=== PATIENT | male | born 1970 | race Caucasian/White ===

== ENCOUNTER 2016-07-31 14:01 | Inpatient (IN) | payer OTHER ==
[~2016-07-31] VITALS: Ht 177.8 cm; Wt 85.0 kg
[2016-07-31] MEDS ORDERED: SOD CHLORIDE 0.9% 1,000 ML IV STA ×3 (14:03→15:07)
[2016-07-31] MEDS ORDERED: CEFEPIME 2GM/50 ML (PMX) 50 ML IVPB STA (14:03)
[2016-07-31] MEDS ORDERED: VANCOMYCIN 1 GM (PMX) 250 ML IVPB ONE (14:30)
[2016-07-31] MEDS ORDERED: ONDANSETRON 4 MG INJ IV PRN ×2 (14:30→15:00)
[2016-07-31] MEDS ORDERED: ACETAMINOPHEN 325 MG TAB PO PRN (14:30)
--- NOTE | 2016-07-31 14:36 | CONS ---
Date/Time of Note Date/Time of Note DATE: 07/31/16 TIME: 14:31 Assessment/Plan Assessment/Plan Additional Assessment/Plan Sepsis Tachycardia and hypotension C2 fracture and quadriplegic Respiratory failure Decubiti -Patient with hypotension and tachycardia likely secondary to sepsis. Patient to receive aggressive IV hydration, broad-spectrum antibiotics, withhold any antihypertensives. Labs are currently pending. Consultation Date/Type/Reason Admit Date/Time Type of Consultation: cv Reason for Consultation Hypotension Hx of Present Illness This is a 46-year-old male with unfortunate history of C2 fracture and is quadriplegic, respiratory failure who presents with fevers hypotension and tachycardia. Patient with known decubiti and as per the staff, there is evidence of drainage and possible worsening infection. He is complaining of shortness of breath but denies chest pain, abdominal pain. Unable to be performed at the current time given patient's waxing mental status Past Medical History C2 fracture with quadriplegia Respiratory failure Decubiti Past Surgical History Tracheostomy PEG placement Spinal surgery Family History Significant Family History: no pertinent family hx Social History Alcohol Use: none Smoking Status: Former smoker Other Social History From halfway facility Exam/Review of Systems Vital Signs Vitals Vital Signs Date Time Temp Pulse Resp B/P Pulse Ox O2 Delivery O2 Flow Rate FiO2 07/31/16 14:22 133 20 100 35 Exam Awake but waxing mental status, no apparent distress Head: normocephalic Neck: other (C-collar, tracheostomy) Respiratory: other (Coarse breath sounds bilaterally, no wheezing) Cardiovascular: other (S1-S2 heard), regular rate and rhythm (Tachycardic) Gastrointestinal: bowel sounds, non-tender, other (No guarding), soft Extremities: edema (Trace) Medications Medications Current Medications Vancomycin HCl (Vancocin) 250 ml @ 125 mls/hr ONCE ONCE IVPB ; Start 07/31/16 at 14:30; Stop 07/31/16 at 16:29 Procedures Procedures Telemetry with sinus tachycardia in the 130s Kb Barrett DO Jul 31, 2016 14:36
[2016-07-31 14:39] LABS: AADO2 Arterial 221.6 mmHg (7.0-24.0); Arterial Base Excess 2.4 mmol/L (-3.0-3); Arterial COHb 0.3 % (0.0-3.0); Arterial Fraction of Oxyhgb 96.6 % (93.0-99.0); Arterial HCO3 25.7 mmol/L (22.0-26.0); Arterial MetHb 0.4 % (0.0-1.5); Arterial Total Hemglobin 10.3 g/dl (12.0-18.0); MODE VENT - AC
[2016-07-31] MEDS ORDERED: CALC500T91 GTB (14:51)
[2016-07-31 14:52] LABS: ADD SCAN DIFF NO
[2016-07-31] MEDS ORDERED: HYDR-902 GTB (14:52)
[2016-07-31] MEDS ORDERED: FERR220S2 GTB (14:52)
[2016-07-31] MEDS ORDERED: LEVEM SC (14:55)
--- NOTE | 2016-07-31 14:55 | ERA ---
ER Documentation Chief Complaint Date/Time DATE: 07/31/16 TIME: 14:52 Chief Complaint coming from private subacute had fever HPI Patient is a 46-year-old male with C2 quadriplegia who presents with fever. He was diaphoretic. Please note the history and physical exam is limited as the patient has difficulty with speaking due to a C2 quadriplegia. He was brought in by ambulance. He does have a wound VAC in place which has been putting out drainage. Upon review of old medical records this is the patient's first visit to the emergency department. His primary doctor is Dr. Nii Choudhary. He came from a nursing facility. ROS All systems reviewed and are negative except as per history of present illness. Medications Home Meds Reported Medications Ferrous Sulfate (Ferrous Sulfate) 220 Mg/5 Ml Solution, 325 MG GTB TID 07/31/16 Calcium Carbonate ([id number]) 500 Mg Tablet, 500 MG GTB BID, TAB 07/31/16 Allergies Allergies: Coded Allergies: No Known Allergy (Unverified , 07/31/16) PMhx/Soc C2 quadriplegia Smoking Status: Former smoker FmHx Family History: No diabetes Physical Exam Vitals Vital Signs Date Time Temp Pulse Resp B/P Pulse Ox O2 Delivery O2 Flow Rate FiO2 07/31/16 14:50 101.6 122 16 88/67 100 07/31/16 14:22 133 20 100 35 Physical Exam Const: Severe diaphoresis Head: Atraumatic Eyes: Normal Conjunctiva ENT: Normal External Ears, Nose and Mouth. Neck: Full range of motion..~ No meningismus. Resp: Clear to auscultation bilaterally Cardio: Tachycardic rate without murmur Abd: Soft, non tender, non distended. Normal bowel sounds Skin: Severe diaphoresis with pale skin Back: No midline or flank tenderness Ext: No cyanosis, or edema Neur: Awake but is a quadriplegic at baseline Results 24 hrs Laboratory Tests Test 07/31/16 14:09 Arterial Blood HCO3 25.7mmol/L Arterial Blood Base Excess 2.4mmol/L Arterial Blood Oxygen Saturation 97.3mmHG Colton Test N/A Arterial Blood Gas Puncture Site Right Brachial Arterial Blood Carboxyhemoglobin 0.3% Arterial Blood Date Drawn 07/31/2016 2:28:36 PM Arterial Blood Methemoglobin 0.4% Arterial Blood pCO2 (Temp correct) 34.8mmhg Arterial Blood pH (Temp corrected) 7.486 Arterial Blood pO2 (Temp corrected) 95.8mmHG Blood Gas A-a O2 Differential 221.6mmHg Blood Gas Actual Respiration Rate 20 Blood Gas Modality VENT - AC Blood Gas Notified Time 07/31/2016 2:39:17 PM Blood Gas Notified Whom TM Blood Gas Respiration Rate 20.0 Blood Gas Specimen Source Blood arterial Blood Gas Temperature 37.0C Blood Gas Tidal Volume 650.0mL FiO2 50.0% Oxyhemoglobin Percent 96.6% Total Hemoglobin 10.3g/dl Current Medications Medications (Trade) Dose Ordered Sig/Igor Route PRN Reason Start Time Stop Time Status Last Admin Dose Admin Cefepime HCl 50 ml @ 100 mls/hr ONCE STAT IVPB 07/31/16 14:03 07/31/16 14:32 DC Vancomycin HCl 250 ml @ 125 mls/hr ONCE ONCE IVPB 07/31/16 14:30 07/31/16 16:29 Sodium Chloride 1,000 ml @ 1,000 mls/hr Q1H STAT IV 07/31/16 14:03 07/31/16 15:02 Sodium Chloride (NS) 1,000 ml @ 1,000 mls/hr Q1H STAT IV 07/31/16 14:03 07/31/16 15:02 Ondansetron HCl (Zofran Inj) 4 mg ER BRIDGE PRN IV NAUSEA AND/OR VOMITING 07/31/16 14:30 08/01/16 14:29 Acetaminophen (Tylenol Tab) 650 mg ER BRIDGE PRN PO MILD PAIN/FEVER 07/31/16 14:30 08/01/16 14:29 Procedures/MDM EKG read by me: Rate/Rhythm: Sinus tachycardia Intervals: Normal Impression: Tachycardia without ischemia Chest x-ray is pending at this time. Admit MDM: Patient's infectious symptoms have not stabilized and the patient is at risk of rapid decompensation. The patient will be admitted for careful hydration, antibiotic therapy, and infectious source control. Severe Sepsis criteria: Infectious source: Decubitus ulcer, infected End organ damage indicated by: Respiratory failure Sepsis Management: Time of recognition of sepsis: Upon arrival Within 3 hours of recognition: Blood cultures x 2 before broad-spectrum antibiotics: Yes 30 ml/kg NS bolus Completed Initial lactate pending Repeat lactate pending Time of recognition of septic shock: No septic shock Septic Shock Assessment: Any lactic acid > 4.0 No Persistent hypotension (SBP < 90 or 40 mmHg drop, MAP < 65) despite 30 mL/kg IV fluid bolus No Volume Re-assessment for Septic Shock (post 30 ml/kg bolus): No septic shock at this time Persistent Hypotension Treatment: Comfort care No Central line Not Required Vasopressor started Not required I considered further perfusion assessment with CVP measurement, SCVO2, bedside ultrasound volume assessment, passive leg raise, trial of further fluid bolus. And proceeded with 30 ml/kg fluid bolus of NSS, broad spectrum antibiotics, and admission. Accepting Care Team Current data and ongoing care discussed. Admitting Physician: Dr. Potts as the patient has never been admitted before and Dr. Nii Choudhary is the primary doctor who admits to the panel team Helper Marble Finisher(s): Dr. Barber who knows the patient well will see the patient at the bedside Outstanding Data: Culture results and lactic acid results, electrolytes, chest x-ray Critical Care: Critical care time 35 minutes excluding all billable procedures Emergent fluid management while maintaining close respiratory support. Provision of immediate and broad-spectrum antibiotic therapy. Simultaneous assessment for possible sources in order to direct targeted therapy. Consideration for invasive and chemical support to prevent cardiopulmonary collapse. Departure Diagnosis: Primary Impression: Sacral decubitus ulcer Qualified Code: L89.159 - Sacral decubitus ulcer, unspecified pressure ulcer stage Additional Impression: Severe sepsis Condition: Serious FARHAN SUNSHINE MD Jul 31, 2016 14:55
[2016-07-31] MEDS ORDERED: INSU100V3 IJ (14:58)
[2016-07-31] MEDS ORDERED: MAGNESIUM HYDROXIDE 30ML CUP PO PRN (15:00)
[2016-07-31] MEDS ORDERED: NA PHOSPHATE/BIPHOS 133 ML ENEMA PR PRN (15:00)
[2016-07-31] MEDS ORDERED: NITROGLYCERIN (SL) 0.4 MG TAB SL PRN (15:00)
[2016-07-31] MEDS ORDERED: ALBUTEROL/IPRATROPIUM (NEB) 3 ML AMP HHN PRN (15:00)
[2016-07-31] MEDS ORDERED: VANCOMYCIN IV PER PHARMACY XX SCH (15:00)
[2016-07-31] MEDS ORDERED: hydrALAzine 20 MG INJ IV PRN (15:00)
[2016-07-31] MEDS ORDERED: DOCUSATE SODIUM 100 MG CAP PO PRN (15:00)
[2016-07-31] MEDS ORDERED: NACL 0.9% 3 ML SYG IV SCH (15:00)
[2016-07-31 15:04] LABS: INR 1.19; PROTIME 15.2 Sec (12.2-14.2); PT RATIO 1.2
[2016-07-31 15:17] LABS: BASOPHILS % 0.2 % (0.0-2.0); EOSINOPHILS # 0.1 10^3/ul (0.0-0.5); EOSINOPHILS % 0.4 % (0.0-7.0); HEMATOCRIT 28.4 % (42.0-52.0); HEMOGLOBIN 8.7 g/dl (14.0-18.0); LYMPHOCYTES # 0.8 10^3/ul (0.8-2.9); LYMPHOCYTES % 4.8 % (15.0-51.0); MEAN CORPUSCULAR HEMOGLOBIN 24.8 pg (29.0-33.0); MEAN CORPUSCULAR HGB CONC 30.6 g/dl (32.0-37.0); MEAN CORPUSCULAR VOLUME 80.9 fl (82.0-101.0); MEAN PLATELET VOLUME 10.2 fl (7.4-10.4); MONOCYTE # 0.7 10^3/ul (0.3-0.9); NEUTROPHILS % 87.9 % (39.0-77.0); PLATELET COUNT 449 10^3/UL (140-415); RED BLOOD COUNT 3.51 10^6/ul (4.70-6.10); RED CELL DISTRIBUTION WIDTH 15.9 % (11.5-14.5); WHITE BLOOD COUNT 17.1 10^3/ul (4.8-10.8)
[2016-07-31 15:19] LABS: ALBUMIN 2.6 g/dl (3.3-4.9); CHLORIDE 97 mmol/L (97-110); POTASSIUM 4.2 mmol/L (3.5-5.1); SODIUM 134 mmol/L (135-144)
[2016-07-31] MEDS ORDERED: LORA1TAB GTB (15:20)
[2016-07-31 15:21] LABS: ANION GAP 14 (8-16); BILIRUBIN,INDIRECT 0.1 mg/dl (0-1.1); BILIRUBIN,TOTAL 0.1 mg/dl (0.2-1.3); CARBON DIOXIDE 27 mmol/L (21-31); CREATININE 0.29 mg/dl (0.61-1.24)
[2016-07-31] MEDS ORDERED: MAGN400O4 (15:21)
[2016-07-31 15:22] LABS: ALANINE AMINOTRANSFERASE 106 IU/L (13-69); ALBUMIN/GLOBULIN RATIO 0.56; ALKALINE PHOSPHATASE 231 IU/L (42-121); ASPARTATE AMINO TRANSFERASE 93 IU/L (15-46); BLOOD UREA NITROGEN 11 mg/dl (7-20); CALCIUM 9.5 mg/dl (8.4-10.2); GLUCOSE 200 mg/dl (70-220); TOTAL PROTEIN 7.2 g/dl (6.1-8.1)
[2016-07-31] MEDS ORDERED: UDCOL GTB (15:22)
[2016-07-31] MEDS ORDERED: ESCI10TA GTB (15:23)
[2016-07-31] MEDS ORDERED: CLON-379 GTB (15:25)
[2016-07-31] MEDS ORDERED: ACET-2047 GTB (15:25)
[2016-07-31] MEDS ORDERED: IPRA3AMP INHALATION (15:27)
[2016-07-31] MEDS ORDERED: ZOLP10TA GTB (15:28)
--- NOTE | 2016-07-31 15:29 | RADRPT ---
PROCEDURE: Chest Radiograph. CLINICAL INDICATION: Sepsis TECHNIQUE: Single frontal chest radiograph. COMPARISON: Chest radiograph 06/29/2016 FINDINGS: A tracheostomy tube and right chest wall port infusion catheter remain in place. Heart size is with in normal limits. There are new bibasilar opacities likely representing bilateral infiltrates , no pleural effusions could also be present.. The upper lung zones are grossly clear. The bones are intact. IMPRESSION: 1. Bibasilar opacities likely reflective of infiltrates. Small effusions may also be present, whic h can be further evaluated with a lateral view of the chest. 2. Tracheostomy tube and left chest wall port infusion catheter. RPTAT: KK .Govind Villagran MD, MD Date Time Electronically viewed and signed by .Govind Villagran MD, MD on 07/31/2016 15:29 .B/
[2016-07-31] MEDS ORDERED: ASCO500C7 GTB (15:31)
[2016-07-31] MEDS ORDERED: ATOR20TA38 GTB (15:33)
[2016-07-31] MEDS ORDERED: MULT-761 GTB (15:34)
[2016-07-31] MEDS ORDERED: ZINC220C5 GTB (15:34)
[2016-07-31] MEDS ORDERED: ONDA-43 GTB (15:36)
[2016-07-31 15:39] LABS: TROPONIN-I < 0.012 ng/ml (0.00-0.12)
[2016-07-31] MEDS ORDERED: AMIN30LI GTB (15:39)
--- NOTE | 2016-07-31 15:39 | HP ---
DATE OF ADMISSION: 07/31/2016 CHIEF COMPLAINT: A 46-year-old male sent in from nursing facility for fever. HISTORY OF PRESENT ILLNESS: A 46-year-old male with past medical history of C2 quadriplegia who was recently treated for 2 months at [facility], who now comes from nursing facility with fever. Most of the information is obtained from the ER documentation and speaking with the ER staff as the patient is quadriplegic and has difficulty speaking due to his C2 quadriplegia. Apparently, he was brought in by ambulance because he had been having fever and sweating at the nursing facility [facility] today. A full review of systems could not be obtained. This apparently is his first visit to the emergency room. When he came into the ER today, he was found with a wound VAC in place, but he was showing signs of hypotension and a temperature of 101.6 and was given IV antibiotics and IV fluid b olus. The patient was also seen earlier today by cardiology team who had seen the patient in the [place] when he was at [place]. PAST MEDICAL HISTORY: As stated above. ALLERGIES: NO KNOWN DRUG ALLERGIES. HOME MEDICATIONS: 1. Ferrous sulfate 325 mg t.i.d. 2. [place] 10/325 q.6h. p.r.n. 3. Calcium carbonate 500 mg b.i.d. 4. Levemir 10 units subcutaneous q.12h. 5. Humulin R 0 to 6 units as well. PAST SURGICAL HISTORY: Per records, tracheostomy in the past, PEG placement in the past and spinal surgery in the past. Apparently wound VAC placement in the past. SOCIAL HISTORY: Former smoker, negative for alcohol use, negative for IV drug abuse. FAMILY HISTORY: Noncontributory. PHYSICAL EXAMINATION: VITAL SIGNS: Today, temperature max 101.6, pulse 122 to 133, respirations 16 to 20, blood pressure 88/67, saturating at 100% on room air. GENERAL: The patient is lying in bed, opens eyes, but otherwise lethargic. No acute distress. HEENT: Pupils equal, round, react to light. Extraocular muscles intact. NECK: Neck brace in place. LUNGS: Clear to auscultation bilaterally. CARDIOVASCULAR: Tachycardic heart rate. No rubs or gallops. ABDOMEN: Soft, nontender, nondistended. Normal bowel sounds. No rebound or guarding. MUSCULOSKELETAL: Trace pitting edema bilateral lower extremities. NEUROLOGIC: Again, unable to move extremities. LABORATORIES: CBC and BMP are pending. Coags were essentially normal, although the PTT is a little high at 45, INR 1.19. ASSESSMENT AND PLAN: A 46-year-old male sent in with fever and diaphoresis with findings of sepsis with hypotension, tachycardia, likely secondary to possible decubitus ulcer worsening infection. 1. Sepsis. Again, he has fever. He has hypotension and tachycardia. He received IV fluids in the ER. Continue aggressive IV fluid management and IV antibiotics. We will get an ID consult. May n eed to get a surgery consult as well if the decubitus ulcer is worsening. Tylenol p.r.n. pain and f diane. Check TSH, A1c, and lipid panel as well. 2. History of respiratory failure, tracheostomy dependent. We will get a pulmonary consult for di tilator management and DuoNeb p.r.n. Also IV antibiotics. Follow up chest x-ray as well. 3. G-tube feeds. Continue as tolerated for now. 4. History of C2 fracture and quadriplegia. Again, continue to monitor for now. We will get a PT consult as well. Bed changes and decubitus ulcer care as indicated. 5. Gastrointestinal prophylaxis. H2 pam. 6. Deep venous thrombosis prophylaxis. Heparin subcutaneous. Dictated By: DARON CRAVEN Conf#: [id number] DID#: [id number]
[2016-07-31] MEDS ORDERED: GLUCOSE GEL 15 GRAM TUBE BUCCAL PRN (16:30)
[2016-07-31] MEDS ORDERED: DEXTROSE 50% 50 ML SYRINGE IV PRN ×2 (16:30)
[2016-07-31] MEDS ORDERED: GLUCAGON 1 MG INJ IM PRN (16:30)
[2016-07-31] MEDS ORDERED: GLUCOSE GEL 15 GRAM TUBE PO PRN ×2 (16:30)
--- NOTE | 2016-07-31 16:37 | CONS ---
DATE OF ADMISSION: 07/31/2016 DATE OF CONSULTATION: 07/31/2016 TYPE OF CONSULTATION: Infectious Disease. REASON FOR CONSULTATION: Antibiotic management. HISTORY OF PRESENT ILLNESS: Patient is a 46-year-old male, a resident of a nursing home facility , who comes in with fever and is being seen for antibiotic management. His past problems include C 2 quadriplegia, recently treated for 2 months at [facility], now coming in the emergency room w ith fevers. The patient had fever and sweats in the nursing facility. He is found with a wound VAC in place. He is hypotensive with a temperature of 101.6, was given antibiotics and IV fluids. His past problems include: 1. Tracheostomy in the past. 2. G-tube in the past and spinal surgery, also wound VAC in the past. The wound VAC is putting out drainage. He is a patient of Dr. Choudhary. He is a former smoker. A chest x-ray was done which show ed bibasilar opacities likely reflective of infiltrates, small effusions, tracheostomy tube and left chest wall port infusion catheter, new bibasilar opacities. PAST MEDICAL HISTORY: Operations as outlined. FAMILY HISTORY: Noncontributory. SOCIAL HISTORY: He lives in a nursing home facility. He is a former smoker. He does not drink or abuse drugs. ALLERGIES: NONE TO PENICILLIN, SULFA OR FOODS. MEDICATIONS: Per chart. REVIEW OF SYSTEMS: Noncontributory. PHYSICAL EXAMINATION: GENERAL: The patient is a well-developed, chronically ill-appearing male who is awake, responsive, in no acute distress. VITAL SIGNS: T-max of 101.6, pulse 122 to 133, respirations 16 to 20, blood pressure 88/67. SKIN: Without generalized rash. HEENT: Within normal limits. NECK: He has a neck brace and a tracheostomy without significant exudate. LYMPH NODES: None palpable. CHEST: Decreased breath sounds at the bases. HEART: Tachycardic without murmur or gallop. ABDOMEN: Soft, nontender, without organosplenomegaly or masses. EXTREMITIES: Without cyanosis, clubbing. He has trace pedal edema. RECTAL AND GENITAL: Deferred. NEUROLOGIC: The patient is C2 quadriplegic, so he cannot move his extremities. He is lethargic and unable to answer commands. IMPRESSION AND PLAN: Patient appears septic, probably from pneumonitis. He has a decubitus ulcer w ith a wound VAC which also is a problem. He is tracheostomy dependent. He gets G-tube feeds. Lina ent was started on vancomycin and Zosyn. He did receive 1 dose of cefepime. His white count on adm ission was 17.1, H and H of 8.7 and 28.4, platelet count 449,000. BUN and creatinine are 11/0.29. The patient with sepsis, definite pneumonitis, urinalysis and cultures were ordered as was lactic ac id. I will dictate my findings to the hospitalist. Dictated By: ROGE LESTER MD, JD/SCOTTIE Conf#: [id number] DID#: [id number]
[2016-07-31] MEDS: PIPER-TAZO 3.375 GM IV (PMX) 100 ML IVPB SCH (18:11)
[2016-07-31] MEDS: INSULIN ASPART [NOVOLOG] 3 ML PEN SC SCH ×2 (18:39→21:00)
[2016-07-31] MEDS ORDERED: CALCIUM CARBONATE 1.25 GM TAB PO SCH ×2 (21:00→21:17)
[2016-07-31] MEDS: SOD CHLORIDE 0.9% 1,000 ML IV SCH (21:00)
[2016-07-31] MEDS: HYDROCODONE/APAP (5/325) TAB PO PRN (21:22)
[2016-07-31] MEDS: LORAZEPAM 2 MG INJ IV PRN (21:23)
[2016-07-31] MEDS ORDERED: ZOLPIDEM 5 MG TAB PO ONE (21:45)
[2016-07-31] MEDS: HEPARIN 5,000 UNIT/0.5 ML VIAL SC SCH (22:05)
[2016-07-31] MEDS: FAMOTIDINE 20 MG INJ IV SCH (22:07)
[2016-08-01] MEDS: VANCOMYCIN 1.25 GM in SOD CHLORIDE 0.9% 250 ML IVPB SCH ×2 (00:10→07:52)
[2016-08-01] MEDS: PIPER-TAZO 3.375 GM IV (PMX) 100 ML IVPB SCH ×3 (00:11→12:02)
[2016-08-01] MEDS: SOD CHLORIDE 0.9% 1,000 ML IV SCH ×3 (00:20→20:50)
[2016-08-01] MEDS: INSULIN ASPART [NOVOLOG] 3 ML PEN SC SCH ×5 (00:35→22:54)
[2016-08-01] MEDS: morphine 2 MG INJ IV PRN (03:06)
[2016-08-01] MEDS: ACETAMINOPHEN 325 MG TAB PO PRN ×3 (03:06→19:16)
[2016-08-01] MEDS: LORAZEPAM 2 MG INJ IV PRN ×3 (03:37→19:17)
[2016-08-01 05:19] LABS: ADD SCAN DIFF NO
[2016-08-01 05:27] LABS: ABNORMAL IP MESSAGE 1; BASOPHILS % 0.2 % (0.0-2.0); EOSINOPHILS # 0.1 10^3/ul (0.0-0.5); EOSINOPHILS % 0.6 % (0.0-7.0); HEMOGLOBIN 7.9 g/dl (14.0-18.0); LYMPHOCYTES # 0.4 10^3/ul (0.8-2.9); LYMPHOCYTES % 2.5 % (15.0-51.0); MEAN CORPUSCULAR HEMOGLOBIN 25.4 pg (29.0-33.0); MEAN CORPUSCULAR HGB CONC 31.6 g/dl (32.0-37.0); MEAN CORPUSCULAR VOLUME 80.4 fl (82.0-101.0); MEAN PLATELET VOLUME 9.6 fl (7.4-10.4); MONOCYTE # 0.5 10^3/ul (0.3-0.9); MONOCYTES % 3.1 % (0.0-11.0); NEUTROPHIL # 13.8 10^3/ul (1.6-7.5); NEUTROPHILS % 92.1 % (39.0-77.0); PLATELET COUNT 399 10^3/UL (140-415); RED BLOOD COUNT 3.11 10^6/ul (4.70-6.10); RED CELL DISTRIBUTION WIDTH 15.6 % (11.5-14.5)
[2016-08-01 05:36] LABS: CREATININE 0.32 mg/dl (0.61-1.24)
[2016-08-01 05:37] LABS: MAGNESIUM 1.6 mg/dl (1.7-2.5); PHOSPHORUS 3.9 mg/dl (2.5-4.9)
[2016-08-01 05:48] LABS: HDL CHOLESTEROL 10 mg/dl (27-67); TRIGLYCERIDES 117 mg/dl (0-149)
[2016-08-01 06:10] LABS: ADD UMIC YES; URINE BILIRUBIN (Dip) NEGATIVE (NEGATIVE); URINE BLOOD (Dip) 2+ (NEGATIVE); URINE COLOR YELLOW (YELLOW); URINE GLUCOSE (Dip) NEGATIVE (NEGATIVE); URINE KETONES (Dip) NEGATIVE (NEGATIVE); URINE LEUKOCYTE ESTERASE (Dip) 1+ (NEGATIVE); URINE NITRITE (Dip) POSITIVE (NEGATIVE); URINE TOTAL PROTEIN (Dip) 1+ (NEGATIVE); URINE UROBILINOGEN (Dip) 0.2 E.U./dL (0.1-1.0)
[2016-08-01 06:17] LABS: CHOLESTEROL < 50 mg/dl (100-200)
[2016-08-01 06:25] LABS: BACTERIA,URINE MODERATE
[2016-08-01] MEDS: FAMOTIDINE 20 MG INJ IV SCH ×2 (09:37→22:45)
[2016-08-01] MEDS: HEPARIN 5,000 UNIT/0.5 ML VIAL SC SCH ×2 (09:38→22:55)
[2016-08-01] MEDS ORDERED: MAGNESIUM SULFATE 1 GM/D5W 100 ML IVPB ONE (11:00)
--- NOTE | 2016-08-01 14:05 | CONS ---
Date/Time of Note Date/Time of Note DATE: 08/01/16 TIME: 14:03 Assessment/Plan Assessment/Plan Additional Assessment/Plan Septic shock C2 fracture and quadriplegic Respiratory failure Decubiti -Would continue to hold any antihypertensives given low blood pressure. Heart rate and blood pressure trend are improving. Antibiotics as per primary team. Consultation Date/Type/Reason Admit Date/Time Initial Consult Date Type of Consultation: cv 24 HR Interval Summary Free Text/Dictation Patient seen and examined. Blood pressure and heart rate has improved Exam/Review of Systems Vital Signs Vitals Vital Signs Date Time Temp Pulse Resp B/P Pulse Ox O2 Delivery O2 Flow Rate FiO2 08/01/16 12:42 101.1 100 20 115/60 98 Mechanical Ventilator 08/01/16 07:45 40 Intake and Output 07/31/16 07/31/16 08/01/16 15:00 23:00 07:00 Intake Total 2400 ml 1020 ml Output Total 1850 ml 700 ml Balance 550 ml 320 ml Exam Sleeping but opens his eyes to his name, no apparent distress Head: normocephalic Neck: other (Tracheostomy) Respiratory: other (Coarse breath sounds bilaterally scattered mild crackles, no wheezing) Cardiovascular: other (S1-S2 heard), regular rate and rhythm Gastrointestinal: bowel sounds, non-tender, other (No grimacing or guarding with palpation), soft Extremities: edema Results Result Diagram: 08/01/16 0514 08/01/16 0515 Results 24 hrs Laboratory Tests Test 07/31/16 14:09 07/31/16 14:25 07/31/16 18:20 07/31/16 20:55 Arterial Blood HCO3 25.7 Arterial Blood Base Excess 2.4 Arterial Blood Oxygen Saturation 97.3 Colton Test N/A Arterial Blood Gas Puncture Site Right Brachial Arterial Blood Carboxyhemoglobin 0.3 Arterial Blood Date Drawn 07/31/2016 2:28:36 PM Arterial Blood Methemoglobin 0.4 Arterial Blood pCO2 (Temp correct) 34.8 L Arterial Blood pH (Temp corrected) 7.486 H Arterial Blood pO2 (Temp corrected) 95.8 Blood Gas A-a O2 Differential 221.6 H Blood Gas Actual Respiration Rate 20 Blood Gas Modality VENT - AC Blood Gas Notified Time 07/31/2016 2:39:17 PM Blood Gas Notified Whom TM Blood Gas Respiration Rate 20.0 Blood Gas Specimen Source Blood arterial Blood Gas Temperature 37.0 Blood Gas Tidal Volume 650.0 FiO2 50.0 Oxyhemoglobin Percent 96.6 Total Hemoglobin 10.3 L Activated Partial Thromboplast Time 45.0 H Alanine Aminotransferase (ALT/SGPT) 106 H Albumin 2.6 L Albumin/Globulin Ratio 0.56 Alkaline Phosphatase 231 H Anion Gap 14 Aspartate Amino Transf (AST/SGOT) 93 H Basophils # 0.0 Basophils % 0.2 Blood Urea Nitrogen 11 Calcium Level 9.5 Carbon Dioxide Level 27 Chloride Level 97 Creatinine 0.29 L Direct Bilirubin 0.00 Eosinophils # 0.1 Eosinophils % 0.4 Free Thyroxine 1.55 Globulin 4.60 H Glucose Level 200 Hematocrit 28.4 L Hemoglobin 8.7 L INR International Normalized Ratio 1.19 Indirect Bilirubin 0.1 Lactic Acid Level 0.7 0.7 Lymphocytes # 0.8 Lymphocytes % 4.8 L Mean Corpuscular Hemoglobin 24.8 L Mean Corpuscular Hemoglobin Concent 30.6 L Mean Corpuscular Volume 80.9 L Mean Platelet Volume 10.2 # Monocytes # 0.7 Monocytes % 4.0 Neutrophils # 15.0 H Neutrophils % 87.9 H Nucleated Red Blood Cells # 0.0 Nucleated Red Blood Cells % 0.0 Platelet Count 449 H Potassium Level 4.2 Prothrombin Time 15.2 H Prothrombin Time Ratio 1.2 Red Blood Count 3.51 L Red Cell Distribution Width 15.9 H Sodium Level 134 L Total Bilirubin 0.1 L Total Protein 7.2 Troponin I < 0.012 White Blood Count 17.1 #H Bedside Glucose 180 Test 07/31/16 23:26 07/31/16 23:30 08/01/16 04:14 08/01/16 05:14 Lactic Acid Level 0.7 Bedside Glucose 130 Urine Amorphous Phosphates MODERATE Urine Bacteria MODERATE Urine Bilirubin NEGATIVE Urine Calcium Oxalate Crystals FEW Urine Clarity CLEAR Urine Color YELLOW Urine Glucose NEGATIVE Urine Hemoglobin 2+ H Urine Ketones NEGATIVE Urine Leukocyte Esterase 1+ H Urine Microscopic RBC 5-10 Urine Microscopic WBC 2-5 Urine Nitrite POSITIVE H Urine Specific [place] 1.025 Urine Total Protein 1+ H Urine Urobilinogen 0.2 E.U./dL Urine Yeast FEW Urine pH 6.0 Basophils # 0.0 Basophils % 0.2 Cholesterol Level < 50 L Cholesterol/HDL Ratio Eosinophils # 0.1 Eosinophils % 0.6 HDL Cholesterol 10 L Hematocrit 25.0 L Hemoglobin 7.9 L Hemoglobin A1c 6.4 H LDL Cholesterol, Calculated Lymphocytes # 0.4 L Lymphocytes % 2.5 L Mean Corpuscular Hemoglobin 25.4 L Mean Corpuscular Hemoglobin Concent 31.6 L Mean Corpuscular Volume 80.4 L Mean Platelet Volume 9.6 Monocytes # 0.5 Monocytes % 3.1 Neutrophils # 13.8 H Neutrophils % 92.1 H Nucleated Red Blood Cells # 0.0 Nucleated Red Blood Cells % 0.0 Platelet Count 399 Red Blood Count 3.11 L Red Cell Distribution Width 15.6 H Thyroid Stimulating Hormone (TSH) 3.900 Triglycerides Level 117 White Blood Count 15.0 H Test 08/01/16 05:15 08/01/16 05:33 08/01/16 11:29 Anion Gap 14 Blood Urea Nitrogen 10 Calcium Level 9.0 Carbon Dioxide Level 25 Chloride Level 103 Creatinine 0.32 L Glucose Level 159 Magnesium Level 1.6 L Phosphorus Level 3.9 Potassium Level 4.0 Sodium Level 138 Bedside Glucose 176 210 Medications Medications Current Medications Ondansetron HCl (Zofran Inj) 4 mg Q6H PRN IV NAUSEA AND/OR VOMITING; Start at 15:00 Acetaminophen (Tylenol Tab) 650 mg Q6H PRN PO PAIN LEVEL 1-3 OR FEVER Last administered on 08/01/16 12:46; Admin Dose 650 MG; Start 07/31/16 at 15:00 Acetaminophen/ Hydrocodone Bitart ([place] (5/325)) 1 tab Q6H PRN PO MODERATE PAIN LEVEL 4-6 Last administered on 07/31/16 21:22; Admin Dose 1 TAB; Start at 15:00 Morphine Sulfate (morphine) 2 mg Q4H PRN IV SEVERE PAIN LEVEL 7-10 Last administered on 08/01/16 03:06; Admin Dose 2 MG; Start 07/31/16 at 15:00 Docusate Sodium (Colace) 100 mg Q12H PRN PO CONSTIPATION; Start 07/31/16 at 15: 00 Magnesium Hydroxide (Milk Of Mag) 30 ml DAILY PRN PO CONSTIPATION; Start at 15:00 Sodium Biphosphate/ Sodium Phosphate (Fleet Enema) 133 ml DAILY PRN MO CONSTIPATION; Start 07/31/16 at 15:00 Famotidine (Pepcid Iv) 20 mg Q12 IV Last administered on 08/01/16 09:37; Admin Dose 20 MG; Start 07/31/16 at 21:00 Heparin Sodium (Porcine) (Heparin (5000 Units/0.5 ml)) 5,000 unit Q12 SC Last administered on 08/01/16 09:38; Admin Dose 5,000 UNIT; Start 07/31/16 at 21:00 Lorazepam 0.5 mg 0.5 mg Q6H PRN IV ANXIETY Last administered on 08/01/16 13:49 ; Admin Dose 0.5 MG; Start 07/31/16 at 15:00 Sodium Chloride 1,000 ml @ 100 mls/hr Q10H IV Last administered on 08/01/16 10 :08; Admin Dose 100 MLS/HR; Start 07/31/16 at 14:50 Piperacillin Sod/ Tazobactam Sod (Zosyn 3.375gm/ 100 ml (Pmx)) 100 ml @ 200 mls /hr Q6 IVPB Last administered on 08/01/16 12:02; Admin Dose 200 MLS/HR; Start 07/31/16 at 18:00 Vancomycin HCl (Vanco Iv Per Pharmacy) VANCOMYCIN PER PHARMACY NOTE XX ; Start 07/31/16 at 15:00 Hydralazine HCl (Apresoline) 10 mg Q6H PRN IV ELEVATED BLOOD PRESSURE; Start at 15:00 Nitroglycerin (Nitroglycerin (Sl Tab) 0.4 Mg) 1 tab Q5M PRN SL ANGINA; Start at 15:00 Insulin Aspart (Novolog Insulin Pen) NOVOLOG *MILD* ALGORI... Q4 SC Last administered on 08/01/16 12:05; Admin Dose 2 UNIT; Start 07/31/16 at 17:00 Miscellaneous Information 1 ea NOTE XX ; Start 07/31/16 at 16:30 Glucose (Glutose) 15 gm Q15M PRN PO DECREASED GLUCOSE; Start 07/31/16 at 16:30 Glucose (Glutose) 22.5 gm Q15M PRN PO DECREASED GLUCOSE; Start 07/31/16 at 16: 30 Dextrose (D50w Syringe) 25 ml Q15M PRN IV DECREASED GLUCOSE; Start 07/31/16 at 16:30 Dextrose (D50w Syringe) 50 ml Q15M PRN IV DECREASED GLUCOSE; Start 07/31/16 at 16:30 Glucagon (Glucagen) 1 mg Q15M PRN IM DECREASED GLUCOSE; Start 07/31/16 at 16:30 Glucose (Glutose) 15 gm Q15M PRN BUCCAL DECREASED GLUCOSE; Start 07/31/16 at 16 :30 Calcium Carbonate 1.25 gm 1.25 gm BID PO Last administered on 07/31/16 22:05; Admin Dose 1.25 GM; Start 07/31/16 at 21:17 Vancomycin HCl/ Sodium Chloride (Vancocin/NS) 250 ml @ 83.333 mls/ hr Q8H IVPB Last administered on 08/01/16 07:52; Admin Dose 83.333 MLS/HR; Start 07/31/16 at 23:00 Kb Barrett DO Aug 01, 2016 14:05
--- NOTE | 2016-08-01 14:58 | PN ---
Date/Time of Note Date/Time of Note DATE: 08/01/16 TIME: 14:56 Assessment/Plan VTE Prophylaxis VTE Prophylaxis Intervention: heparin Assessment/Plan Chief Complaint/Hosp Course ASSESSMENT AND PLAN: 46-year-old male sent in with fever and diaphoresis with findings of sepsis with hypotension, tachycardia, likely secondary to possible decubitus ulcer worsening infection. 1. Sepsis - sec to URI + decubitus ulcer infx. He presented with fever. His hypotension and tachycardia have somewhat improved. He received IV fluids in the ER. - Continue IV fluid and IV antibiotics broad spectrum. - f/u ID consult rec's. Consider surgery consult as well if the decubitus ulcer is worsening. - Tylenol p.r.n. pain and fevers. - f/u TSH, A1c, and lipid panel as well. 2. History of respiratory failure, tracheostomy dependent - f/u pulmonary consult for ventilator management and DuoNeb p.r.n. - IV antibiotics. Follow up chest x-ray as well. 3. G-tube feeds. Continue as tolerated for now. 4. History of C2 fracture and quadriplegia. - Again, continue to monitor for now. - Bed changes and decubitus ulcer care as indicated. 5. Gastrointestinal prophylaxis. H2 pam. 6. Deep venous thrombosis prophylaxis. Heparin subcutaneous. Problems: Subjective 24 Hr Interval Summary Free Text/Dictation Pt seen by wound team, CV, and ID teams, no acute events overnight. Exam/Review of Systems Vital Signs Vitals Vital Signs Date Time Temp Pulse Resp B/P Pulse Ox O2 Delivery O2 Flow Rate FiO2 08/01/16 14:18 99.0 117 128/73 98 Mechanical Ventilator 08/01/16 12:42 20 08/01/16 07:45 40 Intake and Output 07/31/16 07/31/16 08/01/16 15:00 23:00 07:00 Intake Total 2400 ml 1020 ml Output Total 1850 ml 700 ml Balance 550 ml 320 ml Exam GENERAL: The patient is lying in bed, opens eyes, but otherwise lethargic. No acute distress. HEENT: Pupils equal, round, react to light. Extraocular muscles intact. NECK: Neck brace in place. LUNGS: Clear to auscultation bilaterally. CARDIOVASCULAR: S1 S2 heard, No rubs or gallops. ABDOMEN: Soft, nontender, nondistended. Normal bowel sounds. No rebound or guarding. MUSCULOSKELETAL: Trace pitting edema bilateral lower extremities. NEUROLOGIC: Again, unable to move extremities. Results Result Diagram: 08/01/16 0514 08/01/16 0515 Results 24 hrs Laboratory Tests Test 07/31/16 18:20 07/31/16 20:55 07/31/16 23:26 07/31/16 23:30 Bedside Glucose 180 130 Lactic Acid Level 0.7 0.7 Test 08/01/16 04:14 08/01/16 05:14 08/01/16 05:15 08/01/16 05:33 Urine Amorphous Phosphates MODERATE Urine Bacteria MODERATE Urine Bilirubin NEGATIVE Urine Calcium Oxalate Crystals FEW Urine Clarity CLEAR Urine Color YELLOW Urine Glucose NEGATIVE Urine Hemoglobin 2+ H Urine Ketones NEGATIVE Urine Leukocyte Esterase 1+ H Urine Microscopic RBC 5-10 Urine Microscopic WBC 2-5 Urine Nitrite POSITIVE H Urine Specific [place] 1.025 Urine Total Protein 1+ H Urine Urobilinogen 0.2 E.U./dL Urine Yeast FEW Urine pH 6.0 Basophils # 0.0 Basophils % 0.2 Cholesterol Level < 50 L Cholesterol/HDL Ratio Eosinophils # 0.1 Eosinophils % 0.6 HDL Cholesterol 10 L Hematocrit 25.0 L Hemoglobin 7.9 L Hemoglobin A1c 6.4 H LDL Cholesterol, Calculated Lymphocytes # 0.4 L Lymphocytes % 2.5 L Mean Corpuscular Hemoglobin 25.4 L Mean Corpuscular Hemoglobin Concent 31.6 L Mean Corpuscular Volume 80.4 L Mean Platelet Volume 9.6 Monocytes # 0.5 Monocytes % 3.1 Neutrophils # 13.8 H Neutrophils % 92.1 H Nucleated Red Blood Cells # 0.0 Nucleated Red Blood Cells % 0.0 Platelet Count 399 Red Blood Count 3.11 L Red Cell Distribution Width 15.6 H Thyroid Stimulating Hormone (TSH) 3.900 Triglycerides Level 117 White Blood Count 15.0 H Anion Gap 14 Blood Urea Nitrogen 10 Calcium Level 9.0 Carbon Dioxide Level 25 Chloride Level 103 Creatinine 0.32 L Glucose Level 159 Magnesium Level 1.6 L Phosphorus Level 3.9 Potassium Level 4.0 Sodium Level 138 Bedside Glucose 176 Test 08/01/16 11:29 Bedside Glucose 210 Medications Medications Current Medications Ondansetron HCl (Zofran Inj) 4 mg Q6H PRN IV NAUSEA AND/OR VOMITING; Start at 15:00 Acetaminophen (Tylenol Tab) 650 mg Q6H PRN PO PAIN LEVEL 1-3 OR FEVER Last administered on 08/01/16 12:46; Admin Dose 650 MG; Start 07/31/16 at 15:00 Acetaminophen/ Hydrocodone Bitart ([place] (5/325)) 1 tab Q6H PRN PO MODERATE PAIN LEVEL 4-6 Last administered on 07/31/16 21:22; Admin Dose 1 TAB; Start at 15:00 Morphine Sulfate (morphine) 2 mg Q4H PRN IV SEVERE PAIN LEVEL 7-10 Last administered on 08/01/16 03:06; Admin Dose 2 MG; Start 07/31/16 at 15:00 Docusate Sodium (Colace) 100 mg Q12H PRN PO CONSTIPATION; Start 07/31/16 at 15: 00 Magnesium Hydroxide (Milk Of Mag) 30 ml DAILY PRN PO CONSTIPATION; Start at 15:00 Sodium Biphosphate/ Sodium Phosphate (Fleet Enema) 133 ml DAILY PRN [place] CONSTIPATION; Start 07/31/16 at 15:00 Famotidine (Pepcid Iv) 20 mg Q12 IV Last administered on 08/01/16 09:37; Admin Dose 20 MG; Start 07/31/16 at 21:00 Heparin Sodium (Porcine) (Heparin (5000 Units/0.5 ml)) 5,000 unit Q12 SC Last administered on 08/01/16 09:38; Admin Dose 5,000 UNIT; Start 07/31/16 at 21:00 Lorazepam 0.5 mg 0.5 mg Q6H PRN IV ANXIETY Last administered on 08/01/16 13:49 ; Admin Dose 0.5 MG; Start 07/31/16 at 15:00 Sodium Chloride 1,000 ml @ 100 mls/hr Q10H IV Last administered on 08/01/16 10 :08; Admin Dose 100 MLS/HR; Start 07/31/16 at 14:50 Piperacillin Sod/ Tazobactam Sod (Zosyn 3.375gm/ 100 ml (Pmx)) 100 ml @ 200 mls /hr Q6 IVPB Last administered on 08/01/16 12:02; Admin Dose 200 MLS/HR; Start 07/31/16 at 18:00 Vancomycin HCl (Vanco Iv Per Pharmacy) VANCOMYCIN PER PHARMACY NOTE XX ; Start 07/31/16 at 15:00 Hydralazine HCl (Apresoline) 10 mg Q6H PRN IV ELEVATED BLOOD PRESSURE; Start at 15:00 Nitroglycerin (Nitroglycerin (Sl Tab) 0.4 Mg) 1 tab Q5M PRN SL ANGINA; Start at 15:00 Insulin Aspart (Novolog Insulin Pen) NOVOLOG *MILD* ALGORI... Q4 SC Last administered on 08/01/16 12:05; Admin Dose 2 UNIT; Start 07/31/16 at 17:00 Miscellaneous Information 1 ea NOTE XX ; Start 07/31/16 at 16:30 Glucose (Glutose) 15 gm Q15M PRN PO DECREASED GLUCOSE; Start 07/31/16 at 16:30 Glucose (Glutose) 22.5 gm Q15M PRN PO DECREASED GLUCOSE; Start 07/31/16 at 16: 30 Dextrose (D50w Syringe) 25 ml Q15M PRN IV DECREASED GLUCOSE; Start 07/31/16 at 16:30 Dextrose (D50w Syringe) 50 ml Q15M PRN IV DECREASED GLUCOSE; Start 07/31/16 at 16:30 Glucagon (Glucagen) 1 mg Q15M PRN IM DECREASED GLUCOSE; Start 07/31/16 at 16:30 Glucose (Glutose) 15 gm Q15M PRN BUCCAL DECREASED GLUCOSE; Start 07/31/16 at 16 :30 Calcium Carbonate 1.25 gm 1.25 gm BID PO Last administered on 07/31/16 22:05; Admin Dose 1.25 GM; Start 07/31/16 at 21:17 Vancomycin HCl/ Sodium Chloride (Vancocin/NS) 250 ml @ 83.333 mls/ hr Q8H IVPB Last administered on 08/01/16 07:52; Admin Dose 83.333 MLS/HR; Start 07/31/16 at 23:00 DARON FARRELL Aug 01, 2016 14:58
[2016-08-01] MEDS ORDERED: VANCOMYCIN 1.5 GM in SOD CHLORIDE 0.9% 250 ML IVPB SCH (17:00)
[2016-08-01 18:00] VITALS: TEMP 100.2
[2016-08-01] MEDS: HYDROCODONE/APAP (5/325) TAB PO PRN (19:16)
[2016-08-01 20:00] VITALS: RESP 20
[2016-08-01 20:38] VITALS: PULSE 108
[2016-08-01 20:40] VITALS: BP 95/51; RESP 17
[2016-08-01 22:33] VITALS: RESP 16; RESP 20
[2016-08-01 22:50] VITALS: Ht 177.8 cm; Wt 85.0 kg
[2016-08-01] MEDS: CA CARBONATE (250 MG/ML) 5ML CUP GTB SCH (23:16)
[2016-08-01] MEDS: SODIUM HYPOCHLORITE 0.125% 473 ML BTL IRR SCH (23:16)
[2016-08-02] VITALS (26 sets, daily range): BP systolic 97–139; BP diastolic 57–83; PULSE 87–133; RESP 16–20
[2016-08-02] MEDS: PIPER-TAZO 3.375 GM IV (PMX) 100 ML IVPB SCH ×4 (00:11→18:53)
[2016-08-02] MEDS: VANCOMYCIN 1.5 GM in SOD CHLORIDE 0.9% 250 ML IVPB SCH ×3 (00:57→17:12)
[2016-08-02] MEDS: morphine 2 MG INJ IV PRN ×2 (00:58→20:59)
[2016-08-02] MEDS: LORAZEPAM 2 MG INJ IV PRN ×2 (02:13→22:29)
[2016-08-02] MEDS: INSULIN ASPART [NOVOLOG] 3 ML PEN SC SCH ×6 (02:22→21:00)
[2016-08-02] MEDS: HYDROCODONE/APAP (5/325) TAB PEG PRN (02:46)
[2016-08-02] MEDS: SOD CHLORIDE 0.9% 1,000 ML IV SCH ×3 (06:12→16:50)
[2016-08-02 07:03] LABS: ADD SCAN DIFF NO
[2016-08-02 07:14] LABS: ABNORMAL IP MESSAGE 1; BASOPHILS % 0.2 % (0.0-2.0); EOSINOPHILS # 0.1 10^3/ul (0.0-0.5); EOSINOPHILS % 1.1 % (0.0-7.0); HEMATOCRIT 23.5 % (42.0-52.0); HEMOGLOBIN 7.4 g/dl (14.0-18.0); LYMPHOCYTES # 0.6 10^3/ul (0.8-2.9); LYMPHOCYTES % 4.6 % (15.0-51.0); MEAN CORPUSCULAR HEMOGLOBIN 25.7 pg (29.0-33.0); MEAN CORPUSCULAR HGB CONC 31.5 g/dl (32.0-37.0); MEAN CORPUSCULAR VOLUME 81.6 fl (82.0-101.0); MEAN PLATELET VOLUME 10.1 fl (7.4-10.4); MONOCYTE # 0.6 10^3/ul (0.3-0.9); MONOCYTES % 4.9 % (0.0-11.0); NEUTROPHILS % 87.6 % (39.0-77.0); PLATELET COUNT 409 10^3/UL (140-415); RED BLOOD COUNT 2.88 10^6/ul (4.70-6.10); RED CELL DISTRIBUTION WIDTH 15.8 % (11.5-14.5); WHITE BLOOD COUNT 12.5 10^3/ul (4.8-10.8)
[2016-08-02 07:15] LABS: POTASSIUM 3.5 mmol/L (3.5-5.1)
[2016-08-02 07:18] LABS: CALCIUM 8.8 mg/dl (8.4-10.2); CREATININE 0.27 mg/dl (0.61-1.24)
[2016-08-02] MEDS ORDERED: CA CARBONATE (250 MG/ML) 5ML CUP GTB SCH (09:00)
[2016-08-02] MEDS ORDERED: CALCIUM CARBONATE 1.25 GM TAB PEG SCH (09:00)
[2016-08-02] MEDS: HEPARIN 5,000 UNIT/0.5 ML VIAL SC SCH (09:00)
[2016-08-02] MEDS: SODIUM HYPOCHLORITE 0.125% 473 ML BTL IRR SCH ×2 (09:00→21:31)
[2016-08-02] MEDS: FAMOTIDINE 20 MG INJ IV SCH ×2 (09:00→21:31)
[2016-08-02] MEDS: CA CARBONATE (250 MG/ML) 5ML CUP GTB SCH ×2 (09:00→21:30)
[2016-08-02] MEDS: ACETAMINOPHEN 325 MG TAB PO PRN ×2 (09:32→22:19)
--- NOTE | 2016-08-02 10:21 | CONS ---
Date/Time of Note Date/Time of Note DATE: 08/02/16 TIME: 10:17 Assessment/Plan Assessment/Plan Additional Assessment/Plan Ventilator settings; AC of 20, tidal volume 650, PEEP of 5, currently on 40% FiO2. Assessment recommendations; 1. Patient admitted for UTI and sepsis, currently on appropriate antibiotic regimen. 2. History of C2 spinal fracture causing quadriplegia, patient remains ventilator dependent. 3. Chest x-ray showing bibasilar infiltrate/atelectasis. Continue current treatment. Obtain a follow-up chest x-ray. Consultation Date/Type/Reason Admit Date/Time Date of Consultation: Aug 02, 2016 Type of Consultation: Pulmonary Reason for Consultation Pulmonary consultation obtained for evaluation of chronic respiratory failure patient admitted with sepsis from UTI. Next History of present illness; patient is a 46-year-old white male who was admitted on the of last month transferred [facility] with complaints of fever. Upon evaluation patient was diagnosed with UTI with sepsis. Started on broad-spectrum antibiotic coverage. There has been interval improvement. She has a history of quadriplegia due to C2 spinal injury. Remains ventilator dependent. By the time I saw the patient is completely awake alert able to verbalize somewhat. Denies any abdominal pain. Any vomiting. Denies any shortness of breath. Past medical history; history of spinal fracture resulting in C2 injury causing quadriplegia. Patient chronically ventilator dependent. He status post G-tube and tracheostomy. Medications; were reviewed. Allergies; none. Social history; patient does have a history of smoking in the past. Family history; noncontributory. Occupational history; patient on disability. Review of systems; limited review of systems could be obtained. Patient denies any headache, any chest pain, shortness of breath, abdominal pain, vomiting. Next General exam; young male, on ventilator via tracheostomy currently in no distress. Awake and alert. Social History Alcohol Use: none Smoking Status: Former smoker Exam/Review of Systems Vital Signs Vitals Vital Signs Date Time Temp Pulse Resp B/P Pulse Ox O2 Delivery O2 Flow Rate FiO2 08/02/16 09:54 122 08/02/16 07:58 98.6 20 97/71 98 08/02/16 07:40 40 08/01/16 18:00 Mechanical Ventilator Intake and Output 08/01/16 08/01/16 08/02/16 15:00 23:00 07:00 Intake Total 1965 ml Output Total 1000 ml Balance 965 ml Exam H EENT examination; neck is in a soft collar. Colostomy in place with clean insertion site. Pharynx is clear. Patient has good dentition. Pupils are midsize and reactive to light. No neck masses. Chest examination; clear to auscultation bilaterally. S1-S2 audible, no murmurs. Regular rhythm. Abdomen examination; soft, G-tube in place. No organomegaly. Bowel sounds audible. Extremity examination; no peripheral edema. VP SECURITY examination; patient has a quadriplegia. Results Result Diagram: 08/02/16 0610 08/02/16 0610 Results 24 hrs Laboratory Tests Test 08/01/16 11:29 08/01/16 14:05 08/01/16 19:27 08/01/16 22:51 Bedside Glucose 210 166 191 Vancomycin Level Trough 9.7 L Test 08/02/16 02:18 08/02/16 05:20 08/02/16 06:10 08/02/16 07:44 Bedside Glucose 158 159 168 Anion Gap 13 Basophils # 0.0 Basophils % 0.2 Blood Urea Nitrogen 11 Calcium Level 8.8 Carbon Dioxide Level 26 Chloride Level 105 Creatinine 0.27 L Eosinophils # 0.1 Eosinophils % 1.1 Glucose Level 145 Hematocrit 23.5 L Hemoglobin 7.4 L Lymphocytes # 0.6 L Lymphocytes % 4.6 L Mean Corpuscular Hemoglobin 25.7 L Mean Corpuscular Hemoglobin Concent 31.5 L Mean Corpuscular Volume 81.6 L Mean Platelet Volume 10.1 Monocytes # 0.6 Monocytes % 4.9 Neutrophils # 11.0 H Neutrophils % 87.6 H Nucleated Red Blood Cells # 0.0 Nucleated Red Blood Cells % 0.0 Platelet Count 409 Potassium Level 3.5 Red Blood Count 2.88 L Red Cell Distribution Width 15.8 H Sodium Level 140 White Blood Count 12.5 H Medications Medications Current Medications Ondansetron HCl (Zofran Inj) 4 mg Q6H PRN IV NAUSEA AND/OR VOMITING; Start at 15:00 Acetaminophen (Tylenol Tab) 650 mg Q6H PRN PO PAIN LEVEL 1-3 OR FEVER Last administered on 08/02/16 09:32; Admin Dose 650 MG; Start 07/31/16 at 15:00 Morphine Sulfate (morphine) 2 mg Q4H PRN IV SEVERE PAIN LEVEL 7-10 Last administered on 08/02/16 00:58; Admin Dose 2 MG; Start 07/31/16 at 15:00 Docusate Sodium (Colace) 100 mg Q12H PRN PO CONSTIPATION; Start 07/31/16 at 15: 00 Magnesium Hydroxide (Milk Of Mag) 30 ml DAILY PRN PO CONSTIPATION; Start at 15:00 Sodium Biphosphate/ Sodium Phosphate (Fleet Enema) 133 ml DAILY PRN [place] CONSTIPATION; Start 07/31/16 at 15:00 Famotidine (Pepcid Iv) 20 mg Q12 IV Last administered on 08/01/16 22:45; Admin Dose 20 MG; Start 07/31/16 at 21:00 Heparin Sodium (Porcine) 5000 unit 5,000 unit Q12 SC Last administered on 22:55; Admin Dose 5,000 UNIT; Start 07/31/16 at 21:00 Sodium Chloride 1,000 ml @ 100 mls/hr Q10H IV Last administered on 08/02/16 06 :12; Admin Dose 100 MLS/HR; Start 07/31/16 at 14:50 Piperacillin Sod/ Tazobactam Sod (Zosyn 3.375gm/ 100 ml (Pmx)) 100 ml @ 200 mls /hr Q6 IVPB Last administered on 08/02/16 05:15; Admin Dose 200 MLS/HR; Start 07/31/16 at 18:00 Vancomycin HCl (Vanco Iv Per Pharmacy) VANCOMYCIN PER PHARMACY NOTE XX ; Start 07/31/16 at 15:00 Hydralazine HCl (Apresoline) 10 mg Q6H PRN IV ELEVATED BLOOD PRESSURE; Start at 15:00 Nitroglycerin (Nitroglycerin (Sl Tab) 0.4 Mg) 1 tab Q5M PRN SL ANGINA; Start at 15:00 Insulin Aspart (Novolog Insulin Pen) NOVOLOG *MILD* ALGORI... Q4 SC Last administered on 08/02/16 05:23; Admin Dose 1 UNIT; Start 07/31/16 at 17:00 Miscellaneous Information 1 ea NOTE XX ; Start 07/31/16 at 16:30 Glucose (Glutose) 15 gm Q15M PRN PO DECREASED GLUCOSE; Start 07/31/16 at 16:30 Glucose (Glutose) 22.5 gm Q15M PRN PO DECREASED GLUCOSE; Start 07/31/16 at 16: 30 Dextrose (D50w Syringe) 25 ml Q15M PRN IV DECREASED GLUCOSE; Start 07/31/16 at 16:30 Dextrose (D50w Syringe) 50 ml Q15M PRN IV DECREASED GLUCOSE; Start 07/31/16 at 16:30 Glucagon (Glucagen) 1 mg Q15M PRN IM DECREASED GLUCOSE; Start 07/31/16 at 16:30 Glucose (Glutose) 15 gm Q15M PRN BUCCAL DECREASED GLUCOSE; Start 07/31/16 at 16 :30 Sodium Hypochlorite ([place] (1/4 Strength)) 1 applic BID IRR Last administered on 08/01/16 23:16; Admin Dose 1 APPLIC; Start 08/01/16 at 21:00 Calcium Carbonate (Ca Carbonate) 1,250 mg BID GTB Last administered on 23:16; Admin Dose 1,250 MG; Start 08/01/16 at 22:30 Acetaminophen/ Hydrocodone Bitart ([place] (5/325)) 1 tab Q4H PRN PEG MODERATE PAIN LEVEL 4-6 Last administered on 08/02/16 02:46; Admin Dose 1 TAB; Start 08/02 at 00:00 Lorazepam 0.5 mg 0.5 mg Q4H PRN IV ANXIETY Last administered on 08/02/16 02:13 ; Admin Dose 0.5 MG; Start 08/02/16 at 00:00 Vancomycin HCl/ Sodium Chloride (Vancocin/NS) 250 ml @ 83.333 mls/ hr Q8H IVPB Last administered on 08/02/16 10:11; Admin Dose 83.333 MLS/HR; Start 08/02/16 at 01:00 Zolpidem Tartrate (Ambien) 10 mg HS PRN PEG INSOMNIA; Start 08/02/16 at 03:30 Influenza Virus Vaccine (Fluzone) 0.5 ml ONCE ONCE IM* ; Start 08/04/16 at 09:00 ; Stop 08/04/16 at 09:01 ALISSON ARRIOLA 2, 2017 10:21
--- NOTE | 2016-08-02 11:21 | PN ---
Date/Time of Note Date/Time of Note DATE: 08/02/16 TIME: 11:17 Assessment/Plan VTE Prophylaxis VTE Prophylaxis Intervention: heparin Lines/Catheters IV [facility] Type [facility]from [facility]): Central Line Central line still needed: Yes Urinary Cath still in place: Yes Reason Cath still needed: urinary retention Assessment/Plan Chief Complaint/Hosp Course ASSESSMENT AND PLAN: 46-year-old male sent in with fever and diaphoresis with findings of sepsis with hypotension, tachycardia, likely secondary to possible decubitus ulcer worsening infection. 1. Sepsis - sec to URI + decubitus ulcer infx. He presented with fever, still present His hypotension and tachycardia have somewhat improved. He received IV fluids in the ER. - Continue IV fluid and IV antibiotics broad spectrum. - f/u ID consult rec's. After discussing with wound nurse, will ask for surgery consult as well for possible debridement. - Tylenol p.r.n. pain and fevers. 2. History of respiratory failure, tracheostomy dependent - f/u pulmonary consult for ventilator management and DuoNeb p.r.n. - IV antibiotics. Follow up chest x-ray as well. 3. G-tube feeds. Continue as tolerated for now. 4. History of C2 fracture and quadriplegia. - Again, continue to monitor for now. - Bed changes and decubitus ulcer care as indicated. 5. Gastrointestinal prophylaxis. H2 pam. 6. Deep venous thrombosis prophylaxis. Heparin subcutaneous. Problems: Subjective 24 Hr Interval Summary Free Text/Dictation Pt had fever again this AM. Seen by pulm team. Exam/Review of Systems Vital Signs Vitals Vital Signs Date Time Temp Pulse Resp B/P Pulse Ox O2 Delivery O2 Flow Rate FiO2 08/02/16 10:45 133 08/02/16 09:20 20 100 40 08/02/16 07:58 98.6 97/71 08/01/16 18:00 Mechanical Ventilator Intake and Output 08/01/16 08/01/16 08/02/16 15:00 23:00 07:00 Intake Total 1965 ml Output Total 1000 ml Balance 965 ml Exam GENERAL: The patient is lying in bed, no acute distress. HEENT: Pupils equal, round, react to light. Extraocular muscles intact. NECK: Neck brace in place. LUNGS: Clear to auscultation bilaterally. CARDIOVASCULAR: S1 S2 heard, No rubs or gallops. ABDOMEN: Soft, nontender, nondistended. Normal bowel sounds. No rebound or guarding. MUSCULOSKELETAL: Trace pitting edema bilateral lower extremities. NEUROLOGIC: Again, unable to move extremities. Results Result Diagram: 08/02/16 0610 08/02/16 0610 Results 24 hrs Laboratory Tests Test 08/01/16 11:29 08/01/16 14:05 08/01/16 19:27 08/01/16 22:51 Bedside Glucose 210 166 191 Vancomycin Level Trough 9.7 L Test 08/02/16 02:18 08/02/16 05:20 08/02/16 06:10 08/02/16 07:44 Bedside Glucose 158 159 168 Anion Gap 13 Basophils # 0.0 Basophils % 0.2 Blood Urea Nitrogen 11 Calcium Level 8.8 Carbon Dioxide Level 26 Chloride Level 105 Creatinine 0.27 L Eosinophils # 0.1 Eosinophils % 1.1 Glucose Level 145 Hematocrit 23.5 L Hemoglobin 7.4 L Lymphocytes # 0.6 L Lymphocytes % 4.6 L Mean Corpuscular Hemoglobin 25.7 L Mean Corpuscular Hemoglobin Concent 31.5 L Mean Corpuscular Volume 81.6 L Mean Platelet Volume 10.1 Monocytes # 0.6 Monocytes % 4.9 Neutrophils # 11.0 H Neutrophils % 87.6 H Nucleated Red Blood Cells # 0.0 Nucleated Red Blood Cells % 0.0 Platelet Count 409 Potassium Level 3.5 Red Blood Count 2.88 L Red Cell Distribution Width 15.8 H Sodium Level 140 White Blood Count 12.5 H Medications Medications Current Medications Ondansetron HCl (Zofran Inj) 4 mg Q6H PRN IV NAUSEA AND/OR VOMITING; Start at 15:00 Acetaminophen (Tylenol Tab) 650 mg Q6H PRN PO PAIN LEVEL 1-3 OR FEVER Last administered on 08/02/16 09:32; Admin Dose 650 MG; Start 07/31/16 at 15:00 Morphine Sulfate (morphine) 2 mg Q4H PRN IV SEVERE PAIN LEVEL 7-10 Last administered on 08/02/16 00:58; Admin Dose 2 MG; Start 07/31/16 at 15:00 Docusate Sodium (Colace) 100 mg Q12H PRN PO CONSTIPATION; Start 07/31/16 at 15: 00 Magnesium Hydroxide (Milk Of Mag) 30 ml DAILY PRN PO CONSTIPATION; Start at 15:00 Sodium Biphosphate/ Sodium Phosphate (Fleet Enema) 133 ml DAILY PRN [place] CONSTIPATION; Start 07/31/16 at 15:00 Famotidine 20 mg 20 mg Q12 IV Last administered on 08/01/16 22:45; Admin Dose 20 MG; Start 07/31/16 at 21:00 Sodium Chloride 1,000 ml @ 100 mls/hr Q10H IV Last administered on 08/02/16 06 :12; Admin Dose 100 MLS/HR; Start 07/31/16 at 14:50 Piperacillin Sod/ Tazobactam Sod (Zosyn 3.375gm/ 100 ml (Pmx)) 100 ml @ 200 mls /hr Q6 IVPB Last administered on 08/02/16 05:15; Admin Dose 200 MLS/HR; Start 07/31/16 at 18:00 Vancomycin HCl (Vanco Iv Per Pharmacy) VANCOMYCIN PER PHARMACY NOTE XX ; Start 07/31/16 at 15:00 Hydralazine HCl (Apresoline) 10 mg Q6H PRN IV ELEVATED BLOOD PRESSURE; Start at 15:00 Nitroglycerin (Nitroglycerin (Sl Tab) 0.4 Mg) 1 tab Q5M PRN SL ANGINA; Start at 15:00 Insulin Aspart (Novolog Insulin Pen) NOVOLOG *MILD* ALGORI... Q4 SC Last administered on 08/02/16 05:23; Admin Dose 1 UNIT; Start 07/31/16 at 17:00 Miscellaneous Information 1 ea NOTE XX ; Start 07/31/16 at 16:30 Glucose (Glutose) 15 gm Q15M PRN PO DECREASED GLUCOSE; Start 07/31/16 at 16:30 Glucose (Glutose) 22.5 gm Q15M PRN PO DECREASED GLUCOSE; Start 07/31/16 at 16: 30 Dextrose (D50w Syringe) 25 ml Q15M PRN IV DECREASED GLUCOSE; Start 07/31/16 at 16:30 Dextrose (D50w Syringe) 50 ml Q15M PRN IV DECREASED GLUCOSE; Start 07/31/16 at 16:30 Glucagon (Glucagen) 1 mg Q15M PRN IM DECREASED GLUCOSE; Start 07/31/16 at 16:30 Glucose (Glutose) 15 gm Q15M PRN BUCCAL DECREASED GLUCOSE; Start 07/31/16 at 16 :30 Sodium Hypochlorite (Dakin'S (1/4 Strength)) 1 applic BID IRR Last administered on 08/01/16 23:16; Admin Dose 1 APPLIC; Start 08/01/16 at 21:00 Calcium Carbonate (Ca Carbonate) 1,250 mg BID GTB Last administered on 23:16; Admin Dose 1,250 MG; Start 08/01/16 at 22:30 Acetaminophen/ Hydrocodone Bitart ([place] (5/325)) 1 tab Q4H PRN PEG MODERATE PAIN LEVEL 4-6 Last administered on 08/02/16 02:46; Admin Dose 1 TAB; Start 08/02 at 00:00 Lorazepam 0.5 mg 0.5 mg Q4H PRN IV ANXIETY Last administered on 08/02/16 02:13 ; Admin Dose 0.5 MG; Start 08/02/16 at 00:00 Vancomycin HCl/ Sodium Chloride (Vancocin/NS) 250 ml @ 83.333 mls/ hr Q8H IVPB Last administered on 08/02/16 10:11; Admin Dose 83.333 MLS/HR; Start 08/02/16 at 01:00 Zolpidem Tartrate (Ambien) 10 mg HS PRN PEG INSOMNIA; Start 08/02/16 at 03:30 Influenza Virus Vaccine (Fluzone) 0.5 ml ONCE ONCE IM* ; Start 08/04/16 at 09:00 ; Stop 08/04/16 at 09:01 DARON FARRELL Aug 02, 2016 11:21
--- NOTE | 2016-08-02 12:39 | PN ---
DATE: 08/02/2016 SUBJECTIVE: The patient is alert, lying comfortably in bed with low-grade fevers. VITAL SIGNS: T-max yesterday was 101.1. T current 99.7, WBC today 12.5, H and H 7.4 and 23.5, plat elets 409, neutrophils 87.6. BUN 11, creatinine 0.27. INDWELLINGS: Trach, PEG, [place]. MICROBIOLOGY: Blood cultures negative. Urine culture growing [place] albicans and gram-negative ro ds. ANTIMICROBIALS: The patient is on: 1. IV vancomycin. 2. Zosyn. PHYSICAL EXAMINATION: GENERAL: This is a well-nourished, well-developed, middle-aged man who is alert, in no distress. HEENT: Head atraumatic, normocephalic. Sclerae anicteric. Buccal mucosa dry. NECK: [place] collar and tracheostomy. CHEST: [place] symmetrical. Breath sounds diminished to bases. HEART: S1, S2. ABDOMEN: Soft. Bowel tones present. EXTREMITIES: Without cyanosis. Bilateral edema, left upper extremity more edematous left than righ t. SKIN: The patient has multiple deep, unstageable decubitus on his buttock and hips, he also has pre ssure sores on the back of his head. ASSESSMENT: 1. Sepsis. 2. Urinary tract infection. 3. Healthcare-associated pneumonia. 4. Multiple unstageable decubitus. 5. History of chronic obstructive Clostridium difficile colitis. 6. Left upper extremity edema, rule out deep venous thrombosis. 7. Status post C2 injury. PLAN: We are going to start him on Diflucan and probiotics. Check left upper extremity ultrasound. Continue vancomycin, Zosyn and swab nares for MRSA and send sputum culture. Consider surgical ev aluation as he had debridement of his wounds in the past for wound management. Dictated By: LESLIE FERRARO RESEARCH GEOLOGIST for [employer] Conf#: [id number] DID#: [id number]
[2016-08-02] MEDS: LACTOBACILLUS CHEW TAB PO SCH ×2 (13:12→21:30)
[2016-08-02] MEDS: FLUCONAZOLE 100 MG TAB PO SCH (13:12)
--- NOTE | 2016-08-02 13:30 | CONS ---
Date/Time of Note Date/Time of Note DATE: 08/02/16 TIME: 13:28 Assessment/Plan Assessment/Plan Additional Assessment/Plan Septic shock C2 fracture and quadriplegic Respiratory failure Decubiti -Patient with episodes of tachycardia likely related to fever and sepsis. Antibiotics as per infectious disease. No need for AV dong blocking agents at the current time. Consultation Date/Type/Reason Admit Date/Time Jul 31, 2016 at 14:20 Type of Consultation: cv 24 HR Interval Summary Free Text/Dictation Patient feeling better, denies shortness of breath Exam/Review of Systems Vital Signs Vitals Vital Signs Date Time Temp Pulse Resp B/P Pulse Ox O2 Delivery O2 Flow Rate FiO2 08/02/16 12:00 120 08/02/16 11:42 99.3 20 115/61 99 08/02/16 11:32 40 08/01/16 18:00 Mechanical Ventilator Intake and Output 08/01/16 08/01/16 08/02/16 15:00 23:00 07:00 Intake Total 1965 ml Output Total 1000 ml Balance 965 ml Exam Sleeping but arousable, able to give history, no apparent distress Head: normocephalic Neck: other (Tracheostomy) Respiratory: other (Coarse breath sounds bilaterally, no wheezing) Cardiovascular: other (S1-S2 heard), regular rate and rhythm Gastrointestinal: bowel sounds, non-tender, other (No guarding), soft Extremities: edema Results Result Diagram: 08/02/16 0610 08/02/16 0610 Results 24 hrs Laboratory Tests Test 08/01/16 14:05 08/01/16 19:27 08/01/16 22:51 08/02/16 02:18 Vancomycin Level Trough 9.7 L Bedside Glucose 166 191 158 Test 08/02/16 05:20 08/02/16 06:10 08/02/16 07:44 08/02/16 12:13 Bedside Glucose 159 168 213 Anion Gap 13 Basophils # 0.0 Basophils % 0.2 Blood Urea Nitrogen 11 Calcium Level 8.8 Carbon Dioxide Level 26 Chloride Level 105 Creatinine 0.27 L Eosinophils # 0.1 Eosinophils % 1.1 Glucose Level 145 Hematocrit 23.5 L Hemoglobin 7.4 L Lymphocytes # 0.6 L Lymphocytes % 4.6 L Mean Corpuscular Hemoglobin 25.7 L Mean Corpuscular Hemoglobin Concent 31.5 L Mean Corpuscular Volume 81.6 L Mean Platelet Volume 10.1 Monocytes # 0.6 Monocytes % 4.9 Neutrophils # 11.0 H Neutrophils % 87.6 H Nucleated Red Blood Cells # 0.0 Nucleated Red Blood Cells % 0.0 Platelet Count 409 Potassium Level 3.5 Red Blood Count 2.88 L Red Cell Distribution Width 15.8 H Sodium Level 140 White Blood Count 12.5 H Medications Medications Current Medications Ondansetron HCl (Zofran Inj) 4 mg Q6H PRN IV NAUSEA AND/OR VOMITING; Start at 15:00 Acetaminophen (Tylenol Tab) 650 mg Q6H PRN PO PAIN LEVEL 1-3 OR FEVER Last administered on 08/02/16 09:32; Admin Dose 650 MG; Start 07/31/16 at 15:00 Morphine Sulfate (morphine) 2 mg Q4H PRN IV SEVERE PAIN LEVEL 7-10 Last administered on 08/02/16 00:58; Admin Dose 2 MG; Start 07/31/16 at 15:00 Docusate Sodium (Colace) 100 mg Q12H PRN PO CONSTIPATION; Start 07/31/16 at 15: 00 Magnesium Hydroxide (Milk Of Mag) 30 ml DAILY PRN PO CONSTIPATION; Start at 15:00 Sodium Biphosphate/ Sodium Phosphate (Fleet Enema) 133 ml DAILY PRN [place] CONSTIPATION; Start 07/31/16 at 15:00 Famotidine 20 mg 20 mg Q12 IV Last administered on 08/01/16 22:45; Admin Dose 20 MG; Start 07/31/16 at 21:00 Sodium Chloride 1,000 ml @ 100 mls/hr Q10H IV Last administered on 08/02/16 06 :12; Admin Dose 100 MLS/HR; Start 07/31/16 at 14:50 Piperacillin Sod/ Tazobactam Sod (Zosyn 3.375gm/ 100 ml (Pmx)) 100 ml @ 200 mls /hr Q6 IVPB Last administered on 08/02/16 12:12; Admin Dose 200 MLS/HR; Start 07/31/16 at 18:00 Vancomycin HCl (Vanco Iv Per Pharmacy) VANCOMYCIN PER PHARMACY NOTE XX ; Start 07/31/16 at 15:00 Hydralazine HCl (Apresoline) 10 mg Q6H PRN IV ELEVATED BLOOD PRESSURE; Start at 15:00 Nitroglycerin (Nitroglycerin (Sl Tab) 0.4 Mg) 1 tab Q5M PRN SL ANGINA; Start at 15:00 Insulin Aspart (Novolog Insulin Pen) NOVOLOG *MILD* ALGORI... Q4 SC Last administered on 08/02/16 12:17; Admin Dose 2 UNIT; Start 07/31/16 at 17:00 Miscellaneous Information 1 ea NOTE XX ; Start 07/31/16 at 16:30 Glucose (Glutose) 15 gm Q15M PRN PO DECREASED GLUCOSE; Start 07/31/16 at 16:30 Glucose (Glutose) 22.5 gm Q15M PRN PO DECREASED GLUCOSE; Start 07/31/16 at 16: 30 Dextrose (D50w Syringe) 25 ml Q15M PRN IV DECREASED GLUCOSE; Start 07/31/16 at 16:30 Dextrose (D50w Syringe) 50 ml Q15M PRN IV DECREASED GLUCOSE; Start 07/31/16 at 16:30 Glucagon (Glucagen) 1 mg Q15M PRN IM DECREASED GLUCOSE; Start 07/31/16 at 16:30 Glucose (Glutose) 15 gm Q15M PRN BUCCAL DECREASED GLUCOSE; Start 07/31/16 at 16 :30 Sodium Hypochlorite (Dakin'S (1/4 Strength)) 1 applic BID IRR Last administered on 08/01/16 23:16; Admin Dose 1 APPLIC; Start 08/01/16 at 21:00 Calcium Carbonate (Ca Carbonate) 1,250 mg BID GTB Last administered on 23:16; Admin Dose 1,250 MG; Start 08/01/16 at 22:30 Acetaminophen/ Hydrocodone Bitart ([place] (5/325)) 1 tab Q4H PRN PEG MODERATE PAIN LEVEL 4-6 Last administered on 08/02/16 02:46; Admin Dose 1 TAB; Start 08/02 at 00:00 Lorazepam 0.5 mg 0.5 mg Q4H PRN IV ANXIETY Last administered on 08/02/16 02:13 ; Admin Dose 0.5 MG; Start 08/02/16 at 00:00 Vancomycin HCl/ Sodium Chloride (Vancocin/NS) 250 ml @ 83.333 mls/ hr Q8H IVPB Last administered on 08/02/16 10:11; Admin Dose 83.333 MLS/HR; Start 08/02/16 at 01:00 Zolpidem Tartrate (Ambien) 10 mg HS PRN PEG INSOMNIA; Start 08/02/16 at 03:30 Influenza Virus Vaccine (Fluzone) 0.5 ml ONCE ONCE IM* ; Start 08/04/16 at 09:00 ; Stop 08/04/16 at 09:01 Fluconazole (Diflucan) 100 mg DAILY PO Last administered on 08/02/16 13:12; Admin Dose 100 MG; Start 08/02/16 at 12:30 Lactobacillus Acidoph/Bulgaricus (Floranex) 1 tab TID PO Last administered on 13:12; Admin Dose 1 TAB; Start 08/02/16 at 13:00 Kb Barrett DO Aug 02, 2016 13:30
--- NOTE | 2016-08-02 16:51 | RADRPT ---
PROCEDURE: US left upper extremity veins. CLINICAL INDICATION: Left arm pain and swelling. TECHNIQUE: Multiple longitudinal and transverse images of the left upper extremity venous tree was obtained with treviño scale, pulsed Doppler, and color Doppler imaging. COMPARISON: None available FINDINGS: The left internal jugular vein is not visualized due to an overlying neck brace. The left subclavia n, axillary, brachial, basilic, cephalic, radial, and ulnar veins are patent. There is normal flow w ith augmentation and compressibility throughout. There is no thrombus or occlusion. There is subcut aneous adipose tissue edema in the forearm. IMPRESSION: 1. Left internal jugular vein not visualized. 2. Subcutaneous adipose tissue edema in the left forearm. 3. Otherwise normal venous system of the left upper extremity. RPTAT: QQ .Bryce Lee MD, MD Date Time Electronically viewed and signed by .Bryce Lee MD, MD on 08/02/2016 16:50 .R/
--- NOTE | 2016-08-02 20:20 | CONS ---
Date/Time of Note Date/Time of Note DATE: 08/02/16 TIME: 20:00 Assessment/Plan Assessment/Plan Chief Complaint/Hosp Course 46-year-old quadriplegic male with multiple stage IV decubitus ulcers and sepsis. * Etiology of sepsis likely multifactorial and includes urinary tract infection , pneumonia, and sacral decubiti * Continue broad-spectrum intravenous antibiotics * Culture all wounds * Continue recommendations per wound care nurse * The main area of concern as far as his wounds go would be the area of undermining which connects the left ischial decubiti with the sacrococcygeal decubiti. Debridement of this area would likely result in a huge nonhealing wound. * Since patient is currently clinically improving, I would recommend evaluation by plastic surgeon for their input on how to best manage these wounds. Will discuss with primary care team. A total of over 60 minutes was spent in chart review, evaluation of the patient, and discussion with nurses. Problems: Consultation Date/Type/Reason Admit Date/Time Jul 31, 2016 at 14:20 Date of Consultation: Aug 02, 2016 Type of Consultation: GENERAL SURGERY Reason for Consultation Decubitus ulcer Hx of Present Illness The patient is an unfortunate 46-year-old male with past medical history of C2 quadriplegia resident of a nursing facility who was admitted with fever, hypotension and tachycardia. Patient was suspected of having sepsis. He was admitted and started on intravenous antibiotics. Most of the information is obtained from the chart as patient is trached and on the vent and has difficulty communicating. His condition is improved since his admission. He has been afebrile for the past 24 hours. He does have multiple decubitus ulcers and there is concern for infection. Surgical consultation was called in this regard. Unable to obtain as patient is trached and on vent Past Medical History As in history of present illness Past Surgical History Trach, PEG Social History Alcohol Use: none Smoking Status: Former smoker Exam/Review of Systems Vital Signs Vitals Vital Signs Date Time Temp Pulse Resp B/P Pulse Ox O2 Delivery O2 Flow Rate FiO2 08/02/16 17:25 111 20 100 40 08/02/16 15:47 99.3 139/83 08/01/16 18:00 Mechanical Ventilator Intake and Output 08/01/16 08/01/16 08/02/16 15:00 23:00 07:00 Intake Total 1965 ml Output Total 1000 ml Balance 965 ml Exam GENERAL: The patient is lying in bed, awake on the ventilator NECK: Neck brace in place. ABDOMEN: Soft, nondistended. PEG in place EXTREMITIES: Bilateral upper extremity edema left greater than right. Mild bilateral lower extremity edema. Bilateral dorsalis pedis pulses present. NEUROLOGIC: Quadriplegic SKIN: 1. Left heel [id number] stage 1 pressure ulcer. 2. Sacrococcyx stage 4 pressure ulcer down to bone. [id number]. Minimal granulation tissue over bone. Undermining present. Mostly granulation tissue which is healthy present. However, some murky drainage from undermining areas near the left ischium. 3. Left ischial stage 4 pressure ulcer down to bone. [id number]. Undermining present which extends to sacral wound. Mostly healthy granulation tissue present. However, there is some murky drainage from undermining area which reaches the sacral wound undermining. 4. Right trochanter stage 4 pressure ulcer. [id number]. Undermining present. Granulation tissue present with fibrinous exudate. 5. Right ischial stage 4 pressure ulcer. [id number]. Undermining present. Granulation tissue present with fibrinous exudate. 6. Occipital pressure ulcer, unstageable. Results Result Diagram: 08/02/16 0610 08/02/16 0610 Results 24 hrs Laboratory Tests Test 08/01/16 22:51 08/02/16 02:18 08/02/16 05:20 08/02/16 06:10 Bedside Glucose 191 158 159 Anion Gap 13 Basophils # 0.0 Basophils % 0.2 Blood Urea Nitrogen 11 Calcium Level 8.8 Carbon Dioxide Level 26 Chloride Level 105 Creatinine 0.27 L Eosinophils # 0.1 Eosinophils % 1.1 Glucose Level 145 Hematocrit 23.5 L Hemoglobin 7.4 L Lymphocytes # 0.6 L Lymphocytes % 4.6 L Mean Corpuscular Hemoglobin 25.7 L Mean Corpuscular Hemoglobin Concent 31.5 L Mean Corpuscular Volume 81.6 L Mean Platelet Volume 10.1 Monocytes # 0.6 Monocytes % 4.9 Neutrophils # 11.0 H Neutrophils % 87.6 H Nucleated Red Blood Cells # 0.0 Nucleated Red Blood Cells % 0.0 Platelet Count 409 Potassium Level 3.5 Red Blood Count 2.88 L Red Cell Distribution Width 15.8 H Sodium Level 140 White Blood Count 12.5 H Test 08/02/16 07:44 08/02/16 12:13 08/02/16 17:05 Bedside Glucose 168 213 183 Medications Medications Current Medications Ondansetron HCl (Zofran Inj) 4 mg Q6H PRN IV NAUSEA AND/OR VOMITING; Start at 15:00 Acetaminophen (Tylenol Tab) 650 mg Q6H PRN PO PAIN LEVEL 1-3 OR FEVER Last administered on 08/02/16 09:32; Admin Dose 650 MG; Start 07/31/16 at 15:00 Morphine Sulfate (morphine) 2 mg Q4H PRN IV SEVERE PAIN LEVEL 7-10 Last administered on 08/02/16 00:58; Admin Dose 2 MG; Start 07/31/16 at 15:00 Docusate Sodium (Colace) 100 mg Q12H PRN PO CONSTIPATION; Start 07/31/16 at 15: 00 Magnesium Hydroxide (Milk Of Mag) 30 ml DAILY PRN PO CONSTIPATION; Start at 15:00 Sodium Biphosphate/ Sodium Phosphate (Fleet Enema) 133 ml DAILY PRN [place] CONSTIPATION; Start 07/31/16 at 15:00 Famotidine 20 mg 20 mg Q12 IV Last administered on 08/01/16 22:45; Admin Dose 20 MG; Start 07/31/16 at 21:00 Sodium Chloride 1,000 ml @ 100 mls/hr Q10H IV Last administered on 08/02/16 06 :12; Admin Dose 100 MLS/HR; Start 07/31/16 at 14:50 Piperacillin Sod/ Tazobactam Sod (Zosyn 3.375gm/ 100 ml (Pmx)) 100 ml @ 200 mls /hr Q6 IVPB Last administered on 08/02/16 18:53; Admin Dose 200 MLS/HR; Start 07/31/16 at 18:00 Vancomycin HCl (Vanco Iv Per Pharmacy) VANCOMYCIN PER PHARMACY NOTE XX ; Start 07/31/16 at 15:00 Hydralazine HCl (Apresoline) 10 mg Q6H PRN IV ELEVATED BLOOD PRESSURE; Start at 15:00 Nitroglycerin (Nitroglycerin (Sl Tab) 0.4 Mg) 1 tab Q5M PRN SL ANGINA; Start at 15:00 Insulin Aspart (Novolog Insulin Pen) NOVOLOG *MILD* ALGORI... Q4 SC Last administered on 08/02/16 17:10; Admin Dose 2 UNIT; Start 07/31/16 at 17:00 Miscellaneous Information 1 ea NOTE XX ; Start 07/31/16 at 16:30 Glucose (Glutose) 15 gm Q15M PRN PO DECREASED GLUCOSE; Start 07/31/16 at 16:30 Glucose (Glutose) 22.5 gm Q15M PRN PO DECREASED GLUCOSE; Start 07/31/16 at 16: 30 Dextrose (D50w Syringe) 25 ml Q15M PRN IV DECREASED GLUCOSE; Start 07/31/16 at 16:30 Dextrose (D50w Syringe) 50 ml Q15M PRN IV DECREASED GLUCOSE; Start 07/31/16 at 16:30 Glucagon (Glucagen) 1 mg Q15M PRN IM DECREASED GLUCOSE; Start 07/31/16 at 16:30 Glucose (Glutose) 15 gm Q15M PRN BUCCAL DECREASED GLUCOSE; Start 07/31/16 at 16 :30 Sodium Hypochlorite (Dakin'S (1/4 Strength)) 1 applic BID IRR Last administered on 08/01/16 23:16; Admin Dose 1 APPLIC; Start 08/01/16 at 21:00 Calcium Carbonate (Ca Carbonate) 1,250 mg BID GTB Last administered on 23:16; Admin Dose 1,250 MG; Start 08/01/16 at 22:30 Acetaminophen/ Hydrocodone Bitart ([place] (5/325)) 1 tab Q4H PRN PEG MODERATE PAIN LEVEL 4-6 Last administered on 08/02/16 02:46; Admin Dose 1 TAB; Start 08/02 at 00:00 Lorazepam 0.5 mg 0.5 mg Q4H PRN IV ANXIETY Last administered on 08/02/16 02:13 ; Admin Dose 0.5 MG; Start 08/02/16 at 00:00 Vancomycin HCl/ Sodium Chloride (Vancocin/NS) 250 ml @ 83.333 mls/ hr Q8H IVPB Last administered on 08/02/16 17:12; Admin Dose 83.333 MLS/HR; Start 08/02/16 at 01:00 Zolpidem Tartrate (Ambien) 10 mg HS PRN PEG INSOMNIA; Start 08/02/16 at 03:30 Influenza Virus Vaccine (Fluzone) 0.5 ml ONCE ONCE IM* ; Start 08/04/16 at 09:00 ; Stop 08/04/16 at 09:01 Fluconazole (Diflucan) 100 mg DAILY PO Last administered on 08/02/16 13:12; Admin Dose 100 MG; Start 08/02/16 at 12:30 Lactobacillus Acidoph/Bulgaricus (Floranex) 1 tab TID PO Last administered on 13:12; Admin Dose 1 TAB; Start 08/02/16 at 13:00 Ibuprofen (Motrin) 600 mg Q6H PRN PO PAIN OR TEMP ABOVE 38C; Start 08/02/16 at 15:00 Miscellaneous Information (*Rx Drug Level Order Reminder*) 1 ONCE ONCE XX ; Start 08/03/16 at 00:00; Stop 08/03/16 at 00:01 ALEKSANDR ROBERTS MD Aug 02, 2016 20:16
[2016-08-02 21:37] LABS: AADO2 Arterial 624.2 mmHg (7.0-24.0); Allen Test ACCEPTAB; Arterial Base Excess 1.8 mmol/L (-3.0-3); Arterial COHb 0.3 % (0.0-3.0); Arterial Fraction of Oxyhgb 86.5 % (93.0-99.0); Arterial HCO3 25.2 mmol/L (22.0-26.0); Arterial MetHb 0.4 % (0.0-1.5); Blood Gas Low PEEP Setting 0 cmH2O; MODE VENT - AC
--- NOTE | 2016-08-02 23:28 | RADRPT ---
PROCEDURE: XR Chest. CLINICAL INDICATION: Hypoxia. TECHNIQUE: Portable AP semi erect view of the chest was obtained. COMPARISON: 07/31/2016 FINDINGS: The cardiomediastinal silhouette is within normal limits but shifted to the left. Endotracheal tube tip remains in satisfactory position approximately 3.8 cm above the yana. There has been develop ment of left lower lobe consolidation is believed to be atelectasis, possibly from mucous plugging, with elevation of the left hemidiaphragm. Bilateral pleural effusions are difficult to exclude with right basilar atelectasis unchanged. Left-sided approach central venous access catheters again not ed and satisfactory position. There is no evidence of pneumothorax. The osseous structures are int act with no evidence for acute abnormality. RPTAT:HJJR IMPRESSION: 1. Left lower lobe atelectasis is markedly worse compared to 07/31/2016 with slight shift of the me diastinum and elevation of the left hemidiaphragm, findings unable to exclude underlying mucous plug ging. 2. Bilateral pleural effusions and mild right basilar subsegmental atelectasis are unchanged. 3. Endotracheal tube and left-sided central venous access catheter remain in good positions Physician Yari Date Time Electronically viewed and signed by Physician Yari on 08/02/2016 23:28 /
[2016-08-03] VITALS (25 sets, daily range): BP systolic 96–145; BP diastolic 57–85; PULSE 100–127; RESP 17–20
[2016-08-03] MEDS: INSULIN ASPART [NOVOLOG] 3 ML PEN SC SCH ×6 (01:00→21:11)
[2016-08-03] MEDS: VANCOMYCIN 1.5 GM in SOD CHLORIDE 0.9% 250 ML IVPB SCH ×3 (01:36→16:55)
[2016-08-03 02:14] LABS: AADO2 Arterial 438.4 mmHg (7.0-24.0); Allen Test ACCEPTAB; Arterial Base Excess -1.6 mmol/L (-3.0-3); Arterial COHb 0.3 % (0.0-3.0); Arterial Fraction of Oxyhgb 94.2 % (93.0-99.0); Arterial HCO3 24.3 mmol/L (22.0-26.0); Arterial MetHb 0.4 % (0.0-1.5); Arterial Total Hemglobin 11.5 g/dl (12.0-18.0); MODE VENT - PC
[2016-08-03] MEDS: SOD CHLORIDE 0.9% 1,000 ML IV SCH ×2 (02:50→12:50)
[2016-08-03] MEDS: HYDROCODONE/APAP (5/325) TAB PEG PRN (04:06)
[2016-08-03] MEDS: PIPER-TAZO 3.375 GM IV (PMX) 100 ML IVPB SCH ×2 (05:30)
[2016-08-03 07:00] LABS: ADD SCAN DIFF NO
[2016-08-03 07:16] LABS: MAGNESIUM 1.9 mg/dl (1.7-2.5); PHOSPHORUS 4.4 mg/dl (2.5-4.9)
[2016-08-03 07:22] LABS: ABNORMAL IP MESSAGE 1; HEMATOCRIT 26.5 % (42.0-52.0); HEMOGLOBIN 8.3 g/dl (14.0-18.0); MEAN CORPUSCULAR HEMOGLOBIN 25.5 pg (29.0-33.0); MEAN CORPUSCULAR HGB CONC 31.3 g/dl (32.0-37.0); MEAN CORPUSCULAR VOLUME 81.3 fl (82.0-101.0); MEAN PLATELET VOLUME 9.8 fl (7.4-10.4); PLATELET COUNT 461 10^3/UL (140-415); RED BLOOD COUNT 3.26 10^6/ul (4.70-6.10); RED CELL DISTRIBUTION WIDTH 15.5 % (11.5-14.5); WHITE BLOOD COUNT 28.6 10^3/ul (4.8-10.8)
[2016-08-03 07:25] LABS: POTASSIUM 4.2 mmol/L (3.5-5.1)
[2016-08-03 07:28] LABS: CREATININE 0.38 mg/dl (0.61-1.24)
[2016-08-03] MEDS: LORAZEPAM 2 MG INJ IV PRN ×4 (07:41→22:06)
[2016-08-03] MEDS: FLUCONAZOLE 100 MG TAB PO SCH (08:53)
[2016-08-03] MEDS: LACTOBACILLUS CHEW TAB PO SCH ×3 (08:53→20:49)
[2016-08-03] MEDS: FAMOTIDINE 20 MG INJ IV SCH ×2 (08:53→20:49)
[2016-08-03] MEDS: CA CARBONATE (250 MG/ML) 5ML CUP GTB SCH ×2 (08:53→20:49)
--- NOTE | 2016-08-03 09:05 | RADRPT ---
PROCEDURE: Chest Radiograph. CLINICAL INDICATION: Pneumonia TECHNIQUE: Single frontal chest radiograph. COMPARISON: Chest radiograph 08/22/2016 FINDINGS: A tracheostomy tube and left chest wall port infusion catheter remain in place. The cardiomediastin al silhouette is within normal limits. There are persistent small to moderate bilateral pleural eff usions adjacent atelectasis/infiltrate. Patchy interstitial and air space disease bilaterally may re present multifocal pneumonia or pulmonary edema. The appearance is stable to slightly worsened when compared to 1 day prior.. The bones are intact. IMPRESSION: 1. Bilateral pleural effusions with adjacent atelectasis/infiltrate. 2. Patchy bilateral air space disease consistent with multifocal pneumonia versus pulmonary edema. 3. Tracheostomy tube and left chest wall port in place. RPTAT: AA .Govind Villagran MD, Date Time Electronically viewed and signed by .Govind Villagran MD, on 08/03/2016 09:05 .B/
--- NOTE | 2016-08-03 10:01 | CONS ---
Date/Time of Note Date/Time of Note DATE: 08/03/16 TIME: 09:59 Assessment/Plan Assessment/Plan Additional Assessment/Plan Septic shock, improving Tachycardia, improving C2 fracture and quadriplegic Respiratory failure Cardiomyopathy with ejection fraction 45-50% via echo on previous admission Decubiti -Patient with improvement in heart rate trend, tachycardia sinus likely related to sepsis and fevers. Antibiotics as per infectious disease. No need for AV dong blocking agents at the current time. Consultation Date/Type/Reason Admit Date/Time Jul 31, 2016 at 14:20 Type of Consultation: cv 24 HR Interval Summary Free Text/Dictation Feeling better, denies chest pain or shortness of breath Exam/Review of Systems Vital Signs Vitals Vital Signs Date Time Temp Pulse Resp B/P Pulse Ox O2 Delivery O2 Flow Rate FiO2 08/03/16 09:30 20 50 08/03/16 08:40 100 08/03/16 08:08 100 08/03/16 07:34 99.0 121/71 08/03/16 04:00 Mechanical Ventilator Intake and Output 08/02/16 08/02/16 08/03/16 15:00 23:00 07:00 Intake Total 2370 ml 1285 ml Output Total 1200 ml Balance 2370 ml 85 ml Exam No apparent distress, able to give history Constitutional: alert, oriented Head: normocephalic Neck: other (Tracheostomy) Respiratory: other (Coarse breath sounds bilaterally, no wheezing) Cardiovascular: other (S1-S2), regular rate and rhythm Gastrointestinal: bowel sounds, non-tender, other (No guarding), soft Extremities: edema Results Result Diagram: 08/03/16 0630 08/03/16 0630 Results 24 hrs Laboratory Tests Test 08/02/16 12:13 08/02/16 17:05 08/02/16 21:13 08/02/16 21:19 Bedside Glucose 213 183 147 Arterial Blood HCO3 25.2 Arterial Blood Base Excess 1.8 Arterial Blood Oxygen Saturation 87.1 L [place] Test ACCEPTAB Arterial Blood Gas Puncture Site Right Radial Arterial Blood Carboxyhemoglobin 0.3 Arterial Blood Date Drawn 08/02/2016 9:20:36 PM Arterial Blood Methemoglobin 0.4 Arterial Blood pCO2 (Temp correct) 35.3 Arterial Blood pH (Temp corrected) 7.472 H Arterial Blood pO2 (Temp corrected) 53.5 *L Blood Gas A-a O2 Differential 624.2 H Blood Gas Actual Respiration Rate 20 Blood Gas Critical Value Read Back c king landry rn Blood Gas Inspiratory Pressure 41.0 Blood Gas Low PEEP Setting 0 Blood Gas Modality VENT - AC Blood Gas Notified Time 08/02/2016 9:36:15 PM Blood Gas Notified Whom berenice gonzalez continuous improvement manager Blood Gas Respiration Rate 20.0 Blood Gas Specimen Source Blood arterial Blood Gas Temperature 37.0 Blood Gas Tidal Volume 650.0 FiO2 100.0 Oxyhemoglobin Percent 86.5 L Total Hemoglobin 11.0 L Test 08/03/16 00:18 08/03/16 01:55 08/03/16 06:30 08/03/16 07:33 Vancomycin Level Trough 12.3 Arterial Blood HCO3 24.3 Arterial Blood Base Excess -1.6 Arterial Blood Oxygen Saturation 94.9 L [place] Test ACCEPTAB Arterial Blood Gas Puncture Site Right Radial Arterial Blood Carboxyhemoglobin 0.3 Arterial Blood Date Drawn 08/03/2016 2:00:10 AM Arterial Blood Methemoglobin 0.4 Arterial Blood pCO2 (Temp correct) 45.9 H Arterial Blood pH (Temp corrected) 7.342 L Arterial Blood pO2 (Temp corrected) 83.8 Blood Gas A-a O2 Differential 438.4 H Blood Gas Actual Respiration Rate 20 Blood Gas High PEEP Setting 24.0 Blood Gas Inspiratory Time 0.90 Blood Gas Low PEEP Setting 10.0 Blood Gas Modality VENT - PC Blood Gas Notified Time 08/03/2016 2:14:04 AM Blood Gas Notified Whom KING Blood Gas Respiration Rate 20.0 Blood Gas Specimen Source Blood arterial Blood Gas Temperature 37.0 FiO2 80.0 Oxyhemoglobin Percent 94.2 Total Hemoglobin 11.5 L Anion Gap 14 Blood Urea Nitrogen 14 Calcium Level 9.0 Carbon Dioxide Level 26 Chloride Level 101 Creatinine 0.38 L Glucose Level 164 Hematocrit 26.5 L Hemoglobin 8.3 L Magnesium Level 1.9 Mean Corpuscular Hemoglobin 25.5 L Mean Corpuscular Hemoglobin Concent 31.3 L Mean Corpuscular Volume 81.3 L Mean Platelet Volume 9.8 Phosphorus Level 4.4 Platelet Count 461 H Potassium Level 4.2 Red Blood Count 3.26 L Red Cell Distribution Width 15.5 H Sodium Level 137 White Blood Count 28.6 #H Bedside Glucose 172 Medications Medications Current Medications Ondansetron HCl (Zofran Inj) 4 mg Q6H PRN IV NAUSEA AND/OR VOMITING; Start at 15:00 Acetaminophen (Tylenol Tab) 650 mg Q6H PRN PO PAIN LEVEL 1-3 OR FEVER Last administered on 08/02/16 22:19; Admin Dose 650 MG; Start 07/31/16 at 15:00 Morphine Sulfate (morphine) 2 mg Q4H PRN IV SEVERE PAIN LEVEL 7-10 Last administered on 08/02/16 20:59; Admin Dose 2 MG; Start 07/31/16 at 15:00 Docusate Sodium (Colace) 100 mg Q12H PRN PO CONSTIPATION; Start 07/31/16 at 15: 00 Magnesium Hydroxide (Milk Of Mag) 30 ml DAILY PRN PO CONSTIPATION; Start at 15:00 Sodium Biphosphate/ Sodium Phosphate (Fleet Enema) 133 ml DAILY PRN [place] CONSTIPATION; Start 07/31/16 at 15:00 Famotidine 20 mg 20 mg Q12 IV Last administered on 08/03/16 08:53; Admin Dose 20 MG; Start 07/31/16 at 21:00 Sodium Chloride 1,000 ml @ 100 mls/hr Q10H IV Last administered on 08/02/16 06 :12; Admin Dose 100 MLS/HR; Start 07/31/16 at 14:50 Piperacillin Sod/ Tazobactam Sod (Zosyn 3.375gm/ 100 ml (Pmx)) 100 ml @ 200 mls /hr Q6 IVPB Last administered on 08/03/16 05:30; Admin Dose 200 MLS/HR; Start 07/31/16 at 18:00 Vancomycin HCl (Vanco Iv Per Pharmacy) VANCOMYCIN PER PHARMACY NOTE XX ; Start 07/31/16 at 15:00 Hydralazine HCl (Apresoline) 10 mg Q6H PRN IV ELEVATED BLOOD PRESSURE; Start at 15:00 Nitroglycerin (Nitroglycerin (Sl Tab) 0.4 Mg) 1 tab Q5M PRN SL ANGINA; Start at 15:00 Insulin Aspart (Novolog Insulin Pen) NOVOLOG *MILD* ALGORI... Q4 SC Last administered on 08/03/16 09:00; Admin Dose 1 UNIT; Start 07/31/16 at 17:00 Miscellaneous Information 1 ea NOTE XX ; Start 07/31/16 at 16:30 Glucose (Glutose) 15 gm Q15M PRN PO DECREASED GLUCOSE; Start 07/31/16 at 16:30 Glucose (Glutose) 22.5 gm Q15M PRN PO DECREASED GLUCOSE; Start 07/31/16 at 16: 30 Dextrose (D50w Syringe) 25 ml Q15M PRN IV DECREASED GLUCOSE; Start 07/31/16 at 16:30 Dextrose (D50w Syringe) 50 ml Q15M PRN IV DECREASED GLUCOSE; Start 07/31/16 at 16:30 Glucagon (Glucagen) 1 mg Q15M PRN IM DECREASED GLUCOSE; Start 07/31/16 at 16:30 Glucose (Glutose) 15 gm Q15M PRN BUCCAL DECREASED GLUCOSE; Start 07/31/16 at 16 :30 Sodium Hypochlorite (Dakin'S (1/4 Strength)) 1 applic BID IRR Last administered on 08/02/16 21:31; Admin Dose 1 APPLIC; Start 08/01/16 at 21:00 Calcium Carbonate (Ca Carbonate) 1,250 mg BID GTB Last administered on 08:53; Admin Dose 1,250 MG; Start 08/01/16 at 22:30 Acetaminophen/ Hydrocodone Bitart ([place] (5/325)) 1 tab Q4H PRN PEG MODERATE PAIN LEVEL 4-6 Last administered on 08/03/16 04:06; Admin Dose 1 TAB; Start 08/02 at 00:00 Lorazepam 0.5 mg 0.5 mg Q4H PRN IV ANXIETY Last administered on 08/03/16 07:41 ; Admin Dose 0.5 MG; Start 08/02/16 at 00:00 Vancomycin HCl/ Sodium Chloride (Vancocin/NS) 250 ml @ 83.333 mls/ hr Q8H IVPB Last administered on 08/03/16 08:56; Admin Dose 83.333 MLS/HR; Start 08/02/16 at 01:00 Zolpidem Tartrate (Ambien) 10 mg HS PRN PEG INSOMNIA; Start 08/02/16 at 03:30 Influenza Virus Vaccine (Fluzone) 0.5 ml ONCE ONCE IM* ; Start 08/04/16 at 09:00 ; Stop 08/04/16 at 09:01 Fluconazole (Diflucan) 100 mg DAILY PO Last administered on 08/03/16 08:53; Admin Dose 100 MG; Start 08/02/16 at 12:30 Lactobacillus Acidoph/Bulgaricus (Floranex) 1 tab TID PO Last administered on 08:53; Admin Dose 1 TAB; Start 08/02/16 at 13:00 Ibuprofen (Motrin) 600 mg Q6H PRN PO PAIN OR TEMP ABOVE 38C; Start 08/02/16 at 15:00 Kb Barrett DO Aug 03, 2016 10:01
--- NOTE | 2016-08-03 10:58 | CONS ---
Date/Time of Note Date/Time of Note DATE: 08/03/16 TIME: 10:53 Assessment/Plan Assessment/Plan Additional Assessment/Plan Ventilator settings; AC of 20, pressure control mode of ventilation 50% FiO2 PEEP of 5 Chest x-ray was reviewed from today which is showing bibasilar infiltrates. Patient also has increasing leukocytosis. And culture is growing Pseudomonas which is resistant to Zosyn. Assessment recommendations; 1. Patient admitted with UTI and sepsis. 2. Bilateral pneumonia. 3. Hypoxemia. 4. History of quadriplegia. Patient remains ventilator dependent. Discontinue Zosyn, switch the patient to tobramycin. Continue vancomycin. Patient will to have a CT scan of chest done. DuoNeb 4 times daily . May have pleural effusions. Consultation Date/Type/Reason Admit Date/Time Jul 31, 2016 at 14:20 Initial Consult Date 08/02/16 Type of Consultation: Pulmonary 24 HR Interval Summary Free Text/Dictation Patient condition is stable. However requiring high FiO2 and also complaining of shortness of breath. Patient has been switched over to pressure control mode with assist control of 14, 55% FiO2. PEEP of 5. Also complaining of mild chest tightness. General examination; young male, on ventilator via tracheostomy currently in no distress. Awake and alert. Exam/Review of Systems Vital Signs Vitals Vital Signs Date Time Temp Pulse Resp B/P Pulse Ox O2 Delivery O2 Flow Rate FiO2 08/03/16 09:30 20 50 08/03/16 08:40 100 08/03/16 08:08 100 08/03/16 07:34 99.0 121/71 08/03/16 04:00 Mechanical Ventilator Intake and Output 08/02/16 08/02/16 08/03/16 15:00 23:00 07:00 Intake Total 2370 ml 1285 ml Output Total 1200 ml Balance 2370 ml 85 ml Exam H EENT examination; patient is wearing a soft collar. Ostomy in place with clean insertion site. No neck masses. Pharynx is clear. Pupils are midsize and reactive to light. Chest examination; diminished breath on lung bases bilaterally. Upper lobes are clear. S1-S2 audible, no murmurs. Regular rhythm. Abdomen examination; soft, G-tube in place. Nondistended. Nontender. Bowel sounds audible. Extremity examination; no peripheral edema. PLUSH FINISHER examination; patient stable quadriplegia. Results Result Diagram: 08/03/16 0630 08/03/16 0630 Results 24 hrs Laboratory Tests Test 08/02/16 12:13 08/02/16 17:05 08/02/16 21:13 08/02/16 21:19 Bedside Glucose 213 183 147 Arterial Blood HCO3 25.2 Arterial Blood Base Excess 1.8 Arterial Blood Oxygen Saturation 87.1 L [place] Test ACCEPTAB Arterial Blood Gas Puncture Site Right Radial Arterial Blood Carboxyhemoglobin 0.3 Arterial Blood Date Drawn 08/02/2016 9:20:36 PM Arterial Blood Methemoglobin 0.4 Arterial Blood pCO2 (Temp correct) 35.3 Arterial Blood pH (Temp corrected) 7.472 H Arterial Blood pO2 (Temp corrected) 53.5 *L Blood Gas A-a O2 Differential 624.2 H Blood Gas Actual Respiration Rate 20 Blood Gas Critical Value Read Back c king landry rn Blood Gas Inspiratory Pressure 41.0 Blood Gas Low PEEP Setting 0 Blood Gas Modality VENT - AC Blood Gas Notified Time 08/02/2016 9:36:15 PM Blood Gas Notified Whom berenice gonzalez applications analyst Blood Gas Respiration Rate 20.0 Blood Gas Specimen Source Blood arterial Blood Gas Temperature 37.0 Blood Gas Tidal Volume 650.0 FiO2 100.0 Oxyhemoglobin Percent 86.5 L Total Hemoglobin 11.0 L Test 08/03/16 00:18 08/03/16 01:55 08/03/16 06:30 08/03/16 07:33 Vancomycin Level Trough 12.3 Arterial Blood HCO3 24.3 Arterial Blood Base Excess -1.6 Arterial Blood Oxygen Saturation 94.9 L [place] Test ACCEPTAB Arterial Blood Gas Puncture Site Right Radial Arterial Blood Carboxyhemoglobin 0.3 Arterial Blood Date Drawn 08/03/2016 2:00:10 AM Arterial Blood Methemoglobin 0.4 Arterial Blood pCO2 (Temp correct) 45.9 H Arterial Blood pH (Temp corrected) 7.342 L Arterial Blood pO2 (Temp corrected) 83.8 Blood Gas A-a O2 Differential 438.4 H Blood Gas Actual Respiration Rate 20 Blood Gas High PEEP Setting 24.0 Blood Gas Inspiratory Time 0.90 Blood Gas Low PEEP Setting 10.0 Blood Gas Modality VENT - PC Blood Gas Notified Time 08/03/2016 2:14:04 AM Blood Gas Notified Whom KING Blood Gas Respiration Rate 20.0 Blood Gas Specimen Source Blood arterial Blood Gas Temperature 37.0 FiO2 80.0 Oxyhemoglobin Percent 94.2 Total Hemoglobin 11.5 L Anion Gap 14 Blood Urea Nitrogen 14 Calcium Level 9.0 Carbon Dioxide Level 26 Chloride Level 101 Creatinine 0.38 L Glucose Level 164 Hematocrit 26.5 L Hemoglobin 8.3 L Magnesium Level 1.9 Mean Corpuscular Hemoglobin 25.5 L Mean Corpuscular Hemoglobin Concent 31.3 L Mean Corpuscular Volume 81.3 L Mean Platelet Volume 9.8 Phosphorus Level 4.4 Platelet Count 461 H Potassium Level 4.2 Red Blood Count 3.26 L Red Cell Distribution Width 15.5 H Sodium Level 137 White Blood Count 28.6 #H Bedside Glucose 172 Medications Medications Current Medications Ondansetron HCl (Zofran Inj) 4 mg Q6H PRN IV NAUSEA AND/OR VOMITING; Start at 15:00 Acetaminophen (Tylenol Tab) 650 mg Q6H PRN PO PAIN LEVEL 1-3 OR FEVER Last administered on 08/02/16 22:19; Admin Dose 650 MG; Start 07/31/16 at 15:00 Morphine Sulfate (morphine) 2 mg Q4H PRN IV SEVERE PAIN LEVEL 7-10 Last administered on 08/02/16 20:59; Admin Dose 2 MG; Start 07/31/16 at 15:00 Docusate Sodium (Colace) 100 mg Q12H PRN PO CONSTIPATION; Start 07/31/16 at 15: 00 Magnesium Hydroxide (Milk Of Mag) 30 ml DAILY PRN PO CONSTIPATION; Start at 15:00 Sodium Biphosphate/ Sodium Phosphate (Fleet Enema) 133 ml DAILY PRN [place] CONSTIPATION; Start 07/31/16 at 15:00 Famotidine 20 mg 20 mg Q12 IV Last administered on 08/03/16 08:53; Admin Dose 20 MG; Start 07/31/16 at 21:00 Sodium Chloride (NS) 1,000 ml @ 100 mls/hr Q10H IV Last administered on 06:12; Admin Dose 100 MLS/HR; Start 07/31/16 at 14:50 Vancomycin HCl (Vanco Iv Per Pharmacy) VANCOMYCIN PER PHARMACY NOTE XX ; Start 07/31/16 at 15:00 Hydralazine HCl (Apresoline) 10 mg Q6H PRN IV ELEVATED BLOOD PRESSURE; Start at 15:00 Nitroglycerin (Nitroglycerin (Sl Tab) 0.4 Mg) 1 tab Q5M PRN SL ANGINA; Start at 15:00 Insulin Aspart (Novolog Insulin Pen) NOVOLOG *MILD* ALGORI... Q4 SC Last administered on 08/03/16 09:00; Admin Dose 1 UNIT; Start 07/31/16 at 17:00 Miscellaneous Information 1 ea NOTE XX ; Start 07/31/16 at 16:30 Glucose (Glutose) 15 gm Q15M PRN PO DECREASED GLUCOSE; Start 07/31/16 at 16:30 Glucose (Glutose) 22.5 gm Q15M PRN PO DECREASED GLUCOSE; Start 07/31/16 at 16: 30 Dextrose (D50w Syringe) 25 ml Q15M PRN IV DECREASED GLUCOSE; Start 07/31/16 at 16:30 Dextrose (D50w Syringe) 50 ml Q15M PRN IV DECREASED GLUCOSE; Start 07/31/16 at 16:30 Glucagon (Glucagen) 1 mg Q15M PRN IM DECREASED GLUCOSE; Start 07/31/16 at 16:30 Glucose (Glutose) 15 gm Q15M PRN BUCCAL DECREASED GLUCOSE; Start 07/31/16 at 16 :30 Sodium Hypochlorite (Dakin'S (1/4 Strength)) 1 applic BID IRR Last administered on 08/02/16 21:31; Admin Dose 1 APPLIC; Start 08/01/16 at 21:00 Calcium Carbonate (Ca Carbonate) 1,250 mg BID GTB Last administered on 08:53; Admin Dose 1,250 MG; Start 08/01/16 at 22:30 Acetaminophen/ Hydrocodone Bitart ([place] (5/325)) 1 tab Q4H PRN PEG MODERATE PAIN LEVEL 4-6 Last administered on 08/03/16 04:06; Admin Dose 1 TAB; Start 08/02 at 00:00 Lorazepam 0.5 mg 0.5 mg Q4H PRN IV ANXIETY Last administered on 08/03/16 07:41 ; Admin Dose 0.5 MG; Start 08/02/16 at 00:00 Vancomycin HCl/ Sodium Chloride (Vancocin/NS) 250 ml @ 83.333 mls/ hr Q8H IVPB Last administered on 08/03/16 08:56; Admin Dose 83.333 MLS/HR; Start 08/02/16 at 01:00 Zolpidem Tartrate (Ambien) 10 mg HS PRN PEG INSOMNIA; Start 08/02/16 at 03:30 Influenza Virus Vaccine (Fluzone) 0.5 ml ONCE ONCE IM* ; Start 08/04/16 at 09:00 ; Stop 08/04/16 at 09:01 Fluconazole (Diflucan) 100 mg DAILY PO Last administered on 08/03/16 08:53; Admin Dose 100 MG; Start 08/02/16 at 12:30 Lactobacillus Acidoph/Bulgaricus (Floranex) 1 tab TID PO Last administered on 08:53; Admin Dose 1 TAB; Start 08/02/16 at 13:00 Ibuprofen (Motrin) 600 mg Q6H PRN PO PAIN OR TEMP ABOVE 38C; Start 08/02/16 at 15:00 ALISSON ARRIOLA Aug 03, 2016 10:58
[2016-08-03] MEDS ORDERED: TOBRAMYCIN 80 MG in SOD CHLORIDE 0.9% 50 ML IVPB SCH (11:00)
--- NOTE | 2016-08-03 11:21 | PN ---
Date/Time of Note Date/Time of Note DATE: 08/03/16 TIME: 11:13 Assessment/Plan VTE Prophylaxis VTE Prophylaxis Intervention: heparin Lines/Catheters IV C[facility]ter Type [facility]from [facility] portacath Urinary Cath still in place: Yes Reason Cath still needed: urinary retention Assessment/Plan Chief Complaint/Hosp Course ASSESSMENT AND PLAN: 46-year-old male sent in with fever and diaphoresis with findings of sepsis with hypotension, tachycardia, likely secondary to possible decubitus ulcer worsening infection. 1. Sepsis - sec to URI + decubitus ulcer infx. He presented with fever, still present. His hypotension and tachycardia have somewhat improved, but worsening leukocytosis now. He received IV fluids in the ER. - Continue IV fluid and IV antibiotics broad spectrum - d/c Zosyn and add tobramycin given sensitivities. - f/u ID consult rec's, and surgery consult rec';s as well for possible debridement - may also need plastic surgery consult. - Tylenol + Motrin p.r.n. pain and fevers. 2. History of respiratory failure, tracheostomy dependent - f/u pulmonary consult for ventilator management and DuoNeb p.r.n Q4hrs - IV antibiotics (see above). Follow up CT chest (ordered today) 3. G-tube feeds. Continue as tolerated for now. 4. History of C2 fracture and quadriplegia. - Again, continue to monitor for now. - Bed changes and decubitus ulcer care as indicated. 5. Gastrointestinal prophylaxis. H2 pam. 6. Deep venous thrombosis prophylaxis. Heparin subcutaneous. Problems: Subjective 24 Hr Interval Summary Free Text/Dictation Pt had PRESERVATIONIST last night sec to hypoxia when turning pt. No fevers this AM. Refusing further wound care. Complains of pain when turning pt in bed. Seen by pulm team today, CT chest ordered and pending. Exam/Review of Systems Vital Signs Vitals Vital Signs Date Time Temp Pulse Resp B/P Pulse Ox O2 Delivery O2 Flow Rate FiO2 08/03/16 09:30 20 50 08/03/16 08:40 100 08/03/16 08:08 100 08/03/16 07:34 99.0 121/71 08/03/16 04:00 Mechanical Ventilator Intake and Output 08/02/16 08/02/16 08/03/16 15:00 23:00 07:00 Intake Total 2370 ml 1285 ml Output Total 1200 ml Balance 2370 ml 85 ml Exam GENERAL: The patient is lying in bed, in mild distress, asking to drink water HEENT: Pupils equal, round, react to light. Extraocular muscles intact. NECK: Neck brace in place. LUNGS: Clear to auscultation bilaterally. CARDIOVASCULAR: S1 S2 heard, No rubs or gallops. ABDOMEN: Soft, nontender, nondistended. Normal bowel sounds. No rebound or guarding. MUSCULOSKELETAL: Trace pitting edema bilateral lower extremities. NEUROLOGIC: Again, unable to move extremities. Results Result Diagram: 08/03/16 0630 08/03/16 0630 Results 24 hrs Laboratory Tests Test 08/02/16 12:13 08/02/16 17:05 08/02/16 21:13 08/02/16 21:19 Bedside Glucose 213 183 147 Arterial Blood HCO3 25.2 Arterial Blood Base Excess 1.8 Arterial Blood Oxygen Saturation 87.1 L [place] Test ACCEPTAB Arterial Blood Gas Puncture Site Right Radial Arterial Blood Carboxyhemoglobin 0.3 Arterial Blood Date Drawn 08/02/2016 9:20:36 PM Arterial Blood Methemoglobin 0.4 Arterial Blood pCO2 (Temp correct) 35.3 Arterial Blood pH (Temp corrected) 7.472 H Arterial Blood pO2 (Temp corrected) 53.5 *L Blood Gas A-a O2 Differential 624.2 H Blood Gas Actual Respiration Rate 20 Blood Gas Critical Value Read Back c king landry rn Blood Gas Inspiratory Pressure 41.0 Blood Gas Low PEEP Setting 0 Blood Gas Modality VENT - AC Blood Gas Notified Time 08/02/2016 9:36:15 PM Blood Gas Notified Whom d ali geospatial imagery intelligence analyst Blood Gas Respiration Rate 20.0 Blood Gas Specimen Source Blood arterial Blood Gas Temperature 37.0 Blood Gas Tidal Volume 650.0 FiO2 100.0 Oxyhemoglobin Percent 86.5 L Total Hemoglobin 11.0 L Test 08/03/16 00:18 08/03/16 01:55 08/03/16 06:30 08/03/16 07:33 Vancomycin Level Trough 12.3 Arterial Blood HCO3 24.3 Arterial Blood Base Excess -1.6 Arterial Blood Oxygen Saturation 94.9 L [place] Test ACCEPTAB Arterial Blood Gas Puncture Site Right Radial Arterial Blood Carboxyhemoglobin 0.3 Arterial Blood Date Drawn 08/03/2016 2:00:10 AM Arterial Blood Methemoglobin 0.4 Arterial Blood pCO2 (Temp correct) 45.9 H Arterial Blood pH (Temp corrected) 7.342 L Arterial Blood pO2 (Temp corrected) 83.8 Blood Gas A-a O2 Differential 438.4 H Blood Gas Actual Respiration Rate 20 Blood Gas High PEEP Setting 24.0 Blood Gas Inspiratory Time 0.90 Blood Gas Low PEEP Setting 10.0 Blood Gas Modality VENT - PC Blood Gas Notified Time 08/03/2016 2:14:04 AM Blood Gas Notified Whom MA Blood Gas Respiration Rate 20.0 Blood Gas Specimen Source Blood arterial Blood Gas Temperature 37.0 FiO2 80.0 Oxyhemoglobin Percent 94.2 Total Hemoglobin 11.5 L Anion Gap 14 Blood Urea Nitrogen 14 Calcium Level 9.0 Carbon Dioxide Level 26 Chloride Level 101 Creatinine 0.38 L Glucose Level 164 Hematocrit 26.5 L Hemoglobin 8.3 L Magnesium Level 1.9 Mean Corpuscular Hemoglobin 25.5 L Mean Corpuscular Hemoglobin Concent 31.3 L Mean Corpuscular Volume 81.3 L Mean Platelet Volume 9.8 Phosphorus Level 4.4 Platelet Count 461 H Potassium Level 4.2 Red Blood Count 3.26 L Red Cell Distribution Width 15.5 H Sodium Level 137 White Blood Count 28.6 #H Bedside Glucose 172 Medications Medications Current Medications Ondansetron HCl (Zofran Inj) 4 mg Q6H PRN IV NAUSEA AND/OR VOMITING; Start at 15:00 Acetaminophen (Tylenol Tab) 650 mg Q6H PRN PO PAIN LEVEL 1-3 OR FEVER Last administered on 08/02/16 22:19; Admin Dose 650 MG; Start 07/31/16 at 15:00 Morphine Sulfate (morphine) 2 mg Q4H PRN IV SEVERE PAIN LEVEL 7-10 Last administered on 08/02/16 20:59; Admin Dose 2 MG; Start 07/31/16 at 15:00 Docusate Sodium (Colace) 100 mg Q12H PRN PO CONSTIPATION; Start 07/31/16 at 15: 00 Magnesium Hydroxide (Milk Of Mag) 30 ml DAILY PRN PO CONSTIPATION; Start at 15:00 Sodium Biphosphate/ Sodium Phosphate (Fleet Enema) 133 ml DAILY PRN [place] CONSTIPATION; Start 07/31/16 at 15:00 Famotidine 20 mg 20 mg Q12 IV Last administered on 08/03/16 08:53; Admin Dose 20 MG; Start 07/31/16 at 21:00 Sodium Chloride (NS) 1,000 ml @ 100 mls/hr Q10H IV Last administered on 06:12; Admin Dose 100 MLS/HR; Start 07/31/16 at 14:50 Vancomycin HCl (Vanco Iv Per Pharmacy) VANCOMYCIN PER PHARMACY NOTE XX ; Start 07/31/16 at 15:00 Hydralazine HCl (Apresoline) 10 mg Q6H PRN IV ELEVATED BLOOD PRESSURE; Start at 15:00 Nitroglycerin (Nitroglycerin (Sl Tab) 0.4 Mg) 1 tab Q5M PRN SL ANGINA; Start at 15:00 Insulin Aspart (Novolog Insulin Pen) NOVOLOG *MILD* ALGORI... Q4 SC Last administered on 08/03/16 09:00; Admin Dose 1 UNIT; Start 07/31/16 at 17:00 Miscellaneous Information 1 ea NOTE XX ; Start 07/31/16 at 16:30 Glucose (Glutose) 15 gm Q15M PRN PO DECREASED GLUCOSE; Start 07/31/16 at 16:30 Glucose (Glutose) 22.5 gm Q15M PRN PO DECREASED GLUCOSE; Start 07/31/16 at 16: 30 Dextrose (D50w Syringe) 25 ml Q15M PRN IV DECREASED GLUCOSE; Start 07/31/16 at 16:30 Dextrose (D50w Syringe) 50 ml Q15M PRN IV DECREASED GLUCOSE; Start 07/31/16 at 16:30 Glucagon (Glucagen) 1 mg Q15M PRN IM DECREASED GLUCOSE; Start 07/31/16 at 16:30 Glucose (Glutose) 15 gm Q15M PRN BUCCAL DECREASED GLUCOSE; Start 07/31/16 at 16 :30 Sodium Hypochlorite (Dakin'S (1/4 Strength)) 1 applic BID IRR Last administered on 08/02/16 21:31; Admin Dose 1 APPLIC; Start 08/01/16 at 21:00 Calcium Carbonate (Ca Carbonate) 1,250 mg BID GTB Last administered on 08:53; Admin Dose 1,250 MG; Start 08/01/16 at 22:30 Acetaminophen/ Hydrocodone Bitart ([place] (5/325)) 1 tab Q4H PRN PEG MODERATE PAIN LEVEL 4-6 Last administered on 08/03/16 04:06; Admin Dose 1 TAB; Start 08/02 at 00:00 Lorazepam 0.5 mg 0.5 mg Q4H PRN IV ANXIETY Last administered on 08/03/16 07:41 ; Admin Dose 0.5 MG; Start 08/02/16 at 00:00 Vancomycin HCl/ Sodium Chloride (Vancocin/NS) 250 ml @ 83.333 mls/ hr Q8H IVPB Last administered on 08/03/16 08:56; Admin Dose 83.333 MLS/HR; Start 08/02/16 at 01:00 Zolpidem Tartrate (Ambien) 10 mg HS PRN PEG INSOMNIA; Start 08/02/16 at 03:30 Influenza Virus Vaccine (Fluzone) 0.5 ml ONCE ONCE IM* ; Start 08/04/16 at 09:00 ; Stop 08/04/16 at 09:01 Fluconazole (Diflucan) 100 mg DAILY PO Last administered on 08/03/16 08:53; Admin Dose 100 MG; Start 08/02/16 at 12:30 Lactobacillus Acidoph/Bulgaricus (Floranex) 1 tab TID PO Last administered on 08:53; Admin Dose 1 TAB; Start 08/02/16 at 13:00 Ibuprofen (Motrin) 600 mg Q6H PRN PO PAIN OR TEMP ABOVE 38C; Start 08/02/16 at 15:00 Tobramycin PER PHARMACY DOSING NOTE XX ; Start 08/03/16 at 11:30 Tobramycin/Sodium Chloride (Tobramycin/NS) 110 ml @ 110 mls/hr Q24H IVPB ; Start 08/03/16 at 12:00 DARON FARRELL Aug 03, 2016 11:20
[2016-08-03] MEDS ORDERED: TOBRAMYCIN IV PER PHARMACY XX SCH (11:30)
[2016-08-03 11:35] LABS: MONOCYTE # 1.1 10^3/ul (0.3-0.9); MYELOCYTES # 0.3; NEUTROPHIL # 20.9 10^3/ul (1.6-7.5)
[2016-08-03] MEDS: ASCORBIC ACID 500 MG TAB GTB SCH ×2 (11:43→20:49)
[2016-08-03] MEDS: MULTIVITAMINS THERAPEUTIC TAB PO SCH (11:43)
[2016-08-03] MEDS: ZINC SULFATE 220 MG CAP GTB SCH (11:43)
[2016-08-03] MEDS: metroNIDAZOLE 500 MG TAB PO SCH ×2 (11:48→22:31)
[2016-08-03] MEDS ORDERED: TOBRAMYCIN 400 MG in SOD CHLORIDE 0.9% 100 ML IVPB SCH (12:00)
--- NOTE | 2016-08-03 12:09 | PN ---
DATE: 08/03/2016 INFECTIOUS DISEASE PROGRESS NOTE SUBJECTIVE: No acute events overnight. No fevers. The patient is alert, lying comfortably in bed. WBC today 28.6 with H and H 8.8 and 26.5, platelets 461, BUN 14, creatinine 0.38. INDWELLINGS: Trach, PEG, Oliveira, left subclavian Port-A-Cath. DIAGNOSTICS: Chest x-ray this morning revealed bilateral pleural effusion with adjacent atelectasis , patchy bilateral airspace disease, consistent with multifocal pneumonia versus pulmonary edema. U ltrasound of the left upper extremity revealed no DVT. ANTIMICROBIALS: The patient is on: 1. Tobramycin IV. 2. Vancomycin. 3. Status post Zosyn. PHYSICAL EXAMINATION: GENERAL: This is a chronically ill-appearing, middle-aged man, who is lying comfortably in bed. HEENT: Head atraumatic, normocephalic. Sclerae anicteric. Buccal mucosa dry. NECK: Supple. Tracheostomy present. CHEST: Chest rise is symmetrical. Breath sounds diminished to the bases. HEART: S1, S2. ABDOMEN: Soft, bowel tones present. EXTREMITIES: Without cyanosis. Bilateral edema. ASSESSMENT: 1. Sepsis. 2. Healthcare-associated pneumonia. 3. Polymicrobial multi-drug resistant urinary tract infection. 4. Multiple chronic wounds. 5. Left chest Port-A-Cath. 6. History of Clostridium difficile colitis. 7. 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 PLAN: The patient remains clinically stable. We will add empiric Flagyl, given history of Clostridi um difficile, as well as for anaerobic coverage. He is being seen by surgery for wound management, who recommends plastic surgery evaluation. He is also seen by pulmonary. Pending sputum culture. Dictated By: LESLIE FERRARO ENVIRONMENTAL OFFICER for [facility] Conf#: [id number] DID#: [id number]
[2016-08-03] MEDS ORDERED: ALBUTEROL/IPRATROPIUM (NEB) 3 ML AMP HHN PRN (14:00)
[2016-08-03] MEDS: SODIUM HYPOCHLORITE 0.125% 473 ML BTL IRR SCH ×2 (14:00→20:50)
[2016-08-03] MEDS ORDERED: ALBUTEROL/IPRATROPIUM (NEB) 3 ML AMP HHN SCH (14:00)
[2016-08-03] MEDS: ACETAMINOPHEN 325 MG TAB PO PRN ×2 (14:23→22:05)
[2016-08-03] MEDS: ALBUTEROL/IPRATROPIUM (NEB) 3 ML AMP HHN PRN ×2 (14:39→19:54)
--- NOTE | 2016-08-03 15:53 | RADRPT ---
PROCEDURE: CT CHEST WITHOUT CONTRAST CLINICAL INDICATION: Shortness of breath TECHNIQUE: Volumetrically acquired images of the thorax obtained without intravenous contrast were reformatted in the axial, coronal, and sagittal planes. CTDI = 11.0 mGy; DLP = 408 mGy-cm. One or more of the following dose reduction technique were used: Automatic exposure control, adjustment of the mA and/or kV according to patient size, and use of iterative reconstruction technique. COMPARISON: No prior studies are available for comparison. FINDINGS: LOWER NECK AND CHEST WALL: Normal. AIRWAYS: A endotracheal tube is in appropriate position. Mild bronchial wall thickening is seen. LUNGS: There is scattered centrilobular micronodules, tree in bud nodularity and bronchocentric cons olidation seen throughout the lungs. Chronic scarring seen in the right upper and bilateral lower l obes. PLEURA: Unremarkable. No pleural thickening or effusions. MEDIASTINUM: No mediastinal mass. LYMPH NODES: No significant axillary, hilar, or mediastinal lymphadenopathy by CT size criteria. CARDIAC: The heart size is normal. No pericardial effusion or thickening. VASCULAR: The aorta and main pulmonary artery are normal in caliber. There is a left PICC termina ting in the right atrium. OSSEOUS: No suspicious osseous lesions. Limited evaluation of the upper abdomen is unremarkable. IMPRESSION: 1. Scattered bronchial wall thickening, centrilobular nodules, tree in bud nodularity, and bronchoce ntric consolidation consistent with multifocal bronchitis/bronchiolitis/bronchopneumonia. Areas of bronchocentric scarring is also seen throughout the lungs suggestive of chronic recurrent infections . 2. Endotracheal tube in appropriate position. RPTAT:PP .Raffy Peters MD, MD Date Time Electronically viewed and signed by .Raffy Peters MD, MD on 08/03/2016 15:53 .V/
[2016-08-04] VITALS (22 sets, daily range): BP systolic 100–139; BP diastolic 67–89; PULSE 95–131; RESP 18–26
[2016-08-04] MEDS: VANCOMYCIN 1.5 GM in SOD CHLORIDE 0.9% 250 ML IVPB SCH ×2 (01:07→09:20)
[2016-08-04] MEDS: SOD CHLORIDE 0.9% 1,000 ML IV SCH ×4 (01:08→18:50)
[2016-08-04] MEDS: ZOLPIDEM 5 MG TAB PEG PRN (01:23)
[2016-08-04] MEDS: INSULIN ASPART [NOVOLOG] 3 ML PEN SC SCH ×7 (01:32→21:21)
[2016-08-04] MEDS: ALBUTEROL/IPRATROPIUM (NEB) 3 ML AMP HHN PRN ×2 (03:48→08:03)
[2016-08-04] MEDS: HYDROmorphONE 1 MG/ML SYG IV PRN ×2 (03:55→11:07)
[2016-08-04] MEDS: metroNIDAZOLE 500 MG TAB PO SCH ×3 (05:28→21:06)
[2016-08-04] MEDS: LORAZEPAM 2 MG INJ IV PRN ×2 (07:09→23:05)
[2016-08-04] MEDS ORDERED: INFLUENZA VIRUS VACCINE 0.5 ML (DISPENSING) IM* ONE (09:00)
[2016-08-04] MEDS: SODIUM HYPOCHLORITE 0.125% 473 ML BTL IRR SCH ×3 (09:00→23:04)
[2016-08-04] MEDS: ZINC SULFATE 220 MG CAP GTB SCH (09:19)
[2016-08-04] MEDS: FLUCONAZOLE 100 MG TAB PO SCH (09:19)
[2016-08-04] MEDS: ASCORBIC ACID 500 MG TAB GTB SCH ×2 (09:19→21:02)
[2016-08-04] MEDS: MULTIVITAMINS THERAPEUTIC TAB PO SCH (09:19)
[2016-08-04] MEDS: CA CARBONATE (250 MG/ML) 5ML CUP GTB SCH ×2 (09:19→21:02)
[2016-08-04] MEDS: LACTOBACILLUS CHEW TAB PO SCH ×3 (09:19→21:02)
[2016-08-04] MEDS: FAMOTIDINE 20 MG INJ IV SCH ×2 (09:20→21:02)
[2016-08-04] MEDS: HYDROCODONE/APAP (5/325) TAB PEG PRN (10:09)
[2016-08-04 10:18] LABS: ADD SCAN DIFF NO
[2016-08-04 10:24] LABS: BASOPHILS % 0.1 % (0.0-2.0); EOSINOPHILS # 0.3 10^3/ul (0.0-0.5); EOSINOPHILS % 1.2 % (0.0-7.0); HEMATOCRIT 28.7 % (42.0-52.0); HEMOGLOBIN 8.5 g/dl (14.0-18.0); LYMPHOCYTES # 0.7 10^3/ul (0.8-2.9); LYMPHOCYTES % 3.2 % (15.0-51.0); MEAN CORPUSCULAR HEMOGLOBIN 24.5 pg (29.0-33.0); MEAN CORPUSCULAR HGB CONC 29.6 g/dl (32.0-37.0); MEAN CORPUSCULAR VOLUME 82.7 fl (82.0-101.0); MEAN PLATELET VOLUME 9.2 fl (7.4-10.4); MONOCYTE # 1.1 10^3/ul (0.3-0.9); MONOCYTES % 5.1 % (0.0-11.0); NEUTROPHIL # 18.4 10^3/ul (1.6-7.5); NEUTROPHILS % 88.9 % (39.0-77.0); PLATELET COUNT 506 10^3/UL (140-415); RED BLOOD COUNT 3.47 10^6/ul (4.70-6.10); WHITE BLOOD COUNT 20.7 10^3/ul (4.8-10.8)
--- NOTE | 2016-08-04 10:31 | PN ---
Date/Time of Note Date/Time of Note DATE: 08/04/16 TIME: 10:28 Assessment/Plan VTE Prophylaxis VTE Prophylaxis Intervention: heparin Lines/Catheters IV Catheter Type (from [facility]): portacath Urinary Cath still in place: Yes Reason Cath still needed: urinary retention Assessment/Plan Chief Complaint/Hosp Course ASSESSMENT AND PLAN: 46-year-old male sent in with fever and diaphoresis with findings of sepsis with hypotension, tachycardia, likely secondary to possible decubitus ulcer worsening infection. 1. Sepsis - sec to URI + decubitus ulcer infx. He presented with fever, still present. His hypotension and tachycardia have somewhat improved, but worsening leukocytosis now. He received IV fluids in the ER. - Continue IV fluid and IV antibiotics broad spectrum - tobramycin given sensitivities, + flagyl + fluconazole - f/u ID consult rec's, and surgery consult rec';s as well for possible debridement - I spoke with plastic surgery consult over the phone as well - recommending diverting colostomy first (as a life saving procedure, then approx 1 week after that, will need flap surgery for the multpile decubiti - to be done by plastics) - have discussed this option with pt and family - they are deciding whether to proceed with this. - Tylenol + Motrin p.r.n. pain and fevers. 2. History of respiratory failure, tracheostomy dependent, CT chest showed: Scattered bronchial wall thickening, centrilobular nodules, tree in bud nodularity, and bronchocentric consolidation consistent with multifocal bronchitis/bronchiolitis/bronchopneumonia. Areas of bronchocentric scarring is also seen throughout the lungs suggestive of chronic recurrent infections. - f/u pulmonary consult for ventilator management and DuoNeb p.r.n Q4hrs - IV antibiotics (see above). 3. G-tube feeds. Continue as tolerated for now. 4. History of C2 fracture and quadriplegia. - Again, continue to monitor for now. - Bed changes and decubitus ulcer care as indicated. 5. Gastrointestinal prophylaxis. H2 pam. 6. Deep venous thrombosis prophylaxis. Heparin subcutaneous. Problems: Subjective 24 Hr Interval Summary Free Text/Dictation Pt awaiting ST eval again, no acute events overnight. Exam/Review of Systems Vital Signs Vitals Vital Signs Date Time Temp Pulse Resp B/P Pulse Ox O2 Delivery O2 Flow Rate FiO2 08/04/16 08:13 126 08/04/16 07:48 99.3 18 139/80 100 08/04/16 05:26 40 08/03/16 04:00 Mechanical Ventilator Intake and Output 08/03/16 08/03/16 08/04/16 15:00 23:00 07:00 Intake Total 350 ml 250 ml Output Total 100 ml Balance 250 ml 250 ml Exam GENERAL: The patient is lying in bed, in mild distress, alert HEENT: Pupils equal, round, react to light. Extraocular muscles intact. NECK: Neck brace in place. LUNGS: Clear to auscultation bilaterally. CARDIOVASCULAR: S1 S2 heard, No rubs or gallops. ABDOMEN: Soft, nontender, nondistended. Normal bowel sounds. No rebound or guarding. MUSCULOSKELETAL: Trace pitting edema bilateral lower extremities. NEUROLOGIC: Again, unable to move extremities. Results Result Diagram: 08/03/16 0630 08/03/16 0630 Results 24 hrs Laboratory Tests Test 08/03/16 11:38 08/03/16 16:54 08/03/16 21:04 08/03/16 22:41 Bedside Glucose 195 188 170 Random Tobramycin Level 3.8 Test 08/04/16 01:28 08/04/16 05:29 08/04/16 09:39 Bedside Glucose 156 144 150 Medications Medications Current Medications Ondansetron HCl (Zofran Inj) 4 mg Q6H PRN IV NAUSEA AND/OR VOMITING; Start at 15:00 Acetaminophen (Tylenol Tab) 650 mg Q6H PRN PO PAIN LEVEL 1-3 OR FEVER Last administered on 08/03/16 22:05; Admin Dose 650 MG; Start 07/31/16 at 15:00 Morphine Sulfate (morphine) 2 mg Q4H PRN IV SEVERE PAIN LEVEL 7-10 Last administered on 08/02/16 20:59; Admin Dose 2 MG; Start 07/31/16 at 15:00 Docusate Sodium (Colace) 100 mg Q12H PRN PO CONSTIPATION; Start 07/31/16 at 15: 00 Magnesium Hydroxide (Milk Of Mag) 30 ml DAILY PRN PO CONSTIPATION; Start at 15:00 Sodium Biphosphate/ Sodium Phosphate (Fleet Enema) 133 ml DAILY PRN [place] CONSTIPATION; Start 07/31/16 at 15:00 Famotidine 20 mg 20 mg Q12 IV Last administered on 08/04/16 09:20; Admin Dose 20 MG; Start 07/31/16 at 21:00 Sodium Chloride (NS) 1,000 ml @ 100 mls/hr Q10H IV Last administered on 01:08; Admin Dose 100 MLS/HR; Start 07/31/16 at 14:50 Vancomycin HCl (Vanco Iv Per Pharmacy) VANCOMYCIN PER PHARMACY NOTE XX ; Start 07/31/16 at 15:00 Hydralazine HCl (Apresoline) 10 mg Q6H PRN IV ELEVATED BLOOD PRESSURE; Start at 15:00 Nitroglycerin (Nitroglycerin (Sl Tab) 0.4 Mg) 1 tab Q5M PRN SL ANGINA; Start at 15:00 Insulin Aspart (Novolog Insulin Pen) NOVOLOG *MILD* ALGORI... Q4 SC Last administered on 08/04/16 09:45; Admin Dose 1 UNIT; Start 07/31/16 at 17:00 Miscellaneous Information 1 ea NOTE XX ; Start 07/31/16 at 16:30 Glucose (Glutose) 15 gm Q15M PRN PO DECREASED GLUCOSE; Start 07/31/16 at 16:30 Glucose (Glutose) 22.5 gm Q15M PRN PO DECREASED GLUCOSE; Start 07/31/16 at 16: 30 Dextrose (D50w Syringe) 25 ml Q15M PRN IV DECREASED GLUCOSE; Start 07/31/16 at 16:30 Dextrose (D50w Syringe) 50 ml Q15M PRN IV DECREASED GLUCOSE; Start 07/31/16 at 16:30 Glucagon (Glucagen) 1 mg Q15M PRN IM DECREASED GLUCOSE; Start 07/31/16 at 16:30 Glucose (Glutose) 15 gm Q15M PRN BUCCAL DECREASED GLUCOSE; Start 07/31/16 at 16 :30 Sodium Hypochlorite (Dakin'S (1/4 Strength)) 1 applic BID IRR Last administered on 08/03/16 20:50; Admin Dose 1 APPLIC; Start 08/01/16 at 21:00 Calcium Carbonate (Ca Carbonate) 1,250 mg BID GTB Last administered on 09:19; Admin Dose 1,250 MG; Start 08/01/16 at 22:30 Acetaminophen/ Hydrocodone Bitart ([place] (5/325)) 1 tab Q4H PRN PEG MODERATE PAIN LEVEL 4-6 Last administered on 08/04/16 10:09; Admin Dose 1 TAB; Start 08/02 at 00:00 Lorazepam 0.5 mg 0.5 mg Q4H PRN IV ANXIETY Last administered on 08/04/16 07:09 ; Admin Dose 0.5 MG; Start 08/02/16 at 00:00 Vancomycin HCl/ Sodium Chloride (Vancocin/NS) 250 ml @ 83.333 mls/ hr Q8H IVPB Last administered on 08/04/16 09:20; Admin Dose 83.333 MLS/HR; Start 08/02/16 at 01:00 Zolpidem Tartrate (Ambien) 10 mg HS PRN PEG INSOMNIA Last administered on 01:23; Admin Dose 10 MG; Start 08/02/16 at 03:30 Fluconazole (Diflucan) 100 mg DAILY PO Last administered on 08/04/16 09:19; Admin Dose 100 MG; Start 08/02/16 at 12:30 Lactobacillus Acidoph/Bulgaricus (Floranex) 1 tab TID PO Last administered on 09:19; Admin Dose 1 TAB; Start 08/02/16 at 13:00 Ibuprofen (Motrin) 600 mg Q6H PRN PO PAIN OR TEMP ABOVE 38C; Start 08/02/16 at 15:00 Tobramycin PER PHARMACY DOSING NOTE XX ; Start 08/03/16 at 11:30 Tobramycin/Sodium Chloride (Tobramycin/NS) 110 ml @ 110 mls/hr Q24H IVPB Last administered on 08/03/16 12:26; Admin Dose 110 MLS/HR; Start 08/03/16 at 12:00 Hydromorphone HCl (Dilaudid) 0.5 mg Q4H PRN IV PAIN Last administered on 03:55; Admin Dose 0.5 MG; Start 08/03/16 at 11:30 Zinc Sulfate (Zinc Sulfate) 220 mg DAILY GTB Last administered on 08/04/16 09: 19; Admin Dose 220 MG; Start 08/03/16 at 11:30 Multivitamins Therapeutic (Theragran) 1 tab DAILY PO Last administered on 09:19; Admin Dose 1 TAB; Start 08/03/16 at 11:30 Ascorbic Acid (Vitamin C) 500 mg BID GTB Last administered on 08/04/16 09:19; Admin Dose 500 MG; Start 08/03/16 at 11:30 Metronidazole (Flagyl) 500 mg Q8 PO Last administered on 08/04/16 05:28; Admin Dose 500 MG; Start 08/03/16 at 12:00 DARON FARRELL 4, 2017 10:31
[2016-08-04 10:33] LABS: POTASSIUM 4.6 mmol/L (3.5-5.1)
[2016-08-04 10:37] LABS: CALCIUM 9.2 mg/dl (8.4-10.2)
[2016-08-04] MEDS ORDERED: NALOXONE (0.4 MG/ML) INJ ONE (11:47)
[2016-08-04] MEDS ORDERED: NALOXONE (0.4 MG/ML) INJ IV ONE (12:00)
[2016-08-04 12:17] LABS: AADO2 Arterial 147.9 mmHg (7.0-24.0); Allen Test ACCEPTAB; Arterial Base Excess -4.3 mmol/L (-3.0-3); Arterial COHb 0.3 % (0.0-3.0); Arterial Fraction of Oxyhgb 93.6 % (93.0-99.0); Arterial HCO3 22.1 mmol/L (22.0-26.0); Arterial MetHb 0.6 % (0.0-1.5); Arterial Total Hemglobin 9.1 g/dl (12.0-18.0); MODE VENT - AC
--- NOTE | 2016-08-04 14:04 | CONS ---
Date/Time of Note Date/Time of Note DATE: 08/04/16 TIME: 14:02 Assessment/Plan Assessment/Plan Chief Complaint/Hosp Course SUBJECTIVE: Lying comfortably in bed. No fevers. INDWELLINGS: Trach, PEG, Oliveira, left subclavian Port-A-Cath. DIAGNOSTICS: Chest x-ray this morning revealed bilateral pleural effusion with adjacent atelectasis, patchy bilateral airspace disease, consistent with multifocal pneumonia versus pulmonary edema. Ultrasound of the left upper extremity revealed no DVT. ANTIMICROBIALS: 1. Tobramycin IV. 2. Vancomycin. 3. Flagyl PHYSICAL EXAMINATION: GENERAL: This is a chronically ill-appearing, middle-aged man, who is lying comfortably in bed. HEENT: Head atraumatic, normocephalic. Sclerae anicteric. Buccal mucosa dry. NECK: Supple. Tracheostomy present. CHEST: Chest rise is symmetrical. Breath sounds diminished to the bases. HEART: S1, S2. ABDOMEN: Soft, bowel tones present. EXTREMITIES: Without cyanosis. Bilateral edema. ASSESSMENT: 1. Sepsis. 2. Healthcare-associated pneumonia. 3. Polymicrobial multi-drug resistant urinary tract infection. 4. Multiple chronic wounds. 5. Left chest Port-A-Cath. 6. History of Clostridium difficile colitis. 7. 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 PLAN: Clinically unchanged. Continue abx, local wound care, monitor renal f-n DW staff Problems: Consultation Date/Type/Reason Admit Date/Time Jul 31, 2016 at 14:20 Initial Consult Date 08/02/16 Type of Consultation: ID Exam/Review of Systems Vital Signs Vitals Vital Signs Date Time Temp Pulse Resp B/P Pulse Ox O2 Delivery O2 Flow Rate FiO2 08/04/16 12:20 118 08/04/16 12:20 26 96 40 08/04/16 12:00 98.4 138/89 08/03/16 04:00 Mechanical Ventilator Intake and Output 08/03/16 08/03/16 08/04/16 15:00 23:00 07:00 Intake Total 350 ml 250 ml Output Total 100 ml Balance 250 ml 250 ml Results Result Diagram: 08/04/16 0958 08/04/16 0958 Results 24 hrs Laboratory Tests Test 08/03/16 16:54 08/03/16 21:04 08/03/16 22:41 08/04/16 01:28 Bedside Glucose 188 170 156 Random Tobramycin Level 3.8 Test 08/04/16 05:29 08/04/16 09:39 08/04/16 09:58 08/04/16 11:46 Bedside Glucose 144 150 171 Anion Gap 13 Basophils # 0.0 Basophils % 0.1 Blood Urea Nitrogen 29 #H Calcium Level 9.2 Carbon Dioxide Level 26 Chloride Level 100 Creatinine 1.00 Eosinophils # 0.3 Eosinophils % 1.2 Glucose Level 153 Hematocrit 28.7 L Hemoglobin 8.5 L Lymphocytes # 0.7 L Lymphocytes % 3.2 L Mean Corpuscular Hemoglobin 24.5 L Mean Corpuscular Hemoglobin Concent 29.6 L Mean Corpuscular Volume 82.7 Mean Platelet Volume 9.2 Monocytes # 1.1 H Monocytes % 5.1 Neutrophils # 18.4 H Neutrophils % 88.9 H Nucleated Red Blood Cells # 0.0 Nucleated Red Blood Cells % 0.0 Platelet Count 506 H Potassium Level 4.6 Red Blood Count 3.47 L Red Cell Distribution Width 16.0 H Sodium Level 134 L White Blood Count 20.7 #H Test 08/04/16 11:55 Arterial Blood HCO3 22.1 Arterial Blood Base Excess -4.3 L Arterial Blood Oxygen Saturation 94.5 L [place] Test ACCEPTAB Arterial Blood Gas Puncture Site Left Radial Arterial Blood Carboxyhemoglobin 0.3 Arterial Blood Date Drawn 08/04/2016 12:05:59 PM Arterial Blood Methemoglobin 0.6 Arterial Blood pCO2 (Temp correct) 47.2 H Arterial Blood pH (Temp corrected) 7.289 *L Arterial Blood pO2 (Temp corrected) 83.0 Blood Gas A-a O2 Differential 147.9 H Blood Gas Critical Value Read Back T KASSAII Blood Gas Low PEEP Setting 5.0 Blood Gas Modality VENT - AC Blood Gas Notified Time 08/04/2016 12:10:14 PM Blood Gas Notified Whom T KASSAII Blood Gas Respiration Rate 20.0 Blood Gas Specimen Source Blood arterial Blood Gas Temperature 37.0 Blood Gas Tidal Volume 500.0 FiO2 40.0 Oxyhemoglobin Percent 93.6 Total Hemoglobin 9.1 L Medications Medications Current Medications Ondansetron HCl (Zofran Inj) 4 mg Q6H PRN IV NAUSEA AND/OR VOMITING; Start at 15:00 Acetaminophen (Tylenol Tab) 650 mg Q6H PRN PO PAIN LEVEL 1-3 OR FEVER Last administered on 08/03/16 22:05; Admin Dose 650 MG; Start 07/31/16 at 15:00 Morphine Sulfate (morphine) 2 mg Q4H PRN IV SEVERE PAIN LEVEL 7-10 Last administered on 08/02/16 20:59; Admin Dose 2 MG; Start 07/31/16 at 15:00 Docusate Sodium (Colace) 100 mg Q12H PRN PO CONSTIPATION; Start 07/31/16 at 15: 00 Magnesium Hydroxide (Milk Of Mag) 30 ml DAILY PRN PO CONSTIPATION; Start at 15:00 Sodium Biphosphate/ Sodium Phosphate (Fleet Enema) 133 ml DAILY PRN [place] CONSTIPATION; Start 07/31/16 at 15:00 Famotidine 20 mg 20 mg Q12 IV Last administered on 08/04/16 09:20; Admin Dose 20 MG; Start 07/31/16 at 21:00 Sodium Chloride (NS) 1,000 ml @ 100 mls/hr Q10H IV Last administered on 01:08; Admin Dose 100 MLS/HR; Start 07/31/16 at 14:50 Vancomycin HCl (Vanco Iv Per Pharmacy) VANCOMYCIN PER PHARMACY NOTE XX ; Start 07/31/16 at 15:00 Hydralazine HCl (Apresoline) 10 mg Q6H PRN IV ELEVATED BLOOD PRESSURE; Start at 15:00 Nitroglycerin (Nitroglycerin (Sl Tab) 0.4 Mg) 1 tab Q5M PRN SL ANGINA; Start at 15:00 Insulin Aspart (Novolog Insulin Pen) NOVOLOG *MILD* ALGORI... Q4 SC Last administered on 08/04/16 09:45; Admin Dose 1 UNIT; Start 07/31/16 at 17:00 Miscellaneous Information 1 ea NOTE XX ; Start 07/31/16 at 16:30 Glucose (Glutose) 15 gm Q15M PRN PO DECREASED GLUCOSE; Start 07/31/16 at 16:30 Glucose (Glutose) 22.5 gm Q15M PRN PO DECREASED GLUCOSE; Start 07/31/16 at 16: 30 Dextrose (D50w Syringe) 25 ml Q15M PRN IV DECREASED GLUCOSE; Start 07/31/16 at 16:30 Dextrose (D50w Syringe) 50 ml Q15M PRN IV DECREASED GLUCOSE; Start 07/31/16 at 16:30 Glucagon (Glucagen) 1 mg Q15M PRN IM DECREASED GLUCOSE; Start 07/31/16 at 16:30 Glucose (Glutose) 15 gm Q15M PRN BUCCAL DECREASED GLUCOSE; Start 07/31/16 at 16 :30 Sodium Hypochlorite (Dakin'S (1/4 Strength)) 1 applic BID IRR Last administered on 08/04/16 11:18; Admin Dose 1 APPLIC; Start 08/01/16 at 21:00 Calcium Carbonate (Ca Carbonate) 1,250 mg BID GTB Last administered on 09:19; Admin Dose 1,250 MG; Start 08/01/16 at 22:30 Acetaminophen/ Hydrocodone Bitart ([place] (5/325)) 1 tab Q4H PRN PEG MODERATE PAIN LEVEL 4-6 Last administered on 08/04/16 10:09; Admin Dose 1 TAB; Start 08/02 at 00:00 Lorazepam 0.5 mg 0.5 mg Q4H PRN IV ANXIETY Last administered on 08/04/16 07:09 ; Admin Dose 0.5 MG; Start 08/02/16 at 00:00 Vancomycin HCl/ Sodium Chloride (Vancocin/NS) 250 ml @ 83.333 mls/ hr Q8H IVPB Last administered on 08/04/16 09:20; Admin Dose 83.333 MLS/HR; Start 08/02/16 at 01:00 Zolpidem Tartrate (Ambien) 10 mg HS PRN PEG INSOMNIA Last administered on 01:23; Admin Dose 10 MG; Start 08/02/16 at 03:30 Fluconazole (Diflucan) 100 mg DAILY PO Last administered on 08/04/16 09:19; Admin Dose 100 MG; Start 08/02/16 at 12:30 Lactobacillus Acidoph/Bulgaricus (Floranex) 1 tab TID PO Last administered on 09:19; Admin Dose 1 TAB; Start 08/02/16 at 13:00 Ibuprofen (Motrin) 600 mg Q6H PRN PO PAIN OR TEMP ABOVE 38C; Start 08/02/16 at 15:00 Tobramycin (Tobramycin Iv Per Pharmacy) PER PHARMACY DOSING NOTE XX ; Start 08/03 at 11:30 Zinc Sulfate (Zinc Sulfate) 220 mg DAILY GTB Last administered on 08/04/16 09: 19; Admin Dose 220 MG; Start 08/03/16 at 11:30 Multivitamins Therapeutic (Theragran) 1 tab DAILY PO Last administered on 09:19; Admin Dose 1 TAB; Start 08/03/16 at 11:30 Ascorbic Acid (Vitamin C) 500 mg BID GTB Last administered on 08/04/16 09:19; Admin Dose 500 MG; Start 08/03/16 at 11:30 Metronidazole (Flagyl) 500 mg Q8 PO Last administered on 08/04/16 05:28; Admin Dose 500 MG; Start 08/03/16 at 12:00 Sodium Hypochlorite 1 applic 1 applic BID IRR ; Start 08/04/16 at 12:00 Tobramycin/Sodium Chloride (Tobramycin/NS) 110 ml @ 110 mls/hr Q36H IVPB ; Start 08/05/16 at 01:00 Miscellaneous Information (*Rx Drug Level Order Reminder*) VANCO TROUGH @ 1, 600 ON... ONCE ONCE XX ; Start 08/04/16 at 16:00; Stop 08/04/16 at 16:01 Hydromorphone HCl (Dilaudid) 0.5 mg Q8H PRN IV PAIN; Start 08/04/16 at 12:00 LESLIE FERRARO NP Aug 04, 2016 14:03
[2016-08-04] MEDS: SODIUM HYPOCHLORITE 1/40% 1L IRRIG IRR SCH ×2 (14:08→23:04)
--- NOTE | 2016-08-04 15:37 | CONS ---
Date/Time of Note Date/Time of Note DATE: 08/04/16 TIME: 15:35 Consult Date/Type/Reason Admit Date/Time Jul 31, 2016 at 14:20 Initial Consult Date Type of Consultation: Pulm Subjective no events overnight. Objective Vital Signs Date Time Temp Pulse Resp B/P Pulse Ox O2 Delivery O2 Flow Rate FiO2 08/04/16 15:23 97.8 92 18 138/88 100 08/04/16 12:20 40 08/03/16 04:00 Mechanical Ventilator Intake and Output 08/03/16 08/03/16 08/04/16 15:00 23:00 07:00 Intake Total 350 ml 250 ml Output Total 100 ml Balance 250 ml 250 ml HEENT: Neck supple; no JVD; no LAD, trach clean CVS: RRR, S1 and S2 CHEST: Coarse rhonchi b/l ABD: Soft, NT, + BS EXT: No c/c/e Results/Medications Result Diagram: 08/04/16 0958 08/04/16 0958 Results 24 hrs Laboratory Tests Test 08/03/16 16:54 08/03/16 21:04 08/03/16 22:41 08/04/16 01:28 Bedside Glucose 188 170 156 Random Tobramycin Level 3.8 Test 08/04/16 05:29 08/04/16 09:39 08/04/16 09:58 08/04/16 11:46 Bedside Glucose 144 150 171 Anion Gap 13 Basophils # 0.0 Basophils % 0.1 Blood Urea Nitrogen 29 #H Calcium Level 9.2 Carbon Dioxide Level 26 Chloride Level 100 Creatinine 1.00 Eosinophils # 0.3 Eosinophils % 1.2 Glucose Level 153 Hematocrit 28.7 L Hemoglobin 8.5 L Lymphocytes # 0.7 L Lymphocytes % 3.2 L Mean Corpuscular Hemoglobin 24.5 L Mean Corpuscular Hemoglobin Concent 29.6 L Mean Corpuscular Volume 82.7 Mean Platelet Volume 9.2 Monocytes # 1.1 H Monocytes % 5.1 Neutrophils # 18.4 H Neutrophils % 88.9 H Nucleated Red Blood Cells # 0.0 Nucleated Red Blood Cells % 0.0 Platelet Count 506 H Potassium Level 4.6 Red Blood Count 3.47 L Red Cell Distribution Width 16.0 H Sodium Level 134 L White Blood Count 20.7 #H Test 08/04/16 11:55 Arterial Blood HCO3 22.1 Arterial Blood Base Excess -4.3 L Arterial Blood Oxygen Saturation 94.5 L [place] Test ACCEPTAB Arterial Blood Gas Puncture Site Left Radial Arterial Blood Carboxyhemoglobin 0.3 Arterial Blood Date Drawn 08/04/2016 12:05:59 PM Arterial Blood Methemoglobin 0.6 Arterial Blood pCO2 (Temp correct) 47.2 H Arterial Blood pH (Temp corrected) 7.289 *L Arterial Blood pO2 (Temp corrected) 83.0 Blood Gas A-a O2 Differential 147.9 H Blood Gas Critical Value Read Back T KASSAII Blood Gas Low PEEP Setting 5.0 Blood Gas Modality VENT - AC Blood Gas Notified Time 08/04/2016 12:10:14 PM Blood Gas Notified Whom T KASSAII Blood Gas Respiration Rate 20.0 Blood Gas Specimen Source Blood arterial Blood Gas Temperature 37.0 Blood Gas Tidal Volume 500.0 FiO2 40.0 Oxyhemoglobin Percent 93.6 Total Hemoglobin 9.1 L Medications Current Medications Ondansetron HCl (Zofran Inj) 4 mg Q6H PRN IV NAUSEA AND/OR VOMITING; Start at 15:00 Acetaminophen (Tylenol Tab) 650 mg Q6H PRN PO PAIN LEVEL 1-3 OR FEVER Last administered on 08/03/16 22:05; Admin Dose 650 MG; Start 07/31/16 at 15:00 Morphine Sulfate (morphine) 2 mg Q4H PRN IV SEVERE PAIN LEVEL 7-10 Last administered on 08/02/16 20:59; Admin Dose 2 MG; Start 07/31/16 at 15:00 Docusate Sodium (Colace) 100 mg Q12H PRN PO CONSTIPATION; Start 07/31/16 at 15: 00 Magnesium Hydroxide (Milk Of Mag) 30 ml DAILY PRN PO CONSTIPATION; Start at 15:00 Sodium Biphosphate/ Sodium Phosphate (Fleet Enema) 133 ml DAILY PRN [place] CONSTIPATION; Start 07/31/16 at 15:00 Famotidine 20 mg 20 mg Q12 IV Last administered on 08/04/16 09:20; Admin Dose 20 MG; Start 07/31/16 at 21:00 Sodium Chloride (NS) 1,000 ml @ 100 mls/hr Q10H IV Last administered on 01:08; Admin Dose 100 MLS/HR; Start 07/31/16 at 14:50 Vancomycin HCl (Vanco Iv Per Pharmacy) VANCOMYCIN PER PHARMACY NOTE XX ; Start 07/31/16 at 15:00 Hydralazine HCl (Apresoline) 10 mg Q6H PRN IV ELEVATED BLOOD PRESSURE; Start at 15:00 Nitroglycerin (Nitroglycerin (Sl Tab) 0.4 Mg) 1 tab Q5M PRN SL ANGINA; Start at 15:00 Insulin Aspart (Novolog Insulin Pen) NOVOLOG *MILD* ALGORI... Q4 SC Last administered on 08/04/16 09:45; Admin Dose 1 UNIT; Start 07/31/16 at 17:00 Miscellaneous Information 1 ea NOTE XX ; Start 07/31/16 at 16:30 Glucose (Glutose) 15 gm Q15M PRN PO DECREASED GLUCOSE; Start 07/31/16 at 16:30 Glucose (Glutose) 22.5 gm Q15M PRN PO DECREASED GLUCOSE; Start 07/31/16 at 16: 30 Dextrose (D50w Syringe) 25 ml Q15M PRN IV DECREASED GLUCOSE; Start 07/31/16 at 16:30 Dextrose (D50w Syringe) 50 ml Q15M PRN IV DECREASED GLUCOSE; Start 07/31/16 at 16:30 Glucagon (Glucagen) 1 mg Q15M PRN IM DECREASED GLUCOSE; Start 07/31/16 at 16:30 Glucose (Glutose) 15 gm Q15M PRN BUCCAL DECREASED GLUCOSE; Start 07/31/16 at 16 :30 Sodium Hypochlorite (Dakin'S (1/4 Strength)) 1 applic BID IRR Last administered on 08/04/16 11:18; Admin Dose 1 APPLIC; Start 08/01/16 at 21:00 Calcium Carbonate (Ca Carbonate) 1,250 mg BID GTB Last administered on 09:19; Admin Dose 1,250 MG; Start 08/01/16 at 22:30 Acetaminophen/ Hydrocodone Bitart ([place] (5/325)) 1 tab Q4H PRN PEG MODERATE PAIN LEVEL 4-6 Last administered on 08/04/16 10:09; Admin Dose 1 TAB; Start 08/02 at 00:00 Lorazepam 0.5 mg 0.5 mg Q4H PRN IV ANXIETY Last administered on 08/04/16 07:09 ; Admin Dose 0.5 MG; Start 08/02/16 at 00:00 Vancomycin HCl/ Sodium Chloride (Vancocin/NS) 250 ml @ 83.333 mls/ hr Q8H IVPB Last administered on 08/04/16 09:20; Admin Dose 83.333 MLS/HR; Start 08/02/16 at 01:00 Zolpidem Tartrate (Ambien) 10 mg HS PRN PEG INSOMNIA Last administered on 01:23; Admin Dose 10 MG; Start 08/02/16 at 03:30 Fluconazole (Diflucan) 100 mg DAILY PO Last administered on 08/04/16 09:19; Admin Dose 100 MG; Start 08/02/16 at 12:30 Lactobacillus Acidoph/Bulgaricus (Floranex) 1 tab TID PO Last administered on 14:09; Admin Dose 1 TAB; Start 08/02/16 at 13:00 Ibuprofen (Motrin) 600 mg Q6H PRN PO PAIN OR TEMP ABOVE 38C; Start 08/02/16 at 15:00 Tobramycin (Tobramycin Iv Per Pharmacy) PER PHARMACY DOSING NOTE XX ; Start 08/03 at 11:30 Zinc Sulfate (Zinc Sulfate) 220 mg DAILY GTB Last administered on 08/04/16 09: 19; Admin Dose 220 MG; Start 08/03/16 at 11:30 Multivitamins Therapeutic (Theragran) 1 tab DAILY PO Last administered on 09:19; Admin Dose 1 TAB; Start 08/03/16 at 11:30 Ascorbic Acid (Vitamin C) 500 mg BID GTB Last administered on 08/04/16 09:19; Admin Dose 500 MG; Start 08/03/16 at 11:30 Metronidazole (Flagyl) 500 mg Q8 PO Last administered on 08/04/16 14:09; Admin Dose 500 MG; Start 08/03/16 at 12:00 Sodium Hypochlorite 1 applic 1 applic BID IRR Last administered on 08/04/16 14: 08; Admin Dose 1 APPLIC; Start 08/04/16 at 12:00 Tobramycin/Sodium Chloride (Tobramycin/NS) 110 ml @ 110 mls/hr Q36H IVPB ; Start 08/05/16 at 01:00 Miscellaneous Information (*Rx Drug Level Order Reminder*) VANCO TROUGH @ 1, 600 ON... ONCE ONCE XX ; Start 08/04/16 at 16:00; Stop 08/04/16 at 16:01 Hydromorphone HCl (Dilaudid) 0.5 mg Q8H PRN IV PAIN; Start 08/04/16 at 12:00 Assessment/Plan Additional Assessment/Plan IMP: 1. VDRF 2. VAP/infectious bronchiolitis 3. Anemia RECS: 1. Abx per ID 2. Vent support 3. CPT TRENT VEGA MD Aug 04, 2016 15:37
[2016-08-04] MEDS: ACETAMINOPHEN 325 MG TAB PO PRN (21:06)
[2016-08-05] VITALS (25 sets, daily range): BP systolic 83–126; BP diastolic 48–77; PULSE 89–127; RESP 20–26
[2016-08-05] MEDS ORDERED: TOBRAMYCIN 400 MG in SOD CHLORIDE 0.9% 100 ML IVPB SCH (01:00)
[2016-08-05] MEDS: INSULIN ASPART [NOVOLOG] 3 ML PEN SC SCH ×6 (01:17→21:29)
[2016-08-05] MEDS: ZOLPIDEM 5 MG TAB PEG PRN (01:26)
[2016-08-05] MEDS: metroNIDAZOLE 500 MG TAB PO SCH ×3 (05:16→23:03)
[2016-08-05] MEDS: SOD CHLORIDE 0.9% 1,000 ML IV SCH ×3 (05:16→23:20)
[2016-08-05 06:16] LABS: ADD SCAN DIFF NO
[2016-08-05 06:25] LABS: ABNORMAL IP MESSAGE 1; BASOPHILS % 0.1 % (0.0-2.0); EOSINOPHILS # 0.4 10^3/ul (0.0-0.5); EOSINOPHILS % 1.9 % (0.0-7.0); HEMATOCRIT 26.3 % (42.0-52.0); HEMOGLOBIN 7.9 g/dl (14.0-18.0); LYMPHOCYTES # 0.4 10^3/ul (0.8-2.9); LYMPHOCYTES % 1.9 % (15.0-51.0); MEAN CORPUSCULAR HEMOGLOBIN 24.6 pg (29.0-33.0); MEAN CORPUSCULAR VOLUME 81.9 fl (82.0-101.0); MEAN PLATELET VOLUME 9.9 fl (7.4-10.4); MONOCYTE # 0.7 10^3/ul (0.3-0.9); NEUTROPHIL # 21.1 10^3/ul (1.6-7.5); NEUTROPHILS % 91.8 % (39.0-77.0); PLATELET COUNT 466 10^3/UL (140-415); RED BLOOD COUNT 3.21 10^6/ul (4.70-6.10)
[2016-08-05] MEDS: LORAZEPAM 2 MG INJ IV PRN ×3 (06:47→21:02)
[2016-08-05 07:45] LABS: POTASSIUM 4.2 mmol/L (3.5-5.1)
[2016-08-05 07:49] LABS: CALCIUM 9.1 mg/dl (8.4-10.2)
[2016-08-05] MEDS: FAMOTIDINE 20 MG INJ IV SCH ×3 (09:00→21:11)
[2016-08-05] MEDS: SODIUM HYPOCHLORITE 0.125% 473 ML BTL IRR SCH ×3 (09:00→21:12)
[2016-08-05] MEDS: SODIUM HYPOCHLORITE 1/40% 1L IRRIG IRR SCH ×3 (09:00→21:12)
[2016-08-05] MEDS: MULTIVITAMINS THERAPEUTIC TAB PO SCH (10:21)
[2016-08-05] MEDS: CA CARBONATE (250 MG/ML) 5ML CUP GTB SCH ×2 (10:21→21:10)
[2016-08-05] MEDS: ASCORBIC ACID 500 MG TAB GTB SCH ×2 (10:21→21:10)
[2016-08-05] MEDS: ZINC SULFATE 220 MG CAP GTB SCH (10:21)
[2016-08-05] MEDS: LACTOBACILLUS CHEW TAB PO SCH ×3 (10:22→21:11)
[2016-08-05] MEDS: FLUCONAZOLE 100 MG TAB PO SCH (10:22)
--- NOTE | 2016-08-05 13:20 | PN ---
Date/Time of Note Date/Time of Note DATE: 08/05/16 TIME: 13:19 Assessment/Plan VTE Prophylaxis VTE Prophylaxis Intervention: heparin Lines/Catheters IV [facility] Type [facility] Peripheral IV Urinary Cath still in place: Yes Reason Cath still needed: urinary retention Assessment/Plan Chief Complaint/Hosp Course ASSESSMENT AND PLAN: 46-year-old male sent in with fever and diaphoresis with findings of sepsis with hypotension, tachycardia, likely secondary to possible decubitus ulcer worsening infection. 1. Sepsis - sec to URI + decubitus ulcer infx. He presented with fever, still present. His hypotension and tachycardia have somewhat improved, but worsening leukocytosis. He received IV fluids in the ER. - Continue IV fluid and IV antibiotics broad spectrum - Linezolid + Colistin + Flagyl + fluconazole - f/u ID consult rec's, and surgery consult rec';s as well for possible debridement - I spoke with plastic surgery consult over the phone 2 days ago - they are recommending diverting colostomy first (as a life saving procedure, then approx 1 week after that, will need flap surgery for the multiple decubiti - to be done by plastics) - have discussed this option with pt and family - they are deciding whether to proceed with this. General surgery team aware as well. - Tylenol + Motrin p.r.n. pain and fevers. 2. History of respiratory failure, tracheostomy dependent, CT chest showed: Scattered bronchial wall thickening, centrilobular nodules, tree in bud nodularity, and bronchocentric consolidation consistent with multifocal bronchitis/bronchiolitis/bronchopneumonia. Areas of bronchocentric scarring is also seen throughout the lungs suggestive of chronic recurrent infections. - f/u pulmonary consult for ventilator management and DuoNeb p.r.n Q4hrs - IV antibiotics (see above). 3. G-tube feeds. Continue as tolerated for now. 4. History of C2 fracture and quadriplegia. - Again, continue to monitor for now. - Bed changes and decubitus ulcer care as indicated. 5. Gastrointestinal prophylaxis. H2 pam. 6. Deep venous thrombosis prophylaxis. Heparin subcutaneous. Problems: Subjective 24 Hr Interval Summary Free Text/Dictation Pt with fevers. Exam/Review of Systems Vital Signs Vitals Vital Signs Date Time Temp Pulse Resp B/P Pulse Ox O2 Delivery O2 Flow Rate FiO2 08/05/16 12:28 107 08/05/16 11:58 100.0 22 87/48 91 08/05/16 11:06 50 08/03/16 04:00 Mechanical Ventilator Intake and Output 08/04/16 08/04/16 08/05/16 15:00 23:00 07:00 Intake Total 1000 ml 1170 ml 2305 ml Output Total 600 ml 1300 ml 1900 ml Balance 400 ml -130 ml 405 ml Exam GENERAL: The patient is lying in bed, in mild distress, alert HEENT: Pupils equal, round, react to light. Extraocular muscles intact. NECK: Neck brace in place. LUNGS: Clear to auscultation bilaterally. CARDIOVASCULAR: S1 S2 heard, No rubs or gallops. ABDOMEN: Soft, nontender, nondistended. Normal bowel sounds. No rebound or guarding. MUSCULOSKELETAL: Trace pitting edema bilateral lower extremities. NEUROLOGIC: Again, unable to move extremities. Results Result Diagram: 08/05/16 0554 08/05/16 0545 Results 24 hrs Laboratory Tests Test 08/04/16 15:50 08/04/16 17:39 08/04/16 21:01 08/05/16 01:08 Vancomycin Level Trough 47.8 *H Bedside Glucose 227 H 192 158 Test 08/05/16 05:19 08/05/16 05:45 08/05/16 05:54 08/05/16 08:15 Bedside Glucose 171 167 Anion Gap 15 Blood Urea Nitrogen 39 H Calcium Level 9.1 Carbon Dioxide Level 25 Chloride Level 104 Creatinine 1.00 Glucose Level 156 Potassium Level 4.2 Random Vancomycin Level 38.1 Sodium Level 140 Basophils # 0.0 Basophils % 0.1 Eosinophils # 0.4 Eosinophils % 1.9 Hematocrit 26.3 L Hemoglobin 7.9 L Lymphocytes # 0.4 L Lymphocytes % 1.9 L Mean Corpuscular Hemoglobin 24.6 L Mean Corpuscular Hemoglobin Concent 30.0 L Mean Corpuscular Volume 81.9 L Mean Platelet Volume 9.9 Monocytes # 0.7 Monocytes % 3.0 Neutrophils # 21.1 H Neutrophils % 91.8 H Nucleated Red Blood Cells # 0.0 Nucleated Red Blood Cells % 0.0 Platelet Count 466 H Red Blood Count 3.21 L Red Cell Distribution Width 16.0 H White Blood Count 23.0 H Test 08/05/16 12:16 Bedside Glucose 204 Medications Medications Current Medications Ondansetron HCl (Zofran Inj) 4 mg Q6H PRN IV NAUSEA AND/OR VOMITING; Start at 15:00 Acetaminophen (Tylenol Tab) 650 mg Q6H PRN PO PAIN LEVEL 1-3 OR FEVER Last administered on 08/04/16 21:06; Admin Dose 650 MG; Start 07/31/16 at 15:00 Morphine Sulfate (morphine) 2 mg Q4H PRN IV SEVERE PAIN LEVEL 7-10 Last administered on 08/02/16 20:59; Admin Dose 2 MG; Start 07/31/16 at 15:00 Docusate Sodium (Colace) 100 mg Q12H PRN PO CONSTIPATION; Start 07/31/16 at 15: 00 Magnesium Hydroxide (Milk Of Mag) 30 ml DAILY PRN PO CONSTIPATION; Start at 15:00 Sodium Biphosphate/ Sodium Phosphate (Fleet Enema) 133 ml DAILY PRN [place] CONSTIPATION; Start 07/31/16 at 15:00 Famotidine 20 mg 20 mg Q12 IV Last administered on 08/04/16 21:02; Admin Dose 20 MG; Start 07/31/16 at 21:00 Sodium Chloride (NS) 1,000 ml @ 100 mls/hr Q10H IV Last administered on 05:16; Admin Dose 100 MLS/HR; Start 07/31/16 at 14:50 Vancomycin HCl (Vanco Iv Per Pharmacy) VANCOMYCIN PER PHARMACY NOTE XX ; Start 07/31/16 at 15:00 Hydralazine HCl (Apresoline) 10 mg Q6H PRN IV ELEVATED BLOOD PRESSURE; Start at 15:00 Nitroglycerin (Nitroglycerin (Sl Tab) 0.4 Mg) 1 tab Q5M PRN SL ANGINA; Start at 15:00 Insulin Aspart (Novolog Insulin Pen) NOVOLOG *MILD* ALGORI... Q4 SC Last administered on 08/05/16 12:20; Admin Dose 2 UNIT; Start 07/31/16 at 17:00 Miscellaneous Information 1 ea NOTE XX ; Start 07/31/16 at 16:30 Glucose (Glutose) 15 gm Q15M PRN PO DECREASED GLUCOSE; Start 07/31/16 at 16:30 Glucose (Glutose) 22.5 gm Q15M PRN PO DECREASED GLUCOSE; Start 07/31/16 at 16: 30 Dextrose (D50w Syringe) 25 ml Q15M PRN IV DECREASED GLUCOSE; Start 07/31/16 at 16:30 Dextrose (D50w Syringe) 50 ml Q15M PRN IV DECREASED GLUCOSE; Start 07/31/16 at 16:30 Glucagon (Glucagen) 1 mg Q15M PRN IM DECREASED GLUCOSE; Start 07/31/16 at 16:30 Glucose (Glutose) 15 gm Q15M PRN BUCCAL DECREASED GLUCOSE; Start 07/31/16 at 16 :30 Sodium Hypochlorite (Dakin'S (06/06 Strength)) 1 applic BID IRR Last administered on 08/04/16 23:04; Admin Dose 1 APPLIC; Start 08/01/16 at 21:00 Calcium Carbonate (Ca Carbonate) 1,250 mg BID GTB Last administered on 10:21; Admin Dose 1,250 MG; Start 08/01/16 at 22:30 Acetaminophen/ Hydrocodone Bitart ([place] (5/325)) 1 tab Q4H PRN PEG MODERATE PAIN LEVEL 4-6 Last administered on 08/04/16 10:09; Admin Dose 1 TAB; Start 08/02 at 00:00 Lorazepam (Ativan) 0.5 mg Q4H PRN IV ANXIETY Last administered on 08/05/16 06: 47; Admin Dose 0.5 MG; Start 08/02/16 at 00:00 Zolpidem Tartrate (Ambien) 10 mg HS PRN PEG INSOMNIA Last administered on 01:26; Admin Dose 10 MG; Start 08/02/16 at 03:30 Fluconazole (Diflucan) 100 mg DAILY PO Last administered on 08/05/16 10:22; Admin Dose 100 MG; Start 08/02/16 at 12:30 Lactobacillus Acidoph/Bulgaricus (Floranex) 1 tab TID PO Last administered on 10:22; Admin Dose 1 TAB; Start 08/02/16 at 13:00 Ibuprofen (Motrin) 600 mg Q6H PRN PO PAIN OR TEMP ABOVE 38C; Start 08/02/16 at 15:00 Tobramycin (Tobramycin Iv Per Pharmacy) PER PHARMACY DOSING NOTE XX ; Start 08/03 at 11:30 Zinc Sulfate (Zinc Sulfate) 220 mg DAILY GTB Last administered on 08/05/16 10: 21; Admin Dose 220 MG; Start 08/03/16 at 11:30 Multivitamins Therapeutic (Theragran) 1 tab DAILY PO Last administered on 10:21; Admin Dose 1 TAB; Start 08/03/16 at 11:30 Ascorbic Acid (Vitamin C) 500 mg BID GTB Last administered on 08/05/16 10:21; Admin Dose 500 MG; Start 08/03/16 at 11:30 Metronidazole (Flagyl) 500 mg Q8 PO Last administered on 08/05/16 05:16; Admin Dose 500 MG; Start 08/03/16 at 12:00 Sodium Hypochlorite 1 applic 1 applic BID IRR Last administered on 08/04/16 23: 04; Admin Dose 1 APPLIC; Start 08/04/16 at 12:00 Tobramycin/Sodium Chloride (Tobramycin/NS) 110 ml @ 110 mls/hr Q36H IVPB Last administered on 08/05/16 01:06; Admin Dose 110 MLS/HR; Start 08/05/16 at 01:00 Hydromorphone HCl (Dilaudid) 0.5 mg Q8H PRN IV PAIN; Start 08/04/16 at 12:00 DARON FARRELL Aug 05, 2016 13:20
[2016-08-05] MEDS: ALTEPLASE (CATHFLO) 2 MG INJ CATHETER PRN (14:33)
[2016-08-05] MEDS: ACETAMINOPHEN 325 MG TAB PO PRN (14:39)
--- NOTE | 2016-08-05 15:54 | CONS ---
Date/Time of Note Date/Time of Note DATE: 08/05/16 TIME: 15:52 Consult Date/Type/Reason Admit Date/Time Jul 31, 2016 at 14:20 Initial Consult Date Type of Consultation: Pulm Subjective Febrile with low BP's overnight. Objective Vital Signs Date Time Temp Pulse Resp B/P Pulse Ox O2 Delivery O2 Flow Rate FiO2 08/05/16 15:44 99.0 116 22 89/56 96 08/05/16 14:44 Mechanical Ventilator 08/05/16 13:22 50 Intake and Output 08/04/16 08/04/16 08/05/16 15:00 23:00 07:00 Intake Total 1000 ml 1170 ml 2305 ml Output Total 600 ml 1300 ml 1900 ml Balance 400 ml -130 ml 405 ml HEENT: Neck supple; no JVD; no LAD, trach clean CVS: RRR, S1 and S2 CHEST: Coarse rhonchi b/l ABD: Soft, NT, + BS EXT: No c/c + edema; sacral decubs Results/Medications Result Diagram: 08/05/16 0554 08/05/16 0545 Results 24 hrs Laboratory Tests Test 08/04/16 17:39 08/04/16 21:01 08/05/16 01:08 08/05/16 05:19 Bedside Glucose 227 H 192 158 171 Test 08/05/16 05:45 08/05/16 05:54 08/05/16 08:15 08/05/16 12:16 Anion Gap 15 Blood Urea Nitrogen 39 H Calcium Level 9.1 Carbon Dioxide Level 25 Chloride Level 104 Creatinine 1.00 Glucose Level 156 Potassium Level 4.2 Random Vancomycin Level 38.1 Sodium Level 140 Basophils # 0.0 Basophils % 0.1 Eosinophils # 0.4 Eosinophils % 1.9 Hematocrit 26.3 L Hemoglobin 7.9 L Lymphocytes # 0.4 L Lymphocytes % 1.9 L Mean Corpuscular Hemoglobin 24.6 L Mean Corpuscular Hemoglobin Concent 30.0 L Mean Corpuscular Volume 81.9 L Mean Platelet Volume 9.9 Monocytes # 0.7 Monocytes % 3.0 Neutrophils # 21.1 H Neutrophils % 91.8 H Nucleated Red Blood Cells # 0.0 Nucleated Red Blood Cells % 0.0 Platelet Count 466 H Red Blood Count 3.21 L Red Cell Distribution Width 16.0 H White Blood Count 23.0 H Bedside Glucose 167 204 Medications Current Medications Ondansetron HCl (Zofran Inj) 4 mg Q6H PRN IV NAUSEA AND/OR VOMITING; Start at 15:00 Acetaminophen (Tylenol Tab) 650 mg Q6H PRN PO PAIN LEVEL 1-3 OR FEVER Last administered on 08/05/16 14:39; Admin Dose 650 MG; Start 07/31/16 at 15:00 Morphine Sulfate (morphine) 2 mg Q4H PRN IV SEVERE PAIN LEVEL 7-10 Last administered on 08/02/16 20:59; Admin Dose 2 MG; Start 07/31/16 at 15:00 Docusate Sodium (Colace) 100 mg Q12H PRN PO CONSTIPATION; Start 07/31/16 at 15: 00 Magnesium Hydroxide (Milk Of Mag) 30 ml DAILY PRN PO CONSTIPATION; Start at 15:00 Sodium Biphosphate/ Sodium Phosphate (Fleet Enema) 133 ml DAILY PRN [place] CONSTIPATION; Start 07/31/16 at 15:00 Famotidine 20 mg 20 mg Q12 IV Last administered on 08/04/16 21:02; Admin Dose 20 MG; Start 07/31/16 at 21:00 Sodium Chloride (NS) 1,000 ml @ 100 mls/hr Q10H IV Last administered on 05:16; Admin Dose 100 MLS/HR; Start 07/31/16 at 14:50 Hydralazine HCl (Apresoline) 10 mg Q6H PRN IV ELEVATED BLOOD PRESSURE; Start at 15:00 Nitroglycerin (Nitroglycerin (Sl Tab) 0.4 Mg) 1 tab Q5M PRN SL ANGINA; Start at 15:00 Insulin Aspart (Novolog Insulin Pen) NOVOLOG *MILD* ALGORI... Q4 SC Last administered on 08/05/16 12:20; Admin Dose 2 UNIT; Start 07/31/16 at 17:00 Miscellaneous Information 1 ea NOTE XX ; Start 07/31/16 at 16:30 Glucose (Glutose) 15 gm Q15M PRN PO DECREASED GLUCOSE; Start 07/31/16 at 16:30 Glucose (Glutose) 22.5 gm Q15M PRN PO DECREASED GLUCOSE; Start 07/31/16 at 16: 30 Dextrose (D50w Syringe) 25 ml Q15M PRN IV DECREASED GLUCOSE; Start 07/31/16 at 16:30 Dextrose (D50w Syringe) 50 ml Q15M PRN IV DECREASED GLUCOSE; Start 07/31/16 at 16:30 Glucagon (Glucagen) 1 mg Q15M PRN IM DECREASED GLUCOSE; Start 07/31/16 at 16:30 Glucose (Glutose) 15 gm Q15M PRN BUCCAL DECREASED GLUCOSE; Start 07/31/16 at 16 :30 Sodium Hypochlorite (Dakin'S (1/4 Strength)) 1 applic BID IRR Last administered on 08/04/16 23:04; Admin Dose 1 APPLIC; Start 08/01/16 at 21:00 Calcium Carbonate (Ca Carbonate) 1,250 mg BID GTB Last administered on 10:21; Admin Dose 1,250 MG; Start 08/01/16 at 22:30 Acetaminophen/ Hydrocodone Bitart ([place] (5/325)) 1 tab Q4H PRN PEG MODERATE PAIN LEVEL 4-6 Last administered on 08/04/16 10:09; Admin Dose 1 TAB; Start 08/02 at 00:00 Lorazepam (Ativan) 0.5 mg Q4H PRN IV ANXIETY Last administered on 08/05/16 06: 47; Admin Dose 0.5 MG; Start 08/02/16 at 00:00 Zolpidem Tartrate (Ambien) 10 mg HS PRN PEG INSOMNIA Last administered on 01:26; Admin Dose 10 MG; Start 08/02/16 at 03:30 Fluconazole (Diflucan) 100 mg DAILY PO Last administered on 08/05/16 10:22; Admin Dose 100 MG; Start 08/02/16 at 12:30 Lactobacillus Acidoph/Bulgaricus (Floranex) 1 tab TID PO Last administered on 14:39; Admin Dose 1 TAB; Start 08/02/16 at 13:00 Ibuprofen (Motrin) 600 mg Q6H PRN PO PAIN OR TEMP ABOVE 38C; Start 08/02/16 at 15:00 Zinc Sulfate (Zinc Sulfate) 220 mg DAILY GTB Last administered on 08/05/16 10: 21; Admin Dose 220 MG; Start 3/3/17 at 11:30 Multivitamins Therapeutic (Theragran) 1 tab DAILY PO Last administered on 10:21; Admin Dose 1 TAB; Start 08/03/16 at 11:30 Ascorbic Acid (Vitamin C) 500 mg BID GTB Last administered on 08/05/16 10:21; Admin Dose 500 MG; Start 08/03/16 at 11:30 Metronidazole (Flagyl) 500 mg Q8 PO Last administered on 08/05/16 14:39; Admin Dose 500 MG; Start 08/03/16 at 12:00 Sodium Hypochlorite (Dakin'S (Dilute 1/40%)) 1 applic BID IRR Last administered on 08/04/16 23:04; Admin Dose 1 APPLIC; Start 08/04/16 at 12:00 Hydromorphone HCl 0.5 mg 0.5 mg Q8H PRN IV PAIN; Start 08/04/16 at 12:00 Colistimethate Sodium/Sodium Chloride (Coly-Mycin/NS) 100 ml @ 200 mls/hr Q24H IVPB ; Start 08/05/16 at 17:00 Linezolid (Zyvox) 600 mg BID PO ; Start 08/05/16 at 21:00 Assessment/Plan Additional Assessment/Plan IMP: 1. Severe Sepsis: numerous source; although wound a major concern 2. VDRF 3. VAP/infectious bronchiolitis 4. Anemia RECS: 1. Abx per ID 2. Vent support; increase rate 24; VT 450 3. CPT/BD's 4. IVF's 5. Serial lactates 6. Goals of care discussion TRENT VEGA MD Aug 05, 2016 15:54
[2016-08-05] MEDS ORDERED: LACTATED RINGER'S 500 ML IV ONE (16:00)
[2016-08-05] MEDS: COLISTIMETHATE 150 MG in SOD CHLORIDE 0.9% 100 ML IVPB SCH (16:38)
--- NOTE | 2016-08-05 17:10 | PN ---
DATE: 08/05/2016 INFECTIOUS DISEASE PROGRESS NOTE SUBJECTIVE: Patient is lying comfortably in bed. He had been having episodes of anxiety with desaturation. Also, low-grade fevers with a T-max of 100. WBC 23, platelets 466, neutrophils 91.8. BUN 39, creatinine 1.0. MICROBIOLOGY: Urine culture grew [place] albicans Pseudomonas aeruginosa. Wound culture growing multi-drug resistant Klebsiella pneumoniae and gram- negative rods and Enterococcus species. INDWELLINGS: Trach, PEG, Oliveira, left chest Port-A-Cath. ANTIMICROBIALS: The patient is on: 1. Vancomycin. 2. Tobramycin. 3. Fluconazole. PHYSICAL EXAMINATION: GENERAL: Chronically ill-appearing, well-developed, middle-aged man who is lying comfortably in bed. HEENT: Head atraumatic, normocephalic. Sclerae anicteric. Buccal mucosa dry. CHEST: Rise symmetrical. Breath sounds diminished to bases. HEART: S1, S2. ABDOMEN: Soft, bowel tones present. EXTREMITIES: With trace edema. Left upper extremity more edematous. ASSESSMENT: 1. Sepsis. 2. Multiple decubitus with wound culture growing multi-drug resistant organisms. 3. Healthcare-associated pneumonia. 4. Multidrug resistant urinary tract infection. 5. History of Clostridium difficile colitis. 6. 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 7. Left chest Port-A-Cath. PLAN: The patient remains unchanged. We are going to start him on colistin to cover multi-drug resistant organisms that he is growing in the wound and urine. Discontinue tobramycin and vancomycin to preserve kidney function and start him on Zyvox. Continue local wound care. Follow pulmonary recommendations. Follow surgical recommendations. Dictated By: LESLIE FERRARO NNPS for ROGE HERNANDEZ/SCOTTIE Conf#: [id number] DID#: [id number] MAME
[2016-08-05] MEDS: ZYVOX 600 MG TAB PO SCH (21:11)
[2016-08-05] MEDS: ALBUTEROL/IPRATROPIUM (NEB) 3 ML AMP HHN PRN (21:44)
[2016-08-06] VITALS (27 sets, daily range): BP systolic 99–133; BP diastolic 61–87; PULSE 62–103; RESP 20–28
[2016-08-06] MEDS: INSULIN ASPART [NOVOLOG] 3 ML PEN SC SCH ×6 (02:03→23:11)
[2016-08-06] MEDS ORDERED: [UNRECOGNIZED DRUG - OTHER] XX ONE (05:00)
[2016-08-06 05:21] LABS: AADO2 Arterial 198.7 mmHg (7.0-24.0); Allen Test ACCEPTAB; Arterial Base Excess 0.5 mmol/L (-3.0-3); Arterial COHb 0.3 % (0.0-3.0); Arterial Fraction of Oxyhgb 94.4 % (93.0-99.0); Arterial HCO3 24.7 mmol/L (22.0-26.0); Arterial MetHb 0.4 % (0.0-1.5); Arterial Total Hemglobin 9.7 g/dl (12.0-18.0); MODE VENT - AC
[2016-08-06] MEDS: ALBUTEROL/IPRATROPIUM (NEB) 3 ML AMP HHN PRN ×2 (05:32→07:29)
[2016-08-06] MEDS: LORAZEPAM 2 MG INJ IV PRN ×3 (06:03→20:55)
[2016-08-06] MEDS: metroNIDAZOLE 500 MG TAB PO SCH ×3 (06:04→20:54)
[2016-08-06] MEDS: ACETAMINOPHEN 325 MG TAB PO PRN ×2 (06:14→15:27)
[2016-08-06 06:53] LABS: ADD SCAN DIFF NO
[2016-08-06 07:33] LABS: ALBUMIN 2.2 g/dl (3.3-4.9)
[2016-08-06 07:34] LABS: POTASSIUM 3.5 mmol/L (3.5-5.1)
[2016-08-06 07:36] LABS: ALBUMIN/GLOBULIN RATIO 0.7; CREATININE 0.89 mg/dl (0.61-1.24); TOTAL PROTEIN 5.3 g/dl (6.1-8.1)
[2016-08-06 07:37] LABS: CALCIUM 9.1 mg/dl (8.4-10.2)
[2016-08-06 08:00] LABS: ABNORMAL IP MESSAGE 1; BASOPHILS % 0.1 % (0.0-2.0); EOSINOPHILS # 0.4 10^3/ul (0.0-0.5); HEMATOCRIT 22.8 % (42.0-52.0); LYMPHOCYTES # 0.7 10^3/ul (0.8-2.9); LYMPHOCYTES % 3.4 % (15.0-51.0); MEAN CORPUSCULAR HEMOGLOBIN 24.7 pg (29.0-33.0); MEAN CORPUSCULAR HGB CONC 30.3 g/dl (32.0-37.0); MEAN CORPUSCULAR VOLUME 81.7 fl (82.0-101.0); MEAN PLATELET VOLUME 9.5 fl (7.4-10.4); MONOCYTE # 0.7 10^3/ul (0.3-0.9); MONOCYTES % 3.7 % (0.0-11.0); NEUTROPHIL # 17.2 10^3/ul (1.6-7.5); NEUTROPHILS % 89.7 % (39.0-77.0); PLATELET COUNT 472 10^3/UL (140-415); RED BLOOD COUNT 2.79 10^6/ul (4.70-6.10); WHITE BLOOD COUNT 19.2 10^3/ul (4.8-10.8)
[2016-08-06 08:04] LABS: HEMOGLOBIN 6.9 g/dl (14.0-18.0)
--- NOTE | 2016-08-06 08:58 | RADRPT ---
PROCEDURE: XR Chest. CLINICAL INDICATION: 46-year-old male on ventilator. TECHNIQUE: Single frontal view of the chest was obtained COMPARISON: Chest x-ray 08/03/2016 06:27 a.m. FINDINGS: The soft tissues are normal. There are degenerative osteophytes in the thoracic spine. An endotrac heal tube is positioned at T3-4. There is a Port-A-Cath over the upper left chest wall with the cat heter tip in the proximal right atrium. The left ventricle is enlarged. There are bilateral perihi lar and basilar infiltrates which show only slight improvement compared to the prior study. Monitor ing electrodes are draped across the chest. IMPRESSION: 1. Findings suspicious for congestive heart failure with asymmetric interstitial pulmonary edema and bilateral pleural effusions which have improved slightly as compared to 08/03/2016. 2. The tracheostomy tube is well-positioned at T3-4. 3. A Port-A-Cath is positioned over the left chest wall with the catheter tip in the proximal right atrium. RPTAT:AAJJ Physician Francy Date Time Electronically viewed and signed by Physician Francy on 08/06/2016 08:57 JOSEFA/
[2016-08-06] MEDS: SODIUM HYPOCHLORITE 0.125% 473 ML BTL IRR SCH ×2 (09:00→21:00)
[2016-08-06] MEDS: SODIUM HYPOCHLORITE 1/40% 1L IRRIG IRR SCH ×2 (09:00→21:00)
[2016-08-06] MEDS: ZYVOX 600 MG TAB PO SCH ×2 (09:45→20:54)
[2016-08-06] MEDS: ZINC SULFATE 220 MG CAP GTB SCH (09:45)
[2016-08-06] MEDS: FLUCONAZOLE 100 MG TAB PO SCH (09:45)
[2016-08-06] MEDS: MULTIVITAMINS THERAPEUTIC TAB PO SCH (09:45)
[2016-08-06] MEDS: LACTOBACILLUS CHEW TAB PO SCH ×3 (09:45→20:54)
[2016-08-06] MEDS: ASCORBIC ACID 500 MG TAB GTB SCH ×2 (09:45→20:54)
[2016-08-06] MEDS: CA CARBONATE (250 MG/ML) 5ML CUP GTB SCH ×2 (09:45→20:54)
[2016-08-06] MEDS: FAMOTIDINE 20 MG INJ IV SCH ×2 (09:45→20:54)
[2016-08-06] MEDS: SOD CHLORIDE 0.9% 1,000 ML IV SCH (10:08)
--- NOTE | 2016-08-06 10:57 | CONS ---
Date/Time of Note Date/Time of Note DATE: 08/06/16 TIME: 10:54 Assessment/Plan Assessment/Plan Additional Assessment/Plan Ventilator settings; AC of 24, tidal volume 500, PEEP of 5, 45% FiO2. Chest x-ray was reviewed from today which is showing significant improvement of bilateral extensive infiltrative changes. Assessment recommendations; 1. Patient admitted for UTI and bilateral pneumonia with continued interval improvement. 2. Anemia, patient to receive packed RBC transfusion. 3. 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 Continue current supportive care. Consultation Date/Type/Reason Admit Date/Time Jul 31, 2016 at 14:20 Initial Consult Date 08/02/16 Type of Consultation: Pulm 24 HR Interval Summary Free Text/Dictation Patient condition remains stable. Remains awake and alert. His remained hemodynamically stable. He remains ventilator dependent. General examination; young male, on ventilator via tracheostomy currently in no distress. Exam/Review of Systems Vital Signs Vitals Vital Signs Date Time Temp Pulse Resp B/P Pulse Ox O2 Delivery O2 Flow Rate FiO2 08/06/16 09:07 99 24 95 45 08/06/16 07:09 97.9 120/69 08/05/16 14:44 Mechanical Ventilator Intake and Output 08/05/16 08/05/16 08/06/16 15:00 23:00 07:00 Intake Total 2420 ml Balance 2420 ml Exam H EENT examination; colostomy in place with clean insertion site. No neck masses. Pupils are midsize and reactive to light. Good dentition. Pharynx is clear. Neck was not evaluated for suppleness due to patient wearing a soft C- spine collar. Chest examination; clear to auscultation bilaterally. S1-S2 audible, no murmurs. Regular rhythm. Abdomen examination; soft, nondistended. No organomegaly. G-tube in place. Bowel sounds audible. Extremity examination; no peripheral edema. CAR BRACER examination; patient is stable quadriplegia. Results Result Diagram: 08/06/16 0727 08/06/16 0604 Results 24 hrs Laboratory Tests Test 08/05/16 12:16 08/05/16 17:29 08/05/16 21:14 08/06/16 01:39 Bedside Glucose 204 222 H 209 154 Test 08/06/16 05:00 08/06/16 06:04 08/06/16 06:05 08/06/16 06:17 Arterial Blood HCO3 24.7 Arterial Blood Base Excess 0.5 Arterial Blood Oxygen Saturation 95.1 [place] Test ACCEPTAB Arterial Blood Gas Puncture Site Left Radial Arterial Blood Carboxyhemoglobin 0.3 Arterial Blood Date Drawn 08/06/2016 5:04:07 AM Arterial Blood Methemoglobin 0.4 Arterial Blood pCO2 (Temp correct) 37.8 Arterial Blood pH (Temp corrected) 7.433 Arterial Blood pO2 (Temp corrected) 79.2 L Blood Gas A-a O2 Differential 198.7 H Blood Gas Actual Respiration Rate 24 Blood Gas Inspiratory Pressure 32.0 Blood Gas Low PEEP Setting 5.0 Blood Gas Modality VENT - AC Blood Gas Notified Time 08/06/2016 5:21:24 AM Blood Gas Notified Whom RTR Blood Gas Respiration Rate 24.0 Blood Gas Specimen Source Blood arterial Blood Gas Temperature 37.0 Blood Gas Tidal Volume 500.0 FiO2 45.0 Oxyhemoglobin Percent 94.4 Total Hemoglobin 9.7 L Alanine Aminotransferase (ALT/SGPT) 49 Albumin 2.2 L Albumin/Globulin Ratio 0.70 Alkaline Phosphatase 164 H Anion Gap 14 Aspartate Amino Transf (AST/SGOT) 31 Blood Urea Nitrogen 40 H Calcium Level 9.1 Carbon Dioxide Level 26 Chloride Level 104 Creatinine 0.89 Direct Bilirubin 0.00 Globulin 3.10 Glucose Level 170 Indirect Bilirubin 0.0 Potassium Level 3.5 Sodium Level 140 Total Bilirubin 0.0 L Total Protein 5.3 L Lactic Acid Level 1.3 Bedside Glucose 196 Test 08/06/16 06:45 08/06/16 07:27 08/06/16 09:41 Random Vancomycin Level 24.2 Basophils # 0.0 Basophils % 0.1 Eosinophils # 0.4 Eosinophils % 2.0 Hematocrit 22.8 L Hemoglobin 6.9 *L Lymphocytes # 0.7 L Lymphocytes % 3.4 L Mean Corpuscular Hemoglobin 24.7 L Mean Corpuscular Hemoglobin Concent 30.3 L Mean Corpuscular Volume 81.7 L Mean Platelet Volume 9.5 Monocytes # 0.7 Monocytes % 3.7 Neutrophils # 17.2 H Neutrophils % 89.7 H Nucleated Red Blood Cells # 0.0 Nucleated Red Blood Cells % 0.0 Platelet Count 472 H Red Blood Count 2.79 L Red Cell Distribution Width 16.0 H White Blood Count 19.2 H Bedside Glucose 208 Medications Medications Current Medications Ondansetron HCl (Zofran Inj) 4 mg Q6H PRN IV NAUSEA AND/OR VOMITING; Start at 15:00 Acetaminophen (Tylenol Tab) 650 mg Q6H PRN PO PAIN LEVEL 1-3 OR FEVER Last administered on 08/06/16 06:14; Admin Dose 650 MG; Start 07/31/16 at 15:00 Morphine Sulfate (morphine) 2 mg Q4H PRN IV SEVERE PAIN LEVEL 7-10 Last administered on 08/02/16 20:59; Admin Dose 2 MG; Start 07/31/16 at 15:00 Docusate Sodium (Colace) 100 mg Q12H PRN PO CONSTIPATION; Start 07/31/16 at 15: 00 Magnesium Hydroxide (Milk Of Mag) 30 ml DAILY PRN PO CONSTIPATION; Start at 15:00 Sodium Biphosphate/ Sodium Phosphate (Fleet Enema) 133 ml DAILY PRN [place] CONSTIPATION; Start 07/31/16 at 15:00 Famotidine 20 mg 20 mg Q12 IV Last administered on 08/06/16 09:45; Admin Dose 20 MG; Start 07/31/16 at 21:00 Sodium Chloride (NS) 1,000 ml @ 100 mls/hr Q10H IV Last administered on 10:08; Admin Dose 100 MLS/HR; Start 07/31/16 at 14:50 Hydralazine HCl (Apresoline) 10 mg Q6H PRN IV ELEVATED BLOOD PRESSURE; Start at 15:00 Nitroglycerin (Nitroglycerin (Sl Tab) 0.4 Mg) 1 tab Q5M PRN SL ANGINA; Start at 15:00 Insulin Aspart (Novolog Insulin Pen) NOVOLOG *MILD* ALGORI... Q4 SC Last administered on 08/06/16 09:57; Admin Dose 2 UNIT; Start 07/31/16 at 17:00 Miscellaneous Information 1 ea NOTE XX ; Start 07/31/16 at 16:30 Glucose (Glutose) 15 gm Q15M PRN PO DECREASED GLUCOSE; Start 07/31/16 at 16:30 Glucose (Glutose) 22.5 gm Q15M PRN PO DECREASED GLUCOSE; Start 07/31/16 at 16: 30 Dextrose (D50w Syringe) 25 ml Q15M PRN IV DECREASED GLUCOSE; Start 07/31/16 at 16:30 Dextrose (D50w Syringe) 50 ml Q15M PRN IV DECREASED GLUCOSE; Start 07/31/16 at 16:30 Glucagon (Glucagen) 1 mg Q15M PRN IM DECREASED GLUCOSE; Start 07/31/16 at 16:30 Glucose (Glutose) 15 gm Q15M PRN BUCCAL DECREASED GLUCOSE; Start 07/31/16 at 16 :30 Sodium Hypochlorite (Dakin'S (1/4 Strength)) 1 applic BID IRR Last administered on 08/06/16 09:00; Admin Dose 1 APPLIC; Start 08/01/16 at 21:00 Calcium Carbonate (Ca Carbonate) 1,250 mg BID GTB Last administered on 09:45; Admin Dose 1,250 MG; Start 08/01/16 at 22:30 Acetaminophen/ Hydrocodone Bitart ([place] (5/325)) 1 tab Q4H PRN PEG MODERATE PAIN LEVEL 4-6 Last administered on 08/04/16 10:09; Admin Dose 1 TAB; Start 08/02 at 00:00 Lorazepam (Ativan) 0.5 mg Q4H PRN IV ANXIETY Last administered on 08/06/16 06: 03; Admin Dose 0.5 MG; Start 08/02/16 at 00:00 Zolpidem Tartrate (Ambien) 10 mg HS PRN PEG INSOMNIA Last administered on 01:26; Admin Dose 10 MG; Start 08/02/16 at 03:30 Fluconazole (Diflucan) 100 mg DAILY PO Last administered on 08/06/16 09:45; Admin Dose 100 MG; Start 08/02/16 at 12:30 Lactobacillus Acidoph/Bulgaricus (Floranex) 1 tab TID PO Last administered on 09:45; Admin Dose 1 TAB; Start 08/02/16 at 13:00 Ibuprofen (Motrin) 600 mg Q6H PRN PO PAIN OR TEMP ABOVE 38C; Start 08/02/16 at 15:00 Zinc Sulfate (Zinc Sulfate) 220 mg DAILY GTB Last administered on 08/06/16 09: 45; Admin Dose 220 MG; Start 08/03/16 at 11:30 Multivitamins Therapeutic (Theragran) 1 tab DAILY PO Last administered on 09:45; Admin Dose 1 TAB; Start 08/03/16 at 11:30 Ascorbic Acid (Vitamin C) 500 mg BID GTB Last administered on 08/06/16 09:45; Admin Dose 500 MG; Start 08/03/16 at 11:30 Metronidazole (Flagyl) 500 mg Q8 PO Last administered on 08/06/16 06:04; Admin Dose 500 MG; Start 08/03/16 at 12:00 Sodium Hypochlorite (Dakin'S (Dilute 1/40%)) 1 applic BID IRR Last administered on 08/06/16 09:00; Admin Dose 1 APPLIC; Start 08/04/16 at 12:00 Hydromorphone HCl 0.5 mg 0.5 mg Q8H PRN IV PAIN; Start 08/04/16 at 12:00 Colistimethate Sodium/Sodium Chloride (Coly-Mycin/NS) 100 ml @ 200 mls/hr Q24H IVPB Last administered on 08/05/16 16:38; Admin Dose 200 MLS/HR; Start 08/05/16 at 17:00 Linezolid (Zyvox) 600 mg BID PO Last administered on 08/06/16 09:45; Admin Dose 600 MG; Start 08/05/16 at 21:00 ALISSON ARRIOLA Aug 06, 2016 10:57
--- NOTE | 2016-08-06 12:06 | CONS ---
Date/Time of Note Date/Time of Note DATE: 08/06/16 TIME: 12:04 Assessment/Plan Assessment/Plan Chief Complaint/Hosp Course SUBJECTIVE: Patient is lying comfortably in bed. denies pain. MICROBIOLOGY: Urine culture grew [place] albicans Pseudomonas aeruginosa. Wound culture growing multi-drug resistant Klebsiella pneumoniae and gram- negative rods and Enterococcus species. INDWELLINGS: Trach, PEG, Oliveira, left chest Port-A-Cath. ANTIMICROBIALS: The patient is on: 1. Colistin. 2. Zyvox. 3. Fluconazole. 4. Flagyl PHYSICAL EXAMINATION: GENERAL: Chronically ill-appearing, well-developed, middle-aged man who is lying comfortably in bed. HEENT: Head atraumatic, normocephalic. Sclerae anicteric. Buccal mucosa dry. CHEST: Rise symmetrical. Breath sounds diminished to bases. HEART: S1, S2. ABDOMEN: Soft, bowel tones present. EXTREMITIES: With trace edema. Left upper extremity more edematous. ASSESSMENT: 1. Sepsis. 2. Multiple decubitus with wound culture growing multi-drug resistant organisms. 3. Healthcare-associated pneumonia. 4. Multidrug resistant urinary tract infection. 5. History of Clostridium difficile colitis. 6. 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 7. Left chest Port-A-Cath. PLAN: Clinically stable. Continue abx, vent per pulmonary, local wound care / off load DW staff Problems: Consultation Date/Type/Reason Admit Date/Time Jul 31, 2016 at 14:20 Initial Consult Date 08/02/16 Type of Consultation: ID Exam/Review of Systems Vital Signs Vitals Vital Signs Date Time Temp Pulse Resp B/P Pulse Ox O2 Delivery O2 Flow Rate FiO2 08/06/16 11:57 96.2 86 28 131/81 98 08/06/16 11:41 45 08/05/16 14:44 Mechanical Ventilator Intake and Output 08/05/16 08/05/16 08/06/16 15:00 23:00 07:00 Intake Total 2420 ml Balance 2420 ml Results Result Diagram: 08/06/16 0727 08/06/16 0604 Results 24 hrs Laboratory Tests Test 08/05/16 12:16 08/05/16 17:29 08/05/16 21:14 08/06/16 01:39 Bedside Glucose 204 222 H 209 154 Test 08/06/16 05:00 08/06/16 06:04 08/06/16 06:05 08/06/16 06:17 Arterial Blood HCO3 24.7 Arterial Blood Base Excess 0.5 Arterial Blood Oxygen Saturation 95.1 [place] Test ACCEPTAB Arterial Blood Gas Puncture Site Left Radial Arterial Blood Carboxyhemoglobin 0.3 Arterial Blood Date Drawn 08/06/2016 5:04:07 AM Arterial Blood Methemoglobin 0.4 Arterial Blood pCO2 (Temp correct) 37.8 Arterial Blood pH (Temp corrected) 7.433 Arterial Blood pO2 (Temp corrected) 79.2 L Blood Gas A-a O2 Differential 198.7 H Blood Gas Actual Respiration Rate 24 Blood Gas Inspiratory Pressure 32.0 Blood Gas Low PEEP Setting 5.0 Blood Gas Modality VENT - AC Blood Gas Notified Time 08/06/2016 5:21:24 AM Blood Gas Notified Whom RTR Blood Gas Respiration Rate 24.0 Blood Gas Specimen Source Blood arterial Blood Gas Temperature 37.0 Blood Gas Tidal Volume 500.0 FiO2 45.0 Oxyhemoglobin Percent 94.4 Total Hemoglobin 9.7 L Alanine Aminotransferase (ALT/SGPT) 49 Albumin 2.2 L Albumin/Globulin Ratio 0.70 Alkaline Phosphatase 164 H Anion Gap 14 Aspartate Amino Transf (AST/SGOT) 31 Blood Urea Nitrogen 40 H Calcium Level 9.1 Carbon Dioxide Level 26 Chloride Level 104 Creatinine 0.89 Direct Bilirubin 0.00 Globulin 3.10 Glucose Level 170 Indirect Bilirubin 0.0 Potassium Level 3.5 Sodium Level 140 Total Bilirubin 0.0 L Total Protein 5.3 L Lactic Acid Level 1.3 Bedside Glucose 196 Test 08/06/16 06:45 08/06/16 07:27 08/06/16 09:41 Random Vancomycin Level 24.2 Basophils # 0.0 Basophils % 0.1 Eosinophils # 0.4 Eosinophils % 2.0 Hematocrit 22.8 L Hemoglobin 6.9 *L Lymphocytes # 0.7 L Lymphocytes % 3.4 L Mean Corpuscular Hemoglobin 24.7 L Mean Corpuscular Hemoglobin Concent 30.3 L Mean Corpuscular Volume 81.7 L Mean Platelet Volume 9.5 Monocytes # 0.7 Monocytes % 3.7 Neutrophils # 17.2 H Neutrophils % 89.7 H Nucleated Red Blood Cells # 0.0 Nucleated Red Blood Cells % 0.0 Platelet Count 472 H Red Blood Count 2.79 L Red Cell Distribution Width 16.0 H White Blood Count 19.2 H Bedside Glucose 208 Medications Medications Current Medications Ondansetron HCl (Zofran Inj) 4 mg Q6H PRN IV NAUSEA AND/OR VOMITING; Start at 15:00 Acetaminophen (Tylenol Tab) 650 mg Q6H PRN PO PAIN LEVEL 1-3 OR FEVER Last administered on 08/06/16 06:14; Admin Dose 650 MG; Start 07/31/16 at 15:00 Morphine Sulfate (morphine) 2 mg Q4H PRN IV SEVERE PAIN LEVEL 7-10 Last administered on 08/02/16 20:59; Admin Dose 2 MG; Start 07/31/16 at 15:00 Docusate Sodium (Colace) 100 mg Q12H PRN PO CONSTIPATION; Start 07/31/16 at 15: 00 Magnesium Hydroxide (Milk Of Mag) 30 ml DAILY PRN PO CONSTIPATION; Start at 15:00 Sodium Biphosphate/ Sodium Phosphate (Fleet Enema) 133 ml DAILY PRN [place] CONSTIPATION; Start 07/31/16 at 15:00 Famotidine 20 mg 20 mg Q12 IV Last administered on 08/06/16 09:45; Admin Dose 20 MG; Start 07/31/16 at 21:00 Sodium Chloride (NS) 1,000 ml @ 100 mls/hr Q10H IV Last administered on 10:08; Admin Dose 100 MLS/HR; Start 07/31/16 at 14:50 Hydralazine HCl (Apresoline) 10 mg Q6H PRN IV ELEVATED BLOOD PRESSURE; Start at 15:00 Nitroglycerin (Nitroglycerin (Sl Tab) 0.4 Mg) 1 tab Q5M PRN SL ANGINA; Start at 15:00 Insulin Aspart (Novolog Insulin Pen) NOVOLOG *MILD* ALGORI... Q4 SC Last administered on 08/06/16 09:57; Admin Dose 2 UNIT; Start 07/31/16 at 17:00 Miscellaneous Information 1 ea NOTE XX ; Start 07/31/16 at 16:30 Glucose (Glutose) 15 gm Q15M PRN PO DECREASED GLUCOSE; Start 07/31/16 at 16:30 Glucose (Glutose) 22.5 gm Q15M PRN PO DECREASED GLUCOSE; Start 07/31/16 at 16: 30 Dextrose (D50w Syringe) 25 ml Q15M PRN IV DECREASED GLUCOSE; Start 07/31/16 at 16:30 Dextrose (D50w Syringe) 50 ml Q15M PRN IV DECREASED GLUCOSE; Start 07/31/16 at 16:30 Glucagon (Glucagen) 1 mg Q15M PRN IM DECREASED GLUCOSE; Start 07/31/16 at 16:30 Glucose (Glutose) 15 gm Q15M PRN BUCCAL DECREASED GLUCOSE; Start 07/31/16 at 16 :30 Sodium Hypochlorite (Dakin'S (1/4 Strength)) 1 applic BID IRR Last administered on 08/06/16 09:00; Admin Dose 1 APPLIC; Start 08/01/16 at 21:00 Calcium Carbonate (Ca Carbonate) 1,250 mg BID GTB Last administered on 09:45; Admin Dose 1,250 MG; Start 08/01/16 at 22:30 Acetaminophen/ Hydrocodone Bitart ([place] (5/325)) 1 tab Q4H PRN PEG MODERATE PAIN LEVEL 4-6 Last administered on 08/04/16 10:09; Admin Dose 1 TAB; Start 08/02 at 00:00 Lorazepam (Ativan) 0.5 mg Q4H PRN IV ANXIETY Last administered on 08/06/16 06: 03; Admin Dose 0.5 MG; Start 08/02/16 at 00:00 Zolpidem Tartrate (Ambien) 10 mg HS PRN PEG INSOMNIA Last administered on 01:26; Admin Dose 10 MG; Start 08/02/16 at 03:30 Fluconazole (Diflucan) 100 mg DAILY PO Last administered on 08/06/16 09:45; Admin Dose 100 MG; Start 08/02/16 at 12:30 Lactobacillus Acidoph/Bulgaricus (Floranex) 1 tab TID PO Last administered on 09:45; Admin Dose 1 TAB; Start 08/02/16 at 13:00 Ibuprofen (Motrin) 600 mg Q6H PRN PO PAIN OR TEMP ABOVE 38C; Start 08/02/16 at 15:00 Zinc Sulfate (Zinc Sulfate) 220 mg DAILY GTB Last administered on 08/06/16 09: 45; Admin Dose 220 MG; Start 08/03/16 at 11:30 Multivitamins Therapeutic (Theragran) 1 tab DAILY PO Last administered on 09:45; Admin Dose 1 TAB; Start 08/03/16 at 11:30 Ascorbic Acid (Vitamin C) 500 mg BID GTB Last administered on 08/06/16 09:45; Admin Dose 500 MG; Start 08/03/16 at 11:30 Metronidazole (Flagyl) 500 mg Q8 PO Last administered on 08/06/16 06:04; Admin Dose 500 MG; Start 08/03/16 at 12:00 Sodium Hypochlorite (Dakin'S (Dilute 1/40%)) 1 applic BID IRR Last administered on 08/06/16 09:00; Admin Dose 1 APPLIC; Start 08/04/16 at 12:00 Hydromorphone HCl 0.5 mg 0.5 mg Q8H PRN IV PAIN; Start 08/04/16 at 12:00 Colistimethate Sodium/Sodium Chloride (Coly-Mycin/NS) 100 ml @ 200 mls/hr Q24H IVPB Last administered on 08/05/16 16:38; Admin Dose 200 MLS/HR; Start 08/05/16 at 17:00 Linezolid (Zyvox) 600 mg BID PO Last administered on 08/06/16 09:45; Admin Dose 600 MG; Start 08/05/16 at 21:00 LESLIE FERRARO NP Aug 06, 2016 12:06
--- NOTE | 2016-08-06 13:57 | PN ---
Date/Time of Note Date/Time of Note DATE: 08/06/16 TIME: 13:45 Assessment/Plan VTE Prophylaxis VTE Prophylaxis Intervention: SCD's Lines/Catheters IV Catheter Type (from Nrs): PORTACATH Urinary Cath still in place: Yes Reason Cath still needed: other (indicate) Assessment/Plan Assessment/Plan 46-year-old male sent in with fever and diaphoresis with findings of sepsis with hypotension, tachycardia, likely secondary to possible decubitus ulcer worsening infection. 1. Sepsis - sec to resp infection+ UTI + decubitus ulcer infx. 2. Chronic respiratory failure,Vent dependent via trach 3. Recurrent Multifocal bronchitis/bronchiolitis/bronchopneumonia 4. Chronic Dysphagia currently on G-tube feeds. 2/2 #5 5. Chronic quadriplegia 2/2 C2 fracture + chronic neuropathy 6. Multiple infected decubiti down to the bone 7. Severe hypochromic microcytic anemia likely with a component of chronic blood loss from ulcers r/o iron deficiency 8. DM 2 with suboptimal control 9. Cardiomyopathy with ejection fraction 45-50% via echo on previous admission PLAN: Continue abx per ID Speak again with plastic surgery and general surgery regarding definitive plan of care Transfuse 2 units of PRBCs for hgb 6.9 Continue supportive care and all other mgt Gastrointestinal prophylaxis. H2 pam. Deep venous thrombosis prophylaxis. Heparin subcutaneous. Subjective 24 Hr Interval Summary Free Text/Dictation Nursing reports no acute overnight events. patient doing ok, denies any acute issues. we discussed treatment plan. Exam/Review of Systems Vital Signs Vitals Vital Signs Date Time Temp Pulse Resp B/P Pulse Ox O2 Delivery O2 Flow Rate FiO2 08/06/16 12:07 86 08/06/16 11:57 96.2 28 131/81 98 08/06/16 11:41 45 08/05/16 14:44 Mechanical Ventilator Intake and Output 08/05/16 08/05/16 08/06/16 15:00 23:00 07:00 Intake Total 2420 ml Balance 2420 ml Exam GENERAL: The patient is lying in bed, in mild distress, alert HEENT: Pupils equal, round, react to light. Extraocular muscles intact. NECK: Neck brace in place. LUNGS: Clear to auscultation bilaterally. CARDIOVASCULAR: S1 S2 heard, No rubs or gallops. ABDOMEN: Soft, nontender, nondistended. Normal bowel sounds. No rebound or guarding. MUSCULOSKELETAL: Trace pitting edema bilateral lower extremities. NEUROLOGIC: Again, unable to move extremities. Results Result Diagram: 08/06/16 0727 08/06/16 0604 Results 24 hrs Laboratory Tests Test 08/05/16 17:29 08/05/16 21:14 08/06/16 01:39 08/06/16 05:00 Bedside Glucose 222 H 209 154 Arterial Blood HCO3 24.7 Arterial Blood Base Excess 0.5 Arterial Blood Oxygen Saturation 95.1 [place] Test ACCEPTAB Arterial Blood Gas Puncture Site Left Radial Arterial Blood Carboxyhemoglobin 0.3 Arterial Blood Date Drawn 08/06/2016 5:04:07 AM Arterial Blood Methemoglobin 0.4 Arterial Blood pCO2 (Temp correct) 37.8 Arterial Blood pH (Temp corrected) 7.433 Arterial Blood pO2 (Temp corrected) 79.2 L Blood Gas A-a O2 Differential 198.7 H Blood Gas Actual Respiration Rate 24 Blood Gas Inspiratory Pressure 32.0 Blood Gas Low PEEP Setting 5.0 Blood Gas Modality VENT - AC Blood Gas Notified Time 08/06/2016 5:21:24 AM Blood Gas Notified Whom RTR Blood Gas Respiration Rate 24.0 Blood Gas Specimen Source Blood arterial Blood Gas Temperature 37.0 Blood Gas Tidal Volume 500.0 FiO2 45.0 Oxyhemoglobin Percent 94.4 Total Hemoglobin 9.7 L Test 08/06/16 06:04 08/06/16 06:05 08/06/16 06:17 08/06/16 06:45 Alanine Aminotransferase (ALT/SGPT) 49 Albumin 2.2 L Albumin/Globulin Ratio 0.70 Alkaline Phosphatase 164 H Anion Gap 14 Aspartate Amino Transf (AST/SGOT) 31 Blood Urea Nitrogen 40 H Calcium Level 9.1 Carbon Dioxide Level 26 Chloride Level 104 Creatinine 0.89 Direct Bilirubin 0.00 Globulin 3.10 Glucose Level 170 Indirect Bilirubin 0.0 Potassium Level 3.5 Sodium Level 140 Total Bilirubin 0.0 L Total Protein 5.3 L Lactic Acid Level 1.3 Bedside Glucose 196 Random Vancomycin Level 24.2 Test 08/06/16 07:27 08/06/16 09:41 08/06/16 13:05 Basophils # 0.0 Basophils % 0.1 Eosinophils # 0.4 Eosinophils % 2.0 Hematocrit 22.8 L Hemoglobin 6.9 *L Lymphocytes # 0.7 L Lymphocytes % 3.4 L Mean Corpuscular Hemoglobin 24.7 L Mean Corpuscular Hemoglobin Concent 30.3 L Mean Corpuscular Volume 81.7 L Mean Platelet Volume 9.5 Monocytes # 0.7 Monocytes % 3.7 Neutrophils # 17.2 H Neutrophils % 89.7 H Nucleated Red Blood Cells # 0.0 Nucleated Red Blood Cells % 0.0 Platelet Count 472 H Red Blood Count 2.79 L Red Cell Distribution Width 16.0 H White Blood Count 19.2 H Bedside Glucose 208 167 Medications Medications Current Medications Ondansetron HCl (Zofran Inj) 4 mg Q6H PRN IV NAUSEA AND/OR VOMITING; Start at 15:00 Acetaminophen (Tylenol Tab) 650 mg Q6H PRN PO PAIN LEVEL 1-3 OR FEVER Last administered on 08/06/16 06:14; Admin Dose 650 MG; Start 07/31/16 at 15:00 Morphine Sulfate (morphine) 2 mg Q4H PRN IV SEVERE PAIN LEVEL 7-10 Last administered on 08/02/16 20:59; Admin Dose 2 MG; Start 07/31/16 at 15:00 Docusate Sodium (Colace) 100 mg Q12H PRN PO CONSTIPATION; Start 07/31/16 at 15: 00 Magnesium Hydroxide (Milk Of Mag) 30 ml DAILY PRN PO CONSTIPATION; Start at 15:00 Sodium Biphosphate/ Sodium Phosphate (Fleet Enema) 133 ml DAILY PRN [place] CONSTIPATION; Start 07/31/16 at 15:00 Famotidine 20 mg 20 mg Q12 IV Last administered on 08/06/16 09:45; Admin Dose 20 MG; Start 07/31/16 at 21:00 Sodium Chloride (NS) 1,000 ml @ 100 mls/hr Q10H IV Last administered on 10:08; Admin Dose 100 MLS/HR; Start 07/31/16 at 14:50 Hydralazine HCl (Apresoline) 10 mg Q6H PRN IV ELEVATED BLOOD PRESSURE; Start at 15:00 Nitroglycerin (Nitroglycerin (Sl Tab) 0.4 Mg) 1 tab Q5M PRN SL ANGINA; Start at 15:00 Insulin Aspart (Novolog Insulin Pen) NOVOLOG *MILD* ALGORI... Q4 SC Last administered on 08/06/16 13:07; Admin Dose 1 UNIT; Start 07/31/16 at 17:00 Miscellaneous Information 1 ea NOTE XX ; Start 07/31/16 at 16:30 Glucose (Glutose) 15 gm Q15M PRN PO DECREASED GLUCOSE; Start 07/31/16 at 16:30 Glucose (Glutose) 22.5 gm Q15M PRN PO DECREASED GLUCOSE; Start 07/31/16 at 16: 30 Dextrose (D50w Syringe) 25 ml Q15M PRN IV DECREASED GLUCOSE; Start 07/31/16 at 16:30 Dextrose (D50w Syringe) 50 ml Q15M PRN IV DECREASED GLUCOSE; Start 07/31/16 at 16:30 Glucagon (Glucagen) 1 mg Q15M PRN IM DECREASED GLUCOSE; Start 07/31/16 at 16:30 Glucose (Glutose) 15 gm Q15M PRN BUCCAL DECREASED GLUCOSE; Start 07/31/16 at 16 :30 Sodium Hypochlorite (Dakin'S (1/4 Strength)) 1 applic BID IRR Last administered on 08/06/16 09:00; Admin Dose 1 APPLIC; Start 08/01/16 at 21:00 Calcium Carbonate (Ca Carbonate) 1,250 mg BID GTB Last administered on 09:45; Admin Dose 1,250 MG; Start 08/01/16 at 22:30 Acetaminophen/ Hydrocodone Bitart ([place] (5/325)) 1 tab Q4H PRN PEG MODERATE PAIN LEVEL 4-6 Last administered on 08/04/16 10:09; Admin Dose 1 TAB; Start 08/02 at 00:00 Lorazepam (Ativan) 0.5 mg Q4H PRN IV ANXIETY Last administered on 08/06/16 06: 03; Admin Dose 0.5 MG; Start 08/02/16 at 00:00 Zolpidem Tartrate (Ambien) 10 mg HS PRN PEG INSOMNIA Last administered on 01:26; Admin Dose 10 MG; Start 08/02/16 at 03:30 Fluconazole (Diflucan) 100 mg DAILY PO Last administered on 08/06/16 09:45; Admin Dose 100 MG; Start 08/02/16 at 12:30 Lactobacillus Acidoph/Bulgaricus (Floranex) 1 tab TID PO Last administered on 13:22; Admin Dose 1 TAB; Start 08/02/16 at 13:00 Ibuprofen (Motrin) 600 mg Q6H PRN PO PAIN OR TEMP ABOVE 38C; Start 08/02/16 at 15:00 Zinc Sulfate (Zinc Sulfate) 220 mg DAILY GTB Last administered on 08/06/16 09: 45; Admin Dose 220 MG; Start 08/03/16 at 11:30 Multivitamins Therapeutic (Theragran) 1 tab DAILY PO Last administered on 09:45; Admin Dose 1 TAB; Start 08/03/16 at 11:30 Ascorbic Acid (Vitamin C) 500 mg BID GTB Last administered on 08/06/16 09:45; Admin Dose 500 MG; Start 08/03/16 at 11:30 Metronidazole (Flagyl) 500 mg Q8 PO Last administered on 08/06/16 13:22; Admin Dose 500 MG; Start 08/03/16 at 12:00 Sodium Hypochlorite (Dakin'S (Dilute 1/40%)) 1 applic BID IRR Last administered on 08/06/16 09:00; Admin Dose 1 APPLIC; Start 08/04/16 at 12:00 Hydromorphone HCl 0.5 mg 0.5 mg Q8H PRN IV PAIN; Start 08/04/16 at 12:00 Colistimethate Sodium/Sodium Chloride (Coly-Mycin/NS) 100 ml @ 200 mls/hr Q24H IVPB Last administered on 08/05/16 16:38; Admin Dose 200 MLS/HR; Start 08/05/16 at 17:00 Linezolid (Zyvox) 600 mg BID PO Last administered on 08/06/16 09:45; Admin Dose 600 MG; Start 08/05/16 at 21:00 ALDO BRADEN Aug 06, 2016 13:55
[2016-08-06] MEDS ORDERED: FUROSEMIDE 20 MG INJ IV ONE (14:00)
[2016-08-06] MEDS: HYDROmorphONE 1 MG/ML SYG IV PRN (16:01)
[2016-08-06] MEDS: COLISTIMETHATE 150 MG in SOD CHLORIDE 0.9% 100 ML IVPB SCH (16:25)
--- NOTE | 2016-08-06 17:33 | PN ---
Date/Time of Note Date/Time of Note DATE: 08/06/16 TIME: 17:29 Assessment/Plan Lines/Catheters IV Catheter Type (from Nrs): PORTACATH Oliveira in Place (from Nrs): Yes Assessment/Plan Assessment/Plan 46-year-old quadriplegic male with multiple stage IV decubitus ulcers and sepsis. * Etiology of sepsis likely multifactorial and includes urinary tract infection , pneumonia, and sacral decubiti * Cultures growing multidrug resistant organisms * Continue broad-spectrum intravenous antibiotics per ID * Continue recommendations per wound care nurse * Plastic surgeon has apparently been consult and is recommending diverting colostomy prior to flap repair of decubiti. * I discussed this with the patient in detail along with all risks and benefits of both operative and nonoperative intervention. He understands, and though hesitant, agrees to colostomy as he understands that the benefits outweighed the risks of nonoperative management. * Will discuss with primary care team regarding medical clearance. Subjective 24 Hr Interval Summary No acute events. Afebrile. Exam/Review of Systems Vital Signs Vitals Vital Signs Date Time Temp Pulse Resp B/P Pulse Ox O2 Delivery O2 Flow Rate FiO2 08/06/16 16:21 97.2 102 25 121/70 99 08/06/16 15:05 45 08/06/16 12:44 Mechanical Ventilator Intake and Output 08/05/16 08/05/16 08/06/16 15:00 23:00 07:00 Intake Total 2420 ml Balance 2420 ml Exam Free Text/Dictation GENERAL: The patient is lying in bed, awake on the ventilator ABDOMEN: Soft, nondistended. PEG in place WOUNDS: dressed Results Result Diagram: 08/06/16 0727 08/06/16 0604 ALEKSANDR ROBERTS MD Aug 06, 2016 17:33
[2016-08-06] MEDS: HYDROCODONE/APAP (5/325) TAB PEG PRN (18:09)
[2016-08-07] VITALS (25 sets, daily range): BP systolic 104–131; BP diastolic 56–78; PULSE 112–132; RESP 20–26
[2016-08-07] MEDS: ALBUTEROL/IPRATROPIUM (NEB) 3 ML AMP HHN PRN ×2 (00:03→20:28)
[2016-08-07] MEDS: ACETAMINOPHEN 325 MG TAB PO PRN ×2 (00:35→13:42)
[2016-08-07] MEDS: ZOLPIDEM 5 MG TAB PEG PRN (00:35)
[2016-08-07] MEDS: INSULIN ASPART [NOVOLOG] 3 ML PEN SC SCH ×6 (01:00→20:54)
[2016-08-07] MEDS ORDERED: TOBRAMYCIN 400 MG in SOD CHLORIDE 0.9% 100 ML IVPB SCH (01:00)
[2016-08-07] MEDS: SOD CHLORIDE 0.9% 1,000 ML IV SCH (01:23)
--- NOTE | 2016-08-07 01:41 | EN ---
Date/Time of Note Date/Time of Note DATE: 08/07/16 TIME: 01:36 Event Note Medicine Medicine Event Note Rapid Response Called. Patient became briefly non-responsive after reporting visual changes. On my arrival, patient was back to baseline, but his heart rate was elevated to 140. Patient was mouthing the words "help me" and "I can't breathe". C2 Quad. He has a history of anxiety. Today, he received 2 units of blood - the second one started at 1745. His temp went from 97.6 to 99.3 with the transfusion. Approximately 11pm temp was 100.4. Doubt transfusion reaction. On exam, patient is alert. Heart is tachy but regular. Lungs clear. O2 sat normal.Temp still 100.4. EKG: Sinus Tach at 141, QS in aVF. No significant ST changes. STAT LABS: CBC, CMP,Lactic Acid, Trop I. BRII DAVIS MD Aug 07, 2016 01:41
--- NOTE | 2016-08-07 02:11 | HP ---
Date/Time of Note Date/Time of Note DATE: 08/07/16 TIME: 02:10 Assessment/Plan Lines/Catheters IV Catheter Type (from Nrs): PORTACATH Urinary Cath still in place: Yes HPI/ROS Admit Date/Time Admit Date/Time Jul 31, 2016 at 14:20 Hx of Present Illness acute kidney PMH/Family/Social Social History Alcohol Use: none Smoking Status: Former smoker Exam/Review of Systems Vital Signs Vitals Vital Signs Date Time Temp Pulse Resp B/P Pulse Ox O2 Delivery O2 Flow Rate FiO2 08/07/16 00:50 120 08/07/16 00:37 97.9 24 115/65 95 08/07/16 00:02 45 08/06/16 12:44 Mechanical Ventilator Intake and Output 08/06/16 08/06/16 08/07/16 15:00 23:00 07:00 Intake Total 1950 ml 2450 ml Output Total 2400 ml Balance -450 ml 2450 ml Labs Result Diagram: 08/06/16 0727 08/06/16 0604 Medications Medications Current Medications Ondansetron HCl (Zofran Inj) 4 mg Q6H PRN IV NAUSEA AND/OR VOMITING; Start at 15:00 Acetaminophen (Tylenol Tab) 650 mg Q6H PRN PO PAIN LEVEL 1-3 OR FEVER Last administered on 08/07/16 00:35; Admin Dose 650 MG; Start 07/31/16 at 15:00 Morphine Sulfate (morphine) 2 mg Q4H PRN IV SEVERE PAIN LEVEL 7-10 Last administered on 08/02/16 20:59; Admin Dose 2 MG; Start 07/31/16 at 15:00 Docusate Sodium (Colace) 100 mg Q12H PRN PO CONSTIPATION; Start 07/31/16 at 15: 00 Magnesium Hydroxide (Milk Of Mag) 30 ml DAILY PRN PO CONSTIPATION; Start at 15:00 Sodium Biphosphate/ Sodium Phosphate (Fleet Enema) 133 ml DAILY PRN IN CONSTIPATION; Start 07/31/16 at 15:00 Famotidine 20 mg 20 mg Q12 IV Last administered on 08/06/16 20:54; Admin Dose 20 MG; Start 07/31/16 at 21:00 Sodium Chloride (NS) 1,000 ml @ 60 mls/hr [id number] IV Last administered on 10:08; Admin Dose 100 MLS/HR; Start 07/31/16 at 14:50 Hydralazine HCl (Apresoline) 10 mg Q6H PRN IV ELEVATED BLOOD PRESSURE; Start at 15:00 Nitroglycerin (Nitroglycerin (Sl Tab) 0.4 Mg) 1 tab Q5M PRN SL ANGINA; Start at 15:00 Insulin Aspart (Novolog Insulin Pen) NOVOLOG *MILD* ALGORI... Q4 SC Last administered on 08/06/16 23:11; Admin Dose 1 UNIT; Start 07/31/16 at 17:00 Miscellaneous Information 1 ea NOTE XX ; Start 07/31/16 at 16:30 Glucose (Glutose) 15 gm Q15M PRN PO DECREASED GLUCOSE; Start 07/31/16 at 16:30 Glucose (Glutose) 22.5 gm Q15M PRN PO DECREASED GLUCOSE; Start 07/31/16 at 16: 30 Dextrose (D50w Syringe) 25 ml Q15M PRN IV DECREASED GLUCOSE; Start 07/31/16 at 16:30 Dextrose (D50w Syringe) 50 ml Q15M PRN IV DECREASED GLUCOSE; Start 07/31/16 at 16:30 Glucagon (Glucagen) 1 mg Q15M PRN IM DECREASED GLUCOSE; Start 07/31/16 at 16:30 Glucose (Glutose) 15 gm Q15M PRN BUCCAL DECREASED GLUCOSE; Start 07/31/16 at 16 :30 Sodium Hypochlorite (Dakin'S (1/4 Strength)) 1 applic BID IRR Last administered on 08/06/16 21:00; Admin Dose 1 APPLIC; Start 08/01/16 at 21:00 Calcium Carbonate (Ca Carbonate) 1,250 mg BID GTB Last administered on 20:54; Admin Dose 1,250 MG; Start 08/01/16 at 22:30 Acetaminophen/ Hydrocodone Bitart ([place] (5/325)) 1 tab Q4H PRN PEG MODERATE PAIN LEVEL 4-6 Last administered on 08/06/16 18:09; Admin Dose 1 TAB; Start 08/02 at 00:00 Lorazepam (Ativan) 0.5 mg Q4H PRN IV ANXIETY Last administered on 08/06/16 20: 55; Admin Dose 0.5 MG; Start 08/02/16 at 00:00 Zolpidem Tartrate (Ambien) 10 mg HS PRN PEG INSOMNIA Last administered on 00:35; Admin Dose 10 MG; Start 08/02/16 at 03:30 Fluconazole (Diflucan) 100 mg DAILY PO Last administered on 08/06/16 09:45; Admin Dose 100 MG; Start 08/02/16 at 12:30 Lactobacillus Acidoph/Bulgaricus (Floranex) 1 tab TID PO Last administered on 20:54; Admin Dose 1 TAB; Start 08/02/16 at 13:00 Ibuprofen (Motrin) 600 mg Q6H PRN PO PAIN OR TEMP ABOVE 38C; Start 08/02/16 at 15:00 Zinc Sulfate (Zinc Sulfate) 220 mg DAILY GTB Last administered on 08/06/16 09: 45; Admin Dose 220 MG; Start 08/03/16 at 11:30 Multivitamins Therapeutic (Theragran) 1 tab DAILY PO Last administered on 09:45; Admin Dose 1 TAB; Start 08/03/16 at 11:30 Ascorbic Acid (Vitamin C) 500 mg BID GTB Last administered on 08/06/16 20:54; Admin Dose 500 MG; Start 08/03/16 at 11:30 Metronidazole (Flagyl) 500 mg Q8 PO Last administered on 08/06/16 20:54; Admin Dose 500 MG; Start 08/03/16 at 12:00 Sodium Hypochlorite (Dakin'S (Dilute 1/40%)) 1 applic BID IRR Last administered on 08/06/16 21:00; Admin Dose 1 APPLIC; Start 08/04/16 at 12:00 Hydromorphone HCl 0.5 mg 0.5 mg Q8H PRN IV PAIN Last administered on 08/06/16 16:01; Admin Dose 0.5 MG; Start 08/04/16 at 12:00 Colistimethate Sodium/Sodium Chloride (Coly-Mycin/NS) 100 ml @ 200 mls/hr Q24H IVPB Last administered on 08/06/16 16:25; Admin Dose 200 MLS/HR; Start 08/05/16 at 17:00 Linezolid (Zyvox) 600 mg BID PO Last administered on 08/06/16t 20:54; Admin Dose 600 MG; Start 08/05/16 at 21:00 BRII DAVIS MD Aug 07, 2016 02:10
[2016-08-07] MEDS: LORAZEPAM 2 MG INJ IV PRN ×3 (02:24→21:44)
[2016-08-07 02:47] LABS: ADD SCAN DIFF NO
[2016-08-07 02:50] LABS: ABNORMAL IP MESSAGE 1; BASOPHILS % 0.1 % (0.0-2.0); EOSINOPHILS # 0.2 10^3/ul (0.0-0.5); HEMOGLOBIN 8.1 g/dl (14.0-18.0); LYMPHOCYTES # 0.6 10^3/ul (0.8-2.9); LYMPHOCYTES % 2.7 % (15.0-51.0); MEAN CORPUSCULAR HEMOGLOBIN 25.6 pg (29.0-33.0); MEAN CORPUSCULAR HGB CONC 31.2 g/dl (32.0-37.0); MEAN PLATELET VOLUME 9.8 fl (7.4-10.4); MONOCYTE # 0.5 10^3/ul (0.3-0.9); NEUTROPHIL # 21.6 10^3/ul (1.6-7.5); NEUTROPHILS % 92.7 % (39.0-77.0); PLATELET COUNT 521 10^3/UL (140-415); RED BLOOD COUNT 3.17 10^6/ul (4.70-6.10); RED CELL DISTRIBUTION WIDTH 16.2 % (11.5-14.5); WHITE BLOOD COUNT 23.3 10^3/ul (4.8-10.8)
[2016-08-07 03:20] LABS: ALBUMIN 2.1 g/dl (3.3-4.9); CHLORIDE 106 mmol/L (97-110)
[2016-08-07 03:21] LABS: POTASSIUM 4.1 mmol/L (3.5-5.1); SODIUM 143 mmol/L (135-144)
[2016-08-07 03:23] LABS: ALKALINE PHOSPHATASE 169 IU/L (42-121); ANION GAP 15 (8-16); ASPARTATE AMINO TRANSFERASE 35 IU/L (15-46); CARBON DIOXIDE 26 mmol/L (21-31); CREATININE 0.88 mg/dl (0.61-1.24); TOTAL PROTEIN 5.1 g/dl (6.1-8.1)
[2016-08-07 03:24] LABS: ALANINE AMINOTRANSFERASE 43 IU/L (13-69); BLOOD UREA NITROGEN 40 mg/dl (7-20); CALCIUM 8.9 mg/dl (8.4-10.2); GLUCOSE 137 mg/dl (70-220)
[2016-08-07 03:57] LABS: TROPONIN-I < 0.012 ng/ml (0.00-0.12)
[2016-08-07] MEDS: metroNIDAZOLE 500 MG TAB PO SCH ×3 (06:44→23:12)
[2016-08-07] MEDS: ZINC SULFATE 220 MG CAP GTB SCH (09:57)
[2016-08-07] MEDS: FAMOTIDINE 20 MG INJ IV SCH ×2 (09:57→20:47)
[2016-08-07] MEDS: CA CARBONATE (250 MG/ML) 5ML CUP GTB SCH ×2 (09:57→20:48)
[2016-08-07] MEDS: SODIUM HYPOCHLORITE 0.125% 473 ML BTL IRR SCH ×2 (09:58→21:34)
[2016-08-07] MEDS: FLUCONAZOLE 100 MG TAB PO SCH (09:58)
[2016-08-07] MEDS: MULTIVITAMINS THERAPEUTIC TAB PO SCH (09:58)
[2016-08-07] MEDS: LACTOBACILLUS CHEW TAB PO SCH ×3 (09:58→20:47)
[2016-08-07] MEDS: ASCORBIC ACID 500 MG TAB GTB SCH ×2 (09:58→20:47)
[2016-08-07] MEDS: SODIUM HYPOCHLORITE 1/40% 1L IRRIG IRR SCH ×2 (09:58→21:00)
[2016-08-07] MEDS: ZYVOX 600 MG TAB PO SCH ×2 (09:58→20:48)
--- NOTE | 2016-08-07 10:36 | CONS ---
Date/Time of Note Date/Time of Note DATE: 08/07/16 TIME: 10:33 Assessment/Plan Assessment/Plan Additional Assessment/Plan Ventilator settings; assist control 24, tidal volume 500, PEEP of 5,95% FiO2. Assessment and recommendations; 1. Patient with history of chronic respiratory failure due to C2 spinal injury. Remains ventilator dependent. 2. Increasing leukocytosis with bilateral pneumonia and multiple sacral decubitus ulcers growing multiple organisms. Patient currently on broad- spectrum antibiotic coverage. Continue current supportive care. Will obtain follow-up chest x-ray. Consider adding aminoglycosides. Consultation Date/Type/Reason Admit Date/Time Jul 31, 2016 at 14:20 Initial Consult Date 08/02/16 Type of Consultation: Pulmonary 24 HR Interval Summary Free Text/Dictation Patient condition remains slightly unstable. Requiring high FiO2 for O2 saturation maintenance. Patient however has remained hemodynamically stable. General exam; young male, on ventilator via tracheostomy awake and alert. Currently in no distress. Exam/Review of Systems Vital Signs Vitals Vital Signs Date Time Temp Pulse Resp B/P Pulse Ox O2 Delivery O2 Flow Rate FiO2 08/07/16 09:05 105 24 98 95 08/07/16 08:10 98.8 131/78 08/06/16 12:44 Mechanical Ventilator Intake and Output 08/06/16 08/06/16 08/07/16 15:00 23:00 07:00 Intake Total 1950 ml 2450 ml Output Total 2400 ml Balance -450 ml 2450 ml Exam HEENT examination; patient's neck is in a soft cervical collar suppleness of neck was not evaluated. Ileostomy in place with clean insertion site. Pupils are midsize reactive to light. No neck masses. Chest examination; diminished breath on lung bases bilaterally. S1-S2 audible, no murmurs. Regular rhythm. Abdomen examination; soft, G-tube in place. No organomegaly, nondistended. Extremity examination; no peripheral edema. Back examination; multiple sacral ulcers are present coordinate dressing. CARE TRANSITION MGR examination; patient is stable quadriplegia. Results Result Diagram: 08/07/16 0215 08/07/16 0215 Results 24 hrs Laboratory Tests Test 08/06/16 13:05 08/06/16 17:03 08/06/16 22:55 08/07/16 01:10 Bedside Glucose 167 162 166 158 Test 08/07/16 02:15 08/07/16 06:43 08/07/16 09:55 Alanine Aminotransferase (ALT/SGPT) 43 Albumin 2.1 L Albumin/Globulin Ratio 0.70 Alkaline Phosphatase 169 H Anion Gap 15 Aspartate Amino Transf (AST/SGOT) 35 Basophils # 0.0 Basophils % 0.1 Blood Urea Nitrogen 40 H Calcium Level 8.9 Carbon Dioxide Level 26 Chloride Level 106 Creatinine 0.88 Direct Bilirubin 0.00 Eosinophils # 0.2 Eosinophils % 1.0 Globulin 3.00 Glucose Level 137 Hematocrit 26.0 L Hemoglobin 8.1 L Indirect Bilirubin 0.0 Lactic Acid Level 1.6 Lymphocytes # 0.6 L Lymphocytes % 2.7 L Mean Corpuscular Hemoglobin 25.6 L Mean Corpuscular Hemoglobin Concent 31.2 L Mean Corpuscular Volume 82.0 Mean Platelet Volume 9.8 Monocytes # 0.5 Monocytes % 2.0 Neutrophils # 21.6 H Neutrophils % 92.7 H Nucleated Red Blood Cells # 0.0 Nucleated Red Blood Cells % 0.0 Platelet Count 521 H Potassium Level 4.1 Red Blood Count 3.17 L Red Cell Distribution Width 16.2 H Sodium Level 143 Total Bilirubin 0.0 L Total Protein 5.1 L Troponin I < 0.012 White Blood Count 23.3 #H Bedside Glucose 190 146 Medications Medications Current Medications Ondansetron HCl (Zofran Inj) 4 mg Q6H PRN IV NAUSEA AND/OR VOMITING; Start at 15:00 Acetaminophen (Tylenol Tab) 650 mg Q6H PRN PO PAIN LEVEL 1-3 OR FEVER Last administered on 08/07/16 00:35; Admin Dose 650 MG; Start 07/31/16 at 15:00 Morphine Sulfate (morphine) 2 mg Q4H PRN IV SEVERE PAIN LEVEL 7-10 Last administered on 08/02/16 20:59; Admin Dose 2 MG; Start 07/31/16 at 15:00 Docusate Sodium (Colace) 100 mg Q12H PRN PO CONSTIPATION; Start 07/31/16 at 15: 00 Magnesium Hydroxide (Milk Of Mag) 30 ml DAILY PRN PO CONSTIPATION; Start at 15:00 Sodium Biphosphate/ Sodium Phosphate (Fleet Enema) 133 ml DAILY PRN [place] CONSTIPATION; Start 07/31/16 at 15:00 Famotidine 20 mg 20 mg Q12 IV Last administered on 08/07/16 09:57; Admin Dose 20 MG; Start 07/31/16 at 21:00 Sodium Chloride (NS) 1,000 ml @ 60 mls/hr [id number] IV Last administered on 10:08; Admin Dose 100 MLS/HR; Start 07/31/16 at 14:50 Hydralazine HCl (Apresoline) 10 mg Q6H PRN IV ELEVATED BLOOD PRESSURE; Start at 15:00 Nitroglycerin (Nitroglycerin (Sl Tab) 0.4 Mg) 1 tab Q5M PRN SL ANGINA; Start at 15:00 Insulin Aspart (Novolog Insulin Pen) NOVOLOG *MILD* ALGORI... Q4 SC Last administered on 08/07/16 10:07; Admin Dose 1 UNIT; Start 07/31/16 at 17:00 Miscellaneous Information 1 ea NOTE XX ; Start 07/31/16 at 16:30 Glucose (Glutose) 15 gm Q15M PRN PO DECREASED GLUCOSE; Start 07/31/16 at 16:30 Glucose (Glutose) 22.5 gm Q15M PRN PO DECREASED GLUCOSE; Start 07/31/16 at 16: 30 Dextrose (D50w Syringe) 25 ml Q15M PRN IV DECREASED GLUCOSE; Start 07/31/16 at 16:30 Dextrose (D50w Syringe) 50 ml Q15M PRN IV DECREASED GLUCOSE; Start 07/31/16 at 16:30 Glucagon (Glucagen) 1 mg Q15M PRN IM DECREASED GLUCOSE; Start 07/31/16 at 16:30 Glucose (Glutose) 15 gm Q15M PRN BUCCAL DECREASED GLUCOSE; Start 07/31/16 at 16 :30 Sodium Hypochlorite (Dakin'S (1/4 Strength)) 1 applic BID IRR Last administered on 08/07/16 09:58; Admin Dose 1 APPLIC; Start 08/01/16 at 21:00 Calcium Carbonate (Ca Carbonate) 1,250 mg BID GTB Last administered on 09:57; Admin Dose 1,250 MG; Start 08/01/16 at 22:30 Acetaminophen/ Hydrocodone Bitart ([place] (5/325)) 1 tab Q4H PRN PEG MODERATE PAIN LEVEL 4-6 Last administered on 08/06/16 18:09; Admin Dose 1 TAB; Start 08/02 at 00:00 Lorazepam (Ativan) 0.5 mg Q4H PRN IV ANXIETY Last administered on 08/07/16 02: 24; Admin Dose 0.5 MG; Start 08/02/16 at 00:00 Zolpidem Tartrate (Ambien) 10 mg HS PRN PEG INSOMNIA Last administered on 00:35; Admin Dose 10 MG; Start 08/02/16 at 03:30 Fluconazole (Diflucan) 100 mg DAILY PO Last administered on 08/07/16 09:58; Admin Dose 100 MG; Start 08/02/16 at 12:30 Lactobacillus Acidoph/Bulgaricus (Floranex) 1 tab TID PO Last administered on 09:58; Admin Dose 1 TAB; Start 08/02/16 at 13:00 Ibuprofen (Motrin) 600 mg Q6H PRN PO PAIN OR TEMP ABOVE 38C; Start 08/02/16 at 15:00 Zinc Sulfate (Zinc Sulfate) 220 mg DAILY GTB Last administered on 08/07/16 09: 57; Admin Dose 220 MG; Start 08/03/16 at 11:30 Multivitamins Therapeutic (Theragran) 1 tab DAILY PO Last administered on 09:58; Admin Dose 1 TAB; Start 08/03/16 at 11:30 Ascorbic Acid (Vitamin C) 500 mg BID GTB Last administered on 08/07/16 09:58; Admin Dose 500 MG; Start 08/03/16 at 11:30 Metronidazole (Flagyl) 500 mg Q8 PO Last administered on 08/07/16 06:44; Admin Dose 500 MG; Start 08/03/16 at 12:00 Sodium Hypochlorite (Dakin'S (Dilute 1/40%)) 1 applic BID IRR Last administered on 08/07/16 09:58; Admin Dose 1 APPLIC; Start 08/04/16 at 12:00 Hydromorphone HCl 0.5 mg 0.5 mg Q8H PRN IV PAIN Last administered on 08/06/16 16:01; Admin Dose 0.5 MG; Start 08/04/16 at 12:00 Colistimethate Sodium/Sodium Chloride (Coly-Mycin/NS) 100 ml @ 200 mls/hr Q24H IVPB Last administered on 08/06/16 16:25; Admin Dose 200 MLS/HR; Start 08/05/16 at 17:00 Linezolid (Zyvox) 600 mg BID PO Last administered on 08/07/16 09:58; Admin Dose 600 MG; Start 08/05/16 at 21:00 ALISSON ARRIOLA Aug 07, 2016 10:36
--- NOTE | 2016-08-07 12:26 | PN ---
Date/Time of Note Date/Time of Note DATE: 08/07/16 TIME: 11:50 Assessment/Plan VTE Prophylaxis VTE Prophylaxis Intervention: heparin Lines/Catheters IV Catheter Type (from [facility]): Nani cath Urinary Cath still in place: Yes Reason Cath still needed: other (indicate) Assessment/Plan Assessment/Plan 46-year-old male sent in with fever and diaphoresis with findings of sepsis with hypotension, tachycardia, likely secondary to possible decubitus ulcer worsening infection. 1. Sepsis - sec to resp infection+ UTI + decubitus ulcer infx. 2. Chronic respiratory failure,Vent dependent via trach 3. Recurrent Multifocal bronchitis/bronchiolitis/bronchopneumonia 4. Chronic Dysphagia currently on G-tube feeds. 2/2 #5 5. Chronic quadriplegia 2/2 C2 fracture + chronic neuropathy / with cervical collar still in place 6. Multiple infected decubiti down to the bone 7. Severe hypochromic microcytic anemia likely with a component of chronic blood loss from ulcers r/o iron deficiency 8. DM 2 with suboptimal control 9. Cardiomyopathy with ejection fraction 45-50% via echo on previous admission PLAN: Will obtain CXR / Echo reviewed/ start short course of diuresis as kidney function permits. r/o ACS / consider Cardio consult Continue abx per ID Spoke with patient and significant other Continue supportive care and all other mgt Gastrointestinal prophylaxis. H2 pam. Deep venous thrombosis prophylaxis. Heparin subcutaneous. Subjective 24 Hr Interval Summary Free Text/Dictation Patient seen and examined. feels like he cannot breathe despite the ventilator Exam/Review of Systems Vital Signs Vitals Vital Signs Date Time Temp Pulse Resp B/P Pulse Ox O2 Delivery O2 Flow Rate FiO2 08/07/16 11:30 112 24 99 95 08/07/16 11:15 98.6 115/66 08/06/16 12:44 Mechanical Ventilator Intake and Output 08/06/16 08/06/16 08/07/16 15:00 23:00 07:00 Intake Total 1950 ml 2450 ml Output Total 2400 ml Balance -450 ml 2450 ml Exam GENERAL: The patient is lying in bed, in mild distress, alert HEENT: Pupils equal, round, react to light. Extraocular muscles intact. NECK: Cervical collar / Neck brace in place. LUNGS: Clear to auscultation bilaterally. CARDIOVASCULAR: S1 S2 heard, No rubs or gallops. ABDOMEN: Soft, nontender, nondistended. Normal bowel sounds. No rebound or guarding. MUSCULOSKELETAL: Trace pitting edema bilateral lower extremities. NEUROLOGIC: Again, unable to move extremities. Results Result Diagram: 08/07/1621408/07/16214 Results 24 hrs Laboratory Tests Test 08/06/16 13:05 08/06/16 17:03 08/06/16 22:55 08/07/16 01:10 Bedside Glucose 167 162 166 158 Test 08/07/16 02:15 08/07/16 06:43 08/07/16 09:55 Alanine Aminotransferase (ALT/SGPT) 43 Albumin 2.1 L Albumin/Globulin Ratio 0.70 Alkaline Phosphatase 169 H Anion Gap 15 Aspartate Amino Transf (AST/SGOT) 35 Basophils # 0.0 Basophils % 0.1 Blood Urea Nitrogen 40 H Calcium Level 8.9 Carbon Dioxide Level 26 Chloride Level 106 Creatinine 0.88 Direct Bilirubin 0.00 Eosinophils # 0.2 Eosinophils % 1.0 Globulin 3.00 Glucose Level 137 Hematocrit 26.0 L Hemoglobin 8.1 L Indirect Bilirubin 0.0 Lactic Acid Level 1.6 Lymphocytes # 0.6 L Lymphocytes % 2.7 L Mean Corpuscular Hemoglobin 25.6 L Mean Corpuscular Hemoglobin Concent 31.2 L Mean Corpuscular Volume 82.0 Mean Platelet Volume 9.8 Monocytes # 0.5 Monocytes % 2.0 Neutrophils # 21.6 H Neutrophils % 92.7 H Nucleated Red Blood Cells # 0.0 Nucleated Red Blood Cells % 0.0 Platelet Count 521 H Potassium Level 4.1 Red Blood Count 3.17 L Red Cell Distribution Width 16.2 H Sodium Level 143 Total Bilirubin 0.0 L Total Protein 5.1 L Troponin I < 0.012 White Blood Count 23.3 #H Bedside Glucose 190 146 Medications Medications Current Medications Ondansetron HCl (Zofran Inj) 4 mg Q6H PRN IV NAUSEA AND/OR VOMITING; Start at 15:00 Acetaminophen (Tylenol Tab) 650 mg Q6H PRN PO PAIN LEVEL 1-3 OR FEVER Last administered on 08/07/16 00:35; Admin Dose 650 MG; Start 07/31/16 at 15:00 Morphine Sulfate (morphine) 2 mg Q4H PRN IV SEVERE PAIN LEVEL 7-10 Last administered on 3/2/17at 20:59; Admin Dose 2 MG; Start 07/31/16 at 15:00 Docusate Sodium (Colace) 100 mg Q12H PRN PO CONSTIPATION; Start 07/31/16 at 15: 00 Magnesium Hydroxide (Milk Of Mag) 30 ml DAILY PRN PO CONSTIPATION; Start at 15:00 Sodium Biphosphate/ Sodium Phosphate (Fleet Enema) 133 ml DAILY PRN [place] CONSTIPATION; Start 07/31/16 at 15:00 Famotidine 20 mg 20 mg Q12 IV Last administered on 08/07/16 09:57; Admin Dose 20 MG; Start 07/31/16 at 21:00 Sodium Chloride (NS) 1,000 ml @ 60 mls/hr [id number] IV Last administered on 10:08; Admin Dose 100 MLS/HR; Start 07/31/16 at 14:50 Hydralazine HCl (Apresoline) 10 mg Q6H PRN IV ELEVATED BLOOD PRESSURE; Start at 15:00 Nitroglycerin (Nitroglycerin (Sl Tab) 0.4 Mg) 1 tab Q5M PRN SL ANGINA; Start at 15:00 Insulin Aspart (Novolog Insulin Pen) NOVOLOG *MILD* ALGORI... Q4 SC Last administered on 08/07/16 10:07; Admin Dose 1 UNIT; Start 07/31/16 at 17:00 Miscellaneous Information 1 ea NOTE XX ; Start 07/31/16 at 16:30 Glucose (Glutose) 15 gm Q15M PRN PO DECREASED GLUCOSE; Start 07/31/16 at 16:30 Glucose (Glutose) 22.5 gm Q15M PRN PO DECREASED GLUCOSE; Start 07/31/16 at 16: 30 Dextrose (D50w Syringe) 25 ml Q15M PRN IV DECREASED GLUCOSE; Start 07/31/16 at 16:30 Dextrose (D50w Syringe) 50 ml Q15M PRN IV DECREASED GLUCOSE; Start 07/31/16 at 16:30 Glucagon (Glucagen) 1 mg Q15M PRN IM DECREASED GLUCOSE; Start 07/31/16 at 16:30 Glucose (Glutose) 15 gm Q15M PRN BUCCAL DECREASED GLUCOSE; Start 07/31/16 at 16 :30 Sodium Hypochlorite (Dakin'S (1/4 Strength)) 1 applic BID IRR Last administered on 08/07/16 09:58; Admin Dose 1 APPLIC; Start 08/01/16 at 21:00 Calcium Carbonate (Ca Carbonate) 1,250 mg BID GTB Last administered on 09:57; Admin Dose 1,250 MG; Start 08/01/16 at 22:30 Acetaminophen/ Hydrocodone Bitart ([place] (5/325)) 1 tab Q4H PRN PEG MODERATE PAIN LEVEL 4-6 Last administered on 08/06/16 18:09; Admin Dose 1 TAB; Start 08/02 at 00:00 Lorazepam (Ativan) 0.5 mg Q4H PRN IV ANXIETY Last administered on 08/07/16 02: 24; Admin Dose 0.5 MG; Start 08/02/16 at 00:00 Zolpidem Tartrate (Ambien) 10 mg HS PRN PEG INSOMNIA Last administered on 00:35; Admin Dose 10 MG; Start 08/02/16 at 03:30 Fluconazole (Diflucan) 100 mg DAILY PO Last administered on 08/07/16 09:58; Admin Dose 100 MG; Start 08/02/16 at 12:30 Lactobacillus Acidoph/Bulgaricus (Floranex) 1 tab TID PO Last administered on 09:58; Admin Dose 1 TAB; Start 08/02/16 at 13:00 Ibuprofen (Motrin) 600 mg Q6H PRN PO PAIN OR TEMP ABOVE 38C; Start 08/02/16 at 15:00 Zinc Sulfate (Zinc Sulfate) 220 mg DAILY GTB Last administered on 08/07/16 09: 57; Admin Dose 220 MG; Start 08/03/16 at 11:30 Multivitamins Therapeutic (Theragran) 1 tab DAILY PO Last administered on 09:58; Admin Dose 1 TAB; Start 08/03/16 at 11:30 Ascorbic Acid (Vitamin C) 500 mg BID GTB Last administered on 08/07/16 09:58; Admin Dose 500 MG; Start 08/03/16 at 11:30 Metronidazole (Flagyl) 500 mg Q8 PO Last administered on 08/07/16 06:44; Admin Dose 500 MG; Start 08/03/16 at 12:00 Sodium Hypochlorite (Dakin'S (Dilute 1/40%)) 1 applic BID IRR Last administered on 08/07/16 09:58; Admin Dose 1 APPLIC; Start 08/04/16 at 12:00 Hydromorphone HCl 0.5 mg 0.5 mg Q8H PRN IV PAIN Last administered on 08/06/16 16:01; Admin Dose 0.5 MG; Start 08/04/16 at 12:00 Colistimethate Sodium/Sodium Chloride (Coly-Mycin/NS) 100 ml @ 200 mls/hr Q24H IVPB Last administered on 08/06/16 16:25; Admin Dose 200 MLS/HR; Start 08/05/16 at 17:00 Linezolid (Zyvox) 600 mg BID PO Last administered on 08/07/16 09:58; Admin Dose 600 MG; Start 08/05/16 at 21:00 Procedures Procedures Echocardiogram Report ADDENDUM Patient Name: JEANETTE ULLOA Gender: Male Date: 1970 Study Date: 10-May-2016 Pediatric Physical Therapy Assistant: Ambar Little RDCS Location: [facility] Ref. Physician: KB BARRETT Quality: Technically Difficult Study Procedures: Transthoracic echocardiogram with complete 2D, M-Mode, and doppler examination. Indications: Evaluate Left Ventricular function. 2D/M Mode Doppler Measurement Value Normal Ranges Measurement Value Normal Ranges LVIDd 2D 5.3 3.5 - 5.6 cm AV Peak Darren 1.1 m/sec LVIDs 2D 3.9 2.1 - 4.1 cm AV Peak PG 5.0 mmHg FS 2D 26.1 % LVOT Peak Darren 0.9 m/sec LVPWd 2D 1.1 0.6 - 1.1 cm LVOT Peak PG 4.0 mmHg IVSd 2D 1.2 0.6 - 1.1 cm MV E Peak Darren 0.6 m/sec IVS/LVPW 2D 1.0 MV Decel Time 190 msec AoR Diam 2D 2.9 2.0 - 3.7 cm TR Peak Darren 2.5 m/sec LA/Ao 2D 1 0 - 1 TR Peak PG 25.0 mmHg EDV 2D 151.0 cm3 RVSP 33.0 mmHg ESV 2D 61.2 cm3 LA Dimen 2D 2.1 2.3 - 4.0 cm Findings Left Ventricle: Overall, mild left ventricular systolic dysfunction. Not all segments visualized. Normal left ventricular cavity size. Mild concentric left ventricular hypertrophy. Ejection fraction is visually estimated at 45 %. Right Ventricle: Normal right ventricular systolic function. Not well visualized. Left Atrium: The left atrium is normal in size. Right Atrium: The right atrium is normal in size. Mitral Valve: Normal appearance and function of the mitral valve with trace physiologic regurgitation. Aortic Valve: Normal appearance of the aortic valve. No significant aortic stenosis or insufficiency. Tricuspid Valve: Normal appearance of the tricuspid valve. Estimated peak PA systolic pressure 33 mmHg. There is mild tricuspid regurgitation. Pulmonic Valve: Pulmonic valve not well visualized. Pericardium: Normal pericardium with no significant pericardial effusion. Aorta: Normal aortic root. IVC: Inferior vena cava without respiratory collapse, however, patient on ventilator. Pulmonary Artery: Normal pulmonary artery size. Conclusions Overall, mild left ventricular systolic dysfunction. Not all segments visualized. Normal left ventricular cavity size. Mild concentric left ventricular hypertrophy. Ejection fraction is visually estimated at 45 %. Normal right ventricular systolic function. Not well visualized. The left atrium is normal in size. The right atrium is normal in size. Normal appearance of the tricuspid valve. Estimated peak PA systolic pressure 33 mmHg. There is mild tricuspid regurgitation. No significant valvular stenosis or regurgitation seen of remaining visualized valves. Normal pericardium with no significant pericardial effusion. Electronically Signed By: Kb Barrett 10-May-2016 16:20:08 -0800 [ADDENDUM] Patient Name: JEANETTE ULLOA Study Date: 10-May-2016 [id number] ALDO BRADEN Aug 07, 2016 12:00
--- NOTE | 2016-08-07 13:00 | CONS ---
Date/Time of Note Date/Time of Note DATE: 08/07/16 TIME: 12:59 Assessment/Plan Assessment/Plan Chief Complaint/Hosp Course SUBJECTIVE: Patient is lying comfortably in bed. denies pain. no fevers MICROBIOLOGY: Urine culture grew [place] albicans Pseudomonas aeruginosa. Wound culture growing multi-drug resistant Klebsiella pneumoniae and gram- negative rods and Enterococcus species. INDWELLINGS: Trach, PEG, Oliveira, left chest Port-A-Cath. ANTIMICROBIALS: 1. Colistin. 2. Zyvox. 3. Fluconazole. 4. Flagyl PHYSICAL EXAMINATION: GENERAL: Chronically ill-appearing, well-developed, middle-aged man who is lying comfortably in bed. HEENT: Head atraumatic, normocephalic. Sclerae anicteric. Buccal mucosa dry. CHEST: Rise symmetrical. Breath sounds diminished to bases. HEART: S1, S2. ABDOMEN: Soft, bowel tones present. EXTREMITIES: With trace edema. Left upper extremity more edematous. ASSESSMENT: 1. Sepsis. 2. Multiple decubitus with wound culture growing multi-drug resistant organisms. 3. Healthcare-associated pneumonia. 4. Multidrug resistant urinary tract infection. 5. History of Clostridium difficile colitis. 6. 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 7. Left chest Port-A-Cath. PLAN: Clinically unchanged. Continue abx, vent per pulmonary, local wound care /off load, surgical rec-s noted, plan for colostomy DW staff Problems: Consultation Date/Type/Reason Admit Date/Time Jul 31, 2016 at 14:20 Initial Consult Date 08/02/16 Type of Consultation: id Exam/Review of Systems Vital Signs Vitals Vital Signs Date Time Temp Pulse Resp B/P Pulse Ox O2 Delivery O2 Flow Rate FiO2 08/07/16 12:24 112 08/07/16 11:30 24 99 95 08/07/16 11:15 98.6 115/66 08/06/16 12:44 Mechanical Ventilator Intake and Output 08/06/16 08/06/16 08/07/16 15:00 23:00 07:00 Intake Total 1950 ml 2450 ml Output Total 2400 ml Balance -450 ml 2450 ml Results Result Diagram: 08/07/16 0215 08/07/16 0215 Results 24 hrs Laboratory Tests Test 08/06/16 13:05 08/06/16 17:03 08/06/16 22:55 08/07/16 01:10 Bedside Glucose 167 162 166 158 Test 08/07/16 02:15 08/07/16 06:43 08/07/16 09:55 08/07/16 12:16 Alanine Aminotransferase (ALT/SGPT) 43 Albumin 2.1 L Albumin/Globulin Ratio 0.70 Alkaline Phosphatase 169 H Anion Gap 15 Aspartate Amino Transf (AST/SGOT) 35 Basophils # 0.0 Basophils % 0.1 Blood Urea Nitrogen 40 H Calcium Level 8.9 Carbon Dioxide Level 26 Chloride Level 106 Creatinine 0.88 Direct Bilirubin 0.00 Eosinophils # 0.2 Eosinophils % 1.0 Globulin 3.00 Glucose Level 137 Hematocrit 26.0 L Hemoglobin 8.1 L Indirect Bilirubin 0.0 Lactic Acid Level 1.6 Lymphocytes # 0.6 L Lymphocytes % 2.7 L Mean Corpuscular Hemoglobin 25.6 L Mean Corpuscular Hemoglobin Concent 31.2 L Mean Corpuscular Volume 82.0 Mean Platelet Volume 9.8 Monocytes # 0.5 Monocytes % 2.0 Neutrophils # 21.6 H Neutrophils % 92.7 H Nucleated Red Blood Cells # 0.0 Nucleated Red Blood Cells % 0.0 Platelet Count 521 H Potassium Level 4.1 Red Blood Count 3.17 L Red Cell Distribution Width 16.2 H Sodium Level 143 Total Bilirubin 0.0 L Total Protein 5.1 L Troponin I < 0.012 White Blood Count 23.3 #H Bedside Glucose 190 146 187 Medications Medications Current Medications Ondansetron HCl (Zofran Inj) 4 mg Q6H PRN IV NAUSEA AND/OR VOMITING; Start at 15:00 Acetaminophen (Tylenol Tab) 650 mg Q6H PRN PO PAIN LEVEL 1-3 OR FEVER Last administered on 08/07/16 00:35; Admin Dose 650 MG; Start 07/31/16 at 15:00 Morphine Sulfate (morphine) 2 mg Q4H PRN IV SEVERE PAIN LEVEL 7-10 Last administered on 08/02/16 20:59; Admin Dose 2 MG; Start 07/31/16 at 15:00 Docusate Sodium (Colace) 100 mg Q12H PRN PO CONSTIPATION; Start 07/31/16 at 15: 00 Magnesium Hydroxide (Milk Of Mag) 30 ml DAILY PRN PO CONSTIPATION; Start at 15:00 Sodium Biphosphate/ Sodium Phosphate (Fleet Enema) 133 ml DAILY PRN [place] CONSTIPATION; Start 07/31/16 at 15:00 Famotidine 20 mg 20 mg Q12 IV Last administered on 08/07/16 09:57; Admin Dose 20 MG; Start 07/31/16 at 21:00 Sodium Chloride (NS) 1,000 ml @ 60 mls/hr [id number] IV Last administered on 10:08; Admin Dose 100 MLS/HR; Start 07/31/16 at 14:50 Hydralazine HCl (Apresoline) 10 mg Q6H PRN IV ELEVATED BLOOD PRESSURE; Start at 15:00 Nitroglycerin (Nitroglycerin (Sl Tab) 0.4 Mg) 1 tab Q5M PRN SL ANGINA; Start at 15:00 Insulin Aspart (Novolog Insulin Pen) NOVOLOG *MILD* ALGORI... Q4 SC Last administered on 08/07/16 12:27; Admin Dose 2 UNIT; Start 07/31/16 at 17:00 Miscellaneous Information 1 ea NOTE XX ; Start 07/31/16 at 16:30 Glucose (Glutose) 15 gm Q15M PRN PO DECREASED GLUCOSE; Start 07/31/16 at 16:30 Glucose (Glutose) 22.5 gm Q15M PRN PO DECREASED GLUCOSE; Start 07/31/16 at 16: 30 Dextrose (D50w Syringe) 25 ml Q15M PRN IV DECREASED GLUCOSE; Start 07/31/16 at 16:30 Dextrose (D50w Syringe) 50 ml Q15M PRN IV DECREASED GLUCOSE; Start 07/31/16 at 16:30 Glucagon (Glucagen) 1 mg Q15M PRN IM DECREASED GLUCOSE; Start 07/31/16 at 16:30 Glucose (Glutose) 15 gm Q15M PRN BUCCAL DECREASED GLUCOSE; Start 07/31/16 at 16 :30 Sodium Hypochlorite (Dakin'S (1/4 Strength)) 1 applic BID IRR Last administered on 08/07/16 09:58; Admin Dose 1 APPLIC; Start 08/01/16 at 21:00 Calcium Carbonate (Ca Carbonate) 1,250 mg BID GTB Last administered on 09:57; Admin Dose 1,250 MG; Start 08/01/16 at 22:30 Acetaminophen/ Hydrocodone Bitart ([place] (5/325)) 1 tab Q4H PRN PEG MODERATE PAIN LEVEL 4-6 Last administered on 08/06/16 18:09; Admin Dose 1 TAB; Start 08/02 at 00:00 Lorazepam (Ativan) 0.5 mg Q4H PRN IV ANXIETY Last administered on 08/07/16 02: 24; Admin Dose 0.5 MG; Start 08/02/16 at 00:00 Zolpidem Tartrate (Ambien) 10 mg HS PRN PEG INSOMNIA Last administered on 00:35; Admin Dose 10 MG; Start 08/02/16 at 03:30 Fluconazole (Diflucan) 100 mg DAILY PO Last administered on 08/07/16 09:58; Admin Dose 100 MG; Start 08/02/16 at 12:30 Lactobacillus Acidoph/Bulgaricus (Floranex) 1 tab TID PO Last administered on 12:55; Admin Dose 1 TAB; Start 08/02/16 at 13:00 Ibuprofen (Motrin) 600 mg Q6H PRN PO PAIN OR TEMP ABOVE 38C; Start 08/02/16 at 15:00 Zinc Sulfate (Zinc Sulfate) 220 mg DAILY GTB Last administered on 08/07/16 09: 57; Admin Dose 220 MG; Start 08/03/16 at 11:30 Multivitamins Therapeutic (Theragran) 1 tab DAILY PO Last administered on 09:58; Admin Dose 1 TAB; Start 08/03/16 at 11:30 Ascorbic Acid (Vitamin C) 500 mg BID GTB Last administered on 08/07/16 09:58; Admin Dose 500 MG; Start 08/03/16 at 11:30 Metronidazole (Flagyl) 500 mg Q8 PO Last administered on 08/07/16 06:44; Admin Dose 500 MG; Start 08/03/16 at 12:00 Sodium Hypochlorite (Dakin'S (Dilute 1/40%)) 1 applic BID IRR Last administered on 08/07/16 09:58; Admin Dose 1 APPLIC; Start 08/04/16 at 12:00 Hydromorphone HCl 0.5 mg 0.5 mg Q8H PRN IV PAIN Last administered on 08/06/16 16:01; Admin Dose 0.5 MG; Start 08/04/16 at 12:00 Colistimethate Sodium/Sodium Chloride (Coly-Mycin/NS) 100 ml @ 200 mls/hr Q24H IVPB Last administered on 08/06/16 16:25; Admin Dose 200 MLS/HR; Start 08/05/16 at 17:00 Linezolid (Zyvox) 600 mg BID PO Last administered on 08/07/16 09:58; Admin Dose 600 MG; Start 08/05/16 at 21:00 LESLIE FERRARO NP Aug 07, 2016 13:00
--- NOTE | 2016-08-07 13:58 | CONS ---
Date/Time of Note Date/Time of Note DATE: 08/07/16 TIME: 13:55 Assessment/Plan Assessment/Plan Additional Assessment/Plan Sepsis Acute decompensated systolic congestive heart failure Sinus tachycardia C2 fracture and quadriplegic Respiratory failure Cardiomyopathy with ejection fraction 45-50% via echo on previous admission Decubiti -Patient with CT scan with evidence of volume overload, will start IV diuretics as blood pressure and renal function permits. Maintain potassium above 4.0 and magnesium above 2.0. Consultation Date/Type/Reason Admit Date/Time Jul 31, 2016 at 14:20 Type of Consultation: cv 24 HR Interval Summary Free Text/Dictation Complains of intermittent shortness of breath and fevers and chills Exam/Review of Systems Vital Signs Vitals Vital Signs Date Time Temp Pulse Resp B/P Pulse Ox O2 Delivery O2 Flow Rate FiO2 08/07/16 12:24 112 08/07/16 11:30 24 99 95 08/07/16 11:15 98.6 115/66 08/06/16 12:44 Mechanical Ventilator Intake and Output 08/06/16 08/06/16 08/07/16 15:00 23:00 07:00 Intake Total 1950 ml 2450 ml Output Total 2400 ml Balance -450 ml 2450 ml Exam No apparent distress, answering questions appropriately Constitutional: alert, oriented Neck: other (And collar with tracheostomy) Respiratory: other (Coarse breath sounds bilaterally with scattered crackles, no wheezing) Cardiovascular: other (S1-S2 heard), regular rate and rhythm (Tachycardic) Gastrointestinal: bowel sounds, non-tender, other (No guarding), soft Extremities: edema Results Result Diagram: 08/07/1621408/07/16 021 Results 24 hrs Laboratory Tests Test 08/06/16 17:03 08/06/16 22:55 08/07/16 01:10 08/07/16 02:15 Bedside Glucose 162 166 158 Alanine Aminotransferase (ALT/SGPT) 43 Albumin 2.1 L Albumin/Globulin Ratio 0.70 Alkaline Phosphatase 169 H Anion Gap 15 Aspartate Amino Transf (AST/SGOT) 35 Basophils # 0.0 Basophils % 0.1 Blood Urea Nitrogen 40 H Calcium Level 8.9 Carbon Dioxide Level 26 Chloride Level 106 Creatinine 0.88 Direct Bilirubin 0.00 Eosinophils # 0.2 Eosinophils % 1.0 Globulin 3.00 Glucose Level 137 Hematocrit 26.0 L Hemoglobin 8.1 L Indirect Bilirubin 0.0 Lactic Acid Level 1.6 Lymphocytes # 0.6 L Lymphocytes % 2.7 L Mean Corpuscular Hemoglobin 25.6 L Mean Corpuscular Hemoglobin Concent 31.2 L Mean Corpuscular Volume 82.0 Mean Platelet Volume 9.8 Monocytes # 0.5 Monocytes % 2.0 Neutrophils # 21.6 H Neutrophils % 92.7 H Nucleated Red Blood Cells # 0.0 Nucleated Red Blood Cells % 0.0 Platelet Count 521 H Potassium Level 4.1 Red Blood Count 3.17 L Red Cell Distribution Width 16.2 H Sodium Level 143 Total Bilirubin 0.0 L Total Protein 5.1 L Troponin I < 0.012 White Blood Count 23.3 #H Test 08/07/16 06:43 08/07/16 09:55 08/07/16 12:16 Bedside Glucose 190 146 187 Medications Medications Current Medications Ondansetron HCl (Zofran Inj) 4 mg Q6H PRN IV NAUSEA AND/OR VOMITING; Start at 15:00 Acetaminophen (Tylenol Tab) 650 mg Q6H PRN PO PAIN LEVEL 1-3 OR FEVER Last administered on 08/07/16 13:42; Admin Dose 650 MG; Start 07/31/16 at 15:00 Morphine Sulfate (morphine) 2 mg Q4H PRN IV SEVERE PAIN LEVEL 7-10 Last administered on 08/02/16 20:59; Admin Dose 2 MG; Start 07/31/16 at 15:00 Docusate Sodium (Colace) 100 mg Q12H PRN PO CONSTIPATION; Start 07/31/16 at 15: 00 Magnesium Hydroxide (Milk Of Mag) 30 ml DAILY PRN PO CONSTIPATION; Start at 15:00 Sodium Biphosphate/ Sodium Phosphate (Fleet Enema) 133 ml DAILY PRN [place] CONSTIPATION; Start 07/31/16 at 15:00 Famotidine (Pepcid Iv) 20 mg Q12 IV Last administered on 08/07/16 09:57; Admin Dose 20 MG; Start 07/31/16 at 21:00 Hydralazine HCl (Apresoline) 10 mg Q6H PRN IV ELEVATED BLOOD PRESSURE; Start at 15:00 Nitroglycerin (Nitroglycerin (Sl Tab) 0.4 Mg) 1 tab Q5M PRN SL ANGINA; Start at 15:00 Insulin Aspart (Novolog Insulin Pen) NOVOLOG *MILD* ALGORI... Q4 SC Last administered on 08/07/16 12:27; Admin Dose 2 UNIT; Start 07/31/16 at 17:00 Miscellaneous Information 1 ea NOTE XX ; Start 07/31/16 at 16:30 Glucose (Glutose) 15 gm Q15M PRN PO DECREASED GLUCOSE; Start 07/31/16 at 16:30 Glucose (Glutose) 22.5 gm Q15M PRN PO DECREASED GLUCOSE; Start 07/31/16 at 16: 30 Dextrose (D50w Syringe) 25 ml Q15M PRN IV DECREASED GLUCOSE; Start 07/31/16 at 16:30 Dextrose (D50w Syringe) 50 ml Q15M PRN IV DECREASED GLUCOSE; Start 07/31/16 at 16:30 Glucagon (Glucagen) 1 mg Q15M PRN IM DECREASED GLUCOSE; Start 07/31/16 at 16:30 Glucose (Glutose) 15 gm Q15M PRN BUCCAL DECREASED GLUCOSE; Start 07/31/16 at 16 :30 Sodium Hypochlorite (Dakin'S (1/4 Strength)) 1 applic BID IRR Last administered on 08/07/16 09:58; Admin Dose 1 APPLIC; Start 08/01/16 at 21:00 Calcium Carbonate (Ca Carbonate) 1,250 mg BID GTB Last administered on 09:57; Admin Dose 1,250 MG; Start 08/01/16 at 22:30 Acetaminophen/ Hydrocodone Bitart ([place] (5/325)) 1 tab Q4H PRN PEG MODERATE PAIN LEVEL 4-6 Last administered on 08/06/16 18:09; Admin Dose 1 TAB; Start 08/02 at 00:00 Lorazepam (Ativan) 0.5 mg Q4H PRN IV ANXIETY Last administered on 08/07/16 13: 41; Admin Dose 0.5 MG; Start 08/02/16 at 00:00 Zolpidem Tartrate (Ambien) 10 mg HS PRN PEG INSOMNIA Last administered on 00:35; Admin Dose 10 MG; Start 08/02/16 at 03:30 Fluconazole (Diflucan) 100 mg DAILY PO Last administered on 08/07/16 09:58; Admin Dose 100 MG; Start 08/02/16 at 12:30 Lactobacillus Acidoph/Bulgaricus (Floranex) 1 tab TID PO Last administered on 12:55; Admin Dose 1 TAB; Start 08/02/16 at 13:00 Ibuprofen (Motrin) 600 mg Q6H PRN PO PAIN OR TEMP ABOVE 38C; Start 08/02/16 at 15:00 Zinc Sulfate (Zinc Sulfate) 220 mg DAILY GTB Last administered on 08/07/16 09: 57; Admin Dose 220 MG; Start 08/03/16 at 11:30 Multivitamins Therapeutic (Theragran) 1 tab DAILY PO Last administered on 09:58; Admin Dose 1 TAB; Start 08/03/16 at 11:30 Ascorbic Acid (Vitamin C) 500 mg BID GTB Last administered on 08/07/16 09:58; Admin Dose 500 MG; Start 08/03/16 at 11:30 Metronidazole (Flagyl) 500 mg Q8 PO Last administered on 08/07/16 13:41; Admin Dose 500 MG; Start 08/03/16 at 12:00 Sodium Hypochlorite (Dakin'S (Dilute 1/40%)) 1 applic BID IRR Last administered on 08/07/16 09:58; Admin Dose 1 APPLIC; Start 08/04/16 at 12:00 Hydromorphone HCl 0.5 mg 0.5 mg Q8H PRN IV PAIN Last administered on 08/06/16 16:01; Admin Dose 0.5 MG; Start 08/04/16 at 12:00 Colistimethate Sodium/Sodium Chloride (Coly-Mycin/NS) 100 ml @ 200 mls/hr Q24H IVPB Last administered on 08/06/16 16:25; Admin Dose 200 MLS/HR; Start 08/05/16 at 17:00 Linezolid (Zyvox) 600 mg BID PO Last administered on 08/07/16 09:58; Admin Dose 600 MG; Start 08/05/16 at 21:00 Kb Barrett DO Aug 07, 2016 13:58
[2016-08-07] MEDS ORDERED: MAGNESIUM SULFATE 2 GM/50 ML 50 ML IVPB ONE (14:00)
[2016-08-07] MEDS: FUROSEMIDE 20 MG INJ IV SCH ×2 (14:49→23:13)
[2016-08-07] MEDS: HYDROmorphONE 1 MG/ML SYG IV PRN (16:31)
[2016-08-07] MEDS: COLISTIMETHATE 150 MG in SOD CHLORIDE 0.9% 100 ML IVPB SCH (17:24)
[2016-08-08] VITALS (23 sets, daily range): BP systolic 101–114; BP diastolic 53–67; PULSE 82–100; RESP 20–24
[2016-08-08] MEDS: INSULIN ASPART [NOVOLOG] 3 ML PEN SC SCH ×6 (01:25→21:00)
[2016-08-08] MEDS: FUROSEMIDE 20 MG INJ IV SCH ×3 (05:17→21:17)
[2016-08-08] MEDS: metroNIDAZOLE 500 MG TAB PO SCH ×3 (05:18→21:16)
[2016-08-08] MEDS: LORAZEPAM 2 MG INJ IV PRN ×3 (05:28→19:26)
--- NOTE | 2016-08-08 08:00 | RADRPT ---
PROCEDURE: XR Chest 1 view. CLINICAL INDICATION: Shortness of breath, pneumonia TECHNIQUE: AP views of the chest were obtained. COMPARISON: August 06, 2016 FINDINGS: The heart is large. Calcified atherosclerosis is noted in the aorta. Tracheostomy tube is stable an d appears in grossly appropriate location. Left lower lobe infiltrates combined with small to mode rate pleural effusion are stable. Right lower lobe infiltrates combined with small to moderate pleu ral effusion have increased. The osseous structures are unchanged. Left-sided chest port is stable . IMPRESSION: Cardiomegaly with calcified atherosclerosis in the aorta. Interval increase in right lower lobe infiltrates combined with small to moderate pleural effusion. Stable left lower lobe infiltrates combined with small to moderate pleural effusion. RPTAT: AA .Christian Saravia MD, MD Date Time Electronically viewed and signed by .Christian Saravia MD, on 08/08/2016 07:59 .P/
[2016-08-08 08:54] LABS: ADD SCAN DIFF NO
[2016-08-08 09:03] LABS: POTASSIUM 3.4 mmol/L (3.5-5.1)
[2016-08-08 09:10] LABS: CALCIUM 9.4 mg/dl (8.4-10.2); CREATININE 1.07 mg/dl (0.61-1.24)
[2016-08-08] MEDS: ZINC SULFATE 220 MG CAP GTB SCH (09:40)
[2016-08-08] MEDS: CA CARBONATE (250 MG/ML) 5ML CUP GTB SCH ×2 (09:40→20:53)
[2016-08-08] MEDS: FLUCONAZOLE 100 MG TAB PO SCH (09:40)
[2016-08-08] MEDS: ZYVOX 600 MG TAB PO SCH ×2 (09:41→21:00)
[2016-08-08] MEDS: SODIUM HYPOCHLORITE 0.125% 473 ML BTL IRR SCH ×2 (09:41→20:53)
[2016-08-08] MEDS: MULTIVITAMINS THERAPEUTIC TAB PO SCH (09:41)
[2016-08-08] MEDS: FAMOTIDINE 20 MG INJ IV SCH ×2 (09:41→21:17)
[2016-08-08] MEDS: LACTOBACILLUS CHEW TAB PO SCH ×3 (09:41→21:00)
[2016-08-08] MEDS: ASCORBIC ACID 500 MG TAB GTB SCH ×2 (09:41→20:54)
[2016-08-08] MEDS: SODIUM HYPOCHLORITE 1/40% 1L IRRIG IRR SCH ×2 (09:42→20:53)
[2016-08-08] MEDS: ACETAMINOPHEN 325 MG TAB PO PRN (09:44)
[2016-08-08 10:11] LABS: BASOPHILS % 0.1 % (0.0-2.0); EOSINOPHILS # 0.3 10^3/ul (0.0-0.5); EOSINOPHILS % 1.4 % (0.0-7.0); HEMOGLOBIN 8.6 g/dl (14.0-18.0); LYMPHOCYTES # 0.9 10^3/ul (0.8-2.9); LYMPHOCYTES % 3.9 % (15.0-51.0); MEAN CORPUSCULAR HEMOGLOBIN 25.4 pg (29.0-33.0); MEAN CORPUSCULAR HGB CONC 30.7 g/dl (32.0-37.0); MEAN CORPUSCULAR VOLUME 82.8 fl (82.0-101.0); MONOCYTE # 0.5 10^3/ul (0.3-0.9); MONOCYTES % 2.2 % (0.0-11.0); NEUTROPHIL # 19.9 10^3/ul (1.6-7.5); NEUTROPHILS % 91.3 % (39.0-77.0); PLATELET COUNT 509 10^3/UL (140-415); RED BLOOD COUNT 3.38 10^6/ul (4.70-6.10); RED CELL DISTRIBUTION WIDTH 16.7 % (11.5-14.5); WHITE BLOOD COUNT 21.8 10^3/ul (4.8-10.8)
--- NOTE | 2016-08-08 11:21 | PN ---
Date/Time of Note Date/Time of Note DATE: 08/08/16 TIME: 11:20 Assessment/Plan VTE Prophylaxis VTE Prophylaxis Intervention: heparin Lines/Catheters IV [facility] PORTHACATH Urinary Cath still in place: Yes Reason Cath still needed: other (indicate) Assessment/Plan Assessment/Plan 46-year-old male sent in with fever and diaphoresis with findings of sepsis with hypotension, tachycardia, likely secondary to possible decubitus ulcer worsening infection. 1. Sepsis - sec to resp infection+ UTI + decubitus ulcer infx. 2. Chronic respiratory failure,Vent dependent via trach 3. Recurrent Multifocal bronchitis/bronchiolitis/bronchopneumonia 4. Chronic Dysphagia currently on G-tube feeds. 2/2 #5 5. Chronic quadriplegia 2/2 C2 fracture + chronic neuropathy / with cervical collar still in place 6. Multiple infected decubiti down to the bone 7. Severe hypochromic microcytic anemia likely with a component of chronic blood loss from ulcers r/o iron deficiency 8. DM 2 with suboptimal control 9. Cardiomyopathy with ejection fraction 45-50% via echo on previous admission 10. Pseudomonas / Addis UTI PLAN: * Continue diuresis per cardiology * Spoke with surgery, patient is not a good candidate for elective surgery at this time. Will await cardiology clearance * Continue abx per ID * Spoke with patient and significant other * Continue supportive care and all other mgt * Gastrointestinal prophylaxis. H2 pam. * Deep venous thrombosis prophylaxis. Heparin subcutaneous. Subjective 24 Hr Interval Summary Free Text/Dictation Patient seen and examined. feels better Exam/Review of Systems Vital Signs Vitals Vital Signs Date Time Temp Pulse Resp B/P Pulse Ox O2 Delivery O2 Flow Rate FiO2 08/08/16 08:49 87 08/08/16 07:56 96.8 20 114/67 100 08/08/16 05:08 60 08/06/16 12:44 Mechanical Ventilator Intake and Output 08/07/16 08/07/16 08/08/16 15:00 23:00 07:00 Intake Total 1150 ml 1320 ml 1285 ml Output Total 1700 ml 2450 ml 1400 ml Balance -550 ml -1130 ml -115 ml Exam GENERAL: The patient is lying in bed, in mild distress, alert HEENT: Pupils equal, round, react to light. Extraocular muscles intact. NECK: Cervical collar / Neck brace in place. LUNGS: Clear to auscultation bilaterally. CARDIOVASCULAR: S1 S2 heard, No rubs or gallops. ABDOMEN: Soft, nontender, nondistended. Normal bowel sounds. No rebound or guarding. MUSCULOSKELETAL: Trace pitting edema bilateral lower extremities. NEUROLOGIC: quadriplegic with chronic msc wasting Results Result Diagram: 08/08/16 0723 08/08/16 0723 Results 24 hrs Laboratory Tests Test 08/07/16 12:16 08/07/16 17:12 08/07/16 20:13 08/08/16 01:07 Bedside Glucose 187 167 184 160 Test 08/08/16 07:23 08/08/16 09:46 Anion Gap 12 Basophils # 0.0 Basophils % 0.1 Blood Urea Nitrogen 45 H Calcium Level 9.4 Carbon Dioxide Level 30 Chloride Level 100 Creatinine 1.07 Eosinophils # 0.3 Eosinophils % 1.4 Glucose Level 139 Hematocrit 28.0 L Hemoglobin 8.6 L Lymphocytes # 0.9 Lymphocytes % 3.9 L Magnesium Level 2.1 Mean Corpuscular Hemoglobin 25.4 L Mean Corpuscular Hemoglobin Concent 30.7 L Mean Corpuscular Volume 82.8 Mean Platelet Volume 10.0 Monocytes # 0.5 Monocytes % 2.2 Neutrophils # 19.9 H Neutrophils % 91.3 H Nucleated Red Blood Cells # 0.0 Nucleated Red Blood Cells % 0.0 Platelet Count 509 H Potassium Level 3.4 L Red Blood Count 3.38 L Red Cell Distribution Width 16.7 H Sodium Level 139 White Blood Count 21.8 H Bedside Glucose 183 Medications Medications Current Medications Ondansetron HCl (Zofran Inj) 4 mg Q6H PRN IV NAUSEA AND/OR VOMITING; Start at 15:00 Acetaminophen (Tylenol Tab) 650 mg Q6H PRN PO PAIN LEVEL 1-3 OR FEVER Last administered on 08/08/16 09:44; Admin Dose 650 MG; Start 07/31/16 at 15:00 Morphine Sulfate (morphine) 2 mg Q4H PRN IV SEVERE PAIN LEVEL 7-10 Last administered on 08/02/16 20:59; Admin Dose 2 MG; Start 07/31/16 at 15:00 Docusate Sodium (Colace) 100 mg Q12H PRN PO CONSTIPATION; Start 07/31/16 at 15: 00 Magnesium Hydroxide (Milk Of Mag) 30 ml DAILY PRN PO CONSTIPATION; Start at 15:00 Sodium Biphosphate/ Sodium Phosphate (Fleet Enema) 133 ml DAILY PRN [place] CONSTIPATION; Start 07/31/16 at 15:00 Famotidine (Pepcid Iv) 20 mg Q12 IV Last administered on 08/08/16 09:41; Admin Dose 20 MG; Start 07/31/16 at 21:00 Hydralazine HCl (Apresoline) 10 mg Q6H PRN IV ELEVATED BLOOD PRESSURE; Start at 15:00 Nitroglycerin (Nitroglycerin (Sl Tab) 0.4 Mg) 1 tab Q5M PRN SL ANGINA; Start at 15:00 Insulin Aspart (Novolog Insulin Pen) NOVOLOG *MILD* ALGORI... Q4 SC Last administered on 08/08/16 09:50; Admin Dose 2 UNIT; Start 07/31/16 at 17:00 Miscellaneous Information 1 ea NOTE XX ; Start 07/31/16 at 16:30 Glucose (Glutose) 15 gm Q15M PRN PO DECREASED GLUCOSE; Start 07/31/16 at 16:30 Glucose (Glutose) 22.5 gm Q15M PRN PO DECREASED GLUCOSE; Start 07/31/16 at 16: 30 Dextrose (D50w Syringe) 25 ml Q15M PRN IV DECREASED GLUCOSE; Start 07/31/16 at 16:30 Dextrose (D50w Syringe) 50 ml Q15M PRN IV DECREASED GLUCOSE; Start 07/31/16 at 16:30 Glucagon (Glucagen) 1 mg Q15M PRN IM DECREASED GLUCOSE; Start 07/31/16 at 16:30 Glucose (Glutose) 15 gm Q15M PRN BUCCAL DECREASED GLUCOSE; Start 07/31/16 at 16 :30 Sodium Hypochlorite (Dakin'S (1/4 Strength)) 1 applic BID IRR Last administered on 08/08/16 09:41; Admin Dose 1 APPLIC; Start 08/01/16 at 21:00 Calcium Carbonate (Ca Carbonate) 1,250 mg BID GTB Last administered on 09:40; Admin Dose 1,250 MG; Start 08/01/16 at 22:30 Acetaminophen/ Hydrocodone Bitart ([place] (5/325)) 1 tab Q4H PRN PEG MODERATE PAIN LEVEL 4-6 Last administered on 08/06/16 18:09; Admin Dose 1 TAB; Start 08/02 at 00:00 Lorazepam (Ativan) 0.5 mg Q4H PRN IV ANXIETY Last administered on 08/08/16 09: 43; Admin Dose 0.5 MG; Start 08/02/16 at 00:00 Zolpidem Tartrate (Ambien) 10 mg HS PRN PEG INSOMNIA Last administered on 00:35; Admin Dose 10 MG; Start 08/02/16 at 03:30 Fluconazole (Diflucan) 100 mg DAILY PO Last administered on 08/08/16 09:40; Admin Dose 100 MG; Start 08/02/16 at 12:30 Lactobacillus Acidoph/Bulgaricus (Floranex) 1 tab TID PO Last administered on 09:41; Admin Dose 1 TAB; Start 08/02/16 at 13:00 Ibuprofen (Motrin) 600 mg Q6H PRN PO PAIN OR TEMP ABOVE 38C; Start 08/02/16 at 15:00 Zinc Sulfate (Zinc Sulfate) 220 mg DAILY GTB Last administered on 08/08/16 09: 40; Admin Dose 220 MG; Start 08/03/16 at 11:30 Multivitamins Therapeutic (Theragran) 1 tab DAILY PO Last administered on 09:41; Admin Dose 1 TAB; Start 08/03/16 at 11:30 Ascorbic Acid (Vitamin C) 500 mg BID GTB Last administered on 08/08/16 09:41; Admin Dose 500 MG; Start 08/03/16 at 11:30 Metronidazole (Flagyl) 500 mg Q8 PO Last administered on 08/08/16 05:18; Admin Dose 500 MG; Start 08/03/16 at 12:00 Sodium Hypochlorite (Dakin'S (Dilute 1/40%)) 1 applic BID IRR Last administered on 08/08/16 09:42; Admin Dose 1 APPLIC; Start 08/04/16 at 12:00 Hydromorphone HCl 0.5 mg 0.5 mg Q8H PRN IV PAIN Last administered on 08/07/16 16:31; Admin Dose 0.5 MG; Start 3/4/17 at 12:00 Colistimethate Sodium/Sodium Chloride (Coly-Mycin/NS) 100 ml @ 200 mls/hr Q24H IVPB Last administered on 08/07/16 17:24; Admin Dose 200 MLS/HR; Start 08/05/16 at 17:00 Linezolid (Zyvox) 600 mg BID PO Last administered on 08/08/16 09:41; Admin Dose 600 MG; Start 08/05/16 at 21:00 Furosemide (Lasix) 20 mg Q8 IV Last administered on 08/08/16 05:17; Admin Dose 20 MG; Start 08/07/16 at 14:00 Procedures Procedures PROCEDURE: XR Chest 1 view. CLINICAL INDICATION: Shortness of breath, pneumonia TECHNIQUE: AP views of the chest were obtained. COMPARISON: August 06, 2016 FINDINGS: The heart is large. Calcified atherosclerosis is noted in the aorta. Tracheostomy tube is stable and appears in grossly appropriate location. Left lower lobe infiltrates combined with small to moderate pleural effusion are stable. Right lower lobe infiltrates combined with small to moderate pleural effusion have increased. The osseous structures are unchanged. Left-sided chest port is stable. IMPRESSION: Cardiomegaly with calcified atherosclerosis in the aorta. Interval increase in right lower lobe infiltrates combined with small to moderate pleural effusion. Stable left lower lobe infiltrates combined with small to moderate pleural effusion. RPTAT: AA .Christian Saravia MD, Date Time Electronically viewed and signed by .Christian Saravia MD, on 08/08/2016 07:59 ALDO BRADEN Aug 08, 2016 11:21
--- NOTE | 2016-08-08 11:48 | CONS ---
Date/Time of Note Date/Time of Note DATE: 08/08/16 TIME: 11:47 Assessment/Plan Assessment/Plan Additional Assessment/Plan Sepsis Acute decompensated systolic congestive heart failure Sinus tachycardia C2 fracture and quadriplegic Respiratory failure Cardiomyopathy with ejection fraction 45-50% via echo on previous admission Decubiti -Patient diuresing well with Lasix, would titrate down over the next 24 hours. Maintain potassium above 4.0 and magnesium above 2.0. Consultation Date/Type/Reason Admit Date/Time Jul 31, 2016 at 14:20 Type of Consultation: cv 24 HR Interval Summary Free Text/Dictation Patient feeling better, less shortness of breath, denies chest pain Exam/Review of Systems Vital Signs Vitals Vital Signs Date Time Temp Pulse Resp B/P Pulse Ox O2 Delivery O2 Flow Rate FiO2 08/08/16 11:33 97.4 79 20 112/57 100 08/08/16 11:05 60 08/06/16 12:44 Mechanical Ventilator Intake and Output 08/07/16 08/07/16 08/08/16 15:00 23:00 07:00 Intake Total 1150 ml 1320 ml 1285 ml Output Total 1700 ml 2450 ml 1400 ml Balance -550 ml -1130 ml -115 ml Exam No apparent distress Constitutional: alert, oriented Neck: other (C-collar, tracheostomy) Respiratory: other (Coarse breath sounds bilaterally, no wheezing, scattered rhonchi) Cardiovascular: other (S1-S2 heard), regular rate and rhythm Gastrointestinal: bowel sounds, non-tender, other (No guarding), soft Extremities: edema, other (No cyanosis) Results Result Diagram: 08/08/16 0723 08/08/16 0723 Results 24 hrs Laboratory Tests Test 08/07/16 12:16 08/07/16 17:12 08/07/16 20:13 08/08/16 01:07 Bedside Glucose 187 167 184 160 Test 08/08/16 07:23 08/08/16 09:46 Anion Gap 12 Basophils # 0.0 Basophils % 0.1 Blood Urea Nitrogen 45 H Calcium Level 9.4 Carbon Dioxide Level 30 Chloride Level 100 Creatinine 1.07 Eosinophils # 0.3 Eosinophils % 1.4 Glucose Level 139 Hematocrit 28.0 L Hemoglobin 8.6 L Lymphocytes # 0.9 Lymphocytes % 3.9 L Magnesium Level 2.1 Mean Corpuscular Hemoglobin 25.4 L Mean Corpuscular Hemoglobin Concent 30.7 L Mean Corpuscular Volume 82.8 Mean Platelet Volume 10.0 Monocytes # 0.5 Monocytes % 2.2 Neutrophils # 19.9 H Neutrophils % 91.3 H Nucleated Red Blood Cells # 0.0 Nucleated Red Blood Cells % 0.0 Platelet Count 509 H Potassium Level 3.4 L Red Blood Count 3.38 L Red Cell Distribution Width 16.7 H Sodium Level 139 White Blood Count 21.8 H Bedside Glucose 183 Medications Medications Current Medications Ondansetron HCl (Zofran Inj) 4 mg Q6H PRN IV NAUSEA AND/OR VOMITING; Start at 15:00 Acetaminophen (Tylenol Tab) 650 mg Q6H PRN PO PAIN LEVEL 1-3 OR FEVER Last administered on 08/08/16 09:44; Admin Dose 650 MG; Start 07/31/16 at 15:00 Morphine Sulfate (morphine) 2 mg Q4H PRN IV SEVERE PAIN LEVEL 7-10 Last administered on 08/02/16 20:59; Admin Dose 2 MG; Start 07/31/16 at 15:00 Magnesium Hydroxide (Milk Of Mag) 30 ml DAILY PRN PO CONSTIPATION; Start at 15:00 Sodium Biphosphate/ Sodium Phosphate (Fleet Enema) 133 ml DAILY PRN [place] CONSTIPATION; Start 07/31/16 at 15:00 Famotidine (Pepcid Iv) 20 mg Q12 IV Last administered on 08/08/16 09:41; Admin Dose 20 MG; Start 07/31/16 at 21:00 Hydralazine HCl (Apresoline) 10 mg Q6H PRN IV ELEVATED BLOOD PRESSURE; Start at 15:00 Nitroglycerin (Nitroglycerin (Sl Tab) 0.4 Mg) 1 tab Q5M PRN SL ANGINA; Start at 15:00 Insulin Aspart (Novolog Insulin Pen) NOVOLOG *MILD* ALGORI... Q4 SC Last administered on 08/08/16 09:50; Admin Dose 2 UNIT; Start 07/31/16 at 17:00 Miscellaneous Information 1 ea NOTE XX ; Start 07/31/16 at 16:30 Glucose (Glutose) 15 gm Q15M PRN PO DECREASED GLUCOSE; Start 07/31/16 at 16:30 Glucose (Glutose) 22.5 gm Q15M PRN PO DECREASED GLUCOSE; Start 07/31/16 at 16: 30 Dextrose (D50w Syringe) 25 ml Q15M PRN IV DECREASED GLUCOSE; Start 07/31/16 at 16:30 Dextrose (D50w Syringe) 50 ml Q15M PRN IV DECREASED GLUCOSE; Start 07/31/16 at 16:30 Glucagon (Glucagen) 1 mg Q15M PRN IM DECREASED GLUCOSE; Start 07/31/16 at 16:30 Glucose (Glutose) 15 gm Q15M PRN BUCCAL DECREASED GLUCOSE; Start 07/31/16 at 16 :30 Sodium Hypochlorite (Dakin'S (1/4 Strength)) 1 applic BID IRR Last administered on 08/08/16 09:41; Admin Dose 1 APPLIC; Start 08/01/16 at 21:00 Calcium Carbonate (Ca Carbonate) 1,250 mg BID GTB Last administered on 09:40; Admin Dose 1,250 MG; Start 08/01/16 at 22:30 Acetaminophen/ Hydrocodone Bitart ([place] (5/325)) 1 tab Q4H PRN PEG MODERATE PAIN LEVEL 4-6 Last administered on 08/06/16 18:09; Admin Dose 1 TAB; Start 08/02 at 00:00 Lorazepam (Ativan) 0.5 mg Q4H PRN IV ANXIETY Last administered on 08/08/16 09: 43; Admin Dose 0.5 MG; Start 08/02/16 at 00:00 Zolpidem Tartrate (Ambien) 10 mg HS PRN PEG INSOMNIA Last administered on 00:35; Admin Dose 10 MG; Start 08/02/16 at 03:30 Fluconazole (Diflucan) 100 mg DAILY PO Last administered on 08/08/16 09:40; Admin Dose 100 MG; Start 08/02/16 at 12:30 Lactobacillus Acidoph/Bulgaricus (Floranex) 1 tab TID PO Last administered on 09:41; Admin Dose 1 TAB; Start 08/02/16 at 13:00 Ibuprofen (Motrin) 600 mg Q6H PRN PO PAIN OR TEMP ABOVE 38C; Start 08/02/16 at 15:00 Zinc Sulfate (Zinc Sulfate) 220 mg DAILY GTB Last administered on 08/08/16 09: 40; Admin Dose 220 MG; Start 08/03/16 at 11:30 Multivitamins Therapeutic (Theragran) 1 tab DAILY PO Last administered on 09:41; Admin Dose 1 TAB; Start 08/03/16 at 11:30 Ascorbic Acid (Vitamin C) 500 mg BID GTB Last administered on 08/08/16 09:41; Admin Dose 500 MG; Start 08/03/16 at 11:30 Metronidazole (Flagyl) 500 mg Q8 PO Last administered on 08/08/16 05:18; Admin Dose 500 MG; Start 08/03/16 at 12:00 Sodium Hypochlorite (Dakin'S (Dilute 1/40%)) 1 applic BID IRR Last administered on 08/08/16 09:42; Admin Dose 1 APPLIC; Start 08/04/16 at 12:00 Hydromorphone HCl 0.5 mg 0.5 mg Q8H PRN IV PAIN Last administered on 08/07/16 16:31; Admin Dose 0.5 MG; Start 08/04/16 at 12:00 Colistimethate Sodium/Sodium Chloride (Coly-Mycin/NS) 100 ml @ 200 mls/hr Q24H IVPB Last administered on 08/07/16 17:24; Admin Dose 200 MLS/HR; Start 08/05/16 at 17:00 Linezolid (Zyvox) 600 mg BID PO Last administered on 08/08/16 09:41; Admin Dose 600 MG; Start 08/05/16 at 21:00 Furosemide 20 mg 20 mg Q8 IV Last administered on 08/08/16 05:17; Admin Dose 20 MG; Start 08/07/16 at 14:00 Potassium Chloride (KCl 40 MEQ/250 ML NS) 250 ml @ 62.5 mls/hr Q4H IVPB ; Start 08/08/16 at 11:30; Stop 08/08/16 at 19:29 Docusate Sodium (Colace) 100 mg Q12H PO ; Start 08/08/16 at 21:00; Status UNV Insulin Aspart (Novolog Insulin Pen) NOVOLOG *MODERATE* ALGORI... Q4 SC ; Start 3/8/17 at 13:00; Status UNV Miscellaneous Information (* Miscellaneous Pharmacy Order) HYPOGLYCEMIA PROTOCOL w... ONCE ONCE XX ; Start 08/08/16 at 11:30; Stop 08/08/16 at 11:31; Status UNV Miscellaneous Information (* Miscellaneous Pharmacy Order) Discontinue all previ... ONCE ONCE XX ; Start 08/08/16 at 11:30; Stop 08/08/16 at 11:31; Status UNV Metformin HCl (Glucophage) 500 mg Q12 PO ; Start 08/08/16 at 21:00 Kb Barrett DO Aug 08, 2016 11:48
--- NOTE | 2016-08-08 12:20 | CONS ---
Date/Time of Note Date/Time of Note DATE: 08/08/16 TIME: 12:19 Assessment/Plan Assessment/Plan Chief Complaint/Hosp Course SUBJECTIVE: No events, lying comfortably in bed, no fevers MICROBIOLOGY: Urine culture grew Addis albicans Pseudomonas aeruginosa. Wound culture growing multi-drug resistant Klebsiella pneumoniae and gram- negative rods and Enterococcus species. INDWELLINGS: Trach, PEG, Oliveira, left chest Port-A-Cath. ANTIMICROBIALS: 1. Colistin. 2. Zyvox. 3. Fluconazole. 4. Flagyl PHYSICAL EXAMINATION: GENERAL: Chronically ill-appearing, well-developed, middle-aged man who is lying comfortably in bed. HEENT: Head atraumatic, normocephalic. Sclerae anicteric. Buccal mucosa dry. CHEST: Rise symmetrical. Breath sounds diminished to bases. HEART: S1, S2. ABDOMEN: Soft, bowel tones present. EXTREMITIES: With trace edema. Left upper extremity more edematous. ASSESSMENT: 1. Sepsis. 2. Multiple decubitus with wound culture growing multi-drug resistant organisms. 3. Healthcare-associated pneumonia. 4. Multidrug resistant urinary tract infection. 5. History of Clostridium difficile colitis. 6. 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 7. Left chest Port-A-Cath. PLAN: Remains unchanged. Continue abx, vent per pulmonary, local wound care / off load, surgical rec-s noted, plan for colostomy DW staff Problems: Consultation Date/Type/Reason Admit Date/Time Jul 31, 2016 at 14:20 Initial Consult Date 08/02/16 Type of Consultation: id Exam/Review of Systems Vital Signs Vitals Vital Signs Date Time Temp Pulse Resp B/P Pulse Ox O2 Delivery O2 Flow Rate FiO2 08/08/16 11:33 97.4 79 20 112/57 100 08/08/16 11:05 60 08/06/16 12:44 Mechanical Ventilator Intake and Output 08/07/16 08/07/16 08/08/16 15:00 23:00 07:00 Intake Total 1150 ml 1320 ml 1285 ml Output Total 1700 ml 2450 ml 1400 ml Balance -550 ml -1130 ml -115 ml Results Result Diagram: 08/08/16 0723 08/08/16 0723 Results 24 hrs Laboratory Tests Test 08/07/16 17:12 08/07/16 20:13 08/08/16 01:07 08/08/16 07:23 Bedside Glucose 167 184 160 Anion Gap 12 Basophils # 0.0 Basophils % 0.1 Blood Urea Nitrogen 45 H Calcium Level 9.4 Carbon Dioxide Level 30 Chloride Level 100 Creatinine 1.07 Eosinophils # 0.3 Eosinophils % 1.4 Glucose Level 139 Hematocrit 28.0 L Hemoglobin 8.6 L Lymphocytes # 0.9 Lymphocytes % 3.9 L Magnesium Level 2.1 Mean Corpuscular Hemoglobin 25.4 L Mean Corpuscular Hemoglobin Concent 30.7 L Mean Corpuscular Volume 82.8 Mean Platelet Volume 10.0 Monocytes # 0.5 Monocytes % 2.2 Neutrophils # 19.9 H Neutrophils % 91.3 H Nucleated Red Blood Cells # 0.0 Nucleated Red Blood Cells % 0.0 Platelet Count 509 H Potassium Level 3.4 L Red Blood Count 3.38 L Red Cell Distribution Width 16.7 H Sodium Level 139 White Blood Count 21.8 H Test 08/08/16 09:46 Bedside Glucose 183 Medications Medications Current Medications Ondansetron HCl (Zofran Inj) 4 mg Q6H PRN IV NAUSEA AND/OR VOMITING; Start at 15:00 Acetaminophen (Tylenol Tab) 650 mg Q6H PRN PO PAIN LEVEL 1-3 OR FEVER Last administered on 08/08/16 09:44; Admin Dose 650 MG; Start 07/31/16 at 15:00 Morphine Sulfate (morphine) 2 mg Q4H PRN IV SEVERE PAIN LEVEL 7-10 Last administered on 08/02/16 20:59; Admin Dose 2 MG; Start 07/31/16 at 15:00 Magnesium Hydroxide (Milk Of Mag) 30 ml DAILY PRN PO CONSTIPATION; Start at 15:00 Sodium Biphosphate/ Sodium Phosphate (Fleet Enema) 133 ml DAILY PRN [place] CONSTIPATION; Start 07/31/16 at 15:00 Famotidine (Pepcid Iv) 20 mg Q12 IV Last administered on 08/08/16 09:41; Admin Dose 20 MG; Start 07/31/16 at 21:00 Hydralazine HCl (Apresoline) 10 mg Q6H PRN IV ELEVATED BLOOD PRESSURE; Start at 15:00 Nitroglycerin (Nitroglycerin (Sl Tab) 0.4 Mg) 1 tab Q5M PRN SL ANGINA; Start at 15:00 Miscellaneous Information 1 ea NOTE XX ; Start 07/31/16 at 16:30 Glucose (Glutose) 15 gm Q15M PRN PO DECREASED GLUCOSE; Start 07/31/16 at 16:30 Glucose (Glutose) 22.5 gm Q15M PRN PO DECREASED GLUCOSE; Start 07/31/16 at 16: 30 Dextrose (D50w Syringe) 25 ml Q15M PRN IV DECREASED GLUCOSE; Start 07/31/16 at 16:30 Dextrose (D50w Syringe) 50 ml Q15M PRN IV DECREASED GLUCOSE; Start 07/31/16 at 16:30 Glucagon (Glucagen) 1 mg Q15M PRN IM DECREASED GLUCOSE; Start 07/31/16 at 16:30 Glucose (Glutose) 15 gm Q15M PRN BUCCAL DECREASED GLUCOSE; Start 07/31/16 at 16 :30 Sodium Hypochlorite (Dakin'S (1/4 Strength)) 1 applic BID IRR Last administered on 08/08/16 09:41; Admin Dose 1 APPLIC; Start 08/01/16 at 21:00 Calcium Carbonate (Ca Carbonate) 1,250 mg BID GTB Last administered on 09:40; Admin Dose 1,250 MG; Start 08/01/16 at 22:30 Acetaminophen/ Hydrocodone Bitart ([place] (5/325)) 1 tab Q4H PRN PEG MODERATE PAIN LEVEL 4-6 Last administered on 08/06/16 18:09; Admin Dose 1 TAB; Start 08/02 at 00:00 Lorazepam (Ativan) 0.5 mg Q4H PRN IV ANXIETY Last administered on 08/08/16 09: 43; Admin Dose 0.5 MG; Start 08/02/16 at 00:00 Zolpidem Tartrate (Ambien) 10 mg HS PRN PEG INSOMNIA Last administered on 00:35; Admin Dose 10 MG; Start 08/02/16 at 03:30 Fluconazole (Diflucan) 100 mg DAILY PO Last administered on 08/08/16 09:40; Admin Dose 100 MG; Start 08/02/16 at 12:30 Lactobacillus Acidoph/Bulgaricus (Floranex) 1 tab TID PO Last administered on 09:41; Admin Dose 1 TAB; Start 08/02/16 at 13:00 Ibuprofen (Motrin) 600 mg Q6H PRN PO PAIN OR TEMP ABOVE 38C; Start 08/02/16 at 15:00 Zinc Sulfate (Zinc Sulfate) 220 mg DAILY GTB Last administered on 08/08/16 09: 40; Admin Dose 220 MG; Start 08/03/16 at 11:30 Multivitamins Therapeutic (Theragran) 1 tab DAILY PO Last administered on 09:41; Admin Dose 1 TAB; Start 08/03/16 at 11:30 Ascorbic Acid (Vitamin C) 500 mg BID GTB Last administered on 08/08/16 09:41; Admin Dose 500 MG; Start 08/03/16 at 11:30 Metronidazole (Flagyl) 500 mg Q8 PO Last administered on 08/08/16 05:18; Admin Dose 500 MG; Start 08/03/16 at 12:00 Sodium Hypochlorite (Dakin'S (Dilute 1/40%)) 1 applic BID IRR Last administered on 08/08/16 09:42; Admin Dose 1 APPLIC; Start 08/04/16 at 12:00 Hydromorphone HCl 0.5 mg 0.5 mg Q8H PRN IV PAIN Last administered on 08/07/16 16:31; Admin Dose 0.5 MG; Start 08/04/16 at 12:00 Colistimethate Sodium/Sodium Chloride (Coly-Mycin/NS) 100 ml @ 200 mls/hr Q24H IVPB Last administered on 08/07/16 17:24; Admin Dose 200 MLS/HR; Start 08/05/16 at 17:00 Linezolid (Zyvox) 600 mg BID PO Last administered on 08/08/16 09:41; Admin Dose 600 MG; Start 08/05/16 at 21:00 Furosemide 20 mg 20 mg Q8 IV Last administered on 08/08/16 05:17; Admin Dose 20 MG; Start 08/07/16 at 14:00; Stop 08/08/16 at 22:00 Potassium Chloride (KCl 40 MEQ/250 ML NS) 250 ml @ 62.5 mls/hr Q4H IVPB ; Start 08/08/16 at 11:30; Stop 08/08/16 at 19:29 Docusate Sodium (Colace) 100 mg Q12H PO ; Start 08/08/16 at 21:00 Insulin Aspart (Novolog Insulin Pen) NOVOLOG *MODERATE* ALGORI... Q4 SC ; Start 08/08/16 at 13:00 Metformin HCl (Glucophage) 500 mg Q12 PO ; Start 08/08/16 at 21:00 LESLIE FERRARO NP Aug 08, 2016 12:20
--- NOTE | 2016-08-08 12:25 | QN ---
Documentation Comment Discussed with primary care team. Patient currently not stable for general anesthesia and surgical intervention. Will follow up when medically optimized for diverting colostomy. ALEKSANDR ROBERTS MD Aug 08, 2016 12:25
--- NOTE | 2016-08-08 13:32 | CONS ---
Date/Time of Note Date/Time of Note DATE: 08/08/16 TIME: 13:30 Assessment/Plan Assessment/Plan Additional Assessment/Plan Ventilator settings; AC of 24, tidal volume of 500, PEEP of 5, 60% FiO2. Chest x-ray was reviewed from today which is again showing diffuse bilateral infiltrates more pronounced in lower lobes bilaterally. Assessment recommendations; 1. Patient admitted for bilateral pneumonia and sacral decubitus ulcers. 2. History of quadriplegia due to C2 spinal injury. 3. Slightly improved leukocytosis. Continue current treatment, ventilator settings. Consultation Date/Type/Reason Admit Date/Time Jul 31, 2016 at 14:20 Initial Consult Date 08/02/16 Type of Consultation: Pulmonary 24 HR Interval Summary Free Text/Dictation Patient condition remains stable. Ventilator dependent. General exam; young male, on ventilator via tracheostomy awake and alert. Currently in no distress. Exam/Review of Systems Vital Signs Vitals Vital Signs Date Time Temp Pulse Resp B/P Pulse Ox O2 Delivery O2 Flow Rate FiO2 08/08/16 12:35 82 08/08/16 11:33 97.4 20 112/57 100 08/08/16 11:05 60 08/06/16 12:44 Mechanical Ventilator Intake and Output 08/07/16 08/07/16 08/08/16 14:59 22:59 06:59 Intake Total 1150 ml 1320 ml 1285 ml Output Total 1700 ml 2450 ml 1400 ml Balance -550 ml -1130 ml -115 ml Exam HEENT examination; patient's neck is in a soft C-spine collar. Also been placed. He was a midsize reactive to light. Pharynx is clear. Patient has good dentition. No neck masses. Chest examination; diminished breath sound bilaterally. S1-S2 audible, no murmurs. Regular rhythm. Abdomen examination; soft, nondistended. No organomegaly. Bowel sounds audible. G-tube in place. Extremity examination; no peripheral edema. Back examination revealed multiple sacral ulcers. [employer] examination patient is stable quadriplegia. Results Result Diagram: 08/08/16 0723 08/08/16 0723 Results 24 hrs Laboratory Tests Test 08/07/16 17:12 08/07/16 20:13 08/08/16 01:07 08/08/16 07:23 Bedside Glucose 167 184 160 Anion Gap 12 Basophils # 0.0 Basophils % 0.1 Blood Urea Nitrogen 45 H Calcium Level 9.4 Carbon Dioxide Level 30 Chloride Level 100 Creatinine 1.07 Eosinophils # 0.3 Eosinophils % 1.4 Glucose Level 139 Hematocrit 28.0 L Hemoglobin 8.6 L Lymphocytes # 0.9 Lymphocytes % 3.9 L Magnesium Level 2.1 Mean Corpuscular Hemoglobin 25.4 L Mean Corpuscular Hemoglobin Concent 30.7 L Mean Corpuscular Volume 82.8 Mean Platelet Volume 10.0 Monocytes # 0.5 Monocytes % 2.2 Neutrophils # 19.9 H Neutrophils % 91.3 H Nucleated Red Blood Cells # 0.0 Nucleated Red Blood Cells % 0.0 Platelet Count 509 H Potassium Level 3.4 L Red Blood Count 3.38 L Red Cell Distribution Width 16.7 H Sodium Level 139 White Blood Count 21.8 H Test 08/08/16 09:46 Bedside Glucose 183 Medications Medications Current Medications Ondansetron HCl (Zofran Inj) 4 mg Q6H PRN IV NAUSEA AND/OR VOMITING; Start at 15:00 Acetaminophen (Tylenol Tab) 650 mg Q6H PRN PO PAIN LEVEL 1-3 OR FEVER Last administered on 08/08/16 09:44; Admin Dose 650 MG; Start 07/31/16 at 15:00 Morphine Sulfate (morphine) 2 mg Q4H PRN IV SEVERE PAIN LEVEL 7-10 Last administered on 08/02/16 20:59; Admin Dose 2 MG; Start 07/31/16 at 15:00 Magnesium Hydroxide (Milk Of Mag) 30 ml DAILY PRN PO CONSTIPATION; Start at 15:00 Sodium Biphosphate/ Sodium Phosphate (Fleet Enema) 133 ml DAILY PRN [place] CONSTIPATION; Start 07/31/16 at 15:00 Famotidine (Pepcid Iv) 20 mg Q12 IV Last administered on 08/08/16 09:41; Admin Dose 20 MG; Start 07/31/16 at 21:00 Hydralazine HCl (Apresoline) 10 mg Q6H PRN IV ELEVATED BLOOD PRESSURE; Start at 15:00 Nitroglycerin (Nitroglycerin (Sl Tab) 0.4 Mg) 1 tab Q5M PRN SL ANGINA; Start at 15:00 Miscellaneous Information 1 ea NOTE XX ; Start 07/31/16 at 16:30 Glucose (Glutose) 15 gm Q15M PRN PO DECREASED GLUCOSE; Start 07/31/16 at 16:30 Glucose (Glutose) 22.5 gm Q15M PRN PO DECREASED GLUCOSE; Start 07/31/16 at 16: 30 Dextrose (D50w Syringe) 25 ml Q15M PRN IV DECREASED GLUCOSE; Start 07/31/16 at 16:30 Dextrose (D50w Syringe) 50 ml Q15M PRN IV DECREASED GLUCOSE; Start 07/31/16 at 16:30 Glucagon (Glucagen) 1 mg Q15M PRN IM DECREASED GLUCOSE; Start 07/31/16 at 16:30 Glucose (Glutose) 15 gm Q15M PRN BUCCAL DECREASED GLUCOSE; Start 07/31/16 at 16 :30 Sodium Hypochlorite (Dakin'S (1/4 Strength)) 1 applic BID IRR Last administered on 08/08/16 09:41; Admin Dose 1 APPLIC; Start 08/01/16 at 21:00 Calcium Carbonate (Ca Carbonate) 1,250 mg BID GTB Last administered on 09:40; Admin Dose 1,250 MG; Start 08/01/16 at 22:30 Acetaminophen/ Hydrocodone Bitart ([place] (5/325)) 1 tab Q4H PRN PEG MODERATE PAIN LEVEL 4-6 Last administered on 08/06/16 18:09; Admin Dose 1 TAB; Start 08/02 at 00:00 Lorazepam (Ativan) 0.5 mg Q4H PRN IV ANXIETY Last administered on 08/08/16 09: 43; Admin Dose 0.5 MG; Start 08/02/16 at 00:00 Zolpidem Tartrate (Ambien) 10 mg HS PRN PEG INSOMNIA Last administered on 00:35; Admin Dose 10 MG; Start 08/02/16 at 03:30 Fluconazole (Diflucan) 100 mg DAILY PO Last administered on 08/08/16 09:40; Admin Dose 100 MG; Start 08/02/16 at 12:30 Lactobacillus Acidoph/Bulgaricus (Floranex) 1 tab TID PO Last administered on 09:41; Admin Dose 1 TAB; Start 08/02/16 at 13:00 Ibuprofen (Motrin) 600 mg Q6H PRN PO PAIN OR TEMP ABOVE 38C; Start 08/02/16 at 15:00 Zinc Sulfate (Zinc Sulfate) 220 mg DAILY GTB Last administered on 08/08/16 09: 40; Admin Dose 220 MG; Start 08/03/16 at 11:30 Multivitamins Therapeutic (Theragran) 1 tab DAILY PO Last administered on 09:41; Admin Dose 1 TAB; Start 08/03/16 at 11:30 Ascorbic Acid (Vitamin C) 500 mg BID GTB Last administered on 08/08/16 09:41; Admin Dose 500 MG; Start 08/03/16 at 11:30 Metronidazole (Flagyl) 500 mg Q8 PO Last administered on 08/08/16 05:18; Admin Dose 500 MG; Start 08/03/16 at 12:00 Sodium Hypochlorite (Dakin'S (Dilute 1/40%)) 1 applic BID IRR Last administered on 08/08/16 09:42; Admin Dose 1 APPLIC; Start 08/04/16 at 12:00 Hydromorphone HCl 0.5 mg 0.5 mg Q8H PRN IV PAIN Last administered on 08/07/16 16:31; Admin Dose 0.5 MG; Start 08/04/16 at 12:00 Colistimethate Sodium/Sodium Chloride (Coly-Mycin/NS) 100 ml @ 200 mls/hr Q24H IVPB Last administered on 08/07/16 17:24; Admin Dose 200 MLS/HR; Start 08/05/16 at 17:00 Linezolid (Zyvox) 600 mg BID PO Last administered on 08/08/16 09:41; Admin Dose 600 MG; Start 08/05/16 at 21:00 Furosemide 20 mg 20 mg Q8 IV Last administered on 08/08/16 05:17; Admin Dose 20 MG; Start 08/07/16 at 14:00; Stop 08/08/16 at 22:00 Potassium Chloride (KCl 40 MEQ/250 ML NS) 250 ml @ 62.5 mls/hr Q4H IVPB ; Start 08/08/16 at 11:30; Stop 08/08/16 at 19:29 Docusate Sodium (Colace) 100 mg Q12H PO ; Start 08/08/16 at 21:00 Insulin Aspart (Novolog Insulin Pen) NOVOLOG *MODERATE* ALGORI... Q4 SC ; Start 08/08/16 at 13:00 Metformin HCl (Glucophage) 500 mg Q12 PO ; Start 08/08/16 at 21:00 AILSSON ARRIOLA Aug 08, 2016 13:32
[2016-08-08] MEDS: POTASSIUM CHLORIDE 250 ML IVPB SCH ×2 (13:45→18:23)
[2016-08-08] MEDS: ALBUTEROL/IPRATROPIUM (NEB) 3 ML AMP HHN PRN (14:47)
[2016-08-08] MEDS: CEFEPIME 1GM/50 ML (PMX) 50 ML IVPB SCH (17:28)
[2016-08-08] MEDS: HYDROmorphONE 1 MG/ML SYG IV PRN (17:29)
[2016-08-08] MEDS: COLISTIMETHATE 150 MG in SOD CHLORIDE 0.9% 100 ML IVPB SCH (18:22)
[2016-08-08] MEDS: DOCUSATE SODIUM 100 MG CAP PO SCH (20:54)
[2016-08-08] MEDS: metFORMIN 500 MG TAB PO SCH (21:00)
[2016-08-08] MEDS ORDERED: CEFEPIME 1GM/50 ML (PMX) 50 ML IVPB SCH (21:00)
[2016-08-09] VITALS (29 sets, daily range): BP systolic 84–116; BP diastolic 49–82; PULSE 94–145; RESP 18–28
[2016-08-09] MEDS: ALBUTEROL/IPRATROPIUM (NEB) 3 ML AMP HHN PRN ×2 (00:17→05:33)
[2016-08-09] MEDS: LORAZEPAM 2 MG INJ IV PRN ×2 (00:26→09:31)
[2016-08-09] MEDS: CEFEPIME 1GM/50 ML (PMX) 50 ML IVPB SCH ×3 (00:39→21:03)
[2016-08-09] MEDS: ZOLPIDEM 5 MG TAB PEG PRN (00:39)
[2016-08-09] MEDS: INSULIN ASPART [NOVOLOG] 3 ML PEN SC SCH ×6 (00:55→21:00)
[2016-08-09] MEDS: metroNIDAZOLE 500 MG TAB PO SCH ×3 (05:07→21:49)
[2016-08-09] MEDS ORDERED: FUROSEMIDE 20 MG INJ IV SCH (06:00)
[2016-08-09 07:09] LABS: ADD SCAN DIFF NO
[2016-08-09 07:20] LABS: BASOPHILS % 0.2 % (0.0-2.0); EOSINOPHILS # 0.2 10^3/ul (0.0-0.5); EOSINOPHILS % 1.5 % (0.0-7.0); HEMATOCRIT 24.9 % (42.0-52.0); HEMOGLOBIN 7.9 g/dl (14.0-18.0); LYMPHOCYTES # 0.7 10^3/ul (0.8-2.9); LYMPHOCYTES % 4.3 % (15.0-51.0); MEAN CORPUSCULAR HEMOGLOBIN 25.7 pg (29.0-33.0); MEAN CORPUSCULAR HGB CONC 31.7 g/dl (32.0-37.0); MEAN CORPUSCULAR VOLUME 81.1 fl (82.0-101.0); MEAN PLATELET VOLUME 9.6 fl (7.4-10.4); MONOCYTE # 0.5 10^3/ul (0.3-0.9); NEUTROPHIL # 14.3 10^3/ul (1.6-7.5); PLATELET COUNT 535 10^3/UL (140-415); RED BLOOD COUNT 3.07 10^6/ul (4.70-6.10); RED CELL DISTRIBUTION WIDTH 16.9 % (11.5-14.5)
[2016-08-09 07:38] LABS: PHOSPHORUS 3.8 mg/dl (2.5-4.9)
[2016-08-09 07:39] LABS: MAGNESIUM 1.9 mg/dl (1.7-2.5)
[2016-08-09 07:47] LABS: TOTAL IRON BINDING CAPACITY 149 ug/dl (241-421)
[2016-08-09 07:48] LABS: IRON < 10 ug/dl (35-150)
[2016-08-09 08:55] LABS: ALBUMIN 2.1 g/dl (3.3-4.9); POTASSIUM 4.7 mmol/L (3.5-5.1)
[2016-08-09 08:58] LABS: CREATININE 1.18 mg/dl (0.61-1.24)
[2016-08-09 08:59] LABS: CALCIUM 9.7 mg/dl (8.4-10.2); PHOSPHORUS 3.8 mg/dl (2.5-4.9)
[2016-08-09 09:15] LABS: T3 UPTAKE 47.8 % (23.5-40.5)
[2016-08-09] MEDS: MULTIVITAMINS THERAPEUTIC TAB PO SCH (09:23)
[2016-08-09] MEDS: metFORMIN 500 MG TAB PO SCH ×2 (09:23→21:04)
[2016-08-09] MEDS: CA CARBONATE (250 MG/ML) 5ML CUP GTB SCH ×2 (09:23→21:01)
[2016-08-09] MEDS: ZINC SULFATE 220 MG CAP GTB SCH (09:23)
[2016-08-09] MEDS: LACTOBACILLUS CHEW TAB PO SCH ×3 (09:23→21:04)
[2016-08-09] MEDS: ASCORBIC ACID 500 MG TAB GTB SCH ×2 (09:23→21:02)
[2016-08-09] MEDS: DOCUSATE SODIUM 100 MG CAP PO SCH ×2 (09:23→21:00)
[2016-08-09] MEDS: FLUCONAZOLE 100 MG TAB PO SCH (09:23)
[2016-08-09] MEDS: FAMOTIDINE 20 MG INJ IV SCH ×2 (09:24→21:05)
[2016-08-09] MEDS: SODIUM HYPOCHLORITE 0.125% 473 ML BTL IRR SCH ×2 (09:25→21:02)
[2016-08-09] MEDS: SODIUM HYPOCHLORITE 1/40% 1L IRRIG IRR SCH ×2 (09:25→21:02)
[2016-08-09 09:29] LABS: THYROID STIMULATING HORMONE 7.29 MIU/L (0.465-4.680)
[2016-08-09] MEDS: ZYVOX 600 MG TAB PO SCH ×2 (09:31→21:04)
[2016-08-09] MEDS: ACETAMINOPHEN 325 MG TAB PO PRN (10:12)
--- NOTE | 2016-08-09 11:59 | PN ---
Date/Time of Note Date/Time of Note DATE: 08/09/16 TIME: 11:53 Assessment/Plan VTE Prophylaxis VTE Prophylaxis Intervention: heparin Lines/Catheters IV C[facility]from [facility] PORTHACATH Urinary Cath still in place: Yes Reason Cath still needed: other (indicate) Assessment/Plan Assessment/Plan 46-year-old male sent in with fever and diaphoresis with findings of sepsis with hypotension, tachycardia, likely secondary to possible decubitus ulcer worsening infection. 1. Sepsis - sec to resp infection+ UTI + decubitus ulcer infx. 2. Chronic respiratory failure,Vent dependent via trach 3. Recurrent Multifocal bronchitis/bronchiolitis/bronchopneumonia 4. Chronic Dysphagia currently on G-tube feeds. 2/2 #5 5. Chronic quadriplegia 2/2 C2 fracture + chronic neuropathy / with cervical collar still in place 6. Multiple infected decubiti down to the bone 7. Severe hypochromic microcytic anemia likely with a component of chronic blood loss from ulcers r/o iron deficiency 8. DM 2 with suboptimal control 9. Cardiomyopathy with ejection fraction 45-50% via echo on previous admission 10. Pseudomonas / Addis UTI PLAN: * worsened menatation likely 2/2 high fevers * Continue diuresis per cardiology * Spoke with surgery, patient is not a good candidate for elective surgery at this time. Will await cardiology clearance * Continue abx per ID / patient still spiking fevers despite aggressive abx therapy / will change Oliveira / aggressive fever control * Continue supportive care and all other mgt * Gastrointestinal prophylaxis. H2 pam. * Deep venous thrombosis prophylaxis. Heparin subcutaneous. Subjective 24 Hr Interval Summary Free Text/Dictation having fevers again Exam/Review of Systems Vital Signs Vitals Vital Signs Date Time Temp Pulse Resp B/P Pulse Ox O2 Delivery O2 Flow Rate FiO2 08/09/16 11:25 102.3 134 90/52 08/09/16 11:21 18 93 08/09/16 11:04 45 08/09/16 10:10 Ambu Bag Mechanical Ventilator Trach Collar Intake and Output 08/08/16 08/08/16 08/09/16 14:59 22:59 06:59 Intake Total 1720 ml 1235 ml Output Total 3250 ml 1200 ml Balance -1530 ml 35 ml Exam Constitutional: frail, other (very lethargic, acutely ill, ), No alert, No oriented ENMT: other (trach to vent) Respiratory: diminished breath sounds, No wheezing Cardiovascular: nl pulses, No regular rate and rhythm Gastrointestinal: bowel sounds, soft Musculoskeletal: muscle weakness, No muscle tone, No nl extremities to inspection Extremities: edema, other (chronic msc wasting) Neurological: lethargic, other (quadriplegic) Results Result Diagram: 08/09/16 0632 08/09/16 0632 Results 24 hrs Laboratory Tests Test 08/08/16 13:54 08/08/16 18:20 08/08/16 20:15 08/09/16 00:49 Bedside Glucose 167 143 139 147 Test 08/09/16 04:30 08/09/16 06:32 08/09/16 09:33 Bedside Glucose 126 156 Albumin 2.1 L Anion Gap 16 Basophils # 0.0 Basophils % 0.2 Blood Urea Nitrogen 48 H Calcium Level 9.7 Carbon Dioxide Level 28 Chloride Level 102 Creatinine 1.18 Eosinophils # 0.2 Eosinophils % 1.5 Free Thyroxine Index 2.44 Glucose Level 117 Hematocrit 24.9 L Hemoglobin 7.9 L Iron Level < 10 L Lymphocytes # 0.7 L Lymphocytes % 4.3 L Magnesium Level 1.9 Mean Corpuscular Hemoglobin 25.7 L Mean Corpuscular Hemoglobin Concent 31.7 L Mean Corpuscular Volume 81.1 L Mean Platelet Volume 9.6 Monocytes # 0.5 Monocytes % 3.0 Neutrophils # 14.3 H Neutrophils % 89.0 H Nucleated Red Blood Cells # 0.0 Nucleated Red Blood Cells % 0.0 Percent Iron Saturation Phosphorus Level 3.8 Platelet Count 535 H Potassium Level 4.7 Red Blood Count 3.07 L Red Cell Distribution Width 16.9 H Sodium Level 141 Thyroid Stimulating Hormone (TSH) 7.290 H Thyroxine (T4) 5.1 L Total Iron Binding Capacity 149 L Triiodothyronine (T3) Uptake 47.8 H White Blood Count 16.0 #H Medications Medications Current Medications Ondansetron HCl (Zofran Inj) 4 mg Q6H PRN IV NAUSEA AND/OR VOMITING; Start at 15:00 Acetaminophen (Tylenol Tab) 650 mg Q6H PRN PO PAIN LEVEL 1-3 OR FEVER Last administered on 08/09/16t 10:12; Admin Dose 650 MG; Start 07/31/16 at 15:00 Morphine Sulfate (morphine) 2 mg Q4H PRN IV SEVERE PAIN LEVEL 7-10 Last administered on 08/02/16 20:59; Admin Dose 2 MG; Start 07/31/16 at 15:00 Magnesium Hydroxide (Milk Of Mag) 30 ml DAILY PRN PO CONSTIPATION; Start at 15:00 Sodium Biphosphate/ Sodium Phosphate (Fleet Enema) 133 ml DAILY PRN [place] CONSTIPATION; Start 07/31/16 at 15:00 Famotidine (Pepcid Iv) 20 mg Q12 IV Last administered on 08/09/16 09:24; Admin Dose 20 MG; Start 07/31/16 at 21:00 Hydralazine HCl (Apresoline) 10 mg Q6H PRN IV ELEVATED BLOOD PRESSURE; Start at 15:00 Nitroglycerin (Nitroglycerin (Sl Tab) 0.4 Mg) 1 tab Q5M PRN SL ANGINA; Start at 15:00 Miscellaneous Information 1 ea NOTE XX ; Start 07/31/16 at 16:30 Glucose (Glutose) 15 gm Q15M PRN PO DECREASED GLUCOSE; Start 07/31/16 at 16:30 Glucose (Glutose) 22.5 gm Q15M PRN PO DECREASED GLUCOSE; Start 07/31/16 at 16: 30 Dextrose (D50w Syringe) 25 ml Q15M PRN IV DECREASED GLUCOSE; Start 07/31/16 at 16:30 Dextrose (D50w Syringe) 50 ml Q15M PRN IV DECREASED GLUCOSE; Start 07/31/16 at 16:30 Glucagon (Glucagen) 1 mg Q15M PRN IM DECREASED GLUCOSE; Start 07/31/16 at 16:30 Glucose (Glutose) 15 gm Q15M PRN BUCCAL DECREASED GLUCOSE; Start 07/31/16 at 16 :30 Sodium Hypochlorite (Dakin'S (1/4 Strength)) 1 applic BID IRR Last administered on 08/09/16 09:25; Admin Dose 1 APPLIC; Start 08/01/16 at 21:00 Calcium Carbonate (Ca Carbonate) 1,250 mg BID GTB Last administered on 09:23; Admin Dose 1,250 MG; Start 08/01/16 at 22:30 Acetaminophen/ Hydrocodone Bitart ([place] (5/325)) 1 tab Q4H PRN PEG MODERATE PAIN LEVEL 4-6 Last administered on 08/06/16 18:09; Admin Dose 1 TAB; Start 08/02 at 00:00 Lorazepam (Ativan) 0.5 mg Q4H PRN IV ANXIETY Last administered on 08/09/16 09: 31; Admin Dose 0.5 MG; Start 08/02/16 at 00:00 Zolpidem Tartrate (Ambien) 10 mg HS PRN PEG INSOMNIA Last administered on 00:39; Admin Dose 10 MG; Start 08/02/16 at 03:30 Fluconazole (Diflucan) 100 mg DAILY PO Last administered on 08/09/16 09:23; Admin Dose 100 MG; Start 08/02/16 at 12:30 Lactobacillus Acidoph/Bulgaricus (Floranex) 1 tab TID PO Last administered on 09:23; Admin Dose 1 TAB; Start 08/02/16 at 13:00 Ibuprofen (Motrin) 600 mg Q6H PRN PO PAIN OR TEMP ABOVE 38C; Start 08/02/16 at 15:00 Zinc Sulfate (Zinc Sulfate) 220 mg DAILY GTB Last administered on 08/09/16 09: 23; Admin Dose 220 MG; Start 08/03/16 at 11:30 Multivitamins Therapeutic (Theragran) 1 tab DAILY PO Last administered on 09:23; Admin Dose 1 TAB; Start 08/03/16 at 11:30 Ascorbic Acid (Vitamin C) 500 mg BID GTB Last administered on 08/09/16 09:23; Admin Dose 500 MG; Start 08/03/16 at 11:30 Metronidazole (Flagyl) 500 mg Q8 PO Last administered on 08/09/16 05:07; Admin Dose 500 MG; Start 08/03/16 at 12:00 Sodium Hypochlorite (Dakin'S (Dilute 1/40%)) 1 applic BID IRR Last administered on 08/09/16 09:25; Admin Dose 1 APPLIC; Start 08/04/16 at 12:00 Hydromorphone HCl 0.5 mg 0.5 mg Q8H PRN IV PAIN Last administered on 08/08/16 17:29; Admin Dose 0.5 MG; Start 08/04/16 at 12:00 Colistimethate Sodium/Sodium Chloride (Coly-Mycin/NS) 100 ml @ 200 mls/hr Q24H IVPB Last administered on 08/08/16 18:22; Admin Dose 200 MLS/HR; Start 08/05/16 at 17:00 Linezolid (Zyvox) 600 mg BID PO Last administered on 08/09/16 09:31; Admin Dose 600 MG; Start 08/05/16 at 21:00 Docusate Sodium (Colace) 100 mg Q12H PO Last administered on 08/09/16 09:23; Admin Dose 100 MG; Start 08/08/16 at 21:00 Insulin Aspart (Novolog Insulin Pen) NOVOLOG *MODERATE* ALGORI... Q4 SC Last administered on 08/09/16 09:34; Admin Dose 2 UNIT; Start 08/08/16 at 13:00 Metformin HCl 500 mg 500 mg Q12 PO Last administered on 08/09/16 09:23; Admin Dose 500 MG; Start 08/08/16 at 21:00 Cefepime HCl (Maxipime 1gm/50 ml (Pmx)) 50 ml @ 100 mls/hr Q12 IVPB Last administered on 08/09/16 09:31; Admin Dose 100 MLS/HR; Start 08/08/16 at 16:00 Ibuprofen (Motrin) 400 mg ONCE ONCE GTB Last administered on 08/09/16 11:51; Admin Dose 400 MG; Start 08/09/16 at 12:00; Stop 08/09/16 at 12:01 ALDO BRADEN Aug 09, 2016 11:59
[2016-08-09] MEDS ORDERED: IBUPROFEN 200 MG TAB GTB ONE (12:00)
[2016-08-09] MEDS ORDERED: IBUPROFEN 400 MG TAB GTB ONE (12:00)
[2016-08-09] MEDS ORDERED: DILTIAZEM 25 MG INJ IV STA (12:05)
--- NOTE | 2016-08-09 13:20 | CONS ---
Date/Time of Note Date/Time of Note DATE: 08/09/16 TIME: 13:16 Assessment/Plan Assessment/Plan Additional Assessment/Plan Sepsis Acute decompensated systolic congestive heart failure Sinus tachycardia C2 fracture and quadriplegic Respiratory failure Cardiomyopathy with ejection fraction 45-50% via echo on previous admission Decubiti -Patient with improvement in volume status after Lasix but currently febrile and borderline low blood pressure. Lasix has been stopped. Telemetry unclear if sinus tachycardia versus atrial flutter, after given IV Cardizem, it appears like sinus tachycardia. Antibiotics as per our infectious disease colleagues. If blood pressure does not improve, might need IV hydration. No antihypertensives at the current time. Consultation Date/Type/Reason Admit Date/Time Jul 31, 2016 at 14:20 Type of Consultation: cv 24 HR Interval Summary Free Text/Dictation Patient febrile today and more lethargic. Denies shortness of breath Exam/Review of Systems Vital Signs Vitals Vital Signs Date Time Temp Pulse Resp B/P Pulse Ox O2 Delivery O2 Flow Rate FiO2 08/09/16 12:37 115 84/50 08/09/16 12:24 101.8 96 08/09/16 11:21 18 08/09/16 11:04 45 08/09/16 10:10 Ambu Bag Mechanical Ventilator Trach Collar Intake and Output 08/08/16 08/08/16 08/09/16 15:00 23:00 07:00 Intake Total 1720 ml 1235 ml Output Total 3250 ml 1200 ml Balance -1530 ml 35 ml Exam Sleeping but arousable, able to give some history Neck: other (C-collar, tracheostomy) Respiratory: other (Coarse breath sounds bilaterally, no wheezing) Cardiovascular: other (S1-S2 heard), regular rate and rhythm (Tachycardia) Gastrointestinal: bowel sounds, non-tender, other (No guarding or grimacing with palpation), soft Extremities: edema, other (No cyanosis) Results Result Diagram: 08/09/16 0632 08/09/16 0632 Results 24 hrs Laboratory Tests Test 08/08/16 13:54 08/08/16 18:20 08/08/16 20:15 08/09/16 00:49 Bedside Glucose 167 143 139 147 Test 08/09/16 04:30 08/09/16 06:32 08/09/16 09:33 08/09/16 12:55 Bedside Glucose 126 156 183 Albumin 2.1 L Anion Gap 16 Basophils # 0.0 Basophils % 0.2 Blood Urea Nitrogen 48 H Calcium Level 9.7 Carbon Dioxide Level 28 Chloride Level 102 Creatinine 1.18 Eosinophils # 0.2 Eosinophils % 1.5 Free Thyroxine Index 2.44 Glucose Level 117 Hematocrit 24.9 L Hemoglobin 7.9 L Iron Level < 10 L Lymphocytes # 0.7 L Lymphocytes % 4.3 L Magnesium Level 1.9 Mean Corpuscular Hemoglobin 25.7 L Mean Corpuscular Hemoglobin Concent 31.7 L Mean Corpuscular Volume 81.1 L Mean Platelet Volume 9.6 Monocytes # 0.5 Monocytes % 3.0 Neutrophils # 14.3 H Neutrophils % 89.0 H Nucleated Red Blood Cells # 0.0 Nucleated Red Blood Cells % 0.0 Percent Iron Saturation Phosphorus Level 3.8 Platelet Count 535 H Potassium Level 4.7 Red Blood Count 3.07 L Red Cell Distribution Width 16.9 H Sodium Level 141 Thyroid Stimulating Hormone (TSH) 7.290 H Thyroxine (T4) 5.1 L Total Iron Binding Capacity 149 L Triiodothyronine (T3) Uptake 47.8 H White Blood Count 16.0 #H Medications Medications Current Medications Ondansetron HCl (Zofran Inj) 4 mg Q6H PRN IV NAUSEA AND/OR VOMITING; Start at 15:00 Acetaminophen (Tylenol Tab) 650 mg Q6H PRN PO PAIN LEVEL 1-3 OR FEVER Last administered on 08/09/16 10:12; Admin Dose 650 MG; Start 07/31/16 at 15:00 Morphine Sulfate (morphine) 2 mg Q4H PRN IV SEVERE PAIN LEVEL 7-10 Last administered on 08/02/16 20:59; Admin Dose 2 MG; Start 07/31/16 at 15:00 Magnesium Hydroxide (Milk Of Mag) 30 ml DAILY PRN PO CONSTIPATION; Start at 15:00 Sodium Biphosphate/ Sodium Phosphate (Fleet Enema) 133 ml DAILY PRN [place] CONSTIPATION; Start 07/31/16 at 15:00 Famotidine (Pepcid Iv) 20 mg Q12 IV Last administered on 08/09/16 09:24; Admin Dose 20 MG; Start 07/31/16 at 21:00 Hydralazine HCl (Apresoline) 10 mg Q6H PRN IV ELEVATED BLOOD PRESSURE; Start at 15:00 Nitroglycerin (Nitroglycerin (Sl Tab) 0.4 Mg) 1 tab Q5M PRN SL ANGINA; Start at 15:00 Miscellaneous Information 1 ea NOTE XX ; Start 07/31/16 at 16:30 Glucose (Glutose) 15 gm Q15M PRN PO DECREASED GLUCOSE; Start 07/31/16 at 16:30 Glucose (Glutose) 22.5 gm Q15M PRN PO DECREASED GLUCOSE; Start 07/31/16 at 16: 30 Dextrose (D50w Syringe) 25 ml Q15M PRN IV DECREASED GLUCOSE; Start 07/31/16 at 16:30 Dextrose (D50w Syringe) 50 ml Q15M PRN IV DECREASED GLUCOSE; Start 07/31/16 at 16:30 Glucagon (Glucagen) 1 mg Q15M PRN IM DECREASED GLUCOSE; Start 07/31/16 at 16:30 Glucose (Glutose) 15 gm Q15M PRN BUCCAL DECREASED GLUCOSE; Start 07/31/16 at 16 :30 Sodium Hypochlorite (Dakin'S (1/4 Strength)) 1 applic BID IRR Last administered on 08/09/16 09:25; Admin Dose 1 APPLIC; Start 08/01/16 at 21:00 Calcium Carbonate (Ca Carbonate) 1,250 mg BID GTB Last administered on 09:23; Admin Dose 1,250 MG; Start 08/01/16 at 22:30 Acetaminophen/ Hydrocodone Bitart ([place] (5/325)) 1 tab Q4H PRN PEG MODERATE PAIN LEVEL 4-6 Last administered on 08/06/16 18:09; Admin Dose 1 TAB; Start 08/02 at 00:00 Lorazepam (Ativan) 0.5 mg Q4H PRN IV ANXIETY Last administered on 08/09/16 09: 31; Admin Dose 0.5 MG; Start 08/02/16 at 00:00 Zolpidem Tartrate (Ambien) 10 mg HS PRN PEG INSOMNIA Last administered on 00:39; Admin Dose 10 MG; Start 08/02/16 at 03:30 Fluconazole (Diflucan) 100 mg DAILY PO Last administered on 08/09/16 09:23; Admin Dose 100 MG; Start 08/02/16 at 12:30 Lactobacillus Acidoph/Bulgaricus (Floranex) 1 tab TID PO Last administered on 12:24; Admin Dose 1 TAB; Start 08/02/16 at 13:00 Ibuprofen (Motrin) 600 mg Q6H PRN PO PAIN OR TEMP ABOVE 38C; Start 08/02/16 at 15:00 Zinc Sulfate (Zinc Sulfate) 220 mg DAILY GTB Last administered on 08/09/16 09: 23; Admin Dose 220 MG; Start 08/03/16 at 11:30 Multivitamins Therapeutic (Theragran) 1 tab DAILY PO Last administered on 09:23; Admin Dose 1 TAB; Start 08/03/16 at 11:30 Ascorbic Acid (Vitamin C) 500 mg BID GTB Last administered on 08/09/16 09:23; Admin Dose 500 MG; Start 08/03/16 at 11:30 Metronidazole (Flagyl) 500 mg Q8 PO Last administered on 08/09/16 05:07; Admin Dose 500 MG; Start 08/03/16 at 12:00 Sodium Hypochlorite (Dakin'S (Dilute 1/40%)) 1 applic BID IRR Last administered on 08/09/16 09:25; Admin Dose 1 APPLIC; Start 08/04/16 at 12:00 Hydromorphone HCl 0.5 mg 0.5 mg Q8H PRN IV PAIN Last administered on 08/08/16 17:29; Admin Dose 0.5 MG; Start 08/04/16 at 12:00 Colistimethate Sodium/Sodium Chloride (Coly-Mycin/NS) 100 ml @ 200 mls/hr Q24H IVPB Last administered on 08/08/16 18:22; Admin Dose 200 MLS/HR; Start 08/05/16 at 17:00 Linezolid (Zyvox) 600 mg BID PO Last administered on 08/09/16 09:31; Admin Dose 600 MG; Start 08/05/16 at 21:00 Docusate Sodium (Colace) 100 mg Q12H PO Last administered on 08/09/16 09:23; Admin Dose 100 MG; Start 08/08/16 at 21:00 Insulin Aspart (Novolog Insulin Pen) NOVOLOG *MODERATE* ALGORI... Q4 SC Last administered on 08/09/16 09:34; Admin Dose 2 UNIT; Start 08/08/16 at 13:00 Metformin HCl 500 mg 500 mg Q12 PO Last administered on 08/09/16 09:23; Admin Dose 500 MG; Start 08/08/16 at 21:00 Cefepime HCl (Maxipime 1gm/50 ml (Pmx)) 50 ml @ 100 mls/hr Q12 IVPB Last administered on 08/09/16 09:31; Admin Dose 100 MLS/HR; Start 08/08/16 at 16:00 Kb Barrett DO Aug 09, 2016 13:20
--- NOTE | 2016-08-09 13:44 | CONS ---
Date/Time of Note Date/Time of Note DATE: 08/09/16 TIME: 13:42 Assessment/Plan Assessment/Plan Chief Complaint/Hosp Course SUBJECTIVE: No events, lying comfortably in bed, spiking fevers MICROBIOLOGY: Urine culture grew [place] albicans Pseudomonas aeruginosa. Wound culture growing multi-drug resistant Klebsiella pneumoniae and gram- negative rods and Enterococcus species. INDWELLINGS: Trach, PEG, Oliveira, left chest Port-A-Cath. ANTIMICROBIALS: 1. Colistin. 2. Zyvox. 3. Fluconazole. 4. Flagyl 5. Cefepime PHYSICAL EXAMINATION: GENERAL: Chronically ill-appearing, well-developed, middle-aged man who is lying comfortably in bed. HEENT: Head atraumatic, normocephalic. Sclerae anicteric. Buccal mucosa dry. CHEST: Rise symmetrical. Breath sounds diminished to bases. HEART: S1, S2. ABDOMEN: Soft, bowel tones present. EXTREMITIES: With trace edema. Left upper extremity more edematous. ASSESSMENT: 1. Sepsis. 2. Multiple decubitus with wound culture growing multi-drug resistant organisms. 3. Healthcare-associated pneumonia. 4. Multidrug resistant urinary tract infection. 5. History of Clostridium difficile colitis. 6. 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 7. Left chest Port-A-Cath. PLAN: Remains unchanged. Continue abx, aggressive pulmonary toilet, local wound care. Colostomy once stable DW staff [place] Cheema Problems: Consultation Date/Type/Reason Admit Date/Time Jul 31, 2016 at 14:20 Initial Consult Date 08/02/16 Type of Consultation: ID Exam/Review of Systems Vital Signs Vitals Vital Signs Date Time Temp Pulse Resp B/P Pulse Ox O2 Delivery O2 Flow Rate FiO2 08/09/16 13:16 109 24 96 45 08/09/16 12:37 84/50 08/09/16 12:24 101.8 08/09/16 10:10 Ambu Bag Mechanical Ventilator Trach Collar Intake and Output 08/08/16 08/08/16 08/09/16 15:00 23:00 07:00 Intake Total 1720 ml 1235 ml Output Total 3250 ml 1200 ml Balance -1530 ml 35 ml Results Result Diagram: 08/09/16 0632 08/09/16 0632 Results 24 hrs Laboratory Tests Test 08/08/16 13:54 08/08/16 18:20 08/08/16 20:15 08/09/16 00:49 Bedside Glucose 167 143 139 147 Test 08/09/16 04:30 08/09/16 06:32 08/09/16 09:33 08/09/16 12:55 Bedside Glucose 126 156 183 Albumin 2.1 L Anion Gap 16 Basophils # 0.0 Basophils % 0.2 Blood Urea Nitrogen 48 H Calcium Level 9.7 Carbon Dioxide Level 28 Chloride Level 102 Creatinine 1.18 Eosinophils # 0.2 Eosinophils % 1.5 Free Thyroxine Index 2.44 Glucose Level 117 Hematocrit 24.9 L Hemoglobin 7.9 L Iron Level < 10 L Lymphocytes # 0.7 L Lymphocytes % 4.3 L Magnesium Level 1.9 Mean Corpuscular Hemoglobin 25.7 L Mean Corpuscular Hemoglobin Concent 31.7 L Mean Corpuscular Volume 81.1 L Mean Platelet Volume 9.6 Monocytes # 0.5 Monocytes % 3.0 Neutrophils # 14.3 H Neutrophils % 89.0 H Nucleated Red Blood Cells # 0.0 Nucleated Red Blood Cells % 0.0 Percent Iron Saturation Phosphorus Level 3.8 Platelet Count 535 H Potassium Level 4.7 Red Blood Count 3.07 L Red Cell Distribution Width 16.9 H Sodium Level 141 Thyroid Stimulating Hormone (TSH) 7.290 H Thyroxine (T4) 5.1 L Total Iron Binding Capacity 149 L Triiodothyronine (T3) Uptake 47.8 H White Blood Count 16.0 #H Medications Medications Current Medications Ondansetron HCl (Zofran Inj) 4 mg Q6H PRN IV NAUSEA AND/OR VOMITING; Start at 15:00 Acetaminophen (Tylenol Tab) 650 mg Q6H PRN PO PAIN LEVEL 1-3 OR FEVER Last administered on 08/09/16 10:12; Admin Dose 650 MG; Start 07/31/16 at 15:00 Morphine Sulfate (morphine) 2 mg Q4H PRN IV SEVERE PAIN LEVEL 7-10 Last administered on 08/02/16 20:59; Admin Dose 2 MG; Start 07/31/16 at 15:00 Magnesium Hydroxide (Milk Of Mag) 30 ml DAILY PRN PO CONSTIPATION; Start at 15:00 Sodium Biphosphate/ Sodium Phosphate (Fleet Enema) 133 ml DAILY PRN [place] CONSTIPATION; Start 07/31/16 at 15:00 Famotidine (Pepcid Iv) 20 mg Q12 IV Last administered on 08/09/16 09:24; Admin Dose 20 MG; Start 07/31/16 at 21:00 Hydralazine HCl (Apresoline) 10 mg Q6H PRN IV ELEVATED BLOOD PRESSURE; Start at 15:00 Nitroglycerin (Nitroglycerin (Sl Tab) 0.4 Mg) 1 tab Q5M PRN SL ANGINA; Start at 15:00 Miscellaneous Information 1 ea NOTE XX ; Start 07/31/16 at 16:30 Glucose (Glutose) 15 gm Q15M PRN PO DECREASED GLUCOSE; Start 07/31/16 at 16:30 Glucose (Glutose) 22.5 gm Q15M PRN PO DECREASED GLUCOSE; Start 07/31/16 at 16: 30 Dextrose (D50w Syringe) 25 ml Q15M PRN IV DECREASED GLUCOSE; Start 07/31/16 at 16:30 Dextrose (D50w Syringe) 50 ml Q15M PRN IV DECREASED GLUCOSE; Start 07/31/16 at 16:30 Glucagon (Glucagen) 1 mg Q15M PRN IM DECREASED GLUCOSE; Start 07/31/16 at 16:30 Glucose (Glutose) 15 gm Q15M PRN BUCCAL DECREASED GLUCOSE; Start 07/31/16 at 16 :30 Sodium Hypochlorite (Dakin'S (1/4 Strength)) 1 applic BID IRR Last administered on 08/09/16 09:25; Admin Dose 1 APPLIC; Start 08/01/16 at 21:00 Calcium Carbonate (Ca Carbonate) 1,250 mg BID GTB Last administered on 09:23; Admin Dose 1,250 MG; Start 08/01/16 at 22:30 Acetaminophen/ Hydrocodone Bitart ([place] (5/325)) 1 tab Q4H PRN PEG MODERATE PAIN LEVEL 4-6 Last administered on 08/06/16 18:09; Admin Dose 1 TAB; Start 08/02 at 00:00 Lorazepam (Ativan) 0.5 mg Q4H PRN IV ANXIETY Last administered on 08/09/16 09: 31; Admin Dose 0.5 MG; Start 08/02/16 at 00:00 Zolpidem Tartrate (Ambien) 10 mg HS PRN PEG INSOMNIA Last administered on 00:39; Admin Dose 10 MG; Start 08/02/16 at 03:30 Fluconazole (Diflucan) 100 mg DAILY PO Last administered on 08/09/16 09:23; Admin Dose 100 MG; Start 08/02/16 at 12:30 Lactobacillus Acidoph/Bulgaricus (Floranex) 1 tab TID PO Last administered on 12:24; Admin Dose 1 TAB; Start 08/02/16 at 13:00 Ibuprofen (Motrin) 600 mg Q6H PRN PO PAIN OR TEMP ABOVE 38C; Start 08/02/16 at 15:00 Zinc Sulfate (Zinc Sulfate) 220 mg DAILY GTB Last administered on 08/09/16 09: 23; Admin Dose 220 MG; Start 08/03/16 at 11:30 Multivitamins Therapeutic (Theragran) 1 tab DAILY PO Last administered on 09:23; Admin Dose 1 TAB; Start 08/03/16 at 11:30 Ascorbic Acid (Vitamin C) 500 mg BID GTB Last administered on 08/09/16 09:23; Admin Dose 500 MG; Start 08/03/16 at 11:30 Metronidazole (Flagyl) 500 mg Q8 PO Last administered on 08/09/16 05:07; Admin Dose 500 MG; Start 08/03/16 at 12:00 Sodium Hypochlorite (Dakin'S (Dilute 1/40%)) 1 applic BID IRR Last administered on 08/09/16 09:25; Admin Dose 1 APPLIC; Start 08/04/16 at 12:00 Hydromorphone HCl 0.5 mg 0.5 mg Q8H PRN IV PAIN Last administered on 08/08/16 17:29; Admin Dose 0.5 MG; Start 08/04/16 at 12:00 Colistimethate Sodium/Sodium Chloride (Coly-Mycin/NS) 100 ml @ 200 mls/hr Q24H IVPB Last administered on 08/08/16 18:22; Admin Dose 200 MLS/HR; Start 08/05/16 at 17:00 Linezolid (Zyvox) 600 mg BID PO Last administered on 08/09/16 09:31; Admin Dose 600 MG; Start 08/05/16 at 21:00 Docusate Sodium (Colace) 100 mg Q12H PO Last administered on 08/09/16 09:23; Admin Dose 100 MG; Start 08/08/16 at 21:00 Insulin Aspart (Novolog Insulin Pen) NOVOLOG *MODERATE* ALGORI... Q4 SC Last administered on 08/09/16 13:34; Admin Dose 4 UNIT; Start 08/08/16 at 13:00 Metformin HCl 500 mg 500 mg Q12 PO Last administered on 08/09/16 09:23; Admin Dose 500 MG; Start 08/08/16 at 21:00 Cefepime HCl (Maxipime 1gm/50 ml (Pmx)) 50 ml @ 100 mls/hr Q12 IVPB Last administered on 08/09/16 09:31; Admin Dose 100 MLS/HR; Start 08/08/16 at 16:00 LESLIE FERRARO NP Aug 09, 2016 13:44
[2016-08-09] MEDS: COLISTIMETHATE 150 MG in SOD CHLORIDE 0.9% 100 ML IVPB SCH (18:34)
[2016-08-09] MEDS: ACETAMINOPHEN 1000MG/100ML IV 100 ML IVPB SCH (18:41)
[2016-08-09] MEDS: SOD FERRIC GLUC COMPLX 125 MG in SOD CHLORIDE 0.9% 100 ML IVPB SCH (18:41)
[2016-08-10] VITALS (26 sets, daily range): BP systolic 115–144; BP diastolic 63–73; PULSE 81–100; RESP 18–29
[2016-08-10] MEDS: INSULIN ASPART [NOVOLOG] 3 ML PEN SC SCH ×6 (00:57→21:00)
[2016-08-10] MEDS: ACETAMINOPHEN 1000MG/100ML IV 100 ML IVPB SCH ×2 (00:57→09:16)
[2016-08-10] MEDS: metroNIDAZOLE 500 MG TAB PO SCH ×3 (05:03→21:30)
[2016-08-10] MEDS: HYDROmorphONE 1 MG/ML SYG IV PRN ×2 (05:08→22:43)
[2016-08-10 06:23] LABS: ADD SCAN DIFF NO
[2016-08-10 06:26] LABS: BASOPHILS % 0.1 % (0.0-2.0); EOSINOPHILS # 0.5 10^3/ul (0.0-0.5); EOSINOPHILS % 3.2 % (0.0-7.0); HEMATOCRIT 24.4 % (42.0-52.0); HEMOGLOBIN 7.6 g/dl (14.0-18.0); LYMPHOCYTES # 0.7 10^3/ul (0.8-2.9); LYMPHOCYTES % 4.7 % (15.0-51.0); MEAN CORPUSCULAR HEMOGLOBIN 25.7 pg (29.0-33.0); MEAN CORPUSCULAR HGB CONC 31.1 g/dl (32.0-37.0); MEAN CORPUSCULAR VOLUME 82.4 fl (82.0-101.0); MONOCYTE # 0.7 10^3/ul (0.3-0.9); MONOCYTES % 4.7 % (0.0-11.0); NEUTROPHIL # 11.8 10^3/ul (1.6-7.5); NEUTROPHILS % 83.6 % (39.0-77.0); PLATELET COUNT 506 10^3/UL (140-415); RED BLOOD COUNT 2.96 10^6/ul (4.70-6.10); RED CELL DISTRIBUTION WIDTH 16.8 % (11.5-14.5); WHITE BLOOD COUNT 14.2 10^3/ul (4.8-10.8)
[2016-08-10 06:56] LABS: ALBUMIN 2.2 g/dl (3.3-4.9)
[2016-08-10 06:58] LABS: CREATININE 1.18 mg/dl (0.61-1.24)
[2016-08-10 06:59] LABS: PHOSPHORUS 4.1 mg/dl (2.5-4.9)
[2016-08-10 07:12] LABS: T3 UPTAKE 48.7 % (23.5-40.5)
[2016-08-10 07:26] LABS: THYROID STIMULATING HORMONE 8.22 MIU/L (0.465-4.680)
[2016-08-10] MEDS: LACTOBACILLUS CHEW TAB PO SCH ×3 (09:16→21:29)
[2016-08-10] MEDS: metFORMIN 500 MG TAB PO SCH ×2 (09:16→21:30)
[2016-08-10] MEDS: ZYVOX 600 MG TAB PO SCH ×2 (09:16→21:53)
[2016-08-10] MEDS: ZINC SULFATE 220 MG CAP GTB SCH (09:16)
[2016-08-10] MEDS: MULTIVITAMINS THERAPEUTIC TAB PO SCH (09:16)
[2016-08-10] MEDS: CA CARBONATE (250 MG/ML) 5ML CUP GTB SCH ×2 (09:16→21:29)
[2016-08-10] MEDS: ASCORBIC ACID 500 MG TAB GTB SCH ×2 (09:17→21:29)
[2016-08-10] MEDS: FLUCONAZOLE 100 MG TAB PO SCH (09:17)
[2016-08-10] MEDS: FAMOTIDINE 20 MG INJ IV SCH ×2 (09:18→21:29)
[2016-08-10] MEDS: SODIUM HYPOCHLORITE 0.125% 473 ML BTL IRR SCH ×2 (09:18→21:32)
[2016-08-10] MEDS: FUROSEMIDE 20 MG INJ IV SCH (09:18)
[2016-08-10] MEDS: DOCUSATE SODIUM 100 MG CAP PO SCH ×2 (09:18→21:29)
[2016-08-10] MEDS: SODIUM HYPOCHLORITE 1/40% 1L IRRIG IRR SCH ×2 (09:18→21:53)
[2016-08-10] MEDS: CEFEPIME 1GM/50 ML (PMX) 50 ML IVPB SCH ×2 (09:19→21:25)
[2016-08-10] MEDS: ALBUTEROL/IPRATROPIUM (NEB) 3 ML AMP HHN PRN ×2 (12:07→20:57)
[2016-08-10] MEDS: COLISTIMETHATE 135 MG in SOD CHLORIDE 0.9% 100 ML IVPB SCH ×2 (12:24→21:53)
[2016-08-10] MEDS: LORAZEPAM 2 MG INJ IV PRN ×2 (12:29→23:20)
--- NOTE | 2016-08-10 12:49 | CONS ---
Date/Time of Note Date/Time of Note DATE: 08/10/16 TIME: 12:47 Assessment/Plan Assessment/Plan Chief Complaint/Hosp Course SUBJECTIVE: No events, awake, denies pain, lying comfortably in bed MICROBIOLOGY: Urine culture grew [place] albicans Pseudomonas aeruginosa. Wound culture growing multi-drug resistant Klebsiella pneumoniae and gram- negative rods and Enterococcus species. INDWELLINGS: Trach, PEG, Oliveira, left chest Port-A-Cath. ANTIMICROBIALS: 1. Colistin. 2. Zyvox. 3. Fluconazole. 4. Flagyl 5. Cefepime PHYSICAL EXAMINATION: GENERAL: Chronically ill-appearing, well-developed, middle-aged man who is lying comfortably in bed. HEENT: Head atraumatic, normocephalic. Sclerae anicteric. Buccal mucosa dry. CHEST: Rise symmetrical. Breath sounds diminished to bases. HEART: S1, S2. ABDOMEN: Soft, bowel tones present. EXTREMITIES: With trace edema. Left upper extremity more edematous. ASSESSMENT: 1. Sepsis with persistent fevers. 2. Multiple decubitus with wound culture growing multi-drug resistant organisms. 3. Healthcare-associated pneumonia. 4. Multidrug resistant urinary tract infection. 5. History of Clostridium difficile colitis. 6. 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 7. Left chest Port-A-Cath. PLAN: Remains unchanged. Fevers persist, will repeat bld cx from portacath as it could be a source of infection, continue abx, aggressive pulmonary toilet, local wound care. DW staff DW Dr Cheema Problems: Consultation Date/Type/Reason Admit Date/Time Jul 31, 2016 at 14:20 Initial Consult Date 08/02/16 Type of Consultation: ID Exam/Review of Systems Vital Signs Vitals Vital Signs Date Time Temp Pulse Resp B/P Pulse Ox O2 Delivery O2 Flow Rate FiO2 08/10/16 12:12 97 24 94 45 08/10/16 10:54 98.4 126/73 08/09/16 13:00 Mechanical Ventilator Intake and Output 08/09/16 08/09/16 08/10/16 15:00 23:00 07:00 Intake Total 1445 ml 2675 ml Output Total 2800 ml 1600 ml Balance -1355 ml 1075 ml Results Result Diagram: 08/10/16 0545 08/10/16 0545 Results 24 hrs Laboratory Tests Test 08/09/16 12:55 08/09/16 18:37 08/09/16 21:00 08/10/16 00:56 Bedside Glucose 183 118 126 111 Test 08/10/16 05:03 08/10/16 05:45 08/10/16 09:14 08/10/16 12:21 Bedside Glucose 105 131 132 Albumin 2.2 L Anion Gap 14 Basophils # 0.0 Basophils % 0.1 Blood Urea Nitrogen 54 H Calcium Level 10.0 Carbon Dioxide Level 28 Chloride Level 102 Creatinine 1.18 Eosinophils # 0.5 Eosinophils % 3.2 Free Thyroxine Index 2.14 Glucose Level 96 Hematocrit 24.4 L Hemoglobin 7.6 L Lymphocytes # 0.7 L Lymphocytes % 4.7 L Mean Corpuscular Hemoglobin 25.7 L Mean Corpuscular Hemoglobin Concent 31.1 L Mean Corpuscular Volume 82.4 Mean Platelet Volume 10.0 Monocytes # 0.7 Monocytes % 4.7 Neutrophils # 11.8 H Neutrophils % 83.6 H Nucleated Red Blood Cells # 0.0 Nucleated Red Blood Cells % 0.0 Phosphorus Level 4.1 Platelet Count 506 H Potassium Level 4.0 Red Blood Count 2.96 L Red Cell Distribution Width 16.8 H Sodium Level 140 Thyroid Stimulating Hormone (TSH) 8.220 H Thyroxine (T4) 4.4 L Triiodothyronine (T3) Uptake 48.7 H White Blood Count 14.2 H Medications Medications Current Medications Ondansetron HCl (Zofran Inj) 4 mg Q6H PRN IV NAUSEA AND/OR VOMITING; Start at 15:00 Acetaminophen (Tylenol Tab) 650 mg Q6H PRN PO PAIN LEVEL 1-3 OR FEVER Last administered on 08/09/16 10:12; Admin Dose 650 MG; Start 07/31/16 at 15:00 Morphine Sulfate (morphine) 2 mg Q4H PRN IV SEVERE PAIN LEVEL 7-10 Last administered on 08/02/16 20:59; Admin Dose 2 MG; Start 07/31/16 at 15:00 Magnesium Hydroxide (Milk Of Mag) 30 ml DAILY PRN PO CONSTIPATION; Start at 15:00 Sodium Biphosphate/ Sodium Phosphate (Fleet Enema) 133 ml DAILY PRN [place] CONSTIPATION; Start 07/31/16 at 15:00 Famotidine (Pepcid Iv) 20 mg Q12 IV Last administered on 08/10/16 09:18; Admin Dose 20 MG; Start 07/31/16 at 21:00 Hydralazine HCl (Apresoline) 10 mg Q6H PRN IV ELEVATED BLOOD PRESSURE; Start at 15:00 Nitroglycerin (Nitroglycerin (Sl Tab) 0.4 Mg) 1 tab Q5M PRN SL ANGINA; Start at 15:00 Miscellaneous Information 1 ea NOTE XX ; Start 07/31/16 at 16:30 Glucose (Glutose) 15 gm Q15M PRN PO DECREASED GLUCOSE; Start 07/31/16 at 16:30 Glucose (Glutose) 22.5 gm Q15M PRN PO DECREASED GLUCOSE; Start 07/31/16 at 16: 30 Dextrose (D50w Syringe) 25 ml Q15M PRN IV DECREASED GLUCOSE; Start 07/31/16 at 16:30 Dextrose (D50w Syringe) 50 ml Q15M PRN IV DECREASED GLUCOSE; Start 07/31/16 at 16:30 Glucagon (Glucagen) 1 mg Q15M PRN IM DECREASED GLUCOSE; Start 07/31/16 at 16:30 Glucose (Glutose) 15 gm Q15M PRN BUCCAL DECREASED GLUCOSE; Start 07/31/16 at 16 :30 Sodium Hypochlorite (Dakin'S (1/4 Strength)) 1 applic BID IRR Last administered on 08/10/16 09:18; Admin Dose 1 APPLIC; Start 08/01/16 at 21:00 Calcium Carbonate (Ca Carbonate) 1,250 mg BID GTB Last administered on 09:16; Admin Dose 1,250 MG; Start 08/01/16 at 22:30 Acetaminophen/ Hydrocodone Bitart ([place] (5/325)) 1 tab Q4H PRN PEG MODERATE PAIN LEVEL 4-6 Last administered on 08/06/16 18:09; Admin Dose 1 TAB; Start 08/02 at 00:00 Lorazepam (Ativan) 0.5 mg Q4H PRN IV ANXIETY Last administered on 08/10/16 12: 29; Admin Dose 0.5 MG; Start 08/02/16 at 00:00 Zolpidem Tartrate (Ambien) 10 mg HS PRN PEG INSOMNIA Last administered on 00:39; Admin Dose 10 MG; Start 08/02/16 at 03:30 Fluconazole (Diflucan) 100 mg DAILY PO Last administered on 08/10/16 09:17; Admin Dose 100 MG; Start 08/02/16 at 12:30 Lactobacillus Acidoph/Bulgaricus (Floranex) 1 tab TID PO Last administered on 12:24; Admin Dose 1 TAB; Start 08/02/16 at 13:00 Ibuprofen (Motrin) 600 mg Q6H PRN PO PAIN OR TEMP ABOVE 38C; Start 08/02/16 at 15:00 Zinc Sulfate (Zinc Sulfate) 220 mg DAILY GTB Last administered on 08/10/16 09: 16; Admin Dose 220 MG; Start 08/03/16 at 11:30 Multivitamins Therapeutic (Theragran) 1 tab DAILY PO Last administered on 09:16; Admin Dose 1 TAB; Start 08/03/16 at 11:30 Ascorbic Acid (Vitamin C) 500 mg BID GTB Last administered on 08/10/16 09:17; Admin Dose 500 MG; Start 08/03/16 at 11:30 Metronidazole (Flagyl) 500 mg Q8 PO Last administered on 08/10/16 05:03; Admin Dose 500 MG; Start 08/03/16 at 12:00 Sodium Hypochlorite (Dakin'S (Dilute 1/40%)) 1 applic BID IRR Last administered on 08/10/16 09:18; Admin Dose 1 APPLIC; Start 08/04/16 at 12:00 Hydromorphone HCl (Dilaudid) 0.5 mg Q8H PRN IV PAIN Last administered on 05:08; Admin Dose 0.5 MG; Start 08/04/16 at 12:00 Linezolid (Zyvox) 600 mg BID PO Last administered on 08/10/16 09:16; Admin Dose 600 MG; Start 08/05/16 at 21:00 Docusate Sodium (Colace) 100 mg Q12H PO Last administered on 08/10/16 09:18; Admin Dose 100 MG; Start 08/08/16 at 21:00 Insulin Aspart (Novolog Insulin Pen) NOVOLOG *MODERATE* ALGORI... Q4 SC Last administered on 08/09/16 13:34; Admin Dose 4 UNIT; Start 08/08/16 at 13:00 Metformin HCl 500 mg 500 mg Q12 PO Last administered on 08/10/16 09:16; Admin Dose 500 MG; Start 08/08/16 at 21:00 Cefepime HCl 50 ml @ 100 mls/hr Q12 IVPB Last administered on 08/10/16 09:19 ; Admin Dose 100 MLS/HR; Start 08/08/16 at 16:00 Ferric Sodium Gluconate Complex 125 mg/Sodium Chloride 110 ml @ 110 mls/hr Q24H IVPB Last administered on 08/09/16 18:41; Admin Dose 110 MLS/HR; Start 08/09/16 at 16:30; Stop 08/13/16 at 17:29 Acetaminophen (Ofirmev 1000mg/ 100ml Iv) 100 ml @ 400 mls/hr Q8H IVPB Last administered on 08/10/16 09:16; Admin Dose 400 MLS/HR; Start 08/09/16 at 16:30 Furosemide 20 mg 20 mg DAILY IV Last administered on 08/10/16 09:18; Admin Dose 20 MG; Start 08/10/16 at 09:00; Stop 08/12/16 at 09:01 Colistimethate Sodium/Sodium Chloride (Coly-Mycin/NS) 100 ml @ 200 mls/hr Q12 IVPB Last administered on 08/10/16 12:24; Admin Dose 200 MLS/HR; Start at 11:30 LESLIE FERRARO NP Aug 10, 2016 12:49
--- NOTE | 2016-08-10 13:57 | CONS ---
Date/Time of Note Date/Time of Note DATE: 08/10/16 TIME: 13:52 Assessment/Plan Assessment/Plan Additional Assessment/Plan Sepsis Acute decompensated systolic congestive heart failure Sinus tachycardia C2 fracture and quadriplegic Respiratory failure Cardiomyopathy with ejection fraction 45-50% via echo on previous admission Decubiti -Patient with improved temperature, blood pressure has improved. Patient has been restarted on IV diuretics as per primary team. Would watch blood pressure closely given concern of sepsis. Maintain potassium above 4.0 and magnesium above 2.0. Antibiotics as per infectious disease. Consultation Date/Type/Reason Admit Date/Time Jul 31, 2016 at 14:20 Type of Consultation: cv 24 HR Interval Summary Free Text/Dictation Patient seen and examined. No active cardiac issues currently as per nursing staff Exam/Review of Systems Vital Signs Vitals Vital Signs Date Time Temp Pulse Resp B/P Pulse Ox O2 Delivery O2 Flow Rate FiO2 08/10/16 12:23 97 08/10/16 12:12 24 94 45 08/10/16 10:54 98.4 126/73 08/09/16 13:00 Mechanical Ventilator Intake and Output 08/09/16 08/09/16 08/10/16 15:00 23:00 07:00 Intake Total 1445 ml 2675 ml Output Total 2800 ml 1600 ml Balance -1355 ml 1075 ml Exam Sleeping, no apparent distress Neck: other (C-collar and tracheostomy) Respiratory: other (Coarse breath sounds bilaterally with scattered crackles, no wheezing) Cardiovascular: other (S1-S2 heard), regular rate and rhythm Gastrointestinal: bowel sounds, non-tender, other (No guarding), soft Extremities: edema, other (No cyanosis) Results Result Diagram: 08/10/16 0545 08/10/16 0545 Results 24 hrs Laboratory Tests Test 08/09/16 18:37 08/09/16 21:00 08/10/16 00:56 08/10/16 05:03 Bedside Glucose 118 126 111 105 Test 08/10/16 05:45 08/10/16 09:14 08/10/16 12:21 Albumin 2.2 L Anion Gap 14 Basophils # 0.0 Basophils % 0.1 Blood Urea Nitrogen 54 H Calcium Level 10.0 Carbon Dioxide Level 28 Chloride Level 102 Creatinine 1.18 Eosinophils # 0.5 Eosinophils % 3.2 Free Thyroxine Index 2.14 Glucose Level 96 Hematocrit 24.4 L Hemoglobin 7.6 L Lymphocytes # 0.7 L Lymphocytes % 4.7 L Mean Corpuscular Hemoglobin 25.7 L Mean Corpuscular Hemoglobin Concent 31.1 L Mean Corpuscular Volume 82.4 Mean Platelet Volume 10.0 Monocytes # 0.7 Monocytes % 4.7 Neutrophils # 11.8 H Neutrophils % 83.6 H Nucleated Red Blood Cells # 0.0 Nucleated Red Blood Cells % 0.0 Phosphorus Level 4.1 Platelet Count 506 H Potassium Level 4.0 Red Blood Count 2.96 L Red Cell Distribution Width 16.8 H Sodium Level 140 Thyroid Stimulating Hormone (TSH) 8.220 H Thyroxine (T4) 4.4 L Triiodothyronine (T3) Uptake 48.7 H White Blood Count 14.2 H Bedside Glucose 131 132 Medications Medications Current Medications Ondansetron HCl (Zofran Inj) 4 mg Q6H PRN IV NAUSEA AND/OR VOMITING; Start at 15:00 Acetaminophen (Tylenol Tab) 650 mg Q6H PRN PO PAIN LEVEL 1-3 OR FEVER Last administered on 08/09/16 10:12; Admin Dose 650 MG; Start 07/31/16 at 15:00 Morphine Sulfate (morphine) 2 mg Q4H PRN IV SEVERE PAIN LEVEL 7-10 Last administered on 08/02/16 20:59; Admin Dose 2 MG; Start 07/31/16 at 15:00 Magnesium Hydroxide (Milk Of Mag) 30 ml DAILY PRN PO CONSTIPATION; Start at 15:00 Sodium Biphosphate/ Sodium Phosphate (Fleet Enema) 133 ml DAILY PRN [place] CONSTIPATION; Start 07/31/16 at 15:00 Famotidine (Pepcid Iv) 20 mg Q12 IV Last administered on 08/10/16 09:18; Admin Dose 20 MG; Start 07/31/16 at 21:00 Hydralazine HCl (Apresoline) 10 mg Q6H PRN IV ELEVATED BLOOD PRESSURE; Start at 15:00 Nitroglycerin (Nitroglycerin (Sl Tab) 0.4 Mg) 1 tab Q5M PRN SL ANGINA; Start at 15:00 Miscellaneous Information 1 ea NOTE XX ; Start 07/31/16 at 16:30 Glucose (Glutose) 15 gm Q15M PRN PO DECREASED GLUCOSE; Start 07/31/16 at 16:30 Glucose (Glutose) 22.5 gm Q15M PRN PO DECREASED GLUCOSE; Start 07/31/16 at 16: 30 Dextrose (D50w Syringe) 25 ml Q15M PRN IV DECREASED GLUCOSE; Start 07/31/16 at 16:30 Dextrose (D50w Syringe) 50 ml Q15M PRN IV DECREASED GLUCOSE; Start 07/31/16 at 16:30 Glucagon (Glucagen) 1 mg Q15M PRN IM DECREASED GLUCOSE; Start 07/31/16 at 16:30 Glucose (Glutose) 15 gm Q15M PRN BUCCAL DECREASED GLUCOSE; Start 07/31/16 at 16 :30 Sodium Hypochlorite (Dakin'S (1/4 Strength)) 1 applic BID IRR Last administered on 08/10/16 09:18; Admin Dose 1 APPLIC; Start 08/01/16 at 21:00 Calcium Carbonate (Ca Carbonate) 1,250 mg BID GTB Last administered on 09:16; Admin Dose 1,250 MG; Start 08/01/16 at 22:30 Acetaminophen/ Hydrocodone Bitart ([place] (5/325)) 1 tab Q4H PRN PEG MODERATE PAIN LEVEL 4-6 Last administered on 08/06/16 18:09; Admin Dose 1 TAB; Start 08/02 at 00:00 Lorazepam (Ativan) 0.5 mg Q4H PRN IV ANXIETY Last administered on 08/10/16 12: 29; Admin Dose 0.5 MG; Start 08/02/16 at 00:00 Zolpidem Tartrate (Ambien) 10 mg HS PRN PEG INSOMNIA Last administered on 00:39; Admin Dose 10 MG; Start 08/02/16 at 03:30 Fluconazole (Diflucan) 100 mg DAILY PO Last administered on 08/10/16 09:17; Admin Dose 100 MG; Start 08/02/16 at 12:30 Lactobacillus Acidoph/Bulgaricus (Floranex) 1 tab TID PO Last administered on 12:24; Admin Dose 1 TAB; Start 08/02/16 at 13:00 Ibuprofen (Motrin) 600 mg Q6H PRN PO PAIN OR TEMP ABOVE 38C; Start 08/02/16 at 15:00 Zinc Sulfate (Zinc Sulfate) 220 mg DAILY GTB Last administered on 08/10/16 09: 16; Admin Dose 220 MG; Start 08/03/16 at 11:30 Multivitamins Therapeutic (Theragran) 1 tab DAILY PO Last administered on 09:16; Admin Dose 1 TAB; Start 08/03/16 at 11:30 Ascorbic Acid (Vitamin C) 500 mg BID GTB Last administered on 08/10/16 09:17; Admin Dose 500 MG; Start 08/03/16 at 11:30 Metronidazole (Flagyl) 500 mg Q8 PO Last administered on 08/10/16 05:03; Admin Dose 500 MG; Start 08/03/16 at 12:00 Sodium Hypochlorite (Dakin'S (Dilute 1/40%)) 1 applic BID IRR Last administered on 08/10/16 09:18; Admin Dose 1 APPLIC; Start 08/04/16 at 12:00 Hydromorphone HCl (Dilaudid) 0.5 mg Q8H PRN IV PAIN Last administered on 05:08; Admin Dose 0.5 MG; Start 08/04/16 at 12:00 Linezolid (Zyvox) 600 mg BID PO Last administered on 08/10/16 09:16; Admin Dose 600 MG; Start 08/05/16 at 21:00 Docusate Sodium (Colace) 100 mg Q12H PO Last administered on 08/10/16 09:18; Admin Dose 100 MG; Start 08/08/16 at 21:00 Insulin Aspart (Novolog Insulin Pen) NOVOLOG *MODERATE* ALGORI... Q4 SC Last administered on 08/09/16 13:34; Admin Dose 4 UNIT; Start 08/08/16 at 13:00 Metformin HCl 500 mg 500 mg Q12 PO Last administered on 08/10/16 09:16; Admin Dose 500 MG; Start 08/08/16 at 21:00 Cefepime HCl 50 ml @ 100 mls/hr Q12 IVPB Last administered on 08/10/16 09:19 ; Admin Dose 100 MLS/HR; Start 08/08/16 at 16:00 Ferric Sodium Gluconate Complex 125 mg/Sodium Chloride 110 ml @ 110 mls/hr Q24H IVPB Last administered on 08/09/16 18:41; Admin Dose 110 MLS/HR; Start 08/09/16 at 16:30; Stop 08/13/16 at 17:29 Acetaminophen (Ofirmev 1000mg/ 100ml Iv) 100 ml @ 400 mls/hr Q8H IVPB Last administered on 08/10/16 09:16; Admin Dose 400 MLS/HR; Start 08/09/16 at 16:30 Furosemide 20 mg 20 mg DAILY IV Last administered on 08/10/16 09:18; Admin Dose 20 MG; Start 08/10/16 at 09:00; Stop 08/12/16 at 09:01 Colistimethate Sodium/Sodium Chloride (Coly-Mycin/NS) 100 ml @ 200 mls/hr Q12 IVPB Last administered on 08/10/16 12:24; Admin Dose 200 MLS/HR; Start at 11:30 Kb Barrett DO Aug 10, 2016 13:56
--- NOTE | 2016-08-10 14:18 | PN ---
Date/Time of Note Date/Time of Note DATE: 08/10/16 TIME: 14:08 Assessment/Plan VTE Prophylaxis VTE Prophylaxis Intervention: SCD's Lines/Catheters IV Catheter Type (from Nrs): Portacath Urinary Cath still in place: Yes Reason Cath still needed: other (indicate) Assessment/Plan Assessment/Plan 46-year-old male sent in with fever and diaphoresis with findings of sepsis with hypotension, tachycardia, likely secondary to possible decubitus ulcer worsening infection. 1. Sepsis - sec to resp infection+ UTI + decubitus ulcer infx. 2. Chronic respiratory failure,Vent dependent via trach 3. Recurrent Multifocal bronchitis/bronchiolitis/bronchopneumonia 4. Chronic Dysphagia currently on G-tube feeds. 2/2 #5 5. Chronic quadriplegia 2/2 C2 fracture + chronic neuropathy / with cervical collar still in place Per patient he was meant to have collar only for 4months 6. Multiple infected decubiti down to the bone 7. Severe hypochromic microcytic anemia likely with a component of chronic blood loss from ulcers + iron deficiency recurrent anemia : likely 2/2 to chronic microscopic blood loss 8. DM 2 with suboptimal control: stable on metformin 9. Cardiomyopathy with ejection fraction 45-50% via echo on previous admission 10. Pseudomonas / Addis UTI 11. New Hypothyroidism PLAN: * Consider transfusion * Start Levothyroxine at low dose * reduce diuresis for now / BUN creeping up * Spoke with surgery, patient is not a good candidate for elective surgery at this time. Will await cardiology clearance * Continue abx per ID / patient still spiking fevers despite aggressive abx therapy / will change Oliveira / continue aggressive fever control * Continue supportive care and all other mgt * Gastrointestinal prophylaxis. H2 pam. * Deep venous thrombosis prophylaxis. SCDs Subjective 24 Hr Interval Summary Free Text/Dictation patient is less lethargic today, back to communicating with a soft speech Exam/Review of Systems Vital Signs Vitals Vital Signs Date Time Temp Pulse Resp B/P Pulse Ox O2 Delivery O2 Flow Rate FiO2 08/10/16 12:23 97 08/10/16 12:12 24 94 45 08/10/16 10:54 98.4 126/73 08/09/16 13:00 Mechanical Ventilator Intake and Output 08/09/16 08/09/16 08/10/16 15:00 23:00 07:00 Intake Total 1445 ml 2675 ml Output Total 2800 ml 1600 ml Balance -1355 ml 1075 ml Results Result Diagram: 08/10/16 0545 08/10/16 0545 Results 24 hrs Laboratory Tests Test 08/09/16 18:37 08/09/16 21:00 08/10/16 00:56 08/10/16 05:03 Bedside Glucose 118 126 111 105 Test 08/10/16 05:45 08/10/16 09:14 08/10/16 12:21 Albumin 2.2 L Anion Gap 14 Basophils # 0.0 Basophils % 0.1 Blood Urea Nitrogen 54 H Calcium Level 10.0 Carbon Dioxide Level 28 Chloride Level 102 Creatinine 1.18 Eosinophils # 0.5 Eosinophils % 3.2 Free Thyroxine Index 2.14 Glucose Level 96 Hematocrit 24.4 L Hemoglobin 7.6 L Lymphocytes # 0.7 L Lymphocytes % 4.7 L Mean Corpuscular Hemoglobin 25.7 L Mean Corpuscular Hemoglobin Concent 31.1 L Mean Corpuscular Volume 82.4 Mean Platelet Volume 10.0 Monocytes # 0.7 Monocytes % 4.7 Neutrophils # 11.8 H Neutrophils % 83.6 H Nucleated Red Blood Cells # 0.0 Nucleated Red Blood Cells % 0.0 Phosphorus Level 4.1 Platelet Count 506 H Potassium Level 4.0 Red Blood Count 2.96 L Red Cell Distribution Width 16.8 H Sodium Level 140 Thyroid Stimulating Hormone (TSH) 8.220 H Thyroxine (T4) 4.4 L Triiodothyronine (T3) Uptake 48.7 H White Blood Count 14.2 H Bedside Glucose 131 132 Medications Medications Current Medications Ondansetron HCl (Zofran Inj) 4 mg Q6H PRN IV NAUSEA AND/OR VOMITING; Start at 15:00 Acetaminophen (Tylenol Tab) 650 mg Q6H PRN PO PAIN LEVEL 1-3 OR FEVER Last administered on 08/09/16 10:12; Admin Dose 650 MG; Start 07/31/16 at 15:00 Morphine Sulfate (morphine) 2 mg Q4H PRN IV SEVERE PAIN LEVEL 7-10 Last administered on 08/02/16 20:59; Admin Dose 2 MG; Start 07/31/16 at 15:00 Magnesium Hydroxide (Milk Of Mag) 30 ml DAILY PRN PO CONSTIPATION; Start at 15:00 Sodium Biphosphate/ Sodium Phosphate (Fleet Enema) 133 ml DAILY PRN [place] CONSTIPATION; Start 07/31/16 at 15:00 Famotidine (Pepcid Iv) 20 mg Q12 IV Last administered on 08/10/16 09:18; Admin Dose 20 MG; Start 07/31/16 at 21:00 Hydralazine HCl (Apresoline) 10 mg Q6H PRN IV ELEVATED BLOOD PRESSURE; Start at 15:00 Nitroglycerin (Nitroglycerin (Sl Tab) 0.4 Mg) 1 tab Q5M PRN SL ANGINA; Start at 15:00 Miscellaneous Information 1 ea NOTE XX ; Start 07/31/16 at 16:30 Glucose (Glutose) 15 gm Q15M PRN PO DECREASED GLUCOSE; Start 07/31/16 at 16:30 Glucose (Glutose) 22.5 gm Q15M PRN PO DECREASED GLUCOSE; Start 07/31/16 at 16: 30 Dextrose (D50w Syringe) 25 ml Q15M PRN IV DECREASED GLUCOSE; Start 07/31/16 at 16:30 Dextrose (D50w Syringe) 50 ml Q15M PRN IV DECREASED GLUCOSE; Start 07/31/16 at 16:30 Glucagon (Glucagen) 1 mg Q15M PRN IM DECREASED GLUCOSE; Start 07/31/16 at 16:30 Glucose (Glutose) 15 gm Q15M PRN BUCCAL DECREASED GLUCOSE; Start 07/31/16 at 16 :30 Sodium Hypochlorite (Dakin'S (1/4 Strength)) 1 applic BID IRR Last administered on 08/10/16 09:18; Admin Dose 1 APPLIC; Start 08/01/16 at 21:00 Calcium Carbonate (Ca Carbonate) 1,250 mg BID GTB Last administered on 09:16; Admin Dose 1,250 MG; Start 08/01/16 at 22:30 Acetaminophen/ Hydrocodone Bitart ([place] (5/325)) 1 tab Q4H PRN PEG MODERATE PAIN LEVEL 4-6 Last administered on 08/06/16 18:09; Admin Dose 1 TAB; Start 08/02 at 00:00 Lorazepam (Ativan) 0.5 mg Q4H PRN IV ANXIETY Last administered on 08/10/16 12: 29; Admin Dose 0.5 MG; Start 08/02/16 at 00:00 Zolpidem Tartrate (Ambien) 10 mg HS PRN PEG INSOMNIA Last administered on 00:39; Admin Dose 10 MG; Start 08/02/16 at 03:30 Fluconazole (Diflucan) 100 mg DAILY PO Last administered on 08/10/16 09:17; Admin Dose 100 MG; Start 08/02/16 at 12:30 Lactobacillus Acidoph/Bulgaricus (Floranex) 1 tab TID PO Last administered on 12:24; Admin Dose 1 TAB; Start 08/02/16 at 13:00 Ibuprofen (Motrin) 600 mg Q6H PRN PO PAIN OR TEMP ABOVE 38C; Start 08/02/16 at 15:00 Zinc Sulfate (Zinc Sulfate) 220 mg DAILY GTB Last administered on 08/10/16 09: 16; Admin Dose 220 MG; Start 08/03/16 at 11:30 Multivitamins Therapeutic (Theragran) 1 tab DAILY PO Last administered on 09:16; Admin Dose 1 TAB; Start 08/03/16 at 11:30 Ascorbic Acid (Vitamin C) 500 mg BID GTB Last administered on 08/10/16 09:17; Admin Dose 500 MG; Start 08/03/16 at 11:30 Metronidazole (Flagyl) 500 mg Q8 PO Last administered on 08/10/16 05:03; Admin Dose 500 MG; Start 08/03/16 at 12:00 Sodium Hypochlorite (Dakin'S (Dilute 1/40%)) 1 applic BID IRR Last administered on 08/10/16 09:18; Admin Dose 1 APPLIC; Start 08/04/16 at 12:00 Hydromorphone HCl (Dilaudid) 0.5 mg Q8H PRN IV PAIN Last administered on 05:08; Admin Dose 0.5 MG; Start 08/04/16 at 12:00 Linezolid (Zyvox) 600 mg BID PO Last administered on 08/10/16 09:16; Admin Dose 600 MG; Start 08/05/16 at 21:00 Docusate Sodium (Colace) 100 mg Q12H PO Last administered on 08/10/16 09:18; Admin Dose 100 MG; Start 08/08/16 at 21:00 Insulin Aspart (Novolog Insulin Pen) NOVOLOG *MODERATE* ALGORI... Q4 SC Last administered on 08/09/16 13:34; Admin Dose 4 UNIT; Start 08/08/16 at 13:00 Metformin HCl 500 mg 500 mg Q12 PO Last administered on 08/10/16 09:16; Admin Dose 500 MG; Start 08/08/16 at 21:00 Cefepime HCl 50 ml @ 100 mls/hr Q12 IVPB Last administered on 08/10/16 09:19 ; Admin Dose 100 MLS/HR; Start 08/08/16 at 16:00 Ferric Sodium Gluconate Complex 125 mg/Sodium Chloride 110 ml @ 110 mls/hr Q24H IVPB Last administered on 08/09/16 18:41; Admin Dose 110 MLS/HR; Start 08/09/16 at 16:30; Stop 08/13/16 at 17:29 Acetaminophen (Ofirmev 1000mg/ 100ml Iv) 100 ml @ 400 mls/hr Q8H IVPB Last administered on 08/10/16 09:16; Admin Dose 400 MLS/HR; Start 08/09/16 at 16:30 Furosemide 20 mg 20 mg DAILY IV Last administered on 08/10/16 09:18; Admin Dose 20 MG; Start 08/10/16 at 09:00; Stop 08/12/16 at 09:01 Colistimethate Sodium/Sodium Chloride (Coly-Mycin/NS) 100 ml @ 200 mls/hr Q12 IVPB Last administered on 08/10/16 12:24; Admin Dose 200 MLS/HR; Start at 11:30 ALDO BRADEN Aug 10, 2016 14:17
--- NOTE | 2016-08-10 14:21 | CONS ---
Date/Time of Note Date/Time of Note DATE: 08/10/16 TIME: 14:18 Assessment/Plan Assessment/Plan Additional Assessment/Plan Ventilator settings; AC of 24, tidal volume 500, PEEP of 5, 45% FiO2. Next Assessment recommendations; 1. Patient with chronic respiratory failure admitted for severe bilateral pneumonia as well as multiple ulcers involving sacrum as well as bilateral hip areas. 2. Slightly improved leukocytosis. 3. Quadriplegia due to C-spine injury. 4. Systolic heart failure. Continue current supportive care. Will obtain a follow-up chest x-ray tomorrow morning. Continue current antibiotic as well as antifungal coverage. CT scan chest was reviewed from a few days ago which is not exhibiting any evidence of mucus impaction therefore at this time patient will not benefit from a bronchoscopy procedure. Consultation Date/Type/Reason Admit Date/Time Jul 31, 2016 at 14:20 Initial Consult Date 08/02/16 Type of Consultation: Pulmonary 24 HR Interval Summary Free Text/Dictation Patient condition remains stable. However still requiring high FiO2 for O2 saturation maintenance. Has remained hemodynamically stable. General exam; young male, on ventilator via tracheostomy currently in no distress awake and alert. Exam/Review of Systems Vital Signs Vitals Vital Signs Date Time Temp Pulse Resp B/P Pulse Ox O2 Delivery O2 Flow Rate FiO2 08/10/16 12:23 97 08/10/16 12:12 24 94 45 08/10/16 10:54 98.4 126/73 08/09/16 13:00 Mechanical Ventilator Intake and Output 08/09/16 08/09/16 08/10/16 15:00 23:00 07:00 Intake Total 1445 ml 2675 ml Output Total 2800 ml 1600 ml Balance -1355 ml 1075 ml Exam H EENT exam is; there is a soft C-spine collar in place. Tracheostomy in place. Pupils are midsize reactive to light. No neck masses. Chest examination; diminished breath on lung bases bilaterally. S1-S2 audible, no murmurs. Regular rhythm. Abdomen examination; soft, nondistended. No organomegaly. G-tube in place. Bowel sounds audible. Extremity exam is; no peripheral edema. Back examination; patient has sacral as well as bilateral hip ulcers. TIMBER TRIMMER examination; patient stable quadriplegia. Results Result Diagram: 08/10/16 0545 08/10/16 0545 Results 24 hrs Laboratory Tests Test 08/09/16 18:37 08/09/16 21:00 08/10/16 00:56 08/10/16 05:03 Bedside Glucose 118 126 111 105 Test 08/10/16 05:45 08/10/16 09:14 08/10/16 12:21 Albumin 2.2 L Anion Gap 14 Basophils # 0.0 Basophils % 0.1 Blood Urea Nitrogen 54 H Calcium Level 10.0 Carbon Dioxide Level 28 Chloride Level 102 Creatinine 1.18 Eosinophils # 0.5 Eosinophils % 3.2 Free Thyroxine Index 2.14 Glucose Level 96 Hematocrit 24.4 L Hemoglobin 7.6 L Lymphocytes # 0.7 L Lymphocytes % 4.7 L Mean Corpuscular Hemoglobin 25.7 L Mean Corpuscular Hemoglobin Concent 31.1 L Mean Corpuscular Volume 82.4 Mean Platelet Volume 10.0 Monocytes # 0.7 Monocytes % 4.7 Neutrophils # 11.8 H Neutrophils % 83.6 H Nucleated Red Blood Cells # 0.0 Nucleated Red Blood Cells % 0.0 Phosphorus Level 4.1 Platelet Count 506 H Potassium Level 4.0 Red Blood Count 2.96 L Red Cell Distribution Width 16.8 H Sodium Level 140 Thyroid Stimulating Hormone (TSH) 8.220 H Thyroxine (T4) 4.4 L Triiodothyronine (T3) Uptake 48.7 H White Blood Count 14.2 H Bedside Glucose 131 132 Medications Medications Current Medications Ondansetron HCl (Zofran Inj) 4 mg Q6H PRN IV NAUSEA AND/OR VOMITING; Start at 15:00 Acetaminophen (Tylenol Tab) 650 mg Q6H PRN PO PAIN LEVEL 1-3 OR FEVER Last administered on 08/09/16 10:12; Admin Dose 650 MG; Start 07/31/16 at 15:00 Morphine Sulfate (morphine) 2 mg Q4H PRN IV SEVERE PAIN LEVEL 7-10 Last administered on 08/02/16 20:59; Admin Dose 2 MG; Start 07/31/16 at 15:00 Magnesium Hydroxide (Milk Of Mag) 30 ml DAILY PRN PO CONSTIPATION; Start at 15:00 Sodium Biphosphate/ Sodium Phosphate (Fleet Enema) 133 ml DAILY PRN [place] CONSTIPATION; Start 07/31/16 at 15:00 Famotidine (Pepcid Iv) 20 mg Q12 IV Last administered on 08/10/16 09:18; Admin Dose 20 MG; Start 07/31/16 at 21:00 Hydralazine HCl (Apresoline) 10 mg Q6H PRN IV ELEVATED BLOOD PRESSURE; Start at 15:00 Nitroglycerin (Nitroglycerin (Sl Tab) 0.4 Mg) 1 tab Q5M PRN SL ANGINA; Start at 15:00 Miscellaneous Information 1 ea NOTE XX ; Start 07/31/16 at 16:30 Glucose (Glutose) 15 gm Q15M PRN PO DECREASED GLUCOSE; Start 07/31/16 at 16:30 Glucose (Glutose) 22.5 gm Q15M PRN PO DECREASED GLUCOSE; Start 07/31/16 at 16: 30 Dextrose (D50w Syringe) 25 ml Q15M PRN IV DECREASED GLUCOSE; Start 07/31/16 at 16:30 Dextrose (D50w Syringe) 50 ml Q15M PRN IV DECREASED GLUCOSE; Start 07/31/16 at 16:30 Glucagon (Glucagen) 1 mg Q15M PRN IM DECREASED GLUCOSE; Start 07/31/16 at 16:30 Glucose (Glutose) 15 gm Q15M PRN BUCCAL DECREASED GLUCOSE; Start 07/31/16 at 16 :30 Sodium Hypochlorite (Dakin'S (1/4 Strength)) 1 applic BID IRR Last administered on 08/10/16 09:18; Admin Dose 1 APPLIC; Start 08/01/16 at 21:00 Calcium Carbonate (Ca Carbonate) 1,250 mg BID GTB Last administered on 09:16; Admin Dose 1,250 MG; Start 08/01/16 at 22:30 Acetaminophen/ Hydrocodone Bitart ([place] (5/325)) 1 tab Q4H PRN PEG MODERATE PAIN LEVEL 4-6 Last administered on 08/06/16 18:09; Admin Dose 1 TAB; Start 08/02 at 00:00 Lorazepam (Ativan) 0.5 mg Q4H PRN IV ANXIETY Last administered on 08/10/16 12: 29; Admin Dose 0.5 MG; Start 08/02/16 at 00:00 Zolpidem Tartrate (Ambien) 10 mg HS PRN PEG INSOMNIA Last administered on 00:39; Admin Dose 10 MG; Start 08/02/16 at 03:30 Fluconazole (Diflucan) 100 mg DAILY PO Last administered on 08/10/16 09:17; Admin Dose 100 MG; Start 08/02/16 at 12:30 Lactobacillus Acidoph/Bulgaricus (Floranex) 1 tab TID PO Last administered on 12:24; Admin Dose 1 TAB; Start 08/02/16 at 13:00 Ibuprofen (Motrin) 600 mg Q6H PRN PO PAIN OR TEMP ABOVE 38C; Start 08/02/16 at 15:00 Zinc Sulfate (Zinc Sulfate) 220 mg DAILY GTB Last administered on 08/10/16 09: 16; Admin Dose 220 MG; Start 08/03/16 at 11:30 Multivitamins Therapeutic (Theragran) 1 tab DAILY PO Last administered on 09:16; Admin Dose 1 TAB; Start 08/03/16 at 11:30 Ascorbic Acid (Vitamin C) 500 mg BID GTB Last administered on 08/10/16 09:17; Admin Dose 500 MG; Start 08/03/16 at 11:30 Metronidazole (Flagyl) 500 mg Q8 PO Last administered on 08/10/16 05:03; Admin Dose 500 MG; Start 08/03/16 at 12:00 Sodium Hypochlorite (Dakin'S (Dilute 1/40%)) 1 applic BID IRR Last administered on 08/10/16 09:18; Admin Dose 1 APPLIC; Start 08/04/16 at 12:00 Hydromorphone HCl (Dilaudid) 0.5 mg Q8H PRN IV PAIN Last administered on 05:08; Admin Dose 0.5 MG; Start 08/04/16 at 12:00 Linezolid (Zyvox) 600 mg BID PO Last administered on 08/10/16 09:16; Admin Dose 600 MG; Start 08/05/16 at 21:00 Docusate Sodium (Colace) 100 mg Q12H PO Last administered on 08/10/16 09:18; Admin Dose 100 MG; Start 08/08/16 at 21:00 Insulin Aspart (Novolog Insulin Pen) NOVOLOG *MODERATE* ALGORI... Q4 SC Last administered on 08/09/16 13:34; Admin Dose 4 UNIT; Start 08/08/16 at 13:00 Metformin HCl 500 mg 500 mg Q12 PO Last administered on 08/10/16 09:16; Admin Dose 500 MG; Start 08/08/16 at 21:00 Cefepime HCl 50 ml @ 100 mls/hr Q12 IVPB Last administered on 08/10/16 09:19 ; Admin Dose 100 MLS/HR; Start 08/08/16 at 16:00 Ferric Sodium Gluconate Complex 125 mg/Sodium Chloride 110 ml @ 110 mls/hr Q24H IVPB Last administered on 08/09/16 18:41; Admin Dose 110 MLS/HR; Start 08/09/16 at 16:30; Stop 08/13/16 at 17:29 Acetaminophen (Ofirmev 1000mg/ 100ml Iv) 100 ml @ 400 mls/hr Q8H IVPB Last administered on 08/10/16 09:16; Admin Dose 400 MLS/HR; Start 08/09/16 at 16:30; Stop 08/10/16 at 16:29 Furosemide 20 mg 20 mg DAILY IV Last administered on 08/10/16 09:18; Admin Dose 20 MG; Start 08/10/16 at 09:00; Stop 08/12/16 at 09:01 Colistimethate Sodium/Sodium Chloride (Coly-Mycin/NS) 100 ml @ 200 mls/hr Q12 IVPB Last administered on 08/10/16 12:24; Admin Dose 200 MLS/HR; Start at 11:30 ALISSON ARRIOLA 10, 2017 14:21
[2016-08-10] MEDS: SOD FERRIC GLUC COMPLX 125 MG in SOD CHLORIDE 0.9% 100 ML IVPB SCH (17:11)
[2016-08-10] MEDS: ZOLPIDEM 5 MG TAB PEG PRN (23:20)
[2016-08-10] MEDS: ACETAMINOPHEN 325 MG TAB PO PRN (23:20)
[2016-08-11] VITALS (22 sets, daily range): BP systolic 85–120; BP diastolic 50–70; PULSE 95–122; RESP 18–26
[2016-08-11] MEDS: INSULIN ASPART [NOVOLOG] 3 ML PEN SC SCH ×6 (00:33→21:00)
[2016-08-11] MEDS: IBUPROFEN 600 MG TAB PO PRN ×2 (02:24→21:29)
[2016-08-11] MEDS: ALBUTEROL/IPRATROPIUM (NEB) 3 ML AMP HHN PRN ×2 (02:27→19:51)
[2016-08-11] MEDS: LEVOTHYROXINE 25 MCG TAB PO SCH (05:32)
[2016-08-11] MEDS: metroNIDAZOLE 500 MG TAB PO SCH ×3 (05:33→21:29)
[2016-08-11] MEDS: LORAZEPAM 2 MG INJ IV PRN (05:34)
[2016-08-11 06:24] LABS: ABNORMAL IP MESSAGE 1; ADD SCAN DIFF NO; BASOPHILS % 0.2 % (0.0-2.0); EOSINOPHILS # 0.4 10^3/ul (0.0-0.5); EOSINOPHILS % 2.9 % (0.0-7.0); HEMATOCRIT 24.2 % (42.0-52.0); HEMOGLOBIN 7.5 g/dl (14.0-18.0); LYMPHOCYTES # 0.7 10^3/ul (0.8-2.9); LYMPHOCYTES % 5.2 % (15.0-51.0); MEAN CORPUSCULAR HEMOGLOBIN 25.5 pg (29.0-33.0); MEAN CORPUSCULAR VOLUME 82.3 fl (82.0-101.0); MEAN PLATELET VOLUME 9.6 fl (7.4-10.4); MONOCYTE # 0.8 10^3/ul (0.3-0.9); MONOCYTES % 5.4 % (0.0-11.0); NEUTROPHIL # 11.5 10^3/ul (1.6-7.5); NEUTROPHILS % 80.8 % (39.0-77.0); PLATELET COUNT 498 10^3/UL (140-415); RED BLOOD COUNT 2.94 10^6/ul (4.70-6.10); WHITE BLOOD COUNT 14.3 10^3/ul (4.8-10.8)
[2016-08-11 06:42] LABS: ALBUMIN 2.4 g/dl (3.3-4.9); POTASSIUM 4.2 mmol/L (3.5-5.1)
[2016-08-11 06:44] LABS: CREATININE 1.26 mg/dl (0.61-1.24)
[2016-08-11 06:45] LABS: CALCIUM 10.5 mg/dl (8.4-10.2); PHOSPHORUS 3.5 mg/dl (2.5-4.9)
[2016-08-11] MEDS: FUROSEMIDE 20 MG INJ IV SCH (09:00)
[2016-08-11] MEDS: SODIUM HYPOCHLORITE 0.125% 473 ML BTL IRR SCH ×2 (09:00→22:42)
--- NOTE | 2016-08-11 09:01 | RADRPT ---
PROCEDURE: XR Chest. CLINICAL INDICATION: Shortness of breath. TECHNIQUE: Single frontal view. COMPARISON: 08/08/2016 FINDINGS: The tracheostomy tube and implanted port left internal jugular vein catheter remain in satisfactory position. Air space disease at the lung bases and bilateral pleural effusions are unchanged. The heart size is normal. There is no pneumothorax. IMPRESSION: 1. No change from 08/08/2016. RPTAT: QQ .Bryce Lee MD, MD Date Time Electronically viewed and signed by .Bryce Lee MD, MD on 08/11/2016 09:01 .R/
[2016-08-11] MEDS: ZINC SULFATE 220 MG CAP GTB SCH (09:21)
[2016-08-11] MEDS: ZYVOX 600 MG TAB PO SCH ×2 (09:21→21:29)
[2016-08-11] MEDS: CA CARBONATE (250 MG/ML) 5ML CUP GTB SCH ×2 (09:21→21:29)
[2016-08-11] MEDS: ASCORBIC ACID 500 MG TAB GTB SCH ×2 (09:21→21:29)
[2016-08-11] MEDS: COLISTIMETHATE 135 MG in SOD CHLORIDE 0.9% 100 ML IVPB SCH ×2 (09:21→21:30)
[2016-08-11] MEDS: LACTOBACILLUS CHEW TAB PO SCH ×3 (09:21→21:29)
[2016-08-11] MEDS: metFORMIN 500 MG TAB PO SCH ×2 (09:21→21:29)
[2016-08-11] MEDS: CEFEPIME 1GM/50 ML (PMX) 50 ML IVPB SCH ×2 (09:21→21:27)
[2016-08-11] MEDS: FAMOTIDINE 20 MG INJ IV SCH ×2 (09:21→21:29)
[2016-08-11] MEDS: MULTIVITAMINS THERAPEUTIC TAB PO SCH (09:21)
[2016-08-11] MEDS: FLUCONAZOLE 100 MG TAB PO SCH (09:21)
--- NOTE | 2016-08-11 09:27 | CONS ---
Date/Time of Note Date/Time of Note DATE: 08/11/16 TIME: 09:27 Assessment/Plan Assessment/Plan Chief Complaint/Hosp Course ID PROGRESS NOTE TOTAL ABX DAY => Zyvox #7, Colistin IV, Cefepime, Diflucan, Flagyl 24H INTERVAL SUMMARY * A/A/O - responsive w/C-spine collar, trach * Per nursing notes he declines wound care at times, has multiple visitors * Low grade temps on off -- s/p Fever >48 H s PHYSICAL EXAMINATION: GENERAL: 46 yo M HEENT/Neck: Trach C-Spine collar NCHEST: Equal chest rise bilaterally, without dyspnea on observation HEART: Pulse RRR ABDOMEN: Soft EXTREMITIES: Warm SKIN: See hard chart skin assessment: multiple STG IV Decubs ID ASSESSMENT: 46 yo M w/C-spine injury w/paraplegia->s/p spinal surgery admit with: 1. Sepsis on admission w/ fever, hypotension and tachycardia => multifactorial * BCx (-) to date 2. HCAP broncho-PNA * CT: Scattered bronchial wall thickening, centrilobular nodules, tree in bud nodularity, and bronchocentric consolidation consistent with multifocal bronchitis/bronchiolitis/bronchopneumonia. Areas of bronchocentric scarring is also seen throughout the lungs suggestive of chronic recurrent infections. 3. Neurogenic bladder w/indwelling FC 4. Recurrent UTI's = CRI 5. Multiple infx decubs: Buttock/Back x 4 = STG IV / bilateral heels WOUND CULTURE Final Organism 1 KLEB PNEUMONIAE CARBAPENEMASE QUANTITY 3+ . MULTI DRUG RESISTANT ORGANISM Organism 2 ACINETOBACTER BAUMANNII QUANTITY 2+ Organism 3 VANCO RESISTANT ENTEROCOCCUS QUANTITY ISOLATED FROM BROTH ONLY . MULTI DRUG RESISTANT ORGANISM Organism 4 PROTEUS MIRABILIS QUANTITY SCANT GROWTH 6. Diarrhea = TF + ABX associated (-)MRSA Nares INVASIVES: Trach/Peg/FC/PICC/C-spine hardware ABX ALLERGY: KNDA CURRENT ABX: => Zyvox #7, Colistin IV, Cefepime, Diflucan, Flagyl ID RECOMMENDATIONS: 1. Needs diverting colostomy - too unstable for surgery at this time 2. Per notes: Not a good candidate for wound debride due to concern would lead to chronic non-healing wound 3. Check stool C.Diff 4. Consider 3-phase bone scan/gallium scan check C-spine surgical post op site and sacral for possibility of OM d/w Dr. Albarran . Problems: Consultation Date/Type/Reason Admit Date/Time Jul 31, 2016 at 14:20 Initial Consult Date 08/02/16 Type of Consultation: ID Exam/Review of Systems Vital Signs Vitals Vital Signs Date Time Temp Pulse Resp B/P Pulse Ox O2 Delivery O2 Flow Rate FiO2 08/11/16 09:20 122 94/55 08/11/16 07:47 99.1 18 97 08/11/16 07:30 45 08/09/16 13:00 Mechanical Ventilator Intake and Output 08/10/16 08/10/16 08/11/16 15:00 23:00 07:00 Intake Total 1370 ml 1210 ml Output Total 2700 ml 2000 ml Balance -1330 ml -790 ml Results Result Diagram: 08/11/16 0605 08/11/16 0610 Results 24 hrs Laboratory Tests Test 08/10/16 12:21 08/10/16 17:10 08/10/16 21:34 08/11/16 00:31 Bedside Glucose 132 124 127 98 Test 08/11/16 05:31 08/11/16 06:05 08/11/16 06:10 Bedside Glucose 133 Basophils # 0.0 Basophils % 0.2 Eosinophils # 0.4 Eosinophils % 2.9 Hematocrit 24.2 L Hemoglobin 7.5 L Lymphocytes # 0.7 L Lymphocytes % 5.2 L Mean Corpuscular Hemoglobin 25.5 L Mean Corpuscular Hemoglobin Concent 31.0 L Mean Corpuscular Volume 82.3 Mean Platelet Volume 9.6 Monocytes # 0.8 Monocytes % 5.4 Neutrophils # 11.5 H Neutrophils % 80.8 H Nucleated Red Blood Cells # 0.0 Nucleated Red Blood Cells % 0.0 Platelet Count 498 H Red Blood Count 2.94 L Red Cell Distribution Width 17.0 H White Blood Count 14.3 H Albumin 2.4 L Anion Gap 18 H Blood Urea Nitrogen 57 H Calcium Level 10.5 H Carbon Dioxide Level 26 Chloride Level 101 Creatinine 1.26 H Glucose Level 114 Magnesium Level 1.7 Phosphorus Level 3.5 Potassium Level 4.2 Sodium Level 141 Medications Medications Current Medications Ondansetron HCl (Zofran Inj) 4 mg Q6H PRN IV NAUSEA AND/OR VOMITING; Start at 15:00 Acetaminophen (Tylenol Tab) 650 mg Q6H PRN PO PAIN LEVEL 1-3 OR FEVER Last administered on 08/10/16 23:20; Admin Dose 650 MG; Start 07/31/16 at 15:00 Morphine Sulfate (morphine) 2 mg Q4H PRN IV SEVERE PAIN LEVEL 7-10 Last administered on 08/02/16 20:59; Admin Dose 2 MG; Start 07/31/16 at 15:00 Magnesium Hydroxide (Milk Of Mag) 30 ml DAILY PRN PO CONSTIPATION; Start at 15:00 Sodium Biphosphate/ Sodium Phosphate (Fleet Enema) 133 ml DAILY PRN [place] CONSTIPATION; Start 07/31/16 at 15:00 Famotidine (Pepcid Iv) 20 mg Q12 IV Last administered on 08/11/16 09:21; Admin Dose 20 MG; Start 07/31/16 at 21:00 Hydralazine HCl (Apresoline) 10 mg Q6H PRN IV ELEVATED BLOOD PRESSURE; Start at 15:00 Nitroglycerin (Nitroglycerin (Sl Tab) 0.4 Mg) 1 tab Q5M PRN SL ANGINA; Start at 15:00 Miscellaneous Information 1 ea NOTE XX ; Start 07/31/16 at 16:30 Glucose (Glutose) 15 gm Q15M PRN PO DECREASED GLUCOSE; Start 07/31/16 at 16:30 Glucose (Glutose) 22.5 gm Q15M PRN PO DECREASED GLUCOSE; Start 07/31/16 at 16: 30 Dextrose (D50w Syringe) 25 ml Q15M PRN IV DECREASED GLUCOSE; Start 07/31/16 at 16:30 Dextrose (D50w Syringe) 50 ml Q15M PRN IV DECREASED GLUCOSE; Start 07/31/16 at 16:30 Glucagon (Glucagen) 1 mg Q15M PRN IM DECREASED GLUCOSE; Start 07/31/16 at 16:30 Glucose (Glutose) 15 gm Q15M PRN BUCCAL DECREASED GLUCOSE; Start 07/31/16 at 16 :30 Sodium Hypochlorite (Dakin'S (1/4 Strength)) 1 applic BID IRR Last administered on 08/10/16 21:32; Admin Dose 1 APPLIC; Start 08/01/16 at 21:00 Calcium Carbonate (Ca Carbonate) 1,250 mg BID GTB Last administered on 09:21; Admin Dose 1,250 MG; Start 08/01/16 at 22:30 Acetaminophen/ Hydrocodone Bitart ([place] (5/325)) 1 tab Q4H PRN PEG MODERATE PAIN LEVEL 4-6 Last administered on 08/06/16 18:09; Admin Dose 1 TAB; Start 08/02 at 00:00 Lorazepam (Ativan) 0.5 mg Q4H PRN IV ANXIETY Last administered on 08/11/16 05: 34; Admin Dose 0.5 MG; Start 08/02/16 at 00:00 Zolpidem Tartrate (Ambien) 10 mg HS PRN PEG INSOMNIA Last administered on 23:20; Admin Dose 10 MG; Start 08/02/16 at 03:30 Fluconazole (Diflucan) 100 mg DAILY PO Last administered on 08/11/16 09:21; Admin Dose 100 MG; Start 08/02/16 at 12:30 Lactobacillus Acidoph/Bulgaricus (Floranex) 1 tab TID PO Last administered on 09:21; Admin Dose 1 TAB; Start 08/02/16 at 13:00 Ibuprofen (Motrin) 600 mg Q6H PRN PO PAIN OR TEMP ABOVE 38C Last administered on 08/11/16 02:24; Admin Dose 600 MG; Start 08/02/16 at 15:00 Zinc Sulfate (Zinc Sulfate) 220 mg DAILY GTB Last administered on 08/11/16 09: 21; Admin Dose 220 MG; Start 08/03/16 at 11:30 Multivitamins Therapeutic (Theragran) 1 tab DAILY PO Last administered on 09:21; Admin Dose 1 TAB; Start 08/03/16 at 11:30 Ascorbic Acid (Vitamin C) 500 mg BID GTB Last administered on 08/11/16 09:21; Admin Dose 500 MG; Start 08/03/16 at 11:30 Metronidazole (Flagyl) 500 mg Q8 PO Last administered on 08/11/16 05:33; Admin Dose 500 MG; Start 08/03/16 at 12:00 Sodium Hypochlorite (Dakin'S (Dilute 1/40%)) 1 applic BID IRR Last administered on 08/10/16 21:53; Admin Dose 1 APPLIC; Start 08/04/16 at 12:00 Hydromorphone HCl (Dilaudid) 0.5 mg Q8H PRN IV PAIN Last administered on 22:43; Admin Dose 0.5 MG; Start 08/04/16 at 12:00 Linezolid (Zyvox) 600 mg BID PO Last administered on 08/11/16 09:21; Admin Dose 600 MG; Start 08/05/16 at 21:00 Docusate Sodium (Colace) 100 mg Q12H PO Last administered on 08/10/16 21:29; Admin Dose 100 MG; Start 08/08/16 at 21:00 Insulin Aspart (Novolog Insulin Pen) NOVOLOG *MODERATE* ALGORI... Q4 SC Last administered on 08/09/16 13:34; Admin Dose 4 UNIT; Start 08/08/16 at 13:00 Metformin HCl 500 mg 500 mg Q12 PO Last administered on 08/11/16 09:21; Admin Dose 500 MG; Start 08/08/16 at 21:00 Cefepime HCl 50 ml @ 100 mls/hr Q12 IVPB Last administered on 08/11/16 09:21 ; Admin Dose 100 MLS/HR; Start 08/08/16 at 16:00 Ferric Sodium Gluconate Complex 125 mg/Sodium Chloride 110 ml @ 110 mls/hr Q24H IVPB Last administered on 08/10/16 17:11; Admin Dose 110 MLS/HR; Start at 16:30; Stop 08/13/16 at 17:29 Colistimethate Sodium/Sodium Chloride (Coly-Mycin/NS) 100 ml @ 200 mls/hr Q12 IVPB Last administered on 08/11/16 09:21; Admin Dose 200 MLS/HR; Start at 11:30 Levothyroxine Sodium (Synthroid) 25 mcg DAILY@06 PO Last administered on 05:32; Admin Dose 25 MCG; Start 08/11/16 at 06:00 ELOY PELAEZ NP Aug 11, 2016 09:27
[2016-08-11] MEDS: SODIUM HYPOCHLORITE 1/40% 1L IRRIG IRR SCH ×2 (09:34→22:42)
[2016-08-11] MEDS: DOCUSATE SODIUM 10 MG/ML (10ML CUP) GTB SCH ×2 (10:35→21:29)
--- NOTE | 2016-08-11 13:00 | CONS ---
Date/Time of Note Date/Time of Note DATE: 08/11/16 TIME: 12:55 Assessment/Plan Assessment/Plan Additional Assessment/Plan Ventilator settings; AC of 24, tidal volume of 500, PEEP of 5, 45% FiO2. Chest x-ray was reviewed from today which is showing improved aeration in lower lobes bilaterally. Next Assessment recommendations; 1. Patient admitted for severe bilateral pneumonia with very slow radiological improvement. 2. Multiple sacral as well as upper thigh decubitus ulcers. 3. Quadriplegia, due to C-spine injury, patient remains ventilator dependent. 4. Anemia. 5. Systolic heart failure. Continue current supportive care. Continue current antibiotics. The patient may have small amounts of ice chips to keep his mouth wet. The patient apparently has been doing that at the prior nursing facility without any discomfort. Consultation Date/Type/Reason Admit Date/Time Jul 31, 2016 at 14:20 Initial Consult Date 08/02/16 Type of Consultation: Pulmonary 24 HR Interval Summary Free Text/Dictation Patient condition stable. Remains completely awake alert. Has remained hemodynamically stable. Patient denies any dysphagia. Any shortness of breath. General exam; young male, on ventilator via tracheostomy awake and alert. Has stable quadriplegia. Exam/Review of Systems Vital Signs Vitals Vital Signs Date Time Temp Pulse Resp B/P Pulse Ox O2 Delivery O2 Flow Rate FiO2 08/11/16 11:35 54 24 99 45 08/11/16 11:11 99.5 116/70 08/09/16 13:00 Mechanical Ventilator Intake and Output 08/10/16 08/10/16 08/11/16 15:00 23:00 07:00 Intake Total 1370 ml 1210 ml Output Total 2700 ml 2000 ml Balance -1330 ml -790 ml Exam H EENT examination; neck has a soft C-spine collar in place, no JVD. No lymphadenopathy. Midline trachea. Tracheostomy in place. It was a equal and reactive to light. Pharynx is clear. Patient has good dentition. Chest examination; upper lobes are clear to auscultation bilaterally with improved breath sounds in lower lobes bilaterally. S1-S2 audible, no murmurs. Regular rhythm. Abdomen examination; soft, nondistended. G-tube in place. Bowel sounds audible. Back examination reveals multiple sacral ulcers as well as ulcers involving upper thighs. 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 Results Result Diagram: 08/11/16 0605 08/11/16 0610 Results 24 hrs Laboratory Tests Test 08/10/16 17:10 08/10/16 21:34 08/11/16 00:31 08/11/16 05:31 Bedside Glucose 124 127 98 133 Test 08/11/16 06:05 08/11/16 06:10 08/11/16 09:31 Basophils # 0.0 Basophils % 0.2 Eosinophils # 0.4 Eosinophils % 2.9 Hematocrit 24.2 L Hemoglobin 7.5 L Lymphocytes # 0.7 L Lymphocytes % 5.2 L Mean Corpuscular Hemoglobin 25.5 L Mean Corpuscular Hemoglobin Concent 31.0 L Mean Corpuscular Volume 82.3 Mean Platelet Volume 9.6 Monocytes # 0.8 Monocytes % 5.4 Neutrophils # 11.5 H Neutrophils % 80.8 H Nucleated Red Blood Cells # 0.0 Nucleated Red Blood Cells % 0.0 Platelet Count 498 H Red Blood Count 2.94 L Red Cell Distribution Width 17.0 H White Blood Count 14.3 H Albumin 2.4 L Anion Gap 18 H Blood Urea Nitrogen 57 H Calcium Level 10.5 H Carbon Dioxide Level 26 Chloride Level 101 Creatinine 1.26 H Glucose Level 114 Magnesium Level 1.7 Phosphorus Level 3.5 Potassium Level 4.2 Sodium Level 141 Bedside Glucose 130 Medications Medications Current Medications Ondansetron HCl (Zofran Inj) 4 mg Q6H PRN IV NAUSEA AND/OR VOMITING; Start at 15:00 Acetaminophen (Tylenol Tab) 650 mg Q6H PRN PO PAIN LEVEL 1-3 OR FEVER Last administered on 08/10/16 23:20; Admin Dose 650 MG; Start 07/31/16 at 15:00 Morphine Sulfate (morphine) 2 mg Q4H PRN IV SEVERE PAIN LEVEL 7-10 Last administered on 08/02/16 20:59; Admin Dose 2 MG; Start 07/31/16 at 15:00 Magnesium Hydroxide (Milk Of Mag) 30 ml DAILY PRN PO CONSTIPATION; Start at 15:00 Sodium Biphosphate/ Sodium Phosphate (Fleet Enema) 133 ml DAILY PRN [place] CONSTIPATION; Start 07/31/16 at 15:00 Famotidine (Pepcid Iv) 20 mg Q12 IV Last administered on 08/11/16 09:21; Admin Dose 20 MG; Start 07/31/16 at 21:00 Hydralazine HCl (Apresoline) 10 mg Q6H PRN IV ELEVATED BLOOD PRESSURE; Start at 15:00 Nitroglycerin (Nitroglycerin (Sl Tab) 0.4 Mg) 1 tab Q5M PRN SL ANGINA; Start at 15:00 Miscellaneous Information 1 ea NOTE XX ; Start 07/31/16 at 16:30 Glucose (Glutose) 15 gm Q15M PRN PO DECREASED GLUCOSE; Start 07/31/16 at 16:30 Glucose (Glutose) 22.5 gm Q15M PRN PO DECREASED GLUCOSE; Start 07/31/16 at 16: 30 Dextrose (D50w Syringe) 25 ml Q15M PRN IV DECREASED GLUCOSE; Start 07/31/16 at 16:30 Dextrose (D50w Syringe) 50 ml Q15M PRN IV DECREASED GLUCOSE; Start 07/31/16 at 16:30 Glucagon (Glucagen) 1 mg Q15M PRN IM DECREASED GLUCOSE; Start 07/31/16 at 16:30 Glucose (Glutose) 15 gm Q15M PRN BUCCAL DECREASED GLUCOSE; Start 07/31/16 at 16 :30 Sodium Hypochlorite (Dakin'S (1/4 Strength)) 1 applic BID IRR Last administered on 08/10/16 21:32; Admin Dose 1 APPLIC; Start 08/01/16 at 21:00 Calcium Carbonate (Ca Carbonate) 1,250 mg BID GTB Last administered on 09:21; Admin Dose 1,250 MG; Start 08/01/16 at 22:30 Acetaminophen/ Hydrocodone Bitart ([place] (5/325)) 1 tab Q4H PRN PEG MODERATE PAIN LEVEL 4-6 Last administered on 08/06/16 18:09; Admin Dose 1 TAB; Start 08/02 at 00:00 Lorazepam (Ativan) 0.5 mg Q4H PRN IV ANXIETY Last administered on 08/11/16 05: 34; Admin Dose 0.5 MG; Start 08/02/16 at 00:00 Zolpidem Tartrate (Ambien) 10 mg HS PRN PEG INSOMNIA Last administered on 23:20; Admin Dose 10 MG; Start 08/02/16 at 03:30 Fluconazole (Diflucan) 100 mg DAILY PO Last administered on 08/11/16 09:21; Admin Dose 100 MG; Start 08/02/16 at 12:30 Lactobacillus Acidoph/Bulgaricus (Floranex) 1 tab TID PO Last administered on 09:21; Admin Dose 1 TAB; Start 08/02/16 at 13:00 Ibuprofen (Motrin) 600 mg Q6H PRN PO PAIN OR TEMP ABOVE 38C Last administered on 08/11/16 02:24; Admin Dose 600 MG; Start 08/02/16 at 15:00 Zinc Sulfate (Zinc Sulfate) 220 mg DAILY GTB Last administered on 08/11/16 09: 21; Admin Dose 220 MG; Start 08/03/16 at 11:30 Multivitamins Therapeutic (Theragran) 1 tab DAILY PO Last administered on 09:21; Admin Dose 1 TAB; Start 08/03/16 at 11:30 Ascorbic Acid (Vitamin C) 500 mg BID GTB Last administered on 08/11/16 09:21; Admin Dose 500 MG; Start 08/03/16 at 11:30 Metronidazole (Flagyl) 500 mg Q8 PO Last administered on 08/11/16 05:33; Admin Dose 500 MG; Start 08/03/16 at 12:00 Sodium Hypochlorite (Dakin'S (Dilute 1/40%)) 1 applic BID IRR Last administered on 08/11/16 09:34; Admin Dose 1 APPLIC; Start 08/04/16 at 12:00 Hydromorphone HCl (Dilaudid) 0.5 mg Q8H PRN IV PAIN Last administered on 22:43; Admin Dose 0.5 MG; Start 08/04/16 at 12:00 Linezolid (Zyvox) 600 mg BID PO Last administered on 08/11/16 09:21; Admin Dose 600 MG; Start 08/05/16 at 21:00 Insulin Aspart (Novolog Insulin Pen) NOVOLOG *MODERATE* ALGORI... Q4 SC Last administered on 08/09/16 13:34; Admin Dose 4 UNIT; Start 08/08/16 at 13:00 Metformin HCl 500 mg 500 mg Q12 PO Last administered on 08/11/16 09:21; Admin Dose 500 MG; Start 08/08/16 at 21:00 Cefepime HCl 50 ml @ 100 mls/hr Q12 IVPB Last administered on 08/11/16 09:21 ; Admin Dose 100 MLS/HR; Start 08/08/16 at 16:00 Ferric Sodium Gluconate Complex 125 mg/Sodium Chloride 110 ml @ 110 mls/hr Q24H IVPB Last administered on 08/10/16 17:11; Admin Dose 110 MLS/HR; Start at 16:30; Stop 08/13/16 at 17:29 Colistimethate Sodium/Sodium Chloride (Coly-Mycin/NS) 100 ml @ 200 mls/hr Q12 IVPB Last administered on 08/11/16 09:21; Admin Dose 200 MLS/HR; Start at 11:30 Levothyroxine Sodium (Synthroid) 25 mcg DAILY@06 PO Last administered on 05:32; Admin Dose 25 MCG; Start 08/11/16 at 06:00 Docusate Sodium (Colace Liquid Cup) 100 mg Q12 GTB Last administered on 10:35; Admin Dose 100 MG; Start 08/11/16 at 10:30 ALISSON ARRIOLA Aug 11, 2016 13:00
[2016-08-11] MEDS: SOD FERRIC GLUC COMPLX 125 MG in SOD CHLORIDE 0.9% 100 ML IVPB SCH (17:34)
--- NOTE | 2016-08-11 18:35 | PN ---
Date/Time of Note Date/Time of Note DATE: 08/11/16 TIME: 18:22 Assessment/Plan VTE Prophylaxis VTE Prophylaxis Intervention: SCD's Lines/Catheters IV Catheter Type (from Nrs): portacath Urinary Cath still in place: Yes Reason Cath still needed: other (indicate) Assessment/Plan Assessment/Plan 46-year-old male sent in with fever and diaphoresis with findings of sepsis with hypotension, tachycardia, likely secondary to possible decubitus ulcer worsening infection. 1. Sepsis - sec to resp infection+ UTI + decubitus ulcer infx. 2. Chronic respiratory failure,Vent dependent via trach 3. Recurrent Multifocal bronchitis/bronchiolitis/bronchopneumonia 4. Chronic Dysphagia currently on G-tube feeds. 2/2 #5 5. Chronic quadriplegia 2/2 C2 fracture + chronic neuropathy / with cervical collar still in place Per patient he was meant to have collar only for 4months 6. Multiple infected decubiti down to the bone 7. Severe hypochromic microcytic anemia likely with a component of chronic blood loss from ulcers + iron deficiency recurrent anemia : likely 2/2 to chronic microscopic blood loss 8. DM 2 with suboptimal control: stable on metformin 9. Cardiomyopathy with ejection fraction 45-50% via echo on previous admission 10. Pseudomonas / Addis UTI 11. New Hypothyroidism PLAN: * Transfuse 1 unit of PRBC * Patient had C-spine surgery which could be potential source of infection as well and there's the question of if he still needs the brace * spoke with neurosurgery, will obtain C-spine CT * Spoke with surgery, patient is not a good candidate for elective surgery ( diverting colostomy) at this time. Will await cardiology clearance * Continue abx per ID / patient still spiking fevers despite aggressive abx therapy * Continue supportive care and all other mgt * Gastrointestinal prophylaxis. H2 pam. * Deep venous thrombosis prophylaxis. SCDs Subjective 24 Hr Interval Summary Free Text/Dictation Patient seen and examined. back to spiking fevers again wants to know when his collar would be taken out Exam/Review of Systems Vital Signs Vitals Vital Signs Date Time Temp Pulse Resp B/P Pulse Ox O2 Delivery O2 Flow Rate FiO2 08/11/16 17:20 99 24 99 40 08/11/16 16:17 98.2 120/70 08/09/16 13:00 Mechanical Ventilator Intake and Output 08/10/16 08/10/1608/11/17 15:00 23:00 07:00 Intake Total 1370 ml 1210 ml Output Total 2700 ml 2000 ml Balance -1330 ml -790 ml Exam Constitutional: frail, other (very lethargic, acutely ill, ), No alert, No oriented ENMT: other (trach to vent) Respiratory: diminished breath sounds, No wheezing Cardiovascular: nl pulses, No regular rate and rhythm Gastrointestinal: bowel sounds, soft Musculoskeletal: muscle weakness, No muscle tone, No nl extremities to inspection Extremities: edema, Neurological: lethargic, other (quadriplegic) Results Result Diagram: 08/11/16 0605 08/11/16 0610 Results 24 hrs Laboratory Tests Test 08/10/16 21:34 08/11/16 00:31 08/11/16 05:31 08/11/16 06:05 Bedside Glucose 127 98 133 Basophils # 0.0 Basophils % 0.2 Eosinophils # 0.4 Eosinophils % 2.9 Hematocrit 24.2 L Hemoglobin 7.5 L Lymphocytes # 0.7 L Lymphocytes % 5.2 L Mean Corpuscular Hemoglobin 25.5 L Mean Corpuscular Hemoglobin Concent 31.0 L Mean Corpuscular Volume 82.3 Mean Platelet Volume 9.6 Monocytes # 0.8 Monocytes % 5.4 Neutrophils # 11.5 H Neutrophils % 80.8 H Nucleated Red Blood Cells # 0.0 Nucleated Red Blood Cells % 0.0 Platelet Count 498 H Red Blood Count 2.94 L Red Cell Distribution Width 17.0 H White Blood Count 14.3 H Test 08/11/16 06:10 08/11/16 09:31 08/11/16 13:05 08/11/16 17:33 Albumin 2.4 L Anion Gap 18 H Blood Urea Nitrogen 57 H Calcium Level 10.5 H Carbon Dioxide Level 26 Chloride Level 101 Creatinine 1.26 H Glucose Level 114 Magnesium Level 1.7 Phosphorus Level 3.5 Potassium Level 4.2 Sodium Level 141 Bedside Glucose 130 118 116 Medications Medications Current Medications Ondansetron HCl (Zofran Inj) 4 mg Q6H PRN IV NAUSEA AND/OR VOMITING; Start at 15:00 Acetaminophen (Tylenol Tab) 650 mg Q6H PRN PO PAIN LEVEL 1-3 OR FEVER Last administered on 08/10/16t 23:20; Admin Dose 650 MG; Start 07/31/16 at 15:00 Morphine Sulfate (morphine) 2 mg Q4H PRN IV SEVERE PAIN LEVEL 7-10 Last administered on 08/02/16 20:59; Admin Dose 2 MG; Start 07/31/16 at 15:00 Magnesium Hydroxide (Milk Of Mag) 30 ml DAILY PRN PO CONSTIPATION; Start at 15:00 Sodium Biphosphate/ Sodium Phosphate (Fleet Enema) 133 ml DAILY PRN [place] CONSTIPATION; Start 07/31/16 at 15:00 Famotidine (Pepcid Iv) 20 mg Q12 IV Last administered on 08/11/16 09:21; Admin Dose 20 MG; Start 07/31/16 at 21:00 Hydralazine HCl (Apresoline) 10 mg Q6H PRN IV ELEVATED BLOOD PRESSURE; Start at 15:00 Nitroglycerin (Nitroglycerin (Sl Tab) 0.4 Mg) 1 tab Q5M PRN SL ANGINA; Start at 15:00 Miscellaneous Information 1 ea NOTE XX ; Start 07/31/16 at 16:30 Glucose (Glutose) 15 gm Q15M PRN PO DECREASED GLUCOSE; Start 07/31/16 at 16:30 Glucose (Glutose) 22.5 gm Q15M PRN PO DECREASED GLUCOSE; Start 07/31/16 at 16: 30 Dextrose (D50w Syringe) 25 ml Q15M PRN IV DECREASED GLUCOSE; Start 07/31/16 at 16:30 Dextrose (D50w Syringe) 50 ml Q15M PRN IV DECREASED GLUCOSE; Start 07/31/16 at 16:30 Glucagon (Glucagen) 1 mg Q15M PRN IM DECREASED GLUCOSE; Start 07/31/16 at 16:30 Glucose (Glutose) 15 gm Q15M PRN BUCCAL DECREASED GLUCOSE; Start 07/31/16 at 16 :30 Sodium Hypochlorite (Dakin'S (1/4 Strength)) 1 applic BID IRR Last administered on 08/10/16 21:32; Admin Dose 1 APPLIC; Start 08/01/16 at 21:00 Calcium Carbonate (Ca Carbonate) 1,250 mg BID GTB Last administered on 09:21; Admin Dose 1,250 MG; Start 08/01/16 at 22:30 Acetaminophen/ Hydrocodone Bitart ([place] (5/325)) 1 tab Q4H PRN PEG MODERATE PAIN LEVEL 4-6 Last administered on 08/06/16 18:09; Admin Dose 1 TAB; Start 08/02 at 00:00 Lorazepam (Ativan) 0.5 mg Q4H PRN IV ANXIETY Last administered on 08/11/16 05: 34; Admin Dose 0.5 MG; Start 08/02/16 at 00:00 Zolpidem Tartrate (Ambien) 10 mg HS PRN PEG INSOMNIA Last administered on 23:20; Admin Dose 10 MG; Start 08/02/16 at 03:30 Fluconazole (Diflucan) 100 mg DAILY PO Last administered on 08/11/16 09:21; Admin Dose 100 MG; Start 08/02/16 at 12:30 Lactobacillus Acidoph/Bulgaricus (Floranex) 1 tab TID PO Last administered on 13:06; Admin Dose 1 TAB; Start 08/02/16 at 13:00 Ibuprofen (Motrin) 600 mg Q6H PRN PO PAIN OR TEMP ABOVE 38C Last administered on 08/11/16 02:24; Admin Dose 600 MG; Start 08/02/16 at 15:00 Zinc Sulfate (Zinc Sulfate) 220 mg DAILY GTB Last administered on 08/11/16 09: 21; Admin Dose 220 MG; Start 08/03/16 at 11:30 Multivitamins Therapeutic (Theragran) 1 tab DAILY PO Last administered on 09:21; Admin Dose 1 TAB; Start 08/03/16 at 11:30 Ascorbic Acid (Vitamin C) 500 mg BID GTB Last administered on 08/11/16 09:21; Admin Dose 500 MG; Start 08/03/16 at 11:30 Metronidazole (Flagyl) 500 mg Q8 PO Last administered on 08/11/16 13:47; Admin Dose 500 MG; Start 08/03/16 at 12:00 Sodium Hypochlorite (Dakin'S (Dilute 1/40%)) 1 applic BID IRR Last administered on 08/11/16 09:34; Admin Dose 1 APPLIC; Start 08/04/16 at 12:00 Hydromorphone HCl (Dilaudid) 0.5 mg Q8H PRN IV PAIN Last administered on 22:43; Admin Dose 0.5 MG; Start 08/04/16 at 12:00 Linezolid (Zyvox) 600 mg BID PO Last administered on 08/11/16 09:21; Admin Dose 600 MG; Start 08/05/16 at 21:00 Insulin Aspart (Novolog Insulin Pen) NOVOLOG *MODERATE* ALGORI... Q4 SC Last administered on 08/09/16 13:34; Admin Dose 4 UNIT; Start 08/08/16 at 13:00 Metformin HCl 500 mg 500 mg Q12 PO Last administered on 08/11/16 09:21; Admin Dose 500 MG; Start 08/08/16 at 21:00 Cefepime HCl 50 ml @ 100 mls/hr Q12 IVPB Last administered on 08/11/16 09:21 ; Admin Dose 100 MLS/HR; Start 08/08/16 at 16:00 Ferric Sodium Gluconate Complex 125 mg/Sodium Chloride 110 ml @ 110 mls/hr Q24H IVPB Last administered on 08/11/16 17:34; Admin Dose 110 MLS/HR; Start at 16:30; Stop 08/13/16 at 17:29 Colistimethate Sodium/Sodium Chloride (Coly-Mycin/NS) 100 ml @ 200 mls/hr Q12 IVPB Last administered on 08/11/16 09:21; Admin Dose 200 MLS/HR; Start at 11:30 Levothyroxine Sodium (Synthroid) 25 mcg DAILY@06 PO Last administered on 05:32; Admin Dose 25 MCG; Start 08/11/16 at 06:00 Docusate Sodium (Colace Liquid Cup) 100 mg Q12 GTB Last administered on 10:35; Admin Dose 100 MG; Start 08/11/16 at 10:30 ALDO BRADEN Aug 11, 2016 18:32
[2016-08-11] MEDS: PAROXETINE 10 MG TAB PO SCH (21:29)
[2016-08-11] MEDS: HYDROmorphONE 1 MG/ML SYG IV PRN (22:39)
[2016-08-12] VITALS (24 sets, daily range): BP systolic 100–123; BP diastolic 51–76; PULSE 95–114; RESP 18–32
[2016-08-12] MEDS: LORAZEPAM 2 MG INJ IV PRN ×3 (00:04→23:52)
[2016-08-12] MEDS: INSULIN ASPART [NOVOLOG] 3 ML PEN SC SCH ×5 (00:08→17:00)
--- NOTE | 2016-08-12 05:36 | PN ---
DATE: 08/11/2016 CARDIOLOGY FOLLOWUP SUBJECTIVE: Discussed with the staff. Discussed with at the bedside. The patient remains st atus post tracheostomy on the vent. Rhythm strip was reviewed, remains in sinus rhythm. No chest p ain or pressure. MEDICATIONS: Reviewed. PHYSICAL EXAMINATION: VITAL SIGNS: Temperature 98.2, heart rate of 97, blood pressure 120/70, respiration rate of 24, sat urating 98%. HEENT: Normocephalic, atraumatic. Pupils are equal. NECK: Supple. Tracheostomy on the vent. . CARDIOVASCULAR: Regular rate and rhythm. PULMONARY: No wheezes anteriorly. GASTROINTESTINAL: Soft, nontender. EXTREMITIES: Positive edema. NEUROLOGIC: Awake, responds appropriately. PSYCHIATRIC: Appears to be calm. LABORATORY: Chest x-ray, most recent one, shows air space disease in the lung. No significant bass ge. White blood cell count 14.3, hemoglobin 7.5, platelets of 498. Sodium 141, potassium 4.2, BUN of 57, creatinine of 1.26, glucose of 114, albumin 2.4. ASSESSMENT AND PLAN: 1. Sepsis, urinary tract infection, decubitus ulcer. 2. Respiratory failure, status post tracheostomy, vent dependent. 3. Status post recurrent multifocal bronchitis, bronchiolitis and pneumonia. 4. Marked cardiomyopathy. 5. Fluid overload/congestive heart failure/anasarca. 6. Malnutrition. 7. Severe anemia, mild cardiomyopathy. RECOMMENDATIONS: Antibiotic management as per ID. Continue the vent support. Diabetic control as per internal medicine. Respiratory care. We will continue to monitor on telemetry. Correct electr olytes as needed. Dictated By: JOSE MANUEL AVENDANO/SCOTTIE Conf#: [id number] DID#: [id number]
[2016-08-12] MEDS: LEVOTHYROXINE 25 MCG TAB PO SCH (05:49)
[2016-08-12] MEDS: metroNIDAZOLE 500 MG TAB PO SCH ×3 (05:49→22:02)
[2016-08-12 07:26] LABS: ADD SCAN DIFF NO
[2016-08-12 07:31] LABS: ABNORMAL IP MESSAGE 1; BASOPHILS % 0.3 % (0.0-2.0); EOSINOPHILS # 0.5 10^3/ul (0.0-0.5); HEMATOCRIT 26.6 % (42.0-52.0); LYMPHOCYTES # 0.7 10^3/ul (0.8-2.9); LYMPHOCYTES % 4.6 % (15.0-51.0); MEAN CORPUSCULAR HEMOGLOBIN 25.6 pg (29.0-33.0); MEAN CORPUSCULAR HGB CONC 30.1 g/dl (32.0-37.0); MEAN PLATELET VOLUME 10.4 fl (7.4-10.4); MONOCYTE # 0.8 10^3/ul (0.3-0.9); MONOCYTES % 5.1 % (0.0-11.0); NEUTROPHIL # 12.6 10^3/ul (1.6-7.5); NEUTROPHILS % 79.8 % (39.0-77.0); PLATELET COUNT 428 10^3/UL (140-415); RED BLOOD COUNT 3.13 10^6/ul (4.70-6.10); RED CELL DISTRIBUTION WIDTH 17.2 % (11.5-14.5); WHITE BLOOD COUNT 15.8 10^3/ul (4.8-10.8)
[2016-08-12 07:53] LABS: CREATININE 1.24 mg/dl (0.61-1.24)
[2016-08-12 07:54] LABS: CALCIUM 10.4 mg/dl (8.4-10.2); MAGNESIUM 1.7 mg/dl (1.7-2.5)
[2016-08-12] MEDS: DOCUSATE SODIUM 10 MG/ML (10ML CUP) GTB SCH ×2 (08:42→22:02)
[2016-08-12] MEDS: ASCORBIC ACID 500 MG TAB GTB SCH ×2 (08:42→22:02)
[2016-08-12] MEDS: CA CARBONATE (250 MG/ML) 5ML CUP GTB SCH (08:42)
[2016-08-12] MEDS: ZINC SULFATE 220 MG CAP GTB SCH (08:42)
[2016-08-12] MEDS: SODIUM HYPOCHLORITE 0.125% 473 ML BTL IRR SCH ×2 (08:42→22:01)
[2016-08-12] MEDS: FLUCONAZOLE 100 MG TAB PO SCH (08:45)
[2016-08-12] MEDS: CEFEPIME 1GM/50 ML (PMX) 50 ML IVPB SCH ×2 (08:45→22:07)
[2016-08-12] MEDS: LACTOBACILLUS CHEW TAB PO SCH ×3 (08:45→22:02)
[2016-08-12] MEDS: FAMOTIDINE 20 MG INJ IV SCH ×2 (08:45→22:02)
[2016-08-12] MEDS: ZYVOX 600 MG TAB PO SCH ×2 (08:45→22:02)
[2016-08-12] MEDS: PAROXETINE 10 MG TAB PO SCH (08:45)
[2016-08-12] MEDS: metFORMIN 500 MG TAB PO SCH ×2 (08:45→22:02)
[2016-08-12] MEDS: MULTIVITAMINS THERAPEUTIC TAB PO SCH (08:46)
[2016-08-12] MEDS: COLISTIMETHATE 135 MG in SOD CHLORIDE 0.9% 100 ML IVPB SCH ×2 (09:02→23:44)
--- NOTE | 2016-08-12 09:32 | PN ---
Date/Time of Note Date/Time of Note DATE: 08/12/16 TIME: 09:25 Assessment/Plan VTE Prophylaxis VTE Prophylaxis Intervention: SCD's Lines/Catheters IV Catheter Type (from Nrs): portacath Urinary Cath still in place: Yes Reason Cath still needed: other (indicate) (changed 08/10/16) Assessment/Plan Assessment/Plan 46-year-old male sent in with fever and diaphoresis with findings of sepsis with hypotension, tachycardia, likely secondary to possible decubitus ulcer worsening infection. 1. Sepsis - sec to resp infection+ UTI + decubitus ulcer infx. 2. Chronic respiratory failure,Vent dependent via trach 3. Recurrent Multifocal bronchitis/bronchiolitis/bronchopneumonia 4. Chronic Dysphagia currently on G-tube feeds. 2/2 #5 5. C2 fracture 2/2 fall in April 2016 + chronic neuropathy / with cervical collar still in place Per patient he was meant to have collar only for 4months 6. Multiple infected decubiti down to the bone 7. Severe hypochromic microcytic anemia likely with a component of chronic blood loss from ulcers + iron deficiency recurrent anemia : likely 2/2 to chronic microscopic blood loss 8. DM 2 with suboptimal control: stable on metformin 9. Cardiomyopathy with ejection fraction 45-50% via echo on previous admission 10. Pseudomonas / Addis UTI 11. New Hypothyroidism 12. Probable Depression : patient refusing turning and wound care / started on Paxil PLAN: * Still having low grade fevers / Continue abx and f/u ID recs * F/u CT Cervical spine / notify Dr Jimenez when results available for review Patient had C-spine surgery + hardware and there's the question of if he still needs the brace * F/u Bone scan to ensure no osteo in pelvis or C-spine causing persistent fevers * Per surgery, Patient needs diverting colostomy but was having cardiac issues and is still mildly septic, awaiting stabilization * Complete 5 days of iron infusion * Monitor hgb and repeat transfusion as needed / heparin held for recurrent anemia * Continue vent mgt per pulm * Continue supportive care and all other mgt Fluid/Nutrition and electrolytes: Tube feeds + free water Prophylaxis: H2 pam / SCDs Subjective 24 Hr Interval Summary Free Text/Dictation Patient seen and examined. Still having low grade fevers and tachycardia spoke with nursing / ID / neurosurgery / pulm Exam/Review of Systems Vital Signs Vitals Vital Signs Date Time Temp Pulse Resp B/P Pulse Ox O2 Delivery O2 Flow Rate FiO2 08/12/16 08:45 102 08/12/16 07:35 24 98 45 08/12/16 07:32 98.9 111/62 08/09/16 13:00 Mechanical Ventilator Intake and Output 08/11/16 08/11/16 08/12/16 15:00 23:00 07:00 Intake Total 1400 ml 1260 ml Output Total 4500 ml 1200 ml Balance -3100 ml 60 ml Exam Constitutional: frail, other (very lethargic, acutely ill, ), No alert, No oriented ENMT: other (trach to vent) Respiratory: diminished breath sounds, No wheezing Cardiovascular: nl pulses, No regular rate and rhythm Gastrointestinal: bowel sounds, soft Musculoskeletal: muscle weakness, No muscle tone, No nl extremities to inspection Extremities: edema, Neurological: lethargic, other (quadriplegic) Results Result Diagram: 08/12/16 0557 08/12/16 0557 Results 24 hrs Laboratory Tests Test 08/11/16 09:31 08/11/16 13:05 08/11/16 17:33 08/11/16 21:26 Bedside Glucose 130 118 116 96 Test 08/12/16 00:06 08/12/16 05:48 08/12/16 05:57 08/12/16 08:54 Bedside Glucose 109 126 115 Anion Gap 15 Basophils # 0.0 Basophils % 0.3 Blood Urea Nitrogen 58 H Calcium Level 10.4 H Carbon Dioxide Level 25 Chloride Level 99 Creatinine 1.24 Eosinophils # 0.5 Eosinophils % 3.0 Glucose Level 104 Hematocrit 26.6 L Hemoglobin 8.0 L Lymphocytes # 0.7 L Lymphocytes % 4.6 L Magnesium Level 1.7 Mean Corpuscular Hemoglobin 25.6 L Mean Corpuscular Hemoglobin Concent 30.1 L Mean Corpuscular Volume 85.0 Mean Platelet Volume 10.4 Monocytes # 0.8 Monocytes % 5.1 Neutrophils # 12.6 H Neutrophils % 79.8 H Nucleated Red Blood Cells # 0.0 Nucleated Red Blood Cells % 0.0 Platelet Count 428 H Potassium Level 4.0 Red Blood Count 3.13 L Red Cell Distribution Width 17.2 H Sodium Level 135 White Blood Count 15.8 H Medications Medications Current Medications Ondansetron HCl (Zofran Inj) 4 mg Q6H PRN IV NAUSEA AND/OR VOMITING; Start at 15:00 Acetaminophen (Tylenol Tab) 650 mg Q6H PRN PO PAIN LEVEL 1-3 OR FEVER Last administered on 08/10/16 23:20; Admin Dose 650 MG; Start 07/31/16 at 15:00 Morphine Sulfate (morphine) 2 mg Q4H PRN IV SEVERE PAIN LEVEL 7-10 Last administered on 08/02/16 20:59; Admin Dose 2 MG; Start 07/31/16 at 15:00 Magnesium Hydroxide (Milk Of Mag) 30 ml DAILY PRN PO CONSTIPATION; Start at 15:00 Sodium Biphosphate/ Sodium Phosphate (Fleet Enema) 133 ml DAILY PRN [place] CONSTIPATION; Start 07/31/16 at 15:00 Famotidine (Pepcid Iv) 20 mg Q12 IV Last administered on 08/12/16 08:45; Admin Dose 20 MG; Start 07/31/16 at 21:00 Hydralazine HCl (Apresoline) 10 mg Q6H PRN IV ELEVATED BLOOD PRESSURE; Start at 15:00 Nitroglycerin (Nitroglycerin (Sl Tab) 0.4 Mg) 1 tab Q5M PRN SL ANGINA; Start at 15:00 Miscellaneous Information 1 ea NOTE XX ; Start 07/31/16 at 16:30 Glucose (Glutose) 15 gm Q15M PRN PO DECREASED GLUCOSE; Start 07/31/16 at 16:30 Glucose (Glutose) 22.5 gm Q15M PRN PO DECREASED GLUCOSE; Start 07/31/16 at 16: 30 Dextrose (D50w Syringe) 25 ml Q15M PRN IV DECREASED GLUCOSE; Start 07/31/16 at 16:30 Dextrose (D50w Syringe) 50 ml Q15M PRN IV DECREASED GLUCOSE; Start 07/31/16 at 16:30 Glucagon (Glucagen) 1 mg Q15M PRN IM DECREASED GLUCOSE; Start 07/31/16 at 16:30 Glucose (Glutose) 15 gm Q15M PRN BUCCAL DECREASED GLUCOSE; Start 07/31/16 at 16 :30 Sodium Hypochlorite (Dakin'S (1/4 Strength)) 1 applic BID IRR Last administered on 08/12/16 08:42; Admin Dose 1 APPLIC; Start 08/01/16 at 21:00 Calcium Carbonate (Ca Carbonate) 1,250 mg BID GTB Last administered on 08:42; Admin Dose 1,250 MG; Start 08/01/16 at 22:30 Acetaminophen/ Hydrocodone Bitart ([place] (5/325)) 1 tab Q4H PRN PEG MODERATE PAIN LEVEL 4-6 Last administered on 08/06/16 18:09; Admin Dose 1 TAB; Start 08/02 at 00:00 Lorazepam (Ativan) 0.5 mg Q4H PRN IV ANXIETY Last administered on 08/12/16 06: 59; Admin Dose 0.5 MG; Start 08/02/16 at 00:00 Zolpidem Tartrate (Ambien) 10 mg HS PRN PEG INSOMNIA Last administered on 23:20; Admin Dose 10 MG; Start 08/02/16 at 03:30 Fluconazole (Diflucan) 100 mg DAILY PO Last administered on 08/12/16 08:45; Admin Dose 100 MG; Start 08/02/16 at 12:30 Lactobacillus Acidoph/Bulgaricus (Floranex) 1 tab TID PO Last administered on 08:45; Admin Dose 1 TAB; Start 08/02/16 at 13:00 Ibuprofen (Motrin) 600 mg Q6H PRN PO PAIN OR TEMP ABOVE 38C Last administered on 08/11/16 21:29; Admin Dose 600 MG; Start 08/02/16 at 15:00 Zinc Sulfate (Zinc Sulfate) 220 mg DAILY GTB Last administered on 08/12/16 08: 42; Admin Dose 220 MG; Start 08/03/16 at 11:30 Multivitamins Therapeutic (Theragran) 1 tab DAILY PO Last administered on 08:46; Admin Dose 1 TAB; Start 08/03/16 at 11:30 Ascorbic Acid (Vitamin C) 500 mg BID GTB Last administered on 08/12/16 08:42; Admin Dose 500 MG; Start 08/03/16 at 11:30 Metronidazole (Flagyl) 500 mg Q8 PO Last administered on 08/12/16 05:49; Admin Dose 500 MG; Start 08/03/16 at 12:00 Sodium Hypochlorite (Dakin'S (Dilute 1/40%)) 1 applic BID IRR Last administered on 08/11/16 09:34; Admin Dose 1 APPLIC; Start 08/04/16 at 12:00 Hydromorphone HCl (Dilaudid) 0.5 mg Q8H PRN IV PAIN Last administered on 22:39; Admin Dose 0.5 MG; Start 08/04/16 at 12:00 Linezolid (Zyvox) 600 mg BID PO Last administered on 08/12/16 08:45; Admin Dose 600 MG; Start 08/05/16 at 21:00 Insulin Aspart (Novolog Insulin Pen) NOVOLOG *MODERATE* ALGORI... Q4 SC Last administered on 08/09/16 13:34; Admin Dose 4 UNIT; Start 08/08/16 at 13:00 Metformin HCl 500 mg 500 mg Q12 PO Last administered on 08/12/16 08:45; Admin Dose 500 MG; Start 08/08/16 at 21:00 Cefepime HCl 50 ml @ 100 mls/hr Q12 IVPB Last administered on 08/12/16 08:45 ; Admin Dose 100 MLS/HR; Start 08/08/16 at 16:00 Ferric Sodium Gluconate Complex 125 mg/Sodium Chloride 110 ml @ 110 mls/hr Q24H IVPB Last administered on 08/11/16 17:34; Admin Dose 110 MLS/HR; Start at 16:30; Stop 08/13/16 at 17:29 Colistimethate Sodium/Sodium Chloride (Coly-Mycin/NS) 100 ml @ 200 mls/hr Q12 IVPB Last administered on 08/12/16 09:02; Admin Dose 200 MLS/HR; Start at 11:30 Levothyroxine Sodium (Synthroid) 25 mcg DAILY@06 PO Last administered on 05:49; Admin Dose 25 MCG; Start 08/11/16 at 06:00 Docusate Sodium (Colace Liquid Cup) 100 mg Q12 GTB Last administered on 08:42; Admin Dose 100 MG; Start 08/11/16 at 10:30 Paroxetine HCl (Paxil) 10 mg DAILY PO Last administered on 08/12/16 08:45; Admin Dose 10 MG; Start 08/11/16 at 21:00 ALDO BRADEN Aug 12, 2016 09:31
[2016-08-12] MEDS: ALBUTEROL/IPRATROPIUM (NEB) 3 ML AMP HHN PRN (09:38)
[2016-08-12] MEDS ORDERED: MAGNESIUM SULFATE 1 GM/D5W 100 ML IVPB ONE (10:30)
[2016-08-12] MEDS: SODIUM HYPOCHLORITE 1/40% 1L IRRIG IRR SCH ×2 (11:26→22:07)
--- NOTE | 2016-08-12 12:32 | RADRPT ---
PROCEDURE: US Lower extremity Venous. CLINICAL INDICATION: r/o DVT TECHNIQUE: Multiple sonographic images of the bilateral lower extremity deep venous system was obt ained utilizing grayscale, color-flow, compressive sonography and doppler imaging with augmentation. The images were reviewed on a PACS workstation. COMPARISON: May 10, 2016 FINDINGS: There is normal compressibility and flow within the bilateral common femoral, deep femoral, superfic ial femoral and popliteal veins. The deep veins the calf were incompletely visualized. IMPRESSION: No sonographic evidence for deep venous thrombosis in the bilateral lower extremities. Physician Yecenia Date Time Electronically viewed and signed by Physician Yecenia on 08/12/2016 12:31 ML/
--- NOTE | 2016-08-12 14:40 | CONS ---
Date/Time of Note Date/Time of Note DATE: 08/12/16 TIME: 14:36 Assessment/Plan Assessment/Plan Additional Assessment/Plan Ventilator settings; AC of 24, tidal volume 500, PEEP of 5, 45% FiO2. Assessment recommendations; 1. Patient admitted for severe bilateral pneumonia. 2. Multiple sacral and hip ulcers. 3. Chronic respiratory failure due to C2 injury. Resulting in quadriplegia. Patient remains ventilator dependent. 4. Systolic dysfunction. 5. History of hypertension. Continue current treatment. Obtain a follow-up chest x-ray tomorrow morning. Consultation Date/Type/Reason Admit Date/Time Jul 31, 2016 at 14:20 Initial Consult Date 08/02/16 Type of Consultation: Pulmonary 24 HR Interval Summary Free Text/Dictation Patient condition remains tenuous at best. Still requiring fairly high FiO2 at 45% for O2 saturation maintenance. Patient however has remained hemodynamically stable. General exam; young male, on ventilator via tracheostomy. Awake and alert. Currently in no distress. Exam/Review of Systems Vital Signs Vitals Vital Signs Date Time Temp Pulse Resp B/P Pulse Ox O2 Delivery O2 Flow Rate FiO2 08/12/16 13:20 96 27 97 45 08/12/16 12:42 100/55 08/12/16 07:32 98.9 08/09/16 13:00 Mechanical Ventilator Intake and Output 08/11/16 08/11/16 08/12/16 15:00 23:00 07:00 Intake Total 1400 ml 1260 ml Output Total 4500 ml 1200 ml Balance -3100 ml 60 ml Exam H EENT exam; patient's neck is in a soft C-spine collar, suppleness was not evaluated. Tracheostomy in place with clean insertion site. No neck masses. Pupils are midsize reactive to light. Pharynx is clear. Patient has good dentition. Chest examination; diminished breath on lung bases bilaterally upper lobes are clear. S1-S2 audible, no murmurs. Regular rhythm. Abdomen examination; soft, nondistended. No organomegaly. Bowel sounds audible. G-tube in place. Extremity exam is; no peripheral edema. Back examination reveals multiple sacral and hip ulcers. EPIDEMIOLOGY INTERNSHIP examination a micro patient is stable quadriplegia. Results Result Diagram: 08/12/16 0557 08/12/16 0557 Results 24 hrs Laboratory Tests Test 08/11/16 17:33 08/11/16 21:26 08/12/16 00:06 08/12/16 05:48 Bedside Glucose 116 96 109 126 Test 08/12/16 05:57 08/12/16 08:54 08/12/16 13:36 Anion Gap 15 Basophils # 0.0 Basophils % 0.3 Blood Urea Nitrogen 58 H Calcium Level 10.4 H Carbon Dioxide Level 25 Chloride Level 99 Creatinine 1.24 Eosinophils # 0.5 Eosinophils % 3.0 Glucose Level 104 Hematocrit 26.6 L Hemoglobin 8.0 L Lymphocytes # 0.7 L Lymphocytes % 4.6 L Magnesium Level 1.7 Mean Corpuscular Hemoglobin 25.6 L Mean Corpuscular Hemoglobin Concent 30.1 L Mean Corpuscular Volume 85.0 Mean Platelet Volume 10.4 Monocytes # 0.8 Monocytes % 5.1 Neutrophils # 12.6 H Neutrophils % 79.8 H Nucleated Red Blood Cells # 0.0 Nucleated Red Blood Cells % 0.0 Platelet Count 428 H Potassium Level 4.0 Red Blood Count 3.13 L Red Cell Distribution Width 17.2 H Sodium Level 135 White Blood Count 15.8 H Bedside Glucose 115 128 Medications Medications Current Medications Ondansetron HCl (Zofran Inj) 4 mg Q6H PRN IV NAUSEA AND/OR VOMITING; Start at 15:00 Acetaminophen (Tylenol Tab) 650 mg Q6H PRN PO PAIN LEVEL 1-3 OR FEVER Last administered on 08/10/16 23:20; Admin Dose 650 MG; Start 07/31/16 at 15:00 Morphine Sulfate (morphine) 2 mg Q4H PRN IV SEVERE PAIN LEVEL 7-10 Last administered on 08/02/16 20:59; Admin Dose 2 MG; Start 07/31/16 at 15:00 Magnesium Hydroxide (Milk Of Mag) 30 ml DAILY PRN PO CONSTIPATION; Start at 15:00 Sodium Biphosphate/ Sodium Phosphate (Fleet Enema) 133 ml DAILY PRN [place] CONSTIPATION; Start 07/31/16 at 15:00 Famotidine (Pepcid Iv) 20 mg Q12 IV Last administered on 08/12/16 08:45; Admin Dose 20 MG; Start 07/31/16 at 21:00 Hydralazine HCl (Apresoline) 10 mg Q6H PRN IV ELEVATED BLOOD PRESSURE; Start at 15:00 Nitroglycerin (Nitroglycerin (Sl Tab) 0.4 Mg) 1 tab Q5M PRN SL ANGINA; Start at 15:00 Miscellaneous Information 1 ea NOTE XX ; Start 07/31/16 at 16:30 Glucose (Glutose) 15 gm Q15M PRN PO DECREASED GLUCOSE; Start 07/31/16 at 16:30 Glucose (Glutose) 22.5 gm Q15M PRN PO DECREASED GLUCOSE; Start 07/31/16 at 16: 30 Dextrose (D50w Syringe) 25 ml Q15M PRN IV DECREASED GLUCOSE; Start 07/31/16 at 16:30 Dextrose (D50w Syringe) 50 ml Q15M PRN IV DECREASED GLUCOSE; Start 07/31/16 at 16:30 Glucagon (Glucagen) 1 mg Q15M PRN IM DECREASED GLUCOSE; Start 07/31/16 at 16:30 Glucose (Glutose) 15 gm Q15M PRN BUCCAL DECREASED GLUCOSE; Start 07/31/16 at 16 :30 Sodium Hypochlorite (Dakin'S (1/4 Strength)) 1 applic BID IRR Last administered on 08/12/16 08:42; Admin Dose 1 APPLIC; Start 08/01/16 at 21:00 Calcium Carbonate (Ca Carbonate) 1,250 mg BID GTB Last administered on 08:42; Admin Dose 1,250 MG; Start 08/01/16 at 22:30 Acetaminophen/ Hydrocodone Bitart ([place] (5/325)) 1 tab Q4H PRN PEG MODERATE PAIN LEVEL 4-6 Last administered on 08/06/16 18:09; Admin Dose 1 TAB; Start 08/02 at 00:00 Lorazepam (Ativan) 0.5 mg Q4H PRN IV ANXIETY Last administered on 08/12/16 06: 59; Admin Dose 0.5 MG; Start 08/02/16 at 00:00 Zolpidem Tartrate (Ambien) 10 mg HS PRN PEG INSOMNIA Last administered on 23:20; Admin Dose 10 MG; Start 08/02/16 at 03:30 Fluconazole (Diflucan) 100 mg DAILY PO Last administered on 08/12/16 08:45; Admin Dose 100 MG; Start 08/02/16 at 12:30 Lactobacillus Acidoph/Bulgaricus (Floranex) 1 tab TID PO Last administered on 13:37; Admin Dose 1 TAB; Start 08/02/16 at 13:00 Ibuprofen (Motrin) 600 mg Q6H PRN PO PAIN OR TEMP ABOVE 38C Last administered on 08/11/16 21:29; Admin Dose 600 MG; Start 08/02/16 at 15:00 Zinc Sulfate (Zinc Sulfate) 220 mg DAILY GTB Last administered on 08/12/16 08: 42; Admin Dose 220 MG; Start 08/03/16 at 11:30 Multivitamins Therapeutic (Theragran) 1 tab DAILY PO Last administered on 08:46; Admin Dose 1 TAB; Start 08/03/16 at 11:30 Ascorbic Acid (Vitamin C) 500 mg BID GTB Last administered on 08/12/16 08:42; Admin Dose 500 MG; Start 08/03/16 at 11:30 Metronidazole (Flagyl) 500 mg Q8 PO Last administered on 08/12/16 13:37; Admin Dose 500 MG; Start 08/03/16 at 12:00 Sodium Hypochlorite (Dakin'S (Dilute 1/40%)) 1 applic BID IRR Last administered on 08/12/16 11:26; Admin Dose 1 APPLIC; Start 08/04/16 at 12:00 Hydromorphone HCl (Dilaudid) 0.5 mg Q8H PRN IV PAIN Last administered on 22:39; Admin Dose 0.5 MG; Start 08/04/16 at 12:00 Linezolid (Zyvox) 600 mg BID PO Last administered on 08/12/16 08:45; Admin Dose 600 MG; Start 08/05/16 at 21:00 Insulin Aspart (Novolog Insulin Pen) NOVOLOG *MODERATE* ALGORI... Q4 SC Last administered on 08/09/16 13:34; Admin Dose 4 UNIT; Start 08/08/16 at 13:00 Metformin HCl 500 mg 500 mg Q12 PO Last administered on 08/12/16 08:45; Admin Dose 500 MG; Start 08/08/16 at 21:00 Cefepime HCl 50 ml @ 100 mls/hr Q12 IVPB Last administered on 08/12/16 08:45 ; Admin Dose 100 MLS/HR; Start 08/08/16 at 16:00 Ferric Sodium Gluconate Complex 125 mg/Sodium Chloride 110 ml @ 110 mls/hr Q24H IVPB Last administered on 08/11/16 17:34; Admin Dose 110 MLS/HR; Start at 16:30; Stop 08/13/16 at 17:29 Colistimethate Sodium/Sodium Chloride (Coly-Mycin/NS) 100 ml @ 200 mls/hr Q12 IVPB Last administered on 08/12/16 09:02; Admin Dose 200 MLS/HR; Start at 11:30 Levothyroxine Sodium (Synthroid) 25 mcg DAILY@06 PO Last administered on 05:49; Admin Dose 25 MCG; Start 08/11/16 at 06:00 Docusate Sodium (Colace Liquid Cup) 100 mg Q12 GTB Last administered on 08:42; Admin Dose 100 MG; Start 08/11/16 at 10:30 Paroxetine HCl (Paxil) 10 mg DAILY PO Last administered on 08/12/16 08:45; Admin Dose 10 MG; Start 08/11/16 at 21:00 ALISSON ARRIOLA Aug 12, 2016 14:40
--- NOTE | 2016-08-12 15:24 | CONS ---
Date/Time of Note Date/Time of Note DATE: 08/12/16 TIME: 15:12 Assessment/Plan Assessment/Plan Chief Complaint/Hosp Course ID PROGRESS NOTE TOTAL ABX DAY => Zyvox #8, Colistin IV, Cefepime, Diflucan, Flagyl 24H INTERVAL SUMMARY * Clinically status quo === NO fevers, no new issues, A/A/O - responsive w/C- spine collar, trach * d/w Dr. Albarran concern depression + female visitors may be contributing to his intermittent decline to nursing staff for wound care/turning ? Per nursing notes he declines wound care at times, has multiple visitors. Dr. Albarran to consider anti-depressant Rx * CT C-spine + 3-Bone Scan/Gallium r/o OM ordered => Pending * Low grade temps on off -- s/p Fever >48 H s PHYSICAL EXAMINATION: GENERAL: 46 yo M HEENT/Neck: Trach C-Spine collar NCHEST: Equal chest rise bilaterally, without dyspnea on observation HEART: Pulse RRR ABDOMEN: Soft EXTREMITIES: Warm SKIN: See hard chart skin assessment: multiple STG IV Decubs ID ASSESSMENT: 46 yo M w/C-spine injury w/paraplegia->s/p spinal surgery admit with: 1. Sepsis on admission w/ fever, hypotension and tachycardia => multifactorial * BCx (-) to date * Afebrile today w/(+)low grade temps on/off ~100.+ 2. HCAP broncho-PNA * CT: Scattered bronchial wall thickening, centrilobular nodules, tree in bud nodularity, and bronchocentric consolidation consistent with multifocal bronchitis/bronchiolitis/bronchopneumonia. Areas of bronchocentric scarring is also seen throughout the lungs suggestive of chronic recurrent infections. 3. Neurogenic bladder w/indwelling FC 4. Recurrent UTI's = CRI w/justification to keep FC due to incontinence wounds, concern urinary retention 5. Multiple infx decubs: Buttock/Back x 4 = STG IV / bilateral heels WOUND CULTURE Final Organism 1 KLEB PNEUMONIAE CARBAPENEMASE QUANTITY 3+ . MULTI DRUG RESISTANT ORGANISM Organism 2 ACINETOBACTER BAUMANNII QUANTITY 2+ Organism 3 VANCO RESISTANT ENTEROCOCCUS QUANTITY ISOLATED FROM BROTH ONLY . MULTI DRUG RESISTANT ORGANISM Organism 4 PROTEUS MIRABILIS QUANTITY SCANT GROWTH 6. Diarrhea = TF + ABX associated 7. Poor wound healing / protein sawyer malnutrition * On MVI, VitC, Zinc supplements 8. DMT2 ?Peripheral neuropathy 9. Depression=> situational related to current illness * property staff accountant alerted patient at times declines wound care, turning, ?if due to frequent presence of female visitors in the room? * Encourage patient importance of turning and wound care compliance w/nursing staff (-)MRSA Nares INVASIVES: Trach/Peg/FC/PICC/C-spine hardware ABX ALLERGY: KNDA CURRENT ABX: => Zyvox #8, Colistin IV, Cefepime, Diflucan, Flagyl ID RECOMMENDATIONS: 1. Continue current ABX 2. Diarrhea contaminating wound = Needs diverting colostomy - too unstable for surgery at this time 3. Per notes: Not a good candidate for wound dbride due to concern would lead to chronic non-healing wound 4. Repeat imaging on order per Dr. Albarran: * PENDING: REPEAT CT: Patient had C-spine surgery + hardware and there's the question of if he still needs the brace * PENDING: F/u Bone scan to ensure no osteo in pelvis or C-spine= 3-phase bone scan/gallium scan check C-spine surgical post op site and sacral for possibility of OM d/w Dr. Albarran . Problems: Consultation Date/Type/Reason Admit Date/Time Jul 31, 2016 at 14:20 Initial Consult Date 08/02/16 Type of Consultation: ID Exam/Review of Systems Vital Signs Vitals Vital Signs Date Time Temp Pulse Resp B/P Pulse Ox O2 Delivery O2 Flow Rate FiO2 08/12/16 13:20 96 27 97 45 08/12/16 12:42 100/55 08/12/16 07:32 98.9 08/09/16 13:00 Mechanical Ventilator Intake and Output 08/11/16 08/11/16 08/12/16 15:00 23:00 07:00 Intake Total 1400 ml 1260 ml Output Total 4500 ml 1200 ml Balance -3100 ml 60 ml Results Result Diagram: 08/12/16 0557 08/12/16 0557 Results 24 hrs Laboratory Tests Test 08/11/16 17:33 08/11/16 21:26 08/12/16 00:06 08/12/16 05:48 Bedside Glucose 116 96 109 126 Test 08/12/16 05:57 08/12/16 08:54 08/12/16 13:36 Anion Gap 15 Basophils # 0.0 Basophils % 0.3 Blood Urea Nitrogen 58 H Calcium Level 10.4 H Carbon Dioxide Level 25 Chloride Level 99 Creatinine 1.24 Eosinophils # 0.5 Eosinophils % 3.0 Glucose Level 104 Hematocrit 26.6 L Hemoglobin 8.0 L Lymphocytes # 0.7 L Lymphocytes % 4.6 L Magnesium Level 1.7 Mean Corpuscular Hemoglobin 25.6 L Mean Corpuscular Hemoglobin Concent 30.1 L Mean Corpuscular Volume 85.0 Mean Platelet Volume 10.4 Monocytes # 0.8 Monocytes % 5.1 Neutrophils # 12.6 H Neutrophils % 79.8 H Nucleated Red Blood Cells # 0.0 Nucleated Red Blood Cells % 0.0 Platelet Count 428 H Potassium Level 4.0 Red Blood Count 3.13 L Red Cell Distribution Width 17.2 H Sodium Level 135 White Blood Count 15.8 H Bedside Glucose 115 128 Medications Medications Current Medications Ondansetron HCl (Zofran Inj) 4 mg Q6H PRN IV NAUSEA AND/OR VOMITING; Start at 15:00 Acetaminophen (Tylenol Tab) 650 mg Q6H PRN PO PAIN LEVEL 1-3 OR FEVER Last administered on 08/10/16 23:20; Admin Dose 650 MG; Start 07/31/16 at 15:00 Morphine Sulfate (morphine) 2 mg Q4H PRN IV SEVERE PAIN LEVEL 7-10 Last administered on 08/02/16 20:59; Admin Dose 2 MG; Start 07/31/16 at 15:00 Magnesium Hydroxide (Milk Of Mag) 30 ml DAILY PRN PO CONSTIPATION; Start at 15:00 Sodium Biphosphate/ Sodium Phosphate (Fleet Enema) 133 ml DAILY PRN [place] CONSTIPATION; Start 07/31/16 at 15:00 Famotidine (Pepcid Iv) 20 mg Q12 IV Last administered on 08/12/16 08:45; Admin Dose 20 MG; Start 07/31/16 at 21:00 Hydralazine HCl (Apresoline) 10 mg Q6H PRN IV ELEVATED BLOOD PRESSURE; Start at 15:00 Nitroglycerin (Nitroglycerin (Sl Tab) 0.4 Mg) 1 tab Q5M PRN SL ANGINA; Start at 15:00 Miscellaneous Information 1 ea NOTE XX ; Start 07/31/16 at 16:30 Glucose (Glutose) 15 gm Q15M PRN PO DECREASED GLUCOSE; Start 07/31/16 at 16:30 Glucose (Glutose) 22.5 gm Q15M PRN PO DECREASED GLUCOSE; Start 07/31/16 at 16: 30 Dextrose (D50w Syringe) 25 ml Q15M PRN IV DECREASED GLUCOSE; Start 07/31/16 at 16:30 Dextrose (D50w Syringe) 50 ml Q15M PRN IV DECREASED GLUCOSE; Start 07/31/16 at 16:30 Glucagon (Glucagen) 1 mg Q15M PRN IM DECREASED GLUCOSE; Start 07/31/16 at 16:30 Glucose (Glutose) 15 gm Q15M PRN BUCCAL DECREASED GLUCOSE; Start 07/31/16 at 16 :30 Sodium Hypochlorite (Dakin'S (1/4 Strength)) 1 applic BID IRR Last administered on 08/12/16 08:42; Admin Dose 1 APPLIC; Start 08/01/16 at 21:00 Calcium Carbonate (Ca Carbonate) 1,250 mg BID GTB Last administered on 08:42; Admin Dose 1,250 MG; Start 08/01/16 at 22:30 Acetaminophen/ Hydrocodone Bitart ([place] (5/325)) 1 tab Q4H PRN PEG MODERATE PAIN LEVEL 4-6 Last administered on 08/06/16 18:09; Admin Dose 1 TAB; Start 08/02 at 00:00 Lorazepam (Ativan) 0.5 mg Q4H PRN IV ANXIETY Last administered on 08/12/16 06: 59; Admin Dose 0.5 MG; Start 08/02/16 at 00:00 Zolpidem Tartrate (Ambien) 10 mg HS PRN PEG INSOMNIA Last administered on 23:20; Admin Dose 10 MG; Start 08/02/16 at 03:30 Fluconazole (Diflucan) 100 mg DAILY PO Last administered on 08/12/16 08:45; Admin Dose 100 MG; Start 08/02/16 at 12:30 Lactobacillus Acidoph/Bulgaricus (Floranex) 1 tab TID PO Last administered on 13:37; Admin Dose 1 TAB; Start 08/02/16 at 13:00 Ibuprofen (Motrin) 600 mg Q6H PRN PO PAIN OR TEMP ABOVE 38C Last administered on 08/11/16 21:29; Admin Dose 600 MG; Start 08/02/16 at 15:00 Zinc Sulfate (Zinc Sulfate) 220 mg DAILY GTB Last administered on 08/12/16 08: 42; Admin Dose 220 MG; Start 08/03/16 at 11:30 Multivitamins Therapeutic (Theragran) 1 tab DAILY PO Last administered on 08:46; Admin Dose 1 TAB; Start 08/03/16 at 11:30 Ascorbic Acid (Vitamin C) 500 mg BID GTB Last administered on 08/12/16 08:42; Admin Dose 500 MG; Start 08/03/16 at 11:30 Metronidazole (Flagyl) 500 mg Q8 PO Last administered on 08/12/16 13:37; Admin Dose 500 MG; Start 08/03/16 at 12:00 Sodium Hypochlorite (Dakin'S (Dilute 1/40%)) 1 applic BID IRR Last administered on 08/12/16 11:26; Admin Dose 1 APPLIC; Start 08/04/16 at 12:00 Hydromorphone HCl (Dilaudid) 0.5 mg Q8H PRN IV PAIN Last administered on 22:39; Admin Dose 0.5 MG; Start 08/04/16 at 12:00 Linezolid (Zyvox) 600 mg BID PO Last administered on 08/12/16 08:45; Admin Dose 600 MG; Start 08/05/16 at 21:00 Insulin Aspart (Novolog Insulin Pen) NOVOLOG *MODERATE* ALGORI... Q4 SC Last administered on 08/09/16 13:34; Admin Dose 4 UNIT; Start 08/08/16 at 13:00 Metformin HCl 500 mg 500 mg Q12 PO Last administered on 08/12/16 08:45; Admin Dose 500 MG; Start 08/08/16 at 21:00 Cefepime HCl 50 ml @ 100 mls/hr Q12 IVPB Last administered on 08/12/16 08:45 ; Admin Dose 100 MLS/HR; Start 08/08/16 at 16:00 Ferric Sodium Gluconate Complex 125 mg/Sodium Chloride 110 ml @ 110 mls/hr Q24H IVPB Last administered on 08/11/16 17:34; Admin Dose 110 MLS/HR; Start at 16:30; Stop 08/13/16 at 17:29 Colistimethate Sodium/Sodium Chloride (Coly-Mycin/NS) 100 ml @ 200 mls/hr Q12 IVPB Last administered on 08/12/16 09:02; Admin Dose 200 MLS/HR; Start at 11:30 Levothyroxine Sodium (Synthroid) 25 mcg DAILY@06 PO Last administered on 05:49; Admin Dose 25 MCG; Start 08/11/16 at 06:00 Docusate Sodium (Colace Liquid Cup) 100 mg Q12 GTB Last administered on 08:42; Admin Dose 100 MG; Start 08/11/16 at 10:30 Paroxetine HCl (Paxil) 10 mg DAILY PO Last administered on 08/12/16 08:45; Admin Dose 10 MG; Start 08/11/16 at 21:00 ELOY PELAEZ NP Aug 12, 2016 15:23
[2016-08-12] MEDS: SOD FERRIC GLUC COMPLX 125 MG in SOD CHLORIDE 0.9% 100 ML IVPB SCH (15:53)
[2016-08-12] MEDS: HYDROCODONE/APAP (5/325) TAB PEG PRN (17:54)
--- NOTE | 2016-08-12 20:54 | RADRPT ---
PROCEDURE: CT Cervical Spine. CLINICAL INDICATION: Chronic neuropathy. History of C2 fracture status post surgery. TECHNIQUE: A CT of the cervical spine was performed on a [employer] 64-slice CT scanner utilizi ng high-resolution axial imaging from the skull base through the cervical thoracic junction. Sagitt al, coronal, and multiplanar reformatted images were made. CTD I: 22.33 mGy and DLP: 577.49 mGy-cm One or more of the following dose reduction techniques were used: Automated exposure control. Adjustment of the mA and/or kV according to patient size. Use of iterative reconstruction technique. COMPARISON: None FINDINGS: There are postsurgical changes of occiput to C5 posterior fusion with bilateral pedicle screws skipp ing the right C1 lateral mass. Posterolateral osseous graft is in place. There is displaced fractur e of bilateral pars interarticularis involving the superior articular facets of the C2. There is tr irwin anterolisthesis of C2 on C3. There is no acute fracture or traumatic subluxation. The craniocer vical junction is unremarkable. Tracheostomy is in place. There is dilated bronchi in the atelectat ic right lung apex. C2-C3: There is trace anterolisthesis. There is mild narrowing of the anterior disk space. The becca tral canal and bilateral neural foramina are adequately patent. C3-C4: The disk height is maintained. The central canal and bilateral neural foramen are adequatel y patent. C4-C5: There is mild disk height loss. There is small left posterolateral disk osteophyte protrusi on with minimal facet arthropathy. The central canal and bilateral neural foramina are adequately p atent. C5-C6: There is mild disk height loss. There is a right paracentral/foraminal broad-based disk pro trusion with prominent left uncovertebral spurring and mild left facet arthropathy. There is modera te to severe left and mild right neural foraminal stenosis. C6-C7: There is mild to moderate disk height loss with discogenic endplate changes. Disk osteophyt e complex, prominent left-sided uncovertebral spurring are seen at this level. There is moderate le ft neural foraminal stenosis. The central canal and right neural foramen are adequately patent. C7-T1: The disk height is maintained. The central canal and bilateral neural foramina are adequate ly patent. IMPRESSION: 1. Status post occiput to C5 posterior fusion with posterolateral osseous graft. Intact hardware in appropriate position. 2. Trace anterolisthesis of C2 on C3 related to displaced fracture of bilateral pars interarticulari s of the C2. 3. Moderate to severe left neural foraminal stenosis at C5-C6 and C6-C7 primarily related to promin ent left-sided uncovertebral spurring. The remainder as above. RPTAT: HHO .Casie Hawkins MD, MD Date Time Electronically viewed and signed by .Casie Hawkins MD, on 08/12/2016 20:53 .O/
[2016-08-12] MEDS: HYDROmorphONE 1 MG/ML SYG IV PRN (22:44)
[2016-08-13] VITALS (24 sets, daily range): BP systolic 100–131; BP diastolic 56–74; PULSE 100–118; RESP 18–24
--- NOTE | 2016-08-13 02:22 | OPR ---
DATE OF OPERATION: 08/12/2016 REQUESTING PHYSICIAN: Dr. Albarran, hospitalist. CONSULTING SERVICE: Neurosurgery. HISTORY OF PRESENT ILLNESS: This is a 46-year-old male status post trauma who apparently sustained a higher cervical fracture reported to be some type of C2 fracture, resulting upper cervical cord quadriplegia approximately 3 months ago at another facility. The medical records from that facility are not available for my review, but apparently subsequent to the trauma, the patient has been quadriplegic, ventilator dependent with a tracheostomy in place. The patient also has great difficulty speaking with a very low voice , who was being treated at [facility] where he was brought to [facility] approximately 2 weeks ago septic. The patient was thought to have pneumonia as well as worsening of his decubitus ulcer with a wound VAC in place. The patient is being treated and his sepsis seems to have resolved; however, neurosurgery is being consulted because the patient still remains in an Lennox cervical collar. He was told by the operating surgeon that apparently he would only need to wear the Lennox collar for about 2 to 3 months and then subsequently it could be removed. Unfortunately, the name of the operating surgeon is not available or the name of the facility where the operation was done, and I am asked to determine whether the Lennox collar can be removed. At my request, CT of the cervical spine has been obtained. The patient is not really able to provide any further history due to his difficulty speaking, but based on the medical records, it does not appear that the patient has had any improvement of his quadriplegia over time. PAST MEDICAL HISTORY: As noted above. PAST SURGICAL HISTORY: Status post tracheostomy, gastrostomy, and posterior cervical fusion and stabilization. SOCIAL HISTORY: The patient is living at [facility]. He was a former smoker. He does not drink alcoholic beverages. He does not use illicit or recreational drugs. ALLERGIES: NO KNOWN DRUG ALLERGIES. MEDICATIONS: The patient's medications have been reviewed in the chart. REVIEW OF SYSTEMS: Cannot be really obtained due to difficulty communicating with the patient. PHYSICAL EXAMINATION: The patient is seen at bedside. He has a tracheostomy in place on the ventilator. There is a gastrostomy tube in place. He is wearing an Lennox collar. The patient is able to open his eyes. He looks around. His extraocular movements seem to be intact. Pupils are equally round and reactive to light. The patient is able to follow commands by blinking, by the sticking out his tongue. He is also able to say a few words, although with a very low voice. He is unable to move his upper or lower extremities. Muscle bulk seems to be normal, bilateral upper and lower extremities. Muscle tone is increased, bilateral upper and lower extremities. Motor strength: The patient is unable to move his upper or lower extremities proximally or distally. IMAGING: The patient has a CT of the cervical spine that shows evidence of occiput to C5 posterior instrumentation. There is also what appears to be bone graft in the gutters from C1 down to C5. The hardware seems to be intact and in place. There is a C2 pars fracture noted. There is no significant subluxation or other types of fracture noted. There is a possible fracture through the odontoid, although it seems to have healed, if it was, in fact, a fracture, several months ago. The spinal cord cannot be visualized as this is a CT. ASSESSMENT AND PLAN: This is a very unfortunate young male status post trauma to his neck, resulting in a reported upper cervical fracture with upper cervical quadriplegia, ventilator dependent. At this point, the patient's occiput to C5 posterior instrumentation and fusion seems to be intact. Since the patient does not really move much in bed, at this point it would be safe to remove his Lennox collar. There is no acute neurosurgical intervention indicated. I would still recommend that the patient receive as much physical therapy as possible in the hospital and once he is discharged back to the [facility]. The patient should follow up with his operating surgeon for serial imaging studies of his neck and further followups. Dictated By: CELESTINE VILLARREAL MD, SA/SCOTTIE Conf#: [id number] DID#: [id number] MAME
[2016-08-13] MEDS: ZOLPIDEM 5 MG TAB PEG PRN (02:57)
[2016-08-13] MEDS: CA CARBONATE (250 MG/ML) 5ML CUP GTB SCH ×3 (02:57→21:52)
[2016-08-13 05:37] LABS: ADD SCAN DIFF NO
[2016-08-13 05:44] LABS: BASOPHILS % 0.2 % (0.0-2.0); EOSINOPHILS # 0.4 10^3/ul (0.0-0.5); EOSINOPHILS % 1.8 % (0.0-7.0); HEMATOCRIT 24.7 % (42.0-52.0); HEMOGLOBIN 7.7 g/dl (14.0-18.0); LYMPHOCYTES # 0.7 10^3/ul (0.8-2.9); LYMPHOCYTES % 3.7 % (15.0-51.0); MEAN CORPUSCULAR HEMOGLOBIN 25.8 pg (29.0-33.0); MEAN CORPUSCULAR HGB CONC 31.2 g/dl (32.0-37.0); MEAN CORPUSCULAR VOLUME 82.6 fl (82.0-101.0); MONOCYTE # 0.6 10^3/ul (0.3-0.9); MONOCYTES % 3.2 % (0.0-11.0); NEUTROPHIL # 17.5 10^3/ul (1.6-7.5); NEUTROPHILS % 86.5 % (39.0-77.0); PLATELET COUNT 390 10^3/UL (140-415); RED BLOOD COUNT 2.99 10^6/ul (4.70-6.10); RED CELL DISTRIBUTION WIDTH 17.1 % (11.5-14.5); WHITE BLOOD COUNT 20.3 10^3/ul (4.8-10.8)
[2016-08-13 06:00] LABS: POTASSIUM 3.9 mmol/L (3.5-5.1)
[2016-08-13] MEDS: INSULIN ASPART [NOVOLOG] 3 ML PEN SC SCH ×4 (06:00→17:25)
[2016-08-13 06:03] LABS: CREATININE 1.24 mg/dl (0.61-1.24)
[2016-08-13 06:04] LABS: CALCIUM 10.7 mg/dl (8.4-10.2)
[2016-08-13] MEDS: metroNIDAZOLE 500 MG TAB PO SCH ×3 (06:35→21:53)
[2016-08-13] MEDS: LEVOTHYROXINE 25 MCG TAB PO SCH (06:35)
--- NOTE | 2016-08-13 07:21 | PN ---
DATE: 08/12/2016 CARDIOLOGY FOLLOWUP SUBJECTIVE: Discussed with the staff. Rhythm strip was reviewed. The patient remains in sinus rhy thm. No new cardiac event. No reported chest pain or pressure. Status post tracheostomy, and stil l on the vent. MEDICATIONS: Reviewed as per medical reconciliation, personally reviewed. PHYSICAL EXAMINATION: VITAL SIGNS: Temperature 98.9, heart rate of 100, blood pressure 111/62, respiratory rate of 18. HEENT: Normocephalic, atraumatic. Pupils are equal. NECK: Status post tracheostomy. CARDIOVASCULAR: Regular rate and rhythm, systolic murmur. PULMONARY: With no wheezes anteriorly. GASTROINTESTINAL: Soft, nontender. EXTREMITIES: Positive ankle edema. NEUROLOGIC: Comfortably sleeping. PSYCHIATRIC: Appears to be calm. LABORATORY: WBC of 15.8, hemoglobin 8, platelets of 428. Sodium 135, potassium 4, BUN of 58, creat inine 1.24, glucose 104, mag is 1.7. ASSESSMENT AND PLAN: 1. Hypoxemic respiratory failure, status post tracheostomy, vent dependent. 2. Status post sepsis and urinary tract infection and decubitus ulcers, currently blood pressure goff s stabilized. 3. Cardiomyopathy. 4. Fluid overload, congestive heart failure/anasarca. 5. Malnutrition and low albumin level. 6. Anemia. RECOMMENDATIONS: Antibiotic management as per ID recommendation. We will continue respiratory care and monitor on telemetry closely. Diabetic control will be continued as well. Dr. Barrett will res [facility] tomorrow. Dictated By: JOSE MANUEL OCAMPO MD AV/NTS Conf#: [id number] DID#: [id number] CC: ALDO BRADEN MD;*EndCC*
[2016-08-13] MEDS: FAMOTIDINE 20 MG TAB GTB SCH ×2 (08:41→21:54)
[2016-08-13] MEDS: ZINC SULFATE 220 MG CAP GTB SCH (08:41)
[2016-08-13] MEDS: ASCORBIC ACID 500 MG TAB GTB SCH ×2 (08:41→21:53)
[2016-08-13] MEDS: SODIUM HYPOCHLORITE 1/40% 1L IRRIG IRR SCH ×2 (08:41→21:55)
[2016-08-13] MEDS: DOCUSATE SODIUM 10 MG/ML (10ML CUP) GTB SCH ×2 (08:41→21:52)
[2016-08-13] MEDS: ZYVOX 600 MG TAB PO SCH ×2 (08:42→21:53)
[2016-08-13] MEDS: FLUCONAZOLE 100 MG TAB PO SCH (08:42)
[2016-08-13] MEDS: CEFEPIME 1GM/50 ML (PMX) 50 ML IVPB SCH ×2 (08:42→21:52)
[2016-08-13] MEDS: LACTOBACILLUS CHEW TAB PO SCH ×3 (08:42→21:53)
[2016-08-13] MEDS: PAROXETINE 10 MG TAB PO SCH (08:42)
[2016-08-13] MEDS: MULTIVITAMINS THERAPEUTIC TAB PO SCH (08:42)
[2016-08-13] MEDS: COLISTIMETHATE 135 MG in SOD CHLORIDE 0.9% 100 ML IVPB SCH ×2 (08:42→21:52)
[2016-08-13] MEDS: metFORMIN 500 MG TAB PO SCH ×2 (08:42→21:53)
[2016-08-13] MEDS: SODIUM HYPOCHLORITE 0.125% 473 ML BTL IRR SCH ×2 (09:00→21:55)
[2016-08-13] MEDS: ACETAMINOPHEN 325 MG TAB PO PRN ×2 (11:04→21:53)
--- NOTE | 2016-08-13 12:35 | CONS ---
Date/Time of Note Date/Time of Note DATE: 08/13/16 TIME: 12:33 Assessment/Plan Assessment/Plan Chief Complaint/Hosp Course SUBJECTIVE: No events, lying comfortably in bed + fevers MICROBIOLOGY: Urine culture grew Addis albicans Pseudomonas aeruginosa. Wound culture growing multi-drug resistant Klebsiella pneumoniae and gram- negative rods and Enterococcus species. INDWELLINGS: Trach, PEG, Oliveira, left chest Port-A-Cath. ANTIMICROBIALS: 1. Colistin. 2. Zyvox. 3. Fluconazole. 4. Flagyl 5. Cefepime PHYSICAL EXAMINATION: GENERAL: Chronically ill-appearing, well-developed, middle-aged man who is lying comfortably in bed. HEENT: Head atraumatic, normocephalic. Sclerae anicteric. Buccal mucosa dry. CHEST: Rise symmetrical. Breath sounds diminished to bases. HEART: S1, S2. ABDOMEN: Soft, bowel tones present. EXTREMITIES: With trace edema. Left upper extremity more edematous. ASSESSMENT: 1. Sepsis with ongoing fevers. 2. Multiple decubitus with wound culture growing multi-drug resistant organisms. 3. Healthcare-associated pneumonia. 4. Multidrug resistant urinary tract infection. 5. History of Clostridium difficile colitis. 6. 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 7. Left chest Port-A-Cath. PLAN: Remains unchanged. Repeat bld cx negative, continue abx, aggressive pulmonary toilet, local wound care. Given persistent fevers recommend dc portacath. Pending bone scan DW staff Problems: Consultation Date/Type/Reason Admit Date/Time Jul 31, 2016 at 14:20 Initial Consult Date 08/02/16 Type of Consultation: ID Exam/Review of Systems Vital Signs Vitals Vital Signs Date Time Temp Pulse Resp B/P Pulse Ox O2 Delivery O2 Flow Rate FiO2 08/13/16 11:22 108 24 97 45 08/13/16 08:02 102.5 122/57 08/09/16 13:00 Mechanical Ventilator Intake and Output 08/12/16 08/12/16 08/13/16 15:00 23:00 07:00 Intake Total 1220 ml 1220 ml Output Total 2400 ml 1600 ml Balance -1180 ml -380 ml Results Result Diagram: 08/13/16 0520 08/13/16 0520 Results 24 hrs Laboratory Tests Test 08/12/16 13:36 08/12/16 17:06 08/13/16 01:02 08/13/16 05:20 Bedside Glucose 128 107 110 Anion Gap 14 Basophils # 0.0 Basophils % 0.2 Blood Urea Nitrogen 56 H C-Reactive Protein 14.5 H Calcium Level 10.7 H Carbon Dioxide Level 25 Chloride Level 102 Creatinine 1.24 Eosinophils # 0.4 Eosinophils % 1.8 Erythrocyte Sedimentation Rate 114 H Glucose Level 100 Hematocrit 24.7 L Hemoglobin 7.7 L Lymphocytes # 0.7 L Lymphocytes % 3.7 L Mean Corpuscular Hemoglobin 25.8 L Mean Corpuscular Hemoglobin Concent 31.2 L Mean Corpuscular Volume 82.6 Mean Platelet Volume 10.0 Monocytes # 0.6 Monocytes % 3.2 Neutrophils # 17.5 H Neutrophils % 86.5 H Nucleated Red Blood Cells # 0.0 Nucleated Red Blood Cells % 0.0 Platelet Count 390 Potassium Level 3.9 Red Blood Count 2.99 L Red Cell Distribution Width 17.1 H Sodium Level 137 White Blood Count 20.3 #H Test 08/13/16 06:34 08/13/16 11:11 Bedside Glucose 114 103 Medications Medications Current Medications Ondansetron HCl (Zofran Inj) 4 mg Q6H PRN IV NAUSEA AND/OR VOMITING; Start at 15:00 Acetaminophen (Tylenol Tab) 650 mg Q6H PRN PO PAIN LEVEL 1-3 OR FEVER Last administered on 08/13/16 11:04; Admin Dose 650 MG; Start 07/31/16 at 15:00 Morphine Sulfate (morphine) 2 mg Q4H PRN IV SEVERE PAIN LEVEL 7-10 Last administered on 08/02/16 20:59; Admin Dose 2 MG; Start 07/31/16 at 15:00 Magnesium Hydroxide (Milk Of Mag) 30 ml DAILY PRN PO CONSTIPATION; Start at 15:00 Sodium Biphosphate/ Sodium Phosphate (Fleet Enema) 133 ml DAILY PRN [place] CONSTIPATION; Start 07/31/16 at 15:00 Hydralazine HCl (Apresoline) 10 mg Q6H PRN IV ELEVATED BLOOD PRESSURE; Start at 15:00 Nitroglycerin (Nitroglycerin (Sl Tab) 0.4 Mg) 1 tab Q5M PRN SL ANGINA; Start at 15:00 Miscellaneous Information 1 ea NOTE XX ; Start 07/31/16 at 16:30 Glucose (Glutose) 15 gm Q15M PRN PO DECREASED GLUCOSE; Start 07/31/16 at 16:30 Glucose (Glutose) 22.5 gm Q15M PRN PO DECREASED GLUCOSE; Start 07/31/16 at 16: 30 Dextrose (D50w Syringe) 25 ml Q15M PRN IV DECREASED GLUCOSE; Start 07/31/16 at 16:30 Dextrose (D50w Syringe) 50 ml Q15M PRN IV DECREASED GLUCOSE; Start 07/31/16 at 16:30 Glucagon (Glucagen) 1 mg Q15M PRN IM DECREASED GLUCOSE; Start 07/31/16 at 16:30 Glucose (Glutose) 15 gm Q15M PRN BUCCAL DECREASED GLUCOSE; Start 07/31/16 at 16 :30 Sodium Hypochlorite (Dakin'S (1/4 Strength)) 1 applic BID IRR Last administered on 08/12/16 22:01; Admin Dose 1 APPLIC; Start 08/01/16 at 21:00 Calcium Carbonate (Ca Carbonate) 1,250 mg BID GTB Last administered on 08:41; Admin Dose 1,250 MG; Start 08/01/16 at 22:30 Acetaminophen/ Hydrocodone Bitart ([place] (5/325)) 1 tab Q4H PRN PEG MODERATE PAIN LEVEL 4-6 Last administered on 08/12/16 17:54; Admin Dose 1 TAB; Start 08/02/16 at 00:00 Lorazepam (Ativan) 0.5 mg Q4H PRN IV ANXIETY Last administered on 08/12/16 23: 52; Admin Dose 0.5 MG; Start 08/02/16 at 00:00 Zolpidem Tartrate (Ambien) 10 mg HS PRN PEG INSOMNIA Last administered on 02:57; Admin Dose 10 MG; Start 08/02/16 at 03:30 Fluconazole (Diflucan) 100 mg DAILY PO Last administered on 08/13/16 08:42; Admin Dose 100 MG; Start 08/02/16 at 12:30 Lactobacillus Acidoph/Bulgaricus (Floranex) 1 tab TID PO Last administered on 08:42; Admin Dose 1 TAB; Start 08/02/16 at 13:00 Ibuprofen (Motrin) 600 mg Q6H PRN PO PAIN OR TEMP ABOVE 38C Last administered on 08/11/16 21:29; Admin Dose 600 MG; Start 08/02/16 at 15:00 Zinc Sulfate (Zinc Sulfate) 220 mg DAILY GTB Last administered on 08/13/16 08: 41; Admin Dose 220 MG; Start 08/03/16 at 11:30 Multivitamins Therapeutic (Theragran) 1 tab DAILY PO Last administered on 08:42; Admin Dose 1 TAB; Start 08/03/16 at 11:30 Ascorbic Acid (Vitamin C) 500 mg BID GTB Last administered on 08/13/16 08:41; Admin Dose 500 MG; Start 08/03/16 at 11:30 Metronidazole (Flagyl) 500 mg Q8 PO Last administered on 08/13/16 06:35; Admin Dose 500 MG; Start 08/03/16 at 12:00 Sodium Hypochlorite (Dakin'S (Dilute 1/40%)) 1 applic BID IRR Last administered on 08/13/16 08:41; Admin Dose 1 APPLIC; Start 08/04/16 at 12:00 Hydromorphone HCl (Dilaudid) 0.5 mg Q8H PRN IV PAIN Last administered on 22:44; Admin Dose 0.5 MG; Start 08/04/16 at 12:00 Linezolid (Zyvox) 600 mg BID PO Last administered on 08/13/16 08:42; Admin Dose 600 MG; Start 08/05/16 at 21:00 Metformin HCl 500 mg 500 mg Q12 PO Last administered on 08/13/16 08:42; Admin Dose 500 MG; Start 08/08/16 at 21:00 Cefepime HCl 50 ml @ 100 mls/hr Q12 IVPB Last administered on 08/13/16 08:42 ; Admin Dose 100 MLS/HR; Start 08/08/16 at 16:00 Ferric Sodium Gluconate Complex 125 mg/Sodium Chloride 110 ml @ 110 mls/hr Q24H IVPB Last administered on 08/12/16 15:53; Admin Dose 110 MLS/HR; Start at 16:30; Stop 08/13/16 at 17:29 Colistimethate Sodium/Sodium Chloride (Coly-Mycin/NS) 100 ml @ 200 mls/hr Q12 IVPB Last administered on 08/13/16 08:42; Admin Dose 200 MLS/HR; Start at 11:30 Levothyroxine Sodium (Synthroid) 25 mcg DAILY@06 PO Last administered on 06:35; Admin Dose 25 MCG; Start 08/11/16 at 06:00 Docusate Sodium (Colace Liquid Cup) 100 mg Q12 GTB Last administered on 08:41; Admin Dose 100 MG; Start 08/11/16 at 10:30 Paroxetine HCl (Paxil) 10 mg DAILY PO Last administered on 08/13/16 08:42; Admin Dose 10 MG; Start 08/11/16 at 21:00 Insulin Aspart (Novolog Insulin Pen) NOVOLOG *MODERATE* ALGORI... Q6 SC ; Start 08/13/16 at 00:00 Famotidine (Pepcid) 20 mg Q12 GTB Last administered on 08/13/16 08:41; Admin Dose 20 MG; Start 08/13/16 at 09:00 LESLIE FERRARO NP Aug 13, 2016 12:34
--- NOTE | 2016-08-13 15:57 | CONS ---
Date/Time of Note Date/Time of Note DATE: 08/13/16 TIME: 15:55 Assessment/Plan Assessment/Plan Additional Assessment/Plan Sepsis Acute decompensated systolic congestive heart failure Sinus tachycardia C2 fracture and quadriplegic Respiratory failure Cardiomyopathy with ejection fraction 45-50% via echo on previous admission Decubiti -Patient with recurrent fevers. Undergoing sepsis workup and treatment. Blood pressure trend overall stable. Tachycardia likely secondary to sepsis and fever. No need for AV dong blocking agents at the current time. Consultation Date/Type/Reason Admit Date/Time Jul 31, 2016 at 14:20 Type of Consultation: cv 24 HR Interval Summary Free Text/Dictation Patient complains of fatigue, no new cardiac issues as per nursing staff Exam/Review of Systems Vital Signs Vitals Vital Signs Date Time Temp Pulse Resp B/P Pulse Ox O2 Delivery O2 Flow Rate FiO2 08/13/16 13:25 101 24 99 45 08/13/16 13:02 103.2 106/59 08/09/16 13:00 Mechanical Ventilator Intake and Output 08/12/16 08/12/16 08/13/16 14:59 22:59 06:59 Intake Total 1220 ml 1220 ml Output Total 2400 ml 1600 ml Balance -1180 ml -380 ml Exam Sleeping but arousable, answers questions appropriately but appears tired Neck: other (C-collar and tracheostomy) Respiratory: other (Coarse breath sounds bilaterally, no wheezing) Cardiovascular: other (S1-S2 heard), regular rate and rhythm Gastrointestinal: bowel sounds, non-tender, other (No guarding or grimacing with palpation), soft Extremities: edema, other (No cyanosis) Results Result Diagram: 08/13/16 0508/13/16 0520 Results 24 hrs Laboratory Tests Test 08/12/16 17:06 08/13/16 01:02 08/13/16 05:20 08/13/16 06:34 Bedside Glucose 107 110 114 Anion Gap 14 Basophils # 0.0 Basophils % 0.2 Blood Urea Nitrogen 56 H C-Reactive Protein 14.5 H Calcium Level 10.7 H Carbon Dioxide Level 25 Chloride Level 102 Creatinine 1.24 Eosinophils # 0.4 Eosinophils % 1.8 Erythrocyte Sedimentation Rate 114 H Glucose Level 100 Hematocrit 24.7 L Hemoglobin 7.7 L Lymphocytes # 0.7 L Lymphocytes % 3.7 L Mean Corpuscular Hemoglobin 25.8 L Mean Corpuscular Hemoglobin Concent 31.2 L Mean Corpuscular Volume 82.6 Mean Platelet Volume 10.0 Monocytes # 0.6 Monocytes % 3.2 Neutrophils # 17.5 H Neutrophils % 86.5 H Nucleated Red Blood Cells # 0.0 Nucleated Red Blood Cells % 0.0 Platelet Count 390 Potassium Level 3.9 Red Blood Count 2.99 L Red Cell Distribution Width 17.1 H Sodium Level 137 White Blood Count 20.3 #H Test 08/13/16 11:11 Bedside Glucose 103 Medications Medications Current Medications Ondansetron HCl (Zofran Inj) 4 mg Q6H PRN IV NAUSEA AND/OR VOMITING; Start at 15:00 Acetaminophen (Tylenol Tab) 650 mg Q6H PRN PO PAIN LEVEL 1-3 OR FEVER Last administered on 08/13/16 11:04; Admin Dose 650 MG; Start 07/31/16 at 15:00 Morphine Sulfate (morphine) 2 mg Q4H PRN IV SEVERE PAIN LEVEL 7-10 Last administered on 08/02/16 20:59; Admin Dose 2 MG; Start 07/31/16 at 15:00 Magnesium Hydroxide (Milk Of Mag) 30 ml DAILY PRN PO CONSTIPATION; Start at 15:00 Sodium Biphosphate/ Sodium Phosphate (Fleet Enema) 133 ml DAILY PRN [place] CONSTIPATION; Start 07/31/16 at 15:00 Hydralazine HCl (Apresoline) 10 mg Q6H PRN IV ELEVATED BLOOD PRESSURE; Start at 15:00 Nitroglycerin (Nitroglycerin (Sl Tab) 0.4 Mg) 1 tab Q5M PRN SL ANGINA; Start at 15:00 Miscellaneous Information 1 ea NOTE XX ; Start 07/31/16 at 16:30 Glucose (Glutose) 15 gm Q15M PRN PO DECREASED GLUCOSE; Start 07/31/16 at 16:30 Glucose (Glutose) 22.5 gm Q15M PRN PO DECREASED GLUCOSE; Start 07/31/16 at 16: 30 Dextrose (D50w Syringe) 25 ml Q15M PRN IV DECREASED GLUCOSE; Start 07/31/16 at 16:30 Dextrose (D50w Syringe) 50 ml Q15M PRN IV DECREASED GLUCOSE; Start 07/31/16 at 16:30 Glucagon (Glucagen) 1 mg Q15M PRN IM DECREASED GLUCOSE; Start 07/31/16 at 16:30 Glucose (Glutose) 15 gm Q15M PRN BUCCAL DECREASED GLUCOSE; Start 07/31/16 at 16 :30 Sodium Hypochlorite (Dakin'S (1/4 Strength)) 1 applic BID IRR Last administered on 08/12/16 22:01; Admin Dose 1 APPLIC; Start 08/01/16 at 21:00 Calcium Carbonate (Ca Carbonate) 1,250 mg BID GTB Last administered on 08:41; Admin Dose 1,250 MG; Start 08/01/16 at 22:30 Acetaminophen/ Hydrocodone Bitart ([place] (5/325)) 1 tab Q4H PRN PEG MODERATE PAIN LEVEL 4-6 Last administered on 08/12/16 17:54; Admin Dose 1 TAB; Start 08/02/16 at 00:00 Lorazepam (Ativan) 0.5 mg Q4H PRN IV ANXIETY Last administered on 08/12/16 23: 52; Admin Dose 0.5 MG; Start 08/02/16 at 00:00 Zolpidem Tartrate (Ambien) 10 mg HS PRN PEG INSOMNIA Last administered on 02:57; Admin Dose 10 MG; Start 08/02/16 at 03:30 Fluconazole (Diflucan) 100 mg DAILY PO Last administered on 08/13/16 08:42; Admin Dose 100 MG; Start 08/02/16 at 12:30 Lactobacillus Acidoph/Bulgaricus (Floranex) 1 tab TID PO Last administered on 13:11; Admin Dose 1 TAB; Start 08/02/16 at 13:00 Ibuprofen (Motrin) 600 mg Q6H PRN PO PAIN OR TEMP ABOVE 38C Last administered on 08/11/16 21:29; Admin Dose 600 MG; Start 08/02/16 at 15:00 Zinc Sulfate (Zinc Sulfate) 220 mg DAILY GTB Last administered on 08/13/16 08: 41; Admin Dose 220 MG; Start 08/03/16 at 11:30 Multivitamins Therapeutic (Theragran) 1 tab DAILY PO Last administered on 08:42; Admin Dose 1 TAB; Start 08/03/16 at 11:30 Ascorbic Acid (Vitamin C) 500 mg BID GTB Last administered on 08/13/16 08:41; Admin Dose 500 MG; Start 08/03/16 at 11:30 Metronidazole (Flagyl) 500 mg Q8 PO Last administered on 08/13/16 13:11; Admin Dose 500 MG; Start 08/03/16 at 12:00 Sodium Hypochlorite (Dakin'S (Dilute 1/40%)) 1 applic BID IRR Last administered on 08/13/16 08:41; Admin Dose 1 APPLIC; Start 08/04/16 at 12:00 Hydromorphone HCl (Dilaudid) 0.5 mg Q8H PRN IV PAIN Last administered on 22:44; Admin Dose 0.5 MG; Start 08/04/16 at 12:00 Linezolid (Zyvox) 600 mg BID PO Last administered on 08/13/16 08:42; Admin Dose 600 MG; Start 08/05/16 at 21:00 Metformin HCl 500 mg 500 mg Q12 PO Last administered on 08/13/16 08:42; Admin Dose 500 MG; Start 08/08/16 at 21:00 Cefepime HCl 50 ml @ 100 mls/hr Q12 IVPB Last administered on 08/13/16 08:42 ; Admin Dose 100 MLS/HR; Start 08/08/16 at 16:00 Ferric Sodium Gluconate Complex 125 mg/Sodium Chloride 110 ml @ 110 mls/hr Q24H IVPB Last administered on 08/12/16 15:53; Admin Dose 110 MLS/HR; Start at 16:30; Stop 08/13/16 at 17:29 Colistimethate Sodium/Sodium Chloride (Coly-Mycin/NS) 100 ml @ 200 mls/hr Q12 IVPB Last administered on 08/13/16 08:42; Admin Dose 200 MLS/HR; Start at 11:30 Levothyroxine Sodium (Synthroid) 25 mcg DAILY@06 PO Last administered on 06:35; Admin Dose 25 MCG; Start 08/11/16 at 06:00 Docusate Sodium (Colace Liquid Cup) 100 mg Q12 GTB Last administered on 08:41; Admin Dose 100 MG; Start 08/11/16 at 10:30 Paroxetine HCl (Paxil) 10 mg DAILY PO Last administered on 08/13/16 08:42; Admin Dose 10 MG; Start 08/11/16 at 21:00 Insulin Aspart (Novolog Insulin Pen) NOVOLOG *MODERATE* ALGORI... Q6 SC ; Start 08/13/16 at 00:00 Famotidine (Pepcid) 20 mg Q12 GTB Last administered on 08/13/16 08:41; Admin Dose 20 MG; Start 08/13/16 at 09:00 Kb Barrett DO Aug 13, 2016 15:57
[2016-08-13] MEDS: SOD FERRIC GLUC COMPLX 125 MG in SOD CHLORIDE 0.9% 100 ML IVPB SCH (17:14)
--- NOTE | 2016-08-13 18:18 | RADRPT ---
PROCEDURE: XR Chest. CLINICAL INDICATION: Shortness of breath. TECHNIQUE: Single frontal view. COMPARISON: 08/11/2016. FINDINGS: The tracheostomy tube and left internal jugular vein implanted port central venous catheter remain i n satisfactory position. Air space disease at the lung bases and bilateral pleural effusions are un changed. The heart size is normal. There is no pneumothorax. IMPRESSION: 1. No change from 08/11/2016. RPTAT: QQ .Bryce Lee MD, MD Date Time Electronically viewed and signed by .Bryce Lee MD, MD on 08/13/2016 18:17 .R/
--- NOTE | 2016-08-13 19:43 | PN ---
Date/Time of Note Date/Time of Note DATE: 08/13/16 TIME: 19:38 Assessment/Plan VTE Prophylaxis VTE Prophylaxis Intervention: SCD's Lines/Catheters IV Catheter Type (from Nrs): PORTACATH Assessment/Plan Chief Complaint/Hosp Course 1. Sepsis - sec to resp infection+ UTI + decubitus ulcer infx Continue antibiotics WBC scan and then bone scan based on results to evaluate for osteomyelitis 2. Chronic respiratory failure,Vent dependent via trach 3. Recurrent Multifocal bronchitis/bronchiolitis/bronchopneumonia 4. Chronic Dysphagia currently on G-tube feeds. 2/2 #5 5. C2 fracture 2/ fall in April 2016 + chronic neuropathy with cervical collar Per patient he was meant to have collar only for 4months, neurosurgery consultation appreciated collar now removed 6. Multiple infected decubiti down to the bone Continue antibiotics Per surgery, Patient needs diverting colostomy but was having cardiac issues and is still mildly septic, awaiting stabilization 7. Anemia of chronic disease 8. DM 2 with suboptimal control: stable on metformin 9. Cardiomyopathy with ejection fraction 45-50% via echo on previous admission 10. Pseudomonas / Addis UTI 11. New Hypothyroidism 12. Probable Depression : patient refusing turning and wound care / started on Paxil Prophylaxis: H2 pam / SCDs Problems: Subjective 24 Hr Interval Summary Constitutional: no complaints Exam/Review of Systems Vital Signs Vitals Vital Signs Date Time Temp Pulse Resp B/P Pulse Ox O2 Delivery O2 Flow Rate FiO2 08/13/16 17:30 110 24 99 45 08/13/16 16:51 99.0 118/73 08/09/16 13:00 Mechanical Ventilator Intake and Output 08/12/16 08/12/16 08/13/16 15:00 23:00 07:00 Intake Total 150 ml 1220 ml 1220 ml Output Total 2400 ml 1600 ml Balance 150 ml -1180 ml -380 ml Exam Constitutional: alert Respiratory: clear to auscultation Cardiovascular: regular rate and rhythm Gastrointestinal: soft, No distended Musculoskeletal: nl extremities to inspection Results Result Diagram: 08/13/16 0520 08/13/16 0520 Results 24 hrs Laboratory Tests Test 08/13/16 01:02 08/13/16 05:20 08/13/16 06:34 08/13/16 11:11 Bedside Glucose 110 114 103 Anion Gap 14 Basophils # 0.0 Basophils % 0.2 Blood Urea Nitrogen 56 H C-Reactive Protein 14.5 H Calcium Level 10.7 H Carbon Dioxide Level 25 Chloride Level 102 Creatinine 1.24 Eosinophils # 0.4 Eosinophils % 1.8 Erythrocyte Sedimentation Rate 114 H Glucose Level 100 Hematocrit 24.7 L Hemoglobin 7.7 L Lymphocytes # 0.7 L Lymphocytes % 3.7 L Mean Corpuscular Hemoglobin 25.8 L Mean Corpuscular Hemoglobin Concent 31.2 L Mean Corpuscular Volume 82.6 Mean Platelet Volume 10.0 Monocytes # 0.6 Monocytes % 3.2 Neutrophils # 17.5 H Neutrophils % 86.5 H Nucleated Red Blood Cells # 0.0 Nucleated Red Blood Cells % 0.0 Platelet Count 390 Potassium Level 3.9 Red Blood Count 2.99 L Red Cell Distribution Width 17.1 H Sodium Level 137 White Blood Count 20.3 #H Test 08/13/16 17:16 Bedside Glucose 143 Medications Medications Current Medications Ondansetron HCl (Zofran Inj) 4 mg Q6H PRN IV NAUSEA AND/OR VOMITING; Start at 15:00 Acetaminophen (Tylenol Tab) 650 mg Q6H PRN PO PAIN LEVEL 1-3 OR FEVER Last administered on 08/13/16 11:04; Admin Dose 650 MG; Start 07/31/16 at 15:00 Morphine Sulfate (morphine) 2 mg Q4H PRN IV SEVERE PAIN LEVEL 7-10 Last administered on 08/02/16 20:59; Admin Dose 2 MG; Start 07/31/16 at 15:00 Magnesium Hydroxide (Milk Of Mag) 30 ml DAILY PRN PO CONSTIPATION; Start at 15:00 Sodium Biphosphate/ Sodium Phosphate (Fleet Enema) 133 ml DAILY PRN [place] CONSTIPATION; Start 07/31/16 at 15:00 Hydralazine HCl (Apresoline) 10 mg Q6H PRN IV ELEVATED BLOOD PRESSURE; Start at 15:00 Nitroglycerin (Nitroglycerin (Sl Tab) 0.4 Mg) 1 tab Q5M PRN SL ANGINA; Start at 15:00 Miscellaneous Information 1 ea NOTE XX ; Start 07/31/16 at 16:30 Glucose (Glutose) 15 gm Q15M PRN PO DECREASED GLUCOSE; Start 07/31/16 at 16:30 Glucose (Glutose) 22.5 gm Q15M PRN PO DECREASED GLUCOSE; Start 07/31/16 at 16: 30 Dextrose (D50w Syringe) 25 ml Q15M PRN IV DECREASED GLUCOSE; Start 07/31/16 at 16:30 Dextrose (D50w Syringe) 50 ml Q15M PRN IV DECREASED GLUCOSE; Start 07/31/16 at 16:30 Glucagon (Glucagen) 1 mg Q15M PRN IM DECREASED GLUCOSE; Start 07/31/16 at 16:30 Glucose (Glutose) 15 gm Q15M PRN BUCCAL DECREASED GLUCOSE; Start 07/31/16 at 16 :30 Sodium Hypochlorite (Dakin'S (1/4 Strength)) 1 applic BID IRR Last administered on 08/12/16 22:01; Admin Dose 1 APPLIC; Start 08/01/16 at 21:00 Calcium Carbonate (Ca Carbonate) 1,250 mg BID GTB Last administered on 08:41; Admin Dose 1,250 MG; Start 08/01/16 at 22:30 Acetaminophen/ Hydrocodone Bitart ([place] (5/325)) 1 tab Q4H PRN PEG MODERATE PAIN LEVEL 4-6 Last administered on 08/12/16 17:54; Admin Dose 1 TAB; Start 08/02/16 at 00:00 Lorazepam (Ativan) 0.5 mg Q4H PRN IV ANXIETY Last administered on 08/12/16 23: 52; Admin Dose 0.5 MG; Start 08/02/16 at 00:00 Zolpidem Tartrate (Ambien) 10 mg HS PRN PEG INSOMNIA Last administered on 02:57; Admin Dose 10 MG; Start 08/02/16 at 03:30 Fluconazole (Diflucan) 100 mg DAILY PO Last administered on 08/13/16 08:42; Admin Dose 100 MG; Start 08/02/16 at 12:30 Lactobacillus Acidoph/Bulgaricus (Floranex) 1 tab TID PO Last administered on 13:11; Admin Dose 1 TAB; Start 08/02/16 at 13:00 Ibuprofen (Motrin) 600 mg Q6H PRN PO PAIN OR TEMP ABOVE 38C Last administered on 08/11/16 21:29; Admin Dose 600 MG; Start 08/02/16 at 15:00 Zinc Sulfate (Zinc Sulfate) 220 mg DAILY GTB Last administered on 08/13/16 08: 41; Admin Dose 220 MG; Start 08/03/16 at 11:30 Multivitamins Therapeutic (Theragran) 1 tab DAILY PO Last administered on 08:42; Admin Dose 1 TAB; Start 08/03/16 at 11:30 Ascorbic Acid (Vitamin C) 500 mg BID GTB Last administered on 08/13/16 08:41; Admin Dose 500 MG; Start 08/03/16 at 11:30 Metronidazole (Flagyl) 500 mg Q8 PO Last administered on 08/13/16 13:11; Admin Dose 500 MG; Start 08/03/16 at 12:00 Sodium Hypochlorite (Dakin'S (Dilute 1/40%)) 1 applic BID IRR Last administered on 08/13/16 08:41; Admin Dose 1 APPLIC; Start 08/04/16 at 12:00 Hydromorphone HCl (Dilaudid) 0.5 mg Q8H PRN IV PAIN Last administered on 22:44; Admin Dose 0.5 MG; Start 08/04/16 at 12:00 Linezolid (Zyvox) 600 mg BID PO Last administered on 08/13/16 08:42; Admin Dose 600 MG; Start 08/05/16 at 21:00 Metformin HCl 500 mg 500 mg Q12 PO Last administered on 08/13/16 08:42; Admin Dose 500 MG; Start 08/08/16 at 21:00 Cefepime HCl 50 ml @ 100 mls/hr Q12 IVPB Last administered on 08/13/16 08:42 ; Admin Dose 100 MLS/HR; Start 08/08/16 at 16:00 Colistimethate Sodium/Sodium Chloride (Coly-Mycin/NS) 100 ml @ 200 mls/hr Q12 IVPB Last administered on 08/13/16 08:42; Admin Dose 200 MLS/HR; Start at 11:30 Levothyroxine Sodium (Synthroid) 25 mcg DAILY@06 PO Last administered on 06:35; Admin Dose 25 MCG; Start 08/11/16 at 06:00 Docusate Sodium (Colace Liquid Cup) 100 mg Q12 GTB Last administered on 08:41; Admin Dose 100 MG; Start 08/11/16 at 10:30 Paroxetine HCl (Paxil) 10 mg DAILY PO Last administered on 08/13/16 08:42; Admin Dose 10 MG; Start 08/11/16 at 21:00 Insulin Aspart (Novolog Insulin Pen) NOVOLOG *MODERATE* ALGORI... Q6 SC Last administered on 08/13/16 17:25; Admin Dose 2 UNIT; Start 08/13/16 at 00:00 Famotidine (Pepcid) 20 mg Q12 GTB Last administered on 08/13/16 08:41; Admin Dose 20 MG; Start 08/13/16 at 09:00 JAMISON STANTON Aug 13, 2016 19:43
[2016-08-13] MEDS: ALBUTEROL/IPRATROPIUM (NEB) 3 ML AMP HHN PRN (20:22)
[2016-08-13] MEDS: HYDROmorphONE 1 MG/ML SYG IV PRN (22:42)
[2016-08-14] VITALS (24 sets, daily range): BP systolic 92–108; BP diastolic 51–59; PULSE 94–100; RESP 17–24
[2016-08-14] MEDS: metroNIDAZOLE 500 MG TAB PO SCH ×3 (05:47→20:36)
[2016-08-14] MEDS: LEVOTHYROXINE 25 MCG TAB PO SCH (05:48)
[2016-08-14] MEDS: INSULIN ASPART [NOVOLOG] 3 ML PEN SC SCH ×4 (05:48→18:00)
[2016-08-14] MEDS: LORAZEPAM 2 MG INJ IV PRN ×4 (05:58→20:06)
[2016-08-14 07:32] LABS: ADD SCAN DIFF NO
[2016-08-14 07:35] LABS: ABNORMAL IP MESSAGE 1; BASOPHILS % 0.2 % (0.0-2.0); EOSINOPHILS # 0.3 10^3/ul (0.0-0.5); EOSINOPHILS % 1.7 % (0.0-7.0); HEMATOCRIT 24.3 % (42.0-52.0); HEMOGLOBIN 7.5 g/dl (14.0-18.0); LYMPHOCYTES # 0.7 10^3/ul (0.8-2.9); LYMPHOCYTES % 4.3 % (15.0-51.0); MEAN CORPUSCULAR HEMOGLOBIN 25.7 pg (29.0-33.0); MEAN CORPUSCULAR HGB CONC 30.9 g/dl (32.0-37.0); MEAN CORPUSCULAR VOLUME 83.2 fl (82.0-101.0); MEAN PLATELET VOLUME 9.5 fl (7.4-10.4); MONOCYTE # 0.7 10^3/ul (0.3-0.9); MONOCYTES % 3.9 % (0.0-11.0); NEUTROPHIL # 14.1 10^3/ul (1.6-7.5); NEUTROPHILS % 84.3 % (39.0-77.0); PLATELET COUNT 319 10^3/UL (140-415); RED BLOOD COUNT 2.92 10^6/ul (4.70-6.10); RED CELL DISTRIBUTION WIDTH 17.2 % (11.5-14.5); WHITE BLOOD COUNT 16.7 10^3/ul (4.8-10.8)
[2016-08-14 07:48] LABS: POTASSIUM 3.5 mmol/L (3.5-5.1)
[2016-08-14 07:50] LABS: CREATININE 1.18 mg/dl (0.61-1.24)
[2016-08-14 07:51] LABS: CALCIUM 10.8 mg/dl (8.4-10.2)
[2016-08-14] MEDS: DOCUSATE SODIUM 10 MG/ML (10ML CUP) GTB SCH ×2 (09:00→21:00)
[2016-08-14] MEDS: LACTOBACILLUS CHEW TAB PO SCH ×3 (09:18→20:36)
[2016-08-14] MEDS: metFORMIN 500 MG TAB PO SCH ×2 (09:19→20:36)
[2016-08-14] MEDS: ZYVOX 600 MG TAB PO SCH ×2 (09:19→20:36)
[2016-08-14] MEDS: ASCORBIC ACID 500 MG TAB GTB SCH ×2 (09:19→20:36)
[2016-08-14] MEDS: FLUCONAZOLE 100 MG TAB PO SCH (09:19)
[2016-08-14] MEDS: PAROXETINE 10 MG TAB PO SCH (09:21)
[2016-08-14] MEDS: FAMOTIDINE 20 MG TAB GTB SCH ×2 (09:21→21:00)
[2016-08-14] MEDS: CEFEPIME 1GM/50 ML (PMX) 50 ML IVPB SCH ×2 (09:21→20:35)
[2016-08-14] MEDS: CA CARBONATE (250 MG/ML) 5ML CUP GTB SCH ×2 (09:21→20:36)
[2016-08-14] MEDS: ZINC SULFATE 220 MG CAP GTB SCH (09:21)
[2016-08-14] MEDS: MULTIVITAMINS THERAPEUTIC TAB PO SCH (09:21)
[2016-08-14] MEDS: SODIUM HYPOCHLORITE 0.125% 473 ML BTL IRR SCH ×2 (09:22→21:00)
[2016-08-14] MEDS: SODIUM HYPOCHLORITE 1/40% 1L IRRIG IRR SCH ×2 (09:23→23:18)
[2016-08-14] MEDS: COLISTIMETHATE 135 MG in SOD CHLORIDE 0.9% 100 ML IVPB SCH ×2 (10:16→23:18)
[2016-08-14] MEDS ORDERED: MAGNESIUM SULFATE 4 GM/100 ML 100 ML IVPB SCH (12:30)
[2016-08-14] MEDS: HYDROmorphONE 1 MG/ML SYG IV PRN ×2 (14:36→20:06)
--- NOTE | 2016-08-14 14:50 | CONS ---
Date/Time of Note Date/Time of Note DATE: 08/14/16 TIME: 14:47 Assessment/Plan Assessment/Plan Additional Assessment/Plan Sepsis Acute decompensated systolic congestive heart failure Sinus tachycardia C2 fracture and quadriplegic Respiratory failure Cardiomyopathy with ejection fraction 45-50% via echo on previous admission Decubiti -Patient undergoing sepsis workup. Heart rate has improved since being afebrile. No new cardiac orders at the current time Consultation Date/Type/Reason Admit Date/Time Jul 31, 2016 at 14:20 Type of Consultation: cv 24 HR Interval Summary Free Text/Dictation Patient feeling better today. Shortness of breath has improved. Exam/Review of Systems Vital Signs Vitals Vital Signs Date Time Temp Pulse Resp B/P Pulse Ox O2 Delivery O2 Flow Rate FiO2 08/14/16 14:36 66 24 98 45 08/14/16 11:43 98.9 97/56 Intake and Output 08/13/16 08/13/16 08/14/16 15:00 23:00 07:00 Intake Total 150 ml 880 ml 1100 ml Output Total 1300 ml 1900 ml Balance 150 ml -420 ml -800 ml Exam Appears fatigued, no apparent distress Constitutional: alert Neck: other (C-collar and tracheostomy) Respiratory: other (Coarse breath sounds bilaterally with scattered rhonchi) Cardiovascular: other (S1-S2 heard), regular rate and rhythm Gastrointestinal: bowel sounds, non-tender, other (No guarding or grimacing), soft Extremities: edema, other (No cyanosis) Results Result Diagram: 08/14/16 0720 08/14/16 0725 Results 24 hrs Laboratory Tests Test 08/13/16 17:16 08/13/16 23:48 08/14/16 05:47 08/14/16 07:20 Bedside Glucose 143 114 108 Basophils # 0.0 Basophils % 0.2 Eosinophils # 0.3 Eosinophils % 1.7 Hematocrit 24.3 L Hemoglobin 7.5 L Lymphocytes # 0.7 L Lymphocytes % 4.3 L Magnesium Level 1.5 L Mean Corpuscular Hemoglobin 25.7 L Mean Corpuscular Hemoglobin Concent 30.9 L Mean Corpuscular Volume 83.2 Mean Platelet Volume 9.5 Monocytes # 0.7 Monocytes % 3.9 Neutrophils # 14.1 H Neutrophils % 84.3 H Nucleated Red Blood Cells # 0.0 Nucleated Red Blood Cells % 0.0 Platelet Count 319 Red Blood Count 2.92 L Red Cell Distribution Width 17.2 H White Blood Count 16.7 H Test 08/14/16 07:25 08/14/16 13:17 Anion Gap 15 Blood Urea Nitrogen 52 H Calcium Level 10.8 H Carbon Dioxide Level 25 Chloride Level 100 Creatinine 1.18 Glucose Level 92 Potassium Level 3.5 Sodium Level 136 Bedside Glucose 141 Medications Medications Current Medications Ondansetron HCl (Zofran Inj) 4 mg Q6H PRN IV NAUSEA AND/OR VOMITING; Start at 15:00 Acetaminophen (Tylenol Tab) 650 mg Q6H PRN PO PAIN LEVEL 1-3 OR FEVER Last administered on 08/13/16 21:53; Admin Dose 650 MG; Start 07/31/16 at 15:00 Morphine Sulfate (morphine) 2 mg Q4H PRN IV SEVERE PAIN LEVEL 7-10 Last administered on 08/02/16 20:59; Admin Dose 2 MG; Start 07/31/16 at 15:00 Magnesium Hydroxide (Milk Of Mag) 30 ml DAILY PRN PO CONSTIPATION; Start at 15:00 Sodium Biphosphate/ Sodium Phosphate (Fleet Enema) 133 ml DAILY PRN [place] CONSTIPATION; Start 07/31/16 at 15:00 Hydralazine HCl (Apresoline) 10 mg Q6H PRN IV ELEVATED BLOOD PRESSURE; Start at 15:00 Nitroglycerin (Nitroglycerin (Sl Tab) 0.4 Mg) 1 tab Q5M PRN SL ANGINA; Start at 15:00 Miscellaneous Information 1 ea NOTE XX ; Start 07/31/16 at 16:30 Glucose (Glutose) 15 gm Q15M PRN PO DECREASED GLUCOSE; Start 07/31/16 at 16:30 Glucose (Glutose) 22.5 gm Q15M PRN PO DECREASED GLUCOSE; Start 07/31/16 at 16: 30 Dextrose (D50w Syringe) 25 ml Q15M PRN IV DECREASED GLUCOSE; Start 07/31/16 at 16:30 Dextrose (D50w Syringe) 50 ml Q15M PRN IV DECREASED GLUCOSE; Start 07/31/16 at 16:30 Glucagon (Glucagen) 1 mg Q15M PRN IM DECREASED GLUCOSE; Start 07/31/16 at 16:30 Glucose (Glutose) 15 gm Q15M PRN BUCCAL DECREASED GLUCOSE; Start 07/31/16 at 16 :30 Sodium Hypochlorite (Dakin'S (1/4 Strength)) 1 applic BID IRR Last administered on 08/14/16 09:22; Admin Dose 1 APPLIC; Start 08/01/16 at 21:00 Calcium Carbonate (Ca Carbonate) 1,250 mg BID GTB Last administered on 09:21; Admin Dose 1,250 MG; Start 08/01/16 at 22:30 Acetaminophen/ Hydrocodone Bitart ([place] (5/325)) 1 tab Q4H PRN PEG MODERATE PAIN LEVEL 4-6 Last administered on 08/12/16 17:54; Admin Dose 1 TAB; Start 08/02/16 at 00:00 Lorazepam (Ativan) 0.5 mg Q4H PRN IV ANXIETY Last administered on 08/14/16 10: 16; Admin Dose 0.5 MG; Start 08/02/16 at 00:00 Zolpidem Tartrate (Ambien) 10 mg HS PRN PEG INSOMNIA Last administered on 02:57; Admin Dose 10 MG; Start 08/02/16 at 03:30 Fluconazole (Diflucan) 100 mg DAILY PO Last administered on 08/14/16 09:19; Admin Dose 100 MG; Start 08/02/16 at 12:30 Lactobacillus Acidoph/Bulgaricus (Floranex) 1 tab TID PO Last administered on 13:14; Admin Dose 1 TAB; Start 08/02/16 at 13:00 Ibuprofen (Motrin) 600 mg Q6H PRN PO PAIN OR TEMP ABOVE 38C Last administered on 08/11/16 21:29; Admin Dose 600 MG; Start 08/02/16 at 15:00 Zinc Sulfate (Zinc Sulfate) 220 mg DAILY GTB Last administered on 08/14/16 09: 21; Admin Dose 220 MG; Start 08/03/16 at 11:30 Multivitamins Therapeutic (Theragran) 1 tab DAILY PO Last administered on 09:21; Admin Dose 1 TAB; Start 08/03/16 at 11:30 Ascorbic Acid (Vitamin C) 500 mg BID GTB Last administered on 08/14/16 09:19; Admin Dose 500 MG; Start 08/03/16 at 11:30 Metronidazole (Flagyl) 500 mg Q8 PO Last administered on 08/14/16 13:14; Admin Dose 500 MG; Start 08/03/16 at 12:00 Sodium Hypochlorite (Dakin'S (Dilute 1/40%)) 1 applic BID IRR Last administered on 08/14/16 09:23; Admin Dose 1 APPLIC; Start 08/04/16 at 12:00 Hydromorphone HCl (Dilaudid) 0.5 mg Q8H PRN IV PAIN Last administered on 14:36; Admin Dose 0.5 MG; Start 08/04/16 at 12:00 Linezolid (Zyvox) 600 mg BID PO Last administered on 08/14/16 09:19; Admin Dose 600 MG; Start 08/05/16 at 21:00 Metformin HCl 500 mg 500 mg Q12 PO Last administered on 08/14/16 09:19; Admin Dose 500 MG; Start 08/08/16 at 21:00 Cefepime HCl 50 ml @ 100 mls/hr Q12 IVPB Last administered on 08/14/16 09:21 ; Admin Dose 100 MLS/HR; Start 08/08/16 at 16:00 Colistimethate Sodium/Sodium Chloride (Coly-Mycin/NS) 100 ml @ 200 mls/hr Q12 IVPB Last administered on 08/14/16 10:16; Admin Dose 200 MLS/HR; Start at 11:30 Levothyroxine Sodium (Synthroid) 25 mcg DAILY@06 PO Last administered on 05:48; Admin Dose 25 MCG; Start 08/11/16 at 06:00 Docusate Sodium (Colace Liquid Cup) 100 mg Q12 GTB Last administered on 21:52; Admin Dose 100 MG; Start 08/11/16 at 10:30 Paroxetine HCl (Paxil) 10 mg DAILY PO Last administered on 08/14/16 09:21; Admin Dose 10 MG; Start 08/11/16 at 21:00 Insulin Aspart (Novolog Insulin Pen) NOVOLOG *MODERATE* ALGORI... Q6 SC Last administered on 08/14/16 13:29; Admin Dose 2 UNIT; Start 08/13/16 at 00:00 Famotidine 20 mg 20 mg Q12 GTB Last administered on 08/14/16 09:21; Admin Dose 20 MG; Start 08/13/16 at 09:00 Magnesium Sulfate (Magnesium Sulfate 4 Gm/100 ml) 100 ml @ 25 mls/hr ONCE IVPB Last administered on 08/14/16 13:15; Admin Dose 25 MLS/HR; Start 08/14/16 at 12:30; Stop 08/14/16 at 16:29 Kb Barrett DO Aug 14, 2016 14:50
--- NOTE | 2016-08-14 14:54 | PN ---
DATE: 08/14/2016 SUBJECTIVE: Patient is a very complicated male with numerous problems. At this present time, he h as no specific complaints. He is afebrile. He has a trach, PEG, Oliveira, and left chest Port-A-Cath. He is growing multiple organisms from his various sites including Klebsiella pneumoniae carbapenam ase, Acinetobacter baumannii, vancomycin-resistant Enterococcus, Proteus from the decubitus ulcer on 08/03. His urine from 08/09 is growing Addis albicans. A chest x-ray does not show anything ext raordinary. He has tracheostomy, left internal jugular implanted port central venous catheter, air space disease at the lung bases, bilateral pleural effusions are unchanged. PHYSICAL EXAMINATION: As noted, he has multiple tubes. CHEST: Decreased breath sounds. HEART: Without murmur or gallop. ABDOMEN: Soft, nontender. SKIN: He has multiple decubitus ulcers, about 7 or 8 of them, which may be the source of his infect ion. He has an indium scan and a bone scan scheduled. I think a CT scan of his pelvis without contrast w ould be reasonable. As noted, the source of his sepsis is unclear. His C. difficile is negative. I will dictate my findings to the hospitalist. Dictated By: ROGE LESTER MD, JD/SCOTTIE Conf#: [id number] DID#: [id number]
[2016-08-14] MEDS ORDERED: MAGNESIUM SULFATE 2 GM/50 ML 50 ML IVPB ONE (15:30)
--- NOTE | 2016-08-14 15:32 | PN ---
DATE: 08/14/2016 SUBJECTIVE: Followup note for shortness of breath and ventilator management. This patient remains stable overnight, no new events. PHYSICAL EXAMINATION: VITAL SIGNS: Temperature 98, pulse is 66, blood pressure 97/55, O2 saturation 96%, FIO2 of 45%. NECK: Trach site clean and intact. CARDIAC: S1, S2, no added sounds or murmurs. CHEST: Diminished air entry bilaterally. ABDOMEN: Soft, nontender. No guarding or rebound. EXTREMITIES: No cyanosis, clubbing, or edema. NEUROLOGIC: Grossly intact. No focal deficits. LABORATORY DATA: White count 16.7, hemoglobin 7.5, platelets of 319, BUN 52, creatinine 1.18, mag i s 1.5. IMPRESSION AND PLAN: 1. Vent dependent respiratory failure currently stable. 2. History of heart failure. 3. History of C-spine fracture with quadriplegia. 4. History of cardiomyopathy. 5. Decubitus ulcers. PLAN: 1. Transfuse 1 unit packed red blood cells. 2. Continue wound care. 3. Continue antibiotics. 4. Start discharge planning. Dictated By: ABI SWANSON/SCOTTIE Conf#: [id number] DID#: [id number]
--- NOTE | 2016-08-14 16:13 | RADRPT ---
Echocardiogram Report Patient Name: ARTEMIO REID Gender: Male Date: 1970 Study Date: 14-Aug-2016 Stone Grader: Ambar Little [facility] Location: 529 Ref. Physician: KB BARRETT Quality: Good Procedures: Transthoracic echocardiogram with complete 2D, M-Mode, and doppler examination. Indications: Sepsis. 2D/M Mode Doppler Measurement Value Normal Ranges Measurement Value Normal Ranges LVIDd 2D 4.7 3.5 - 5.6 cm AV Peak Darren 1.4 m/sec LVIDs 2D 3.6 2.1 - 4.1 cm AV Peak PG 8.0 mmHg FS 2D 23.6 % LVOT Peak Darren 1.2 m/sec LVPWd 2D 1.0 0.6 - 1.1 cm LVOT Peak PG 6.0 mmHg IVSd 2D 1.0 0.6 - 1.1 cm MV E Peak Darren 0.5 m/sec IVS/LVPW 2D 1.0 MV A Peak Darren 0.7 m/sec AoR Diam 2D 3.3 2.0 - 3.7 cm MV E/A 0.7 LA/Ao 2D 1 0 - 1 MV Decel Time 113 msec EDV 2D 101.0 cm3 MV E/A 0.7 ESV 2D 45.1 cm3 TR Peak Darren 2.3 m/sec LA Dimen 2D 2.4 2.3 - 4.0 cm TR Peak PG 20.0 mmHg RVSP 28.0 mmHg Findings Left Ventricle: Lower limits of normal systolic function. Normal left ventricular cavity size. Normal left ventricular wall thickness. Ejection fraction is visually estimated at 50 %. Tissue Doppler/Mitral Doppler indices are consistent with impaired relaxation (Stage I diastolic dysfunction). Right Ventricle: Normal right ventricular size. Normal right ventricular systolic function. Left Atrium: The left atrium is normal in size. Right Atrium: The right atrium is normal in size. Mitral Valve: Mitral valve leaflets appear moderately thickened. Mild mitral leaflet calcification. Mild mitral annular calcification. Trace mitral regurgitation. Aortic Valve: Normal appearance of the aortic valve. No significant aortic stenosis or insufficiency. Tricuspid Valve: Normal appearance of the tricuspid valve. Estimated peak PA systolic pressure 28 mmHg. There is trace tricuspid regurgitation. Pulmonic Valve: Pulmonic valve not well visualized. Pericardium: Trivial pericardial effusion. Aorta: Normal aortic root. IVC: Inferior vena cava without respiratory collapse, however, patient on ventilator. Conclusions Lower limits of normal systolic function. Normal left ventricular cavity size. Normal left ventricular wall thickness. Ejection fraction is visually estimated at 50 %. Tissue Doppler/Mitral Doppler indices are consistent with impaired relaxation (Stage I diastolic dysfunction). Normal right ventricular size. Normal right ventricular systolic function. The left atrium is normal in size. The right atrium is normal in size. No significant valvular stenosis or regurgitation seen. Trivial pericardial effusion. No significant change compared to echo 05/10/2016. Electronically Signed By: Kb Barrett 14-Aug-2016 16:12:58 -0700 Patient Name: ARTEMIO REID Study Date: 14-Aug-[id number]
--- NOTE | 2016-08-14 17:00 | RADRPT ---
PROCEDURE: Nuclear medicine whole-body white blood cell scan CLINICAL INDICATION: Elevated white blood cell count. Fevers. Evaluate for spinal infection. TECHNIQUE: 0.45 mCi of Indium-111 labeled white blood cells was administered intravenously. Plana r imaging of the whole-body was performed in the anterior and posterior views. 24 uptake images wer e obtained. Spot images were obtained as well. Images were reviewed on the high resolution PACS [facility]. COMPARISON: None available FINDINGS: There is normal uptake throughout the whole-body white blood cell scan. Normal physiologic activity is seen within the reticuloendothelial system. No focus of abnormal increased activity is identifi ed to indicate abscess. The lungs are grossly unremarkable. Normal activity seen within the spine and pelvic bones and hips. IMPRESSION: 1. Negative whole body white blood cell scan. 2. No evidence for infectious process. 3. No evidence for infection of the spine and/or pelvis. RPTAT: HMJB .Hardy Polanco MD, Date Time Electronically viewed and signed by .Hardy Polanco MD, on 08/14/2016 17:00 .B/
--- NOTE | 2016-08-14 17:33 | PN ---
Date/Time of Note Date/Time of Note DATE: 08/14/16 TIME: 17:31 Assessment/Plan VTE Prophylaxis VTE Prophylaxis Intervention: SCD's Lines/Catheters IV Catheter Type (from Nrs): PORTACATH Assessment/Plan Chief Complaint/Hosp Course 1. Sepsis - sec to resp infection+ UTI + decubitus ulcer infx Continue antibiotics WBC scan is negative Follow up with ID recommendations 2. Chronic respiratory failure,Vent dependent via trach 3. Recurrent Multifocal bronchitis/bronchiolitis/bronchopneumonia 4. Chronic Dysphagia currently on G-tube feeds. / #5 5. C2 fracture 2/ fall in April 2016 + chronic neuropathy with cervical collar Per patient he was meant to have collar only for 4months, neurosurgery consultation appreciated collar now removed 6. Multiple infected decubiti down to the bone Continue antibiotics Per surgery, Patient needs diverting colostomy but was having cardiac issues and is still mildly septic, awaiting stabilization 7. Anemia of chronic disease 8. DM 2 with suboptimal control: stable on metformin 9. Cardiomyopathy with ejection fraction 45-50% via echo on previous admission 10. Pseudomonas / Addis UTI 11. New Hypothyroidism 12. Probable Depression : patient refusing turning and wound care / started on Paxil Disposal: Patient would like to go to back to the congreg[facility] living that he came from Prophylaxis: H2 pam / SCDs Problems: Subjective 24 Hr Interval Summary Constitutional: no complaints Exam/Review of Systems Vital Signs Vitals Vital Signs Date Time Temp Pulse Resp B/P Pulse Ox O2 Delivery O2 Flow Rate FiO2 08/14/16 16:00 100 08/14/16 15:59 24 100 45 08/14/16 11:43 98.9 97/56 Intake and Output 08/13/16 08/13/16 08/14/16 15:00 23:00 07:00 Intake Total 150 ml 880 ml 1100 ml Output Total 1300 ml 1900 ml Balance 150 ml -420 ml -800 ml Exam Constitutional: alert Respiratory: clear to auscultation Cardiovascular: regular rate and rhythm Gastrointestinal: soft, No distended Musculoskeletal: nl extremities to inspection Results Result Diagram: 08/14/16 0720 08/14/16 0725 Results 24 hrs Laboratory Tests Test 08/13/16 23:48 08/14/16 05:47 08/14/16 07:20 08/14/16 07:25 Bedside Glucose 114 108 Basophils # 0.0 Basophils % 0.2 Eosinophils # 0.3 Eosinophils % 1.7 Hematocrit 24.3 L Hemoglobin 7.5 L Lymphocytes # 0.7 L Lymphocytes % 4.3 L Magnesium Level 1.5 L Mean Corpuscular Hemoglobin 25.7 L Mean Corpuscular Hemoglobin Concent 30.9 L Mean Corpuscular Volume 83.2 Mean Platelet Volume 9.5 Monocytes # 0.7 Monocytes % 3.9 Neutrophils # 14.1 H Neutrophils % 84.3 H Nucleated Red Blood Cells # 0.0 Nucleated Red Blood Cells % 0.0 Platelet Count 319 Red Blood Count 2.92 L Red Cell Distribution Width 17.2 H White Blood Count 16.7 H Anion Gap 15 Blood Urea Nitrogen 52 H Calcium Level 10.8 H Carbon Dioxide Level 25 Chloride Level 100 Creatinine 1.18 Glucose Level 92 Potassium Level 3.5 Sodium Level 136 Test 08/14/16 13:17 Bedside Glucose 141 Medications Medications Current Medications Ondansetron HCl (Zofran Inj) 4 mg Q6H PRN IV NAUSEA AND/OR VOMITING; Start at 15:00 Acetaminophen (Tylenol Tab) 650 mg Q6H PRN PO PAIN LEVEL 1-3 OR FEVER Last administered on 08/13/16 21:53; Admin Dose 650 MG; Start 07/31/16 at 15:00 Morphine Sulfate (morphine) 2 mg Q4H PRN IV SEVERE PAIN LEVEL 7-10 Last administered on 08/02/16 20:59; Admin Dose 2 MG; Start 07/31/16 at 15:00 Magnesium Hydroxide (Milk Of Mag) 30 ml DAILY PRN PO CONSTIPATION; Start at 15:00 Sodium Biphosphate/ Sodium Phosphate (Fleet Enema) 133 ml DAILY PRN [place] CONSTIPATION; Start 07/31/16 at 15:00 Hydralazine HCl (Apresoline) 10 mg Q6H PRN IV ELEVATED BLOOD PRESSURE; Start at 15:00 Nitroglycerin (Nitroglycerin (Sl Tab) 0.4 Mg) 1 tab Q5M PRN SL ANGINA; Start at 15:00 Miscellaneous Information 1 ea NOTE XX ; Start 07/31/16 at 16:30 Glucose (Glutose) 15 gm Q15M PRN PO DECREASED GLUCOSE; Start 07/31/16 at 16:30 Glucose (Glutose) 22.5 gm Q15M PRN PO DECREASED GLUCOSE; Start 07/31/16 at 16: 30 Dextrose (D50w Syringe) 25 ml Q15M PRN IV DECREASED GLUCOSE; Start 07/31/16 at 16:30 Dextrose (D50w Syringe) 50 ml Q15M PRN IV DECREASED GLUCOSE; Start 07/31/16 at 16:30 Glucagon (Glucagen) 1 mg Q15M PRN IM DECREASED GLUCOSE; Start 07/31/16 at 16:30 Glucose (Glutose) 15 gm Q15M PRN BUCCAL DECREASED GLUCOSE; Start 07/31/16 at 16 :30 Sodium Hypochlorite (Dakin'S (1/4 Strength)) 1 applic BID IRR Last administered on 08/14/16 09:22; Admin Dose 1 APPLIC; Start 08/01/16 at 21:00 Calcium Carbonate (Ca Carbonate) 1,250 mg BID GTB Last administered on 09:21; Admin Dose 1,250 MG; Start 08/01/16 at 22:30 Acetaminophen/ Hydrocodone Bitart ([place] (5/325)) 1 tab Q4H PRN PEG MODERATE PAIN LEVEL 4-6 Last administered on 08/12/16 17:54; Admin Dose 1 TAB; Start 08/02/16 at 00:00 Lorazepam (Ativan) 0.5 mg Q4H PRN IV ANXIETY Last administered on 08/14/16 16: 13; Admin Dose 0.5 MG; Start 08/02/16 at 00:00 Zolpidem Tartrate (Ambien) 10 mg HS PRN PEG INSOMNIA Last administered on 02:57; Admin Dose 10 MG; Start 08/02/16 at 03:30 Fluconazole (Diflucan) 100 mg DAILY PO Last administered on 08/14/16 09:19; Admin Dose 100 MG; Start 08/02/16 at 12:30 Lactobacillus Acidoph/Bulgaricus (Floranex) 1 tab TID PO Last administered on 13:14; Admin Dose 1 TAB; Start 08/02/16 at 13:00 Ibuprofen (Motrin) 600 mg Q6H PRN PO PAIN OR TEMP ABOVE 38C Last administered on 08/11/16 21:29; Admin Dose 600 MG; Start 08/02/16 at 15:00 Zinc Sulfate (Zinc Sulfate) 220 mg DAILY GTB Last administered on 08/14/16 09: 21; Admin Dose 220 MG; Start 08/03/16 at 11:30 Multivitamins Therapeutic (Theragran) 1 tab DAILY PO Last administered on 09:21; Admin Dose 1 TAB; Start 08/03/16 at 11:30 Ascorbic Acid (Vitamin C) 500 mg BID GTB Last administered on 08/14/16 09:19; Admin Dose 500 MG; Start 08/03/16 at 11:30 Metronidazole (Flagyl) 500 mg Q8 PO Last administered on 08/14/16 13:14; Admin Dose 500 MG; Start 08/03/16 at 12:00 Sodium Hypochlorite (Dakin'S (Dilute 1/40%)) 1 applic BID IRR Last administered on 08/14/16 09:23; Admin Dose 1 APPLIC; Start 08/04/16 at 12:00 Hydromorphone HCl (Dilaudid) 0.5 mg Q8H PRN IV PAIN Last administered on 14:36; Admin Dose 0.5 MG; Start 08/04/16 at 12:00 Linezolid (Zyvox) 600 mg BID PO Last administered on 08/14/16 09:19; Admin Dose 600 MG; Start 08/05/16 at 21:00 Metformin HCl 500 mg 500 mg Q12 PO Last administered on 08/14/16 09:19; Admin Dose 500 MG; Start 08/08/16 at 21:00 Cefepime HCl 50 ml @ 100 mls/hr Q12 IVPB Last administered on 08/14/16 09:21 ; Admin Dose 100 MLS/HR; Start 08/08/16 at 16:00 Colistimethate Sodium/Sodium Chloride (Coly-Mycin/NS) 100 ml @ 200 mls/hr Q12 IVPB Last administered on 08/14/16 10:16; Admin Dose 200 MLS/HR; Start at 11:30 Levothyroxine Sodium (Synthroid) 25 mcg DAILY@06 PO Last administered on 05:48; Admin Dose 25 MCG; Start 08/11/16 at 06:00 Docusate Sodium (Colace Liquid Cup) 100 mg Q12 GTB Last administered on 21:52; Admin Dose 100 MG; Start 08/11/16 at 10:30 Paroxetine HCl (Paxil) 10 mg DAILY PO Last administered on 08/14/16 09:21; Admin Dose 10 MG; Start 08/11/16 at 21:00 Insulin Aspart (Novolog Insulin Pen) NOVOLOG *MODERATE* ALGORI... Q6 SC Last administered on 08/14/16 13:29; Admin Dose 2 UNIT; Start 08/13/16 at 00:00 Famotidine (Pepcid) 20 mg Q12 GTB Last administered on 08/14/16 09:21; Admin Dose 20 MG; Start 08/13/16 at 09:00 JAMISON STANTON Aug 14, 2016 17:33
--- NOTE | 2016-08-14 17:37 | RADRPT ---
PROCEDURE: CT Abdomen and Pelvis without contrast. CLINICAL INDICATION: Abdominal and pelvic pain. Fever and leukocytosis. TECHNIQUE: CT scan of the abdomen and pelvis without contrast was performed. Coronal and sagittal reformatted images were obtained from the axial source images. Images were reviewed on a high-resolu [employer] PACS workstation. Total exam DLP is 1139.36 mGy-cm. CTDIvol is 16.05 mGy. One or more of the following dose reduction techniques were used: Automated exposure control, adjustment of the mA and/ or kV according to patient size, use of iterative reconstruction technique. COMPARISON: None. FINDINGS: There is air space disease bilaterally in the lower lobes consistent with atelectasis. Mild patchy air space disease is present in the lingula consistent with pneumonia. The visualized portions of t he lungs are otherwise clear. There is no other airspace or interstitial disease. there is a centra l line with the tip in the cavoatrial junction region. The heart size is normal. There is no pleur al effusion or pericardial effusion. The liver is normal in size and attenuation. There is no focal hepatic lesion. The gallbladder and bile ducts are normal. The spleen is normal in size. There is no focal splenic lesion. Both adrenals are normal with no enlargement or mass. The pancreas is unremarkable with no mass or evidence of pancreatitis. There is no renal mass or hydronephrosis. There are several nonobstructing right renal calculi, eac h measuring between 0.1 and 0.2 cm numbering approximately 5. There is a nonobstructing 0.1 cm calc ulus in the mid left kidney. There is no other urinary tract calculus. The abdominal aorta is not dilated. There is no retroperitoneal lymphadenopathy or mass. There is no pelvic lymphadenopathy or mass. There is a Oliveira catheter in the urinary bladder. There is diffuse bladder wall thickening. The periappendiceal region is unremarkable with no evidence of appendicitis. The bowel and mesentery are normal. There is no free fluid or free gas. There are degenerative changes of the spine. There is no fracture or lytic lesion. IMPRESSION: 1. Atelectasis at the lung bases posteriorly. 2. Mild lingular pneumonia. 3. Central line tip in the cavoatrial junction region. 4. Several small nonobstructing bilateral renal calculi. 5. Oliveira catheter in the bladder. 6. Diffuse bladder wall thickening. 7. Degenerative changes of the spine. 8. Otherwise unremarkable study. RPTAT: QQ .Bryce Lee MD, MD Date Time Electronically viewed and signed by .Bryce Lee MD, MD on 08/14/2016 17:37 .R/
[2016-08-14] MEDS: ZOLPIDEM 5 MG TAB PEG PRN (20:35)
[2016-08-15] VITALS (22 sets, daily range): BP systolic 94–123; BP diastolic 52–74; PULSE 81–104; RESP 17–24
[2016-08-15] MEDS: HYDROmorphONE 1 MG/ML SYG IV PRN ×2 (03:58→15:35)
[2016-08-15] MEDS: INSULIN ASPART [NOVOLOG] 3 ML PEN SC SCH ×4 (06:00→18:00)
[2016-08-15] MEDS: LEVOTHYROXINE 25 MCG TAB PO SCH (06:13)
[2016-08-15] MEDS: metroNIDAZOLE 500 MG TAB PO SCH ×2 (06:13→13:46)
[2016-08-15] MEDS: LORAZEPAM 2 MG INJ IV PRN ×3 (06:13→21:11)
[2016-08-15] MEDS: ACETAMINOPHEN 325 MG TAB PO PRN ×2 (06:13→21:11)
[2016-08-15 06:17] LABS: ADD SCAN DIFF NO
[2016-08-15 06:28] LABS: BASOPHILS % 0.2 % (0.0-2.0); EOSINOPHILS # 0.3 10^3/ul (0.0-0.5); EOSINOPHILS % 1.9 % (0.0-7.0); HEMATOCRIT 22.5 % (42.0-52.0); LYMPHOCYTES # 0.7 10^3/ul (0.8-2.9); LYMPHOCYTES % 4.2 % (15.0-51.0); MEAN CORPUSCULAR HGB CONC 31.1 g/dl (32.0-37.0); MEAN CORPUSCULAR VOLUME 83.6 fl (82.0-101.0); MEAN PLATELET VOLUME 10.1 fl (7.4-10.4); MONOCYTE # 0.7 10^3/ul (0.3-0.9); NEUTROPHILS % 86.9 % (39.0-77.0); PLATELET COUNT 351 10^3/UL (140-415); RED BLOOD COUNT 2.69 10^6/ul (4.70-6.10); RED CELL DISTRIBUTION WIDTH 17.9 % (11.5-14.5); WHITE BLOOD COUNT 17.3 10^3/ul (4.8-10.8)
[2016-08-15 06:37] LABS: POTASSIUM 3.2 mmol/L (3.5-5.1)
[2016-08-15 06:39] LABS: CREATININE 1.21 mg/dl (0.61-1.24)
[2016-08-15 06:40] LABS: CALCIUM 11.1 mg/dl (8.4-10.2); PHOSPHORUS 3.3 mg/dl (2.5-4.9)
[2016-08-15 06:41] LABS: MAGNESIUM 2.3 mg/dl (1.7-2.5)
[2016-08-15] MEDS: CA CARBONATE (250 MG/ML) 5ML CUP GTB SCH ×2 (09:08→21:10)
[2016-08-15] MEDS: CEFEPIME 1GM/50 ML (PMX) 50 ML IVPB SCH ×2 (09:08→23:37)
[2016-08-15] MEDS: DOCUSATE SODIUM 10 MG/ML (10ML CUP) GTB SCH ×2 (09:08→21:10)
[2016-08-15] MEDS: PAROXETINE 10 MG TAB PO SCH (09:09)
[2016-08-15] MEDS: ZINC SULFATE 220 MG CAP GTB SCH (09:09)
[2016-08-15] MEDS: FLUCONAZOLE 100 MG TAB PO SCH (09:09)
[2016-08-15] MEDS: FAMOTIDINE 20 MG TAB GTB SCH ×2 (09:09→21:11)
[2016-08-15] MEDS: metFORMIN 500 MG TAB PO SCH (09:09)
[2016-08-15] MEDS: LACTOBACILLUS CHEW TAB PO SCH ×2 (09:09→13:46)
[2016-08-15] MEDS: MULTIVITAMINS THERAPEUTIC TAB PO SCH (09:09)
[2016-08-15] MEDS: ZYVOX 600 MG TAB PO SCH (09:09)
[2016-08-15] MEDS: ASCORBIC ACID 500 MG TAB GTB SCH ×2 (09:09→21:12)
[2016-08-15] MEDS: SODIUM HYPOCHLORITE 0.125% 473 ML BTL IRR SCH ×2 (09:09→21:55)
[2016-08-15] MEDS: SODIUM HYPOCHLORITE 1/40% 1L IRRIG IRR SCH ×2 (09:10→21:55)
[2016-08-15] MEDS: COLISTIMETHATE 135 MG in SOD CHLORIDE 0.9% 100 ML IVPB SCH (11:15)
--- NOTE | 2016-08-15 14:08 | PN ---
DATE: 08/15/2016 SUBJECTIVE: The patient remains stable this morning. OBJECTIVE: VITAL SIGNS: Temperature 98, pulse 99, blood pressure 104/56, O2 saturation 96% on 45% FIO2. NECK: Trach site clean and intact. CARDIAC: S1, S2, no added sounds or murmurs. CHEST: Diminished air entry bilaterally. ABDOMEN: Soft, nontender. No guarding or rebound. EXTREMITIES: No cyanosis, clubbing, edema. NEUROLOGIC: Generalized weakness. LABORATORY DATA: White count elevated at 17.3, hemoglobin 7, platelets of 351. BUN 53, creatinine 1.21. IMPRESSION AND PLAN: 1. Vent dependent respiratory failure. 2. Healthcare-associated pneumonia. 3. Significant anemia; will require transfusion of packed red blood cells. 4. Continue tube feeding. 5. DVT and GI prophylaxis. Dictated By: ABI SWANSON/SCOTTIE Conf#: [id number] DID#: [id number]
[2016-08-15 14:36] LABS: HEMATOCRIT 26.9 % (42.0-52.0); HEMOGLOBIN 8.5 g/dl (14.0-18.0)
--- NOTE | 2016-08-15 14:56 | CONS ---
Date/Time of Note Date/Time of Note DATE: 08/15/16 TIME: 14:54 Assessment/Plan Assessment/Plan Chief Complaint/Hosp Course SUBJECTIVE: No events, lying comfortably in bed MICROBIOLOGY: Urine culture grew Addis albicans Pseudomonas aeruginosa. Wound culture growing multi-drug resistant Klebsiella pneumoniae and gram- negative rods and Enterococcus species. INDWELLINGS: Trach, PEG, Oliveira, left chest Port-A-Cath. ANTIMICROBIALS: 1. Colistin. 2. Zyvox. 3. Fluconazole. 4. Flagyl 5. Cefepime PHYSICAL EXAMINATION: GENERAL: Chronically ill-appearing, well-developed, middle-aged man who is lying comfortably in bed. HEENT: Head atraumatic, normocephalic. Sclerae anicteric. Buccal mucosa dry. CHEST: Rise symmetrical. Breath sounds diminished to bases. HEART: S1, S2. ABDOMEN: Soft, bowel tones present. EXTREMITIES: With trace edema. Left upper extremity more edematous. ASSESSMENT: 1. Sepsis with ongoing fevers. 2. Multiple decubitus with wound culture growing multi-drug resistant organisms. 3. Healthcare-associated pneumonia. 4. Multidrug resistant urinary tract infection. 5. History of Clostridium difficile colitis. 6. 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 7. Left chest Port-A-Cath. PLAN: Remains unchanged. Repeat bld cx negative, WBC scan negative, CT abdomen/ pelvis neg for OM, continue abx, aggressive pulmonary toilet, local wound care. DW staff Problems: Consultation Date/Type/Reason Admit Date/Time Jul 31, 2016 at 14:20 Initial Consult Date 08/02/16 Type of Consultation: id Exam/Review of Systems Vital Signs Vitals Vital Signs Date Time Temp Pulse Resp B/P Pulse Ox O2 Delivery O2 Flow Rate FiO2 08/15/16 13:15 92 24 98 45 08/15/16 11:03 98.9 104/56 Intake and Output 08/14/16 08/14/16 08/15/16 15:00 23:00 07:00 Intake Total 1100 ml 1115 ml Output Total 750 ml 1700 ml Balance 350 ml -585 ml Results Result Diagram: 08/15/16 1418 08/15/16 0545 Results 24 hrs Laboratory Tests Test 08/14/16 18:21 08/15/16 00:26 08/15/16 05:22 08/15/16 05:45 Bedside Glucose 116 118 124 Anion Gap 13 Basophils # 0.0 Basophils % 0.2 Blood Urea Nitrogen 53 H Calcium Level 11.1 H Carbon Dioxide Level 26 Chloride Level 101 Creatinine 1.21 Eosinophils # 0.3 Eosinophils % 1.9 Glucose Level 108 Hematocrit 22.5 L Hemoglobin 7.0 L Lymphocytes # 0.7 L Lymphocytes % 4.2 L Magnesium Level 2.3 Mean Corpuscular Hemoglobin 26.0 L Mean Corpuscular Hemoglobin Concent 31.1 L Mean Corpuscular Volume 83.6 Mean Platelet Volume 10.1 Monocytes # 0.7 Monocytes % 4.0 Neutrophils # 15.0 H Neutrophils % 86.9 H Nucleated Red Blood Cells # 0.0 Nucleated Red Blood Cells % 0.0 Phosphorus Level 3.3 Platelet Count 351 Potassium Level 3.2 L Red Blood Count 2.69 L Red Cell Distribution Width 17.9 H Sodium Level 137 White Blood Count 17.3 H Test 08/15/16 11:37 08/15/16 14:18 Bedside Glucose 130 Hematocrit 26.9 L Hemoglobin 8.5 #L Medications Medications Current Medications Ondansetron HCl (Zofran Inj) 4 mg Q6H PRN IV NAUSEA AND/OR VOMITING Last administered on 08/15/16 05:11; Admin Dose 4 MG; Start 07/31/16 at 15:00 Acetaminophen (Tylenol Tab) 650 mg Q6H PRN PO PAIN LEVEL 1-3 OR FEVER Last administered on 08/15/16 06:13; Admin Dose 650 MG; Start 07/31/16 at 15:00 Morphine Sulfate (morphine) 2 mg Q4H PRN IV SEVERE PAIN LEVEL 7-10 Last administered on 08/02/16 20:59; Admin Dose 2 MG; Start 07/31/16 at 15:00 Magnesium Hydroxide (Milk Of Mag) 30 ml DAILY PRN PO CONSTIPATION; Start at 15:00 Sodium Biphosphate/ Sodium Phosphate (Fleet Enema) 133 ml DAILY PRN [place] CONSTIPATION; Start 07/31/16 at 15:00 Hydralazine HCl (Apresoline) 10 mg Q6H PRN IV ELEVATED BLOOD PRESSURE; Start at 15:00 Nitroglycerin (Nitroglycerin (Sl Tab) 0.4 Mg) 1 tab Q5M PRN SL ANGINA; Start at 15:00 Miscellaneous Information 1 ea NOTE XX ; Start 07/31/16 at 16:30 Glucose (Glutose) 15 gm Q15M PRN PO DECREASED GLUCOSE; Start 07/31/16 at 16:30 Glucose (Glutose) 22.5 gm Q15M PRN PO DECREASED GLUCOSE; Start 07/31/16 at 16: 30 Dextrose (D50w Syringe) 25 ml Q15M PRN IV DECREASED GLUCOSE; Start 07/31/16 at 16:30 Dextrose (D50w Syringe) 50 ml Q15M PRN IV DECREASED GLUCOSE; Start 07/31/16 at 16:30 Glucagon (Glucagen) 1 mg Q15M PRN IM DECREASED GLUCOSE; Start 07/31/16 at 16:30 Glucose (Glutose) 15 gm Q15M PRN BUCCAL DECREASED GLUCOSE; Start 07/31/16 at 16 :30 Sodium Hypochlorite (Dakin'S (1/4 Strength)) 1 applic BID IRR Last administered on 08/15/16 09:09; Admin Dose 1 APPLIC; Start 08/01/16 at 21:00 Calcium Carbonate (Ca Carbonate) 1,250 mg BID GTB Last administered on 09:08; Admin Dose 1,250 MG; Start 08/01/16 at 22:30 Acetaminophen/ Hydrocodone Bitart ([place] (5/325)) 1 tab Q4H PRN PEG MODERATE PAIN LEVEL 4-6 Last administered on 08/12/16 17:54; Admin Dose 1 TAB; Start 08/02/16 at 00:00 Lorazepam (Ativan) 0.5 mg Q4H PRN IV ANXIETY Last administered on 08/15/16 11: 32; Admin Dose 0.5 MG; Start 08/02/16 at 00:00 Zolpidem Tartrate (Ambien) 10 mg HS PRN PEG INSOMNIA Last administered on 20:35; Admin Dose 10 MG; Start 08/02/16 at 03:30 Fluconazole (Diflucan) 100 mg DAILY PO Last administered on 08/15/16 09:09; Admin Dose 100 MG; Start 08/02/16 at 12:30 Lactobacillus Acidoph/Bulgaricus (Floranex) 1 tab TID PO Last administered on 13:46; Admin Dose 1 TAB; Start 08/02/16 at 13:00 Ibuprofen (Motrin) 600 mg Q6H PRN PO PAIN OR TEMP ABOVE 38C Last administered on 08/11/16 21:29; Admin Dose 600 MG; Start 08/02/16 at 15:00 Zinc Sulfate (Zinc Sulfate) 220 mg DAILY GTB Last administered on 08/15/16 09: 09; Admin Dose 220 MG; Start 08/03/16 at 11:30 Multivitamins Therapeutic (Theragran) 1 tab DAILY PO Last administered on 09:09; Admin Dose 1 TAB; Start 08/03/16 at 11:30 Ascorbic Acid (Vitamin C) 500 mg BID GTB Last administered on 08/15/16 09:09; Admin Dose 500 MG; Start 08/03/16 at 11:30 Metronidazole (Flagyl) 500 mg Q8 PO Last administered on 08/15/16 13:46; Admin Dose 500 MG; Start 08/03/16 at 12:00 Sodium Hypochlorite (Dakin'S (Dilute 1/40%)) 1 applic BID IRR Last administered on 08/15/16 09:10; Admin Dose 1 APPLIC; Start 08/04/16 at 12:00 Hydromorphone HCl (Dilaudid) 0.5 mg Q8H PRN IV PAIN Last administered on 03:58; Admin Dose 0.5 MG; Start 08/04/16 at 12:00 Linezolid (Zyvox) 600 mg BID PO Last administered on 08/15/16 09:09; Admin Dose 600 MG; Start 08/05/16 at 21:00 Metformin HCl 500 mg 500 mg Q12 PO Last administered on 08/15/16 09:09; Admin Dose 500 MG; Start 08/08/16 at 21:00 Cefepime HCl 50 ml @ 100 mls/hr Q12 IVPB Last administered on 08/15/16 09:08 ; Admin Dose 100 MLS/HR; Start 08/08/16 at 16:00 Colistimethate Sodium/Sodium Chloride (Coly-Mycin/NS) 100 ml @ 200 mls/hr Q12 IVPB Last administered on 08/15/16 11:15; Admin Dose 200 MLS/HR; Start 3/10/ 17 at 11:30 Levothyroxine Sodium (Synthroid) 25 mcg DAILY@06 PO Last administered on 06:13; Admin Dose 25 MCG; Start 08/11/16 at 06:00 Docusate Sodium (Colace Liquid Cup) 100 mg Q12 GTB Last administered on 09:08; Admin Dose 100 MG; Start 08/11/16 at 10:30 Paroxetine HCl (Paxil) 10 mg DAILY PO Last administered on 08/15/16 09:09; Admin Dose 10 MG; Start 08/11/16 at 21:00 Insulin Aspart (Novolog Insulin Pen) NOVOLOG *MODERATE* ALGORI... Q6 SC Last administered on 08/14/16 13:29; Admin Dose 2 UNIT; Start 08/13/16 at 00:00 Famotidine (Pepcid) 20 mg Q12 GTB Last administered on 08/15/16 09:09; Admin Dose 20 MG; Start 08/13/16 at 09:00 LESLIE FERRARO NP Aug 15, 2016 14:56
--- NOTE | 2016-08-15 16:33 | PN ---
Date/Time of Note Date/Time of Note DATE: 08/15/16 TIME: 16:30 Assessment/Plan VTE Prophylaxis VTE Prophylaxis Intervention: SCD's Assessment/Plan Chief Complaint/Hosp Course 1. Sepsis - sec to resp infection+ UTI + decubitus ulcer infx Continue antibiotics WBC scan is negative, CT abdomen and pelvis shows no evidence of osteomyelitis, repeat blood cultures are negative Follow up with ID recommendations 2. Chronic respiratory failure,Vent dependent via trach 3. Recurrent Multifocal bronchitis/bronchiolitis/bronchopneumonia 4. Chronic Dysphagia currently on G-tube feeds. / #5 5. C2 fracture / fall in April 2016 + chronic neuropathy with cervical collar Per patient he was meant to have collar only for 4months, neurosurgery consultation appreciated collar now removed 6. Multiple infected decubiti down to the bone Continue antibiotics Per surgery, Patient needs diverting colostomy but was having cardiac issues and is still mildly septic, awaiting stabilization 7. Anemia of chronic disease 8. DM 2 with suboptimal control: stable on metformin 9. Cardiomyopathy with ejection fraction 45-50% via echo on previous admission 10. Pseudomonas / Addis UTI 11. New Hypothyroidism 12. Probable Depression : patient refusing turning and wound care / started on Paxil Dispo: Patient would like to go to back to the congreg[facility] living that he came from Prophylaxis: H2 pam / SCDs Problems: Subjective 24 Hr Interval Summary Constitutional: no complaints Exam/Review of Systems Vital Signs Vitals Vital Signs Date Time Temp Pulse Resp B/P Pulse Ox O2 Delivery O2 Flow Rate FiO2 08/15/16 15:16 96 24 99 45 08/15/16 11:03 98.9 104/56 Intake and Output 08/14/16 08/14/16 08/15/16 15:00 23:00 07:00 Intake Total 1100 ml 1115 ml Output Total 750 ml 1700 ml Balance 350 ml -585 ml Exam Constitutional: alert, oriented Respiratory: clear to auscultation Cardiovascular: regular rate and rhythm Gastrointestinal: soft, No distended Musculoskeletal: nl extremities to inspection Results Result Diagram: 08/15/16 1418 08/15/16 0545 Results 24 hrs Laboratory Tests Test 08/14/16 18:21 08/15/16 00:26 08/15/16 05:22 08/15/16 05:45 Bedside Glucose 116 118 124 Anion Gap 13 Basophils # 0.0 Basophils % 0.2 Blood Urea Nitrogen 53 H Calcium Level 11.1 H Carbon Dioxide Level 26 Chloride Level 101 Creatinine 1.21 Eosinophils # 0.3 Eosinophils % 1.9 Glucose Level 108 Hematocrit 22.5 L Hemoglobin 7.0 L Lymphocytes # 0.7 L Lymphocytes % 4.2 L Magnesium Level 2.3 Mean Corpuscular Hemoglobin 26.0 L Mean Corpuscular Hemoglobin Concent 31.1 L Mean Corpuscular Volume 83.6 Mean Platelet Volume 10.1 Monocytes # 0.7 Monocytes % 4.0 Neutrophils # 15.0 H Neutrophils % 86.9 H Nucleated Red Blood Cells # 0.0 Nucleated Red Blood Cells % 0.0 Phosphorus Level 3.3 Platelet Count 351 Potassium Level 3.2 L Red Blood Count 2.69 L Red Cell Distribution Width 17.9 H Sodium Level 137 White Blood Count 17.3 H Test 08/15/16 11:37 08/15/16 14:18 Bedside Glucose 130 Hematocrit 26.9 L Hemoglobin 8.5 #L Medications Medications Current Medications Ondansetron HCl (Zofran Inj) 4 mg Q6H PRN IV NAUSEA AND/OR VOMITING Last administered on 08/15/16 05:11; Admin Dose 4 MG; Start 07/31/16 at 15:00 Acetaminophen (Tylenol Tab) 650 mg Q6H PRN PO PAIN LEVEL 1-3 OR FEVER Last administered on 08/15/16 06:13; Admin Dose 650 MG; Start 07/31/16 at 15:00 Morphine Sulfate (morphine) 2 mg Q4H PRN IV SEVERE PAIN LEVEL 7-10 Last administered on 08/02/16 20:59; Admin Dose 2 MG; Start 07/31/16 at 15:00 Magnesium Hydroxide (Milk Of Mag) 30 ml DAILY PRN PO CONSTIPATION; Start at 15:00 Sodium Biphosphate/ Sodium Phosphate (Fleet Enema) 133 ml DAILY PRN [place] CONSTIPATION; Start 07/31/16 at 15:00 Hydralazine HCl (Apresoline) 10 mg Q6H PRN IV ELEVATED BLOOD PRESSURE; Start at 15:00 Nitroglycerin (Nitroglycerin (Sl Tab) 0.4 Mg) 1 tab Q5M PRN SL ANGINA; Start at 15:00 Miscellaneous Information 1 ea NOTE XX ; Start 07/31/16 at 16:30 Glucose (Glutose) 15 gm Q15M PRN PO DECREASED GLUCOSE; Start 07/31/16 at 16:30 Glucose (Glutose) 22.5 gm Q15M PRN PO DECREASED GLUCOSE; Start 07/31/16 at 16: 30 Dextrose (D50w Syringe) 25 ml Q15M PRN IV DECREASED GLUCOSE; Start 07/31/16 at 16:30 Dextrose (D50w Syringe) 50 ml Q15M PRN IV DECREASED GLUCOSE; Start 07/31/16 at 16:30 Glucagon (Glucagen) 1 mg Q15M PRN IM DECREASED GLUCOSE; Start 07/31/16 at 16:30 Glucose (Glutose) 15 gm Q15M PRN BUCCAL DECREASED GLUCOSE; Start 07/31/16 at 16 :30 Sodium Hypochlorite (Dakin'S (1/4 Strength)) 1 applic BID IRR Last administered on 08/15/16 09:09; Admin Dose 1 APPLIC; Start 08/01/16 at 21:00 Calcium Carbonate (Ca Carbonate) 1,250 mg BID GTB Last administered on 09:08; Admin Dose 1,250 MG; Start 08/01/16 at 22:30 Acetaminophen/ Hydrocodone Bitart ([place] (5/325)) 1 tab Q4H PRN PEG MODERATE PAIN LEVEL 4-6 Last administered on 08/12/16 17:54; Admin Dose 1 TAB; Start 08/02/16 at 00:00 Lorazepam (Ativan) 0.5 mg Q4H PRN IV ANXIETY Last administered on 08/15/16 11: 32; Admin Dose 0.5 MG; Start 08/02/16 at 00:00 Zolpidem Tartrate (Ambien) 10 mg HS PRN PEG INSOMNIA Last administered on 20:35; Admin Dose 10 MG; Start 08/02/16 at 03:30 Fluconazole (Diflucan) 100 mg DAILY PO Last administered on 08/15/16 09:09; Admin Dose 100 MG; Start 08/02/16 at 12:30 Lactobacillus Acidoph/Bulgaricus (Floranex) 1 tab TID PO Last administered on 13:46; Admin Dose 1 TAB; Start 08/02/16 at 13:00 Ibuprofen (Motrin) 600 mg Q6H PRN PO PAIN OR TEMP ABOVE 38C Last administered on 08/11/16 21:29; Admin Dose 600 MG; Start 08/02/16 at 15:00 Zinc Sulfate (Zinc Sulfate) 220 mg DAILY GTB Last administered on 08/15/16 09: 09; Admin Dose 220 MG; Start 08/03/16 at 11:30 Multivitamins Therapeutic (Theragran) 1 tab DAILY PO Last administered on 09:09; Admin Dose 1 TAB; Start 08/03/16 at 11:30 Ascorbic Acid (Vitamin C) 500 mg BID GTB Last administered on 08/15/16 09:09; Admin Dose 500 MG; Start 08/03/16 at 11:30 Metronidazole (Flagyl) 500 mg Q8 PO Last administered on 08/15/16 13:46; Admin Dose 500 MG; Start 08/03/16 at 12:00 Sodium Hypochlorite (Dakin'S (Dilute 1/40%)) 1 applic BID IRR Last administered on 08/15/16 09:10; Admin Dose 1 APPLIC; Start 08/04/16 at 12:00 Hydromorphone HCl (Dilaudid) 0.5 mg Q8H PRN IV PAIN Last administered on 15:35; Admin Dose 0.5 MG; Start 08/04/16 at 12:00 Linezolid (Zyvox) 600 mg BID PO Last administered on 08/15/16 09:09; Admin Dose 600 MG; Start 08/05/16 at 21:00 Metformin HCl 500 mg 500 mg Q12 PO Last administered on 08/15/16 09:09; Admin Dose 500 MG; Start 08/08/16 at 21:00 Cefepime HCl 50 ml @ 100 mls/hr Q12 IVPB Last administered on 08/15/16 09:08 ; Admin Dose 100 MLS/HR; Start 08/08/16 at 16:00 Colistimethate Sodium/Sodium Chloride (Coly-Mycin/NS) 100 ml @ 200 mls/hr Q12 IVPB Last administered on 08/15/16 11:15; Admin Dose 200 MLS/HR; Start at 11:30 Levothyroxine Sodium (Synthroid) 25 mcg DAILY@06 PO Last administered on 06:13; Admin Dose 25 MCG; Start 08/11/16 at 06:00 Docusate Sodium (Colace Liquid Cup) 100 mg Q12 GTB Last administered on 09:08; Admin Dose 100 MG; Start 08/11/16 at 10:30 Paroxetine HCl (Paxil) 10 mg DAILY PO Last administered on 08/15/16 09:09; Admin Dose 10 MG; Start 08/11/16 at 21:00 Insulin Aspart (Novolog Insulin Pen) NOVOLOG *MODERATE* ALGORI... Q6 SC Last administered on 08/14/16 13:29; Admin Dose 2 UNIT; Start 08/13/16 at 00:00 Famotidine (Pepcid) 20 mg Q12 GTB Last administered on 08/15/16 09:09; Admin Dose 20 MG; Start 08/13/16 at 09:00 JAMISON STANTON Aug 15, 2016 16:33
[2016-08-15] MEDS ORDERED: POTASSIUM CHLORIDE 250 ML IVPB ONE (17:00)
[2016-08-15] MEDS: LACTOBACILLUS CHEW TAB GTB SCH (21:21)
[2016-08-15] MEDS: ACETAMINOPHEN 325 MG TAB GTB PRN (21:26)
[2016-08-15] MEDS: metFORMIN 500 MG TAB GTB SCH (21:26)
[2016-08-15] MEDS: ZYVOX 600 MG TAB GTB SCH (23:37)
[2016-08-15] MEDS: metroNIDAZOLE 500 MG TAB GTB SCH (23:37)
[2016-08-16] VITALS (25 sets, daily range): BP systolic 85–123; BP diastolic 52–72; PULSE 85–109; RESP 17–24
[2016-08-16] MEDS: HYDROCODONE/APAP (5/325) TAB PEG PRN (02:28)
[2016-08-16] MEDS: LORAZEPAM 2 MG INJ IV PRN (02:28)
[2016-08-16] MEDS: CEFEPIME 1GM/50 ML (PMX) 50 ML IVPB SCH ×3 (02:30→21:11)
[2016-08-16] MEDS: COLISTIMETHATE 135 MG in SOD CHLORIDE 0.9% 100 ML IVPB SCH (04:14)
[2016-08-16] MEDS: metroNIDAZOLE 500 MG TAB GTB SCH ×3 (05:08→21:13)
[2016-08-16] MEDS: LEVOTHYROXINE 25 MCG TAB PO SCH (05:09)
[2016-08-16] MEDS: HYDROmorphONE 1 MG/ML SYG IV PRN (05:14)
[2016-08-16] MEDS: INSULIN ASPART [NOVOLOG] 3 ML PEN SC SCH ×4 (06:00→17:50)
[2016-08-16 07:15] LABS: ADD SCAN DIFF NO
[2016-08-16 07:34] LABS: ABNORMAL IP MESSAGE 1; BASOPHILS % 0.2 % (0.0-2.0); EOSINOPHILS # 0.3 10^3/ul (0.0-0.5); EOSINOPHILS % 2.5 % (0.0-7.0); HEMATOCRIT 23.3 % (42.0-52.0); HEMOGLOBIN 7.6 g/dl (14.0-18.0); LYMPHOCYTES # 0.6 10^3/ul (0.8-2.9); LYMPHOCYTES % 4.1 % (15.0-51.0); MEAN CORPUSCULAR HEMOGLOBIN 27.1 pg (29.0-33.0); MEAN CORPUSCULAR HGB CONC 32.6 g/dl (32.0-37.0); MEAN CORPUSCULAR VOLUME 83.2 fl (82.0-101.0); MEAN PLATELET VOLUME 10.4 fl (7.4-10.4); MONOCYTE # 0.5 10^3/ul (0.3-0.9); MONOCYTES % 3.9 % (0.0-11.0); NEUTROPHIL # 11.7 10^3/ul (1.6-7.5); NEUTROPHILS % 86.5 % (39.0-77.0); PLATELET COUNT 289 10^3/UL (140-415); RED CELL DISTRIBUTION WIDTH 17.2 % (11.5-14.5); WHITE BLOOD COUNT 13.5 10^3/ul (4.8-10.8)
[2016-08-16 07:41] LABS: CREATININE 0.76 mg/dl (0.61-1.24)
[2016-08-16 07:42] LABS: CALCIUM 8.7 mg/dl (8.4-10.2); PHOSPHORUS 2.3 mg/dl (2.5-4.9)
[2016-08-16 07:43] LABS: MAGNESIUM 1.3 mg/dl (1.7-2.5)
[2016-08-16 07:53] LABS: POTASSIUM 2.3 mmol/L (3.5-5.1)
[2016-08-16] MEDS: LACTOBACILLUS CHEW TAB GTB SCH ×3 (09:18→21:12)
[2016-08-16] MEDS: DOCUSATE SODIUM 10 MG/ML (10ML CUP) GTB SCH ×2 (09:18→21:12)
[2016-08-16] MEDS: CA CARBONATE (250 MG/ML) 5ML CUP GTB SCH ×2 (09:18→21:12)
[2016-08-16] MEDS: metFORMIN 500 MG TAB GTB SCH ×2 (09:19→21:12)
[2016-08-16] MEDS: FAMOTIDINE 20 MG TAB GTB SCH ×2 (09:19→21:12)
[2016-08-16] MEDS: ASCORBIC ACID 500 MG TAB GTB SCH ×2 (09:19→21:12)
[2016-08-16] MEDS: SODIUM HYPOCHLORITE 0.125% 473 ML BTL IRR SCH ×2 (09:19→21:22)
[2016-08-16] MEDS: ZYVOX 600 MG TAB GTB SCH ×2 (09:19→21:12)
[2016-08-16] MEDS: ZINC SULFATE 220 MG CAP GTB SCH (09:19)
[2016-08-16] MEDS: SODIUM HYPOCHLORITE 1/40% 1L IRRIG IRR SCH ×2 (09:20→21:22)
[2016-08-16] MEDS ORDERED: COLISTIMETHATE 150 MG in SOD CHLORIDE 0.9% 100 ML IVPB SCH (09:32)
[2016-08-16] MEDS: PAROXETINE 10 MG TAB PO SCH (09:32)
[2016-08-16] MEDS: FLUCONAZOLE 100 MG TAB PO SCH (09:32)
[2016-08-16] MEDS: MULTIVITAMINS THERAPEUTIC TAB PO SCH (09:32)
[2016-08-16] MEDS ORDERED: POTASSIUM CHLORIDE 250 ML IVPB SCH (10:30)
[2016-08-16] MEDS: POTASSIUM CHLORIDE 250 ML IVPB SCH ×2 (11:04→16:18)
[2016-08-16] MEDS ORDERED: MAGNESIUM SULFATE 4 GM/100 ML 100 ML IVPB ONE (12:00)
--- NOTE | 2016-08-16 12:02 | CONS ---
Date/Time of Note Date/Time of Note DATE: 08/16/16 TIME: 11:59 Assessment/Plan Assessment/Plan Additional Assessment/Plan Ventilator settings; assist control 24, tidal volume 500, PEEP of 5, 100% FiO2. Assessment recommendations; 1. Patient admitted for severe bilateral pneumonia. Likely with interval progression. 2. Severe decubitus ulcers involving the sacrum and bilateral upper thighs. 3. 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 4. Cardiomyopathy. 5. Anemia. Patient needs to be transferred to ICU. At this time I would recommending increasing PEEP to 10. Obtain a follow-up chest x-ray. Continue current antibiotics. Prognosis remains poor. Transfuse 1 unit of packed RBC . Consultation Date/Type/Reason Admit Date/Time Jul 31, 2016 at 14:20 Initial Consult Date 08/02/16 Type of Consultation: Pulmonary 24 HR Interval Summary Free Text/Dictation Patient condition is tenuous at best. Requiring 100% FiO2 for O2 saturation maintenance at high respiratory rate setting of assist control at 24. Abdomen exam; young male, on ventilator via tracheostomy. Awake and alert. Appears mildly anxious. Exam/Review of Systems Vital Signs Vitals Vital Signs Date Time Temp Pulse Resp B/P Pulse Ox O2 Delivery O2 Flow Rate FiO2 08/16/16 11:05 24 08/16/16 09:35 98.6 08/16/16 09:05 90 96 40 08/16/16 07:30 123/60 Intake and Output 08/15/16 08/15/16 08/16/16 14:59 22:59 06:59 Intake Total 1135 ml Output Total 2000 ml Balance -865 ml Exam H EENT exam is; supple neck, no JVD. No lymphadenopathy. Midline trachea. No thyromegaly. Tracheostomy in place with clean insertion site. Pupils are midsize and reactive to light bilaterally. Chest examination a micro diminished breath on lung bases bilaterally. Upper lobes are fairly clear. S1-S2 audible, no murmurs. Regular rhythm. Abdomen exam is; soft, G-tube in place. Bowel sounds audible. No organomegaly. Back examination reveals dressing applied over sacral as well as bilateral upper thigh dressings. Extremity examination; no peripheral edema. 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 Results Result Diagram: 08/16/16 0650 08/16/16 0650 Results 24 hrs Laboratory Tests Test 08/15/16 14:18 08/15/16 17:57 08/15/16 23:48 08/16/16 02:42 Hematocrit 26.9 L Hemoglobin 8.5 #L Bedside Glucose 112 104 109 Test 08/16/16 06:50 08/16/16 07:13 Anion Gap 12 Basophils # 0.0 Basophils % 0.2 Blood Urea Nitrogen 37 #H Calcium Level 8.7 Carbon Dioxide Level 21 Chloride Level 109 Creatinine 0.76 Eosinophils # 0.3 Eosinophils % 2.5 Glucose Level 90 Hematocrit 23.3 L Hemoglobin 7.6 L Lymphocytes # 0.6 L Lymphocytes % 4.1 L Magnesium Level 1.3 L Mean Corpuscular Hemoglobin 27.1 L Mean Corpuscular Hemoglobin Concent 32.6 Mean Corpuscular Volume 83.2 Mean Platelet Volume 10.4 Monocytes # 0.5 Monocytes % 3.9 Neutrophils # 11.7 H Neutrophils % 86.5 H Nucleated Red Blood Cells # 0.0 Nucleated Red Blood Cells % 0.0 Phosphorus Level 2.3 #L Platelet Count 289 Potassium Level 2.3 *L Red Blood Count 2.80 L Red Cell Distribution Width 17.2 H Sodium Level 140 White Blood Count 13.5 #H Bedside Glucose 125 Medications Medications Current Medications Ondansetron HCl (Zofran Inj) 4 mg Q6H PRN IV NAUSEA AND/OR VOMITING Last administered on 08/15/16 05:11; Admin Dose 4 MG; Start 07/31/16 at 15:00 Morphine Sulfate (morphine) 2 mg Q4H PRN IV SEVERE PAIN LEVEL 7-10 Last administered on 08/02/16 20:59; Admin Dose 2 MG; Start 07/31/16 at 15:00 Magnesium Hydroxide (Milk Of Mag) 30 ml DAILY PRN PO CONSTIPATION; Start at 15:00 Sodium Biphosphate/ Sodium Phosphate (Fleet Enema) 133 ml DAILY PRN [place] CONSTIPATION; Start 07/31/16 at 15:00 Hydralazine HCl (Apresoline) 10 mg Q6H PRN IV ELEVATED BLOOD PRESSURE; Start at 15:00 Nitroglycerin (Nitroglycerin (Sl Tab) 0.4 Mg) 1 tab Q5M PRN SL ANGINA; Start at 15:00 Miscellaneous Information 1 ea NOTE XX ; Start 07/31/16 at 16:30 Glucose (Glutose) 15 gm Q15M PRN PO DECREASED GLUCOSE; Start 07/31/16 at 16:30 Glucose (Glutose) 22.5 gm Q15M PRN PO DECREASED GLUCOSE; Start 07/31/16 at 16: 30 Dextrose (D50w Syringe) 25 ml Q15M PRN IV DECREASED GLUCOSE; Start 07/31/16 at 16:30 Dextrose (D50w Syringe) 50 ml Q15M PRN IV DECREASED GLUCOSE; Start 07/31/16 at 16:30 Glucagon (Glucagen) 1 mg Q15M PRN IM DECREASED GLUCOSE; Start 07/31/16 at 16:30 Glucose (Glutose) 15 gm Q15M PRN BUCCAL DECREASED GLUCOSE; Start 07/31/16 at 16 :30 Sodium Hypochlorite (Dakin'S (1/4 Strength)) 1 applic BID IRR Last administered on 08/16/16 09:19; Admin Dose 1 APPLIC; Start 08/01/16 at 21:00 Calcium Carbonate (Ca Carbonate) 1,250 mg BID GTB Last administered on 09:18; Admin Dose 1,250 MG; Start 08/01/16 at 22:30 Acetaminophen/ Hydrocodone Bitart ([place] (5/325)) 1 tab Q4H PRN PEG MODERATE PAIN LEVEL 4-6 Last administered on 08/16/16 02:28; Admin Dose 1 TAB; Start 08/02/16 at 00:00 Lorazepam (Ativan) 0.5 mg Q4H PRN IV ANXIETY Last administered on 08/16/16 02: 28; Admin Dose 0.5 MG; Start 08/02/16 at 00:00 Zolpidem Tartrate (Ambien) 10 mg HS PRN PEG INSOMNIA Last administered on 20:35; Admin Dose 10 MG; Start 08/02/16 at 03:30 Fluconazole (Diflucan) 100 mg DAILY PO Last administered on 08/16/16 09:32; Admin Dose 100 MG; Start 08/02/16 at 12:30 Ibuprofen (Motrin) 600 mg Q6H PRN PO PAIN OR TEMP ABOVE 38C Last administered on 08/11/16 21:29; Admin Dose 600 MG; Start 08/02/16 at 15:00 Zinc Sulfate (Zinc Sulfate) 220 mg DAILY GTB Last administered on 08/16/16 09: 19; Admin Dose 220 MG; Start 08/03/16 at 11:30 Multivitamins Therapeutic (Theragran) 1 tab DAILY PO Last administered on 09:32; Admin Dose 1 TAB; Start 08/03/16 at 11:30 Ascorbic Acid (Vitamin C) 500 mg BID GTB Last administered on 08/16/16 09:19; Admin Dose 500 MG; Start 08/03/16 at 11:30 Sodium Hypochlorite (Dakin'S (Dilute 1/40%)) 1 applic BID IRR Last administered on 08/16/16 09:20; Admin Dose 1 APPLIC; Start 08/04/16 at 12:00 Hydromorphone HCl 0.5 mg 0.5 mg Q8H PRN IV PAIN Last administered on 08/16/16 05:14; Admin Dose 0.5 MG; Start 08/04/16 at 12:00 Cefepime HCl (Maxipime 1gm/50 ml (Pmx)) 50 ml @ 100 mls/hr Q12 IVPB Last administered on 08/16/16 10:28; Admin Dose 100 MLS/HR; Start 08/08/16 at 16:00 Levothyroxine Sodium (Synthroid) 25 mcg DAILY@06 PO Last administered on 05:09; Admin Dose 25 MCG; Start 08/11/16 at 06:00 Docusate Sodium (Colace Liquid Cup) 100 mg Q12 GTB Last administered on 09:18; Admin Dose 100 MG; Start 08/11/16 at 10:30 Paroxetine HCl (Paxil) 10 mg DAILY PO Last administered on 08/16/16 09:32; Admin Dose 10 MG; Start 08/11/16 at 21:00 Insulin Aspart (Novolog Insulin Pen) NOVOLOG *MODERATE* ALGORI... Q6 SC Last administered on 08/14/16 13:29; Admin Dose 2 UNIT; Start 08/13/16 at 00:00 Famotidine (Pepcid) 20 mg Q12 GTB Last administered on 08/16/16 09:19; Admin Dose 20 MG; Start 08/13/16 at 09:00 Lactobacillus Acidoph/Bulgaricus (Floranex) 1 tab TID GTB Last administered on 08/16/16 09:18; Admin Dose 1 TAB; Start 08/15/16 at 21:30 Metformin HCl (Glucophage) 500 mg Q12 GTB Last administered on 08/16/16 09:19 ; Admin Dose 500 MG; Start 08/15/16 at 21:30 Linezolid (Zyvox) 600 mg BID GTB Last administered on 08/16/16 09:19; Admin Dose 600 MG; Start 08/15/16 at 21:30 Metronidazole (Flagyl) 500 mg Q8 GTB Last administered on 08/16/16 05:08; Admin Dose 500 MG; Start 08/15/16 at 22:00 Acetaminophen 650 mg 650 mg Q6H PRN GTB PAIN AND OR ELEVATED TEMP Last administered on 08/15/16 21:26; Admin Dose 650 MG; Start 08/15/16 at 21:30 Colistimethate Sodium 150 mg/ Sodium Chloride 100 ml @ 200 mls/hr Q12 IVPB ; Start 08/16/16 at 21:00 Potassium Chloride 250 ml @ 62.5 mls/hr Q4H IVPB Last administered on 11:04; Admin Dose 62.5 MLS/HR; Start 08/16/16 at 11:00; Stop 08/16/16 at 18 :59 Magnesium Sulfate (Magnesium Sulfate 4 Gm/100 ml) 100 ml @ 25 mls/hr ONCE ONCE IVPB ; Start 08/16/16 at 12:00; Stop 08/16/16 at 15:59 ALISSON ARRIOLA 16, 2017 12:01
[2016-08-16 12:43] LABS: Allen Test ACCEPTAB; Arterial Base Excess -1.3 mmol/L (-3.0-3); Arterial COHb 0.3 % (0.0-3.0); Arterial Fraction of Oxyhgb 95.2 % (93.0-99.0); Arterial HCO3 22.9 mmol/L (22.0-26.0); Arterial MetHb 0.3 % (0.0-1.5); Arterial Total Hemglobin 10.9 g/dl (12.0-18.0); MODE VENT - AC
--- NOTE | 2016-08-16 13:56 | RADRPT ---
PROCEDURE: XR Chest. CLINICAL INDICATION: Shortness of breath TECHNIQUE: Chest AP portable. COMPARISON: 08/13/2016 FINDINGS: Tracheostomy tube in place. No change in the left-sided Port-A-Cath. The mediastinal structures are unremarkable. The heart is normal in size and configuration. The pu lmonary vascularity is normal. There is no change in the LLL patchy consolidation and small to mode rate-sized left pleural effusion. There is a mild decrease in the RLL patchy consolidation and a de crease in the right pleural effusion. No pneumothorax is identified. The axial skeleton is unremar kable. IMPRESSION: No change in the LLL patchy consolidation. No change in small to moderate-sized left pleural effusion Decrease in RLL patchy consolidation Decrease in right pleural effusion RPTAT: [facility] .Shiv Cardenas MD, Date Time Electronically viewed and signed by .Shiv Cardenas MD, on 08/16/2016 13:55 .B/
--- NOTE | 2016-08-16 15:20 | CONS ---
Date/Time of Note Date/Time of Note DATE: 08/16/16 TIME: 15:19 Assessment/Plan Assessment/Plan Chief Complaint/Hosp Course SUBJECTIVE: Desaturated earlier, on .100 PEEP 5, Tm 102.3, lying comfortably in bed MICROBIOLOGY: Urine culture grew [place] albicans Pseudomonas aeruginosa. Wound culture growing multi-drug resistant Klebsiella pneumoniae and gram- negative rods and Enterococcus species. INDWELLINGS: Trach, PEG, Oliveira, left chest Port-A-Cath. ANTIMICROBIALS: 1. Colistin. 2. Zyvox. 3. Fluconazole. 4. Flagyl 5. Cefepime PHYSICAL EXAMINATION: GENERAL: Chronically ill-appearing, well-developed, middle-aged man who is lying comfortably in bed. HEENT: Head atraumatic, normocephalic. Sclerae anicteric. Buccal mucosa dry. CHEST: Rise symmetrical. Breath sounds diminished to bases. HEART: S1, S2. ABDOMEN: Soft, bowel tones present. EXTREMITIES: With trace edema. Left upper extremity more edematous. ASSESSMENT: 1. Sepsis with ongoing fevers. 2. Multiple decubitus with wound culture growing multi-drug resistant organisms. 3. Healthcare-associated pneumonia. 4. Multidrug resistant urinary tract infection. 5. History of Clostridium difficile colitis. 6. 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 7. Left chest Port-A-Cath. PLAN: Remains unchanged. Repeat bld cx negative, WBC scan negative, CT abdomen/ pelvis neg for OM, continue abx, aggressive pulmonary toilet, local wound care. ?needs bronchoscopy DW staff DW Dr Cheema Problems: Consultation Date/Type/Reason Admit Date/Time Jul 31, 2016 at 14:20 Initial Consult Date 08/02/16 Type of Consultation: ID Exam/Review of Systems Vital Signs Vitals Vital Signs Date Time Temp Pulse Resp B/P Pulse Ox O2 Delivery O2 Flow Rate FiO2 08/16/16 13:05 94 24 96 100 08/16/16 12:07 99.0 116/63 Intake and Output 08/15/16 08/15/16 08/16/16 15:00 23:00 07:00 Intake Total 1135 ml Output Total 2000 ml Balance -865 ml Results Result Diagram: 08/16/16 0650 08/16/16 0650 Results 24 hrs Laboratory Tests Test 08/15/16 17:57 08/15/16 23:48 08/16/16 02:42 08/16/16 06:50 Bedside Glucose 112 104 109 Anion Gap 12 Basophils # 0.0 Basophils % 0.2 Blood Urea Nitrogen 37 #H Calcium Level 8.7 Carbon Dioxide Level 21 Chloride Level 109 Creatinine 0.76 Eosinophils # 0.3 Eosinophils % 2.5 Glucose Level 90 Hematocrit 23.3 L Hemoglobin 7.6 L Lymphocytes # 0.6 L Lymphocytes % 4.1 L Magnesium Level 1.3 L Mean Corpuscular Hemoglobin 27.1 L Mean Corpuscular Hemoglobin Concent 32.6 Mean Corpuscular Volume 83.2 Mean Platelet Volume 10.4 Monocytes # 0.5 Monocytes % 3.9 Neutrophils # 11.7 H Neutrophils % 86.5 H Nucleated Red Blood Cells # 0.0 Nucleated Red Blood Cells % 0.0 Phosphorus Level 2.3 #L Platelet Count 289 Potassium Level 2.3 *L Red Blood Count 2.80 L Red Cell Distribution Width 17.2 H Sodium Level 140 White Blood Count 13.5 #H Test 08/16/16 07:13 08/16/16 12:26 08/16/16 13:20 Bedside Glucose 125 123 Arterial Blood HCO3 22.9 Arterial Blood Base Excess -1.3 Arterial Blood Oxygen Saturation 95.8 [place] Test ACCEPTAB Arterial Blood Gas Puncture Site Right Radial Arterial Blood Carboxyhemoglobin 0.3 Arterial Blood Date Drawn 08/16/2016 12:30:44 PM Arterial Blood Methemoglobin 0.3 Arterial Blood pCO2 (Temp correct) 32.1 L Arterial Blood pH (Temp corrected) 7.458 H Arterial Blood pO2 (Temp corrected) 71.1 L Blood Gas A-a O2 Differential 617.0 H Blood Gas Actual Respiration Rate 24 Blood Gas Low PEEP Setting 5.0 Blood Gas Modality VENT - AC Blood Gas Notified Time 08/16/2016 12:42:42 PM Blood Gas Notified Whom DT Blood Gas Respiration Rate 24.0 Blood Gas Specimen Source Blood arterial Blood Gas Temperature 34.0 Blood Gas Tidal Volume 500.0 FiO2 100.0 Oxyhemoglobin Percent 95.2 Total Hemoglobin 10.9 L Medications Medications Current Medications Ondansetron HCl (Zofran Inj) 4 mg Q6H PRN IV NAUSEA AND/OR VOMITING Last administered on 08/15/16t 05:11; Admin Dose 4 MG; Start 07/31/16 at 15:00 Morphine Sulfate (morphine) 2 mg Q4H PRN IV SEVERE PAIN LEVEL 7-10 Last administered on 08/02/16 20:59; Admin Dose 2 MG; Start 07/31/16 at 15:00 Magnesium Hydroxide (Milk Of Mag) 30 ml DAILY PRN PO CONSTIPATION; Start at 15:00 Sodium Biphosphate/ Sodium Phosphate (Fleet Enema) 133 ml DAILY PRN OR CONSTIPATION; Start 07/31/16 at 15:00 Hydralazine HCl (Apresoline) 10 mg Q6H PRN IV ELEVATED BLOOD PRESSURE; Start at 15:00 Nitroglycerin (Nitroglycerin (Sl Tab) 0.4 Mg) 1 tab Q5M PRN SL ANGINA; Start at 15:00 Miscellaneous Information 1 ea NOTE XX ; Start 07/31/16 at 16:30 Glucose (Glutose) 15 gm Q15M PRN PO DECREASED GLUCOSE; Start 07/31/16 at 16:30 Glucose (Glutose) 22.5 gm Q15M PRN PO DECREASED GLUCOSE; Start 07/31/16 at 16: 30 Dextrose (D50w Syringe) 25 ml Q15M PRN IV DECREASED GLUCOSE; Start 07/31/16 at 16:30 Dextrose (D50w Syringe) 50 ml Q15M PRN IV DECREASED GLUCOSE; Start 07/31/16 at 16:30 Glucagon (Glucagen) 1 mg Q15M PRN IM DECREASED GLUCOSE; Start 07/31/16 at 16:30 Glucose (Glutose) 15 gm Q15M PRN BUCCAL DECREASED GLUCOSE; Start 07/31/16 at 16 :30 Sodium Hypochlorite (Dakin'S (1/4 Strength)) 1 applic BID IRR Last administered on 08/16/16 09:19; Admin Dose 1 APPLIC; Start 08/01/16 at 21:00 Calcium Carbonate (Ca Carbonate) 1,250 mg BID GTB Last administered on 09:18; Admin Dose 1,250 MG; Start 08/01/16 at 22:30 Acetaminophen/ Hydrocodone Bitart ([place] (5/325)) 1 tab Q4H PRN PEG MODERATE PAIN LEVEL 4-6 Last administered on 08/16/16 02:28; Admin Dose 1 TAB; Start 08/02/16 at 00:00 Lorazepam (Ativan) 0.5 mg Q4H PRN IV ANXIETY Last administered on 08/16/16 02: 28; Admin Dose 0.5 MG; Start 08/02/16 at 00:00 Zolpidem Tartrate (Ambien) 10 mg HS PRN PEG INSOMNIA Last administered on 20:35; Admin Dose 10 MG; Start 08/02/16 at 03:30 Fluconazole (Diflucan) 100 mg DAILY PO Last administered on 08/16/16 09:32; Admin Dose 100 MG; Start 08/02/16 at 12:30 Ibuprofen (Motrin) 600 mg Q6H PRN PO PAIN OR TEMP ABOVE 38C Last administered on 08/11/16 21:29; Admin Dose 600 MG; Start 08/02/16 at 15:00 Zinc Sulfate (Zinc Sulfate) 220 mg DAILY GTB Last administered on 08/16/16 09: 19; Admin Dose 220 MG; Start 08/03/16 at 11:30 Multivitamins Therapeutic (Theragran) 1 tab DAILY PO Last administered on 09:32; Admin Dose 1 TAB; Start 08/03/16 at 11:30 Ascorbic Acid (Vitamin C) 500 mg BID GTB Last administered on 08/16/16 09:19; Admin Dose 500 MG; Start 08/03/16 at 11:30 Sodium Hypochlorite (Dakin'S (Dilute 1/40%)) 1 applic BID IRR Last administered on 08/16/16 09:20; Admin Dose 1 APPLIC; Start 08/04/16 at 12:00 Hydromorphone HCl 0.5 mg 0.5 mg Q8H PRN IV PAIN Last administered on 08/16/16 05:14; Admin Dose 0.5 MG; Start 08/04/16 at 12:00 Cefepime HCl (Maxipime 1gm/50 ml (Pmx)) 50 ml @ 100 mls/hr Q12 IVPB Last administered on 08/16/16 10:28; Admin Dose 100 MLS/HR; Start 08/08/16 at 16:00 Levothyroxine Sodium (Synthroid) 25 mcg DAILY@06 PO Last administered on 05:09; Admin Dose 25 MCG; Start 08/11/16 at 06:00 Docusate Sodium (Colace Liquid Cup) 100 mg Q12 GTB Last administered on 09:18; Admin Dose 100 MG; Start 08/11/16 at 10:30 Paroxetine HCl (Paxil) 10 mg DAILY PO Last administered on 08/16/16 09:32; Admin Dose 10 MG; Start 08/11/16 at 21:00 Insulin Aspart (Novolog Insulin Pen) NOVOLOG *MODERATE* ALGORI... Q6 SC Last administered on 08/14/16 13:29; Admin Dose 2 UNIT; Start 08/13/16 at 00:00 Famotidine (Pepcid) 20 mg Q12 GTB Last administered on 08/16/16 09:19; Admin Dose 20 MG; Start 08/13/16 at 09:00 Lactobacillus Acidoph/Bulgaricus (Floranex) 1 tab TID GTB Last administered on 08/16/16 12:57; Admin Dose 1 TAB; Start 08/15/16 at 21:30 Metformin HCl (Glucophage) 500 mg Q12 GTB Last administered on 08/16/16 09:19 ; Admin Dose 500 MG; Start 08/15/16 at 21:30 Linezolid (Zyvox) 600 mg BID GTB Last administered on 08/16/16 09:19; Admin Dose 600 MG; Start 08/15/16 at 21:30 Metronidazole (Flagyl) 500 mg Q8 GTB Last administered on 08/16/16 13:48; Admin Dose 500 MG; Start 08/15/16 at 22:00 Acetaminophen 650 mg 650 mg Q6H PRN GTB PAIN AND OR ELEVATED TEMP Last administered on 08/15/16 21:26; Admin Dose 650 MG; Start 08/15/16 at 21:30 Colistimethate Sodium 150 mg/ Sodium Chloride 100 ml @ 200 mls/hr Q12 IVPB ; Start 08/16/16 at 21:00 Potassium Chloride 250 ml @ 62.5 mls/hr Q4H IVPB Last administered on 11:04; Admin Dose 62.5 MLS/HR; Start 08/16/16 at 11:00; Stop 08/16/16 at 18 :59 Magnesium Sulfate (Magnesium Sulfate 4 Gm/100 ml) 100 ml @ 25 mls/hr ONCE ONCE IVPB Last administered on 08/16/16t 13:04; Admin Dose 25 MLS/HR; Start at 12:00; Stop 08/16/16 at 15:59 LESLIE FERRARO NP Aug 16, 2016 15:20
--- NOTE | 2016-08-16 16:09 | CONS ---
Date/Time of Note Date/Time of Note DATE: 08/16/16 TIME: 16:06 Assessment/Plan Assessment/Plan Additional Assessment/Plan Sepsis Acute decompensated systolic congestive heart failure Sinus tachycardia C2 fracture and quadriplegic Respiratory failure Cardiomyopathy with ejection fraction 50% via echo on previous admission Decubiti -Potassium and magnesium supplementation has already been ordered. Agree with blood transfusion. Consultation Date/Type/Reason Admit Date/Time Jul 31, 2016 at 14:20 Type of Consultation: cv 24 HR Interval Summary Free Text/Dictation Patient complains of fatigue but improved shortness of breath Exam/Review of Systems Vital Signs Vitals Vital Signs Date Time Temp Pulse Resp B/P Pulse Ox O2 Delivery O2 Flow Rate FiO2 08/16/16 15:21 99.2 98 19 94/53 98 08/16/16 15:20 95 Intake and Output 08/15/16 08/15/16 08/16/16 15:00 23:00 07:00 Intake Total 1135 ml Output Total 2000 ml Balance -865 ml Exam Tired, frail Constitutional: alert, oriented Neck: other (C-collar and tracheostomy) Respiratory: other (Coarse breath sounds bilaterally, no wheezing) Cardiovascular: other (S1-S2 heard), regular rate and rhythm Gastrointestinal: bowel sounds, non-tender, other (No guarding), soft Extremities: edema, other (No cyanosis) Results Result Diagram: 08/16/16 0650 08/16/16 0650 Results 24 hrs Laboratory Tests Test 08/15/16 17:57 08/15/16 23:48 08/16/16 02:42 08/16/16 06:50 Bedside Glucose 112 104 109 Anion Gap 12 Basophils # 0.0 Basophils % 0.2 Blood Urea Nitrogen 37 #H Calcium Level 8.7 Carbon Dioxide Level 21 Chloride Level 109 Creatinine 0.76 Eosinophils # 0.3 Eosinophils % 2.5 Glucose Level 90 Hematocrit 23.3 L Hemoglobin 7.6 L Lymphocytes # 0.6 L Lymphocytes % 4.1 L Magnesium Level 1.3 L Mean Corpuscular Hemoglobin 27.1 L Mean Corpuscular Hemoglobin Concent 32.6 Mean Corpuscular Volume 83.2 Mean Platelet Volume 10.4 Monocytes # 0.5 Monocytes % 3.9 Neutrophils # 11.7 H Neutrophils % 86.5 H Nucleated Red Blood Cells # 0.0 Nucleated Red Blood Cells % 0.0 Phosphorus Level 2.3 #L Platelet Count 289 Potassium Level 2.3 *L Red Blood Count 2.80 L Red Cell Distribution Width 17.2 H Sodium Level 140 White Blood Count 13.5 #H Test 08/16/16 07:13 08/16/16 12:26 08/16/16 13:20 Bedside Glucose 125 123 Arterial Blood HCO3 22.9 Arterial Blood Base Excess -1.3 Arterial Blood Oxygen Saturation 95.8 [place] Test ACCEPTAB Arterial Blood Gas Puncture Site Right Radial Arterial Blood Carboxyhemoglobin 0.3 Arterial Blood Date Drawn 08/16/2016 12:30:44 PM Arterial Blood Methemoglobin 0.3 Arterial Blood pCO2 (Temp correct) 32.1 L Arterial Blood pH (Temp corrected) 7.458 H Arterial Blood pO2 (Temp corrected) 71.1 L Blood Gas A-a O2 Differential 617.0 H Blood Gas Actual Respiration Rate 24 Blood Gas Low PEEP Setting 5.0 Blood Gas Modality VENT - AC Blood Gas Notified Time 08/16/2016 12:42:42 PM Blood Gas Notified Whom DT Blood Gas Respiration Rate 24.0 Blood Gas Specimen Source Blood arterial Blood Gas Temperature 34.0 Blood Gas Tidal Volume 500.0 FiO2 100.0 Oxyhemoglobin Percent 95.2 Total Hemoglobin 10.9 L Medications Medications Current Medications Ondansetron HCl (Zofran Inj) 4 mg Q6H PRN IV NAUSEA AND/OR VOMITING Last administered on 08/15/16 05:11; Admin Dose 4 MG; Start 07/31/16 at 15:00 Morphine Sulfate (morphine) 2 mg Q4H PRN IV SEVERE PAIN LEVEL 7-10 Last administered on 08/02/16 20:59; Admin Dose 2 MG; Start 07/31/16 at 15:00 Magnesium Hydroxide (Milk Of Mag) 30 ml DAILY PRN PO CONSTIPATION; Start at 15:00 Sodium Biphosphate/ Sodium Phosphate (Fleet Enema) 133 ml DAILY PRN HI CONSTIPATION; Start 07/31/16 at 15:00 Hydralazine HCl (Apresoline) 10 mg Q6H PRN IV ELEVATED BLOOD PRESSURE; Start at 15:00 Nitroglycerin (Nitroglycerin (Sl Tab) 0.4 Mg) 1 tab Q5M PRN SL ANGINA; Start at 15:00 Miscellaneous Information 1 ea NOTE XX ; Start 07/31/16 at 16:30 Glucose (Glutose) 15 gm Q15M PRN PO DECREASED GLUCOSE; Start 07/31/16 at 16:30 Glucose (Glutose) 22.5 gm Q15M PRN PO DECREASED GLUCOSE; Start 07/31/16 at 16: 30 Dextrose (D50w Syringe) 25 ml Q15M PRN IV DECREASED GLUCOSE; Start 07/31/16 at 16:30 Dextrose (D50w Syringe) 50 ml Q15M PRN IV DECREASED GLUCOSE; Start 07/31/16 at 16:30 Glucagon (Glucagen) 1 mg Q15M PRN IM DECREASED GLUCOSE; Start 07/31/16 at 16:30 Glucose (Glutose) 15 gm Q15M PRN BUCCAL DECREASED GLUCOSE; Start 07/31/16 at 16 :30 Sodium Hypochlorite (Dakin'S (1/4 Strength)) 1 applic BID IRR Last administered on 08/16/16 09:19; Admin Dose 1 APPLIC; Start 08/01/16 at 21:00 Calcium Carbonate (Ca Carbonate) 1,250 mg BID GTB Last administered on 09:18; Admin Dose 1,250 MG; Start 08/01/16 at 22:30 Acetaminophen/ Hydrocodone Bitart ([place] (5/325)) 1 tab Q4H PRN PEG MODERATE PAIN LEVEL 4-6 Last administered on 08/16/16 02:28; Admin Dose 1 TAB; Start 08/02/16 at 00:00 Lorazepam (Ativan) 0.5 mg Q4H PRN IV ANXIETY Last administered on 08/16/16 02: 28; Admin Dose 0.5 MG; Start 08/02/16 at 00:00 Zolpidem Tartrate (Ambien) 10 mg HS PRN PEG INSOMNIA Last administered on 20:35; Admin Dose 10 MG; Start 08/02/16 at 03:30 Fluconazole (Diflucan) 100 mg DAILY PO Last administered on 08/16/16 09:32; Admin Dose 100 MG; Start 08/02/16 at 12:30 Ibuprofen (Motrin) 600 mg Q6H PRN PO PAIN OR TEMP ABOVE 38C Last administered on 08/11/16 21:29; Admin Dose 600 MG; Start 08/02/16 at 15:00 Zinc Sulfate (Zinc Sulfate) 220 mg DAILY GTB Last administered on 08/16/16 09: 19; Admin Dose 220 MG; Start 08/03/16 at 11:30 Multivitamins Therapeutic (Theragran) 1 tab DAILY PO Last administered on 09:32; Admin Dose 1 TAB; Start 08/03/16 at 11:30 Ascorbic Acid (Vitamin C) 500 mg BID GTB Last administered on 08/16/16 09:19; Admin Dose 500 MG; Start 08/03/16 at 11:30 Sodium Hypochlorite (Dakin'S (Dilute 1/40%)) 1 applic BID IRR Last administered on 08/16/16 09:20; Admin Dose 1 APPLIC; Start 08/04/16 at 12:00 Hydromorphone HCl 0.5 mg 0.5 mg Q8H PRN IV PAIN Last administered on 08/16/16 05:14; Admin Dose 0.5 MG; Start 08/04/16 at 12:00 Cefepime HCl (Maxipime 1gm/50 ml (Pmx)) 50 ml @ 100 mls/hr Q12 IVPB Last administered on 08/16/16 10:28; Admin Dose 100 MLS/HR; Start 08/08/16 at 16:00 Levothyroxine Sodium (Synthroid) 25 mcg DAILY@06 PO Last administered on 05:09; Admin Dose 25 MCG; Start 08/11/16 at 06:00 Docusate Sodium (Colace Liquid Cup) 100 mg Q12 GTB Last administered on 09:18; Admin Dose 100 MG; Start 08/11/16 at 10:30 Paroxetine HCl (Paxil) 10 mg DAILY PO Last administered on 08/16/16 09:32; Admin Dose 10 MG; Start 08/11/16 at 21:00 Insulin Aspart (Novolog Insulin Pen) NOVOLOG *MODERATE* ALGORI... Q6 SC Last administered on 08/14/16 13:29; Admin Dose 2 UNIT; Start 08/13/16 at 00:00 Famotidine (Pepcid) 20 mg Q12 GTB Last administered on 08/16/16 09:19; Admin Dose 20 MG; Start 08/13/16 at 09:00 Lactobacillus Acidoph/Bulgaricus (Floranex) 1 tab TID GTB Last administered on 08/16/16 12:57; Admin Dose 1 TAB; Start 08/15/16 at 21:30 Metformin HCl (Glucophage) 500 mg Q12 GTB Last administered on 08/16/16 09:19 ; Admin Dose 500 MG; Start 08/15/16 at 21:30 Linezolid (Zyvox) 600 mg BID GTB Last administered on 08/16/16 09:19; Admin Dose 600 MG; Start 08/15/16 at 21:30 Metronidazole (Flagyl) 500 mg Q8 GTB Last administered on 08/16/16 13:48; Admin Dose 500 MG; Start 08/15/16 at 22:00 Acetaminophen 650 mg 650 mg Q6H PRN GTB PAIN AND OR ELEVATED TEMP Last administered on 08/15/16 21:26; Admin Dose 650 MG; Start 08/15/16 at 21:30 Colistimethate Sodium 150 mg/ Sodium Chloride 100 ml @ 200 mls/hr Q12 IVPB ; Start 08/16/16 at 21:00 Potassium Chloride (KCl 40 MEQ/250 ML NS) 250 ml @ 62.5 mls/hr Q4H IVPB Last administered on 08/16/16 11:04; Admin Dose 62.5 MLS/HR; Start 08/16/16 at 11:00 ; Stop 08/16/16 at 18:59 Kb Barrett 16, 2017 16:08
--- NOTE | 2016-08-16 18:45 | PN ---
Date/Time of Note Date/Time of Note DATE: 08/16/16 TIME: 18:42 Assessment/Plan VTE Prophylaxis VTE Prophylaxis Intervention: SCD's Lines/Catheters IV C[facility]ter Type [facility]from [facility] Assessment/Plan Chief Complaint/Hosp Course 1. Sepsis - sec to resp infection+ UTI + decubitus ulcer infx Continue antibiotics WBC scan is negative, CT abdomen and pelvis shows no evidence of osteomyelitis, repeat blood cultures are negative Follow up with ID recommendations 2. Chronic respiratory failure,Vent dependent via trach 3. Recurrent Multifocal bronchitis/bronchiolitis/bronchopneumonia Chest x-ray shows improvement 4. Chronic Dysphagia currently on G-tube feeds. 07/05 #5 5. C2 fracture 07/05 fall in April 2016 + chronic neuropathy with cervical collar Per patient he was meant to have collar only for 4months, neurosurgery consultation appreciated collar now removed 6. Multiple infected decubiti down to the bone Continue antibiotics Per surgery, Patient needs diverting colostomy but was having cardiac issues and is still mildly septic, awaiting stabilization 7. Anemia of chronic disease 8. DM 2 with suboptimal control: stable on metformin 9. Cardiomyopathy with ejection fraction 45-50% via echo on previous admission 10. Pseudomonas / Addis UTI 11. New Hypothyroidism 12. Probable Depression : patient was refusing turning and wound care / started on Paxil 13. FEN Replace electrolytes Dispo: Patient would like to go to back to the congregate living that he came from Prophylaxis: H2 pam / SCDs Problems: Subjective 24 Hr Interval Summary Constitutional: no complaints Exam/Review of Systems Vital Signs Vitals Vital Signs Date Time Temp Pulse Resp B/P Pulse Ox O2 Delivery O2 Flow Rate FiO2 08/16/16 17:10 97 24 100 95 08/16/16 15:21 99.2 94/53 Intake and Output 08/15/16 08/15/16 08/16/16 15:00 23:00 07:00 Intake Total 1135 ml Output Total 2000 ml Balance -865 ml Exam Constitutional: alert Respiratory: clear to auscultation Cardiovascular: regular rate and rhythm Gastrointestinal: soft, No distended Musculoskeletal: nl extremities to inspection Results Result Diagram: 08/16/16 0650 08/16/16 0650 Results 24 hrs Laboratory Tests Test 08/15/16 23:48 08/16/16 02:42 08/16/16 06:50 08/16/16 07:13 Bedside Glucose 104 109 125 Anion Gap 12 Basophils # 0.0 Basophils % 0.2 Blood Urea Nitrogen 37 #H Calcium Level 8.7 Carbon Dioxide Level 21 Chloride Level 109 Creatinine 0.76 Eosinophils # 0.3 Eosinophils % 2.5 Glucose Level 90 Hematocrit 23.3 L Hemoglobin 7.6 L Lymphocytes # 0.6 L Lymphocytes % 4.1 L Magnesium Level 1.3 L Mean Corpuscular Hemoglobin 27.1 L Mean Corpuscular Hemoglobin Concent 32.6 Mean Corpuscular Volume 83.2 Mean Platelet Volume 10.4 Monocytes # 0.5 Monocytes % 3.9 Neutrophils # 11.7 H Neutrophils % 86.5 H Nucleated Red Blood Cells # 0.0 Nucleated Red Blood Cells % 0.0 Phosphorus Level 2.3 #L Platelet Count 289 Potassium Level 2.3 *L Red Blood Count 2.80 L Red Cell Distribution Width 17.2 H Sodium Level 140 White Blood Count 13.5 #H Test 08/16/16 12:26 08/16/16 13:20 08/16/16 17:32 Arterial Blood HCO3 22.9 Arterial Blood Base Excess -1.3 Arterial Blood Oxygen Saturation 95.8 [place] Test ACCEPTAB Arterial Blood Gas Puncture Site Right Radial Arterial Blood Carboxyhemoglobin 0.3 Arterial Blood Date Drawn 08/16/2016 12:30:44 PM Arterial Blood Methemoglobin 0.3 Arterial Blood pCO2 (Temp correct) 32.1 L Arterial Blood pH (Temp corrected) 7.458 H Arterial Blood pO2 (Temp corrected) 71.1 L Blood Gas A-a O2 Differential 617.0 H Blood Gas Actual Respiration Rate 24 Blood Gas Low PEEP Setting 5.0 Blood Gas Modality VENT - AC Blood Gas Notified Time 08/16/2016 12:42:42 PM Blood Gas Notified Whom DT Blood Gas Respiration Rate 24.0 Blood Gas Specimen Source Blood arterial Blood Gas Temperature 34.0 Blood Gas Tidal Volume 500.0 FiO2 100.0 Oxyhemoglobin Percent 95.2 Total Hemoglobin 10.9 L Bedside Glucose 123 121 Medications Medications Current Medications Ondansetron HCl (Zofran Inj) 4 mg Q6H PRN IV NAUSEA AND/OR VOMITING Last administered on 08/15/16t 05:11; Admin Dose 4 MG; Start 07/31/16 at 15:00 Morphine Sulfate (morphine) 2 mg Q4H PRN IV SEVERE PAIN LEVEL 7-10 Last administered on 08/02/16 20:59; Admin Dose 2 MG; Start 07/31/16 at 15:00 Magnesium Hydroxide (Milk Of Mag) 30 ml DAILY PRN PO CONSTIPATION; Start at 15:00 Sodium Biphosphate/ Sodium Phosphate (Fleet Enema) 133 ml DAILY PRN [place] CONSTIPATION; Start 07/31/16 at 15:00 Hydralazine HCl (Apresoline) 10 mg Q6H PRN IV ELEVATED BLOOD PRESSURE; Start at 15:00 Nitroglycerin (Nitroglycerin (Sl Tab) 0.4 Mg) 1 tab Q5M PRN SL ANGINA; Start at 15:00 Miscellaneous Information 1 ea NOTE XX ; Start 07/31/16 at 16:30 Glucose (Glutose) 15 gm Q15M PRN PO DECREASED GLUCOSE; Start 07/31/16 at 16:30 Glucose (Glutose) 22.5 gm Q15M PRN PO DECREASED GLUCOSE; Start 07/31/16 at 16: 30 Dextrose (D50w Syringe) 25 ml Q15M PRN IV DECREASED GLUCOSE; Start 07/31/16 at 16:30 Dextrose (D50w Syringe) 50 ml Q15M PRN IV DECREASED GLUCOSE; Start 07/31/16 at 16:30 Glucagon (Glucagen) 1 mg Q15M PRN IM DECREASED GLUCOSE; Start 07/31/16 at 16:30 Glucose (Glutose) 15 gm Q15M PRN BUCCAL DECREASED GLUCOSE; Start 07/31/16 at 16 :30 Sodium Hypochlorite (Dakin'S (1/4 Strength)) 1 applic BID IRR Last administered on 08/16/16 09:19; Admin Dose 1 APPLIC; Start 08/01/16 at 21:00 Calcium Carbonate (Ca Carbonate) 1,250 mg BID GTB Last administered on 09:18; Admin Dose 1,250 MG; Start 08/01/16 at 22:30 Acetaminophen/ Hydrocodone Bitart ([place] (5/325)) 1 tab Q4H PRN PEG MODERATE PAIN LEVEL 4-6 Last administered on 08/16/16 02:28; Admin Dose 1 TAB; Start 08/02/16 at 00:00 Lorazepam (Ativan) 0.5 mg Q4H PRN IV ANXIETY Last administered on 08/16/16 02: 28; Admin Dose 0.5 MG; Start 08/02/16 at 00:00 Zolpidem Tartrate (Ambien) 10 mg HS PRN PEG INSOMNIA Last administered on 20:35; Admin Dose 10 MG; Start 08/02/16 at 03:30 Fluconazole (Diflucan) 100 mg DAILY PO Last administered on 08/16/16 09:32; Admin Dose 100 MG; Start 08/02/16 at 12:30 Ibuprofen (Motrin) 600 mg Q6H PRN PO PAIN OR TEMP ABOVE 38C Last administered on 08/11/16 21:29; Admin Dose 600 MG; Start 08/02/16 at 15:00 Zinc Sulfate (Zinc Sulfate) 220 mg DAILY GTB Last administered on 08/16/16 09: 19; Admin Dose 220 MG; Start 08/03/16 at 11:30 Multivitamins Therapeutic (Theragran) 1 tab DAILY PO Last administered on 09:32; Admin Dose 1 TAB; Start 08/03/16 at 11:30 Ascorbic Acid (Vitamin C) 500 mg BID GTB Last administered on 08/16/16 09:19; Admin Dose 500 MG; Start 08/03/16 at 11:30 Sodium Hypochlorite (Dakin'S (Dilute 1/40%)) 1 applic BID IRR Last administered on 08/16/16 09:20; Admin Dose 1 APPLIC; Start 08/04/16 at 12:00 Hydromorphone HCl 0.5 mg 0.5 mg Q8H PRN IV PAIN Last administered on 08/16/16 05:14; Admin Dose 0.5 MG; Start 08/04/16 at 12:00 Cefepime HCl (Maxipime 1gm/50 ml (Pmx)) 50 ml @ 100 mls/hr Q12 IVPB Last administered on 08/16/16 10:28; Admin Dose 100 MLS/HR; Start 08/08/16 at 16:00 Levothyroxine Sodium (Synthroid) 25 mcg DAILY@06 PO Last administered on 05:09; Admin Dose 25 MCG; Start 08/11/16 at 06:00 Docusate Sodium (Colace Liquid Cup) 100 mg Q12 GTB Last administered on 09:18; Admin Dose 100 MG; Start 08/11/16 at 10:30 Paroxetine HCl (Paxil) 10 mg DAILY PO Last administered on 08/16/16 09:32; Admin Dose 10 MG; Start 08/11/16 at 21:00 Insulin Aspart (Novolog Insulin Pen) NOVOLOG *MODERATE* ALGORI... Q6 SC Last administered on 08/14/16 13:29; Admin Dose 2 UNIT; Start 08/13/16 at 00:00 Famotidine (Pepcid) 20 mg Q12 GTB Last administered on 08/16/16 09:19; Admin Dose 20 MG; Start 08/13/16 at 09:00 Lactobacillus Acidoph/Bulgaricus (Floranex) 1 tab TID GTB Last administered on 08/16/16 12:57; Admin Dose 1 TAB; Start 08/15/16 at 21:30 Metformin HCl (Glucophage) 500 mg Q12 GTB Last administered on 08/16/16 09:19 ; Admin Dose 500 MG; Start 08/15/16 at 21:30 Linezolid (Zyvox) 600 mg BID GTB Last administered on 08/16/16 09:19; Admin Dose 600 MG; Start 08/15/16 at 21:30 Metronidazole (Flagyl) 500 mg Q8 GTB Last administered on 08/16/16 13:48; Admin Dose 500 MG; Start 08/15/16 at 22:00 Acetaminophen 650 mg 650 mg Q6H PRN GTB PAIN AND OR ELEVATED TEMP Last administered on 08/15/16 21:26; Admin Dose 650 MG; Start 08/15/16 at 21:30 Colistimethate Sodium 150 mg/ Sodium Chloride 100 ml @ 200 mls/hr Q12 IVPB ; Start 08/16/16 at 21:00 Potassium Chloride (KCl 40 MEQ/250 ML NS) 250 ml @ 62.5 mls/hr Q4H IVPB Last administered on 08/16/16 16:18; Admin Dose 62.5 MLS/HR; Start 08/16/16 at 11:00 ; Stop 08/16/16 at 18:59 JAMISON STANTON Aug 16, 2016 18:45
[2016-08-16] MEDS: ALBUTEROL/IPRATROPIUM (NEB) 3 ML AMP HHN PRN (20:46)
[2016-08-16] MEDS: ACETAMINOPHEN 325 MG TAB GTB PRN (21:12)
[2016-08-16] MEDS: COLISTIMETHATE 150 MG in SOD CHLORIDE 0.9% 100 ML IVPB SCH (21:37)
[2016-08-17] VITALS (24 sets, daily range): BP systolic 89–125; BP diastolic 50–70; PULSE 93–111; RESP 17–24
[2016-08-17] MEDS: HYDROCODONE/APAP (5/325) TAB PEG PRN (00:26)
[2016-08-17] MEDS: INSULIN ASPART [NOVOLOG] 3 ML PEN SC SCH ×4 (06:00→17:35)
[2016-08-17] MEDS: ACETAMINOPHEN 325 MG TAB GTB PRN ×3 (06:06→20:43)
[2016-08-17] MEDS: LEVOTHYROXINE 25 MCG TAB PO SCH (06:06)
[2016-08-17] MEDS: metroNIDAZOLE 500 MG TAB GTB SCH ×3 (06:06→22:07)
[2016-08-17] MEDS: LORAZEPAM 2 MG INJ IV PRN ×2 (06:30→20:43)
[2016-08-17 06:55] LABS: ADD SCAN DIFF NO
[2016-08-17 06:57] LABS: BASOPHIL # 0.1 10^3/ul (0.0-0.1); BASOPHILS % 0.2 % (0.0-2.0); EOSINOPHILS # 0.3 10^3/ul (0.0-0.5); EOSINOPHILS % 1.4 % (0.0-7.0); HEMATOCRIT 26.5 % (42.0-52.0); HEMOGLOBIN 8.3 g/dl (14.0-18.0); LYMPHOCYTES # 0.6 10^3/ul (0.8-2.9); LYMPHOCYTES % 3.1 % (15.0-51.0); MEAN CORPUSCULAR HEMOGLOBIN 26.8 pg (29.0-33.0); MEAN CORPUSCULAR HGB CONC 31.3 g/dl (32.0-37.0); MEAN CORPUSCULAR VOLUME 85.5 fl (82.0-101.0); MEAN PLATELET VOLUME 9.8 fl (7.4-10.4); MONOCYTE # 0.7 10^3/ul (0.3-0.9); MONOCYTES % 3.4 % (0.0-11.0); NEUTROPHIL # 18.4 10^3/ul (1.6-7.5); NEUTROPHILS % 90.8 % (39.0-77.0); PLATELET COUNT 345 10^3/UL (140-415); RED CELL DISTRIBUTION WIDTH 17.2 % (11.5-14.5); WHITE BLOOD COUNT 20.3 10^3/ul (4.8-10.8)
[2016-08-17 07:19] LABS: CREATININE 0.86 mg/dl (0.61-1.24)
[2016-08-17 07:20] LABS: MAGNESIUM 2.2 mg/dl (1.7-2.5)
--- NOTE | 2016-08-17 09:06 | CONS ---
Date/Time of Note Date/Time of Note DATE: 08/17/16 TIME: 09:04 Assessment/Plan Assessment/Plan Additional Assessment/Plan Ventilator settings [place]: AC of 24, tidal volume 500, PEEP of 5, 40% FiO2. Assessment recommendations; 1. Patient with history of chronic respiratory failure due to quadriplegia admitted for severe bilateral pneumonia with significant improvement in oxygenation status today. 2. Persistent low-grade sepsis due to multiple sacral decubitus ulcers. 3. Hypertension. 4. Systolic dysfunction. Continue current supportive care. Continue current antibiotics, ventilator settings. Chest x-ray is pending from today. Consultation Date/Type/Reason Admit Date/Time Jul 31, 2016 at 14:20 Initial Consult Date 08/02/16 Type of Consultation: Pulmonary 24 HR Interval Summary Free Text/Dictation Patient condition is significantly improved compared to yesterday patient all only on 40% FiO2 with marked improvement in respiratory status. Remains awake and alert. Has remained hemodynamically stable. General exam; young male, on ventilator via tracheostomy currently in no distress. Exam/Review of Systems Vital Signs Vitals Vital Signs Date Time Temp Pulse Resp B/P Pulse Ox O2 Delivery O2 Flow Rate FiO2 08/17/16 08:57 93 08/17/16 07:43 97.9 19 89/50 97 08/17/16 07:20 40 Intake and Output 08/16/16 08/16/16 08/17/16 15:00 23:00 07:00 Intake Total 1220 ml 50 ml Output Total 4000 ml Balance -2780 ml 50 ml Exam HEENT exam; no JVD. Tracheostomy in place with clean insertion site. Suppleness of neck was not evaluated at the patient is in a soft C-spine collar. Pharynx is clear. Pupils are midsize reactive to light. Chest examination; diminished breath on lung bases, upper lobes are clear to auscultation. S1-S2 audible, no murmurs. Regular rhythm. Abdomen examination; soft, nondistended. No organomegaly. G-tube in place. Bowel sounds audible. Back examination reveals dressing applied over sacral and posterior upper thighs. Extremity exam is; no peripheral edema. Next ORGANIZATIONAL DEVELOPMENT MANAGER examination; patient is stable quadriplegia. Results Result Diagram: 08/17/16 0620 08/17/16 0620 Results 24 hrs Laboratory Tests Test 3/16/17 12:26 08/16/16 13:20 08/16/16 17:32 08/17/16 00:46 Arterial Blood HCO3 22.9 Arterial Blood Base Excess -1.3 Arterial Blood Oxygen Saturation 95.8 [place] Test ACCEPTAB Arterial Blood Gas Puncture Site Right Radial Arterial Blood Carboxyhemoglobin 0.3 Arterial Blood Date Drawn 08/16/2016 12:30:44 PM Arterial Blood Methemoglobin 0.3 Arterial Blood pCO2 (Temp correct) 32.1 L Arterial Blood pH (Temp corrected) 7.458 H Arterial Blood pO2 (Temp corrected) 71.1 L Blood Gas A-a O2 Differential 617.0 H Blood Gas Actual Respiration Rate 24 Blood Gas Low PEEP Setting 5.0 Blood Gas Modality VENT - AC Blood Gas Notified Time 08/16/2016 12:42:42 PM Blood Gas Notified Whom DT Blood Gas Respiration Rate 24.0 Blood Gas Specimen Source Blood arterial Blood Gas Temperature 34.0 Blood Gas Tidal Volume 500.0 FiO2 100.0 Oxyhemoglobin Percent 95.2 Total Hemoglobin 10.9 L Bedside Glucose 123 121 136 Test 08/17/16 06:09 08/17/16 06:20 Bedside Glucose 130 Anion Gap 13 Basophils # 0.1 Basophils % 0.2 Blood Urea Nitrogen 49 #H Calcium Level 11.0 #H Carbon Dioxide Level 25 Chloride Level 98 # Creatinine 0.86 Eosinophils # 0.3 Eosinophils % 1.4 Glucose Level 117 Hematocrit 26.5 L Hemoglobin 8.3 L Lymphocytes # 0.6 L Lymphocytes % 3.1 L Magnesium Level 2.2 Mean Corpuscular Hemoglobin 26.8 L Mean Corpuscular Hemoglobin Concent 31.3 L Mean Corpuscular Volume 85.5 Mean Platelet Volume 9.8 Monocytes # 0.7 Monocytes % 3.4 Neutrophils # 18.4 H Neutrophils % 90.8 H Nucleated Red Blood Cells # 0.0 Nucleated Red Blood Cells % 0.0 Phosphorus Level 3.0 Platelet Count 345 Potassium Level 4.0 Red Blood Count 3.10 L Red Cell Distribution Width 17.2 H Sodium Level 132 L White Blood Count 20.3 #H Medications Medications Current Medications Ondansetron HCl (Zofran Inj) 4 mg Q6H PRN IV NAUSEA AND/OR VOMITING Last administered on 08/15/16t 05:11; Admin Dose 4 MG; Start 07/31/16 at 15:00 Morphine Sulfate (morphine) 2 mg Q4H PRN IV SEVERE PAIN LEVEL 7-10 Last administered on 08/02/16 20:59; Admin Dose 2 MG; Start 07/31/16 at 15:00 Magnesium Hydroxide (Milk Of Mag) 30 ml DAILY PRN PO CONSTIPATION; Start at 15:00 Sodium Biphosphate/ Sodium Phosphate (Fleet Enema) 133 ml DAILY PRN IN CONSTIPATION; Start 07/31/16 at 15:00 Hydralazine HCl (Apresoline) 10 mg Q6H PRN IV ELEVATED BLOOD PRESSURE; Start at 15:00 Nitroglycerin (Nitroglycerin (Sl Tab) 0.4 Mg) 1 tab Q5M PRN SL ANGINA; Start at 15:00 Miscellaneous Information 1 ea NOTE XX ; Start 07/31/16 at 16:30 Glucose (Glutose) 15 gm Q15M PRN PO DECREASED GLUCOSE; Start 07/31/16 at 16:30 Glucose (Glutose) 22.5 gm Q15M PRN PO DECREASED GLUCOSE; Start 07/31/16 at 16: 30 Dextrose (D50w Syringe) 25 ml Q15M PRN IV DECREASED GLUCOSE; Start 07/31/16 at 16:30 Dextrose (D50w Syringe) 50 ml Q15M PRN IV DECREASED GLUCOSE; Start 07/31/16 at 16:30 Glucagon (Glucagen) 1 mg Q15M PRN IM DECREASED GLUCOSE; Start 07/31/16 at 16:30 Glucose (Glutose) 15 gm Q15M PRN BUCCAL DECREASED GLUCOSE; Start 07/31/16 at 16 :30 Sodium Hypochlorite (Dakin'S (1/4 Strength)) 1 applic BID IRR Last administered on 08/16/16 21:22; Admin Dose 1 APPLIC; Start 08/01/16 at 21:00 Calcium Carbonate (Ca Carbonate) 1,250 mg BID GTB Last administered on 21:12; Admin Dose 1,250 MG; Start 08/01/16 at 22:30 Acetaminophen/ Hydrocodone Bitart ([place] (5/325)) 1 tab Q4H PRN PEG MODERATE PAIN LEVEL 4-6 Last administered on 08/17/16 00:26; Admin Dose 1 TAB; Start 08/02/16 at 00:00 Lorazepam (Ativan) 0.5 mg Q4H PRN IV ANXIETY Last administered on 08/17/16 06: 30; Admin Dose 0.5 MG; Start 08/02/16 at 00:00 Zolpidem Tartrate (Ambien) 10 mg HS PRN PEG INSOMNIA Last administered on 20:35; Admin Dose 10 MG; Start 08/02/16 at 03:30 Fluconazole (Diflucan) 100 mg DAILY PO Last administered on 08/16/16 09:32; Admin Dose 100 MG; Start 08/02/16 at 12:30 Ibuprofen (Motrin) 600 mg Q6H PRN PO PAIN OR TEMP ABOVE 38C Last administered on 08/11/16 21:29; Admin Dose 600 MG; Start 08/02/16 at 15:00 Zinc Sulfate (Zinc Sulfate) 220 mg DAILY GTB Last administered on 08/16/16 09: 19; Admin Dose 220 MG; Start 08/03/16 at 11:30 Multivitamins Therapeutic (Theragran) 1 tab DAILY PO Last administered on 09:32; Admin Dose 1 TAB; Start 08/03/16 at 11:30 Ascorbic Acid (Vitamin C) 500 mg BID GTB Last administered on 08/16/16 21:12; Admin Dose 500 MG; Start 08/03/16 at 11:30 Sodium Hypochlorite (Dakin'S (Dilute 1/40%)) 1 applic BID IRR Last administered on 08/16/16 21:22; Admin Dose 1 APPLIC; Start 08/04/16 at 12:00 Hydromorphone HCl 0.5 mg 0.5 mg Q8H PRN IV PAIN Last administered on 08/16/16 05:14; Admin Dose 0.5 MG; Start 08/04/16 at 12:00 Cefepime HCl (Maxipime 1gm/50 ml (Pmx)) 50 ml @ 100 mls/hr Q12 IVPB Last administered on 08/16/16 21:11; Admin Dose 100 MLS/HR; Start 08/08/16 at 16:00 Levothyroxine Sodium (Synthroid) 25 mcg DAILY@06 PO Last administered on 06:06; Admin Dose 25 MCG; Start 08/11/16 at 06:00 Docusate Sodium (Colace Liquid Cup) 100 mg Q12 GTB Last administered on 21:12; Admin Dose 100 MG; Start 08/11/16 at 10:30 Paroxetine HCl (Paxil) 10 mg DAILY PO Last administered on 08/16/16 09:32; Admin Dose 10 MG; Start 08/11/16 at 21:00 Insulin Aspart (Novolog Insulin Pen) NOVOLOG *MODERATE* ALGORI... Q6 SC Last administered on 08/14/16 13:29; Admin Dose 2 UNIT; Start 08/13/16 at 00:00 Famotidine (Pepcid) 20 mg Q12 GTB Last administered on 08/16/16 21:12; Admin Dose 20 MG; Start 08/13/16 at 09:00 Lactobacillus Acidoph/Bulgaricus (Floranex) 1 tab TID GTB Last administered on 08/16/16 21:12; Admin Dose 1 TAB; Start 08/15/16 at 21:30 Metformin HCl (Glucophage) 500 mg Q12 GTB Last administered on 08/16/16 21:12 ; Admin Dose 500 MG; Start 08/15/16 at 21:30 Linezolid (Zyvox) 600 mg BID GTB Last administered on 08/16/16 21:12; Admin Dose 600 MG; Start 08/15/16 at 21:30 Metronidazole (Flagyl) 500 mg Q8 GTB Last administered on 08/17/16 06:06; Admin Dose 500 MG; Start 08/15/16 at 22:00 Acetaminophen 650 mg 650 mg Q6H PRN GTB PAIN AND OR ELEVATED TEMP Last administered on 08/17/16 06:06; Admin Dose 650 MG; Start 08/15/16 at 21:30 Colistimethate Sodium/Sodium Chloride ([place]-Mycin/NS) 100 ml @ 200 mls/hr Q12 IVPB Last administered on 08/16/16 21:37; Admin Dose 200 MLS/HR; Start at 21:00 ALISSON ARRIOLA 17, 2017 09:06
[2016-08-17] MEDS: PAROXETINE 10 MG TAB PO SCH (09:24)
[2016-08-17] MEDS: CEFEPIME 1GM/50 ML (PMX) 50 ML IVPB SCH ×2 (09:24→20:41)
[2016-08-17] MEDS: ZINC SULFATE 220 MG CAP GTB SCH (09:24)
[2016-08-17] MEDS: LACTOBACILLUS CHEW TAB GTB SCH ×3 (09:24→20:42)
[2016-08-17] MEDS: FAMOTIDINE 20 MG TAB GTB SCH ×2 (09:24→20:42)
[2016-08-17] MEDS: ZYVOX 600 MG TAB GTB SCH ×2 (09:24→20:42)
[2016-08-17] MEDS: CA CARBONATE (250 MG/ML) 5ML CUP GTB SCH ×2 (09:24→20:42)
[2016-08-17] MEDS: COLISTIMETHATE 150 MG in SOD CHLORIDE 0.9% 100 ML IVPB SCH ×2 (09:24→22:07)
[2016-08-17] MEDS: MULTIVITAMINS THERAPEUTIC TAB PO SCH (09:24)
[2016-08-17] MEDS: metFORMIN 500 MG TAB GTB SCH ×2 (09:24→22:07)
[2016-08-17] MEDS: FLUCONAZOLE 100 MG TAB PO SCH (09:24)
[2016-08-17] MEDS: DOCUSATE SODIUM 10 MG/ML (10ML CUP) GTB SCH ×2 (09:24→20:42)
[2016-08-17] MEDS: ASCORBIC ACID 500 MG TAB GTB SCH ×2 (09:25→20:42)
[2016-08-17] MEDS: SODIUM HYPOCHLORITE 0.125% 473 ML BTL IRR SCH ×2 (09:25→21:05)
[2016-08-17] MEDS: SODIUM HYPOCHLORITE 1/40% 1L IRRIG IRR SCH ×2 (09:25→21:05)
--- NOTE | 2016-08-17 12:20 | CONS ---
Date/Time of Note Date/Time of Note DATE: 08/17/16 TIME: 12:18 Assessment/Plan Assessment/Plan Additional Assessment/Plan Sepsis Acute decompensated systolic congestive heart failure Sinus tachycardia C2 fracture and quadriplegic Respiratory failure Cardiomyopathy with ejection fraction 50% via echo on previous admission Decubiti -Heart rate trend overall stable with episodes of sinus tachycardia likely secondary to sepsis and fevers. No new cardiac orders at the current time. Consultation Date/Type/Reason Admit Date/Time Jul 31, 2016 at 14:20 Type of Consultation: cv 24 HR Interval Summary Free Text/Dictation Patient denies shortness of breath, complaining of fatigue Exam/Review of Systems Vital Signs Vitals Vital Signs Date Time Temp Pulse Resp B/P Pulse Ox O2 Delivery O2 Flow Rate FiO2 08/17/16 11:55 98.0 68 19 125/68 98 08/17/16 11:10 40 Intake and Output 08/16/16 08/16/16 08/17/16 14:59 22:59 06:59 Intake Total 1220 ml 50 ml Output Total 4000 ml Balance -2780 ml 50 ml Exam Sleeping but arousable, able to give history, no apparent distress Neck: other (Tracheostomy) Respiratory: other (Coarse breath sounds bilaterally with scattered rhonchi, no wheezing) Cardiovascular: other (S1-S2 heard), regular rate and rhythm Gastrointestinal: bowel sounds, non-tender, other (No grimacing with palpation) , soft Extremities: edema, other (No cyanosis) Results Result Diagram: 08/17/16 0620 08/17/16 0620 Results 24 hrs Laboratory Tests Test 08/16/16 12:26 08/16/16 13:20 08/16/16 17:32 08/17/16 00:46 Arterial Blood HCO3 22.9 Arterial Blood Base Excess -1.3 Arterial Blood Oxygen Saturation 95.8 [place] Test ACCEPTAB Arterial Blood Gas Puncture Site Right Radial Arterial Blood Carboxyhemoglobin 0.3 Arterial Blood Date Drawn 08/16/2016 12:30:44 PM Arterial Blood Methemoglobin 0.3 Arterial Blood pCO2 (Temp correct) 32.1 L Arterial Blood pH (Temp corrected) 7.458 H Arterial Blood pO2 (Temp corrected) 71.1 L Blood Gas A-a O2 Differential 617.0 H Blood Gas Actual Respiration Rate 24 Blood Gas Low PEEP Setting 5.0 Blood Gas Modality VENT - AC Blood Gas Notified Time 08/16/2016 12:42:42 PM Blood Gas Notified Whom DT Blood Gas Respiration Rate 24.0 Blood Gas Specimen Source Blood arterial Blood Gas Temperature 34.0 Blood Gas Tidal Volume 500.0 FiO2 100.0 Oxyhemoglobin Percent 95.2 Total Hemoglobin 10.9 L Bedside Glucose 123 121 136 Test 08/17/16 06:09 08/17/16 06:20 08/17/16 11:42 Bedside Glucose 130 137 Anion Gap 13 Basophils # 0.1 Basophils % 0.2 Blood Urea Nitrogen 49 #H Calcium Level 11.0 #H Carbon Dioxide Level 25 Chloride Level 98 # Creatinine 0.86 Eosinophils # 0.3 Eosinophils % 1.4 Glucose Level 117 Hematocrit 26.5 L Hemoglobin 8.3 L Lymphocytes # 0.6 L Lymphocytes % 3.1 L Magnesium Level 2.2 Mean Corpuscular Hemoglobin 26.8 L Mean Corpuscular Hemoglobin Concent 31.3 L Mean Corpuscular Volume 85.5 Mean Platelet Volume 9.8 Monocytes # 0.7 Monocytes % 3.4 Neutrophils # 18.4 H Neutrophils % 90.8 H Nucleated Red Blood Cells # 0.0 Nucleated Red Blood Cells % 0.0 Phosphorus Level 3.0 Platelet Count 345 Potassium Level 4.0 Red Blood Count 3.10 L Red Cell Distribution Width 17.2 H Sodium Level 132 L White Blood Count 20.3 #H Medications Medications Current Medications Ondansetron HCl (Zofran Inj) 4 mg Q6H PRN IV NAUSEA AND/OR VOMITING Last administered on 08/15/16 05:11; Admin Dose 4 MG; Start 07/31/16 at 15:00 Morphine Sulfate (morphine) 2 mg Q4H PRN IV SEVERE PAIN LEVEL 7-10 Last administered on 08/02/16 20:59; Admin Dose 2 MG; Start 07/31/16 at 15:00 Magnesium Hydroxide (Milk Of Mag) 30 ml DAILY PRN PO CONSTIPATION; Start at 15:00 Sodium Biphosphate/ Sodium Phosphate (Fleet Enema) 133 ml DAILY PRN [place] CONSTIPATION; Start 07/31/16 at 15:00 Hydralazine HCl (Apresoline) 10 mg Q6H PRN IV ELEVATED BLOOD PRESSURE; Start at 15:00 Nitroglycerin (Nitroglycerin (Sl Tab) 0.4 Mg) 1 tab Q5M PRN SL ANGINA; Start at 15:00 Miscellaneous Information 1 ea NOTE XX ; Start 07/31/16 at 16:30 Glucose (Glutose) 15 gm Q15M PRN PO DECREASED GLUCOSE; Start 07/31/16 at 16:30 Glucose (Glutose) 22.5 gm Q15M PRN PO DECREASED GLUCOSE; Start 07/31/16 at 16: 30 Dextrose (D50w Syringe) 25 ml Q15M PRN IV DECREASED GLUCOSE; Start 07/31/16 at 16:30 Dextrose (D50w Syringe) 50 ml Q15M PRN IV DECREASED GLUCOSE; Start 07/31/16 at 16:30 Glucagon (Glucagen) 1 mg Q15M PRN IM DECREASED GLUCOSE; Start 07/31/16 at 16:30 Glucose (Glutose) 15 gm Q15M PRN BUCCAL DECREASED GLUCOSE; Start 07/31/16 at 16 :30 Sodium Hypochlorite (Dakin'S (1/4 Strength)) 1 applic BID IRR Last administered on 08/17/16 09:25; Admin Dose 1 APPLIC; Start 08/01/16 at 21:00 Calcium Carbonate (Ca Carbonate) 1,250 mg BID GTB Last administered on 09:24; Admin Dose 1,250 MG; Start 08/01/16 at 22:30 Acetaminophen/ Hydrocodone Bitart ([place] (5/325)) 1 tab Q4H PRN PEG MODERATE PAIN LEVEL 4-6 Last administered on 08/17/16 00:26; Admin Dose 1 TAB; Start 08/02/16 at 00:00 Lorazepam (Ativan) 0.5 mg Q4H PRN IV ANXIETY Last administered on 08/17/16 06: 30; Admin Dose 0.5 MG; Start 08/02/16 at 00:00 Zolpidem Tartrate (Ambien) 10 mg HS PRN PEG INSOMNIA Last administered on 20:35; Admin Dose 10 MG; Start 08/02/16 at 03:30 Fluconazole (Diflucan) 100 mg DAILY PO Last administered on 08/17/16 09:24; Admin Dose 100 MG; Start 08/02/16 at 12:30 Ibuprofen (Motrin) 600 mg Q6H PRN PO PAIN OR TEMP ABOVE 38C Last administered on 08/11/16 21:29; Admin Dose 600 MG; Start 08/02/16 at 15:00 Zinc Sulfate (Zinc Sulfate) 220 mg DAILY GTB Last administered on 08/17/16 09: 24; Admin Dose 220 MG; Start 08/03/16 at 11:30 Multivitamins Therapeutic (Theragran) 1 tab DAILY PO Last administered on 09:24; Admin Dose 1 TAB; Start 08/03/16 at 11:30 Ascorbic Acid (Vitamin C) 500 mg BID GTB Last administered on 08/17/16 09:25; Admin Dose 500 MG; Start 08/03/16 at 11:30 Sodium Hypochlorite (Dakin'S (Dilute 1/40%)) 1 applic BID IRR Last administered on 08/17/16 09:25; Admin Dose 1 APPLIC; Start 08/04/16 at 12:00 Hydromorphone HCl 0.5 mg 0.5 mg Q8H PRN IV PAIN Last administered on 08/16/16 05:14; Admin Dose 0.5 MG; Start 08/04/16 at 12:00 Cefepime HCl (Maxipime 1gm/50 ml (Pmx)) 50 ml @ 100 mls/hr Q12 IVPB Last administered on 08/17/16 09:24; Admin Dose 100 MLS/HR; Start 08/08/16 at 16:00 Levothyroxine Sodium (Synthroid) 25 mcg DAILY@06 PO Last administered on 06:06; Admin Dose 25 MCG; Start 08/11/16 at 06:00 Docusate Sodium (Colace Liquid Cup) 100 mg Q12 GTB Last administered on 09:24; Admin Dose 100 MG; Start 08/11/16 at 10:30 Paroxetine HCl (Paxil) 10 mg DAILY PO Last administered on 08/17/16 09:24; Admin Dose 10 MG; Start 08/11/16 at 21:00 Insulin Aspart (Novolog Insulin Pen) NOVOLOG *MODERATE* ALGORI... Q6 SC Last administered on 08/14/16 13:29; Admin Dose 2 UNIT; Start 08/13/16 at 00:00 Famotidine (Pepcid) 20 mg Q12 GTB Last administered on 08/17/16 09:24; Admin Dose 20 MG; Start 08/13/16 at 09:00 Lactobacillus Acidoph/Bulgaricus (Floranex) 1 tab TID GTB Last administered on 08/17/16 09:24; Admin Dose 1 TAB; Start 08/15/16 at 21:30 Metformin HCl (Glucophage) 500 mg Q12 GTB Last administered on 08/17/16 09:24 ; Admin Dose 500 MG; Start 08/15/16 at 21:30 Linezolid (Zyvox) 600 mg BID GTB Last administered on 08/17/16 09:24; Admin Dose 600 MG; Start 08/15/16 at 21:30 Metronidazole (Flagyl) 500 mg Q8 GTB Last administered on 08/17/16 06:06; Admin Dose 500 MG; Start 08/15/16 at 22:00 Acetaminophen 650 mg 650 mg Q6H PRN GTB PAIN AND OR ELEVATED TEMP Last administered on 08/17/16 06:06; Admin Dose 650 MG; Start 08/15/16 at 21:30 Colistimethate Sodium/Sodium Chloride (Coly-Mycin/NS) 100 ml @ 200 mls/hr Q12 IVPB Last administered on 08/17/16 09:24; Admin Dose 200 MLS/HR; Start at 21:00 Kb Barrett DO Aug 17, 2016 12:20
--- NOTE | 2016-08-17 15:37 | CONS ---
Date/Time of Note Date/Time of Note DATE: 08/17/16 TIME: 15:36 Assessment/Plan Assessment/Plan Chief Complaint/Hosp Course SUBJECTIVE: Awake, lying comfortably in bed MICROBIOLOGY: Urine culture grew [place] albicans Pseudomonas aeruginosa. Wound culture growing multi-drug resistant Klebsiella pneumoniae and gram- negative rods and Enterococcus species. INDWELLINGS: Trach, PEG, Loiveira, left chest Port-A-Cath. ANTIMICROBIALS: 1. Colistin. 2. Zyvox. 3. Fluconazole. 4. Flagyl 5. Cefepime PHYSICAL EXAMINATION: GENERAL: Chronically ill-appearing, well-developed, middle-aged man who is lying comfortably in bed. HEENT: Head atraumatic, normocephalic. Sclerae anicteric. Buccal mucosa dry. CHEST: Rise symmetrical. Breath sounds diminished to bases. HEART: S1, S2. ABDOMEN: Soft, bowel tones present. EXTREMITIES: With trace edema. Left upper extremity more edematous. ASSESSMENT: 1. Sepsis with ongoing fevers. 2. Multiple decubitus with wound culture growing multi-drug resistant organisms. 3. Healthcare-associated pneumonia. 4. Multidrug resistant urinary tract infection. 5. History of Clostridium difficile colitis. 6. 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 7. Left chest Port-A-Cath. PLAN: Remains unchanged. Repeat bld cx negative, WBC scan negative, CT abdomen/ pelvis neg for OM, continue abx, aggressive pulmonary toilet, local wound care. staff Problems: Consultation Date/Type/Reason Admit Date/Time Jul 31, 2016 at 14:20 Initial Consult Date 08/02/16 Type of Consultation: ID Exam/Review of Systems Vital Signs Vitals Vital Signs Date Time Temp Pulse Resp B/P Pulse Ox O2 Delivery O2 Flow Rate FiO2 08/17/16 15:10 102 24 96 40 08/17/16 11:55 98.0 125/68 Intake and Output 08/16/16 08/16/16 08/17/16 15:00 23:00 07:00 Intake Total 1220 ml 50 ml Output Total 4000 ml Balance -2780 ml 50 ml Results Result Diagram: 08/17/16 0620 08/17/16 0620 Results 24 hrs Laboratory Tests Test 08/16/16 17:32 08/17/16 00:46 08/17/16 06:09 08/17/16 06:20 Bedside Glucose 121 136 130 Anion Gap 13 Basophils # 0.1 Basophils % 0.2 Blood Urea Nitrogen 49 #H Calcium Level 11.0 #H Carbon Dioxide Level 25 Chloride Level 98 # Creatinine 0.86 Eosinophils # 0.3 Eosinophils % 1.4 Glucose Level 117 Hematocrit 26.5 L Hemoglobin 8.3 L Lymphocytes # 0.6 L Lymphocytes % 3.1 L Magnesium Level 2.2 Mean Corpuscular Hemoglobin 26.8 L Mean Corpuscular Hemoglobin Concent 31.3 L Mean Corpuscular Volume 85.5 Mean Platelet Volume 9.8 Monocytes # 0.7 Monocytes % 3.4 Neutrophils # 18.4 H Neutrophils % 90.8 H Nucleated Red Blood Cells # 0.0 Nucleated Red Blood Cells % 0.0 Phosphorus Level 3.0 Platelet Count 345 Potassium Level 4.0 Red Blood Count 3.10 L Red Cell Distribution Width 17.2 H Sodium Level 132 L White Blood Count 20.3 #H Test 08/17/16 11:42 Bedside Glucose 137 Medications Medications Current Medications Ondansetron HCl (Zofran Inj) 4 mg Q6H PRN IV NAUSEA AND/OR VOMITING Last administered on 08/15/16 05:11; Admin Dose 4 MG; Start 07/31/16 at 15:00 Morphine Sulfate (morphine) 2 mg Q4H PRN IV SEVERE PAIN LEVEL 7-10 Last administered on 08/02/16 20:59; Admin Dose 2 MG; Start 07/31/16 at 15:00 Magnesium Hydroxide (Milk Of Mag) 30 ml DAILY PRN PO CONSTIPATION; Start at 15:00 Sodium Biphosphate/ Sodium Phosphate (Fleet Enema) 133 ml DAILY PRN [place] CONSTIPATION; Start 07/31/16 at 15:00 Hydralazine HCl (Apresoline) 10 mg Q6H PRN IV ELEVATED BLOOD PRESSURE; Start at 15:00 Nitroglycerin (Nitroglycerin (Sl Tab) 0.4 Mg) 1 tab Q5M PRN SL ANGINA; Start at 15:00 Miscellaneous Information 1 ea NOTE XX ; Start 07/31/16 at 16:30 Glucose (Glutose) 15 gm Q15M PRN PO DECREASED GLUCOSE; Start 07/31/16 at 16:30 Glucose (Glutose) 22.5 gm Q15M PRN PO DECREASED GLUCOSE; Start 07/31/16 at 16: 30 Dextrose (D50w Syringe) 25 ml Q15M PRN IV DECREASED GLUCOSE; Start 07/31/16 at 16:30 Dextrose (D50w Syringe) 50 ml Q15M PRN IV DECREASED GLUCOSE; Start 07/31/16 at 16:30 Glucagon (Glucagen) 1 mg Q15M PRN IM DECREASED GLUCOSE; Start 07/31/16 at 16:30 Glucose (Glutose) 15 gm Q15M PRN BUCCAL DECREASED GLUCOSE; Start 07/31/16 at 16 :30 Sodium Hypochlorite (Dakin'S (1/4 Strength)) 1 applic BID IRR Last administered on 08/17/16 09:25; Admin Dose 1 APPLIC; Start 08/01/16 at 21:00 Calcium Carbonate (Ca Carbonate) 1,250 mg BID GTB Last administered on 09:24; Admin Dose 1,250 MG; Start 08/01/16 at 22:30 Acetaminophen/ Hydrocodone Bitart ([place] (5/325)) 1 tab Q4H PRN PEG MODERATE PAIN LEVEL 4-6 Last administered on 08/17/16 00:26; Admin Dose 1 TAB; Start 08/02/16 at 00:00 Lorazepam (Ativan) 0.5 mg Q4H PRN IV ANXIETY Last administered on 08/17/16 06: 30; Admin Dose 0.5 MG; Start 08/02/16 at 00:00 Zolpidem Tartrate (Ambien) 10 mg HS PRN PEG INSOMNIA Last administered on 20:35; Admin Dose 10 MG; Start 08/02/16 at 03:30 Fluconazole (Diflucan) 100 mg DAILY PO Last administered on 08/17/16 09:24; Admin Dose 100 MG; Start 08/02/16 at 12:30 Ibuprofen (Motrin) 600 mg Q6H PRN PO PAIN OR TEMP ABOVE 38C Last administered on 08/11/16 21:29; Admin Dose 600 MG; Start 08/02/16 at 15:00 Zinc Sulfate (Zinc Sulfate) 220 mg DAILY GTB Last administered on 08/17/16 09: 24; Admin Dose 220 MG; Start 08/03/16 at 11:30 Multivitamins Therapeutic (Theragran) 1 tab DAILY PO Last administered on 09:24; Admin Dose 1 TAB; Start 08/03/16 at 11:30 Ascorbic Acid (Vitamin C) 500 mg BID GTB Last administered on 08/17/16 09:25; Admin Dose 500 MG; Start 08/03/16 at 11:30 Sodium Hypochlorite (Dakin'S (Dilute 1/40%)) 1 applic BID IRR Last administered on 08/17/16 09:25; Admin Dose 1 APPLIC; Start 08/04/16 at 12:00 Hydromorphone HCl 0.5 mg 0.5 mg Q8H PRN IV PAIN Last administered on 08/16/16 05:14; Admin Dose 0.5 MG; Start 08/04/16 at 12:00 Cefepime HCl (Maxipime 1gm/50 ml (Pmx)) 50 ml @ 100 mls/hr Q12 IVPB Last administered on 08/17/16 09:24; Admin Dose 100 MLS/HR; Start 08/08/16 at 16:00 Levothyroxine Sodium (Synthroid) 25 mcg DAILY@06 PO Last administered on 06:06; Admin Dose 25 MCG; Start 08/11/16 at 06:00 Docusate Sodium (Colace Liquid Cup) 100 mg Q12 GTB Last administered on 09:24; Admin Dose 100 MG; Start 08/11/16 at 10:30 Paroxetine HCl (Paxil) 10 mg DAILY PO Last administered on 08/17/16 09:24; Admin Dose 10 MG; Start 08/11/16 at 21:00 Insulin Aspart (Novolog Insulin Pen) NOVOLOG *MODERATE* ALGORI... Q6 SC Last administered on 08/14/16 13:29; Admin Dose 2 UNIT; Start 08/13/16 at 00:00 Famotidine (Pepcid) 20 mg Q12 GTB Last administered on 08/17/16 09:24; Admin Dose 20 MG; Start 08/13/16 at 09:00 Lactobacillus Acidoph/Bulgaricus (Floranex) 1 tab TID GTB Last administered on 08/17/16 13:58; Admin Dose 1 TAB; Start 08/15/16 at 21:30 Metformin HCl (Glucophage) 500 mg Q12 GTB Last administered on 08/17/16 09:24 ; Admin Dose 500 MG; Start 08/15/16 at 21:30 Linezolid (Zyvox) 600 mg BID GTB Last administered on 08/17/16 09:24; Admin Dose 600 MG; Start 08/15/16 at 21:30 Metronidazole (Flagyl) 500 mg Q8 GTB Last administered on 08/17/16 13:58; Admin Dose 500 MG; Start 08/15/16 at 22:00 Acetaminophen 650 mg 650 mg Q6H PRN GTB PAIN AND OR ELEVATED TEMP Last administered on 08/17/16 06:06; Admin Dose 650 MG; Start 08/15/16 at 21:30 Colistimethate Sodium/Sodium Chloride (Coly-Mycin/NS) 100 ml @ 200 mls/hr Q12 IVPB Last administered on 08/17/16 09:24; Admin Dose 200 MLS/HR; Start at 21:00 LESLIE FERRARO NP Aug 17, 2016 15:36
--- NOTE | 2016-08-17 15:48 | PN ---
Date/Time of Note Date/Time of Note DATE: 08/17/16 TIME: 15:47 Assessment/Plan VTE Prophylaxis VTE Prophylaxis Intervention: SCD's Lines/Catheters IV [facility] [place] Assessment/Plan Chief Complaint/Hosp Course 1. Sepsis - sec to resp infection+ UTI + decubitus ulcer infx Continue antibiotics WBC scan is negative, CT abdomen and pelvis shows no evidence of osteomyelitis, repeat blood cultures are negative Follow up with ID recommendations 2. Chronic respiratory failure,Vent dependent via trach 3. Recurrent Multifocal bronchitis/bronchiolitis/bronchopneumonia Chest x-ray shows improvement 4. Chronic Dysphagia currently on G-tube feeds. 07/05 #5 5. C2 fracture 07/05 fall in April 2016 + chronic neuropathy with cervical collar Per patient he was meant to have collar only for 4months, neurosurgery consultation appreciated collar now removed 6. Multiple infected decubiti down to the bone Continue antibiotics Per surgery, Patient needs diverting colostomy but was having cardiac issues and is still mildly septic, awaiting stabilization 7. Anemia of chronic disease 8. DM 2 with suboptimal control: stable on metformin 9. Cardiomyopathy with ejection fraction 45-50% via echo on previous admission 10. Pseudomonas / Addis UTI 11. New Hypothyroidism 12. Probable Depression : patient was refusing turning and wound care / started on Paxil 13. FEN Replace electrolytes as needed Dispo: Patient would like to go to back to the congreg[facility] living that he came from Prophylaxis: H2 pam / SCDs Problems: Subjective 24 Hr Interval Summary Constitutional: no complaints Exam/Review of Systems Vital Signs Vitals Vital Signs Date Time Temp Pulse Resp B/P Pulse Ox O2 Delivery O2 Flow Rate FiO2 08/17/16 15:10 102 24 96 40 08/17/16 11:55 98.0 125/68 Intake and Output 08/16/16 08/16/16 08/17/16 15:00 23:00 07:00 Intake Total 1220 ml 50 ml Output Total 4000 ml Balance -2780 ml 50 ml Exam Constitutional: alert Respiratory: clear to auscultation Cardiovascular: regular rate and rhythm Gastrointestinal: soft, No distended Musculoskeletal: nl extremities to inspection Results Result Diagram: 08/17/16 0620 08/17/16 0620 Results 24 hrs Laboratory Tests Test 08/16/16 17:32 08/17/16 00:46 08/17/16 06:09 08/17/16 06:20 Bedside Glucose 121 136 130 Anion Gap 13 Basophils # 0.1 Basophils % 0.2 Blood Urea Nitrogen 49 #H Calcium Level 11.0 #H Carbon Dioxide Level 25 Chloride Level 98 # Creatinine 0.86 Eosinophils # 0.3 Eosinophils % 1.4 Glucose Level 117 Hematocrit 26.5 L Hemoglobin 8.3 L Lymphocytes # 0.6 L Lymphocytes % 3.1 L Magnesium Level 2.2 Mean Corpuscular Hemoglobin 26.8 L Mean Corpuscular Hemoglobin Concent 31.3 L Mean Corpuscular Volume 85.5 Mean Platelet Volume 9.8 Monocytes # 0.7 Monocytes % 3.4 Neutrophils # 18.4 H Neutrophils % 90.8 H Nucleated Red Blood Cells # 0.0 Nucleated Red Blood Cells % 0.0 Phosphorus Level 3.0 Platelet Count 345 Potassium Level 4.0 Red Blood Count 3.10 L Red Cell Distribution Width 17.2 H Sodium Level 132 L White Blood Count 20.3 #H Test 08/17/16 11:42 Bedside Glucose 137 Medications Medications Current Medications Ondansetron HCl (Zofran Inj) 4 mg Q6H PRN IV NAUSEA AND/OR VOMITING Last administered on 08/15/16 05:11; Admin Dose 4 MG; Start 07/31/16 at 15:00 Morphine Sulfate (morphine) 2 mg Q4H PRN IV SEVERE PAIN LEVEL 7-10 Last administered on 08/02/16 20:59; Admin Dose 2 MG; Start 07/31/16 at 15:00 Magnesium Hydroxide (Milk Of Mag) 30 ml DAILY PRN PO CONSTIPATION; Start at 15:00 Sodium Biphosphate/ Sodium Phosphate (Fleet Enema) 133 ml DAILY PRN [place] CONSTIPATION; Start 07/31/16 at 15:00 Hydralazine HCl (Apresoline) 10 mg Q6H PRN IV ELEVATED BLOOD PRESSURE; Start at 15:00 Nitroglycerin (Nitroglycerin (Sl Tab) 0.4 Mg) 1 tab Q5M PRN SL ANGINA; Start at 15:00 Miscellaneous Information 1 ea NOTE XX ; Start 07/31/16 at 16:30 Glucose (Glutose) 15 gm Q15M PRN PO DECREASED GLUCOSE; Start 07/31/16 at 16:30 Glucose (Glutose) 22.5 gm Q15M PRN PO DECREASED GLUCOSE; Start 07/31/16 at 16: 30 Dextrose (D50w Syringe) 25 ml Q15M PRN IV DECREASED GLUCOSE; Start 07/31/16 at 16:30 Dextrose (D50w Syringe) 50 ml Q15M PRN IV DECREASED GLUCOSE; Start 07/31/16 at 16:30 Glucagon (Glucagen) 1 mg Q15M PRN IM DECREASED GLUCOSE; Start 07/31/16 at 16:30 Glucose (Glutose) 15 gm Q15M PRN BUCCAL DECREASED GLUCOSE; Start 07/31/16 at 16 :30 Sodium Hypochlorite (Dakin'S (1/4 Strength)) 1 applic BID IRR Last administered on 08/17/16 09:25; Admin Dose 1 APPLIC; Start 08/01/16 at 21:00 Calcium Carbonate (Ca Carbonate) 1,250 mg BID GTB Last administered on 09:24; Admin Dose 1,250 MG; Start 08/01/16 at 22:30 Acetaminophen/ Hydrocodone Bitart ([place] (5/325)) 1 tab Q4H PRN PEG MODERATE PAIN LEVEL 4-6 Last administered on 08/17/16 00:26; Admin Dose 1 TAB; Start 08/02/16 at 00:00 Lorazepam (Ativan) 0.5 mg Q4H PRN IV ANXIETY Last administered on 08/17/16 06: 30; Admin Dose 0.5 MG; Start 08/02/16 at 00:00 Zolpidem Tartrate (Ambien) 10 mg HS PRN PEG INSOMNIA Last administered on 20:35; Admin Dose 10 MG; Start 08/02/16 at 03:30 Fluconazole (Diflucan) 100 mg DAILY PO Last administered on 08/17/16 09:24; Admin Dose 100 MG; Start 08/02/16 at 12:30 Ibuprofen (Motrin) 600 mg Q6H PRN PO PAIN OR TEMP ABOVE 38C Last administered on 08/11/16 21:29; Admin Dose 600 MG; Start 08/02/16 at 15:00 Zinc Sulfate (Zinc Sulfate) 220 mg DAILY GTB Last administered on 08/17/16 09: 24; Admin Dose 220 MG; Start 08/03/16 at 11:30 Multivitamins Therapeutic (Theragran) 1 tab DAILY PO Last administered on 09:24; Admin Dose 1 TAB; Start 08/03/16 at 11:30 Ascorbic Acid (Vitamin C) 500 mg BID GTB Last administered on 08/17/16 09:25; Admin Dose 500 MG; Start 08/03/16 at 11:30 Sodium Hypochlorite (Dakin'S (Dilute 1/40%)) 1 applic BID IRR Last administered on 08/17/16 09:25; Admin Dose 1 APPLIC; Start 08/04/16 at 12:00 Hydromorphone HCl 0.5 mg 0.5 mg Q8H PRN IV PAIN Last administered on 08/16/16 05:14; Admin Dose 0.5 MG; Start 08/04/16 at 12:00 Cefepime HCl (Maxipime 1gm/50 ml (Pmx)) 50 ml @ 100 mls/hr Q12 IVPB Last administered on 08/17/16 09:24; Admin Dose 100 MLS/HR; Start 08/08/16 at 16:00 Levothyroxine Sodium (Synthroid) 25 mcg DAILY@06 PO Last administered on 06:06; Admin Dose 25 MCG; Start 08/11/16 at 06:00 Docusate Sodium (Colace Liquid Cup) 100 mg Q12 GTB Last administered on 09:24; Admin Dose 100 MG; Start 08/11/16 at 10:30 Paroxetine HCl (Paxil) 10 mg DAILY PO Last administered on 08/17/16 09:24; Admin Dose 10 MG; Start 08/11/16 at 21:00 Insulin Aspart (Novolog Insulin Pen) NOVOLOG *MODERATE* ALGORI... Q6 SC Last administered on 08/14/16 13:29; Admin Dose 2 UNIT; Start 08/13/16 at 00:00 Famotidine (Pepcid) 20 mg Q12 GTB Last administered on 08/17/16 09:24; Admin Dose 20 MG; Start 08/13/16 at 09:00 Lactobacillus Acidoph/Bulgaricus (Floranex) 1 tab TID GTB Last administered on 08/17/16 13:58; Admin Dose 1 TAB; Start 08/15/16 at 21:30 Metformin HCl (Glucophage) 500 mg Q12 GTB Last administered on 08/17/16 09:24 ; Admin Dose 500 MG; Start 08/15/16 at 21:30 Linezolid (Zyvox) 600 mg BID GTB Last administered on 08/17/16 09:24; Admin Dose 600 MG; Start 08/15/16 at 21:30 Metronidazole (Flagyl) 500 mg Q8 GTB Last administered on 08/17/16 13:58; Admin Dose 500 MG; Start 08/15/16 at 22:00 Acetaminophen 650 mg 650 mg Q6H PRN GTB PAIN AND OR ELEVATED TEMP Last administered on 08/17/16 06:06; Admin Dose 650 MG; Start 08/15/16 at 21:30 Colistimethate Sodium/Sodium Chloride (Coly-Mycin/NS) 100 ml @ 200 mls/hr Q12 IVPB Last administered on 08/17/16 09:24; Admin Dose 200 MLS/HR; Start at 21:00 JAMISON STANTON Aug 17, 2016 15:48
[2016-08-17] MEDS: ALBUTEROL/IPRATROPIUM (NEB) 3 ML AMP HHN PRN (19:46)
[2016-08-18] VITALS (23 sets, daily range): BP systolic 102–123; BP diastolic 59–82; PULSE 101–112; RESP 18–27
[2016-08-18] MEDS: ZOLPIDEM 5 MG TAB PEG PRN ×2 (00:10→21:35)
[2016-08-18] MEDS: HYDROmorphONE 1 MG/ML SYG IV PRN (04:56)
[2016-08-18] MEDS: LEVOTHYROXINE 25 MCG TAB PO SCH (05:18)
[2016-08-18] MEDS: ACETAMINOPHEN 325 MG TAB GTB PRN ×3 (05:18→22:50)
[2016-08-18] MEDS: metroNIDAZOLE 500 MG TAB GTB SCH ×3 (05:18→21:35)
[2016-08-18] MEDS: INSULIN ASPART [NOVOLOG] 3 ML PEN SC SCH ×4 (05:26→16:51)
[2016-08-18 06:27] LABS: ADD SCAN DIFF NO
[2016-08-18 06:42] LABS: BASOPHIL # 0.1 10^3/ul (0.0-0.1); BASOPHILS % 0.3 % (0.0-2.0); EOSINOPHILS # 0.5 10^3/ul (0.0-0.5); EOSINOPHILS % 2.7 % (0.0-7.0); HEMATOCRIT 26.9 % (42.0-52.0); HEMOGLOBIN 8.3 g/dl (14.0-18.0); LYMPHOCYTES # 0.7 10^3/ul (0.8-2.9); LYMPHOCYTES % 3.6 % (15.0-51.0); MEAN CORPUSCULAR HEMOGLOBIN 26.2 pg (29.0-33.0); MEAN CORPUSCULAR HGB CONC 30.9 g/dl (32.0-37.0); MEAN CORPUSCULAR VOLUME 84.9 fl (82.0-101.0); MEAN PLATELET VOLUME 10.2 fl (7.4-10.4); MONOCYTES % 5.1 % (0.0-11.0); NEUTROPHIL # 16.7 10^3/ul (1.6-7.5); NEUTROPHILS % 87.1 % (39.0-77.0); PLATELET COUNT 365 10^3/UL (140-415); RED BLOOD COUNT 3.17 10^6/ul (4.70-6.10); RED CELL DISTRIBUTION WIDTH 17.5 % (11.5-14.5); WHITE BLOOD COUNT 19.1 10^3/ul (4.8-10.8)
[2016-08-18 06:58] LABS: POTASSIUM 3.5 mmol/L (3.5-5.1)
[2016-08-18 07:00] LABS: CREATININE 0.82 mg/dl (0.61-1.24)
[2016-08-18 07:01] LABS: CALCIUM 11.1 mg/dl (8.4-10.2); MAGNESIUM 1.7 mg/dl (1.7-2.5); PHOSPHORUS 2.9 mg/dl (2.5-4.9)
[2016-08-18] MEDS: LACTOBACILLUS CHEW TAB GTB SCH ×3 (08:36→21:34)
[2016-08-18] MEDS: ZYVOX 600 MG TAB GTB SCH ×2 (08:36→21:34)
[2016-08-18] MEDS: FLUCONAZOLE 100 MG TAB PO SCH (08:36)
[2016-08-18] MEDS: PAROXETINE 10 MG TAB PO SCH (08:36)
[2016-08-18] MEDS: ZINC SULFATE 220 MG CAP GTB SCH (08:36)
[2016-08-18] MEDS: metFORMIN 500 MG TAB GTB SCH ×2 (08:36→21:42)
[2016-08-18] MEDS: FAMOTIDINE 20 MG TAB GTB SCH ×2 (08:36→21:35)
[2016-08-18] MEDS: MULTIVITAMINS THERAPEUTIC TAB PO SCH (08:36)
[2016-08-18] MEDS: ASCORBIC ACID 500 MG TAB GTB SCH ×2 (08:37→21:35)
[2016-08-18] MEDS: CA CARBONATE (250 MG/ML) 5ML CUP GTB SCH ×2 (08:37→21:34)
[2016-08-18] MEDS: DOCUSATE SODIUM 10 MG/ML (10ML CUP) GTB SCH ×2 (08:37→21:35)
[2016-08-18] MEDS: CEFEPIME 1GM/50 ML (PMX) 50 ML IVPB SCH ×2 (09:05→21:33)
[2016-08-18] MEDS: COLISTIMETHATE 150 MG in SOD CHLORIDE 0.9% 100 ML IVPB SCH ×2 (09:06→21:33)
[2016-08-18] MEDS: SODIUM HYPOCHLORITE 1/40% 1L IRRIG IRR SCH ×2 (09:06→21:33)
[2016-08-18] MEDS: SODIUM HYPOCHLORITE 0.125% 473 ML BTL IRR SCH ×2 (09:06→21:33)
[2016-08-18] MEDS: LORAZEPAM 2 MG INJ IV PRN ×3 (09:17→21:35)
--- NOTE | 2016-08-18 13:53 | PN ---
DATE: 08/18/2016 PULMONARY FOLLOWUP SUBJECTIVE: Patient May was stable overnight, no new events. PHYSICAL EXAMINATION: VITAL SIGNS: Temperature 99, pulse 100, blood pressure 123/62, O2 saturation 96%, FIO2 of 40%. NECK: Trach site clean, intact. CARDIAC: S1, S2, no added sounds or murmurs. CHEST: Diminished air entry bilaterally. ABDOMEN: Soft, nontender. No guarding or rebound. EXTREMITIES: No cyanosis, clubbing, or edema. NEUROLOGIC: Generalized weakness. LABORATORY DATA: White count up to 19.1, hemoglobin 8.3, platelets of 365. BUN 43, creatinine 0.82 . IMPRESSION AND PLAN: 1. Ventilator-dependent respiratory failure. 2. Carbapenemase-resistant Klebsiella pneumoniae, vancomycin-resistant enterococcus wound with Acin etobacter bacteria and Proteus mirabilis. The patient should continue on current antibiotics per in fectious diseases. Currently on Flagyl, colistin, cefepime. 3. Continue mechanical ventilation. 4. Continue tube feeding as tolerated. 5. Wound care. Overall, prognosis, however, is guarded. Discussion with family should be held regarding code statu s and goals of care as palliative care may be more appropriate. Dictated By: ABI SWANSON/SCOTTIE Conf#: [id number] DID#: [id number]
--- NOTE | 2016-08-18 16:56 | CONS ---
Date/Time of Note Date/Time of Note DATE: 08/18/16 TIME: 16:55 Assessment/Plan Assessment/Plan Chief Complaint/Hosp Course SUBJECTIVE: No acute events, low grade temps, nad, lying comfortably in bed MICROBIOLOGY: Urine culture grew [place]is albicans Pseudomonas aeruginosa. Wound culture growing multi-drug resistant Klebsiella pneumoniae and gram- negative rods and Enterococcus species. INDWELLINGS: Trach, PEG, Oliveira, left chest Port-A-Cath. ANTIMICROBIALS: 1. Colistin. 2. Zyvox. 3. Fluconazole. 4. Flagyl 5. Cefepime PHYSICAL EXAMINATION: GENERAL: Chronically ill-appearing, well-developed, middle-aged man who is lying comfortably in bed. HEENT: Head atraumatic, normocephalic. Sclerae anicteric. Buccal mucosa dry. CHEST: Rise symmetrical. Breath sounds diminished to bases. HEART: S1, S2. ABDOMEN: Soft, bowel tones present. EXTREMITIES: With trace edema. Left upper extremity more edematous. ASSESSMENT: 1. Sepsis with ongoing fevers. 2. Multiple decubitus with wound culture growing multi-drug resistant organisms. 3. Healthcare-associated pneumonia. 4. Multidrug resistant urinary tract infection. 5. History of Clostridium difficile colitis. 6. 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 7. Left chest Port-A-Cath. PLAN: Clinically unchanged. Repeat bld cx negative, WBC scan negative, CT abdomen/pelvis neg for OM, continue abx, aggressive pulmonary toilet, local wound care, monitor renal f-n. DW staff Problems: Consultation Date/Type/Reason Admit Date/Time Jul 31, 2016 at 14:20 Initial Consult Date 08/02/16 Type of Consultation: ID Exam/Review of Systems Vital Signs Vitals Vital Signs Date Time Temp Pulse Resp B/P Pulse Ox O2 Delivery O2 Flow Rate FiO2 08/18/16 16:21 102 08/18/16 16:02 98.1 18 102/59 95 08/18/16 13:51 26 Intake and Output 08/17/16 08/17/16 08/18/16 15:00 23:00 07:00 Intake Total 1220 ml 1220 ml 1320 ml Output Total 700 ml 2000 ml 2600 ml Balance 520 ml -780 ml -1280 ml Results Result Diagram: 08/18/16 0543 08/18/16 0543 Results 24 hrs Laboratory Tests Test 08/17/16 17:34 08/17/16 22:06 08/18/16 05:25 08/18/16 05:43 Bedside Glucose 108 134 117 Anion Gap 14 Basophils # 0.1 Basophils % 0.3 Blood Urea Nitrogen 43 H Calcium Level 11.1 H Carbon Dioxide Level 27 Chloride Level 100 Creatinine 0.82 Eosinophils # 0.5 Eosinophils % 2.7 Glucose Level 95 Hematocrit 26.9 L Hemoglobin 8.3 L Lymphocytes # 0.7 L Lymphocytes % 3.6 L Magnesium Level 1.7 Mean Corpuscular Hemoglobin 26.2 L Mean Corpuscular Hemoglobin Concent 30.9 L Mean Corpuscular Volume 84.9 Mean Platelet Volume 10.2 Monocytes # 1.0 H Monocytes % 5.1 Neutrophils # 16.7 H Neutrophils % 87.1 H Nucleated Red Blood Cells # 0.0 Nucleated Red Blood Cells % 0.0 Phosphorus Level 2.9 Platelet Count 365 Potassium Level 3.5 Red Blood Count 3.17 L Red Cell Distribution Width 17.5 H Sodium Level 137 White Blood Count 19.1 H Test 08/18/16 12:13 08/18/16 16:50 Bedside Glucose 148 131 Medications Medications Current Medications Ondansetron HCl (Zofran Inj) 4 mg Q6H PRN IV NAUSEA AND/OR VOMITING Last administered on 08/15/16 05:11; Admin Dose 4 MG; Start 07/31/16 at 15:00 Morphine Sulfate (morphine) 2 mg Q4H PRN IV SEVERE PAIN LEVEL 7-10 Last administered on 08/02/16 20:59; Admin Dose 2 MG; Start 07/31/16 at 15:00 Magnesium Hydroxide (Milk Of Mag) 30 ml DAILY PRN PO CONSTIPATION; Start at 15:00 Sodium Biphosphate/ Sodium Phosphate (Fleet Enema) 133 ml DAILY PRN [place] CONSTIPATION; Start 07/31/16 at 15:00 Hydralazine HCl (Apresoline) 10 mg Q6H PRN IV ELEVATED BLOOD PRESSURE; Start at 15:00 Nitroglycerin (Nitroglycerin (Sl Tab) 0.4 Mg) 1 tab Q5M PRN SL ANGINA; Start at 15:00 Miscellaneous Information 1 ea NOTE XX ; Start 07/31/16 at 16:30 Glucose (Glutose) 15 gm Q15M PRN PO DECREASED GLUCOSE; Start 07/31/16 at 16:30 Glucose (Glutose) 22.5 gm Q15M PRN PO DECREASED GLUCOSE; Start 07/31/16 at 16: 30 Dextrose (D50w Syringe) 25 ml Q15M PRN IV DECREASED GLUCOSE; Start 07/31/16 at 16:30 Dextrose (D50w Syringe) 50 ml Q15M PRN IV DECREASED GLUCOSE; Start 07/31/16 at 16:30 Glucagon (Glucagen) 1 mg Q15M PRN IM DECREASED GLUCOSE; Start 07/31/16 at 16:30 Glucose (Glutose) 15 gm Q15M PRN BUCCAL DECREASED GLUCOSE; Start 07/31/16 at 16 :30 Sodium Hypochlorite (Dakin'S (1/4 Strength)) 1 applic BID IRR Last administered on 08/18/16 09:06; Admin Dose 1 APPLIC; Start 08/01/16 at 21:00 Calcium Carbonate (Ca Carbonate) 1,250 mg BID GTB Last administered on 08:37; Admin Dose 1,250 MG; Start 08/01/16 at 22:30 Acetaminophen/ Hydrocodone Bitart ([place] (5/325)) 1 tab Q4H PRN PEG MODERATE PAIN LEVEL 4-6 Last administered on 08/17/16 00:26; Admin Dose 1 TAB; Start 08/02/16 at 00:00 Lorazepam (Ativan) 0.5 mg Q4H PRN IV ANXIETY Last administered on 08/18/16 09: 17; Admin Dose 0.5 MG; Start 08/02/16 at 00:00 Zolpidem Tartrate (Ambien) 10 mg HS PRN PEG INSOMNIA Last administered on 00:10; Admin Dose 10 MG; Start 08/02/16 at 03:30 Fluconazole (Diflucan) 100 mg DAILY PO Last administered on 08/18/16 08:36; Admin Dose 100 MG; Start 08/02/16 at 12:30 Ibuprofen (Motrin) 600 mg Q6H PRN PO PAIN OR TEMP ABOVE 38C Last administered on 08/11/16 21:29; Admin Dose 600 MG; Start 08/02/16 at 15:00 Zinc Sulfate (Zinc Sulfate) 220 mg DAILY GTB Last administered on 08/18/16 08: 36; Admin Dose 220 MG; Start 08/03/16 at 11:30 Multivitamins Therapeutic (Theragran) 1 tab DAILY PO Last administered on 08:36; Admin Dose 1 TAB; Start 08/03/16 at 11:30 Ascorbic Acid (Vitamin C) 500 mg BID GTB Last administered on 08/18/16 08:37; Admin Dose 500 MG; Start 08/03/16 at 11:30 Sodium Hypochlorite (Dakin'S (Dilute 1/40%)) 1 applic BID IRR Last administered on 08/18/16 09:06; Admin Dose 1 APPLIC; Start 08/04/16 at 12:00 Hydromorphone HCl 0.5 mg 0.5 mg Q8H PRN IV PAIN Last administered on 08/18/16 04:56; Admin Dose 0.5 MG; Start 08/04/16 at 12:00 Cefepime HCl (Maxipime 1gm/50 ml (Pmx)) 50 ml @ 100 mls/hr Q12 IVPB Last administered on 08/18/16 09:05; Admin Dose 100 MLS/HR; Start 08/08/16 at 16:00 Levothyroxine Sodium (Synthroid) 25 mcg DAILY@06 PO Last administered on 05:18; Admin Dose 25 MCG; Start 08/11/16 at 06:00 Docusate Sodium (Colace Liquid Cup) 100 mg Q12 GTB Last administered on 08:37; Admin Dose 100 MG; Start 08/11/16 at 10:30 Paroxetine HCl (Paxil) 10 mg DAILY PO Last administered on 08/18/16 08:36; Admin Dose 10 MG; Start 08/11/16 at 21:00 Insulin Aspart (Novolog Insulin Pen) NOVOLOG *MODERATE* ALGORI... Q6 SC Last administered on 08/18/16 12:33; Admin Dose 2 UNIT; Start 08/13/16 at 00:00 Famotidine (Pepcid) 20 mg Q12 GTB Last administered on 08/18/16 08:36; Admin Dose 20 MG; Start 08/13/16 at 09:00 Lactobacillus Acidoph/Bulgaricus (Floranex) 1 tab TID GTB Last administered on 08/18/16 12:30; Admin Dose 1 TAB; Start 08/15/16 at 21:30 Metformin HCl (Glucophage) 500 mg Q12 GTB Last administered on 08/18/16 08:36 ; Admin Dose 500 MG; Start 08/15/16 at 21:30 Linezolid (Zyvox) 600 mg BID GTB Last administered on 08/18/16 08:36; Admin Dose 600 MG; Start 08/15/16 at 21:30 Metronidazole (Flagyl) 500 mg Q8 GTB Last administered on 08/18/16 12:28; Admin Dose 500 MG; Start 08/15/16 at 22:00 Acetaminophen 650 mg 650 mg Q6H PRN GTB PAIN AND OR ELEVATED TEMP Last administered on 08/18/16 05:18; Admin Dose 650 MG; Start 08/15/16 at 21:30 Colistimethate Sodium/Sodium Chloride (Coly-Mycin/NS) 100 ml @ 200 mls/hr Q12 IVPB Last administered on 08/18/16 09:06; Admin Dose 200 MLS/HR; Start at 21:00 LESLIE FERRARO NP Aug 18, 2016 16:56
--- NOTE | 2016-08-18 18:14 | PN ---
Date/Time of Note Date/Time of Note DATE: 08/18/16 TIME: 18:14 Assessment/Plan VTE Prophylaxis VTE Prophylaxis Intervention: SCD's Lines/Catheters IV Catheter Type (from [facility]): Saline Lock Assessment/Plan Chief Complaint/Hosp Course 1. Sepsis - sec to resp infection+ UTI + decubitus ulcer infx Continue antibiotics WBC scan is negative, CT abdomen and pelvis shows no evidence of osteomyelitis, repeat blood cultures are negative Follow up with ID recommendations 2. Chronic respiratory failure,Vent dependent via trach 3. Recurrent Multifocal bronchitis/bronchiolitis/bronchopneumonia Chest x-ray shows improvement 4. Chronic Dysphagia currently on G-tube feeds. 07/05 #5 5. C2 fracture 07/05 fall in April 2016 + chronic neuropathy with cervical collar Per patient he was meant to have collar only for 4months, neurosurgery consultation appreciated collar now removed 6. Multiple infected decubiti down to the bone Continue antibiotics Per surgery, Patient needs diverting colostomy but was having cardiac issues and is still mildly septic, awaiting stabilization 7. Anemia of chronic disease 8. DM 2 with suboptimal control: stable on metformin 9. Cardiomyopathy with ejection fraction 45-50% via echo on previous admission 10. Pseudomonas / Addis UTI 11. New Hypothyroidism 12. Probable Depression : patient was refusing turning and wound care / started on Paxil 13. FEN Replace electrolytes as needed Dispo: Patient would like to go to back to the congregate living that he came from Prophylaxis: H2 pam / SCDs Problems: Subjective 24 Hr Interval Summary Constitutional: no complaints Exam/Review of Systems Vital Signs Vitals Vital Signs Date Time Temp Pulse Resp B/P Pulse Ox O2 Delivery O2 Flow Rate FiO2 08/18/16 17:06 112 27 97 40 08/18/16 16:02 98.1 102/59 Intake and Output 08/17/16 08/17/16 08/18/16 15:00 23:00 07:00 Intake Total 1220 ml 1220 ml 1320 ml Output Total 700 ml 2000 ml 2600 ml Balance 520 ml -780 ml -1280 ml Exam Constitutional: alert Respiratory: clear to auscultation Cardiovascular: regular rate and rhythm Gastrointestinal: soft, No distended Musculoskeletal: nl extremities to inspection Results Result Diagram: 08/18/16 0543 08/18/16 0543 Results 24 hrs Laboratory Tests Test 08/17/16 22:06 08/18/16 05:25 08/18/16 05:43 08/18/16 12:13 Bedside Glucose 134 117 148 Anion Gap 14 Basophils # 0.1 Basophils % 0.3 Blood Urea Nitrogen 43 H Calcium Level 11.1 H Carbon Dioxide Level 27 Chloride Level 100 Creatinine 0.82 Eosinophils # 0.5 Eosinophils % 2.7 Glucose Level 95 Hematocrit 26.9 L Hemoglobin 8.3 L Lymphocytes # 0.7 L Lymphocytes % 3.6 L Magnesium Level 1.7 Mean Corpuscular Hemoglobin 26.2 L Mean Corpuscular Hemoglobin Concent 30.9 L Mean Corpuscular Volume 84.9 Mean Platelet Volume 10.2 Monocytes # 1.0 H Monocytes % 5.1 Neutrophils # 16.7 H Neutrophils % 87.1 H Nucleated Red Blood Cells # 0.0 Nucleated Red Blood Cells % 0.0 Phosphorus Level 2.9 Platelet Count 365 Potassium Level 3.5 Red Blood Count 3.17 L Red Cell Distribution Width 17.5 H Sodium Level 137 White Blood Count 19.1 H Test 08/18/16 16:50 Bedside Glucose 131 Medications Medications Current Medications Ondansetron HCl (Zofran Inj) 4 mg Q6H PRN IV NAUSEA AND/OR VOMITING Last administered on 08/15/16 05:11; Admin Dose 4 MG; Start 07/31/16 at 15:00 Morphine Sulfate (morphine) 2 mg Q4H PRN IV SEVERE PAIN LEVEL 7-10 Last administered on 08/02/16 20:59; Admin Dose 2 MG; Start 07/31/16 at 15:00 Magnesium Hydroxide (Milk Of Mag) 30 ml DAILY PRN PO CONSTIPATION; Start at 15:00 Sodium Biphosphate/ Sodium Phosphate (Fleet Enema) 133 ml DAILY PRN [place] CONSTIPATION; Start 07/31/16 at 15:00 Hydralazine HCl (Apresoline) 10 mg Q6H PRN IV ELEVATED BLOOD PRESSURE; Start at 15:00 Nitroglycerin (Nitroglycerin (Sl Tab) 0.4 Mg) 1 tab Q5M PRN SL ANGINA; Start at 15:00 Miscellaneous Information 1 ea NOTE XX ; Start 07/31/16 at 16:30 Glucose (Glutose) 15 gm Q15M PRN PO DECREASED GLUCOSE; Start 07/31/16 at 16:30 Glucose (Glutose) 22.5 gm Q15M PRN PO DECREASED GLUCOSE; Start 07/31/16 at 16: 30 Dextrose (D50w Syringe) 25 ml Q15M PRN IV DECREASED GLUCOSE; Start 07/31/16 at 16:30 Dextrose (D50w Syringe) 50 ml Q15M PRN IV DECREASED GLUCOSE; Start 07/31/16 at 16:30 Glucagon (Glucagen) 1 mg Q15M PRN IM DECREASED GLUCOSE; Start 07/31/16 at 16:30 Glucose (Glutose) 15 gm Q15M PRN BUCCAL DECREASED GLUCOSE; Start 07/31/16 at 16 :30 Sodium Hypochlorite (Dakin'S (1/4 Strength)) 1 applic BID IRR Last administered on 08/18/16 09:06; Admin Dose 1 APPLIC; Start 08/01/16 at 21:00 Calcium Carbonate (Ca Carbonate) 1,250 mg BID GTB Last administered on 08:37; Admin Dose 1,250 MG; Start 08/01/16 at 22:30 Acetaminophen/ Hydrocodone Bitart ([place] (5/325)) 1 tab Q4H PRN PEG MODERATE PAIN LEVEL 4-6 Last administered on 08/17/16 00:26; Admin Dose 1 TAB; Start 08/02/16 at 00:00 Lorazepam (Ativan) 0.5 mg Q4H PRN IV ANXIETY Last administered on 08/18/16 16: 55; Admin Dose 0.5 MG; Start 08/02/16 at 00:00 Zolpidem Tartrate (Ambien) 10 mg HS PRN PEG INSOMNIA Last administered on 00:10; Admin Dose 10 MG; Start 08/02/16 at 03:30 Fluconazole (Diflucan) 100 mg DAILY PO Last administered on 08/18/16 08:36; Admin Dose 100 MG; Start 08/02/16 at 12:30 Ibuprofen (Motrin) 600 mg Q6H PRN PO PAIN OR TEMP ABOVE 38C Last administered on 08/11/16 21:29; Admin Dose 600 MG; Start 08/02/16 at 15:00 Zinc Sulfate (Zinc Sulfate) 220 mg DAILY GTB Last administered on 08/18/16 08: 36; Admin Dose 220 MG; Start 08/03/16 at 11:30 Multivitamins Therapeutic (Theragran) 1 tab DAILY PO Last administered on 08:36; Admin Dose 1 TAB; Start 08/03/16 at 11:30 Ascorbic Acid (Vitamin C) 500 mg BID GTB Last administered on 08/18/16 08:37; Admin Dose 500 MG; Start 08/03/16 at 11:30 Sodium Hypochlorite (Dakin'S (Dilute 1/40%)) 1 applic BID IRR Last administered on 08/18/16 09:06; Admin Dose 1 APPLIC; Start 08/04/16 at 12:00 Hydromorphone HCl 0.5 mg 0.5 mg Q8H PRN IV PAIN Last administered on 08/18/16 04:56; Admin Dose 0.5 MG; Start 08/04/16 at 12:00 Cefepime HCl (Maxipime 1gm/50 ml (Pmx)) 50 ml @ 100 mls/hr Q12 IVPB Last administered on 08/18/16 09:05; Admin Dose 100 MLS/HR; Start 08/08/16 at 16:00 Levothyroxine Sodium (Synthroid) 25 mcg DAILY@06 PO Last administered on 05:18; Admin Dose 25 MCG; Start 08/11/16 at 06:00 Docusate Sodium (Colace Liquid Cup) 100 mg Q12 GTB Last administered on 08:37; Admin Dose 100 MG; Start 08/11/16 at 10:30 Paroxetine HCl (Paxil) 10 mg DAILY PO Last administered on 08/18/16 08:36; Admin Dose 10 MG; Start 08/11/16 at 21:00 Insulin Aspart (Novolog Insulin Pen) NOVOLOG *MODERATE* ALGORI... Q6 SC Last administered on 08/18/16 12:33; Admin Dose 2 UNIT; Start 08/13/16 at 00:00 Famotidine (Pepcid) 20 mg Q12 GTB Last administered on 08/18/16 08:36; Admin Dose 20 MG; Start 08/13/16 at 09:00 Lactobacillus Acidoph/Bulgaricus (Floranex) 1 tab TID GTB Last administered on 08/18/16 12:30; Admin Dose 1 TAB; Start 08/15/16 at 21:30 Metformin HCl (Glucophage) 500 mg Q12 GTB Last administered on 08/18/16 08:36 ; Admin Dose 500 MG; Start 08/15/16 at 21:30 Linezolid (Zyvox) 600 mg BID GTB Last administered on 08/18/16 08:36; Admin Dose 600 MG; Start 08/15/16 at 21:30 Metronidazole (Flagyl) 500 mg Q8 GTB Last administered on 08/18/16 12:28; Admin Dose 500 MG; Start 08/15/16 at 22:00 Acetaminophen 650 mg 650 mg Q6H PRN GTB PAIN AND OR ELEVATED TEMP Last administered on 08/18/16 16:44; Admin Dose 650 MG; Start 08/15/16 at 21:30 Colistimethate Sodium/Sodium Chloride (Coly-Mycin/NS) 100 ml @ 200 mls/hr Q12 IVPB Last administered on 08/18/16 09:06; Admin Dose 200 MLS/HR; Start at 21:00 JAMISON STANTON 18, 2017 18:14
[2016-08-19] VITALS (23 sets, daily range): BP systolic 94–120; BP diastolic 54–64; PULSE 97–115; RESP 24
[2016-08-19] MEDS: HYDROmorphONE 1 MG/ML SYG IV PRN ×2 (04:44→18:35)
[2016-08-19] MEDS: metroNIDAZOLE 500 MG TAB GTB SCH ×3 (05:16→21:52)
[2016-08-19] MEDS: LEVOTHYROXINE 25 MCG TAB PO SCH (05:16)
[2016-08-19] MEDS: INSULIN ASPART [NOVOLOG] 3 ML PEN SC SCH ×4 (05:21→17:54)
[2016-08-19 05:55] LABS: ADD SCAN DIFF NO
[2016-08-19 06:12] LABS: BASOPHIL # 0.1 10^3/ul (0.0-0.1); BASOPHILS % 0.5 % (0.0-2.0); EOSINOPHILS # 0.4 10^3/ul (0.0-0.5); EOSINOPHILS % 2.6 % (0.0-7.0); HEMATOCRIT 27.2 % (42.0-52.0); HEMOGLOBIN 8.7 g/dl (14.0-18.0); LYMPHOCYTES # 0.7 10^3/ul (0.8-2.9); LYMPHOCYTES % 4.7 % (15.0-51.0); MEAN CORPUSCULAR VOLUME 84.5 fl (82.0-101.0); MEAN PLATELET VOLUME 9.9 fl (7.4-10.4); NEUTROPHIL # 12.4 10^3/ul (1.6-7.5); NEUTROPHILS % 83.8 % (39.0-77.0); PLATELET COUNT 388 10^3/UL (140-415); RED BLOOD COUNT 3.22 10^6/ul (4.70-6.10); RED CELL DISTRIBUTION WIDTH 17.4 % (11.5-14.5); WHITE BLOOD COUNT 14.8 10^3/ul (4.8-10.8)
[2016-08-19 06:21] LABS: CREATININE 0.71 mg/dl (0.61-1.24)
[2016-08-19 06:22] LABS: PHOSPHORUS 2.7 mg/dl (2.5-4.9)
[2016-08-19 06:23] LABS: CALCIUM 11.4 mg/dl (8.4-10.2); MAGNESIUM 1.5 mg/dl (1.7-2.5)
[2016-08-19 06:48] LABS: POTASSIUM 2.9 mmol/L (3.5-5.1)
[2016-08-19] MEDS: ACETAMINOPHEN 325 MG TAB GTB PRN (09:21)
[2016-08-19] MEDS: PAROXETINE 10 MG TAB PO SCH (09:21)
[2016-08-19] MEDS: FLUCONAZOLE 100 MG TAB PO SCH (09:21)
[2016-08-19] MEDS: ZINC SULFATE 220 MG CAP GTB SCH (09:21)
[2016-08-19] MEDS: FAMOTIDINE 20 MG TAB GTB SCH ×2 (09:21→21:52)
[2016-08-19] MEDS: ASCORBIC ACID 500 MG TAB GTB SCH ×2 (09:21→21:52)
[2016-08-19] MEDS: CA CARBONATE (250 MG/ML) 5ML CUP GTB SCH ×2 (09:21→21:52)
[2016-08-19] MEDS: LACTOBACILLUS CHEW TAB GTB SCH ×3 (09:21→21:52)
[2016-08-19] MEDS: DOCUSATE SODIUM 10 MG/ML (10ML CUP) GTB SCH ×2 (09:21→21:52)
[2016-08-19] MEDS: metFORMIN 500 MG TAB GTB SCH ×2 (09:21→21:54)
[2016-08-19] MEDS: ZYVOX 600 MG TAB GTB SCH ×2 (09:21→21:54)
[2016-08-19] MEDS: MULTIVITAMINS THERAPEUTIC TAB PO SCH (09:21)
[2016-08-19] MEDS: SODIUM HYPOCHLORITE 1/40% 1L IRRIG IRR SCH ×2 (09:22→21:54)
[2016-08-19] MEDS: SODIUM HYPOCHLORITE 0.125% 473 ML BTL IRR SCH ×2 (09:22→21:54)
[2016-08-19] MEDS: LORAZEPAM 2 MG INJ IV PRN (09:23)
[2016-08-19] MEDS: POTASSIUM CHLORIDE 250 ML IVPB SCH ×2 (09:45→17:55)
[2016-08-19] MEDS ORDERED: MAGNESIUM SULFATE 4 GM/100 ML 100 ML IVPB ONE (10:00)
[2016-08-19] MEDS: CEFEPIME 1GM/50 ML (PMX) 50 ML IVPB SCH ×2 (10:39→21:51)
[2016-08-19] MEDS: COLISTIMETHATE 150 MG in SOD CHLORIDE 0.9% 100 ML IVPB SCH ×2 (12:35→21:51)
--- NOTE | 2016-08-19 13:47 | PN ---
Date/Time of Note Date/Time of Note DATE: 08/19/16 TIME: 13:42 Assessment/Plan VTE Prophylaxis VTE Prophylaxis Intervention: SCD's Lines/Catheters [facility] Saline Lock Assessment/Plan Chief Complaint/Hosp Course 1. Sepsis - sec to resp infection+ UTI + decubitus ulcer infx Continue antibiotics WBC scan is negative, CT abdomen and pelvis shows no evidence of osteomyelitis, repeat blood cultures are negative Follow up with ID recommendations 2. Chronic respiratory failure,Vent dependent via trach 3. Recurrent Multifocal bronchitis/bronchiolitis/bronchopneumonia Chest x-ray shows improvement 4. Chronic Dysphagia currently on G-tube feeds. 07/05 #5 5. C2 fracture / fall in April 2016 + chronic neuropathy with cervical collar Per patient he was meant to have collar only for 4months, neurosurgery consultation appreciated collar now removed 6. Multiple infected decubiti down to the bone Continue antibiotics Per surgery, Patient needs diverting colostomy but was having cardiac issues and is still mildly septic, awaiting stabilization 7. Anemia of chronic disease 8. DM 2 with suboptimal control: stable on metformin 9. Cardiomyopathy with ejection fraction 45-50% via echo on previous admission 10. Pseudomonas / Addis UTI 11. New Hypothyroidism 12. Probable Depression : patient was refusing turning and wound care / started on Paxil 13. FEN Replace electrolytes today, have started scheduled Mg and Potassium G tube replacement starting tomorrow 07/05 persistent need for repletion Dispo: Patient would like to go to back to the congregate living that he came from Prophylaxis: H2 pam / SCDs Problems: Subjective 24 Hr Interval Summary Constitutional: no complaints Exam/Review of Systems Vital Signs Vitals Vital Signs Date Time Temp Pulse Resp B/P Pulse Ox O2 Delivery O2 Flow Rate FiO2 08/19/16 13:25 113 24 97 40 08/19/16 11:47 99.0 106/61 Intake and Output 08/18/16 08/18/16 08/19/16 15:00 23:00 07:00 Intake Total 1740 ml 1720 ml Output Total 1800 ml 2700 ml Balance -60 ml -980 ml Exam Constitutional: alert Respiratory: clear to auscultation Cardiovascular: regular rate and rhythm Gastrointestinal: soft, No distended Musculoskeletal: nl extremities to inspection Results Result Diagram: 08/19/16 0550 08/19/16 0550 Results 24 hrs Laboratory Tests Test 08/18/16 16:50 08/18/16 21:40 08/19/16 05:21 08/19/16 05:50 Bedside Glucose 131 124 106 Anion Gap 13 Basophils # 0.1 Basophils % 0.5 Blood Urea Nitrogen 40 H Calcium Level 11.4 H Carbon Dioxide Level 28 Chloride Level 99 Creatinine 0.71 Eosinophils # 0.4 Eosinophils % 2.6 Glucose Level 101 Hematocrit 27.2 L Hemoglobin 8.7 L Lymphocytes # 0.7 L Lymphocytes % 4.7 L Magnesium Level 1.5 L Mean Corpuscular Hemoglobin 27.0 L Mean Corpuscular Hemoglobin Concent 32.0 Mean Corpuscular Volume 84.5 Mean Platelet Volume 9.9 Monocytes # 1.0 H Monocytes % 7.0 Neutrophils # 12.4 H Neutrophils % 83.8 H Nucleated Red Blood Cells # 0.0 Nucleated Red Blood Cells % 0.0 Phosphorus Level 2.7 Platelet Count 388 Potassium Level 2.9 *L Red Blood Count 3.22 L Red Cell Distribution Width 17.4 H Sodium Level 137 White Blood Count 14.8 #H Test 08/19/16 12:40 Bedside Glucose 132 Medications Medications Current Medications Ondansetron HCl (Zofran Inj) 4 mg Q6H PRN IV NAUSEA AND/OR VOMITING Last administered on 08/15/16 05:11; Admin Dose 4 MG; Start 07/31/16 at 15:00 Morphine Sulfate (morphine) 2 mg Q4H PRN IV SEVERE PAIN LEVEL 7-10 Last administered on 08/02/16 20:59; Admin Dose 2 MG; Start 07/31/16 at 15:00 Magnesium Hydroxide (Milk Of Mag) 30 ml DAILY PRN PO CONSTIPATION; Start at 15:00 Sodium Biphosphate/ Sodium Phosphate (Fleet Enema) 133 ml DAILY PRN [place] CONSTIPATION; Start 07/31/16 at 15:00 Hydralazine HCl (Apresoline) 10 mg Q6H PRN IV ELEVATED BLOOD PRESSURE; Start at 15:00 Nitroglycerin (Nitroglycerin (Sl Tab) 0.4 Mg) 1 tab Q5M PRN SL ANGINA; Start at 15:00 Miscellaneous Information 1 ea NOTE XX ; Start 07/31/16 at 16:30 Glucose (Glutose) 15 gm Q15M PRN PO DECREASED GLUCOSE; Start 07/31/16 at 16:30 Glucose (Glutose) 22.5 gm Q15M PRN PO DECREASED GLUCOSE; Start 07/31/16 at 16: 30 Dextrose (D50w Syringe) 25 ml Q15M PRN IV DECREASED GLUCOSE; Start 07/31/16 at 16:30 Dextrose (D50w Syringe) 50 ml Q15M PRN IV DECREASED GLUCOSE; Start 07/31/16 at 16:30 Glucagon (Glucagen) 1 mg Q15M PRN IM DECREASED GLUCOSE; Start 07/31/16 at 16:30 Glucose (Glutose) 15 gm Q15M PRN BUCCAL DECREASED GLUCOSE; Start 07/31/16 at 16 :30 Sodium Hypochlorite (Dakin'S (1/4 Strength)) 1 applic BID IRR Last administered on 08/19/16 09:22; Admin Dose 1 APPLIC; Start 08/01/16 at 21:00 Calcium Carbonate (Ca Carbonate) 1,250 mg BID GTB Last administered on 09:21; Admin Dose 1,250 MG; Start 08/01/16 at 22:30 Acetaminophen/ Hydrocodone Bitart ([place] (5/325)) 1 tab Q4H PRN PEG MODERATE PAIN LEVEL 4-6 Last administered on 08/17/16 00:26; Admin Dose 1 TAB; Start 08/02/16 at 00:00 Lorazepam (Ativan) 0.5 mg Q4H PRN IV ANXIETY Last administered on 08/19/16 09: 23; Admin Dose 0.5 MG; Start 08/02/16 at 00:00 Zolpidem Tartrate (Ambien) 10 mg HS PRN PEG INSOMNIA Last administered on 21:35; Admin Dose 10 MG; Start 08/02/16 at 03:30 Fluconazole (Diflucan) 100 mg DAILY PO Last administered on 08/19/16 09:21; Admin Dose 100 MG; Start 08/02/16 at 12:30 Ibuprofen (Motrin) 600 mg Q6H PRN PO PAIN OR TEMP ABOVE 38C Last administered on 08/11/16 21:29; Admin Dose 600 MG; Start 08/02/16 at 15:00 Zinc Sulfate (Zinc Sulfate) 220 mg DAILY GTB Last administered on 08/19/16 09: 21; Admin Dose 220 MG; Start 08/03/16 at 11:30 Multivitamins Therapeutic (Theragran) 1 tab DAILY PO Last administered on 09:21; Admin Dose 1 TAB; Start 08/03/16 at 11:30 Ascorbic Acid (Vitamin C) 500 mg BID GTB Last administered on 08/19/16 09:21; Admin Dose 500 MG; Start 08/03/16 at 11:30 Sodium Hypochlorite (Dakin'S (Dilute 1/40%)) 1 applic BID IRR Last administered on 08/19/16 09:22; Admin Dose 1 APPLIC; Start 08/04/16 at 12:00 Hydromorphone HCl 0.5 mg 0.5 mg Q8H PRN IV PAIN Last administered on 08/19/16 04:44; Admin Dose 0.5 MG; Start 08/04/16 at 12:00 Cefepime HCl (Maxipime 1gm/50 ml (Pmx)) 50 ml @ 100 mls/hr Q12 IVPB Last administered on 08/19/16 10:39; Admin Dose 100 MLS/HR; Start 08/08/16 at 16:00 Levothyroxine Sodium (Synthroid) 25 mcg DAILY@06 PO Last administered on 05:16; Admin Dose 25 MCG; Start 08/11/16 at 06:00 Docusate Sodium (Colace Liquid Cup) 100 mg Q12 GTB Last administered on 09:21; Admin Dose 100 MG; Start 08/11/16 at 10:30 Paroxetine HCl (Paxil) 10 mg DAILY PO Last administered on 08/19/16 09:21; Admin Dose 10 MG; Start 08/11/16 at 21:00 Insulin Aspart (Novolog Insulin Pen) NOVOLOG *MODERATE* ALGORI... Q6 SC Last administered on 08/18/16 12:33; Admin Dose 2 UNIT; Start 08/13/16 at 00:00 Famotidine (Pepcid) 20 mg Q12 GTB Last administered on 08/19/16 09:21; Admin Dose 20 MG; Start 08/13/16 at 09:00 Lactobacillus Acidoph/Bulgaricus (Floranex) 1 tab TID GTB Last administered on 08/19/16 09:21; Admin Dose 1 TAB; Start 08/15/16 at 21:30 Metformin HCl (Glucophage) 500 mg Q12 GTB Last administered on 08/19/16 09:21 ; Admin Dose 500 MG; Start 08/15/16 at 21:30 Linezolid (Zyvox) 600 mg BID GTB Last administered on 08/19/16 09:21; Admin Dose 600 MG; Start 08/15/16 at 21:30 Metronidazole (Flagyl) 500 mg Q8 GTB Last administered on 08/19/16 05:16; Admin Dose 500 MG; Start 08/15/16 at 22:00 Acetaminophen 650 mg 650 mg Q6H PRN GTB PAIN AND OR ELEVATED TEMP Last administered on 08/19/16 09:21; Admin Dose 650 MG; Start 08/15/16 at 21:30 Colistimethate Sodium 150 mg/ Sodium Chloride 100 ml @ 200 mls/hr Q12 IVPB Last administered on 08/19/16 12:35; Admin Dose 200 MLS/HR; Start 08/16/16 at 21:00 Magnesium Sulfate 100 ml @ 25 mls/hr ONCE ONCE IVPB Last administered on 08/19 12:35; Admin Dose 25 MLS/HR; Start 08/19/16 at 10:00; Stop 08/19/16 at 13: 59 Potassium Chloride (KCl 40 MEQ/250 ML NS) 250 ml @ 62.5 mls/hr Q4H IVPB Last administered on 08/19/16 09:45; Admin Dose 62.5 MLS/HR; Start 08/19/16 at 09:30 ; Stop 08/19/16 at 17:29 Magnesium Oxide (Mag-Ox 400) 400 mg DAILY GTB ; Start 08/20/16 at 09:00 Potassium Chloride (Potassium Chloride Pwd/Soln) 20 meq DAILY GTB ; Start at 09:00 JAMISON STANTON Aug 19, 2016 13:46
--- NOTE | 2016-08-19 15:53 | CONS ---
Date/Time of Note Date/Time of Note DATE: 08/19/16 TIME: 15:52 Assessment/Plan Assessment/Plan Chief Complaint/Hosp Course SUBJECTIVE: No acute events, low grade temps, tachycardic, nad MICROBIOLOGY: Urine culture grew [place] albicans Pseudomonas aeruginosa. Wound culture growing multi-drug resistant Klebsiella pneumoniae and gram- negative rods and Enterococcus species. INDWELLINGS: Trach, PEG, Oliveira, left chest Port-A-Cath. ANTIMICROBIALS: 1. Colistin. 2. Zyvox. 3. Fluconazole. 4. Flagyl 5. Cefepime PHYSICAL EXAMINATION: GENERAL: Chronically ill-appearing, well-developed, middle-aged man who is lying comfortably in bed. HEENT: Head atraumatic, normocephalic. Sclerae anicteric. Buccal mucosa dry. CHEST: Rise symmetrical. Breath sounds diminished to bases. HEART: S1, S2. ABDOMEN: Soft, bowel tones present. EXTREMITIES: With trace edema. Left upper extremity more edematous. ASSESSMENT: 1. Sepsis with ongoing fevers. 2. Multiple decubitus with wound culture growing multi-drug resistant organisms. 3. Healthcare-associated pneumonia. 4. Multidrug resistant urinary tract infection. 5. History of Clostridium difficile colitis. 6. 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 7. Left chest Port-A-Cath. PLAN: Clinically unchanged. Repeat bld cx negative, WBC scan negative, CT abdomen/pelvis neg for OM, continue abx, aggressive pulmonary toilet, local wound care, monitor renal f-n. DW staff Problems: Consultation Date/Type/Reason Admit Date/Time Jul 31, 2016 at 14:20 Initial Consult Date 08/02/16 Type of Consultation: ID Exam/Review of Systems Vital Signs Vitals Vital Signs Date Time Temp Pulse Resp B/P Pulse Ox O2 Delivery O2 Flow Rate FiO2 08/19/16 13:25 113 24 97 40 08/19/16 11:47 99.0 106/61 Intake and Output 08/18/16 08/18/16 08/19/16 15:00 23:00 07:00 Intake Total 1740 ml 1720 ml Output Total 1800 ml 2700 ml Balance -60 ml -980 ml Results Result Diagram: 08/19/16 0550 08/19/16 0550 Results 24 hrs Laboratory Tests Test 08/18/16 16:50 08/18/16 21:40 08/19/16 05:21 08/19/16 05:50 Bedside Glucose 131 124 106 Anion Gap 13 Basophils # 0.1 Basophils % 0.5 Blood Urea Nitrogen 40 H Calcium Level 11.4 H Carbon Dioxide Level 28 Chloride Level 99 Creatinine 0.71 Eosinophils # 0.4 Eosinophils % 2.6 Glucose Level 101 Hematocrit 27.2 L Hemoglobin 8.7 L Lymphocytes # 0.7 L Lymphocytes % 4.7 L Magnesium Level 1.5 L Mean Corpuscular Hemoglobin 27.0 L Mean Corpuscular Hemoglobin Concent 32.0 Mean Corpuscular Volume 84.5 Mean Platelet Volume 9.9 Monocytes # 1.0 H Monocytes % 7.0 Neutrophils # 12.4 H Neutrophils % 83.8 H Nucleated Red Blood Cells # 0.0 Nucleated Red Blood Cells % 0.0 Phosphorus Level 2.7 Platelet Count 388 Potassium Level 2.9 *L Red Blood Count 3.22 L Red Cell Distribution Width 17.4 H Sodium Level 137 White Blood Count 14.8 #H Test 08/19/16 12:40 Bedside Glucose 132 Medications Medications Current Medications Ondansetron HCl (Zofran Inj) 4 mg Q6H PRN IV NAUSEA AND/OR VOMITING Last administered on 08/15/16 05:11; Admin Dose 4 MG; Start 07/31/16 at 15:00 Morphine Sulfate (morphine) 2 mg Q4H PRN IV SEVERE PAIN LEVEL 7-10 Last administered on 08/02/16 20:59; Admin Dose 2 MG; Start 07/31/16 at 15:00 Magnesium Hydroxide (Milk Of Mag) 30 ml DAILY PRN PO CONSTIPATION; Start at 15:00 Sodium Biphosphate/ Sodium Phosphate (Fleet Enema) 133 ml DAILY PRN [place] CONSTIPATION; Start 07/31/16 at 15:00 Hydralazine HCl (Apresoline) 10 mg Q6H PRN IV ELEVATED BLOOD PRESSURE; Start at 15:00 Nitroglycerin (Nitroglycerin (Sl Tab) 0.4 Mg) 1 tab Q5M PRN SL ANGINA; Start at 15:00 Miscellaneous Information 1 ea NOTE XX ; Start 07/31/16 at 16:30 Glucose (Glutose) 15 gm Q15M PRN PO DECREASED GLUCOSE; Start 07/31/16 at 16:30 Glucose (Glutose) 22.5 gm Q15M PRN PO DECREASED GLUCOSE; Start 07/31/16 at 16: 30 Dextrose (D50w Syringe) 25 ml Q15M PRN IV DECREASED GLUCOSE; Start 07/31/16 at 16:30 Dextrose (D50w Syringe) 50 ml Q15M PRN IV DECREASED GLUCOSE; Start 07/31/16 at 16:30 Glucagon (Glucagen) 1 mg Q15M PRN IM DECREASED GLUCOSE; Start 07/31/16 at 16:30 Glucose (Glutose) 15 gm Q15M PRN BUCCAL DECREASED GLUCOSE; Start 07/31/16 at 16 :30 Sodium Hypochlorite (Dakin'S (1/4 Strength)) 1 applic BID IRR Last administered on 08/19/16 09:22; Admin Dose 1 APPLIC; Start 08/01/16 at 21:00 Calcium Carbonate (Ca Carbonate) 1,250 mg BID GTB Last administered on 09:21; Admin Dose 1,250 MG; Start 08/01/16 at 22:30 Acetaminophen/ Hydrocodone Bitart ([place] (5/325)) 1 tab Q4H PRN PEG MODERATE PAIN LEVEL 4-6 Last administered on 08/17/16 00:26; Admin Dose 1 TAB; Start 08/02/16 at 00:00 Lorazepam (Ativan) 0.5 mg Q4H PRN IV ANXIETY Last administered on 08/19/16 09: 23; Admin Dose 0.5 MG; Start 08/02/16 at 00:00 Zolpidem Tartrate (Ambien) 10 mg HS PRN PEG INSOMNIA Last administered on 21:35; Admin Dose 10 MG; Start 08/02/16 at 03:30 Fluconazole (Diflucan) 100 mg DAILY PO Last administered on 08/19/16 09:21; Admin Dose 100 MG; Start 08/02/16 at 12:30 Ibuprofen (Motrin) 600 mg Q6H PRN PO PAIN OR TEMP ABOVE 38C Last administered on 08/11/16 21:29; Admin Dose 600 MG; Start 08/02/16 at 15:00 Zinc Sulfate (Zinc Sulfate) 220 mg DAILY GTB Last administered on 08/19/16 09: 21; Admin Dose 220 MG; Start 08/03/16 at 11:30 Multivitamins Therapeutic (Theragran) 1 tab DAILY PO Last administered on 09:21; Admin Dose 1 TAB; Start 08/03/16 at 11:30 Ascorbic Acid (Vitamin C) 500 mg BID GTB Last administered on 08/19/16 09:21; Admin Dose 500 MG; Start 08/03/16 at 11:30 Sodium Hypochlorite (Dakin'S (Dilute 1/40%)) 1 applic BID IRR Last administered on 08/19/16 09:22; Admin Dose 1 APPLIC; Start 08/04/16 at 12:00 Hydromorphone HCl 0.5 mg 0.5 mg Q8H PRN IV PAIN Last administered on 08/19/16 04:44; Admin Dose 0.5 MG; Start 08/04/16 at 12:00 Cefepime HCl (Maxipime 1gm/50 ml (Pmx)) 50 ml @ 100 mls/hr Q12 IVPB Last administered on 08/19/16 10:39; Admin Dose 100 MLS/HR; Start 08/08/16 at 16:00 Levothyroxine Sodium (Synthroid) 25 mcg DAILY@06 PO Last administered on 05:16; Admin Dose 25 MCG; Start 08/11/16 at 06:00 Docusate Sodium (Colace Liquid Cup) 100 mg Q12 GTB Last administered on 09:21; Admin Dose 100 MG; Start 08/11/16 at 10:30 Paroxetine HCl (Paxil) 10 mg DAILY PO Last administered on 08/19/16 09:21; Admin Dose 10 MG; Start 08/11/16 at 21:00 Insulin Aspart (Novolog Insulin Pen) NOVOLOG *MODERATE* ALGORI... Q6 SC Last administered on 08/18/16 12:33; Admin Dose 2 UNIT; Start 08/13/16 at 00:00 Famotidine (Pepcid) 20 mg Q12 GTB Last administered on 08/19/16 09:21; Admin Dose 20 MG; Start 08/13/16 at 09:00 Lactobacillus Acidoph/Bulgaricus (Floranex) 1 tab TID GTB Last administered on 08/19/16 14:13; Admin Dose 1 TAB; Start 08/15/16 at 21:30 Metformin HCl (Glucophage) 500 mg Q12 GTB Last administered on 08/19/16 09:21 ; Admin Dose 500 MG; Start 08/15/16 at 21:30 Linezolid (Zyvox) 600 mg BID GTB Last administered on 08/19/16 09:21; Admin Dose 600 MG; Start 08/15/16 at 21:30 Metronidazole (Flagyl) 500 mg Q8 GTB Last administered on 08/19/16 14:13; Admin Dose 500 MG; Start 08/15/16 at 22:00 Acetaminophen 650 mg 650 mg Q6H PRN GTB PAIN AND OR ELEVATED TEMP Last administered on 08/19/16 09:21; Admin Dose 650 MG; Start 08/15/16 at 21:30 Colistimethate Sodium 150 mg/ Sodium Chloride 100 ml @ 200 mls/hr Q12 IVPB Last administered on 08/19/16 12:35; Admin Dose 200 MLS/HR; Start 08/16/16 at 21:00 Potassium Chloride (KCl 40 MEQ/250 ML NS) 250 ml @ 62.5 mls/hr Q4H IVPB Last administered on 08/19/16 09:45; Admin Dose 62.5 MLS/HR; Start 08/19/16 at 09:30 ; Stop 08/19/16 at 17:29 Magnesium Oxide (Mag-Ox 400) 400 mg DAILY GTB ; Start 08/20/16 at 09:00 Potassium Chloride (Potassium Chloride Pwd/Soln) 20 meq DAILY GTB ; Start at 09:00 LESLIE FERRARO NP Aug 19, 2016 15:53
--- NOTE | 2016-08-19 17:21 | PN ---
DATE: 08/19/2016 Mr. Alfaro is stable, no new events overnight. OBJECTIVE: VITAL SIGNS: Temperature is 99, pulse 115, blood pressure 106/61, O2 saturation 96%, FIO2 of 40%. NECK: Supple. No JVD or lymphadenopathy. CARDIAC: S1, S2, no added sounds or murmurs. CHEST: Diminished air entry bilaterally. ABDOMEN: Soft, nontender. No guarding or rebound. EXTREMITIES: No cyanosis, clubbing, 1+ edema. NEUROLOGIC: Generalized weakness. LABORATORY DATA: White count 14.8, hemoglobin 8.7, platelets of 388,000, BUN 40, creatinine 0.71. IMPRESSION AND PLAN: 1. Ventilator dependent respiratory failure, currently stable. 2. Resolving leukocytosis. 3. Chronic encephalopathy. 4. History of dysphagia. PLAN: 1. Continued wound care. 2. Pulmonary toilet. 3. Antibiotics, per ID. 4. DVT and GI prophylaxis. Dictated By: BAI SWANSON/SCOTTIE Conf#: [id number] DID#: [id number]
[2016-08-19] MEDS: ALBUTEROL/IPRATROPIUM (NEB) 3 ML AMP HHN PRN (17:39)
[2016-08-19] MEDS: ZOLPIDEM 5 MG TAB PEG PRN (21:52)
[2016-08-19] MEDS: HYDROCODONE/APAP (5/325) TAB PEG PRN (21:53)
[2016-08-20] VITALS (27 sets, daily range): BP systolic 84–99; BP diastolic 47–55; PULSE 101–120; RESP 18–28
[2016-08-20] MEDS: morphine 2 MG INJ IV PRN (00:32)
[2016-08-20] MEDS: ACETAMINOPHEN 325 MG TAB GTB PRN ×2 (03:12→08:44)
[2016-08-20] MEDS: LORAZEPAM 2 MG INJ IV PRN ×3 (03:13→17:04)
[2016-08-20] MEDS ORDERED: SOD CHLORIDE 0.9% 250 ML IV ONE (05:07)
[2016-08-20] MEDS: INSULIN ASPART [NOVOLOG] 3 ML PEN SC SCH ×4 (05:32→18:00)
[2016-08-20] MEDS: metroNIDAZOLE 500 MG TAB GTB SCH ×3 (05:34→22:09)
[2016-08-20] MEDS: LEVOTHYROXINE 25 MCG TAB PO SCH (05:35)
[2016-08-20 07:25] LABS: ADD SCAN DIFF NO
[2016-08-20 07:29] LABS: BASOPHIL # 0.1 10^3/ul (0.0-0.1); BASOPHILS % 0.3 % (0.0-2.0); EOSINOPHILS # 0.4 10^3/ul (0.0-0.5); EOSINOPHILS % 2.6 % (0.0-7.0); HEMATOCRIT 27.4 % (42.0-52.0); HEMOGLOBIN 8.4 g/dl (14.0-18.0); LYMPHOCYTES # 0.7 10^3/ul (0.8-2.9); MEAN CORPUSCULAR HEMOGLOBIN 26.4 pg (29.0-33.0); MEAN CORPUSCULAR HGB CONC 30.7 g/dl (32.0-37.0); MEAN CORPUSCULAR VOLUME 86.2 fl (82.0-101.0); MEAN PLATELET VOLUME 9.9 fl (7.4-10.4); MONOCYTE # 1.1 10^3/ul (0.3-0.9); MONOCYTES % 6.3 % (0.0-11.0); NEUTROPHIL # 14.3 10^3/ul (1.6-7.5); NEUTROPHILS % 85.5 % (39.0-77.0); PLATELET COUNT 372 10^3/UL (140-415); RED BLOOD COUNT 3.18 10^6/ul (4.70-6.10); RED CELL DISTRIBUTION WIDTH 17.6 % (11.5-14.5); WHITE BLOOD COUNT 16.7 10^3/ul (4.8-10.8)
[2016-08-20 07:45] LABS: POTASSIUM 3.9 mmol/L (3.5-5.1)
[2016-08-20 07:48] LABS: CREATININE 0.71 mg/dl (0.61-1.24)
[2016-08-20 07:49] LABS: CALCIUM 11.5 mg/dl (8.4-10.2); MAGNESIUM 1.8 mg/dl (1.7-2.5)
[2016-08-20] MEDS: metFORMIN 500 MG TAB GTB SCH ×2 (08:43→22:10)
[2016-08-20] MEDS: POTASSIUM CHLORIDE 20 MEQ POWDER FOR ORAL SOLN GTB SCH (08:43)
[2016-08-20] MEDS: DOCUSATE SODIUM 10 MG/ML (10ML CUP) GTB SCH ×2 (08:43→22:09)
[2016-08-20] MEDS: CA CARBONATE (250 MG/ML) 5ML CUP GTB SCH ×2 (08:44→22:09)
[2016-08-20] MEDS: MAGNESIUM OXIDE 400 MG TAB GTB SCH (08:44)
[2016-08-20] MEDS: FLUCONAZOLE 100 MG TAB PO SCH (08:45)
[2016-08-20] MEDS: ASCORBIC ACID 500 MG TAB GTB SCH ×2 (08:45→22:11)
[2016-08-20] MEDS: LACTOBACILLUS CHEW TAB GTB SCH ×3 (08:45→22:09)
[2016-08-20] MEDS: ZYVOX 600 MG TAB GTB SCH ×2 (08:45→21:00)
[2016-08-20] MEDS: MULTIVITAMINS THERAPEUTIC TAB PO SCH (08:45)
[2016-08-20] MEDS: ZINC SULFATE 220 MG CAP GTB SCH (08:46)
[2016-08-20] MEDS: FAMOTIDINE 20 MG TAB GTB SCH ×2 (08:46→22:10)
[2016-08-20] MEDS: PAROXETINE 10 MG TAB PO SCH (08:46)
[2016-08-20] MEDS: CEFEPIME 1GM/50 ML (PMX) 50 ML IVPB SCH ×2 (08:50→21:12)
[2016-08-20] MEDS: COLISTIMETHATE 150 MG in SOD CHLORIDE 0.9% 100 ML IVPB SCH ×2 (08:51→21:13)
[2016-08-20] MEDS: SODIUM HYPOCHLORITE 1/40% 1L IRRIG IRR SCH ×2 (08:51→21:00)
[2016-08-20] MEDS: SODIUM HYPOCHLORITE 0.125% 473 ML BTL IRR SCH ×2 (08:51→22:11)
[2016-08-20] MEDS: ALBUTEROL/IPRATROPIUM (NEB) 3 ML AMP HHN PRN ×2 (09:28→20:14)
--- NOTE | 2016-08-20 12:28 | CONS ---
Date/Time of Note Date/Time of Note DATE: 08/20/16 TIME: 12:22 Assessment/Plan Assessment/Plan Additional Assessment/Plan Ventilator settings; AC of 24, tidal volume of 500, 60% FiO2 PEEP of 5. Assessment recommendations; 1. Patient admitted for severe bilateral pneumonia. 2. 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 3. Hypertension. 4. Diabetes. 5. Severe sacral decubitus and upper posterior thigh decubitus ulcers Continue current treatment. Obtain a follow-up chest x-ray. Prognosis remains poor. Consultation Date/Type/Reason Admit Date/Time Jul 31, 2016 at 14:20 Initial Consult Date 08/02/16 Type of Consultation: Pulmonary 24 HR Interval Summary Free Text/Dictation Patient condition remains tenuous at best. Still requiring high FiO2 of 60%. Patient however remains completely awake alert. Running low-grade fevers off and on. General exam; young male, on ventilator via tracheostomy. Awake and alert. Currently in no distress. Exam/Review of Systems Vital Signs Vitals Vital Signs Date Time Temp Pulse Resp B/P Pulse Ox O2 Delivery O2 Flow Rate FiO2 08/20/16 11:59 99.2 125 27 93/54 95 08/20/16 11:09 60 Intake and Output 08/19/16 08/19/16 08/20/16 15:00 23:00 07:00 Intake Total 1460 ml 1520 ml Output Total 2500 ml 2000 ml Balance -1040 ml -480 ml Exam HEENT examination; soft c-collar applied to neck, no JVD. No lymphadenopathy. Midline trachea. No thyromegaly. Tracheostomy in place. Pharynx is clear. Patient has good dentition. Pupils are midsize and reactive to light. Chest examination; diffuse crackles involving lower lobes bilaterally. Upper lobes are fairly clear. S1-S2 audible, no murmurs. Regular rhythm. Abdomen examination; soft, G-tube in place. No organomegaly. Bowel sounds audible. Back examination; there is a severe stage IV decubitus ulcer involving the sacrum as well as upper posterior thighs. Extremity examination; no peripheral edema. TEACHING MANAGER examination; patient is awake alert has stable quadriplegia. Results Result Diagram: 08/20/16 0641 08/20/16 0641 Results 24 hrs Laboratory Tests Test 08/19/16 12:40 08/19/16 17:54 08/19/16 21:58 08/20/16 05:30 Bedside Glucose 132 117 122 121 Test 08/20/16 06:41 08/20/16 06:42 Anion Gap 12 Basophils # 0.1 Basophils % 0.3 Blood Urea Nitrogen 41 H Calcium Level 11.5 H Carbon Dioxide Level 28 Chloride Level 100 Creatinine 0.71 Eosinophils # 0.4 Eosinophils % 2.6 Glucose Level 110 Hematocrit 27.4 L Hemoglobin 8.4 L Lymphocytes # 0.7 L Lymphocytes % 4.0 L Magnesium Level 1.8 Mean Corpuscular Hemoglobin 26.4 L Mean Corpuscular Hemoglobin Concent 30.7 L Mean Corpuscular Volume 86.2 Mean Platelet Volume 9.9 Monocytes # 1.1 H Monocytes % 6.3 Neutrophils # 14.3 H Neutrophils % 85.5 H Nucleated Red Blood Cells # 0.0 Nucleated Red Blood Cells % 0.0 Phosphorus Level 3.0 Platelet Count 372 Potassium Level 3.9 Red Blood Count 3.18 L Red Cell Distribution Width 17.6 H Sodium Level 136 White Blood Count 16.7 H Bedside Glucose 120 Medications Medications Current Medications Ondansetron HCl (Zofran Inj) 4 mg Q6H PRN IV NAUSEA AND/OR VOMITING Last administered on 08/15/16 05:11; Admin Dose 4 MG; Start 07/31/16 at 15:00 Morphine Sulfate (morphine) 2 mg Q4H PRN IV SEVERE PAIN LEVEL 7-10 Last administered on 08/20/16 00:32; Admin Dose 2 MG; Start 07/31/16 at 15:00 Magnesium Hydroxide (Milk Of Mag) 30 ml DAILY PRN PO CONSTIPATION; Start at 15:00 Sodium Biphosphate/ Sodium Phosphate (Fleet Enema) 133 ml DAILY PRN [place] CONSTIPATION; Start 07/31/16 at 15:00 Hydralazine HCl (Apresoline) 10 mg Q6H PRN IV ELEVATED BLOOD PRESSURE; Start at 15:00 Nitroglycerin (Nitroglycerin (Sl Tab) 0.4 Mg) 1 tab Q5M PRN SL ANGINA; Start at 15:00 Miscellaneous Information 1 ea NOTE XX ; Start 07/31/16 at 16:30 Glucose (Glutose) 15 gm Q15M PRN PO DECREASED GLUCOSE; Start 07/31/16 at 16:30 Glucose (Glutose) 22.5 gm Q15M PRN PO DECREASED GLUCOSE; Start 07/31/16 at 16: 30 Dextrose (D50w Syringe) 25 ml Q15M PRN IV DECREASED GLUCOSE; Start 07/31/16 at 16:30 Dextrose (D50w Syringe) 50 ml Q15M PRN IV DECREASED GLUCOSE; Start 07/31/16 at 16:30 Glucagon (Glucagen) 1 mg Q15M PRN IM DECREASED GLUCOSE; Start 07/31/16 at 16:30 Glucose (Glutose) 15 gm Q15M PRN BUCCAL DECREASED GLUCOSE; Start 07/31/16 at 16 :30 Sodium Hypochlorite (Dakin'S (1/4 Strength)) 1 applic BID IRR Last administered on 08/20/16 08:51; Admin Dose 1 APPLIC; Start 08/01/16 at 21:00 Calcium Carbonate (Ca Carbonate) 1,250 mg BID GTB Last administered on 08:44; Admin Dose 1,250 MG; Start 08/01/16 at 22:30 Acetaminophen/ Hydrocodone Bitart ([place] (5/325)) 1 tab Q4H PRN PEG MODERATE PAIN LEVEL 4-6 Last administered on 08/19/16 21:53; Admin Dose 1 TAB; Start 08/02/16 at 00:00 Lorazepam (Ativan) 0.5 mg Q4H PRN IV ANXIETY Last administered on 08/20/16 10: 04; Admin Dose 0.5 MG; Start 08/02/16 at 00:00 Zolpidem Tartrate (Ambien) 10 mg HS PRN PEG INSOMNIA Last administered on 21:52; Admin Dose 10 MG; Start 08/02/16 at 03:30 Fluconazole (Diflucan) 100 mg DAILY PO Last administered on 08/20/16 08:45; Admin Dose 100 MG; Start 08/02/16 at 12:30 Ibuprofen (Motrin) 600 mg Q6H PRN PO PAIN OR TEMP ABOVE 38C Last administered on 08/11/16 21:29; Admin Dose 600 MG; Start 08/02/16 at 15:00 Zinc Sulfate (Zinc Sulfate) 220 mg DAILY GTB Last administered on 08/20/16 08: 46; Admin Dose 220 MG; Start 08/03/16 at 11:30 Multivitamins Therapeutic (Theragran) 1 tab DAILY PO Last administered on 08:45; Admin Dose 1 TAB; Start 08/03/16 at 11:30 Ascorbic Acid (Vitamin C) 500 mg BID GTB Last administered on 08/20/16 08:45; Admin Dose 500 MG; Start 08/03/16 at 11:30 Sodium Hypochlorite (Dakin'S (Dilute 1/40%)) 1 applic BID IRR Last administered on 08/20/16 08:51; Admin Dose 1 APPLIC; Start 08/04/16 at 12:00 Hydromorphone HCl 0.5 mg 0.5 mg Q8H PRN IV PAIN Last administered on 08/19/16 18:35; Admin Dose 0.5 MG; Start 08/04/16 at 12:00 Cefepime HCl (Maxipime 1gm/50 ml (Pmx)) 50 ml @ 100 mls/hr Q12 IVPB Last administered on 08/20/16 08:50; Admin Dose 100 MLS/HR; Start 08/08/16 at 16:00 Levothyroxine Sodium (Synthroid) 25 mcg DAILY@06 PO Last administered on 05:35; Admin Dose 25 MCG; Start 08/11/16 at 06:00 Docusate Sodium (Colace Liquid Cup) 100 mg Q12 GTB Last administered on 08:43; Admin Dose 100 MG; Start 08/11/16 at 10:30 Paroxetine HCl (Paxil) 10 mg DAILY PO Last administered on 08/20/16 08:46; Admin Dose 10 MG; Start 08/11/16 at 21:00 Insulin Aspart (Novolog Insulin Pen) NOVOLOG *MODERATE* ALGORI... Q6 SC Last administered on 08/18/16 12:33; Admin Dose 2 UNIT; Start 08/13/16 at 00:00 Famotidine (Pepcid) 20 mg Q12 GTB Last administered on 08/20/16 08:46; Admin Dose 20 MG; Start 08/13/16 at 09:00 Lactobacillus Acidoph/Bulgaricus (Floranex) 1 tab TID GTB Last administered on 08/20/16 08:45; Admin Dose 1 TAB; Start 08/15/16 at 21:30 Metformin HCl (Glucophage) 500 mg Q12 GTB Last administered on 08/20/16 08:43 ; Admin Dose 500 MG; Start 08/15/16 at 21:30 Linezolid (Zyvox) 600 mg BID GTB Last administered on 08/20/16 08:45; Admin Dose 600 MG; Start 08/15/16 at 21:30 Metronidazole (Flagyl) 500 mg Q8 GTB Last administered on 08/20/16 05:34; Admin Dose 500 MG; Start 08/15/16 at 22:00 Acetaminophen 650 mg 650 mg Q6H PRN GTB PAIN AND OR ELEVATED TEMP Last administered on 08/20/16 08:44; Admin Dose 650 MG; Start 08/15/16 at 21:30 Colistimethate Sodium/Sodium Chloride (Coly-Mycin/NS) 100 ml @ 200 mls/hr Q12 IVPB Last administered on 08/20/16 08:51; Admin Dose 200 MLS/HR; Start at 21:00 Magnesium Oxide (Mag-Ox 400) 400 mg DAILY GTB Last administered on 08/20/16 08 :44; Admin Dose 400 MG; Start 08/20/16 at 09:00 Potassium Chloride (Potassium Chloride Pwd/Soln) 20 meq DAILY GTB Last administered on 08/20/16 08:43; Admin Dose 20 MEQ; Start 08/20/16 at 09:00 ALISSON ARRIOLA 20, 2017 12:27
--- NOTE | 2016-08-20 14:49 | CONS ---
Date/Time of Note Date/Time of Note DATE: 08/20/16 TIME: 14:48 Assessment/Plan Assessment/Plan Chief Complaint/Hosp Course SUBJECTIVE: No acute events, on/off low grade temps, looks comfortable MICROBIOLOGY: Urine culture grew [place] albicans Pseudomonas aeruginosa. Wound culture growing multi-drug resistant Klebsiella pneumoniae and gram- negative rods and Enterococcus species. INDWELLINGS: Trach, PEG, Oliveira, left chest Port-A-Cath. ANTIMICROBIALS: 1. Colistin. 2. Zyvox. 3. Fluconazole. 4. Flagyl 5. Cefepime PHYSICAL EXAMINATION: GENERAL: Chronically ill-appearing, well-developed, middle-aged man who is lying comfortably in bed. HEENT: Head atraumatic, normocephalic. Sclerae anicteric. Buccal mucosa dry. CHEST: Rise symmetrical. Breath sounds diminished to bases. HEART: S1, S2. ABDOMEN: Soft, bowel tones present. EXTREMITIES: With trace edema. Left upper extremity more edematous. ASSESSMENT: 1. Sepsis with ongoing fevers. 2. Multiple decubitus with wound culture growing multi-drug resistant organisms. 3. Healthcare-associated pneumonia. 4. Multidrug resistant urinary tract infection. 5. History of Clostridium difficile colitis. 6. 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 7. Left chest Port-A-Cath. PLAN: Clinically unchanged. Repeat bld cx negative, WBC scan negative, CT abdomen/pelvis neg for OM, continue abx, aggressive pulmonary toilet, local wound care, monitor renal f-n. DW staff DW Dr Cheema Problems: Consultation Date/Type/Reason Admit Date/Time Jul 31, 2016 at 14:20 Initial Consult Date 08/02/16 Type of Consultation: ID Exam/Review of Systems Vital Signs Vitals Vital Signs Date Time Temp Pulse Resp B/P Pulse Ox O2 Delivery O2 Flow Rate FiO2 08/20/16 13:40 110 24 98 60 08/20/16 11:59 99.2 93/54 Intake and Output 08/19/16 08/19/16 08/20/16 15:00 23:00 07:00 Intake Total 1460 ml 1520 ml Output Total 2500 ml 2000 ml Balance -1040 ml -480 ml Results Result Diagram: 08/20/16 0641 08/20/16 0641 Results 24 hrs Laboratory Tests Test 08/19/16 17:54 08/19/16 21:58 08/20/16 05:30 08/20/16 06:41 Bedside Glucose 117 122 121 Anion Gap 12 Basophils # 0.1 Basophils % 0.3 Blood Urea Nitrogen 41 H Calcium Level 11.5 H Carbon Dioxide Level 28 Chloride Level 100 Creatinine 0.71 Eosinophils # 0.4 Eosinophils % 2.6 Glucose Level 110 Hematocrit 27.4 L Hemoglobin 8.4 L Lymphocytes # 0.7 L Lymphocytes % 4.0 L Magnesium Level 1.8 Mean Corpuscular Hemoglobin 26.4 L Mean Corpuscular Hemoglobin Concent 30.7 L Mean Corpuscular Volume 86.2 Mean Platelet Volume 9.9 Monocytes # 1.1 H Monocytes % 6.3 Neutrophils # 14.3 H Neutrophils % 85.5 H Nucleated Red Blood Cells # 0.0 Nucleated Red Blood Cells % 0.0 Phosphorus Level 3.0 Platelet Count 372 Potassium Level 3.9 Red Blood Count 3.18 L Red Cell Distribution Width 17.6 H Sodium Level 136 White Blood Count 16.7 H Test 08/20/16 06:42 08/20/16 12:48 Bedside Glucose 120 130 Medications Medications Current Medications Ondansetron HCl (Zofran Inj) 4 mg Q6H PRN IV NAUSEA AND/OR VOMITING Last administered on 08/15/16 05:11; Admin Dose 4 MG; Start 07/31/16 at 15:00 Morphine Sulfate (morphine) 2 mg Q4H PRN IV SEVERE PAIN LEVEL 7-10 Last administered on 08/20/16 00:32; Admin Dose 2 MG; Start 07/31/16 at 15:00 Magnesium Hydroxide (Milk Of Mag) 30 ml DAILY PRN PO CONSTIPATION; Start at 15:00 Sodium Biphosphate/ Sodium Phosphate (Fleet Enema) 133 ml DAILY PRN [place] CONSTIPATION; Start 07/31/16 at 15:00 Hydralazine HCl (Apresoline) 10 mg Q6H PRN IV ELEVATED BLOOD PRESSURE; Start at 15:00 Nitroglycerin (Nitroglycerin (Sl Tab) 0.4 Mg) 1 tab Q5M PRN SL ANGINA; Start at 15:00 Miscellaneous Information 1 ea NOTE XX ; Start 07/31/16 at 16:30 Glucose (Glutose) 15 gm Q15M PRN PO DECREASED GLUCOSE; Start 07/31/16 at 16:30 Glucose (Glutose) 22.5 gm Q15M PRN PO DECREASED GLUCOSE; Start 07/31/16 at 16: 30 Dextrose (D50w Syringe) 25 ml Q15M PRN IV DECREASED GLUCOSE; Start 07/31/16 at 16:30 Dextrose (D50w Syringe) 50 ml Q15M PRN IV DECREASED GLUCOSE; Start 07/31/16 at 16:30 Glucagon (Glucagen) 1 mg Q15M PRN IM DECREASED GLUCOSE; Start 07/31/16 at 16:30 Glucose (Glutose) 15 gm Q15M PRN BUCCAL DECREASED GLUCOSE; Start 07/31/16 at 16 :30 Sodium Hypochlorite (Dakin'S (1/4 Strength)) 1 applic BID IRR Last administered on 08/20/16 08:51; Admin Dose 1 APPLIC; Start 08/01/16 at 21:00 Calcium Carbonate (Ca Carbonate) 1,250 mg BID GTB Last administered on 08:44; Admin Dose 1,250 MG; Start 08/01/16 at 22:30 Acetaminophen/ Hydrocodone Bitart ([place] (5/325)) 1 tab Q4H PRN PEG MODERATE PAIN LEVEL 4-6 Last administered on 08/19/16 21:53; Admin Dose 1 TAB; Start 08/02/16 at 00:00 Lorazepam (Ativan) 0.5 mg Q4H PRN IV ANXIETY Last administered on 08/20/16 10: 04; Admin Dose 0.5 MG; Start 08/02/16 at 00:00 Zolpidem Tartrate (Ambien) 10 mg HS PRN PEG INSOMNIA Last administered on 21:52; Admin Dose 10 MG; Start 08/02/16 at 03:30 Fluconazole (Diflucan) 100 mg DAILY PO Last administered on 08/20/16 08:45; Admin Dose 100 MG; Start 08/02/16 at 12:30 Ibuprofen (Motrin) 600 mg Q6H PRN PO PAIN OR TEMP ABOVE 38C Last administered on 08/11/16 21:29; Admin Dose 600 MG; Start 08/02/16 at 15:00 Zinc Sulfate (Zinc Sulfate) 220 mg DAILY GTB Last administered on 08/20/16 08: 46; Admin Dose 220 MG; Start 08/03/16 at 11:30 Multivitamins Therapeutic (Theragran) 1 tab DAILY PO Last administered on 08:45; Admin Dose 1 TAB; Start 08/03/16 at 11:30 Ascorbic Acid (Vitamin C) 500 mg BID GTB Last administered on 08/20/16 08:45; Admin Dose 500 MG; Start 08/03/16 at 11:30 Sodium Hypochlorite (Dakin'S (Dilute 1/40%)) 1 applic BID IRR Last administered on 08/20/16 08:51; Admin Dose 1 APPLIC; Start 08/04/16 at 12:00 Hydromorphone HCl 0.5 mg 0.5 mg Q8H PRN IV PAIN Last administered on 08/19/16 18:35; Admin Dose 0.5 MG; Start 08/04/16 at 12:00 Cefepime HCl (Maxipime 1gm/50 ml (Pmx)) 50 ml @ 100 mls/hr Q12 IVPB Last administered on 08/20/16 08:50; Admin Dose 100 MLS/HR; Start 08/08/16 at 16:00 Levothyroxine Sodium (Synthroid) 25 mcg DAILY@06 PO Last administered on 05:35; Admin Dose 25 MCG; Start 08/11/16 at 06:00 Docusate Sodium (Colace Liquid Cup) 100 mg Q12 GTB Last administered on 08:43; Admin Dose 100 MG; Start 08/11/16 at 10:30 Paroxetine HCl (Paxil) 10 mg DAILY PO Last administered on 08/20/16 08:46; Admin Dose 10 MG; Start 08/11/16 at 21:00 Insulin Aspart (Novolog Insulin Pen) NOVOLOG *MODERATE* ALGORI... Q6 SC Last administered on 08/18/16 12:33; Admin Dose 2 UNIT; Start 08/13/16 at 00:00 Famotidine (Pepcid) 20 mg Q12 GTB Last administered on 08/20/16 08:46; Admin Dose 20 MG; Start 08/13/16 at 09:00 Lactobacillus Acidoph/Bulgaricus (Floranex) 1 tab TID GTB Last administered on 08/20/16 12:48; Admin Dose 1 TAB; Start 08/15/16 at 21:30 Metformin HCl (Glucophage) 500 mg Q12 GTB Last administered on 08/20/16 08:43 ; Admin Dose 500 MG; Start 08/15/16 at 21:30 Linezolid (Zyvox) 600 mg BID GTB Last administered on 08/20/16 08:45; Admin Dose 600 MG; Start 08/15/16 at 21:30 Metronidazole (Flagyl) 500 mg Q8 GTB Last administered on 08/20/16 12:48; Admin Dose 500 MG; Start 08/15/16 at 22:00 Acetaminophen 650 mg 650 mg Q6H PRN GTB PAIN AND OR ELEVATED TEMP Last administered on 08/20/16 08:44; Admin Dose 650 MG; Start 08/15/16 at 21:30 Colistimethate Sodium/Sodium Chloride (Coly-Mycin/NS) 100 ml @ 200 mls/hr Q12 IVPB Last administered on 08/20/16 08:51; Admin Dose 200 MLS/HR; Start at 21:00 Magnesium Oxide (Mag-Ox 400) 400 mg DAILY GTB Last administered on 08/20/16 08 :44; Admin Dose 400 MG; Start 08/20/16 at 09:00 Potassium Chloride (Potassium Chloride Pwd/Soln) 20 meq DAILY GTB Last administered on 08/20/16 08:43; Admin Dose 20 MEQ; Start 08/20/16 at 09:00 LESLIE FERRARO NP Aug 20, 2016 14:49
--- NOTE | 2016-08-20 18:08 | CONS ---
Date/Time of Note Date/Time of Note DATE: 08/20/16 TIME: 18:07 Assessment/Plan Assessment/Plan Additional Assessment/Plan Sepsis Acute decompensated systolic congestive heart failure Sinus tachycardia C2 fracture and quadriplegic Respiratory failure Cardiomyopathy with ejection fraction 50% via echo on previous admission Decubiti -Blood pressure trend overall stable, no new cardiac orders at the current time. Consultation Date/Type/Reason Admit Date/Time Jul 31, 2016 at 14:20 Type of Consultation: cv 24 HR Interval Summary Free Text/Dictation Denies shortness of breath, doing slightly better Exam/Review of Systems Vital Signs Vitals Vital Signs Date Time Temp Pulse Resp B/P Pulse Ox O2 Delivery O2 Flow Rate FiO2 08/20/16 17:20 110 24 97 60 08/20/16 15:32 98.9 96/51 Intake and Output 08/19/16 08/19/16 08/20/16 15:00 23:00 07:00 Intake Total 1460 ml 1520 ml Output Total 2500 ml 2000 ml Balance -1040 ml -480 ml Exam No apparent distress, brother at bedside Constitutional: alert, frail, oriented Neck: other (Tracheostomy) Respiratory: other (Coarse breath sounds bilaterally, no wheezing) Cardiovascular: other (S1-S2 heard), regular rate and rhythm Gastrointestinal: bowel sounds, non-tender, other (No guarding), soft Extremities: edema, other (No cyanosis) Results Result Diagram: 08/20/16 0641 08/20/16 0641 Results 24 hrs Laboratory Tests Test 08/19/16 21:58 08/20/16 05:30 08/20/16 06:41 08/20/16 06:42 Bedside Glucose 122 121 120 Anion Gap 12 Basophils # 0.1 Basophils % 0.3 Blood Urea Nitrogen 41 H Calcium Level 11.5 H Carbon Dioxide Level 28 Chloride Level 100 Creatinine 0.71 Eosinophils # 0.4 Eosinophils % 2.6 Glucose Level 110 Hematocrit 27.4 L Hemoglobin 8.4 L Lymphocytes # 0.7 L Lymphocytes % 4.0 L Magnesium Level 1.8 Mean Corpuscular Hemoglobin 26.4 L Mean Corpuscular Hemoglobin Concent 30.7 L Mean Corpuscular Volume 86.2 Mean Platelet Volume 9.9 Monocytes # 1.1 H Monocytes % 6.3 Neutrophils # 14.3 H Neutrophils % 85.5 H Nucleated Red Blood Cells # 0.0 Nucleated Red Blood Cells % 0.0 Phosphorus Level 3.0 Platelet Count 372 Potassium Level 3.9 Red Blood Count 3.18 L Red Cell Distribution Width 17.6 H Sodium Level 136 White Blood Count 16.7 H Test 08/20/16 12:48 Bedside Glucose 130 Medications Medications Current Medications Ondansetron HCl (Zofran Inj) 4 mg Q6H PRN IV NAUSEA AND/OR VOMITING Last administered on 08/15/16 05:11; Admin Dose 4 MG; Start 07/31/16 at 15:00 Morphine Sulfate (morphine) 2 mg Q4H PRN IV SEVERE PAIN LEVEL 7-10 Last administered on 08/20/16 00:32; Admin Dose 2 MG; Start 07/31/16 at 15:00 Magnesium Hydroxide (Milk Of Mag) 30 ml DAILY PRN PO CONSTIPATION; Start at 15:00 Sodium Biphosphate/ Sodium Phosphate (Fleet Enema) 133 ml DAILY PRN DE CONSTIPATION; Start 07/31/16 at 15:00 Hydralazine HCl (Apresoline) 10 mg Q6H PRN IV ELEVATED BLOOD PRESSURE; Start at 15:00 Nitroglycerin (Nitroglycerin (Sl Tab) 0.4 Mg) 1 tab Q5M PRN SL ANGINA; Start at 15:00 Miscellaneous Information 1 ea NOTE XX ; Start 07/31/16 at 16:30 Glucose (Glutose) 15 gm Q15M PRN PO DECREASED GLUCOSE; Start 07/31/16 at 16:30 Glucose (Glutose) 22.5 gm Q15M PRN PO DECREASED GLUCOSE; Start 07/31/16 at 16: 30 Dextrose (D50w Syringe) 25 ml Q15M PRN IV DECREASED GLUCOSE; Start 07/31/16 at 16:30 Dextrose (D50w Syringe) 50 ml Q15M PRN IV DECREASED GLUCOSE; Start 07/31/16 at 16:30 Glucagon (Glucagen) 1 mg Q15M PRN IM DECREASED GLUCOSE; Start 07/31/16 at 16:30 Glucose (Glutose) 15 gm Q15M PRN BUCCAL DECREASED GLUCOSE; Start 07/31/16 at 16 :30 Sodium Hypochlorite (Dakin'S (1/4 Strength)) 1 applic BID IRR Last administered on 08/20/16 08:51; Admin Dose 1 APPLIC; Start 08/01/16 at 21:00 Calcium Carbonate (Ca Carbonate) 1,250 mg BID GTB Last administered on 08:44; Admin Dose 1,250 MG; Start 08/01/16 at 22:30 Acetaminophen/ Hydrocodone Bitart ([place] (5/325)) 1 tab Q4H PRN PEG MODERATE PAIN LEVEL 4-6 Last administered on 08/19/16 21:53; Admin Dose 1 TAB; Start 08/02/16 at 00:00 Lorazepam (Ativan) 0.5 mg Q4H PRN IV ANXIETY Last administered on 08/20/16 17: 04; Admin Dose 0.5 MG; Start 08/02/16 at 00:00 Zolpidem Tartrate (Ambien) 10 mg HS PRN PEG INSOMNIA Last administered on 21:52; Admin Dose 10 MG; Start 08/02/16 at 03:30 Fluconazole (Diflucan) 100 mg DAILY PO Last administered on 08/20/16 08:45; Admin Dose 100 MG; Start 08/02/16 at 12:30 Ibuprofen (Motrin) 600 mg Q6H PRN PO PAIN OR TEMP ABOVE 38C Last administered on 08/11/16 21:29; Admin Dose 600 MG; Start 08/02/16 at 15:00 Zinc Sulfate (Zinc Sulfate) 220 mg DAILY GTB Last administered on 08/20/16 08: 46; Admin Dose 220 MG; Start 08/03/16 at 11:30 Multivitamins Therapeutic (Theragran) 1 tab DAILY PO Last administered on 08:45; Admin Dose 1 TAB; Start 08/03/16 at 11:30 Ascorbic Acid (Vitamin C) 500 mg BID GTB Last administered on 08/20/16 08:45; Admin Dose 500 MG; Start 08/03/16 at 11:30 Sodium Hypochlorite (Dakin'S (Dilute 1/40%)) 1 applic BID IRR Last administered on 08/20/16 08:51; Admin Dose 1 APPLIC; Start 08/04/16 at 12:00 Hydromorphone HCl 0.5 mg 0.5 mg Q8H PRN IV PAIN Last administered on 08/19/16 18:35; Admin Dose 0.5 MG; Start 08/04/16 at 12:00 Cefepime HCl (Maxipime 1gm/50 ml (Pmx)) 50 ml @ 100 mls/hr Q12 IVPB Last administered on 08/20/16 08:50; Admin Dose 100 MLS/HR; Start 08/08/16 at 16:00 Levothyroxine Sodium (Synthroid) 25 mcg DAILY@06 PO Last administered on 05:35; Admin Dose 25 MCG; Start 08/11/16 at 06:00 Docusate Sodium (Colace Liquid Cup) 100 mg Q12 GTB Last administered on 08:43; Admin Dose 100 MG; Start 08/11/16 at 10:30 Paroxetine HCl (Paxil) 10 mg DAILY PO Last administered on 08/20/16 08:46; Admin Dose 10 MG; Start 08/11/16 at 21:00 Insulin Aspart (Novolog Insulin Pen) NOVOLOG *MODERATE* ALGORI... Q6 SC Last administered on 08/18/16 12:33; Admin Dose 2 UNIT; Start 08/13/16 at 00:00 Famotidine (Pepcid) 20 mg Q12 GTB Last administered on 08/20/16 08:46; Admin Dose 20 MG; Start 08/13/16 at 09:00 Lactobacillus Acidoph/Bulgaricus (Floranex) 1 tab TID GTB Last administered on 08/20/16 12:48; Admin Dose 1 TAB; Start 08/15/16 at 21:30 Metformin HCl (Glucophage) 500 mg Q12 GTB Last administered on 08/20/16 08:43 ; Admin Dose 500 MG; Start 08/15/16 at 21:30 Linezolid (Zyvox) 600 mg BID GTB Last administered on 08/20/16 08:45; Admin Dose 600 MG; Start 08/15/16 at 21:30 Metronidazole (Flagyl) 500 mg Q8 GTB Last administered on 08/20/16 12:48; Admin Dose 500 MG; Start 08/15/16 at 22:00 Acetaminophen 650 mg 650 mg Q6H PRN GTB PAIN AND OR ELEVATED TEMP Last administered on 08/20/16 08:44; Admin Dose 650 MG; Start 08/15/16 at 21:30 Colistimethate Sodium/Sodium Chloride (Coly-Mycin/NS) 100 ml @ 200 mls/hr Q12 IVPB Last administered on 08/20/16 08:51; Admin Dose 200 MLS/HR; Start at 21:00 Magnesium Oxide (Mag-Ox 400) 400 mg DAILY GTB Last administered on 08/20/16 08 :44; Admin Dose 400 MG; Start 08/20/16 at 09:00 Potassium Chloride (Potassium Chloride Pwd/Soln) 20 meq DAILY GTB Last administered on 08/20/16 08:43; Admin Dose 20 MEQ; Start 08/20/16 at 09:00 Kb Barrett DO Aug 20, 2016 18:08
[2016-08-20] MEDS ORDERED: LORAZEPAM 2 MG INJ IV ONE (19:00)
--- NOTE | 2016-08-20 19:49 | PN ---
Date/Time of Note Date/Time of Note DATE: 08/20/16 TIME: 19:43 Assessment/Plan VTE Prophylaxis VTE Prophylaxis Intervention: LMWH Lines/Catheters IV [facility]from [facility] [place] Urinary Cath still in place: Yes Assessment/Plan Chief Complaint/Hosp Course A/P 1) Sepsis; HCAP likely; stable, cont atb 2) Recurrent fever/ hypotension; line infection? 3) Decubitus wound/ MDR organisms. Debridement if recommended by ID. 4) Quadraplegia; poor prognosis 5) Ho C2 fracture 6) VDRF; cont vent 7) Ho c diff 8) Chr CHF/ systolic? 9) Past tobacco 10) Malnutrition; cont peg/feeds. Problems: Subjective 24 Hr Interval Summary Free Text/Dictation S- tolerating feeds. no diarrhea. fever returned. bp now low. some anxiety. denies pain. Exam/Review of Systems Vital Signs Vitals Vital Signs Date Time Temp Pulse Resp B/P Pulse Ox O2 Delivery O2 Flow Rate FiO2 08/20/16 17:20 110 24 97 60 08/20/16 15:32 98.9 96/51 Intake and Output 08/19/16 08/19/16 08/20/16 15:00 23:00 07:00 Intake Total 1460 ml 1520 ml Output Total 2500 ml 2000 ml Balance -1040 ml -480 ml Exam Constitutional: alert Neck: other (trach c/d/i) Respiratory: clear to auscultation Cardiovascular: regular rate and rhythm Gastrointestinal: non-tender (nd; no r/r/g), other (peg c/d/i), soft Extremities: other (no edema; + hypotonia.) Results Result Diagram: 08/20/16 0641 08/20/16 0641 Results 24 hrs Laboratory Tests Test 08/19/16 21:58 08/20/16 05:30 08/20/16 06:41 08/20/16 06:42 Bedside Glucose 122 121 120 Anion Gap 12 Basophils # 0.1 Basophils % 0.3 Blood Urea Nitrogen 41 H Calcium Level 11.5 H Carbon Dioxide Level 28 Chloride Level 100 Creatinine 0.71 Eosinophils # 0.4 Eosinophils % 2.6 Glucose Level 110 Hematocrit 27.4 L Hemoglobin 8.4 L Lymphocytes # 0.7 L Lymphocytes % 4.0 L Magnesium Level 1.8 Mean Corpuscular Hemoglobin 26.4 L Mean Corpuscular Hemoglobin Concent 30.7 L Mean Corpuscular Volume 86.2 Mean Platelet Volume 9.9 Monocytes # 1.1 H Monocytes % 6.3 Neutrophils # 14.3 H Neutrophils % 85.5 H Nucleated Red Blood Cells # 0.0 Nucleated Red Blood Cells % 0.0 Phosphorus Level 3.0 Platelet Count 372 Potassium Level 3.9 Red Blood Count 3.18 L Red Cell Distribution Width 17.6 H Sodium Level 136 White Blood Count 16.7 H Test 08/20/16 12:48 08/20/16 18:14 Bedside Glucose 130 126 Medications Medications Current Medications Ondansetron HCl (Zofran Inj) 4 mg Q6H PRN IV NAUSEA AND/OR VOMITING Last administered on 08/15/16 05:11; Admin Dose 4 MG; Start 07/31/16 at 15:00 Morphine Sulfate (morphine) 2 mg Q4H PRN IV SEVERE PAIN LEVEL 7-10 Last administered on 08/20/16 00:32; Admin Dose 2 MG; Start 07/31/16 at 15:00 Magnesium Hydroxide (Milk Of Mag) 30 ml DAILY PRN PO CONSTIPATION; Start at 15:00 Sodium Biphosphate/ Sodium Phosphate (Fleet Enema) 133 ml DAILY PRN ID CONSTIPATION; Start 07/31/16 at 15:00 Hydralazine HCl (Apresoline) 10 mg Q6H PRN IV ELEVATED BLOOD PRESSURE; Start at 15:00 Nitroglycerin (Nitroglycerin (Sl Tab) 0.4 Mg) 1 tab Q5M PRN SL ANGINA; Start at 15:00 Miscellaneous Information 1 ea NOTE XX ; Start 07/31/16 at 16:30 Glucose (Glutose) 15 gm Q15M PRN PO DECREASED GLUCOSE; Start 07/31/16 at 16:30 Glucose (Glutose) 22.5 gm Q15M PRN PO DECREASED GLUCOSE; Start 07/31/16 at 16: 30 Dextrose (D50w Syringe) 25 ml Q15M PRN IV DECREASED GLUCOSE; Start 07/31/16 at 16:30 Dextrose (D50w Syringe) 50 ml Q15M PRN IV DECREASED GLUCOSE; Start 07/31/16 at 16:30 Glucagon (Glucagen) 1 mg Q15M PRN IM DECREASED GLUCOSE; Start 07/31/16 at 16:30 Glucose (Glutose) 15 gm Q15M PRN BUCCAL DECREASED GLUCOSE; Start 07/31/16 at 16 :30 Sodium Hypochlorite (Dakin'S (1/4 Strength)) 1 applic BID IRR Last administered on 08/20/16 08:51; Admin Dose 1 APPLIC; Start 08/01/16 at 21:00 Calcium Carbonate (Ca Carbonate) 1,250 mg BID GTB Last administered on 08:44; Admin Dose 1,250 MG; Start 08/01/16 at 22:30 Acetaminophen/ Hydrocodone Bitart ([place] (5/325)) 1 tab Q4H PRN PEG MODERATE PAIN LEVEL 4-6 Last administered on 08/19/16 21:53; Admin Dose 1 TAB; Start 08/02/16 at 00:00 Lorazepam (Ativan) 0.5 mg Q4H PRN IV ANXIETY Last administered on 08/20/16 17: 04; Admin Dose 0.5 MG; Start 08/02/16 at 00:00 Zolpidem Tartrate (Ambien) 10 mg HS PRN PEG INSOMNIA Last administered on 21:52; Admin Dose 10 MG; Start 08/02/16 at 03:30 Fluconazole (Diflucan) 100 mg DAILY PO Last administered on 08/20/16 08:45; Admin Dose 100 MG; Start 08/02/16 at 12:30 Ibuprofen (Motrin) 600 mg Q6H PRN PO PAIN OR TEMP ABOVE 38C Last administered on 08/11/16 21:29; Admin Dose 600 MG; Start 08/02/16 at 15:00 Zinc Sulfate (Zinc Sulfate) 220 mg DAILY GTB Last administered on 08/20/16 08: 46; Admin Dose 220 MG; Start 08/03/16 at 11:30 Multivitamins Therapeutic (Theragran) 1 tab DAILY PO Last administered on 08:45; Admin Dose 1 TAB; Start 08/03/16 at 11:30 Ascorbic Acid (Vitamin C) 500 mg BID GTB Last administered on 08/20/16 08:45; Admin Dose 500 MG; Start 08/03/16 at 11:30 Sodium Hypochlorite (Dakin'S (Dilute 1/40%)) 1 applic BID IRR Last administered on 08/20/16 08:51; Admin Dose 1 APPLIC; Start 08/04/16 at 12:00 Hydromorphone HCl 0.5 mg 0.5 mg Q8H PRN IV PAIN Last administered on 08/19/16 18:35; Admin Dose 0.5 MG; Start 08/04/16 at 12:00 Cefepime HCl (Maxipime 1gm/50 ml (Pmx)) 50 ml @ 100 mls/hr Q12 IVPB Last administered on 08/20/16 08:50; Admin Dose 100 MLS/HR; Start 08/08/16 at 16:00 Levothyroxine Sodium (Synthroid) 25 mcg DAILY@06 PO Last administered on 05:35; Admin Dose 25 MCG; Start 08/11/16 at 06:00 Docusate Sodium (Colace Liquid Cup) 100 mg Q12 GTB Last administered on 08:43; Admin Dose 100 MG; Start 08/11/16 at 10:30 Paroxetine HCl (Paxil) 10 mg DAILY PO Last administered on 08/20/16 08:46; Admin Dose 10 MG; Start 08/11/16 at 21:00 Insulin Aspart (Novolog Insulin Pen) NOVOLOG *MODERATE* ALGORI... Q6 SC Last administered on 08/18/16 12:33; Admin Dose 2 UNIT; Start 08/13/16 at 00:00 Famotidine (Pepcid) 20 mg Q12 GTB Last administered on 08/20/16 08:46; Admin Dose 20 MG; Start 08/13/16 at 09:00 Lactobacillus Acidoph/Bulgaricus (Floranex) 1 tab TID GTB Last administered on 08/20/16 12:48; Admin Dose 1 TAB; Start 08/15/16 at 21:30 Metformin HCl (Glucophage) 500 mg Q12 GTB Last administered on 08/20/16 08:43 ; Admin Dose 500 MG; Start 08/15/16 at 21:30 Linezolid (Zyvox) 600 mg BID GTB Last administered on 08/20/16 08:45; Admin Dose 600 MG; Start 08/15/16 at 21:30 Metronidazole (Flagyl) 500 mg Q8 GTB Last administered on 08/20/16 12:48; Admin Dose 500 MG; Start 08/15/16 at 22:00 Acetaminophen 650 mg 650 mg Q6H PRN GTB PAIN AND OR ELEVATED TEMP Last administered on 08/20/16 08:44; Admin Dose 650 MG; Start 08/15/16 at 21:30 Colistimethate Sodium/Sodium Chloride (Coly-Mycin/NS) 100 ml @ 200 mls/hr Q12 IVPB Last administered on 08/20/16 08:51; Admin Dose 200 MLS/HR; Start at 21:00 Magnesium Oxide (Mag-Ox 400) 400 mg DAILY GTB Last administered on 08/20/16 08 :44; Admin Dose 400 MG; Start 08/20/16 at 09:00 Potassium Chloride (Potassium Chloride Pwd/Soln) 20 meq DAILY GTB Last administered on 08/20/16 08:43; Admin Dose 20 MEQ; Start 08/20/16 at 09:00 MARY BETH HOUSTON MD Aug 20, 2016 19:48
[2016-08-20] MEDS ORDERED: SOD CHLORIDE 0.9% 1,000 ML IV ONE (20:00)
--- NOTE | 2016-08-20 21:55 | RADRPT ---
PROCEDURE: Ultrasound of the bilateral lower extremity venous system. CLINICAL INDICATION: Bilateral leg pain and swelling, deep venous thrombosis TECHNIQUE: Carter scale with and without compression, color doppler, spectral doppler of the venous system of the bilateral lower extremities was performed. Venous augmentation maneuvers were utilized . COMPARISON: 08/12/2016 FINDINGS: RIGHT: Common femoral vein: Patent. Femoral vein: Patent. Popliteal vein: Patent. Calf veins: Patent. No soft tissue abnormalities are identified. LEFT: Common femoral vein: Patent. Femoral vein: Patent. Popliteal vein: Patent. Calf veins: Poorly visualized No soft tissue abnormalities are identified. IMPRESSION: No evidence of a deep vein thrombosis within the bilateral lower extremities. RPTAT: AADD .José Antonio Dong MD, MD Date Time Electronically viewed and signed by .José Antonio Dong MD, on 08/20/2016 21:54 .B/
[2016-08-20] MEDS: ENOXAPARIN 100 MG/ML SYG SC SCH (22:42)
[2016-08-21] VITALS (25 sets, daily range): BP systolic 95–115; BP diastolic 51–59; PULSE 110–130; RESP 18–24
[2016-08-21] MEDS: LORAZEPAM 2 MG INJ IV PRN ×3 (01:51→22:53)
[2016-08-21] MEDS: ZOLPIDEM 5 MG TAB PEG PRN ×2 (01:56→22:53)
[2016-08-21] MEDS: ACETAMINOPHEN 325 MG TAB GTB PRN ×2 (04:56→21:39)
[2016-08-21] MEDS: LEVOTHYROXINE 25 MCG TAB PO SCH (05:33)
[2016-08-21] MEDS: metroNIDAZOLE 500 MG TAB GTB SCH ×3 (05:34→21:18)
[2016-08-21] MEDS: INSULIN ASPART [NOVOLOG] 3 ML PEN SC SCH ×4 (05:39→18:00)
[2016-08-21 06:38] LABS: ADD SCAN DIFF NO
[2016-08-21 06:56] LABS: BASOPHIL # 0.1 10^3/ul (0.0-0.1); BASOPHILS % 0.3 % (0.0-2.0); EOSINOPHILS # 0.4 10^3/ul (0.0-0.5); EOSINOPHILS % 2.8 % (0.0-7.0); HEMOGLOBIN 7.9 g/dl (14.0-18.0); LYMPHOCYTES # 0.9 10^3/ul (0.8-2.9); LYMPHOCYTES % 5.6 % (15.0-51.0); MEAN CORPUSCULAR HEMOGLOBIN 26.4 pg (29.0-33.0); MEAN CORPUSCULAR HGB CONC 30.4 g/dl (32.0-37.0); MONOCYTE # 1.1 10^3/ul (0.3-0.9); MONOCYTES % 7.5 % (0.0-11.0); NEUTROPHIL # 12.4 10^3/ul (1.6-7.5); PLATELET COUNT 388 10^3/UL (140-415); RED BLOOD COUNT 2.99 10^6/ul (4.70-6.10); RED CELL DISTRIBUTION WIDTH 17.8 % (11.5-14.5); WHITE BLOOD COUNT 15.2 10^3/ul (4.8-10.8)
[2016-08-21 07:12] LABS: ALBUMIN 2.4 g/dl (3.3-4.9); CHLORIDE 100 mmol/L (97-110); POTASSIUM 3.8 mmol/L (3.5-5.1); SODIUM 137 mmol/L (135-144)
[2016-08-21 07:14] LABS: ANION GAP 12 (8-16); CARBON DIOXIDE 29 mmol/L (21-31); CREATININE 0.78 mg/dl (0.61-1.24)
[2016-08-21 07:15] LABS: ALANINE AMINOTRANSFERASE 18 IU/L (13-69); ALBUMIN/GLOBULIN RATIO 0.68; ALKALINE PHOSPHATASE 132 IU/L (42-121); ASPARTATE AMINO TRANSFERASE 22 IU/L (15-46); BLOOD UREA NITROGEN 44 mg/dl (7-20); CALCIUM 11.9 mg/dl (8.4-10.2); GLUCOSE 98 mg/dl (70-220); MAGNESIUM 1.7 mg/dl (1.7-2.5); PHOSPHORUS 3.2 mg/dl (2.5-4.9); TOTAL PROTEIN 5.9 g/dl (6.1-8.1)
[2016-08-21] MEDS: ALBUTEROL 0.083% (NEB) 2.5 MG/3 ML AMP HHN SCH ×2 (07:41→15:05)
[2016-08-21 08:01] LABS: TROPONIN-I < 0.012 ng/ml (0.00-0.12)
[2016-08-21 08:12] LABS: AADO2 Arterial 145.1 mmHg (7.0-24.0); Allen Test ACCEPTAB; Arterial Base Excess 2.3 mmol/L (-3.0-3); Arterial COHb 0.5 % (0.0-3.0); Arterial Fraction of Oxyhgb 98.4 % (93.0-99.0); Arterial HCO3 27.5 mmol/L (22.0-26.0); Arterial MetHb 0.6 % (0.0-1.5); Arterial Total Hemglobin 7.4 g/dl (12.0-18.0); MODE VENT - AC
--- NOTE | 2016-08-21 08:46 | RADRPT ---
PROCEDURE: XR Chest AP portable CLINICAL INDICATION: Pneumonia TECHNIQUE: An AP portable radiograph of the chest was submitted. COMPARISON: 08/16/2016 FINDINGS: Support Hardware: The tracheostomy tube and the left Port-A-Cath are stable positioning. Cardiovascular: The cardiovascular silhouette appears unremarkable. Lung Arthur: The bilateral pulmonary infiltrates have become more diffuse. Pleural Spaces: The costophrenic angles are obscured raising the suspicion of small bilateral pleura l fluid accumulations. Osseous Structures: A dextroscoliotic curve to the thoracic spine is again evident. Soft Tissues: The soft tissues appear unremarkable. IMPRESSION: 1. The tracheostomy tube in the left Port-A-Cath are stable in positioning. 2. The cardiovascular silhouette appear stable unremarkable. 3. Worsening more diffuse bilateral alveolar infiltrates with suspicion of development of small ple ural fluid accumulations. Physician Kerri Date Time Electronically viewed and signed by Physician Kerri on 08/21/2016 08:46 /
[2016-08-21] MEDS: SODIUM HYPOCHLORITE 1/40% 1L IRRIG IRR SCH ×2 (09:00→21:24)
[2016-08-21] MEDS: SODIUM HYPOCHLORITE 0.125% 473 ML BTL IRR SCH ×2 (09:00→21:23)
--- NOTE | 2016-08-21 11:02 | CONS ---
Date/Time of Note Date/Time of Note DATE: 08/21/16 TIME: 10:59 Assessment/Plan Assessment/Plan Additional Assessment/Plan Ventilator settings; AC of 24, tidal volume of 550 PEEP of 560% FiO2. Next Chest x-ray was reviewed from to be showing improvement in bilateral basilar pneumonia next Assessment recommendations; 1. Patient admitted for severe bilateral pneumonia with significant clinical improvement in terms of improving leukocytosis, ABG as well as chest x-ray. 2. 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 3. Severe sacral and upper thigh decubitus ulcers. 3. Hypertension. 4. Systolic dysfunction. Continue current treatment. Wean down FiO2 to 40% Consultation Date/Type/Reason Admit Date/Time Jul 31, 2016 at 14:20 Initial Consult Date 08/02/16 Type of Consultation: Pulmonary 24 HR Interval Summary Free Text/Dictation Patient condition is stable. Patient remained hemodynamically stable. He is awake alert. Still requiring full ventilator support. General exam; young male, on ventilator via tracheostomy currently in no distress. Exam/Review of Systems Vital Signs Vitals Vital Signs Date Time Temp Pulse Resp B/P Pulse Ox O2 Delivery O2 Flow Rate FiO2 08/21/16 09:05 107 24 100 60 08/21/16 07:43 99.9 115/59 08/21/16 00:30 Mechanical Ventilator Intake and Output 08/20/16 08/20/16 08/21/16 15:00 23:00 07:00 Intake Total 2350 ml 980 ml Output Total 1200 ml 1500 ml Balance 1150 ml -520 ml Exam H EENT exam; patient's neck is in a soft C-spine collar. Tracheostomy in place with clean insertion site. Pharynx is clear. Pupils are midsize reactive to light. Chest examination; crackles in lower lungs bilaterally upper lobes are clear S1- S2 audible no murmurs regular rhythm. Abdomen examination; soft, G-tube in place. No organomegaly. Bowel sounds audible. Extremity exam is; no peripheral edema. Back examination reveals dressing applied over sacral area as well as posterior upper thighs. TESTER WASTE DISPOSAL LEAKAGE exam; patient stable quadriplegia. Results Result Diagram: 08/21/16 0608 08/21/16 0608 Results 24 hrs Laboratory Tests Test 08/20/16 12:48 08/20/16 18:14 08/20/16 23:58 08/21/16 05:45 Bedside Glucose 130 126 100 120 Test 08/21/16 06:08 08/21/16 07:00 Alanine Aminotransferase (ALT/SGPT) 18 Albumin 2.4 L Albumin/Globulin Ratio 0.68 Alkaline Phosphatase 132 H Anion Gap 12 Aspartate Amino Transf (AST/SGOT) 22 Basophils # 0.1 Basophils % 0.3 Blood Urea Nitrogen 44 H Calcium Level 11.9 H Carbon Dioxide Level 29 Chloride Level 100 Creatinine 0.78 Direct Bilirubin 0.00 Eosinophils # 0.4 Eosinophils % 2.8 Globulin 3.50 H Glucose Level 98 Hematocrit 26.0 L Hemoglobin 7.9 L Indirect Bilirubin 0.0 Lymphocytes # 0.9 Lymphocytes % 5.6 L Magnesium Level 1.7 Mean Corpuscular Hemoglobin 26.4 L Mean Corpuscular Hemoglobin Concent 30.4 L Mean Corpuscular Volume 87.0 Mean Platelet Volume 10.0 Monocytes # 1.1 H Monocytes % 7.5 Neutrophils # 12.4 H Neutrophils % 82.0 H Nucleated Red Blood Cells # 0.0 Nucleated Red Blood Cells % 0.0 Phosphorus Level 3.2 Platelet Count 388 Potassium Level 3.8 Random Cortisol 8.8 Red Blood Count 2.99 L Red Cell Distribution Width 17.8 H Sodium Level 137 Total Bilirubin 0.0 L Total Protein 5.9 L Troponin I < 0.012 White Blood Count 15.2 H Arterial Blood HCO3 27.5 H Arterial Blood Base Excess 2.3 Arterial Blood Oxygen Saturation 99.5 H Colton Test ACCEPTAB Arterial Blood Gas Puncture Site Right Radial Arterial Blood Carboxyhemoglobin 0.5 Arterial Blood Date Drawn 08/21/2016 7:50:04 AM Arterial Blood Methemoglobin 0.6 Arterial Blood pCO2 (Temp correct) 46.4 H Arterial Blood pH (Temp corrected) 7.391 Arterial Blood pO2 (Temp corrected) 231.7 H Blood Gas A-a O2 Differential 145.1 H Blood Gas Actual Respiration Rate 24 Blood Gas Low PEEP Setting 5.0 Blood Gas Modality VENT - AC Blood Gas Notified Time 08/21/2016 8:12:03 AM Blood Gas Notified Whom JLD Blood Gas Respiration Rate 24.0 Blood Gas Specimen Source Blood arterial Blood Gas Temperature 37.0 Blood Gas Tidal Volume 500.0 FiO2 60.0 Oxyhemoglobin Percent 98.4 Total Hemoglobin 7.4 L Medications Medications Current Medications Ondansetron HCl (Zofran Inj) 4 mg Q6H PRN IV NAUSEA AND/OR VOMITING Last administered on 08/15/16 05:11; Admin Dose 4 MG; Start 07/31/16 at 15:00 Morphine Sulfate (morphine) 2 mg Q4H PRN IV SEVERE PAIN LEVEL 7-10 Last administered on 08/20/16 00:32; Admin Dose 2 MG; Start 07/31/16 at 15:00 Magnesium Hydroxide (Milk Of Mag) 30 ml DAILY PRN PO CONSTIPATION; Start at 15:00 Sodium Biphosphate/ Sodium Phosphate (Fleet Enema) 133 ml DAILY PRN [place] CONSTIPATION; Start 07/31/16 at 15:00 Hydralazine HCl (Apresoline) 10 mg Q6H PRN IV ELEVATED BLOOD PRESSURE; Start at 15:00 Nitroglycerin (Nitroglycerin (Sl Tab) 0.4 Mg) 1 tab Q5M PRN SL ANGINA; Start at 15:00 Miscellaneous Information 1 ea NOTE XX ; Start 07/31/16 at 16:30 Glucose (Glutose) 15 gm Q15M PRN PO DECREASED GLUCOSE; Start 07/31/16 at 16:30 Glucose (Glutose) 22.5 gm Q15M PRN PO DECREASED GLUCOSE; Start 07/31/16 at 16: 30 Dextrose (D50w Syringe) 25 ml Q15M PRN IV DECREASED GLUCOSE; Start 07/31/16 at 16:30 Dextrose (D50w Syringe) 50 ml Q15M PRN IV DECREASED GLUCOSE; Start 07/31/16 at 16:30 Glucagon (Glucagen) 1 mg Q15M PRN IM DECREASED GLUCOSE; Start 07/31/16 at 16:30 Glucose (Glutose) 15 gm Q15M PRN BUCCAL DECREASED GLUCOSE; Start 07/31/16 at 16 :30 Sodium Hypochlorite (Dakin'S (1/4 Strength)) 1 applic BID IRR Last administered on 08/20/16 22:11; Admin Dose 1 APPLIC; Start 08/01/16 at 21:00 Calcium Carbonate (Ca Carbonate) 1,250 mg BID GTB Last administered on 22:09; Admin Dose 1,250 MG; Start 08/01/16 at 22:30 Acetaminophen/ Hydrocodone Bitart ([place] (5/325)) 1 tab Q4H PRN PEG MODERATE PAIN LEVEL 4-6 Last administered on 08/19/16 21:53; Admin Dose 1 TAB; Start 08/02/16 at 00:00 Lorazepam (Ativan) 0.5 mg Q4H PRN IV ANXIETY Last administered on 08/21/16 01: 51; Admin Dose 0.5 MG; Start 08/02/16 at 00:00 Zolpidem Tartrate (Ambien) 10 mg HS PRN PEG INSOMNIA Last administered on 01:56; Admin Dose 10 MG; Start 08/02/16 at 03:30 Fluconazole (Diflucan) 100 mg DAILY PO Last administered on 08/20/16 08:45; Admin Dose 100 MG; Start 08/02/16 at 12:30 Ibuprofen (Motrin) 600 mg Q6H PRN PO PAIN OR TEMP ABOVE 38C Last administered on 08/11/16 21:29; Admin Dose 600 MG; Start 08/02/16 at 15:00 Zinc Sulfate (Zinc Sulfate) 220 mg DAILY GTB Last administered on 08/20/16 08: 46; Admin Dose 220 MG; Start 08/03/16 at 11:30 Multivitamins Therapeutic (Theragran) 1 tab DAILY PO Last administered on 08:45; Admin Dose 1 TAB; Start 08/03/16 at 11:30 Ascorbic Acid (Vitamin C) 500 mg BID GTB Last administered on 08/20/16 22:11; Admin Dose 500 MG; Start 08/03/16 at 11:30 Sodium Hypochlorite (Dakin'S (Dilute 1/40%)) 1 applic BID IRR Last administered on 08/20/16 21:00; Admin Dose 1 APPLIC; Start 08/04/16 at 12:00 Hydromorphone HCl 0.5 mg 0.5 mg Q8H PRN IV PAIN Last administered on 08/19/16 18:35; Admin Dose 0.5 MG; Start 08/04/16 at 12:00 Cefepime HCl (Maxipime 1gm/50 ml (Pmx)) 50 ml @ 100 mls/hr Q12 IVPB Last administered on 08/20/16 21:12; Admin Dose 100 MLS/HR; Start 08/08/16 at 16:00 Levothyroxine Sodium (Synthroid) 25 mcg DAILY@06 PO Last administered on 05:33; Admin Dose 25 MCG; Start 08/11/16 at 06:00 Docusate Sodium (Colace Liquid Cup) 100 mg Q12 GTB Last administered on 22:09; Admin Dose 100 MG; Start 08/11/16 at 10:30 Paroxetine HCl (Paxil) 10 mg DAILY PO Last administered on 08/20/16 08:46; Admin Dose 10 MG; Start 08/11/16 at 21:00 Insulin Aspart (Novolog Insulin Pen) NOVOLOG *MODERATE* ALGORI... Q6 SC Last administered on 08/18/16 12:33; Admin Dose 2 UNIT; Start 08/13/16 at 00:00 Famotidine (Pepcid) 20 mg Q12 GTB Last administered on 08/20/16 22:10; Admin Dose 20 MG; Start 08/13/16 at 09:00 Lactobacillus Acidoph/Bulgaricus (Floranex) 1 tab TID GTB Last administered on 08/20/16 22:09; Admin Dose 1 TAB; Start 08/15/16 at 21:30 Metformin HCl (Glucophage) 500 mg Q12 GTB Last administered on 08/20/16 22:10 ; Admin Dose 500 MG; Start 08/15/16 at 21:30 Linezolid (Zyvox) 600 mg BID GTB Last administered on 08/20/16 08:45; Admin Dose 600 MG; Start 08/15/16 at 21:30 Metronidazole (Flagyl) 500 mg Q8 GTB Last administered on 08/21/16 05:34; Admin Dose 500 MG; Start 08/15/16 at 22:00 Acetaminophen 650 mg 650 mg Q6H PRN GTB PAIN AND OR ELEVATED TEMP Last administered on 08/21/16 04:56; Admin Dose 650 MG; Start 08/15/16 at 21:30 Colistimethate Sodium/Sodium Chloride (Coly-Mycin/NS) 100 ml @ 200 mls/hr Q12 IVPB Last administered on 08/20/16 21:13; Admin Dose 200 MLS/HR; Start at 21:00 Magnesium Oxide (Mag-Ox 400) 400 mg DAILY GTB Last administered on 08/20/16 08 :44; Admin Dose 400 MG; Start 08/20/16 at 09:00 Potassium Chloride (Potassium Chloride Pwd/Soln) 20 meq DAILY GTB Last administered on 08/20/16 08:43; Admin Dose 20 MEQ; Start 08/20/16 at 09:00 Enoxaparin Sodium (Lovenox) 85 mg Q12 SC Last administered on 08/20/16 22:42; Admin Dose 85 MG; Start 08/20/16 at 21:00 ALISSON ARRIOLA Aug 21, 2016 11:02
[2016-08-21] MEDS: POTASSIUM CHLORIDE 20 MEQ POWDER FOR ORAL SOLN GTB SCH (11:32)
[2016-08-21] MEDS: CA CARBONATE (250 MG/ML) 5ML CUP GTB SCH (11:32)
[2016-08-21] MEDS: metFORMIN 500 MG TAB GTB SCH ×2 (11:33→21:18)
[2016-08-21] MEDS: ZINC SULFATE 220 MG CAP GTB SCH (11:33)
[2016-08-21] MEDS: MULTIVITAMINS THERAPEUTIC TAB PO SCH (11:33)
[2016-08-21] MEDS: FLUCONAZOLE 100 MG TAB PO SCH (11:33)
[2016-08-21] MEDS: LACTOBACILLUS CHEW TAB GTB SCH ×3 (11:33→21:18)
[2016-08-21] MEDS: ASCORBIC ACID 500 MG TAB GTB SCH ×2 (11:33→21:23)
[2016-08-21] MEDS: FAMOTIDINE 20 MG TAB GTB SCH (11:34)
[2016-08-21] MEDS: ZYVOX 600 MG TAB GTB SCH ×2 (11:34→21:18)
[2016-08-21] MEDS: MAGNESIUM OXIDE 400 MG TAB GTB SCH (11:34)
[2016-08-21] MEDS: PAROXETINE 10 MG TAB PO SCH (11:34)
[2016-08-21] MEDS: COLISTIMETHATE 150 MG in SOD CHLORIDE 0.9% 100 ML IVPB SCH ×2 (11:36→21:13)
[2016-08-21] MEDS: CEFEPIME 1GM/50 ML (PMX) 50 ML IVPB SCH ×2 (11:36→21:19)
[2016-08-21] MEDS: DOCUSATE SODIUM 10 MG/ML (10ML CUP) GTB SCH (11:37)
[2016-08-21] MEDS: ENOXAPARIN 100 MG/ML SYG SC SCH (11:48)
--- NOTE | 2016-08-21 15:04 | CONS ---
Date/Time of Note Date/Time of Note DATE: 08/21/16 TIME: 15:03 Assessment/Plan Assessment/Plan Chief Complaint/Hosp Course SUBJECTIVE: No acute events, spiked fever, looks comfortable MICROBIOLOGY: Urine culture grew [place] albicans Pseudomonas aeruginosa. Wound culture growing multi-drug resistant Klebsiella pneumoniae and gram- negative rods and Enterococcus species. INDWELLINGS: Trach, PEG, Oliveira, left chest Port-A-Cath. ANTIMICROBIALS: 1. Colistin. 2. Zyvox. 3. Fluconazole. 4. Flagyl 5. Cefepime PHYSICAL EXAMINATION: GENERAL: Chronically ill-appearing, well-developed, middle-aged man who is lying comfortably in bed. HEENT: Head atraumatic, normocephalic. Sclerae anicteric. Buccal mucosa dry. CHEST: Rise symmetrical. Breath sounds diminished to bases. HEART: S1, S2. ABDOMEN: Soft, bowel tones present. EXTREMITIES: With trace edema. Left upper extremity more edematous. ASSESSMENT: 1. Sepsis with ongoing fevers. 2. Multiple decubitus with wound culture growing multi-drug resistant organisms. 3. Healthcare-associated pneumonia. 4. Multidrug resistant urinary tract infection. 5. History of Clostridium difficile colitis. 6. 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 7. Left chest Port-A-Cath. PLAN: Clinically unchanged. Continue abx, repeat cx's, f/u pulmonary rec-s ? needs bronch DW staff Problems: Consultation Date/Type/Reason Admit Date/Time Jul 31, 2016 at 14:20 Initial Consult Date 08/02/16 Type of Consultation: id Exam/Review of Systems Vital Signs Vitals Vital Signs Date Time Temp Pulse Resp B/P Pulse Ox O2 Delivery O2 Flow Rate FiO2 08/21/16 13:20 108 24 96 40 08/21/16 11:22 99.0 96/51 08/21/16 00:30 Mechanical Ventilator Intake and Output 08/20/16 08/20/16 08/21/16 15:00 23:00 07:00 Intake Total 2350 ml 980 ml Output Total 1200 ml 1500 ml Balance 1150 ml -520 ml Results Result Diagram: 08/21/16 0608 08/21/16 0608 Results 24 hrs Laboratory Tests Test 08/20/16 18:14 08/20/16 23:58 08/21/16 05:45 08/21/16 06:08 Bedside Glucose 126 100 120 Alanine Aminotransferase (ALT/SGPT) 18 Albumin 2.4 L Albumin/Globulin Ratio 0.68 Alkaline Phosphatase 132 H Anion Gap 12 Aspartate Amino Transf (AST/SGOT) 22 Basophils # 0.1 Basophils % 0.3 Blood Urea Nitrogen 44 H Calcium Level 11.9 H Carbon Dioxide Level 29 Chloride Level 100 Creatinine 0.78 Direct Bilirubin 0.00 Eosinophils # 0.4 Eosinophils % 2.8 Globulin 3.50 H Glucose Level 98 Hematocrit 26.0 L Hemoglobin 7.9 L Indirect Bilirubin 0.0 Lymphocytes # 0.9 Lymphocytes % 5.6 L Magnesium Level 1.7 Mean Corpuscular Hemoglobin 26.4 L Mean Corpuscular Hemoglobin Concent 30.4 L Mean Corpuscular Volume 87.0 Mean Platelet Volume 10.0 Monocytes # 1.1 H Monocytes % 7.5 Neutrophils # 12.4 H Neutrophils % 82.0 H Nucleated Red Blood Cells # 0.0 Nucleated Red Blood Cells % 0.0 Phosphorus Level 3.2 Platelet Count 388 Potassium Level 3.8 Random Cortisol 8.8 Red Blood Count 2.99 L Red Cell Distribution Width 17.8 H Sodium Level 137 Total Bilirubin 0.0 L Total Protein 5.9 L Troponin I < 0.012 White Blood Count 15.2 H Test 08/21/16 07:00 08/21/16 12:03 Arterial Blood HCO3 27.5 H Arterial Blood Base Excess 2.3 Arterial Blood Oxygen Saturation 99.5 H Col[place] Test ACCEPTAB Arterial Blood Gas Puncture Site Right Radial Arterial Blood Carboxyhemoglobin 0.5 Arterial Blood Date Drawn 08/21/2016 7:50:04 AM Arterial Blood Methemoglobin 0.6 Arterial Blood pCO2 (Temp correct) 46.4 H Arterial Blood pH (Temp corrected) 7.391 Arterial Blood pO2 (Temp corrected) 231.7 H Blood Gas A-a O2 Differential 145.1 H Blood Gas Actual Respiration Rate 24 Blood Gas Low PEEP Setting 5.0 Blood Gas Modality VENT - AC Blood Gas Notified Time 08/21/2016 8:12:03 AM Blood Gas Notified Whom JLD Blood Gas Respiration Rate 24.0 Blood Gas Specimen Source Blood arterial Blood Gas Temperature 37.0 Blood Gas Tidal Volume 500.0 FiO2 60.0 Oxyhemoglobin Percent 98.4 Total Hemoglobin 7.4 L Bedside Glucose 132 Medications Medications Current Medications Ondansetron HCl (Zofran Inj) 4 mg Q6H PRN IV NAUSEA AND/OR VOMITING Last administered on 08/15/16 05:11; Admin Dose 4 MG; Start 07/31/16 at 15:00 Morphine Sulfate (morphine) 2 mg Q4H PRN IV SEVERE PAIN LEVEL 7-10 Last administered on 08/20/16 00:32; Admin Dose 2 MG; Start 07/31/16 at 15:00 Magnesium Hydroxide (Milk Of Mag) 30 ml DAILY PRN PO CONSTIPATION; Start at 15:00 Sodium Biphosphate/ Sodium Phosphate (Fleet Enema) 133 ml DAILY PRN [place] CONSTIPATION; Start 07/31/16 at 15:00 Hydralazine HCl (Apresoline) 10 mg Q6H PRN IV ELEVATED BLOOD PRESSURE; Start at 15:00 Nitroglycerin (Nitroglycerin (Sl Tab) 0.4 Mg) 1 tab Q5M PRN SL ANGINA; Start at 15:00 Miscellaneous Information 1 ea NOTE XX ; Start 07/31/16 at 16:30 Glucose (Glutose) 15 gm Q15M PRN PO DECREASED GLUCOSE; Start 07/31/16 at 16:30 Glucose (Glutose) 22.5 gm Q15M PRN PO DECREASED GLUCOSE; Start 07/31/16 at 16: 30 Dextrose (D50w Syringe) 25 ml Q15M PRN IV DECREASED GLUCOSE; Start 07/31/16 at 16:30 Dextrose (D50w Syringe) 50 ml Q15M PRN IV DECREASED GLUCOSE; Start 07/31/16 at 16:30 Glucagon (Glucagen) 1 mg Q15M PRN IM DECREASED GLUCOSE; Start 07/31/16 at 16:30 Glucose (Glutose) 15 gm Q15M PRN BUCCAL DECREASED GLUCOSE; Start 07/31/16 at 16 :30 Sodium Hypochlorite (Dakin'S (1/4 Strength)) 1 applic BID IRR Last administered on 08/20/16 22:11; Admin Dose 1 APPLIC; Start 08/01/16 at 21:00 Calcium Carbonate (Ca Carbonate) 1,250 mg BID GTB Last administered on 11:32; Admin Dose 1,250 MG; Start 08/01/16 at 22:30 Acetaminophen/ Hydrocodone Bitart ([place] (5/325)) 1 tab Q4H PRN PEG MODERATE PAIN LEVEL 4-6 Last administered on 08/19/16 21:53; Admin Dose 1 TAB; Start 08/02/16 at 00:00 Lorazepam (Ativan) 0.5 mg Q4H PRN IV ANXIETY Last administered on 08/21/16 01: 51; Admin Dose 0.5 MG; Start 08/02/16 at 00:00 Zolpidem Tartrate (Ambien) 10 mg HS PRN PEG INSOMNIA Last administered on 01:56; Admin Dose 10 MG; Start 08/02/16 at 03:30 Fluconazole (Diflucan) 100 mg DAILY PO Last administered on 08/21/16 11:33; Admin Dose 100 MG; Start 08/02/16 at 12:30 Ibuprofen (Motrin) 600 mg Q6H PRN PO PAIN OR TEMP ABOVE 38C Last administered on 08/11/16 21:29; Admin Dose 600 MG; Start 08/02/16 at 15:00 Zinc Sulfate (Zinc Sulfate) 220 mg DAILY GTB Last administered on 08/21/16 11: 33; Admin Dose 220 MG; Start 08/03/16 at 11:30 Multivitamins Therapeutic (Theragran) 1 tab DAILY PO Last administered on 11:33; Admin Dose 1 TAB; Start 08/03/16 at 11:30 Ascorbic Acid (Vitamin C) 500 mg BID GTB Last administered on 08/21/16 11:33; Admin Dose 500 MG; Start 08/03/16 at 11:30 Sodium Hypochlorite (Dakin'S (Dilute 1/40%)) 1 applic BID IRR Last administered on 08/20/16 21:00; Admin Dose 1 APPLIC; Start 08/04/16 at 12:00 Hydromorphone HCl 0.5 mg 0.5 mg Q8H PRN IV PAIN Last administered on 08/19/16 18:35; Admin Dose 0.5 MG; Start 08/04/16 at 12:00 Cefepime HCl (Maxipime 1gm/50 ml (Pmx)) 50 ml @ 100 mls/hr Q12 IVPB Last administered on 08/21/16 11:36; Admin Dose 100 MLS/HR; Start 08/08/16 at 16:00 Levothyroxine Sodium (Synthroid) 25 mcg DAILY@06 PO Last administered on 05:33; Admin Dose 25 MCG; Start 08/11/16 at 06:00 Docusate Sodium (Colace Liquid Cup) 100 mg Q12 GTB Last administered on 11:37; Admin Dose 100 MG; Start 08/11/16 at 10:30 Paroxetine HCl (Paxil) 10 mg DAILY PO Last administered on 08/21/16 11:34; Admin Dose 10 MG; Start 08/11/16 at 21:00 Insulin Aspart (Novolog Insulin Pen) NOVOLOG *MODERATE* ALGORI... Q6 SC Last administered on 08/18/16 12:33; Admin Dose 2 UNIT; Start 08/13/16 at 00:00 Famotidine (Pepcid) 20 mg Q12 GTB Last administered on 08/21/16 11:34; Admin Dose 20 MG; Start 08/13/16 at 09:00 Lactobacillus Acidoph/Bulgaricus (Floranex) 1 tab TID GTB Last administered on 08/21/16 11:33; Admin Dose 1 TAB; Start 08/15/16 at 21:30 Metformin HCl (Glucophage) 500 mg Q12 GTB Last administered on 08/21/16 11:33 ; Admin Dose 500 MG; Start 08/15/16 at 21:30 Linezolid (Zyvox) 600 mg BID GTB Last administered on 08/21/16 11:34; Admin Dose 600 MG; Start 08/15/16 at 21:30 Metronidazole (Flagyl) 500 mg Q8 GTB Last administered on 08/21/16 05:34; Admin Dose 500 MG; Start 08/15/16 at 22:00 Acetaminophen 650 mg 650 mg Q6H PRN GTB PAIN AND OR ELEVATED TEMP Last administered on 08/21/16 04:56; Admin Dose 650 MG; Start 08/15/16 at 21:30 Colistimethate Sodium/Sodium Chloride (Coly-Mycin/NS) 100 ml @ 200 mls/hr Q12 IVPB Last administered on 08/21/16 11:36; Admin Dose 200 MLS/HR; Start at 21:00 Magnesium Oxide (Mag-Ox 400) 400 mg DAILY GTB Last administered on 08/21/16 11 :34; Admin Dose 400 MG; Start 08/20/16 at 09:00 Potassium Chloride (Potassium Chloride Pwd/Soln) 20 meq DAILY GTB Last administered on 08/21/16 11:32; Admin Dose 20 MEQ; Start 08/20/16 at 09:00 Enoxaparin Sodium (Lovenox) 85 mg Q12 SC Last administered on 08/21/16 11:48; Admin Dose 85 MG; Start 08/20/16 at 21:00 LESLIE FERRARO NP Aug 21, 2016 15:04
--- NOTE | 2016-08-21 17:56 | PN ---
Date/Time of Note Date/Time of Note DATE: 08/21/16 TIME: 17:53 Assessment/Plan VTE Prophylaxis VTE Prophylaxis Intervention: LMWH Lines/Catheters IV Catheter Type (from Nrs): Peripheral IV Urinary Cath still in place: Yes Reason Cath still needed: urinary retention Assessment/Plan Chief Complaint/Hosp Course Subjective: Wants to try speaking valve. Objective: Sinus tach Physical examination Trach clean dry intact no pallor adenopathy Regular Diminished breath sounds bilaterally Abdomen benign. PEG c/d/i Extremities hypotonia edema A/P 1) Sepsis; HCAP likely; mod stable. Chest x-ray worse. May need bronc vs ro atypical infection, cont atb 2) Recurrent sepsis: Elevated wbc/fever/ hypotension; line infection? 3) Decubitus wound/ MDR organisms. Debridement if recommended by ID. 4) Quadraplegia; poor prognosis 5) Ho C2 fracture 6) VDRF; cont vent 7) Ho c diff 8) Chr CHF/ systolic? 9) Past tobacco 10) Malnutrition; cont peg/feeds. Problems: Exam/Review of Systems Vital Signs Vitals Vital Signs Date Time Temp Pulse Resp B/P Pulse Ox O2 Delivery O2 Flow Rate FiO2 08/21/16 17:10 106 24 97 40 08/21/16 15:36 98.4 98/52 08/21/16 00:30 Mechanical Ventilator Intake and Output 08/20/16 08/20/16 08/21/16 15:00 23:00 07:00 Intake Total 2350 ml 980 ml Output Total 1200 ml 1500 ml Balance 1150 ml -520 ml Results Result Diagram: 08/21/16 0608 08/21/16 0608 Results 24 hrs Laboratory Tests Test 08/20/16 18:14 08/20/16 23:58 08/21/16 05:45 08/21/16 06:08 Bedside Glucose 126 100 120 Alanine Aminotransferase (ALT/SGPT) 18 Albumin 2.4 L Albumin/Globulin Ratio 0.68 Alkaline Phosphatase 132 H Anion Gap 12 Aspartate Amino Transf (AST/SGOT) 22 Basophils # 0.1 Basophils % 0.3 Blood Urea Nitrogen 44 H Calcium Level 11.9 H Carbon Dioxide Level 29 Chloride Level 100 Creatinine 0.78 Direct Bilirubin 0.00 Eosinophils # 0.4 Eosinophils % 2.8 Globulin 3.50 H Glucose Level 98 Hematocrit 26.0 L Hemoglobin 7.9 L Indirect Bilirubin 0.0 Lymphocytes # 0.9 Lymphocytes % 5.6 L Magnesium Level 1.7 Mean Corpuscular Hemoglobin 26.4 L Mean Corpuscular Hemoglobin Concent 30.4 L Mean Corpuscular Volume 87.0 Mean Platelet Volume 10.0 Monocytes # 1.1 H Monocytes % 7.5 Neutrophils # 12.4 H Neutrophils % 82.0 H Nucleated Red Blood Cells # 0.0 Nucleated Red Blood Cells % 0.0 Phosphorus Level 3.2 Platelet Count 388 Potassium Level 3.8 Random Cortisol 8.8 Red Blood Count 2.99 L Red Cell Distribution Width 17.8 H Sodium Level 137 Total Bilirubin 0.0 L Total Protein 5.9 L Troponin I < 0.012 White Blood Count 15.2 H Test 08/21/16 07:00 08/21/16 12:03 Arterial Blood HCO3 27.5 H Arterial Blood Base Excess 2.3 Arterial Blood Oxygen Saturation 99.5 H [place] Test ACCEPTAB Arterial Blood Gas Puncture Site Right Radial Arterial Blood Carboxyhemoglobin 0.5 Arterial Blood Date Drawn 08/21/2016 7:50:04 AM Arterial Blood Methemoglobin 0.6 Arterial Blood pCO2 (Temp correct) 46.4 H Arterial Blood pH (Temp corrected) 7.391 Arterial Blood pO2 (Temp corrected) 231.7 H Blood Gas A-a O2 Differential 145.1 H Blood Gas Actual Respiration Rate 24 Blood Gas Low PEEP Setting 5.0 Blood Gas Modality VENT - AC Blood Gas Notified Time 08/21/2016 8:12:03 AM Blood Gas Notified Whom JLD Blood Gas Respiration Rate 24.0 Blood Gas Specimen Source Blood arterial Blood Gas Temperature 37.0 Blood Gas Tidal Volume 500.0 FiO2 60.0 Oxyhemoglobin Percent 98.4 Total Hemoglobin 7.4 L Bedside Glucose 132 Medications Medications Current Medications Ondansetron HCl (Zofran Inj) 4 mg Q6H PRN IV NAUSEA AND/OR VOMITING Last administered on 08/15/16 05:11; Admin Dose 4 MG; Start 07/31/16 at 15:00 Morphine Sulfate (morphine) 2 mg Q4H PRN IV SEVERE PAIN LEVEL 7-10 Last administered on 08/20/16 00:32; Admin Dose 2 MG; Start 07/31/16 at 15:00 Magnesium Hydroxide (Milk Of Mag) 30 ml DAILY PRN PO CONSTIPATION; Start at 15:00 Sodium Biphosphate/ Sodium Phosphate (Fleet Enema) 133 ml DAILY PRN IN CONSTIPATION; Start 07/31/16 at 15:00 Hydralazine HCl (Apresoline) 10 mg Q6H PRN IV ELEVATED BLOOD PRESSURE; Start at 15:00 Nitroglycerin (Nitroglycerin (Sl Tab) 0.4 Mg) 1 tab Q5M PRN SL ANGINA; Start at 15:00 Miscellaneous Information 1 ea NOTE XX ; Start 07/31/16 at 16:30 Glucose (Glutose) 15 gm Q15M PRN PO DECREASED GLUCOSE; Start 07/31/16 at 16:30 Glucose (Glutose) 22.5 gm Q15M PRN PO DECREASED GLUCOSE; Start 07/31/16 at 16: 30 Dextrose (D50w Syringe) 25 ml Q15M PRN IV DECREASED GLUCOSE; Start 07/31/16 at 16:30 Dextrose (D50w Syringe) 50 ml Q15M PRN IV DECREASED GLUCOSE; Start 07/31/16 at 16:30 Glucagon (Glucagen) 1 mg Q15M PRN IM DECREASED GLUCOSE; Start 07/31/16 at 16:30 Glucose (Glutose) 15 gm Q15M PRN BUCCAL DECREASED GLUCOSE; Start 07/31/16 at 16 :30 Sodium Hypochlorite (Dakin'S (1/4 Strength)) 1 applic BID IRR Last administered on 08/20/16 22:11; Admin Dose 1 APPLIC; Start 08/01/16 at 21:00 Calcium Carbonate (Ca Carbonate) 1,250 mg BID GTB Last administered on 11:32; Admin Dose 1,250 MG; Start 08/01/16 at 22:30 Acetaminophen/ Hydrocodone Bitart ([place] (5/325)) 1 tab Q4H PRN PEG MODERATE PAIN LEVEL 4-6 Last administered on 08/19/16 21:53; Admin Dose 1 TAB; Start 08/02/16 at 00:00 Lorazepam (Ativan) 0.5 mg Q4H PRN IV ANXIETY Last administered on 08/21/16 15: 26; Admin Dose 0.5 MG; Start 08/02/16 at 00:00 Zolpidem Tartrate (Ambien) 10 mg HS PRN PEG INSOMNIA Last administered on 01:56; Admin Dose 10 MG; Start 08/02/16 at 03:30 Fluconazole (Diflucan) 100 mg DAILY PO Last administered on 08/21/16 11:33; Admin Dose 100 MG; Start 08/02/16 at 12:30 Ibuprofen (Motrin) 600 mg Q6H PRN PO PAIN OR TEMP ABOVE 38C Last administered on 08/11/16 21:29; Admin Dose 600 MG; Start 08/02/16 at 15:00 Zinc Sulfate (Zinc Sulfate) 220 mg DAILY GTB Last administered on 08/21/16 11: 33; Admin Dose 220 MG; Start 08/03/16 at 11:30 Multivitamins Therapeutic (Theragran) 1 tab DAILY PO Last administered on 11:33; Admin Dose 1 TAB; Start 08/03/16 at 11:30 Ascorbic Acid (Vitamin C) 500 mg BID GTB Last administered on 08/21/16 11:33; Admin Dose 500 MG; Start 08/03/16 at 11:30 Sodium Hypochlorite (Dakin'S (Dilute 1/40%)) 1 applic BID IRR Last administered on 08/20/16 21:00; Admin Dose 1 APPLIC; Start 08/04/16 at 12:00 Hydromorphone HCl 0.5 mg 0.5 mg Q8H PRN IV PAIN Last administered on 08/19/16 18:35; Admin Dose 0.5 MG; Start 08/04/16 at 12:00 Cefepime HCl (Maxipime 1gm/50 ml (Pmx)) 50 ml @ 100 mls/hr Q12 IVPB Last administered on 08/21/16 11:36; Admin Dose 100 MLS/HR; Start 08/08/16 at 16:00 Levothyroxine Sodium (Synthroid) 25 mcg DAILY@06 PO Last administered on 05:33; Admin Dose 25 MCG; Start 08/11/16 at 06:00 Docusate Sodium (Colace Liquid Cup) 100 mg Q12 GTB Last administered on 11:37; Admin Dose 100 MG; Start 08/11/16 at 10:30 Paroxetine HCl (Paxil) 10 mg DAILY PO Last administered on 08/21/16 11:34; Admin Dose 10 MG; Start 08/11/16 at 21:00 Insulin Aspart (Novolog Insulin Pen) NOVOLOG *MODERATE* ALGORI... Q6 SC Last administered on 08/18/16 12:33; Admin Dose 2 UNIT; Start 08/13/16 at 00:00 Famotidine (Pepcid) 20 mg Q12 GTB Last administered on 08/21/16 11:34; Admin Dose 20 MG; Start 08/13/16 at 09:00 Lactobacillus Acidoph/Bulgaricus (Floranex) 1 tab TID GTB Last administered on 08/21/16 15:26; Admin Dose 1 TAB; Start 08/15/16 at 21:30 Metformin HCl (Glucophage) 500 mg Q12 GTB Last administered on 08/21/16 11:33 ; Admin Dose 500 MG; Start 08/15/16 at 21:30 Linezolid (Zyvox) 600 mg BID GTB Last administered on 08/21/16 11:34; Admin Dose 600 MG; Start 08/15/16 at 21:30 Metronidazole (Flagyl) 500 mg Q8 GTB Last administered on 08/21/16 15:26; Admin Dose 500 MG; Start 08/15/16 at 22:00 Acetaminophen 650 mg 650 mg Q6H PRN GTB PAIN AND OR ELEVATED TEMP Last administered on 08/21/16 04:56; Admin Dose 650 MG; Start 08/15/16 at 21:30 Colistimethate Sodium/Sodium Chloride (Coly-Mycin/NS) 100 ml @ 200 mls/hr Q12 IVPB Last administered on 08/21/16 11:36; Admin Dose 200 MLS/HR; Start at 21:00 Magnesium Oxide (Mag-Ox 400) 400 mg DAILY GTB Last administered on 08/21/16 11 :34; Admin Dose 400 MG; Start 08/20/16 at 09:00 Potassium Chloride (Potassium Chloride Pwd/Soln) 20 meq DAILY GTB Last administered on 08/21/16 11:32; Admin Dose 20 MEQ; Start 08/20/16 at 09:00 Enoxaparin Sodium (Lovenox) 85 mg Q12 SC Last administered on 08/21/16 11:48; Admin Dose 85 MG; Start 3/20/17 at 21:00 MARY BETH HOUSTON MD Aug 21, 2016 17:55
[2016-08-21 18:30] LABS: ADD UMIC YES; URINE BILIRUBIN (Dip) NEGATIVE (NEGATIVE); URINE BLOOD (Dip) TRACE (NEGATIVE); URINE COLOR LT. YELLOW (YELLOW); URINE GLUCOSE (Dip) NEGATIVE (NEGATIVE); URINE KETONES (Dip) NEGATIVE (NEGATIVE); URINE LEUKOCYTE ESTERASE (Dip) NEGATIVE (NEGATIVE); URINE NITRITE (Dip) NEGATIVE (NEGATIVE); URINE TOTAL PROTEIN (Dip) 1+ (NEGATIVE); URINE UROBILINOGEN (Dip) 0.2 E.U./dL (0.1-1.0)
[2016-08-21 18:36] LABS: URINE RBCS 0-2 /HPF (0)
[2016-08-21 18:37] LABS: BACTERIA,URINE FEW; SQUAMOUS EPITHELIAL CELL,UR RARE
[2016-08-22] VITALS (24 sets, daily range): BP systolic 78–117; BP diastolic 53–60; PULSE 98–130; RESP 14–28
[2016-08-22] MEDS: HYDROmorphONE 1 MG/ML SYG IV PRN ×2 (04:15→22:05)
[2016-08-22] MEDS: LORAZEPAM 2 MG INJ IV PRN ×2 (05:20→18:00)
[2016-08-22] MEDS: INSULIN ASPART [NOVOLOG] 3 ML PEN SC SCH ×4 (05:31→18:00)
[2016-08-22] MEDS: metroNIDAZOLE 500 MG TAB GTB SCH ×3 (05:32→22:07)
[2016-08-22] MEDS: LEVOTHYROXINE 25 MCG TAB PO SCH (05:32)
[2016-08-22 07:25] LABS: ADD SCAN DIFF NO
[2016-08-22 07:30] LABS: BASOPHIL # 0.1 10^3/ul (0.0-0.1); BASOPHILS % 0.3 % (0.0-2.0); EOSINOPHILS # 0.4 10^3/ul (0.0-0.5); HEMATOCRIT 25.6 % (42.0-52.0); HEMOGLOBIN 7.7 g/dl (14.0-18.0); LYMPHOCYTES # 0.7 10^3/ul (0.8-2.9); LYMPHOCYTES % 3.7 % (15.0-51.0); MEAN CORPUSCULAR HGB CONC 30.1 g/dl (32.0-37.0); MEAN CORPUSCULAR VOLUME 86.5 fl (82.0-101.0); MEAN PLATELET VOLUME 9.5 fl (7.4-10.4); MONOCYTE # 1.3 10^3/ul (0.3-0.9); MONOCYTES % 6.4 % (0.0-11.0); NEUTROPHIL # 16.6 10^3/ul (1.6-7.5); NEUTROPHILS % 84.2 % (39.0-77.0); PLATELET COUNT 421 10^3/UL (140-415); RED BLOOD COUNT 2.96 10^6/ul (4.70-6.10); RED CELL DISTRIBUTION WIDTH 17.5 % (11.5-14.5); WHITE BLOOD COUNT 19.7 10^3/ul (4.8-10.8)
--- NOTE | 2016-08-22 07:34 | RADRPT ---
PROCEDURE: XR Chest. CLINICAL INDICATION: Dyspnea TECHNIQUE: Single frontal chest x-ray. COMPARISON: Chest x-ray dated 08/21/2016 FINDINGS: Dense consolidation is seen scattered throughout the lungs, stable over time. Layering basilar pleu ral effusions are seen, also stable over time. The heart size is within normal limits and the media stinal silhouette is unremarkable. Tracheostomy tube and left upper chest Port-A-Cath are identifie d in stable and good location, without evidence for pneumothorax. The surrounding osseous structure s are unremarkable. Overall appearances are stable when compared to the prior study. IMPRESSION: 1. Stable chest x-ray compared to the previous exam. 2. Dense consolidation scattered throughout the lungs, unchanged. 3. Basilar pleural effusions, equally unchanged. RPTAT: HMJB .Hardy Polanco MD, Date Time Electronically viewed and signed by .Hardy Polanco MD, on 08/22/2016 07:34 .B/
[2016-08-22 07:40] LABS: POTASSIUM 3.7 mmol/L (3.5-5.1)
[2016-08-22 07:42] LABS: CREATININE 0.74 mg/dl (0.61-1.24)
[2016-08-22 07:43] LABS: MAGNESIUM 1.5 mg/dl (1.7-2.5); PHOSPHORUS 3.3 mg/dl (2.5-4.9)
[2016-08-22] MEDS: ALBUTEROL 0.083% (NEB) 2.5 MG/3 ML AMP HHN SCH (08:43)
[2016-08-22] MEDS: ZYVOX 600 MG TAB GTB SCH ×2 (09:42→22:05)
[2016-08-22] MEDS: MULTIVITAMINS THERAPEUTIC TAB PO SCH (09:42)
[2016-08-22] MEDS: FLUCONAZOLE 100 MG TAB PO SCH (09:42)
[2016-08-22] MEDS: ZINC SULFATE 220 MG CAP GTB SCH (09:42)
[2016-08-22] MEDS: LACTOBACILLUS CHEW TAB GTB SCH ×3 (09:42→22:05)
[2016-08-22] MEDS: MAGNESIUM OXIDE 400 MG TAB GTB SCH (09:42)
[2016-08-22] MEDS: FAMOTIDINE 20 MG TAB GTB SCH (09:42)
[2016-08-22] MEDS: metFORMIN 500 MG TAB GTB SCH ×2 (09:42→22:05)
[2016-08-22] MEDS: PAROXETINE 10 MG TAB PO SCH (09:42)
[2016-08-22] MEDS: ASCORBIC ACID 500 MG TAB GTB SCH ×2 (09:42→21:00)
[2016-08-22] MEDS: COLISTIMETHATE 150 MG in SOD CHLORIDE 0.9% 100 ML IVPB SCH ×2 (09:43→22:06)
[2016-08-22] MEDS: POTASSIUM CHLORIDE 20 MEQ POWDER FOR ORAL SOLN GTB SCH (09:43)
[2016-08-22] MEDS: CEFEPIME 1GM/50 ML (PMX) 50 ML IVPB SCH ×2 (09:43→22:04)
[2016-08-22] MEDS: ACETAMINOPHEN 325 MG TAB GTB PRN ×3 (09:49→22:04)
[2016-08-22] MEDS: SODIUM HYPOCHLORITE 1/40% 1L IRRIG IRR SCH ×2 (09:50→22:06)
[2016-08-22] MEDS: SODIUM HYPOCHLORITE 0.125% 473 ML BTL IRR SCH ×2 (09:50→21:00)
[2016-08-22] MEDS: ENOXAPARIN 40 MG/0.4 ML SYG SC SCH (10:05)
--- NOTE | 2016-08-22 11:16 | CONS ---
Date/Time of Note Date/Time of Note DATE: 08/22/16 TIME: 11:13 Assessment/Plan Assessment/Plan Additional Assessment/Plan Chest x-ray was reviewed from today which is showing improved aeration in lower lobes. Patchy bilateral infiltrates are present. Ventilator settings; AC of 24, tidal volume of 500, PEEP of 5, 45% FiO2. Assessment recommendations; 1. Patient admitted for severe bilateral pneumonia with a slow and gradual improvement. 2. Severe decubitus ulcers causing persistent leukocytosis patient currently on broad-spectrum antibiotic coverage. 3. Systolic dysfunction. 4. History of quadriplegia, patient remains ventilator dependent. Continue current supportive care. Prognosis is poor. The patient may need to have a diverting colostomy performed once he is clinically stable. Consultation Date/Type/Reason Admit Date/Time Jul 31, 2016 at 14:20 Initial Consult Date 08/02/16 Type of Consultation: Pulmonary 24 HR Interval Summary Free Text/Dictation Patient condition remains stable. FiO2 is weaned down to 45%. Patient maintaining adequate O2 saturations. Remains awake and alert. Has remained hemodynamically stable. General exam; young male, on ventilator via tracheostomy currently in no distress awake and alert. Exam/Review of Systems Vital Signs Vitals Vital Signs Date Time Temp Pulse Resp B/P Pulse Ox O2 Delivery O2 Flow Rate FiO2 08/22/16 08:44 119 14 92 45 08/22/16 07:50 99.5 92/55 08/21/16 00:30 Mechanical Ventilator Intake and Output 08/21/16 08/21/16 08/22/16 15:00 23:00 07:00 Intake Total 1515 ml 3349 ml Output Total 1100 ml 3700 ml Balance 415 ml -351 ml Exam HEENT exam; soft C-spine collar is in place. Tracheostomy in place. Patient has fair dentition. Pupils are midsize reactive to light. Pharynx is clear. No neck masses. Chest examination HI: Bibasilar crackles. Upper lobes are fairly clear. S1-S2 audible, no murmurs. Regular rhythm. Abdomen examination; soft, no organomegaly. Bowel sounds audible. G-tube in place. Nondistended abdomen activities no peripheral edema. Next Venous examination patient has stable quadriplegia. Back examination reveals dressing applied over sacral area as well as bilateral lateral dressing applied over posterior upper thighs and hips appear Results Result Diagram: 08/22/16 0710 08/22/16 0710 Results 24 hrs Laboratory Tests Test 08/21/16 12:03 08/21/16 18:06 08/21/16 18:11 08/22/16 01:19 Bedside Glucose 132 127 118 Urine Color LT. YELLOW Urine Clarity CLEAR Urine pH 7.0 Urine Specific [place] 1.015 Urine Ketones NEGATIVE Urine Nitrite NEGATIVE Urine Bilirubin NEGATIVE Urine Urobilinogen 0.2 E.U./dL Urine Leukocyte Esterase NEGATIVE Urine Microscopic RBC 0-2 Urine Microscopic WBC 2-5 Urine Squamous Epithelial Cells RARE Urine Bacteria FEW Urine Hemoglobin TRACE Urine Glucose NEGATIVE Urine Total Protein 1+ H Test 08/22/16 05:31 08/22/16 07:10 Bedside Glucose 119 White Blood Count 19.7 #H Red Blood Count 2.96 L Hemoglobin 7.7 L Hematocrit 25.6 L Mean Corpuscular Volume 86.5 Mean Corpuscular Hemoglobin 26.0 L Mean Corpuscular Hemoglobin Concent 30.1 L Red Cell Distribution Width 17.5 H Platelet Count 421 H Mean Platelet Volume 9.5 Neutrophils % 84.2 H Lymphocytes % 3.7 L Monocytes % 6.4 Eosinophils % 2.0 Basophils % 0.3 Nucleated Red Blood Cells % 0.0 Neutrophils # 16.6 H Lymphocytes # 0.7 L Monocytes # 1.3 H Eosinophils # 0.4 Basophils # 0.1 Nucleated Red Blood Cells # 0.0 Sodium Level 137 Potassium Level 3.7 Chloride Level 99 Carbon Dioxide Level 28 Anion Gap 14 Blood Urea Nitrogen 47 H Creatinine 0.74 Glucose Level 98 Calcium Level 12.0 H Phosphorus Level 3.3 Magnesium Level 1.5 L Medications Medications Current Medications Ondansetron HCl (Zofran Inj) 4 mg Q6H PRN IV NAUSEA AND/OR VOMITING Last administered on 08/15/16 05:11; Admin Dose 4 MG; Start 07/31/16 at 15:00 Morphine Sulfate (morphine) 2 mg Q4H PRN IV SEVERE PAIN LEVEL 7-10 Last administered on 08/20/16 00:32; Admin Dose 2 MG; Start 07/31/16 at 15:00 Magnesium Hydroxide (Milk Of Mag) 30 ml DAILY PRN PO CONSTIPATION; Start at 15:00 Sodium Biphosphate/ Sodium Phosphate (Fleet Enema) 133 ml DAILY PRN NM CONSTIPATION; Start 07/31/16 at 15:00 Hydralazine HCl (Apresoline) 10 mg Q6H PRN IV ELEVATED BLOOD PRESSURE; Start at 15:00 Nitroglycerin (Nitroglycerin (Sl Tab) 0.4 Mg) 1 tab Q5M PRN SL ANGINA; Start at 15:00 Miscellaneous Information 1 ea NOTE XX ; Start 07/31/16 at 16:30 Glucose (Glutose) 15 gm Q15M PRN PO DECREASED GLUCOSE; Start 07/31/16 at 16:30 Glucose (Glutose) 22.5 gm Q15M PRN PO DECREASED GLUCOSE; Start 07/31/16 at 16: 30 Dextrose (D50w Syringe) 25 ml Q15M PRN IV DECREASED GLUCOSE; Start 07/31/16 at 16:30 Dextrose (D50w Syringe) 50 ml Q15M PRN IV DECREASED GLUCOSE; Start 07/31/16 at 16:30 Glucagon (Glucagen) 1 mg Q15M PRN IM DECREASED GLUCOSE; Start 07/31/16 at 16:30 Glucose (Glutose) 15 gm Q15M PRN BUCCAL DECREASED GLUCOSE; Start 07/31/16 at 16 :30 Sodium Hypochlorite (Dakin'S (1/4 Strength)) 1 applic BID IRR Last administered on 08/22/16 09:50; Admin Dose 1 APPLIC; Start 08/01/16 at 21:00 Acetaminophen/ Hydrocodone Bitart ([place] (5/325)) 1 tab Q4H PRN PEG MODERATE PAIN LEVEL 4-6 Last administered on 08/19/16 21:53; Admin Dose 1 TAB; Start 08/02/16 at 00:00 Lorazepam (Ativan) 0.5 mg Q4H PRN IV ANXIETY Last administered on 08/22/16 05: 20; Admin Dose 0.5 MG; Start 08/02/16 at 00:00 Zolpidem Tartrate (Ambien) 10 mg HS PRN PEG INSOMNIA Last administered on 22:53; Admin Dose 10 MG; Start 08/02/16 at 03:30 Fluconazole (Diflucan) 100 mg DAILY PO Last administered on 08/22/16 09:42; Admin Dose 100 MG; Start 08/02/16 at 12:30 Ibuprofen (Motrin) 600 mg Q6H PRN PO PAIN OR TEMP ABOVE 38C Last administered on 08/11/16 21:29; Admin Dose 600 MG; Start 08/02/16 at 15:00 Zinc Sulfate (Zinc Sulfate) 220 mg DAILY GTB Last administered on 08/22/16 09: 42; Admin Dose 220 MG; Start 08/03/16 at 11:30 Multivitamins Therapeutic (Theragran) 1 tab DAILY PO Last administered on 09:42; Admin Dose 1 TAB; Start 08/03/16 at 11:30 Ascorbic Acid (Vitamin C) 500 mg BID GTB Last administered on 08/22/16 09:42; Admin Dose 500 MG; Start 08/03/16 at 11:30 Sodium Hypochlorite (Dakin'S (Dilute 1/40%)) 1 applic BID IRR Last administered on 08/22/16 09:50; Admin Dose 1 APPLIC; Start 08/04/16 at 12:00 Hydromorphone HCl 0.5 mg 0.5 mg Q8H PRN IV PAIN Last administered on 08/22/16 04:15; Admin Dose 0.5 MG; Start 08/04/16 at 12:00 Cefepime HCl (Maxipime 1gm/50 ml (Pmx)) 50 ml @ 100 mls/hr Q12 IVPB Last administered on 08/22/16 09:43; Admin Dose 100 MLS/HR; Start 08/08/16 at 16:00 Levothyroxine Sodium (Synthroid) 25 mcg DAILY@06 PO Last administered on 05:32; Admin Dose 25 MCG; Start 08/11/16 at 06:00 Paroxetine HCl (Paxil) 10 mg DAILY PO Last administered on 08/22/16 09:42; Admin Dose 10 MG; Start 08/11/16 at 21:00 Insulin Aspart (Novolog Insulin Pen) NOVOLOG *MODERATE* ALGORI... Q6 SC Last administered on 08/18/16 12:33; Admin Dose 2 UNIT; Start 08/13/16 at 00:00 Lactobacillus Acidoph/Bulgaricus (Floranex) 1 tab TID GTB Last administered on 08/22/16 09:42; Admin Dose 1 TAB; Start 08/15/16 at 21:30 Metformin HCl (Glucophage) 500 mg Q12 GTB Last administered on 08/22/16 09:42 ; Admin Dose 500 MG; Start 08/15/16 at 21:30 Linezolid (Zyvox) 600 mg BID GTB Last administered on 08/22/16 09:42; Admin Dose 600 MG; Start 08/15/16 at 21:30 Metronidazole (Flagyl) 500 mg Q8 GTB Last administered on 08/22/16 05:32; Admin Dose 500 MG; Start 08/15/16 at 22:00 Acetaminophen 650 mg 650 mg Q6H PRN GTB PAIN AND OR ELEVATED TEMP Last administered on 08/22/16 09:49; Admin Dose 650 MG; Start 08/15/16 at 21:30 Colistimethate Sodium/Sodium Chloride (Coly-Mycin/NS) 100 ml @ 200 mls/hr Q12 IVPB Last administered on 08/22/16 09:43; Admin Dose 200 MLS/HR; Start at 21:00 Magnesium Oxide (Mag-Ox 400) 400 mg DAILY GTB Last administered on 08/22/16 09 :42; Admin Dose 400 MG; Start 08/20/16 at 09:00 Potassium Chloride (Potassium Chloride Pwd/Soln) 20 meq DAILY GTB Last administered on 08/22/16 09:43; Admin Dose 20 MEQ; Start 08/20/16 at 09:00 Enoxaparin Sodium (Lovenox) 40 mg DAILY SC Last administered on 08/22/16 10:05 ; Admin Dose 40 MG; Start 08/22/16 at 09:00 Famotidine (Pepcid) 20 mg DAILY GTB Last administered on 08/22/16 09:42; Admin Dose 20 MG; Start 08/22/16 at 09:00 ALISSON ARRIOLA Aug 22, 2016 11:16
--- NOTE | 2016-08-22 12:31 | PN ---
Date/Time of Note Date/Time of Note DATE: 08/22/16 TIME: 12:28 Assessment/Plan VTE Prophylaxis VTE Prophylaxis Intervention: LMWH Lines/Catheters IV Catheter Type (from Nrs): Peripheral IV Urinary Cath still in place: Yes Reason Cath still needed: urinary retention Assessment/Plan Chief Complaint/Hosp Course Subjective: 08/21-Wants to try speaking valve. 08/22-still having fever. tolerating feeds. no diarrhea. Objective: ST PE Trach c/d/i. no pallor/ adenopathy Reg Diminished bs bilat Abd benign. PEG c/d/i Ext- hypotonia edema A/P 1) Sepsis; HCAP likely; mod stable. For bronch. Vs ro atypical infection, cont atb 2) Recurrent sepsis: Elev wbc/fever/hypotension; line infection? 3) Decubitus wound/ MDR organisms. Debridement if recommended by ID. 4) Quadraplegia; poor prognosis; palliative care eval 5) Ho C2 fracture 6) VDRF; cont vent 7) Ho c diff 8) Chr CHF/ systolic? 9) Past tobacco 10) Malnutrition; cont peg/feeds. 11) Elevated Ca; Calcium dced. Problems: Exam/Review of Systems Vital Signs Vitals Vital Signs Date Time Temp Pulse Resp B/P Pulse Ox O2 Delivery O2 Flow Rate FiO2 08/22/16 12:22 114 08/22/16 11:35 14 88 45 08/22/16 11:30 100.0 91/54 08/21/16 00:30 Mechanical Ventilator Intake and Output 08/21/16 08/21/16 08/22/16 15:00 23:00 07:00 Intake Total 1515 ml 3349 ml Output Total 1100 ml 3700 ml Balance 415 ml -351 ml Results Result Diagram: 08/22/16 0710 08/22/16 0710 Results 24 hrs Laboratory Tests Test 08/21/16 18:06 08/21/16 18:11 08/22/16 01:19 08/22/16 05:31 Urine Color LT. YELLOW Urine Clarity CLEAR Urine pH 7.0 Urine Specific [place] 1.015 Urine Ketones NEGATIVE Urine Nitrite NEGATIVE Urine Bilirubin NEGATIVE Urine Urobilinogen 0.2 E.U./dL Urine Leukocyte Esterase NEGATIVE Urine Microscopic RBC 0-2 Urine Microscopic WBC 2-5 Urine Squamous Epithelial Cells RARE Urine Bacteria FEW Urine Hemoglobin TRACE Urine Glucose NEGATIVE Urine Total Protein 1+ H Bedside Glucose 127 118 119 Test 08/22/16 07:10 08/22/16 11:41 White Blood Count 19.7 #H Red Blood Count 2.96 L Hemoglobin 7.7 L Hematocrit 25.6 L Mean Corpuscular Volume 86.5 Mean Corpuscular Hemoglobin 26.0 L Mean Corpuscular Hemoglobin Concent 30.1 L Red Cell Distribution Width 17.5 H Platelet Count 421 H Mean Platelet Volume 9.5 Neutrophils % 84.2 H Lymphocytes % 3.7 L Monocytes % 6.4 Eosinophils % 2.0 Basophils % 0.3 Nucleated Red Blood Cells % 0.0 Neutrophils # 16.6 H Lymphocytes # 0.7 L Monocytes # 1.3 H Eosinophils # 0.4 Basophils # 0.1 Nucleated Red Blood Cells # 0.0 Sodium Level 137 Potassium Level 3.7 Chloride Level 99 Carbon Dioxide Level 28 Anion Gap 14 Blood Urea Nitrogen 47 H Creatinine 0.74 Glucose Level 98 Calcium Level 12.0 H Phosphorus Level 3.3 Magnesium Level 1.5 L Bedside Glucose 123 Medications Medications Current Medications Ondansetron HCl (Zofran Inj) 4 mg Q6H PRN IV NAUSEA AND/OR VOMITING Last administered on 08/15/16 05:11; Admin Dose 4 MG; Start 07/31/16 at 15:00 Morphine Sulfate (morphine) 2 mg Q4H PRN IV SEVERE PAIN LEVEL 7-10 Last administered on 08/20/16 00:32; Admin Dose 2 MG; Start 07/31/16 at 15:00 Magnesium Hydroxide (Milk Of Mag) 30 ml DAILY PRN PO CONSTIPATION; Start at 15:00 Sodium Biphosphate/ Sodium Phosphate (Fleet Enema) 133 ml DAILY PRN SD CONSTIPATION; Start 07/31/16 at 15:00 Hydralazine HCl (Apresoline) 10 mg Q6H PRN IV ELEVATED BLOOD PRESSURE; Start at 15:00 Nitroglycerin (Nitroglycerin (Sl Tab) 0.4 Mg) 1 tab Q5M PRN SL ANGINA; Start at 15:00 Miscellaneous Information 1 ea NOTE XX ; Start 07/31/16 at 16:30 Glucose (Glutose) 15 gm Q15M PRN PO DECREASED GLUCOSE; Start 07/31/16 at 16:30 Glucose (Glutose) 22.5 gm Q15M PRN PO DECREASED GLUCOSE; Start 07/31/16 at 16: 30 Dextrose (D50w Syringe) 25 ml Q15M PRN IV DECREASED GLUCOSE; Start 07/31/16 at 16:30 Dextrose (D50w Syringe) 50 ml Q15M PRN IV DECREASED GLUCOSE; Start 07/31/16 at 16:30 Glucagon (Glucagen) 1 mg Q15M PRN IM DECREASED GLUCOSE; Start 07/31/16 at 16:30 Glucose (Glutose) 15 gm Q15M PRN BUCCAL DECREASED GLUCOSE; Start 07/31/16 at 16 :30 Sodium Hypochlorite (Dakin'S (1/4 Strength)) 1 applic BID IRR Last administered on 08/22/16 09:50; Admin Dose 1 APPLIC; Start 08/01/16 at 21:00 Acetaminophen/ Hydrocodone Bitart ([place] (5/325)) 1 tab Q4H PRN PEG MODERATE PAIN LEVEL 4-6 Last administered on 08/19/16 21:53; Admin Dose 1 TAB; Start 08/02/16 at 00:00 Lorazepam (Ativan) 0.5 mg Q4H PRN IV ANXIETY Last administered on 08/22/16 05: 20; Admin Dose 0.5 MG; Start 08/02/16 at 00:00 Zolpidem Tartrate (Ambien) 10 mg HS PRN PEG INSOMNIA Last administered on 22:53; Admin Dose 10 MG; Start 08/02/16 at 03:30 Fluconazole (Diflucan) 100 mg DAILY PO Last administered on 08/22/16 09:42; Admin Dose 100 MG; Start 08/02/16 at 12:30 Ibuprofen (Motrin) 600 mg Q6H PRN PO PAIN OR TEMP ABOVE 38C Last administered on 08/11/16 21:29; Admin Dose 600 MG; Start 08/02/16 at 15:00 Zinc Sulfate (Zinc Sulfate) 220 mg DAILY GTB Last administered on 08/22/16 09: 42; Admin Dose 220 MG; Start 08/03/16 at 11:30 Multivitamins Therapeutic (Theragran) 1 tab DAILY PO Last administered on 09:42; Admin Dose 1 TAB; Start 08/03/16 at 11:30 Ascorbic Acid (Vitamin C) 500 mg BID GTB Last administered on 08/22/16 09:42; Admin Dose 500 MG; Start 08/03/16 at 11:30 Sodium Hypochlorite (Dakin'S (Dilute 1/40%)) 1 applic BID IRR Last administered on 08/22/16 09:50; Admin Dose 1 APPLIC; Start 08/04/16 at 12:00 Hydromorphone HCl 0.5 mg 0.5 mg Q8H PRN IV PAIN Last administered on 08/22/16 04:15; Admin Dose 0.5 MG; Start 08/04/16 at 12:00 Cefepime HCl (Maxipime 1gm/50 ml (Pmx)) 50 ml @ 100 mls/hr Q12 IVPB Last administered on 08/22/16 09:43; Admin Dose 100 MLS/HR; Start 08/08/16 at 16:00 Levothyroxine Sodium (Synthroid) 25 mcg DAILY@06 PO Last administered on 05:32; Admin Dose 25 MCG; Start 08/11/16 at 06:00 Paroxetine HCl (Paxil) 10 mg DAILY PO Last administered on 08/22/16 09:42; Admin Dose 10 MG; Start 08/11/16 at 21:00 Insulin Aspart (Novolog Insulin Pen) NOVOLOG *MODERATE* ALGORI... Q6 SC Last administered on 08/18/16 12:33; Admin Dose 2 UNIT; Start 08/13/16 at 00:00 Lactobacillus Acidoph/Bulgaricus (Floranex) 1 tab TID GTB Last administered on 08/22/16 09:42; Admin Dose 1 TAB; Start 08/15/16 at 21:30 Metformin HCl (Glucophage) 500 mg Q12 GTB Last administered on 08/22/16 09:42 ; Admin Dose 500 MG; Start 08/15/16 at 21:30 Linezolid (Zyvox) 600 mg BID GTB Last administered on 08/22/16 09:42; Admin Dose 600 MG; Start 08/15/16 at 21:30 Metronidazole (Flagyl) 500 mg Q8 GTB Last administered on 08/22/16 05:32; Admin Dose 500 MG; Start 08/15/16 at 22:00 Acetaminophen 650 mg 650 mg Q6H PRN GTB PAIN AND OR ELEVATED TEMP Last administered on 08/22/16 09:49; Admin Dose 650 MG; Start 08/15/16 at 21:30 Colistimethate Sodium/Sodium Chloride (Coly-Mycin/NS) 100 ml @ 200 mls/hr Q12 IVPB Last administered on 08/22/16 09:43; Admin Dose 200 MLS/HR; Start at 21:00 Magnesium Oxide (Mag-Ox 400) 400 mg DAILY GTB Last administered on 08/22/16 09 :42; Admin Dose 400 MG; Start 08/20/16 at 09:00 Potassium Chloride (Potassium Chloride Pwd/Soln) 20 meq DAILY GTB Last administered on 08/22/16 09:43; Admin Dose 20 MEQ; Start 08/20/16 at 09:00 Enoxaparin Sodium (Lovenox) 40 mg DAILY SC Last administered on 08/22/16 10:05 ; Admin Dose 40 MG; Start 08/22/16 at 09:00 Famotidine (Pepcid) 20 mg DAILY GTB Last administered on 08/22/16 09:42; Admin Dose 20 MG; Start 08/22/16 at 09:00 MRAY BETH HOUSTON MD Aug 22, 2016 12:31
[2016-08-22] MEDS ORDERED: MAGNESIUM SULFATE 2 GM/50 ML 50 ML IVPB ONE (13:00)
--- NOTE | 2016-08-22 13:26 | PN ---
DATE: 08/22/2016 SUBJECTIVE: No acute changes. The patient is awake, asking for ice chips, looks comfortable, still with low-grade fevers. LABORATORY: WBC today 19.7 with H and H 7.7 and 25.6, platelets 421, neutrophils 84.2, BUN 47, crea tinine 0.74. A urinalysis from yesterday revealed few bacteria, negative leukocyte esterase and nit rite. MICROBIOLOGY: Blood and urine culture from yesterday negative. DIAGNOSTICS: Chest x-ray this morning revealed was stable. INDWELLINGS: The patient has trach, PEG, Oliveira, left chest Port-A-Cath. ANTIMICROBIALS: 1. Colistin. 2. Flagyl. 3. Zyvox. 4. Cefepime. PHYSICAL EXAMINATION: GENERAL: This is a fragile, chronically ill-appearing, middle-aged man who is awake, in no distress . HEENT: Head atraumatic, normocephalic. Sclerae anicteric. Buccal mucosa dry. The patient has whi te thrush on his tongue. NECK: Supple. Tracheostomy present. CHEST: Rise symmetrical. Breath sounds clear, diminished at the bases. HEART: S1, S2. ABDOMEN: Soft, bowel sounds present. EXTREMITIES: Bilateral extremities edema. ASSESSMENT: 1. Persistent fevers etiology could be secondary to multiple wounds. 2. Resolving pneumonia. 3. Right chest Port-A-Cath. 4. Chronic respiratory failure. 5. Quadriplegia. 6. History of Clostridium difficile colitis. 7. Status post urinary tract infection. PLAN: The patient remains clinically stable. We are going to discontinue cefepime. Continue other antibiotics to cover his wound. Continue present care as per primary team and consultants. As per discussion with Dr. Perera his chest x-ray looks significantly better. No need for bronchoscopy. Dictated By: LESLIE FERRARO [employer] INSURANCE AGENT for ROGE LESTER MD NI/NTS Conf#: [id number] DID#: [id number]
[2016-08-22] MEDS: ALBUTEROL HFA 8 GM INHALER INH SCH (16:00)
[2016-08-23] VITALS (24 sets, daily range): BP systolic 90–112; BP diastolic 51–58; PULSE 95–102; RESP 18–24
[2016-08-23] MEDS: LORAZEPAM 2 MG INJ IV PRN ×3 (00:45→19:02)
[2016-08-23] MEDS: HYDROmorphONE 1 MG/ML SYG IV PRN ×2 (05:14→16:06)
[2016-08-23] MEDS: LEVOTHYROXINE 25 MCG TAB PO SCH (06:00)
[2016-08-23] MEDS: metroNIDAZOLE 500 MG TAB GTB SCH ×3 (06:00→22:20)
[2016-08-23] MEDS: INSULIN ASPART [NOVOLOG] 3 ML PEN SC SCH ×4 (06:00→18:00)
[2016-08-23 06:02] LABS: ADD SCAN DIFF NO
[2016-08-23 06:16] LABS: BASOPHILS % 0.3 % (0.0-2.0); EOSINOPHILS # 0.5 10^3/ul (0.0-0.5); HEMATOCRIT 25.2 % (42.0-52.0); HEMOGLOBIN 7.7 g/dl (14.0-18.0); LYMPHOCYTES # 0.8 10^3/ul (0.8-2.9); LYMPHOCYTES % 5.4 % (15.0-51.0); MEAN CORPUSCULAR HEMOGLOBIN 26.2 pg (29.0-33.0); MEAN CORPUSCULAR HGB CONC 30.6 g/dl (32.0-37.0); MEAN CORPUSCULAR VOLUME 85.7 fl (82.0-101.0); MEAN PLATELET VOLUME 10.1 fl (7.4-10.4); MONOCYTE # 1.2 10^3/ul (0.3-0.9); MONOCYTES % 8.2 % (0.0-11.0); NEUTROPHIL # 11.6 10^3/ul (1.6-7.5); NEUTROPHILS % 78.2 % (39.0-77.0); PLATELET COUNT 391 10^3/UL (140-415); RED BLOOD COUNT 2.94 10^6/ul (4.70-6.10); RED CELL DISTRIBUTION WIDTH 17.6 % (11.5-14.5); WHITE BLOOD COUNT 14.8 10^3/ul (4.8-10.8)
[2016-08-23 06:30] LABS: INR 1.48; POTASSIUM 3.1 mmol/L (3.5-5.1); PT RATIO 1.4
[2016-08-23 06:31] LABS: PARTIAL THROMBOPLASTIN TIME 43.4 Sec (25.0-35.0)
[2016-08-23 06:33] LABS: CREATININE 0.68 mg/dl (0.61-1.24)
[2016-08-23 06:34] LABS: CALCIUM 12.5 mg/dl (8.4-10.2); MAGNESIUM 1.9 mg/dl (1.7-2.5); PHOSPHORUS 2.9 mg/dl (2.5-4.9)
[2016-08-23] MEDS: ALBUTEROL HFA 8 GM INHALER INH SCH ×2 (08:48→15:33)
[2016-08-23] MEDS ORDERED: POTASSIUM CHLORIDE 20 MEQ POWDER FOR ORAL SOLN GTB SCH (09:00)
[2016-08-23] MEDS: metFORMIN 500 MG TAB GTB SCH ×2 (09:00→22:20)
[2016-08-23] MEDS: ENOXAPARIN 40 MG/0.4 ML SYG SC SCH (09:00)
[2016-08-23] MEDS: CEFEPIME 1GM/50 ML (PMX) 50 ML IVPB SCH (10:12)
[2016-08-23] MEDS: PAROXETINE 10 MG TAB PO SCH (10:13)
[2016-08-23] MEDS: LACTOBACILLUS CHEW TAB GTB SCH ×3 (10:13→22:20)
[2016-08-23] MEDS: MULTIVITAMINS THERAPEUTIC TAB PO SCH (10:13)
[2016-08-23] MEDS: ZYVOX 600 MG TAB GTB SCH ×2 (10:13→22:20)
[2016-08-23] MEDS: FAMOTIDINE 20 MG TAB GTB SCH (10:13)
[2016-08-23] MEDS: FLUCONAZOLE 100 MG TAB PO SCH (10:14)
[2016-08-23] MEDS: SODIUM HYPOCHLORITE 1/40% 1L IRRIG IRR SCH ×2 (10:17→22:24)
[2016-08-23] MEDS: SODIUM HYPOCHLORITE 0.125% 473 ML BTL IRR SCH ×2 (10:18→22:22)
[2016-08-23] MEDS: ZINC SULFATE 220 MG CAP GTB SCH (10:22)
[2016-08-23] MEDS: ASCORBIC ACID 500 MG TAB GTB SCH ×2 (10:22→22:20)
[2016-08-23] MEDS: COLISTIMETHATE 150 MG in SOD CHLORIDE 0.9% 100 ML IVPB SCH ×2 (10:22→22:26)
[2016-08-23] MEDS: MAGNESIUM OXIDE 400 MG TAB GTB SCH (10:29)
--- NOTE | 2016-08-23 11:18 | CONS ---
Date/Time of Note Date/Time of Note DATE: 08/23/16 TIME: 11:15 Assessment/Plan Assessment/Plan Additional Assessment/Plan Ventilator settings; AC of 24, tidal volume 500, PEEP of 5, 100% FiO2. Assessment recommendations; 1. Patient admitted for severe bilateral pneumonia possibly aspiration. With persistent leukocytosis and hypoxemia. 2. Severe sacral and upper posterior thigh decubitus ulcers. 3. 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 3. Systolic dysfunction. Continue current treatment. Patient will need to have a bronchoscopy performed which I will do performed shortly consent has already been obtained from the patient's brother. Continue current supportive care. Continue current antibiotics. Patient may need to have a diverting colostomy performed when he is clinically stable. Consultation Date/Type/Reason Admit Date/Time Jul 31, 2016 at 14:20 Initial Consult Date 08/02/16 Type of Consultation: Pulmonary 24 HR Interval Summary Free Text/Dictation Patient condition remains tenuous at best. Back 100% FiO2 for O2 saturation maintenance. Patient however has remained hemodynamically stable. General exam; young male, on ventilator via tracheostomy currently in no distress. Awake and alert. Exam/Review of Systems Vital Signs Vitals Vital Signs Date Time Temp Pulse Resp B/P Pulse Ox O2 Delivery O2 Flow Rate FiO2 08/23/16 08:49 103 24 92 100 08/23/16 07:50 99.0 94/51 08/21/16 00:30 Mechanical Ventilator Intake and Output 08/22/16 08/22/16 08/23/16 15:00 23:00 07:00 Intake Total 1400 ml Output Total 900 ml 1700 ml Balance 500 ml -1700 ml Exam HEENT examination; patient's has a C-spine soft collar in place. Tracheostomy in place. Pupils are midsize reactive to light. No neck masses. Pharynx is clear. Patient has good dentition. Pupils are midsize reactive to light. Chest examination; diffuse crackles involving lower lobes bilaterally. Upper lobes are fairly clear. S1-S2 audible, no murmurs. Regular rhythm. Abdomen examination; soft, nondistended. G-tube in place. Bowel sounds audible. Back examination reveals dressing applied over upper posterior thighs as well as sacrum. Extremity exam is; no peripheral edema. 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 Results Result Diagram: 08/23/16 0551 08/23/16 0551 Results 24 hrs Laboratory Tests Test 08/22/16 11:41 08/22/16 17:40 08/23/16 00:34 08/23/16 05:51 Bedside Glucose 123 138 128 White Blood Count 14.8 #H Red Blood Count 2.94 L Hemoglobin 7.7 L Hematocrit 25.2 L Mean Corpuscular Volume 85.7 Mean Corpuscular Hemoglobin 26.2 L Mean Corpuscular Hemoglobin Concent 30.6 L Red Cell Distribution Width 17.6 H Platelet Count 391 Mean Platelet Volume 10.1 Neutrophils % 78.2 H Lymphocytes % 5.4 L Monocytes % 8.2 Eosinophils % 3.0 Basophils % 0.3 Nucleated Red Blood Cells % 0.0 Neutrophils # 11.6 H Lymphocytes # 0.8 Monocytes # 1.2 H Eosinophils # 0.5 Basophils # 0.0 Nucleated Red Blood Cells # 0.0 Prothrombin Time 18.0 H Prothrombin Time Ratio 1.4 INR International Normalized Ratio 1.48 Activated Partial Thromboplast Time 43.4 H Sodium Level 138 Potassium Level 3.1 L Chloride Level 99 Carbon Dioxide Level 29 Anion Gap 13 Blood Urea Nitrogen 47 H Creatinine 0.68 Glucose Level 101 Calcium Level 12.5 H Phosphorus Level 2.9 Magnesium Level 1.9 Test 08/23/16 07:03 Bedside Glucose 115 Medications Medications Current Medications Ondansetron HCl (Zofran Inj) 4 mg Q6H PRN IV NAUSEA AND/OR VOMITING Last administered on 08/15/16 05:11; Admin Dose 4 MG; Start 07/31/16 at 15:00 Morphine Sulfate (morphine) 2 mg Q4H PRN IV SEVERE PAIN LEVEL 7-10 Last administered on 08/20/16 00:32; Admin Dose 2 MG; Start 07/31/16 at 15:00 Magnesium Hydroxide (Milk Of Mag) 30 ml DAILY PRN PO CONSTIPATION; Start at 15:00 Sodium Biphosphate/ Sodium Phosphate (Fleet Enema) 133 ml DAILY PRN IN CONSTIPATION; Start 07/31/16 at 15:00 Hydralazine HCl (Apresoline) 10 mg Q6H PRN IV ELEVATED BLOOD PRESSURE; Start at 15:00 Nitroglycerin (Nitroglycerin (Sl Tab) 0.4 Mg) 1 tab Q5M PRN SL ANGINA; Start at 15:00 Miscellaneous Information 1 ea NOTE XX ; Start 07/31/16 at 16:30 Glucose (Glutose) 15 gm Q15M PRN PO DECREASED GLUCOSE; Start 07/31/16 at 16:30 Glucose (Glutose) 22.5 gm Q15M PRN PO DECREASED GLUCOSE; Start 07/31/16 at 16: 30 Dextrose (D50w Syringe) 25 ml Q15M PRN IV DECREASED GLUCOSE; Start 07/31/16 at 16:30 Dextrose (D50w Syringe) 50 ml Q15M PRN IV DECREASED GLUCOSE; Start 07/31/16 at 16:30 Glucagon (Glucagen) 1 mg Q15M PRN IM DECREASED GLUCOSE; Start 07/31/16 at 16:30 Glucose (Glutose) 15 gm Q15M PRN BUCCAL DECREASED GLUCOSE; Start 07/31/16 at 16 :30 Sodium Hypochlorite (Dakin'S (1/4 Strength)) 1 applic BID IRR Last administered on 08/23/16 10:18; Admin Dose 1 APPLIC; Start 08/01/16 at 21:00 Acetaminophen/ Hydrocodone Bitart ([place] (5/325)) 1 tab Q4H PRN PEG MODERATE PAIN LEVEL 4-6 Last administered on 08/19/16 21:53; Admin Dose 1 TAB; Start 08/02/16 at 00:00 Lorazepam (Ativan) 0.5 mg Q4H PRN IV ANXIETY Last administered on 08/23/16 00: 45; Admin Dose 0.5 MG; Start 08/02/16 at 00:00 Zolpidem Tartrate (Ambien) 10 mg HS PRN PEG INSOMNIA Last administered on 22:53; Admin Dose 10 MG; Start 08/02/16 at 03:30 Fluconazole (Diflucan) 100 mg DAILY PO Last administered on 08/23/16 10:14; Admin Dose 100 MG; Start 08/02/16 at 12:30 Ibuprofen (Motrin) 600 mg Q6H PRN PO PAIN OR TEMP ABOVE 38C Last administered on 08/11/16 21:29; Admin Dose 600 MG; Start 08/02/16 at 15:00 Zinc Sulfate (Zinc Sulfate) 220 mg DAILY GTB Last administered on 08/23/16 10: 22; Admin Dose 220 MG; Start 08/03/16 at 11:30 Multivitamins Therapeutic (Theragran) 1 tab DAILY PO Last administered on 10:13; Admin Dose 1 TAB; Start 08/03/16 at 11:30 Ascorbic Acid (Vitamin C) 500 mg BID GTB Last administered on 08/23/16 10:22; Admin Dose 500 MG; Start 08/03/16 at 11:30 Sodium Hypochlorite (Dakin'S (Dilute 1/40%)) 1 applic BID IRR Last administered on 08/23/16 10:17; Admin Dose 1 APPLIC; Start 08/04/16 at 12:00 Hydromorphone HCl 0.5 mg 0.5 mg Q8H PRN IV PAIN Last administered on 08/23/16 05:14; Admin Dose 0.5 MG; Start 08/04/16 at 12:00 Cefepime HCl (Maxipime 1gm/50 ml (Pmx)) 50 ml @ 100 mls/hr Q12 IVPB Last administered on 08/23/16 10:12; Admin Dose 100 MLS/HR; Start 08/08/16 at 16:00 Levothyroxine Sodium (Synthroid) 25 mcg DAILY@06 PO Last administered on 05:32; Admin Dose 25 MCG; Start 08/11/16 at 06:00 Paroxetine HCl (Paxil) 10 mg DAILY PO Last administered on 08/23/16 10:13; Admin Dose 10 MG; Start 08/11/16 at 21:00 Insulin Aspart (Novolog Insulin Pen) NOVOLOG *MODERATE* ALGORI... Q6 SC Last administered on 08/18/16 12:33; Admin Dose 2 UNIT; Start 08/13/16 at 00:00 Lactobacillus Acidoph/Bulgaricus (Floranex) 1 tab TID GTB Last administered on 08/23/16 10:13; Admin Dose 1 TAB; Start 08/15/16 at 21:30 Metformin HCl (Glucophage) 500 mg Q12 GTB Last administered on 08/22/16 22:05 ; Admin Dose 500 MG; Start 08/15/16 at 21:30 Linezolid (Zyvox) 600 mg BID GTB Last administered on 3/23/17at 10:13; Admin Dose 600 MG; Start 08/15/16 at 21:30 Metronidazole (Flagyl) 500 mg Q8 GTB Last administered on 08/22/16 22:07; Admin Dose 500 MG; Start 08/15/16 at 22:00 Acetaminophen 650 mg 650 mg Q6H PRN GTB PAIN AND OR ELEVATED TEMP Last administered on 08/22/16 22:04; Admin Dose 650 MG; Start 08/15/16 at 21:30 Colistimethate Sodium/Sodium Chloride (Coly-Mycin/NS) 100 ml @ 200 mls/hr Q12 IVPB Last administered on 08/23/16 10:22; Admin Dose 200 MLS/HR; Start at 21:00 Magnesium Oxide (Mag-Ox 400) 400 mg DAILY GTB Last administered on 08/23/16 10 :29; Admin Dose 400 MG; Start 08/20/16 at 09:00 Enoxaparin Sodium (Lovenox) 40 mg DAILY SC Last administered on 08/22/16 10:05 ; Admin Dose 40 MG; Start 08/22/16 at 09:00 Famotidine (Pepcid) 20 mg DAILY GTB Last administered on 08/23/16 10:13; Admin Dose 20 MG; Start 08/22/16 at 09:00 Potassium Chloride (Potassium Chloride Pwd/Soln) 40 meq DAILY GTB Last administered on 08/23/16 10:13; Admin Dose 40 MEQ; Start 08/23/16 at 09:00 ALISSON ARRIOLA Aug 23, 2016 11:18
[2016-08-23] MEDS ORDERED: LIDOCAINE 1% (MDV) 20 ML INJ ONE (11:22)
--- NOTE | 2016-08-23 11:35 | EN ---
Date/Time of Note Date/Time of Note DATE: 08/23/16 TIME: 11:31 Event Note Medicine Medicine Event Note This is a bronchoscopy report. Informed consent was obtained from patient's brother yesterday. Procedure was explained to the family. Date of procedure is 08/23/2016 start time was 11:25 AM finish time was 11:30 AM. Indications patient with persistent severe bilateral pneumonia bronchoscopy to rule out any endobronchial mucous plugging. Patient already was on mechanical ventilation. He was sedated with 0.5 mg Versed intravenously. Topical anesthesia was achieved by instilling 5 mL of 1% lidocaine through the tracheostomy tube. Bronchoscope was introduced via tracheostomy, distal trachea was normal, yana was sharp and well-defined the scope was introduced into the left mainstem bronchus with evaluation of the left upper lobe, lingula, superior segment of the lower lobe and lower lobes, that were essentially patent with very minimal mucus which was only partially obstructing the bronchi, which was suctioned off readily with appearance of normal underlying mucosa. The scope was introduced in the right mainstem bronchus with evaluation of the right upper lobe, bronchus intermedius, superior segment of the lower lobe, middle lobe and lower lobes were all patent and with only minimal mucus which was suctioned off. The scope was then withdrawn. The procedure was well tolerated with stable O2 sat cardiac rhythm and airway pressures. Specimen has been sent for Gram stain culture. ALISSON ARRIOLA Aug 23, 2016 11:35
--- NOTE | 2016-08-23 13:48 | CONS ---
Date/Time of Note Date/Time of Note DATE: 08/23/16 TIME: 13:45 Assessment/Plan Assessment/Plan Chief Complaint/Hosp Course SUBJECTIVE: No acute changes, s/p bronchoscopy in am, nad MICROBIOLOGY: Repeat blood and urine cultures negative. INDWELLINGS: The patient has trach, PEG, Oliveira, left chest Port-A-Cath. ANTIMICROBIALS: 1. Colistin. 2. Flagyl. 3. Zyvox. PHYSICAL EXAMINATION: GENERAL: This is a fragile, chronically ill-appearing, middle-aged man who is awake, in no distress. HEENT: Head atraumatic, normocephalic. Sclerae anicteric. Buccal mucosa dry. The patient has white thrush on his tongue. NECK: Supple. Tracheostomy present. CHEST: Rise symmetrical. Breath sounds clear, diminished at the bases. HEART: S1, S2. ABDOMEN: Soft, bowel sounds present. EXTREMITIES: Bilateral extremities edema. ASSESSMENT: 1. Persistent fevers etiology could be secondary to multiple wounds. 2. Resolving pneumonia. 3. Right chest Port-A-Cath. 4. Chronic respiratory failure. 5. Quadriplegia. 6. History of Clostridium difficile colitis. 7. Status post urinary tract infection. PLAN: The patient remain stable. Continue antibiotics, local wound care DW staff Problems: Consultation Date/Type/Reason Admit Date/Time Jul 31, 2016 at 14:20 Initial Consult Date 08/02/16 Type of Consultation: id Exam/Review of Systems Vital Signs Vitals Vital Signs Date Time Temp Pulse Resp B/P Pulse Ox O2 Delivery O2 Flow Rate FiO2 08/23/16 12:52 98.3 99 18 101/58 100 08/23/16 08:49 100 08/21/16 00:30 Mechanical Ventilator Intake and Output 08/22/16 08/22/16 08/23/16 15:00 23:00 07:00 Intake Total 1400 ml Output Total 900 ml 1700 ml Balance 500 ml -1700 ml Results Result Diagram: 08/23/16 0551 08/23/16 0551 Results 24 hrs Laboratory Tests Test 08/22/16 17:40 08/23/16 00:34 08/23/16 05:51 08/23/16 07:03 Bedside Glucose 138 128 115 White Blood Count 14.8 #H Red Blood Count 2.94 L Hemoglobin 7.7 L Hematocrit 25.2 L Mean Corpuscular Volume 85.7 Mean Corpuscular Hemoglobin 26.2 L Mean Corpuscular Hemoglobin Concent 30.6 L Red Cell Distribution Width 17.6 H Platelet Count 391 Mean Platelet Volume 10.1 Neutrophils % 78.2 H Lymphocytes % 5.4 L Monocytes % 8.2 Eosinophils % 3.0 Basophils % 0.3 Nucleated Red Blood Cells % 0.0 Neutrophils # 11.6 H Lymphocytes # 0.8 Monocytes # 1.2 H Eosinophils # 0.5 Basophils # 0.0 Nucleated Red Blood Cells # 0.0 Prothrombin Time 18.0 H Prothrombin Time Ratio 1.4 INR International Normalized Ratio 1.48 Activated Partial Thromboplast Time 43.4 H Sodium Level 138 Potassium Level 3.1 L Chloride Level 99 Carbon Dioxide Level 29 Anion Gap 13 Blood Urea Nitrogen 47 H Creatinine 0.68 Glucose Level 101 Calcium Level 12.5 H Phosphorus Level 2.9 Magnesium Level 1.9 Test 08/23/16 12:06 Bedside Glucose 112 Medications Medications Current Medications Ondansetron HCl (Zofran Inj) 4 mg Q6H PRN IV NAUSEA AND/OR VOMITING Last administered on 08/15/16 05:11; Admin Dose 4 MG; Start 07/31/16 at 15:00 Morphine Sulfate (morphine) 2 mg Q4H PRN IV SEVERE PAIN LEVEL 7-10 Last administered on 08/20/16 00:32; Admin Dose 2 MG; Start 07/31/16 at 15:00 Magnesium Hydroxide (Milk Of Mag) 30 ml DAILY PRN PO CONSTIPATION; Start at 15:00 Sodium Biphosphate/ Sodium Phosphate (Fleet Enema) 133 ml DAILY PRN [place] CONSTIPATION; Start 07/31/16 at 15:00 Hydralazine HCl (Apresoline) 10 mg Q6H PRN IV ELEVATED BLOOD PRESSURE; Start at 15:00 Nitroglycerin (Nitroglycerin (Sl Tab) 0.4 Mg) 1 tab Q5M PRN SL ANGINA; Start at 15:00 Miscellaneous Information 1 ea NOTE XX ; Start 07/31/16 at 16:30 Glucose (Glutose) 15 gm Q15M PRN PO DECREASED GLUCOSE; Start 07/31/16 at 16:30 Glucose (Glutose) 22.5 gm Q15M PRN PO DECREASED GLUCOSE; Start 07/31/16 at 16: 30 Dextrose (D50w Syringe) 25 ml Q15M PRN IV DECREASED GLUCOSE; Start 07/31/16 at 16:30 Dextrose (D50w Syringe) 50 ml Q15M PRN IV DECREASED GLUCOSE; Start 07/31/16 at 16:30 Glucagon (Glucagen) 1 mg Q15M PRN IM DECREASED GLUCOSE; Start 07/31/16 at 16:30 Glucose (Glutose) 15 gm Q15M PRN BUCCAL DECREASED GLUCOSE; Start 07/31/16 at 16 :30 Sodium Hypochlorite (Dakin'S (1/4 Strength)) 1 applic BID IRR Last administered on 08/23/16 10:18; Admin Dose 1 APPLIC; Start 08/01/16 at 21:00 Acetaminophen/ Hydrocodone Bitart ([place] (5/325)) 1 tab Q4H PRN PEG MODERATE PAIN LEVEL 4-6 Last administered on 08/19/16 21:53; Admin Dose 1 TAB; Start 08/02/16 at 00:00 Lorazepam (Ativan) 0.5 mg Q4H PRN IV ANXIETY Last administered on 08/23/16 11: 17; Admin Dose 0.5 MG; Start 08/02/16 at 00:00 Zolpidem Tartrate (Ambien) 10 mg HS PRN PEG INSOMNIA Last administered on 22:53; Admin Dose 10 MG; Start 08/02/16 at 03:30 Fluconazole (Diflucan) 100 mg DAILY PO Last administered on 08/23/16 10:14; Admin Dose 100 MG; Start 08/02/16 at 12:30 Ibuprofen (Motrin) 600 mg Q6H PRN PO PAIN OR TEMP ABOVE 38C Last administered on 08/11/16 21:29; Admin Dose 600 MG; Start 08/02/16 at 15:00 Zinc Sulfate (Zinc Sulfate) 220 mg DAILY GTB Last administered on 08/23/16 10: 22; Admin Dose 220 MG; Start 08/03/16 at 11:30 Multivitamins Therapeutic (Theragran) 1 tab DAILY PO Last administered on 10:13; Admin Dose 1 TAB; Start 08/03/16 at 11:30 Ascorbic Acid (Vitamin C) 500 mg BID GTB Last administered on 08/23/16 10:22; Admin Dose 500 MG; Start 08/03/16 at 11:30 Sodium Hypochlorite (Dakin'S (Dilute 1/40%)) 1 applic BID IRR Last administered on 08/23/16 10:17; Admin Dose 1 APPLIC; Start 08/04/16 at 12:00 Hydromorphone HCl (Dilaudid) 0.5 mg Q8H PRN IV PAIN Last administered on 05:14; Admin Dose 0.5 MG; Start 08/04/16 at 12:00 Levothyroxine Sodium (Synthroid) 25 mcg DAILY@06 PO Last administered on 05:32; Admin Dose 25 MCG; Start 08/11/16 at 06:00 Paroxetine HCl (Paxil) 10 mg DAILY PO Last administered on 08/23/16 10:13; Admin Dose 10 MG; Start 08/11/16 at 21:00 Insulin Aspart (Novolog Insulin Pen) NOVOLOG *MODERATE* ALGORI... Q6 SC Last administered on 08/18/16 12:33; Admin Dose 2 UNIT; Start 08/13/16 at 00:00 Lactobacillus Acidoph/Bulgaricus (Floranex) 1 tab TID GTB Last administered on 08/23/16 10:13; Admin Dose 1 TAB; Start 08/15/16 at 21:30 Metformin HCl (Glucophage) 500 mg Q12 GTB Last administered on 08/22/16 22:05 ; Admin Dose 500 MG; Start 08/15/16 at 21:30 Linezolid (Zyvox) 600 mg BID GTB Last administered on 08/23/16 10:13; Admin Dose 600 MG; Start 08/15/16 at 21:30 Metronidazole (Flagyl) 500 mg Q8 GTB Last administered on 08/22/16 22:07; Admin Dose 500 MG; Start 08/15/16 at 22:00 Acetaminophen 650 mg 650 mg Q6H PRN GTB PAIN AND OR ELEVATED TEMP Last administered on 08/22/16 22:04; Admin Dose 650 MG; Start 08/15/16 at 21:30 Colistimethate Sodium/Sodium Chloride (Coly-Mycin/NS) 100 ml @ 200 mls/hr Q12 IVPB Last administered on 08/23/16 10:22; Admin Dose 200 MLS/HR; Start at 21:00 Magnesium Oxide (Mag-Ox 400) 400 mg DAILY GTB Last administered on 08/23/16 10 :29; Admin Dose 400 MG; Start 08/20/16 at 09:00 Enoxaparin Sodium (Lovenox) 40 mg DAILY SC Last administered on 08/22/16 10:05 ; Admin Dose 40 MG; Start 08/22/16 at 09:00 Famotidine (Pepcid) 20 mg DAILY GTB Last administered on 08/23/16 10:13; Admin Dose 20 MG; Start 08/22/16 at 09:00 Potassium Chloride (Potassium Chloride Pwd/Soln) 40 meq DAILY GTB Last administered on 08/23/16 10:13; Admin Dose 40 MEQ; Start 08/23/16 at 09:00 LESLIE FERRARO NP Aug 23, 2016 13:48
--- NOTE | 2016-08-23 15:42 | PN ---
Date/Time of Note Date/Time of Note DATE: 08/23/16 TIME: 15:39 Assessment/Plan VTE Prophylaxis VTE Prophylaxis Intervention: LMWH Lines/Catheters IV C[facility] Type ([facility] Saline Lock Urinary Cath still in place: Yes Reason Cath still needed: pres ulcer contaminated by urine Assessment/Plan Chief Complaint/Hosp Course S: 08/21-Wants to try speaking valve. 08/22-still having fever. tolerating feeds. no diarrhea. 08/23- sp bronch-essentially unremarkable O: ST/ Tm 100.4 PE Trach c/d/i. no pallor/ adenopathy Reg Dimin bs bilat Bs + nt nd, no r/r/g. PEG c/d/i Ext- hypotonia. edema A/P 1) Sepsis; HCAP likely; stable, but failing to respond/resolved. sp bronch/atb 2) Recurrent sepsis: Elev wbc/fever/hypotension; line infection? Oliveira changed. 3) Decubitus wound/ MDR organisms. Diverting colostomy and debridement discussed-quality of life will not improve post therapy. Debrid if recommended by ID, but may not be feasible while on vent. 4) Quadraplegia; poor prognosis; palliative care eval 5) Ho C2 fracture 6) VDRF; cont vent 7) Ho c diff 8) Chr CHF/ systolic? 9) Past tobacco 10) Malnutrition; cont peg/feeds. 11) Elevated Ca; Calcium dced. Problems: Exam/Review of Systems Vital Signs Vitals Vital Signs Date Time Temp Pulse Resp B/P Pulse Ox O2 Delivery O2 Flow Rate FiO2 08/23/16 15:29 102 24 100 90 08/23/16 12:52 98.3 101/58 08/21/16 00:30 Mechanical Ventilator Intake and Output 08/22/16 08/22/16 08/23/16 15:00 23:00 07:00 Intake Total 1400 ml Output Total 900 ml 1700 ml Balance 500 ml -1700 ml Results Result Diagram: 08/23/16 0551 08/23/16 0551 Results 24 hrs Laboratory Tests Test 08/22/16 17:40 08/23/16 00:34 08/23/16 05:51 08/23/16 07:03 Bedside Glucose 138 128 115 White Blood Count 14.8 #H Red Blood Count 2.94 L Hemoglobin 7.7 L Hematocrit 25.2 L Mean Corpuscular Volume 85.7 Mean Corpuscular Hemoglobin 26.2 L Mean Corpuscular Hemoglobin Concent 30.6 L Red Cell Distribution Width 17.6 H Platelet Count 391 Mean Platelet Volume 10.1 Neutrophils % 78.2 H Lymphocytes % 5.4 L Monocytes % 8.2 Eosinophils % 3.0 Basophils % 0.3 Nucleated Red Blood Cells % 0.0 Neutrophils # 11.6 H Lymphocytes # 0.8 Monocytes # 1.2 H Eosinophils # 0.5 Basophils # 0.0 Nucleated Red Blood Cells # 0.0 Prothrombin Time 18.0 H Prothrombin Time Ratio 1.4 INR International Normalized Ratio 1.48 Activated Partial Thromboplast Time 43.4 H Sodium Level 138 Potassium Level 3.1 L Chloride Level 99 Carbon Dioxide Level 29 Anion Gap 13 Blood Urea Nitrogen 47 H Creatinine 0.68 Glucose Level 101 Calcium Level 12.5 H Phosphorus Level 2.9 Magnesium Level 1.9 Test 08/23/16 12:06 Bedside Glucose 112 Medications Medications Current Medications Ondansetron HCl (Zofran Inj) 4 mg Q6H PRN IV NAUSEA AND/OR VOMITING Last administered on 08/15/16 05:11; Admin Dose 4 MG; Start 07/31/16 at 15:00 Morphine Sulfate (morphine) 2 mg Q4H PRN IV SEVERE PAIN LEVEL 7-10 Last administered on 08/20/16 00:32; Admin Dose 2 MG; Start 07/31/16 at 15:00 Magnesium Hydroxide (Milk Of Mag) 30 ml DAILY PRN PO CONSTIPATION; Start at 15:00 Sodium Biphosphate/ Sodium Phosphate (Fleet Enema) 133 ml DAILY PRN [place] CONSTIPATION; Start 07/31/16 at 15:00 Hydralazine HCl (Apresoline) 10 mg Q6H PRN IV ELEVATED BLOOD PRESSURE; Start at 15:00 Nitroglycerin (Nitroglycerin (Sl Tab) 0.4 Mg) 1 tab Q5M PRN SL ANGINA; Start at 15:00 Miscellaneous Information 1 ea NOTE XX ; Start 07/31/16 at 16:30 Glucose (Glutose) 15 gm Q15M PRN PO DECREASED GLUCOSE; Start 07/31/16 at 16:30 Glucose (Glutose) 22.5 gm Q15M PRN PO DECREASED GLUCOSE; Start 07/31/16 at 16: 30 Dextrose (D50w Syringe) 25 ml Q15M PRN IV DECREASED GLUCOSE; Start 07/31/16 at 16:30 Dextrose (D50w Syringe) 50 ml Q15M PRN IV DECREASED GLUCOSE; Start 07/31/16 at 16:30 Glucagon (Glucagen) 1 mg Q15M PRN IM DECREASED GLUCOSE; Start 07/31/16 at 16:30 Glucose (Glutose) 15 gm Q15M PRN BUCCAL DECREASED GLUCOSE; Start 07/31/16 at 16 :30 Sodium Hypochlorite (Dakin'S (1/4 Strength)) 1 applic BID IRR Last administered on 08/23/16 10:18; Admin Dose 1 APPLIC; Start 08/01/16 at 21:00 Acetaminophen/ Hydrocodone Bitart ([place] (5/325)) 1 tab Q4H PRN PEG MODERATE PAIN LEVEL 4-6 Last administered on 08/19/16 21:53; Admin Dose 1 TAB; Start 08/02/16 at 00:00 Lorazepam (Ativan) 0.5 mg Q4H PRN IV ANXIETY Last administered on 08/23/16 11: 17; Admin Dose 0.5 MG; Start 08/02/16 at 00:00 Zolpidem Tartrate (Ambien) 10 mg HS PRN PEG INSOMNIA Last administered on 22:53; Admin Dose 10 MG; Start 08/02/16 at 03:30 Fluconazole (Diflucan) 100 mg DAILY PO Last administered on 08/23/16 10:14; Admin Dose 100 MG; Start 08/02/16 at 12:30 Ibuprofen (Motrin) 600 mg Q6H PRN PO PAIN OR TEMP ABOVE 38C Last administered on 08/11/16 21:29; Admin Dose 600 MG; Start 08/02/16 at 15:00 Zinc Sulfate (Zinc Sulfate) 220 mg DAILY GTB Last administered on 08/23/16 10: 22; Admin Dose 220 MG; Start 08/03/16 at 11:30 Multivitamins Therapeutic (Theragran) 1 tab DAILY PO Last administered on 10:13; Admin Dose 1 TAB; Start 08/03/16 at 11:30 Ascorbic Acid (Vitamin C) 500 mg BID GTB Last administered on 08/23/16 10:22; Admin Dose 500 MG; Start 08/03/16 at 11:30 Sodium Hypochlorite (Dakin'S (Dilute 1/40%)) 1 applic BID IRR Last administered on 08/23/16 10:17; Admin Dose 1 APPLIC; Start 08/04/16 at 12:00 Hydromorphone HCl (Dilaudid) 0.5 mg Q8H PRN IV PAIN Last administered on 05:14; Admin Dose 0.5 MG; Start 08/04/16 at 12:00 Levothyroxine Sodium (Synthroid) 25 mcg DAILY@06 PO Last administered on 05:32; Admin Dose 25 MCG; Start 08/11/16 at 06:00 Paroxetine HCl (Paxil) 10 mg DAILY PO Last administered on 08/23/16 10:13; Admin Dose 10 MG; Start 08/11/16 at 21:00 Insulin Aspart (Novolog Insulin Pen) NOVOLOG *MODERATE* ALGORI... Q6 SC Last administered on 08/18/16 12:33; Admin Dose 2 UNIT; Start 08/13/16 at 00:00 Lactobacillus Acidoph/Bulgaricus (Floranex) 1 tab TID GTB Last administered on 08/23/16 10:13; Admin Dose 1 TAB; Start 08/15/16 at 21:30 Metformin HCl (Glucophage) 500 mg Q12 GTB Last administered on 08/22/16 22:05 ; Admin Dose 500 MG; Start 08/15/16 at 21:30 Linezolid (Zyvox) 600 mg BID GTB Last administered on 08/23/16 10:13; Admin Dose 600 MG; Start 08/15/16 at 21:30 Metronidazole (Flagyl) 500 mg Q8 GTB Last administered on 08/22/16 22:07; Admin Dose 500 MG; Start 08/15/16 at 22:00 Acetaminophen 650 mg 650 mg Q6H PRN GTB PAIN AND OR ELEVATED TEMP Last administered on 08/22/16 22:04; Admin Dose 650 MG; Start 08/15/16 at 21:30 Colistimethate Sodium/Sodium Chloride (Coly-Mycin/NS) 100 ml @ 200 mls/hr Q12 IVPB Last administered on 08/23/16 10:22; Admin Dose 200 MLS/HR; Start at 21:00 Magnesium Oxide (Mag-Ox 400) 400 mg DAILY GTB Last administered on 08/23/16 10 :29; Admin Dose 400 MG; Start 08/20/16 at 09:00 Enoxaparin Sodium (Lovenox) 40 mg DAILY SC Last administered on 08/22/16 10:05 ; Admin Dose 40 MG; Start 08/22/16 at 09:00 Famotidine (Pepcid) 20 mg DAILY GTB Last administered on 08/23/16 10:13; Admin Dose 20 MG; Start 08/22/16 at 09:00 Potassium Chloride (Potassium Chloride Pwd/Soln) 40 meq DAILY GTB Last administered on 08/23/16 10:13; Admin Dose 40 MEQ; Start 08/23/16 at 09:00 MARY BETH HOUSTON MD Aug 23, 2016 15:42
[2016-08-23] MEDS ORDERED: SOD CHLORIDE 0.9% 500 ML IV ONE (16:00)
[2016-08-23] MEDS: ACETAMINOPHEN 325 MG TAB GTB PRN (19:02)
[2016-08-23] MEDS: POTASSIUM CHLORIDE 20 MEQ POWDER FOR ORAL SOLN GTB SCH (22:20)
[2016-08-24] VITALS (25 sets, daily range): BP systolic 84–125; BP diastolic 51–60; PULSE 108–133; RESP 19–24
[2016-08-24] MEDS ORDERED: SOD CHLORIDE 0.9% 1,000 ML IV ONE (04:30)
[2016-08-24] MEDS: SOD CHLORIDE 0.9% 1,000 ML IV SCH ×2 (05:00→14:07)
[2016-08-24] MEDS: INSULIN ASPART [NOVOLOG] 3 ML PEN SC SCH ×4 (06:00→18:00)
[2016-08-24] MEDS: LEVOTHYROXINE 25 MCG TAB PO SCH (06:03)
[2016-08-24] MEDS: metroNIDAZOLE 500 MG TAB GTB SCH ×3 (06:07→21:37)
[2016-08-24] MEDS: ACETAMINOPHEN 325 MG TAB GTB PRN (06:34)
[2016-08-24 07:39] LABS: ADD SCAN DIFF NO
[2016-08-24] MEDS: ALBUTEROL HFA 8 GM INHALER INH SCH ×2 (07:39→15:20)
[2016-08-24 07:46] LABS: ABNORMAL IP MESSAGE 1; BASOPHIL # 0.1 10^3/ul (0.0-0.1); BASOPHILS % 0.3 % (0.0-2.0); EOSINOPHILS # 0.4 10^3/ul (0.0-0.5); EOSINOPHILS % 1.7 % (0.0-7.0); HEMOGLOBIN 8.1 g/dl (14.0-18.0); LYMPHOCYTES # 0.9 10^3/ul (0.8-2.9); LYMPHOCYTES % 3.5 % (15.0-51.0); MEAN CORPUSCULAR HEMOGLOBIN 26.3 pg (29.0-33.0); MEAN CORPUSCULAR VOLUME 87.7 fl (82.0-101.0); MEAN PLATELET VOLUME 10.3 fl (7.4-10.4); MONOCYTE # 1.7 10^3/ul (0.3-0.9); MONOCYTES % 6.8 % (0.0-11.0); NEUTROPHILS % 83.6 % (39.0-77.0); PLATELET COUNT 422 10^3/UL (140-415); RED BLOOD COUNT 3.08 10^6/ul (4.70-6.10); RED CELL DISTRIBUTION WIDTH 17.5 % (11.5-14.5); WHITE BLOOD COUNT 25.1 10^3/ul (4.8-10.8)
[2016-08-24 07:57] LABS: POTASSIUM 3.5 mmol/L (3.5-5.1)
[2016-08-24 08:00] LABS: CREATININE 0.8 mg/dl (0.61-1.24)
[2016-08-24 08:01] LABS: CALCIUM 12.7 mg/dl (8.4-10.2)
[2016-08-24] MEDS: ZYVOX 600 MG TAB GTB SCH ×2 (09:55→21:37)
[2016-08-24] MEDS: FLUCONAZOLE 100 MG TAB PO SCH (09:55)
[2016-08-24] MEDS: LACTOBACILLUS CHEW TAB GTB SCH ×3 (09:55→21:37)
[2016-08-24] MEDS: POTASSIUM CHLORIDE 20 MEQ POWDER FOR ORAL SOLN GTB SCH ×2 (09:55→21:37)
[2016-08-24] MEDS: ASCORBIC ACID 500 MG TAB GTB SCH ×2 (09:55→21:38)
[2016-08-24] MEDS: MULTIVITAMINS THERAPEUTIC TAB PO SCH (09:56)
[2016-08-24] MEDS: metFORMIN 500 MG TAB GTB SCH ×2 (09:56→21:38)
[2016-08-24] MEDS: MAGNESIUM OXIDE 400 MG TAB GTB SCH (09:56)
[2016-08-24] MEDS: PAROXETINE 10 MG TAB PO SCH (09:56)
[2016-08-24] MEDS: ZINC SULFATE 220 MG CAP GTB SCH (09:56)
[2016-08-24] MEDS: FAMOTIDINE 20 MG TAB GTB SCH (09:56)
[2016-08-24] MEDS: SODIUM HYPOCHLORITE 1/40% 1L IRRIG IRR SCH ×2 (09:57→10:00)
[2016-08-24] MEDS: COLISTIMETHATE 150 MG in SOD CHLORIDE 0.9% 100 ML IVPB SCH ×2 (09:57→21:33)
[2016-08-24] MEDS: ENOXAPARIN 40 MG/0.4 ML SYG SC SCH (09:59)
[2016-08-24] MEDS: SODIUM HYPOCHLORITE 0.125% 473 ML BTL IRR SCH ×2 (10:00→21:39)
[2016-08-24] MEDS: LORAZEPAM 2 MG INJ IV PRN (10:45)
--- NOTE | 2016-08-24 11:50 | CONS ---
Date/Time of Note Date/Time of Note DATE: 08/24/16 TIME: 11:47 Assessment/Plan Assessment/Plan Additional Assessment/Plan Ventilator settings; AC of 24, tidal volume 500, PEEP of 5, 60% FiO2. Assessment recommendations; 1. Patient admitted for severe sepsis which is from severe bilateral pneumonia as well as multiple sacral decubitus as well as hip ulcers. 2. Chronic respiratory failure due to C2 injury. 3. Systolic dysfunction. 4. Status post bronchoscopy yesterday with essentially negative findings. Continue current supportive care. Prognosis appears quite poor. Consultation Date/Type/Reason Admit Date/Time Jul 31, 2016 at 14:20 Initial Consult Date 08/02/16 Type of Consultation: Pulmonary/critical care 24 HR Interval Summary Free Text/Dictation Patient condition remains tenuous at best. Patient is getting mildly hypotensive. As well as tachycardic. He is awake and alert. General exam; young male, on ventilator via tracheostomy. Exam/Review of Systems Vital Signs Vitals Vital Signs Date Time Temp Pulse Resp B/P Pulse Ox O2 Delivery O2 Flow Rate FiO2 08/24/16 11:13 133 08/24/16 10:45 24 99 60 08/24/16 07:42 98.1 125/60 08/24/16 05:46 Mechanical Ventilator Intake and Output 08/23/16 08/23/16 08/24/16 15:00 23:00 07:00 Intake Total 500 ml Output Total 1100 ml 1600 ml Balance -600 ml -1600 ml Exam HEENT exam; a colostomy in place. C spine soft collar in place. Pupils are midsize. Pharynx is clear. Patient has good dentition. No neck masses. Chest examination; diffuse crackles bilaterally. S1-S2 audible no murmurs tachycardic regular rhythm. Abdomen exam is; soft, G-tube in place. Nondistended. Bowel sounds audible. Back examination reveals dressing applied over sacral as well as upper posterior thighs. Extremity exam is; no peripheral edema. STACK MATCHER examination a micro patient stable quadriplegia. Results Result Diagram: 08/24/16 0605 08/24/16 0605 Results 24 hrs Laboratory Tests Test 08/23/16 12:06 08/23/16 17:47 08/23/16 23:45 08/24/16 06:05 Bedside Glucose 112 105 98 White Blood Count 25.1 #H Red Blood Count 3.08 L Hemoglobin 8.1 L Hematocrit 27.0 L Mean Corpuscular Volume 87.7 Mean Corpuscular Hemoglobin 26.3 L Mean Corpuscular Hemoglobin Concent 30.0 L Red Cell Distribution Width 17.5 H Platelet Count 422 H Mean Platelet Volume 10.3 Neutrophils % 83.6 H Lymphocytes % 3.5 L Monocytes % 6.8 Eosinophils % 1.7 Basophils % 0.3 Nucleated Red Blood Cells % 0.0 Neutrophils # 21.0 H Lymphocytes # 0.9 Monocytes # 1.7 H Eosinophils # 0.4 Basophils # 0.1 Nucleated Red Blood Cells # 0.0 Sodium Level 142 Potassium Level 3.5 Chloride Level 102 Carbon Dioxide Level 28 Anion Gap 16 Blood Urea Nitrogen 42 H Creatinine 0.80 Glucose Level 83 Calcium Level 12.7 H Test 08/24/16 06:19 08/24/16 11:40 Bedside Glucose 94 114 Medications Medications Current Medications Ondansetron HCl (Zofran Inj) 4 mg Q6H PRN IV NAUSEA AND/OR VOMITING Last administered on 08/15/16 05:11; Admin Dose 4 MG; Start 07/31/16 at 15:00 Morphine Sulfate (morphine) 2 mg Q4H PRN IV SEVERE PAIN LEVEL 7-10 Last administered on 08/20/16 00:32; Admin Dose 2 MG; Start 07/31/16 at 15:00 Magnesium Hydroxide (Milk Of Mag) 30 ml DAILY PRN PO CONSTIPATION; Start at 15:00 Sodium Biphosphate/ Sodium Phosphate (Fleet Enema) 133 ml DAILY PRN [place] CONSTIPATION; Start 07/31/16 at 15:00 Hydralazine HCl (Apresoline) 10 mg Q6H PRN IV ELEVATED BLOOD PRESSURE; Start at 15:00 Nitroglycerin (Nitroglycerin (Sl Tab) 0.4 Mg) 1 tab Q5M PRN SL ANGINA; Start at 15:00 Miscellaneous Information 1 ea NOTE XX ; Start 07/31/16 at 16:30 Glucose (Glutose) 15 gm Q15M PRN PO DECREASED GLUCOSE; Start 07/31/16 at 16:30 Glucose (Glutose) 22.5 gm Q15M PRN PO DECREASED GLUCOSE; Start 07/31/16 at 16: 30 Dextrose (D50w Syringe) 25 ml Q15M PRN IV DECREASED GLUCOSE; Start 07/31/16 at 16:30 Dextrose (D50w Syringe) 50 ml Q15M PRN IV DECREASED GLUCOSE; Start 07/31/16 at 16:30 Glucagon (Glucagen) 1 mg Q15M PRN IM DECREASED GLUCOSE; Start 07/31/16 at 16:30 Glucose (Glutose) 15 gm Q15M PRN BUCCAL DECREASED GLUCOSE; Start 07/31/16 at 16 :30 Sodium Hypochlorite (Dakin'S (1/4 Strength)) 1 applic BID IRR Last administered on 08/24/16 10:00; Admin Dose 1 APPLIC; Start 08/01/16 at 21:00 Acetaminophen/ Hydrocodone Bitart ([place] (5/325)) 1 tab Q4H PRN PEG MODERATE PAIN LEVEL 4-6 Last administered on 08/19/16 21:53; Admin Dose 1 TAB; Start 08/02/16 at 00:00 Lorazepam (Ativan) 0.5 mg Q4H PRN IV ANXIETY Last administered on 08/24/16 10: 45; Admin Dose 0.5 MG; Start 08/02/16 at 00:00 Zolpidem Tartrate (Ambien) 10 mg HS PRN PEG INSOMNIA Last administered on 22:53; Admin Dose 10 MG; Start 08/02/16 at 03:30 Fluconazole (Diflucan) 100 mg DAILY PO Last administered on 08/24/16 09:55; Admin Dose 100 MG; Start 08/02/16 at 12:30 Ibuprofen (Motrin) 600 mg Q6H PRN PO PAIN OR TEMP ABOVE 38C Last administered on 08/11/16 21:29; Admin Dose 600 MG; Start 08/02/16 at 15:00 Zinc Sulfate (Zinc Sulfate) 220 mg DAILY GTB Last administered on 08/24/16 09: 56; Admin Dose 220 MG; Start 08/03/16 at 11:30 Multivitamins Therapeutic (Theragran) 1 tab DAILY PO Last administered on 09:56; Admin Dose 1 TAB; Start 08/03/16 at 11:30 Ascorbic Acid (Vitamin C) 500 mg BID GTB Last administered on 08/24/16 09:55; Admin Dose 500 MG; Start 08/03/16 at 11:30 Sodium Hypochlorite (Dakin'S (Dilute 1/40%)) 1 applic BID IRR Last administered on 08/24/16 10:00; Admin Dose 1 APPLIC; Start 08/04/16 at 12:00 Hydromorphone HCl (Dilaudid) 0.5 mg Q8H PRN IV PAIN Last administered on 16:06; Admin Dose 0.5 MG; Start 08/04/16 at 12:00 Levothyroxine Sodium (Synthroid) 25 mcg DAILY@06 PO Last administered on 06:03; Admin Dose 25 MCG; Start 08/11/16 at 06:00 Paroxetine HCl (Paxil) 10 mg DAILY PO Last administered on 08/24/16 09:56; Admin Dose 10 MG; Start 08/11/16 at 21:00 Insulin Aspart (Novolog Insulin Pen) NOVOLOG *MODERATE* ALGORI... Q6 SC Last administered on 08/18/16 12:33; Admin Dose 2 UNIT; Start 08/13/16 at 00:00 Lactobacillus Acidoph/Bulgaricus (Floranex) 1 tab TID GTB Last administered on 08/24/16 09:55; Admin Dose 1 TAB; Start 08/15/16 at 21:30 Metformin HCl (Glucophage) 500 mg Q12 GTB Last administered on 08/24/16 09:56 ; Admin Dose 500 MG; Start 08/15/16 at 21:30 Linezolid (Zyvox) 600 mg BID GTB Last administered on 08/24/16 09:55; Admin Dose 600 MG; Start 08/15/16 at 21:30 Metronidazole (Flagyl) 500 mg Q8 GTB Last administered on 08/24/16 06:07; Admin Dose 500 MG; Start 08/15/16 at 22:00 Acetaminophen 650 mg 650 mg Q6H PRN GTB PAIN AND OR ELEVATED TEMP Last administered on 08/24/16 06:34; Admin Dose 650 MG; Start 08/15/16 at 21:30 Colistimethate Sodium/Sodium Chloride (Coly-Mycin/NS) 100 ml @ 200 mls/hr Q12 IVPB Last administered on 08/24/16 09:57; Admin Dose 200 MLS/HR; Start at 21:00 Magnesium Oxide (Mag-Ox 400) 400 mg DAILY GTB Last administered on 08/24/16 09 :56; Admin Dose 400 MG; Start 08/20/16 at 09:00 Enoxaparin Sodium (Lovenox) 40 mg DAILY SC Last administered on 08/24/16 09:59 ; Admin Dose 40 MG; Start 08/22/16 at 09:00 Famotidine (Pepcid) 20 mg DAILY GTB Last administered on 08/24/16 09:56; Admin Dose 20 MG; Start 08/22/16 at 09:00 Potassium Chloride 40 meq 40 meq BID GTB Last administered on 08/24/16 09:55; Admin Dose 40 MEQ; Start 08/23/16 at 21:00 Sodium Chloride (NS) 1,000 ml @ 125 mls/hr Q8H IV Last administered on 05:00; Admin Dose 125 MLS/HR; Start 08/24/16 at 05:00 ALISSON ARRIOLA Aug 24, 2016 11:50
--- NOTE | 2016-08-24 12:45 | CONS ---
Date/Time of Note Date/Time of Note DATE: 08/24/16 TIME: 12:40 Assessment/Plan Assessment/Plan Chief Complaint/Hosp Course SUBJECTIVE: No acute changes, spiking fevers, nad MICROBIOLOGY: Repeat blood and urine cultures negative. INDWELLINGS: The patient has trach, PEG, Oliveira, left chest Port-A-Cath. ANTIMICROBIALS: 1. Colistin. 2. Flagyl. 3. Zyvox. 4. Diflucan PHYSICAL EXAMINATION: GENERAL: This is a fragile, chronically ill-appearing, middle-aged man who is awake, in no distress. HEENT: Head atraumatic, normocephalic. Sclerae anicteric. Buccal mucosa dry. The patient has white thrush on his tongue. NECK: Supple. Tracheostomy present. CHEST: Rise symmetrical. Breath sounds clear, diminished at the bases. HEART: S1, S2. ABDOMEN: Soft, bowel sounds present. EXTREMITIES: Bilateral extremities edema. ASSESSMENT: 1. Persistent fevers ==> ?infected line 2. Resolving pneumonia==> s/p bronchoscopy 08/23. 3. Right chest Port-A-Cath. 4. Chronic respiratory failure. 5. Quadriplegia. 6. History of Clostridium difficile colitis. 7. Status post urinary tract infection. 8. Multiple wounds PLAN: Clinically unchanged, with ongoing fevers, WBC scan was negative, repeat bld and urine cx negative, s/p bronchoscopy yesterday==> not impressive per dw Dr Cheema. Pt had been on abx over 2 weeks, will consider portacath dc, pending BAL cx DW staff Problems: Consultation Date/Type/Reason Admit Date/Time Jul 31, 2016 at 14:20 Initial Consult Date 08/02/16 Type of Consultation: ID Exam/Review of Systems Vital Signs Vitals Vital Signs Date Time Temp Pulse Resp B/P Pulse Ox O2 Delivery O2 Flow Rate FiO2 08/24/16 12:02 98.9 130 19 93/52 95 08/24/16 10:45 60 08/24/16 05:46 Mechanical Ventilator Intake and Output 08/23/16 08/23/16 08/24/16 15:00 23:00 07:00 Intake Total 500 ml Output Total 1100 ml 1600 ml Balance -600 ml -1600 ml Results Result Diagram: 08/24/1660408/24/16 0605 Results 24 hrs Laboratory Tests Test 08/23/16 17:47 08/23/16 23:45 08/24/16 06:05 08/24/16 06:19 Bedside Glucose 105 98 94 White Blood Count 25.1 #H Red Blood Count 3.08 L Hemoglobin 8.1 L Hematocrit 27.0 L Mean Corpuscular Volume 87.7 Mean Corpuscular Hemoglobin 26.3 L Mean Corpuscular Hemoglobin Concent 30.0 L Red Cell Distribution Width 17.5 H Platelet Count 422 H Mean Platelet Volume 10.3 Neutrophils % 83.6 H Lymphocytes % 3.5 L Monocytes % 6.8 Eosinophils % 1.7 Basophils % 0.3 Nucleated Red Blood Cells % 0.0 Neutrophils # 21.0 H Lymphocytes # 0.9 Monocytes # 1.7 H Eosinophils # 0.4 Basophils # 0.1 Nucleated Red Blood Cells # 0.0 Sodium Level 142 Potassium Level 3.5 Chloride Level 102 Carbon Dioxide Level 28 Anion Gap 16 Blood Urea Nitrogen 42 H Creatinine 0.80 Glucose Level 83 Calcium Level 12.7 H Test 08/24/16 11:40 Bedside Glucose 114 Medications Medications Current Medications Ondansetron HCl (Zofran Inj) 4 mg Q6H PRN IV NAUSEA AND/OR VOMITING Last administered on 08/15/16 05:11; Admin Dose 4 MG; Start 07/31/16 at 15:00 Morphine Sulfate (morphine) 2 mg Q4H PRN IV SEVERE PAIN LEVEL 7-10 Last administered on 08/20/16 00:32; Admin Dose 2 MG; Start 07/31/16 at 15:00 Magnesium Hydroxide (Milk Of Mag) 30 ml DAILY PRN PO CONSTIPATION; Start at 15:00 Sodium Biphosphate/ Sodium Phosphate (Fleet Enema) 133 ml DAILY PRN [place] CONSTIPATION; Start 07/31/16 at 15:00 Hydralazine HCl (Apresoline) 10 mg Q6H PRN IV ELEVATED BLOOD PRESSURE; Start at 15:00 Nitroglycerin (Nitroglycerin (Sl Tab) 0.4 Mg) 1 tab Q5M PRN SL ANGINA; Start at 15:00 Miscellaneous Information 1 ea NOTE XX ; Start 07/31/16 at 16:30 Glucose (Glutose) 15 gm Q15M PRN PO DECREASED GLUCOSE; Start 07/31/16 at 16:30 Glucose (Glutose) 22.5 gm Q15M PRN PO DECREASED GLUCOSE; Start 07/31/16 at 16: 30 Dextrose (D50w Syringe) 25 ml Q15M PRN IV DECREASED GLUCOSE; Start 07/31/16 at 16:30 Dextrose (D50w Syringe) 50 ml Q15M PRN IV DECREASED GLUCOSE; Start 07/31/16 at 16:30 Glucagon (Glucagen) 1 mg Q15M PRN IM DECREASED GLUCOSE; Start 07/31/16 at 16:30 Glucose (Glutose) 15 gm Q15M PRN BUCCAL DECREASED GLUCOSE; Start 07/31/16 at 16 :30 Sodium Hypochlorite (Dakin'S (1/4 Strength)) 1 applic BID IRR Last administered on 08/24/16 10:00; Admin Dose 1 APPLIC; Start 08/01/16 at 21:00 Acetaminophen/ Hydrocodone Bitart ([place] (5/325)) 1 tab Q4H PRN PEG MODERATE PAIN LEVEL 4-6 Last administered on 08/19/16 21:53; Admin Dose 1 TAB; Start 08/02/16 at 00:00 Lorazepam (Ativan) 0.5 mg Q4H PRN IV ANXIETY Last administered on 08/24/16 10: 45; Admin Dose 0.5 MG; Start 08/02/16 at 00:00 Zolpidem Tartrate (Ambien) 10 mg HS PRN PEG INSOMNIA Last administered on 22:53; Admin Dose 10 MG; Start 08/02/16 at 03:30 Fluconazole (Diflucan) 100 mg DAILY PO Last administered on 08/24/16 09:55; Admin Dose 100 MG; Start 08/02/16 at 12:30 Ibuprofen (Motrin) 600 mg Q6H PRN PO PAIN OR TEMP ABOVE 38C Last administered on 08/11/16 21:29; Admin Dose 600 MG; Start 08/02/16 at 15:00 Zinc Sulfate (Zinc Sulfate) 220 mg DAILY GTB Last administered on 08/24/16 09: 56; Admin Dose 220 MG; Start 08/03/16 at 11:30 Multivitamins Therapeutic (Theragran) 1 tab DAILY PO Last administered on 09:56; Admin Dose 1 TAB; Start 08/03/16 at 11:30 Ascorbic Acid (Vitamin C) 500 mg BID GTB Last administered on 08/24/16 09:55; Admin Dose 500 MG; Start 08/03/16 at 11:30 Sodium Hypochlorite (Dakin'S (Dilute 1/40%)) 1 applic BID IRR Last administered on 08/24/16 10:00; Admin Dose 1 APPLIC; Start 08/04/16 at 12:00 Hydromorphone HCl (Dilaudid) 0.5 mg Q8H PRN IV PAIN Last administered on 16:06; Admin Dose 0.5 MG; Start 08/04/16 at 12:00 Levothyroxine Sodium (Synthroid) 25 mcg DAILY@06 PO Last administered on 06:03; Admin Dose 25 MCG; Start 08/11/16 at 06:00 Paroxetine HCl (Paxil) 10 mg DAILY PO Last administered on 08/24/16 09:56; Admin Dose 10 MG; Start 08/11/16 at 21:00 Insulin Aspart (Novolog Insulin Pen) NOVOLOG *MODERATE* ALGORI... Q6 SC Last administered on 08/18/16 12:33; Admin Dose 2 UNIT; Start 08/13/16 at 00:00 Lactobacillus Acidoph/Bulgaricus (Floranex) 1 tab TID GTB Last administered on 08/24/16 09:55; Admin Dose 1 TAB; Start 08/15/16 at 21:30 Metformin HCl (Glucophage) 500 mg Q12 GTB Last administered on 08/24/16 09:56 ; Admin Dose 500 MG; Start 08/15/16 at 21:30 Linezolid (Zyvox) 600 mg BID GTB Last administered on 08/24/16 09:55; Admin Dose 600 MG; Start 08/15/16 at 21:30 Metronidazole (Flagyl) 500 mg Q8 GTB Last administered on 08/24/16 06:07; Admin Dose 500 MG; Start 08/15/16 at 22:00 Acetaminophen 650 mg 650 mg Q6H PRN GTB PAIN AND OR ELEVATED TEMP Last administered on 08/24/16 06:34; Admin Dose 650 MG; Start 08/15/16 at 21:30 Colistimethate Sodium/Sodium Chloride (Coly-Mycin/NS) 100 ml @ 200 mls/hr Q12 IVPB Last administered on 08/24/16 09:57; Admin Dose 200 MLS/HR; Start at 21:00 Magnesium Oxide (Mag-Ox 400) 400 mg DAILY GTB Last administered on 08/24/16 09 :56; Admin Dose 400 MG; Start 08/20/16 at 09:00 Enoxaparin Sodium (Lovenox) 40 mg DAILY SC Last administered on 08/24/16 09:59 ; Admin Dose 40 MG; Start 08/22/16 at 09:00 Famotidine (Pepcid) 20 mg DAILY GTB Last administered on 08/24/16 09:56; Admin Dose 20 MG; Start 08/22/16 at 09:00 Potassium Chloride 40 meq 40 meq BID GTB Last administered on 08/24/16 09:55; Admin Dose 40 MEQ; Start 08/23/16 at 21:00 Sodium Chloride (NS) 1,000 ml @ 125 mls/hr Q8H IV Last administered on 05:00; Admin Dose 125 MLS/HR; Start 08/24/16 at 05:00 LESLIE FERRARO NP Aug 24, 2016 12:45
--- NOTE | 2016-08-24 15:29 | CONS ---
Date/Time of Note Date/Time of Note DATE: 08/24/16 TIME: 15:28 Assessment/Plan Assessment/Plan Additional Assessment/Plan Sepsis Acute decompensated systolic congestive heart failure Sinus tachycardia C2 fracture and quadriplegic Respiratory failure Cardiomyopathy with ejection fraction 50% via echo on previous admission Decubiti -Patient with brief episodes of hypotension noted overnight, on IV fluids, would watch closely for decompensated congestive heart failure. Antibiotics as per infectious disease. No antihypertensive medications at the current time. Given labile blood pressure, no diuretics at the current time. Consultation Date/Type/Reason Admit Date/Time Jul 31, 2016 at 14:20 Type of Consultation: cv 24 HR Interval Summary Free Text/Dictation Patient seen and examined. Episodes of hypotension noted overnight. On IV fluids. Exam/Review of Systems Vital Signs Vitals Vital Signs Date Time Temp Pulse Resp B/P Pulse Ox O2 Delivery O2 Flow Rate FiO2 08/24/16 13:05 123 24 96 60 08/24/16 12:02 98.9 93/52 08/24/16 05:46 Mechanical Ventilator Intake and Output 08/23/16 08/23/16 08/24/16 15:00 23:00 07:00 Intake Total 500 ml Output Total 1100 ml 1600 ml Balance -600 ml -1600 ml Exam Sleeping, no apparent distress Neck: other (Tracheostomy) Respiratory: other (Coarse breath sounds bilaterally, no wheezing) Cardiovascular: other (S1-S2 heard), regular rate and rhythm Gastrointestinal: bowel sounds, non-tender, other (No guarding), soft Extremities: edema, other (No cyanosis) Results Result Diagram: 08/24/16 0605 08/24/16 0605 Results 24 hrs Laboratory Tests Test 08/23/16 17:47 08/23/16 23:45 08/24/16 06:05 08/24/16 06:19 Bedside Glucose 105 98 94 White Blood Count 25.1 #H Red Blood Count 3.08 L Hemoglobin 8.1 L Hematocrit 27.0 L Mean Corpuscular Volume 87.7 Mean Corpuscular Hemoglobin 26.3 L Mean Corpuscular Hemoglobin Concent 30.0 L Red Cell Distribution Width 17.5 H Platelet Count 422 H Mean Platelet Volume 10.3 Neutrophils % 83.6 H Lymphocytes % 3.5 L Monocytes % 6.8 Eosinophils % 1.7 Basophils % 0.3 Nucleated Red Blood Cells % 0.0 Neutrophils # 21.0 H Lymphocytes # 0.9 Monocytes # 1.7 H Eosinophils # 0.4 Basophils # 0.1 Nucleated Red Blood Cells # 0.0 Sodium Level 142 Potassium Level 3.5 Chloride Level 102 Carbon Dioxide Level 28 Anion Gap 16 Blood Urea Nitrogen 42 H Creatinine 0.80 Glucose Level 83 Calcium Level 12.7 H Test 08/24/16 11:40 Bedside Glucose 114 Medications Medications Current Medications Ondansetron HCl (Zofran Inj) 4 mg Q6H PRN IV NAUSEA AND/OR VOMITING Last administered on 08/15/16 05:11; Admin Dose 4 MG; Start 07/31/16 at 15:00 Morphine Sulfate (morphine) 2 mg Q4H PRN IV SEVERE PAIN LEVEL 7-10 Last administered on 08/20/16 00:32; Admin Dose 2 MG; Start 07/31/16 at 15:00 Magnesium Hydroxide (Milk Of Mag) 30 ml DAILY PRN PO CONSTIPATION; Start at 15:00 Sodium Biphosphate/ Sodium Phosphate (Fleet Enema) 133 ml DAILY PRN [place] CONSTIPATION; Start 07/31/16 at 15:00 Hydralazine HCl (Apresoline) 10 mg Q6H PRN IV ELEVATED BLOOD PRESSURE; Start at 15:00 Nitroglycerin (Nitroglycerin (Sl Tab) 0.4 Mg) 1 tab Q5M PRN SL ANGINA; Start at 15:00 Miscellaneous Information 1 ea NOTE XX ; Start 07/31/16 at 16:30 Glucose (Glutose) 15 gm Q15M PRN PO DECREASED GLUCOSE; Start 07/31/16 at 16:30 Glucose (Glutose) 22.5 gm Q15M PRN PO DECREASED GLUCOSE; Start 07/31/16 at 16: 30 Dextrose (D50w Syringe) 25 ml Q15M PRN IV DECREASED GLUCOSE; Start 07/31/16 at 16:30 Dextrose (D50w Syringe) 50 ml Q15M PRN IV DECREASED GLUCOSE; Start 07/31/16 at 16:30 Glucagon (Glucagen) 1 mg Q15M PRN IM DECREASED GLUCOSE; Start 07/31/16 at 16:30 Glucose (Glutose) 15 gm Q15M PRN BUCCAL DECREASED GLUCOSE; Start 07/31/16 at 16 :30 Sodium Hypochlorite (Dakin'S (1/4 Strength)) 1 applic BID IRR Last administered on 08/24/16 10:00; Admin Dose 1 APPLIC; Start 08/01/16 at 21:00 Acetaminophen/ Hydrocodone Bitart ([place] (5/325)) 1 tab Q4H PRN PEG MODERATE PAIN LEVEL 4-6 Last administered on 08/19/16 21:53; Admin Dose 1 TAB; Start 08/02/16 at 00:00 Lorazepam (Ativan) 0.5 mg Q4H PRN IV ANXIETY Last administered on 08/24/16 10: 45; Admin Dose 0.5 MG; Start 08/02/16 at 00:00 Zolpidem Tartrate (Ambien) 10 mg HS PRN PEG INSOMNIA Last administered on 22:53; Admin Dose 10 MG; Start 08/02/16 at 03:30 Fluconazole (Diflucan) 100 mg DAILY PO Last administered on 08/24/16 09:55; Admin Dose 100 MG; Start 08/02/16 at 12:30 Ibuprofen (Motrin) 600 mg Q6H PRN PO PAIN OR TEMP ABOVE 38C Last administered on 08/11/16 21:29; Admin Dose 600 MG; Start 08/02/16 at 15:00 Zinc Sulfate (Zinc Sulfate) 220 mg DAILY GTB Last administered on 08/24/16 09: 56; Admin Dose 220 MG; Start 08/03/16 at 11:30 Multivitamins Therapeutic (Theragran) 1 tab DAILY PO Last administered on 09:56; Admin Dose 1 TAB; Start 08/03/16 at 11:30 Ascorbic Acid (Vitamin C) 500 mg BID GTB Last administered on 08/24/16 09:55; Admin Dose 500 MG; Start 08/03/16 at 11:30 Sodium Hypochlorite (Dakin'S (Dilute 1/40%)) 1 applic BID IRR Last administered on 08/24/16 10:00; Admin Dose 1 APPLIC; Start 08/04/16 at 12:00 Hydromorphone HCl (Dilaudid) 0.5 mg Q8H PRN IV PAIN Last administered on 16:06; Admin Dose 0.5 MG; Start 08/04/16 at 12:00 Levothyroxine Sodium (Synthroid) 25 mcg DAILY@06 PO Last administered on 06:03; Admin Dose 25 MCG; Start 08/11/16 at 06:00 Paroxetine HCl (Paxil) 10 mg DAILY PO Last administered on 08/24/16 09:56; Admin Dose 10 MG; Start 08/11/16 at 21:00 Insulin Aspart (Novolog Insulin Pen) NOVOLOG *MODERATE* ALGORI... Q6 SC Last administered on 08/18/16 12:33; Admin Dose 2 UNIT; Start 08/13/16 at 00:00 Lactobacillus Acidoph/Bulgaricus (Floranex) 1 tab TID GTB Last administered on 08/24/16 14:07; Admin Dose 1 TAB; Start 08/15/16 at 21:30 Metformin HCl (Glucophage) 500 mg Q12 GTB Last administered on 08/24/16 09:56 ; Admin Dose 500 MG; Start 08/15/16 at 21:30 Linezolid (Zyvox) 600 mg BID GTB Last administered on 08/24/16 09:55; Admin Dose 600 MG; Start 08/15/16 at 21:30 Metronidazole (Flagyl) 500 mg Q8 GTB Last administered on 08/24/16 14:07; Admin Dose 500 MG; Start 08/15/16 at 22:00 Acetaminophen 650 mg 650 mg Q6H PRN GTB PAIN AND OR ELEVATED TEMP Last administered on 08/24/16 06:34; Admin Dose 650 MG; Start 08/15/16 at 21:30 Colistimethate Sodium/Sodium Chloride (Coly-Mycin/NS) 100 ml @ 200 mls/hr Q12 IVPB Last administered on 08/24/16 09:57; Admin Dose 200 MLS/HR; Start at 21:00 Magnesium Oxide (Mag-Ox 400) 400 mg DAILY GTB Last administered on 08/24/16 09 :56; Admin Dose 400 MG; Start 08/20/16 at 09:00 Enoxaparin Sodium (Lovenox) 40 mg DAILY SC Last administered on 08/24/16 09:59 ; Admin Dose 40 MG; Start 08/22/16 at 09:00 Famotidine (Pepcid) 20 mg DAILY GTB Last administered on 08/24/16 09:56; Admin Dose 20 MG; Start 08/22/16 at 09:00 Potassium Chloride 40 meq 40 meq BID GTB Last administered on 08/24/16 09:55; Admin Dose 40 MEQ; Start 08/23/16 at 21:00 Sodium Chloride (NS) 1,000 ml @ 125 mls/hr Q8H IV Last administered on 14:07; Admin Dose 125 MLS/HR; Start 08/24/16 at 05:00 Kb Barrett DO Aug 24, 2016 15:29
--- NOTE | 2016-08-24 15:56 | PN ---
Date/Time of Note Date/Time of Note DATE: 08/24/16 TIME: 15:51 Assessment/Plan VTE Prophylaxis VTE Prophylaxis Intervention: LMWH Lines/Catheters IV C[facility]ter Type (from [facility] Urinary Cath still in place: Yes Reason Cath still needed: pres ulcer contaminated by urine Assessment/Plan Chief Complaint/Hosp Course S: 08/21-Wants to try speaking valve. 08/22-still having fever. tolerating feeds. no diarrhea. 08/23- sp bronch-essentially unremarkable 08/24- appears worse. tolerating feeds. 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 O: ST/ Tm 101 PE Trach c/d/i. no pallor Reg Dimin bs bilat; port - no drainage Bs + nt nd, no r/r/g. PEG c/d/i Ext- hypotonia. edema A/P 1) Sepsis; HCAP likely; stable, but failing to respond/resolved. sp bronch/atb Will ask for palliative care. 2) Recurrent sepsis: Elev wbc/fever/hypotension; line infection? Oliveira changed. 3) Decubitus wound/ MDR organisms. Diverting colostomy & debridement may not be feasible while on vent. quality of life will not improve post therapy. 4) Quadraplegia; poor prognosis; palliative care eval 5) Ho C2 fracture 6) VDRF; cont vent 7) Ho c diff 8) Chr CHF/ systolic? 9) Past tobacco 10) Malnutrition; cont peg/feeds/free water. 11) Elevated Ca; Calcium dced. Problems: Exam/Review of Systems Vital Signs Vitals Vital Signs Date Time Temp Pulse Resp B/P Pulse Ox O2 Delivery O2 Flow Rate FiO2 08/24/16 15:21 119 24 98 50 08/24/16 12:02 98.9 93/52 08/24/16 05:46 Mechanical Ventilator Intake and Output 08/23/16 08/23/16 08/24/16 15:00 23:00 07:00 Intake Total 500 ml Output Total 1100 ml 1600 ml Balance -600 ml -1600 ml Results Result Diagram: 08/24/16 0605 08/24/16 0605 Results 24 hrs Laboratory Tests Test 08/23/16 17:47 08/23/16 23:45 08/24/16 06:05 08/24/16 06:19 Bedside Glucose 105 98 94 White Blood Count 25.1 #H Red Blood Count 3.08 L Hemoglobin 8.1 L Hematocrit 27.0 L Mean Corpuscular Volume 87.7 Mean Corpuscular Hemoglobin 26.3 L Mean Corpuscular Hemoglobin Concent 30.0 L Red Cell Distribution Width 17.5 H Platelet Count 422 H Mean Platelet Volume 10.3 Neutrophils % 83.6 H Lymphocytes % 3.5 L Monocytes % 6.8 Eosinophils % 1.7 Basophils % 0.3 Nucleated Red Blood Cells % 0.0 Neutrophils # 21.0 H Lymphocytes # 0.9 Monocytes # 1.7 H Eosinophils # 0.4 Basophils # 0.1 Nucleated Red Blood Cells # 0.0 Sodium Level 142 Potassium Level 3.5 Chloride Level 102 Carbon Dioxide Level 28 Anion Gap 16 Blood Urea Nitrogen 42 H Creatinine 0.80 Glucose Level 83 Calcium Level 12.7 H Test 08/24/16 11:40 Bedside Glucose 114 Medications Medications Current Medications Ondansetron HCl (Zofran Inj) 4 mg Q6H PRN IV NAUSEA AND/OR VOMITING Last administered on 08/15/16 05:11; Admin Dose 4 MG; Start 07/31/16 at 15:00 Morphine Sulfate (morphine) 2 mg Q4H PRN IV SEVERE PAIN LEVEL 7-10 Last administered on 08/20/16 00:32; Admin Dose 2 MG; Start 07/31/16 at 15:00 Magnesium Hydroxide (Milk Of Mag) 30 ml DAILY PRN PO CONSTIPATION; Start at 15:00 Sodium Biphosphate/ Sodium Phosphate (Fleet Enema) 133 ml DAILY PRN [place] CONSTIPATION; Start 07/31/16 at 15:00 Hydralazine HCl (Apresoline) 10 mg Q6H PRN IV ELEVATED BLOOD PRESSURE; Start at 15:00 Nitroglycerin (Nitroglycerin (Sl Tab) 0.4 Mg) 1 tab Q5M PRN SL ANGINA; Start at 15:00 Miscellaneous Information 1 ea NOTE XX ; Start 07/31/16 at 16:30 Glucose (Glutose) 15 gm Q15M PRN PO DECREASED GLUCOSE; Start 07/31/16 at 16:30 Glucose (Glutose) 22.5 gm Q15M PRN PO DECREASED GLUCOSE; Start 07/31/16 at 16: 30 Dextrose (D50w Syringe) 25 ml Q15M PRN IV DECREASED GLUCOSE; Start 07/31/16 at 16:30 Dextrose (D50w Syringe) 50 ml Q15M PRN IV DECREASED GLUCOSE; Start 07/31/16 at 16:30 Glucagon (Glucagen) 1 mg Q15M PRN IM DECREASED GLUCOSE; Start 07/31/16 at 16:30 Glucose (Glutose) 15 gm Q15M PRN BUCCAL DECREASED GLUCOSE; Start 07/31/16 at 16 :30 Sodium Hypochlorite (Dakin'S (1/4 Strength)) 1 applic BID IRR Last administered on 08/24/16 10:00; Admin Dose 1 APPLIC; Start 08/01/16 at 21:00 Acetaminophen/ Hydrocodone Bitart ([place] (5/325)) 1 tab Q4H PRN PEG MODERATE PAIN LEVEL 4-6 Last administered on 08/19/16 21:53; Admin Dose 1 TAB; Start 08/02/16 at 00:00 Lorazepam (Ativan) 0.5 mg Q4H PRN IV ANXIETY Last administered on 08/24/16 10: 45; Admin Dose 0.5 MG; Start 08/02/16 at 00:00 Zolpidem Tartrate (Ambien) 10 mg HS PRN PEG INSOMNIA Last administered on 22:53; Admin Dose 10 MG; Start 08/02/16 at 03:30 Fluconazole (Diflucan) 100 mg DAILY PO Last administered on 08/24/16 09:55; Admin Dose 100 MG; Start 08/02/16 at 12:30 Ibuprofen (Motrin) 600 mg Q6H PRN PO PAIN OR TEMP ABOVE 38C Last administered on 08/11/16 21:29; Admin Dose 600 MG; Start 08/02/16 at 15:00 Zinc Sulfate (Zinc Sulfate) 220 mg DAILY GTB Last administered on 08/24/16 09: 56; Admin Dose 220 MG; Start 08/03/16 at 11:30 Multivitamins Therapeutic (Theragran) 1 tab DAILY PO Last administered on 09:56; Admin Dose 1 TAB; Start 08/03/16 at 11:30 Ascorbic Acid (Vitamin C) 500 mg BID GTB Last administered on 08/24/16 09:55; Admin Dose 500 MG; Start 08/03/16 at 11:30 Sodium Hypochlorite (Dakin'S (Dilute 1/40%)) 1 applic BID IRR Last administered on 08/24/16 10:00; Admin Dose 1 APPLIC; Start 08/04/16 at 12:00 Hydromorphone HCl (Dilaudid) 0.5 mg Q8H PRN IV PAIN Last administered on 16:06; Admin Dose 0.5 MG; Start 08/04/16 at 12:00 Levothyroxine Sodium (Synthroid) 25 mcg DAILY@06 PO Last administered on 06:03; Admin Dose 25 MCG; Start 08/11/16 at 06:00 Paroxetine HCl (Paxil) 10 mg DAILY PO Last administered on 08/24/16 09:56; Admin Dose 10 MG; Start 08/11/16 at 21:00 Insulin Aspart (Novolog Insulin Pen) NOVOLOG *MODERATE* ALGORI... Q6 SC Last administered on 08/18/16 12:33; Admin Dose 2 UNIT; Start 08/13/16 at 00:00 Lactobacillus Acidoph/Bulgaricus (Floranex) 1 tab TID GTB Last administered on 08/24/16 14:07; Admin Dose 1 TAB; Start 08/15/16 at 21:30 Metformin HCl (Glucophage) 500 mg Q12 GTB Last administered on 08/24/16 09:56 ; Admin Dose 500 MG; Start 08/15/16 at 21:30 Linezolid (Zyvox) 600 mg BID GTB Last administered on 08/24/16 09:55; Admin Dose 600 MG; Start 08/15/16 at 21:30 Metronidazole (Flagyl) 500 mg Q8 GTB Last administered on 08/24/16 14:07; Admin Dose 500 MG; Start 08/15/16 at 22:00 Acetaminophen 650 mg 650 mg Q6H PRN GTB PAIN AND OR ELEVATED TEMP Last administered on 08/24/16 06:34; Admin Dose 650 MG; Start 08/15/16 at 21:30 Colistimethate Sodium/Sodium Chloride (Coly-Mycin/NS) 100 ml @ 200 mls/hr Q12 IVPB Last administered on 08/24/16 09:57; Admin Dose 200 MLS/HR; Start at 21:00 Magnesium Oxide (Mag-Ox 400) 400 mg DAILY GTB Last administered on 08/24/16 09 :56; Admin Dose 400 MG; Start 08/20/16 at 09:00 Enoxaparin Sodium (Lovenox) 40 mg DAILY SC Last administered on 08/24/16 09:59 ; Admin Dose 40 MG; Start 08/22/16 at 09:00 Famotidine (Pepcid) 20 mg DAILY GTB Last administered on 08/24/16 09:56; Admin Dose 20 MG; Start 08/22/16 at 09:00 Potassium Chloride 40 meq 40 meq BID GTB Last administered on 08/24/16 09:55; Admin Dose 40 MEQ; Start 08/23/16 at 21:00 Sodium Chloride (NS) 1,000 ml @ 125 mls/hr Q8H IV Last administered on 14:07; Admin Dose 125 MLS/HR; Start 08/24/16 at 05:00 MARY BETH HOUSTON MD Aug 24, 2016 15:56
[2016-08-24] MEDS ORDERED: HYDROmorphONE 1 MG/ML SYG IV PRN (18:00)
--- NOTE | 2016-08-24 18:25 | CONS ---
DATE OF ADMISSION: 07/31/2016 DATE OF CONSULTATION: 08/24/2016 TYPE OF CONSULTATION: Palliative care. HISTORY OF PRESENT ILLNESS: All the information is obtained from the patient's medical records as tisha chavis is PEG'd, trached, cannot completely understand what he is trying to say. He mouths his word s and is a 100% quadriplegic. This gentleman was admitted to [facility] septic. Aggressive treatment was given at that time. Apparently has been a past medical history of respirat ory failure requiring tracheostomy. The patient has a C2 fracture. He has had a long hospitalizati on, was admitted here 07/31 and has had multiple consultation subspecialists seeing him while here. He remains moribund, still receiving aggressive care with elevations of white blood cell counts, on and off temperatures, has required bronchoscopy during this hospitalization, has a wound with multi drug-resistant organisms growing, diverting colostomy, questionable congestive heart failure. I am asked to speak to patient and possibly family members concerning level of aggressive care in the fut ure. Once again, patient is a non-historian, and I spent some time today just introducing myself to him, and I will find out who the primary decision makers are in his family if it's not him. In the chart, there is an ____ May who is listed as both next of kin and the person to notify, but I will ask the patient's permission first to contact that individual. MEDICATIONS: Please refer to reconciliation sheet. ALLERGIES: NO KNOWN DRUG ALLERGIES. MAJOR MEDICAL PROBLEMS: Significant for this consultation is primarily per history of present illne ss. SOCIAL HISTORY: Cannot be obtained. FAMILY HISTORY: Cannot be obtained. REVIEW OF SYSTEMS: Cannot be obtained. PHYSICAL EXAMINATION: GENERAL: Emaciated-looking male. HEENT: Normocephalic and atraumatic, anicteric on examination. CHEST: Inspiratory and expiratory rhonchi on examination. CORONARY: S1, S2. Without S3, S4, murmur, gallop, rub. Normal rate, normal rhythm. ABDOMEN: Grossly benign. NEUROLOGIC: He mouths yes, no. He mouths some words, very difficult to understand. ASSESSMENT AND PLAN: I will have a detailed sit-down conversation with the patient tomorrow and ask him straight yes or no questions insofar as what he wants to have done in the future, and I will gi ve him options, of course, and talk about those options with him in detail, find out whether or not he would like me to discuss those options with other family members. At 46 years old, this gentlema n has an extremely poor prognosis, and especially because he is a true C2 quadriplegic, which will i n all inevitability result in this gentleman dying from some type of an underlying infectious cause. He is malnourished also on clinical examination. Statistically, that will not improve his overall prognosis by receiving PEG nutrition, although that's the only thing offered him, and I agree with that, his current care. I will address the issue of whether or not patient still wants to live in h is current condition or if he wants to address that with family members first. I appreciate this co nsult very much and will see whether or not the patient wants to continue on in this condition, jack cabrera after we tell him that his long-term prognosis is these recurrent hospitalizations and a stea dy downhill course until his . Dictated By: MARYSOL BRADFORD MD, LP/SCOTTIE Conf#: [id number] DID#: [id number]
[2016-08-24] MEDS: ALTEPLASE (CATHFLO) 2 MG INJ CATHETER PRN (21:47)
[2016-08-25] VITALS (22 sets, daily range): BP systolic 82–97; BP diastolic 49–57; PULSE 109–120; RESP 18–24
[2016-08-25] MEDS: LORAZEPAM 2 MG INJ IV PRN ×2 (02:19→07:02)
[2016-08-25] MEDS: LEVOTHYROXINE 25 MCG TAB PO SCH (05:13)
[2016-08-25] MEDS: metroNIDAZOLE 500 MG TAB GTB SCH ×3 (05:13→21:39)
[2016-08-25] MEDS: INSULIN ASPART [NOVOLOG] 3 ML PEN SC SCH ×4 (05:14→17:20)
[2016-08-25] MEDS: metFORMIN 500 MG TAB GTB SCH ×2 (08:23→21:39)
[2016-08-25] MEDS: ASCORBIC ACID 500 MG TAB GTB SCH ×2 (08:23→21:39)
[2016-08-25] MEDS: ZINC SULFATE 220 MG CAP GTB SCH (08:23)
[2016-08-25] MEDS: LACTOBACILLUS CHEW TAB GTB SCH ×3 (08:23→21:39)
[2016-08-25] MEDS: MULTIVITAMINS THERAPEUTIC TAB PO SCH (08:23)
[2016-08-25] MEDS: FLUCONAZOLE 100 MG TAB PO SCH (08:23)
[2016-08-25] MEDS: PAROXETINE 10 MG TAB PO SCH (08:23)
[2016-08-25] MEDS: ZYVOX 600 MG TAB GTB SCH ×2 (08:23→21:40)
[2016-08-25] MEDS: FAMOTIDINE 20 MG TAB GTB SCH (08:23)
[2016-08-25] MEDS: MAGNESIUM OXIDE 400 MG TAB GTB SCH (08:23)
[2016-08-25] MEDS: POTASSIUM CHLORIDE 20 MEQ POWDER FOR ORAL SOLN GTB SCH ×2 (08:24→21:40)
[2016-08-25] MEDS: ENOXAPARIN 40 MG/0.4 ML SYG SC SCH (08:37)
[2016-08-25] MEDS: COLISTIMETHATE 150 MG in SOD CHLORIDE 0.9% 100 ML IVPB SCH ×2 (09:01→21:41)
[2016-08-25] MEDS: ALBUTEROL HFA 8 GM INHALER INH SCH ×2 (09:41→13:26)
[2016-08-25] MEDS: SODIUM HYPOCHLORITE 0.125% 473 ML BTL IRR SCH ×2 (10:21→21:41)
[2016-08-25] MEDS: SODIUM HYPOCHLORITE 1/40% 1L IRRIG IRR SCH ×2 (10:21→21:42)
--- NOTE | 2016-08-25 10:33 | CONS ---
Date/Time of Note Date/Time of Note DATE: 08/25/16 TIME: 10:12 Assessment/Plan Assessment/Plan Chief Complaint/Hosp Course ID PROGRESS NOTE TOTAL ABX DAY => Zyvox #21, Colistin IV, Diflucan, Flagyl 24H INTERVAL SUMMARY POD # 2 s/p Bronch (+)PSAR 08/23/16 BAL w/CXR 08/22 => DENSE consolidation * Awake, alert, doing OK - has Dilaudid onboard for pain meds * s/p CATHFlow to Port-A-Cath last pm -- now with rising WBC ? line sepsis? * WBC rising today on multiple ABX ? * Low grade temps on off - Persisting * WBC scan was negative Result Diagram: 08/24/1660408/24/16604 PHYSICAL EXAMINATION: GENERAL: 46 yo M HEENT/Neck: Trach C-Spine collar NCHEST: Equal chest rise bilaterally, without dyspnea on observation HEART: Pulse RRR ABDOMEN: Soft EXTREMITIES: Warm SKIN: See hard chart skin assessment: multiple STG IV Decubs ID ASSESSMENT: 46 yo M w/C-spine injury w/paraplegia->s/p spinal surgery admit with: 1. SIRS w/on-on low grade fevers + rising WBC today -> Multifactorial due to wounds, invasives, reactive * s/p Sepsis on admission w/ fever, hypotension and tachycardia => multifactorial * BCx (-) to date * Afebrile today w/(+)low grade temps on/off ~100.+ * CT C-spine 08/12/16: No evidence spinal abscess/Infx * WBC Scan 08/13/16: No evidence infection 2. HCAP broncho-PNA * s/p Bronch 08/23/16 =? BAL (+)PSAR * CT: Scattered bronchial wall thickening, centrilobular nodules, tree in bud nodularity, and bronchocentric consolidation consistent with multifocal bronchitis/bronchiolitis/bronchopneumonia. Areas of bronchocentric scarring is also seen throughout the lungs suggestive of chronic recurrent infections. 3. Neurogenic bladder w/indwelling FC 4. Recurrent UTI's = CRI w/justification to keep FC due to incontinence wounds, concern urinary retention * Several small nonobstructing bilateral renal calculi. * Diffuse bladder wall thickening 5. Multiple infx decubs: Buttock/Back x 4 = STG IV / bilateral heels WOUND CULTURE Final Organism 1 KLEB PNEUMONIAE CARBAPENEMASE QUANTITY 3+ . MULTI DRUG RESISTANT ORGANISM Organism 2 ACINETOBACTER BAUMANNII QUANTITY 2+ Organism 3 VANCO RESISTANT ENTEROCOCCUS QUANTITY ISOLATED FROM BROTH ONLY . MULTI DRUG RESISTANT ORGANISM Organism 4 PROTEUS MIRABILIS QUANTITY SCANT GROWTH 6. Diarrhea = TF + ABX associated 7. Poor wound healing / protein sawyer malnutrition * On MVI, VitC, Zinc supplements 8. DMT2 ?Peripheral neuropathy 9. Depression=> situational related to current illness * staff rn alerted patient at times declines wound care, turning, ?if due to frequent presence of female visitors in the room? * Encourage patient importance of turning and wound care compliance w/nursing staff (-)MRSA Nares INVASIVES: Trach/Peg/FC/L-Chest Port/C-spine hardware ABX ALLERGY: KNDA CURRENT ABX: => Zyvox #21, Colistin IV, Diflucan, Flagyl s/p Cefepime ID RECOMMENDATIONS: 1. Continue current ABX * => consider DC all ABX on Saturday for ABX holiday -- If he spikes temp then repeat Blood, urine cultures, stool for C.Diff 2. s/p CATHFlow to Port-A-Cath last pm -- now with rising WBC ? line sepsis? vs Recurrent UTI ? C.Diff? * Repeat urine & stool cx 3. Diarrhea contaminating wound = Needs diverting colostomy 4. Per notes: Not a good candidate for wound dbride due to concern would lead to chronic non-healing wound . Problems: Consultation Date/Type/Reason Admit Date/Time Jul 31, 2016 at 14:20 Initial Consult Date 08/02/16 Type of Consultation: ID Exam/Review of Systems Vital Signs Vitals Vital Signs Date Time Temp Pulse Resp B/P Pulse Ox O2 Delivery O2 Flow Rate FiO2 08/25/16 08:42 112 08/25/16 08:02 99.2 20 91/52 94 08/25/16 07:45 50 08/24/16 05:46 Mechanical Ventilator Intake and Output 08/24/16 08/24/16 08/25/16 14:59 22:59 06:59 Intake Total 1350 ml 1150 ml Output Total 800 ml 600 ml Balance 550 ml 550 ml Results Result Diagram: 08/24/1660408/24/16 06 Results 24 hrs Laboratory Tests Test 08/24/16 11:40 08/24/16 19:07 08/25/16 00:03 08/25/16 05:12 Bedside Glucose 114 133 140 148 Medications Medications Current Medications Ondansetron HCl (Zofran Inj) 4 mg Q6H PRN IV NAUSEA AND/OR VOMITING Last administered on 08/15/16 05:11; Admin Dose 4 MG; Start 07/31/16 at 15:00 Morphine Sulfate (morphine) 2 mg Q4H PRN IV SEVERE PAIN LEVEL 7-10 Last administered on 08/20/16 00:32; Admin Dose 2 MG; Start 07/31/16 at 15:00 Magnesium Hydroxide (Milk Of Mag) 30 ml DAILY PRN PO CONSTIPATION; Start at 15:00 Sodium Biphosphate/ Sodium Phosphate (Fleet Enema) 133 ml DAILY PRN [place] CONSTIPATION; Start 07/31/16 at 15:00 Hydralazine HCl (Apresoline) 10 mg Q6H PRN IV ELEVATED BLOOD PRESSURE; Start at 15:00 Nitroglycerin (Nitroglycerin (Sl Tab) 0.4 Mg) 1 tab Q5M PRN SL ANGINA; Start at 15:00 Miscellaneous Information 1 ea NOTE XX ; Start 07/31/16 at 16:30 Glucose (Glutose) 15 gm Q15M PRN PO DECREASED GLUCOSE; Start 07/31/16 at 16:30 Glucose (Glutose) 22.5 gm Q15M PRN PO DECREASED GLUCOSE; Start 07/31/16 at 16: 30 Dextrose (D50w Syringe) 25 ml Q15M PRN IV DECREASED GLUCOSE; Start 07/31/16 at 16:30 Dextrose (D50w Syringe) 50 ml Q15M PRN IV DECREASED GLUCOSE; Start 07/31/16 at 16:30 Glucagon (Glucagen) 1 mg Q15M PRN IM DECREASED GLUCOSE; Start 07/31/16 at 16:30 Glucose (Glutose) 15 gm Q15M PRN BUCCAL DECREASED GLUCOSE; Start 07/31/16 at 16 :30 Sodium Hypochlorite (Dakin'S (1/4 Strength)) 1 applic BID IRR Last administered on 08/24/16 21:39; Admin Dose 1 APPLIC; Start 08/01/16 at 21:00 Acetaminophen/ Hydrocodone Bitart ([place] (5/325)) 1 tab Q4H PRN PEG MODERATE PAIN LEVEL 4-6 Last administered on 08/19/16 21:53; Admin Dose 1 TAB; Start 08/02/16 at 00:00 Lorazepam (Ativan) 0.5 mg Q4H PRN IV ANXIETY Last administered on 08/25/16 07: 02; Admin Dose 0.5 MG; Start 08/02/16 at 00:00 Zolpidem Tartrate (Ambien) 10 mg HS PRN PEG INSOMNIA Last administered on 22:53; Admin Dose 10 MG; Start 08/02/16 at 03:30 Fluconazole (Diflucan) 100 mg DAILY PO Last administered on 08/25/16 08:23; Admin Dose 100 MG; Start 08/02/16 at 12:30 Ibuprofen (Motrin) 600 mg Q6H PRN PO PAIN OR TEMP ABOVE 38C Last administered on 08/11/16 21:29; Admin Dose 600 MG; Start 08/02/16 at 15:00 Zinc Sulfate (Zinc Sulfate) 220 mg DAILY GTB Last administered on 08/25/16 08: 23; Admin Dose 220 MG; Start 08/03/16 at 11:30 Multivitamins Therapeutic (Theragran) 1 tab DAILY PO Last administered on 08:23; Admin Dose 1 TAB; Start 08/03/16 at 11:30 Ascorbic Acid (Vitamin C) 500 mg BID GTB Last administered on 08/25/16 08:23; Admin Dose 500 MG; Start 08/03/16 at 11:30 Sodium Hypochlorite (Dakin'S (Dilute 1/40%)) 1 applic BID IRR Last administered on 08/24/16 10:00; Admin Dose 1 APPLIC; Start 08/04/16 at 12:00 Levothyroxine Sodium (Synthroid) 25 mcg DAILY@06 PO Last administered on 05:13; Admin Dose 25 MCG; Start 08/11/16 at 06:00 Paroxetine HCl (Paxil) 10 mg DAILY PO Last administered on 08/25/16 08:23; Admin Dose 10 MG; Start 08/11/16 at 21:00 Insulin Aspart (Novolog Insulin Pen) NOVOLOG *MODERATE* ALGORI... Q6 SC Last administered on 08/25/16 05:14; Admin Dose 2 UNIT; Start 08/13/16 at 00:00 Lactobacillus Acidoph/Bulgaricus (Floranex) 1 tab TID GTB Last administered on 08/25/16 08:23; Admin Dose 1 TAB; Start 08/15/16 at 21:30 Metformin HCl (Glucophage) 500 mg Q12 GTB Last administered on 08/25/16 08:23 ; Admin Dose 500 MG; Start 08/15/16 at 21:30 Linezolid (Zyvox) 600 mg BID GTB Last administered on 08/25/16 08:23; Admin Dose 600 MG; Start 08/15/16 at 21:30 Metronidazole (Flagyl) 500 mg Q8 GTB Last administered on 08/25/16 05:13; Admin Dose 500 MG; Start 08/15/16 at 22:00 Acetaminophen 650 mg 650 mg Q6H PRN GTB PAIN AND OR ELEVATED TEMP Last administered on 08/24/16 06:34; Admin Dose 650 MG; Start 08/15/16 at 21:30 Colistimethate Sodium/Sodium Chloride (Coly-Mycin/NS) 100 ml @ 200 mls/hr Q12 IVPB Last administered on 08/25/16 09:01; Admin Dose 200 MLS/HR; Start at 21:00 Magnesium Oxide (Mag-Ox 400) 400 mg DAILY GTB Last administered on 08/25/16 08 :23; Admin Dose 400 MG; Start 08/20/16 at 09:00 Enoxaparin Sodium (Lovenox) 40 mg DAILY SC Last administered on 08/25/16 08:37 ; Admin Dose 40 MG; Start 08/22/16 at 09:00 Famotidine (Pepcid) 20 mg DAILY GTB Last administered on 08/25/16 08:23; Admin Dose 20 MG; Start 08/22/16 at 09:00 Potassium Chloride (Potassium Chloride Pwd/Soln) 40 meq BID GTB Last administered on 08/25/16 08:24; Admin Dose 40 MEQ; Start 08/23/16 at 21:00 Hydromorphone HCl (Dilaudid) 1 mg Q6H PRN IV PAIN Last administered on 3/24/ 17at 18:58; Admin Dose 1 MG; Start 08/24/16 at 18:00 ELOY PELAEZ NP Aug 25, 2016 10:23
--- NOTE | 2016-08-25 10:34 | PN ---
Date/Time of Note Date/Time of Note DATE: 08/25/16 TIME: 10:33 Assessment/Plan VTE Prophylaxis VTE Prophylaxis Intervention: SCD's Lines/Catheters IV Catheter Type (from Nrsg): Saline Lock Urinary Cath still in place: Yes Reason Cath still needed: urinary retention Assessment/Plan Assessment/Plan Sepsis Acute decompensated systolic congestive heart failure Sinus tachycardia C2 fracture and quadriplegic Respiratory failure Cardiomyopathy with ejection fraction 50% via echo on previous admission Decubiti - would watch closely for decompensated congestive heart failure. Antibiotics as per infectious disease. No antihypertensive medications at the current time. Given labile blood pressure, no diuretics at the current time. Subjective 24 Hr Interval Summary Free Text/Dictation the patine don no cahnge Exam/Review of Systems Vital Signs Vitals Vital Signs Date Time Temp Pulse Resp B/P Pulse Ox O2 Delivery O2 Flow Rate FiO2 08/25/16 10:16 116 24 96 50 08/25/16 08:02 99.2 91/52 08/24/16 05:46 Mechanical Ventilator Intake and Output 08/24/16 08/24/16 08/25/16 15:00 23:00 07:00 Intake Total 1350 ml 1150 ml Output Total 800 ml 600 ml Balance 550 ml 550 ml Results Result Diagram: 08/24/16 0605 08/24/16 0605 Results 24 hrs Laboratory Tests Test 08/24/16 11:40 08/24/16 19:07 08/25/16 00:03 08/25/16 05:12 Bedside Glucose 114 133 140 148 Medications Medications Current Medications Ondansetron HCl (Zofran Inj) 4 mg Q6H PRN IV NAUSEA AND/OR VOMITING Last administered on 08/15/16 05:11; Admin Dose 4 MG; Start 07/31/16 at 15:00 Morphine Sulfate (morphine) 2 mg Q4H PRN IV SEVERE PAIN LEVEL 7-10 Last administered on 08/20/16 00:32; Admin Dose 2 MG; Start 07/31/16 at 15:00 Magnesium Hydroxide (Milk Of Mag) 30 ml DAILY PRN PO CONSTIPATION; Start at 15:00 Sodium Biphosphate/ Sodium Phosphate (Fleet Enema) 133 ml DAILY PRN [place] CONSTIPATION; Start 07/31/16 at 15:00 Hydralazine HCl (Apresoline) 10 mg Q6H PRN IV ELEVATED BLOOD PRESSURE; Start at 15:00 Nitroglycerin (Nitroglycerin (Sl Tab) 0.4 Mg) 1 tab Q5M PRN SL ANGINA; Start at 15:00 Miscellaneous Information 1 ea NOTE XX ; Start 07/31/16 at 16:30 Glucose (Glutose) 15 gm Q15M PRN PO DECREASED GLUCOSE; Start 07/31/16 at 16:30 Glucose (Glutose) 22.5 gm Q15M PRN PO DECREASED GLUCOSE; Start 07/31/16 at 16: 30 Dextrose (D50w Syringe) 25 ml Q15M PRN IV DECREASED GLUCOSE; Start 07/31/16 at 16:30 Dextrose (D50w Syringe) 50 ml Q15M PRN IV DECREASED GLUCOSE; Start 07/31/16 at 16:30 Glucagon (Glucagen) 1 mg Q15M PRN IM DECREASED GLUCOSE; Start 07/31/16 at 16:30 Glucose (Glutose) 15 gm Q15M PRN BUCCAL DECREASED GLUCOSE; Start 07/31/16 at 16 :30 Sodium Hypochlorite (Dakin'S (1/4 Strength)) 1 applic BID IRR Last administered on 08/25/16 10:21; Admin Dose 1 APPLIC; Start 08/01/16 at 21:00 Acetaminophen/ Hydrocodone Bitart ([place] (5/325)) 1 tab Q4H PRN PEG MODERATE PAIN LEVEL 4-6 Last administered on 08/19/16 21:53; Admin Dose 1 TAB; Start 08/02/16 at 00:00 Lorazepam (Ativan) 0.5 mg Q4H PRN IV ANXIETY Last administered on 08/25/16 07: 02; Admin Dose 0.5 MG; Start 08/02/16 at 00:00 Zolpidem Tartrate (Ambien) 10 mg HS PRN PEG INSOMNIA Last administered on 22:53; Admin Dose 10 MG; Start 08/02/16 at 03:30 Fluconazole (Diflucan) 100 mg DAILY PO Last administered on 08/25/16 08:23; Admin Dose 100 MG; Start 08/02/16 at 12:30 Ibuprofen (Motrin) 600 mg Q6H PRN PO PAIN OR TEMP ABOVE 38C Last administered on 08/11/16 21:29; Admin Dose 600 MG; Start 08/02/16 at 15:00 Zinc Sulfate (Zinc Sulfate) 220 mg DAILY GTB Last administered on 08/25/16 08: 23; Admin Dose 220 MG; Start 08/03/16 at 11:30 Multivitamins Therapeutic (Theragran) 1 tab DAILY PO Last administered on 08:23; Admin Dose 1 TAB; Start 08/03/16 at 11:30 Ascorbic Acid (Vitamin C) 500 mg BID GTB Last administered on 08/25/16 08:23; Admin Dose 500 MG; Start 08/03/16 at 11:30 Sodium Hypochlorite (Dakin'S (Dilute 1/40%)) 1 applic BID IRR Last administered on 08/25/16 10:21; Admin Dose 1 APPLIC; Start 08/04/16 at 12:00 Levothyroxine Sodium (Synthroid) 25 mcg DAILY@06 PO Last administered on 05:13; Admin Dose 25 MCG; Start 08/11/16 at 06:00 Paroxetine HCl (Paxil) 10 mg DAILY PO Last administered on 08/25/16 08:23; Admin Dose 10 MG; Start 08/11/16 at 21:00 Insulin Aspart (Novolog Insulin Pen) NOVOLOG *MODERATE* ALGORI... Q6 SC Last administered on 08/25/16 05:14; Admin Dose 2 UNIT; Start 08/13/16 at 00:00 Lactobacillus Acidoph/Bulgaricus (Floranex) 1 tab TID GTB Last administered on 08/25/16 08:23; Admin Dose 1 TAB; Start 08/15/16 at 21:30 Metformin HCl (Glucophage) 500 mg Q12 GTB Last administered on 08/25/16 08:23 ; Admin Dose 500 MG; Start 08/15/16 at 21:30 Linezolid (Zyvox) 600 mg BID GTB Last administered on 08/25/16 08:23; Admin Dose 600 MG; Start 08/15/16 at 21:30 Metronidazole (Flagyl) 500 mg Q8 GTB Last administered on 08/25/16 05:13; Admin Dose 500 MG; Start 08/15/16 at 22:00 Acetaminophen 650 mg 650 mg Q6H PRN GTB PAIN AND OR ELEVATED TEMP Last administered on 08/24/16 06:34; Admin Dose 650 MG; Start 08/15/16 at 21:30 Colistimethate Sodium/Sodium Chloride (Coly-Mycin/NS) 100 ml @ 200 mls/hr Q12 IVPB Last administered on 08/25/16 09:01; Admin Dose 200 MLS/HR; Start at 21:00 Magnesium Oxide (Mag-Ox 400) 400 mg DAILY GTB Last administered on 08/25/16 08 :23; Admin Dose 400 MG; Start 08/20/16 at 09:00 Enoxaparin Sodium (Lovenox) 40 mg DAILY SC Last administered on 08/25/16 08:37 ; Admin Dose 40 MG; Start 08/22/16 at 09:00 Famotidine (Pepcid) 20 mg DAILY GTB Last administered on 08/25/16 08:23; Admin Dose 20 MG; Start 08/22/16 at 09:00 Potassium Chloride (Potassium Chloride Pwd/Soln) 40 meq BID GTB Last administered on 08/25/16 08:24; Admin Dose 40 MEQ; Start 08/23/16 at 21:00 Hydromorphone HCl (Dilaudid) 1 mg Q6H PRN IV PAIN Last administered on 18:58; Admin Dose 1 MG; Start 08/24/16 at 18:00 LORI ALMONTE MD Aug 25, 2016 10:34
--- NOTE | 2016-08-25 15:53 | CONS ---
Date/Time of Note Date/Time of Note DATE: 08/25/16 TIME: 15:51 Assessment/Plan Assessment/Plan Additional Assessment/Plan Ventilator settings; AC of 24, tidal volume 500, PEEP of 5, 60% FiO2. Assessment recommendations; 1. Patient admitted for severe sepsis due to pneumonia as well as sacral decubitus ulcers. 2. Quadriplegia, patient remains ventilator dependent. 3. Systolic dysfunction. 4. Hypertension. 5. Status post bronchoscopy with essentially negative findings. Continue current treatment ,continue current ventilator settings and antibiotics. Prognosis remains poor. Patient likely would need to have a diverting colostomy performed. Consultation Date/Type/Reason Admit Date/Time Jul 31, 2016 at 14:20 Initial Consult Date 08/02/16 Type of Consultation: Pulmonary 24 HR Interval Summary Free Text/Dictation Patient condition remains stable. Still requiring 60% FiO2 for O2 saturation maintenance. Patient remains awake and alert. General exam; young male, on ventilator via tracheostomy awake and alert. Currently in no distress. Exam/Review of Systems Vital Signs Vitals Vital Signs Date Time Temp Pulse Resp B/P Pulse Ox O2 Delivery O2 Flow Rate FiO2 08/25/16 13:25 121 24 96 50 08/25/16 12:15 99.3 85/53 08/24/16 05:46 Mechanical Ventilator Intake and Output 08/24/16 08/24/16 08/25/16 15:00 23:00 07:00 Intake Total 1350 ml 1150 ml Output Total 800 ml 600 ml Balance 550 ml 550 ml Exam HEENT examination; neck is in a C-spine collar. Tracheostomy in place. No lymphadenopathy. No neck masses. Pupils are midsize reactive to light. Pharynx is clear. Patient has good dentition. Chest examination; diffuse crackles involving lower lobes bilaterally. S1-S2 audible, no murmurs. Regular rhythm. Abdomen examination; soft, G-tube in place. Bowel sounds audible. Nondistended. Back examination reveals sacral ulcers as well as ulcers involving bilateral hips. Extremity exam is; no peripheral edema. 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 Results Result Diagram: 08/24/16 0605 08/24/16 0605 Results 24 hrs Laboratory Tests Test 08/24/16 19:07 08/25/16 00:03 08/25/16 05:12 08/25/16 11:34 Bedside Glucose 133 140 148 126 Medications Medications Current Medications Ondansetron HCl (Zofran Inj) 4 mg Q6H PRN IV NAUSEA AND/OR VOMITING Last administered on 08/15/16 05:11; Admin Dose 4 MG; Start 07/31/16 at 15:00 Morphine Sulfate (morphine) 2 mg Q4H PRN IV SEVERE PAIN LEVEL 7-10 Last administered on 08/20/16 00:32; Admin Dose 2 MG; Start 07/31/16 at 15:00 Magnesium Hydroxide (Milk Of Mag) 30 ml DAILY PRN PO CONSTIPATION; Start at 15:00 Sodium Biphosphate/ Sodium Phosphate (Fleet Enema) 133 ml DAILY PRN [place] CONSTIPATION; Start 07/31/16 at 15:00 Hydralazine HCl (Apresoline) 10 mg Q6H PRN IV ELEVATED BLOOD PRESSURE; Start at 15:00 Nitroglycerin (Nitroglycerin (Sl Tab) 0.4 Mg) 1 tab Q5M PRN SL ANGINA; Start at 15:00 Miscellaneous Information 1 ea NOTE XX ; Start 07/31/16 at 16:30 Glucose (Glutose) 15 gm Q15M PRN PO DECREASED GLUCOSE; Start 07/31/16 at 16:30 Glucose (Glutose) 22.5 gm Q15M PRN PO DECREASED GLUCOSE; Start 07/31/16 at 16: 30 Dextrose (D50w Syringe) 25 ml Q15M PRN IV DECREASED GLUCOSE; Start 07/31/16 at 16:30 Dextrose (D50w Syringe) 50 ml Q15M PRN IV DECREASED GLUCOSE; Start 07/31/16 at 16:30 Glucagon (Glucagen) 1 mg Q15M PRN IM DECREASED GLUCOSE; Start 07/31/16 at 16:30 Glucose (Glutose) 15 gm Q15M PRN BUCCAL DECREASED GLUCOSE; Start 07/31/16 at 16 :30 Sodium Hypochlorite (Dakin'S (1/4 Strength)) 1 applic BID IRR Last administered on 08/25/16 10:21; Admin Dose 1 APPLIC; Start 08/01/16 at 21:00 Acetaminophen/ Hydrocodone Bitart ([place] (5/325)) 1 tab Q4H PRN PEG MODERATE PAIN LEVEL 4-6 Last administered on 08/19/16 21:53; Admin Dose 1 TAB; Start 08/02/16 at 00:00 Lorazepam (Ativan) 0.5 mg Q4H PRN IV ANXIETY Last administered on 08/25/16 07: 02; Admin Dose 0.5 MG; Start 08/02/16 at 00:00 Zolpidem Tartrate (Ambien) 10 mg HS PRN PEG INSOMNIA Last administered on 22:53; Admin Dose 10 MG; Start 08/02/16 at 03:30 Fluconazole (Diflucan) 100 mg DAILY PO Last administered on 08/25/16 08:23; Admin Dose 100 MG; Start 08/02/16 at 12:30 Ibuprofen (Motrin) 600 mg Q6H PRN PO PAIN OR TEMP ABOVE 38C Last administered on 08/11/16 21:29; Admin Dose 600 MG; Start 08/02/16 at 15:00 Zinc Sulfate (Zinc Sulfate) 220 mg DAILY GTB Last administered on 08/25/16 08: 23; Admin Dose 220 MG; Start 08/03/16 at 11:30 Multivitamins Therapeutic (Theragran) 1 tab DAILY PO Last administered on 08:23; Admin Dose 1 TAB; Start 08/03/16 at 11:30 Ascorbic Acid (Vitamin C) 500 mg BID GTB Last administered on 08/25/16 08:23; Admin Dose 500 MG; Start 08/03/16 at 11:30 Sodium Hypochlorite (Dakin'S (Dilute 1/40%)) 1 applic BID IRR Last administered on 08/25/16 10:21; Admin Dose 1 APPLIC; Start 08/04/16 at 12:00 Levothyroxine Sodium (Synthroid) 25 mcg DAILY@06 PO Last administered on 05:13; Admin Dose 25 MCG; Start 08/11/16 at 06:00 Paroxetine HCl (Paxil) 10 mg DAILY PO Last administered on 08/25/16 08:23; Admin Dose 10 MG; Start 08/11/16 at 21:00 Insulin Aspart (Novolog Insulin Pen) NOVOLOG *MODERATE* ALGORI... Q6 SC Last administered on 08/25/16 05:14; Admin Dose 2 UNIT; Start 08/13/16 at 00:00 Lactobacillus Acidoph/Bulgaricus (Floranex) 1 tab TID GTB Last administered on 08/25/16 13:05; Admin Dose 1 TAB; Start 08/15/16 at 21:30 Metformin HCl (Glucophage) 500 mg Q12 GTB Last administered on 08/25/16 08:23 ; Admin Dose 500 MG; Start 08/15/16 at 21:30 Linezolid (Zyvox) 600 mg BID GTB Last administered on 08/25/16 08:23; Admin Dose 600 MG; Start 08/15/16 at 21:30 Metronidazole (Flagyl) 500 mg Q8 GTB Last administered on 08/25/16 13:05; Admin Dose 500 MG; Start 08/15/16 at 22:00 Acetaminophen 650 mg 650 mg Q6H PRN GTB PAIN AND OR ELEVATED TEMP Last administered on 08/24/16 06:34; Admin Dose 650 MG; Start 08/15/16 at 21:30 Colistimethate Sodium/Sodium Chloride (Coly-Mycin/NS) 100 ml @ 200 mls/hr Q12 IVPB Last administered on 08/25/16 09:01; Admin Dose 200 MLS/HR; Start at 21:00 Magnesium Oxide (Mag-Ox 400) 400 mg DAILY GTB Last administered on 08/25/16 08 :23; Admin Dose 400 MG; Start 08/20/16 at 09:00 Enoxaparin Sodium (Lovenox) 40 mg DAILY SC Last administered on 08/25/16 08:37 ; Admin Dose 40 MG; Start 08/22/16 at 09:00 Famotidine (Pepcid) 20 mg DAILY GTB Last administered on 08/25/16 08:23; Admin Dose 20 MG; Start 08/22/16 at 09:00 Potassium Chloride (Potassium Chloride Pwd/Soln) 40 meq BID GTB Last administered on 08/25/16 08:24; Admin Dose 40 MEQ; Start 08/23/16 at 21:00 Hydromorphone HCl (Dilaudid) 1 mg Q6H PRN IV PAIN Last administered on 18:58; Admin Dose 1 MG; Start 08/24/16 at 18:00 ALISSON ARRIOLA Aug 25, 2016 15:53
--- NOTE | 2016-08-25 15:58 | PN ---
Date/Time of Note Date/Time of Note DATE: 08/25/16 TIME: 15:55 Assessment/Plan VTE Prophylaxis VTE Prophylaxis Intervention: LMWH Lines/Catheters IV Catheter Type (from [facility]): [facility] Urinary Cath still in place: Yes Reason Cath still needed: pres ulcer contaminated by urine Assessment/Plan Chief Complaint/Hosp Course S: 08/21-Wants to try speaking valve. 08/22-still having fever. tolerating feeds. no diarrhea. 08/23- sp bronch-essentially unremarkable 08/24- appears worse. tolerating feeds. stripper color overnight. 08/25-fever noted. Tolerating feeds. Thrush noted. Still hypoxic with repositioning. O: ST/ Tm PE Trach c/d/i. no pallor. Positive thrush Reg Dimin bs bilat; port - no drainage Bs + nt nd, no r/r/g. PEG c/d/i Ext- hypotonia. edema. Wound dressed. A/P 1) Sepsis; HCAP likely; stable, but failing to respond/resolved. sp bronch/atb' s. Will ask for palliative care. 2) Recurrent sepsis: wbc/temp/hypotension; Oliveira changed. Urine sent again. Will start treatment of thrush. 3) Decubitus wound/ MDR organisms. Diverting colostomy & debridement may not be feasible while on vent. quality of life will not improve post therapy. 4) Quadraplegia; poor prognosis; palliative care eval appreciated. 5) Ho C2 fracture 6) VDRF; cont vent 7) Ho c diff 8) Chr CHF/ systolic? 9) Past tobacco 10) Malnutrition; cont peg/feeds/free water. 11) Elevated Ca; Calcium dced. Problems: Exam/Review of Systems Vital Signs Vitals Vital Signs Date Time Temp Pulse Resp B/P Pulse Ox O2 Delivery O2 Flow Rate FiO2 08/25/16 13:25 121 24 96 50 08/25/16 12:15 99.3 85/53 08/24/16 05:46 Mechanical Ventilator Intake and Output 08/24/16 08/24/16 08/25/16 15:00 23:00 07:00 Intake Total 1350 ml 1150 ml Output Total 800 ml 600 ml Balance 550 ml 550 ml Results Result Diagram: 08/24/16 0608/24/16 06 Results 24 hrs Laboratory Tests Test 08/24/16 19:07 08/25/16 00:03 08/25/16 05:12 08/25/16 11:34 Bedside Glucose 133 140 148 126 Medications Medications Current Medications Ondansetron HCl (Zofran Inj) 4 mg Q6H PRN IV NAUSEA AND/OR VOMITING Last administered on 08/15/16 05:11; Admin Dose 4 MG; Start 07/31/16 at 15:00 Morphine Sulfate (morphine) 2 mg Q4H PRN IV SEVERE PAIN LEVEL 7-10 Last administered on 08/20/16 00:32; Admin Dose 2 MG; Start 07/31/16 at 15:00 Magnesium Hydroxide (Milk Of Mag) 30 ml DAILY PRN PO CONSTIPATION; Start at 15:00 Sodium Biphosphate/ Sodium Phosphate (Fleet Enema) 133 ml DAILY PRN [place] CONSTIPATION; Start 07/31/16 at 15:00 Hydralazine HCl (Apresoline) 10 mg Q6H PRN IV ELEVATED BLOOD PRESSURE; Start at 15:00 Nitroglycerin (Nitroglycerin (Sl Tab) 0.4 Mg) 1 tab Q5M PRN SL ANGINA; Start at 15:00 Miscellaneous Information 1 ea NOTE XX ; Start 07/31/16 at 16:30 Glucose (Glutose) 15 gm Q15M PRN PO DECREASED GLUCOSE; Start 07/31/16 at 16:30 Glucose (Glutose) 22.5 gm Q15M PRN PO DECREASED GLUCOSE; Start 07/31/16 at 16: 30 Dextrose (D50w Syringe) 25 ml Q15M PRN IV DECREASED GLUCOSE; Start 07/31/16 at 16:30 Dextrose (D50w Syringe) 50 ml Q15M PRN IV DECREASED GLUCOSE; Start 07/31/16 at 16:30 Glucagon (Glucagen) 1 mg Q15M PRN IM DECREASED GLUCOSE; Start 07/31/16 at 16:30 Glucose (Glutose) 15 gm Q15M PRN BUCCAL DECREASED GLUCOSE; Start 07/31/16 at 16 :30 Sodium Hypochlorite (Dakin'S (1/4 Strength)) 1 applic BID IRR Last administered on 08/25/16 10:21; Admin Dose 1 APPLIC; Start 08/01/16 at 21:00 Acetaminophen/ Hydrocodone Bitart ([place] (5/325)) 1 tab Q4H PRN PEG MODERATE PAIN LEVEL 4-6 Last administered on 08/19/16 21:53; Admin Dose 1 TAB; Start 08/02/16 at 00:00 Lorazepam (Ativan) 0.5 mg Q4H PRN IV ANXIETY Last administered on 08/25/16 07: 02; Admin Dose 0.5 MG; Start 08/02/16 at 00:00 Zolpidem Tartrate (Ambien) 10 mg HS PRN PEG INSOMNIA Last administered on 22:53; Admin Dose 10 MG; Start 08/02/16 at 03:30 Fluconazole (Diflucan) 100 mg DAILY PO Last administered on 08/25/16 08:23; Admin Dose 100 MG; Start 08/02/16 at 12:30 Ibuprofen (Motrin) 600 mg Q6H PRN PO PAIN OR TEMP ABOVE 38C Last administered on 08/11/16 21:29; Admin Dose 600 MG; Start 08/02/16 at 15:00 Zinc Sulfate (Zinc Sulfate) 220 mg DAILY GTB Last administered on 08/25/16 08: 23; Admin Dose 220 MG; Start 08/03/16 at 11:30 Multivitamins Therapeutic (Theragran) 1 tab DAILY PO Last administered on 08:23; Admin Dose 1 TAB; Start 08/03/16 at 11:30 Ascorbic Acid (Vitamin C) 500 mg BID GTB Last administered on 08/25/16 08:23; Admin Dose 500 MG; Start 08/03/16 at 11:30 Sodium Hypochlorite (Dakin'S (Dilute 1/40%)) 1 applic BID IRR Last administered on 08/25/16 10:21; Admin Dose 1 APPLIC; Start 08/04/16 at 12:00 Levothyroxine Sodium (Synthroid) 25 mcg DAILY@06 PO Last administered on 05:13; Admin Dose 25 MCG; Start 08/11/16 at 06:00 Paroxetine HCl (Paxil) 10 mg DAILY PO Last administered on 08/25/16 08:23; Admin Dose 10 MG; Start 08/11/16 at 21:00 Insulin Aspart (Novolog Insulin Pen) NOVOLOG *MODERATE* ALGORI... Q6 SC Last administered on 08/25/16 05:14; Admin Dose 2 UNIT; Start 08/13/16 at 00:00 Lactobacillus Acidoph/Bulgaricus (Floranex) 1 tab TID GTB Last administered on 08/25/16 13:05; Admin Dose 1 TAB; Start 08/15/16 at 21:30 Metformin HCl (Glucophage) 500 mg Q12 GTB Last administered on 08/25/16 08:23 ; Admin Dose 500 MG; Start 08/15/16 at 21:30 Linezolid (Zyvox) 600 mg BID GTB Last administered on 08/25/16 08:23; Admin Dose 600 MG; Start 08/15/16 at 21:30 Metronidazole (Flagyl) 500 mg Q8 GTB Last administered on 08/25/16 13:05; Admin Dose 500 MG; Start 08/15/16 at 22:00 Acetaminophen 650 mg 650 mg Q6H PRN GTB PAIN AND OR ELEVATED TEMP Last administered on 08/24/16 06:34; Admin Dose 650 MG; Start 08/15/16 at 21:30 Colistimethate Sodium/Sodium Chloride (Coly-Mycin/NS) 100 ml @ 200 mls/hr Q12 IVPB Last administered on 08/25/16 09:01; Admin Dose 200 MLS/HR; Start at 21:00 Magnesium Oxide (Mag-Ox 400) 400 mg DAILY GTB Last administered on 08/25/16 08 :23; Admin Dose 400 MG; Start 08/20/16 at 09:00 Enoxaparin Sodium (Lovenox) 40 mg DAILY SC Last administered on 08/25/16 08:37 ; Admin Dose 40 MG; Start 08/22/16 at 09:00 Famotidine (Pepcid) 20 mg DAILY GTB Last administered on 08/25/16 08:23; Admin Dose 20 MG; Start 08/22/16 at 09:00 Potassium Chloride (Potassium Chloride Pwd/Soln) 40 meq BID GTB Last administered on 08/25/16 08:24; Admin Dose 40 MEQ; Start 08/23/16 at 21:00 Hydromorphone HCl (Dilaudid) 1 mg Q6H PRN IV PAIN Last administered on 18:58; Admin Dose 1 MG; Start 08/24/16 at 18:00 MARY BETH HOUSTON MD Aug 25, 2016 15:58
[2016-08-25] MEDS ORDERED: FLUCONAZOLE 100 MG TAB GTB SCH (16:00)
[2016-08-25] MEDS: NYSTATIN SUSP 5 ML CUP PO SCH ×2 (17:20→21:40)
[2016-08-25 17:28] LABS: ADD UMIC YES; URINE BILIRUBIN (Dip) NEGATIVE (NEGATIVE); URINE BLOOD (Dip) 1+ (NEGATIVE); URINE COLOR LT. YELLOW (YELLOW); URINE GLUCOSE (Dip) NEGATIVE (NEGATIVE); URINE KETONES (Dip) NEGATIVE (NEGATIVE); URINE LEUKOCYTE ESTERASE (Dip) TRACE (NEGATIVE); URINE NITRITE (Dip) NEGATIVE (NEGATIVE); URINE TOTAL PROTEIN (Dip) 2+ (NEGATIVE); URINE UROBILINOGEN (Dip) 0.2 E.U./dL (0.1-1.0)
[2016-08-25] MEDS: HYDROCODONE/APAP (5/325) TAB PEG PRN ×2 (17:41→22:12)
[2016-08-25 18:06] LABS: SQUAMOUS EPITHELIAL CELL,UR FEW; URINE RBCS 0-2 /HPF (0)
[2016-08-25] MEDS: ACETAMINOPHEN 325 MG TAB GTB PRN (21:39)
[2016-08-26] VITALS (25 sets, daily range): BP systolic 90–112; BP diastolic 50–66; PULSE 99–120; RESP 18–24
[2016-08-26] MEDS: metroNIDAZOLE 500 MG TAB GTB SCH ×3 (05:36→21:42)
[2016-08-26] MEDS: LEVOTHYROXINE 25 MCG TAB PO SCH (05:36)
[2016-08-26] MEDS: INSULIN ASPART [NOVOLOG] 3 ML PEN SC SCH ×4 (05:45→17:22)
[2016-08-26 06:17] LABS: ADD SCAN DIFF NO
[2016-08-26 06:23] LABS: ABNORMAL IP MESSAGE 1; BASOPHILS % 0.2 % (0.0-2.0); EOSINOPHILS # 0.6 10^3/ul (0.0-0.5); EOSINOPHILS % 2.2 % (0.0-7.0); HEMATOCRIT 24.8 % (42.0-52.0); HEMOGLOBIN 7.4 g/dl (14.0-18.0); LYMPHOCYTES % 3.7 % (15.0-51.0); MEAN CORPUSCULAR HEMOGLOBIN 26.8 pg (29.0-33.0); MEAN CORPUSCULAR HGB CONC 29.8 g/dl (32.0-37.0); MEAN CORPUSCULAR VOLUME 89.9 fl (82.0-101.0); MEAN PLATELET VOLUME 10.4 fl (7.4-10.4); MONOCYTE # 1.4 10^3/ul (0.3-0.9); MONOCYTES % 5.3 % (0.0-11.0); NEUTROPHIL # 21.4 10^3/ul (1.6-7.5); NEUTROPHILS % 82.9 % (39.0-77.0); PLATELET COUNT 363 10^3/UL (140-415); RED BLOOD COUNT 2.76 10^6/ul (4.70-6.10); RED CELL DISTRIBUTION WIDTH 17.7 % (11.5-14.5); WHITE BLOOD COUNT 25.8 10^3/ul (4.8-10.8)
[2016-08-26 06:27] LABS: POTASSIUM 4.3 mmol/L (3.5-5.1)
[2016-08-26 06:29] LABS: CREATININE 0.62 mg/dl (0.61-1.24)
[2016-08-26 06:30] LABS: CALCIUM 12.4 mg/dl (8.4-10.2)
[2016-08-26] MEDS: ALBUTEROL HFA 8 GM INHALER INH SCH ×2 (07:31→17:15)
[2016-08-26] MEDS: FLUCONAZOLE 100 MG TAB GTB SCH (08:57)
[2016-08-26] MEDS: POTASSIUM CHLORIDE 20 MEQ POWDER FOR ORAL SOLN GTB SCH ×2 (08:57→21:41)
[2016-08-26] MEDS: MULTIVITAMINS THERAPEUTIC TAB PO SCH (08:57)
[2016-08-26] MEDS: MAGNESIUM OXIDE 400 MG TAB GTB SCH (08:57)
[2016-08-26] MEDS: FAMOTIDINE 20 MG TAB GTB SCH (08:57)
[2016-08-26] MEDS: ASCORBIC ACID 500 MG TAB GTB SCH ×2 (08:57→21:42)
[2016-08-26] MEDS: metFORMIN 500 MG TAB GTB SCH ×2 (08:57→21:42)
[2016-08-26] MEDS: ZINC SULFATE 220 MG CAP GTB SCH (08:57)
[2016-08-26] MEDS: NYSTATIN SUSP 5 ML CUP PO SCH ×4 (08:57→21:40)
[2016-08-26] MEDS: LACTOBACILLUS CHEW TAB GTB SCH ×3 (08:57→21:42)
[2016-08-26] MEDS: PAROXETINE 10 MG TAB PO SCH (08:57)
[2016-08-26] MEDS: SODIUM HYPOCHLORITE 0.125% 473 ML BTL IRR SCH ×3 (09:00→21:46)
[2016-08-26] MEDS: SODIUM HYPOCHLORITE 1/40% 1L IRRIG IRR SCH ×3 (09:00→21:42)
[2016-08-26] MEDS: COLISTIMETHATE 150 MG in SOD CHLORIDE 0.9% 100 ML IVPB SCH ×2 (10:52→21:40)
[2016-08-26] MEDS: ZYVOX 600 MG TAB GTB SCH ×2 (10:52→22:23)
[2016-08-26] MEDS: ENOXAPARIN 40 MG/0.4 ML SYG SC SCH ×2 (10:55→15:20)
--- NOTE | 2016-08-26 11:13 | CONS ---
Date/Time of Note Date/Time of Note DATE: 08/26/16 TIME: 11:10 Assessment/Plan Assessment/Plan Additional Assessment/Plan Ventilator settings; AC of 24, tidal volume of 500, PEEP of 5, 50% FiO2. Assessment recommendations; 3. The patient admitted for severe bilateral pneumonia. 2. Severe decubitus ulcers. 3. 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 We will see no spinal injury. 4. Systolic dysfunction. Continue current treatment. Patient will need to have a diverting colostomy performed and he is more stable. Meanwhile continue current antibiotics. Consultation Date/Type/Reason Admit Date/Time Jul 31, 2016 at 14:20 Initial Consult Date 08/02/16 Type of Consultation: Pulmonary 24 HR Interval Summary Free Text/Dictation Patient condition remains stable. Still requiring high FiO2 for O2 saturation maintenance. No fever spikes noted. General exam; young male, on ventilator via tracheostomy currently in no distress. Awake and alert. Exam/Review of Systems Vital Signs Vitals Vital Signs Date Time Temp Pulse Resp B/P Pulse Ox O2 Delivery O2 Flow Rate FiO2 08/26/16 09:05 112 24 97 50 08/26/16 08:20 99.0 111/62 08/24/16 05:46 Mechanical Ventilator Intake and Output 08/25/16 08/25/16 08/26/16 15:00 23:00 07:00 Intake Total 100 ml 1350 ml 780 ml Output Total 400 ml 1350 ml Balance 100 ml 950 ml -570 ml Exam HEENT exam; neck is in a C-spine collar. Tracheostomy in place. No lymphadenopathy. No neck masses. Pupils are midsize reactive to light. Pharynx is clear. Chest examination; diminished breath sound bilaterally with bibasilar crackles. S1-S2 audible, no murmurs. Regular rhythm. Abdomen examination; soft, G-tube in place. No organomegaly. Normal distention. Bowel sounds audible. Extremity exam is; no peripheral edema. Back examination revealed sacral decubitus ulcers involving the sacrum as well as upper hip areas. 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 Results Result Diagram: 08/26/16 0540 08/26/16 0540 Results 24 hrs Laboratory Tests Test 08/25/16 11:34 08/25/16 16:00 08/25/16 17:13 08/26/16 01:01 Bedside Glucose 126 140 133 Urine Color LT. YELLOW Urine Clarity CLOUDY H Urine pH 5.5 Urine Specific [place] 1.025 Urine Ketones NEGATIVE Urine Nitrite NEGATIVE Urine Bilirubin NEGATIVE Urine Urobilinogen 0.2 E.U./dL Urine Leukocyte Esterase TRACE H Urine Microscopic RBC 0-2 Urine Microscopic WBC 2-5 Urine Squamous Epithelial Cells FEW Urine Calcium Oxalate Crystals RARE Urine Granular Casts MODERATE Urine Hemoglobin 1+ H Urine Glucose NEGATIVE Urine Total Protein 2+ H Test 08/26/16 05:37 08/26/16 05:40 Bedside Glucose 112 White Blood Count 25.8 H Red Blood Count 2.76 L Hemoglobin 7.4 L Hematocrit 24.8 L Mean Corpuscular Volume 89.9 Mean Corpuscular Hemoglobin 26.8 L Mean Corpuscular Hemoglobin Concent 29.8 L Red Cell Distribution Width 17.7 H Platelet Count 363 Mean Platelet Volume 10.4 Neutrophils % 82.9 H Lymphocytes % 3.7 L Monocytes % 5.3 Eosinophils % 2.2 Basophils % 0.2 Nucleated Red Blood Cells % 0.0 Neutrophils # 21.4 H Lymphocytes # 1.0 Monocytes # 1.4 H Eosinophils # 0.6 H Basophils # 0.0 Nucleated Red Blood Cells # 0.0 Sodium Level 140 Potassium Level 4.3 Chloride Level 106 Carbon Dioxide Level 29 Anion Gap 9 # Blood Urea Nitrogen 44 H Creatinine 0.62 Glucose Level 106 Calcium Level 12.4 H Medications Medications Current Medications Ondansetron HCl (Zofran Inj) 4 mg Q6H PRN IV NAUSEA AND/OR VOMITING Last administered on 08/15/16 05:11; Admin Dose 4 MG; Start 07/31/16 at 15:00 Morphine Sulfate (morphine) 2 mg Q4H PRN IV SEVERE PAIN LEVEL 7-10 Last administered on 08/20/16 00:32; Admin Dose 2 MG; Start 07/31/16 at 15:00 Magnesium Hydroxide (Milk Of Mag) 30 ml DAILY PRN PO CONSTIPATION; Start at 15:00 Sodium Biphosphate/ Sodium Phosphate (Fleet Enema) 133 ml DAILY PRN [place] CONSTIPATION; Start 07/31/16 at 15:00 Hydralazine HCl (Apresoline) 10 mg Q6H PRN IV ELEVATED BLOOD PRESSURE; Start at 15:00 Nitroglycerin (Nitroglycerin (Sl Tab) 0.4 Mg) 1 tab Q5M PRN SL ANGINA; Start at 15:00 Miscellaneous Information 1 ea NOTE XX ; Start 07/31/16 at 16:30 Glucose (Glutose) 15 gm Q15M PRN PO DECREASED GLUCOSE; Start 07/31/16 at 16:30 Glucose (Glutose) 22.5 gm Q15M PRN PO DECREASED GLUCOSE; Start 07/31/16 at 16: 30 Dextrose (D50w Syringe) 25 ml Q15M PRN IV DECREASED GLUCOSE; Start 07/31/16 at 16:30 Dextrose (D50w Syringe) 50 ml Q15M PRN IV DECREASED GLUCOSE; Start 07/31/16 at 16:30 Glucagon (Glucagen) 1 mg Q15M PRN IM DECREASED GLUCOSE; Start 07/31/16 at 16:30 Glucose (Glutose) 15 gm Q15M PRN BUCCAL DECREASED GLUCOSE; Start 07/31/16 at 16 :30 Sodium Hypochlorite (Dakin'S (1/4 Strength)) 1 applic BID IRR Last administered on 08/25/16 21:41; Admin Dose 1 APPLIC; Start 08/01/16 at 21:00 Acetaminophen/ Hydrocodone Bitart ([place] (5/325)) 1 tab Q4H PRN PEG MODERATE PAIN LEVEL 4-6 Last administered on 08/25/16 22:12; Admin Dose 1 TAB; Start 08/02/16 at 00:00 Lorazepam (Ativan) 0.5 mg Q4H PRN IV ANXIETY Last administered on 08/25/16 07: 02; Admin Dose 0.5 MG; Start 08/02/16 at 00:00 Zolpidem Tartrate (Ambien) 10 mg HS PRN PEG INSOMNIA Last administered on 22:53; Admin Dose 10 MG; Start 08/02/16 at 03:30 Ibuprofen (Motrin) 600 mg Q6H PRN PO PAIN OR TEMP ABOVE 38C Last administered on 08/11/16 21:29; Admin Dose 600 MG; Start 08/02/16 at 15:00 Zinc Sulfate (Zinc Sulfate) 220 mg DAILY GTB Last administered on 08/26/16 08: 57; Admin Dose 220 MG; Start 08/03/16 at 11:30 Multivitamins Therapeutic (Theragran) 1 tab DAILY PO Last administered on 08:57; Admin Dose 1 TAB; Start 08/03/16 at 11:30 Ascorbic Acid (Vitamin C) 500 mg BID GTB Last administered on 08/26/16 08:57; Admin Dose 500 MG; Start 08/03/16 at 11:30 Sodium Hypochlorite (Dakin'S (Dilute 1/40%)) 1 applic BID IRR Last administered on 08/25/16 21:42; Admin Dose 1 APPLIC; Start 08/04/16 at 12:00 Levothyroxine Sodium (Synthroid) 25 mcg DAILY@06 PO Last administered on 05:36; Admin Dose 25 MCG; Start 08/11/16 at 06:00 Paroxetine HCl (Paxil) 10 mg DAILY PO Last administered on 08/26/16 08:57; Admin Dose 10 MG; Start 08/11/16 at 21:00 Insulin Aspart (Novolog Insulin Pen) NOVOLOG *MODERATE* ALGORI... Q6 SC Last administered on 08/25/16 05:14; Admin Dose 2 UNIT; Start 08/13/16 at 00:00 Lactobacillus Acidoph/Bulgaricus (Floranex) 1 tab TID GTB Last administered on 08/26/16 08:57; Admin Dose 1 TAB; Start 08/15/16 at 21:30 Metformin HCl (Glucophage) 500 mg Q12 GTB Last administered on 08/26/16 08:57 ; Admin Dose 500 MG; Start 08/15/16 at 21:30 Linezolid (Zyvox) 600 mg BID GTB Last administered on 08/26/16 10:52; Admin Dose 600 MG; Start 08/15/16 at 21:30 Metronidazole (Flagyl) 500 mg Q8 GTB Last administered on 08/26/16 05:36; Admin Dose 500 MG; Start 08/15/16 at 22:00 Acetaminophen 650 mg 650 mg Q6H PRN GTB PAIN AND OR ELEVATED TEMP Last administered on 08/25/16 21:39; Admin Dose 650 MG; Start 08/15/16 at 21:30 Colistimethate Sodium/Sodium Chloride (Coly-Mycin/NS) 100 ml @ 200 mls/hr Q12 IVPB Last administered on 08/26/16 10:52; Admin Dose 200 MLS/HR; Start at 21:00 Magnesium Oxide (Mag-Ox 400) 400 mg DAILY GTB Last administered on 08/26/16 08 :57; Admin Dose 400 MG; Start 08/20/16 at 09:00 Enoxaparin Sodium (Lovenox) 40 mg DAILY SC Last administered on 08/25/16 08:37 ; Admin Dose 40 MG; Start 08/22/16 at 09:00 Famotidine (Pepcid) 20 mg DAILY GTB Last administered on 08/26/16 08:57; Admin Dose 20 MG; Start 08/22/16 at 09:00 Potassium Chloride (Potassium Chloride Pwd/Soln) 40 meq BID GTB Last administered on 08/26/16 08:57; Admin Dose 40 MEQ; Start 08/23/16 at 21:00 Hydromorphone HCl (Dilaudid) 1 mg Q6H PRN IV PAIN Last administered on 18:58; Admin Dose 1 MG; Start 08/24/16 at 18:00 Nystatin (Nystatin Susp) 5 ml QID PO Last administered on 08/26/16 08:57; Admin Dose 5 ML; Start 08/25/16 at 17:00 Fluconazole (Diflucan) 100 mg DAILY GTB Last administered on 08/26/16 08:57; Admin Dose 100 MG; Start 08/25/16 at 16:05 ALISSON ARRIOLA Aug 26, 2016 11:12
[2016-08-26] MEDS: HYDROCODONE/APAP (5/325) TAB PEG PRN ×2 (13:10→22:23)
[2016-08-26] MEDS: LORAZEPAM 2 MG INJ IV PRN ×2 (13:29→18:05)
--- NOTE | 2016-08-26 15:31 | PN ---
Date/Time of Note Date/Time of Note DATE: 08/26/16 TIME: 15:29 Assessment/Plan VTE Prophylaxis VTE Prophylaxis Intervention: LMWH Lines/Catheters IV C[facility]ter Type (from [facility]): Saline Lock Urinary Cath still in place: Yes Reason Cath still needed: pres ulcer contaminated by urine Assessment/Plan Chief Complaint/Hosp Course S: 08/21-Wants to try speaking valve. 08/22-still having fever. tolerating feeds. no diarrhea. 08/23- sp bronch-essentially unremarkable 08/24- appears worse. tolerating feeds. 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 08/25-fever noted. Tolerating feeds. Thrush noted. Still hypoxic with repositioning. 08/26-tolerating feeds. Refused nystatin oral care. O: ST PE Trach c/d/i. no pallor. Positive thrush Reg Dimin bs bilat; port - no drainage Bs + nt nd, no r/r/g. PEG c/d/i Ext- hypotonia. edema. Wound dressed. A/P 1) Sepsis; HCAP likely; stable, but failing to respond/resolved. sp bronch/atb' s. Will ask for palliative care. 2) Recurrent sepsis: wbc/temp/hypotension; Oliveira changed. Influenza negative. Urine sent again. Will start treatment of thrush. Line infection? 3) Decubitus wound/ MDR organisms. Diverting colostomy & debridement may not be feasible while on vent. quality of life will not improve post therapy. 4) Quadraplegia; poor prognosis; palliative care eval appreciated. 5) Ho C2 fracture 6) VDRF; cont vent 7) Ho c diff 8) Chr CHF/ systolic? 9) Past tobacco 10) Malnutrition; cont peg/feeds/free water. 11) Elevated Ca; Calcium dced. Still high! Problems: Exam/Review of Systems Vital Signs Vitals Vital Signs Date Time Temp Pulse Resp B/P Pulse Ox O2 Delivery O2 Flow Rate FiO2 08/26/16 13:25 115 24 98 50 08/26/16 11:10 98.6 105/57 08/24/16 05:46 Mechanical Ventilator Intake and Output 08/25/16 08/25/16 08/26/16 14:59 22:59 06:59 Intake Total 100 ml 1250 ml 880 ml Output Total 400 ml 1350 ml Balance 100 ml 850 ml -470 ml Results Result Diagram: 08/26/16 0540 08/26/16 0540 Results 24 hrs Laboratory Tests Test 08/25/16 16:00 08/25/16 17:13 08/26/16 01:01 08/26/16 05:37 Urine Color LT. YELLOW Urine Clarity CLOUDY H Urine pH 5.5 Urine Specific [place] 1.025 Urine Ketones NEGATIVE Urine Nitrite NEGATIVE Urine Bilirubin NEGATIVE Urine Urobilinogen 0.2 E.U./dL Urine Leukocyte Esterase TRACE H Urine Microscopic RBC 0-2 Urine Microscopic WBC 2-5 Urine Squamous Epithelial Cells FEW Urine Calcium Oxalate Crystals RARE Urine Granular Casts MODERATE Urine Hemoglobin 1+ H Urine Glucose NEGATIVE Urine Total Protein 2+ H Bedside Glucose 140 133 112 Test 08/26/16 05:40 08/26/16 11:58 White Blood Count 25.8 H Red Blood Count 2.76 L Hemoglobin 7.4 L Hematocrit 24.8 L Mean Corpuscular Volume 89.9 Mean Corpuscular Hemoglobin 26.8 L Mean Corpuscular Hemoglobin Concent 29.8 L Red Cell Distribution Width 17.7 H Platelet Count 363 Mean Platelet Volume 10.4 Neutrophils % 82.9 H Lymphocytes % 3.7 L Monocytes % 5.3 Eosinophils % 2.2 Basophils % 0.2 Nucleated Red Blood Cells % 0.0 Neutrophils # 21.4 H Lymphocytes # 1.0 Monocytes # 1.4 H Eosinophils # 0.6 H Basophils # 0.0 Nucleated Red Blood Cells # 0.0 Sodium Level 140 Potassium Level 4.3 Chloride Level 106 Carbon Dioxide Level 29 Anion Gap 9 # Blood Urea Nitrogen 44 H Creatinine 0.62 Glucose Level 106 Calcium Level 12.4 H Bedside Glucose 125 Medications Medications Current Medications Ondansetron HCl (Zofran Inj) 4 mg Q6H PRN IV NAUSEA AND/OR VOMITING Last administered on 08/15/16 05:11; Admin Dose 4 MG; Start 07/31/16 at 15:00 Morphine Sulfate (morphine) 2 mg Q4H PRN IV SEVERE PAIN LEVEL 7-10 Last administered on 08/20/16 00:32; Admin Dose 2 MG; Start 07/31/16 at 15:00 Magnesium Hydroxide (Milk Of Mag) 30 ml DAILY PRN PO CONSTIPATION; Start at 15:00 Sodium Biphosphate/ Sodium Phosphate (Fleet Enema) 133 ml DAILY PRN [place] CONSTIPATION; Start 07/31/16 at 15:00 Hydralazine HCl (Apresoline) 10 mg Q6H PRN IV ELEVATED BLOOD PRESSURE; Start at 15:00 Nitroglycerin (Nitroglycerin (Sl Tab) 0.4 Mg) 1 tab Q5M PRN SL ANGINA; Start at 15:00 Miscellaneous Information 1 ea NOTE XX ; Start 07/31/16 at 16:30 Glucose (Glutose) 15 gm Q15M PRN PO DECREASED GLUCOSE; Start 07/31/16 at 16:30 Glucose (Glutose) 22.5 gm Q15M PRN PO DECREASED GLUCOSE; Start 07/31/16 at 16: 30 Dextrose (D50w Syringe) 25 ml Q15M PRN IV DECREASED GLUCOSE; Start 07/31/16 at 16:30 Dextrose (D50w Syringe) 50 ml Q15M PRN IV DECREASED GLUCOSE; Start 07/31/16 at 16:30 Glucagon (Glucagen) 1 mg Q15M PRN IM DECREASED GLUCOSE; Start 07/31/16 at 16:30 Glucose (Glutose) 15 gm Q15M PRN BUCCAL DECREASED GLUCOSE; Start 07/31/16 at 16 :30 Sodium Hypochlorite (Dakin'S (1/4 Strength)) 1 applic BID IRR Last administered on 08/26/16 11:47; Admin Dose 1 APPLIC; Start 08/01/16 at 21:00 Acetaminophen/ Hydrocodone Bitart ([place] (5/325)) 1 tab Q4H PRN PEG MODERATE PAIN LEVEL 4-6 Last administered on 08/26/16 13:10; Admin Dose 1 TAB; Start 08/02/16 at 00:00 Lorazepam (Ativan) 0.5 mg Q4H PRN IV ANXIETY Last administered on 08/26/16 13: 29; Admin Dose 0.5 MG; Start 08/02/16 at 00:00 Zolpidem Tartrate (Ambien) 10 mg HS PRN PEG INSOMNIA Last administered on 22:53; Admin Dose 10 MG; Start 08/02/16 at 03:30 Ibuprofen (Motrin) 600 mg Q6H PRN PO PAIN OR TEMP ABOVE 38C Last administered on 08/11/16 21:29; Admin Dose 600 MG; Start 08/02/16 at 15:00 Zinc Sulfate (Zinc Sulfate) 220 mg DAILY GTB Last administered on 08/26/16 08: 57; Admin Dose 220 MG; Start 08/03/16 at 11:30 Multivitamins Therapeutic (Theragran) 1 tab DAILY PO Last administered on 08:57; Admin Dose 1 TAB; Start 08/03/16 at 11:30 Ascorbic Acid (Vitamin C) 500 mg BID GTB Last administered on 08/26/16 08:57; Admin Dose 500 MG; Start 08/03/16 at 11:30 Sodium Hypochlorite (Dakin'S (Dilute 1/40%)) 1 applic BID IRR Last administered on 08/26/16 11:47; Admin Dose 1 APPLIC; Start 08/04/16 at 12:00 Levothyroxine Sodium (Synthroid) 25 mcg DAILY@06 PO Last administered on 05:36; Admin Dose 25 MCG; Start 08/11/16 at 06:00 Paroxetine HCl (Paxil) 10 mg DAILY PO Last administered on 08/26/16 08:57; Admin Dose 10 MG; Start 08/11/16 at 21:00 Insulin Aspart (Novolog Insulin Pen) NOVOLOG *MODERATE* ALGORI... Q6 SC Last administered on 08/25/16 05:14; Admin Dose 2 UNIT; Start 08/13/16 at 00:00 Lactobacillus Acidoph/Bulgaricus (Floranex) 1 tab TID GTB Last administered on 08/26/16 13:10; Admin Dose 1 TAB; Start 08/15/16 at 21:30 Metformin HCl (Glucophage) 500 mg Q12 GTB Last administered on 08/26/16 08:57 ; Admin Dose 500 MG; Start 08/15/16 at 21:30 Linezolid (Zyvox) 600 mg BID GTB Last administered on 08/26/16 10:52; Admin Dose 600 MG; Start 08/15/16 at 21:30 Metronidazole (Flagyl) 500 mg Q8 GTB Last administered on 08/26/16 13:10; Admin Dose 500 MG; Start 08/15/16 at 22:00 Acetaminophen 650 mg 650 mg Q6H PRN GTB PAIN AND OR ELEVATED TEMP Last administered on 08/25/16 21:39; Admin Dose 650 MG; Start 08/15/16 at 21:30 Colistimethate Sodium/Sodium Chloride (Coly-Mycin/NS) 100 ml @ 200 mls/hr Q12 IVPB Last administered on 08/26/16 10:52; Admin Dose 200 MLS/HR; Start at 21:00 Magnesium Oxide (Mag-Ox 400) 400 mg DAILY GTB Last administered on 08/26/16 08 :57; Admin Dose 400 MG; Start 08/20/16 at 09:00 Enoxaparin Sodium (Lovenox) 40 mg DAILY SC Last administered on 08/26/16 15:20 ; Admin Dose 40 MG; Start 08/22/16 at 09:00 Famotidine (Pepcid) 20 mg DAILY GTB Last administered on 08/26/16 08:57; Admin Dose 20 MG; Start 08/22/16 at 09:00 Potassium Chloride (Potassium Chloride Pwd/Soln) 40 meq BID GTB Last administered on 08/26/16 08:57; Admin Dose 40 MEQ; Start 08/23/16 at 21:00 Hydromorphone HCl (Dilaudid) 1 mg Q6H PRN IV PAIN Last administered on 18:58; Admin Dose 1 MG; Start 08/24/16 at 18:00 Nystatin (Nystatin Susp) 5 ml QID PO Last administered on 08/26/16 08:57; Admin Dose 5 ML; Start 08/25/16 at 17:00 Fluconazole (Diflucan) 100 mg DAILY GTB Last administered on 08/26/16 08:57; Admin Dose 100 MG; Start 08/25/16 at 16:05 MARY BETH HOUSTON MD Aug 26, 2016 15:31
--- NOTE | 2016-08-26 18:56 | CONS ---
Date/Time of Note Date/Time of Note DATE: 08/26/16 TIME: 18:53 Assessment/Plan Assessment/Plan Chief Complaint/Hosp Course ID PROGRESS NOTE TOTAL ABX DAY => Zyvox #22, Colistin IV, Diflucan, Flagyl 24H INTERVAL SUMMARY POD # 3 s/p Bronch (+)PSAR 08/23/16 BAL w/CXR 08/22 => DENSE consolidation * Awake, alert, doing OK - has Dilaudid onboard for pain meds * s/p CATHFlow to Port-A-Cath SAT night -- now with rising WBC ? line sepsis? * WBC rising today on multiple ABX ? * Low grade temps on off - Persisting => 08/25/ urine (-) 24H; 08/25 C.Diff (-) * WBC scan was negative oll: 08/25/16-1599 Rcvd: 08/25/16-1656 Source: [facility] CATH Sp Descrip: Microbiology URINE CULTURE Preliminary NO GROWTH AFTER 24 HOURS PHYSICAL EXAMINATION: GENERAL: 46 yo M HEENT/Neck: Trach C-Spine collar NCHEST: Equal chest rise bilaterally, without dyspnea on observation HEART: Pulse RRR ABDOMEN: Soft EXTREMITIES: Warm SKIN: See hard chart skin assessment: multiple STG IV Decubs ID ASSESSMENT: 46 yo M w/C-spine injury w/paraplegia->s/p spinal surgery admit with: 1. SIRS w/on-on low grade fevers + rising WBC -> Multifactorial due to wounds, invasives, reactive * s/p Sepsis on admission w/ fever, hypotension and tachycardia => multifactorial * BCx (-) to date * Afebrile today w/(+)low grade temps on/off ~100.+ * CT C-spine 08/12/16: No evidence spinal abscess/Infx * WBC Scan 08/13/16: No evidence infection 2. HCAP broncho-PNA * s/p Bronch 08/23/16 =? BAL (+)PSAR * CT: Scattered bronchial wall thickening, centrilobular nodules, tree in bud nodularity, and bronchocentric consolidation consistent with multifocal bronchitis/bronchiolitis/bronchopneumonia. Areas of bronchocentric scarring is also seen throughout the lungs suggestive of chronic recurrent infections. 3. Neurogenic bladder w/indwelling FC 4. Recurrent UTI's = CRI w/justification to keep FC due to incontinence wounds, concern urinary retention * Several small nonobstructing bilateral renal calculi. * Diffuse bladder wall thickening 5. Multiple infx decubs: Buttock/Back x 4 = STG IV / bilateral heels WOUND CULTURE Final Organism 1 KLEB PNEUMONIAE CARBAPENEMASE QUANTITY 3+ . MULTI DRUG RESISTANT ORGANISM Organism 2 ACINETOBACTER BAUMANNII QUANTITY 2+ Organism 3 VANCO RESISTANT ENTEROCOCCUS QUANTITY ISOLATED FROM BROTH ONLY . MULTI DRUG RESISTANT ORGANISM Organism 4 PROTEUS MIRABILIS QUANTITY SCANT GROWTH 6. Diarrhea = TF + ABX associated 7. Poor wound healing / protein sawyer malnutrition * On MVI, VitC, Zinc supplements 8. DMT2 ?Peripheral neuropathy 9. Depression=> situational related to current illness * industrial staff nurse alerted patient at times declines wound care, turning, ?if due to frequent presence of female visitors in the room? * Encourage patient importance of turning and wound care compliance w/nursing staff (-)MRSA Nares INVASIVES: Trach/Peg/FC/L-Chest Port/C-spine hardware ABX ALLERGY: KNDA CURRENT ABX: => Zyvox #22, Colistin IV, Diflucan, Flagyl s/p Cefepime ID RECOMMENDATIONS: 1. Continue current ABX * => consider DC all ABX on Saturday for ABX holiday 2. s/p CATHFlow to Port-A-Cath last pm -- now with rising WBC ? line sepsis? * 08/25/16 Urine (-) 24H * 08/25/16 C.Diff (-) 24H 3. Diarrhea contaminating wound = Needs diverting colostomy 4. Per notes: Not a good candidate for wound dbride due to concern would lead to chronic non-healing wound . Problems: Consultation Date/Type/Reason Admit Date/Time Jul 31, 2016 at 14:20 Initial Consult Date 08/02/16 Type of Consultation: ID Exam/Review of Systems Vital Signs Vitals Vital Signs Date Time Temp Pulse Resp B/P Pulse Ox O2 Delivery O2 Flow Rate FiO2 08/26/16 17:10 114 24 98 50 08/26/16 15:53 98.3 112/64 08/24/16 05:46 Mechanical Ventilator Intake and Output 08/25/16 08/25/16 08/26/16 15:00 23:00 07:00 Intake Total 100 ml 1350 ml 780 ml Output Total 400 ml 1350 ml Balance 100 ml 950 ml -570 ml Results Result Diagram: 08/26/16 0540 08/26/16 0540 Results 24 hrs Laboratory Tests Test 08/26/16 01:01 08/26/16 05:37 08/26/16 05:40 08/26/16 11:58 Bedside Glucose 133 112 125 White Blood Count 25.8 H Red Blood Count 2.76 L Hemoglobin 7.4 L Hematocrit 24.8 L Mean Corpuscular Volume 89.9 Mean Corpuscular Hemoglobin 26.8 L Mean Corpuscular Hemoglobin Concent 29.8 L Red Cell Distribution Width 17.7 H Platelet Count 363 Mean Platelet Volume 10.4 Neutrophils % 82.9 H Lymphocytes % 3.7 L Monocytes % 5.3 Eosinophils % 2.2 Basophils % 0.2 Nucleated Red Blood Cells % 0.0 Neutrophils # 21.4 H Lymphocytes # 1.0 Monocytes # 1.4 H Eosinophils # 0.6 H Basophils # 0.0 Nucleated Red Blood Cells # 0.0 Sodium Level 140 Potassium Level 4.3 Chloride Level 106 Carbon Dioxide Level 29 Anion Gap 9 # Blood Urea Nitrogen 44 H Creatinine 0.62 Glucose Level 106 Calcium Level 12.4 H Test 08/26/16 17:18 Bedside Glucose 131 Medications Medications Current Medications Ondansetron HCl (Zofran Inj) 4 mg Q6H PRN IV NAUSEA AND/OR VOMITING Last administered on 08/15/16 05:11; Admin Dose 4 MG; Start 07/31/16 at 15:00 Morphine Sulfate (morphine) 2 mg Q4H PRN IV SEVERE PAIN LEVEL 7-10 Last administered on 08/20/16 00:32; Admin Dose 2 MG; Start 07/31/16 at 15:00 Magnesium Hydroxide (Milk Of Mag) 30 ml DAILY PRN PO CONSTIPATION; Start at 15:00 Sodium Biphosphate/ Sodium Phosphate (Fleet Enema) 133 ml DAILY PRN [place] CONSTIPATION; Start 07/31/16 at 15:00 Hydralazine HCl (Apresoline) 10 mg Q6H PRN IV ELEVATED BLOOD PRESSURE; Start at 15:00 Nitroglycerin (Nitroglycerin (Sl Tab) 0.4 Mg) 1 tab Q5M PRN SL ANGINA; Start at 15:00 Miscellaneous Information 1 ea NOTE XX ; Start 07/31/16 at 16:30 Glucose (Glutose) 15 gm Q15M PRN PO DECREASED GLUCOSE; Start 07/31/16 at 16:30 Glucose (Glutose) 22.5 gm Q15M PRN PO DECREASED GLUCOSE; Start 07/31/16 at 16: 30 Dextrose (D50w Syringe) 25 ml Q15M PRN IV DECREASED GLUCOSE; Start 07/31/16 at 16:30 Dextrose (D50w Syringe) 50 ml Q15M PRN IV DECREASED GLUCOSE; Start 07/31/16 at 16:30 Glucagon (Glucagen) 1 mg Q15M PRN IM DECREASED GLUCOSE; Start 07/31/16 at 16:30 Glucose (Glutose) 15 gm Q15M PRN BUCCAL DECREASED GLUCOSE; Start 07/31/16 at 16 :30 Sodium Hypochlorite (Dakin'S (1/4 Strength)) 1 applic BID IRR Last administered on 08/26/16 11:47; Admin Dose 1 APPLIC; Start 08/01/16 at 21:00 Acetaminophen/ Hydrocodone Bitart ([place] (5/325)) 1 tab Q4H PRN PEG MODERATE PAIN LEVEL 4-6 Last administered on 08/26/16 13:10; Admin Dose 1 TAB; Start 08/02/16 at 00:00 Lorazepam (Ativan) 0.5 mg Q4H PRN IV ANXIETY Last administered on 08/26/16 18: 05; Admin Dose 0.5 MG; Start 08/02/16 at 00:00 Zolpidem Tartrate (Ambien) 10 mg HS PRN PEG INSOMNIA Last administered on 22:53; Admin Dose 10 MG; Start 08/02/16 at 03:30 Ibuprofen (Motrin) 600 mg Q6H PRN PO PAIN OR TEMP ABOVE 38C Last administered on 08/11/16 21:29; Admin Dose 600 MG; Start 08/02/16 at 15:00 Zinc Sulfate (Zinc Sulfate) 220 mg DAILY GTB Last administered on 08/26/16 08: 57; Admin Dose 220 MG; Start 08/03/16 at 11:30 Multivitamins Therapeutic (Theragran) 1 tab DAILY PO Last administered on 08:57; Admin Dose 1 TAB; Start 08/03/16 at 11:30 Ascorbic Acid (Vitamin C) 500 mg BID GTB Last administered on 08/26/16 08:57; Admin Dose 500 MG; Start 08/03/16 at 11:30 Sodium Hypochlorite (Dakin'S (Dilute 1/40%)) 1 applic BID IRR Last administered on 08/26/16 11:47; Admin Dose 1 APPLIC; Start 08/04/16 at 12:00 Levothyroxine Sodium (Synthroid) 25 mcg DAILY@06 PO Last administered on 05:36; Admin Dose 25 MCG; Start 08/11/16 at 06:00 Paroxetine HCl (Paxil) 10 mg DAILY PO Last administered on 08/26/16 08:57; Admin Dose 10 MG; Start 08/11/16 at 21:00 Insulin Aspart (Novolog Insulin Pen) NOVOLOG *MODERATE* ALGORI... Q6 SC Last administered on 08/25/16 05:14; Admin Dose 2 UNIT; Start 08/13/16 at 00:00 Lactobacillus Acidoph/Bulgaricus (Floranex) 1 tab TID GTB Last administered on 08/26/16 13:10; Admin Dose 1 TAB; Start 08/15/16 at 21:30 Metformin HCl (Glucophage) 500 mg Q12 GTB Last administered on 08/26/16 08:57 ; Admin Dose 500 MG; Start 08/15/16 at 21:30 Linezolid (Zyvox) 600 mg BID GTB Last administered on 08/26/16 10:52; Admin Dose 600 MG; Start 08/15/16 at 21:30 Metronidazole (Flagyl) 500 mg Q8 GTB Last administered on 08/26/16 13:10; Admin Dose 500 MG; Start 08/15/16 at 22:00 Acetaminophen 650 mg 650 mg Q6H PRN GTB PAIN AND OR ELEVATED TEMP Last administered on 08/25/16 21:39; Admin Dose 650 MG; Start 08/15/16 at 21:30 Colistimethate Sodium/Sodium Chloride (Coly-Mycin/NS) 100 ml @ 200 mls/hr Q12 IVPB Last administered on 08/26/16 10:52; Admin Dose 200 MLS/HR; Start at 21:00 Magnesium Oxide (Mag-Ox 400) 400 mg DAILY GTB Last administered on 08/26/16 08 :57; Admin Dose 400 MG; Start 08/20/16 at 09:00 Enoxaparin Sodium (Lovenox) 40 mg DAILY SC Last administered on 08/26/16 15:20 ; Admin Dose 40 MG; Start 08/22/16 at 09:00 Famotidine (Pepcid) 20 mg DAILY GTB Last administered on 08/26/16 08:57; Admin Dose 20 MG; Start 08/22/16 at 09:00 Potassium Chloride (Potassium Chloride Pwd/Soln) 40 meq BID GTB Last administered on 08/26/16 08:57; Admin Dose 40 MEQ; Start 08/23/16 at 21:00 Hydromorphone HCl (Dilaudid) 1 mg Q6H PRN IV PAIN Last administered on 18:58; Admin Dose 1 MG; Start 08/24/16 at 18:00 Nystatin (Nystatin Susp) 5 ml QID PO Last administered on 08/26/16 08:57; Admin Dose 5 ML; Start 08/25/16 at 17:00 Fluconazole (Diflucan) 100 mg DAILY GTB Last administered on 08/26/16 08:57; Admin Dose 100 MG; Start 08/25/16 at 16:05 ELOY PELAEZ NP Aug 26, 2016 18:56
[2016-08-27] VITALS (30 sets, daily range): BP systolic 81–99; BP diastolic 43–58; PULSE 114–126; RESP 15–26
[2016-08-27] MEDS: metroNIDAZOLE 500 MG TAB GTB SCH (05:33)
[2016-08-27] MEDS: ACETAMINOPHEN 325 MG TAB GTB PRN (05:33)
[2016-08-27] MEDS: LEVOTHYROXINE 25 MCG TAB PO SCH (05:33)
[2016-08-27] MEDS: INSULIN ASPART [NOVOLOG] 3 ML PEN SC SCH ×5 (06:00→22:14)
[2016-08-27 07:16] LABS: ADD SCAN DIFF NO
[2016-08-27] MEDS: ALBUTEROL HFA 8 GM INHALER INH SCH ×3 (07:25→20:05)
[2016-08-27 07:26] LABS: ABNORMAL IP MESSAGE 1; BASOPHILS % 0.2 % (0.0-2.0); EOSINOPHILS # 0.5 10^3/ul (0.0-0.5); EOSINOPHILS % 2.4 % (0.0-7.0); HEMATOCRIT 25.6 % (42.0-52.0); HEMOGLOBIN 7.5 g/dl (14.0-18.0); LYMPHOCYTES # 0.6 10^3/ul (0.8-2.9); MEAN CORPUSCULAR HEMOGLOBIN 26.4 pg (29.0-33.0); MEAN CORPUSCULAR HGB CONC 29.3 g/dl (32.0-37.0); MEAN CORPUSCULAR VOLUME 90.1 fl (82.0-101.0); MEAN PLATELET VOLUME 10.4 fl (7.4-10.4); MONOCYTE # 0.9 10^3/ul (0.3-0.9); MONOCYTES % 4.3 % (0.0-11.0); NEUTROPHIL # 17.9 10^3/ul (1.6-7.5); NEUTROPHILS % 84.6 % (39.0-77.0); PLATELET COUNT 395 10^3/UL (140-415); RED BLOOD COUNT 2.84 10^6/ul (4.70-6.10); RED CELL DISTRIBUTION WIDTH 17.5 % (11.5-14.5); WHITE BLOOD COUNT 21.2 10^3/ul (4.8-10.8)
[2016-08-27 07:45] LABS: POTASSIUM 4.2 mmol/L (3.5-5.1)
[2016-08-27 07:48] LABS: CREATININE 0.56 mg/dl (0.61-1.24)
[2016-08-27] MEDS: MAGNESIUM OXIDE 400 MG TAB GTB SCH (08:54)
[2016-08-27] MEDS: metFORMIN 500 MG TAB GTB SCH (08:54)
[2016-08-27] MEDS: MULTIVITAMINS THERAPEUTIC TAB PO SCH (08:54)
[2016-08-27] MEDS: FLUCONAZOLE 100 MG TAB GTB SCH (08:54)
[2016-08-27] MEDS: PAROXETINE 10 MG TAB PO SCH (08:54)
[2016-08-27] MEDS: ASCORBIC ACID 500 MG TAB GTB SCH ×2 (08:54→21:58)
[2016-08-27] MEDS: NYSTATIN SUSP 5 ML CUP PO SCH ×4 (08:54→21:58)
[2016-08-27] MEDS: FAMOTIDINE 20 MG TAB GTB SCH (08:54)
[2016-08-27] MEDS: LACTOBACILLUS CHEW TAB GTB SCH ×3 (08:54→21:58)
[2016-08-27] MEDS: COLISTIMETHATE 150 MG in SOD CHLORIDE 0.9% 100 ML IVPB SCH (08:55)
[2016-08-27] MEDS: SODIUM HYPOCHLORITE 1/40% 1L IRRIG IRR SCH ×2 (08:55→22:00)
[2016-08-27] MEDS: SODIUM HYPOCHLORITE 0.125% 473 ML BTL IRR SCH ×3 (08:55→22:00)
[2016-08-27] MEDS: ENOXAPARIN 40 MG/0.4 ML SYG SC SCH (09:15)
[2016-08-27] MEDS: ZINC SULFATE 220 MG CAP GTB SCH (10:39)
--- NOTE | 2016-08-27 11:17 | PN ---
Date/Time of Note Date/Time of Note DATE: 08/27/16 TIME: 11:01 Assessment/Plan VTE Prophylaxis VTE Prophylaxis Intervention: LMWH Lines/Catheters IV [facility]from [facility]ACATH Urinary Cath still in place: Yes Reason Cath still needed: urinary retention Assessment/Plan Chief Complaint/Hosp Course ASSESSMENT AND PLAN: 46-year-old male sent in with fever and diaphoresis with findings of sepsis with hypotension, tachycardia. 1) Sepsis; HCAP likely + decub ulcer infx's; stable, but failing to respond/ resolved. sp bronch/atb's. No fevers in last 24 hrs. - off abx today, f/u ID and palliative care. 2) Recurrent sepsis: wbc/temp/hypotension; Oliveira changed. Influenza negative. Urine sent again. Line infection? - again, f/u ID rec's, off ABx today (holiday) 3) Decubitus wound/ MDR organisms. Diverting colostomy & debridement may not be feasible while on vent. quality of life will not improve post therapy. 4) Quadraplegia; poor prognosis; palliative care eval appreciated - need to discuss goals of care. 5) Ho C2 fracture 6) VDRF; cont vent 7) Ho c diff - monitor 8) Chr CHF/ systolic? 9) Past tobacco - monitor 10) Malnutrition; cont peg/feeds/free water. 11) Elevated Ca; Calcium dced. Still high! - consider low dose pamidronate IV low dose x 1. - if not improves, cosnider endo consult? Problems: Subjective 24 Hr Interval Summary Free Text/Dictation No fevers overnight. No bleeding noted. Exam/Review of Systems Vital Signs Vitals Vital Signs Date Time Temp Pulse Resp B/P Pulse Ox O2 Delivery O2 Flow Rate FiO2 08/27/16 08:37 98.1 133 20 94/54 95 08/27/16 05:42 50 08/27/16 04:00 Mechanical Ventilator Intake and Output 08/26/16 08/26/16 08/27/16 15:00 23:00 07:00 Intake Total 100 ml 1350 ml 1080 ml Output Total 2500 ml 1350 ml Balance 100 ml -1150 ml -270 ml Exam Gen: lying in bed, lethargic HEENT: PERRL/EOMI Neck: Trach c/d/i. no pallor. Positive thrush CV: Reg RR Res: Dimin bs bilat; port - no drainage GI: Bs + nt nd, no r/r/g. PEG c/d/i Ext- hypotonia. edema. Wound dressed. Results Result Diagram: 08/27/1626 08/27/16 0625 Results 24 hrs Laboratory Tests Test 08/26/16 11:58 08/26/16 17:18 08/27/16 00:43 08/27/16 06:25 Bedside Glucose 125 131 121 115 Sodium Level 136 Potassium Level 4.2 Chloride Level 103 Carbon Dioxide Level 28 Anion Gap 9 Blood Urea Nitrogen 46 H Creatinine 0.56 L Glucose Level 113 Calcium Level 12.0 H Test 08/27/16 06:26 White Blood Count 21.2 H Red Blood Count 2.84 L Hemoglobin 7.5 L Hematocrit 25.6 L Mean Corpuscular Volume 90.1 Mean Corpuscular Hemoglobin 26.4 L Mean Corpuscular Hemoglobin Concent 29.3 L Red Cell Distribution Width 17.5 H Platelet Count 395 Mean Platelet Volume 10.4 Neutrophils % 84.6 H Lymphocytes % 3.0 L Monocytes % 4.3 Eosinophils % 2.4 Basophils % 0.2 Nucleated Red Blood Cells % 0.0 Neutrophils # 17.9 H Lymphocytes # 0.6 L Monocytes # 0.9 Eosinophils # 0.5 Basophils # 0.0 Nucleated Red Blood Cells # 0.0 Medications Medications Current Medications Ondansetron HCl (Zofran Inj) 4 mg Q6H PRN IV NAUSEA AND/OR VOMITING Last administered on 08/15/16 05:11; Admin Dose 4 MG; Start 07/31/16 at 15:00 Morphine Sulfate (morphine) 2 mg Q4H PRN IV SEVERE PAIN LEVEL 7-10 Last administered on 08/20/16 00:32; Admin Dose 2 MG; Start 07/31/16 at 15:00 Magnesium Hydroxide (Milk Of Mag) 30 ml DAILY PRN PO CONSTIPATION; Start at 15:00 Sodium Biphosphate/ Sodium Phosphate (Fleet Enema) 133 ml DAILY PRN [place] CONSTIPATION; Start 07/31/16 at 15:00 Hydralazine HCl (Apresoline) 10 mg Q6H PRN IV ELEVATED BLOOD PRESSURE; Start at 15:00 Nitroglycerin (Nitroglycerin (Sl Tab) 0.4 Mg) 1 tab Q5M PRN SL ANGINA; Start at 15:00 Miscellaneous Information 1 ea NOTE XX ; Start 07/31/16 at 16:30 Glucose (Glutose) 15 gm Q15M PRN PO DECREASED GLUCOSE; Start 07/31/16 at 16:30 Glucose (Glutose) 22.5 gm Q15M PRN PO DECREASED GLUCOSE; Start 07/31/16 at 16: 30 Dextrose (D50w Syringe) 25 ml Q15M PRN IV DECREASED GLUCOSE; Start 07/31/16 at 16:30 Dextrose (D50w Syringe) 50 ml Q15M PRN IV DECREASED GLUCOSE; Start 07/31/16 at 16:30 Glucagon (Glucagen) 1 mg Q15M PRN IM DECREASED GLUCOSE; Start 07/31/16 at 16:30 Glucose (Glutose) 15 gm Q15M PRN BUCCAL DECREASED GLUCOSE; Start 07/31/16 at 16 :30 Sodium Hypochlorite (Dakin'S (1/4 Strength)) 1 applic BID IRR Last administered on 08/26/16 21:46; Admin Dose 1 APPLIC; Start 08/01/16 at 21:00 Acetaminophen/ Hydrocodone Bitart ([place] (5/325)) 1 tab Q4H PRN PEG MODERATE PAIN LEVEL 4-6 Last administered on 08/26/16 22:23; Admin Dose 1 TAB; Start 08/02/16 at 00:00 Lorazepam (Ativan) 0.5 mg Q4H PRN IV ANXIETY Last administered on 08/26/16 18: 05; Admin Dose 0.5 MG; Start 08/02/16 at 00:00 Zolpidem Tartrate (Ambien) 10 mg HS PRN PEG INSOMNIA Last administered on 22:53; Admin Dose 10 MG; Start 08/02/16 at 03:30 Ibuprofen (Motrin) 600 mg Q6H PRN PO PAIN OR TEMP ABOVE 38C Last administered on 08/11/16 21:29; Admin Dose 600 MG; Start 08/02/16 at 15:00 Zinc Sulfate (Zinc Sulfate) 220 mg DAILY GTB Last administered on 08/27/16 10: 39; Admin Dose 220 MG; Start 08/03/16 at 11:30 Multivitamins Therapeutic (Theragran) 1 tab DAILY PO Last administered on 08:54; Admin Dose 1 TAB; Start 08/03/16 at 11:30 Ascorbic Acid (Vitamin C) 500 mg BID GTB Last administered on 08/27/16 08:54; Admin Dose 500 MG; Start 08/03/16 at 11:30 Sodium Hypochlorite (Dakin'S (Dilute 1/40%)) 1 applic BID IRR Last administered on 08/26/16 21:42; Admin Dose 1 APPLIC; Start 08/04/16 at 12:00 Levothyroxine Sodium (Synthroid) 25 mcg DAILY@06 PO Last administered on 05:33; Admin Dose 25 MCG; Start 08/11/16 at 06:00 Paroxetine HCl (Paxil) 10 mg DAILY PO Last administered on 08/27/16 08:54; Admin Dose 10 MG; Start 08/11/16 at 21:00 Insulin Aspart (Novolog Insulin Pen) NOVOLOG *MODERATE* ALGORI... Q6 SC Last administered on 08/25/16 05:14; Admin Dose 2 UNIT; Start 08/13/16 at 00:00 Lactobacillus Acidoph/Bulgaricus (Floranex) 1 tab TID GTB Last administered on 08/27/16 08:54; Admin Dose 1 TAB; Start 08/15/16 at 21:30 Metformin HCl (Glucophage) 500 mg Q12 GTB Last administered on 08/27/16 08:54 ; Admin Dose 500 MG; Start 08/15/16 at 21:30 Acetaminophen (Tylenol Tab) 650 mg Q6H PRN GTB PAIN AND OR ELEVATED TEMP Last administered on 08/27/16 05:33; Admin Dose 650 MG; Start 08/15/16 at 21:30 Magnesium Oxide (Mag-Ox 400) 400 mg DAILY GTB Last administered on 08/27/16 08 :54; Admin Dose 400 MG; Start 08/20/16 at 09:00 Enoxaparin Sodium (Lovenox) 40 mg DAILY SC Last administered on 08/27/16 09:15 ; Admin Dose 40 MG; Start 08/22/16 at 09:00 Famotidine (Pepcid) 20 mg DAILY GTB Last administered on 08/27/16 08:54; Admin Dose 20 MG; Start 08/22/16 at 09:00 Potassium Chloride (Potassium Chloride Pwd/Soln) 40 meq BID GTB Last administered on 08/26/16 21:41; Admin Dose 40 MEQ; Start 08/23/16 at 21:00 Hydromorphone HCl (Dilaudid) 1 mg Q6H PRN IV PAIN Last administered on 18:58; Admin Dose 1 MG; Start 08/24/16 at 18:00 Nystatin (Nystatin Susp) 5 ml QID PO Last administered on 08/27/16 08:54; Admin Dose 5 ML; Start 08/25/16 at 17:00 DARON FARRELL Aug 27, 2016 11:17
[2016-08-27] MEDS ORDERED: VITAMIN A & D 5 GM OINT PACKET TOP ONE (12:28)
[2016-08-27] MEDS ORDERED: PAMIDRONATE 30 MG in SOD CHLORIDE 0.9% 500 ML IV SCH (12:30)
[2016-08-27] MEDS: POTASSIUM CHLORIDE 20 MEQ POWDER FOR ORAL SOLN GTB SCH ×2 (12:34→21:58)
--- NOTE | 2016-08-27 12:46 | CONS ---
Date/Time of Note Date/Time of Note DATE: 08/27/16 TIME: 12:45 Assessment/Plan Assessment/Plan Chief Complaint/Hosp Course SUBJECTIVE: No acute changes, afebrile, nad MICROBIOLOGY: Repeat blood and urine cultures negative. INDWELLINGS: The patient has trach, PEG, Oliveira, left chest Port-A-Cath. ANTIMICROBIALS: 1. Colistin. 2. Flagyl. 3. Zyvox. 4. Diflucan PHYSICAL EXAMINATION: GENERAL: This is a fragile, chronically ill-appearing, middle-aged man who is awake, in no distress. HEENT: Head atraumatic, normocephalic. Sclerae anicteric. Buccal mucosa dry. The patient has white thrush on his tongue. NECK: Supple. Tracheostomy present. CHEST: Rise symmetrical. Breath sounds clear, diminished at the bases. HEART: S1, S2. ABDOMEN: Soft, bowel sounds present. EXTREMITIES: Bilateral extremities edema. ASSESSMENT: 1. Persistent fevers ==> ?infected line 2. Resolving pneumonia==> s/p bronchoscopy 08/23. 3. Right chest Port-A-Cath. 4. Chronic respiratory failure. 5. Quadriplegia. 6. History of Clostridium difficile colitis. 7. Status post urinary tract infection. 8. Multiple wounds PLAN: Clinically unchanged, no fevers for 24 hrs all cx's negative, will dc abx and observe. If starts spiking fevers will reculture ==> send bld cx form merged with [facility]. staff Problems: Consultation Date/Type/Reason Admit Date/Time Jul 31, 2016 at 14:20 Initial Consult Date 08/02/16 Type of Consultation: ID Exam/Review of Systems Vital Signs Vitals Vital Signs Date Time Temp Pulse Resp B/P Pulse Ox O2 Delivery O2 Flow Rate FiO2 08/27/16 12:08 98.5 129 20 84/47 88 08/27/16 05:42 50 08/27/16 04:00 Mechanical Ventilator Intake and Output 08/26/16 08/26/16 08/27/16 15:00 23:00 07:00 Intake Total 100 ml 1350 ml 1080 ml Output Total 2500 ml 1350 ml Balance 100 ml -1150 ml -270 ml Results Result Diagram: 08/27/16 0626 08/27/16 0625 Results 24 hrs Laboratory Tests Test 08/26/16 17:18 08/27/16 00:43 08/27/16 06:25 08/27/16 06:26 Bedside Glucose 131 121 115 Sodium Level 136 Potassium Level 4.2 Chloride Level 103 Carbon Dioxide Level 28 Anion Gap 9 Blood Urea Nitrogen 46 H Creatinine 0.56 L Glucose Level 113 Calcium Level 12.0 H White Blood Count 21.2 H Red Blood Count 2.84 L Hemoglobin 7.5 L Hematocrit 25.6 L Mean Corpuscular Volume 90.1 Mean Corpuscular Hemoglobin 26.4 L Mean Corpuscular Hemoglobin Concent 29.3 L Red Cell Distribution Width 17.5 H Platelet Count 395 Mean Platelet Volume 10.4 Neutrophils % 84.6 H Lymphocytes % 3.0 L Monocytes % 4.3 Eosinophils % 2.4 Basophils % 0.2 Nucleated Red Blood Cells % 0.0 Neutrophils # 17.9 H Lymphocytes # 0.6 L Monocytes # 0.9 Eosinophils # 0.5 Basophils # 0.0 Nucleated Red Blood Cells # 0.0 Medications Medications Current Medications Ondansetron HCl (Zofran Inj) 4 mg Q6H PRN IV NAUSEA AND/OR VOMITING Last administered on 08/15/16 05:11; Admin Dose 4 MG; Start 07/31/16 at 15:00 Morphine Sulfate (morphine) 2 mg Q4H PRN IV SEVERE PAIN LEVEL 7-10 Last administered on 08/20/16 00:32; Admin Dose 2 MG; Start 07/31/16 at 15:00 Magnesium Hydroxide (Milk Of Mag) 30 ml DAILY PRN PO CONSTIPATION; Start at 15:00 Sodium Biphosphate/ Sodium Phosphate (Fleet Enema) 133 ml DAILY PRN [place] CONSTIPATION; Start 07/31/16 at 15:00 Hydralazine HCl (Apresoline) 10 mg Q6H PRN IV ELEVATED BLOOD PRESSURE; Start at 15:00 Nitroglycerin (Nitroglycerin (Sl Tab) 0.4 Mg) 1 tab Q5M PRN SL ANGINA; Start at 15:00 Miscellaneous Information 1 ea NOTE XX ; Start 07/31/16 at 16:30 Glucose (Glutose) 15 gm Q15M PRN PO DECREASED GLUCOSE; Start 07/31/16 at 16:30 Glucose (Glutose) 22.5 gm Q15M PRN PO DECREASED GLUCOSE; Start 07/31/16 at 16: 30 Dextrose (D50w Syringe) 25 ml Q15M PRN IV DECREASED GLUCOSE; Start 07/31/16 at 16:30 Dextrose (D50w Syringe) 50 ml Q15M PRN IV DECREASED GLUCOSE; Start 07/31/16 at 16:30 Glucagon (Glucagen) 1 mg Q15M PRN IM DECREASED GLUCOSE; Start 07/31/16 at 16:30 Glucose (Glutose) 15 gm Q15M PRN BUCCAL DECREASED GLUCOSE; Start 07/31/16 at 16 :30 Sodium Hypochlorite (Dakin'S (1/4 Strength)) 1 applic BID IRR Last administered on 08/26/16 21:46; Admin Dose 1 APPLIC; Start 08/01/16 at 21:00 Acetaminophen/ Hydrocodone Bitart ([place] (5/325)) 1 tab Q4H PRN PEG MODERATE PAIN LEVEL 4-6 Last administered on 08/26/16 22:23; Admin Dose 1 TAB; Start 08/02/16 at 00:00 Lorazepam (Ativan) 0.5 mg Q4H PRN IV ANXIETY Last administered on 08/26/16 18: 05; Admin Dose 0.5 MG; Start 08/02/16 at 00:00 Zolpidem Tartrate (Ambien) 10 mg HS PRN PEG INSOMNIA Last administered on 22:53; Admin Dose 10 MG; Start 08/02/16 at 03:30 Ibuprofen (Motrin) 600 mg Q6H PRN PO PAIN OR TEMP ABOVE 38C Last administered on 08/11/16 21:29; Admin Dose 600 MG; Start 08/02/16 at 15:00 Zinc Sulfate (Zinc Sulfate) 220 mg DAILY GTB Last administered on 08/27/16 10: 39; Admin Dose 220 MG; Start 08/03/16 at 11:30 Multivitamins Therapeutic (Theragran) 1 tab DAILY PO Last administered on 08:54; Admin Dose 1 TAB; Start 08/03/16 at 11:30 Ascorbic Acid (Vitamin C) 500 mg BID GTB Last administered on 08/27/16 08:54; Admin Dose 500 MG; Start 08/03/16 at 11:30 Sodium Hypochlorite (Dakin'S (Dilute 1/40%)) 1 applic BID IRR Last administered on 08/26/16 21:42; Admin Dose 1 APPLIC; Start 08/04/16 at 12:00 Levothyroxine Sodium (Synthroid) 25 mcg DAILY@06 PO Last administered on 05:33; Admin Dose 25 MCG; Start 08/11/16 at 06:00 Paroxetine HCl (Paxil) 10 mg DAILY PO Last administered on 08/27/16 08:54; Admin Dose 10 MG; Start 08/11/16 at 21:00 Insulin Aspart (Novolog Insulin Pen) NOVOLOG *MODERATE* ALGORI... Q6 SC Last administered on 08/25/16 05:14; Admin Dose 2 UNIT; Start 08/13/16 at 00:00 Lactobacillus Acidoph/Bulgaricus (Floranex) 1 tab TID GTB Last administered on 08/27/16 12:34; Admin Dose 1 TAB; Start 08/15/16 at 21:30 Metformin HCl (Glucophage) 500 mg Q12 GTB Last administered on 08/27/16 08:54 ; Admin Dose 500 MG; Start 08/15/16 at 21:30; Status Future Hold Acetaminophen (Tylenol Tab) 650 mg Q6H PRN GTB PAIN AND OR ELEVATED TEMP Last administered on 08/27/16 05:33; Admin Dose 650 MG; Start 08/15/16 at 21:30 Magnesium Oxide (Mag-Ox 400) 400 mg DAILY GTB Last administered on 08/27/16 08 :54; Admin Dose 400 MG; Start 08/20/16 at 09:00 Enoxaparin Sodium (Lovenox) 40 mg DAILY SC Last administered on 08/27/16 09:15 ; Admin Dose 40 MG; Start 08/22/16 at 09:00 Famotidine (Pepcid) 20 mg DAILY GTB Last administered on 08/27/16 08:54; Admin Dose 20 MG; Start 08/22/16 at 09:00 Potassium Chloride (Potassium Chloride Pwd/Soln) 40 meq BID GTB Last administered on 08/27/16 12:34; Admin Dose 40 MEQ; Start 08/23/16 at 21:00 Hydromorphone HCl (Dilaudid) 1 mg Q6H PRN IV PAIN Last administered on 18:58; Admin Dose 1 MG; Start 08/24/16 at 18:00 Nystatin 5 ml 5 ml QID PO Last administered on 08/27/16 12:35; Admin Dose 5 ML ; Start 08/25/16 at 17:00 Pamidronate Disodium/Sodium Chloride (Aredia/NS) 510 ml @ 83.333 mls/ hr Q6H8M IV Last administered on 08/27/16 12:34; Admin Dose 83.333 MLS/HR; Start at 12:30; Stop 08/27/16 at 18:37 LESLIE FERRARO NP Aug 27, 2016 12:46
[2016-08-27] MEDS ORDERED: SOD CHLORIDE 0.9% 250 ML IV ONE (14:00)
--- NOTE | 2016-08-27 15:19 | CONS ---
Date/Time of Note Date/Time of Note DATE: 08/27/16 TIME: 15:13 Assessment/Plan Assessment/Plan Additional Assessment/Plan Sepsis Acute decompensated systolic congestive heart failure Sinus tachycardia C2 fracture and quadriplegic Respiratory failure Cardiomyopathy with ejection fraction 50% via echo on previous admission Decubiti Hypotension -Patient with worsening blood pressure with increase hypotension. Would order fluid bolus, if does not respond, might need to consider initiation of IV pressor. Discussed with primary team, would recommend palliative care follow- up as well to discuss goals of therapy. Continue to hold diuretics and antihypertensives at the current time. Consultation Date/Type/Reason Admit Date/Time Jul 31, 2016 at 14:20 Type of Consultation: cv 24 HR Interval Summary Free Text/Dictation Patient with increased fatigue, denies chest pain Exam/Review of Systems Vital Signs Vitals Vital Signs Date Time Temp Pulse Resp B/P Pulse Ox O2 Delivery O2 Flow Rate FiO2 08/27/16 15:00 121 24 100 50 08/27/16 14:49 86/46 08/27/16 12:08 98.5 08/27/16 04:00 Mechanical Ventilator Intake and Output 08/26/16 08/26/16 08/27/16 14:59 22:59 06:59 Intake Total 100 ml 1250 ml 1180 ml Output Total 2500 ml 1350 ml Balance 100 ml -1250 ml -170 ml Exam Fatigue, answering some questions but falling asleep Neck: other (Tracheostomy) Respiratory: other (Coarse breath sounds bilaterally, scattered crackles, no wheezing) Cardiovascular: other (S1-S2 heard), regular rate and rhythm Gastrointestinal: bowel sounds, non-tender, other (No guarding), soft Extremities: edema, other (No cyanosis) Results Result Diagram: 08/27/16 0626 08/27/16 0625 Results 24 hrs Laboratory Tests Test 08/26/16 17:18 08/27/16 00:43 08/27/16 06:25 08/27/16 06:26 Bedside Glucose 131 121 115 Sodium Level 136 Potassium Level 4.2 Chloride Level 103 Carbon Dioxide Level 28 Anion Gap 9 Blood Urea Nitrogen 46 H Creatinine 0.56 L Glucose Level 113 Calcium Level 12.0 H White Blood Count 21.2 H Red Blood Count 2.84 L Hemoglobin 7.5 L Hematocrit 25.6 L Mean Corpuscular Volume 90.1 Mean Corpuscular Hemoglobin 26.4 L Mean Corpuscular Hemoglobin Concent 29.3 L Red Cell Distribution Width 17.5 H Platelet Count 395 Mean Platelet Volume 10.4 Neutrophils % 84.6 H Lymphocytes % 3.0 L Monocytes % 4.3 Eosinophils % 2.4 Basophils % 0.2 Nucleated Red Blood Cells % 0.0 Neutrophils # 17.9 H Lymphocytes # 0.6 L Monocytes # 0.9 Eosinophils # 0.5 Basophils # 0.0 Nucleated Red Blood Cells # 0.0 Test 08/27/16 12:33 Bedside Glucose 132 Medications Medications Current Medications Ondansetron HCl (Zofran Inj) 4 mg Q6H PRN IV NAUSEA AND/OR VOMITING Last administered on 08/15/16 05:11; Admin Dose 4 MG; Start 07/31/16 at 15:00 Morphine Sulfate (morphine) 2 mg Q4H PRN IV SEVERE PAIN LEVEL 7-10 Last administered on 08/20/16 00:32; Admin Dose 2 MG; Start 07/31/16 at 15:00 Magnesium Hydroxide (Milk Of Mag) 30 ml DAILY PRN PO CONSTIPATION; Start at 15:00 Sodium Biphosphate/ Sodium Phosphate (Fleet Enema) [address] [place] CONSTIPATION; Start 07/31/16 at 15:00 Hydralazine HCl (Apresoline) 10 mg Q6H PRN IV ELEVATED BLOOD PRESSURE; Start at 15:00 Nitroglycerin (Nitroglycerin (Sl Tab) 0.4 Mg) 1 tab Q5M PRN SL ANGINA; Start at 15:00 Miscellaneous Information 1 ea NOTE XX ; Start 07/31/16 at 16:30 Glucose (Glutose) 15 gm Q15M PRN PO DECREASED GLUCOSE; Start 07/31/16 at 16:30 Glucose (Glutose) 22.5 gm Q15M PRN PO DECREASED GLUCOSE; Start 07/31/16 at 16: 30 Dextrose (D50w Syringe) 25 ml Q15M PRN IV DECREASED GLUCOSE; Start 07/31/16 at 16:30 Dextrose (D50w Syringe) 50 ml Q15M PRN IV DECREASED GLUCOSE; Start 07/31/16 at 16:30 Glucagon (Glucagen) 1 mg Q15M PRN IM DECREASED GLUCOSE; Start 07/31/16 at 16:30 Glucose (Glutose) 15 gm Q15M PRN BUCCAL DECREASED GLUCOSE; Start 07/31/16 at 16 :30 Sodium Hypochlorite (Dakin'S (1/4 Strength)) 1 applic BID IRR Last administered on 08/26/16 21:46; Admin Dose 1 APPLIC; Start 08/01/16 at 21:00 Acetaminophen/ Hydrocodone Bitart ([place] (5/325)) 1 tab Q4H PRN PEG MODERATE PAIN LEVEL 4-6 Last administered on 08/26/16 22:23; Admin Dose 1 TAB; Start 08/02/16 at 00:00 Lorazepam (Ativan) 0.5 mg Q4H PRN IV ANXIETY Last administered on 08/26/16 18: 05; Admin Dose 0.5 MG; Start 08/02/16 at 00:00 Zolpidem Tartrate (Ambien) 10 mg HS PRN PEG INSOMNIA Last administered on 22:53; Admin Dose 10 MG; Start 08/02/16 at 03:30 Ibuprofen (Motrin) 600 mg Q6H PRN PO PAIN OR TEMP ABOVE 38C Last administered on 08/11/16 21:29; Admin Dose 600 MG; Start 08/02/16 at 15:00 Zinc Sulfate (Zinc Sulfate) 220 mg DAILY GTB Last administered on 08/27/16 10: 39; Admin Dose 220 MG; Start 08/03/16 at 11:30 Multivitamins Therapeutic (Theragran) 1 tab DAILY PO Last administered on 08:54; Admin Dose 1 TAB; Start 08/03/16 at 11:30 Ascorbic Acid (Vitamin C) 500 mg BID GTB Last administered on 08/27/16 08:54; Admin Dose 500 MG; Start 08/03/16 at 11:30 Sodium Hypochlorite (Dakin'S (Dilute 1/40%)) 1 applic BID IRR Last administered on 08/26/16 21:42; Admin Dose 1 APPLIC; Start 08/04/16 at 12:00 Levothyroxine Sodium (Synthroid) 25 mcg DAILY@06 PO Last administered on 05:33; Admin Dose 25 MCG; Start 08/11/16 at 06:00 Paroxetine HCl (Paxil) 10 mg DAILY PO Last administered on 08/27/16 08:54; Admin Dose 10 MG; Start 08/11/16 at 21:00 Insulin Aspart (Novolog Insulin Pen) NOVOLOG *MODERATE* ALGORI... Q6 SC Last administered on 08/25/16 05:14; Admin Dose 2 UNIT; Start 08/13/16 at 00:00 Lactobacillus Acidoph/Bulgaricus (Floranex) 1 tab TID GTB Last administered on 08/27/16 12:34; Admin Dose 1 TAB; Start 08/15/16 at 21:30 Metformin HCl (Glucophage) 500 mg Q12 GTB Last administered on 08/27/16 08:54 ; Admin Dose 500 MG; Start 08/15/16 at 21:30; Status Future Hold Acetaminophen (Tylenol Tab) 650 mg Q6H PRN GTB PAIN AND OR ELEVATED TEMP Last administered on 08/27/16 05:33; Admin Dose 650 MG; Start 08/15/16 at 21:30 Magnesium Oxide (Mag-Ox 400) 400 mg DAILY GTB Last administered on 08/27/16 08 :54; Admin Dose 400 MG; Start 08/20/16 at 09:00 Enoxaparin Sodium (Lovenox) 40 mg DAILY SC Last administered on 08/27/16 09:15 ; Admin Dose 40 MG; Start 08/22/16 at 09:00 Famotidine (Pepcid) 20 mg DAILY GTB Last administered on 08/27/16 08:54; Admin Dose 20 MG; Start 08/22/16 at 09:00 Potassium Chloride (Potassium Chloride Pwd/Soln) 40 meq BID GTB Last administered on 08/27/16 12:34; Admin Dose 40 MEQ; Start 08/23/16 at 21:00 Hydromorphone HCl (Dilaudid) 1 mg Q6H PRN IV PAIN Last administered on 18:58; Admin Dose 1 MG; Start 08/24/16 at 18:00 Nystatin 5 ml 5 ml QID PO Last administered on 08/27/16 12:35; Admin Dose 5 ML ; Start 08/25/16 at 17:00 Pamidronate Disodium/Sodium Chloride (Aredia/NS) 510 ml @ 83.333 mls/ hr Q6H8M IV Last administered on 3/27/17at 12:34; Admin Dose 83.333 MLS/HR; Start at 12:30; Stop 08/27/16 at 18:37 Kb Barrett DO Aug 27, 2016 15:19
[2016-08-27] MEDS ORDERED: SOD CHLORIDE 0.9% 500 ML IV ONE (15:30)
--- NOTE | 2016-08-27 16:44 | CONS ---
Date/Time of Note Date/Time of Note DATE: 08/27/16 TIME: 16:43 Consult Date/Type/Reason Admit Date/Time Jul 31, 2016 at 14:20 Initial Consult Date 08/02/16 Type of Consultation: pulmonary Subjective Continues mechanical ventilation is diaphoretic this morning Neurologically unchanged Objective Vital Signs Date Time Temp Pulse Resp B/P Pulse Ox O2 Delivery O2 Flow Rate FiO2 08/27/16 16:39 120 08/27/16 16:33 18 88/50 08/27/16 15:45 98.1 95 08/27/16 15:00 50 08/27/16 04:00 Mechanical Ventilator Intake and Output 08/26/16 08/26/16 08/27/16 15:00 23:00 07:00 Intake Total 100 ml 1350 ml 1080 ml Output Total 2500 ml 1350 ml Balance 100 ml -1150 ml -270 ml Exam PHYSICAL EXAMINATION GENERAL: Chronically ill-appearing gentleman appears comfortable at rest no acute distress VITAL SIGNS: see below. HEENT: Pupils equal, round, and reactive to light. Tracheostomy site clean and intact. CARDIAC: S1, S2, tachycardia. CHEST: Diminished air entry bilaterally. ABDOMEN: Mildly distended. No bowel sounds. EXTREMITIES: No cyanosis, clubbing edema +1 NEUROLOGIC: Generalized weakness Results/Medications Result Diagram: 08/27/16 0626 08/27/16 0625 Results 24 hrs Laboratory Tests Test 08/26/16 17:18 08/27/16 00:43 08/27/16 06:25 08/27/16 06:26 Bedside Glucose 131 121 115 Sodium Level 136 Potassium Level 4.2 Chloride Level 103 Carbon Dioxide Level 28 Anion Gap 9 Blood Urea Nitrogen 46 H Creatinine 0.56 L Glucose Level 113 Calcium Level 12.0 H White Blood Count 21.2 H Red Blood Count 2.84 L Hemoglobin 7.5 L Hematocrit 25.6 L Mean Corpuscular Volume 90.1 Mean Corpuscular Hemoglobin 26.4 L Mean Corpuscular Hemoglobin Concent 29.3 L Red Cell Distribution Width 17.5 H Platelet Count 395 Mean Platelet Volume 10.4 Neutrophils % 84.6 H Lymphocytes % 3.0 L Monocytes % 4.3 Eosinophils % 2.4 Basophils % 0.2 Nucleated Red Blood Cells % 0.0 Neutrophils # 17.9 H Lymphocytes # 0.6 L Monocytes # 0.9 Eosinophils # 0.5 Basophils # 0.0 Nucleated Red Blood Cells # 0.0 Test 08/27/16 12:33 Bedside Glucose 132 Medications Current Medications Ondansetron HCl (Zofran Inj) 4 mg Q6H PRN IV NAUSEA AND/OR VOMITING Last administered on 08/15/16 05:11; Admin Dose 4 MG; Start 07/31/16 at 15:00 Morphine Sulfate (morphine) 2 mg Q4H PRN IV SEVERE PAIN LEVEL 7-10 Last administered on 08/20/16 00:32; Admin Dose 2 MG; Start 07/31/16 at 15:00 Magnesium Hydroxide (Milk Of Mag) 30 ml DAILY PRN PO CONSTIPATION; Start at 15:00 Sodium Biphosphate/ Sodium Phosphate (Fleet Enema) 133 ml DAILY PRN [place] CONSTIPATION; Start 07/31/16 at 15:00 Hydralazine HCl (Apresoline) 10 mg Q6H PRN IV ELEVATED BLOOD PRESSURE; Start at 15:00 Nitroglycerin (Nitroglycerin (Sl Tab) 0.4 Mg) 1 tab Q5M PRN SL ANGINA; Start at 15:00 Miscellaneous Information 1 ea NOTE XX ; Start 07/31/16 at 16:30 Glucose (Glutose) 15 gm Q15M PRN PO DECREASED GLUCOSE; Start 07/31/16 at 16:30 Glucose (Glutose) 22.5 gm Q15M PRN PO DECREASED GLUCOSE; Start 07/31/16 at 16: 30 Dextrose (D50w Syringe) 25 ml Q15M PRN IV DECREASED GLUCOSE; Start 07/31/16 at 16:30 Dextrose (D50w Syringe) 50 ml Q15M PRN IV DECREASED GLUCOSE; Start 07/31/16 at 16:30 Glucagon (Glucagen) 1 mg Q15M PRN IM DECREASED GLUCOSE; Start 07/31/16 at 16:30 Glucose (Glutose) 15 gm Q15M PRN BUCCAL DECREASED GLUCOSE; Start 07/31/16 at 16 :30 Sodium Hypochlorite (Dakin'S (1/4 Strength)) 1 applic BID IRR Last administered on 08/26/16 21:46; Admin Dose 1 APPLIC; Start 08/01/16 at 21:00 Acetaminophen/ Hydrocodone Bitart ([place] (5/325)) 1 tab Q4H PRN PEG MODERATE PAIN LEVEL 4-6 Last administered on 08/26/16 22:23; Admin Dose 1 TAB; Start 08/02/16 at 00:00 Lorazepam (Ativan) 0.5 mg Q4H PRN IV ANXIETY Last administered on 08/26/16 18: 05; Admin Dose 0.5 MG; Start 08/02/16 at 00:00 Zolpidem Tartrate (Ambien) 10 mg HS PRN PEG INSOMNIA Last administered on 22:53; Admin Dose 10 MG; Start 08/02/16 at 03:30 Ibuprofen (Motrin) 600 mg Q6H PRN PO PAIN OR TEMP ABOVE 38C Last administered on 08/11/16 21:29; Admin Dose 600 MG; Start 08/02/16 at 15:00 Zinc Sulfate (Zinc Sulfate) 220 mg DAILY GTB Last administered on 08/27/16 10: 39; Admin Dose 220 MG; Start 08/03/16 at 11:30 Multivitamins Therapeutic (Theragran) 1 tab DAILY PO Last administered on 08:54; Admin Dose 1 TAB; Start 08/03/16 at 11:30 Ascorbic Acid (Vitamin C) 500 mg BID GTB Last administered on 08/27/16 08:54; Admin Dose 500 MG; Start 08/03/16 at 11:30 Sodium Hypochlorite (Dakin'S (Dilute 1/40%)) 1 applic BID IRR Last administered on 08/26/16 21:42; Admin Dose 1 APPLIC; Start 08/04/16 at 12:00 Levothyroxine Sodium (Synthroid) 25 mcg DAILY@06 PO Last administered on 05:33; Admin Dose 25 MCG; Start 08/11/16 at 06:00 Paroxetine HCl (Paxil) 10 mg DAILY PO Last administered on 08/27/16 08:54; Admin Dose 10 MG; Start 08/11/16 at 21:00 Insulin Aspart (Novolog Insulin Pen) NOVOLOG *MODERATE* ALGORI... Q6 SC Last administered on 08/25/16 05:14; Admin Dose 2 UNIT; Start 08/13/16 at 00:00 Lactobacillus Acidoph/Bulgaricus (Floranex) 1 tab TID GTB Last administered on 08/27/16 12:34; Admin Dose 1 TAB; Start 08/15/16 at 21:30 Metformin HCl (Glucophage) 500 mg Q12 GTB Last administered on 08/27/16 08:54 ; Admin Dose 500 MG; Start 08/15/16 at 21:30; Status Future Hold Acetaminophen (Tylenol Tab) 650 mg Q6H PRN GTB PAIN AND OR ELEVATED TEMP Last administered on 08/27/16 05:33; Admin Dose 650 MG; Start 08/15/16 at 21:30 Magnesium Oxide (Mag-Ox 400) 400 mg DAILY GTB Last administered on 08/27/16 08 :54; Admin Dose 400 MG; Start 08/20/16 at 09:00 Enoxaparin Sodium (Lovenox) 40 mg DAILY SC Last administered on 08/27/16 09:15 ; Admin Dose 40 MG; Start 08/22/16 at 09:00 Famotidine (Pepcid) 20 mg DAILY GTB Last administered on 08/27/16 08:54; Admin Dose 20 MG; Start 08/22/16 at 09:00 Potassium Chloride (Potassium Chloride Pwd/Soln) 40 meq BID GTB Last administered on 08/27/16 12:34; Admin Dose 40 MEQ; Start 08/23/16 at 21:00 Hydromorphone HCl (Dilaudid) 1 mg Q6H PRN IV PAIN Last administered on 18:58; Admin Dose 1 MG; Start 08/24/16 at 18:00 Nystatin 5 ml 5 ml QID PO Last administered on 08/27/16 12:35; Admin Dose 5 ML ; Start 08/25/16 at 17:00 Pamidronate Disodium/Sodium Chloride ([place]/NS) 510 ml @ 83.333 mls/ hr Q6H8M IV Last administered on 08/27/16 12:34; Admin Dose 83.333 MLS/HR; Start at 12:30; Stop 08/27/16 at 18:37 Assessment/Plan Chief Complaint/Hosp Course Assessment 1. Vent dependent respiratory failure 2. Polymicrobial sepsis with persistent leukocytosis 3. Significant anemia likely of chronic disease 4. Dysphagia with G-tube 5. History of quadriplegia Plan 1. Continue mechanical ventilation 2. Continue broad-spectrum antibiotic coverage 3. Continue wound care 4. DVT and GI prophylaxis 5. Tube feeding as tolerated Disposition Continue current level of care Palliative care consult Problems: ABI FLOR [facility], [facility] Aug 27, 2016 16:44
--- NOTE | 2016-08-27 19:26 | PN ---
DATE: 08/27/2016 I was called by Dr. Saul Major today that the patient's blood pressure has become unstable and h e has required boluses of fluids, and his blood pressure still remains low in the range of 80 to 90. Also, Mr. Alfaro looks clinically more ill today. The patient's brother is at the bedside. The fernando ent is a FULL CODE. I have had an extensive conversation with him and with patient's , though p atient and have been for some period of time, it is unknown how long, and therefore I contacted her and asked her if she still wanted to make decisions on his behalf. She gave that dec ision-making authority to his brother. I confirmed that with the patient as I was fairly unclear wh ether or not he understood completely his decision making options. Secondarily, there are children who are next in line to make decisions if patient did not designate his brother, but to make sure th at everybody is in agreement, I have asked the patient's brother to contact the patient's children a nd to schedule a meeting tomorrow. Had an extensive conversation with the patient concerning ongoin g level of care, and through hand gestures to him, he made it very clear by mouthing yes or no that he does want to be transferred to the intensive care unit and if necessary to have cardiopulmonary r esuscitation, then he mouthed just for weeks. I am not sure whether or not he was saying week or we eks, plural. I have given this information also to Dr. Major, will continue to follow. It sounds li ke this family is close, and without the 's involvement, they will need to make painful decision s on his behalf. I will speak to him once again and try and clarify what weeks meant or a week mean t. He is lucid enough to make those decisions for now, but I think he is very tired, so I will defe r that until a later time or unless family members want to make that decision on his behalf. Dictated By: MARYSOL BRADFORD MD, LP/NTS Conf#: [id number] DID#: [id number]
[2016-08-27] MEDS ORDERED: HYDROmorphONE 1 MG/ML SYG IV PRN (21:00)
[2016-08-27] MEDS: SOD CHLORIDE 0.9% 1,000 ML IV SCH (21:59)
[2016-08-28] VITALS (58 sets, daily range): BP systolic 81–137; BP diastolic 47–93; PULSE 112–135; RESP 13–25
[2016-08-28] MEDS ORDERED: SOD CHLORIDE 0.9% 500 ML IV ONE ×2 (00:30→06:30)
[2016-08-28] MEDS ORDERED: MIDODRINE 5 MG TAB PO SCH (00:30)
[2016-08-28] MEDS: ACETAMINOPHEN 325 MG TAB GTB PRN ×2 (00:37→14:46)
[2016-08-28] MEDS ORDERED: SOD CHLORIDE 0.9% 1,000 ML IV ONE (04:30)
[2016-08-28] MEDS: LEVOTHYROXINE 25 MCG TAB PO SCH (05:31)
[2016-08-28] MEDS: INSULIN ASPART [NOVOLOG] 3 ML PEN SC SCH ×4 (05:31→23:35)
[2016-08-28 06:55] LABS: ADD SCAN DIFF NO
[2016-08-28 07:00] LABS: ABNORMAL IP MESSAGE 1; HEMATOCRIT 24.2 % (42.0-52.0); MEAN CORPUSCULAR HEMOGLOBIN 26.4 pg (29.0-33.0); MEAN CORPUSCULAR HGB CONC 28.5 g/dl (32.0-37.0); MEAN CORPUSCULAR VOLUME 92.7 fl (82.0-101.0); MEAN PLATELET VOLUME 10.3 fl (7.4-10.4); PLATELET COUNT 377 10^3/UL (140-415); RED BLOOD COUNT 2.61 10^6/ul (4.70-6.10); RED CELL DISTRIBUTION WIDTH 17.9 % (11.5-14.5); WHITE BLOOD COUNT 28.8 10^3/ul (4.8-10.8)
[2016-08-28] MEDS: ALBUTEROL HFA 8 GM INHALER INH SCH ×2 (07:16→16:00)
[2016-08-28 07:31] LABS: HEMOGLOBIN 6.9 g/dl (14.0-18.0)
[2016-08-28 07:45] LABS: POTASSIUM 4.4 mmol/L (3.5-5.1)
[2016-08-28 07:48] LABS: CREATININE 0.71 mg/dl (0.61-1.24)
[2016-08-28] MEDS: SOD CHLORIDE 0.9% 1,000 ML IV SCH ×3 (08:24→22:06)
[2016-08-28] MEDS: PAROXETINE 10 MG TAB PO SCH (09:00)
[2016-08-28] MEDS: ENOXAPARIN 40 MG/0.4 ML SYG SC SCH (09:00)
[2016-08-28] MEDS ORDERED: NORepinephrine 8MG/250 ML (PMX 250 ML ONE (09:05)
[2016-08-28] MEDS: MAGNESIUM OXIDE 400 MG TAB GTB SCH (09:58)
[2016-08-28] MEDS: ASCORBIC ACID 500 MG TAB GTB SCH ×2 (09:58→22:04)
[2016-08-28] MEDS: MULTIVITAMINS THERAPEUTIC TAB PO SCH (09:58)
[2016-08-28] MEDS: NYSTATIN SUSP 5 ML CUP PO SCH ×4 (09:58→22:04)
[2016-08-28] MEDS: ZINC SULFATE 220 MG CAP GTB SCH (09:58)
[2016-08-28] MEDS: FAMOTIDINE 20 MG TAB GTB SCH (09:58)
[2016-08-28] MEDS: POTASSIUM CHLORIDE 20 MEQ POWDER FOR ORAL SOLN GTB SCH ×2 (09:58→22:05)
[2016-08-28] MEDS: LACTOBACILLUS CHEW TAB GTB SCH ×3 (09:58→22:04)
[2016-08-28] MEDS: MIDODRINE 5 MG TAB PO SCH ×3 (10:29→17:58)
--- NOTE | 2016-08-28 10:36 | CONS ---
Date/Time of Note Date/Time of Note DATE: 08/28/16 TIME: 10:35 Consult Date/Type/Reason Admit Date/Time Jul 31, 2016 at 14:20 Initial Consult Date 08/02/16 Type of Consultation: pulmonary Subjective Patient transfer to intensive care this morning for low blood pressure and hypoxemia Started on vasopressors Objective Vital Signs Date Time Temp Pulse Resp B/P Pulse Ox O2 Delivery O2 Flow Rate FiO2 08/28/16 08:00 120 08/28/16 06:50 24 94 70 08/28/16 04:00 98.1 93/52 08/27/16 04:00 Mechanical Ventilator Intake and Output 08/27/16 08/27/16 08/28/16 15:00 23:00 07:00 Intake Total 350 ml 2260 ml 2380 ml Output Total 750 ml 1400 ml Balance 350 ml 1510 ml 980 ml Exam PHYSICAL EXAMINATION GENERAL: Chronically ill-appearing gentleman appears in moderate distress opens eyes nonverbal VITAL SIGNS: see below. HEENT: Pupils equal, round, and reactive to light. Tracheostomy site clean and intact. CARDIAC: S1, S2, tachycardia. CHEST: Diminished air entry bilaterally. ABDOMEN: Mildly distended. No bowel sounds. EXTREMITIES: No cyanosis, clubbing edema +1 NEUROLOGIC: Generalized weakness Results/Medications Result Diagram: 08/28/16 0549 08/28/16 0549 Results 24 hrs Laboratory Tests Test 08/27/16 12:33 08/27/16 17:07 08/27/16 22:10 08/28/16 05:30 Bedside Glucose 132 142 126 109 Test 08/28/16 05:49 White Blood Count 28.8 #H Red Blood Count 2.61 L Hemoglobin 6.9 *L Hematocrit 24.2 L Mean Corpuscular Volume 92.7 Mean Corpuscular Hemoglobin 26.4 L Mean Corpuscular Hemoglobin Concent 28.5 L Red Cell Distribution Width 17.9 H Platelet Count 377 Mean Platelet Volume 10.3 Neutrophils % Eosinophils % Neutrophils # Eosinophils # Sodium Level 139 Potassium Level 4.4 Chloride Level 107 Carbon Dioxide Level 27 Anion Gap 9 Blood Urea Nitrogen 47 H Creatinine 0.71 Glucose Level 107 Calcium Level 12.0 H Medications Current Medications Ondansetron HCl (Zofran Inj) 4 mg Q6H PRN IV NAUSEA AND/OR VOMITING Last administered on 08/15/16t 05:11; Admin Dose 4 MG; Start 07/31/16 at 15:00 Morphine Sulfate (morphine) 2 mg Q4H PRN IV SEVERE PAIN LEVEL 7-10 Last administered on 08/20/16 00:32; Admin Dose 2 MG; Start 07/31/16 at 15:00 Magnesium Hydroxide (Milk Of Mag) 30 ml DAILY PRN PO CONSTIPATION; Start at 15:00 Sodium Biphosphate/ Sodium Phosphate (Fleet Enema) 133 ml DAILY PRN [place] CONSTIPATION; Start 07/31/16 at 15:00 Hydralazine HCl (Apresoline) 10 mg Q6H PRN IV ELEVATED BLOOD PRESSURE; Start at 15:00 Nitroglycerin (Nitroglycerin (Sl Tab) 0.4 Mg) 1 tab Q5M PRN SL ANGINA; Start at 15:00 Miscellaneous Information 1 ea NOTE XX ; Start 07/31/16 at 16:30 Glucose (Glutose) 15 gm Q15M PRN PO DECREASED GLUCOSE; Start 07/31/16 at 16:30 Glucose (Glutose) 22.5 gm Q15M PRN PO DECREASED GLUCOSE; Start 07/31/16 at 16: 30 Dextrose (D50w Syringe) 25 ml Q15M PRN IV DECREASED GLUCOSE; Start 07/31/16 at 16:30 Dextrose (D50w Syringe) 50 ml Q15M PRN IV DECREASED GLUCOSE; Start 07/31/16 at 16:30 Glucagon (Glucagen) 1 mg Q15M PRN IM DECREASED GLUCOSE; Start 07/31/16 at 16:30 Glucose (Glutose) 15 gm Q15M PRN BUCCAL DECREASED GLUCOSE; Start 07/31/16 at 16 :30 Sodium Hypochlorite (Dakin'S (1/4 Strength)) 1 applic BID IRR Last administered on 08/27/16 22:00; Admin Dose 1 APPLIC; Start 08/01/16 at 21:00 Acetaminophen/ Hydrocodone Bitart ([place] (5/325)) 1 tab Q4H PRN PEG MODERATE PAIN LEVEL 4-6 Last administered on 08/26/16 22:23; Admin Dose 1 TAB; Start 08/02/16 at 00:00 Lorazepam (Ativan) 0.5 mg Q4H PRN IV ANXIETY Last administered on 08/26/16 18: 05; Admin Dose 0.5 MG; Start 08/02/16 at 00:00 Zolpidem Tartrate (Ambien) 10 mg HS PRN PEG INSOMNIA Last administered on 22:53; Admin Dose 10 MG; Start 08/02/16 at 03:30 Ibuprofen (Motrin) 600 mg Q6H PRN PO PAIN OR TEMP ABOVE 38C Last administered on 08/11/16 21:29; Admin Dose 600 MG; Start 08/02/16 at 15:00 Zinc Sulfate (Zinc Sulfate) 220 mg DAILY GTB Last administered on 08/28/16 09: 58; Admin Dose 220 MG; Start 08/03/16 at 11:30 Multivitamins Therapeutic (Theragran) 1 tab DAILY PO Last administered on 09:58; Admin Dose 1 TAB; Start 08/03/16 at 11:30 Ascorbic Acid (Vitamin C) 500 mg BID GTB Last administered on 08/28/16 09:58; Admin Dose 500 MG; Start 08/03/16 at 11:30 Sodium Hypochlorite (Dakin'S (Dilute 1/40%)) 1 applic BID IRR Last administered on 08/27/16 22:00; Admin Dose 1 APPLIC; Start 08/04/16 at 12:00 Levothyroxine Sodium (Synthroid) 25 mcg DAILY@06 PO Last administered on 05:31; Admin Dose 25 MCG; Start 08/11/16 at 06:00 Paroxetine HCl (Paxil) 10 mg DAILY PO Last administered on 08/27/16 08:54; Admin Dose 10 MG; Start 08/11/16 at 21:00 Insulin Aspart (Novolog Insulin Pen) NOVOLOG *MODERATE* ALGORI... Q6 SC Last administered on 08/27/16 17:19; Admin Dose 2 UNIT; Start 08/13/16 at 00:00 Lactobacillus Acidoph/Bulgaricus (Floranex) 1 tab TID GTB Last administered on 08/28/16 09:58; Admin Dose 1 TAB; Start 08/15/16 at 21:30 Metformin HCl (Glucophage) 500 mg Q12 GTB Last administered on 08/27/16 08:54 ; Admin Dose 500 MG; Start 08/15/16 at 21:30; Status Future Hold Acetaminophen (Tylenol Tab) 650 mg Q6H PRN GTB PAIN AND OR ELEVATED TEMP Last administered on 08/28/16 00:37; Admin Dose 650 MG; Start 08/15/16 at 21:30 Magnesium Oxide (Mag-Ox 400) 400 mg DAILY GTB Last administered on 08/28/16 09 :58; Admin Dose 400 MG; Start 08/20/16 at 09:00 Enoxaparin Sodium (Lovenox) 40 mg DAILY SC Last administered on 08/27/16 09:15 ; Admin Dose 40 MG; Start 08/22/16 at 09:00 Famotidine (Pepcid) 20 mg DAILY GTB Last administered on 08/28/16 09:58; Admin Dose 20 MG; Start 08/22/16 at 09:00 Potassium Chloride (Potassium Chloride Pwd/Soln) 40 meq BID GTB Last administered on 08/27/16 21:58; Admin Dose 40 MEQ; Start 08/23/16 at 21:00 Nystatin (Nystatin Susp) 5 ml QID PO Last administered on 08/28/16 09:58; Admin Dose 5 ML; Start 08/25/16 at 17:00 Hydromorphone HCl 1 mg 1 mg Q4H PRN IV PAIN Last administered on 08/27/16 21: 59; Admin Dose 1 MG; Start 08/27/16 at 21:00 Sodium Chloride 1,000 ml @ 75 mls/hr [id number] IV Last administered on 08:24; Admin Dose 125 MLS/HR; Start 08/27/16 at 21:00 Norepinephrine/ Dextrose (Levophed/D5W) 500 ml @ 1.87 mls/hr TITRATE IV ; Start 08/28/16 at 09:00 Midodrine (Proamatine) 10 mg TID@,,17 PO Last administered on 08/28/16 10: 29; Admin Dose 10 MG; Start 08/28/16 at 10:24 Assessment/Plan Chief Complaint/Hosp Course Assessment 1. Vent dependent respiratory failure 2. Polymicrobial sepsis with persistent leukocytosis 3. Significant anemia likely of chronic disease 4. Dysphagia with G-tube 5. History of quadriplegia 6. Septic shock Plan 1. Continue mechanical ventilation 2. Continue broad-spectrum antibiotic coverage 3. Continue wound care 4. DVT and GI prophylaxis 5. Tube feeding as tolerated 6. Vasopressors and transfusion of packed red blood cells Disposition Continue current level of care Palliative care consult Problems: [facility] FL[facility], [facility] Aug [facility], 2016 10:36
[2016-08-28 10:51] LABS: EOSINOPHILS # 1.2 10^3/ul (0.0-0.5); LYMPHOCYTES # 1.2 10^3/ul (0.8-2.9); MONOCYTE # 0.9 10^3/ul (0.3-0.9); NEUTROPHIL # 20.4 10^3/ul (1.6-7.5)
--- NOTE | 2016-08-28 11:45 | RADRPT ---
PROCEDURE: XR Chest 1 View. CLINICAL INDICATION: Shortness of breath, pneumonia TECHNIQUE: AP view of the chest was obtained. COMPARISON: August 22, 2016 FINDINGS: The cardiomediastinal silhouette is within normal limits. Tracheostomy tube is stable and appears in grossly appropriate location. Left-sided chest port is stable. Right upper lobe consolidation is seen. Retrocardiac opacity is stable. Focal infiltrates in the left mid lung are stable. Diffuse interstitial prominence in both lungs is observed. Small right pleural effusion is noted. Pleural t hickening is seen at the right apex. Atelectasis is seen at the right lung base. The osseous struct ures are osteopenic, but appear grossly intact. IMPRESSION: Interval development of right upper lobe consolidation. Interval decrease in right lower lobe infiltrates. Small right pleural effusion with associated bas ilar atelectasis remains. Stable retrocardiac opacity that may reflect left lower lobe atelectasis or infiltrate combined with small pleural effusion. Stable focal infiltrates in the left mid lung. Interval development of pleural thickening at the right apex that may reflect loculated pleural flui d. Stable diffuse interstitial prominence in both lungs. RPTAT: AA .Christian Saravia MD, Date Time Electronically viewed and signed by .Christian Saravia MD, on 08/28/2016 11:45 .P/
[2016-08-28] MEDS ORDERED: VANCOMYCIN IV PER PHARMACY XX SCH (13:00)
--- NOTE | 2016-08-28 13:17 | PN ---
DATE: SUBJECTIVE: Mr. Alfaro has been transferred to the intensive care unit for hypotension. I have spoken to him. He confirms the fact that he still wants his brother to make decisions on his behalf if he cannot do so. He remains a FULL CODE. OBJECTIVE: VITAL SIGNS: Blood 93/52, pulse 120, respirations of 18, 100% saturation on 50% FIO2. CHEST: Bilateral chest findings inspiratory and expiratory wheezing and rhonchi. COR: Regular rate and rhythm. NEUROLOGICAL: He is oriented. He follows. He tracks. He answers by mouthing the words no or yes . LABORATORY DATA: White blood cell count of 28.8, hemoglobin 6.9, hematocrit 24.2, MCV of 92.7, plat elet count 377,000. Chemistries: Serum sodium 139, potassium 4.4, chloride 107, bicarbonate 27, BU N of 47, creatinine 0.71. ASSESSMENT AND PLAN: Sepsis syndrome in the intensive care unit, now critically ill and waiting for a call from family members, especially 2 children, and will update them in so far as his current me dical condition and prognosis. Dictated By: MARYSOL BRADFORD MD LP/NTS Conf#: [id number] DID#: [id number]
--- NOTE | 2016-08-28 13:36 | PN ---
DATE: 08/28/2016 SUBJECTIVE: The patient was transferred to ICU secondary to symptomatic hypotension on low dose Lev ophed. No fevers. VITAL SIGNS: Temperature 98.1, pulse 106, respirations 24, blood pressure 93/52, saturation 92 on 7 0%. LABORATORY DATA: WBC today 28.8, H and H 6.9 and 24.2, platelets 377, neutrophils 71, bands 18, lym phs 4, BUN 47, creatinine 0.71. DIAGNOSTICS: Chest x-ray this morning revealed decreased right lower lobe infiltrates, development of right upper lobe consolidation. ANTIMICROBIALS: The patient is off antibiotics since yesterday. MICROBIOLOGY: Cultures have been negative. INDWELLINGS: Trach, PEG, Oliveira, left subclavian Port-A-Cath. PHYSICAL EXAMINATION: GENERAL: This is a cachectic, chronically ill-appearing, middle-aged man who is in no distress. HEENT: Head atraumatic, normocephalic. Sclerae anicteric. Buccal mucosa dry. NECK: Supple. Tracheostomy present. CHEST: Rise symmetrical. Breath sounds diminished to bases. HEART: S1, S2. ABDOMEN: Obese, soft, bowel tones present. EXTREMITIES: Bilateral edema. ASSESSMENT: 1. Shock, possibly hypovolemic given severe anemia. 2. Left subclavian Port-A-Cath, rule out line sepsis, so far blood cultures have been negative. 3. Status post urinary tract infection. 4. Resolving pneumonia. 5. Multiple chronic wounds status post antibiotics, completed for 3 weeks, no evidence of osteomyel itis per CT of the abdomen and pelvis. 6. Quadriplegia status post C-spine injury. 7. Acute anemia. Rule out GI bleeding. PLAN: The patient remains hemodynamically unstable. He is off antibiotics. Again, antibiotics wer e discontinued yesterday. His urine culture on 08/25/2016 was negative. We are going to repeat blo od cultures from Port-A-Cath today and start him on meropenem and vancomycin after that. Consider G I evaluation if it has not been done for acute anemia. Follow cardiology, pulmonary and surgical re commendations. Dictated By: LESLIE FERRARO LABORER GENER[employer] for [facility] HERNANDEZ/SCOTTIE Conf#: [id number] DID#: [id number]
--- NOTE | 2016-08-28 13:53 | PN ---
Date/Time of Note Date/Time of Note DATE: 08/28/16 TIME: 13:45 Assessment/Plan VTE Prophylaxis VTE Prophylaxis Intervention: LMWH Lines/Catheters IV Catheter Type (from [facility]): PORT-A-CATH Urinary Cath still in place: Yes Reason Cath still needed: urinary retention Assessment/Plan Chief Complaint/Hosp Course ASSESSMENT AND PLAN: 46-year-old male sent in with fever and diaphoresis with findings of septic shock. 1) Sepsis/shock - sec to HCAP likely + decub ulcer infx's, now with shock - on pressor support and back on IV abx. sp bronch/atb's. - continue abx, wean pressor support as tolerated - f/u ID, pulm, and and palliative care rec's - f/u cx results 2) Decubitus wound/ MDR organisms. Diverting colostomy & debridement may not be feasible while on vent. quality of life will not improve post therapy. 3) Quadraplegia; poor prognosis; palliative care eval appreciated - for now pt is full code. Pt appears to be able to make decisions, but has said he still wants his brother to make decisions on his behalf if he cannot do so. Also, palliative team is waiting for a call from family members, especially 2 children , and will update them as pt is now critically ill. 4) Ho C2 fracture - monitor 5) VDRF; cont vent, f/u pulm rec's 6) Ho c diff - monitor 7) Chr CHF/ systolic? - monitor 8) Past tobacco - monitor 9) Malnutrition; cont peg/feeds/free water. 10) Elevated Ca; Calcium dced. Still high despite pamidronate given x 1 yesterday as well as IVF's. - monitor - if not improves or increases, consider endo consult? Critical care time spent with pt care today = 45 min. Problems: Subjective 24 Hr Interval Summary Free Text/Dictation Pt transferred to ICU, on pressor x 1, and now IV abx. Pt spoke with palliative care team yesterday as well, full code for now Exam/Review of Systems Vital Signs Vitals Vital Signs Date Time Temp Pulse Resp B/P Pulse Ox O2 Delivery O2 Flow Rate FiO2 08/28/16 12:00 122 08/28/16 11:15 24 92 70 08/28/16 04:00 98.1 93/52 08/27/16 04:00 Mechanical Ventilator Intake and Output 08/27/16 08/27/16 08/28/16 15:00 23:00 07:00 Intake Total 350 ml 2260 ml 2380 ml Output Total 750 ml 1400 ml Balance 350 ml 1510 ml 980 ml Exam Gen: lying in bed, lethargic HEENT: PERRL/EOMI Neck: Trach c/d/i. no pallor. Positive thrush CV: Reg RR Res: Dimin bs bilat; port - no drainage GI: Bs + nt nd, no r/r/g. PEG c/d/i Ext- hypotonia. some edema. Wound dressed. Results Result Diagram: 08/28/16 0549 08/28/16 0549 Results 24 hrs Laboratory Tests Test 08/27/16 17:07 08/27/16 22:10 08/28/16 05:30 08/28/16 05:49 Bedside Glucose 142 126 109 White Blood Count 28.8 #H Red Blood Count 2.61 L Hemoglobin 6.9 *L Hematocrit 24.2 L Mean Corpuscular Volume 92.7 Mean Corpuscular Hemoglobin 26.4 L Mean Corpuscular Hemoglobin Concent 28.5 L Red Cell Distribution Width 17.9 H Platelet Count 377 Mean Platelet Volume 10.3 Neutrophils % 71.0 Band Neutrophils % 18.0 H Lymphocytes % 4.0 L Monocytes % 3.0 Eosinophils % 4.0 Neutrophils # 20.4 H Lymphocytes # 1.2 Monocytes # 0.9 Eosinophils # 1.2 H Sodium Level 139 Potassium Level 4.4 Chloride Level 107 Carbon Dioxide Level 27 Anion Gap 9 Blood Urea Nitrogen 47 H Creatinine 0.71 Glucose Level 107 Calcium Level 12.0 H Test 08/28/16 11:20 Lactic Acid Level 0.8 Medications Medications Current Medications Ondansetron HCl (Zofran Inj) 4 mg Q6H PRN IV NAUSEA AND/OR VOMITING Last administered on 08/15/16 05:11; Admin Dose 4 MG; Start 07/31/16 at 15:00 Morphine Sulfate (morphine) 2 mg Q4H PRN IV SEVERE PAIN LEVEL 7-10 Last administered on 08/20/16 00:32; Admin Dose 2 MG; Start 07/31/16 at 15:00 Magnesium Hydroxide (Milk Of Mag) 30 ml DAILY PRN PO CONSTIPATION; Start at 15:00 Sodium Biphosphate/ Sodium Phosphate (Fleet Enema) 133 ml DAILY PRN RI CONSTIPATION; Start 07/31/16 at 15:00 Hydralazine HCl (Apresoline) 10 mg Q6H PRN IV ELEVATED BLOOD PRESSURE; Start at 15:00 Nitroglycerin (Nitroglycerin (Sl Tab) 0.4 Mg) 1 tab Q5M PRN SL ANGINA; Start at 15:00 Miscellaneous Information 1 ea NOTE XX ; Start 07/31/16 at 16:30 Glucose (Glutose) 15 gm Q15M PRN PO DECREASED GLUCOSE; Start 07/31/16 at 16:30 Glucose (Glutose) 22.5 gm Q15M PRN PO DECREASED GLUCOSE; Start 07/31/16 at 16: 30 Dextrose (D50w Syringe) 25 ml Q15M PRN IV DECREASED GLUCOSE; Start 07/31/16 at 16:30 Dextrose (D50w Syringe) 50 ml Q15M PRN IV DECREASED GLUCOSE; Start 07/31/16 at 16:30 Glucagon (Glucagen) 1 mg Q15M PRN IM DECREASED GLUCOSE; Start 07/31/16 at 16:30 Glucose (Glutose) 15 gm Q15M PRN BUCCAL DECREASED GLUCOSE; Start 07/31/16 at 16 :30 Sodium Hypochlorite (Dakin'S (1/4 Strength)) 1 applic BID IRR Last administered on 08/27/16 22:00; Admin Dose 1 APPLIC; Start 08/01/16 at 21:00 Acetaminophen/ Hydrocodone Bitart ([place] (5/325)) 1 tab Q4H PRN PEG MODERATE PAIN LEVEL 4-6 Last administered on 08/26/16 22:23; Admin Dose 1 TAB; Start 08/02/16 at 00:00 Lorazepam (Ativan) 0.5 mg Q4H PRN IV ANXIETY Last administered on 08/26/16 18: 05; Admin Dose 0.5 MG; Start 08/02/16 at 00:00 Zolpidem Tartrate (Ambien) 10 mg HS PRN PEG INSOMNIA Last administered on 22:53; Admin Dose 10 MG; Start 08/02/16 at 03:30 Ibuprofen (Motrin) 600 mg Q6H PRN PO PAIN OR TEMP ABOVE 38C Last administered on 08/11/16 21:29; Admin Dose 600 MG; Start 08/02/16 at 15:00 Zinc Sulfate (Zinc Sulfate) 220 mg DAILY GTB Last administered on 08/28/16 09: 58; Admin Dose 220 MG; Start 08/03/16 at 11:30 Multivitamins Therapeutic (Theragran) 1 tab DAILY PO Last administered on 09:58; Admin Dose 1 TAB; Start 08/03/16 at 11:30 Ascorbic Acid (Vitamin C) 500 mg BID GTB Last administered on 08/28/16 09:58; Admin Dose 500 MG; Start 08/03/16 at 11:30 Sodium Hypochlorite (Dakin'S (Dilute 1/40%)) 1 applic BID IRR Last administered on 08/27/16 22:00; Admin Dose 1 APPLIC; Start 08/04/16 at 12:00 Levothyroxine Sodium (Synthroid) 25 mcg DAILY@06 PO Last administered on 05:31; Admin Dose 25 MCG; Start 08/11/16 at 06:00 Paroxetine HCl (Paxil) 10 mg DAILY PO Last administered on 08/27/16 08:54; Admin Dose 10 MG; Start 08/11/16 at 21:00 Insulin Aspart (Novolog Insulin Pen) NOVOLOG *MODERATE* ALGORI... Q6 SC Last administered on 08/27/16 17:19; Admin Dose 2 UNIT; Start 08/13/16 at 00:00 Lactobacillus Acidoph/Bulgaricus (Floranex) 1 tab TID GTB Last administered on 08/28/16 09:58; Admin Dose 1 TAB; Start 08/15/16 at 21:30 Metformin HCl (Glucophage) 500 mg Q12 GTB Last administered on 08/27/16 08:54 ; Admin Dose 500 MG; Start 08/15/16 at 21:30; Status Future Hold Acetaminophen (Tylenol Tab) 650 mg Q6H PRN GTB PAIN AND OR ELEVATED TEMP Last administered on 08/28/16 00:37; Admin Dose 650 MG; Start 08/15/16 at 21:30 Magnesium Oxide (Mag-Ox 400) 400 mg DAILY GTB Last administered on 08/28/16 09 :58; Admin Dose 400 MG; Start 08/20/16 at 09:00 Enoxaparin Sodium (Lovenox) 40 mg DAILY SC Last administered on 08/27/16 09:15 ; Admin Dose 40 MG; Start 08/22/16 at 09:00 Famotidine (Pepcid) 20 mg DAILY GTB Last administered on 08/28/16 09:58; Admin Dose 20 MG; Start 08/22/16 at 09:00 Potassium Chloride (Potassium Chloride Pwd/Soln) 40 meq BID GTB Last administered on 08/28/16 09:58; Admin Dose 40 MEQ; Start 08/23/16 at 21:00 Nystatin (Nystatin Susp) 5 ml QID PO Last administered on 08/28/16 09:58; Admin Dose 5 ML; Start 08/25/16 at 17:00 Hydromorphone HCl 1 mg 1 mg Q4H PRN IV PAIN Last administered on 08/27/16 21: 59; Admin Dose 1 MG; Start 08/27/16 at 21:00 Sodium Chloride 1,000 ml @ 75 mls/hr [id number] IV Last administered on 10:47; Admin Dose 75 MLS/HR; Start 08/27/16 at 21:00 Norepinephrine/ Dextrose (Levophed/D5W) 500 ml @ 1.87 mls/hr TITRATE IV Last administered on 08/28/16 10:46; Admin Dose 3.75 MLS/HR; Start 08/28/16 at 09:00 Midodrine 10 mg 10 mg TID@,,17 PO Last administered on 08/28/16 10:29; Admin Dose 10 MG; Start 08/28/16 at 10:24 Meropenem 100 ml @ 200 mls/hr Q12 IVPB ; Start 08/28/16 at 14:00 Vancomycin HCl 1.75 gm/Sodium Chloride 500 ml @ 125 mls/hr ONCE ONCE IVPB ; Start 08/28/16 at 16:00; Stop 08/28/16 at 19:59 Vancomycin HCl/ Sodium Chloride (Vancocin/NS) 250 ml @ 83.333 mls/ hr Q12H IVPB ; Start 08/29/16 at 04:00 DARON FARRELL Aug 28, 2016 13:53
[2016-08-28] MEDS: MEROPENEM 500 MG/100 ML (PMX) 100 ML IVPB SCH ×2 (13:58→22:07)
[2016-08-28] MEDS: SODIUM HYPOCHLORITE 1/40% 1L IRRIG IRR SCH ×2 (14:33→21:00)
[2016-08-28] MEDS: SODIUM HYPOCHLORITE 0.125% 473 ML BTL IRR SCH ×2 (14:33→21:00)
[2016-08-28] MEDS ORDERED: VANCOMYCIN 1.75 GM in NS 500 ML IVPB ONE (16:00)
--- NOTE | 2016-08-28 17:15 | CONS ---
Date/Time of Note Date/Time of Note DATE: 08/28/16 TIME: 17:14 Assessment/Plan Assessment/Plan Additional Assessment/Plan Septic shock Acute decompensated systolic congestive heart failure Sinus tachycardia C2 fracture and quadriplegic Respiratory failure Cardiomyopathy with ejection fraction 50% via echo on previous admission Decubiti Hypotension -Patient with worsening blood pressure requiring transfer to ICU. Has been started on IV pressor, continue to maintain SBP greater than 90 and/or map greater than 60. Antibiotics as per infectious disease. Palliative care planning family meeting to discuss goals of therapy. Would continue to hold any antihypertensives at the current time Consultation Date/Type/Reason Admit Date/Time Jul 31, 2016 at 14:20 Type of Consultation: cv 24 HR Interval Summary Free Text/Dictation Patient transferred to ICU secondary to worsening blood pressure Exam/Review of Systems Vital Signs Vitals Vital Signs Date Time Temp Pulse Resp B/P Pulse Ox O2 Delivery O2 Flow Rate FiO2 08/28/16 16:00 124 08/28/16 11:15 24 92 70 08/28/16 04:00 98.1 93/52 08/27/16 04:00 Mechanical Ventilator Intake and Output 08/27/16 08/27/16 08/28/16 15:00 23:00 07:00 Intake Total 350 ml 2260 ml 2380 ml Output Total 750 ml 1400 ml Balance 350 ml 1510 ml 980 ml Exam Sleeping, arousable but appears very tired, occasionally trying to speak Neck: other (Tracheostomy) Respiratory: other (Coarse breath sounds bilaterally, no wheezing) Cardiovascular: other (S1-S2 heard), regular rate and rhythm Gastrointestinal: bowel sounds, non-tender, other (No guarding), soft Extremities: edema, other (No cyanosis) Results Result Diagram: 08/28/16 0549 08/28/16 0549 Results 24 hrs Laboratory Tests Test 08/27/16 22:10 08/28/16 05:30 08/28/16 05:49 08/28/16 11:20 Bedside Glucose 126 109 White Blood Count 28.8 #H Red Blood Count 2.61 L Hemoglobin 6.9 *L Hematocrit 24.2 L Mean Corpuscular Volume 92.7 Mean Corpuscular Hemoglobin 26.4 L Mean Corpuscular Hemoglobin Concent 28.5 L Red Cell Distribution Width 17.9 H Platelet Count 377 Mean Platelet Volume 10.3 Neutrophils % 71.0 Band Neutrophils % 18.0 H Lymphocytes % 4.0 L Monocytes % 3.0 Eosinophils % 4.0 Neutrophils # 20.4 H Lymphocytes # 1.2 Monocytes # 0.9 Eosinophils # 1.2 H Sodium Level 139 Potassium Level 4.4 Chloride Level 107 Carbon Dioxide Level 27 Anion Gap 9 Blood Urea Nitrogen 47 H Creatinine 0.71 Glucose Level 107 Calcium Level 12.0 H Lactic Acid Level 0.8 Medications Medications Current Medications Ondansetron HCl (Zofran Inj) 4 mg Q6H PRN IV NAUSEA AND/OR VOMITING Last administered on 08/15/16 05:11; Admin Dose 4 MG; Start 07/31/16 at 15:00 Morphine Sulfate (morphine) 2 mg Q4H PRN IV SEVERE PAIN LEVEL 7-10 Last administered on 08/20/16 00:32; Admin Dose 2 MG; Start 07/31/16 at 15:00 Magnesium Hydroxide (Milk Of Mag) 30 ml DAILY PRN PO CONSTIPATION; Start at 15:00 Sodium Biphosphate/ Sodium Phosphate (Fleet Enema) 133 ml DAILY PRN DE CONSTIPATION; Start 07/31/16 at 15:00 Hydralazine HCl (Apresoline) 10 mg Q6H PRN IV ELEVATED BLOOD PRESSURE; Start at 15:00 Nitroglycerin (Nitroglycerin (Sl Tab) 0.4 Mg) 1 tab Q5M PRN SL ANGINA; Start at 15:00 Miscellaneous Information 1 ea NOTE XX ; Start 07/31/16 at 16:30 Glucose (Glutose) 15 gm Q15M PRN PO DECREASED GLUCOSE; Start 07/31/16 at 16:30 Glucose (Glutose) 22.5 gm Q15M PRN PO DECREASED GLUCOSE; Start 07/31/16 at 16: 30 Dextrose (D50w Syringe) 25 ml Q15M PRN IV DECREASED GLUCOSE; Start 07/31/16 at 16:30 Dextrose (D50w Syringe) 50 ml Q15M PRN IV DECREASED GLUCOSE; Start 07/31/16 at 16:30 Glucagon (Glucagen) 1 mg Q15M PRN IM DECREASED GLUCOSE; Start 07/31/16 at 16:30 Glucose (Glutose) 15 gm Q15M PRN BUCCAL DECREASED GLUCOSE; Start 07/31/16 at 16 :30 Sodium Hypochlorite (Dakin'S (1/4 Strength)) 1 applic BID IRR Last administered on 08/28/16 14:33; Admin Dose 1 APPLIC; Start 08/01/16 at 21:00 Acetaminophen/ Hydrocodone Bitart ([place] (5/325)) 1 tab Q4H PRN PEG MODERATE PAIN LEVEL 4-6 Last administered on 08/26/16 22:23; Admin Dose 1 TAB; Start 08/02/16 at 00:00 Lorazepam (Ativan) 0.5 mg Q4H PRN IV ANXIETY Last administered on 08/26/16 18: 05; Admin Dose 0.5 MG; Start 08/02/16 at 00:00 Zolpidem Tartrate (Ambien) 10 mg HS PRN PEG INSOMNIA Last administered on 22:53; Admin Dose 10 MG; Start 08/02/16 at 03:30 Ibuprofen (Motrin) 600 mg Q6H PRN PO PAIN OR TEMP ABOVE 38C Last administered on 08/11/16 21:29; Admin Dose 600 MG; Start 08/02/16 at 15:00 Zinc Sulfate (Zinc Sulfate) 220 mg DAILY GTB Last administered on 08/28/16 09: 58; Admin Dose 220 MG; Start 08/03/16 at 11:30 Multivitamins Therapeutic (Theragran) 1 tab DAILY PO Last administered on 09:58; Admin Dose 1 TAB; Start 08/03/16 at 11:30 Ascorbic Acid (Vitamin C) 500 mg BID GTB Last administered on 08/28/16 09:58; Admin Dose 500 MG; Start 08/03/16 at 11:30 Sodium Hypochlorite (Dakin'S (Dilute 1/40%)) 1 applic BID IRR Last administered on 08/28/16 14:33; Admin Dose 1 APPLIC; Start 08/04/16 at 12:00 Levothyroxine Sodium (Synthroid) 25 mcg DAILY@06 PO Last administered on 05:31; Admin Dose 25 MCG; Start 08/11/16 at 06:00 Paroxetine HCl (Paxil) 10 mg DAILY PO Last administered on 08/27/16 08:54; Admin Dose 10 MG; Start 08/11/16 at 21:00 Insulin Aspart (Novolog Insulin Pen) NOVOLOG *MODERATE* ALGORI... Q6 SC Last administered on 08/27/16 17:19; Admin Dose 2 UNIT; Start 08/13/16 at 00:00 Lactobacillus Acidoph/Bulgaricus (Floranex) 1 tab TID GTB Last administered on 08/28/16 13:58; Admin Dose 1 TAB; Start 08/15/16 at 21:30 Metformin HCl (Glucophage) 500 mg Q12 GTB Last administered on 08/27/16 08:54 ; Admin Dose 500 MG; Start 08/15/16 at 21:30; Status Future Hold Acetaminophen (Tylenol Tab) 650 mg Q6H PRN GTB PAIN AND OR ELEVATED TEMP Last administered on 08/28/16 00:37; Admin Dose 650 MG; Start 08/15/16 at 21:30 Magnesium Oxide (Mag-Ox 400) 400 mg DAILY GTB Last administered on 08/28/16 09 :58; Admin Dose 400 MG; Start 08/20/16 at 09:00 Enoxaparin Sodium (Lovenox) 40 mg DAILY SC Last administered on 08/27/16 09:15 ; Admin Dose 40 MG; Start 08/22/16 at 09:00 Famotidine (Pepcid) 20 mg DAILY GTB Last administered on 08/28/16 09:58; Admin Dose 20 MG; Start 08/22/16 at 09:00 Potassium Chloride (Potassium Chloride Pwd/Soln) 40 meq BID GTB Last administered on 08/28/16 09:58; Admin Dose 40 MEQ; Start 08/23/16 at 21:00 Nystatin (Nystatin Susp) 5 ml QID PO Last administered on 08/28/16 13:58; Admin Dose 5 ML; Start 08/25/16 at 17:00 Hydromorphone HCl 1 mg 1 mg Q4H PRN IV PAIN Last administered on 08/27/16 21: 59; Admin Dose 1 MG; Start 08/27/16 at 21:00 Sodium Chloride 1,000 ml @ 75 mls/hr [id number] IV Last administered on 10:47; Admin Dose 75 MLS/HR; Start 08/27/16 at 21:00 Norepinephrine/ Dextrose (Levophed/D5W) 500 ml @ 1.87 mls/hr TITRATE IV Last administered on 08/28/16 10:46; Admin Dose 3.75 MLS/HR; Start 08/28/16 at 09:00 Midodrine 10 mg 10 mg TID@,,17 PO Last administered on 08/28/16 13:58; Admin Dose 10 MG; Start 08/28/16 at 10:24 Meropenem 100 ml @ 200 mls/hr Q12 IVPB Last administered on 08/28/16 13:58; Admin Dose 200 MLS/HR; Start 08/28/16 at 14:00 Vancomycin HCl 1.75 gm/Sodium Chloride 500 ml @ 125 mls/hr ONCE ONCE IVPB ; Start 08/28/16 at 16:00; Stop 08/28/16 at 19:59 Vancomycin HCl/ Sodium Chloride (Vancocin/NS) 250 ml @ 83.333 mls/ hr Q12H IVPB ; Start 08/29/16 at 04:00 Kb Barrett DO Aug 28, 2016 17:15
[2016-08-28 18:26] LABS: POST-TRANSFUSION BILIRUBIN 0.1 mg/dl
[2016-08-28 19:37] LABS: ADD UMIC YES; URINE BILIRUBIN (Dip) NEGATIVE (NEGATIVE); URINE BLOOD (Dip) TRACE (NEGATIVE); URINE COLOR LT. YELLOW (YELLOW); URINE GLUCOSE (Dip) NEGATIVE (NEGATIVE); URINE KETONES (Dip) NEGATIVE (NEGATIVE); URINE LEUKOCYTE ESTERASE (Dip) NEGATIVE (NEGATIVE); URINE NITRITE (Dip) NEGATIVE (NEGATIVE); URINE TOTAL PROTEIN (Dip) 1+ (NEGATIVE); URINE UROBILINOGEN (Dip) 0.2 E.U./dL (0.1-1.0)
[2016-08-28 19:50] LABS: BACTERIA,URINE MANY; SQUAMOUS EPITHELIAL CELL,UR FEW
[2016-08-29] VITALS (86 sets, daily range): BP systolic 74–125; BP diastolic 42–75; PULSE 99–133; RESP 19–26
[2016-08-29] MEDS ORDERED: VANCOMYCIN 1.25 GM in SOD CHLORIDE 0.9% 250 ML IVPB SCH (04:00)
[2016-08-29] MEDS: LEVOTHYROXINE 25 MCG TAB PO SCH (05:50)
[2016-08-29] MEDS: INSULIN ASPART [NOVOLOG] 3 ML PEN SC SCH ×4 (05:54→23:52)
[2016-08-29 06:02] LABS: ADD SCAN DIFF NO
[2016-08-29 06:13] LABS: ABNORMAL IP MESSAGE 1; HEMATOCRIT 26.2 % (42.0-52.0); HEMOGLOBIN 7.7 g/dl (14.0-18.0); MEAN CORPUSCULAR HEMOGLOBIN 26.7 pg (29.0-33.0); MEAN CORPUSCULAR HGB CONC 29.4 g/dl (32.0-37.0); MEAN PLATELET VOLUME 9.7 fl (7.4-10.4); PLATELET COUNT 445 10^3/UL (140-415); RED BLOOD COUNT 2.88 10^6/ul (4.70-6.10); RED CELL DISTRIBUTION WIDTH 17.8 % (11.5-14.5); WHITE BLOOD COUNT 39.3 10^3/ul (4.8-10.8)
[2016-08-29 06:21] LABS: POTASSIUM 4.8 mmol/L (3.5-5.1)
[2016-08-29 06:23] LABS: CREATININE 0.65 mg/dl (0.61-1.24)
[2016-08-29 06:24] LABS: CALCIUM 12.1 mg/dl (8.4-10.2)
[2016-08-29 08:08] LABS: AADO2 Arterial 354.1 mmHg (7.0-24.0); Allen Test ACCEPTAB; Arterial Base Excess -2.6 mmol/L (-3.0-3); Arterial COHb 0.3 % (0.0-3.0); Arterial Fraction of Oxyhgb 96.3 % (93.0-99.0); Arterial HCO3 22.6 mmol/L (22.0-26.0); Arterial MetHb 0.4 % (0.0-1.5); Arterial Total Hemglobin 8.7 g/dl (12.0-18.0); MODE VENT - AC
[2016-08-29] MEDS: ALBUTEROL HFA 8 GM INHALER INH SCH ×2 (08:25→15:21)
--- NOTE | 2016-08-29 08:36 | RADRPT ---
PROCEDURE: XR Chest 1 View. CLINICAL INDICATION: Shortness of breath TECHNIQUE: AP view of the chest was obtained. COMPARISON: Yesterday FINDINGS: The cardiomediastinal silhouette is within normal limits. Tracheostomy tube is stable. Left chest p ort is unchanged. Right upper lobe consolidation is stable. Infiltrate in the left midlung is stab le. Retrocardiac opacity is unchanged. Diffuse interstitial prominence in both lungs is stable. M ild perihilar infiltrates in the right lower lobe are unchanged . Small right pleural effusion is s table. Pleural thickening at the right apex is stable. The osseous structures are unchanged. IMPRESSION: Stable interstitial prominence in both lungs. Stable right upper lobe consolidation. Stable focal infiltrates in the left mid lung. Stable retrocardiac opacity that may reflect left lower lobe atelectasis or infiltrate combined with small pleural effusion. Stable potential perihilar infiltrates in the right lower lobe and small right pleural effusion. Stable pleural thickening at the right apex that could reflect loculated pleural fluid. RPTAT: AA .Christian Saravia MD, Date Time Electronically viewed and signed by .Christian Saravia MD, on 08/29/2016 08:36 .P/
[2016-08-29] MEDS: POTASSIUM CHLORIDE 20 MEQ POWDER FOR ORAL SOLN GTB SCH ×2 (09:00→21:40)
--- NOTE | 2016-08-29 09:03 | CONS ---
Date/Time of Note Date/Time of Note DATE: 08/29/16 TIME: 09:00 Assessment/Plan Assessment/Plan Additional Assessment/Plan Ventilator settings; AC of 24, tidal volume 500, PEEP of 5, 70% FiO2. Chest x-ray was reviewed from today which is again showing bilateral infiltrative changes with interval improvement. Right upper lobe consolidation as well as left midlung and left lower lobe consolidation are seen. Assessment recommendations; 1. Patient admitted with severe bilateral pneumonia and sepsis. 2. Severe sacral and right lateral hip decubitus ulcers. 3. Hypothyroidism. 4. Diabetes. 5. Quadriplegia. Continue current treatment. Wean down FiO2 to keep O2 sat around 94%. Overall prognosis remains poor. She likely may need to have a diverting colostomy once he is clinically more stable. Consultation Date/Type/Reason Admit Date/Time Jul 31, 2016 at 14:20 Initial Consult Date 08/02/16 Type of Consultation: Pulmonary critical care 24 HR Interval Summary Free Text/Dictation Patient condition remains critical. Still requiring full ventilator support at high FiO2. Patient however has remained hemodynamically stable. General exam; young male, on ventilator via tracheostomy awake, currently in no distress. Exam/Review of Systems Vital Signs Vitals Vital Signs Date Time Temp Pulse Resp B/P Pulse Ox O2 Delivery O2 Flow Rate FiO2 08/29/16 08:13 119 24 98 70 08/29/16 08:00 98.7 105/60 Mechanical Ventilator Intake and Output 08/28/16 08/28/16 08/29/16 15:00 23:00 07:00 Intake Total 411.25 ml 225 ml 5 ml Output Total 880 ml 795 ml 1100 ml Balance -468.75 ml -570 ml -1095 ml Exam HEENT exam is; tracheostomy in place with clean insertion site. There was a midsize reactive to light bilaterally. No neck masses. No lymphadenopathy. C- spine soft collar is in place. Chest examination; scattered crackles bilaterally. S1-S2 audible, no murmurs. Regular rhythm. Abdomen examination; soft, nondistended. G-tube in place. Bowel sounds audible. Back examination reveals dressing applied over the sacrum and and hips bilaterally. Extremity exam; no peripheral edema. 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 Results Result Diagram: 08/29/16 0600 08/29/16 0600 Results 24 hrs Laboratory Tests Test 08/28/16 11:20 08/28/16 18:45 08/28/16 23:34 08/29/16 05:53 Lactic Acid Level 0.8 Urine Color LT. YELLOW Urine Clarity CLOUDY H Urine pH 7.0 Urine Specific [place] 1.015 Urine Ketones NEGATIVE Urine Nitrite NEGATIVE Urine Bilirubin NEGATIVE Urine Urobilinogen 0.2 E.U./dL Urine Leukocyte Esterase NEGATIVE Urine Microscopic RBC 2-5 Urine Microscopic WBC 5-10 Urine Squamous Epithelial Cells FEW Urine Bacteria MANY Urine Coarse Granular Casts MANY Urine Hemoglobin TRACE Urine Glucose NEGATIVE Urine Total Protein 1+ H Bedside Glucose 101 104 Test 08/29/16 06:00 08/29/16 07:00 White Blood Count 39.3 #H Red Blood Count 2.88 L Hemoglobin 7.7 L Hematocrit 26.2 L Mean Corpuscular Volume 91.0 Mean Corpuscular Hemoglobin 26.7 L Mean Corpuscular Hemoglobin Concent 29.4 L Red Cell Distribution Width 17.8 H Platelet Count 445 H Mean Platelet Volume 9.7 Neutrophils % Eosinophils % Neutrophils # Eosinophils # Sodium Level 146 H Potassium Level 4.8 Chloride Level 112 H Carbon Dioxide Level 28 Anion Gap 11 Blood Urea Nitrogen 38 H Creatinine 0.65 Glucose Level 107 Lactic Acid Level 0.7 Calcium Level 12.1 H Blood Gas Specimen Source Blood arterial Arterial Blood Date Drawn 08/29/2016 7:10:17 AM Arterial Blood pH (Temp corrected) 7.363 Arterial Blood pCO2 (Temp correct) 40.7 Arterial Blood pO2 (Temp corrected) 101.3 H Arterial Blood HCO3 22.6 Arterial Blood Base Excess -2.6 Arterial Blood Oxygen Saturation 97.0 [place] Test ACCEPTAB Arterial Blood Gas Puncture Site Right Radial Arterial Blood Carboxyhemoglobin 0.3 Arterial Blood Methemoglobin 0.4 Blood Gas A-a O2 Differential 354.1 H Oxyhemoglobin Percent 96.3 Total Hemoglobin 8.7 L Blood Gas Temperature 37.0 Blood Gas Respiration Rate 24.0 Blood Gas Actual Respiration Rate 24 Blood Gas Modality VENT - AC FiO2 70.0 Blood Gas Tidal Volume 500.0 Blood Gas Low PEEP Setting 5.0 Blood Gas Notified Whom JLD Blood Gas Notified Time 08/29/2016 8:07:56 AM Medications Medications Current Medications Ondansetron HCl (Zofran Inj) 4 mg Q6H PRN IV NAUSEA AND/OR VOMITING Last administered on 08/15/16 05:11; Admin Dose 4 MG; Start 07/31/16 at 15:00 Morphine Sulfate (morphine) 2 mg Q4H PRN IV SEVERE PAIN LEVEL 7-10 Last administered on 08/20/16 00:32; Admin Dose 2 MG; Start 07/31/16 at 15:00 Magnesium Hydroxide (Milk Of Mag) 30 ml DAILY PRN PO CONSTIPATION; Start at 15:00 Sodium Biphosphate/ Sodium Phosphate (Fleet Enema) 133 ml DAILY PRN [place] CONSTIPATION; Start 07/31/16 at 15:00 Hydralazine HCl (Apresoline) 10 mg Q6H PRN IV ELEVATED BLOOD PRESSURE; Start at 15:00 Nitroglycerin (Nitroglycerin (Sl Tab) 0.4 Mg) 1 tab Q5M PRN SL ANGINA; Start at 15:00 Miscellaneous Information 1 ea NOTE XX ; Start 07/31/16 at 16:30 Glucose (Glutose) 15 gm Q15M PRN PO DECREASED GLUCOSE; Start 07/31/16 at 16:30 Glucose (Glutose) 22.5 gm Q15M PRN PO DECREASED GLUCOSE; Start 07/31/16 at 16: 30 Dextrose (D50w Syringe) 25 ml Q15M PRN IV DECREASED GLUCOSE; Start 07/31/16 at 16:30 Dextrose (D50w Syringe) 50 ml Q15M PRN IV DECREASED GLUCOSE; Start 07/31/16 at 16:30 Glucagon (Glucagen) 1 mg Q15M PRN IM DECREASED GLUCOSE; Start 07/31/16 at 16:30 Glucose (Glutose) 15 gm Q15M PRN BUCCAL DECREASED GLUCOSE; Start 07/31/16 at 16 :30 Sodium Hypochlorite (Dakin'S (1/4 Strength)) 1 applic BID IRR Last administered on 08/28/16 21:00; Admin Dose 1 APPLIC; Start 08/01/16 at 21:00 Acetaminophen/ Hydrocodone Bitart ([place] (5/325)) 1 tab Q4H PRN PEG MODERATE PAIN LEVEL 4-6 Last administered on 08/26/16 22:23; Admin Dose 1 TAB; Start 08/02/16 at 00:00 Lorazepam (Ativan) 0.5 mg Q4H PRN IV ANXIETY Last administered on 08/26/16 18: 05; Admin Dose 0.5 MG; Start 08/02/16 at 00:00 Zolpidem Tartrate (Ambien) 10 mg HS PRN PEG INSOMNIA Last administered on 22:53; Admin Dose 10 MG; Start 08/02/16 at 03:30 Ibuprofen (Motrin) 600 mg Q6H PRN PO PAIN OR TEMP ABOVE 38C Last administered on 08/11/16 21:29; Admin Dose 600 MG; Start 08/02/16 at 15:00 Zinc Sulfate (Zinc Sulfate) 220 mg DAILY GTB Last administered on 08/28/16 09: 58; Admin Dose 220 MG; Start 08/03/16 at 11:30 Multivitamins Therapeutic (Theragran) 1 tab DAILY PO Last administered on 09:58; Admin Dose 1 TAB; Start 08/03/16 at 11:30 Ascorbic Acid (Vitamin C) 500 mg BID GTB Last administered on 08/28/16 22:04; Admin Dose 500 MG; Start 08/03/16 at 11:30 Sodium Hypochlorite (Dakin'S (Dilute 1/40%)) 1 applic BID IRR Last administered on 08/28/16 21:00; Admin Dose 1 APPLIC; Start 08/04/16 at 12:00 Levothyroxine Sodium (Synthroid) 25 mcg DAILY@06 PO Last administered on 05:50; Admin Dose 25 MCG; Start 08/11/16 at 06:00 Paroxetine HCl (Paxil) 10 mg DAILY PO Last administered on 08/27/16 08:54; Admin Dose 10 MG; Start 08/11/16 at 21:00 Insulin Aspart (Novolog Insulin Pen) NOVOLOG *MODERATE* ALGORI... Q6 SC Last administered on 08/27/16 17:19; Admin Dose 2 UNIT; Start 08/13/16 at 00:00 Lactobacillus Acidoph/Bulgaricus (Floranex) 1 tab TID GTB Last administered on 08/28/16 22:04; Admin Dose 1 TAB; Start 08/15/16 at 21:30 Metformin HCl (Glucophage) 500 mg Q12 GTB Last administered on 08/27/16 08:54 ; Admin Dose 500 MG; Start 08/15/16 at 21:30; Status Future Hold Acetaminophen (Tylenol Tab) 650 mg Q6H PRN GTB PAIN AND OR ELEVATED TEMP Last administered on 08/28/16 14:46; Admin Dose 650 MG; Start 08/15/16 at 21:30 Magnesium Oxide (Mag-Ox 400) 400 mg DAILY GTB Last administered on 08/28/16 09 :58; Admin Dose 400 MG; Start 08/20/16 at 09:00 Enoxaparin Sodium (Lovenox) 40 mg DAILY SC Last administered on 08/27/16 09:15 ; Admin Dose 40 MG; Start 08/22/16 at 09:00 Famotidine (Pepcid) 20 mg DAILY GTB Last administered on 08/28/16 09:58; Admin Dose 20 MG; Start 08/22/16 at 09:00 Potassium Chloride (Potassium Chloride Pwd/Soln) 40 meq BID GTB Last administered on 08/28/16 22:05; Admin Dose 40 MEQ; Start 08/23/16 at 21:00 Nystatin (Nystatin Susp) 5 ml QID PO Last administered on 08/28/16 22:04; Admin Dose 5 ML; Start 08/25/16 at 17:00 Hydromorphone HCl 1 mg 1 mg Q4H PRN IV PAIN Last administered on 08/27/16 21: 59; Admin Dose 1 MG; Start 08/27/16 at 21:00 Sodium Chloride 1,000 ml @ 75 mls/hr [id number] IV Last administered on 22:06; Admin Dose 75 MLS/HR; Start 08/27/16 at 21:00 Norepinephrine/ Dextrose (Levophed/D5W) 500 ml @ 1.87 mls/hr TITRATE IV Last administered on 08/28/16 10:46; Admin Dose 3.75 MLS/HR; Start 08/28/16 at 09:00 Midodrine 10 mg 10 mg TID@09,13,17 PO Last administered on 08/28/16 17:58; Admin Dose 10 MG; Start 08/28/16 at 10:24 Meropenem 100 ml @ 200 mls/hr Q12 IVPB Last administered on 08/28/16 22:07; Admin Dose 200 MLS/HR; Start 08/28/16 at 14:00 Vancomycin HCl/ Sodium Chloride (Vancocin/NS) 250 ml @ 83.333 mls/ hr Q12H IVPB Last administered on 08/29/16t 04:30; Admin Dose 83.333 MLS/HR; Start at 04:00 ALISSON ARRIOLA Aug 29, 2016 09:03
[2016-08-29] MEDS: LACTOBACILLUS CHEW TAB GTB SCH ×3 (09:08→21:41)
[2016-08-29] MEDS: FAMOTIDINE 20 MG TAB GTB SCH (09:08)
[2016-08-29] MEDS: ASCORBIC ACID 500 MG TAB GTB SCH ×2 (09:08→21:40)
[2016-08-29] MEDS: MAGNESIUM OXIDE 400 MG TAB GTB SCH (09:08)
[2016-08-29] MEDS: MEROPENEM 500 MG/100 ML (PMX) 100 ML IVPB SCH (09:09)
[2016-08-29] MEDS: ZINC SULFATE 220 MG CAP GTB SCH (09:09)
[2016-08-29] MEDS: SODIUM HYPOCHLORITE 1/40% 1L IRRIG IRR SCH ×2 (09:09→21:42)
[2016-08-29] MEDS: PAROXETINE 10 MG TAB PO SCH (09:10)
[2016-08-29] MEDS: MULTIVITAMINS THERAPEUTIC TAB PO SCH (09:10)
[2016-08-29] MEDS: NYSTATIN SUSP 5 ML CUP PO SCH ×4 (09:10→21:39)
[2016-08-29] MEDS: SODIUM HYPOCHLORITE 0.125% 473 ML BTL IRR SCH ×2 (09:10→21:41)
[2016-08-29] MEDS: MIDODRINE 5 MG TAB PO SCH ×3 (09:11→17:18)
[2016-08-29] MEDS: ENOXAPARIN 40 MG/0.4 ML SYG SC SCH (09:14)
[2016-08-29 09:45] LABS: EOSINOPHILS # 1.2 10^3/ul (0.0-0.5); LYMPHOCYTES # 0.8 10^3/ul (0.8-2.9); MONOCYTE # 0.8 10^3/ul (0.3-0.9)
[2016-08-29] MEDS: morphine 2 MG INJ IV PRN (12:30)
--- NOTE | 2016-08-29 12:30 | PN ---
DATE: 08/29/2016 SUBJECTIVE: No acute events. The patient is on 1 mcg of Levophed drip. He is lying comfortably in bed, afebrile, tachycardic. VITAL SIGNS: Temperature 98.7, pulse 110, respirations 24, blood pressure 119/ 70, saturation 97 on 60 FIO2. LABORATORIES: WBC today 39.3, H and H 7.7 and 26.2, platelets 445, neutrophils 79, bands 12, lymphs 2, monos 2. BUN 38, creatinine 0.65. INDWELLINGS: Trach, PEG, Oliveira, left chest Port-A-Cath. MICROBIOLOGY: Blood culture from yesterday remain negative. Urine culture negative. Stool for C. diff. on 08/25/2016 was negative tests. PHYSICAL EXAMINATION: GENERAL: This is a chronically ill-appearing, wasted, middle-aged man who is in no distress. HEENT: Head atraumatic, normocephalic. Sclerae anicteric. Buccal mucosa dry. NECK: Supple. Tracheostomy present. CHEST: Rise symmetrical. Breath sounds diminished. HEART: S1, S2. ABDOMEN: Soft. Bowel tones present. EXTREMITIES: Bilateral edema. SKIN: No jaundice, no cyanosis. The patient has anasarca and multiple chronic decubitus. ASSESSMENT 1. Shock, possibly hypovolemic, so far repeat cultures had been negative. 2. Acute anemia, status post blood transfusion. 3. Leukocytosis, questionable leukemoid reaction. 4. Status post pneumonia and urinary tract infection. 5. Multiple chronic wounds, no evidence of osteomyelitis per CT of the pelvis status post 3 weeks of antibiotics. 6. 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 7. Diabetes. PLAN: We are going to restart Flagyl. Check procalcitonin and lactic acid levels and continue local wound care. Follow recommendations of consultants. Overall, prognosis is guarded. The patient is FULL CODE. Dictated By: LESLIE FERRARO RETAIL BUSINESS ANALYST for [employer] HERNANDEZ/SCOTTIE Conf#: [id number] DID#: [id number] MTDD
[2016-08-29] MEDS: metroNIDAZOLE 500 MG TAB PO SCH ×2 (13:31→21:40)
--- NOTE | 2016-08-29 14:28 | PN ---
Date/Time of Note Date/Time of Note DATE: 08/29/16 TIME: 14:24 Assessment/Plan VTE Prophylaxis VTE Prophylaxis Intervention: LMWH Lines/Catheters IV [facility] PORT A CATH Urinary Cath still in place: Yes Reason Cath still needed: urinary retention Assessment/Plan Chief Complaint/Hosp Course ASSESSMENT AND PLAN: 46-year-old male sent in with fever and diaphoresis with findings of septic shock. 1) Sepsis/shock - sec to HCAP likely + decub ulcer infx's, now with shock - on pressor support. sp bronch/atb's. - continue abx, per ID, PO Flagyl today, wean pressor support as tolerated - f/u ID, pulm, and and palliative care rec's - f/u cx results 2) Decubitus wound/ MDR organisms. Diverting colostomy & debridement may not be feasible while on vent. quality of life will not improve post therapy. - abx as above 3) Quadraplegia; poor prognosis; palliative care eval appreciated - for now pt is full code. Pt appears to be able to make decisions, but has said he still wants his brother to make decisions on his behalf if he cannot do so. Also, palliative team is waiting for a call from family members, especially 2 children, and will update them as pt is now critically ill. F/u rec's. 4) Ho C2 fracture - monitor 5) VDRF; cont vent, f/u pulm rec's 6) Ho c diff - monitor 7) Chr CHF/ systolic? - monitor 8) Past tobacco - monitor 9) Malnutrition; cont peg/feeds/free water. 10) Elevated Ca; Calcium dced. Still high despite pamidronate given x 1 2 days ago as well as IVF's. - monitor - if not improves or increases, consider endo consult? Critical care time spent with pt care today = 40 min. Problems: Subjective 24 Hr Interval Summary Free Text/Dictation Pt still on pressor support, family at bedside holding his hands. Seen by pulm and ID teams today. Exam/Review of Systems Vital Signs Vitals Vital Signs Date Time Temp Pulse Resp B/P Pulse Ox O2 Delivery O2 Flow Rate FiO2 08/29/16 13:30 111 24 106/56 95 Mechanical Ventilator 08/29/16 13:30 50 08/29/16 12:00 98.4 Intake and Output 08/28/16 08/28/16 08/29/16 15:00 23:00 07:00 Intake Total 411.25 ml 225 ml 5 ml Output Total 880 ml 795 ml 1100 ml Balance -468.75 ml -570 ml -1095 ml Exam Gen: lying in bed, lethargic HEENT: PERRL/EOMI Neck: Trach c/d/i. no pallor. Positive thrush CV: Reg RR Res: Dimin bs bilat; port - no drainage GI: Bs + nt nd, no r/r/g. PEG c/d/i Ext- hypotonia. some edema. Wound dressed. Results Result Diagram: 08/29/16 0600 08/29/16 0600 Results 24 hrs Laboratory Tests Test 08/28/16 18:45 08/28/16 23:34 08/29/16 05:53 08/29/16 06:00 Urine Color LT. YELLOW Urine Clarity CLOUDY H Urine pH 7.0 Urine Specific [place] 1.015 Urine Ketones NEGATIVE Urine Nitrite NEGATIVE Urine Bilirubin NEGATIVE Urine Urobilinogen 0.2 E.U./dL Urine Leukocyte Esterase NEGATIVE Urine Microscopic RBC 2-5 Urine Microscopic WBC 5-10 Urine Squamous Epithelial Cells FEW Urine Bacteria MANY Urine Coarse Granular Casts MANY Urine Hemoglobin TRACE Urine Glucose NEGATIVE Urine Total Protein 1+ H Bedside Glucose 101 104 White Blood Count 39.3 #H Red Blood Count 2.88 L Hemoglobin 7.7 L Hematocrit 26.2 L Mean Corpuscular Volume 91.0 Mean Corpuscular Hemoglobin 26.7 L Mean Corpuscular Hemoglobin Concent 29.4 L Red Cell Distribution Width 17.8 H Platelet Count 445 H Mean Platelet Volume 9.7 Neutrophils % 79.0 H Band Neutrophils % 12.0 H Lymphocytes % 2.0 L Monocytes % 2.0 Eosinophils % 3.0 Metamyelocytes % 2.0 H Neutrophils # 31.0 H Lymphocytes # 0.8 Monocytes # 0.8 Eosinophils # 1.2 H Metamyelocytes # 0.8 Differential Comment MANUAL DIFF Sodium Level 146 H Potassium Level 4.8 Chloride Level 112 H Carbon Dioxide Level 28 Anion Gap 11 Blood Urea Nitrogen 38 H Creatinine 0.65 Glucose Level 107 Lactic Acid Level 0.7 Calcium Level 12.1 H Test 08/29/16 07:00 08/29/16 12:36 08/29/16 13:23 Blood Gas Specimen Source Blood arterial Arterial Blood Date Drawn 08/29/2016 7:10:17 AM Arterial Blood pH (Temp corrected) 7.363 Arterial Blood pCO2 (Temp correct) 40.7 Arterial Blood pO2 (Temp corrected) 101.3 H Arterial Blood HCO3 22.6 Arterial Blood Base Excess -2.6 Arterial Blood Oxygen Saturation 97.0 [place] Test ACCEPTAB Arterial Blood Gas Puncture Site Right Radial Arterial Blood Carboxyhemoglobin 0.3 Arterial Blood Methemoglobin 0.4 Blood Gas A-a O2 Differential 354.1 H Oxyhemoglobin Percent 96.3 Total Hemoglobin 8.7 L Blood Gas Temperature 37.0 Blood Gas Respiration Rate 24.0 Blood Gas Actual Respiration Rate 24 Blood Gas Modality VENT - AC FiO2 70.0 Blood Gas Tidal Volume 500.0 Blood Gas Low PEEP Setting 5.0 Blood Gas Notified Whom JLD Blood Gas Notified Time 08/29/2016 8:07:56 AM Bedside Glucose 97 Lactic Acid Level 0.8 Medications Medications Current Medications Ondansetron HCl (Zofran Inj) 4 mg Q6H PRN IV NAUSEA AND/OR VOMITING Last administered on 08/15/16 05:11; Admin Dose 4 MG; Start 07/31/16 at 15:00 Morphine Sulfate (morphine) 2 mg Q4H PRN IV SEVERE PAIN LEVEL 7-10 Last administered on 08/29/16 12:30; Admin Dose 2 MG; Start 07/31/16 at 15:00 Magnesium Hydroxide (Milk Of Mag) 30 ml DAILY PRN PO CONSTIPATION; Start at 15:00 Sodium Biphosphate/ Sodium Phosphate (Fleet Enema) 133 ml DAILY PRN [place] CONSTIPATION; Start 07/31/16 at 15:00 Hydralazine HCl (Apresoline) 10 mg Q6H PRN IV ELEVATED BLOOD PRESSURE; Start at 15:00 Nitroglycerin (Nitroglycerin (Sl Tab) 0.4 Mg) 1 tab Q5M PRN SL ANGINA; Start at 15:00 Miscellaneous Information 1 ea NOTE XX ; Start 07/31/16 at 16:30 Glucose (Glutose) 15 gm Q15M PRN PO DECREASED GLUCOSE; Start 07/31/16 at 16:30 Glucose (Glutose) 22.5 gm Q15M PRN PO DECREASED GLUCOSE; Start 07/31/16 at 16: 30 Dextrose (D50w Syringe) 25 ml Q15M PRN IV DECREASED GLUCOSE; Start 07/31/16 at 16:30 Dextrose (D50w Syringe) 50 ml Q15M PRN IV DECREASED GLUCOSE; Start 07/31/16 at 16:30 Glucagon (Glucagen) 1 mg Q15M PRN IM DECREASED GLUCOSE; Start 07/31/16 at 16:30 Glucose (Glutose) 15 gm Q15M PRN BUCCAL DECREASED GLUCOSE; Start 07/31/16 at 16 :30 Sodium Hypochlorite (Dakin'S (1/4 Strength)) 1 applic BID IRR Last administered on 08/29/16 09:10; Admin Dose 1 APPLIC; Start 08/01/16 at 21:00 Acetaminophen/ Hydrocodone Bitart ([place] (5/325)) 1 tab Q4H PRN PEG MODERATE PAIN LEVEL 4-6 Last administered on 08/26/16 22:23; Admin Dose 1 TAB; Start 08/02/16 at 00:00 Lorazepam (Ativan) 0.5 mg Q4H PRN IV ANXIETY Last administered on 08/26/16 18: 05; Admin Dose 0.5 MG; Start 08/02/16 at 00:00 Zolpidem Tartrate (Ambien) 10 mg HS PRN PEG INSOMNIA Last administered on 22:53; Admin Dose 10 MG; Start 08/02/16 at 03:30 Ibuprofen (Motrin) 600 mg Q6H PRN PO PAIN OR TEMP ABOVE 38C Last administered on 08/11/16 21:29; Admin Dose 600 MG; Start 08/02/16 at 15:00 Zinc Sulfate (Zinc Sulfate) 220 mg DAILY GTB Last administered on 08/29/16 09: 09; Admin Dose 220 MG; Start 08/03/16 at 11:30 Multivitamins Therapeutic (Theragran) 1 tab DAILY PO Last administered on 09:10; Admin Dose 1 TAB; Start 08/03/16 at 11:30 Ascorbic Acid (Vitamin C) 500 mg BID GTB Last administered on 08/29/16 09:08; Admin Dose 500 MG; Start 08/03/16 at 11:30 Sodium Hypochlorite (Dakin'S (Dilute 1/40%)) 1 applic BID IRR Last administered on 08/29/16 09:09; Admin Dose 1 APPLIC; Start 08/04/16 at 12:00 Levothyroxine Sodium (Synthroid) 25 mcg DAILY@06 PO Last administered on 05:50; Admin Dose 25 MCG; Start 08/11/16 at 06:00 Paroxetine HCl (Paxil) 10 mg DAILY PO Last administered on 08/29/16 09:10; Admin Dose 10 MG; Start 08/11/16 at 21:00 Insulin Aspart (Novolog Insulin Pen) NOVOLOG *MODERATE* ALGORI... Q6 SC Last administered on 08/27/16 17:19; Admin Dose 2 UNIT; Start 08/13/16 at 00:00 Lactobacillus Acidoph/Bulgaricus (Floranex) 1 tab TID GTB Last administered on 08/29/16 13:31; Admin Dose 1 TAB; Start 08/15/16 at 21:30 Metformin HCl (Glucophage) 500 mg Q12 GTB Last administered on 08/27/16 08:54 ; Admin Dose 500 MG; Start 08/15/16 at 21:30; Status Future Hold Acetaminophen (Tylenol Tab) 650 mg Q6H PRN GTB PAIN AND OR ELEVATED TEMP Last administered on 08/28/16 14:46; Admin Dose 650 MG; Start 08/15/16 at 21:30 Magnesium Oxide (Mag-Ox 400) 400 mg DAILY GTB Last administered on 08/29/16 09 :08; Admin Dose 400 MG; Start 08/20/16 at 09:00 Enoxaparin Sodium (Lovenox) 40 mg DAILY SC Last administered on 08/29/16 09:14 ; Admin Dose 40 MG; Start 08/22/16 at 09:00 Famotidine (Pepcid) 20 mg DAILY GTB Last administered on 08/29/16 09:08; Admin Dose 20 MG; Start 08/22/16 at 09:00 Potassium Chloride (Potassium Chloride Pwd/Soln) 40 meq BID GTB Last administered on 08/28/16 22:05; Admin Dose 40 MEQ; Start 08/23/16 at 21:00 Nystatin (Nystatin Susp) 5 ml QID PO Last administered on 08/29/16 13:31; Admin Dose 5 ML; Start 08/25/16 at 17:00 Hydromorphone HCl 1 mg 1 mg Q4H PRN IV PAIN Last administered on 08/27/16 21: 59; Admin Dose 1 MG; Start 08/27/16 at 21:00 Sodium Chloride 1,000 ml @ 75 mls/hr [id number] IV Last administered on 22:06; Admin Dose 75 MLS/HR; Start 08/27/16 at 21:00 Norepinephrine/ Dextrose (Levophed/D5W) 500 ml @ 1.87 mls/hr TITRATE IV Last administered on 08/28/16 10:46; Admin Dose 3.75 MLS/HR; Start 08/28/16 at 09:00 Midodrine (Proamatine) 10 mg TID@09,13,17 PO Last administered on 08/29/16 13: 31; Admin Dose 10 MG; Start 08/28/16 at 10:24 Metronidazole (Flagyl) 500 mg Q8 PO Last administered on 08/29/16 13:31; Admin Dose 500 MG; Start 08/29/16 at 14:00 DARON FARRELL Aug 29, 2016 14:28
--- NOTE | 2016-08-29 15:52 | CONS ---
Date/Time of Note Date/Time of Note DATE: 08/29/16 TIME: 15:50 Assessment/Plan Assessment/Plan Additional Assessment/Plan Septic shock Acute decompensated systolic congestive heart failure Sinus tachycardia C2 fracture and quadriplegic Respiratory failure Cardiomyopathy with ejection fraction 50% via echo on previous admission Decubiti Hypotension -Blood pressure improving, antibiotics as per our infectious disease colleagues. No new cardiac orders at the current time Consultation Date/Type/Reason Admit Date/Time Jul 31, 2016 at 14:20 Type of Consultation: cv 24 HR Interval Summary Free Text/Dictation Patient with improvement in blood pressure. Patient feels slightly better, denies shortness of breath Exam/Review of Systems Vital Signs Vitals Vital Signs Date Time Temp Pulse Resp B/P Pulse Ox O2 Delivery O2 Flow Rate FiO2 08/29/16 15:15 104 24 92 70 08/29/16 13:30 106/56 Mechanical Ventilator 08/29/16 12:00 98.4 Intake and Output 08/28/16 08/28/16 08/29/16 15:00 23:00 07:00 Intake Total 411.25 ml 225 ml 5 ml Output Total 880 ml 795 ml 1100 ml Balance -468.75 ml -570 ml -1095 ml Exam Awake, appears fatigued, no apparent distress Neck: other (Tracheostomy) Respiratory: other (Coarse breath sounds bilaterally with scattered rhonchi, no wheezing) Cardiovascular: other (S1-S2 heard), regular rate and rhythm Gastrointestinal: bowel sounds, non-tender, other (No grimacing with palpation) , soft Extremities: edema, other (No cyanosis) Results Result Diagram: 08/29/16 0600 08/29/16 0600 Results 24 hrs Laboratory Tests Test 08/28/16 18:45 08/28/16 23:34 08/29/16 05:53 08/29/16 06:00 Urine Color LT. YELLOW Urine Clarity CLOUDY H Urine pH 7.0 Urine Specific [place] 1.015 Urine Ketones NEGATIVE Urine Nitrite NEGATIVE Urine Bilirubin NEGATIVE Urine Urobilinogen 0.2 E.U./dL Urine Leukocyte Esterase NEGATIVE Urine Microscopic RBC 2-5 Urine Microscopic WBC 5-10 Urine Squamous Epithelial Cells FEW Urine Bacteria MANY Urine Coarse Granular Casts MANY Urine Hemoglobin TRACE Urine Glucose NEGATIVE Urine Total Protein 1+ H Bedside Glucose 101 104 White Blood Count 39.3 #H Red Blood Count 2.88 L Hemoglobin 7.7 L Hematocrit 26.2 L Mean Corpuscular Volume 91.0 Mean Corpuscular Hemoglobin 26.7 L Mean Corpuscular Hemoglobin Concent 29.4 L Red Cell Distribution Width 17.8 H Platelet Count 445 H Mean Platelet Volume 9.7 Neutrophils % 79.0 H Band Neutrophils % 12.0 H Lymphocytes % 2.0 L Monocytes % 2.0 Eosinophils % 3.0 Metamyelocytes % 2.0 H Neutrophils # 31.0 H Lymphocytes # 0.8 Monocytes # 0.8 Eosinophils # 1.2 H Metamyelocytes # 0.8 Differential Comment MANUAL DIFF Sodium Level 146 H Potassium Level 4.8 Chloride Level 112 H Carbon Dioxide Level 28 Anion Gap 11 Blood Urea Nitrogen 38 H Creatinine 0.65 Glucose Level 107 Lactic Acid Level 0.7 Calcium Level 12.1 H Test 08/29/16 07:00 08/29/16 12:36 08/29/16 13:23 Blood Gas Specimen Source Blood arterial Arterial Blood Date Drawn 08/29/2016 7:10:17 AM Arterial Blood pH (Temp corrected) 7.363 Arterial Blood pCO2 (Temp correct) 40.7 Arterial Blood pO2 (Temp corrected) 101.3 H Arterial Blood HCO3 22.6 Arterial Blood Base Excess -2.6 Arterial Blood Oxygen Saturation 97.0 Colton Test ACCEPTAB Arterial Blood Gas Puncture Site Right Radial Arterial Blood Carboxyhemoglobin 0.3 Arterial Blood Methemoglobin 0.4 Blood Gas A-a O2 Differential 354.1 H Oxyhemoglobin Percent 96.3 Total Hemoglobin 8.7 L Blood Gas Temperature 37.0 Blood Gas Respiration Rate 24.0 Blood Gas Actual Respiration Rate 24 Blood Gas Modality VENT - AC FiO2 70.0 Blood Gas Tidal Volume 500.0 Blood Gas Low PEEP Setting 5.0 Blood Gas Notified Whom JLD Blood Gas Notified Time 08/29/2016 8:07:56 AM Bedside Glucose 97 Lactic Acid Level 0.8 Medications Medications Current Medications Ondansetron HCl (Zofran Inj) 4 mg Q6H PRN IV NAUSEA AND/OR VOMITING Last administered on 08/15/16 05:11; Admin Dose 4 MG; Start 07/31/16 at 15:00 Morphine Sulfate (morphine) 2 mg Q4H PRN IV SEVERE PAIN LEVEL 7-10 Last administered on 08/29/16 12:30; Admin Dose 2 MG; Start 07/31/16 at 15:00 Magnesium Hydroxide (Milk Of Mag) 30 ml DAILY PRN PO CONSTIPATION; Start at 15:00 Sodium Biphosphate/ Sodium Phosphate (Fleet Enema) 133 ml DAILY PRN [place] CONSTIPATION; Start 07/31/16 at 15:00 Hydralazine HCl (Apresoline) 10 mg Q6H PRN IV ELEVATED BLOOD PRESSURE; Start at 15:00 Nitroglycerin (Nitroglycerin (Sl Tab) 0.4 Mg) 1 tab Q5M PRN SL ANGINA; Start at 15:00 Miscellaneous Information 1 ea NOTE XX ; Start 07/31/16 at 16:30 Glucose (Glutose) 15 gm Q15M PRN PO DECREASED GLUCOSE; Start 07/31/16 at 16:30 Glucose (Glutose) 22.5 gm Q15M PRN PO DECREASED GLUCOSE; Start 07/31/16 at 16: 30 Dextrose (D50w Syringe) 25 ml Q15M PRN IV DECREASED GLUCOSE; Start 07/31/16 at 16:30 Dextrose (D50w Syringe) 50 ml Q15M PRN IV DECREASED GLUCOSE; Start 07/31/16 at 16:30 Glucagon (Glucagen) 1 mg Q15M PRN IM DECREASED GLUCOSE; Start 07/31/16 at 16:30 Glucose (Glutose) 15 gm Q15M PRN BUCCAL DECREASED GLUCOSE; Start 07/31/16 at 16 :30 Sodium Hypochlorite (Dakin'S (1/4 Strength)) 1 applic BID IRR Last administered on 08/29/16 09:10; Admin Dose 1 APPLIC; Start 08/01/16 at 21:00 Acetaminophen/ Hydrocodone Bitart (Slater (5/325)) 1 tab Q4H PRN PEG MODERATE PAIN LEVEL 4-6 Last administered on 08/26/16 22:23; Admin Dose 1 TAB; Start 08/02/16 at 00:00 Lorazepam (Ativan) 0.5 mg Q4H PRN IV ANXIETY Last administered on 08/26/16 18: 05; Admin Dose 0.5 MG; Start 08/02/16 at 00:00 Zolpidem Tartrate (Ambien) 10 mg HS PRN PEG INSOMNIA Last administered on 22:53; Admin Dose 10 MG; Start 08/02/16 at 03:30 Ibuprofen (Motrin) 600 mg Q6H PRN PO PAIN OR TEMP ABOVE 38C Last administered on 08/11/16 21:29; Admin Dose 600 MG; Start 08/02/16 at 15:00 Zinc Sulfate (Zinc Sulfate) 220 mg DAILY GTB Last administered on 08/29/16 09: 09; Admin Dose 220 MG; Start 08/03/16 at 11:30 Multivitamins Therapeutic (Theragran) 1 tab DAILY PO Last administered on 09:10; Admin Dose 1 TAB; Start 08/03/16 at 11:30 Ascorbic Acid (Vitamin C) 500 mg BID GTB Last administered on 08/29/16 09:08; Admin Dose 500 MG; Start 08/03/16 at 11:30 Sodium Hypochlorite (Dakin'S (Dilute 1/40%)) 1 applic BID IRR Last administered on 08/29/16 09:09; Admin Dose 1 APPLIC; Start 08/04/16 at 12:00 Levothyroxine Sodium (Synthroid) 25 mcg DAILY@06 PO Last administered on 05:50; Admin Dose 25 MCG; Start 08/11/16 at 06:00 Paroxetine HCl (Paxil) 10 mg DAILY PO Last administered on 08/29/16 09:10; Admin Dose 10 MG; Start 08/11/16 at 21:00 Insulin Aspart (Novolog Insulin Pen) NOVOLOG *MODERATE* ALGORI... Q6 SC Last administered on 08/27/16 17:19; Admin Dose 2 UNIT; Start 08/13/16 at 00:00 Lactobacillus Acidoph/Bulgaricus (Floranex) 1 tab TID GTB Last administered on 08/29/16 13:31; Admin Dose 1 TAB; Start 08/15/16 at 21:30 Metformin HCl (Glucophage) 500 mg Q12 GTB Last administered on 08/27/16 08:54 ; Admin Dose 500 MG; Start 08/15/16 at 21:30; Status Future Hold Acetaminophen (Tylenol Tab) 650 mg Q6H PRN GTB PAIN AND OR ELEVATED TEMP Last administered on 08/28/16 14:46; Admin Dose 650 MG; Start 08/15/16 at 21:30 Magnesium Oxide (Mag-Ox 400) 400 mg DAILY GTB Last administered on 08/29/16 09 :08; Admin Dose 400 MG; Start 08/20/16 at 09:00 Enoxaparin Sodium (Lovenox) 40 mg DAILY SC Last administered on 08/29/16 09:14 ; Admin Dose 40 MG; Start 08/22/16 at 09:00 Famotidine (Pepcid) 20 mg DAILY GTB Last administered on 08/29/16 09:08; Admin Dose 20 MG; Start 08/22/16 at 09:00 Potassium Chloride (Potassium Chloride Pwd/Soln) 40 meq BID GTB Last administered on 08/28/16 22:05; Admin Dose 40 MEQ; Start 08/23/16 at 21:00 Nystatin (Nystatin Susp) 5 ml QID PO Last administered on 08/29/16 13:31; Admin Dose 5 ML; Start 08/25/16 at 17:00 Hydromorphone HCl 1 mg 1 mg Q4H PRN IV PAIN Last administered on 08/27/16 21: 59; Admin Dose 1 MG; Start 08/27/16 at 21:00 Sodium Chloride 1,000 ml @ 75 mls/hr [id number] IV Last administered on 22:06; Admin Dose 75 MLS/HR; Start 08/27/16 at 21:00 Norepinephrine/ Dextrose (Levophed/D5W) 500 ml @ 1.87 mls/hr TITRATE IV Last administered on 08/28/16 10:46; Admin Dose 3.75 MLS/HR; Start 08/28/16 at 09:00 Midodrine (Proamatine) 10 mg TID@,13,17 PO Last administered on 08/29/16 13: 31; Admin Dose 10 MG; Start 08/28/16 at 10:24 Metronidazole (Flagyl) 500 mg Q8 PO Last administered on 08/29/16 13:31; Admin Dose 500 MG; Start 08/29/16 at 14:00 Kb Barrett DO Aug 29, 2016 15:52
[2016-08-29] MEDS: SOD CHLORIDE 0.9% 1,000 ML IV SCH (15:54)
--- NOTE | 2016-08-29 17:28 | PN ---
DATE: SUBJECTIVE: Mr. Alfaro looks clinically worse today compared to yesterday. His brother is at the beds ran, sister and [id number]. His son is not available. OBJECTIVE: VITAL SIGNS: Blood pressure 106/56, pulse of 111 and regular, respirations of 24, saturation 95% on 70% FIO2. CHEST: Inspiratory and expiratory rhonchi and wheezing throughout both lung singh. CORONARY: S1, S2. Rapid rate, regular rhythm. NEUROLOGICAL: He does not follow any simple verbal commands. He does not mouth yes or no like he d id yesterday. He looks ashen. I have reviewed laboratory tests. Pertinent information from a palliative care standpoint is I will be meeting with family members tomorrow and propose a CHEMICAL CODE rather than CPR in the event th at he continues to deteriorate. Brother can make that substituted decision on behalf of Mr. Alfaro. Dictated By: MARYSOL BRADFORD MD, LP/SCOTTIE Conf#: [id number] DID#: [id number]
[2016-08-30] VITALS (61 sets, daily range): BP systolic 84–131; BP diastolic 52–79; PULSE 88–110; RESP 19–25
[2016-08-30] MEDS: morphine 2 MG INJ IV PRN (04:04)
[2016-08-30] MEDS: SOD CHLORIDE 0.9% 1,000 ML IV SCH ×2 (04:59→14:59)
[2016-08-30] MEDS: LEVOTHYROXINE 25 MCG TAB PO SCH (05:32)
[2016-08-30] MEDS: metroNIDAZOLE 500 MG TAB PO SCH ×3 (05:32→21:04)
[2016-08-30 05:35] LABS: ADD SCAN DIFF NO
[2016-08-30 05:53] LABS: ABNORMAL IP MESSAGE 1; HEMATOCRIT 26.8 % (42.0-52.0); HEMOGLOBIN 7.6 g/dl (14.0-18.0); MEAN CORPUSCULAR HEMOGLOBIN 26.1 pg (29.0-33.0); MEAN CORPUSCULAR HGB CONC 28.4 g/dl (32.0-37.0); MEAN CORPUSCULAR VOLUME 92.1 fl (82.0-101.0); MEAN PLATELET VOLUME 9.7 fl (7.4-10.4); PLATELET COUNT 449 10^3/UL (140-415); RED BLOOD COUNT 2.91 10^6/ul (4.70-6.10); WHITE BLOOD COUNT 31.3 10^3/ul (4.8-10.8)
[2016-08-30] MEDS: INSULIN ASPART [NOVOLOG] 3 ML PEN SC SCH ×3 (06:00→17:54)
[2016-08-30 06:03] LABS: POTASSIUM 3.5 mmol/L (3.5-5.1)
[2016-08-30 06:06] LABS: CREATININE 0.62 mg/dl (0.61-1.24)
[2016-08-30 06:07] LABS: CALCIUM 11.4 mg/dl (8.4-10.2)
[2016-08-30] MEDS: ALBUTEROL HFA 8 GM INHALER INH SCH ×2 (07:52→14:42)
[2016-08-30 08:04] LABS: EOSINOPHILS # 0.3 10^3/ul (0.0-0.5); LYMPHOCYTES # 1.3 10^3/ul (0.8-2.9); MONOCYTE # 0.6 10^3/ul (0.3-0.9); MYELOCYTES # 0.6; NEUTROPHIL # 25.7 10^3/ul (1.6-7.5)
[2016-08-30] MEDS: MAGNESIUM OXIDE 400 MG TAB GTB SCH (08:28)
[2016-08-30] MEDS: FAMOTIDINE 20 MG TAB GTB SCH (08:28)
[2016-08-30] MEDS: LACTOBACILLUS CHEW TAB GTB SCH ×3 (08:28→21:05)
[2016-08-30] MEDS: ZINC SULFATE 220 MG CAP GTB SCH (08:29)
[2016-08-30] MEDS: POTASSIUM CHLORIDE 20 MEQ POWDER FOR ORAL SOLN GTB SCH ×2 (08:29→21:05)
[2016-08-30] MEDS: ASCORBIC ACID 500 MG TAB GTB SCH ×2 (08:29→21:05)
[2016-08-30] MEDS: NYSTATIN SUSP 5 ML CUP PO SCH ×4 (08:30→21:05)
[2016-08-30] MEDS: PAROXETINE 10 MG TAB PO SCH (08:30)
[2016-08-30] MEDS: SODIUM HYPOCHLORITE 1/40% 1L IRRIG IRR SCH (08:30)
[2016-08-30] MEDS: SODIUM HYPOCHLORITE 0.125% 473 ML BTL IRR SCH (08:30)
[2016-08-30] MEDS: MULTIVITAMINS THERAPEUTIC TAB PO SCH (08:31)
[2016-08-30] MEDS: MIDODRINE 5 MG TAB PO SCH ×3 (08:31→17:54)
[2016-08-30] MEDS: ENOXAPARIN 40 MG/0.4 ML SYG SC SCH (08:32)
--- NOTE | 2016-08-30 09:05 | PN ---
DATE: 08/30/2016 Mr. Alfaro looks clinically better today, not as dyspneic as he did yesterday, not as ashen-appearing. I have a family conference scheduled today at 9:30 with the patient's entire family. Will address his clinical condition and possible substituted decisions in the event that he has a turn and has an other catastrophic event. OBJECTIVE: VITAL SIGNS: Blood pressure 99/53, pulse 107, respirations of 24, temperature 98.6 degrees, 100% sa turation on 50% FIO2. CHEST: Shows bilateral inspiratory and expiratory wheezing and rhonchi. COR: S1, S2, without S3, S4, murmur, gallop or rub. Normal rate, normal rhythm. NEUROLOGICAL EXAMINATION: He does respond to verbal commands. He appropriately answers yes and no when I stimulate him. ASSESSMENT AND PLAN: 1. Respiratory failure. 2. C2 quadriplegia. 3. Hospital-acquired pneumonia. 4. Sacral decubiti and occipital decubiti. PLAN: Family conference today. Dictated By: MARYSOL BRADFORD MD, LP/SCOTTIE Conf#: [id number] DID#: [id number]
--- NOTE | 2016-08-30 09:21 | CONS ---
Date/Time of Note Date/Time of Note DATE: 08/30/16 TIME: 09:19 Assessment/Plan Assessment/Plan Additional Assessment/Plan Ventilator settings; AC of 24, tidal volume 500, PEEP of 5, 50% FiO2. Assessment and recommendations; next 1. Patient admitted for severe pneumonia with persistent infiltrative changes on chest x-ray however there has been some interval improvement. 2. Severe sacral as well as bilateral hip decubitus ulcers. 3. 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 4. Anemia. Status post multiple packed RBC transfusion. 5. Systolic dysfunction. 6. Hypothyroidism. Continue current treatment. Obtain a follow-up chest x-ray tomorrow morning. Continue current antibiotics and other supportive measures. Overall prognosis does remain very poor. Consultation Date/Type/Reason Admit Date/Time Jul 31, 2016 at 14:20 Initial Consult Date 08/02/16 Type of Consultation: Pulmonary/critical care 24 HR Interval Summary Free Text/Dictation Patient condition remains stable. He is awake and alert. Has remained hemodynamically stable. No untoward events reported. General exam; young male, on ventilator via tracheostomy, awake and alert. Currently in no distress. Exam/Review of Systems Vital Signs Vitals Vital Signs Date Time Temp Pulse Resp B/P Pulse Ox O2 Delivery O2 Flow Rate FiO2 08/30/16 08:00 104 08/30/16 05:20 24 100 50 08/30/16 04:00 98.6 99/53 08/29/16 20:00 Mechanical Ventilator Intake and Output 08/29/16 08/29/16 08/30/16 15:00 23:00 07:00 Intake Total 1388 ml 763.4 ml 464.5 ml Output Total 825 ml 600 ml 475 ml Balance 563 ml 163.4 ml -10.5 ml Exam HEENT examination; C-spine soft collar is in place. Tracheostomy in place. Pupils are midsize reactive to light bilaterally. Patient has good dentition. Pharynx is clear. No neck masses. Chest examination; lateral crackles. S1-S2 audible, no murmurs. Regular rhythm. Abdomen examination; soft, G-tube in place. Bowel sounds audible. Abdomen is nondistended. Back examination; there is a dressing applied over the sacrum and bilateral hips. Extremity examination; no peripheral edema. [employer] examination; patient is stable quadriplegia. Results Result Diagram: 08/30/16 0520 08/30/16 0520 Results 24 hrs Laboratory Tests Test 08/29/16 12:36 08/29/16 13:23 08/29/16 17:24 08/29/16 23:51 Bedside Glucose 97 98 87 Lactic Acid Level 0.8 Test 08/30/16 05:20 08/30/16 06:40 White Blood Count 31.3 #H Red Blood Count 2.91 L Hemoglobin 7.6 L Hematocrit 26.8 L Mean Corpuscular Volume 92.1 Mean Corpuscular Hemoglobin 26.1 L Mean Corpuscular Hemoglobin Concent 28.4 L Red Cell Distribution Width 18.0 H Platelet Count 449 H Mean Platelet Volume 9.7 Neutrophils % 82.0 H Band Neutrophils % 9.0 H Lymphocytes % 4.0 L Monocytes % 2.0 Eosinophils % 1.0 Myelocytes % 2.0 H Neutrophils # 25.7 H Lymphocytes # 1.3 Monocytes # 0.6 Eosinophils # 0.3 Myelocytes # 0.6 Sodium Level 148 H Potassium Level 3.5 Chloride Level 112 H Carbon Dioxide Level 25 Anion Gap 15 Blood Urea Nitrogen 30 H Creatinine 0.62 Glucose Level 97 Calcium Level 11.4 H Bedside Glucose 92 Medications Medications Current Medications Ondansetron HCl (Zofran Inj) 4 mg Q6H PRN IV NAUSEA AND/OR VOMITING Last administered on 08/15/16 05:11; Admin Dose 4 MG; Start 07/31/16 at 15:00 Morphine Sulfate (morphine) 2 mg Q4H PRN IV SEVERE PAIN LEVEL 7-10 Last administered on 08/30/16 04:04; Admin Dose 2 MG; Start 07/31/16 at 15:00 Magnesium Hydroxide (Milk Of Mag) 30 ml DAILY PRN PO CONSTIPATION; Start at 15:00 Sodium Biphosphate/ Sodium Phosphate (Fleet Enema) 133 ml DAILY PRN [place] CONSTIPATION; Start 07/31/16 at 15:00 Hydralazine HCl (Apresoline) 10 mg Q6H PRN IV ELEVATED BLOOD PRESSURE; Start at 15:00 Nitroglycerin (Nitroglycerin (Sl Tab) 0.4 Mg) 1 tab Q5M PRN SL ANGINA; Start at 15:00 Miscellaneous Information 1 ea NOTE XX ; Start 07/31/16 at 16:30 Glucose (Glutose) 15 gm Q15M PRN PO DECREASED GLUCOSE; Start 07/31/16 at 16:30 Glucose (Glutose) 22.5 gm Q15M PRN PO DECREASED GLUCOSE; Start 07/31/16 at 16: 30 Dextrose (D50w Syringe) 25 ml Q15M PRN IV DECREASED GLUCOSE; Start 07/31/16 at 16:30 Dextrose (D50w Syringe) 50 ml Q15M PRN IV DECREASED GLUCOSE; Start 07/31/16 at 16:30 Glucagon (Glucagen) 1 mg Q15M PRN IM DECREASED GLUCOSE; Start 07/31/16 at 16:30 Glucose (Glutose) 15 gm Q15M PRN BUCCAL DECREASED GLUCOSE; Start 07/31/16 at 16 :30 Sodium Hypochlorite (Dakin'S (1/4 Strength)) 1 applic BID IRR Last administered on 08/30/16 08:30; Admin Dose 1 APPLIC; Start 08/01/16 at 21:00 Zinc Sulfate (Zinc Sulfate) 220 mg DAILY GTB Last administered on 08/30/16 08: 29; Admin Dose 220 MG; Start 08/03/16 at 11:30 Multivitamins Therapeutic (Theragran) 1 tab DAILY PO Last administered on 08:31; Admin Dose 1 TAB; Start 08/03/16 at 11:30 Ascorbic Acid (Vitamin C) 500 mg BID GTB Last administered on 08/30/16 08:29; Admin Dose 500 MG; Start 08/03/16 at 11:30 Sodium Hypochlorite (Dakin'S (Dilute 1/40%)) 1 applic BID IRR Last administered on 08/30/16 08:30; Admin Dose 1 APPLIC; Start 08/04/16 at 12:00 Levothyroxine Sodium (Synthroid) 25 mcg DAILY@06 PO Last administered on 05:32; Admin Dose 25 MCG; Start 08/11/16 at 06:00 Paroxetine HCl (Paxil) 10 mg DAILY PO Last administered on 08/30/16 08:30; Admin Dose 10 MG; Start 08/11/16 at 21:00 Insulin Aspart (Novolog Insulin Pen) NOVOLOG *MODERATE* ALGORI... Q6 SC Last administered on 08/27/16 17:19; Admin Dose 2 UNIT; Start 08/13/16 at 00:00 Lactobacillus Acidoph/Bulgaricus (Floranex) 1 tab TID GTB Last administered on 08/30/16 08:28; Admin Dose 1 TAB; Start 08/15/16 at 21:30 Metformin HCl (Glucophage) 500 mg Q12 GTB Last administered on 08/27/16 08:54 ; Admin Dose 500 MG; Start 08/15/16 at 21:30; Status Future Hold Acetaminophen (Tylenol Tab) 650 mg Q6H PRN GTB PAIN AND OR ELEVATED TEMP Last administered on 08/28/16 14:46; Admin Dose 650 MG; Start 08/15/16 at 21:30 Magnesium Oxide (Mag-Ox 400) 400 mg DAILY GTB Last administered on 08/30/16 08 :28; Admin Dose 400 MG; Start 08/20/16 at 09:00 Enoxaparin Sodium (Lovenox) 40 mg DAILY SC Last administered on 08/30/16 08:32 ; Admin Dose 40 MG; Start 08/22/16 at 09:00 Famotidine (Pepcid) 20 mg DAILY GTB Last administered on 08/30/16 08:28; Admin Dose 20 MG; Start 08/22/16 at 09:00 Potassium Chloride (Potassium Chloride Pwd/Soln) 40 meq BID GTB Last administered on 08/30/16 08:29; Admin Dose 40 MEQ; Start 08/23/16 at 21:00 Nystatin 5 ml 5 ml QID PO Last administered on 08/30/16 08:30; Admin Dose 5 ML ; Start 08/25/16 at 17:00 Sodium Chloride 1,000 ml @ 75 mls/hr [id number] IV Last administered on 04:59; Admin Dose 75 MLS/HR; Start 08/27/16 at 21:00 Norepinephrine/ Dextrose (Levophed/D5W) 500 ml @ 1.87 mls/hr TITRATE IV Last administered on 08/28/16 10:46; Admin Dose 3.75 MLS/HR; Start 08/28/16 at 09:00 Midodrine (Proamatine) 10 mg TID@,,17 PO Last administered on 08/30/16 08: 31; Admin Dose 10 MG; Start 08/28/16 at 10:24 Metronidazole (Flagyl) 500 mg Q8 PO Last administered on 08/30/16 05:32; Admin Dose 500 MG; Start 08/29/16 at 14:00 Fentanyl (Sublimaze) 25 mcg Q3H PRN IV PAIN; Start 08/29/16 at 17:00 ALISSON ARRIOLA Aug 30, 2016 09:21
[2016-08-30] MEDS ORDERED: VANCOMYCIN IV PER PHARMACY XX SCH (11:30)
--- NOTE | 2016-08-30 11:48 | PN ---
DATE: 08/30/2016 SUBJECTIVE: No events overnight. The patient is awake, lying comfortably in bed, still on low dose of pressors, afebrile. VITAL SIGNS: Temperature 98.6, pulse 102, respirations 24, blood pressure 99/53, saturation 98 on 5 0%. MICROBIOLOGY: Blood and urine cultures remain negative. Nares swab came back negative. INDWELLINGS: Trach, PEG, Oliveira, left upper chest Port-A-Cath. PHYSICAL EXAMINATION: GENERAL: This is a chronically ill-appearing, wasted, middle-aged man who is lying comfortably in b ed. HEENT: Head atraumatic, normocephalic. Sclerae anicteric. Buccal mucosa dry. NECK: Supple. CHEST: Rise symmetrical. Breath sounds diminished to bases. HEART: S1, S2. ABDOMEN: Soft. Bowel tones present. EXTREMITIES: Bilateral edema. ASSESSMENT: 1. Sepsis with shock. 2. Healthcare-associated pneumonia with radiographic worsening as per discussion with Dr. Perera. 3. Multiple chronic wounds without evidence of osteomyelitis. 4. Quadriplegia status post C-spine injury. 5. Diabetes. 6. History of urinary tract infection. PLAN: The patient remains hemodynamically unstable, still requiring vasopressor support for blood p ressure. We will keep him on Flagyl, vancomycin and Merrem, given worsening of his chest x-ray for recurrent pneumonia. We will repeat sputum cultures. Continue suctioning, aggressive pulmonary nguyen let and tobramycin inhalation. The above was discussed with Dr. Perera, patient and [facility] at [facility]. Dictated By: LESLIE FERRARO DERMATOPATHOLOGIST for ROGE HERNANDEZ/SCOTTIE Conf#: [id number] DID#: [id number]
[2016-08-30] MEDS ORDERED: TOBRAMYCIN/0.25NS 300 MG/5 ML INHAL NEB SCH (13:00)
--- NOTE | 2016-08-30 13:35 | CONS ---
Date/Time of Note Date/Time of Note DATE: 08/30/16 TIME: 13:33 Assessment/Plan Assessment/Plan Additional Assessment/Plan Septic shock Acute decompensated systolic congestive heart failure Sinus tachycardia C2 fracture and quadriplegic Respiratory failure Cardiomyopathy with ejection fraction 50% via echo on previous admission Decubiti Hypotension -Titrate IV pressor to maintain SBP greater than 90 and/or map above 60, antibiotics as per infectious disease. Plan for family conference today with palliative care. Consultation Date/Type/Reason Admit Date/Time Jul 31, 2016 at 14:20 Type of Consultation: cv 24 HR Interval Summary Free Text/Dictation Patient seen and examined, asking for food, no apparent distress Exam/Review of Systems Vital Signs Vitals Vital Signs Date Time Temp Pulse Resp B/P Pulse Ox O2 Delivery O2 Flow Rate FiO2 08/30/16 12:00 107 08/30/16 11:20 24 96 50 08/30/16 04:00 98.6 99/53 08/29/16 20:00 Mechanical Ventilator Intake and Output 08/29/16 08/29/16 08/30/16 15:00 23:00 07:00 Intake Total 1388 ml 763.4 ml 464.5 ml Output Total 825 ml 600 ml 475 ml Balance 563 ml 163.4 ml -10.5 ml Exam Awake, no apparent distress, appears disoriented at times Neck: other (Tracheostomy) Respiratory: congested cough, crackles/rales, other (No wheezing) Cardiovascular: other (S1-S2 heard), regular rate and rhythm Gastrointestinal: bowel sounds, non-tender, other (No grimacing with palpation) , soft Extremities: edema, other (No cyanosis) Results Result Diagram: 08/30/16 0520 08/30/16 0520 Results 24 hrs Laboratory Tests Test 08/29/16 17:24 08/29/16 23:51 08/30/16 05:20 08/30/16 06:40 Bedside Glucose 98 87 92 White Blood Count 31.3 #H Red Blood Count 2.91 L Hemoglobin 7.6 L Hematocrit 26.8 L Mean Corpuscular Volume 92.1 Mean Corpuscular Hemoglobin 26.1 L Mean Corpuscular Hemoglobin Concent 28.4 L Red Cell Distribution Width 18.0 H Platelet Count 449 H Mean Platelet Volume 9.7 Neutrophils % 82.0 H Band Neutrophils % 9.0 H Lymphocytes % 4.0 L Monocytes % 2.0 Eosinophils % 1.0 Myelocytes % 2.0 H Neutrophils # 25.7 H Lymphocytes # 1.3 Monocytes # 0.6 Eosinophils # 0.3 Myelocytes # 0.6 Sodium Level 148 H Potassium Level 3.5 Chloride Level 112 H Carbon Dioxide Level 25 Anion Gap 15 Blood Urea Nitrogen 30 H Creatinine 0.62 Glucose Level 97 Calcium Level 11.4 H Test 08/30/16 11:52 Bedside Glucose 101 Medications Medications Current Medications Ondansetron HCl (Zofran Inj) 4 mg Q6H PRN IV NAUSEA AND/OR VOMITING Last administered on 08/15/16 05:11; Admin Dose 4 MG; Start 07/31/16 at 15:00 Morphine Sulfate (morphine) 2 mg Q4H PRN IV SEVERE PAIN LEVEL 7-10 Last administered on 08/30/16 04:04; Admin Dose 2 MG; Start 07/31/16 at 15:00 Magnesium Hydroxide (Milk Of Mag) 30 ml DAILY PRN PO CONSTIPATION; Start at 15:00 Sodium Biphosphate/ Sodium Phosphate (Fleet Enema) 133 ml DAILY PRN [place] CONSTIPATION; Start 07/31/16 at 15:00 Hydralazine HCl (Apresoline) 10 mg Q6H PRN IV ELEVATED BLOOD PRESSURE; Start at 15:00 Nitroglycerin (Nitroglycerin (Sl Tab) 0.4 Mg) 1 tab Q5M PRN SL ANGINA; Start at 15:00 Miscellaneous Information 1 ea NOTE XX ; Start 07/31/16 at 16:30 Glucose (Glutose) 15 gm Q15M PRN PO DECREASED GLUCOSE; Start 07/31/16 at 16:30 Glucose (Glutose) 22.5 gm Q15M PRN PO DECREASED GLUCOSE; Start 07/31/16 at 16: 30 Dextrose (D50w Syringe) 25 ml Q15M PRN IV DECREASED GLUCOSE; Start 07/31/16 at 16:30 Dextrose (D50w Syringe) 50 ml Q15M PRN IV DECREASED GLUCOSE; Start 07/31/16 at 16:30 Glucagon (Glucagen) 1 mg Q15M PRN IM DECREASED GLUCOSE; Start 07/31/16 at 16:30 Glucose (Glutose) 15 gm Q15M PRN BUCCAL DECREASED GLUCOSE; Start 07/31/16 at 16 :30 Sodium Hypochlorite (Dakin'S (1/4 Strength)) 1 applic BID IRR Last administered on 08/30/16 08:30; Admin Dose 1 APPLIC; Start 08/01/16 at 21:00 Zinc Sulfate (Zinc Sulfate) 220 mg DAILY GTB Last administered on 08/30/16 08: 29; Admin Dose 220 MG; Start 08/03/16 at 11:30 Multivitamins Therapeutic (Theragran) 1 tab DAILY PO Last administered on 08:31; Admin Dose 1 TAB; Start 08/03/16 at 11:30 Ascorbic Acid (Vitamin C) 500 mg BID GTB Last administered on 08/30/16 08:29; Admin Dose 500 MG; Start 08/03/16 at 11:30 Sodium Hypochlorite (Dakin'S (Dilute 1/40%)) 1 applic BID IRR Last administered on 08/30/16 08:30; Admin Dose 1 APPLIC; Start 08/04/16 at 12:00 Levothyroxine Sodium (Synthroid) 25 mcg DAILY@06 PO Last administered on 05:32; Admin Dose 25 MCG; Start 08/11/16 at 06:00 Paroxetine HCl (Paxil) 10 mg DAILY PO Last administered on 08/30/16 08:30; Admin Dose 10 MG; Start 08/11/16 at 21:00 Insulin Aspart (Novolog Insulin Pen) NOVOLOG *MODERATE* ALGORI... Q6 SC Last administered on 08/27/16 17:19; Admin Dose 2 UNIT; Start 08/13/16 at 00:00 Lactobacillus Acidoph/Bulgaricus (Floranex) 1 tab TID GTB Last administered on 08/30/16 13:17; Admin Dose 1 TAB; Start 08/15/16 at 21:30 Metformin HCl (Glucophage) 500 mg Q12 GTB Last administered on 08/27/16 08:54 ; Admin Dose 500 MG; Start 08/15/16 at 21:30; Status Future Hold Acetaminophen (Tylenol Tab) 650 mg Q6H PRN GTB PAIN AND OR ELEVATED TEMP Last administered on 08/28/16 14:46; Admin Dose 650 MG; Start 08/15/16 at 21:30 Magnesium Oxide (Mag-Ox 400) 400 mg DAILY GTB Last administered on 08/30/16 08 :28; Admin Dose 400 MG; Start 08/20/16 at 09:00 Enoxaparin Sodium (Lovenox) 40 mg DAILY SC Last administered on 08/30/16 08:32 ; Admin Dose 40 MG; Start 08/22/16 at 09:00 Famotidine (Pepcid) 20 mg DAILY GTB Last administered on 08/30/16 08:28; Admin Dose 20 MG; Start 08/22/16 at 09:00 Potassium Chloride (Potassium Chloride Pwd/Soln) 40 meq BID GTB Last administered on 08/30/16 08:29; Admin Dose 40 MEQ; Start 08/23/16 at 21:00 Nystatin 5 ml 5 ml QID PO Last administered on 08/30/16 13:18; Admin Dose 5 ML ; Start 08/25/16 at 17:00 Sodium Chloride 1,000 ml @ 75 mls/hr [id number] IV Last administered on 04:59; Admin Dose 75 MLS/HR; Start 08/27/16 at 21:00 Norepinephrine/ Dextrose (Levophed/D5W) 500 ml @ 1.87 mls/hr TITRATE IV Last administered on 08/28/16 10:46; Admin Dose 3.75 MLS/HR; Start 08/28/16 at 09:00 Midodrine (Proamatine) 10 mg TID@09,13,17 PO Last administered on 08/30/16 13: 17; Admin Dose 10 MG; Start 08/28/16 at 10:24 Metronidazole (Flagyl) 500 mg Q8 PO Last administered on 08/30/16 05:32; Admin Dose 500 MG; Start 08/29/16 at 14:00 Fentanyl 25 mcg 25 mcg Q3H PRN IV PAIN; Start 08/29/16 at 17:00 Meropenem 100 ml @ 200 mls/hr Q8 IVPB ; Start 08/30/16 at 14:00 Vancomycin HCl 2 gm/Sodium Chloride 500 ml @ 125 mls/hr ONCE IVPB ; Start 08/30 at 14:00; Stop 08/30/16 at 17:59 Vancomycin HCl/ Sodium Chloride (Vancocin/NS) 250 ml @ 83.333 mls/ hr Q8H IVPB ; Start 08/30/16 at 22:00 Kb Barrett DO Aug 30, 2016 13:35
[2016-08-30] MEDS ORDERED: VANCOMYCIN 2 GM in SOD CHLORIDE 0.9% 500 ML IVPB SCH (14:00)
[2016-08-30] MEDS: MEROPENEM 500 MG/100 ML (PMX) 100 ML IVPB SCH ×2 (14:59→21:05)
--- NOTE | 2016-08-30 15:09 | PN ---
Date/Time of Note Date/Time of Note DATE: 08/30/16 TIME: 15:07 Assessment/Plan VTE Prophylaxis VTE Prophylaxis Intervention: LMWH Lines/Catheters IV Catheter Type (from [facility]): portacath Urinary Cath still in place: Yes Reason Cath still needed: urinary retention Assessment/Plan Chief Complaint/Hosp Course ASSESSMENT AND PLAN: 46-year-old male sent in with fever and diaphoresis with findings of septic shock. 1) Sepsis/shock - sec to HCAP likely + decub ulcer infx's, now with shock - on pressor support. sp bronch/atb's. - continue abx, per ID, - Meropenem, Vanco, and Flagyl, wean pressor support as tolerated - f/u ID, pulm, and and palliative care rec's - f/u cx results 2) Decubitus wound/ MDR organisms. Diverting colostomy & debridement may not be feasible while on vent. quality of life will not improve post therapy. - abx as above 3) Quadraplegia; poor prognosis; palliative care eval appreciated - for now pt is full code. Pt appears to be able to make decisions, but has said he still wants his brother to make decisions on his behalf if he cannot do so. Also, palliative team met with family today as well. F/u rec's. 4) Ho C2 fracture - monitor 5) VDRF; cont vent, f/u pulm rec's 6) Ho c diff - monitor 7) Chr CHF/ systolic? - monitor 8) Past tobacco - monitor 9) Malnutrition; cont peg/feeds/free water. 10) Elevated Ca; Calcium dced. Still high. - monitor - if not improves or increases, consider endo consult? Critical care time spent with pt care today = 40 min. Problems: Subjective 24 Hr Interval Summary Free Text/Dictation Pt had fever last night. Still on pressor x 1. Palliative met with family today. Exam/Review of Systems Vital Signs Vitals Vital Signs Date Time Temp Pulse Resp B/P Pulse Ox O2 Delivery O2 Flow Rate FiO2 08/30/16 12:00 107 08/30/16 11:20 24 96 50 08/30/16 04:00 98.6 99/53 08/29/16 20:00 Mechanical Ventilator Intake and Output 08/29/16 08/29/16 08/30/16 15:00 23:00 07:00 Intake Total 1388 ml 763.4 ml 464.5 ml Output Total 825 ml 600 ml 475 ml Balance 563 ml 163.4 ml -10.5 ml Exam Gen: lying in bed, lethargic HEENT: PERRL/EOMI Neck: Trach c/d/i. no pallor. Positive thrush CV: Reg RR Res: Dimin bs bilat; port - no drainage GI: Bs + nt nd, no r/r/g. PEG c/d/i Ext- hypotonia. some edema. Wound dressed. Results Result Diagram: 08/30/1651908/30/16519 Results 24 hrs Laboratory Tests Test 08/29/16 17:24 08/29/16 23:51 08/30/16 05:20 08/30/16 06:40 Bedside Glucose 98 87 92 White Blood Count 31.3 #H Red Blood Count 2.91 L Hemoglobin 7.6 L Hematocrit 26.8 L Mean Corpuscular Volume 92.1 Mean Corpuscular Hemoglobin 26.1 L Mean Corpuscular Hemoglobin Concent 28.4 L Red Cell Distribution Width 18.0 H Platelet Count 449 H Mean Platelet Volume 9.7 Neutrophils % 82.0 H Band Neutrophils % 9.0 H Lymphocytes % 4.0 L Monocytes % 2.0 Eosinophils % 1.0 Myelocytes % 2.0 H Neutrophils # 25.7 H Lymphocytes # 1.3 Monocytes # 0.6 Eosinophils # 0.3 Myelocytes # 0.6 Sodium Level 148 H Potassium Level 3.5 Chloride Level 112 H Carbon Dioxide Level 25 Anion Gap 15 Blood Urea Nitrogen 30 H Creatinine 0.62 Glucose Level 97 Calcium Level 11.4 H Test 08/30/16 11:52 Bedside Glucose 101 Medications Medications Current Medications Ondansetron HCl (Zofran Inj) 4 mg Q6H PRN IV NAUSEA AND/OR VOMITING Last administered on 08/15/16 05:11; Admin Dose 4 MG; Start 07/31/16 at 15:00 Morphine Sulfate (morphine) 2 mg Q4H PRN IV SEVERE PAIN LEVEL 7-10 Last administered on 08/30/16 04:04; Admin Dose 2 MG; Start 07/31/16 at 15:00 Magnesium Hydroxide (Milk Of Mag) 30 ml DAILY PRN PO CONSTIPATION; Start at 15:00 Sodium Biphosphate/ Sodium Phosphate (Fleet Enema) 133 ml DAILY PRN [place] CONSTIPATION; Start 07/31/16 at 15:00 Hydralazine HCl (Apresoline) 10 mg Q6H PRN IV ELEVATED BLOOD PRESSURE; Start at 15:00 Nitroglycerin (Nitroglycerin (Sl Tab) 0.4 Mg) 1 tab Q5M PRN SL ANGINA; Start at 15:00 Miscellaneous Information 1 ea NOTE XX ; Start 07/31/16 at 16:30 Glucose (Glutose) 15 gm Q15M PRN PO DECREASED GLUCOSE; Start 07/31/16 at 16:30 Glucose (Glutose) 22.5 gm Q15M PRN PO DECREASED GLUCOSE; Start 07/31/16 at 16: 30 Dextrose (D50w Syringe) 25 ml Q15M PRN IV DECREASED GLUCOSE; Start 07/31/16 at 16:30 Dextrose (D50w Syringe) 50 ml Q15M PRN IV DECREASED GLUCOSE; Start 07/31/16 at 16:30 Glucagon (Glucagen) 1 mg Q15M PRN IM DECREASED GLUCOSE; Start 07/31/16 at 16:30 Glucose (Glutose) 15 gm Q15M PRN BUCCAL DECREASED GLUCOSE; Start 07/31/16 at 16 :30 Sodium Hypochlorite (Dakin'S (1/4 Strength)) 1 applic BID IRR Last administered on 08/30/16 08:30; Admin Dose 1 APPLIC; Start 08/01/16 at 21:00 Zinc Sulfate (Zinc Sulfate) 220 mg DAILY GTB Last administered on 08/30/16 08: 29; Admin Dose 220 MG; Start 08/03/16 at 11:30 Multivitamins Therapeutic (Theragran) 1 tab DAILY PO Last administered on 08:31; Admin Dose 1 TAB; Start 08/03/16 at 11:30 Ascorbic Acid (Vitamin C) 500 mg BID GTB Last administered on 08/30/16 08:29; Admin Dose 500 MG; Start 08/03/16 at 11:30 Sodium Hypochlorite (Dakin'S (Dilute 1/40%)) 1 applic BID IRR Last administered on 08/30/16 08:30; Admin Dose 1 APPLIC; Start 08/04/16 at 12:00 Levothyroxine Sodium (Synthroid) 25 mcg DAILY@06 PO Last administered on 05:32; Admin Dose 25 MCG; Start 08/11/16 at 06:00 Paroxetine HCl (Paxil) 10 mg DAILY PO Last administered on 08/30/16 08:30; Admin Dose 10 MG; Start 08/11/16 at 21:00 Insulin Aspart (Novolog Insulin Pen) NOVOLOG *MODERATE* ALGORI... Q6 SC Last administered on 08/27/16 17:19; Admin Dose 2 UNIT; Start 08/13/16 at 00:00 Lactobacillus Acidoph/Bulgaricus (Floranex) 1 tab TID GTB Last administered on 08/30/16 13:17; Admin Dose 1 TAB; Start 08/15/16 at 21:30 Metformin HCl (Glucophage) 500 mg Q12 GTB Last administered on 08/27/16 08:54 ; Admin Dose 500 MG; Start 08/15/16 at 21:30; Status Future Hold Acetaminophen (Tylenol Tab) 650 mg Q6H PRN GTB PAIN AND OR ELEVATED TEMP Last administered on 08/28/16 14:46; Admin Dose 650 MG; Start 08/15/16 at 21:30 Magnesium Oxide (Mag-Ox 400) 400 mg DAILY GTB Last administered on 08/30/16 08 :28; Admin Dose 400 MG; Start 08/20/16 at 09:00 Enoxaparin Sodium (Lovenox) 40 mg DAILY SC Last administered on 08/30/16 08:32 ; Admin Dose 40 MG; Start 08/22/16 at 09:00 Famotidine (Pepcid) 20 mg DAILY GTB Last administered on 08/30/16 08:28; Admin Dose 20 MG; Start 08/22/16 at 09:00 Potassium Chloride (Potassium Chloride Pwd/Soln) 40 meq BID GTB Last administered on 08/30/16 08:29; Admin Dose 40 MEQ; Start 08/23/16 at 21:00 Nystatin 5 ml 5 ml QID PO Last administered on 08/30/16 13:18; Admin Dose 5 ML ; Start 08/25/16 at 17:00 Norepinephrine/ Dextrose (Levophed/D5W) 500 ml @ 1.87 mls/hr TITRATE IV Last administered on 08/28/16 10:46; Admin Dose 3.75 MLS/HR; Start 08/28/16 at 09:00 Midodrine (Proamatine) 10 mg TID@09,13,17 PO Last administered on 08/30/16 13: 17; Admin Dose 10 MG; Start 08/28/16 at 10:24 Metronidazole (Flagyl) 500 mg Q8 PO Last administered on 08/30/16 14:59; Admin Dose 500 MG; Start 08/29/16 at 14:00 Fentanyl 25 mcg 25 mcg Q3H PRN IV PAIN; Start 08/29/16 at 17:00 Meropenem 100 ml @ 200 mls/hr Q8 IVPB Last administered on 08/30/16 14:59; Admin Dose 200 MLS/HR; Start 08/30/16 at 14:00 Vancomycin HCl 2 gm/Sodium Chloride 500 ml @ 125 mls/hr ONCE IVPB ; Start 08/30 at 14:00; Stop 08/30/16 at 17:59 Vancomycin HCl 1.25 gm/Sodium Chloride 250 ml @ 83.333 mls/ hr Q8H IVPB ; Start 08/30/16 at 22:00 Dextrose (D5W) 1,000 ml @ 75 mls/hr [id number] IV ; Start 08/30/16 at 15:30; Status D[place]ON [place] Aug 30, 2016 15:09
[2016-08-30] MEDS: DEXTROSE 5% 1,000 ML IV SCH (15:42)
[2016-08-30] MEDS: TOBRAMYCIN/0.25NS 300 MG/5 ML INHAL NEB SCH (20:46)
[2016-08-30] MEDS: ALBUTEROL/IPRATROPIUM (NEB) 3 ML AMP HHN PRN (20:47)
[2016-08-30] MEDS ORDERED: VANCOMYCIN 1.25 GM in SOD CHLORIDE 0.9% 250 ML IVPB SCH (22:00)
[2016-08-31] VITALS (105 sets, daily range): BP systolic 66–164; BP diastolic 44–90; PULSE 89–134; RESP 0–27
[2016-08-31 04:29] LABS: ADD SCAN DIFF NO
[2016-08-31 04:45] LABS: ABNORMAL IP MESSAGE 1; BASOPHIL # 0.1 10^3/ul (0.0-0.1); BASOPHILS % 0.3 % (0.0-2.0); EOSINOPHILS # 0.2 10^3/ul (0.0-0.5); EOSINOPHILS % 0.5 % (0.0-7.0); HEMATOCRIT 29.6 % (42.0-52.0); HEMOGLOBIN 8.6 g/dl (14.0-18.0); LYMPHOCYTES % 2.5 % (15.0-51.0); MEAN CORPUSCULAR HEMOGLOBIN 26.8 pg (29.0-33.0); MEAN CORPUSCULAR HGB CONC 29.1 g/dl (32.0-37.0); MEAN CORPUSCULAR VOLUME 92.2 fl (82.0-101.0); MEAN PLATELET VOLUME 9.6 fl (7.4-10.4); MONOCYTE # 1.9 10^3/ul (0.3-0.9); MONOCYTES % 4.7 % (0.0-11.0); NEUTROPHIL # 34.6 10^3/ul (1.6-7.5); NEUTROPHILS % 86.9 % (39.0-77.0); PLATELET COUNT 558 10^3/UL (140-415); RED BLOOD COUNT 3.21 10^6/ul (4.70-6.10); WHITE BLOOD COUNT 39.8 10^3/ul (4.8-10.8)
[2016-08-31 04:51] LABS: POTASSIUM 3.9 mmol/L (3.5-5.1)
[2016-08-31 04:54] LABS: CALCIUM 11.1 mg/dl (8.4-10.2); CREATININE 0.62 mg/dl (0.61-1.24)
[2016-08-31] MEDS: metroNIDAZOLE 500 MG TAB PO SCH ×3 (05:14→21:19)
[2016-08-31] MEDS: LEVOTHYROXINE 25 MCG TAB PO SCH (05:14)
[2016-08-31] MEDS: MEROPENEM 500 MG/100 ML (PMX) 100 ML IVPB SCH ×3 (05:14→21:18)
[2016-08-31] MEDS: SODIUM HYPOCHLORITE 0.125% 473 ML BTL IRR SCH ×3 (05:18→21:19)
[2016-08-31] MEDS: SODIUM HYPOCHLORITE 1/40% 1L IRRIG IRR SCH ×3 (05:18→21:18)
[2016-08-31] MEDS: INSULIN ASPART [NOVOLOG] 3 ML PEN SC SCH ×4 (05:36→18:35)
[2016-08-31] MEDS ORDERED: VANCOMYCIN 1.25 GM in SOD CHLORIDE 0.9% 250 ML IVPB SCH (06:00)
--- NOTE | 2016-08-31 07:31 | RADRPT ---
PROCEDURE: XR Chest. CLINICAL INDICATION: pneumonia TECHNIQUE: Single frontal view of the chest was obtained. COMPARISON: Chest x-ray from 08/29/2016 FINDINGS: The tip of an endotracheal tube is again noted above the yana. A left-sided Port-A-Cath is again noted. Heart size is within normal limits. There is a stable retrocardiac opacity due to atelectasis, infiltrate, and / or effusion. Consolidations in the right upper lobe as well as in the lateral aspect of the left mid lobe are aga in noted which are not significantly changed. Perihilar infiltrates are stable. Patchy opacities sca ttered throughout the left greater than right lungs are also not significantly changed. Stable small right pleural effusion. IMPRESSION: No significant interval change. RPTAT: EE Physician Jesus Date Time Electronically viewed and signed by Kurt Sommers Physician on 08/31/2016 07:31 /
--- NOTE | 2016-08-31 08:15 | CONS ---
Date/Time of Note Date/Time of Note DATE: 08/31/16 TIME: 08:11 Assessment/Plan Assessment/Plan Additional Assessment/Plan Ventilator settings are AC of 24, tidal volume 500, PEEP of 5, 50% FiO2. Chest x-ray was reviewed from today which is showing improvement in bilateral pneumonia however persistent dense right upper lobe consolidation remains. Assessment and recommendations; 1. Patient admitted with severe pneumonia with persistent changes on chest x- ray however there has been continued interval improvement. 2. 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 3. Severe sacral and bilateral hip decubitus ulcers. 4. Anemia. Status post multiple packed RBC confusion. 5. Systolic dysfunction. 6. Chronic respiratory failure due to quadriplegia due to C2 spinal injury. Continue current treatment. Patient's prognosis is poor. Consultation Date/Type/Reason Admit Date/Time Jul 31, 2016 at 14:20 Initial Consult Date 08/02/16 Type of Consultation: Pulmonary/critical care 24 HR Interval Summary Free Text/Dictation Patient condition remains unchanged. Still requiring low-dose Levophed for blood pressure maintenance. Patient remains awake and alert. Still requiring full ventilator support. Which he has been on for a fairly long time. General exam; young male, on ventilator via tracheostomy currently in no distress. Awake and alert. Exam/Review of Systems Vital Signs Vitals Vital Signs Date Time Temp Pulse Resp B/P Pulse Ox O2 Delivery O2 Flow Rate FiO2 08/31/16 06:30 115 25 107/69 97 08/31/16 05:29 50 08/31/16 04:00 98.4 08/30/16 20:00 Mechanical Ventilator Intake and Output 08/30/16 08/30/16 08/31/16 15:00 23:00 07:00 Intake Total 1128.05 ml 74.7 ml Output Total 990 ml 435 ml 475 ml Balance -990 ml 693.05 ml -400.3 ml Exam HEENT exam is; neck is in a CT C-spine soft collar. Tracheostomy in place with clean insertion site. No neck masses. No thyromegaly. Pupils are midsize and reactive to light. Patient has good dentition. Pharynx is clear. Chest examination; diminished breath sound bilaterally with scattered crackles more pronounced in the right upper lobe. S1-S2 audible, no murmurs. Regular rhythm. Abdomen examination; soft, G-tube in place. Nontender. No organomegaly. Bowel sounds are audible. Extremity examination; no peripheral edema. Pulses 1+ bilaterally. [employer] examination; patient has stable quadriplegia. Back examination; reveals dressing applied over the sacrum as well as bilateral hips. Results Result Diagram: 08/31/16 0400 08/31/16 0400 Results 24 hrs Laboratory Tests Test 08/30/16 11:52 08/30/16 17:52 08/31/16 00:35 08/31/16 04:00 Bedside Glucose 101 99 128 White Blood Count 39.8 #H Red Blood Count 3.21 L Hemoglobin 8.6 L Hematocrit 29.6 L Mean Corpuscular Volume 92.2 Mean Corpuscular Hemoglobin 26.8 L Mean Corpuscular Hemoglobin Concent 29.1 L Red Cell Distribution Width 18.0 H Platelet Count 558 #H Mean Platelet Volume 9.6 Neutrophils % 86.9 H Lymphocytes % 2.5 L Monocytes % 4.7 Eosinophils % 0.5 Basophils % 0.3 Nucleated Red Blood Cells % 0.0 Neutrophils # 34.6 H Lymphocytes # 1.0 Monocytes # 1.9 H Eosinophils # 0.2 Basophils # 0.1 Nucleated Red Blood Cells # 0.0 Sodium Level 149 H Potassium Level 3.9 Chloride Level 113 H Carbon Dioxide Level 23 Anion Gap 17 H Blood Urea Nitrogen 26 H Creatinine 0.62 Glucose Level 162 Calcium Level 11.1 H Test 08/31/16 05:35 Bedside Glucose 140 Medications Medications Current Medications Ondansetron HCl (Zofran Inj) 4 mg Q6H PRN IV NAUSEA AND/OR VOMITING Last administered on 08/15/16 05:11; Admin Dose 4 MG; Start 07/31/16 at 15:00 Morphine Sulfate (morphine) 2 mg Q4H PRN IV SEVERE PAIN LEVEL 7-10 Last administered on 08/30/16 04:04; Admin Dose 2 MG; Start 07/31/16 at 15:00 Magnesium Hydroxide (Milk Of Mag) 30 ml DAILY PRN PO CONSTIPATION; Start at 15:00 Sodium Biphosphate/ Sodium Phosphate (Fleet Enema) 133 ml DAILY PRN [place] CONSTIPATION; Start 07/31/16 at 15:00 Hydralazine HCl (Apresoline) 10 mg Q6H PRN IV ELEVATED BLOOD PRESSURE; Start at 15:00 Nitroglycerin (Nitroglycerin (Sl Tab) 0.4 Mg) 1 tab Q5M PRN SL ANGINA; Start at 15:00 Miscellaneous Information 1 ea NOTE XX ; Start 07/31/16 at 16:30 Glucose (Glutose) 15 gm Q15M PRN PO DECREASED GLUCOSE; Start 07/31/16 at 16:30 Glucose (Glutose) 22.5 gm Q15M PRN PO DECREASED GLUCOSE; Start 07/31/16 at 16: 30 Dextrose (D50w Syringe) 25 ml Q15M PRN IV DECREASED GLUCOSE; Start 07/31/16 at 16:30 Dextrose (D50w Syringe) 50 ml Q15M PRN IV DECREASED GLUCOSE; Start 07/31/16 at 16:30 Glucagon (Glucagen) 1 mg Q15M PRN IM DECREASED GLUCOSE; Start 07/31/16 at 16:30 Glucose (Glutose) 15 gm Q15M PRN BUCCAL DECREASED GLUCOSE; Start 07/31/16 at 16 :30 Sodium Hypochlorite (Dakin'S (1/4 Strength)) 1 applic BID IRR Last administered on 08/31/16 05:18; Admin Dose 1 APPLIC; Start 08/01/16 at 21:00 Zinc Sulfate (Zinc Sulfate) 220 mg DAILY GTB Last administered on 08/30/16 08: 29; Admin Dose 220 MG; Start 08/03/16 at 11:30 Multivitamins Therapeutic (Theragran) 1 tab DAILY PO Last administered on 08:31; Admin Dose 1 TAB; Start 08/03/16 at 11:30 Ascorbic Acid (Vitamin C) 500 mg BID GTB Last administered on 08/30/16 21:05; Admin Dose 500 MG; Start 08/03/16 at 11:30 Sodium Hypochlorite (Dakin'S (Dilute 1/40%)) 1 applic BID IRR Last administered on 08/31/16 05:18; Admin Dose 1 APPLIC; Start 08/04/16 at 12:00 Levothyroxine Sodium (Synthroid) 25 mcg DAILY@06 PO Last administered on 05:14; Admin Dose 25 MCG; Start 08/11/16 at 06:00 Paroxetine HCl (Paxil) 10 mg DAILY PO Last administered on 08/30/16 08:30; Admin Dose 10 MG; Start 08/11/16 at 21:00 Insulin Aspart (Novolog Insulin Pen) NOVOLOG *MODERATE* ALGORI... Q6 SC Last administered on 08/27/16 17:19; Admin Dose 2 UNIT; Start 08/13/16 at 00:00 Lactobacillus Acidoph/Bulgaricus (Floranex) 1 tab TID GTB Last administered on 08/30/16 21:05; Admin Dose 1 TAB; Start 08/15/16 at 21:30 Metformin HCl (Glucophage) 500 mg Q12 GTB Last administered on 08/27/16 08:54 ; Admin Dose 500 MG; Start 08/15/16 at 21:30; Status Future Hold Acetaminophen (Tylenol Tab) 650 mg Q6H PRN GTB PAIN AND OR ELEVATED TEMP Last administered on 08/28/16 14:46; Admin Dose 650 MG; Start 08/15/16 at 21:30 Magnesium Oxide (Mag-Ox 400) 400 mg DAILY GTB Last administered on 08/30/16 08 :28; Admin Dose 400 MG; Start 08/20/16 at 09:00 Enoxaparin Sodium (Lovenox) 40 mg DAILY SC Last administered on 08/30/16 08:32 ; Admin Dose 40 MG; Start 08/22/16 at 09:00 Famotidine (Pepcid) 20 mg DAILY GTB Last administered on 08/30/16 08:28; Admin Dose 20 MG; Start 08/22/16 at 09:00 Potassium Chloride (Potassium Chloride Pwd/Soln) 40 meq BID GTB Last administered on 08/30/16 21:05; Admin Dose 40 MEQ; Start 08/23/16 at 21:00 Nystatin 5 ml 5 ml QID PO Last administered on 08/30/16 21:05; Admin Dose 5 ML ; Start 08/25/16 at 17:00 Norepinephrine/ Dextrose (Levophed/D5W) 500 ml @ 1.87 mls/hr TITRATE IV Last administered on 08/28/16 10:46; Admin Dose 3.75 MLS/HR; Start 08/28/16 at 09:00 Midodrine (Proamatine) 10 mg TID@,,17 PO Last administered on 08/30/16 17: 54; Admin Dose 10 MG; Start 08/28/16 at 10:24 Metronidazole (Flagyl) 500 mg Q8 PO Last administered on 08/31/16 05:14; Admin Dose 500 MG; Start 08/29/16 at 14:00 Fentanyl 25 mcg 25 mcg Q3H PRN IV PAIN; Start 08/29/16 at 17:00 Meropenem 100 ml @ 200 mls/hr Q8 IVPB Last administered on 08/31/16 05:14; Admin Dose 200 MLS/HR; Start 08/30/16 at 14:00 Dextrose 1,000 ml @ 75 mls/hr [id number] IV Last administered on 08/30/16 15:42 ; Admin Dose 75 MLS/HR; Start 08/30/16 at 15:30 Vancomycin HCl/ Sodium Chloride (Vancocin/NS) 250 ml @ 83.333 mls/ hr Q12H IVPB Last administered on 08/31/16 05:23; Admin Dose 83.333 MLS/HR; Start at 06:00 ALISSON ARRIOLA 31, 2017 08:15
[2016-08-31] MEDS: MAGNESIUM OXIDE 400 MG TAB GTB SCH (08:55)
[2016-08-31] MEDS: PAROXETINE 10 MG TAB PO SCH (08:55)
[2016-08-31] MEDS: FAMOTIDINE 20 MG TAB GTB SCH (08:55)
[2016-08-31] MEDS: MIDODRINE 5 MG TAB PO SCH ×3 (08:55→17:58)
[2016-08-31] MEDS: ZINC SULFATE 220 MG CAP GTB SCH (08:56)
[2016-08-31] MEDS: ASCORBIC ACID 500 MG TAB GTB SCH ×2 (08:56→21:19)
[2016-08-31] MEDS: POTASSIUM CHLORIDE 20 MEQ POWDER FOR ORAL SOLN GTB SCH ×2 (08:56→21:19)
[2016-08-31] MEDS: NYSTATIN SUSP 5 ML CUP PO SCH ×4 (08:56→21:19)
[2016-08-31] MEDS: MULTIVITAMINS THERAPEUTIC TAB PO SCH (08:56)
[2016-08-31] MEDS: LACTOBACILLUS CHEW TAB GTB SCH ×3 (08:56→21:21)
[2016-08-31] MEDS: ENOXAPARIN 40 MG/0.4 ML SYG SC SCH (08:57)
[2016-08-31] MEDS: ALBUTEROL HFA 8 GM INHALER INH SCH ×2 (10:26→17:37)
--- NOTE | 2016-08-31 10:40 | PN ---
DATE: 08/31/2016 PALLIATIVE CARE FOLLOWUP NOTE SUBJECTIVE: Mr. Alfaro looks better today. He is tracking me. He is attempting to speak once again, h e says yes/no, he says he wants water. He is much more lucid. OBJECTIVE: VITAL SIGNS: Temperature 98.4, blood pressure 107/69, pulse 115 and regular, respirations of 25, an d 97% saturation on 50% FIO2. CHEST: Inspiratory and expiratory wheezing and rhonchi throughout both lung singh. COR: S1, S2, without S3, S4, murmur, gallop, rub. Normal rate, normal rhythm. ABDOMEN: Grossly benign. NEUROLOGICAL: He is oriented x3. LABORATORY DATA: White blood cell count of 39.8, hemoglobin 8.6, hematocrit 29.6, MCV of 92.2, plat elet count of 558,000. Chemistries: Serum sodium 149, potassium 3.9, chloride 113, bicarbonate 23, BUN of 26, creatinine 0.62, blood sugar 162. IMAGING STUDY: Today's chest x-ray shows no significant change compared to prior x-ray done on August 29, as read out by Dr. Leonard Sommers. ASSESSMENT AND PLAN: I have told his son this morning that he looks cognitively more improved. His laboratory tests do not necessarily reflect that, but at least clinically he looks better today. I believe he is still he has the capacity to make decisions on his own. Bioethics consultation shoul d be done in the event that patient does back tracking so far as his current clinical findings, that is unable to oxygenate him adequately or require pressors or if his cognitive abilities depress so much so that he is unable make any decisions on his own. For right now, hold off a bioethics consult atformerly [facility]. Dictated By: MARYSOL BRADFORD MD, LP/SCOTTIE Conf#: [id number] DID#: [id number]
[2016-08-31] MEDS: TOBRAMYCIN/0.25NS 300 MG/5 ML INHAL NEB SCH ×2 (10:41→21:55)
--- NOTE | 2016-08-31 12:10 | CONS ---
Date/Time of Note Date/Time of Note DATE: 08/31/16 TIME: 12:08 Assessment/Plan Assessment/Plan Additional Assessment/Plan Septic shock Acute decompensated systolic congestive heart failure Sinus tachycardia C2 fracture and quadriplegic Respiratory failure Cardiomyopathy with ejection fraction 50% via echo on previous admission Decubiti Hypotension -Titrate IV pressor to maintain SBP greater than 90 and/or map above 60, antibiotics as per infectious disease. Palliative care following. Consultation Date/Type/Reason Admit Date/Time Jul 31, 2016 at 14:20 Type of Consultation: cv 24 HR Interval Summary Free Text/Dictation Patient seen and examined, IV pressor requirements have increased as per nursing staff Exam/Review of Systems Vital Signs Vitals Vital Signs Date Time Temp Pulse Resp B/P Pulse Ox O2 Delivery O2 Flow Rate FiO2 08/31/16 11:30 126 24 96 50 08/31/16 10:15 120/70 08/31/16 10:00 Mechanical Ventilator 08/31/16 08:00 98.0 Intake and Output 08/30/16 08/30/16 08/31/16 15:00 23:00 07:00 Intake Total 1128.05 ml 74.7 ml Output Total 990 ml 435 ml 475 ml Balance -990 ml 693.05 ml -400.3 ml Exam Occasionally awake, no apparent distress Neck: other (Tracheostomy) Respiratory: crackles/rales, other (Coarse breath sounds bilaterally) Cardiovascular: other (S1-S2 heard), regular rate and rhythm Gastrointestinal: bowel sounds, non-tender, other (No grimacing with palpation) , soft Extremities: edema, other (No edema) Results Result Diagram: 08/31/16 0400 08/31/16 0400 Results 24 hrs Laboratory Tests Test 08/30/16 17:52 08/31/16 00:35 08/31/16 04:00 08/31/16 05:35 Bedside Glucose 99 128 140 White Blood Count 39.8 #H Red Blood Count 3.21 L Hemoglobin 8.6 L Hematocrit 29.6 L Mean Corpuscular Volume 92.2 Mean Corpuscular Hemoglobin 26.8 L Mean Corpuscular Hemoglobin Concent 29.1 L Red Cell Distribution Width 18.0 H Platelet Count 558 #H Mean Platelet Volume 9.6 Neutrophils % 86.9 H Lymphocytes % 2.5 L Monocytes % 4.7 Eosinophils % 0.5 Basophils % 0.3 Nucleated Red Blood Cells % 0.0 Neutrophils # 34.6 H Lymphocytes # 1.0 Monocytes # 1.9 H Eosinophils # 0.2 Basophils # 0.1 Nucleated Red Blood Cells # 0.0 Sodium Level 149 H Potassium Level 3.9 Chloride Level 113 H Carbon Dioxide Level 23 Anion Gap 17 H Blood Urea Nitrogen 26 H Creatinine 0.62 Glucose Level 162 Calcium Level 11.1 H Medications Medications Current Medications Ondansetron HCl (Zofran Inj) 4 mg Q6H PRN IV NAUSEA AND/OR VOMITING Last administered on 08/15/16 05:11; Admin Dose 4 MG; Start 07/31/16 at 15:00 Morphine Sulfate (morphine) 2 mg Q4H PRN IV SEVERE PAIN LEVEL 7-10 Last administered on 08/30/16 04:04; Admin Dose 2 MG; Start 07/31/16 at 15:00 Magnesium Hydroxide (Milk Of Mag) 30 ml DAILY PRN PO CONSTIPATION; Start at 15:00 Sodium Biphosphate/ Sodium Phosphate (Fleet Enema) 133 ml DAILY PRN [place] CONSTIPATION; Start 07/31/16 at 15:00 Hydralazine HCl (Apresoline) 10 mg Q6H PRN IV ELEVATED BLOOD PRESSURE; Start at 15:00 Nitroglycerin (Nitroglycerin (Sl Tab) 0.4 Mg) 1 tab Q5M PRN SL ANGINA; Start at 15:00 Miscellaneous Information 1 ea NOTE XX ; Start 07/31/16 at 16:30 Glucose (Glutose) 15 gm Q15M PRN PO DECREASED GLUCOSE; Start 07/31/16 at 16:30 Glucose (Glutose) 22.5 gm Q15M PRN PO DECREASED GLUCOSE; Start 07/31/16 at 16: 30 Dextrose (D50w Syringe) 25 ml Q15M PRN IV DECREASED GLUCOSE; Start 07/31/16 at 16:30 Dextrose (D50w Syringe) 50 ml Q15M PRN IV DECREASED GLUCOSE; Start 07/31/16 at 16:30 Glucagon (Glucagen) 1 mg Q15M PRN IM DECREASED GLUCOSE; Start 07/31/16 at 16:30 Glucose (Glutose) 15 gm Q15M PRN BUCCAL DECREASED GLUCOSE; Start 07/31/16 at 16 :30 Sodium Hypochlorite (Dakin'S (1/4 Strength)) 1 applic BID IRR Last administered on 08/31/16 08:57; Admin Dose 1 APPLIC; Start 08/01/16 at 21:00 Zinc Sulfate (Zinc Sulfate) 220 mg DAILY GTB Last administered on 08/31/16 08: 56; Admin Dose 220 MG; Start 08/03/16 at 11:30 Multivitamins Therapeutic (Theragran) 1 tab DAILY PO Last administered on 08:56; Admin Dose 1 TAB; Start 08/03/16 at 11:30 Ascorbic Acid (Vitamin C) 500 mg BID GTB Last administered on 08/31/16 08:56; Admin Dose 500 MG; Start 08/03/16 at 11:30 Sodium Hypochlorite (Dakin'S (Dilute 1/40%)) 1 applic BID IRR Last administered on 08/31/16 08:57; Admin Dose 1 APPLIC; Start 08/04/16 at 12:00 Levothyroxine Sodium (Synthroid) 25 mcg DAILY@06 PO Last administered on 05:14; Admin Dose 25 MCG; Start 08/11/16 at 06:00 Paroxetine HCl (Paxil) 10 mg DAILY PO Last administered on 08/31/16 08:55; Admin Dose 10 MG; Start 08/11/16 at 21:00 Insulin Aspart (Novolog Insulin Pen) NOVOLOG *MODERATE* ALGORI... Q6 SC Last administered on 08/27/16 17:19; Admin Dose 2 UNIT; Start 08/13/16 at 00:00 Lactobacillus Acidoph/Bulgaricus (Floranex) 1 tab TID GTB Last administered on 08/31/16 08:56; Admin Dose 1 TAB; Start 08/15/16 at 21:30 Metformin HCl (Glucophage) 500 mg Q12 GTB Last administered on 08/27/16 08:54 ; Admin Dose 500 MG; Start 08/15/16 at 21:30; Status Future Hold Acetaminophen (Tylenol Tab) 650 mg Q6H PRN GTB PAIN AND OR ELEVATED TEMP Last administered on 08/28/16 14:46; Admin Dose 650 MG; Start 08/15/16 at 21:30 Magnesium Oxide (Mag-Ox 400) 400 mg DAILY GTB Last administered on 08/31/16 08 :55; Admin Dose 400 MG; Start 08/20/16 at 09:00 Enoxaparin Sodium (Lovenox) 40 mg DAILY SC Last administered on 08/31/16 08:57 ; Admin Dose 40 MG; Start 08/22/16 at 09:00 Famotidine (Pepcid) 20 mg DAILY GTB Last administered on 08/31/16 08:55; Admin Dose 20 MG; Start 08/22/16 at 09:00 Potassium Chloride (Potassium Chloride Pwd/Soln) 40 meq BID GTB Last administered on 08/31/16 08:56; Admin Dose 40 MEQ; Start 08/23/16 at 21:00 Nystatin 5 ml 5 ml QID PO Last administered on 08/31/16 08:56; Admin Dose 5 ML ; Start 08/25/16 at 17:00 Norepinephrine/ Dextrose (Levophed/D5W) 500 ml @ 1.87 mls/hr TITRATE IV Last administered on 08/28/16 10:46; Admin Dose 3.75 MLS/HR; Start 08/28/16 at 09:00 Midodrine (Proamatine) 10 mg TID@09,13,17 PO Last administered on 08/31/16 08: 55; Admin Dose 10 MG; Start 08/28/16 at 10:24 Metronidazole (Flagyl) 500 mg Q8 PO Last administered on 08/31/16 05:14; Admin Dose 500 MG; Start 08/29/16 at 14:00 Fentanyl 25 mcg 25 mcg Q3H PRN IV PAIN; Start 08/29/16 at 17:00 Meropenem 100 ml @ 200 mls/hr Q8 IVPB Last administered on 08/31/16 05:14; Admin Dose 200 MLS/HR; Start 08/30/16 at 14:00 Dextrose 1,000 ml @ 75 mls/hr [id number] IV Last administered on 08/30/16 15:42 ; Admin Dose 75 MLS/HR; Start 08/30/16 at 15:30 Vancomycin HCl/ Sodium Chloride (Vancocin/NS) 250 ml @ 83.333 mls/ hr Q12H IVPB Last administered on 08/31/16 05:23; Admin Dose 83.333 MLS/HR; Start at 06:00 Miscellaneous Information (*Rx Drug Level Order Reminder*) 1 ONCE ONCE XX ; Start 09/01/16 at 05:00; Stop 09/01/16 at 05:01 Kb Barrett DO Aug 31, 2016 12:10
--- NOTE | 2016-08-31 13:18 | PN ---
Date/Time of Note Date/Time of Note DATE: 08/31/16 TIME: 13:15 Assessment/Plan VTE Prophylaxis VTE Prophylaxis Intervention: LMWH Lines/Catheters IV [facility] Portacath Urinary Cath still in place: Yes Reason Cath still needed: urinary retention Assessment/Plan Chief Complaint/Hosp Course ASSESSMENT AND PLAN: 46-year-old male sent in with fever and diaphoresis with findings of septic shock. 1) Sepsis/shock - sec to HCAP likely + decub ulcer infx's, now with shock - on pressor support. sp bronch/atb's. - continue abx, per ID, - Meropenem, Tobra, Vanco, and Flagyl, wean pressor support as tolerated - f/u ID, pulm, and and palliative care rec's - f/u cx results 2) Decubitus wound/ MDR organisms. Diverting colostomy & debridement may not be feasible while on vent. quality of life will not improve post therapy. - abx as above 3) Quadraplegia; poor prognosis; palliative care eval appreciated - for now pt is full code. Pt appears to be able to make decisions, but has said he still wants his brother to make decisions on his behalf if he cannot do so. Also, palliative team met with family today as well. F/u rec's. 4) Ho C2 fracture - monitor 5) VDRF; cont vent, f/u pulm rec's 6) Ho c diff - monitor 7) Chr CHF/ systolic? - monitor 8) Past tobacco - monitor 9) Malnutrition; cont peg/feeds/free water. 10) Elevated Ca - Still somewhat high. - monitor - if not improves or increases, consider endo consult? 11) hypernatremia - 149 - continue D5W, add free H2O Critical care time spent with pt care today = 40 min. Problems: Subjective 24 Hr Interval Summary Free Text/Dictation Still on pressor support, no acute events overnight. Exam/Review of Systems Vital Signs Vitals Vital Signs Date Time Temp Pulse Resp B/P Pulse Ox O2 Delivery O2 Flow Rate FiO2 08/31/16 11:30 126 24 96 50 08/31/16 10:15 120/70 08/31/16 10:00 Mechanical Ventilator 08/31/16 08:00 98.0 Intake and Output 3/08/30/16 08/31/16 15:00 23:00 07:00 Intake Total 1128.05 ml 74.7 ml Output Total 990 ml 435 ml 475 ml Balance -990 ml 693.05 ml -400.3 ml Exam Gen: lying in bed, lethargic HEENT: PERRL/EOMI Neck: Trach c/d/i. no pallor. Positive thrush CV: Reg RR Res: Dimin bs bilat; port - no drainage GI: Bs + nt nd, no r/r/g. PEG c/d/i Ext- hypotonia. some edema. Wound dressed. Results Result Diagram: 08/31/16 0400 08/31/16 0400 Results 24 hrs Laboratory Tests Test 08/30/16 17:52 08/31/16 00:35 08/31/16 04:00 08/31/16 05:35 Bedside Glucose 99 128 140 White Blood Count 39.8 #H Red Blood Count 3.21 L Hemoglobin 8.6 L Hematocrit 29.6 L Mean Corpuscular Volume 92.2 Mean Corpuscular Hemoglobin 26.8 L Mean Corpuscular Hemoglobin Concent 29.1 L Red Cell Distribution Width 18.0 H Platelet Count 558 #H Mean Platelet Volume 9.6 Neutrophils % 86.9 H Lymphocytes % 2.5 L Monocytes % 4.7 Eosinophils % 0.5 Basophils % 0.3 Nucleated Red Blood Cells % 0.0 Neutrophils # 34.6 H Lymphocytes # 1.0 Monocytes # 1.9 H Eosinophils # 0.2 Basophils # 0.1 Nucleated Red Blood Cells # 0.0 Sodium Level 149 H Potassium Level 3.9 Chloride Level 113 H Carbon Dioxide Level 23 Anion Gap 17 H Blood Urea Nitrogen 26 H Creatinine 0.62 Glucose Level 162 Calcium Level 11.1 H Test 08/31/16 12:57 Bedside Glucose 154 Medications Medications Current Medications Ondansetron HCl (Zofran Inj) 4 mg Q6H PRN IV NAUSEA AND/OR VOMITING Last administered on 08/15/16 05:11; Admin Dose 4 MG; Start 07/31/16 at 15:00 Morphine Sulfate (morphine) 2 mg Q4H PRN IV SEVERE PAIN LEVEL 7-10 Last administered on 08/30/16 04:04; Admin Dose 2 MG; Start 07/31/16 at 15:00 Magnesium Hydroxide (Milk Of Mag) 30 ml DAILY PRN PO CONSTIPATION; Start at 15:00 Sodium Biphosphate/ Sodium Phosphate (Fleet Enema) 133 ml DAILY PRN [place] CONSTIPATION; Start 07/31/16 at 15:00 Hydralazine HCl (Apresoline) 10 mg Q6H PRN IV ELEVATED BLOOD PRESSURE; Start at 15:00 Nitroglycerin (Nitroglycerin (Sl Tab) 0.4 Mg) 1 tab Q5M PRN SL ANGINA; Start at 15:00 Miscellaneous Information 1 ea NOTE XX ; Start 07/31/16 at 16:30 Glucose (Glutose) 15 gm Q15M PRN PO DECREASED GLUCOSE; Start 07/31/16 at 16:30 Glucose (Glutose) 22.5 gm Q15M PRN PO DECREASED GLUCOSE; Start 07/31/16 at 16: 30 Dextrose (D50w Syringe) 25 ml Q15M PRN IV DECREASED GLUCOSE; Start 07/31/16 at 16:30 Dextrose (D50w Syringe) 50 ml Q15M PRN IV DECREASED GLUCOSE; Start 07/31/16 at 16:30 Glucagon (Glucagen) 1 mg Q15M PRN IM DECREASED GLUCOSE; Start 07/31/16 at 16:30 Glucose (Glutose) 15 gm Q15M PRN BUCCAL DECREASED GLUCOSE; Start 07/31/16 at 16 :30 Sodium Hypochlorite (Dakin'S (1/4 Strength)) 1 applic BID IRR Last administered on 08/31/16 08:57; Admin Dose 1 APPLIC; Start 08/01/16 at 21:00 Zinc Sulfate (Zinc Sulfate) 220 mg DAILY GTB Last administered on 08/31/16 08: 56; Admin Dose 220 MG; Start 08/03/16 at 11:30 Multivitamins Therapeutic (Theragran) 1 tab DAILY PO Last administered on 08:56; Admin Dose 1 TAB; Start 08/03/16 at 11:30 Ascorbic Acid (Vitamin C) 500 mg BID GTB Last administered on 08/31/16 08:56; Admin Dose 500 MG; Start 08/03/16 at 11:30 Sodium Hypochlorite (Dakin'S (Dilute 1/40%)) 1 applic BID IRR Last administered on 08/31/16 08:57; Admin Dose 1 APPLIC; Start 08/04/16 at 12:00 Levothyroxine Sodium (Synthroid) 25 mcg DAILY@06 PO Last administered on 05:14; Admin Dose 25 MCG; Start 08/11/16 at 06:00 Paroxetine HCl (Paxil) 10 mg DAILY PO Last administered on 08/31/16 08:55; Admin Dose 10 MG; Start 08/11/16 at 21:00 Insulin Aspart (Novolog Insulin Pen) NOVOLOG *MODERATE* ALGORI... Q6 SC Last administered on 08/31/16 12:59; Admin Dose 2 UNIT; Start 08/13/16 at 00:00 Lactobacillus Acidoph/Bulgaricus (Floranex) 1 tab TID GTB Last administered on 08/31/16 12:57; Admin Dose 1 TAB; Start 08/15/16 at 21:30 Metformin HCl (Glucophage) 500 mg Q12 GTB Last administered on 08/27/16 08:54 ; Admin Dose 500 MG; Start 08/15/16 at 21:30; Status Future Hold Acetaminophen (Tylenol Tab) 650 mg Q6H PRN GTB PAIN AND OR ELEVATED TEMP Last administered on 08/28/16 14:46; Admin Dose 650 MG; Start 08/15/16 at 21:30 Magnesium Oxide (Mag-Ox 400) 400 mg DAILY GTB Last administered on 08/31/16 08 :55; Admin Dose 400 MG; Start 08/20/16 at 09:00 Enoxaparin Sodium (Lovenox) 40 mg DAILY SC Last administered on 08/31/16 08:57 ; Admin Dose 40 MG; Start 08/22/16 at 09:00 Famotidine (Pepcid) 20 mg DAILY GTB Last administered on 08/31/16 08:55; Admin Dose 20 MG; Start 08/22/16 at 09:00 Potassium Chloride (Potassium Chloride Pwd/Soln) 40 meq BID GTB Last administered on 08/31/16 08:56; Admin Dose 40 MEQ; Start 08/23/16 at 21:00 Nystatin 5 ml 5 ml QID PO Last administered on 08/31/16 12:57; Admin Dose 5 ML ; Start 08/25/16 at 17:00 Norepinephrine/ Dextrose (Levophed/D5W) 500 ml @ 1.87 mls/hr TITRATE IV Last administered on 08/28/16 10:46; Admin Dose 3.75 MLS/HR; Start 08/28/16 at 09:00 Midodrine (Proamatine) 10 mg TID@09,13,17 PO Last administered on 08/31/16 12: 58; Admin Dose 10 MG; Start 08/28/16 at 10:24 Metronidazole (Flagyl) 500 mg Q8 PO Last administered on 08/31/16 13:00; Admin Dose 500 MG; Start 08/29/16 at 14:00 Fentanyl 25 mcg 25 mcg Q3H PRN IV PAIN; Start 08/29/16 at 17:00 Meropenem 100 ml @ 200 mls/hr Q8 IVPB Last administered on 08/31/16 13:00; Admin Dose 200 MLS/HR; Start 08/30/16 at 14:00 Dextrose 1,000 ml @ 75 mls/hr [id number] IV Last administered on 08/30/16 15:42 ; Admin Dose 75 MLS/HR; Start 08/30/16 at 15:30 Vancomycin HCl/ Sodium Chloride (Vancocin/NS) 250 ml @ 83.333 mls/ hr Q12H IVPB Last administered on 08/31/16 05:23; Admin Dose 83.333 MLS/HR; Start at 06:00 Miscellaneous Information (*Rx Drug Level Order Reminder*) 1 ONCE ONCE XX ; Start 09/01/16 at 05:00; Stop 09/01/16 at 05:01 DARON FARRELL Aug 31, 2016 13:18
--- NOTE | 2016-08-31 15:03 | PN ---
DATE: 08/31/2016 SUBJECTIVE: No acute events. The patient is on pressors, tachycardic, in no distress. VITAL SIGNS: Temperature 98, pulse 126, respirations 20, blood pressure 105/70, saturation 98% on 5 0% FIO2. LABORATORY DATA: WBC 39.8, H and H 8.6 and 29.6, platelets 558, neutrophils 86.9. BUN 26, creatini ne 0.62. MICROBIOLOGY: Blood cultures remain negative. Urine culture on 08/25/2016 negative. INDWELLINGS: Trach, PEG, Oliveira, left subclavian Port-A-Cath. ANTIMICROBIALS: The patient is on: 1. IV vancomycin 2. Tobramycin inhalation. 3. Flagyl. 4. Meropenem. PHYSICAL EXAMINATION: GENERAL: This is a chronically ill-appearing, wasted, middle-aged man who is lying comfortably in b ed. HEENT: Head atraumatic, normocephalic. Sclerae anicteric. Buccal mucosa dry. NECK: Supple. Tracheostomy present. CHEST: Rise symmetrical. Breath sounds diminished with scattered crackles. HEART: S1, S2. ABDOMEN: Soft. Bowel tones present. EXTREMITIES: With bilateral edema. SKIN: With multiple chronic open wounds. IMPRESSION: 1. Severe sepsis with shock and multisystem organ failure. . 2. Healthcare-associated pneumonia. 3. Multiple chronic wounds. 4. Status post urinary tract infection. 5. Quadriplegia secondary to C-spine trauma. 6. Anemia. 7. Tachycardia. 8. Cardiomyopathy with ejection fraction 50% on previous admission. PLAN: The patient is doing poorly with worsening of his leukocytosis. He is on broad-spectrum anti biotics. His wound culture previously grew VRE and multidrug-resistant gram negative organisms. We are going to change vancomycin to Zyvox and add colistin to the regimen. The patient is followed b y palliative care team. He is a FULL CODE Prognosis guarded. Dictated By: LESLIE FERRARO STREAM CONTROL OFFICER for [employer] HERNANDE[employer]/NTS Conf#: [id number] DID#: [id number]
[2016-08-31] MEDS: DEXTROSE 5% 1,000 ML IV SCH ×2 (16:11→18:10)
[2016-08-31] MEDS: COLISTIMETHATE 75 MG in SOD CHLORIDE 0.9% 100 ML IVPB SCH (21:18)
[2016-08-31] MEDS: LINEZOLID 600 MG/D5W (PMX) 300 ML IVPB SCH (21:18)
[2016-08-31] MEDS: morphine 2 MG INJ IV PRN (23:25)
[2016-09-01] VITALS (89 sets, daily range): BP systolic 82–150; BP diastolic 42–100; PULSE 85–114; RESP 0–24
[2016-09-01] MEDS: INSULIN ASPART [NOVOLOG] 3 ML PEN SC SCH ×4 (00:24→17:46)
[2016-09-01] MEDS: FENTAnyl 50 MCG/ML VIAL IV PRN (01:47)
[2016-09-01] MEDS: morphine 2 MG INJ IV PRN ×2 (05:04→18:29)
[2016-09-01] MEDS: DEXTROSE 5% 1,000 ML IV SCH ×2 (05:06→21:33)
[2016-09-01 05:31] LABS: ADD SCAN DIFF NO
[2016-09-01 05:56] LABS: POTASSIUM 3.7 mmol/L (3.5-5.1)
[2016-09-01 05:59] LABS: CREATININE 0.55 mg/dl (0.61-1.24)
[2016-09-01 06:00] LABS: CALCIUM 9.7 mg/dl (8.4-10.2)
[2016-09-01 06:03] LABS: ABNORMAL IP MESSAGE 1; BASOPHILS % 0.2 % (0.0-2.0); EOSINOPHILS # 0.2 10^3/ul (0.0-0.5); HEMATOCRIT 25.7 % (42.0-52.0); HEMOGLOBIN 7.3 g/dl (14.0-18.0); LYMPHOCYTES # 0.9 10^3/ul (0.8-2.9); LYMPHOCYTES % 3.6 % (15.0-51.0); MEAN CORPUSCULAR HEMOGLOBIN 25.8 pg (29.0-33.0); MEAN CORPUSCULAR HGB CONC 28.4 g/dl (32.0-37.0); MEAN CORPUSCULAR VOLUME 90.8 fl (82.0-101.0); MEAN PLATELET VOLUME 9.9 fl (7.4-10.4); MONOCYTE # 1.4 10^3/ul (0.3-0.9); MONOCYTES % 5.8 % (0.0-11.0); NEUTROPHIL # 20.3 10^3/ul (1.6-7.5); NEUTROPHILS % 85.4 % (39.0-77.0); PLATELET COUNT 464 10^3/UL (140-415); RED BLOOD COUNT 2.83 10^6/ul (4.70-6.10); WHITE BLOOD COUNT 23.8 10^3/ul (4.8-10.8)
[2016-09-01] MEDS: LEVOTHYROXINE 25 MCG TAB PO SCH (06:52)
[2016-09-01] MEDS: metroNIDAZOLE 500 MG TAB PO SCH ×3 (06:52→21:23)
[2016-09-01] MEDS: MEROPENEM 500 MG/100 ML (PMX) 100 ML IVPB SCH ×3 (06:52→22:39)
[2016-09-01] MEDS: TOBRAMYCIN/0.25NS 300 MG/5 ML INHAL NEB SCH ×2 (08:39→20:22)
[2016-09-01] MEDS: ZINC SULFATE 220 MG CAP GTB SCH (08:41)
[2016-09-01] MEDS: ASCORBIC ACID 500 MG TAB GTB SCH ×2 (08:41→21:23)
[2016-09-01] MEDS: MULTIVITAMINS THERAPEUTIC TAB PO SCH (08:41)
[2016-09-01] MEDS: MAGNESIUM OXIDE 400 MG TAB GTB SCH (08:41)
[2016-09-01] MEDS: COLISTIMETHATE 75 MG in SOD CHLORIDE 0.9% 100 ML IVPB SCH ×2 (08:41→21:22)
[2016-09-01] MEDS: FAMOTIDINE 20 MG TAB GTB SCH (08:41)
[2016-09-01] MEDS: LACTOBACILLUS CHEW TAB GTB SCH ×3 (08:41→21:23)
[2016-09-01] MEDS: PAROXETINE 10 MG TAB PO SCH (08:41)
[2016-09-01] MEDS: LINEZOLID 600 MG/D5W (PMX) 300 ML IVPB SCH ×2 (08:41→22:04)
[2016-09-01] MEDS: ENOXAPARIN 40 MG/0.4 ML SYG SC SCH (08:43)
[2016-09-01] MEDS: ALBUTEROL HFA 8 GM INHALER INH SCH ×2 (08:46→17:36)
[2016-09-01] MEDS: POTASSIUM CHLORIDE 20 MEQ POWDER FOR ORAL SOLN GTB SCH ×2 (08:48→21:23)
[2016-09-01] MEDS: MIDODRINE 5 MG TAB PO SCH ×3 (08:48→17:46)
[2016-09-01] MEDS: NYSTATIN SUSP 5 ML CUP PO SCH ×4 (08:48→21:22)
[2016-09-01] MEDS: SODIUM HYPOCHLORITE 1/40% 1L IRRIG IRR SCH ×2 (08:49→22:06)
[2016-09-01] MEDS: SODIUM HYPOCHLORITE 0.125% 473 ML BTL IRR SCH ×2 (08:49→22:06)
--- NOTE | 2016-09-01 12:50 | CONS ---
Date/Time of Note Date/Time of Note DATE: 09/01/16 TIME: 12:47 Consult Date/Type/Reason Admit Date/Time Jul 31, 2016 at 14:20 Initial Consult Date Type of Consultation: Pulm Subjective No events.Remains on mechanical vent. Objective Vital Signs Date Time Temp Pulse Resp B/P Pulse Ox O2 Delivery O2 Flow Rate FiO2 09/01/16 08:00 93 09/01/16 08:00 50 09/01/16 06:30 24 115/76 97 09/01/16 04:00 98.3 09/01/16 00:00 Mechanical Ventilator Intake and Output 08/31/16 08/31/16 09/01/16 14:59 22:59 06:59 Intake Total 688.1 ml 1215.8 ml Output Total 530 ml 595 ml 975 ml Balance -530 ml 93.1 ml 240.8 ml Exam HEENT: Neck supple; no JVD; no LAD CVS: RRR, S1 and S2 CHEST: Coarse rhonchi b/l ABD: Soft, NT, + BS EXT: contractures; + edema; + decubs Results/Medications Result Diagram: 09/01/16 0500 09/01/16 0500 Results 24 hrs Laboratory Tests Test 08/31/16 12:57 08/31/16 18:28 09/01/16 00:19 09/01/16 05:00 Bedside Glucose 154 165 188 White Blood Count 23.8 #H Red Blood Count 2.83 L Hemoglobin 7.3 L Hematocrit 25.7 L Mean Corpuscular Volume 90.8 Mean Corpuscular Hemoglobin 25.8 L Mean Corpuscular Hemoglobin Concent 28.4 L Red Cell Distribution Width 18.0 H Platelet Count 464 H Mean Platelet Volume 9.9 Neutrophils % 85.4 H Lymphocytes % 3.6 L Monocytes % 5.8 Eosinophils % 1.0 Basophils % 0.2 Nucleated Red Blood Cells % 0.0 Neutrophils # 20.3 H Lymphocytes # 0.9 Monocytes # 1.4 H Eosinophils # 0.2 Basophils # 0.0 Nucleated Red Blood Cells # 0.0 Sodium Level 143 Potassium Level 3.7 Chloride Level 110 Carbon Dioxide Level 26 Anion Gap 11 Blood Urea Nitrogen 18 Creatinine 0.55 L Glucose Level 153 Calcium Level 9.7 Test 09/01/16 06:51 Bedside Glucose 142 Medications Current Medications Ondansetron HCl (Zofran Inj) 4 mg Q6H PRN IV NAUSEA AND/OR VOMITING Last administered on 08/15/16 05:11; Admin Dose 4 MG; Start 07/31/16 at 15:00 Morphine Sulfate (morphine) 2 mg Q4H PRN IV SEVERE PAIN LEVEL 7-10 Last administered on 09/01/16 05:04; Admin Dose 2 MG; Start 07/31/16 at 15:00 Magnesium Hydroxide (Milk Of Mag) 30 ml DAILY PRN PO CONSTIPATION; Start at 15:00 Sodium Biphosphate/ Sodium Phosphate (Fleet Enema) 133 ml DAILY PRN [place] CONSTIPATION; Start 07/31/16 at 15:00 Hydralazine HCl (Apresoline) 10 mg Q6H PRN IV ELEVATED BLOOD PRESSURE; Start at 15:00 Nitroglycerin (Nitroglycerin (Sl Tab) 0.4 Mg) 1 tab Q5M PRN SL ANGINA; Start at 15:00 Miscellaneous Information 1 ea NOTE XX ; Start 07/31/16 at 16:30 Glucose (Glutose) 15 gm Q15M PRN PO DECREASED GLUCOSE; Start 07/31/16 at 16:30 Glucose (Glutose) 22.5 gm Q15M PRN PO DECREASED GLUCOSE; Start 07/31/16 at 16: 30 Dextrose (D50w Syringe) 25 ml Q15M PRN IV DECREASED GLUCOSE; Start 07/31/16 at 16:30 Dextrose (D50w Syringe) 50 ml Q15M PRN IV DECREASED GLUCOSE; Start 07/31/16 at 16:30 Glucagon (Glucagen) 1 mg Q15M PRN IM DECREASED GLUCOSE; Start 07/31/16 at 16:30 Glucose (Glutose) 15 gm Q15M PRN BUCCAL DECREASED GLUCOSE; Start 07/31/16 at 16 :30 Sodium Hypochlorite (Dakin'S (1/4 Strength)) 1 applic BID IRR Last administered on 09/01/16 08:49; Admin Dose 1 APPLIC; Start 08/01/16 at 21:00 Zinc Sulfate (Zinc Sulfate) 220 mg DAILY GTB Last administered on 09/01/16 08: 41; Admin Dose 220 MG; Start 08/03/16 at 11:30 Multivitamins Therapeutic (Theragran) 1 tab DAILY PO Last administered on 08:41; Admin Dose 1 TAB; Start 08/03/16 at 11:30 Ascorbic Acid (Vitamin C) 500 mg BID GTB Last administered on 09/01/16 08:41; Admin Dose 500 MG; Start 08/03/16 at 11:30 Sodium Hypochlorite (Dakin'S (Dilute 1/40%)) 1 applic BID IRR Last administered on 09/01/16 08:49; Admin Dose 1 APPLIC; Start 08/04/16 at 12:00 Levothyroxine Sodium (Synthroid) 25 mcg DAILY@06 PO Last administered on 06:52; Admin Dose 25 MCG; Start 08/11/16 at 06:00 Paroxetine HCl (Paxil) 10 mg DAILY PO Last administered on 09/01/16 08:41; Admin Dose 10 MG; Start 08/11/16 at 21:00 Insulin Aspart (Novolog Insulin Pen) NOVOLOG *MODERATE* ALGORI... Q6 SC Last administered on 09/01/16 07:00; Admin Dose 2 UNIT; Start 08/13/16 at 00:00 Lactobacillus Acidoph/Bulgaricus (Floranex) 1 tab TID GTB Last administered on 09/01/16 12:44; Admin Dose 1 TAB; Start 08/15/16 at 21:30 Metformin HCl (Glucophage) 500 mg Q12 GTB Last administered on 08/27/16 08:54 ; Admin Dose 500 MG; Start 08/15/16 at 21:30; Status Future Hold Acetaminophen (Tylenol Tab) 650 mg Q6H PRN GTB PAIN AND OR ELEVATED TEMP Last administered on 08/28/16 14:46; Admin Dose 650 MG; Start 08/15/16 at 21:30 Magnesium Oxide (Mag-Ox 400) 400 mg DAILY GTB Last administered on 09/01/16 08: 41; Admin Dose 400 MG; Start 08/20/16 at 09:00 Enoxaparin Sodium (Lovenox) 40 mg DAILY SC Last administered on 09/01/16 08:43 ; Admin Dose 40 MG; Start 08/22/16 at 09:00 Famotidine (Pepcid) 20 mg DAILY GTB Last administered on 09/01/16 08:41; Admin Dose 20 MG; Start 08/22/16 at 09:00 Potassium Chloride (Potassium Chloride Pwd/Soln) 40 meq BID GTB Last administered on 09/01/16 08:48; Admin Dose 40 MEQ; Start 08/23/16 at 21:00 Nystatin 5 ml 5 ml QID PO Last administered on 09/01/16 12:44; Admin Dose 5 ML ; Start 08/25/16 at 17:00 Norepinephrine/ Dextrose (Levophed/D5W) 500 ml @ 1.87 mls/hr TITRATE IV Last administered on 08/28/16 10:46; Admin Dose 3.75 MLS/HR; Start 08/28/16 at 09:00 Midodrine (Proamatine) 10 mg TID@09,13,17 PO Last administered on 09/01/16 12: 44; Admin Dose 10 MG; Start 08/28/16 at 10:24 Metronidazole (Flagyl) 500 mg Q8 PO Last administered on 09/01/16 06:52; Admin Dose 500 MG; Start 08/29/16 at 14:00 Fentanyl 25 mcg 25 mcg Q3H PRN IV PAIN Last administered on 09/01/16 01:47; Admin Dose 25 MCG; Start 08/29/16 at 17:00 Meropenem 100 ml @ 200 mls/hr Q8 IVPB Last administered on 09/01/16 06:52; Admin Dose 200 MLS/HR; Start 08/30/16 at 14:00 Dextrose 1,000 ml @ 75 mls/hr [id number] IV Last administered on 09/01/16 05:06; Admin Dose 75 MLS/HR; Start 08/30/16 at 15:30 Colistimethate Sodium 75 mg/ Sodium Chloride 100 ml @ 200 mls/hr Q12 IVPB Last administered on 09/01/16 08:41; Admin Dose 200 MLS/HR; Start 08/31/16 at 21 :00 Linezolid (Zyvox 600mg/D5W (Pmx)) 300 ml @ 300 mls/hr Q12 IVPB Last administered on 09/01/16 08:41; Admin Dose 300 MLS/HR; Start 08/31/16 at 21:00 Assessment/Plan Additional Assessment/Plan IMP: 1. Septic Shock 2. Respiratory Failure 3. Multilobar HCAP 4. Quadriplegia 5. Anemia RECS: 1. Vent support 2. Titrate levophed gtt to MAP > 65 3. Abx per ID 4. TF/Free H2O 35 min cc time TRENT VEGA MD Sep 01, 2016 12:50
--- NOTE | 2016-09-01 13:23 | PN ---
Date/Time of Note Date/Time of Note DATE: 09/01/16 TIME: 13:19 Assessment/Plan VTE Prophylaxis VTE Prophylaxis Intervention: LMWH Lines/Catheters IV [facility]ACATH Urinary Cath still in place: Yes Reason Cath still needed: urinary retention Assessment/Plan Chief Complaint/Hosp Course ASSESSMENT AND PLAN: 46-year-old male sent in with fever and diaphoresis with findings of septic shock. 1) Sepsis/shock - sec to HCAP likely + decub ulcer infx's, now with shock - on pressor support. sp bronch/atb's. - continue abx, per ID - Meropenem, Tobra, and Flagyl, added Colistin and Zyvox, wean pressor support as tolerated - f/u ID, pulm, and and palliative care rec's - f/u cx results 2) Decubitus wound/ MDR organisms. Diverting colostomy & debridement may not be feasible while on vent. quality of life will not improve post therapy. - abx as above 3) Quadraplegia; poor prognosis; palliative care eval appreciated - for now pt is full code. Pt appears to be able to make decisions, but has said he still wants his brother to make decisions on his behalf if he cannot do so. Also, palliative team met with family as well. F/u rec's. 4) Ho C2 fracture - monitor 5) VDRF; cont vent, f/u pulm rec's 6) Ho c diff - monitor 7) Chr CHF/ systolic? - monitor 8) Past tobacco - monitor 9) Malnutrition; cont peg/feeds/free water. 10) Elevated Ca - improved today (nL) - monitor - if not improves or increases, consider endo consult? 11) hypernatremia - resolved now (149 -> 143) - monitor Critical care time spent with pt care today = 40 min. Problems: Subjective 24 Hr Interval Summary Free Text/Dictation Seen by ID team, changes made to abx, no acute events overnight. Exam/Review of Systems Vital Signs Vitals Vital Signs Date Time Temp Pulse Resp B/P Pulse Ox O2 Delivery O2 Flow Rate FiO2 09/01/16 12:00 99 09/01/16 08:00 50 09/01/16 06:30 24 115/76 97 09/01/16 04:00 98.3 09/01/16 00:00 Mechanical Ventilator Intake and Output 08/31/16 08/31/16 09/01/16 15:00 23:00 07:00 Intake Total 1168.7 ml 814.0 ml Output Total 580 ml 695 ml 825 ml Balance -580 ml 473.7 ml -11.0 ml Exam Gen: lying in bed, lethargic HEENT: PERRL/EOMI Neck: Trach c/d/i. no pallor. Positive thrush CV: Reg RR Res: Dimin bs bilat; port - no drainage GI: Bs + nt nd, no r/r/g. PEG c/d/i Ext- hypotonia. some edema. Wound dressed. Results Result Diagram: 09/01/16 0500 09/01/16 0500 Results 24 hrs Laboratory Tests Test 08/31/16 18:28 09/01/16 00:19 09/01/16 05:00 09/01/16 06:51 Bedside Glucose 165 188 142 White Blood Count 23.8 #H Red Blood Count 2.83 L Hemoglobin 7.3 L Hematocrit 25.7 L Mean Corpuscular Volume 90.8 Mean Corpuscular Hemoglobin 25.8 L Mean Corpuscular Hemoglobin Concent 28.4 L Red Cell Distribution Width 18.0 H Platelet Count 464 H Mean Platelet Volume 9.9 Neutrophils % 85.4 H Lymphocytes % 3.6 L Monocytes % 5.8 Eosinophils % 1.0 Basophils % 0.2 Nucleated Red Blood Cells % 0.0 Neutrophils # 20.3 H Lymphocytes # 0.9 Monocytes # 1.4 H Eosinophils # 0.2 Basophils # 0.0 Nucleated Red Blood Cells # 0.0 Sodium Level 143 Potassium Level 3.7 Chloride Level 110 Carbon Dioxide Level 26 Anion Gap 11 Blood Urea Nitrogen 18 Creatinine 0.55 L Glucose Level 153 Calcium Level 9.7 Test 09/01/16 12:45 Bedside Glucose 123 Medications Medications Current Medications Ondansetron HCl (Zofran Inj) 4 mg Q6H PRN IV NAUSEA AND/OR VOMITING Last administered on 08/15/16 05:11; Admin Dose 4 MG; Start 07/31/16 at 15:00 Morphine Sulfate (morphine) 2 mg Q4H PRN IV SEVERE PAIN LEVEL 7-10 Last administered on 09/01/16 05:04; Admin Dose 2 MG; Start 07/31/16 at 15:00 Magnesium Hydroxide (Milk Of Mag) 30 ml DAILY PRN PO CONSTIPATION; Start at 15:00 Sodium Biphosphate/ Sodium Phosphate (Fleet Enema) 133 ml DAILY PRN [place] CONSTIPATION; Start 07/31/16 at 15:00 Hydralazine HCl (Apresoline) 10 mg Q6H PRN IV ELEVATED BLOOD PRESSURE; Start at 15:00 Nitroglycerin (Nitroglycerin (Sl Tab) 0.4 Mg) 1 tab Q5M PRN SL ANGINA; Start at 15:00 Miscellaneous Information 1 ea NOTE XX ; Start 07/31/16 at 16:30 Glucose (Glutose) 15 gm Q15M PRN PO DECREASED GLUCOSE; Start 07/31/16 at 16:30 Glucose (Glutose) 22.5 gm Q15M PRN PO DECREASED GLUCOSE; Start 07/31/16 at 16: 30 Dextrose (D50w Syringe) 25 ml Q15M PRN IV DECREASED GLUCOSE; Start 07/31/16 at 16:30 Dextrose (D50w Syringe) 50 ml Q15M PRN IV DECREASED GLUCOSE; Start 07/31/16 at 16:30 Glucagon (Glucagen) 1 mg Q15M PRN IM DECREASED GLUCOSE; Start 07/31/16 at 16:30 Glucose (Glutose) 15 gm Q15M PRN BUCCAL DECREASED GLUCOSE; Start 07/31/16 at 16 :30 Sodium Hypochlorite (Dakin'S (1/4 Strength)) 1 applic BID IRR Last administered on 09/01/16 08:49; Admin Dose 1 APPLIC; Start 08/01/16 at 21:00 Zinc Sulfate (Zinc Sulfate) 220 mg DAILY GTB Last administered on 09/01/16 08: 41; Admin Dose 220 MG; Start 08/03/16 at 11:30 Multivitamins Therapeutic (Theragran) 1 tab DAILY PO Last administered on 08:41; Admin Dose 1 TAB; Start 08/03/16 at 11:30 Ascorbic Acid (Vitamin C) 500 mg BID GTB Last administered on 09/01/16 08:41; Admin Dose 500 MG; Start 08/03/16 at 11:30 Sodium Hypochlorite (Dakin'S (Dilute 1/40%)) 1 applic BID IRR Last administered on 09/01/16 08:49; Admin Dose 1 APPLIC; Start 08/04/16 at 12:00 Levothyroxine Sodium (Synthroid) 25 mcg DAILY@06 PO Last administered on 06:52; Admin Dose 25 MCG; Start 08/11/16 at 06:00 Paroxetine HCl (Paxil) 10 mg DAILY PO Last administered on 09/01/16 08:41; Admin Dose 10 MG; Start 08/11/16 at 21:00 Insulin Aspart (Novolog Insulin Pen) NOVOLOG *MODERATE* ALGORI... Q6 SC Last administered on 09/01/16 07:00; Admin Dose 2 UNIT; Start 08/13/16 at 00:00 Lactobacillus Acidoph/Bulgaricus (Floranex) 1 tab TID GTB Last administered on 09/01/16 12:44; Admin Dose 1 TAB; Start 08/15/16 at 21:30 Metformin HCl (Glucophage) 500 mg Q12 GTB Last administered on 08/27/16 08:54 ; Admin Dose 500 MG; Start 08/15/16 at 21:30; Status Future Hold Acetaminophen (Tylenol Tab) 650 mg Q6H PRN GTB PAIN AND OR ELEVATED TEMP Last administered on 08/28/16 14:46; Admin Dose 650 MG; Start 08/15/16 at 21:30 Magnesium Oxide (Mag-Ox 400) 400 mg DAILY GTB Last administered on 09/01/16 08: 41; Admin Dose 400 MG; Start 08/20/16 at 09:00 Enoxaparin Sodium (Lovenox) 40 mg DAILY SC Last administered on 09/01/16 08:43 ; Admin Dose 40 MG; Start 08/22/16 at 09:00 Famotidine (Pepcid) 20 mg DAILY GTB Last administered on 09/01/16 08:41; Admin Dose 20 MG; Start 08/22/16 at 09:00 Potassium Chloride (Potassium Chloride Pwd/Soln) 40 meq BID GTB Last administered on 09/01/16 08:48; Admin Dose 40 MEQ; Start 08/23/16 at 21:00 Nystatin 5 ml 5 ml QID PO Last administered on 09/01/16 12:44; Admin Dose 5 ML ; Start 08/25/16 at 17:00 Norepinephrine/ Dextrose (Levophed/D5W) 500 ml @ 1.87 mls/hr TITRATE IV Last administered on 08/28/16 10:46; Admin Dose 3.75 MLS/HR; Start 08/28/16 at 09:00 Midodrine (Proamatine) 10 mg TID@09,13,17 PO Last administered on 09/01/16 12: 44; Admin Dose 10 MG; Start 08/28/16 at 10:24 Metronidazole (Flagyl) 500 mg Q8 PO Last administered on 09/01/16 06:52; Admin Dose 500 MG; Start 08/29/16 at 14:00 Fentanyl 25 mcg 25 mcg Q3H PRN IV PAIN Last administered on 09/01/16 01:47; Admin Dose 25 MCG; Start 08/29/16 at 17:00 Meropenem 100 ml @ 200 mls/hr Q8 IVPB Last administered on 09/01/16 06:52; Admin Dose 200 MLS/HR; Start 08/30/16 at 14:00 Dextrose 1,000 ml @ 75 mls/hr [id number] IV Last administered on 09/01/16 05:06; Admin Dose 75 MLS/HR; Start 08/30/16 at 15:30 Colistimethate Sodium 75 mg/ Sodium Chloride 100 ml @ 200 mls/hr Q12 IVPB Last administered on 09/01/16 08:41; Admin Dose 200 MLS/HR; Start 08/31/16 at 21 :00 Linezolid (Zyvox 600mg/D5W (Pmx)) 300 ml @ 300 mls/hr Q12 IVPB Last administered on 09/01/16 08:41; Admin Dose 300 MLS/HR; Start 08/31/16 at 21:00 DARON FARRELL Sep 01, 2016 13:23
--- NOTE | 2016-09-01 14:18 | PN ---
DATE: 09/01/2016 SUBJECTIVE: Patient is doing better today. He is more awake, less tachycardic and off pressors. No fevers. WBC today 23.8, H and H 7.3 and 25.7, platelets 464, neutrophils 85.4, BUN 18, creatinine 0.55. INDWELLINGS: Trach, PEG, Oliveira, left chest Port-A-Cath. ANTIMICROBIALS: 1. Zyvox. 2. Colistin. 3. Tobramycin inhalation. 4. Meropenem. 5. Flagyl. PHYSICAL EXAMINATION: GENERAL: This is a chronically ill appearing, wasted, middle-aged man who is in no distress. HEENT: Atraumatic, normocephalic. Sclerae anicteric. Buccal mucosa dry. NECK: Supple. Tracheostomy present. CHEST: Symmetrical. Breath sounds diminished at bases. HEART: S1, S2. ABDOMEN: Soft, bowel sounds present. EXTREMITIES: Without cyanosis. Bilateral edema. ASSESSMENT 1. Severe sepsis with shock. 2. Multiple chronic decubiti with culture growing multidrug resistant organisms. 3. Healthcare-associated pneumonia. 4. Status post urinary tract infection. 5. Chronic respiratory failure. 6. Quadriplegia secondary to a cervical spine injury. 7. Anemia. PLAN: The patient remains stable off pressors. White blood cell count tracing down. Continue present care. Antibiotics, local wound care. Dictated By: LESLIE FERRARO [employer] MA[employer]GER for [employer]NANDE[employer]OTT[employer] Conf#: [id number] DID#: [id number] MTDD
[2016-09-01] MEDS: ACETAMINOPHEN 325 MG TAB GTB PRN (22:36)
[2016-09-01] MEDS: ALBUTEROL/IPRATROPIUM (NEB) 3 ML AMP HHN PRN (23:30)
[2016-09-02] VITALS (35 sets, daily range): BP systolic 78–124; BP diastolic 51–87; PULSE 89–124; RESP 24–25
[2016-09-02] MEDS: morphine 2 MG INJ IV PRN ×3 (00:12→15:43)
[2016-09-02] MEDS: DEXTROSE 5% 1,000 ML IV SCH ×2 (00:15→22:18)
[2016-09-02 04:56] LABS: ADD SCAN DIFF NO
[2016-09-02 05:12] LABS: BASOPHIL # 0.1 10^3/ul (0.0-0.1); BASOPHILS % 0.2 % (0.0-2.0); EOSINOPHILS # 0.4 10^3/ul (0.0-0.5); EOSINOPHILS % 1.9 % (0.0-7.0); HEMATOCRIT 24.5 % (42.0-52.0); HEMOGLOBIN 7.3 g/dl (14.0-18.0); LYMPHOCYTES # 0.9 10^3/ul (0.8-2.9); LYMPHOCYTES % 4.2 % (15.0-51.0); MEAN CORPUSCULAR HEMOGLOBIN 26.7 pg (29.0-33.0); MEAN CORPUSCULAR HGB CONC 29.8 g/dl (32.0-37.0); MEAN CORPUSCULAR VOLUME 89.7 fl (82.0-101.0); MEAN PLATELET VOLUME 9.3 fl (7.4-10.4); MONOCYTES % 4.6 % (0.0-11.0); NEUTROPHIL # 18.2 10^3/ul (1.6-7.5); NEUTROPHILS % 85.2 % (39.0-77.0); PLATELET COUNT 436 10^3/UL (140-415); RED BLOOD COUNT 2.73 10^6/ul (4.70-6.10); WHITE BLOOD COUNT 21.4 10^3/ul (4.8-10.8)
[2016-09-02 05:39] LABS: POTASSIUM 3.8 mmol/L (3.5-5.1)
[2016-09-02 05:41] LABS: CREATININE 0.51 mg/dl (0.61-1.24)
[2016-09-02 05:42] LABS: CALCIUM 9.1 mg/dl (8.4-10.2)
[2016-09-02] MEDS: INSULIN ASPART [NOVOLOG] 3 ML PEN SC SCH ×4 (06:00→18:00)
[2016-09-02] MEDS: LEVOTHYROXINE 25 MCG TAB PO SCH (06:22)
[2016-09-02] MEDS: MEROPENEM 500 MG/100 ML (PMX) 100 ML IVPB SCH ×3 (06:22→20:42)
[2016-09-02] MEDS: metroNIDAZOLE 500 MG TAB PO SCH ×3 (06:22→22:16)
[2016-09-02] MEDS: ACETAMINOPHEN 325 MG TAB GTB PRN ×2 (06:38→21:47)
[2016-09-02] MEDS: ALBUTEROL HFA 8 GM INHALER INH SCH ×2 (08:07→16:58)
[2016-09-02] MEDS: TOBRAMYCIN/0.25NS 300 MG/5 ML INHAL NEB SCH ×2 (08:07→20:26)
[2016-09-02] MEDS: LACTOBACILLUS CHEW TAB GTB SCH ×3 (08:52→20:42)
[2016-09-02] MEDS: MAGNESIUM OXIDE 400 MG TAB GTB SCH (08:53)
[2016-09-02] MEDS: ASCORBIC ACID 500 MG TAB GTB SCH ×2 (08:53→20:42)
[2016-09-02] MEDS: PAROXETINE 10 MG TAB PO SCH (08:53)
[2016-09-02] MEDS: COLISTIMETHATE 75 MG in SOD CHLORIDE 0.9% 100 ML IVPB SCH ×2 (08:53→21:38)
[2016-09-02] MEDS: MULTIVITAMINS THERAPEUTIC TAB PO SCH (08:53)
[2016-09-02] MEDS: SODIUM HYPOCHLORITE 1/40% 1L IRRIG IRR SCH ×2 (08:53→20:43)
[2016-09-02] MEDS: MIDODRINE 5 MG TAB PO SCH ×3 (08:53→17:47)
[2016-09-02] MEDS: ZINC SULFATE 220 MG CAP GTB SCH (08:53)
[2016-09-02] MEDS: NYSTATIN SUSP 5 ML CUP PO SCH ×4 (08:53→20:42)
[2016-09-02] MEDS: FAMOTIDINE 20 MG TAB GTB SCH (08:53)
[2016-09-02] MEDS: POTASSIUM CHLORIDE 20 MEQ POWDER FOR ORAL SOLN GTB SCH ×2 (08:54→20:42)
[2016-09-02] MEDS: SODIUM HYPOCHLORITE 0.125% 473 ML BTL IRR SCH ×2 (08:54→20:46)
[2016-09-02] MEDS: LINEZOLID 600 MG/D5W (PMX) 300 ML IVPB SCH ×2 (08:55→20:44)
[2016-09-02] MEDS: ENOXAPARIN 40 MG/0.4 ML SYG SC SCH (08:55)
[2016-09-02] MEDS: FENTAnyl 50 MCG/ML VIAL IV PRN (08:58)
--- NOTE | 2016-09-02 11:36 | PN ---
Date/Time of Note Date/Time of Note DATE: 09/02/16 TIME: 11:35 Assessment/Plan VTE Prophylaxis VTE Prophylaxis Intervention: LMWH Lines/Catheters IV Catheter Type (from Nrs): Portacath Urinary Cath still in place: Yes Reason Cath still needed: urinary retention Assessment/Plan Chief Complaint/Hosp Course ASSESSMENT AND PLAN: 46-year-old male sent in with fever and diaphoresis with findings of septic shock. 1) Sepsis/shock - sec to HCAP likely + decub ulcer infx's, now with shock - on pressor support. sp bronch/atb's. - continue abx, per ID - Meropenem, Tobra, and Flagyl, added Colistin and Zyvox, wean pressor support as tolerated - f/u ID, pulm, and and palliative care rec's - f/u cx results 2) Decubitus wound/ MDR organisms. Diverting colostomy & debridement may not be feasible while on vent. quality of life will not improve post therapy. - abx as above 3) Quadraplegia; poor prognosis; palliative care eval appreciated - for now pt is full code. Pt appears to be able to make decisions, but has said he still wants his brother to make decisions on his behalf if he cannot do so. Also, palliative team met with family as well. F/u rec's. 4) Ho C2 fracture - monitor 5) VDRF; cont vent, f/u pulm rec's 6) Ho c diff - monitor 7) Chr CHF/ systolic? - monitor 8) Past tobacco - monitor 9) Malnutrition; cont peg/feeds/free water. 10) Elevated Ca - improved today (nL) - monitor - if not improves or increases, consider endo consult? 11) hypernatremia - resolved now - monitor Critical care time spent with pt care today = 40 min. Problems: Subjective 24 Hr Interval Summary Free Text/Dictation Pt a bit more alert today, asking for breathing tx. Exam/Review of Systems Vital Signs Vitals Vital Signs Date Time Temp Pulse Resp B/P Pulse Ox O2 Delivery O2 Flow Rate FiO2 09/02/16 08:00 96 09/02/16 06:00 24 93/61 97 09/02/16 05:36 50 09/02/16 04:00 97.9 09/01/16 20:00 Mechanical Ventilator Intake and Output 09/01/16 09/01/16 09/02/16 15:00 23:00 07:00 Intake Total 200 ml 320 ml 625 ml Output Total 925 ml 635 ml 695 ml Balance -725 ml -315 ml -70 ml Exam Gen: lying in bed, lethargic HEENT: PERRL/EOMI Neck: Trach c/d/i. no pallor. Positive thrush CV: Reg RR Res: Dimin bs bilat; port - no drainage GI: Bs + nt nd, no r/r/g. PEG c/d/i Ext- hypotonia. some edema. Wound dressed. Results Result Diagram: 09/02/1642909/02/16429 Results 24 hrs Laboratory Tests Test 09/01/16 12:45 09/01/16 17:45 09/02/16 00:23 09/02/16 04:30 Bedside Glucose 123 120 128 White Blood Count 21.4 H Red Blood Count 2.73 L Hemoglobin 7.3 L Hematocrit 24.5 L Mean Corpuscular Volume 89.7 Mean Corpuscular Hemoglobin 26.7 L Mean Corpuscular Hemoglobin Concent 29.8 L Red Cell Distribution Width 18.0 H Platelet Count 436 H Mean Platelet Volume 9.3 Neutrophils % 85.2 H Lymphocytes % 4.2 L Monocytes % 4.6 Eosinophils % 1.9 Basophils % 0.2 Nucleated Red Blood Cells % 0.0 Neutrophils # 18.2 H Lymphocytes # 0.9 Monocytes # 1.0 H Eosinophils # 0.4 Basophils # 0.1 Nucleated Red Blood Cells # 0.0 Sodium Level 136 Potassium Level 3.8 Chloride Level 107 Carbon Dioxide Level 26 Anion Gap 7 L Blood Urea Nitrogen 17 Creatinine 0.51 L Glucose Level 154 Calcium Level 9.1 Test 09/02/16 06:32 Bedside Glucose 132 Medications Medications Current Medications Ondansetron HCl (Zofran Inj) 4 mg Q6H PRN IV NAUSEA AND/OR VOMITING Last administered on 08/15/16 05:11; Admin Dose 4 MG; Start 07/31/16 at 15:00 Morphine Sulfate (morphine) 2 mg Q4H PRN IV SEVERE PAIN LEVEL 7-10 Last administered on 09/02/16 11:16; Admin Dose 2 MG; Start 07/31/16 at 15:00 Magnesium Hydroxide (Milk Of Mag) 30 ml DAILY PRN PO CONSTIPATION; Start at 15:00 Sodium Biphosphate/ Sodium Phosphate (Fleet Enema) 133 ml DAILY PRN [place] CONSTIPATION; Start 07/31/16 at 15:00 Hydralazine HCl (Apresoline) 10 mg Q6H PRN IV ELEVATED BLOOD PRESSURE; Start at 15:00 Nitroglycerin (Nitroglycerin (Sl Tab) 0.4 Mg) 1 tab Q5M PRN SL ANGINA; Start at 15:00 Miscellaneous Information 1 ea NOTE XX ; Start 07/31/16 at 16:30 Glucose (Glutose) 15 gm Q15M PRN PO DECREASED GLUCOSE; Start 07/31/16 at 16:30 Glucose (Glutose) 22.5 gm Q15M PRN PO DECREASED GLUCOSE; Start 07/31/16 at 16: 30 Dextrose (D50w Syringe) 25 ml Q15M PRN IV DECREASED GLUCOSE; Start 07/31/16 at 16:30 Dextrose (D50w Syringe) 50 ml Q15M PRN IV DECREASED GLUCOSE; Start 07/31/16 at 16:30 Glucagon (Glucagen) 1 mg Q15M PRN IM DECREASED GLUCOSE; Start 07/31/16 at 16:30 Glucose (Glutose) 15 gm Q15M PRN BUCCAL DECREASED GLUCOSE; Start 07/31/16 at 16 :30 Sodium Hypochlorite (Dakin'S (1/4 Strength)) 1 applic BID IRR Last administered on 09/02/16 08:54; Admin Dose 1 APPLIC; Start 08/01/16 at 21:00 Zinc Sulfate (Zinc Sulfate) 220 mg DAILY GTB Last administered on 09/02/16 08: 53; Admin Dose 220 MG; Start 08/03/16 at 11:30 Multivitamins Therapeutic (Theragran) 1 tab DAILY PO Last administered on 08:53; Admin Dose 1 TAB; Start 08/03/16 at 11:30 Ascorbic Acid (Vitamin C) 500 mg BID GTB Last administered on 09/02/16 08:53; Admin Dose 500 MG; Start 08/03/16 at 11:30 Sodium Hypochlorite (Dakin'S (Dilute 1/40%)) 1 applic BID IRR Last administered on 09/02/16 08:53; Admin Dose 1 APPLIC; Start 08/04/16 at 12:00 Levothyroxine Sodium (Synthroid) 25 mcg DAILY@06 PO Last administered on 06:22; Admin Dose 25 MCG; Start 08/11/16 at 06:00 Paroxetine HCl (Paxil) 10 mg DAILY PO Last administered on 09/02/16 08:53; Admin Dose 10 MG; Start 08/11/16 at 21:00 Insulin Aspart (Novolog Insulin Pen) NOVOLOG *MODERATE* ALGORI... Q6 SC Last administered on 09/01/16 07:00; Admin Dose 2 UNIT; Start 08/13/16 at 00:00 Lactobacillus Acidoph/Bulgaricus (Floranex) 1 tab TID GTB Last administered on 09/02/16 08:52; Admin Dose 1 TAB; Start 08/15/16 at 21:30 Metformin HCl (Glucophage) 500 mg Q12 GTB Last administered on 08/27/16 08:54 ; Admin Dose 500 MG; Start 08/15/16 at 21:30; Status Future Hold Acetaminophen (Tylenol Tab) 650 mg Q6H PRN GTB PAIN AND OR ELEVATED TEMP Last administered on 09/02/16 06:38; Admin Dose 650 MG; Start 08/15/16 at 21:30 Magnesium Oxide (Mag-Ox 400) 400 mg DAILY GTB Last administered on 09/02/16 08: 53; Admin Dose 400 MG; Start 08/20/16 at 09:00 Enoxaparin Sodium (Lovenox) 40 mg DAILY SC Last administered on 09/02/16 08:55 ; Admin Dose 40 MG; Start 08/22/16 at 09:00 Famotidine (Pepcid) 20 mg DAILY GTB Last administered on 09/02/16 08:53; Admin Dose 20 MG; Start 08/22/16 at 09:00 Potassium Chloride (Potassium Chloride Pwd/Soln) 40 meq BID GTB Last administered on 09/02/16 08:54; Admin Dose 40 MEQ; Start 08/23/16 at 21:00 Nystatin 5 ml 5 ml QID PO Last administered on 09/02/16 08:53; Admin Dose 5 ML ; Start 08/25/16 at 17:00 Norepinephrine/ Dextrose (Levophed/D5W) 500 ml @ 1.87 mls/hr TITRATE IV Last administered on 08/28/16 10:46; Admin Dose 3.75 MLS/HR; Start 08/28/16 at 09:00 Midodrine (Proamatine) 10 mg TID@09,13,17 PO Last administered on 09/02/16 08: 53; Admin Dose 10 MG; Start 08/28/16 at 10:24 Metronidazole (Flagyl) 500 mg Q8 PO Last administered on 09/02/16 06:22; Admin Dose 500 MG; Start 08/29/16 at 14:00 Fentanyl 25 mcg 25 mcg Q3H PRN IV PAIN Last administered on 09/02/16 08:58; Admin Dose 25 MCG; Start 08/29/16 at 17:00 Dextrose 1,000 ml @ 75 mls/hr [id number] IV Last administered on 09/02/16 00:15; Admin Dose 75 MLS/HR; Start 08/30/16 at 15:30 Colistimethate Sodium 75 mg/ Sodium Chloride 100 ml @ 200 mls/hr Q12 IVPB Last administered on 09/02/16 08:53; Admin Dose 200 MLS/HR; Start 08/31/16 at 21 :00 Linezolid 300 ml @ 300 mls/hr Q12 IVPB Last administered on 09/02/16 08:55; Admin Dose 300 MLS/HR; Start 08/31/16 at 21:00 Meropenem (Merrem 500 Mg/ 100 ml (Pmx)) 100 ml @ 200 mls/hr Q8H IVPB Last administered on 09/02/16 06:22; Admin Dose 200 MLS/HR; Start 09/01/16 at 20:00 DARON FARRELL Sep 02, 2016 11:36
--- NOTE | 2016-09-02 12:11 | CONS ---
Date/Time of Note Date/Time of Note DATE: 09/02/16 TIME: 12:08 Consult Date/Type/Reason Admit Date/Time Jul 31, 2016 at 14:20 Initial Consult Date Type of Consultation: Pulm/CCM Subjective No events. Remains on pressors on vent. Objective Vital Signs Date Time Temp Pulse Resp B/P Pulse Ox O2 Delivery O2 Flow Rate FiO2 09/02/16 08:00 40 09/02/16 08:00 96 09/02/16 06:00 24 93/61 97 09/02/16 04:00 97.9 09/01/16 20:00 Mechanical Ventilator Intake and Output 09/01/16 09/01/16 09/02/16 15:00 23:00 07:00 Intake Total 200 ml 320 ml 625 ml Output Total 925 ml 635 ml 695 ml Balance -725 ml -315 ml -70 ml Exam HEENT: Neck supple; no JVD; no LAD; on vent. CVS: RRR, S1 and S2 CHEST: Coarse rhonchi b/l ABD: Soft, NT, + BS EXT: contractures; + edema; + decubs Results/Medications Result Diagram: 09/02/16 0430 09/02/16 0430 Results 24 hrs Laboratory Tests Test 09/01/16 12:45 09/01/16 17:45 09/02/16 00:23 09/02/16 04:30 Bedside Glucose 123 120 128 White Blood Count 21.4 H Red Blood Count 2.73 L Hemoglobin 7.3 L Hematocrit 24.5 L Mean Corpuscular Volume 89.7 Mean Corpuscular Hemoglobin 26.7 L Mean Corpuscular Hemoglobin Concent 29.8 L Red Cell Distribution Width 18.0 H Platelet Count 436 H Mean Platelet Volume 9.3 Neutrophils % 85.2 H Lymphocytes % 4.2 L Monocytes % 4.6 Eosinophils % 1.9 Basophils % 0.2 Nucleated Red Blood Cells % 0.0 Neutrophils # 18.2 H Lymphocytes # 0.9 Monocytes # 1.0 H Eosinophils # 0.4 Basophils # 0.1 Nucleated Red Blood Cells # 0.0 Sodium Level 136 Potassium Level 3.8 Chloride Level 107 Carbon Dioxide Level 26 Anion Gap 7 L Blood Urea Nitrogen 17 Creatinine 0.51 L Glucose Level 154 Calcium Level 9.1 Test 09/02/16 06:32 Bedside Glucose 132 Medications Current Medications Ondansetron HCl (Zofran Inj) 4 mg Q6H PRN IV NAUSEA AND/OR VOMITING Last administered on 08/15/16 05:11; Admin Dose 4 MG; Start 07/31/16 at 15:00 Morphine Sulfate (morphine) 2 mg Q4H PRN IV SEVERE PAIN LEVEL 7-10 Last administered on 09/02/16 11:16; Admin Dose 2 MG; Start 07/31/16 at 15:00 Magnesium Hydroxide (Milk Of Mag) 30 ml DAILY PRN PO CONSTIPATION; Start at 15:00 Sodium Biphosphate/ Sodium Phosphate (Fleet Enema) 133 ml DAILY PRN [place] CONSTIPATION; Start 07/31/16 at 15:00 Hydralazine HCl (Apresoline) 10 mg Q6H PRN IV ELEVATED BLOOD PRESSURE; Start at 15:00 Nitroglycerin (Nitroglycerin (Sl Tab) 0.4 Mg) 1 tab Q5M PRN SL ANGINA; Start at 15:00 Miscellaneous Information 1 ea NOTE XX ; Start 07/31/16 at 16:30 Glucose (Glutose) 15 gm Q15M PRN PO DECREASED GLUCOSE; Start 07/31/16 at 16:30 Glucose (Glutose) 22.5 gm Q15M PRN PO DECREASED GLUCOSE; Start 07/31/16 at 16: 30 Dextrose (D50w Syringe) 25 ml Q15M PRN IV DECREASED GLUCOSE; Start 07/31/16 at 16:30 Dextrose (D50w Syringe) 50 ml Q15M PRN IV DECREASED GLUCOSE; Start 07/31/16 at 16:30 Glucagon (Glucagen) 1 mg Q15M PRN IM DECREASED GLUCOSE; Start 07/31/16 at 16:30 Glucose (Glutose) 15 gm Q15M PRN BUCCAL DECREASED GLUCOSE; Start 07/31/16 at 16 :30 Sodium Hypochlorite (Dakin'S (1/4 Strength)) 1 applic BID IRR Last administered on 09/02/16 08:54; Admin Dose 1 APPLIC; Start 08/01/16 at 21:00 Zinc Sulfate (Zinc Sulfate) 220 mg DAILY GTB Last administered on 09/02/16 08: 53; Admin Dose 220 MG; Start 08/03/16 at 11:30 Multivitamins Therapeutic (Theragran) 1 tab DAILY PO Last administered on 08:53; Admin Dose 1 TAB; Start 08/03/16 at 11:30 Ascorbic Acid (Vitamin C) 500 mg BID GTB Last administered on 09/02/16 08:53; Admin Dose 500 MG; Start 08/03/16 at 11:30 Sodium Hypochlorite (Dakin'S (Dilute 1/40%)) 1 applic BID IRR Last administered on 09/02/16 08:53; Admin Dose 1 APPLIC; Start 08/04/16 at 12:00 Levothyroxine Sodium (Synthroid) 25 mcg DAILY@06 PO Last administered on 06:22; Admin Dose 25 MCG; Start 08/11/16 at 06:00 Paroxetine HCl (Paxil) 10 mg DAILY PO Last administered on 09/02/16 08:53; Admin Dose 10 MG; Start 08/11/16 at 21:00 Insulin Aspart (Novolog Insulin Pen) NOVOLOG *MODERATE* ALGORI... Q6 SC Last administered on 09/01/16 07:00; Admin Dose 2 UNIT; Start 08/13/16 at 00:00 Lactobacillus Acidoph/Bulgaricus (Floranex) 1 tab TID GTB Last administered on 09/02/16 08:52; Admin Dose 1 TAB; Start 08/15/16 at 21:30 Metformin HCl (Glucophage) 500 mg Q12 GTB Last administered on 08/27/16 08:54 ; Admin Dose 500 MG; Start 08/15/16 at 21:30; Status Future Hold Acetaminophen (Tylenol Tab) 650 mg Q6H PRN GTB PAIN AND OR ELEVATED TEMP Last administered on 09/02/16 06:38; Admin Dose 650 MG; Start 08/15/16 at 21:30 Magnesium Oxide (Mag-Ox 400) 400 mg DAILY GTB Last administered on 09/02/16 08: 53; Admin Dose 400 MG; Start 08/20/16 at 09:00 Enoxaparin Sodium (Lovenox) 40 mg DAILY SC Last administered on 09/02/16 08:55 ; Admin Dose 40 MG; Start 08/22/16 at 09:00 Famotidine (Pepcid) 20 mg DAILY GTB Last administered on 09/02/16 08:53; Admin Dose 20 MG; Start 08/22/16 at 09:00 Potassium Chloride (Potassium Chloride Pwd/Soln) 40 meq BID GTB Last administered on 09/02/16 08:54; Admin Dose 40 MEQ; Start 08/23/16 at 21:00 Nystatin 5 ml 5 ml QID PO Last administered on 09/02/16 08:53; Admin Dose 5 ML ; Start 08/25/16 at 17:00 Norepinephrine/ Dextrose (Levophed/D5W) 500 ml @ 1.87 mls/hr TITRATE IV Last administered on 08/28/16 10:46; Admin Dose 3.75 MLS/HR; Start 08/28/16 at 09:00 Midodrine (Proamatine) 10 mg TID@09,13,17 PO Last administered on 09/02/16 08: 53; Admin Dose 10 MG; Start 08/28/16 at 10:24 Metronidazole (Flagyl) 500 mg Q8 PO Last administered on 09/02/16 06:22; Admin Dose 500 MG; Start 08/29/16 at 14:00 Fentanyl 25 mcg 25 mcg Q3H PRN IV PAIN Last administered on 09/02/16 08:58; Admin Dose 25 MCG; Start 08/29/16 at 17:00 Dextrose 1,000 ml @ 75 mls/hr [id number] IV Last administered on 09/02/16 00:15; Admin Dose 75 MLS/HR; Start 08/30/16 at 15:30 Colistimethate Sodium 75 mg/ Sodium Chloride 100 ml @ 200 mls/hr Q12 IVPB Last administered on 09/02/16 08:53; Admin Dose 200 MLS/HR; Start 08/31/16 at 21 :00 Linezolid 300 ml @ 300 mls/hr Q12 IVPB Last administered on 09/02/16 08:55; Admin Dose 300 MLS/HR; Start 08/31/16 at 21:00 Meropenem (Merrem 500 Mg/ 100 ml (Pmx)) 100 ml @ 200 mls/hr Q8H IVPB Last administered on 09/02/16 06:22; Admin Dose 200 MLS/HR; Start 09/01/16 at 20:00 Assessment/Plan Additional Assessment/Plan IMP: 1. Septic Shock--due to HCAP 2. Respiratory Failure 3. Multilobar HCAP 4. Quadriplegia 5. Anemia RECS: 1. Vent support 2. Titrate levophed gtt to MAP > 65 3. Abx per ID 4. TF/Free H2O 5. Transfuse once Hgb < 7 6. Am CXR 35 min cc time TRENT VEGA MD Sep 02, 2016 12:11
[2016-09-02 12:42] LABS: IRON 22 ug/dl (35-150)
[2016-09-02 12:52] LABS: TOTAL IRON BINDING CAPACITY 128 ug/dl (241-421)
--- NOTE | 2016-09-02 13:33 | CONS ---
Date/Time of Note Date/Time of Note DATE: 09/02/16 TIME: 13:32 Assessment/Plan Assessment/Plan Additional Assessment/Plan Septic shock Acute decompensated systolic congestive heart failure Sinus tachycardia C2 fracture and quadriplegic Respiratory failure Cardiomyopathy with ejection fraction 50% via echo on previous admission Decubiti Hypotension -Patient off IV pressor, currently on IV fluids. Would recommend decrease dosing of IV fluids as blood pressure tolerates given evidence of worsening edema and pulmonary congestion. If blood pressure remains stable, would consider reinitiation of IV diuretics. Consultation Date/Type/Reason Admit Date/Time Jul 31, 2016 at 14:20 Type of Consultation: cv 24 HR Interval Summary Free Text/Dictation Patient denies chest pain, shortness of breath. Complains of anxiety and wants to "made comfortable" Exam/Review of Systems Vital Signs Vitals Vital Signs Date Time Temp Pulse Resp B/P Pulse Ox O2 Delivery O2 Flow Rate FiO2 09/02/16 12:00 106 09/02/16 08:00 40 09/02/16 06:00 24 93/61 97 09/02/16 04:00 97.9 09/01/16 20:00 Mechanical Ventilator Intake and Output 09/01/16 09/01/16 09/02/16 15:00 23:00 07:00 Intake Total 200 ml 320 ml 625 ml Output Total 925 ml 635 ml 695 ml Balance -725 ml -315 ml -70 ml Exam No apparent distress Constitutional: alert, frail, oriented Neck: other (Tracheostomy) Respiratory: crackles/rales, other (Coarse breath sounds, no wheezing) Cardiovascular: other (S1-S2 heard), regular rate and rhythm Gastrointestinal: bowel sounds, non-tender, other (No guarding), soft Extremities: edema, other (No cyanosis) Results Result Diagram: 09/02/16 0430 09/02/16 0430 Results 24 hrs Laboratory Tests Test 09/01/16 17:45 09/02/16 00:23 09/02/16 04:30 09/02/16 06:32 Bedside Glucose 120 128 132 White Blood Count 21.4 H Red Blood Count 2.73 L Hemoglobin 7.3 L Hematocrit 24.5 L Mean Corpuscular Volume 89.7 Mean Corpuscular Hemoglobin 26.7 L Mean Corpuscular Hemoglobin Concent 29.8 L Red Cell Distribution Width 18.0 H Platelet Count 436 H Mean Platelet Volume 9.3 Neutrophils % 85.2 H Lymphocytes % 4.2 L Monocytes % 4.6 Eosinophils % 1.9 Basophils % 0.2 Nucleated Red Blood Cells % 0.0 Neutrophils # 18.2 H Lymphocytes # 0.9 Monocytes # 1.0 H Eosinophils # 0.4 Basophils # 0.1 Nucleated Red Blood Cells # 0.0 Sodium Level 136 Potassium Level 3.8 Chloride Level 107 Carbon Dioxide Level 26 Anion Gap 7 L Blood Urea Nitrogen 17 Creatinine 0.51 L Glucose Level 154 Calcium Level 9.1 Test 09/02/16 12:05 09/02/16 13:03 Iron Level 22 L Total Iron Binding Capacity 128 L Percent Iron Saturation 17 L Bedside Glucose 132 Medications Medications Current Medications Ondansetron HCl (Zofran Inj) 4 mg Q6H PRN IV NAUSEA AND/OR VOMITING Last administered on 08/15/16 05:11; Admin Dose 4 MG; Start 07/31/16 at 15:00 Morphine Sulfate (morphine) 2 mg Q4H PRN IV SEVERE PAIN LEVEL 7-10 Last administered on 09/02/16 11:16; Admin Dose 2 MG; Start 07/31/16 at 15:00 Magnesium Hydroxide (Milk Of Mag) 30 ml DAILY PRN PO CONSTIPATION; Start at 15:00 Sodium Biphosphate/ Sodium Phosphate (Fleet Enema) 133 ml DAILY PRN [place] CONSTIPATION; Start 07/31/16 at 15:00 Hydralazine HCl (Apresoline) 10 mg Q6H PRN IV ELEVATED BLOOD PRESSURE; Start at 15:00 Nitroglycerin (Nitroglycerin (Sl Tab) 0.4 Mg) 1 tab Q5M PRN SL ANGINA; Start at 15:00 Miscellaneous Information 1 ea NOTE XX ; Start 07/31/16 at 16:30 Glucose (Glutose) 15 gm Q15M PRN PO DECREASED GLUCOSE; Start 07/31/16 at 16:30 Glucose (Glutose) 22.5 gm Q15M PRN PO DECREASED GLUCOSE; Start 07/31/16 at 16: 30 Dextrose (D50w Syringe) 25 ml Q15M PRN IV DECREASED GLUCOSE; Start 07/31/16 at 16:30 Dextrose (D50w Syringe) 50 ml Q15M PRN IV DECREASED GLUCOSE; Start 07/31/16 at 16:30 Glucagon (Glucagen) 1 mg Q15M PRN IM DECREASED GLUCOSE; Start 07/31/16 at 16:30 Glucose (Glutose) 15 gm Q15M PRN BUCCAL DECREASED GLUCOSE; Start 07/31/16 at 16 :30 Sodium Hypochlorite (Dakin'S (1/4 Strength)) 1 applic BID IRR Last administered on 09/02/16 08:54; Admin Dose 1 APPLIC; Start 08/01/16 at 21:00 Zinc Sulfate (Zinc Sulfate) 220 mg DAILY GTB Last administered on 09/02/16 08: 53; Admin Dose 220 MG; Start 08/03/16 at 11:30 Multivitamins Therapeutic (Theragran) 1 tab DAILY PO Last administered on 08:53; Admin Dose 1 TAB; Start 08/03/16 at 11:30 Ascorbic Acid (Vitamin C) 500 mg BID GTB Last administered on 09/02/16 08:53; Admin Dose 500 MG; Start 08/03/16 at 11:30 Sodium Hypochlorite (Dakin'S (Dilute 1/40%)) 1 applic BID IRR Last administered on 09/02/16 08:53; Admin Dose 1 APPLIC; Start 08/04/16 at 12:00 Levothyroxine Sodium (Synthroid) 25 mcg DAILY@06 PO Last administered on 06:22; Admin Dose 25 MCG; Start 08/11/16 at 06:00 Paroxetine HCl (Paxil) 10 mg DAILY PO Last administered on 09/02/16 08:53; Admin Dose 10 MG; Start 08/11/16 at 21:00 Insulin Aspart (Novolog Insulin Pen) NOVOLOG *MODERATE* ALGORI... Q6 SC Last administered on 09/01/16 07:00; Admin Dose 2 UNIT; Start 08/13/16 at 00:00 Lactobacillus Acidoph/Bulgaricus (Floranex) 1 tab TID GTB Last administered on 09/02/16 12:59; Admin Dose 1 TAB; Start 08/15/16 at 21:30 Metformin HCl (Glucophage) 500 mg Q12 GTB Last administered on 08/27/16 08:54 ; Admin Dose 500 MG; Start 08/15/16 at 21:30; Status Future Hold Acetaminophen (Tylenol Tab) 650 mg Q6H PRN GTB PAIN AND OR ELEVATED TEMP Last administered on 09/02/16 06:38; Admin Dose 650 MG; Start 08/15/16 at 21:30 Magnesium Oxide (Mag-Ox 400) 400 mg DAILY GTB Last administered on 09/02/16 08: 53; Admin Dose 400 MG; Start 08/20/16 at 09:00 Enoxaparin Sodium (Lovenox) 40 mg DAILY SC Last administered on 09/02/16 08:55 ; Admin Dose 40 MG; Start 08/22/16 at 09:00 Famotidine (Pepcid) 20 mg DAILY GTB Last administered on 09/02/16 08:53; Admin Dose 20 MG; Start 08/22/16 at 09:00 Potassium Chloride (Potassium Chloride Pwd/Soln) 40 meq BID GTB Last administered on 09/02/16 08:54; Admin Dose 40 MEQ; Start 08/23/16 at 21:00 Nystatin 5 ml 5 ml QID PO Last administered on 09/02/16 12:59; Admin Dose 5 ML ; Start 08/25/16 at 17:00 Norepinephrine/ Dextrose (Levophed/D5W) 500 ml @ 1.87 mls/hr TITRATE IV Last administered on 08/28/16 10:46; Admin Dose 3.75 MLS/HR; Start 08/28/16 at 09:00 Midodrine (Proamatine) 10 mg TID@09,13,17 PO Last administered on 09/02/16 12: 59; Admin Dose 10 MG; Start 08/28/16 at 10:24 Metronidazole (Flagyl) 500 mg Q8 PO Last administered on 09/02/16 13:01; Admin Dose 500 MG; Start 08/29/16 at 14:00 Fentanyl 25 mcg 25 mcg Q3H PRN IV PAIN Last administered on 09/02/16 08:58; Admin Dose 25 MCG; Start 08/29/16 at 17:00 Dextrose 1,000 ml @ 75 mls/hr [id number] IV Last administered on 09/02/16 00:15; Admin Dose 75 MLS/HR; Start 08/30/16 at 15:30 Colistimethate Sodium 75 mg/ Sodium Chloride 100 ml @ 200 mls/hr Q12 IVPB Last administered on 09/02/16 08:53; Admin Dose 200 MLS/HR; Start 08/31/16 at 21 :00 Linezolid 300 ml @ 300 mls/hr Q12 IVPB Last administered on 09/02/16 08:55; Admin Dose 300 MLS/HR; Start 08/31/16 at 21:00 Meropenem (Merrem 500 Mg/ 100 ml (Pmx)) 100 ml @ 200 mls/hr Q8H IVPB Last administered on 09/02/16 13:01; Admin Dose 200 MLS/HR; Start 09/01/16 at 20:00 Kb Barrett DO Sep 02, 2016 13:33
[2016-09-02] MEDS ORDERED: ALPRAZOLAM 0.25 MG TAB GTB PRN (14:00)
--- NOTE | 2016-09-02 15:07 | PN ---
DATE: 09/02/2016 SUBJECTIVE: No acute events. The patient is awake, lying comfortably in bed. No fevers. No press ors. VITAL SIGNS: Temperature 97.9, pulse 96, respirations 24, blood pressure 93/61, saturation 97% on 4 0 FiO2. WBC 21.4, H and H 7.3 and 24.5, platelets 436, neutrophils 85.2. BUN 17, creatinine 0.51. INDWELLINGS: Trach, PEG, Oliveira, left chest Port-A-Cath. ANTIMICROBIALS: Zyvox, Colistin, Meropenem, tobramycin inhalation, Flagyl. PHYSICAL EXAMINATION: GENERAL: This is a chronically ill-appearing, middle-aged man who is lying comfortably in bed. HEENT: Head atraumatic, normocephalic. Sclerae anicteric. Buccal mucosa dry. NECK: Supple. Tracheostomy present. CHEST: Rise symmetrical. Breath sounds diminished to bases. HEART: S1, S2. ABDOMEN: Soft, bowel tones present. EXTREMITIES: Bilateral edema. SKIN: No jaundice, multiple chronic wounds. ASSESSMENT: 1. Sepsis, status post shock. 2. Multiple chronic wounds. 3. Ongoing healthcare-associated pneumonia. 4. Status post urinary tract infection. 5. Quadriplegia status post cervical spine injury. 6. Anemia. PLAN: The patient remains hemodynamically stable off pressors. White blood cell count tracing down . Continue present care, antibiotics, local wound care. Follow recommendations of consultants. Dictated By: LESLIE FERRARO LICENSED NUCLEAR CONTROL ROOM OPERATOR for ROGE LESTER MD NI/NTS Conf#: [id number] DID#: [id number] CC: JAMISON STANTON MD; ROGE LESTER MD;*End*
[2016-09-02] MEDS: ALPRAZOLAM 0.25 MG TAB GTB PRN ×2 (15:42→22:16)
[2016-09-02] MEDS: SOD FERRIC GLUC COMPLX 125 MG in SOD CHLORIDE 0.9% 100 ML IVPB SCH (16:00)
[2016-09-02] MEDS: ALBUTEROL/IPRATROPIUM (NEB) 3 ML AMP HHN PRN (20:26)
[2016-09-02] MEDS ORDERED: SOD CHLORIDE 0.9% 500 ML IV ONE (23:00)
[2016-09-03] VITALS (65 sets, daily range): BP systolic 61–155; BP diastolic 37–99; PULSE 103–143; RESP 8–48
[2016-09-03] MEDS: MEROPENEM 500 MG/100 ML (PMX) 100 ML IVPB SCH ×3 (04:22→21:34)
[2016-09-03 04:45] LABS: ADD SCAN DIFF NO
[2016-09-03 04:45] LABS: AADO2 Arterial 168.4 mmHg (7.0-24.0); Allen Test ACCEPTAB; Arterial Base Excess 1.8 mmol/L (-3.0-3); Arterial COHb 0.3 % (0.0-3.0); Arterial Fraction of Oxyhgb 97.8 % (93.0-99.0); Arterial HCO3 27.2 mmol/L (22.0-26.0); Arterial MetHb 0.4 % (0.0-1.5); Arterial Total Hemglobin 9.5 g/dl (12.0-18.0); MODE VENT - AC
[2016-09-03 04:47] LABS: ABNORMAL IP MESSAGE 1; HEMATOCRIT 25.3 % (42.0-52.0); HEMOGLOBIN 7.5 g/dl (14.0-18.0); MEAN CORPUSCULAR HEMOGLOBIN 26.7 pg (29.0-33.0); MEAN CORPUSCULAR HGB CONC 29.6 g/dl (32.0-37.0); MEAN PLATELET VOLUME 9.1 fl (7.4-10.4); PLATELET COUNT 422 10^3/UL (140-415); RED BLOOD COUNT 2.81 10^6/ul (4.70-6.10); RED CELL DISTRIBUTION WIDTH 17.8 % (11.5-14.5); WHITE BLOOD COUNT 29.7 10^3/ul (4.8-10.8)
[2016-09-03 05:11] LABS: POTASSIUM 4.6 mmol/L (3.5-5.1)
[2016-09-03 05:14] LABS: CREATININE 0.49 mg/dl (0.61-1.24)
[2016-09-03 05:15] LABS: CALCIUM 8.6 mg/dl (8.4-10.2)
[2016-09-03] MEDS: INSULIN ASPART [NOVOLOG] 3 ML PEN SC SCH ×4 (06:00→17:09)
[2016-09-03] MEDS: LEVOTHYROXINE 25 MCG TAB PO SCH (06:17)
[2016-09-03] MEDS: metroNIDAZOLE 500 MG TAB PO SCH ×3 (06:17→21:36)
[2016-09-03] MEDS: morphine 2 MG INJ IV PRN ×2 (06:42→11:32)
[2016-09-03 07:53] LABS: EOSINOPHILS # 0.6 10^3/ul (0.0-0.5); LYMPHOCYTES # 1.5 10^3/ul (0.8-2.9); MONOCYTE # 0.6 10^3/ul (0.3-0.9); NEUTROPHIL # 26.4 10^3/ul (1.6-7.5)
--- NOTE | 2016-09-03 08:21 | RADRPT ---
PROCEDURE: XR Chest. CLINICAL INDICATION: Shortness of breath. TECHNIQUE: Single frontal view. COMPARISON: 08/31/2016. FINDINGS: The endotracheal tube and left internal jugular vein implanted port central venous catheter remain i n satisfactory position. There is consolidation in the right upper lobe and patchy consolidation in the left mid and lower lung zones consistent with bilateral pneumonia. The heart size is normal. There are small bilateral pleural effusions. There is no pneumothorax. IMPRESSION: 1. Bilateral pneumonia and small bilateral pleural effusions, unchanged. 2. No other change from 08/31/2016. RPTAT: QQ .Bryce Lee MD, MD Date Time Electronically viewed and signed by .Bryce Lee MD, on 09/03/2016 08:21 .R/
[2016-09-03] MEDS: TOBRAMYCIN/0.25NS 300 MG/5 ML INHAL NEB SCH ×2 (08:23→20:41)
[2016-09-03] MEDS: ALBUTEROL HFA 8 GM INHALER INH SCH ×2 (08:23→15:50)
[2016-09-03] MEDS: NYSTATIN SUSP 5 ML CUP PO SCH ×4 (09:24→21:36)
[2016-09-03] MEDS: LACTOBACILLUS CHEW TAB GTB SCH ×3 (09:24→21:35)
[2016-09-03] MEDS: LINEZOLID 600 MG/D5W (PMX) 300 ML IVPB SCH ×2 (09:24→21:36)
[2016-09-03] MEDS: PAROXETINE 10 MG TAB PO SCH (09:25)
[2016-09-03] MEDS: POTASSIUM CHLORIDE 20 MEQ POWDER FOR ORAL SOLN GTB SCH ×2 (09:25→21:35)
[2016-09-03] MEDS: MULTIVITAMINS THERAPEUTIC TAB PO SCH (09:25)
[2016-09-03] MEDS: FAMOTIDINE 20 MG TAB GTB SCH (09:25)
[2016-09-03] MEDS: ZINC SULFATE 220 MG CAP GTB SCH (09:25)
[2016-09-03] MEDS: ASCORBIC ACID 500 MG TAB GTB SCH ×2 (09:25→21:35)
[2016-09-03] MEDS: MAGNESIUM OXIDE 400 MG TAB GTB SCH (09:25)
[2016-09-03] MEDS: ENOXAPARIN 40 MG/0.4 ML SYG SC SCH (09:29)
[2016-09-03] MEDS: MIDODRINE 5 MG TAB PO SCH ×3 (09:34→17:08)
[2016-09-03] MEDS: COLISTIMETHATE 75 MG in SOD CHLORIDE 0.9% 100 ML IVPB SCH ×2 (09:34→21:36)
--- NOTE | 2016-09-03 09:35 | PN ---
Date/Time of Note Date/Time of Note DATE: 09/03/16 TIME: 09:19 Assessment/Plan VTE Prophylaxis VTE Prophylaxis Intervention: LMWH Lines/Catheters IV Catheter Type ([facility] malini cath Urinary Cath still in place: Yes Reason Cath still needed: other (indicate) Assessment/Plan Assessment/Plan 46-year-old male sent in with fever and diaphoresis with findings of septic shock. 1) Sepsis/shock - sec to HCAP likely + decub ulcer infx's, now with shock - on pressor support. sp bronch/atb's. 2) Decubitus wound/ MDR organisms. Diverting colostomy & debridement may not be feasible while on vent. quality of life will not improve post therapy. 3) Quadraplegia 2/2 Ho C2 fracture; poor prognosis; palliative care eval appreciated 4) VDRF; cont vent, f/u pulm rec's 5) Chr CHF/ systolic? - monitor 6) Ho c diff - monitor 7) Malnutrition; cont peg/feeds/free water. 8) Past tobacco - monitor 9) Hypernatremia - resolved now 10) Elevated Ca : resolved PLAN: * Continue to wean pressors * Continue abx per ID * Continue vent support and mgt per pulm * Continue tube feeds * Continue ICU care and support Critical care time spent with pt care today = 40 min. Subjective 24 Hr Interval Summary Free Text/Dictation Patient seen and examined. remains on full vent support and low dose pressor support asking for ice chips Exam/Review of Systems Vital Signs Vitals Vital Signs Date Time Temp Pulse Resp B/P Pulse Ox O2 Delivery O2 Flow Rate FiO2 09/03/16 08:00 119 09/03/16 07:00 23 112/67 09/03/16 05:48 98 50 09/03/16 04:00 98.0 Mechanical Ventilator Intake and Output 09/02/16 09/02/16 09/03/16 15:00 23:00 07:00 Intake Total 380 ml 1495 ml 411.80 ml Output Total 1020 ml 470 ml 250 ml Balance -640 ml 1025 ml 161.80 ml Exam Constitutional: alert, oriented (?), other (seems somewhat encephalopathic, asking repeatedly for ice-chips, cachectic) Psych: anxiety Head: normocephalic Eyes: PERRL ENMT: No mucosa pink and moist Neck: other (trach to vent) Respiratory: crackles/rales (coarse diffuse crackles), diminished breath sounds Cardiovascular: regular rate and rhythm Gastrointestinal: bowel sounds, distended (mildly), firm (mildly) Extremities: edema (in extremities only, slight sheen to both legs) Neurological: confused (?), lethargic, other (C2 quadriplegic) Results Result Diagram: 09/03/16 0435 09/03/16 0435 Results 24 hrs Laboratory Tests Test 09/02/16 12:05 09/02/16 13:03 09/02/16 17:59 09/03/16 00:18 Iron Level 22 L Total Iron Binding Capacity 128 L Percent Iron Saturation 17 L Bedside Glucose 132 106 127 Test 09/03/16 04:35 09/03/16 05:00 09/03/16 05:46 White Blood Count 29.7 #H Red Blood Count 2.81 L Hemoglobin 7.5 L Hematocrit 25.3 L Mean Corpuscular Volume 90.0 Mean Corpuscular Hemoglobin 26.7 L Mean Corpuscular Hemoglobin Concent 29.6 L Red Cell Distribution Width 17.8 H Platelet Count 422 H Mean Platelet Volume 9.1 Neutrophils % 89.0 H Band Neutrophils % 2.0 Lymphocytes % 5.0 L Monocytes % 2.0 Eosinophils % 2.0 Neutrophils # 26.4 H Lymphocytes # 1.5 Monocytes # 0.6 Eosinophils # 0.6 H Sodium Level 136 Potassium Level 4.6 Chloride Level 106 Carbon Dioxide Level 27 Anion Gap 8 Blood Urea Nitrogen 16 Creatinine 0.49 L Glucose Level 127 Lactic Acid Level 1.9 Calcium Level 8.6 Blood Gas Specimen Source Blood arterial Arterial Blood Date Drawn 09/03/2016 4:30:02 AM Arterial Blood pH (Temp corrected) 7.387 Arterial Blood pCO2 (Temp correct) 46.2 H Arterial Blood pO2 (Temp corrected) 136.1 H Arterial Blood HCO3 27.2 H Arterial Blood Base Excess 1.8 Arterial Blood Oxygen Saturation 98.5 H Colton Test ACCEPTAB Arterial Blood Gas Puncture Site Right Radial Arterial Blood Carboxyhemoglobin 0.3 Arterial Blood Methemoglobin 0.4 Blood Gas A-a O2 Differential 168.4 H Oxyhemoglobin Percent 97.8 Total Hemoglobin 9.5 L Blood Gas Temperature 37.0 Blood Gas Respiration Rate 24.0 Blood Gas Actual Respiration Rate 24 Blood Gas Modality VENT - AC FiO2 50.0 Blood Gas Tidal Volume 500.0 Blood Gas Low PEEP Setting 5.0 Blood Gas Inspiratory Pressure 40.0 Blood Gas Notified Whom MG Blood Gas Notified Time 09/03/2016 4:45:36 AM Bedside Glucose 129 Medications Medications Current Medications Ondansetron HCl (Zofran Inj) 4 mg Q6H PRN IV NAUSEA AND/OR VOMITING Last administered on 08/15/16 05:11; Admin Dose 4 MG; Start 07/31/16 at 15:00 Morphine Sulfate (morphine) 2 mg Q4H PRN IV SEVERE PAIN LEVEL 7-10 Last administered on 09/03/16 06:42; Admin Dose 2 MG; Start 07/31/16 at 15:00 Magnesium Hydroxide (Milk Of Mag) 30 ml DAILY PRN PO CONSTIPATION; Start at 15:00 Sodium Biphosphate/ Sodium Phosphate (Fleet Enema) 133 ml DAILY PRN MD CONSTIPATION; Start 07/31/16 at 15:00 Hydralazine HCl (Apresoline) 10 mg Q6H PRN IV ELEVATED BLOOD PRESSURE; Start at 15:00 Nitroglycerin (Nitroglycerin (Sl Tab) 0.4 Mg) 1 tab Q5M PRN SL ANGINA; Start at 15:00 Miscellaneous Information 1 ea NOTE XX ; Start 07/31/16 at 16:30 Glucose (Glutose) 15 gm Q15M PRN PO DECREASED GLUCOSE; Start 07/31/16 at 16:30 Glucose (Glutose) 22.5 gm Q15M PRN PO DECREASED GLUCOSE; Start 07/31/16 at 16: 30 Dextrose (D50w Syringe) 25 ml Q15M PRN IV DECREASED GLUCOSE; Start 07/31/16 at 16:30 Dextrose (D50w Syringe) 50 ml Q15M PRN IV DECREASED GLUCOSE; Start 07/31/16 at 16:30 Glucagon (Glucagen) 1 mg Q15M PRN IM DECREASED GLUCOSE; Start 07/31/16 at 16:30 Glucose (Glutose) 15 gm Q15M PRN BUCCAL DECREASED GLUCOSE; Start 07/31/16 at 16 :30 Sodium Hypochlorite (Dakin'S (1/4 Strength)) 1 applic BID IRR Last administered on 09/02/16 20:46; Admin Dose 1 APPLIC; Start 08/01/16 at 21:00 Zinc Sulfate (Zinc Sulfate) 220 mg DAILY GTB Last administered on 09/02/16 08: 53; Admin Dose 220 MG; Start 08/03/16 at 11:30 Multivitamins Therapeutic (Theragran) 1 tab DAILY PO Last administered on 08:53; Admin Dose 1 TAB; Start 08/03/16 at 11:30 Ascorbic Acid (Vitamin C) 500 mg BID GTB Last administered on 09/02/16 20:42; Admin Dose 500 MG; Start 08/03/16 at 11:30 Sodium Hypochlorite (Dakin'S (Dilute 1/40%)) 1 applic BID IRR Last administered on 09/02/16 20:43; Admin Dose 1 APPLIC; Start 08/04/16 at 12:00 Levothyroxine Sodium (Synthroid) 25 mcg DAILY@06 PO Last administered on 06:17; Admin Dose 25 MCG; Start 08/11/16 at 06:00 Paroxetine HCl (Paxil) 10 mg DAILY PO Last administered on 09/02/16 08:53; Admin Dose 10 MG; Start 08/11/16 at 21:00 Insulin Aspart (Novolog Insulin Pen) NOVOLOG *MODERATE* ALGORI... Q6 SC Last administered on 09/01/16 07:00; Admin Dose 2 UNIT; Start 08/13/16 at 00:00 Lactobacillus Acidoph/Bulgaricus (Floranex) 1 tab TID GTB Last administered on 09/02/16 20:42; Admin Dose 1 TAB; Start 08/15/16 at 21:30 Metformin HCl (Glucophage) 500 mg Q12 GTB Last administered on 08/27/16 08:54 ; Admin Dose 500 MG; Start 08/15/16 at 21:30; Status Future Hold Acetaminophen (Tylenol Tab) 650 mg Q6H PRN GTB PAIN AND OR ELEVATED TEMP Last administered on 09/02/16 21:47; Admin Dose 650 MG; Start 08/15/16 at 21:30 Magnesium Oxide (Mag-Ox 400) 400 mg DAILY GTB Last administered on 09/02/16 08: 53; Admin Dose 400 MG; Start 08/20/16 at 09:00 Enoxaparin Sodium (Lovenox) 40 mg DAILY SC Last administered on 09/02/16 08:55 ; Admin Dose 40 MG; Start 08/22/16 at 09:00 Famotidine (Pepcid) 20 mg DAILY GTB Last administered on 09/02/16 08:53; Admin Dose 20 MG; Start 08/22/16 at 09:00 Potassium Chloride (Potassium Chloride Pwd/Soln) 40 meq BID GTB Last administered on 09/02/16 20:42; Admin Dose 40 MEQ; Start 08/23/16 at 21:00 Nystatin 5 ml 5 ml QID PO Last administered on 09/02/16 20:42; Admin Dose 5 ML ; Start 08/25/16 at 17:00 Norepinephrine/ Dextrose (Levophed/D5W) 500 ml @ 1.87 mls/hr TITRATE IV Last administered on 09/02/16 23:24; Admin Dose 5 MLS/HR; Start 08/28/16 at 09:00 Midodrine (Proamatine) 10 mg TID@09,13,17 PO Last administered on 09/02/16 17: 47; Admin Dose 10 MG; Start 08/28/16 at 10:24 Metronidazole (Flagyl) 500 mg Q8 PO Last administered on 09/03/16 06:17; Admin Dose 500 MG; Start 08/29/16 at 14:00 Fentanyl 25 mcg 25 mcg Q3H PRN IV PAIN Last administered on 09/02/16 08:58; Admin Dose 25 MCG; Start 08/29/16 at 17:00 Dextrose 1,000 ml @ 75 mls/hr [id number] IV Last administered on 09/02/16 22:18; Admin Dose 75 MLS/HR; Start 08/30/16 at 15:30 Colistimethate Sodium 75 mg/ Sodium Chloride 100 ml @ 200 mls/hr Q12 IVPB Last administered on 09/02/16 21:38; Admin Dose 200 MLS/HR; Start 08/31/16 at 21 :00 Linezolid 300 ml @ 300 mls/hr Q12 IVPB Last administered on 09/02/16 20:44; Admin Dose 300 MLS/HR; Start 08/31/16 at 21:00 Meropenem 100 ml @ 200 mls/hr Q8H IVPB Last administered on 09/03/16 04:22; Admin Dose 200 MLS/HR; Start 09/01/16 at 20:00 Ferric Sodium Gluconate Complex/ Sodium Chloride (Ferrlecit/NS) 110 ml @ 100 mls/hr Q24H IVPB Last administered on 09/02/16 16:00; Admin Dose 100 MLS/HR; Start 09/02/16 at 16:00; Stop 09/04/16 at 17:05 Alprazolam (Xanax) 0.25 mg Q6H PRN GTB ANXIETY Last administered on 09/02/16 22 :16; Admin Dose 0.25 MG; Start 09/02/16 at 16:00 Procedures Procedures PROCEDURE: XR Chest. CLINICAL INDICATION: Shortness of breath. TECHNIQUE: Single frontal view. COMPARISON: 08/31/2016. FINDINGS: The endotracheal tube and left internal jugular vein implanted port central venous catheter remain in satisfactory position. There is consolidation in the right upper lobe and patchy consolidation in the left mid and lower lung zones consistent with bilateral pneumonia. The heart size is normal. There are small bilateral pleural effusions. There is no pneumothorax. IMPRESSION: 1. Bilateral pneumonia and small bilateral pleural effusions, unchanged. 2. No other change from 08/31/2016. RPTAT: QQ .Bryce Lee MD, MD Date Time Electronically viewed and signed by .Bryce Lee MD, MD on 09/03/2016 08:21 .R/ CC: TRENT VEGA MD, BOLATITO M. Sep 03, 2016 09:30
[2016-09-03] MEDS ORDERED: FUROSEMIDE 20 MG INJ IV SCH (10:00)
--- NOTE | 2016-09-03 11:07 | CONS ---
Date/Time of Note Date/Time of Note DATE: 09/03/16 TIME: 11:04 Assessment/Plan Assessment/Plan Additional Assessment/Plan Chest x-ray was reviewed from today which is again showing dense consolidation involving the right upper lobe with patchy bilateral it without infiltrates. Ventilator settings; AC of 24, tidal volume 500, PEEP of 5, 50% FiO2. Assessment recommendations; 1. Patient admitted for pneumonia and sepsis. 2. Severe sacral and bilateral hip decubitus ulcers. 3. Systolic dysfunction. 4. Chronic respiratory failure due to C2 spinal injury leading to quadriplegia. 5. Anemia. Patient requiring frequent blood transfusions. Continue current treatment. Transfuse 1 unit packed RBC today. Prognosis remains poor. Consultation Date/Type/Reason Admit Date/Time Jul 31, 2016 at 14:20 Initial Consult Date 08/02/16 Type of Consultation: Pulmonary/critical care 24 HR Interval Summary Free Text/Dictation Patient condition remains critical. Still requiring full ventilator support at fairly high FiO2. Patient however has remained hemodynamically stable. Not requiring any pressor support. General exam; young male, on ventilator via tracheostomy awake alert. Currently in no distress. Exam/Review of Systems Vital Signs Vitals Vital Signs Date Time Temp Pulse Resp B/P Pulse Ox O2 Delivery O2 Flow Rate FiO2 09/03/16 10:45 143 24 121/86 100 09/03/16 08:00 99.2 09/03/16 05:48 50 09/03/16 04:00 Mechanical Ventilator Intake and Output 09/02/16 09/02/16 09/03/16 15:00 23:00 07:00 Intake Total 380 ml 1495 ml 536.16 ml Output Total 1020 ml 470 ml 250 ml Balance -640 ml 1025 ml 286.16 ml Exam HEENT exam is; patient has a C-spine soft collar in place. Tracheostomy in place. Insertion site is clean. Pupils are midsize reactive to light. Good dentition. No neck masses. No thyromegaly. Chest examination RI: Diminished breath sounds bilaterally with bilateral scattered crackles. S1-S2 audible, no murmurs. Regular rhythm. Abdomen examination; soft, G-tube in place. No organomegaly. Bowel sounds audible. Extremity exam is; no peripheral edema. Back examination; there is a dressing applied over the sacrum as well as bilateral upper hips. SEPARATIONS SCIENTIST exam is; patient stable quadriplegia. Results Result Diagram: 09/03/16 0435 09/03/16 0435 Results 24 hrs Laboratory Tests Test 09/02/16 12:05 09/02/16 13:03 09/02/16 17:59 09/03/16 00:18 Iron Level 22 L Total Iron Binding Capacity 128 L Percent Iron Saturation 17 L Bedside Glucose 132 106 127 Test 09/03/16 04:35 09/03/16 05:00 09/03/16 05:46 White Blood Count 29.7 #H Red Blood Count 2.81 L Hemoglobin 7.5 L Hematocrit 25.3 L Mean Corpuscular Volume 90.0 Mean Corpuscular Hemoglobin 26.7 L Mean Corpuscular Hemoglobin Concent 29.6 L Red Cell Distribution Width 17.8 H Platelet Count 422 H Mean Platelet Volume 9.1 Neutrophils % 89.0 H Band Neutrophils % 2.0 Lymphocytes % 5.0 L Monocytes % 2.0 Eosinophils % 2.0 Neutrophils # 26.4 H Lymphocytes # 1.5 Monocytes # 0.6 Eosinophils # 0.6 H Sodium Level 136 Potassium Level 4.6 Chloride Level 106 Carbon Dioxide Level 27 Anion Gap 8 Blood Urea Nitrogen 16 Creatinine 0.49 L Glucose Level 127 Lactic Acid Level 1.9 Calcium Level 8.6 Blood Gas Specimen Source Blood arterial Arterial Blood Date Drawn 09/03/2016 4:30:02 AM Arterial Blood pH (Temp corrected) 7.387 Arterial Blood pCO2 (Temp correct) 46.2 H Arterial Blood pO2 (Temp corrected) 136.1 H Arterial Blood HCO3 27.2 H Arterial Blood Base Excess 1.8 Arterial Blood Oxygen Saturation 98.5 H Colton Test ACCEPTAB Arterial Blood Gas Puncture Site Right Radial Arterial Blood Carboxyhemoglobin 0.3 Arterial Blood Methemoglobin 0.4 Blood Gas A-a O2 Differential 168.4 H Oxyhemoglobin Percent 97.8 Total Hemoglobin 9.5 L Blood Gas Temperature 37.0 Blood Gas Respiration Rate 24.0 Blood Gas Actual Respiration Rate 24 Blood Gas Modality VENT - AC FiO2 50.0 Blood Gas Tidal Volume 500.0 Blood Gas Low PEEP Setting 5.0 Blood Gas Inspiratory Pressure 40.0 Blood Gas Notified Whom MG Blood Gas Notified Time 09/03/2016 4:45:36 AM Bedside Glucose 129 Medications Medications Current Medications Ondansetron HCl (Zofran Inj) 4 mg Q6H PRN IV NAUSEA AND/OR VOMITING Last administered on 08/15/16 05:11; Admin Dose 4 MG; Start 07/31/16 at 15:00 Morphine Sulfate (morphine) 2 mg Q4H PRN IV SEVERE PAIN LEVEL 7-10 Last administered on 09/03/16 06:42; Admin Dose 2 MG; Start 07/31/16 at 15:00 Magnesium Hydroxide (Milk Of Mag) 30 ml DAILY PRN PO CONSTIPATION; Start at 15:00 Sodium Biphosphate/ Sodium Phosphate (Fleet Enema) 133 ml DAILY PRN IN CONSTIPATION; Start 07/31/16 at 15:00 Hydralazine HCl (Apresoline) 10 mg Q6H PRN IV ELEVATED BLOOD PRESSURE; Start at 15:00 Nitroglycerin (Nitroglycerin (Sl Tab) 0.4 Mg) 1 tab Q5M PRN SL ANGINA; Start at 15:00 Miscellaneous Information 1 ea NOTE XX ; Start 07/31/16 at 16:30 Glucose (Glutose) 15 gm Q15M PRN PO DECREASED GLUCOSE; Start 07/31/16 at 16:30 Glucose (Glutose) 22.5 gm Q15M PRN PO DECREASED GLUCOSE; Start 07/31/16 at 16: 30 Dextrose (D50w Syringe) 25 ml Q15M PRN IV DECREASED GLUCOSE; Start 07/31/16 at 16:30 Dextrose (D50w Syringe) 50 ml Q15M PRN IV DECREASED GLUCOSE; Start 07/31/16 at 16:30 Glucagon (Glucagen) 1 mg Q15M PRN IM DECREASED GLUCOSE; Start 07/31/16 at 16:30 Glucose (Glutose) 15 gm Q15M PRN BUCCAL DECREASED GLUCOSE; Start 07/31/16 at 16 :30 Sodium Hypochlorite (Dakin'S (1/4 Strength)) 1 applic BID IRR Last administered on 09/02/16 20:46; Admin Dose 1 APPLIC; Start 08/01/16 at 21:00 Zinc Sulfate (Zinc Sulfate) 220 mg DAILY GTB Last administered on 09/03/16 09: 25; Admin Dose 220 MG; Start 08/03/16 at 11:30 Multivitamins Therapeutic (Theragran) 1 tab DAILY PO Last administered on 09:25; Admin Dose 1 TAB; Start 08/03/16 at 11:30 Ascorbic Acid (Vitamin C) 500 mg BID GTB Last administered on 09/03/16 09:25; Admin Dose 500 MG; Start 08/03/16 at 11:30 Sodium Hypochlorite (Dakin'S (Dilute 1/40%)) 1 applic BID IRR Last administered on 09/02/16 20:43; Admin Dose 1 APPLIC; Start 08/04/16 at 12:00 Levothyroxine Sodium (Synthroid) 25 mcg DAILY@06 PO Last administered on 06:17; Admin Dose 25 MCG; Start 08/11/16 at 06:00 Paroxetine HCl (Paxil) 10 mg DAILY PO Last administered on 09/03/16 09:25; Admin Dose 10 MG; Start 08/11/16 at 21:00 Insulin Aspart (Novolog Insulin Pen) NOVOLOG *MODERATE* ALGORI... Q6 SC Last administered on 09/01/16 07:00; Admin Dose 2 UNIT; Start 08/13/16 at 00:00 Lactobacillus Acidoph/Bulgaricus (Floranex) 1 tab TID GTB Last administered on 09/03/16 09:24; Admin Dose 1 TAB; Start 08/15/16 at 21:30 Metformin HCl (Glucophage) 500 mg Q12 GTB Last administered on 08/27/16 08:54 ; Admin Dose 500 MG; Start 08/15/16 at 21:30; Status Future Hold Acetaminophen (Tylenol Tab) 650 mg Q6H PRN GTB PAIN AND OR ELEVATED TEMP Last administered on 09/02/16 21:47; Admin Dose 650 MG; Start 08/15/16 at 21:30 Magnesium Oxide (Mag-Ox 400) 400 mg DAILY GTB Last administered on 09/03/16 09: 25; Admin Dose 400 MG; Start 08/20/16 at 09:00 Enoxaparin Sodium (Lovenox) 40 mg DAILY SC Last administered on 09/03/16 09:29 ; Admin Dose 40 MG; Start 08/22/16 at 09:00 Famotidine (Pepcid) 20 mg DAILY GTB Last administered on 09/03/16 09:25; Admin Dose 20 MG; Start 08/22/16 at 09:00 Potassium Chloride (Potassium Chloride Pwd/Soln) 40 meq BID GTB Last administered on 09/03/16 09:25; Admin Dose 40 MEQ; Start 08/23/16 at 21:00 Nystatin 5 ml 5 ml QID PO Last administered on 09/03/16 09:24; Admin Dose 5 ML ; Start 08/25/16 at 17:00 Norepinephrine/ Dextrose (Levophed/D5W) 500 ml @ 1.87 mls/hr TITRATE IV Last administered on 09/02/16 23:24; Admin Dose 5 MLS/HR; Start 08/28/16 at 09:00 Midodrine (Proamatine) 10 mg TID@09,13,17 PO Last administered on 09/03/16 09: 34; Admin Dose 10 MG; Start 08/28/16 at 10:24 Metronidazole (Flagyl) 500 mg Q8 PO Last administered on 09/03/16 06:17; Admin Dose 500 MG; Start 08/29/16 at 14:00 Fentanyl 25 mcg 25 mcg Q3H PRN IV PAIN Last administered on 09/02/16 08:58; Admin Dose 25 MCG; Start 08/29/16 at 17:00 Dextrose 1,000 ml @ 75 mls/hr [id number] IV Last administered on 09/02/16 22:18; Admin Dose 75 MLS/HR; Start 08/30/16 at 15:30 Colistimethate Sodium 75 mg/ Sodium Chloride 100 ml @ 200 mls/hr Q12 IVPB Last administered on 09/03/16 09:34; Admin Dose 200 MLS/HR; Start 08/31/16 at 21 :00 Linezolid 300 ml @ 300 mls/hr Q12 IVPB Last administered on 09/03/16 09:24; Admin Dose 300 MLS/HR; Start 08/31/16 at 21:00 Meropenem 100 ml @ 200 mls/hr Q8H IVPB Last administered on 09/03/16 04:22; Admin Dose 200 MLS/HR; Start 09/01/16 at 20:00 Ferric Sodium Gluconate Complex/ Sodium Chloride (Ferrlecit/NS) 110 ml @ 100 mls/hr Q24H IVPB Last administered on 09/02/16 16:00; Admin Dose 100 MLS/HR; Start 09/02/16 at 16:00; Stop 09/04/16 at 17:05 Alprazolam (Xanax) 0.25 mg Q6H PRN GTB ANXIETY Last administered on 09/02/16 22 :16; Admin Dose 0.25 MG; Start 09/02/16 at 16:00 Furosemide (Lasix) 20 mg ONCE IV Last administered on 09/03/16 10:11; Admin Dose 20 MG; Start 09/03/16 at 10:00; Stop 09/03/16 at 16:00 ALISSON ARRIOLA Sep 03, 2016 11:07
[2016-09-03] MEDS: DEXTROSE 5% 1,000 ML IV SCH (12:50)
--- NOTE | 2016-09-03 15:44 | PN ---
DATE: 09/03/2016 INFECTIOUS DISEASE PROGRESS NOTE SUBJECTIVE: Patient is lying comfortably in bed, awake, follows commands, in no distress. He is ba ck on Levophed drip at 5 mcg per minute. He is tachycardic. Temperature 99.2, pulse 120, respiratio ns 20, blood pressure 123/81, saturation 100% on vent. LABORATORY DATA: WBC today 29.7, H and H 7.5 and 25.3, platelets 422, neutrophils 89, bands 2, lymp hs 5, monos 2, BUN 16, creatinine 0.49. INDWELLINGS: Trach, PEG, Oliveira, left chest Port-A-Cath. ANTIMICROBIALS: 1. Zyvox. 2. Colistin, meropenem, tobramycin inhalation. 3. Flagyl. PHYSICAL EXAMINATION: GENERAL: Chronically ill-appearing, middle-aged man who is in no distress. HEENT: Head atraumatic, normocephalic. Sclerae anicteric. Buccal mucosa pink. NECK: Supple. Tracheostomy present. Has copious secretions that are clear around trach. CHEST: Rise symmetrical. Breath sounds diminished to bases. HEART: S1, S2. ABDOMEN: Soft. Bowel tones present. EXTREMITIES: Bilateral edema. SKIN: With multiple wounds. ASSESSMENT: 1. Severe sepsis with shock, patient is back on Levophed drip. 2. Tachycardia, likely secondary to above. 3. Multiple wounds. 4. Healthcare-associated pneumonia. 5. Quadriplegia. 6. Anemia. 7. History of C-spine injury. PLAN: The patient remains clinically unchanged, hemodynamically unstable. Back on Levophed drip wi th increased white blood cell count. He is on broad spectrum antibiotics, which we are going to con tinue. Continue local wound care. Dictated By: LESLIE FERRARO STUCCO MASON for ROGE HERNANDEZ/SCOTTIE Conf#: [id number] DID#: [id number]
--- NOTE | 2016-09-03 16:08 | PN ---
DATE: 09/03/2016 There has been no significant change in Mr. Arrington' overall clinical course. He remains in the intensi ve care unit. Cognitively he is able to make his own decisions on his own. I discussed with him le jan of care, once again, in the event he becomes critically ill, again requires pressor support or h igh flow O2, high concentrations of oxygen. He says yes. Once again, we will support his decision. In the event he is unable to make decisions, I have spoken to his brother, who will be the surroga te decision maker on his behalf. Dictated By: MARYSOL BRADFORD MD, LP/SCOTTIE Conf#: [id number] DID#: [id number]
--- NOTE | 2016-09-03 16:25 | CONS ---
Date/Time of Note Date/Time of Note DATE: 09/03/16 TIME: 16:23 Assessment/Plan Assessment/Plan Additional Assessment/Plan Septic shock Acute decompensated systolic congestive heart failure Sinus tachycardia C2 fracture and quadriplegic Respiratory failure Cardiomyopathy with ejection fraction 50% via echo on previous admission Decubiti Hypotension -IV pressors restarted, titrate to maintain SBP greater than 90 and her map above 60, continue to hold any antihypertensives. Antibiotics as per infectious disease Consultation Date/Type/Reason Admit Date/Time Jul 31, 2016 at 14:20 Type of Consultation: cv 24 HR Interval Summary Free Text/Dictation Patient seen and examined. As per nursing staff, blood pressure lowering requiring initiation of IV pressor again. Plan for blood transfusion Exam/Review of Systems Vital Signs Vitals Vital Signs Date Time Temp Pulse Resp B/P Pulse Ox O2 Delivery O2 Flow Rate FiO2 09/03/16 16:00 114 09/03/16 10:45 24 121/86 100 09/03/16 08:00 99.2 09/03/16 05:48 50 09/03/16 04:00 Mechanical Ventilator Intake and Output 09/02/16 09/02/16 09/03/16 15:00 23:00 07:00 Intake Total 380 ml 1495 ml 536.16 ml Output Total 1020 ml 470 ml 250 ml Balance -640 ml 1025 ml 286.16 ml Exam Sleeping but arousable, no apparent distress Head: normocephalic Neck: other (Tracheostomy) Respiratory: crackles/rales, other (Coarse breath sounds bilaterally, no wheezing) Cardiovascular: other (S1-S2 heard), regular rate and rhythm Gastrointestinal: bowel sounds, non-tender, other (No grimacing with palpation) , soft Extremities: edema, other (No cyanosis) Results Result Diagram: 09/03/16 0435 09/03/16 0435 Results 24 hrs Laboratory Tests Test 09/02/16 17:59 09/03/16 00:18 09/03/16 04:35 09/03/16 05:00 Bedside Glucose 106 127 White Blood Count 29.7 #H Red Blood Count 2.81 L Hemoglobin 7.5 L Hematocrit 25.3 L Mean Corpuscular Volume 90.0 Mean Corpuscular Hemoglobin 26.7 L Mean Corpuscular Hemoglobin Concent 29.6 L Red Cell Distribution Width 17.8 H Platelet Count 422 H Mean Platelet Volume 9.1 Neutrophils % 89.0 H Band Neutrophils % 2.0 Lymphocytes % 5.0 L Monocytes % 2.0 Eosinophils % 2.0 Neutrophils # 26.4 H Lymphocytes # 1.5 Monocytes # 0.6 Eosinophils # 0.6 H Sodium Level 136 Potassium Level 4.6 Chloride Level 106 Carbon Dioxide Level 27 Anion Gap 8 Blood Urea Nitrogen 16 Creatinine 0.49 L Glucose Level 127 Lactic Acid Level 1.9 Calcium Level 8.6 Blood Gas Specimen Source Blood arterial Arterial Blood Date Drawn 09/03/2016 4:30:02 AM Arterial Blood pH (Temp corrected) 7.387 Arterial Blood pCO2 (Temp correct) 46.2 H Arterial Blood pO2 (Temp corrected) 136.1 H Arterial Blood HCO3 27.2 H Arterial Blood Base Excess 1.8 Arterial Blood Oxygen Saturation 98.5 H [place]ton Test ACCEPTAB Arterial Blood Gas Puncture Site Right Radial Arterial Blood Carboxyhemoglobin 0.3 Arterial Blood Methemoglobin 0.4 Blood Gas A-a O2 Differential 168.4 H Oxyhemoglobin Percent 97.8 Total Hemoglobin 9.5 L Blood Gas Temperature 37.0 Blood Gas Respiration Rate 24.0 Blood Gas Actual Respiration Rate 24 Blood Gas Modality VENT - AC FiO2 50.0 Blood Gas Tidal Volume 500.0 Blood Gas Low PEEP Setting 5.0 Blood Gas Inspiratory Pressure 40.0 Blood Gas Notified Whom MG Blood Gas Notified Time 09/03/2016 4:45:36 AM Test 09/03/16 05:46 09/03/16 13:55 Bedside Glucose 129 157 Medications Medications Current Medications Ondansetron HCl (Zofran Inj) 4 mg Q6H PRN IV NAUSEA AND/OR VOMITING Last administered on 08/15/16 05:11; Admin Dose 4 MG; Start 07/31/16 at 15:00 Morphine Sulfate (morphine) 2 mg Q4H PRN IV SEVERE PAIN LEVEL 7-10 Last administered on 09/03/16 11:32; Admin Dose 2 MG; Start 07/31/16 at 15:00 Magnesium Hydroxide (Milk Of Mag) 30 ml DAILY PRN PO CONSTIPATION Last administered on 09/03/16 15:46; Admin Dose 30 ML; Start 07/31/16 at 15:00 Sodium Biphosphate/ Sodium Phosphate (Fleet Enema) 133 ml DAILY PRN [place] CONSTIPATION; Start 07/31/16 at 15:00 Hydralazine HCl (Apresoline) 10 mg Q6H PRN IV ELEVATED BLOOD PRESSURE; Start at 15:00 Nitroglycerin (Nitroglycerin (Sl Tab) 0.4 Mg) 1 tab Q5M PRN SL ANGINA; Start at 15:00 Miscellaneous Information 1 ea NOTE XX ; Start 07/31/16 at 16:30 Glucose (Glutose) 15 gm Q15M PRN PO DECREASED GLUCOSE; Start 07/31/16 at 16:30 Glucose (Glutose) 22.5 gm Q15M PRN PO DECREASED GLUCOSE; Start 07/31/16 at 16: 30 Dextrose (D50w Syringe) 25 ml Q15M PRN IV DECREASED GLUCOSE; Start 07/31/16 at 16:30 Dextrose (D50w Syringe) 50 ml Q15M PRN IV DECREASED GLUCOSE; Start 07/31/16 at 16:30 Glucagon (Glucagen) 1 mg Q15M PRN IM DECREASED GLUCOSE; Start 07/31/16 at 16:30 Glucose (Glutose) 15 gm Q15M PRN BUCCAL DECREASED GLUCOSE; Start 07/31/16 at 16 :30 Sodium Hypochlorite (Dakin'S (1/4 Strength)) 1 applic BID IRR Last administered on 09/02/16 20:46; Admin Dose 1 APPLIC; Start 08/01/16 at 21:00 Zinc Sulfate (Zinc Sulfate) 220 mg DAILY GTB Last administered on 09/03/16 09: 25; Admin Dose 220 MG; Start 08/03/16 at 11:30 Multivitamins Therapeutic (Theragran) 1 tab DAILY PO Last administered on 09:25; Admin Dose 1 TAB; Start 08/03/16 at 11:30 Ascorbic Acid (Vitamin C) 500 mg BID GTB Last administered on 09/03/16 09:25; Admin Dose 500 MG; Start 08/03/16 at 11:30 Sodium Hypochlorite (Dakin'S (Dilute 1/40%)) 1 applic BID IRR Last administered on 09/02/16 20:43; Admin Dose 1 APPLIC; Start 08/04/16 at 12:00 Levothyroxine Sodium (Synthroid) 25 mcg DAILY@06 PO Last administered on 06:17; Admin Dose 25 MCG; Start 08/11/16 at 06:00 Paroxetine HCl (Paxil) 10 mg DAILY PO Last administered on 09/03/16 09:25; Admin Dose 10 MG; Start 08/11/16 at 21:00 Insulin Aspart (Novolog Insulin Pen) NOVOLOG *MODERATE* ALGORI... Q6 SC Last administered on 09/03/16 13:59; Admin Dose 2 UNIT; Start 08/13/16 at 00:00 Lactobacillus Acidoph/Bulgaricus (Floranex) 1 tab TID GTB Last administered on 09/03/16 14:14; Admin Dose 1 TAB; Start 08/15/16 at 21:30 Metformin HCl (Glucophage) 500 mg Q12 GTB Last administered on 08/27/16 08:54 ; Admin Dose 500 MG; Start 08/15/16 at 21:30; Status Future Hold Acetaminophen (Tylenol Tab) 650 mg Q6H PRN GTB PAIN AND OR ELEVATED TEMP Last administered on 09/02/16 21:47; Admin Dose 650 MG; Start 08/15/16 at 21:30 Magnesium Oxide (Mag-Ox 400) 400 mg DAILY GTB Last administered on 09/03/16 09: 25; Admin Dose 400 MG; Start 08/20/16 at 09:00 Enoxaparin Sodium (Lovenox) 40 mg DAILY SC Last administered on 09/03/16 09:29 ; Admin Dose 40 MG; Start 08/22/16 at 09:00 Famotidine (Pepcid) 20 mg DAILY GTB Last administered on 09/03/16 09:25; Admin Dose 20 MG; Start 08/22/16 at 09:00 Potassium Chloride (Potassium Chloride Pwd/Soln) 40 meq BID GTB Last administered on 09/03/16 09:25; Admin Dose 40 MEQ; Start 08/23/16 at 21:00 Nystatin 5 ml 5 ml QID PO Last administered on 09/03/16 14:14; Admin Dose 5 ML ; Start 08/25/16 at 17:00 Norepinephrine/ Dextrose (Levophed/D5W) 500 ml @ 1.87 mls/hr TITRATE IV Last administered on 09/02/16 23:24; Admin Dose 5 MLS/HR; Start 08/28/16 at 09:00 Midodrine (Proamatine) 10 mg TID@09,13,17 PO Last administered on 09/03/16 14: 28; Admin Dose 10 MG; Start 08/28/16 at 10:24 Metronidazole (Flagyl) 500 mg Q8 PO Last administered on 09/03/16 14:14; Admin Dose 500 MG; Start 08/29/16 at 14:00 Fentanyl 25 mcg 25 mcg Q3H PRN IV PAIN Last administered on 09/02/16 08:58; Admin Dose 25 MCG; Start 08/29/16 at 17:00 Dextrose 1,000 ml @ 75 mls/hr [id number] IV Last administered on 09/02/16 22:18; Admin Dose 75 MLS/HR; Start 08/30/16 at 15:30 Colistimethate Sodium 75 mg/ Sodium Chloride 100 ml @ 200 mls/hr Q12 IVPB Last administered on 09/03/16 09:34; Admin Dose 200 MLS/HR; Start 08/31/16 at 21 :00 Linezolid 300 ml @ 300 mls/hr Q12 IVPB Last administered on 09/03/16 09:24; Admin Dose 300 MLS/HR; Start 08/31/16 at 21:00 Meropenem 100 ml @ 200 mls/hr Q8H IVPB Last administered on 09/03/16 11:59; Admin Dose 200 MLS/HR; Start 09/01/16 at 20:00 Ferric Sodium Gluconate Complex/ Sodium Chloride (Ferrlecit/NS) 110 ml @ 100 mls/hr Q24H IVPB Last administered on 09/02/16 16:00; Admin Dose 100 MLS/HR; Start 09/02/16 at 16:00; Stop 09/04/16 at 17:05 Alprazolam (Xanax) 0.25 mg Q6H PRN GTB ANXIETY Last administered on 09/02/16 22 :16; Admin Dose 0.25 MG; Start 09/02/16 at 16:00 Kb Barrett DO Sep 03, 2016 16:25
[2016-09-03] MEDS: SODIUM HYPOCHLORITE 0.125% 473 ML BTL IRR SCH ×2 (17:00→21:00)
[2016-09-03] MEDS: SODIUM HYPOCHLORITE 1/40% 1L IRRIG IRR SCH ×2 (17:08→21:35)
[2016-09-03] MEDS: SOD FERRIC GLUC COMPLX 125 MG in SOD CHLORIDE 0.9% 100 ML IVPB SCH ×2 (20:21→20:23)
[2016-09-03] MEDS: FENTAnyl 50 MCG/ML VIAL IV PRN (22:59)
[2016-09-04] VITALS (85 sets, daily range): BP systolic 54–141; BP diastolic 33–99; PULSE 114–159; RESP 9–35
[2016-09-04] MEDS: INSULIN ASPART [NOVOLOG] 3 ML PEN SC SCH ×4 (01:10→18:50)
[2016-09-04] MEDS: DEXTROSE 5% 1,000 ML IV SCH ×2 (02:10→09:12)
[2016-09-04 04:41] LABS: ADD SCAN DIFF NO
[2016-09-04] MEDS: MEROPENEM 500 MG/100 ML (PMX) 100 ML IVPB SCH ×3 (04:43→20:42)
[2016-09-04] MEDS: metroNIDAZOLE 500 MG TAB PO SCH ×3 (05:09→22:36)
[2016-09-04] MEDS: LEVOTHYROXINE 25 MCG TAB PO SCH (05:12)
[2016-09-04 05:13] LABS: ALBUMIN 2.2 g/dl (3.3-4.9)
[2016-09-04 05:16] LABS: BILIRUBIN,INDIRECT 0.2 mg/dl (0-1.1); BILIRUBIN,TOTAL 0.2 mg/dl (0.2-1.3); POTASSIUM 4.3 mmol/L (3.5-5.1); TOTAL PROTEIN 6.1 g/dl (6.1-8.1)
[2016-09-04 05:18] LABS: CREATININE 0.44 mg/dl (0.61-1.24)
[2016-09-04 05:19] LABS: CALCIUM 8.6 mg/dl (8.4-10.2)
[2016-09-04 05:23] LABS: INR 1.39; PROTIME 17.1 Sec (12.2-14.2); PT RATIO 1.3
[2016-09-04 05:24] LABS: PARTIAL THROMBOPLASTIN TIME 43.5 Sec (25.0-35.0)
[2016-09-04 05:28] LABS: ABNORMAL IP MESSAGE 1; HEMATOCRIT 34.7 % (42.0-52.0); HEMOGLOBIN 10.2 g/dl (14.0-18.0); MEAN CORPUSCULAR HEMOGLOBIN 26.6 pg (29.0-33.0); MEAN CORPUSCULAR HGB CONC 29.4 g/dl (32.0-37.0); MEAN CORPUSCULAR VOLUME 90.6 fl (82.0-101.0); PLATELET COUNT 446 10^3/UL (140-415); RED BLOOD COUNT 3.83 10^6/ul (4.70-6.10); RED CELL DISTRIBUTION WIDTH 17.8 % (11.5-14.5); WHITE BLOOD COUNT 49.8 10^3/ul (4.8-10.8)
[2016-09-04] MEDS ORDERED: NORepinephrine 8MG/250 ML (PMX 250 ML ONE (06:32)
[2016-09-04] MEDS: ALBUTEROL HFA 8 GM INHALER INH SCH ×2 (07:23→15:57)
[2016-09-04 07:45] LABS: EOSINOPHILS # 1.5 10^3/ul (0.0-0.5); MONOCYTE # 1.5 10^3/ul (0.3-0.9); NEUTROPHIL # 43.8 10^3/ul (1.6-7.5)
[2016-09-04] MEDS ORDERED: NORepinephrine 8MG/250 ML (PMX 250 ML IV SCH (08:00)
--- NOTE | 2016-09-04 08:41 | CONS ---
Date/Time of Note Date/Time of Note DATE: 09/04/16 TIME: 08:37 Assessment/Plan Assessment/Plan Additional Assessment/Plan Ventilator settings; AC of 24, tidal volume 500, PEEP of 5, 50% FiO2. Assessment recommendations; next 1. Patient with history of quadriplegia chronic respiratory failure admitted for severe pneumonia and sepsis. 2. Persistent severe leukocytosis. 3. Sacral and bilateral hip decubitus ulcers. 4. Diastolic dysfunction. Continue current treatment. Continue current ventilator settings, pressure support and antibiotics. Prognosis is extremely poor. Consultation Date/Type/Reason Admit Date/Time Jul 31, 2016 at 14:20 Initial Consult Date 08/02/16 Type of Consultation: Pulmonary/critical care 24 HR Interval Summary Free Text/Dictation Patient condition remains critical. Patient has remained hemodynamically unstable requiring high-dose Levophed currently at 20 mics per minute. General exam; young male, on ventilator via tracheostomy awake and alert. Currently in no distress. Exam/Review of Systems Vital Signs Vitals Vital Signs Date Time Temp Pulse Resp B/P Pulse Ox O2 Delivery O2 Flow Rate FiO2 09/04/16 07:16 146 24 95 50 09/04/16 06:45 132/89 09/04/16 04:15 98.2 09/03/16 22:15 Mechanical Ventilator Intake and Output 09/03/16 09/03/16 09/04/16 15:00 23:00 07:00 Intake Total 1534.86 ml 1087.50 ml 1570 ml Output Total 2300 ml 1250 ml 710 ml Balance -765.14 ml -162.50 ml 860 ml Exam H EENT exam is; supple neck, tracheostomy in place. No lymphadenopathy. No neck masses. Pharynx is clear. Patient good dentition. Pupils are midsize and reactive to light. Chest examination; diminished breath sound bilaterally with scattered crackles. S1-S2 audible, no murmurs. Regular rhythm. Abdomen examination; soft, G-tube in place. Nondistended. No organomegaly. Bowel sounds audible. Extremity exam is; no peripheral edema. Back examination reveals dressing applied over the sacrum as well as bilateral hips. [employer] examination; patient is stable quadriplegia. Results Result Diagram: 09/04/16 0400 09/04/16 0400 Results 24 hrs Laboratory Tests Test 09/03/16 13:55 09/03/16 17:07 09/04/16 00:35 09/04/16 04:00 Bedside Glucose 157 129 190 White Blood Count 49.8 #H Red Blood Count 3.83 #L Hemoglobin 10.2 #L Hematocrit 34.7 #L Mean Corpuscular Volume 90.6 Mean Corpuscular Hemoglobin 26.6 L Mean Corpuscular Hemoglobin Concent 29.4 L Red Cell Distribution Width 17.8 H Platelet Count 446 H Mean Platelet Volume 10.0 Neutrophils % 88.0 H Band Neutrophils % 4.0 Lymphocytes % 2.0 L Monocytes % 3.0 Eosinophils % 3.0 Neutrophils # 43.8 H Lymphocytes # 1.0 Monocytes # 1.5 H Eosinophils # 1.5 H Prothrombin Time 17.1 H Prothrombin Time Ratio 1.3 INR International Normalized Ratio 1.39 Activated Partial Thromboplast Time 43.5 H Sodium Level 141 Potassium Level 4.3 Chloride Level 102 Carbon Dioxide Level 27 Anion Gap 16 # Blood Urea Nitrogen 15 Creatinine 0.44 L Glucose Level 259 #H Calcium Level 8.6 Total Bilirubin 0.2 Direct Bilirubin 0.00 Indirect Bilirubin 0.2 Aspartate Amino Transf (AST/SGOT) 26 Alanine Aminotransferase (ALT/SGPT) 13 Alkaline Phosphatase 165 H Total Protein 6.1 Albumin 2.2 L Test 09/04/16 05:15 Bedside Glucose 255 H Medications Medications Current Medications Ondansetron HCl (Zofran Inj) 4 mg Q6H PRN IV NAUSEA AND/OR VOMITING Last administered on 08/15/16 05:11; Admin Dose 4 MG; Start 07/31/16 at 15:00 Morphine Sulfate (morphine) 2 mg Q4H PRN IV SEVERE PAIN LEVEL 7-10 Last administered on 09/03/16 11:32; Admin Dose 2 MG; Start 07/31/16 at 15:00 Magnesium Hydroxide (Milk Of Mag) 30 ml DAILY PRN PO CONSTIPATION Last administered on 09/03/16 15:46; Admin Dose 30 ML; Start 07/31/16 at 15:00 Sodium Biphosphate/ Sodium Phosphate (Fleet Enema) 133 ml DAILY PRN [place] CONSTIPATION; Start 07/31/16 at 15:00 Hydralazine HCl (Apresoline) 10 mg Q6H PRN IV ELEVATED BLOOD PRESSURE; Start at 15:00 Nitroglycerin (Nitroglycerin (Sl Tab) 0.4 Mg) 1 tab Q5M PRN SL ANGINA; Start at 15:00 Miscellaneous Information 1 ea NOTE XX ; Start 07/31/16 at 16:30 Glucose (Glutose) 15 gm Q15M PRN PO DECREASED GLUCOSE; Start 07/31/16 at 16:30 Glucose (Glutose) 22.5 gm Q15M PRN PO DECREASED GLUCOSE; Start 07/31/16 at 16: 30 Dextrose (D50w Syringe) 25 ml Q15M PRN IV DECREASED GLUCOSE; Start 07/31/16 at 16:30 Dextrose (D50w Syringe) 50 ml Q15M PRN IV DECREASED GLUCOSE; Start 07/31/16 at 16:30 Glucagon (Glucagen) 1 mg Q15M PRN IM DECREASED GLUCOSE; Start 07/31/16 at 16:30 Glucose (Glutose) 15 gm Q15M PRN BUCCAL DECREASED GLUCOSE; Start 07/31/16 at 16 :30 Sodium Hypochlorite (Dakin'S (1/4 Strength)) 1 applic BID IRR Last administered on 09/03/16 21:00; Admin Dose 1 APPLIC; Start 08/01/16 at 21:00 Zinc Sulfate (Zinc Sulfate) 220 mg DAILY GTB Last administered on 09/03/16 09: 25; Admin Dose 220 MG; Start 08/03/16 at 11:30 Multivitamins Therapeutic (Theragran) 1 tab DAILY PO Last administered on 09:25; Admin Dose 1 TAB; Start 08/03/16 at 11:30 Ascorbic Acid (Vitamin C) 500 mg BID GTB Last administered on 09/03/16 21:35; Admin Dose 500 MG; Start 08/03/16 at 11:30 Sodium Hypochlorite (Dakin'S (Dilute 1/40%)) 1 applic BID IRR Last administered on 09/03/16 21:35; Admin Dose 1 APPLIC; Start 08/04/16 at 12:00 Levothyroxine Sodium (Synthroid) 25 mcg DAILY@06 PO Last administered on 05:12; Admin Dose 25 MCG; Start 08/11/16 at 06:00 Paroxetine HCl (Paxil) 10 mg DAILY PO Last administered on 09/03/16 09:25; Admin Dose 10 MG; Start 08/11/16 at 21:00 Insulin Aspart (Novolog Insulin Pen) NOVOLOG *MODERATE* ALGORI... Q6 SC Last administered on 09/04/16 05:19; Admin Dose 6 UNIT; Start 08/13/16 at 00:00 Lactobacillus Acidoph/Bulgaricus (Floranex) 1 tab TID GTB Last administered on 09/03/16 21:35; Admin Dose 1 TAB; Start 08/15/16 at 21:30 Metformin HCl (Glucophage) 500 mg Q12 GTB Last administered on 08/27/16 08:54 ; Admin Dose 500 MG; Start 08/15/16 at 21:30; Status Future Hold Acetaminophen (Tylenol Tab) 650 mg Q6H PRN GTB PAIN AND OR ELEVATED TEMP Last administered on 09/02/16 21:47; Admin Dose 650 MG; Start 08/15/16 at 21:30 Magnesium Oxide (Mag-Ox 400) 400 mg DAILY GTB Last administered on 09/03/16 09: 25; Admin Dose 400 MG; Start 08/20/16 at 09:00 Enoxaparin Sodium (Lovenox) 40 mg DAILY SC Last administered on 09/03/16 09:29 ; Admin Dose 40 MG; Start 08/22/16 at 09:00 Famotidine (Pepcid) 20 mg DAILY GTB Last administered on 09/03/16 09:25; Admin Dose 20 MG; Start 08/22/16 at 09:00 Potassium Chloride (Potassium Chloride Pwd/Soln) 40 meq BID GTB Last administered on 09/03/16 21:35; Admin Dose 40 MEQ; Start 08/23/16 at 21:00 Nystatin 5 ml 5 ml QID PO Last administered on 09/03/16 21:36; Admin Dose 5 ML ; Start 08/25/16 at 17:00 Norepinephrine/ Dextrose (Levophed/D5W) 500 ml @ 1.87 mls/hr TITRATE IV Last administered on 09/02/16 23:24; Admin Dose 5 MLS/HR; Start 08/28/16 at 09:00 Midodrine (Proamatine) 10 mg TID@,,17 PO Last administered on 09/03/16 17: 08; Admin Dose 10 MG; Start 08/28/16 at 10:24 Metronidazole (Flagyl) 500 mg Q8 PO Last administered on 09/04/16 05:09; Admin Dose 500 MG; Start 08/29/16 at 14:00 Fentanyl 25 mcg 25 mcg Q3H PRN IV PAIN Last administered on 09/03/16 22:59; Admin Dose 25 MCG; Start 08/29/16 at 17:00 Dextrose 1,000 ml @ 75 mls/hr [id number] IV Last administered on 09/04/16 02:10; Admin Dose 75 MLS/HR; Start 08/30/16 at 15:30 Colistimethate Sodium 75 mg/ Sodium Chloride 100 ml @ 200 mls/hr Q12 IVPB Last administered on 09/03/16 21:36; Admin Dose 200 MLS/HR; Start 08/31/16 at 21 :00 Linezolid 300 ml @ 300 mls/hr Q12 IVPB Last administered on 09/03/16 21:36; Admin Dose 300 MLS/HR; Start 08/31/16 at 21:00 Meropenem 100 ml @ 200 mls/hr Q8H IVPB Last administered on 09/04/16 04:43; Admin Dose 200 MLS/HR; Start 09/01/16 at 20:00 Ferric Sodium Gluconate Complex/ Sodium Chloride (Ferrlecit/NS) 110 ml @ 100 mls/hr Q24H IVPB Last administered on 09/03/16 20:23; Admin Dose 100 MLS/HR; Start 09/02/16 at 16:00; Stop 09/04/16 at 17:05 Alprazolam 0.25 mg 0.25 mg Q6H PRN GTB ANXIETY Last administered on 09/02/16 22 :16; Admin Dose 0.25 MG; Start 09/02/16 at 16:00 Norepinephrine (Levophed) 250 ml @ 1.875 mls/ hr TITRATE IV Last administered on 09/04/16 07:56; Admin Dose 37.5 MLS/HR; Start 09/04/16 at 08:00; Stop 09/04/16 at 11:00 ALISSON ARRIOLA Sep 04, 2016 08:41
[2016-09-04] MEDS: LINEZOLID 600 MG/D5W (PMX) 300 ML IVPB SCH ×2 (09:13→20:44)
[2016-09-04] MEDS: COLISTIMETHATE 75 MG in SOD CHLORIDE 0.9% 100 ML IVPB SCH ×2 (09:13→20:43)
[2016-09-04] MEDS: ENOXAPARIN 40 MG/0.4 ML SYG SC SCH (09:27)
[2016-09-04] MEDS: MAGNESIUM OXIDE 400 MG TAB GTB SCH (09:39)
[2016-09-04] MEDS: POTASSIUM CHLORIDE 20 MEQ POWDER FOR ORAL SOLN GTB SCH ×2 (09:39→20:43)
[2016-09-04] MEDS: NYSTATIN SUSP 5 ML CUP PO SCH ×4 (09:39→20:44)
[2016-09-04] MEDS: ZINC SULFATE 220 MG CAP GTB SCH (09:39)
[2016-09-04] MEDS: FAMOTIDINE 20 MG TAB GTB SCH (09:39)
[2016-09-04] MEDS: ASCORBIC ACID 500 MG TAB GTB SCH ×2 (09:39→20:43)
[2016-09-04] MEDS: MULTIVITAMINS THERAPEUTIC TAB PO SCH (09:39)
[2016-09-04] MEDS: SODIUM HYPOCHLORITE 1/40% 1L IRRIG IRR SCH ×2 (09:40→20:43)
[2016-09-04] MEDS: LACTOBACILLUS CHEW TAB GTB SCH ×3 (09:40→20:42)
[2016-09-04] MEDS: SODIUM HYPOCHLORITE 0.125% 473 ML BTL IRR SCH ×2 (09:40→21:00)
[2016-09-04] MEDS: PAROXETINE 10 MG TAB PO SCH (09:40)
[2016-09-04] MEDS: TOBRAMYCIN/0.25NS 300 MG/5 ML INHAL NEB SCH ×2 (09:55→19:26)
--- NOTE | 2016-09-04 09:55 | PN ---
Date/Time of Note Date/Time of Note DATE: 09/04/16 TIME: 09:46 Assessment/Plan VTE Prophylaxis VTE Prophylaxis Intervention: LMWH Lines/Catheters IV Catheter Type (from Nrs): portacath Urinary Cath still in place: Yes Reason Cath still needed: terminal illness/intractable pain, other (indicate) Assessment/Plan Assessment/Plan 46-year-old male sent in with fever and diaphoresis with findings of septic shock. 1) Sepsis/shock - sec to HCAP likely + decub ulcer infx's, now with shock - on pressor support. sp bronch/atb's. 2) Decubitus wound/ MDR organisms. Diverting colostomy & debridement may not be feasible while on vent. quality of life will not improve post therapy. 3) Quadriplegia 2/2 Ho C2 fracture; poor prognosis; palliative care eval appreciated 4) VDRF; cont vent, f/u pulm rec's 5) Chr CHF/ systolic? - monitor 6) Ho c diff - monitor 7) Malnutrition; cont peg/feeds/free water. 8) Past tobacco - monitor 9) Hypernatremia - resolved now 10) Elevated Ca : resolved 11. Hypothyroidism: on synthroid 12. Depression 13. Chronic Pain 14. Anemia of chronic disease + likely chronic blood loss from severe decubiti : Transfusion PRN PLAN: * IVF bolus for acute tachycardia, get stat D-dimer / hold midodrine for now/ Change IVF to NS * Further interventions depend on findings * Continue to wean pressors as much as possible * Continue abx per ID * Continue vent support and mgt per pulm * Continue tube feeds * Continue ICU care and support * Patient is not looking good, prognosis is grim Critical care time spent with pt care today = 40 min. Subjective 24 Hr Interval Summary Free Text/Dictation Patient looks very poorly Requesting for me to call his briother and sister, left his sister a message and was unable to leave a message for his brother after multiple attempts Patient had a jump in his heart rate yesterday, no change in O2 requirements however, but his WBC count jumped again Exam/Review of Systems Vital Signs Vitals Vital Signs Date Time Temp Pulse Resp B/P Pulse Ox O2 Delivery O2 Flow Rate FiO2 09/04/16 08:00 140 09/04/16 07:16 24 95 50 09/04/16 06:45 132/89 09/04/16 04:15 98.2 09/03/16 22:15 Mechanical Ventilator Intake and Output 09/03/16 09/03/16 09/04/16 15:00 23:00 07:00 Intake Total 1534.86 ml 1087.50 ml 1570 ml Output Total 2300 ml 1250 ml 710 ml Balance -765.14 ml -162.50 ml 860 ml Exam Constitutional: alert, oriented (?), other (seems somewhat delirious cachectic) Psych: anxiety Head: normocephalic Eyes: PERRL ENMT: No mucosa pink and moist Neck: other (trach to vent) Respiratory: crackles/rales (coarse diffuse crackles), diminished breath sounds Cardiovascular: regular rate and rhythm Gastrointestinal: bowel sounds, distended (mildly), firm (mildly) Extremities: edema (in extremities only, slight sheen to both legs) Neurological: confused (?), lethargic, other (C2 quadriplegic) Results Result Diagram: 09/04/16 0400 09/04/16 0400 Results 24 hrs Laboratory Tests Test 09/03/16 13:55 09/03/16 17:07 09/04/16 00:35 09/04/16 04:00 Bedside Glucose 157 129 190 White Blood Count 49.8 #H Red Blood Count 3.83 #L Hemoglobin 10.2 #L Hematocrit 34.7 #L Mean Corpuscular Volume 90.6 Mean Corpuscular Hemoglobin 26.6 L Mean Corpuscular Hemoglobin Concent 29.4 L Red Cell Distribution Width 17.8 H Platelet Count 446 H Mean Platelet Volume 10.0 Neutrophils % 88.0 H Band Neutrophils % 4.0 Lymphocytes % 2.0 L Monocytes % 3.0 Eosinophils % 3.0 Neutrophils # 43.8 H Lymphocytes # 1.0 Monocytes # 1.5 H Eosinophils # 1.5 H Prothrombin Time 17.1 H Prothrombin Time Ratio 1.3 INR International Normalized Ratio 1.39 Activated Partial Thromboplast Time 43.5 H Sodium Level 141 Potassium Level 4.3 Chloride Level 102 Carbon Dioxide Level 27 Anion Gap 16 # Blood Urea Nitrogen 15 Creatinine 0.44 L Glucose Level 259 #H Calcium Level 8.6 Total Bilirubin 0.2 Direct Bilirubin 0.00 Indirect Bilirubin 0.2 Aspartate Amino Transf (AST/SGOT) 26 Alanine Aminotransferase (ALT/SGPT) 13 Alkaline Phosphatase 165 H Total Protein 6.1 Albumin 2.2 L Test 09/04/16 05:15 Bedside Glucose 255 H Medications Medications Current Medications Ondansetron HCl (Zofran Inj) 4 mg Q6H PRN IV NAUSEA AND/OR VOMITING Last administered on 08/15/16 05:11; Admin Dose 4 MG; Start 07/31/16 at 15:00 Morphine Sulfate (morphine) 2 mg Q4H PRN IV SEVERE PAIN LEVEL 7-10 Last administered on 09/03/16 11:32; Admin Dose 2 MG; Start 07/31/16 at 15:00 Magnesium Hydroxide (Milk Of Mag) 30 ml DAILY PRN PO CONSTIPATION Last administered on 09/03/16 15:46; Admin Dose 30 ML; Start 07/31/16 at 15:00 Sodium Biphosphate/ Sodium Phosphate (Fleet Enema) 133 ml DAILY PRN [place] CONSTIPATION; Start 07/31/16 at 15:00 Hydralazine HCl (Apresoline) 10 mg Q6H PRN IV ELEVATED BLOOD PRESSURE; Start at 15:00 Nitroglycerin (Nitroglycerin (Sl Tab) 0.4 Mg) 1 tab Q5M PRN SL ANGINA; Start at 15:00 Miscellaneous Information 1 ea NOTE XX ; Start 07/31/16 at 16:30 Glucose (Glutose) 15 gm Q15M PRN PO DECREASED GLUCOSE; Start 07/31/16 at 16:30 Glucose (Glutose) 22.5 gm Q15M PRN PO DECREASED GLUCOSE; Start 07/31/16 at 16: 30 Dextrose (D50w Syringe) 25 ml Q15M PRN IV DECREASED GLUCOSE; Start 07/31/16 at 16:30 Dextrose (D50w Syringe) 50 ml Q15M PRN IV DECREASED GLUCOSE; Start 07/31/16 at 16:30 Glucagon (Glucagen) 1 mg Q15M PRN IM DECREASED GLUCOSE; Start 07/31/16 at 16:30 Glucose (Glutose) 15 gm Q15M PRN BUCCAL DECREASED GLUCOSE; Start 07/31/16 at 16 :30 Sodium Hypochlorite (Dakin'S (06/06 Strength)) 1 applic BID IRR Last administered on 09/04/16 09:40; Admin Dose 1 APPLIC; Start 08/01/16 at 21:00 Zinc Sulfate (Zinc Sulfate) 220 mg DAILY GTB Last administered on 09/04/16 09: 39; Admin Dose 220 MG; Start 08/03/16 at 11:30 Multivitamins Therapeutic (Theragran) 1 tab DAILY PO Last administered on 09:39; Admin Dose 1 TAB; Start 08/03/16 at 11:30 Ascorbic Acid (Vitamin C) 500 mg BID GTB Last administered on 09/04/16 09:39; Admin Dose 500 MG; Start 08/03/16 at 11:30 Sodium Hypochlorite (Dakin'S (Dilute 1/40%)) 1 applic BID IRR Last administered on 09/04/16 09:40; Admin Dose 1 APPLIC; Start 08/04/16 at 12:00 Levothyroxine Sodium (Synthroid) 25 mcg DAILY@06 PO Last administered on 05:12; Admin Dose 25 MCG; Start 08/11/16 at 06:00 Paroxetine HCl (Paxil) 10 mg DAILY PO Last administered on 09/04/16 09:40; Admin Dose 10 MG; Start 08/11/16 at 21:00 Insulin Aspart (Novolog Insulin Pen) NOVOLOG *MODERATE* ALGORI... Q6 SC Last administered on 09/04/16 05:19; Admin Dose 6 UNIT; Start 08/13/16 at 00:00 Lactobacillus Acidoph/Bulgaricus (Floranex) 1 tab TID GTB Last administered on 09/04/16 09:40; Admin Dose 1 TAB; Start 08/15/16 at 21:30 Metformin HCl (Glucophage) 500 mg Q12 GTB Last administered on 08/27/16 08:54 ; Admin Dose 500 MG; Start 08/15/16 at 21:30; Status Future Hold Acetaminophen (Tylenol Tab) 650 mg Q6H PRN GTB PAIN AND OR ELEVATED TEMP Last administered on 09/02/16 21:47; Admin Dose 650 MG; Start 08/15/16 at 21:30 Magnesium Oxide (Mag-Ox 400) 400 mg DAILY GTB Last administered on 09/04/16 09: 39; Admin Dose 400 MG; Start 08/20/16 at 09:00 Enoxaparin Sodium (Lovenox) 40 mg DAILY SC Last administered on 09/04/16 09:27 ; Admin Dose 40 MG; Start 08/22/16 at 09:00 Famotidine (Pepcid) 20 mg DAILY GTB Last administered on 09/04/16 09:39; Admin Dose 20 MG; Start 08/22/16 at 09:00 Potassium Chloride (Potassium Chloride Pwd/Soln) 40 meq BID GTB Last administered on 09/04/16 09:39; Admin Dose 40 MEQ; Start 08/23/16 at 21:00 Nystatin 5 ml 5 ml QID PO Last administered on 09/04/16 09:39; Admin Dose 5 ML ; Start 08/25/16 at 17:00 Norepinephrine/ Dextrose (Levophed/D5W) 500 ml @ 1.87 mls/hr TITRATE IV Last administered on 09/04/16 09:28; Admin Dose 31.87 MLS/HR; Start 08/28/16 at 09:00 Midodrine (Proamatine) 10 mg TID@09,13,17 PO Last administered on 09/03/16 17: 08; Admin Dose 10 MG; Start 08/28/16 at 10:24 Metronidazole (Flagyl) 500 mg Q8 PO Last administered on 09/04/16 05:09; Admin Dose 500 MG; Start 08/29/16 at 14:00 Fentanyl 25 mcg 25 mcg Q3H PRN IV PAIN Last administered on 09/03/16 22:59; Admin Dose 25 MCG; Start 08/29/16 at 17:00 Dextrose 1,000 ml @ 75 mls/hr [id number] IV Last administered on 09/04/16 09:12; Admin Dose 75 MLS/HR; Start 08/30/16 at 15:30 Colistimethate Sodium 75 mg/ Sodium Chloride 100 ml @ 200 mls/hr Q12 IVPB Last administered on 09/04/16 09:13; Admin Dose 200 MLS/HR; Start 08/31/16 at 21 :00 Linezolid 300 ml @ 300 mls/hr Q12 IVPB Last administered on 09/04/16 09:13; Admin Dose 300 MLS/HR; Start 08/31/16 at 21:00 Meropenem 100 ml @ 200 mls/hr Q8H IVPB Last administered on 09/04/16 04:43; Admin Dose 200 MLS/HR; Start 09/01/16 at 20:00 Ferric Sodium Gluconate Complex/ Sodium Chloride (Ferrlecit/NS) 110 ml @ 100 mls/hr Q24H IVPB Last administered on 09/03/16 20:23; Admin Dose 100 MLS/HR; Start 09/02/16 at 16:00; Stop 09/04/16 at 17:05 Alprazolam 0.25 mg 0.25 mg Q6H PRN GTB ANXIETY Last administered on 09/02/16 22 :16; Admin Dose 0.25 MG; Start 09/02/16 at 16:00 Norepinephrine (Levophed) 250 ml @ 1.875 mls/ hr TITRATE IV Last administered on 09/04/16 07:56; Admin Dose 37.5 MLS/HR; Start 09/04/16 at 08:00; Stop 09/04/16 at 11:00 Procedures Procedures PROCEDURE: XR Chest. CLINICAL INDICATION: Shortness of breath. TECHNIQUE: Single frontal view. COMPARISON: 08/31/2016. FINDINGS: The endotracheal tube and left internal jugular vein implanted port central venous catheter remain in satisfactory position. There is consolidation in the right upper lobe and patchy consolidation in the left mid and lower lung zones consistent with bilateral pneumonia. The heart size is normal. There are small bilateral pleural effusions. There is no pneumothorax. IMPRESSION: 1. Bilateral pneumonia and small bilateral pleural effusions, unchanged. 2. No other change from 08/31/2016. RPTAT: QQ .Bryce Lee MD, MD Date Time Electronically viewed and signed by .Bryce Lee MD, on 09/03/2016 08:21 .R/ CC: TRENT VEGA MD, BOLATITO M. Sep 04, 2016 09:54
[2016-09-04] MEDS ORDERED: SOD CHLORIDE 0.9% 1,000 ML IV ONE (10:00)
[2016-09-04] MEDS ORDERED: DEXTROSE 5%-0.45% NACL 1,000 ML IV SCH (11:00)
[2016-09-04 11:10] LABS: D-DIMER 5778.67 ng/ml (<460)
--- NOTE | 2016-09-04 13:05 | PN ---
DATE: 09/04/2016 SUBJECTIVE: No events overnight. The patient is awake, tachycardic, still on Levophed drip. He lo oks comfortable, follows commands. No fevers. VITAL SIGNS: Temperature 98.2, pulse 144, respirations 24, blood pressure 116/80, saturation 95 on 50%. WBC today 49.8, H and H 10.2 and 34.7, platelets 446, neutrophils 88, bands 4, lymphs 2, monos 3. B UN 15, creatinine 0.44. INDWELLINGS: Trach, PEG, left chest Port-A-Cath, Oliveira catheter. ANTIMICROBIALS: The patient remains on: 1. Colistin. 2. Meropenem. 3. Zyvox. 4. Tobramycin inhalation. 5. Flagyl. PHYSICAL EXAMINATION: GENERAL: Chronically ill-appearing, middle-aged, quadriplegic man who is awake, in no distress. HEENT: Head atraumatic, normocephalic. Sclerae anicteric. Buccal mucosa dry. NECK: Supple. Tracheostomy present, the patient has copious secretion around it. HEART: S1, S2 tachycardic, regular. ABDOMEN: Soft. Bowel tones present. EXTREMITIES: Bilateral edema. SKIN: With multiple decubitus wounds. ASSESSMENT: 1. Severe sepsis with shock secondary to persistent pneumonia. 2. Multiple decubitus wounds. 3. Quadriplegia. 4. Status post urinary tract infection. 5. Tachycardia. 6. Acute decompensated systolic congestive heart failure. 7. Cardiomyopathy. PLAN: The patient remains unchanged, overall unstable. He is being followed by multiple information resource consultant s. He is covered with broad spectrum antibiotics. He had WBC labeled scan on 08/13/2016 that fe honeycutt was negative. He also had CT of the abdomen and pelvis that revealed no evidence of osteomye litis. Blood cultures on 08/28/2016 and urine culture on 08/25/2016 was negative. He is on empiric Flagyl for possible C. difficile. Dictated By: LESLIE FERRARO TIMING INSPECTOR for ROGE LESTER MD NI/NTS Conf#: [id number] DID#: [id number]
--- NOTE | 2016-09-04 13:14 | PN ---
DATE: 09/04/2016 SUBJECTIVE: Mr. Alfaro looks worse today. He looks lethargic, diaphoretic, generally uncomfortable. V ital signs are pending at this time. OBJECTIVE: CHEST: Bilateral inspiratory and expiratory tight wheezing on exam. Inspiratory and expiratory rho nchi throughout both lung singh. COR: Regular rhythm, rapid rate. NEUROLOGICAL: He is oriented x3, able to mouth yes, no. LABORATORY: Laboratory tests pending. ASSESSMENT/PLAN: 1. Respiratory failure. 2. C2 complete quadriplegia. 3. Malnutrition. 4. Multiple decubiti head, sacrum, buttocks. 5. Malnutrition. I had a conversation with him concerning his ongoing code status. I explained to him that we can an d will do everything he wants us to do. However, in the event that his heart stopped the chance lonnie t we would be successfully able to return his heart to normal beating status without any significant traumatic damage including chest compression, fracturing ribs would be very low and there is a poss ibility of further neurological injury. I gave him options to continue with the code status includi ng cardiopulmonary resuscitation and I explained to him what a CHEMICAL CODE would be and how we cou ld pursue that level of care without traumatized him in the event that he suddenly has a catastrophi c change in his clinical condition. He agrees with just CHEMICAL CODE at this time. We will make t hose changes in the computer. Dictated By: MARYSOL BRADFORD MD, LP/SCOTTIE Conf#: [id number] DID#: [id number]
--- NOTE | 2016-09-04 13:40 | CONS ---
Date/Time of Note Date/Time of Note DATE: 09/04/16 TIME: 13:38 Assessment/Plan Assessment/Plan Additional Assessment/Plan Septic shock Acute decompensated systolic congestive heart failure Sinus tachycardia C2 fracture and quadriplegic Respiratory failure Cardiomyopathy with ejection fraction 50% via echo on previous admission Decubiti Hypotension -titrate pressor to maintain SBP greater than 90 and her map above 60, continue to hold any antihypertensives. Antibiotics as per infectious disease. Consultation Date/Type/Reason Admit Date/Time Jul 31, 2016 at 14:20 Type of Consultation: cv 24 HR Interval Summary Free Text/Dictation worsening bp, getting fluid bolus Exam/Review of Systems Vital Signs Vitals Vital Signs Date Time Temp Pulse Resp B/P Pulse Ox O2 Delivery O2 Flow Rate FiO2 09/04/16 12:00 133 09/04/16 09:55 24 96 50 09/04/16 06:45 132/89 09/04/16 04:15 98.2 09/03/16 22:15 Mechanical Ventilator Intake and Output 09/03/16 09/03/16 09/04/16 15:00 23:00 07:00 Intake Total 1534.86 ml 1087.50 ml 1570 ml Output Total 2300 ml 1250 ml 710 ml Balance -765.14 ml -162.50 ml 860 ml Exam tired, asking for ice Constitutional: alert, frail Neck: other (trach) Respiratory: other (course bs, no wheeze) Cardiovascular: other (s1s2), regular rate and rhythm Gastrointestinal: bowel sounds, non-tender, soft Extremities: edema Results Result Diagram: 09/04/16 0400 09/04/16 0400 Results 24 hrs Laboratory Tests Test 09/03/16 13:55 09/03/16 17:07 09/04/16 00:35 09/04/16 04:00 Bedside Glucose 157 129 190 White Blood Count 49.8 #H Red Blood Count 3.83 #L Hemoglobin 10.2 #L Hematocrit 34.7 #L Mean Corpuscular Volume 90.6 Mean Corpuscular Hemoglobin 26.6 L Mean Corpuscular Hemoglobin Concent 29.4 L Red Cell Distribution Width 17.8 H Platelet Count 446 H Mean Platelet Volume 10.0 Neutrophils % 88.0 H Band Neutrophils % 4.0 Lymphocytes % 2.0 L Monocytes % 3.0 Eosinophils % 3.0 Neutrophils # 43.8 H Lymphocytes # 1.0 Monocytes # 1.5 H Eosinophils # 1.5 H Prothrombin Time 17.1 H Prothrombin Time Ratio 1.3 INR International Normalized Ratio 1.39 Activated Partial Thromboplast Time 43.5 H D-Dimer 5778.67 H D-Dimer Comment Sodium Level 141 Potassium Level 4.3 Chloride Level 102 Carbon Dioxide Level 27 Anion Gap 16 # Blood Urea Nitrogen 15 Creatinine 0.44 L Glucose Level 259 #H Calcium Level 8.6 Total Bilirubin 0.2 Direct Bilirubin 0.00 Indirect Bilirubin 0.2 Aspartate Amino Transf (AST/SGOT) 26 Alanine Aminotransferase (ALT/SGPT) 13 Alkaline Phosphatase 165 H Total Protein 6.1 Albumin 2.2 L Test 09/04/16 05:15 Bedside Glucose 255 H Medications Medications Current Medications Ondansetron HCl (Zofran Inj) 4 mg Q6H PRN IV NAUSEA AND/OR VOMITING Last administered on 08/15/16 05:11; Admin Dose 4 MG; Start 07/31/16 at 15:00 Morphine Sulfate (morphine) 2 mg Q4H PRN IV SEVERE PAIN LEVEL 7-10 Last administered on 09/03/16 11:32; Admin Dose 2 MG; Start 07/31/16 at 15:00 Magnesium Hydroxide (Milk Of Mag) 30 ml DAILY PRN PO CONSTIPATION Last administered on 09/03/16 15:46; Admin Dose 30 ML; Start 07/31/16 at 15:00 Sodium Biphosphate/ Sodium Phosphate (Fleet Enema) 133 ml DAILY PRN [place] CONSTIPATION; Start 07/31/16 at 15:00 Hydralazine HCl (Apresoline) 10 mg Q6H PRN IV ELEVATED BLOOD PRESSURE; Start at 15:00 Nitroglycerin (Nitroglycerin (Sl Tab) 0.4 Mg) 1 tab Q5M PRN SL ANGINA; Start at 15:00 Miscellaneous Information 1 ea NOTE XX ; Start 07/31/16 at 16:30 Glucose (Glutose) 15 gm Q15M PRN PO DECREASED GLUCOSE; Start 07/31/16 at 16:30 Glucose (Glutose) 22.5 gm Q15M PRN PO DECREASED GLUCOSE; Start 07/31/16 at 16: 30 Dextrose (D50w Syringe) 25 ml Q15M PRN IV DECREASED GLUCOSE; Start 07/31/16 at 16:30 Dextrose (D50w Syringe) 50 ml Q15M PRN IV DECREASED GLUCOSE; Start 07/31/16 at 16:30 Glucagon (Glucagen) 1 mg Q15M PRN IM DECREASED GLUCOSE; Start 07/31/16 at 16:30 Glucose (Glutose) 15 gm Q15M PRN BUCCAL DECREASED GLUCOSE; Start 07/31/16 at 16 :30 Sodium Hypochlorite (Dakin'S (1/4 Strength)) 1 applic BID IRR Last administered on 09/04/16 09:40; Admin Dose 1 APPLIC; Start 08/01/16 at 21:00 Zinc Sulfate (Zinc Sulfate) 220 mg DAILY GTB Last administered on 09/04/16 09: 39; Admin Dose 220 MG; Start 08/03/16 at 11:30 Multivitamins Therapeutic (Theragran) 1 tab DAILY PO Last administered on 09:39; Admin Dose 1 TAB; Start 08/03/16 at 11:30 Ascorbic Acid (Vitamin C) 500 mg BID GTB Last administered on 09/04/16 09:39; Admin Dose 500 MG; Start 08/03/16 at 11:30 Sodium Hypochlorite (Dakin'S (Dilute 1/40%)) 1 applic BID IRR Last administered on 09/04/16 09:40; Admin Dose 1 APPLIC; Start 08/04/16 at 12:00 Levothyroxine Sodium (Synthroid) 25 mcg DAILY@06 PO Last administered on 05:12; Admin Dose 25 MCG; Start 08/11/16 at 06:00 Paroxetine HCl (Paxil) 10 mg DAILY PO Last administered on 09/04/16 09:40; Admin Dose 10 MG; Start 08/11/16 at 21:00 Insulin Aspart (Novolog Insulin Pen) NOVOLOG *MODERATE* ALGORI... Q6 SC Last administered on 09/04/16 05:19; Admin Dose 6 UNIT; Start 08/13/16 at 00:00 Lactobacillus Acidoph/Bulgaricus (Floranex) 1 tab TID GTB Last administered on 09/04/16 09:40; Admin Dose 1 TAB; Start 08/15/16 at 21:30 Metformin HCl (Glucophage) 500 mg Q12 GTB Last administered on 08/27/16 08:54 ; Admin Dose 500 MG; Start 08/15/16 at 21:30; Status Future Hold Acetaminophen (Tylenol Tab) 650 mg Q6H PRN GTB PAIN AND OR ELEVATED TEMP Last administered on 09/02/16 21:47; Admin Dose 650 MG; Start 08/15/16 at 21:30 Magnesium Oxide (Mag-Ox 400) 400 mg DAILY GTB Last administered on 09/04/16 09: 39; Admin Dose 400 MG; Start 08/20/16 at 09:00 Enoxaparin Sodium (Lovenox) 40 mg DAILY SC Last administered on 09/04/16 09:27 ; Admin Dose 40 MG; Start 08/22/16 at 09:00 Famotidine (Pepcid) 20 mg DAILY GTB Last administered on 09/04/16 09:39; Admin Dose 20 MG; Start 08/22/16 at 09:00 Potassium Chloride (Potassium Chloride Pwd/Soln) 40 meq BID GTB Last administered on 09/04/16 09:39; Admin Dose 40 MEQ; Start 08/23/16 at 21:00 Nystatin 5 ml 5 ml QID PO Last administered on 09/04/16 09:39; Admin Dose 5 ML ; Start 08/25/16 at 17:00 Norepinephrine/ Dextrose (Levophed/D5W) 500 ml @ 1.87 mls/hr TITRATE IV Last administered on 09/04/16 09:28; Admin Dose 31.87 MLS/HR; Start 08/28/16 at 09:00 Metronidazole 500 mg 500 mg Q8 PO Last administered on 09/04/16 05:09; Admin Dose 500 MG; Start 08/29/16 at 14:00 Colistimethate Sodium 75 mg/ Sodium Chloride 100 ml @ 200 mls/hr Q12 IVPB Last administered on 09/04/16 09:13; Admin Dose 200 MLS/HR; Start 08/31/16 at 21 :00 Linezolid 300 ml @ 300 mls/hr Q12 IVPB Last administered on 09/04/16 09:13; Admin Dose 300 MLS/HR; Start 08/31/16 at 21:00 Meropenem (Merrem 500 Mg/ 100 ml (Pmx)) 100 ml @ 200 mls/hr Q8H IVPB Last administered on 09/04/16 04:43; Admin Dose 200 MLS/HR; Start 09/01/16 at 20:00 Alprazolam 0.25 mg 0.25 mg Q6H PRN GTB ANXIETY Last administered on 09/02/16 22 :16; Admin Dose 0.25 MG; Start 09/02/16 at 16:00 Sodium Chloride (NS) 1,000 ml @ 100 mls/hr Q10H IV ; Start 09/04/16 at 12:00 Kb Barrett DO Sep 04, 2016 13:40
[2016-09-04] MEDS: SOD CHLORIDE 0.9% 1,000 ML IV SCH (14:37)
[2016-09-04] MEDS ORDERED: PHENYLephrine 20MG IN 250 ML 250 ML IV SCH (16:30)
[2016-09-04] MEDS: ACETAMINOPHEN 325 MG TAB GTB PRN (18:42)
[2016-09-04] MEDS ORDERED: NACL 3% FOR INHALATION 15 ML NEBU NEB ONE (19:30)
[2016-09-04] MEDS ORDERED: ACETAMINOPHEN 1000MG/100ML IV 100 ML IVPB ONE (19:30)
[2016-09-05] VITALS (84 sets, daily range): BP systolic 58–130; BP diastolic 32–101; PULSE 97–155; RESP 16–29
[2016-09-05] MEDS: INSULIN ASPART [NOVOLOG] 3 ML PEN SC SCH ×4 (00:55→18:10)
[2016-09-05] MEDS: MEROPENEM 500 MG/100 ML (PMX) 100 ML IVPB SCH ×2 (04:50→12:03)
[2016-09-05] MEDS: LEVOTHYROXINE 25 MCG TAB PO SCH (05:16)
[2016-09-05] MEDS: metroNIDAZOLE 500 MG TAB PO SCH ×3 (05:16→21:32)
[2016-09-05] MEDS: SOD CHLORIDE 0.9% 1,000 ML IV SCH ×3 (05:17→18:08)
[2016-09-05] MEDS: PHENYLephrine 40 MG in DEXTROSE 5% 496 ML IV SCH ×4 (05:25→22:29)
[2016-09-05 05:42] LABS: ADD SCAN DIFF NO
[2016-09-05 05:48] LABS: ABNORMAL IP MESSAGE 1; HEMOGLOBIN 8.3 g/dl (14.0-18.0); MEAN CORPUSCULAR HEMOGLOBIN 26.9 pg (29.0-33.0); MEAN CORPUSCULAR HGB CONC 26.8 g/dl (32.0-37.0); MEAN CORPUSCULAR VOLUME 100.3 fl (82.0-101.0); MEAN PLATELET VOLUME 10.3 fl (7.4-10.4); PLATELET COUNT 317 10^3/UL (140-415); RED BLOOD COUNT 3.09 10^6/ul (4.70-6.10); RED CELL DISTRIBUTION WIDTH 19.1 % (11.5-14.5); WHITE BLOOD COUNT 26.1 10^3/ul (4.8-10.8)
[2016-09-05] MEDS: ALBUTEROL HFA 8 GM INHALER INH SCH ×2 (08:10→15:08)
[2016-09-05] MEDS: MULTIVITAMINS THERAPEUTIC TAB PO SCH (08:31)
[2016-09-05] MEDS: MAGNESIUM OXIDE 400 MG TAB GTB SCH (08:31)
[2016-09-05] MEDS: LACTOBACILLUS CHEW TAB GTB SCH ×3 (08:31→20:29)
[2016-09-05] MEDS: FAMOTIDINE 20 MG TAB GTB SCH (08:31)
[2016-09-05] MEDS: POTASSIUM CHLORIDE 20 MEQ POWDER FOR ORAL SOLN GTB SCH ×2 (08:32→20:29)
[2016-09-05] MEDS: NYSTATIN SUSP 5 ML CUP PO SCH ×4 (08:32→20:29)
[2016-09-05] MEDS: PAROXETINE 10 MG TAB PO SCH (08:32)
[2016-09-05] MEDS: SODIUM HYPOCHLORITE 0.125% 473 ML BTL IRR SCH ×2 (08:33→20:30)
[2016-09-05] MEDS: ASCORBIC ACID 500 MG TAB GTB SCH ×2 (08:33→20:29)
[2016-09-05] MEDS: ZINC SULFATE 220 MG CAP GTB SCH (08:33)
[2016-09-05] MEDS: SODIUM HYPOCHLORITE 1/40% 1L IRRIG IRR SCH ×2 (08:33→20:29)
[2016-09-05] MEDS: ENOXAPARIN 40 MG/0.4 ML SYG SC SCH (08:37)
[2016-09-05] MEDS: COLISTIMETHATE 75 MG in SOD CHLORIDE 0.9% 100 ML IVPB SCH ×2 (08:39→20:30)
[2016-09-05] MEDS: LINEZOLID 600 MG/D5W (PMX) 300 ML IVPB SCH ×2 (08:39→21:07)
[2016-09-05 09:14] LABS: POTASSIUM 3.8 mmol/L (3.5-5.1)
[2016-09-05 09:16] LABS: CREATININE 0.39 mg/dl (0.61-1.24)
[2016-09-05] MEDS: TOBRAMYCIN/0.25NS 300 MG/5 ML INHAL NEB SCH ×2 (09:26→19:21)
[2016-09-05 10:06] LABS: POTASSIUM 4.3 mmol/L (3.5-5.1)
[2016-09-05 10:08] LABS: CREATININE 0.42 mg/dl (0.61-1.24)
[2016-09-05 10:09] LABS: CALCIUM 7.9 mg/dl (8.4-10.2)
[2016-09-05 10:23] LABS: EOSINOPHILS # 0.8 10^3/ul (0.0-0.5); LYMPHOCYTES # 0.3 10^3/ul (0.8-2.9); MONOCYTE # 1.6 10^3/ul (0.3-0.9); NEUTROPHIL # 22.4 10^3/ul (1.6-7.5)
--- NOTE | 2016-09-05 10:31 | CONS ---
Date/Time of Note Date/Time of Note DATE: 09/05/16 TIME: 10:27 Consult Date/Type/Reason Admit Date/Time Jul 31, 2016 at 14:20 Initial Consult Date 08/02/16 Type of Consultation: pulmonary intensive care Subjective Patient remains on multiple vasopressors remains tachycardic Opens eyes remains somnolent most the time however Objective Vital Signs Date Time Temp Pulse Resp B/P Pulse Ox O2 Delivery O2 Flow Rate FiO2 09/05/16 06:30 118 24 09/05/16 06:15 103/79 09/05/16 05:22 100 50 09/05/16 04:00 99.0 09/04/16 18:45 Mechanical Ventilator Intake and Output 09/04/16 09/04/16 09/05/16 15:00 23:00 07:00 Intake Total 1410.62 ml 2078.75 ml 2061 ml Output Total 920 ml 1330 ml 1428 ml Balance 490.62 ml 748.75 ml 633 ml Exam PHYSICAL EXAMINATION GENERAL: Chronically ill-appearing gentleman on mechanical ventilation VITAL SIGNS: see below. HEENT: Pupils equal, round, and reactive to light. Tracheostomy site clean and intact. CARDIAC: S1, S2, tachycardia. CHEST: Diminished air entry bilaterally. ABDOMEN: Mildly distended. No bowel sounds. EXTREMITIES: No cyanosis, clubbing edema +1 NEUROLOGIC: Generalized weakness Results/Medications Result Diagram: 09/05/16 0437 09/05/16 0930 Results 24 hrs Laboratory Tests Test 09/04/16 14:26 09/04/16 18:48 09/05/16 00:46 09/05/16 04:37 Bedside Glucose 208 172 240 H White Blood Count 26.1 #H Red Blood Count 3.09 L Hemoglobin 8.3 L Hematocrit 31.0 L Mean Corpuscular Volume 100.3 Mean Corpuscular Hemoglobin 26.9 L Mean Corpuscular Hemoglobin Concent 26.8 L Red Cell Distribution Width 19.1 H Platelet Count 317 # Mean Platelet Volume 10.3 Neutrophils % 86.0 H Band Neutrophils % 4.0 Lymphocytes % 1.0 L Monocytes % 6.0 Eosinophils % 3.0 Neutrophils # 22.4 H Lymphocytes # 0.3 L Monocytes # 1.6 H Eosinophils # 0.8 H Differential Comment MANUAL DIFF Test 09/05/16 05:33 09/05/16 07:15 09/05/16 09:30 Bedside Glucose 260 H Sodium Level 124 #L 135 Potassium Level 3.8 4.3 Chloride Level 95 L 104 Carbon Dioxide Level 21 25 Anion Gap 12 10 Blood Urea Nitrogen 14 16 Creatinine 0.39 L 0.42 L Glucose Level 616 #*H 298 #H Calcium Level 7.0 L 7.9 L Medications Current Medications Ondansetron HCl (Zofran Inj) 4 mg Q6H PRN IV NAUSEA AND/OR VOMITING Last administered on 08/15/16 05:11; Admin Dose 4 MG; Start 07/31/16 at 15:00 Morphine Sulfate (morphine) 2 mg Q4H PRN IV SEVERE PAIN LEVEL 7-10 Last administered on 09/03/16 11:32; Admin Dose 2 MG; Start 07/31/16 at 15:00 Magnesium Hydroxide (Milk Of Mag) 30 ml DAILY PRN PO CONSTIPATION Last administered on 09/03/16 15:46; Admin Dose 30 ML; Start 07/31/16 at 15:00 Sodium Biphosphate/ Sodium Phosphate (Fleet Enema) 133 ml DAILY PRN [place] CONSTIPATION; Start 07/31/16 at 15:00 Hydralazine HCl (Apresoline) 10 mg Q6H PRN IV ELEVATED BLOOD PRESSURE; Start at 15:00 Nitroglycerin (Nitroglycerin (Sl Tab) 0.4 Mg) 1 tab Q5M PRN SL ANGINA; Start at 15:00 Miscellaneous Information 1 ea NOTE XX ; Start 07/31/16 at 16:30 Glucose (Glutose) 15 gm Q15M PRN PO DECREASED GLUCOSE; Start 07/31/16 at 16:30 Glucose (Glutose) 22.5 gm Q15M PRN PO DECREASED GLUCOSE; Start 07/31/16 at 16: 30 Dextrose (D50w Syringe) 25 ml Q15M PRN IV DECREASED GLUCOSE; Start 07/31/16 at 16:30 Dextrose (D50w Syringe) 50 ml Q15M PRN IV DECREASED GLUCOSE; Start 07/31/16 at 16:30 Glucagon (Glucagen) 1 mg Q15M PRN IM DECREASED GLUCOSE; Start 07/31/16 at 16:30 Glucose (Glutose) 15 gm Q15M PRN BUCCAL DECREASED GLUCOSE; Start 07/31/16 at 16 :30 Sodium Hypochlorite (Dakin'S (1/4 Strength)) 1 applic BID IRR Last administered on 09/05/16 08:33; Admin Dose 1 APPLIC; Start 08/01/16 at 21:00 Zinc Sulfate (Zinc Sulfate) 220 mg DAILY GTB Last administered on 09/05/16 08: 33; Admin Dose 220 MG; Start 08/03/16 at 11:30 Multivitamins Therapeutic (Theragran) 1 tab DAILY PO Last administered on 08:31; Admin Dose 1 TAB; Start 08/03/16 at 11:30 Ascorbic Acid (Vitamin C) 500 mg BID GTB Last administered on 09/05/16 08:33; Admin Dose 500 MG; Start 08/03/16 at 11:30 Sodium Hypochlorite (Dakin'S (Dilute 1/40%)) 1 applic BID IRR Last administered on 09/05/16 08:33; Admin Dose 1 APPLIC; Start 08/04/16 at 12:00 Levothyroxine Sodium (Synthroid) 25 mcg DAILY@06 PO Last administered on 05:16; Admin Dose 25 MCG; Start 08/11/16 at 06:00 Paroxetine HCl (Paxil) 10 mg DAILY PO Last administered on 09/05/16 08:32; Admin Dose 10 MG; Start 08/11/16 at 21:00 Insulin Aspart (Novolog Insulin Pen) NOVOLOG *MODERATE* ALGORI... Q6 SC Last administered on 09/05/16 05:37; Admin Dose 6 UNIT; Start 08/13/16 at 00:00 Lactobacillus Acidoph/Bulgaricus (Floranex) 1 tab TID GTB Last administered on 09/05/16 08:31; Admin Dose 1 TAB; Start 08/15/16 at 21:30 Metformin HCl (Glucophage) 500 mg Q12 GTB Last administered on 08/27/16 08:54 ; Admin Dose 500 MG; Start 08/15/16 at 21:30; Status Future Hold Acetaminophen (Tylenol Tab) 650 mg Q6H PRN GTB PAIN AND OR ELEVATED TEMP Last administered on 09/04/16 18:42; Admin Dose 650 MG; Start 08/15/16 at 21:30 Magnesium Oxide (Mag-Ox 400) 400 mg DAILY GTB Last administered on 09/05/16 08: 31; Admin Dose 400 MG; Start 08/20/16 at 09:00 Enoxaparin Sodium (Lovenox) 40 mg DAILY SC Last administered on 09/05/16 08:37 ; Admin Dose 40 MG; Start 08/22/16 at 09:00 Famotidine (Pepcid) 20 mg DAILY GTB Last administered on 09/05/16 08:31; Admin Dose 20 MG; Start 08/22/16 at 09:00 Potassium Chloride (Potassium Chloride Pwd/Soln) 40 meq BID GTB Last administered on 09/05/16 08:32; Admin Dose 40 MEQ; Start 08/23/16 at 21:00 Nystatin 5 ml 5 ml QID PO Last administered on 09/05/16 08:32; Admin Dose 5 ML ; Start 08/25/16 at 17:00 Norepinephrine/ Dextrose (Levophed/D5W) 500 ml @ 1.87 mls/hr TITRATE IV Last administered on 09/04/16 22:35; Admin Dose 56.25 MLS/HR; Start 08/28/16 at 09:00 Metronidazole 500 mg 500 mg Q8 PO Last administered on 09/05/16 05:16; Admin Dose 500 MG; Start 08/29/16 at 14:00 Colistimethate Sodium 75 mg/ Sodium Chloride 100 ml @ 200 mls/hr Q12 IVPB Last administered on 09/05/16 08:39; Admin Dose 200 MLS/HR; Start 08/31/16 at 21 :00 Linezolid 300 ml @ 300 mls/hr Q12 IVPB Last administered on 09/05/16 08:39; Admin Dose 300 MLS/HR; Start 08/31/16 at 21:00 Meropenem (Merrem 500 Mg/ 100 ml (Pmx)) 100 ml @ 200 mls/hr Q8H IVPB Last administered on 09/05/16 04:50; Admin Dose 200 MLS/HR; Start 09/01/16 at 20:00 Alprazolam 0.25 mg 0.25 mg Q6H PRN GTB ANXIETY Last administered on 09/02/16 22 :16; Admin Dose 0.25 MG; Start 09/02/16 at 16:00 Sodium Chloride 1,000 ml @ 100 mls/hr Q10H IV Last administered on 09/05/16 08 :30; Admin Dose 100 MLS/HR; Start 09/04/16 at 12:00 Phenylephrine HCl/ Dextrose (Jabari-Syneph/D5W) 500 ml @ 75 mls/hr TITRATE IV Last administered on 09/05/16 05:25; Admin Dose 120 MLS/HR; Start 09/04/16 at 21: 00 Lorazepam (Ativan) 0.5 mg Q6H PRN IV ANXIETY; Start 09/05/16 at 10:30; Status UNV Assessment/Plan Chief Complaint/Hosp Course Assessment 1. Vent dependent respiratory failure 2. Refractory septic shock likely polymicrobial 3. Significant anemia likely of chronic disease 4. Dysphagia with G-tube 5. History of quadriplegia 6. Septic shock Plan 1. Continue mechanical ventilation 2. Continue broad-spectrum antibiotic coverage 3. Continue wound care 4. DVT and GI prophylaxis 5. Tube feeding as tolerated 6. Vasopressors Disposition Continue current level of care Palliative care consult Problems: ABI FLOR MD, [facility] Sep 05, 2016 10:31
[2016-09-05] MEDS: LORAZEPAM 2 MG INJ IV PRN (10:45)
--- NOTE | 2016-09-05 10:55 | PN ---
Date/Time of Note Date/Time of Note DATE: 09/05/16 TIME: 10:42 Assessment/Plan VTE Prophylaxis VTE Prophylaxis Intervention: LMWH Lines/Catheters IV Catheter Type (from Nrs): portacath Central line still needed: Yes Urinary Cath still in place: Yes Reason Cath still needed: other (indicate) Assessment/Plan Assessment/Plan 46-year-old male sent in with fever and diaphoresis with findings of septic shock. 1) Overwhelming Sepsis/shock - sec to HCAP likely + decub ulcer infx's, now with shock - on pressor support. sp bronch/atb's. 2) Decubitus wound/ MDR organisms. Diverting colostomy & debridement may not be feasible while on vent. quality of life will not improve post therapy. 3) Quadriplegia 2/2 Ho C2 fracture; poor prognosis; palliative care eval appreciated 4) VDRF; cont vent, f/u pulm rec's 5) Chr CHF/ systolic? - monitor 6) Ho c diff - monitor 7. Malnutrition; cont peg/feeds/free water. 8. Past tobacco - monitor 9. Hypernatremia - resolved now 10. Elevated Ca : resolved 11. Hypothyroidism: on Synthroid 12. Depression 13. Chronic Pain 14. Anemia of chronic disease + likely chronic blood loss from severe decubiti : Transfusion PRN PLAN: * Elevated D-dimer noted : will get USS of all extremities to r/o DVT and CTA as patient continues to complain of inability to breathe despite vent support * Low dose ativan to help with air hunger * Continue to wean pressors as much as possible * Continue abx per ID * Continue vent support and mgt per pulm * Continue tube feeds * Continue ICU care and support * Patient is not looking good, prognosis is grim * Patient is now a chemical code only Critical care time spent with pt care today = 40 min. Subjective 24 Hr Interval Summary Free Text/Dictation remains on pressor support looks better than yesterday, slightly anxious Exam/Review of Systems Vital Signs Vitals Vital Signs Date Time Temp Pulse Resp B/P Pulse Ox O2 Delivery O2 Flow Rate FiO2 09/05/16 06:30 118 24 09/05/16 06:15 103/79 09/05/16 05:22 100 50 09/05/16 04:00 99.0 09/04/16 18:45 Mechanical Ventilator Intake and Output 09/04/16 09/04/16 09/05/16 15:00 23:00 07:00 Intake Total 1410.62 ml 2078.75 ml 2061 ml Output Total 920 ml 1330 ml 1428 ml Balance 490.62 ml 748.75 ml 633 ml Exam Constitutional: alert, oriented (?), other somnolent, anxious Psych: anxiety Head: normocephalic Eyes: PERRL ENMT: No mucosa pink and moist Neck: other (trach to vent) Respiratory: crackles/rales (coarse diffuse crackles), diminished breath sounds Cardiovascular: regular rate and rhythm Gastrointestinal: bowel sounds, distended (mildly), firm (mildly) Extremities: edema (in extremities only, slight sheen to both legs) Neurological: lethargic, other (C2 quadriplegic) Results Result Diagram: 09/05/16 0437 09/05/16 0930 Results 24 hrs Laboratory Tests Test 09/04/16 14:26 09/04/16 18:48 09/05/16 00:46 09/05/16 04:37 Bedside Glucose 208 172 240 H White Blood Count 26.1 #H Red Blood Count 3.09 L Hemoglobin 8.3 L Hematocrit 31.0 L Mean Corpuscular Volume 100.3 Mean Corpuscular Hemoglobin 26.9 L Mean Corpuscular Hemoglobin Concent 26.8 L Red Cell Distribution Width 19.1 H Platelet Count 317 # Mean Platelet Volume 10.3 Neutrophils % 86.0 H Band Neutrophils % 4.0 Lymphocytes % 1.0 L Monocytes % 6.0 Eosinophils % 3.0 Neutrophils # 22.4 H Lymphocytes # 0.3 L Monocytes # 1.6 H Eosinophils # 0.8 H Differential Comment MANUAL DIFF Test 09/05/16 05:33 09/05/16 07:15 09/05/16 09:30 Bedside Glucose 260 H Sodium Level 124 #L 135 Potassium Level 3.8 4.3 Chloride Level 95 L 104 Carbon Dioxide Level 21 25 Anion Gap 12 10 Blood Urea Nitrogen 14 16 Creatinine 0.39 L 0.42 L Glucose Level 616 #*H 298 #H Calcium Level 7.0 L 7.9 L Medications Medications Current Medications Ondansetron HCl (Zofran Inj) 4 mg Q6H PRN IV NAUSEA AND/OR VOMITING Last administered on 08/15/16t 05:11; Admin Dose 4 MG; Start 07/31/16 at 15:00 Morphine Sulfate (morphine) 2 mg Q4H PRN IV SEVERE PAIN LEVEL 7-10 Last administered on 09/03/16 11:32; Admin Dose 2 MG; Start 07/31/16 at 15:00 Magnesium Hydroxide (Milk Of Mag) 30 ml DAILY PRN PO CONSTIPATION Last administered on 09/03/16 15:46; Admin Dose 30 ML; Start 07/31/16 at 15:00 Sodium Biphosphate/ Sodium Phosphate (Fleet Enema) 133 ml DAILY PRN [place] CONSTIPATION; Start 07/31/16 at 15:00 Hydralazine HCl (Apresoline) 10 mg Q6H PRN IV ELEVATED BLOOD PRESSURE; Start at 15:00 Nitroglycerin (Nitroglycerin (Sl Tab) 0.4 Mg) 1 tab Q5M PRN SL ANGINA; Start at 15:00 Miscellaneous Information 1 ea NOTE XX ; Start 07/31/16 at 16:30 Glucose (Glutose) 15 gm Q15M PRN PO DECREASED GLUCOSE; Start 07/31/16 at 16:30 Glucose (Glutose) 22.5 gm Q15M PRN PO DECREASED GLUCOSE; Start 07/31/16 at 16: 30 Dextrose (D50w Syringe) 25 ml Q15M PRN IV DECREASED GLUCOSE; Start 07/31/16 at 16:30 Dextrose (D50w Syringe) 50 ml Q15M PRN IV DECREASED GLUCOSE; Start 07/31/16 at 16:30 Glucagon (Glucagen) 1 mg Q15M PRN IM DECREASED GLUCOSE; Start 07/31/16 at 16:30 Glucose (Glutose) 15 gm Q15M PRN BUCCAL DECREASED GLUCOSE; Start 07/31/16 at 16 :30 Sodium Hypochlorite (Dakin'S (1/4 Strength)) 1 applic BID IRR Last administered on 09/05/16 08:33; Admin Dose 1 APPLIC; Start 08/01/16 at 21:00 Zinc Sulfate (Zinc Sulfate) 220 mg DAILY GTB Last administered on 09/05/16 08: 33; Admin Dose 220 MG; Start 08/03/16 at 11:30 Multivitamins Therapeutic (Theragran) 1 tab DAILY PO Last administered on 08:31; Admin Dose 1 TAB; Start 08/03/16 at 11:30 Ascorbic Acid (Vitamin C) 500 mg BID GTB Last administered on 09/05/16 08:33; Admin Dose 500 MG; Start 08/03/16 at 11:30 Sodium Hypochlorite (Dakin'S (Dilute 1/40%)) 1 applic BID IRR Last administered on 09/05/16 08:33; Admin Dose 1 APPLIC; Start 08/04/16 at 12:00 Levothyroxine Sodium (Synthroid) 25 mcg DAILY@06 PO Last administered on 05:16; Admin Dose 25 MCG; Start 08/11/16 at 06:00 Paroxetine HCl (Paxil) 10 mg DAILY PO Last administered on 09/05/16 08:32; Admin Dose 10 MG; Start 08/11/16 at 21:00 Insulin Aspart (Novolog Insulin Pen) NOVOLOG *MODERATE* ALGORI... Q6 SC Last administered on 09/05/16 05:37; Admin Dose 6 UNIT; Start 08/13/16 at 00:00 Lactobacillus Acidoph/Bulgaricus (Floranex) 1 tab TID GTB Last administered on 09/05/16 08:31; Admin Dose 1 TAB; Start 08/15/16 at 21:30 Metformin HCl (Glucophage) 500 mg Q12 GTB Last administered on 08/27/16 08:54 ; Admin Dose 500 MG; Start 08/15/16 at 21:30; Status Future Hold Acetaminophen (Tylenol Tab) 650 mg Q6H PRN GTB PAIN AND OR ELEVATED TEMP Last administered on 09/04/16 18:42; Admin Dose 650 MG; Start 08/15/16 at 21:30 Magnesium Oxide (Mag-Ox 400) 400 mg DAILY GTB Last administered on 09/05/16 08: 31; Admin Dose 400 MG; Start 08/20/16 at 09:00 Enoxaparin Sodium (Lovenox) 40 mg DAILY SC Last administered on 09/05/16 08:37 ; Admin Dose 40 MG; Start 08/22/16 at 09:00 Famotidine (Pepcid) 20 mg DAILY GTB Last administered on 09/05/16 08:31; Admin Dose 20 MG; Start 08/22/16 at 09:00 Potassium Chloride (Potassium Chloride Pwd/Soln) 40 meq BID GTB Last administered on 09/05/16 08:32; Admin Dose 40 MEQ; Start 08/23/16 at 21:00 Nystatin 5 ml 5 ml QID PO Last administered on 09/05/16 08:32; Admin Dose 5 ML ; Start 08/25/16 at 17:00 Norepinephrine/ Dextrose (Levophed/D5W) 500 ml @ 1.87 mls/hr TITRATE IV Last administered on 09/04/16 22:35; Admin Dose 56.25 MLS/HR; Start 08/28/16 at 09:00 Metronidazole 500 mg 500 mg Q8 PO Last administered on 09/05/16 05:16; Admin Dose 500 MG; Start 08/29/16 at 14:00 Colistimethate Sodium 75 mg/ Sodium Chloride 100 ml @ 200 mls/hr Q12 IVPB Last administered on 09/05/16 08:39; Admin Dose 200 MLS/HR; Start 08/31/16 at 21 :00 Linezolid 300 ml @ 300 mls/hr Q12 IVPB Last administered on 09/05/16 08:39; Admin Dose 300 MLS/HR; Start 08/31/16 at 21:00 Meropenem (Merrem 500 Mg/ 100 ml (Pmx)) 100 ml @ 200 mls/hr Q8H IVPB Last administered on 09/05/16 04:50; Admin Dose 200 MLS/HR; Start 09/01/16 at 20:00 Alprazolam 0.25 mg 0.25 mg Q6H PRN GTB ANXIETY Last administered on 09/02/16 22 :16; Admin Dose 0.25 MG; Start 09/02/16 at 16:00 Sodium Chloride 1,000 ml @ 100 mls/hr Q10H IV Last administered on 09/05/16 08 :30; Admin Dose 100 MLS/HR; Start 09/04/16 at 12:00 Phenylephrine HCl/ Dextrose (Jabari-Syneph/D5W) 500 ml @ 75 mls/hr TITRATE IV Last administered on 09/05/16 05:25; Admin Dose 120 MLS/HR; Start 09/04/16 at 21: 00 Lorazepam (Ativan) 0.5 mg Q6H PRN IV ANXIETY; Start 09/05/16 at 10:30 Hydrocortisone (Solu-Cortef) 100 mg Q8 IV ; Start 09/05/16 at 14:00 ALDO BRADEN Sep 05, 2016 10:54
--- NOTE | 2016-09-05 12:16 | CONS ---
Date/Time of Note Date/Time of Note DATE: 09/05/16 TIME: 12:15 Assessment/Plan Assessment/Plan Additional Assessment/Plan Septic shock Acute decompensated systolic congestive heart failure Sinus tachycardia C2 fracture and quadriplegic Respiratory failure Cardiomyopathy with ejection fraction 50% via echo on previous admission Decubiti Hypotension -IV pressor requirements decreasing, titrate pressor to maintain SBP greater than 90 and her map above 60, continue to hold any antihypertensives. Antibiotics as per infectious disease. Consultation Date/Type/Reason Admit Date/Time Jul 31, 2016 at 14:20 Type of Consultation: cv 24 HR Interval Summary Free Text/Dictation Requiring less IV pressor, more awake today. Denies shortness of breath Exam/Review of Systems Vital Signs Vitals Vital Signs Date Time Temp Pulse Resp B/P Pulse Ox O2 Delivery O2 Flow Rate FiO2 09/05/16 11:45 132 24 109/77 100 Mechanical Ventilator 09/05/16 11:18 45 09/05/16 08:00 98.2 Intake and Output 09/04/16 09/04/16 09/05/16 15:00 23:00 07:00 Intake Total 1410.62 ml 2078.75 ml 2061 ml Output Total 920 ml 1330 ml 1428 ml Balance 490.62 ml 748.75 ml 633 ml Exam Awake but appears tired, no apparent distress Neck: other (Trach) Respiratory: crackles/rales, other (Coarse breath sounds) Cardiovascular: other (S1-S2 heard), regular rate and rhythm (Tachycardic) Gastrointestinal: bowel sounds, distended, non-tender, soft Extremities: edema Results Result Diagram: 09/05/16 0437 09/05/16 0930 Results 24 hrs Laboratory Tests Test 09/04/16 14:26 09/04/16 18:48 09/05/16 00:46 09/05/16 04:37 Bedside Glucose 208 172 240 H White Blood Count 26.1 #H Red Blood Count 3.09 L Hemoglobin 8.3 L Hematocrit 31.0 L Mean Corpuscular Volume 100.3 Mean Corpuscular Hemoglobin 26.9 L Mean Corpuscular Hemoglobin Concent 26.8 L Red Cell Distribution Width 19.1 H Platelet Count 317 # Mean Platelet Volume 10.3 Neutrophils % 86.0 H Band Neutrophils % 4.0 Lymphocytes % 1.0 L Monocytes % 6.0 Eosinophils % 3.0 Neutrophils # 22.4 H Lymphocytes # 0.3 L Monocytes # 1.6 H Eosinophils # 0.8 H Differential Comment MANUAL DIFF Test 09/05/16 05:33 09/05/16 07:15 09/05/16 09:30 09/05/16 12:06 Bedside Glucose 260 H 239 H Sodium Level 124 #L 135 Potassium Level 3.8 4.3 Chloride Level 95 L 104 Carbon Dioxide Level 21 25 Anion Gap 12 10 Blood Urea Nitrogen 14 16 Creatinine 0.39 L 0.42 L Glucose Level 616 #*H 298 #H Calcium Level 7.0 L 7.9 L Medications Medications Current Medications Ondansetron HCl (Zofran Inj) 4 mg Q6H PRN IV NAUSEA AND/OR VOMITING Last administered on 08/15/16 05:11; Admin Dose 4 MG; Start 07/31/16 at 15:00 Morphine Sulfate (morphine) 2 mg Q4H PRN IV SEVERE PAIN LEVEL 7-10 Last administered on 09/03/16 11:32; Admin Dose 2 MG; Start 07/31/16 at 15:00 Magnesium Hydroxide (Milk Of Mag) 30 ml DAILY PRN PO CONSTIPATION Last administered on 09/03/16 15:46; Admin Dose 30 ML; Start 07/31/16 at 15:00 Sodium Biphosphate/ Sodium Phosphate (Fleet Enema) 133 ml DAILY PRN [place] CONSTIPATION; Start 07/31/16 at 15:00 Hydralazine HCl (Apresoline) 10 mg Q6H PRN IV ELEVATED BLOOD PRESSURE; Start at 15:00 Nitroglycerin (Nitroglycerin (Sl Tab) 0.4 Mg) 1 tab Q5M PRN SL ANGINA; Start at 15:00 Miscellaneous Information 1 ea NOTE XX ; Start 07/31/16 at 16:30 Glucose (Glutose) 15 gm Q15M PRN PO DECREASED GLUCOSE; Start 07/31/16 at 16:30 Glucose (Glutose) 22.5 gm Q15M PRN PO DECREASED GLUCOSE; Start 07/31/16 at 16: 30 Dextrose (D50w Syringe) 25 ml Q15M PRN IV DECREASED GLUCOSE; Start 07/31/16 at 16:30 Dextrose (D50w Syringe) 50 ml Q15M PRN IV DECREASED GLUCOSE; Start 07/31/16 at 16:30 Glucagon (Glucagen) 1 mg Q15M PRN IM DECREASED GLUCOSE; Start 07/31/16 at 16:30 Glucose (Glutose) 15 gm Q15M PRN BUCCAL DECREASED GLUCOSE; Start 07/31/16 at 16 :30 Sodium Hypochlorite (Dakin'S (1/4 Strength)) 1 applic BID IRR Last administered on 09/05/16 08:33; Admin Dose 1 APPLIC; Start 08/01/16 at 21:00 Zinc Sulfate (Zinc Sulfate) 220 mg DAILY GTB Last administered on 09/05/16 08: 33; Admin Dose 220 MG; Start 08/03/16 at 11:30 Multivitamins Therapeutic (Theragran) 1 tab DAILY PO Last administered on 08:31; Admin Dose 1 TAB; Start 08/03/16 at 11:30 Ascorbic Acid (Vitamin C) 500 mg BID GTB Last administered on 09/05/16 08:33; Admin Dose 500 MG; Start 08/03/16 at 11:30 Sodium Hypochlorite (Dakin'S (Dilute 1/40%)) 1 applic BID IRR Last administered on 09/05/16 08:33; Admin Dose 1 APPLIC; Start 08/04/16 at 12:00 Levothyroxine Sodium (Synthroid) 25 mcg DAILY@06 PO Last administered on 05:16; Admin Dose 25 MCG; Start 08/11/16 at 06:00 Paroxetine HCl (Paxil) 10 mg DAILY PO Last administered on 09/05/16 08:32; Admin Dose 10 MG; Start 08/11/16 at 21:00 Insulin Aspart (Novolog Insulin Pen) NOVOLOG *MODERATE* ALGORI... Q6 SC Last administered on 09/05/16 05:37; Admin Dose 6 UNIT; Start 08/13/16 at 00:00 Lactobacillus Acidoph/Bulgaricus (Floranex) 1 tab TID GTB Last administered on 09/05/16 08:31; Admin Dose 1 TAB; Start 08/15/16 at 21:30 Metformin HCl (Glucophage) 500 mg Q12 GTB Last administered on 08/27/16 08:54 ; Admin Dose 500 MG; Start 08/15/16 at 21:30; Status Future Hold Acetaminophen (Tylenol Tab) 650 mg Q6H PRN GTB PAIN AND OR ELEVATED TEMP Last administered on 09/04/16 18:42; Admin Dose 650 MG; Start 08/15/16 at 21:30 Magnesium Oxide (Mag-Ox 400) 400 mg DAILY GTB Last administered on 09/05/16 08: 31; Admin Dose 400 MG; Start 08/20/16 at 09:00 Enoxaparin Sodium (Lovenox) 40 mg DAILY SC Last administered on 09/05/16 08:37 ; Admin Dose 40 MG; Start 08/22/16 at 09:00 Famotidine (Pepcid) 20 mg DAILY GTB Last administered on 09/05/16 08:31; Admin Dose 20 MG; Start 08/22/16 at 09:00 Potassium Chloride (Potassium Chloride Pwd/Soln) 40 meq BID GTB Last administered on 09/05/16 08:32; Admin Dose 40 MEQ; Start 08/23/16 at 21:00 Nystatin 5 ml 5 ml QID PO Last administered on 09/05/16 08:32; Admin Dose 5 ML ; Start 08/25/16 at 17:00 Norepinephrine/ Dextrose (Levophed/D5W) 500 ml @ 1.87 mls/hr TITRATE IV Last administered on 09/04/16 22:35; Admin Dose 56.25 MLS/HR; Start 08/28/16 at 09:00 Metronidazole 500 mg 500 mg Q8 PO Last administered on 09/05/16 05:16; Admin Dose 500 MG; Start 08/29/16 at 14:00 Colistimethate Sodium 75 mg/ Sodium Chloride 100 ml @ 200 mls/hr Q12 IVPB Last administered on 09/05/16 08:39; Admin Dose 200 MLS/HR; Start 08/31/16 at 21 :00 Linezolid 300 ml @ 300 mls/hr Q12 IVPB Last administered on 09/05/16 08:39; Admin Dose 300 MLS/HR; Start 08/31/16 at 21:00 Meropenem (Merrem 500 Mg/ 100 ml (Pmx)) 100 ml @ 200 mls/hr Q8H IVPB Last administered on 09/05/16 12:03; Admin Dose 200 MLS/HR; Start 09/01/16 at 20:00 Alprazolam 0.25 mg 0.25 mg Q6H PRN GTB ANXIETY Last administered on 09/02/16 22 :16; Admin Dose 0.25 MG; Start 09/02/16 at 16:00 Sodium Chloride 1,000 ml @ 100 mls/hr Q10H IV Last administered on 09/05/16 08 :30; Admin Dose 100 MLS/HR; Start 09/04/16 at 12:00 Phenylephrine HCl/ Dextrose (Jabari-Syneph/D5W) 500 ml @ 75 mls/hr TITRATE IV Last administered on 09/05/16 05:25; Admin Dose 120 MLS/HR; Start 09/04/16 at 21: 00 Lorazepam (Ativan) 0.5 mg Q6H PRN IV ANXIETY; Start 09/05/16 at 10:30 Hydrocortisone (Solu-Cortef) 100 mg Q8 IV ; Start 09/05/16 at 14:00 Kb Barrett DO Sep 05, 2016 12:16
--- NOTE | 2016-09-05 13:35 | PN ---
DATE: 09/05/2016 PALLIATIVE CARE PROGRESS NOTE SUBJECTIVE: The patient remains in the intensive care unit. There has been no change; if anything, worsening of his overall clinical condition, with the patient being barely responsive today compare d to yesterday. OBJECTIVE: VITAL SIGNS: Blood pressure 109/77, pulse 132 and regular, respirations of 24, temperature of 98.2 degrees, 100% saturation on 40% FIO2. The patient remains vent dependent. Prognosis is extremely poor, palliative care performance scale 10%. Goals of care discussed with patient yesterday. He wants to continue with current level of c are, but CHEMICAL CODE. Psychosocial support is his family, close family members including 2 childr en and 1 brother. I did believe that patient did understand the gravity of his medical condition, bu t I do not believe that he has capacity to make that decision at this time. I will ask for a family conference. Dictated By: MARYSOL BRADFORD MD, LP/SCOTTIE Conf#: [id number] DID#: [id number]
--- NOTE | 2016-09-05 13:41 | PN ---
DATE: 09/05/2016 SUBJECTIVE: No acute changes. The patient remains on pressors, tachycardic. Spiked a fever yester day of 101.9, currently with a temperature of 98.2, pulse 135, respirations 24, blood pressure 109/7 7, saturation 100% on 45% FIO2. LABORATORY DATA: WBC 26.1, H and H 8.3 and 31, platelets 317, neutrophils 86, bands 4, lymphs 1, mo nos 6. BUN 16, creatinine 0.42. INDWELLINGS: Trach, PEG, Oliveira, left subclavian Port-A-Cath. MICROBIOLOGY: Blood cultures, urine culture and nares swab since the end of August remain negative. Stool for C. diff on 08/25/2016 was negative. ANTIMICROBIALS: 1. Merrem. 2. Zyvox. 3. Colistin. 4. Tobramycin inhalation. 5. Flagyl. PHYSICAL EXAMINATION: GENERAL: Chronically ill-appearing, middle-aged man who is in no distress. HEENT: Head atraumatic, normocephalic. Sclerae anicteric. Buccal mucosa dry. NECK: Supple. Tracheostomy present. CHEST: Rise symmetrical. Breath sounds diminished with scattered crackles. HEART: S1, S2. ABDOMEN: Soft. Bowel sounds hypoactive. EXTREMITIES: With bilateral edema. SKIN: With multiple chronic wounds. ASSESSMENT: 1. Severe sepsis with shock. 2. Persistent pneumonia with increased secretions. 3. Multiple wounds. 4. Status post urinary tract infection. 5. Anemia. 6. Sinus tachycardia. 7. Paraplegia, status post C-spine injury. PLAN: The patient is doing poorly, again cultures have been negative. He does have a left chest Po rt-A-Cath that at this point given his shock and long hospitalization without any improvement, I wou ld recommend to discontinue and send the tip for culture. The patient's code status was changed to chemical code only. We are going to discontinue meropenem. Continue other antibiotics. Add empiri c antifungal coverage. Overall, prognosis poor. Again, consider discontinuing Port-A-Cath. Dictated By: LESLIE FERARRO DICE MANAGER for ROGE HERNANDEZ/SCOTTIE Conf#: [id number] DID#: [id number]
[2016-09-05] MEDS: HYDROCORTISONE 100 MG INJ IV SCH ×2 (13:43→21:32)
[2016-09-05] MEDS ORDERED: IOHEXOL 300MG/ML 150 ML BTL ONE (14:28)
[2016-09-05] MEDS ORDERED: SOD CHLORIDE 0.9% 100 ML ONE (14:28)
[2016-09-05] MEDS ORDERED: CASPOFUNGIN 70 MG in SOD CHLORIDE 0.9% 250 ML IVPB ONE (14:30)
--- NOTE | 2016-09-05 15:17 | RADRPT ---
PROCEDURE: CTA Chest. CLINICAL INDICATION: Sepsis. Shortness of breath. TECHNIQUE: The study was performed utilizing a multidetector CT scanner. Direct spiral 1 mm axial sections were obtained from the thoracic inlet to the upper abdomen with the use of 100 cc of Omnipa que 350 nonionic intravenous contrast material and reformatted at 3 mm. Coronal reformations were ob tained. The images were reviewed on a PACS workstation. CT D I 17 mCi. Dose 763 mCi per centimeter COMPARISON: No prior studies are available for comparison. FINDINGS: There is no central or peripheral pulmonary embolism. Thoracic aorta is normal with no dissection o r aneurysm. No hilar or mediastinal adenopathy or masses present. There is a tracheostomy and a le ft IJ Port-A-Cath. There is dense alveolar consolidation throughout the right upper lobe. There is dense consolidation with partial collapse of the left lower lobe. Atelectasis is present deep in the right costophreni c recess. Ill-defined regions of consolidation are seen in each of the other lobes and segments. F ine nodular densities are seen throughout the lungs diffusely. No discrete masses identified. Ther e are small bilateral pleural effusions. No pericardial effusion is detected. No axillary, supracl avicular or internal mammary chain adenopathy is seen. No upper abdominal or adrenal mass is seen. There are small gallstones. There is trace perihepatic ascites. Spine is normal. No lytic or blastic lesions are visualized. IMPRESSION: No CT evidence for pulmonary embolus. No aortic dissection or aneurysm. Dense alveolar consolidation right upper lobe and left lower lobe with ill-defined nodular infiltrat es in each of the other lobes compatible with multi focal pneumonia. Fine nodular densities diffuse ly in both lungs. Metastatic disease cannot be ruled out. Clinical correlation suggested. Small bilateral pleural effusions. Cholelithiasis. Trace ascites. .Spenser Bhagat MD, MD Date Time Electronically viewed and signed by .Spenser Bhagat MD, on 09/05/2016 15:17 .A/
[2016-09-05] MEDS ORDERED: PHENYLephrine 160 MG in DEXTROSE 5% 484 ML IV SCH (23:00)
[2016-09-06] VITALS (105 sets, daily range): BP systolic 78–118; BP diastolic 56–88; PULSE 108–143; RESP 13–43
[2016-09-06] MEDS: INSULIN ASPART [NOVOLOG] 3 ML PEN SC SCH ×5 (00:03→23:44)
[2016-09-06] MEDS: LORAZEPAM 2 MG INJ IV PRN ×2 (01:21→20:12)
[2016-09-06] MEDS: SOD CHLORIDE 0.9% 1,000 ML IV SCH ×4 (04:00→23:57)
[2016-09-06 05:00] LABS: ADD SCAN DIFF NO
[2016-09-06 05:25] LABS: POTASSIUM 5.1 mmol/L (3.5-5.1)
[2016-09-06 05:28] LABS: CREATININE 0.35 mg/dl (0.61-1.24)
[2016-09-06 05:29] LABS: ABNORMAL IP MESSAGE 1; CALCIUM 7.5 mg/dl (8.4-10.2); HEMATOCRIT 34.4 % (42.0-52.0); HEMOGLOBIN 10.1 g/dl (14.0-18.0); MEAN CORPUSCULAR HEMOGLOBIN 27.4 pg (29.0-33.0); MEAN CORPUSCULAR HGB CONC 29.4 g/dl (32.0-37.0); MEAN CORPUSCULAR VOLUME 93.2 fl (82.0-101.0); MEAN PLATELET VOLUME 10.3 fl (7.4-10.4); PLATELET COUNT 359 10^3/UL (140-415); RED BLOOD COUNT 3.69 10^6/ul (4.70-6.10); RED CELL DISTRIBUTION WIDTH 17.8 % (11.5-14.5); WHITE BLOOD COUNT 30.9 10^3/ul (4.8-10.8)
[2016-09-06] MEDS: HYDROCORTISONE 100 MG INJ IV SCH ×3 (05:52→21:42)
[2016-09-06] MEDS: metroNIDAZOLE 500 MG TAB PO SCH ×3 (05:52→21:42)
[2016-09-06] MEDS: LEVOTHYROXINE 25 MCG TAB PO SCH ×2 (05:52→08:46)
[2016-09-06] MEDS: ALBUTEROL HFA 8 GM INHALER INH SCH ×2 (07:32→16:13)
[2016-09-06] MEDS: MULTIVITAMINS THERAPEUTIC TAB PO SCH (08:46)
[2016-09-06] MEDS: NYSTATIN SUSP 5 ML CUP PO SCH ×4 (08:46→20:50)
[2016-09-06] MEDS: FAMOTIDINE 20 MG TAB GTB SCH (08:46)
[2016-09-06] MEDS: ZINC SULFATE 220 MG CAP GTB SCH (08:47)
[2016-09-06] MEDS: MAGNESIUM OXIDE 400 MG TAB GTB SCH (08:47)
[2016-09-06] MEDS: LACTOBACILLUS CHEW TAB GTB SCH ×3 (08:47→20:49)
[2016-09-06] MEDS: ASCORBIC ACID 500 MG TAB GTB SCH ×2 (08:47→20:49)
[2016-09-06] MEDS: POTASSIUM CHLORIDE 20 MEQ POWDER FOR ORAL SOLN GTB SCH ×2 (08:55→20:50)
[2016-09-06] MEDS: COLISTIMETHATE 75 MG in SOD CHLORIDE 0.9% 100 ML IVPB SCH ×2 (08:58→16:30)
[2016-09-06] MEDS: ENOXAPARIN 40 MG/0.4 ML SYG SC SCH (09:07)
[2016-09-06] MEDS: LINEZOLID 600 MG/D5W (PMX) 300 ML IVPB SCH ×2 (09:08→20:47)
[2016-09-06] MEDS: SODIUM HYPOCHLORITE 0.125% 473 ML BTL IRR SCH ×2 (09:08→20:50)
[2016-09-06] MEDS: SODIUM HYPOCHLORITE 1/40% 1L IRRIG IRR SCH ×2 (09:10→20:50)
[2016-09-06] MEDS: PAROXETINE 10 MG TAB PO SCH (09:15)
[2016-09-06] MEDS: TOBRAMYCIN/0.25NS 300 MG/5 ML INHAL NEB SCH ×2 (09:18→19:32)
--- NOTE | 2016-09-06 09:47 | CONS ---
Date/Time of Note Date/Time of Note DATE: 09/06/16 TIME: 09:45 Consult Date/Type/Reason Admit Date/Time Jul 31, 2016 at 14:20 Initial Consult Date 08/02/16 Type of Consultation: pulmonary ICU Subjective Patient remains stable this morning weaned off 1 vasopressor with decreasing levophed requirements Objective Vital Signs Date Time Temp Pulse Resp B/P Pulse Ox O2 Delivery O2 Flow Rate FiO2 09/06/16 09:15 126 24 97 40 09/06/16 06:45 93/60 Mechanical Ventilator 09/06/16 04:00 97.8 Intake and Output 09/05/16 09/05/16 09/06/16 15:00 23:00 07:00 Intake Total 2395.00 ml 2282.0 ml 1804.94 ml Output Total 1950 ml 1925 ml 1000 ml Balance 445.00 ml 357.0 ml 804.94 ml Exam PHYSICAL EXAMINATION GENERAL: Chronically ill-appearing gentleman on mechanical ventilation VITAL SIGNS: see below. HEENT: Pupils equal, round, and reactive to light. Tracheostomy site clean and intact. CARDIAC: S1, S2, CHEST: Diminished air entry bilaterally. ABDOMEN: Mildly distended. No bowel sounds. EXTREMITIES: No cyanosis, clubbing edema +1 NEUROLOGIC: Generalized weakness Results/Medications Result Diagram: 09/06/16 0400 09/06/16 0400 Results 24 hrs Laboratory Tests Test 09/05/16 12:06 09/05/16 18:06 09/06/16 00:00 09/06/16 04:00 Bedside Glucose 239 H 239 H 329 H White Blood Count 30.9 H Red Blood Count 3.69 L Hemoglobin 10.1 #L Hematocrit 34.4 L Mean Corpuscular Volume 93.2 Mean Corpuscular Hemoglobin 27.4 L Mean Corpuscular Hemoglobin Concent 29.4 L Red Cell Distribution Width 17.8 H Platelet Count 359 Mean Platelet Volume 10.3 Sodium Level 138 Potassium Level 5.1 Chloride Level 103 Carbon Dioxide Level 22 Anion Gap 18 #H Blood Urea Nitrogen 18 Creatinine 0.35 L Glucose Level 273 H Calcium Level 7.5 L Test 09/06/16 05:30 09/06/16 05:49 Lactic Acid Level 4.5 *H Bedside Glucose 238 H Medications Current Medications Ondansetron HCl (Zofran Inj) 4 mg Q6H PRN IV NAUSEA AND/OR VOMITING Last administered on 08/15/16 05:11; Admin Dose 4 MG; Start 07/31/16 at 15:00 Morphine Sulfate (morphine) 2 mg Q4H PRN IV SEVERE PAIN LEVEL 7-10 Last administered on 09/03/16 11:32; Admin Dose 2 MG; Start 07/31/16 at 15:00 Magnesium Hydroxide (Milk Of Mag) 30 ml DAILY PRN PO CONSTIPATION Last administered on 09/03/16 15:46; Admin Dose 30 ML; Start 07/31/16 at 15:00 Sodium Biphosphate/ Sodium Phosphate (Fleet Enema) 133 ml DAILY PRN [place] CONSTIPATION; Start 07/31/16 at 15:00 Hydralazine HCl (Apresoline) 10 mg Q6H PRN IV ELEVATED BLOOD PRESSURE; Start at 15:00 Nitroglycerin (Nitroglycerin (Sl Tab) 0.4 Mg) 1 tab Q5M PRN SL ANGINA; Start at 15:00 Miscellaneous Information 1 ea NOTE XX ; Start 07/31/16 at 16:30 Glucose (Glutose) 15 gm Q15M PRN PO DECREASED GLUCOSE; Start 07/31/16 at 16:30 Glucose (Glutose) 22.5 gm Q15M PRN PO DECREASED GLUCOSE; Start 07/31/16 at 16: 30 Dextrose (D50w Syringe) 25 ml Q15M PRN IV DECREASED GLUCOSE; Start 07/31/16 at 16:30 Dextrose (D50w Syringe) 50 ml Q15M PRN IV DECREASED GLUCOSE; Start 07/31/16 at 16:30 Glucagon (Glucagen) 1 mg Q15M PRN IM DECREASED GLUCOSE; Start 07/31/16 at 16:30 Glucose (Glutose) 15 gm Q15M PRN BUCCAL DECREASED GLUCOSE; Start 07/31/16 at 16 :30 Sodium Hypochlorite (Dakin'S (1/4 Strength)) 1 applic BID IRR Last administered on 09/06/16 09:08; Admin Dose 1 APPLIC; Start 08/01/16 at 21:00 Zinc Sulfate (Zinc Sulfate) 220 mg DAILY GTB Last administered on 09/06/16 08: 47; Admin Dose 220 MG; Start 08/03/16 at 11:30 Multivitamins Therapeutic (Theragran) 1 tab DAILY PO Last administered on 08:46; Admin Dose 1 TAB; Start 08/03/16 at 11:30 Ascorbic Acid (Vitamin C) 500 mg BID GTB Last administered on 09/06/16 08:47; Admin Dose 500 MG; Start 08/03/16 at 11:30 Sodium Hypochlorite (Dakin'S (Dilute 1/40%)) 1 applic BID IRR Last administered on 09/06/16 09:10; Admin Dose 1 APPLIC; Start 08/04/16 at 12:00 Levothyroxine Sodium (Synthroid) 25 mcg DAILY@06 PO Last administered on 08:46; Admin Dose 25 MCG; Start 08/11/16 at 06:00 Paroxetine HCl (Paxil) 10 mg DAILY PO Last administered on 09/06/16 09:15; Admin Dose 10 MG; Start 08/11/16 at 21:00 Insulin Aspart (Novolog Insulin Pen) NOVOLOG *MODERATE* ALGORI... Q6 SC Last administered on 09/06/16 05:50; Admin Dose 6 UNIT; Start 08/13/16 at 00:00 Lactobacillus Acidoph/Bulgaricus (Floranex) 1 tab TID GTB Last administered on 09/06/16 08:47; Admin Dose 1 TAB; Start 08/15/16 at 21:30 Metformin HCl (Glucophage) 500 mg Q12 GTB Last administered on 08/27/16 08:54 ; Admin Dose 500 MG; Start 08/15/16 at 21:30; Status Future Hold Acetaminophen (Tylenol Tab) 650 mg Q6H PRN GTB PAIN AND OR ELEVATED TEMP Last administered on 09/04/16 18:42; Admin Dose 650 MG; Start 08/15/16 at 21:30 Magnesium Oxide (Mag-Ox 400) 400 mg DAILY GTB Last administered on 09/06/16 08: 47; Admin Dose 400 MG; Start 08/20/16 at 09:00 Enoxaparin Sodium (Lovenox) 40 mg DAILY SC Last administered on 09/06/16 09:07 ; Admin Dose 40 MG; Start 08/22/16 at 09:00 Famotidine (Pepcid) 20 mg DAILY GTB Last administered on 09/06/16 08:46; Admin Dose 20 MG; Start 08/22/16 at 09:00 Potassium Chloride (Potassium Chloride Pwd/Soln) 40 meq BID GTB Last administered on 09/06/16 08:55; Admin Dose 40 MEQ; Start 08/23/16 at 21:00 Nystatin 5 ml 5 ml QID PO Last administered on 09/06/16 08:46; Admin Dose 5 ML ; Start 08/25/16 at 17:00 Norepinephrine/ Dextrose (Levophed/D5W) 500 ml @ 1.87 mls/hr TITRATE IV Last administered on 09/05/16 22:31; Admin Dose 16.87 MLS/HR; Start 08/28/16 at 09:00 Metronidazole 500 mg 500 mg Q8 PO Last administered on 09/06/16 05:52; Admin Dose 500 MG; Start 08/29/16 at 14:00 Colistimethate Sodium 75 mg/ Sodium Chloride 100 ml @ 200 mls/hr Q12 IVPB Last administered on 09/06/16 08:58; Admin Dose 200 MLS/HR; Start 08/31/16 at 21 :00 Linezolid (Zyvox 600mg/D5W (Pmx)) 300 ml @ 300 mls/hr Q12 IVPB Last administered on 09/06/16 09:08; Admin Dose 300 MLS/HR; Start 08/31/16 at 21:00 Alprazolam 0.25 mg 0.25 mg Q6H PRN GTB ANXIETY Last administered on 09/02/16 22 :16; Admin Dose 0.25 MG; Start 09/02/16 at 16:00 Sodium Chloride 1,000 ml @ 100 mls/hr Q10H IV Last administered on 09/06/16 06 :15; Admin Dose 100 MLS/HR; Start 09/04/16 at 12:00 Phenylephrine HCl/ Dextrose (Jabari-Syneph/D5W) 500 ml @ 75 mls/hr TITRATE IV Last administered on 09/05/16 22:29; Admin Dose 195 MLS/HR; Start 09/04/16 at 21: 00 Lorazepam (Ativan) 0.5 mg Q6H PRN IV ANXIETY Last administered on 09/06/16 01: 21; Admin Dose 0.5 MG; Start 09/05/16 at 10:30 Hydrocortisone 100 mg 100 mg Q8 IV Last administered on 09/06/16 05:52; Admin Dose 100 MG; Start 09/05/16 at 14:00 Caspofungin 50 mg/ Sodium Chloride 250 ml @ 250 mls/hr Q24H IVPB ; Start at 15:30 Phenylephrine HCl/ Dextrose (Jabari-Syneph/D5W) 500 ml @ 18.75 mls/ hr TITRATE IV Last administered on 09/06/16 01:08; Admin Dose 48.75 MLS/HR; Start 09/05/16 at 23:00 Assessment/Plan Chief Complaint/Hosp Course Assessment 1. Vent dependent respiratory failure 2. Refractory septic shock likely polymicrobial possible component of adrenal insufficiency hemodynamically improved since addition of hydrocortisone 3. Significant anemia likely of chronic disease 4. Dysphagia with G-tube 5. History of quadriplegia 6. Septic shock Plan 1. Continue mechanical ventilation 2. Continue broad-spectrum antibiotic coverage 3. Continue wound care 4. DVT and GI prophylaxis 5. Tube feeding as tolerated 6. Vasopressors as needed continue hydrocortisone Disposition Continue current level of care Palliative care consult Problems: ABI FLOR MD, [facility] Sep 06, 2016 09:46
--- NOTE | 2016-09-06 09:49 | RADRPT ---
PROCEDURE: XR Chest. CLINICAL INDICATION: Pneumonia TECHNIQUE: A single AP view of the chest was obtained. COMPARISON: Chest x-ray dated 09/03/[address] pulmonary angiogram dated 09/05/2016 FINDINGS: A tracheostomy tube is in place. There is a left chest Port-A-Cath with tip near the cavoatrial wild ction. There is dense consolidation of the right upper lobe. There are diffuse interstitial opacities with left lower lobe alveolar opacities. There are small bilateral pleural effusions. The cardiomediast inal silhouette is within normal limits for size. The osseous structures are unremarkable. IMPRESSION: 1. Dense consolidation of the right upper lobe and left lower lobe alveolar opacities, most likely reflecting multifocal pneumonia. No significant interval change. 2. Diffuse ground-glass interstitial opacities may reflect interstitial edema or pneumonitis. 3. Small bilateral pleural effusions. 4. Tubes and lines, as described above. RPTAT: HH .Shyanne Luke MD, MD Date Time Electronically viewed and signed by .Shyanne Luke MD, on 09/06/2016 09:48 .G/
--- NOTE | 2016-09-06 10:10 | PN ---
Date/Time of Note Date/Time of Note DATE: 09/06/16 TIME: 10:07 Assessment/Plan VTE Prophylaxis VTE Prophylaxis Intervention: LMWH Lines/Catheters IV Catheter Type (from [facility]): PORTACATH Urinary Cath still in place: Yes Reason Cath still needed: other (indicate) Assessment/Plan Assessment/Plan 46-year-old male sent in with fever and diaphoresis with findings of septic shock. 1) Overwhelming Sepsis/shock - sec to HCAP likely + decub ulcer infx's, now with shock - on pressor support. sp bronch/atb's. 2) Decubitus wound/ MDR organisms. Diverting colostomy & debridement may not be feasible while on vent. quality of life will not improve post therapy. 3) Quadriplegia 2/2 Ho C2 fracture; poor prognosis; palliative care eval appreciated 4) VDRF; cont vent, f/u pulm rec's 5) Chr CHF/ systolic? - monitor 6) Ho c diff - monitor 7. Malnutrition; cont peg/feeds/free water. 8. Past tobacco - monitor 9. Hypernatremia - resolved now 10. Elevated Ca : resolved 11. Hypothyroidism: on Synthroid 12. Depression: Paxil 13. Chronic Pain 14. Anemia of chronic disease + likely chronic blood loss from severe decubiti : Transfusion PRN 15. Persistent tachycardia PLAN: * CTA reviewed and negative * Tachycardia slightly improved with discontinuation of Levophed * Hyperglycemia likely 2/2 Phenylephrine in D5W, spoke with pharmacy, will change to NS. Will give one dose of Lantus as well / Continue SSI * Continue to wean pressors as much as possible * Continue abx per ID * Continue vent support and mgt per pulm * Continue tube feeds * Continue ICU care and support * Patient is not looking good, prognosis is grim * Patient is now a chemical code only Critical care time spent with pt care today = 40 min. Prophylaxis: Pepcid / Lovenox Subjective 24 Hr Interval Summary Free Text/Dictation Patient seen and examined. feels somewhat better as compared to yesterday. Exam/Review of Systems Vital Signs Vitals Vital Signs Date Time Temp Pulse Resp B/P Pulse Ox O2 Delivery O2 Flow Rate FiO2 09/06/16 09:15 126 24 97 40 09/06/16 06:45 93/60 Mechanical Ventilator 09/06/16 04:00 97.8 Intake and Output 09/05/16 09/05/16 09/06/16 15:00 23:00 07:00 Intake Total 2395.00 ml 2282.0 ml 1804.94 ml Output Total 1950 ml 1925 ml 1000 ml Balance 445.00 ml 357.0 ml 804.94 ml Results Result Diagram: 09/06/16 0400 09/06/16 0400 Results 24 hrs Laboratory Tests Test 09/05/16 12:06 09/05/16 18:06 09/06/16 00:00 09/06/16 04:00 Bedside Glucose 239 H 239 H 329 H White Blood Count 30.9 H Red Blood Count 3.69 L Hemoglobin 10.1 #L Hematocrit 34.4 L Mean Corpuscular Volume 93.2 Mean Corpuscular Hemoglobin 27.4 L Mean Corpuscular Hemoglobin Concent 29.4 L Red Cell Distribution Width 17.8 H Platelet Count 359 Mean Platelet Volume 10.3 Sodium Level 138 Potassium Level 5.1 Chloride Level 103 Carbon Dioxide Level 22 Anion Gap 18 #H Blood Urea Nitrogen 18 Creatinine 0.35 L Glucose Level 273 H Calcium Level 7.5 L Test 09/06/16 05:30 09/06/16 05:49 Lactic Acid Level 4.5 *H Bedside Glucose 238 H Medications Medications Current Medications Ondansetron HCl (Zofran Inj) 4 mg Q6H PRN IV NAUSEA AND/OR VOMITING Last administered on 08/15/16 05:11; Admin Dose 4 MG; Start 07/31/16 at 15:00 Morphine Sulfate (morphine) 2 mg Q4H PRN IV SEVERE PAIN LEVEL 7-10 Last administered on 09/03/16 11:32; Admin Dose 2 MG; Start 07/31/16 at 15:00 Magnesium Hydroxide (Milk Of Mag) 30 ml DAILY PRN PO CONSTIPATION Last administered on 09/03/16 15:46; Admin Dose 30 ML; Start 07/31/16 at 15:00 Sodium Biphosphate/ Sodium Phosphate (Fleet Enema) 133 ml DAILY PRN [place] CONSTIPATION; Start 07/31/16 at 15:00 Hydralazine HCl (Apresoline) 10 mg Q6H PRN IV ELEVATED BLOOD PRESSURE; Start at 15:00 Nitroglycerin (Nitroglycerin (Sl Tab) 0.4 Mg) 1 tab Q5M PRN SL ANGINA; Start at 15:00 Miscellaneous Information 1 ea NOTE XX ; Start 07/31/16 at 16:30 Glucose (Glutose) 15 gm Q15M PRN PO DECREASED GLUCOSE; Start 07/31/16 at 16:30 Glucose (Glutose) 22.5 gm Q15M PRN PO DECREASED GLUCOSE; Start 07/31/16 at 16: 30 Dextrose (D50w Syringe) 25 ml Q15M PRN IV DECREASED GLUCOSE; Start 07/31/16 at 16:30 Dextrose (D50w Syringe) 50 ml Q15M PRN IV DECREASED GLUCOSE; Start 07/31/16 at 16:30 Glucagon (Glucagen) 1 mg Q15M PRN IM DECREASED GLUCOSE; Start 07/31/16 at 16:30 Glucose (Glutose) 15 gm Q15M PRN BUCCAL DECREASED GLUCOSE; Start 07/31/16 at 16 :30 Sodium Hypochlorite (Dakin'S (1/4 Strength)) 1 applic BID IRR Last administered on 09/06/16 09:08; Admin Dose 1 APPLIC; Start 08/01/16 at 21:00 Zinc Sulfate (Zinc Sulfate) 220 mg DAILY GTB Last administered on 09/06/16 08: 47; Admin Dose 220 MG; Start 08/03/16 at 11:30 Multivitamins Therapeutic (Theragran) 1 tab DAILY PO Last administered on 08:46; Admin Dose 1 TAB; Start 08/03/16 at 11:30 Ascorbic Acid (Vitamin C) 500 mg BID GTB Last administered on 09/06/16 08:47; Admin Dose 500 MG; Start 08/03/16 at 11:30 Sodium Hypochlorite (Dakin'S (Dilute 1/40%)) 1 applic BID IRR Last administered on 09/06/16 09:10; Admin Dose 1 APPLIC; Start 08/04/16 at 12:00 Levothyroxine Sodium (Synthroid) 25 mcg DAILY@06 PO Last administered on 08:46; Admin Dose 25 MCG; Start 08/11/16 at 06:00 Paroxetine HCl (Paxil) 10 mg DAILY PO Last administered on 09/06/16 09:15; Admin Dose 10 MG; Start 08/11/16 at 21:00 Insulin Aspart (Novolog Insulin Pen) NOVOLOG *MODERATE* ALGORI... Q6 SC Last administered on 09/06/16 05:50; Admin Dose 6 UNIT; Start 08/13/16 at 00:00 Lactobacillus Acidoph/Bulgaricus (Floranex) 1 tab TID GTB Last administered on 09/06/16 08:47; Admin Dose 1 TAB; Start 08/15/16 at 21:30 Metformin HCl (Glucophage) 500 mg Q12 GTB Last administered on 08/27/16 08:54 ; Admin Dose 500 MG; Start 08/15/16 at 21:30; Status Future Hold Acetaminophen (Tylenol Tab) 650 mg Q6H PRN GTB PAIN AND OR ELEVATED TEMP Last administered on 09/04/16 18:42; Admin Dose 650 MG; Start 08/15/16 at 21:30 Magnesium Oxide (Mag-Ox 400) 400 mg DAILY GTB Last administered on 09/06/16 08: 47; Admin Dose 400 MG; Start 08/20/16 at 09:00 Enoxaparin Sodium (Lovenox) 40 mg DAILY SC Last administered on 09/06/16 09:07 ; Admin Dose 40 MG; Start 08/22/16 at 09:00 Famotidine (Pepcid) 20 mg DAILY GTB Last administered on 09/06/16 08:46; Admin Dose 20 MG; Start 08/22/16 at 09:00 Potassium Chloride (Potassium Chloride Pwd/Soln) 40 meq BID GTB Last administered on 09/06/16 08:55; Admin Dose 40 MEQ; Start 08/23/16 at 21:00 Nystatin 5 ml 5 ml QID PO Last administered on 09/06/16 08:46; Admin Dose 5 ML ; Start 08/25/16 at 17:00 Norepinephrine/ Dextrose (Levophed/D5W) 500 ml @ 1.87 mls/hr TITRATE IV Last administered on 09/05/16 22:31; Admin Dose 16.87 MLS/HR; Start 08/28/16 at 09:00 Metronidazole 500 mg 500 mg Q8 PO Last administered on 09/06/16 05:52; Admin Dose 500 MG; Start 08/29/16 at 14:00 Colistimethate Sodium 75 mg/ Sodium Chloride 100 ml @ 200 mls/hr Q12 IVPB Last administered on 09/06/16 08:58; Admin Dose 200 MLS/HR; Start 08/31/16 at 21 :00 Linezolid (Zyvox 600mg/D5W (Pmx)) 300 ml @ 300 mls/hr Q12 IVPB Last administered on 09/06/16 09:08; Admin Dose 300 MLS/HR; Start 08/31/16 at 21:00 Alprazolam 0.25 mg 0.25 mg Q6H PRN GTB ANXIETY Last administered on 09/02/16 22 :16; Admin Dose 0.25 MG; Start 09/02/16 at 16:00 Sodium Chloride 1,000 ml @ 100 mls/hr Q10H IV Last administered on 09/06/16 06 :15; Admin Dose 100 MLS/HR; Start 09/04/16 at 12:00 Phenylephrine HCl/ Dextrose (Jabari-Syneph/D5W) 500 ml @ 75 mls/hr TITRATE IV Last administered on 09/05/16 22:29; Admin Dose 195 MLS/HR; Start 09/04/16 at 21: 00 Lorazepam (Ativan) 0.5 mg Q6H PRN IV ANXIETY Last administered on 09/06/16 01: 21; Admin Dose 0.5 MG; Start 09/05/16 at 10:30 Hydrocortisone 100 mg 100 mg Q8 IV Last administered on 09/06/16 05:52; Admin Dose 100 MG; Start 09/05/16 at 14:00 Caspofungin 50 mg/ Sodium Chloride 250 ml @ 250 mls/hr Q24H IVPB ; Start at 15:30 Phenylephrine HCl/ Dextrose (Jabari-Syneph/D5W) 500 ml @ 18.75 mls/ hr TITRATE IV Last administered on 09/06/16 01:08; Admin Dose 48.75 MLS/HR; Start 09/05/16 at 23:00 Procedures Procedures PROCEDURE: CTA Chest. CLINICAL INDICATION: Sepsis. Shortness of breath. TECHNIQUE: The study was performed utilizing a multidetector CT scanner. Direct spiral 1 mm axial sections were obtained from the thoracic inlet to the upper abdomen with the use of 100 cc of Omnipaque 350 nonionic intravenous contrast material and reformatted at 3 mm. Coronal reformations were obtained. The images were reviewed on a PACS workstation. CT D I 17 mCi. Dose 763 mCi per centimeter COMPARISON: No prior studies are available for comparison. FINDINGS: There is no central or peripheral pulmonary embolism. Thoracic aorta is normal with no dissection or aneurysm. No hilar or mediastinal adenopathy or masses present. There is a tracheostomy and a left IJ Port-A-Cath. There is dense alveolar consolidation throughout the right upper lobe. There is dense consolidation with partial collapse of the left lower lobe. Atelectasis is present deep in the right costophrenic recess. Ill-defined regions of consolidation are seen in each of the other lobes and segments. Fine nodular densities are seen throughout the lungs diffusely. No discrete masses identified. There are small bilateral pleural effusions. No pericardial effusion is detected. No axillary, supraclavicular or internal mammary chain adenopathy is seen. No upper abdominal or adrenal mass is seen. There are small gallstones. There is trace perihepatic ascites. Spine is normal. No lytic or blastic lesions are visualized. IMPRESSION: No CT evidence for pulmonary embolus. No aortic dissection or aneurysm. Dense alveolar consolidation right upper lobe and left lower lobe with ill- defined nodular infiltrates in each of the other lobes compatible with multi focal pneumonia. Fine nodular densities diffusely in both lungs. Metastatic disease cannot be ruled out. Clinical correlation suggested. Small bilateral pleural effusions. Cholelithiasis. Trace ascites. .Spenser Bhagat MD, Date Time Electronically viewed and signed by .Spenser Bhagat MD, MD on 09/05/2016 15: 17 .A/ CC: ALDO BRADEN ALDO BRADEN Sep 06, 2016 10:10
[2016-09-06 13:18] LABS: LYMPHOCYTES # 0.3 10^3/ul (0.8-2.9); MONOCYTE # 1.2 10^3/ul (0.3-0.9); NEUTROPHIL # 27.2 10^3/ul (1.6-7.5)
[2016-09-06] MEDS: morphine 2 MG INJ IV PRN (13:24)
--- NOTE | 2016-09-06 13:41 | PN ---
DATE: 09/06/2016 SUBJECTIVE: No acute changes. The patient is awake, remains tachycardic on Levophed drip. He is a febrile, in no distress. LABORATORIES: WBC 30.9, H and H 10.1 and 34.4, platelets 359, no shift. BUN 18, creatinine 0.35. MICROBIOLOGY: Blood cultures since transferring to ICU remain negative. INDWELLINGS: Trach, PEG, Oliveira, left chest Port-A-Cath. ANTIMICROBIALS: 1. Cancidas. 2. Colistin. 3. Zyvox. 4. Tobramycin 5. Flagyl. PHYSICAL EXAMINATION: GENERAL: This is a chronically ill-appearing, middle-aged man who is awake, in no distress. HEENT: Head atraumatic, normocephalic. Sclerae anicteric. Buccal mucosa dry. NECK: Supple. Tracheostomy present. CHEST: Rise symmetrical. Breath sounds with bilateral rales. HEART: S1, S2. ABDOMEN: Soft, bowel tones present. EXTREMITIES: Bilateral edema. ASSESSMENT: 1. Severe sepsis with shock. 2. Healthcare-associated pneumonia with repeat CT of the chest revealed multifocal pneumonia. 3. Multiple infected chronic wounds. 4. Chronic respiratory failure. 5. Anemia. 6. Sinus tachycardia. 7. Quadriplegia status post cervical spine injury. 8. Leukocytosis, patient is on Solu-Cortef. PLAN: The patient remains hemodynamically unstable, covered with broad spectrum antibiotics and on antifungal coverage. He is on Solu-Cortef 100 mg q. 8 hours. He is being followed by multiple cons ultants. He has a left chest Port-A-Cath that may need to be discontinued given persistent sepsis. The patient is CHEMICAL CODE. Dictated By: LESLIE FERRARO MOTOR VEHICLE INSPECTOR for ROGE LESTER MD NI/NTS Conf#: [id number] DID#: [id number]
[2016-09-06] MEDS: INSULIN GLARGINE [LANtus] 3 ML PEN SC SCH (13:42)
[2016-09-06] MEDS: CASPOFUNGIN 50 MG in SOD CHLORIDE 0.9% 250 ML IVPB SCH (15:30)
--- NOTE | 2016-09-06 17:39 | CONS ---
Date/Time of Note Date/Time of Note DATE: 09/06/16 TIME: 17:37 Assessment/Plan Assessment/Plan Additional Assessment/Plan Septic shock Acute decompensated systolic congestive heart failure Sinus tachycardia C2 fracture and quadriplegic Respiratory failure Cardiomyopathy with ejection fraction 50% via echo on previous admission Decubiti Hypotension -Titrate IV pressor to maintain SBP greater than 90 and her map above 60, continue to hold any antihypertensives. Sinus tachycardia is manifestation of patient's severe sepsis. Antibiotics as per infectious disease. Consultation Date/Type/Reason Admit Date/Time Jul 31, 2016 at 14:20 Type of Consultation: cv 24 HR Interval Summary Free Text/Dictation Feeling better, denies shortness of breath, he is upset his television is missing Exam/Review of Systems Vital Signs Vitals Vital Signs Date Time Temp Pulse Resp B/P Pulse Ox O2 Delivery O2 Flow Rate FiO2 09/06/16 16:00 128 09/06/16 15:15 24 112/87 09/06/16 14:30 97 09/06/16 13:30 40 09/06/16 12:00 98.0 09/06/16 09:45 Mechanical Ventilator Intake and Output 09/05/16 09/05/16 09/06/16 15:00 23:00 07:00 Intake Total 2395.00 ml 2282.0 ml 1844.94 ml Output Total 1950 ml 1925 ml 1000 ml Balance 445.00 ml 357.0 ml 844.94 ml Exam Appears tired Constitutional: alert, frail, oriented Neck: other (Tracheostomy) Respiratory: crackles/rales, other (Coarse breath sounds bilaterally) Cardiovascular: other (S1-S2 heard), regular rate and rhythm (Tachycardic) Gastrointestinal: bowel sounds, non-tender, soft Extremities: edema Results Result Diagram: 09/06/16 0400 09/06/16 0400 Results 24 hrs Laboratory Tests Test 09/05/16 18:06 09/06/16 00:00 09/06/16 04:00 09/06/16 05:30 Bedside Glucose 239 H 329 H White Blood Count 30.9 H Red Blood Count 3.69 L Hemoglobin 10.1 #L Hematocrit 34.4 L Mean Corpuscular Volume 93.2 Mean Corpuscular Hemoglobin 27.4 L Mean Corpuscular Hemoglobin Concent 29.4 L Red Cell Distribution Width 17.8 H Platelet Count 359 Mean Platelet Volume 10.3 Neutrophils % 88.0 H Band Neutrophils % 7.0 H Lymphocytes % 1.0 L Monocytes % 4.0 Neutrophils # 27.2 H Lymphocytes # 0.3 L Monocytes # 1.2 H Sodium Level 138 Potassium Level 5.1 Chloride Level 103 Carbon Dioxide Level 22 Anion Gap 18 #H Blood Urea Nitrogen 18 Creatinine 0.35 L Glucose Level 273 H Calcium Level 7.5 L Lactic Acid Level 4.5 *H Test 09/06/16 05:49 09/06/16 12:42 Bedside Glucose 238 H 172 Medications Medications Current Medications Ondansetron HCl (Zofran Inj) 4 mg Q6H PRN IV NAUSEA AND/OR VOMITING Last administered on 08/15/16 05:11; Admin Dose 4 MG; Start 07/31/16 at 15:00 Morphine Sulfate (morphine) 2 mg Q4H PRN IV SEVERE PAIN LEVEL 7-10 Last administered on 09/06/16 13:24; Admin Dose 2 MG; Start 07/31/16 at 15:00 Magnesium Hydroxide (Milk Of Mag) 30 ml DAILY PRN PO CONSTIPATION Last administered on 09/03/16 15:46; Admin Dose 30 ML; Start 07/31/16 at 15:00 Sodium Biphosphate/ Sodium Phosphate (Fleet Enema) 133 ml DAILY PRN [place] CONSTIPATION; Start 07/31/16 at 15:00 Hydralazine HCl (Apresoline) 10 mg Q6H PRN IV ELEVATED BLOOD PRESSURE; Start at 15:00 Nitroglycerin (Nitroglycerin (Sl Tab) 0.4 Mg) 1 tab Q5M PRN SL ANGINA; Start at 15:00 Miscellaneous Information 1 ea NOTE XX ; Start 07/31/16 at 16:30 Glucose (Glutose) 15 gm Q15M PRN PO DECREASED GLUCOSE; Start 07/31/16 at 16:30 Glucose (Glutose) 22.5 gm Q15M PRN PO DECREASED GLUCOSE; Start 07/31/16 at 16: 30 Dextrose (D50w Syringe) 25 ml Q15M PRN IV DECREASED GLUCOSE; Start 07/31/16 at 16:30 Dextrose (D50w Syringe) 50 ml Q15M PRN IV DECREASED GLUCOSE; Start 07/31/16 at 16:30 Glucagon (Glucagen) 1 mg Q15M PRN IM DECREASED GLUCOSE; Start 07/31/16 at 16:30 Glucose (Glutose) 15 gm Q15M PRN BUCCAL DECREASED GLUCOSE; Start 07/31/16 at 16 :30 Sodium Hypochlorite (Dakin'S (1/4 Strength)) 1 applic BID IRR Last administered on 09/06/16 09:08; Admin Dose 1 APPLIC; Start 08/01/16 at 21:00 Zinc Sulfate (Zinc Sulfate) 220 mg DAILY GTB Last administered on 09/06/16 08: 47; Admin Dose 220 MG; Start 08/03/16 at 11:30 Multivitamins Therapeutic (Theragran) 1 tab DAILY PO Last administered on 08:46; Admin Dose 1 TAB; Start 08/03/16 at 11:30 Ascorbic Acid (Vitamin C) 500 mg BID GTB Last administered on 09/06/16 08:47; Admin Dose 500 MG; Start 08/03/16 at 11:30 Sodium Hypochlorite (Dakin'S (Dilute 1/40%)) 1 applic BID IRR Last administered on 09/06/16 09:10; Admin Dose 1 APPLIC; Start 08/04/16 at 12:00 Levothyroxine Sodium (Synthroid) 25 mcg DAILY@06 PO Last administered on 08:46; Admin Dose 25 MCG; Start 08/11/16 at 06:00 Paroxetine HCl (Paxil) 10 mg DAILY PO Last administered on 09/06/16 09:15; Admin Dose 10 MG; Start 08/11/16 at 21:00 Insulin Aspart (Novolog Insulin Pen) NOVOLOG *MODERATE* ALGORI... Q6 SC Last administered on 09/06/16 13:26; Admin Dose 2 UNIT; Start 08/13/16 at 00:00 Lactobacillus Acidoph/Bulgaricus (Floranex) 1 tab TID GTB Last administered on 09/06/16 13:24; Admin Dose 1 TAB; Start 08/15/16 at 21:30 Metformin HCl (Glucophage) 500 mg Q12 GTB Last administered on 08/27/16 08:54 ; Admin Dose 500 MG; Start 08/15/16 at 21:30; Status Future Hold Acetaminophen (Tylenol Tab) 650 mg Q6H PRN GTB PAIN AND OR ELEVATED TEMP Last administered on 09/04/16 18:42; Admin Dose 650 MG; Start 08/15/16 at 21:30 Magnesium Oxide (Mag-Ox 400) 400 mg DAILY GTB Last administered on 09/06/16 08: 47; Admin Dose 400 MG; Start 08/20/16 at 09:00 Enoxaparin Sodium (Lovenox) 40 mg DAILY SC Last administered on 09/06/16 09:07 ; Admin Dose 40 MG; Start 08/22/16 at 09:00 Famotidine (Pepcid) 20 mg DAILY GTB Last administered on 09/06/16 08:46; Admin Dose 20 MG; Start 08/22/16 at 09:00 Potassium Chloride (Potassium Chloride Pwd/Soln) 40 meq BID GTB Last administered on 09/06/16 08:55; Admin Dose 40 MEQ; Start 08/23/16 at 21:00 Nystatin 5 ml 5 ml QID PO Last administered on 09/06/16 17:25; Admin Dose 5 ML ; Start 08/25/16 at 17:00 Norepinephrine/ Dextrose (Levophed/D5W) 500 ml @ 1.87 mls/hr TITRATE IV Last administered on 09/05/16 22:31; Admin Dose 16.87 MLS/HR; Start 08/28/16 at 09:00 Metronidazole 500 mg 500 mg Q8 PO Last administered on 09/06/16 13:24; Admin Dose 500 MG; Start 08/29/16 at 14:00 Colistimethate Sodium 75 mg/ Sodium Chloride 100 ml @ 200 mls/hr Q12 IVPB Last administered on 09/06/16 16:30; Admin Dose 200 MLS/HR; Start 08/31/16 at 21 :00 Linezolid (Zyvox 600mg/D5W (Pmx)) 300 ml @ 300 mls/hr Q12 IVPB Last administered on 09/06/16 09:08; Admin Dose 300 MLS/HR; Start 08/31/16 at 21:00 Alprazolam 0.25 mg 0.25 mg Q6H PRN GTB ANXIETY Last administered on 09/02/16 22 :16; Admin Dose 0.25 MG; Start 09/02/16 at 16:00 Sodium Chloride (NS) 1,000 ml @ 100 mls/hr Q10H IV Last administered on 06:15; Admin Dose 100 MLS/HR; Start 09/04/16 at 12:00 Lorazepam (Ativan) 0.5 mg Q6H PRN IV ANXIETY Last administered on 09/06/16 01: 21; Admin Dose 0.5 MG; Start 09/05/16 at 10:30 Hydrocortisone 100 mg 100 mg Q8 IV Last administered on 09/06/16 13:24; Admin Dose 100 MG; Start 09/05/16 at 14:00 Caspofungin/ Sodium Chloride (Cancidas/NS) 250 ml @ 250 mls/hr Q24H IVPB Last administered on 09/06/16 15:30; Admin Dose 250 MLS/HR; Start 09/06/16 at 15:30 Insulin Glargine 15 unit 15 unit DAILY SC Last administered on 09/06/16 13:42; Admin Dose 15 UNIT; Start 09/06/16 at 10:30 Phenylephrine HCl/ Sodium Chloride (Jabari-Syneph/NS) 500 ml @ 18.75 mls/ hr TITRATE IV ; Start 09/06/16 at 11:00 Kb Barrett DO Sep 06, 2016 17:39
[2016-09-06] MEDS: PHENYLephrine 160 MG in SOD CHLORIDE 0.9% 484 ML IV SCH (19:15)
[2016-09-07] VITALS (107 sets, daily range): BP systolic 58–121; BP diastolic 30–103; PULSE 71–130; RESP 6–28
[2016-09-07 05:28] LABS: ADD SCAN DIFF NO
[2016-09-07 05:34] LABS: ABNORMAL IP MESSAGE 1; HEMATOCRIT 29.6 % (42.0-52.0); HEMOGLOBIN 8.8 g/dl (14.0-18.0); MEAN CORPUSCULAR HEMOGLOBIN 27.5 pg (29.0-33.0); MEAN CORPUSCULAR HGB CONC 29.7 g/dl (32.0-37.0); MEAN CORPUSCULAR VOLUME 92.5 fl (82.0-101.0); MEAN PLATELET VOLUME 10.2 fl (7.4-10.4); PLATELET COUNT 277 10^3/UL (140-415); RED CELL DISTRIBUTION WIDTH 17.8 % (11.5-14.5); WHITE BLOOD COUNT 27.6 10^3/ul (4.8-10.8)
[2016-09-07] MEDS: LEVOTHYROXINE 25 MCG TAB PO SCH (05:41)
[2016-09-07] MEDS: metroNIDAZOLE 500 MG TAB PO SCH ×3 (05:42→21:37)
[2016-09-07 05:44] LABS: CALCIUM 7.2 mg/dl (8.4-10.2); CREATININE 0.41 mg/dl (0.61-1.24); MAGNESIUM 1.2 mg/dl (1.7-2.5); PHOSPHORUS 3.1 mg/dl (2.5-4.9); POTASSIUM 4.3 mmol/L (3.5-5.1)
[2016-09-07] MEDS: INSULIN ASPART [NOVOLOG] 3 ML PEN SC SCH ×3 (05:45→17:34)
[2016-09-07] MEDS: HYDROCORTISONE 100 MG INJ IV SCH ×3 (05:58→21:37)
[2016-09-07] MEDS: ALBUTEROL HFA 8 GM INHALER INH SCH ×2 (08:27→15:40)
[2016-09-07] MEDS: TOBRAMYCIN/0.25NS 300 MG/5 ML INHAL NEB SCH ×2 (08:27→20:38)
[2016-09-07] MEDS: SOD CHLORIDE 0.9% 1,000 ML IV SCH ×2 (08:44→20:00)
[2016-09-07] MEDS: SODIUM HYPOCHLORITE 1/40% 1L IRRIG IRR SCH ×2 (09:00→20:55)
[2016-09-07] MEDS: SODIUM HYPOCHLORITE 0.125% 473 ML BTL IRR SCH ×2 (09:00→20:31)
--- NOTE | 2016-09-07 09:29 | PN ---
Date/Time of Note Date/Time of Note DATE: 09/07/16 TIME: 09:24 Assessment/Plan VTE Prophylaxis VTE Prophylaxis Intervention: LMWH Lines/Catheters IV C[facility]ter Type [facility]from [facility] PORTACATH Urinary Cath still in place: Yes Reason Cath still needed: pres ulcer contaminated by urine, other (indicate) Assessment/Plan Assessment/Plan 46-year-old male sent in with fever and diaphoresis with findings of septic shock. 1) Overwhelming Sepsis/shock - sec to HCAP likely + decub ulcer infx's, now with shock - on pressor support. sp bronch/atb's. 2) Decubitus wound/ MDR organisms. Diverting colostomy & debridement may not be feasible while on vent. quality of life will not improve post therapy. 3) Quadriplegia 2/2 Ho C2 fracture; poor prognosis; palliative care eval appreciated 4) VDRF; cont vent, f/u pulm rec's 5) Chr CHF/ systolic? - monitor 6) Ho c diff - monitor 7. Malnutrition; cont peg/feeds/free water. 8. Past tobacco - monitor 9. Hypernatremia - resolved now 10. Elevated Ca : resolved 11. Hypothyroidism: on Synthroid 12. Depression: Paxil 13. Chronic Pain 14. Anemia of chronic disease + likely chronic blood loss from severe decubiti : Transfusion PRN 15. Persistent tachycardia 16. Diet controlled DM 2 with Hyperglycemia likely 2/2 Phenylephrine in D5W + Steroids: improved control on lantus PLAN: * CTA reviewed and negative * Tachycardia slightly improved with discontinuation of Levophed, phenylephrine weaned down to 20mcg * Continue to wean pressors as much as possible * Continue abx per ID * Continue vent support and mgt per pulm * Continue tube feeds / closely monitor blood glucose, we might need to reduce lantus once off pressors and steroids. 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 Prophylaxis: Pepcid / Lovenox Subjective 24 Hr Interval Summary Free Text/Dictation remains on low dose pressors still asking for his family and for icechips I called his brother, he will try to visit today. Exam/Review of Systems Vital Signs Vitals Vital Signs Date Time Temp Pulse Resp B/P Pulse Ox O2 Delivery O2 Flow Rate FiO2 4/7/17 06:45 96 24 94/62 100 Mechanical Ventilator 09/07/16 05:38 40 09/07/16 04:00 97.1 Intake and Output 09/06/16 09/06/16 09/07/16 15:00 23:00 07:00 Intake Total 1520 ml 1790.95 ml 1346.25 ml Output Total 310 ml 885 ml 475 ml Balance 1210 ml 905.95 ml 871.25 ml Exam Constitutional: alert, oriented (?), was happy to see me Psych: less anxiety Head: normocephalic Eyes: PERRL ENMT: No mucosa pink and moist Neck: other (trach to vent) Respiratory: crackles/rales (coarse diffuse crackles), diminished breath sounds Cardiovascular: regular rate and rhythm Gastrointestinal: bowel sounds, distended (mildly), firm (mildly) Extremities: edema (in extremities only, slight sheen to both legs) Neurological: lethargic, other (C2 quadriplegic) Results Result Diagram: 09/07/16 04309/07/16 0430 Results 24 hrs Laboratory Tests Test 09/06/16 12:42 09/06/16 18:45 09/06/16 23:43 09/07/16 04:30 Bedside Glucose 172 181 184 White Blood Count 27.6 H Red Blood Count 3.20 L Hemoglobin 8.8 L Hematocrit 29.6 L Mean Corpuscular Volume 92.5 Mean Corpuscular Hemoglobin 27.5 L Mean Corpuscular Hemoglobin Concent 29.7 L Red Cell Distribution Width 17.8 H Platelet Count 277 # Mean Platelet Volume 10.2 Sodium Level 138 Potassium Level 4.3 Chloride Level 106 Carbon Dioxide Level 26 Anion Gap 10 # Blood Urea Nitrogen 21 H Creatinine 0.41 L Glucose Level 210 Calcium Level 7.2 L Phosphorus Level 3.1 Magnesium Level 1.2 L Test 09/07/16 05:44 Bedside Glucose 195 Medications Medications Current Medications Ondansetron HCl (Zofran Inj) 4 mg Q6H PRN IV NAUSEA AND/OR VOMITING Last administered on 08/15/16 05:11; Admin Dose 4 MG; Start 07/31/16 at 15:00 Morphine Sulfate (morphine) 2 mg Q4H PRN IV SEVERE PAIN LEVEL 7-10 Last administered on 09/06/16 13:24; Admin Dose 2 MG; Start 07/31/16 at 15:00 Magnesium Hydroxide (Milk Of Mag) 30 ml DAILY PRN PO CONSTIPATION Last administered on 09/03/16 15:46; Admin Dose 30 ML; Start 07/31/16 at 15:00 Sodium Biphosphate/ Sodium Phosphate (Fleet Enema) 133 ml DAILY PRN [place] CONSTIPATION; Start 07/31/16 at 15:00 Hydralazine HCl (Apresoline) 10 mg Q6H PRN IV ELEVATED BLOOD PRESSURE; Start at 15:00 Nitroglycerin (Nitroglycerin (Sl Tab) 0.4 Mg) 1 tab Q5M PRN SL ANGINA; Start at 15:00 Miscellaneous Information 1 ea NOTE XX ; Start 07/31/16 at 16:30 Glucose (Glutose) 15 gm Q15M PRN PO DECREASED GLUCOSE; Start 07/31/16 at 16:30 Glucose (Glutose) 22.5 gm Q15M PRN PO DECREASED GLUCOSE; Start 07/31/16 at 16: 30 Dextrose (D50w Syringe) 25 ml Q15M PRN IV DECREASED GLUCOSE; Start 07/31/16 at 16:30 Dextrose (D50w Syringe) 50 ml Q15M PRN IV DECREASED GLUCOSE; Start 07/31/16 at 16:30 Glucagon (Glucagen) 1 mg Q15M PRN IM DECREASED GLUCOSE; Start 07/31/16 at 16:30 Glucose (Glutose) 15 gm Q15M PRN BUCCAL DECREASED GLUCOSE; Start 07/31/16 at 16 :30 Sodium Hypochlorite (Dakin'S (1/4 Strength)) 1 applic BID IRR Last administered on 09/06/16 20:50; Admin Dose 1 APPLIC; Start 08/01/16 at 21:00 Zinc Sulfate (Zinc Sulfate) 220 mg DAILY GTB Last administered on 09/06/16 08: 47; Admin Dose 220 MG; Start 08/03/16 at 11:30 Multivitamins Therapeutic (Theragran) 1 tab DAILY PO Last administered on 08:46; Admin Dose 1 TAB; Start 08/03/16 at 11:30 Ascorbic Acid (Vitamin C) 500 mg BID GTB Last administered on 09/06/16 20:49; Admin Dose 500 MG; Start 08/03/16 at 11:30 Sodium Hypochlorite (Dakin'S (Dilute 1/40%)) 1 applic BID IRR Last administered on 09/06/16 20:50; Admin Dose 1 APPLIC; Start 08/04/16 at 12:00 Levothyroxine Sodium (Synthroid) 25 mcg DAILY@06 PO Last administered on 05:41; Admin Dose 25 MCG; Start 08/11/16 at 06:00 Paroxetine HCl (Paxil) 10 mg DAILY PO Last administered on 09/06/16 09:15; Admin Dose 10 MG; Start 08/11/16 at 21:00 Insulin Aspart (Novolog Insulin Pen) NOVOLOG *MODERATE* ALGORI... Q6 SC Last administered on 09/07/16 05:45; Admin Dose 4 UNIT; Start 08/13/16 at 00:00 Lactobacillus Acidoph/Bulgaricus (Floranex) 1 tab TID GTB Last administered on 09/06/16 20:49; Admin Dose 1 TAB; Start 08/15/16 at 21:30 Metformin HCl (Glucophage) 500 mg Q12 GTB Last administered on 08/27/16 08:54 ; Admin Dose 500 MG; Start 08/15/16 at 21:30; Status Future Hold Acetaminophen (Tylenol Tab) 650 mg Q6H PRN GTB PAIN AND OR ELEVATED TEMP Last administered on 09/04/16 18:42; Admin Dose 650 MG; Start 08/15/16 at 21:30 Magnesium Oxide (Mag-Ox 400) 400 mg DAILY GTB Last administered on 09/06/16 08: 47; Admin Dose 400 MG; Start 08/20/16 at 09:00 Enoxaparin Sodium (Lovenox) 40 mg DAILY SC Last administered on 09/06/16 09:07 ; Admin Dose 40 MG; Start 08/22/16 at 09:00 Famotidine (Pepcid) 20 mg DAILY GTB Last administered on 09/06/16 08:46; Admin Dose 20 MG; Start 08/22/16 at 09:00 Potassium Chloride (Potassium Chloride Pwd/Soln) 40 meq BID GTB Last administered on 09/06/16 20:50; Admin Dose 40 MEQ; Start 08/23/16 at 21:00 Nystatin 5 ml 5 ml QID PO Last administered on 09/06/16 20:50; Admin Dose 5 ML ; Start 08/25/16 at 17:00 Norepinephrine/ Dextrose (Levophed/D5W) 500 ml @ 1.87 mls/hr TITRATE IV Last administered on 09/05/16 22:31; Admin Dose 16.87 MLS/HR; Start 08/28/16 at 09:00 Metronidazole 500 mg 500 mg Q8 PO Last administered on 09/07/16 05:42; Admin Dose 500 MG; Start 08/29/16 at 14:00 Colistimethate Sodium 75 mg/ Sodium Chloride 100 ml @ 200 mls/hr Q12 IVPB Last administered on 09/06/16 16:30; Admin Dose 200 MLS/HR; Start 08/31/16 at 21 :00 Linezolid (Zyvox 600mg/D5W (Pmx)) 300 ml @ 300 mls/hr Q12 IVPB Last administered on 09/06/16 20:47; Admin Dose 300 MLS/HR; Start 08/31/16 at 21:00 Alprazolam 0.25 mg 0.25 mg Q6H PRN GTB ANXIETY Last administered on 09/02/16 22 :16; Admin Dose 0.25 MG; Start 09/02/16 at 16:00 Sodium Chloride (NS) 1,000 ml @ 100 mls/hr Q10H IV Last administered on 08:44; Admin Dose 100 MLS/HR; Start 09/04/16 at 12:00 Lorazepam (Ativan) 0.5 mg Q6H PRN IV ANXIETY Last administered on 09/06/16 20: 12; Admin Dose 0.5 MG; Start 09/05/16 at 10:30 Hydrocortisone 100 mg 100 mg Q8 IV Last administered on 09/07/16 05:58; Admin Dose 100 MG; Start 09/05/16 at 14:00 Caspofungin/ Sodium Chloride (Cancidas/NS) 250 ml @ 250 mls/hr Q24H IVPB Last administered on 09/06/16 15:30; Admin Dose 250 MLS/HR; Start 09/06/16 at 15:30 Insulin Glargine 15 unit 15 unit DAILY SC Last administered on 09/06/16 13:42; Admin Dose 15 UNIT; Start 09/06/16 at 10:30 Phenylephrine HCl 160 mg/Sodium Chloride 500 ml @ 18.75 mls/ hr TITRATE IV Last administered on 09/06/16 19:15; Admin Dose 18.75 MLS/HR; Start 09/06/16 at 11:00 Magnesium Sulfate/ Sodium Chloride (Magnesium Sulfate/NS) 106 ml @ 35.333 mls/ hr ONCE ONCE IVPB ; Start 09/07/16 at 10:00; Stop 09/07/16 at 12:59 ALDO BRADEN Sep 07, 2016 09:29
--- NOTE | 2016-09-07 09:31 | RADRPT ---
PROCEDURE: XR Chest. CLINICAL INDICATION: Shortness of breath. TECHNIQUE: Single frontal view. COMPARISON: 09/06/2016. FINDINGS: The tracheostomy tube and implanted port central venous catheter entering via the left internal jugu lar vein remain in satisfactory position. Consolidation in the right upper lobe and patchy consolid ation bilaterally in the mid and lower lung zones is unchanged consistent with multifocal pneumonia. The heart is enlarged. There is no pneumothorax. There are small bilateral pleural effusions. IMPRESSION: 1. No change from 09/06/2016. RPTAT: QQ .Bryce Lee MD, MD Date Time Electronically viewed and signed by .Bryce Lee MD, MD on 09/07/2016 09:31 .R/
[2016-09-07] MEDS ORDERED: MAGNESIUM SULFATE 3 GM in SOD CHLORIDE 0.9% 100 ML IVPB ONE (10:00)
--- NOTE | 2016-09-07 10:18 | CONS ---
Date/Time of Note Date/Time of Note DATE: 09/07/16 TIME: 10:17 Consult Date/Type/Reason Admit Date/Time Jul 31, 2016 at 14:20 Initial Consult Date 08/02/16 Type of Consultation: pulmonary intensive care Subjective More alert this morning complaining of mild shortness of breath requesting ice chips Objective Vital Signs Date Time Temp Pulse Resp B/P Pulse Ox O2 Delivery O2 Flow Rate FiO2 09/07/16 09:30 92 24 89/68 09/07/16 09:00 100 Mechanical Ventilator 09/07/16 08:00 96.5 09/07/16 05:38 40 Intake and Output 09/06/16 09/06/16 09/07/16 14:59 22:59 06:59 Intake Total 1520 ml 1673.45 ml 1503.75 ml Output Total 270 ml 700 ml 700 ml Balance 1250 ml 973.45 ml 803.75 ml Exam PHYSICAL EXAMINATION GENERAL: Chronically ill-appearing gentleman on mechanical ventilation eyes open attempting to communicate VITAL SIGNS: see below. HEENT: Pupils equal, round, and reactive to light. Tracheostomy site clean and intact. CARDIAC: S1, S2, CHEST: Diminished air entry bilaterally. ABDOMEN: Mildly distended. No bowel sounds. EXTREMITIES: No cyanosis, clubbing edema +1 NEUROLOGIC: Generalized weakness Results/Medications Result Diagram: 09/07/16 0430 09/07/16 0430 Results 24 hrs Laboratory Tests Test 09/06/16 12:42 09/06/16 18:45 09/06/16 23:43 09/07/16 04:30 Bedside Glucose 172 181 184 White Blood Count 27.6 H Red Blood Count 3.20 L Hemoglobin 8.8 L Hematocrit 29.6 L Mean Corpuscular Volume 92.5 Mean Corpuscular Hemoglobin 27.5 L Mean Corpuscular Hemoglobin Concent 29.7 L Red Cell Distribution Width 17.8 H Platelet Count 277 # Mean Platelet Volume 10.2 Sodium Level 138 Potassium Level 4.3 Chloride Level 106 Carbon Dioxide Level 26 Anion Gap 10 # Blood Urea Nitrogen 21 H Creatinine 0.41 L Glucose Level 210 Calcium Level 7.2 L Phosphorus Level 3.1 Magnesium Level 1.2 L Test 09/07/16 05:44 Bedside Glucose 195 Medications Current Medications Ondansetron HCl (Zofran Inj) 4 mg Q6H PRN IV NAUSEA AND/OR VOMITING Last administered on 08/15/16 05:11; Admin Dose 4 MG; Start 07/31/16 at 15:00 Morphine Sulfate (morphine) 2 mg Q4H PRN IV SEVERE PAIN LEVEL 7-10 Last administered on 09/06/16 13:24; Admin Dose 2 MG; Start 07/31/16 at 15:00 Magnesium Hydroxide (Milk Of Mag) 30 ml DAILY PRN PO CONSTIPATION Last administered on 09/03/16 15:46; Admin Dose 30 ML; Start 07/31/16 at 15:00 Sodium Biphosphate/ Sodium Phosphate (Fleet Enema) 133 ml DAILY PRN [place] CONSTIPATION; Start 07/31/16 at 15:00 Hydralazine HCl (Apresoline) 10 mg Q6H PRN IV ELEVATED BLOOD PRESSURE; Start at 15:00 Nitroglycerin (Nitroglycerin (Sl Tab) 0.4 Mg) 1 tab Q5M PRN SL ANGINA; Start at 15:00 Miscellaneous Information 1 ea NOTE XX ; Start 07/31/16 at 16:30 Glucose (Glutose) 15 gm Q15M PRN PO DECREASED GLUCOSE; Start 07/31/16 at 16:30 Glucose (Glutose) 22.5 gm Q15M PRN PO DECREASED GLUCOSE; Start 07/31/16 at 16: 30 Dextrose (D50w Syringe) 25 ml Q15M PRN IV DECREASED GLUCOSE; Start 07/31/16 at 16:30 Dextrose (D50w Syringe) 50 ml Q15M PRN IV DECREASED GLUCOSE; Start 07/31/16 at 16:30 Glucagon (Glucagen) 1 mg Q15M PRN IM DECREASED GLUCOSE; Start 07/31/16 at 16:30 Glucose (Glutose) 15 gm Q15M PRN BUCCAL DECREASED GLUCOSE; Start 07/31/16 at 16 :30 Sodium Hypochlorite (Dakin'S (1/4 Strength)) 1 applic BID IRR Last administered on 09/06/16 20:50; Admin Dose 1 APPLIC; Start 08/01/16 at 21:00 Zinc Sulfate (Zinc Sulfate) 220 mg DAILY GTB Last administered on 09/06/16 08: 47; Admin Dose 220 MG; Start 08/03/16 at 11:30 Multivitamins Therapeutic (Theragran) 1 tab DAILY PO Last administered on 08:46; Admin Dose 1 TAB; Start 08/03/16 at 11:30 Ascorbic Acid (Vitamin C) 500 mg BID GTB Last administered on 09/06/16 20:49; Admin Dose 500 MG; Start 08/03/16 at 11:30 Sodium Hypochlorite (Dakin'S (Dilute 1/40%)) 1 applic BID IRR Last administered on 09/06/16 20:50; Admin Dose 1 APPLIC; Start 08/04/16 at 12:00 Levothyroxine Sodium (Synthroid) 25 mcg DAILY@06 PO Last administered on 05:41; Admin Dose 25 MCG; Start 08/11/16 at 06:00 Paroxetine HCl (Paxil) 10 mg DAILY PO Last administered on 09/06/16 09:15; Admin Dose 10 MG; Start 08/11/16 at 21:00 Insulin Aspart (Novolog Insulin Pen) NOVOLOG *MODERATE* ALGORI... Q6 SC Last administered on 09/07/16 05:45; Admin Dose 4 UNIT; Start 08/13/16 at 00:00 Lactobacillus Acidoph/Bulgaricus (Floranex) 1 tab TID GTB Last administered on 09/06/16 20:49; Admin Dose 1 TAB; Start 08/15/16 at 21:30 Metformin HCl (Glucophage) 500 mg Q12 GTB Last administered on 08/27/16 08:54 ; Admin Dose 500 MG; Start 08/15/16 at 21:30; Status Future Hold Acetaminophen (Tylenol Tab) 650 mg Q6H PRN GTB PAIN AND OR ELEVATED TEMP Last administered on 09/04/16 18:42; Admin Dose 650 MG; Start 08/15/16 at 21:30 Magnesium Oxide (Mag-Ox 400) 400 mg DAILY GTB Last administered on 09/06/16 08: 47; Admin Dose 400 MG; Start 08/20/16 at 09:00 Enoxaparin Sodium (Lovenox) 40 mg DAILY SC Last administered on 09/06/16 09:07 ; Admin Dose 40 MG; Start 08/22/16 at 09:00 Famotidine (Pepcid) 20 mg DAILY GTB Last administered on 09/06/16 08:46; Admin Dose 20 MG; Start 08/22/16 at 09:00 Potassium Chloride (Potassium Chloride Pwd/Soln) 40 meq BID GTB Last administered on 09/06/16 20:50; Admin Dose 40 MEQ; Start 08/23/16 at 21:00 Nystatin 5 ml 5 ml QID PO Last administered on 09/06/16 20:50; Admin Dose 5 ML ; Start 08/25/16 at 17:00 Norepinephrine/ Dextrose (Levophed/D5W) 500 ml @ 1.87 mls/hr TITRATE IV Last administered on 09/05/16 22:31; Admin Dose 16.87 MLS/HR; Start 08/28/16 at 09:00 Metronidazole 500 mg 500 mg Q8 PO Last administered on 09/07/16 05:42; Admin Dose 500 MG; Start 08/29/16 at 14:00 Colistimethate Sodium 75 mg/ Sodium Chloride 100 ml @ 200 mls/hr Q12 IVPB Last administered on 09/06/16 16:30; Admin Dose 200 MLS/HR; Start 08/31/16 at 21 :00 Linezolid (Zyvox 600mg/D5W (Pmx)) 300 ml @ 300 mls/hr Q12 IVPB Last administered on 09/06/16 20:47; Admin Dose 300 MLS/HR; Start 08/31/16 at 21:00 Alprazolam 0.25 mg 0.25 mg Q6H PRN GTB ANXIETY Last administered on 09/02/16 22 :16; Admin Dose 0.25 MG; Start 09/02/16 at 16:00 Sodium Chloride (NS) 1,000 ml @ 100 mls/hr Q10H IV Last administered on 08:44; Admin Dose 100 MLS/HR; Start 09/04/16 at 12:00 Lorazepam (Ativan) 0.5 mg Q6H PRN IV ANXIETY Last administered on 09/06/16 20: 12; Admin Dose 0.5 MG; Start 09/05/16 at 10:30 Hydrocortisone 100 mg 100 mg Q8 IV Last administered on 09/07/16 05:58; Admin Dose 100 MG; Start 09/05/16 at 14:00 Caspofungin/ Sodium Chloride (Cancidas/NS) 250 ml @ 250 mls/hr Q24H IVPB Last administered on 09/06/16 15:30; Admin Dose 250 MLS/HR; Start 09/06/16 at 15:30 Insulin Glargine 15 unit 15 unit DAILY SC Last administered on 09/06/16 13:42; Admin Dose 15 UNIT; Start 09/06/16 at 10:30 Phenylephrine HCl 160 mg/Sodium Chloride 500 ml @ 18.75 mls/ hr TITRATE IV Last administered on 09/06/16 19:15; Admin Dose 18.75 MLS/HR; Start 09/06/16 at 11:00 Magnesium Sulfate/ Sodium Chloride (Magnesium Sulfate/NS) 106 ml @ 35.333 mls/ hr ONCE ONCE IVPB ; Start 09/07/16 at 10:00; Stop 09/07/16 at 12:59 Assessment/Plan Chief Complaint/Hosp Course Assessment 1. Vent dependent respiratory failure 2. Refractory septic shock likely polymicrobial possible component of adrenal insufficiency hemodynamically improved since addition of hydrocortisone 3. Significant anemia likely of chronic disease 4. Dysphagia with G-tube 5. History of quadriplegia 6. Status post Septic shock possible adrenal insufficiency and stress dose steroids with improved hemodynamics status 7. Likely underlying lymphoproliferative process given persistent leukocytosis Plan 1. Continue mechanical ventilation 2. Continue broad-spectrum antibiotic coverage 3. Continue wound care 4. DVT and GI prophylaxis 5. Tube feeding as tolerated 6. Vasopressors as needed continue hydrocortisone. We'll decrease steroids once off vasopressors Disposition Continue current mechanical ventilation Stable for transfer to [facility] on low-dose vasopressors Problems: ABI FLOR MD, [facility] Sep 07, 2016 10:18
[2016-09-07] MEDS: LORAZEPAM 2 MG INJ IV PRN ×3 (10:56→23:59)
[2016-09-07] MEDS: FAMOTIDINE 20 MG TAB GTB SCH (11:00)
[2016-09-07] MEDS: MAGNESIUM OXIDE 400 MG TAB GTB SCH (11:00)
[2016-09-07] MEDS: PAROXETINE 10 MG TAB PO SCH (11:00)
[2016-09-07] MEDS: ASCORBIC ACID 500 MG TAB GTB SCH ×2 (11:00→20:31)
[2016-09-07] MEDS: MULTIVITAMINS THERAPEUTIC TAB PO SCH (11:00)
[2016-09-07] MEDS: LACTOBACILLUS CHEW TAB GTB SCH ×3 (11:00→20:30)
[2016-09-07] MEDS: NYSTATIN SUSP 5 ML CUP PO SCH ×4 (11:01→20:30)
[2016-09-07] MEDS: POTASSIUM CHLORIDE 20 MEQ POWDER FOR ORAL SOLN GTB SCH ×2 (11:01→20:30)
[2016-09-07] MEDS: ZINC SULFATE 220 MG CAP GTB SCH (11:01)
[2016-09-07] MEDS: COLISTIMETHATE 75 MG in SOD CHLORIDE 0.9% 100 ML IVPB SCH ×2 (11:02→20:37)
[2016-09-07] MEDS: INSULIN GLARGINE [LANtus] 3 ML PEN SC SCH (11:04)
[2016-09-07] MEDS: ENOXAPARIN 40 MG/0.4 ML SYG SC SCH (11:05)
[2016-09-07] MEDS: LINEZOLID 600 MG/D5W (PMX) 300 ML IVPB SCH ×2 (12:24→21:27)
--- NOTE | 2016-09-07 12:32 | CONS ---
Date/Time of Note Date/Time of Note DATE: 09/07/16 TIME: 12:30 Assessment/Plan Assessment/Plan Chief Complaint/Hosp Course SUBJECTIVE: No acute changes. The patient remains tachycardic on Jabari drip. He is afebrile, sleeping, in no distress. MICROBIOLOGY: Blood cultures since transferring to ICU remain negative. INDWELLINGS: Trach, PEG, Oliveira, left chest Port-A-Cath. ANTIMICROBIALS: 1. Cancidas. 2. Colistin. 3. Zyvox. 4. Tobramycin INH 5. Flagyl. PHYSICAL EXAMINATION: GENERAL: This is a chronically ill-appearing, middle-aged man who is awake, in no distress. HEENT: Head atraumatic, normocephalic. Sclerae anicteric. Buccal mucosa dry. NECK: Supple. Tracheostomy present. CHEST: Rise symmetrical. Breath sounds with bilateral rales. HEART: S1, S2. ABDOMEN: Soft, bowel tones present. EXTREMITIES: Bilateral edema. ASSESSMENT: 1. Severe sepsis with shock. 2. Healthcare-associated pneumonia with repeat CT of the chest revealed multifocal pneumonia. 3. Multiple infected chronic wounds. 4. Chronic respiratory failure. 5. Anemia. 6. Sinus tachycardia. 7. Quadriplegia status post cervical spine injury. 8. Leukocytosis, patient is on Solu-Cortef. PLAN: The patient remains hemodynamically unstable, covered with broad spectrum antibiotics and on antifungal coverage. He is on Solu-Cortef 100 mg q. 8 hours. He is being followed by multiple consultants. He has a left chest Port-A-Cath that may need to be discontinued given persistent sepsis. The patient is CHEMICAL CODE. KOLTON RN Problems: Consultation Date/Type/Reason Admit Date/Time Jul 31, 2016 at 14:20 Initial Consult Date 08/02/16 Type of Consultation: ID Exam/Review of Systems Vital Signs Vitals Vital Signs Date Time Temp Pulse Resp B/P Pulse Ox O2 Delivery O2 Flow Rate FiO2 09/07/16 09:30 92 24 89/68 09/07/16 09:00 100 Mechanical Ventilator 09/07/16 08:00 96.5 09/07/16 05:38 40 Intake and Output 09/06/16 09/06/16 09/07/16 15:00 23:00 07:00 Intake Total 1520 ml 1790.95 ml 1396.25 ml Output Total 310 ml 885 ml 475 ml Balance 1210 ml 905.95 ml 921.25 ml Results Result Diagram: 09/07/16 0430 09/07/16 0430 Results 24 hrs Laboratory Tests Test 09/06/16 12:42 09/06/16 18:45 09/06/16 23:43 09/07/16 04:30 Bedside Glucose 172 181 184 White Blood Count 27.6 H Red Blood Count 3.20 L Hemoglobin 8.8 L Hematocrit 29.6 L Mean Corpuscular Volume 92.5 Mean Corpuscular Hemoglobin 27.5 L Mean Corpuscular Hemoglobin Concent 29.7 L Red Cell Distribution Width 17.8 H Platelet Count 277 # Mean Platelet Volume 10.2 Sodium Level 138 Potassium Level 4.3 Chloride Level 106 Carbon Dioxide Level 26 Anion Gap 10 # Blood Urea Nitrogen 21 H Creatinine 0.41 L Glucose Level 210 Calcium Level 7.2 L Phosphorus Level 3.1 Magnesium Level 1.2 L Test 09/07/16 05:44 09/07/16 09:22 09/07/16 10:49 Bedside Glucose 195 208 Lactic Acid Level 2.9 H Medications Medications Current Medications Ondansetron HCl (Zofran Inj) 4 mg Q6H PRN IV NAUSEA AND/OR VOMITING Last administered on 08/15/16 05:11; Admin Dose 4 MG; Start 07/31/16 at 15:00 Morphine Sulfate (morphine) 2 mg Q4H PRN IV SEVERE PAIN LEVEL 7-10 Last administered on 09/06/16 13:24; Admin Dose 2 MG; Start 07/31/16 at 15:00 Magnesium Hydroxide (Milk Of Mag) 30 ml DAILY PRN PO CONSTIPATION Last administered on 09/03/16 15:46; Admin Dose 30 ML; Start 07/31/16 at 15:00 Sodium Biphosphate/ Sodium Phosphate (Fleet Enema) 133 ml DAILY PRN [place] CONSTIPATION; Start 07/31/16 at 15:00 Hydralazine HCl (Apresoline) 10 mg Q6H PRN IV ELEVATED BLOOD PRESSURE; Start at 15:00 Nitroglycerin (Nitroglycerin (Sl Tab) 0.4 Mg) 1 tab Q5M PRN SL ANGINA; Start at 15:00 Miscellaneous Information 1 ea NOTE XX ; Start 07/31/16 at 16:30 Glucose (Glutose) 15 gm Q15M PRN PO DECREASED GLUCOSE; Start 07/31/16 at 16:30 Glucose (Glutose) 22.5 gm Q15M PRN PO DECREASED GLUCOSE; Start 07/31/16 at 16: 30 Dextrose (D50w Syringe) 25 ml Q15M PRN IV DECREASED GLUCOSE; Start 07/31/16 at 16:30 Dextrose (D50w Syringe) 50 ml Q15M PRN IV DECREASED GLUCOSE; Start 07/31/16 at 16:30 Glucagon (Glucagen) 1 mg Q15M PRN IM DECREASED GLUCOSE; Start 07/31/16 at 16:30 Glucose (Glutose) 15 gm Q15M PRN BUCCAL DECREASED GLUCOSE; Start 07/31/16 at 16 :30 Sodium Hypochlorite (Dakin'S (1/4 Strength)) 1 applic BID IRR Last administered on 09/07/16 09:00; Admin Dose 1 APPLIC; Start 08/01/16 at 21:00 Zinc Sulfate (Zinc Sulfate) 220 mg DAILY GTB Last administered on 09/07/16 11: 01; Admin Dose 220 MG; Start 08/03/16 at 11:30 Multivitamins Therapeutic (Theragran) 1 tab DAILY PO Last administered on 11:00; Admin Dose 1 TAB; Start 08/03/16 at 11:30 Ascorbic Acid (Vitamin C) 500 mg BID GTB Last administered on 09/07/16 11:00; Admin Dose 500 MG; Start 08/03/16 at 11:30 Sodium Hypochlorite (Dakin'S (Dilute 1/40%)) 1 applic BID IRR Last administered on 09/07/16 09:00; Admin Dose 1 APPLIC; Start 08/04/16 at 12:00 Levothyroxine Sodium (Synthroid) 25 mcg DAILY@06 PO Last administered on 05:41; Admin Dose 25 MCG; Start 08/11/16 at 06:00 Paroxetine HCl (Paxil) 10 mg DAILY PO Last administered on 09/07/16 11:00; Admin Dose 10 MG; Start 08/11/16 at 21:00 Insulin Aspart (Novolog Insulin Pen) NOVOLOG *MODERATE* ALGORI... Q6 SC Last administered on 09/07/16 11:03; Admin Dose 4 UNIT; Start 08/13/16 at 00:00 Lactobacillus Acidoph/Bulgaricus (Floranex) 1 tab TID GTB Last administered on 09/07/16 11:00; Admin Dose 1 TAB; Start 08/15/16 at 21:30 Metformin HCl (Glucophage) 500 mg Q12 GTB Last administered on 08/27/16 08:54 ; Admin Dose 500 MG; Start 08/15/16 at 21:30; Status Future Hold Acetaminophen (Tylenol Tab) 650 mg Q6H PRN GTB PAIN AND OR ELEVATED TEMP Last administered on 09/04/16 18:42; Admin Dose 650 MG; Start 08/15/16 at 21:30 Magnesium Oxide (Mag-Ox 400) 400 mg DAILY GTB Last administered on 09/07/16 11: 00; Admin Dose 400 MG; Start 08/20/16 at 09:00 Enoxaparin Sodium (Lovenox) 40 mg DAILY SC Last administered on 09/07/16 11:05 ; Admin Dose 40 MG; Start 08/22/16 at 09:00 Famotidine (Pepcid) 20 mg DAILY GTB Last administered on 09/07/16 11:00; Admin Dose 20 MG; Start 08/22/16 at 09:00 Potassium Chloride (Potassium Chloride Pwd/Soln) 40 meq BID GTB Last administered on 09/07/16 11:01; Admin Dose 40 MEQ; Start 08/23/16 at 21:00 Nystatin 5 ml 5 ml QID PO Last administered on 09/07/16 11:01; Admin Dose 5 ML ; Start 08/25/16 at 17:00 Norepinephrine/ Dextrose (Levophed/D5W) 500 ml @ 1.87 mls/hr TITRATE IV Last administered on 09/05/16 22:31; Admin Dose 16.87 MLS/HR; Start 08/28/16 at 09:00 Metronidazole 500 mg 500 mg Q8 PO Last administered on 09/07/16 05:42; Admin Dose 500 MG; Start 08/29/16 at 14:00 Colistimethate Sodium 75 mg/ Sodium Chloride 100 ml @ 200 mls/hr Q12 IVPB Last administered on 09/07/16 11:02; Admin Dose 200 MLS/HR; Start 08/31/16 at 21 :00 Linezolid (Zyvox 600mg/D5W (Pmx)) 300 ml @ 300 mls/hr Q12 IVPB Last administered on 09/07/16 12:24; Admin Dose 300 MLS/HR; Start 08/31/16 at 21:00 Alprazolam 0.25 mg 0.25 mg Q6H PRN GTB ANXIETY Last administered on 09/02/16 22 :16; Admin Dose 0.25 MG; Start 09/02/16 at 16:00 Sodium Chloride (NS) 1,000 ml @ 100 mls/hr Q10H IV Last administered on 08:44; Admin Dose 100 MLS/HR; Start 09/04/16 at 12:00 Lorazepam (Ativan) 0.5 mg Q6H PRN IV ANXIETY Last administered on 09/07/16 10: 56; Admin Dose 0.5 MG; Start 09/05/16 at 10:30 Hydrocortisone 100 mg 100 mg Q8 IV Last administered on 09/07/16 05:58; Admin Dose 100 MG; Start 09/05/16 at 14:00 Caspofungin/ Sodium Chloride (Cancidas/NS) 250 ml @ 250 mls/hr Q24H IVPB Last administered on 09/06/16 15:30; Admin Dose 250 MLS/HR; Start 09/06/16 at 15:30 Insulin Glargine 15 unit 15 unit DAILY SC Last administered on 09/07/16 11:04; Admin Dose 15 UNIT; Start 09/06/16 at 10:30 Phenylephrine HCl 160 mg/Sodium Chloride 500 ml @ 18.75 mls/ hr TITRATE IV Last administered on 09/06/16 19:15; Admin Dose 18.75 MLS/HR; Start 09/06/16 at 11:00 Magnesium Sulfate/ Sodium Chloride (Magnesium Sulfate/NS) 106 ml @ 35.333 mls/ hr ONCE ONCE IVPB ; Start 09/07/16 at 10:00; Stop 09/07/16 at 12:59 LESLIE FERRARO NP Sep 07, 2016 12:32
[2016-09-07 13:09] LABS: EOSINOPHILS # 0.3 10^3/ul (0.0-0.5); LYMPHOCYTES # 1.4 10^3/ul (0.8-2.9); MONOCYTE # 1.4 10^3/ul (0.3-0.9); NEUTROPHIL # 22.4 10^3/ul (1.6-7.5)
--- NOTE | 2016-09-07 14:05 | CONS ---
Date/Time of Note Date/Time of Note DATE: 09/07/16 TIME: 14:03 Assessment/Plan Assessment/Plan Additional Assessment/Plan Septic shock Acute decompensated systolic congestive heart failure Sinus tachycardia C2 fracture and quadriplegic Respiratory failure Cardiomyopathy with ejection fraction 50% via echo on previous admission Decubiti Hypotension -Titrate IV pressor to maintain SBP greater than 90 and her map above 60, continue to hold any antihypertensives. Sinus tachycardia is manifestation of patient's severe sepsis. Antibiotics as per infectious disease. Consultation Date/Type/Reason Admit Date/Time Jul 31, 2016 at 14:20 Type of Consultation: cv 24 HR Interval Summary Free Text/Dictation Patient seen and examined. Exam/Review of Systems Vital Signs Vitals Vital Signs Date Time Temp Pulse Resp B/P Pulse Ox O2 Delivery O2 Flow Rate FiO2 09/07/16 13:15 102 24 100/75 09/07/16 13:00 100 Mechanical Ventilator 09/07/16 12:00 96.4 09/07/16 11:25 40 Intake and Output 09/06/16 09/06/16 09/07/16 15:00 23:00 07:00 Intake Total 1520 ml 1790.95 ml 1396.25 ml Output Total 310 ml 885 ml 475 ml Balance 1210 ml 905.95 ml 921.25 ml Exam No apparent distress, opens his eyes to his name but falls asleep Neck: other (Tracheostomy) Respiratory: other (Coarse breath sounds bilaterally with scattered crackles, no wheezing) Cardiovascular: other (S1-S2 heard), regular rate and rhythm Gastrointestinal: bowel sounds, non-tender, soft Extremities: edema Results Result Diagram: 09/07/160 09/07/16 0430 Results 24 hrs Laboratory Tests Test 09/06/16 18:45 09/06/16 23:43 09/07/16 04:30 09/07/16 05:44 Bedside Glucose 181 184 195 White Blood Count 27.6 H Red Blood Count 3.20 L Hemoglobin 8.8 L Hematocrit 29.6 L Mean Corpuscular Volume 92.5 Mean Corpuscular Hemoglobin 27.5 L Mean Corpuscular Hemoglobin Concent 29.7 L Red Cell Distribution Width 17.8 H Platelet Count 277 # Mean Platelet Volume 10.2 Neutrophils % 81.0 H Band Neutrophils % 8.0 H Lymphocytes % 5.0 L Monocytes % 5.0 Eosinophils % 1.0 Neutrophils # 22.4 H Lymphocytes # 1.4 Monocytes # 1.4 H Eosinophils # 0.3 Differential Comment MANUAL DIFF Sodium Level 138 Potassium Level 4.3 Chloride Level 106 Carbon Dioxide Level 26 Anion Gap 10 # Blood Urea Nitrogen 21 H Creatinine 0.41 L Glucose Level 210 Calcium Level 7.2 L Phosphorus Level 3.1 Magnesium Level 1.2 L Test 09/07/16 09:22 09/07/16 10:49 Lactic Acid Level 2.9 H Bedside Glucose 208 Medications Medications Current Medications Ondansetron HCl (Zofran Inj) 4 mg Q6H PRN IV NAUSEA AND/OR VOMITING Last administered on 08/15/16 05:11; Admin Dose 4 MG; Start 07/31/16 at 15:00 Morphine Sulfate (morphine) 2 mg Q4H PRN IV SEVERE PAIN LEVEL 7-10 Last administered on 09/06/16 13:24; Admin Dose 2 MG; Start 07/31/16 at 15:00 Magnesium Hydroxide (Milk Of Mag) 30 ml DAILY PRN PO CONSTIPATION Last administered on 09/03/16 15:46; Admin Dose 30 ML; Start 07/31/16 at 15:00 Sodium Biphosphate/ Sodium Phosphate (Fleet Enema) 133 ml DAILY PRN [place] CONSTIPATION; Start 07/31/16 at 15:00 Hydralazine HCl (Apresoline) 10 mg Q6H PRN IV ELEVATED BLOOD PRESSURE; Start at 15:00 Nitroglycerin (Nitroglycerin (Sl Tab) 0.4 Mg) 1 tab Q5M PRN SL ANGINA; Start at 15:00 Miscellaneous Information 1 ea NOTE XX ; Start 07/31/16 at 16:30 Glucose (Glutose) 15 gm Q15M PRN PO DECREASED GLUCOSE; Start 07/31/16 at 16:30 Glucose (Glutose) 22.5 gm Q15M PRN PO DECREASED GLUCOSE; Start 07/31/16 at 16: 30 Dextrose (D50w Syringe) 25 ml Q15M PRN IV DECREASED GLUCOSE; Start 07/31/16 at 16:30 Dextrose (D50w Syringe) 50 ml Q15M PRN IV DECREASED GLUCOSE; Start 07/31/16 at 16:30 Glucagon (Glucagen) 1 mg Q15M PRN IM DECREASED GLUCOSE; Start 07/31/16 at 16:30 Glucose (Glutose) 15 gm Q15M PRN BUCCAL DECREASED GLUCOSE; Start 07/31/16 at 16 :30 Zinc Sulfate (Zinc Sulfate) 220 mg DAILY GTB Last administered on 09/07/16 11: 01; Admin Dose 220 MG; Start 08/03/16 at 11:30 Multivitamins Therapeutic (Theragran) 1 tab DAILY PO Last administered on 11:00; Admin Dose 1 TAB; Start 08/03/16 at 11:30 Ascorbic Acid (Vitamin C) 500 mg BID GTB Last administered on 09/07/16 11:00; Admin Dose 500 MG; Start 08/03/16 at 11:30 Levothyroxine Sodium (Synthroid) 25 mcg DAILY@06 PO Last administered on 05:41; Admin Dose 25 MCG; Start 08/11/16 at 06:00 Paroxetine HCl (Paxil) 10 mg DAILY PO Last administered on 09/07/16 11:00; Admin Dose 10 MG; Start 08/11/16 at 21:00 Insulin Aspart (Novolog Insulin Pen) NOVOLOG *MODERATE* ALGORI... Q6 SC Last administered on 09/07/16 11:03; Admin Dose 4 UNIT; Start 08/13/16 at 00:00 Lactobacillus Acidoph/Bulgaricus (Floranex) 1 tab TID GTB Last administered on 09/07/16 13:54; Admin Dose 1 TAB; Start 08/15/16 at 21:30 Metformin HCl (Glucophage) 500 mg Q12 GTB Last administered on 08/27/16 08:54 ; Admin Dose 500 MG; Start 08/15/16 at 21:30; Status Future Hold Acetaminophen (Tylenol Tab) 650 mg Q6H PRN GTB PAIN AND OR ELEVATED TEMP Last administered on 09/04/16 18:42; Admin Dose 650 MG; Start 08/15/16 at 21:30 Magnesium Oxide (Mag-Ox 400) 400 mg DAILY GTB Last administered on 09/07/16 11: 00; Admin Dose 400 MG; Start 08/20/16 at 09:00 Enoxaparin Sodium (Lovenox) 40 mg DAILY SC Last administered on 09/07/16 11:05 ; Admin Dose 40 MG; Start 08/22/16 at 09:00 Famotidine (Pepcid) 20 mg DAILY GTB Last administered on 09/07/16 11:00; Admin Dose 20 MG; Start 08/22/16 at 09:00 Potassium Chloride (Potassium Chloride Pwd/Soln) 40 meq BID GTB Last administered on 09/07/16 11:01; Admin Dose 40 MEQ; Start 08/23/16 at 21:00 Nystatin 5 ml 5 ml QID PO Last administered on 09/07/16 13:54; Admin Dose 5 ML ; Start 08/25/16 at 17:00 Norepinephrine/ Dextrose (Levophed/D5W) 500 ml @ 1.87 mls/hr TITRATE IV Last administered on 09/05/16 22:31; Admin Dose 16.87 MLS/HR; Start 08/28/16 at 09:00 Metronidazole 500 mg 500 mg Q8 PO Last administered on 09/07/16 05:42; Admin Dose 500 MG; Start 08/29/16 at 14:00 Colistimethate Sodium 75 mg/ Sodium Chloride 100 ml @ 200 mls/hr Q12 IVPB Last administered on 09/07/16 11:02; Admin Dose 200 MLS/HR; Start 08/31/16 at 21 :00 Linezolid (Zyvox 600mg/D5W (Pmx)) 300 ml @ 300 mls/hr Q12 IVPB Last administered on 09/07/16 12:24; Admin Dose 300 MLS/HR; Start 08/31/16 at 21:00 Alprazolam 0.25 mg 0.25 mg Q6H PRN GTB ANXIETY Last administered on 09/02/16 22 :16; Admin Dose 0.25 MG; Start 09/02/16 at 16:00 Sodium Chloride (NS) 1,000 ml @ 100 mls/hr Q10H IV Last administered on 08:44; Admin Dose 100 MLS/HR; Start 09/04/16 at 12:00 Lorazepam (Ativan) 0.5 mg Q6H PRN IV ANXIETY Last administered on 09/07/16 10: 56; Admin Dose 0.5 MG; Start 09/05/16 at 10:30 Hydrocortisone 100 mg 100 mg Q8 IV Last administered on 09/07/16 05:58; Admin Dose 100 MG; Start 09/05/16 at 14:00 Caspofungin/ Sodium Chloride (Cancidas/NS) 250 ml @ 250 mls/hr Q24H IVPB Last administered on 09/06/16 15:30; Admin Dose 250 MLS/HR; Start 09/06/16 at 15:30 Insulin Glargine 15 unit 15 unit DAILY SC Last administered on 09/07/16 11:04; Admin Dose 15 UNIT; Start 09/06/16 at 10:30 Phenylephrine HCl/ Sodium Chloride (Jabari-Syneph/NS) 500 ml @ 18.75 mls/ hr TITRATE IV Last administered on 09/06/16 19:15; Admin Dose 18.75 MLS/HR; Start 09/06/16 at 11:00 Sodium Hypochlorite (Dakin'S (Dilute 1/40%)) 1 applic QHS IRR ; Start 09/07/16 at 21:00 Sodium Hypochlorite (Dakin'S (1/4 Strength)) 1 applic QHS IRR ; Start 09/07/16 at 21:00 Kb Barrett DO Sep 07, 2016 14:04
--- NOTE | 2016-09-07 15:34 | TS ---
DATE OF ADMISSION: 07/31/2016 DATE OF DISCHARGE: 09/07/2016 PRESENTING COMPLAINT: A 46-year-old male sent from the residential because of fever. ADMISSION DIAGNOSES: 1. Sepsis. 2, Chronic respiratory failure, tracheostomy dependence. 3. G-tube feeds. 4. History of C2 fracture, quadriplegia. CONSULTS ON THE CASE: * Dr. Tejas Azul, infectious disease, * Dr. Tito Perera, Dr. Reji Nicholson for pulmonary * Dr. Kb Syed for surgery * Dr. Kb Barrett for Cardiology. INTERVENTIONS: 1. Patient had multiple chest x-rays, the last of which was done today, 2016, it showed * tracheostomy tube and central venous port in the left internal jugular vein remains in satisfactory position. * Diffuse patchy consolidations consistent with multifocal pneumonia, cardiomegaly, small bilateral pleural effusions without pneumothorax. 2. During the hospitalization as well, the patient underwent multiple lower extremity venous Dopplers, none of which came back positive for DVT. 3. The patient on 09/05/[address] angiogram that showed no CT evidence of pulmonary embolism, dense alveolar consolidation and infiltrate, most compatible with multifocal pneumonia. Fine nodular densities diffusely in both lungs, small bilateral effusion with cholelithiasis. 4. The patient had a CT of the abdomen and pelvis 08/14/2016 that showed atelectasis in the lung bases, several small nonobstructing bilateral renal stones, Oliveira catheter in the bladder. 5. He also had a WBC scan that was negative for infectious process in the spine and the pelvis. 6. He also had a CT scan of the cervical spine showed that patient is status post occiput to C5 posterior fusion with posterolateral osseous graft intact in appropriate position as well as trace anterolisthesis of C2 on C3, with displaced fracture of bilateral pars interarticularis of C2, moderate to severe neural foraminal stenosis at C5 to C6 and C6 to C7, primarily related to prominent left-sided uncovertebral spurring. HOSPITAL COURSE: Full details are available in the chart for review. In summary, this is a 46-year-old unfortunate male who has sustained a fall from a ladder a few months ago back in April of 2016 and at that time had sustained a C2 fracture. This left him quadriplegic and he ended up needing a tracheostomy and being chronically ventilator dependent. He also ended up with a concomitant dysphagia and required a PEG tube for feeding. He underwent cervical spine surgery to repair his fracture and he had occipital C5 posterior fusion with a posterolateral graft. Once stabilized, [facility]. He had his cervical collar in place and was supposed to have this on for 4 months, per the patient. Unfortunately, at the [facility] facility and since his procedure, the patient developed multiple decubiti ulcers and at the time he was sent to us, he had also developed bilateral pneumonia. He came to us with severe sepsis and ended up in septic shock and was managed aggressively, according to protocol. His wound and his urine as well as his respiratory cultures were growing out multidrug resistant organisms. Surgery was consulted for possible debridement of his very deep sacral ulcers; however, the patient also developed congestive heart failure at some point and he was considered unstable for surgery. Plastic surgery was consulted as well, and they determined that the patient would benefit from a diverting colostomy after which they might consider grafting his deep ulcers. However, in view of his quality of life as well as the fact that the patient has never fully recovered from his septic pneumonia and septic shock, he has remained unstable for any kind of elective major surgery at this time. Infectious disease has been following the patient throughout his hospitalization course and the patient has required extremely potent antibiotics with minimal effect. Right now he is on caspofungin for antifungal coverage, inhaled Colistin and tobramycin. He remains in intensive care unit on pressor support and his white count still remains elevated at 27,000. Clinically, however, the patient while lethargic, remains alert and oriented. He was seen by the palliative care team and has opted for CHEMICAL CODE ONLY. He was also seen by Neurosurgery, Dr. Kimani Jimenez, who reviewed the CT scan of his cervical spine and advised discontinuation of his cervical collar and felt that there was no further intervention required for his C spine fractures. The patient is quite unfortunate and his long-term prognosis is not very bright. However, he has been essentially in similar condition for most of his hospitalization. He remains in severe sepsis with waxing and waning shock despite aggressive antibiotic and clinical therapy. Currently, he is undergoing wound dressing changes twice a day. FINAL DIAGNOSES: As follows: 1. Severe sepsis with shock secondary to multifocal pneumonia and decubitus ulcer infection, still on pressors, now on minimal pressor support. 2. Decubitus wound ulcer as colonizer and multidrug resistant organism. 3. Patient was stable for diverting colostomy and debridement and is not thought to improve quality of life post-procedure. 4. Quadriplegia secondary to history of C2 fracture. 5. Chronic ventilator dependent respiratory failure secondary to quadriplegia. 6. Chronic congestive heart failure. 7. History of Clostridium difficile infection. 8. Tobacco use. 9. Hypothyroidism. 10. Depression. 11. Anemia of chronic disease, likely superimposed on chronic blood loss from severe decubiti. 12. Diet controlled diabetes type 2 with acute tachycardia based on steroid therapy. 13. Persistent tachycardia, likely secondary to shock. DISPOSITION: The patient is to be transferred to his [facility] facility, [facility], for continued management. DIET: The patient is on tube feeds with Diabetisource at 35 mL per hour. Note that this is lower than the recommended dietitian rate; however, the patient is extremely high risk for aspiration and residue and has been tolerating this volume without difficulty. DISCHARGE MEDICATIONS: 1. Cancidas 50 mg q.24h. IV. 2. ____ 75 mg IV q.12h. 3. Linezolid 600 mg q.12. 4. Flagyl 500 p.o. q. 8. 5. Nystatin 5 mL p.o. q.i.d. 6. Tobramycin nebulizers 100 mg b.i.d. 7. Albuterol. 8. Ipratropium q.6h. scheduled and q.2h. p.r.n. 9. Ferrous sulfate 325 via G-tube t.i.d. 10. Lipitor 20 mg via G-tube at bedtime. 11. ____ via G-tube daily. 12. [place] 326 q.6h. p.r.n. 13. Lorazepam 1 mg via G-tube q.4 p.r.n. 14. Ambien 10 mg via G-tube at bedtime p.r.n. 15. Calcium carbonate 500 mg G-tube b.i.d. 16. Jabari-Synephrine titrate to keep mean arterial pressure greater than 65. 17. Zinc sulfate 220 mg via G-tube daily. 18. Colace 250 mg via G-tube b.i.d. 19. Famotidine 250 mg via G-tube daily. 20. Floranex 1 tab via G-tube t.i.d. 21. Zofran 4 mg IV q.6h. p.r.n. 22. Lantus 15 units subq daily. 23. Levothyroxine 75 mcg p.o. daily. Overall, prognosis is poor. DISCHARGE CONDITION: Stable on ACLS. Time is 50 minutes. Dictated By: ALDO BRADEN MD, BA/SCOTTIE Conf#: [id number] DID#: [id number]
[2016-09-07] MEDS: CASPOFUNGIN 50 MG in SOD CHLORIDE 0.9% 250 ML IVPB SCH (17:26)
[2016-09-07] MEDS ORDERED: ALBUMIN HUMAN 25% 100 ML ONE (19:40)
[2016-09-07] MEDS: ALBUMIN HUMAN 25% 100 ML IV SCH ×2 (19:45→20:55)
[2016-09-07] MEDS: ALBUTEROL/IPRATROPIUM (NEB) 3 ML AMP HHN PRN (20:39)
[2016-09-08] VITALS (106 sets, daily range): BP systolic 68–113; BP diastolic 35–97; PULSE 68–140; RESP 16–28
[2016-09-08] MEDS: INSULIN ASPART [NOVOLOG] 3 ML PEN SC SCH ×4 (00:02→18:24)
[2016-09-08] MEDS: ALPRAZOLAM 0.25 MG TAB GTB PRN ×2 (04:10→21:01)
[2016-09-08] MEDS: SOD CHLORIDE 0.9% 1,000 ML IV SCH ×2 (04:11→13:17)
[2016-09-08 05:30] LABS: POTASSIUM 4.3 mmol/L (3.5-5.1)
[2016-09-08 05:32] LABS: CREATININE 0.39 mg/dl (0.61-1.24)
[2016-09-08 05:33] LABS: CALCIUM 7.6 mg/dl (8.4-10.2); MAGNESIUM 1.7 mg/dl (1.7-2.5)
[2016-09-08] MEDS: metroNIDAZOLE 500 MG TAB PO SCH ×3 (05:45→21:26)
[2016-09-08] MEDS: LEVOTHYROXINE 25 MCG TAB PO SCH (05:45)
[2016-09-08] MEDS: HYDROCORTISONE 100 MG INJ IV SCH ×3 (05:45→21:26)
[2016-09-08] MEDS ORDERED: ATROPINE 1 MG/10 ML SYRINGE ONE (06:52)
[2016-09-08] MEDS: ASCORBIC ACID 500 MG TAB GTB SCH ×2 (09:00→20:42)
[2016-09-08 09:07] LABS: AADO2 Arterial 514.5 mmHg (7.0-24.0); Allen Test ACCEPTAB; Arterial Base Excess -1.5 mmol/L (-3.0-3); Arterial COHb 0.3 % (0.0-3.0); Arterial Fraction of Oxyhgb 97.7 % (93.0-99.0); Arterial HCO3 25.7 mmol/L (22.0-26.0); Arterial MetHb 0.5 % (0.0-1.5); Arterial Total Hemglobin 10.6 g/dl (12.0-18.0); MODE VENT - AC
[2016-09-08] MEDS: TOBRAMYCIN/0.25NS 300 MG/5 ML INHAL NEB SCH ×2 (09:14→22:43)
[2016-09-08] MEDS: ALBUTEROL HFA 8 GM INHALER INH SCH ×2 (09:14→15:31)
[2016-09-08 09:38] LABS: ADD SCAN DIFF NO
[2016-09-08 09:48] LABS: ABNORMAL IP MESSAGE 1; HEMATOCRIT 31.2 % (42.0-52.0); HEMOGLOBIN 9.1 g/dl (14.0-18.0); MEAN CORPUSCULAR HEMOGLOBIN 27.1 pg (29.0-33.0); MEAN CORPUSCULAR HGB CONC 29.2 g/dl (32.0-37.0); MEAN CORPUSCULAR VOLUME 92.9 fl (82.0-101.0); MEAN PLATELET VOLUME 10.3 fl (7.4-10.4); PLATELET COUNT 258 10^3/UL (140-415); RED BLOOD COUNT 3.36 10^6/ul (4.70-6.10); RED CELL DISTRIBUTION WIDTH 18.4 % (11.5-14.5); WHITE BLOOD COUNT 27.7 10^3/ul (4.8-10.8)
[2016-09-08] MEDS: LORAZEPAM 2 MG INJ IV PRN ×3 (09:52→22:11)
[2016-09-08] MEDS: FAMOTIDINE 20 MG TAB GTB SCH (10:19)
[2016-09-08] MEDS: POTASSIUM CHLORIDE 20 MEQ POWDER FOR ORAL SOLN GTB SCH ×2 (10:19→20:43)
[2016-09-08] MEDS: MULTIVITAMINS THERAPEUTIC TAB PO SCH (10:19)
[2016-09-08] MEDS: LACTOBACILLUS CHEW TAB GTB SCH ×3 (10:19→20:41)
[2016-09-08] MEDS: PAROXETINE 10 MG TAB PO SCH (10:19)
[2016-09-08] MEDS: MAGNESIUM OXIDE 400 MG TAB GTB SCH (10:19)
[2016-09-08] MEDS: ZINC SULFATE 220 MG CAP GTB SCH (10:20)
[2016-09-08] MEDS: COLISTIMETHATE 75 MG in SOD CHLORIDE 0.9% 100 ML IVPB SCH ×2 (10:20→20:41)
[2016-09-08] MEDS: NYSTATIN SUSP 5 ML CUP PO SCH ×4 (10:20→20:41)
[2016-09-08] MEDS: INSULIN GLARGINE [LANtus] 3 ML PEN SC SCH (10:22)
[2016-09-08] MEDS: ENOXAPARIN 40 MG/0.4 ML SYG SC SCH (10:23)
[2016-09-08 11:17] LABS: LYMPHOCYTES # 0.6 10^3/ul (0.8-2.9); MONOCYTE # 0.6 10^3/ul (0.3-0.9); NEUTROPHIL # 22.4 10^3/ul (1.6-7.5)
[2016-09-08 11:18] LABS: PLATELET ESTIMATE PLT APPEAR ADEQUATE; POLYCHROMASIA 1+
--- NOTE | 2016-09-08 11:20 | PN ---
Date/Time of Note Date/Time of Note DATE: 09/08/16 TIME: 11:16 Assessment/Plan VTE Prophylaxis VTE Prophylaxis Intervention: LMWH Lines/Catheters IV [facility]from [facility] PORTACATH Urinary Cath still in place: Yes Reason Cath still needed: terminal illness/intractable pain, other (indicate) Assessment/Plan Assessment/Plan 46-year-old male sent in with fever and diaphoresis with findings of septic shock. 1) Overwhelming Sepsis/shock - sec to HCAP likely + decub ulcer infx's, now with shock - on pressor support. sp bronch/atb's. 2) Decubitus wound/ MDR organisms. Diverting colostomy & debridement may not be feasible while on vent. quality of life will not improve post therapy. 3) Quadriplegia 2/2 Ho C2 fracture; poor prognosis; palliative care eval appreciated 4) VDRF; cont vent, f/u pulm rec's 5) Chr CHF/ systolic? - monitor 6) Ho c diff - monitor 7. Malnutrition; cont peg/feeds/free water. 8. Past tobacco - monitor 9. Hypernatremia - resolved now 10. Elevated Ca : resolved 11. Hypothyroidism: on Synthroid 12. Depression: Paxil 13. Chronic Pain 14. Anemia of chronic disease + likely chronic blood loss from severe decubiti : Transfusion PRN 15. Persistent tachycardia 16. Diet controlled DM 2 with Hyperglycemia likely 2/2 Phenylephrine in D5W + Steroids: improved control on lantus PLAN: * Patient is currently doing poorly and decompensating / is getting aggressive suctioning and pulm to review . will follow recs * Continue abx per ID * Continue vent support and mgt per pulm * Continue tube feeds / no evidence of aspiration so far / no significant residuals / closely monitor blood glucose, we might need to reduce lantus once off pressors and steroids. * Continue ICU care and support * Patient is now a chemical code only Critical care time spent with pt care today = 40 min. Spoke with family at bedside in detail Prophylaxis: Pepcid / Lovenox Subjective 24 Hr Interval Summary Free Text/Dictation Handley d a rough night required 2 albumin infusions for low BP Also required bag mask ventilations for dropping saturations Subjective hx not possible: pt non-verbal, pt critical status Exam/Review of Systems Vital Signs Vitals Vital Signs Date Time Temp Pulse Resp B/P Pulse Ox O2 Delivery O2 Flow Rate FiO2 09/08/16 08:00 123 09/08/16 07:00 24 107/81 100 Mechanical Ventilator 09/08/16 05:57 80 09/08/16 04:00 98.0 Intake and Output 09/07/16 09/07/16 09/08/16 15:00 23:00 07:00 Intake Total 1350.333 ml 1959.127 ml 1324.96 ml Output Total 925 ml 835 ml 560 ml Balance 425.333 ml 1124.127 ml 764.96 ml Exam Constitutional: somnolent, medicated for agitation Psych: unable to assess Head: normocephalic Eyes: PERRL ENMT: No mucosa pink and moist Neck: other (trach to vent) Respiratory: crackles/rales (coarse diffuse crackles), diminished breath sounds Cardiovascular: regular rate and rhythm Gastrointestinal: bowel sounds, distended (mildly), firm (mildly) Extremities: edema (in extremities only, slight sheen to both legs) Neurological: (C2 quadriplegic) Results Result Diagram: 09/08/16 0930 09/08/16 0345 Results 24 hrs Laboratory Tests Test 09/07/16 17:25 09/08/16 00:00 09/08/16 03:45 09/08/16 05:49 Bedside Glucose 191 233 H 165 Sodium Level 143 Potassium Level 4.3 Chloride Level 105 Carbon Dioxide Level 25 Anion Gap 17 #H Blood Urea Nitrogen 22 H Creatinine 0.39 L Glucose Level 184 Calcium Level 7.6 L Magnesium Level 1.7 Test 09/08/16 08:00 09/08/16 09:30 09/08/16 10:17 Blood Gas Specimen Source Blood arterial Arterial Blood Date Drawn 09/08/2016 8:40:56 AM Arterial Blood pH (Temp corrected) 7.286 *L Arterial Blood pCO2 (Temp correct) 55.1 H Arterial Blood pO2 (Temp corrected) 143.4 H Arterial Blood HCO3 25.7 Arterial Blood Base Excess -1.5 Arterial Blood Oxygen Saturation 98.5 H Colton Test ACCEPTAB Arterial Blood Gas Puncture Site Right Radial Arterial Blood Carboxyhemoglobin 0.3 Arterial Blood Methemoglobin 0.5 Blood Gas A-a O2 Differential 514.5 H Oxyhemoglobin Percent 97.7 Total Hemoglobin 10.6 L Blood Gas Temperature 37.0 Blood Gas Respiration Rate 24.0 Blood Gas Actual Respiration Rate 24 Blood Gas Modality VENT - AC FiO2 100.0 Blood Gas Tidal Volume 500.0 Blood Gas Low PEEP Setting 5.0 Blood Gas Critical Value Read Back A FABIÁN CAMACHO Blood Gas Notified Whom DT Blood Gas Notified Time 09/08/2016 9:05:55 AM White Blood Count 27.7 H Red Blood Count 3.36 L Hemoglobin 9.1 L Hematocrit 31.2 L Mean Corpuscular Volume 92.9 Mean Corpuscular Hemoglobin 27.1 L Mean Corpuscular Hemoglobin Concent 29.2 L Red Cell Distribution Width 18.4 H Platelet Count 258 Mean Platelet Volume 10.3 Neutrophils % Eosinophils % Neutrophils # Eosinophils # Bedside Glucose 156 Medications Medications Current Medications Ondansetron HCl (Zofran Inj) 4 mg Q6H PRN IV NAUSEA AND/OR VOMITING Last administered on 08/15/16 05:11; Admin Dose 4 MG; Start 07/31/16 at 15:00 Morphine Sulfate (morphine) 2 mg Q4H PRN IV SEVERE PAIN LEVEL 7-10 Last administered on 09/06/16 13:24; Admin Dose 2 MG; Start 07/31/16 at 15:00 Magnesium Hydroxide (Milk Of Mag) 30 ml DAILY PRN PO CONSTIPATION Last administered on 09/03/16 15:46; Admin Dose 30 ML; Start 07/31/16 at 15:00 Sodium Biphosphate/ Sodium Phosphate (Fleet Enema) 133 ml DAILY PRN NV CONSTIPATION; Start 07/31/16 at 15:00 Hydralazine HCl (Apresoline) 10 mg Q6H PRN IV ELEVATED BLOOD PRESSURE; Start at 15:00 Nitroglycerin (Nitroglycerin (Sl Tab) 0.4 Mg) 1 tab Q5M PRN SL ANGINA; Start at 15:00 Miscellaneous Information 1 ea NOTE XX ; Start 07/31/16 at 16:30 Glucose (Glutose) 15 gm Q15M PRN PO DECREASED GLUCOSE; Start 07/31/16 at 16:30 Glucose (Glutose) 22.5 gm Q15M PRN PO DECREASED GLUCOSE; Start 07/31/16 at 16: 30 Dextrose (D50w Syringe) 25 ml Q15M PRN IV DECREASED GLUCOSE; Start 07/31/16 at 16:30 Dextrose (D50w Syringe) 50 ml Q15M PRN IV DECREASED GLUCOSE; Start 07/31/16 at 16:30 Glucagon (Glucagen) 1 mg Q15M PRN IM DECREASED GLUCOSE; Start 07/31/16 at 16:30 Glucose (Glutose) 15 gm Q15M PRN BUCCAL DECREASED GLUCOSE; Start 07/31/16 at 16 :30 Zinc Sulfate (Zinc Sulfate) 220 mg DAILY GTB Last administered on 09/08/16 10: 20; Admin Dose 220 MG; Start 08/03/16 at 11:30 Multivitamins Therapeutic (Theragran) 1 tab DAILY PO Last administered on 10:19; Admin Dose 1 TAB; Start 08/03/16 at 11:30 Ascorbic Acid (Vitamin C) 500 mg BID GTB Last administered on 09/08/16 09:00; Admin Dose 500 MG; Start 08/03/16 at 11:30 Levothyroxine Sodium (Synthroid) 25 mcg DAILY@06 PO Last administered on 05:45; Admin Dose 25 MCG; Start 08/11/16 at 06:00 Paroxetine HCl (Paxil) 10 mg DAILY PO Last administered on 09/08/16 10:19; Admin Dose 10 MG; Start 08/11/16 at 21:00 Insulin Aspart (Novolog Insulin Pen) NOVOLOG *MODERATE* ALGORI... Q6 SC Last administered on 09/08/16 05:50; Admin Dose 2 UNIT; Start 08/13/16 at 00:00 Lactobacillus Acidoph/Bulgaricus (Floranex) 1 tab TID GTB Last administered on 09/08/16 10:19; Admin Dose 1 TAB; Start 08/15/16 at 21:30 Metformin HCl (Glucophage) 500 mg Q12 GTB Last administered on 08/27/16 08:54 ; Admin Dose 500 MG; Start 08/15/16 at 21:30; Status Future Hold Acetaminophen (Tylenol Tab) 650 mg Q6H PRN GTB PAIN AND OR ELEVATED TEMP Last administered on 09/04/16 18:42; Admin Dose 650 MG; Start 08/15/16 at 21:30 Magnesium Oxide (Mag-Ox 400) 400 mg DAILY GTB Last administered on 09/08/16 10: 19; Admin Dose 400 MG; Start 08/20/16 at 09:00 Enoxaparin Sodium (Lovenox) 40 mg DAILY SC Last administered on 09/08/16 10:23 ; Admin Dose 40 MG; Start 08/22/16 at 09:00 Famotidine (Pepcid) 20 mg DAILY GTB Last administered on 09/08/16 10:19; Admin Dose 20 MG; Start 08/22/16 at 09:00 Potassium Chloride (Potassium Chloride Pwd/Soln) 40 meq BID GTB Last administered on 09/08/16 10:19; Admin Dose 40 MEQ; Start 08/23/16 at 21:00 Nystatin 5 ml 5 ml QID PO Last administered on 09/08/16 10:20; Admin Dose 5 ML ; Start 08/25/16 at 17:00 Norepinephrine/ Dextrose (Levophed/D5W) 500 ml @ 1.87 mls/hr TITRATE IV Last administered on 09/05/16 22:31; Admin Dose 16.87 MLS/HR; Start 08/28/16 at 09:00 Metronidazole 500 mg 500 mg Q8 PO Last administered on 09/08/16 05:45; Admin Dose 500 MG; Start 08/29/16 at 14:00 Colistimethate Sodium 75 mg/ Sodium Chloride 100 ml @ 200 mls/hr Q12 IVPB Last administered on 09/08/16 10:20; Admin Dose 200 MLS/HR; Start 08/31/16 at 21 :00 Linezolid (Zyvox 600mg/D5W (Pmx)) 300 ml @ 300 mls/hr Q12 IVPB Last administered on 09/07/16 21:27; Admin Dose 300 MLS/HR; Start 08/31/16 at 21:00 Alprazolam 0.25 mg 0.25 mg Q6H PRN GTB ANXIETY Last administered on 09/08/16 04 :10; Admin Dose 0.25 MG; Start 09/02/16 at 16:00 Sodium Chloride (NS) 1,000 ml @ 100 mls/hr Q10H IV Last administered on 04:11; Admin Dose 100 MLS/HR; Start 09/04/16 at 12:00 Lorazepam (Ativan) 0.5 mg Q6H PRN IV ANXIETY Last administered on 09/08/16 09: 52; Admin Dose 0.5 MG; Start 09/05/16 at 10:30 Hydrocortisone 100 mg 100 mg Q8 IV Last administered on 09/08/16 05:45; Admin Dose 100 MG; Start 09/05/16 at 14:00 Caspofungin/ Sodium Chloride (Cancidas/NS) 250 ml @ 250 mls/hr Q24H IVPB Last administered on 09/07/16 17:26; Admin Dose 250 MLS/HR; Start 09/06/16 at 15:30 Insulin Glargine 15 unit 15 unit DAILY SC Last administered on 09/08/16 10:22; Admin Dose 15 UNIT; Start 09/06/16 at 10:30 Phenylephrine HCl/ Sodium Chloride (Jabari-Syneph/NS) 500 ml @ 18.75 mls/ hr TITRATE IV Last administered on 09/06/16 19:15; Admin Dose 18.75 MLS/HR; Start 09/06/16 at 11:00 Sodium Hypochlorite (Dakin'S (Dilute 1/40%)) 1 applic QHS IRR Last administered on 09/07/16 20:55; Admin Dose 1 APPLIC; Start 09/07/16 at 21:00 Sodium Hypochlorite (Dakin'S (1/4 Strength)) 1 applic QHS IRR Last administered on 09/07/16 20:31; Admin Dose 1 APPLIC; Start 09/07/16 at 21:00 Procedures Procedures PROCEDURE: XR Chest. CLINICAL INDICATION: Shortness of breath. TECHNIQUE: Single frontal view. COMPARISON: 09/06/2016. FINDINGS: The tracheostomy tube and implanted port central venous catheter entering via the left internal jugular vein remain in satisfactory position. Consolidation in the right upper lobe and patchy consolidation bilaterally in the mid and lower lung zones is unchanged consistent with multifocal pneumonia. The heart is enlarged. There is no pneumothorax. There are small bilateral pleural effusions. IMPRESSION: 1. No change from 09/06/2016. RPTAT: QQ .Bryce Lee MD, MD Date Time Electronically viewed and signed by .Bryce Lee MD, MD on 09/07/2016 09:31 .R/ CC: ABI FLOR MD, [facility] ALDO BRADEN Sep 08, 2016 11:20
[2016-09-08] MEDS: LINEZOLID 600 MG/D5W (PMX) 300 ML IVPB SCH ×2 (11:36→21:26)
--- NOTE | 2016-09-08 11:41 | RADRPT ---
PROCEDURE: XR Chest. CLINICAL INDICATION: Shortness of breath. TECHNIQUE: Single frontal view. COMPARISON: 09/07/2016. FINDINGS: The tracheostomy tube and left internal jugular vein central venous catheter remain in satisfactory position. There is dense consolidation in the right upper lobe, patchy consolidation in the right m id and lower lung zones and in the left mid and lower lung zones consistent with bilateral pneumonia . This is unchanged on the right and worse on the left. The heart is enlarged. There are small bilateral pleural effusions. There is no pneumothorax. IMPRESSION: 1. Worse appearance of the left lung. 2. No other change from 09/07/2016. RPTAT: QQ .Bryce Lee MD, MD Date Time Electronically viewed and signed by .Bryce Lee MD, MD on 09/08/2016 11:40 .R/
[2016-09-08] MEDS ORDERED: FUROSEMIDE 40 MG INJ IV ONE (12:00)
[2016-09-08] MEDS ORDERED: FUROSEMIDE 40 MG INJ IV SCH (12:00)
--- NOTE | 2016-09-08 13:23 | PN ---
DATE: 09/08/2016 CARDIOLOGY FOLLOWUP PROGRESS NOTE SUBJECTIVE: Discussed with the staff. Rhythm strip was reviewed. Episodes of CVA, hypoxemia overn ight multiple times ____. He also had multiple episodes of intermittent junctional bradycardia whic h was associated with severe hypoxemia as well, and patient felt like he was going to pass out. Cur rently, he remains in sinus tachycardia, still hypotensive on Jabari-Synephrine drip. ____ at this poi nt. MEDICATIONS: Reviewed as per medication reconciliation, personally reviewed. PHYSICAL EXAMINATION: VITAL SIGNS: Temperature 96, heart rate of 130, blood pressure of 76/55, respiratory rate of 24, sa turating 100%. HEENT: Normocephalic, atraumatic. NECK: Status post tracheostomy, on the vent. CARDIOVASCULAR: Tachycardic. Systolic murmur. PULMONARY: Mild rhonchi, diffuse. GASTROINTESTINAL: Soft, status post PEG. EXTREMITIES: With ____ lower extremity edema. NEUROLOGIC: Lethargic. LABORATORY: WBC 27.7, hemoglobin 9.1, platelets of 258. Sodium of 143, potassium of 4.3, BUN of 22 , creatinine 0.39, glucose 184. Chest x-ray shows worse appearance of the left lung. There is patc hy consolidation in the right mid and lower lung zone and the left mid and left lower zone, consiste nt with bilateral pneumonia. ASSESSMENT AND PLAN: 1. Severe septic shock. 2. Pneumonia. 3. Hypoxemic respiratory failure. 4. History of quadriplegia secondary to spinal fracture. 5. Fluid overload, congestive heart failure, secondary to diastolic dysfunction and fluid overload. 6. Clostridium difficile. 7. Arrhythmia with sinus tachycardia, intermittent marked sinus bradycardia, probably related to se emi hypoxemia. 8. Electrolyte abnormalities. 9. Thyroid disorder on Synthroid. 10. Anemia. 11. Diabetes. RECOMMENDATIONS: We will continue with supportive care. ICU care will be continued. Pressors as t olerated and as needed will be continued. Monitor closely on telemetry. Electrolytes will be cor rected. ____ will be continued. Antibiotic as per ID. Diabetic management will be continued. More than 40 minutes of critical care time was spent in management and treating this patient excludi ng any procedures. Dictated By: JOSE MANUEL OCAMPO MD AV/SCOTTIE Conf#: [id number] DID#: [id number] CC: ALDO BRADEN MD;*[facility]*
--- NOTE | 2016-09-08 15:14 | CONS ---
Date/Time of Note Date/Time of Note DATE: 09/08/16 TIME: 15:09 Consult Date/Type/Reason Admit Date/Time Jul 31, 2016 at 14:20 Initial Consult Date Type of Consultation: Pulm/CCM Subjective Increasing FiO2 requirements. Nursing and RT unable to advance the suction catheter. Objective Vital Signs Date Time Temp Pulse Resp B/P Pulse Ox O2 Delivery O2 Flow Rate FiO2 09/08/16 14:45 120 24 87/57 100 09/08/16 14:00 Mechanical Ventilator 09/08/16 12:00 100 09/08/16 12:00 96.0 Intake and Output 09/07/16 09/07/16 09/08/16 15:00 23:00 07:00 Intake Total 1350.333 ml 1959.127 ml 1324.96 ml Output Total 925 ml 835 ml 560 ml Balance 425.333 ml 1124.127 ml 764.96 ml Exam HEENT: Pupils equal, round, and reactive to light. Tracheostomy is a proximal XLT 7.0 ID CARDIAC: Tachy, S1 and S2 CHEST: Diminished air entry bilaterally and rhonchi ABDOMEN: Mildly distended. No bowel sounds. EXTREMITIES: No cyanosis, clubbing edema +1 Results/Medications Result Diagram: 09/08/16 0930 09/08/16 0345 Results 24 hrs Laboratory Tests Test 09/07/16 17:25 09/08/16 00:00 09/08/16 03:45 09/08/16 05:49 Bedside Glucose 191 233 H 165 Sodium Level 143 Potassium Level 4.3 Chloride Level 105 Carbon Dioxide Level 25 Anion Gap 17 #H Blood Urea Nitrogen 22 H Creatinine 0.39 L Glucose Level 184 Calcium Level 7.6 L Magnesium Level 1.7 Test 09/08/16 08:00 09/08/16 09:30 09/08/16 10:17 09/08/16 12:11 Blood Gas Specimen Source Blood arterial Arterial Blood Date Drawn 09/08/2016 8:40:56 AM Arterial Blood pH (Temp corrected) 7.286 *L Arterial Blood pCO2 (Temp correct) 55.1 H Arterial Blood pO2 (Temp corrected) 143.4 H Arterial Blood HCO3 25.7 Arterial Blood Base Excess -1.5 Arterial Blood Oxygen Saturation 98.5 H Colton Test ACCEPTAB Arterial Blood Gas Puncture Site Right Radial Arterial Blood Carboxyhemoglobin 0.3 Arterial Blood Methemoglobin 0.5 Blood Gas A-a O2 Differential 514.5 H Oxyhemoglobin Percent 97.7 Total Hemoglobin 10.6 L Blood Gas Temperature 37.0 Blood Gas Respiration Rate 24.0 Blood Gas Actual Respiration Rate 24 Blood Gas Modality VENT - AC FiO2 100.0 Blood Gas Tidal Volume 500.0 Blood Gas Low PEEP Setting 5.0 Blood Gas Critical Value Read Back A FABIÁN RN Blood Gas Notified Whom DT Blood Gas Notified Time 09/08/2016 9:05:55 AM White Blood Count 27.7 H Red Blood Count 3.36 L Hemoglobin 9.1 L Hematocrit 31.2 L Mean Corpuscular Volume 92.9 Mean Corpuscular Hemoglobin 27.1 L Mean Corpuscular Hemoglobin Concent 29.2 L Red Cell Distribution Width 18.4 H Platelet Count 258 Mean Platelet Volume 10.3 Neutrophils % 81.0 H Band Neutrophils % 15.0 H Lymphocytes % 2.0 L Monocytes % 2.0 Eosinophils % Neutrophils # 22.4 H Lymphocytes # 0.6 L Monocytes # 0.6 Eosinophils # Platelet Estimate PLT APPEAR ADEQUATE Large Platelets OCCASIONAL Polychromasia 1+ Bedside Glucose 156 218 Medications Current Medications Ondansetron HCl (Zofran Inj) 4 mg Q6H PRN IV NAUSEA AND/OR VOMITING Last administered on 08/15/16 05:11; Admin Dose 4 MG; Start 07/31/16 at 15:00 Morphine Sulfate (morphine) 2 mg Q4H PRN IV SEVERE PAIN LEVEL 7-10 Last administered on 09/06/16 13:24; Admin Dose 2 MG; Start 07/31/16 at 15:00 Magnesium Hydroxide (Milk Of Mag) 30 ml DAILY PRN PO CONSTIPATION Last administered on 09/03/16 15:46; Admin Dose 30 ML; Start 07/31/16 at 15:00 Sodium Biphosphate/ Sodium Phosphate (Fleet Enema) 133 ml DAILY PRN [place] CONSTIPATION; Start 07/31/16 at 15:00 Hydralazine HCl (Apresoline) 10 mg Q6H PRN IV ELEVATED BLOOD PRESSURE; Start at 15:00 Nitroglycerin (Nitroglycerin (Sl Tab) 0.4 Mg) 1 tab Q5M PRN SL ANGINA; Start at 15:00 Miscellaneous Information 1 ea NOTE XX ; Start 07/31/16 at 16:30 Glucose (Glutose) 15 gm Q15M PRN PO DECREASED GLUCOSE; Start 07/31/16 at 16:30 Glucose (Glutose) 22.5 gm Q15M PRN PO DECREASED GLUCOSE; Start 07/31/16 at 16: 30 Dextrose (D50w Syringe) 25 ml Q15M PRN IV DECREASED GLUCOSE; Start 07/31/16 at 16:30 Dextrose (D50w Syringe) 50 ml Q15M PRN IV DECREASED GLUCOSE; Start 07/31/16 at 16:30 Glucagon (Glucagen) 1 mg Q15M PRN IM DECREASED GLUCOSE; Start 07/31/16 at 16:30 Glucose (Glutose) 15 gm Q15M PRN BUCCAL DECREASED GLUCOSE; Start 07/31/16 at 16 :30 Zinc Sulfate (Zinc Sulfate) 220 mg DAILY GTB Last administered on 09/08/16 10: 20; Admin Dose 220 MG; Start 08/03/16 at 11:30 Multivitamins Therapeutic (Theragran) 1 tab DAILY PO Last administered on 10:19; Admin Dose 1 TAB; Start 08/03/16 at 11:30 Ascorbic Acid (Vitamin C) 500 mg BID GTB Last administered on 09/08/16 09:00; Admin Dose 500 MG; Start 08/03/16 at 11:30 Levothyroxine Sodium (Synthroid) 25 mcg DAILY@06 PO Last administered on 05:45; Admin Dose 25 MCG; Start 08/11/16 at 06:00 Paroxetine HCl (Paxil) 10 mg DAILY PO Last administered on 09/08/16 10:19; Admin Dose 10 MG; Start 08/11/16 at 21:00 Insulin Aspart (Novolog Insulin Pen) NOVOLOG *MODERATE* ALGORI... Q6 SC Last administered on 09/08/16 12:22; Admin Dose 4 UNIT; Start 08/13/16 at 00:00 Lactobacillus Acidoph/Bulgaricus (Floranex) 1 tab TID GTB Last administered on 09/08/16 13:17; Admin Dose 1 TAB; Start 08/15/16 at 21:30 Metformin HCl (Glucophage) 500 mg Q12 GTB Last administered on 08/27/16 08:54 ; Admin Dose 500 MG; Start 08/15/16 at 21:30; Status Future Hold Acetaminophen (Tylenol Tab) 650 mg Q6H PRN GTB PAIN AND OR ELEVATED TEMP Last administered on 09/04/16 18:42; Admin Dose 650 MG; Start 08/15/16 at 21:30 Magnesium Oxide (Mag-Ox 400) 400 mg DAILY GTB Last administered on 09/08/16 10: 19; Admin Dose 400 MG; Start 08/20/16 at 09:00 Enoxaparin Sodium (Lovenox) 40 mg DAILY SC Last administered on 09/08/16 10:23 ; Admin Dose 40 MG; Start 08/22/16 at 09:00 Famotidine (Pepcid) 20 mg DAILY GTB Last administered on 09/08/16 10:19; Admin Dose 20 MG; Start 08/22/16 at 09:00 Potassium Chloride (Potassium Chloride Pwd/Soln) 40 meq BID GTB Last administered on 09/08/16 10:19; Admin Dose 40 MEQ; Start 08/23/16 at 21:00 Nystatin 5 ml 5 ml QID PO Last administered on 09/08/16 10:20; Admin Dose 5 ML ; Start 08/25/16 at 17:00 Norepinephrine/ Dextrose (Levophed/D5W) 500 ml @ 1.87 mls/hr TITRATE IV Last administered on 09/05/16 22:31; Admin Dose 16.87 MLS/HR; Start 08/28/16 at 09:00 Metronidazole 500 mg 500 mg Q8 PO Last administered on 09/08/16 13:17; Admin Dose 500 MG; Start 08/29/16 at 14:00 Colistimethate Sodium 75 mg/ Sodium Chloride 100 ml @ 200 mls/hr Q12 IVPB Last administered on 09/08/16 10:20; Admin Dose 200 MLS/HR; Start 08/31/16 at 21 :00 Linezolid (Zyvox 600mg/D5W (Pmx)) 300 ml @ 300 mls/hr Q12 IVPB Last administered on 09/08/16 11:36; Admin Dose 300 MLS/HR; Start 08/31/16 at 21:00 Alprazolam 0.25 mg 0.25 mg Q6H PRN GTB ANXIETY Last administered on 09/08/16 04 :10; Admin Dose 0.25 MG; Start 09/02/16 at 16:00 Sodium Chloride (NS) 1,000 ml @ 100 mls/hr Q10H IV Last administered on 13:17; Admin Dose 100 MLS/HR; Start 09/04/16 at 12:00 Lorazepam (Ativan) 0.5 mg Q6H PRN IV ANXIETY Last administered on 09/08/16 09: 52; Admin Dose 0.5 MG; Start 09/05/16 at 10:30 Hydrocortisone 100 mg 100 mg Q8 IV Last administered on 09/08/16 13:17; Admin Dose 100 MG; Start 09/05/16 at 14:00 Caspofungin/ Sodium Chloride (Cancidas/NS) 250 ml @ 250 mls/hr Q24H IVPB Last administered on 09/07/16 17:26; Admin Dose 250 MLS/HR; Start 09/06/16 at 15:30 Insulin Glargine 15 unit 15 unit DAILY SC Last administered on 09/08/16 10:22; Admin Dose 15 UNIT; Start 09/06/16 at 10:30 Phenylephrine HCl/ Sodium Chloride (Jabari-Syneph/NS) 500 ml @ 18.75 mls/ hr TITRATE IV Last administered on 09/06/16 19:15; Admin Dose 18.75 MLS/HR; Start 09/06/16 at 11:00 Sodium Hypochlorite (Dakin'S (Dilute 1/40%)) 1 applic QHS IRR Last administered on 09/07/16 20:55; Admin Dose 1 APPLIC; Start 09/07/16 at 21:00 Sodium Hypochlorite (Dakin'S (1/4 Strength)) 1 applic QHS IRR Last administered on 09/07/16 20:31; Admin Dose 1 APPLIC; Start 09/07/16 at 21:00 Assessment/Plan Additional Assessment/Plan IMP: 1. Vent dependent respiratory failure: CT chest shows trach hitting the anterior wall of the trachea--> thereby not allowing suction cath to pass. 2. Refractory septic shock likely polymicrobial possible component of adrenal insufficiency hemodynamically improved since addition of hydrocortisone 3. Significant anemia likely of chronic disease 4. Dysphagia with G-tube 5. History of quadriplegia 6. Status post Septic shock possible adrenal insufficiency and stress dose steroids with improved hemodynamics status 7. Likely underlying lymphoproliferative process given persistent leukocytosis RECS: 1. Trach needs to be changed to distal XLT 2. ENT to eval the anterior tracheal stoma as the balloon has caused significant dilation 3. Pressor support 4. CPT suctioning 35 min cc time TRENT VEGA MD Sep 08, 2016 15:14
[2016-09-08] MEDS: CASPOFUNGIN 50 MG in SOD CHLORIDE 0.9% 250 ML IVPB SCH (16:10)
--- NOTE | 2016-09-08 16:55 | SP ---
DATE OF PROCEDURE: PROCEDURE: Exchange of a tracheostomy tube. INDICATION: Current tracheostomy tube is a Shiley XLT proximal which appears to be hitting the ante rior wall of the trachea thereby not allowing the suction catheter to pass thereby not allowing for appropriate suctioning of the patient. DESCRIPTION OF PROCEDURE: Patient was preoxygenated on 100% FIO2 which he had been on prior to this . A distal XLT trach with a 6.0 inner diameter was advanced into the stoma once the existing trach was removed. Once the trach was placed, the inner obturator was removed. and the inner catheter was inserted. The patient was reconnected to the ventilator. After exchange of the tracheostomy, the suction catheter was now easily advanced and patient noted significant improvement in his gas exchan ge. COMPLICATIONS: None. Dictated By: TRENT ANNE/SCOTTIE Conf#: [id number] DID#: [id number]
--- NOTE | 2016-09-08 17:17 | CONS ---
Date/Time of Note Date/Time of Note DATE: 09/08/16 TIME: 17:09 Assessment/Plan Assessment/Plan Chief Complaint/Hosp Course ID PROGRESS NOTE TOTAL ABX DAY =>Week #5 ABX 1. Cancidas. 2. Colistin. 3. Zyvox. 4. Tobramycin INH 5. Flagyl. 24H INTERVAL SUMMARY * Awake, alert, progressive debility, appears weak,frail, anxious, mouthing words * Per RN and notes -- had a difficult night, required much suction, tachycardia * TRANSFER PENDING: The patient is to be transferred to his capitated facility , [facility], for continued management. PHYSICAL EXAMINATION: GENERAL: 46 yo M HEENT/Neck: Trach C-Spine collar NCHEST: Equal chest rise bilaterally, without dyspnea on observation HEART: Pulse RRR ABDOMEN: Soft EXTREMITIES: Warm SKIN: See hard chart skin assessment: multiple STG IV Decubs ID ASSESSMENT: 46 yo M w/C-spine injury w/paraplegia->s/p spinal surgery admit with: 1. SIRS w/on-on low grade fevers + rising WBC -> Multifactorial due to wounds, invasives, reactive * s/p Sepsis on admission w/ fever, hypotension and tachycardia => multifactorial * BCx (-) to date * Afebrile today w/(+)low grade temps on/off ~100.+ * CT C-spine 08/12/16: No evidence spinal abscess/Infx * WBC Scan 08/13/16: No evidence infection 2. HCAP broncho-PNA * s/p Bronch 08/23/16 =? BAL (+)PSAR * CT: Scattered bronchial wall thickening, centrilobular nodules, tree in bud nodularity, and bronchocentric consolidation consistent with multifocal bronchitis/bronchiolitis/bronchopneumonia. Areas of bronchocentric scarring is also seen throughout the lungs suggestive of chronic recurrent infections. 3. Neurogenic bladder w/indwelling FC 4. Recurrent UTI's = CRI w/justification to keep FC due to incontinence wounds, concern urinary retention * Several small nonobstructing bilateral renal calculi. * Diffuse bladder wall thickening 5. Multiple infx decubs: Buttock/Back x 4 = STG IV / bilateral heels WOUND CULTURE Final Organism 1 KLEB PNEUMONIAE CARBAPENEMASE QUANTITY 3+ . MULTI DRUG RESISTANT ORGANISM Organism 2 ACINETOBACTER BAUMANNII QUANTITY 2+ Organism 3 VANCO RESISTANT ENTEROCOCCUS QUANTITY ISOLATED FROM BROTH ONLY . MULTI DRUG RESISTANT ORGANISM Organism 4 PROTEUS MIRABILIS QUANTITY SCANT GROWTH 6. Diarrhea = TF + ABX associated 7. Poor wound healing / protein sawyer malnutrition * On MVI, VitC, Zinc supplements 8. DMT2 ?Peripheral neuropathy 9. Depression=> situational related to current illness * rn staff alerted patient at times declines wound care, turning, ?if due to frequent presence of female visitors in the room? * Encourage patient importance of turning and wound care compliance w/nursing staff (-)MRSA Nares INVASIVES: Trach/Peg/FC/L-Chest Port/C-spine hardware ABX ALLERGY: KNDA CURRENT ABX: Week #5 ABX => Zyvox, Colistin IV, Cancidas, Flagyl, Tobra INH ID RECOMMENDATIONS: 1. Continue current ABX * WBC persistently elevated = partial IV steroids demargination 2. Blood cx have remained (-) 3. Diarrhea contaminating wound = Needs diverting colostomy 4. Per notes: Not a good candidate for wound dbride due to concern would lead to chronic non-healing wound 5. TRANSFER PENDING: [facility], for continued management. . . . Problems: Consultation Date/Type/Reason Admit Date/Time Jul 31, 2016 at 14:20 Initial Consult Date 08/02/16 Type of Consultation: ID Exam/Review of Systems Vital Signs Vitals Vital Signs Date Time Temp Pulse Resp B/P Pulse Ox O2 Delivery O2 Flow Rate FiO2 09/08/16 16:00 119 09/08/16 15:30 24 91/64 100 09/08/16 15:20 100 09/08/16 15:00 Mechanical Ventilator 09/08/16 12:00 96.0 Intake and Output 09/07/16 09/07/16 09/08/16 15:00 23:00 07:00 Intake Total 1350.333 ml 1959.127 ml 1364.96 ml Output Total 925 ml 835 ml 560 ml Balance 425.333 ml 1124.127 ml 804.96 ml Results Result Diagram: 09/08/16 0930 09/08/16 0345 Results 24 hrs Laboratory Tests Test 09/07/16 17:25 09/08/16 00:00 09/08/16 03:45 09/08/16 05:49 Bedside Glucose 191 233 H 165 Sodium Level 143 Potassium Level 4.3 Chloride Level 105 Carbon Dioxide Level 25 Anion Gap 17 #H Blood Urea Nitrogen 22 H Creatinine 0.39 L Glucose Level 184 Calcium Level 7.6 L Magnesium Level 1.7 Test 09/08/16 08:00 09/08/16 09:30 09/08/16 10:17 09/08/16 12:11 Blood Gas Specimen Source Blood arterial Arterial Blood Date Drawn 09/08/2016 8:40:56 AM Arterial Blood pH (Temp corrected) 7.286 *L Arterial Blood pCO2 (Temp correct) 55.1 H Arterial Blood pO2 (Temp corrected) 143.4 H Arterial Blood HCO3 25.7 Arterial Blood Base Excess -1.5 Arterial Blood Oxygen Saturation 98.5 H Colton Test ACCEPTAB Arterial Blood Gas Puncture Site Right Radial Arterial Blood Carboxyhemoglobin 0.3 Arterial Blood Methemoglobin 0.5 Blood Gas A-a O2 Differential 514.5 H Oxyhemoglobin Percent 97.7 Total Hemoglobin 10.6 L Blood Gas Temperature 37.0 Blood Gas Respiration Rate 24.0 Blood Gas Actual Respiration Rate 24 Blood Gas Modality VENT - AC FiO2 100.0 Blood Gas Tidal Volume 500.0 Blood Gas Low PEEP Setting 5.0 Blood Gas Critical Value Read Back A FABIÁN RN Blood Gas Notified Whom DT Blood Gas Notified Time 09/08/2016 9:05:55 AM White Blood Count 27.7 H Red Blood Count 3.36 L Hemoglobin 9.1 L Hematocrit 31.2 L Mean Corpuscular Volume 92.9 Mean Corpuscular Hemoglobin 27.1 L Mean Corpuscular Hemoglobin Concent 29.2 L Red Cell Distribution Width 18.4 H Platelet Count 258 Mean Platelet Volume 10.3 Neutrophils % 81.0 H Band Neutrophils % 15.0 H Lymphocytes % 2.0 L Monocytes % 2.0 Eosinophils % Neutrophils # 22.4 H Lymphocytes # 0.6 L Monocytes # 0.6 Eosinophils # Platelet Estimate PLT APPEAR ADEQUATE Large Platelets OCCASIONAL Polychromasia 1+ Bedside Glucose 156 218 Medications Medications Current Medications Ondansetron HCl (Zofran Inj) 4 mg Q6H PRN IV NAUSEA AND/OR VOMITING Last administered on 08/15/16 05:11; Admin Dose 4 MG; Start 07/31/16 at 15:00 Morphine Sulfate (morphine) 2 mg Q4H PRN IV SEVERE PAIN LEVEL 7-10 Last administered on 09/06/16 13:24; Admin Dose 2 MG; Start 07/31/16 at 15:00 Magnesium Hydroxide (Milk Of Mag) 30 ml DAILY PRN PO CONSTIPATION Last administered on 09/03/16 15:46; Admin Dose 30 ML; Start 07/31/16 at 15:00 Sodium Biphosphate/ Sodium Phosphate (Fleet Enema) 133 ml DAILY PRN [place] CONSTIPATION; Start 07/31/16 at 15:00 Hydralazine HCl (Apresoline) 10 mg Q6H PRN IV ELEVATED BLOOD PRESSURE; Start at 15:00 Nitroglycerin (Nitroglycerin (Sl Tab) 0.4 Mg) 1 tab Q5M PRN SL ANGINA; Start at 15:00 Miscellaneous Information 1 ea NOTE XX ; Start 07/31/16 at 16:30 Glucose (Glutose) 15 gm Q15M PRN PO DECREASED GLUCOSE; Start 07/31/16 at 16:30 Glucose (Glutose) 22.5 gm Q15M PRN PO DECREASED GLUCOSE; Start 07/31/16 at 16: 30 Dextrose (D50w Syringe) 25 ml Q15M PRN IV DECREASED GLUCOSE; Start 07/31/16 at 16:30 Dextrose (D50w Syringe) 50 ml Q15M PRN IV DECREASED GLUCOSE; Start 07/31/16 at 16:30 Glucagon (Glucagen) 1 mg Q15M PRN IM DECREASED GLUCOSE; Start 07/31/16 at 16:30 Glucose (Glutose) 15 gm Q15M PRN BUCCAL DECREASED GLUCOSE; Start 07/31/16 at 16 :30 Zinc Sulfate (Zinc Sulfate) 220 mg DAILY GTB Last administered on 09/08/16 10: 20; Admin Dose 220 MG; Start 08/03/16 at 11:30 Multivitamins Therapeutic (Theragran) 1 tab DAILY PO Last administered on 10:19; Admin Dose 1 TAB; Start 08/03/16 at 11:30 Ascorbic Acid (Vitamin C) 500 mg BID GTB Last administered on 09/08/16 09:00; Admin Dose 500 MG; Start 08/03/16 at 11:30 Levothyroxine Sodium (Synthroid) 25 mcg DAILY@06 PO Last administered on 05:45; Admin Dose 25 MCG; Start 08/11/16 at 06:00 Paroxetine HCl (Paxil) 10 mg DAILY PO Last administered on 09/08/16 10:19; Admin Dose 10 MG; Start 08/11/16 at 21:00 Insulin Aspart (Novolog Insulin Pen) NOVOLOG *MODERATE* ALGORI... Q6 SC Last administered on 09/08/16 12:22; Admin Dose 4 UNIT; Start 08/13/16 at 00:00 Lactobacillus Acidoph/Bulgaricus (Floranex) 1 tab TID GTB Last administered on 09/08/16 13:17; Admin Dose 1 TAB; Start 08/15/16 at 21:30 Metformin HCl (Glucophage) 500 mg Q12 GTB Last administered on 08/27/16 08:54 ; Admin Dose 500 MG; Start 08/15/16 at 21:30; Status Future Hold Acetaminophen (Tylenol Tab) 650 mg Q6H PRN GTB PAIN AND OR ELEVATED TEMP Last administered on 09/04/16 18:42; Admin Dose 650 MG; Start 08/15/16 at 21:30 Magnesium Oxide (Mag-Ox 400) 400 mg DAILY GTB Last administered on 09/08/16 10: 19; Admin Dose 400 MG; Start 08/20/16 at 09:00 Enoxaparin Sodium (Lovenox) 40 mg DAILY SC Last administered on 09/08/16 10:23 ; Admin Dose 40 MG; Start 08/22/16 at 09:00 Famotidine (Pepcid) 20 mg DAILY GTB Last administered on 09/08/16 10:19; Admin Dose 20 MG; Start 08/22/16 at 09:00 Potassium Chloride (Potassium Chloride Pwd/Soln) 40 meq BID GTB Last administered on 09/08/16 10:19; Admin Dose 40 MEQ; Start 08/23/16 at 21:00 Nystatin 5 ml 5 ml QID PO Last administered on 09/08/16 10:20; Admin Dose 5 ML ; Start 08/25/16 at 17:00 Norepinephrine/ Dextrose (Levophed/D5W) 500 ml @ 1.87 mls/hr TITRATE IV Last administered on 09/05/16 22:31; Admin Dose 16.87 MLS/HR; Start 08/28/16 at 09:00 Metronidazole 500 mg 500 mg Q8 PO Last administered on 09/08/16 13:17; Admin Dose 500 MG; Start 08/29/16 at 14:00 Colistimethate Sodium 75 mg/ Sodium Chloride 100 ml @ 200 mls/hr Q12 IVPB Last administered on 09/08/16 10:20; Admin Dose 200 MLS/HR; Start 08/31/16 at 21 :00 Linezolid (Zyvox 600mg/D5W (Pmx)) 300 ml @ 300 mls/hr Q12 IVPB Last administered on 09/08/16 11:36; Admin Dose 300 MLS/HR; Start 08/31/16 at 21:00 Alprazolam 0.25 mg 0.25 mg Q6H PRN GTB ANXIETY Last administered on 09/08/16 04 :10; Admin Dose 0.25 MG; Start 09/02/16 at 16:00 Sodium Chloride (NS) 1,000 ml @ 100 mls/hr Q10H IV Last administered on 13:17; Admin Dose 100 MLS/HR; Start 09/04/16 at 12:00 Lorazepam (Ativan) 0.5 mg Q6H PRN IV ANXIETY Last administered on 09/08/16 16: 10; Admin Dose 0.5 MG; Start 09/05/16 at 10:30 Hydrocortisone 100 mg 100 mg Q8 IV Last administered on 09/08/16 13:17; Admin Dose 100 MG; Start 09/05/16 at 14:00 Caspofungin/ Sodium Chloride (Cancidas/NS) 250 ml @ 250 mls/hr Q24H IVPB Last administered on 09/08/16 16:10; Admin Dose 250 MLS/HR; Start 09/06/16 at 15:30 Insulin Glargine 15 unit 15 unit DAILY SC Last administered on 09/08/16 10:22; Admin Dose 15 UNIT; Start 09/06/16 at 10:30 Phenylephrine HCl/ Sodium Chloride (Jabari-Syneph/NS) 500 ml @ 18.75 mls/ hr TITRATE IV Last administered on 09/06/16 19:15; Admin Dose 18.75 MLS/HR; Start 09/06/16 at 11:00 Sodium Hypochlorite (Dakin'S (Dilute 1/40%)) 1 applic QHS IRR Last administered on 09/07/16 20:55; Admin Dose 1 APPLIC; Start 09/07/16 at 21:00 Sodium Hypochlorite (Dakin'S (1/4 Strength)) 1 applic QHS IRR Last administered on 09/07/16 20:31; Admin Dose 1 APPLIC; Start 09/07/16 at 21:00 ELOY PELAEZ NP Sep 08, 2016 17:16
[2016-09-08] MEDS: FUROSEMIDE 40 MG INJ IV SCH (18:14)
[2016-09-08] MEDS: SODIUM HYPOCHLORITE 1/40% 1L IRRIG IRR SCH (20:42)
[2016-09-08] MEDS: SODIUM HYPOCHLORITE 0.125% 473 ML BTL IRR SCH (20:42)
--- NOTE | 2016-09-08 20:48 | PN ---
DATE: 09/08/2016 PALLIATIVE CARE FOLLOWUP NOTE SUBJECTIVE: Mr. Alfaro appears to be somewhat better today and more lucid. He remains critically ill in the intensive care unit on 1 pressor CODE STATUS: CHEMICAL CODES ONLY. OBJECTIVE VITAL SIGNS: Blood pressure 89/62, pulse of 117, respirations of 24, 100% saturation on 100% FiO2. CHEST: Inspiratory and expiratory rhonchi throughout both lung singh. CARDIAC: S1, S2, rapid rate, regular rhythm on examination. NEUROLOGICAL: Oriented. Able to answer simple questions by mouthing his words. LABORATORY TESTS: Have been reviewed in detail. ASSESSMENT AND PLAN: My last conversation with him was that HE AGREED HE IS OKAY WITH JUST CHEMICAL CODE. I had a long discussion with his family members. They do understand that he has a terminal illness and that this may be just one of many recurrent hospitalizations for sepsis syndrome by the complications related C2 quadriplegia. Hopes have been discussed with family members that he does n ot suffer that he has an acceptable quality of care per patient. Patient's fears are that he will d ie in a moribund condition. He made it clear gesturing to me that he is okay without having cardiop ulmonary resuscitation. There are no cultural issues. Communication between myself, the family mem bers and the health care team is very good. All caregiver concerns have been addressed. Patient do es not have pain management issues at this point. Psychological, social, spiritual concerns have be en addressed with family members. Patient's legal surrogate is his brother. CODE STATUS ONCE AGAIN IS CHEMICAL CODE ONLY. There is no post form which will be addressed prior t o patient's discharge from the hospital. Dictated By: MARYSOL BRADFORD MD, LP/SCOTTIE Conf#: [id number] DID#: [id number]
[2016-09-08] MEDS ORDERED: DOPamine-D5W 1.6 MG/ML 250 ML ONE (23:02)
[2016-09-08 23:29] LABS: AADO2 Arterial 520.6 mmHg (7.0-24.0); Allen Test ACCEPTAB; Arterial Base Excess -11.1 mmol/L (-3.0-3); Arterial COHb 0.3 % (0.0-3.0); Arterial Fraction of Oxyhgb 97.2 % (93.0-99.0); Arterial HCO3 18.4 mmol/L (22.0-26.0); Arterial MetHb 0.2 % (0.0-1.5); Arterial Total Hemglobin 11.3 g/dl (12.0-18.0); MODE VENT - AC
[2016-09-08] MEDS ORDERED: DOPamine-D5W 1.6 MG/ML 250 ML IV SCH ×2 (23:30)
[2016-09-08] MEDS: SODIUM BICARBONATE (IV ADD) 100 MEQ in DEXTROSE 5% 1,000 ML IV SCH (23:45)
[2016-09-08] MEDS ORDERED: NA BICARBONATE 8.4% 50 ML SYG ONE (23:57)
--- NOTE | 2016-09-08 23:59 | EN ---
Date/Time of Note Date/Time of Note DATE: 09/08/16 TIME: 23:57 Event Note Medicine Medicine Event Note HYPOTENSION: Received call from JANICE Howell, patient is about to be maxed out on his 3rd pressor, the one I ordered about an hour ago. In the meantime, his ABG came back , and his pH is 7.1. She called Dr. Ragsdale, Deputy K 9 on-call, and he recommended 2 amps Bicarb in a drip and to wait until 8 am. RN called me with the news about his Blood Pressure, and my thought is that he is about to code, and if he codes, he would get a Bicarb push. Therefore, to help his pH sooner and hopefully avoid a code, I have ordered Bicarb, 1 amp push. I am heading to the ICU now to be nearby. BRII DAVIS DO Sep 08, 2016 23:59
[2016-09-09] VITALS (100 sets, daily range): BP systolic 63–128; BP diastolic 44–100; PULSE 105–158; RESP 0–28
[2016-09-09] MEDS ORDERED: NA BICARBONATE 8.4% 50 ML SYG IV ONE
[2016-09-09] MEDS ORDERED: SODIUM BICARBONATE (IV ADD) 100 MEQ in DEXTROSE 5% 1,000 ML IV SCH ×2
[2016-09-09] MEDS: SODIUM BICARBONATE (IV ADD) 100 MEQ in DEXTROSE 5% 1,000 ML IV SCH ×3 (00:10→22:11)
[2016-09-09] MEDS: PHENYLephrine 160 MG in SOD CHLORIDE 0.9% 484 ML IV SCH ×2 (00:34→09:03)
[2016-09-09 00:51] LABS: ADD SCAN DIFF NO
[2016-09-09 00:55] LABS: ABNORMAL IP MESSAGE 1; BASOPHILS % 0.1 % (0.0-2.0); HEMATOCRIT 35.1 % (42.0-52.0); HEMOGLOBIN 10.2 g/dl (14.0-18.0); LYMPHOCYTES # 0.5 10^3/ul (0.8-2.9); LYMPHOCYTES % 1.7 % (15.0-51.0); MEAN CORPUSCULAR HEMOGLOBIN 27.5 pg (29.0-33.0); MEAN CORPUSCULAR HGB CONC 29.1 g/dl (32.0-37.0); MEAN CORPUSCULAR VOLUME 94.6 fl (82.0-101.0); MEAN PLATELET VOLUME 10.5 fl (7.4-10.4); MONOCYTE # 1.4 10^3/ul (0.3-0.9); MONOCYTES % 4.5 % (0.0-11.0); NEUTROPHIL # 28.1 10^3/ul (1.6-7.5); NEUTROPHILS % 92.5 % (39.0-77.0); NUCLEATED RED BLOOD CELLS # 0.1 10^3/ul (0.0-0.0); NUCLEATED RED BLOOD CELLS% 0.4 /100WBC (0.0-0.0); PLATELET COUNT 361 10^3/UL (140-415); RED BLOOD COUNT 3.71 10^6/ul (4.70-6.10); RED CELL DISTRIBUTION WIDTH 18.4 % (11.5-14.5); WHITE BLOOD COUNT 30.4 10^3/ul (4.8-10.8)
[2016-09-09 01:17] LABS: ANION GAP 14 (8-16); BLOOD UREA NITROGEN 24 mg/dl (7-20); CALCIUM 7.4 mg/dl (8.4-10.2); CARBON DIOXIDE 23 mmol/L (21-31); CHLORIDE 105 mmol/L (97-110); CREATININE 0.63 mg/dl (0.61-1.24); GLUCOSE 380 mg/dl (70-220); MAGNESIUM 1.6 mg/dl (1.7-2.5); PHOSPHORUS 4.7 mg/dl (2.5-4.9); POTASSIUM 5.4 mmol/L (3.5-5.1); SODIUM 137 mmol/L (135-144)
[2016-09-09 01:37] LABS: CREATINE KINASE < 20 IU/L (23-200)
[2016-09-09] MEDS ORDERED: MAGNESIUM SULFATE 2 GM/50 ML 50 ML IVPB ONE (02:00)
[2016-09-09] MEDS ORDERED: INSULIN ASPART [NOVOLOG] 3 ML PEN SC ONE ×2 (02:00→06:30)
--- NOTE | 2016-09-09 02:39 | CONS ---
DATE OF ADMISSION: 07/31/2016 DATE OF CONSULTATION: 09/08/2016 TYPE OF CONSULTATION: Ear, nose and throat. REASON FOR CONSULTATION: Evaluation of tracheal stoma. HISTORY OF PRESENT ILLNESS: The patient is a 46-year-old male with a history of C2 quadriplegia who has been admitted for sepsis. The patient was having difficulty with ventilation and evaluated ear lier today by Dr. Noel, who successfully changed the trach to a distal cuffed Shiley XLT tube si ze 6. Once changing the trach, the patient had significantly improved ventilation; however, upon ch anging the trach, Dr. Noel was concerned about the appearance of the anterior tracheal wall and tracheal stoma and ENT was consulted. PAST MEDICAL HISTORY: As above. PAST SURGICAL HISTORY: Tracheostomy, PEG placement. ALLERGIES: NO KNOWN DRUG ALLERGIES. MEDICATIONS: See AUG. SOCIAL HISTORY: Former smoker. Negative for IV drug use. FAMILY HISTORY: Noncontributory. PHYSICAL EXAMINATION: VITAL SIGNS: Blood pressure 89/62, heart rate 118, respiratory rate 24, 100% FIO2 on mechanical di tilation. HEENT: Patient alert, responds. NECK: There is a #[address] I deflated the cuff and removed the tube and evaluated th e trachea stoma. There has been erosion of the inferior aspect of the tracheal stoma and anterior t lukasz wall with good granulation tissue. There is no evidence of crepitus, purulence, or necrotic tissue. Flexible laryngoscope was used to evaluate the remainder of the trachea, which noted some mild mucositis at the region of the cuff; however, no erosion through the mucosa was noted and the r emainder of the trachea appeared clear. The remainder of the ear, nose and throat exam was normal. ASSESSMENT: The patient is a 46-year-old male on chronic ventilation for quadriplegia and respirato ry failure. He does have erosion of the anterior tracheal wall and inferior tracheal stoma from the previous tracheostomy tube. With the new tube in better position, I expect the inferior tracheal s missael and anterior tracheal wall to granulate in since the tissue appears very healthy. As long as t he tube can be maintained without a significant air leak, I see no reason to intervene surgically at this time, However, if an air leak does arise and conservative measures with longer tubes and high er cuff pressures are not successful, then anterior tracheal reconstruction could be performed to re pair the area. However, once again, at this time, I feel that repair by secondary intention will re solve this problem. I am available if further evaluation is necessary or intervention. Thank you for allowing me to participate in the care of this patient. Dictated By: LENORA HOGUE MD, [facility]/SCOTTIE Conf#: [id number] DID#: [id number]
[2016-09-09] MEDS: ALPRAZOLAM 0.25 MG TAB GTB PRN ×3 (03:39→20:14)
[2016-09-09] MEDS: LORAZEPAM 2 MG INJ IV PRN (05:17)
[2016-09-09] MEDS: FUROSEMIDE 40 MG INJ IV SCH (05:19)
[2016-09-09 05:23] LABS: ADD SCAN DIFF NO
[2016-09-09 05:26] LABS: ABNORMAL IP MESSAGE 1; BASOPHILS % 0.1 % (0.0-2.0); HEMATOCRIT 34.4 % (42.0-52.0); LYMPHOCYTES # 0.6 10^3/ul (0.8-2.9); LYMPHOCYTES % 1.9 % (15.0-51.0); MEAN CORPUSCULAR HEMOGLOBIN 27.2 pg (29.0-33.0); MEAN CORPUSCULAR HGB CONC 29.1 g/dl (32.0-37.0); MEAN CORPUSCULAR VOLUME 93.7 fl (82.0-101.0); MEAN PLATELET VOLUME 11.1 fl (7.4-10.4); MONOCYTE # 1.1 10^3/ul (0.3-0.9); NEUTROPHIL # 26.6 10^3/ul (1.6-7.5); NUCLEATED RED BLOOD CELLS # 0.1 10^3/ul (0.0-0.0); NUCLEATED RED BLOOD CELLS% 0.3 /100WBC (0.0-0.0); PLATELET COUNT 324 10^3/UL (140-415); RED BLOOD COUNT 3.67 10^6/ul (4.70-6.10); RED CELL DISTRIBUTION WIDTH 18.5 % (11.5-14.5); WHITE BLOOD COUNT 28.6 10^3/ul (4.8-10.8)
[2016-09-09] MEDS: LEVOTHYROXINE 25 MCG TAB PO SCH (05:35)
[2016-09-09] MEDS: HYDROCORTISONE 100 MG INJ IV SCH ×3 (05:35→22:31)
[2016-09-09] MEDS: metroNIDAZOLE 500 MG TAB PO SCH ×3 (05:35→22:31)
[2016-09-09 05:56] LABS: POTASSIUM 5.2 mmol/L (3.5-5.1)
[2016-09-09 05:58] LABS: CREATININE 0.55 mg/dl (0.61-1.24)
[2016-09-09 05:59] LABS: CALCIUM 7.6 mg/dl (8.4-10.2)
[2016-09-09] MEDS: INSULIN ASPART [NOVOLOG] 3 ML PEN SC SCH ×2 (06:00)
[2016-09-09] MEDS: ALBUTEROL HFA 8 GM INHALER INH SCH ×2 (07:26→15:30)
[2016-09-09] MEDS: ASCORBIC ACID 500 MG TAB GTB SCH ×2 (08:26→20:31)
[2016-09-09] MEDS: PAROXETINE 10 MG TAB PO SCH (08:26)
[2016-09-09] MEDS: MAGNESIUM OXIDE 400 MG TAB GTB SCH (08:26)
[2016-09-09] MEDS: LACTOBACILLUS CHEW TAB GTB SCH ×3 (08:26→20:31)
[2016-09-09] MEDS: ZINC SULFATE 220 MG CAP GTB SCH (08:26)
[2016-09-09] MEDS: FAMOTIDINE 20 MG TAB GTB SCH (08:26)
[2016-09-09] MEDS: MULTIVITAMINS THERAPEUTIC TAB PO SCH (08:26)
[2016-09-09] MEDS: LINEZOLID 600 MG/D5W (PMX) 300 ML IVPB SCH ×2 (08:27→20:31)
[2016-09-09] MEDS: POTASSIUM CHLORIDE 20 MEQ POWDER FOR ORAL SOLN GTB SCH ×2 (08:27→20:31)
[2016-09-09] MEDS: TOBRAMYCIN/0.25NS 300 MG/5 ML INHAL NEB SCH ×2 (08:35→19:25)
[2016-09-09] MEDS: ENOXAPARIN 40 MG/0.4 ML SYG SC SCH (08:42)
[2016-09-09] MEDS: INSULIN GLARGINE [LANtus] 3 ML PEN SC SCH (08:43)
[2016-09-09] MEDS: NYSTATIN SUSP 5 ML CUP PO SCH ×4 (08:45→20:32)
[2016-09-09] MEDS: ACETAMINOPHEN 325 MG TAB GTB PRN (09:01)
--- NOTE | 2016-09-09 09:24 | PN ---
Date/Time of Note Date/Time of Note DATE: 09/09/16 TIME: 09:18 Assessment/Plan VTE Prophylaxis VTE Prophylaxis Intervention: LMWH Lines/Catheters IV [facility] port-a-cath Urinary Cath still in place: Yes Reason Cath still needed: pres ulcer contaminated by urine, skin wounds contaminated by urine Assessment/Plan Assessment/Plan 46-year-old male sent in with fever and diaphoresis with findings of septic shock. 1) Overwhelming Sepsis/shock - sec to HCAP likely + decub ulcer infx's, now with shock - sp bronch/atb's - now on 3 pressors 2) Decubitus wound/ MDR organisms. Diverting colostomy & debridement may not be feasible while on vent. quality of life will not improve post therapy. 3) Quadriplegia 2/2 Ho C2 fracture; poor prognosis; palliative care eval appreciated 4) VDRF; cont vent, f/u pulm rec's 5) Chr CHF/ systolic? - monitor 6) Ho c diff - monitor 7. Malnutrition; cont peg/feeds/free water. 8. Past tobacco - monitor 9. Hypernatremia - resolved now 10. Elevated Ca : resolved 11. Hypothyroidism: on Synthroid 12. Depression: Paxil 13. Chronic Pain 14. Anemia of chronic disease + likely chronic blood loss from severe decubiti : Transfusion PRN 15. Persistent tachycardia 16. Diet controlled DM 2 with Hyperglycemia likely 2/2 dextreose in pressors + Steroids: 17. Tracheostomy problems with stoma erosion: Trach changed 09/08/16 by pulm: expanded stoma to heal by secondary intention per ENT PLAN: * Patient continues to decline * Start insulin drip (CC protocol) for BP control * Continue abx per ID / patient is now on 3 pressors * Continue vent support and mgt per pulm * Continue tube feeds / no evidence of aspiration so far / no significant residuals / closely monitor blood glucose * Continue ICU care and support * Patient is now a chemical code only Critical care time spent with pt care today = 40 min. Spoke with family at bedside in detail Prophylaxis: Pepcid / Lovenox Subjective 24 Hr Interval Summary Free Text/Dictation Patient seen and examined. had issues with hypotension and acidosis overnight Subjective hx not possible: pt non-verbal, pt critical status Exam/Review of Systems Vital Signs Vitals Vital Signs Date Time Temp Pulse Resp B/P Pulse Ox O2 Delivery O2 Flow Rate FiO2 09/09/16 08:15 101.5 117 28 121/97 100 Mechanical Ventilator 09/09/16 08:00 100 Intake and Output 09/08/16 09/08/16 09/09/16 15:00 23:00 07:00 Intake Total 1324.48 ml 1556.06 ml 1309.00 ml Output Total 855 ml 345 ml 625 ml Balance 469.48 ml 1211.06 ml 684.00 ml Exam Constitutional: somnolent, medicated for agitation Psych: unable to assess Head: normocephalic Eyes: PERRL ENMT: No mucosa pink and moist Neck: other (trach to vent) Respiratory: crackles/rales (coarse diffuse crackles), diminished breath sounds Cardiovascular: regular rate and rhythm Gastrointestinal: bowel sounds, distended (mildly), firm (mildly) Extremities: edema (in extremities only, slight sheen to both legs) Neurological: (C2 quadriplegic) Results Result Diagram: 09/09/16 0450 09/09/16 0450 Results 24 hrs Laboratory Tests Test 09/08/16 09:30 09/08/16 10:17 09/08/16 12:11 09/08/16 18:13 White Blood Count 27.7 H Red Blood Count 3.36 L Hemoglobin 9.1 L Hematocrit 31.2 L Mean Corpuscular Volume 92.9 Mean Corpuscular Hemoglobin 27.1 L Mean Corpuscular Hemoglobin Concent 29.2 L Red Cell Distribution Width 18.4 H Platelet Count 258 Mean Platelet Volume 10.3 Neutrophils % 81.0 H Band Neutrophils % 15.0 H Lymphocytes % 2.0 L Monocytes % 2.0 Eosinophils % Neutrophils # 22.4 H Lymphocytes # 0.6 L Monocytes # 0.6 Eosinophils # Platelet Estimate PLT APPEAR ADEQUATE Large Platelets OCCASIONAL Polychromasia 1+ Bedside Glucose 156 218 182 Test 09/08/16 22:32 09/08/16 22:48 09/09/16 00:30 09/09/16 01:59 Blood Gas Specimen Source Blood arterial Arterial Blood Date Drawn 09/08/2016 11:24:24 PM Arterial Blood pH (Temp corrected) 7.119 *L Arterial Blood pCO2 (Temp correct) 57.9 H Arterial Blood pO2 (Temp corrected) 134.5 H Arterial Blood HCO3 18.4 L Arterial Blood Base Excess -11.1 L Arterial Blood Oxygen Saturation 97.7 Colton Test ACCEPTAB Arterial Blood Gas Puncture Site Right Radial Arterial Blood Carboxyhemoglobin 0.3 Arterial Blood Methemoglobin 0.2 Blood Gas A-a O2 Differential 520.6 H Oxyhemoglobin Percent 97.2 Total Hemoglobin 11.3 L Blood Gas Temperature 37.0 Blood Gas Respiration Rate 24.0 Blood Gas Actual Respiration Rate 24 Blood Gas Modality VENT - AC FiO2 100.0 Blood Gas Tidal Volume 500.0 Blood Gas Low PEEP Setting 8.0 Blood Gas Critical Value Read Back CHANTALE CAMACHO Blood Gas Notified Whom Blood Gas Notified Time 09/08/2016 11:29:34 PM Bedside Glucose 180 399 H White Blood Count 30.4 H Red Blood Count 3.71 L Hemoglobin 10.2 L Hematocrit 35.1 L Mean Corpuscular Volume 94.6 Mean Corpuscular Hemoglobin 27.5 L Mean Corpuscular Hemoglobin Concent 29.1 L Red Cell Distribution Width 18.4 H Platelet Count 361 # Mean Platelet Volume 10.5 H Neutrophils % 92.5 H Lymphocytes % 1.7 L Monocytes % 4.5 Eosinophils % 0.0 Basophils % 0.1 Nucleated Red Blood Cells % 0.4 H Neutrophils # 28.1 H Lymphocytes # 0.5 L Monocytes # 1.4 H Eosinophils # 0.0 Basophils # 0.0 Nucleated Red Blood Cells # 0.1 H Sodium Level 137 Potassium Level 5.4 H Chloride Level 105 Carbon Dioxide Level 23 Anion Gap 14 Blood Urea Nitrogen 24 H Creatinine 0.63 Glucose Level 380 #H Calcium Level 7.4 L Phosphorus Level 4.7 Magnesium Level 1.6 L Creatine Kinase < 20 L Creatine Kinase Index Creatinine Kinase MB (Mass) 1.10 Troponin I 0.050 Test 09/09/16 03:21 09/09/16 04:23 09/09/16 04:50 09/09/16 05:40 Bedside Glucose 344 H 336 H 309 H White Blood Count 28.6 H Red Blood Count 3.67 L Hemoglobin 10.0 L Hematocrit 34.4 L Mean Corpuscular Volume 93.7 Mean Corpuscular Hemoglobin 27.2 L Mean Corpuscular Hemoglobin Concent 29.1 L Red Cell Distribution Width 18.5 H Platelet Count 324 Mean Platelet Volume 11.1 H Neutrophils % 93.0 H Lymphocytes % 1.9 L Monocytes % 4.0 Eosinophils % 0.0 Basophils % 0.1 Nucleated Red Blood Cells % 0.3 H Neutrophils # 26.6 H Lymphocytes # 0.6 L Monocytes # 1.1 H Eosinophils # 0.0 Basophils # 0.0 Nucleated Red Blood Cells # 0.1 H Sodium Level 141 Potassium Level 5.2 H Chloride Level 103 Carbon Dioxide Level 24 Anion Gap 19 H Blood Urea Nitrogen 25 H Creatinine 0.55 L Glucose Level 333 H Calcium Level 7.6 L Magnesium Level 2.1 Test 09/09/16 06:44 09/09/16 08:38 Bedside Glucose 299 H 246 H Medications Medications Current Medications Ondansetron HCl (Zofran Inj) 4 mg Q6H PRN IV NAUSEA AND/OR VOMITING Last administered on 08/15/16 05:11; Admin Dose 4 MG; Start 07/31/16 at 15:00 Morphine Sulfate (morphine) 2 mg Q4H PRN IV SEVERE PAIN LEVEL 7-10 Last administered on 09/06/16 13:24; Admin Dose 2 MG; Start 07/31/16 at 15:00 Magnesium Hydroxide (Milk Of Mag) 30 ml DAILY PRN PO CONSTIPATION Last administered on 09/03/16 15:46; Admin Dose 30 ML; Start 07/31/16 at 15:00 Sodium Biphosphate/ Sodium Phosphate (Fleet Enema) 133 ml DAILY PRN [place] CONSTIPATION; Start 07/31/16 at 15:00 Hydralazine HCl (Apresoline) 10 mg Q6H PRN IV ELEVATED BLOOD PRESSURE; Start at 15:00 Nitroglycerin (Nitroglycerin (Sl Tab) 0.4 Mg) 1 tab Q5M PRN SL ANGINA; Start at 15:00 Miscellaneous Information 1 ea NOTE XX ; Start 07/31/16 at 16:30 Glucose (Glutose) 15 gm Q15M PRN PO DECREASED GLUCOSE; Start 07/31/16 at 16:30 Glucose (Glutose) 22.5 gm Q15M PRN PO DECREASED GLUCOSE; Start 07/31/16 at 16: 30 Dextrose (D50w Syringe) 25 ml Q15M PRN IV DECREASED GLUCOSE; Start 07/31/16 at 16:30 Dextrose (D50w Syringe) 50 ml Q15M PRN IV DECREASED GLUCOSE; Start 07/31/16 at 16:30 Glucagon (Glucagen) 1 mg Q15M PRN IM DECREASED GLUCOSE; Start 07/31/16 at 16:30 Glucose (Glutose) 15 gm Q15M PRN BUCCAL DECREASED GLUCOSE; Start 07/31/16 at 16 :30 Zinc Sulfate (Zinc Sulfate) 220 mg DAILY GTB Last administered on 09/09/16 08: 26; Admin Dose 220 MG; Start 08/03/16 at 11:30 Multivitamins Therapeutic (Theragran) 1 tab DAILY PO Last administered on 08:26; Admin Dose 1 TAB; Start 08/03/16 at 11:30 Ascorbic Acid (Vitamin C) 500 mg BID GTB Last administered on 09/09/16 08:26; Admin Dose 500 MG; Start 08/03/16 at 11:30 Levothyroxine Sodium (Synthroid) 25 mcg DAILY@06 PO Last administered on 05:35; Admin Dose 25 MCG; Start 08/11/16 at 06:00 Paroxetine HCl (Paxil) 10 mg DAILY PO Last administered on 09/09/16 08:26; Admin Dose 10 MG; Start 08/11/16 at 21:00 Lactobacillus Acidoph/Bulgaricus (Floranex) 1 tab TID GTB Last administered on 09/09/16 08:26; Admin Dose 1 TAB; Start 08/15/16 at 21:30 Metformin HCl (Glucophage) 500 mg Q12 GTB Last administered on 08/27/16 08:54 ; Admin Dose 500 MG; Start 08/15/16 at 21:30; Status Future Hold Acetaminophen (Tylenol Tab) 650 mg Q6H PRN GTB PAIN AND OR ELEVATED TEMP Last administered on 09/09/16 09:01; Admin Dose 650 MG; Start 08/15/16 at 21:30 Magnesium Oxide (Mag-Ox 400) 400 mg DAILY GTB Last administered on 09/09/16 08: 26; Admin Dose 400 MG; Start 08/20/16 at 09:00 Enoxaparin Sodium (Lovenox) 40 mg DAILY SC Last administered on 09/09/16 08:42 ; Admin Dose 40 MG; Start 08/22/16 at 09:00 Famotidine (Pepcid) 20 mg DAILY GTB Last administered on 09/09/16 08:26; Admin Dose 20 MG; Start 08/22/16 at 09:00 Potassium Chloride (Potassium Chloride Pwd/Soln) 40 meq BID GTB Last administered on 09/08/16 20:43; Admin Dose 40 MEQ; Start 08/23/16 at 21:00 Nystatin 5 ml 5 ml QID PO Last administered on 09/09/16 08:45; Admin Dose 5 ML ; Start 08/25/16 at 17:00 Norepinephrine/ Dextrose (Levophed/D5W) 500 ml @ 1.87 mls/hr TITRATE IV Last administered on 09/08/16 21:45; Admin Dose 1.87 MLS/HR; Start 08/28/16 at 09:00 Metronidazole 500 mg 500 mg Q8 PO Last administered on 09/09/16 05:35; Admin Dose 500 MG; Start 08/29/16 at 14:00 Colistimethate Sodium 75 mg/ Sodium Chloride 100 ml @ 200 mls/hr Q12 IVPB Last administered on 09/08/16 20:41; Admin Dose 200 MLS/HR; Start 08/31/16 at 21 :00 Linezolid (Zyvox 600mg/D5W (Pmx)) 300 ml @ 300 mls/hr Q12 IVPB Last administered on 09/09/16 08:27; Admin Dose 300 MLS/HR; Start 08/31/16 at 21:00 Alprazolam (Xanax) 0.25 mg Q6H PRN GTB ANXIETY Last administered on 09/09/16 03 :39; Admin Dose 0.25 MG; Start 09/02/16 at 16:00 Lorazepam (Ativan) 0.5 mg Q6H PRN IV ANXIETY Last administered on 09/09/16 05: 17; Admin Dose 0.5 MG; Start 09/05/16 at 10:30 Hydrocortisone 100 mg 100 mg Q8 IV Last administered on 09/09/16 05:35; Admin Dose 100 MG; Start 09/05/16 at 14:00 Caspofungin/ Sodium Chloride (Cancidas/NS) 250 ml @ 250 mls/hr Q24H IVPB Last administered on 09/08/16 16:10; Admin Dose 250 MLS/HR; Start 09/06/16 at 15:30 Insulin Glargine 15 unit 15 unit DAILY SC Last administered on 09/09/16 08:43; Admin Dose 15 UNIT; Start 09/06/16 at 10:30 Phenylephrine HCl/ Sodium Chloride (Jabari-Syneph/NS) 500 ml @ 18.75 mls/ hr TITRATE IV Last administered on 09/09/16 09:03; Admin Dose 39.99 MLS/HR; Start 09/06/16 at 11:00 Sodium Hypochlorite (Dakin'S (Dilute 1/40%)) 1 applic QHS IRR Last administered on 09/08/16 20:42; Admin Dose 1 APPLIC; Start 09/07/16 at 21:00 Sodium Hypochlorite 1 applic 1 applic QHS IRR Last administered on 09/08/16 20: 42; Admin Dose 1 APPLIC; Start 09/07/16 at 21:00 Dopamine HCl/ Dextrose 250 ml @ 6.375 mls/ hr TITRATE IV Last administered on 09/08/16 23:52; Admin Dose 6.375 MLS/HR; Start 09/08/16 at 23:30 Sodium Bicarbonate/ Dextrose (Na Bicarb/D5W) 1,100 ml @ 100 mls/hr Q11H IV Last administered on 09/09/16 00:10; Admin Dose 100 MLS/HR; Start 09/08/16 at 23: 45 Insulin Aspart (Novolog Insulin Pen) NOVOLOG *MODERATE* ALGORI... Q4 SC Last administered on 09/09/16 08:44; Admin Dose 6 UNIT; Start 09/09/16 at 13:00 ALDO BRADEN Sep 09, 2016 09:24
[2016-09-09] MEDS ORDERED: ACCU-CHEK XX SCH (09:30)
[2016-09-09] MEDS: COLISTIMETHATE 75 MG in SOD CHLORIDE 0.9% 100 ML IVPB SCH ×2 (09:31→20:40)
[2016-09-09] MEDS ORDERED: INSULIN HUMAN REGULAR 100 UNIT in SOD CHLORIDE 0.9% 99 ML IV SCH (10:00)
[2016-09-09] MEDS: ACCU-CHEK XX SCH ×14 (10:00→23:01)
[2016-09-09 10:02] LABS: AADO2 Arterial 491.9 mmHg (7.0-24.0); Allen Test ACCEPTAB; Arterial Base Excess -0.2 mmol/L (-3.0-3); Arterial COHb 0.3 % (0.0-3.0); Arterial Fraction of Oxyhgb 98.4 % (93.0-99.0); Arterial HCO3 25.2 mmol/L (22.0-26.0); Arterial MetHb 0.3 % (0.0-1.5); Arterial Total Hemglobin 10.9 g/dl (12.0-18.0); MODE VENT - AC
[2016-09-09 10:12] LABS: POTASSIUM 4.2 mmol/L (3.5-5.1)
[2016-09-09 10:14] LABS: INR 1.41; PROTIME 17.3 Sec (12.2-14.2); PT RATIO 1.4
[2016-09-09 10:20] LABS: CALCIUM 7.7 mg/dl (8.4-10.2); CREATININE 0.45 mg/dl (0.61-1.24); PARTIAL THROMBOPLASTIN TIME 36.9 Sec (25.0-35.0)
--- NOTE | 2016-09-09 12:02 | RADRPT ---
PROCEDURE: XR Chest AP portable CLINICAL INDICATION: Trache positioning TECHNIQUE: An AP portable radiograph of the chest was submitted. COMPARISON: 09/06/2016 FINDINGS: Support Hardware: The tracheostomy tube remains satisfactorily positioned with the tip at the level of T3-T4. The left subclavian central venous catheter is stable in positioning as well. Cardiovascular: The heart appears upper normal in size and the pulmonary vasculature appears unremar kable. Lung Arthur: There is again dense atelectasis / infiltrate seen to the heart with in the left lower lobe and atelectasis and possibly infiltrate is again seen extensively through the right upper lobe. Interstitial infiltrate is again seen within the right lower lung zone and the left mid to upper l rodney zone. Pleural Spaces: The left costophrenic angle remains obscured suspicious for a small left pleural flu id accumulation. No pneumothorax is evident. Osseous Structures: There is a mild dextroscoliotic curve to the thoracic spine. The left glenohume ral joint appears widened. Soft Tissues: The soft tissues appear unremarkable. IMPRESSION: 1. The endotracheal tube in the left subclavian central venous catheter appears satisfactorily posi tioned and unchanged. 2. Persistent atelectasis and possibly infiltrate seen extensively in the left lower lobe of the ri ght upper lobe with interstitial infiltrates seen to the right lower lobe and the left mid to upper lung zone, unchanged. 3. A small left pleural fluid accumulation and I again not be excluded. 4. Mild dextroscoliotic curve to the thoracic spine. There is no apparent widening of the left gle nohumeral joint. Physician Kerri Date Time Electronically viewed and signed by Physician Kerri on 09/09/2016 12:02 /
[2016-09-09] MEDS ORDERED: INSULIN ASPART [NOVOLOG] 3 ML PEN SC SCH (13:00)
--- NOTE | 2016-09-09 13:01 | CONS ---
Date/Time of Note Date/Time of Note DATE: 09/09/16 TIME: 12:55 Consult Date/Type/Reason Admit Date/Time Jul 31, 2016 at 14:20 Initial Consult Date Type of Consultation: Pulm/CCM Subjective s/p trach change--> now improved ventilation and suctioning. Remains on pressors. Evaluated by ENT. Objective Vital Signs Date Time Temp Pulse Resp B/P Pulse Ox O2 Delivery O2 Flow Rate FiO2 09/09/16 12:00 140 09/09/16 12:00 70 09/09/16 11:15 28 100/69 100 Mechanical Ventilator 09/09/16 11:00 102.2 Intake and Output 09/08/16 09/08/16 09/09/16 15:00 23:00 07:00 Intake Total 1324.48 ml 1556.06 ml 1309.00 ml Output Total 855 ml 345 ml 825 ml Balance 469.48 ml 1211.06 ml 484.00 ml Exam HEENT: Pupils equal, round, and reactive to light. Tracheostomy is a proximal XLT 7.0 ID CARDIAC: Tachy, S1 and S2 CHEST: Diminished air entry bilaterally and rhonchi ABDOMEN: Mildly distended. No bowel sounds. EXTREMITIES: No cyanosis, clubbing edema +1 Results/Medications Result Diagram: 09/09/16 0450 09/09/16 0951 Results 24 hrs Laboratory Tests Test 09/08/16 18:13 09/08/16 22:32 09/08/16 22:48 09/09/16 00:30 Bedside Glucose 182 180 Blood Gas Specimen Source Blood arterial Arterial Blood Date Drawn 09/08/2016 11:24:24 PM Arterial Blood pH (Temp corrected) 7.119 *L Arterial Blood pCO2 (Temp correct) 57.9 H Arterial Blood pO2 (Temp corrected) 134.5 H Arterial Blood HCO3 18.4 L Arterial Blood Base Excess -11.1 L Arterial Blood Oxygen Saturation 97.7 [place] Test ACCEPTAB Arterial Blood Gas Puncture Site Right Radial Arterial Blood Carboxyhemoglobin 0.3 Arterial Blood Methemoglobin 0.2 Blood Gas A-a O2 Differential 520.6 H Oxyhemoglobin Percent 97.2 Total Hemoglobin 11.3 L Blood Gas Temperature 37.0 Blood Gas Respiration Rate 24.0 Blood Gas Actual Respiration Rate 24 Blood Gas Modality VENT - AC FiO2 100.0 Blood Gas Tidal Volume 500.0 Blood Gas Low PEEP Setting 8.0 Blood Gas Critical Value Read Back CHANTALE RN Blood Gas Notified Whom Blood Gas Notified Time 09/08/2016 11:29:34 PM White Blood Count 30.4 H Red Blood Count 3.71 L Hemoglobin 10.2 L Hematocrit 35.1 L Mean Corpuscular Volume 94.6 Mean Corpuscular Hemoglobin 27.5 L Mean Corpuscular Hemoglobin Concent 29.1 L Red Cell Distribution Width 18.4 H Platelet Count 361 # Mean Platelet Volume 10.5 H Neutrophils % 92.5 H Lymphocytes % 1.7 L Monocytes % 4.5 Eosinophils % 0.0 Basophils % 0.1 Nucleated Red Blood Cells % 0.4 H Neutrophils # 28.1 H Lymphocytes # 0.5 L Monocytes # 1.4 H Eosinophils # 0.0 Basophils # 0.0 Nucleated Red Blood Cells # 0.1 H Sodium Level 137 Potassium Level 5.4 H Chloride Level 105 Carbon Dioxide Level 23 Anion Gap 14 Blood Urea Nitrogen 24 H Creatinine 0.63 Glucose Level 380 #H Calcium Level 7.4 L Phosphorus Level 4.7 Magnesium Level 1.6 L Creatine Kinase < 20 L Creatine Kinase Index Creatinine Kinase MB (Mass) 1.10 Troponin I 0.050 Test 09/09/16 01:59 09/09/16 03:21 09/09/16 04:23 09/09/16 04:50 Bedside Glucose 399 H 344 H 336 H White Blood Count 28.6 H Red Blood Count 3.67 L Hemoglobin 10.0 L Hematocrit 34.4 L Mean Corpuscular Volume 93.7 Mean Corpuscular Hemoglobin 27.2 L Mean Corpuscular Hemoglobin Concent 29.1 L Red Cell Distribution Width 18.5 H Platelet Count 324 Mean Platelet Volume 11.1 H Neutrophils % 93.0 H Lymphocytes % 1.9 L Monocytes % 4.0 Eosinophils % 0.0 Basophils % 0.1 Nucleated Red Blood Cells % 0.3 H Neutrophils # 26.6 H Lymphocytes # 0.6 L Monocytes # 1.1 H Eosinophils # 0.0 Basophils # 0.0 Nucleated Red Blood Cells # 0.1 H Sodium Level 141 Potassium Level 5.2 H Chloride Level 103 Carbon Dioxide Level 24 Anion Gap 19 H Blood Urea Nitrogen 25 H Creatinine 0.55 L Glucose Level 333 H Calcium Level 7.6 L Magnesium Level 2.1 Test 09/09/16 05:40 09/09/16 06:44 09/09/16 08:00 09/09/16 08:38 Bedside Glucose 309 H 299 H 246 H Blood Gas Specimen Source Blood arterial Arterial Blood Date Drawn 09/09/2016 9:40:52 AM Arterial Blood pH (Temp corrected) 7.373 Arterial Blood pCO2 (Temp correct) 44.2 Arterial Blood pO2 (Temp corrected) 176.9 H Arterial Blood HCO3 25.2 Arterial Blood Base Excess -0.2 Arterial Blood Oxygen Saturation 99.0 H Colton Test ACCEPTAB Arterial Blood Gas Puncture Site Right Radial Arterial Blood Carboxyhemoglobin 0.3 Arterial Blood Methemoglobin 0.3 Blood Gas A-a O2 Differential 491.9 H Oxyhemoglobin Percent 98.4 Total Hemoglobin 10.9 L Blood Gas Temperature 37.0 Blood Gas Respiration Rate 28.0 Blood Gas Actual Respiration Rate 28 Blood Gas Modality VENT - AC FiO2 100.0 Blood Gas Tidal Volume 500.0 Blood Gas Low PEEP Setting 8.0 Blood Gas Notified Whom DT Blood Gas Notified Time 09/09/2016 10:02:32 AM Test 09/09/16 09:51 09/09/16 10:16 09/09/16 10:52 09/09/16 12:11 Prothrombin Time 17.3 H Prothrombin Time Ratio 1.4 INR International Normalized Ratio 1.41 Activated Partial Thromboplast Time 36.9 H Sodium Level 140 Potassium Level 4.2 Chloride Level 101 Carbon Dioxide Level 25 Anion Gap 18 H Blood Urea Nitrogen 24 H Creatinine 0.45 L Glucose Level 263 H Calcium Level 7.7 L Bedside Glucose 214 205 156 Medications Current Medications Ondansetron HCl (Zofran Inj) 4 mg Q6H PRN IV NAUSEA AND/OR VOMITING Last administered on 08/15/16 05:11; Admin Dose 4 MG; Start 07/31/16 at 15:00 Morphine Sulfate (morphine) 2 mg Q4H PRN IV SEVERE PAIN LEVEL 7-10 Last administered on 09/06/16 13:24; Admin Dose 2 MG; Start 07/31/16 at 15:00 Magnesium Hydroxide (Milk Of Mag) 30 ml DAILY PRN PO CONSTIPATION Last administered on 09/03/16 15:46; Admin Dose 30 ML; Start 07/31/16 at 15:00 Sodium Biphosphate/ Sodium Phosphate (Fleet Enema) 133 ml DAILY PRN LA CONSTIPATION; Start 07/31/16 at 15:00 Hydralazine HCl (Apresoline) 10 mg Q6H PRN IV ELEVATED BLOOD PRESSURE; Start at 15:00 Nitroglycerin (Nitroglycerin (Sl Tab) 0.4 Mg) 1 tab Q5M PRN SL ANGINA; Start at 15:00 Miscellaneous Information 1 ea NOTE XX ; Start 07/31/16 at 16:30 Zinc Sulfate (Zinc Sulfate) 220 mg DAILY GTB Last administered on 09/09/16 08: 26; Admin Dose 220 MG; Start 08/03/16 at 11:30 Multivitamins Therapeutic (Theragran) 1 tab DAILY PO Last administered on 08:26; Admin Dose 1 TAB; Start 08/03/16 at 11:30 Ascorbic Acid (Vitamin C) 500 mg BID GTB Last administered on 09/09/16 08:26; Admin Dose 500 MG; Start 08/03/16 at 11:30 Levothyroxine Sodium (Synthroid) 25 mcg DAILY@06 PO Last administered on 05:35; Admin Dose 25 MCG; Start 08/11/16 at 06:00 Paroxetine HCl (Paxil) 10 mg DAILY PO Last administered on 09/09/16 08:26; Admin Dose 10 MG; Start 08/11/16 at 21:00 Lactobacillus Acidoph/Bulgaricus (Floranex) 1 tab TID GTB Last administered on 09/09/16 08:26; Admin Dose 1 TAB; Start 08/15/16 at 21:30 Metformin HCl (Glucophage) 500 mg Q12 GTB Last administered on 08/27/16 08:54 ; Admin Dose 500 MG; Start 08/15/16 at 21:30; Status Future Hold Acetaminophen (Tylenol Tab) 650 mg Q6H PRN GTB PAIN AND OR ELEVATED TEMP Last administered on 09/09/16 09:01; Admin Dose 650 MG; Start 08/15/16 at 21:30 Magnesium Oxide (Mag-Ox 400) 400 mg DAILY GTB Last administered on 09/09/16 08: 26; Admin Dose 400 MG; Start 08/20/16 at 09:00 Enoxaparin Sodium (Lovenox) 40 mg DAILY SC Last administered on 09/09/16 08:42 ; Admin Dose 40 MG; Start 08/22/16 at 09:00 Famotidine (Pepcid) 20 mg DAILY GTB Last administered on 09/09/16 08:26; Admin Dose 20 MG; Start 08/22/16 at 09:00 Potassium Chloride (Potassium Chloride Pwd/Soln) 40 meq BID GTB Last administered on 09/08/16 20:43; Admin Dose 40 MEQ; Start 08/23/16 at 21:00 Nystatin 5 ml 5 ml QID PO Last administered on 09/09/16 08:45; Admin Dose 5 ML ; Start 08/25/16 at 17:00 Norepinephrine/ Dextrose (Levophed/D5W) 500 ml @ 1.87 mls/hr TITRATE IV Last administered on 09/08/16 21:45; Admin Dose 1.87 MLS/HR; Start 08/28/16 at 09:00 Metronidazole 500 mg 500 mg Q8 PO Last administered on 09/09/16 05:35; Admin Dose 500 MG; Start 08/29/16 at 14:00 Colistimethate Sodium 75 mg/ Sodium Chloride 100 ml @ 200 mls/hr Q12 IVPB Last administered on 09/09/16 09:31; Admin Dose 200 MLS/HR; Start 08/31/16 at 21 :00 Linezolid (Zyvox 600mg/D5W (Pmx)) 300 ml @ 300 mls/hr Q12 IVPB Last administered on 09/09/16 08:27; Admin Dose 300 MLS/HR; Start 08/31/16 at 21:00 Alprazolam (Xanax) 0.25 mg Q6H PRN GTB ANXIETY Last administered on 09/09/16 10 :15; Admin Dose 0.25 MG; Start 09/02/16 at 16:00 Lorazepam (Ativan) 0.5 mg Q6H PRN IV ANXIETY Last administered on 09/09/16 05: 17; Admin Dose 0.5 MG; Start 09/05/16 at 10:30 Hydrocortisone 100 mg 100 mg Q8 IV Last administered on 09/09/16 05:35; Admin Dose 100 MG; Start 09/05/16 at 14:00 Caspofungin 50 mg/ Sodium Chloride 250 ml @ 250 mls/hr Q24H IVPB Last administered on 09/08/16 16:10; Admin Dose 250 MLS/HR; Start 09/06/16 at 15:30 Phenylephrine HCl/ Sodium Chloride (Jabari-Syneph/NS) 500 ml @ 18.75 mls/ hr TITRATE IV Last administered on 09/09/16 09:03; Admin Dose 39.99 MLS/HR; Start 09/06/16 at 11:00 Sodium Hypochlorite (Dakin'S (Dilute 1/40%)) 1 applic QHS IRR Last administered on 09/08/16 20:42; Admin Dose 1 APPLIC; Start 09/07/16 at 21:00 Sodium Hypochlorite 1 applic 1 applic QHS IRR Last administered on 09/08/16 20: 42; Admin Dose 1 APPLIC; Start 09/07/16 at 21:00 Dopamine HCl/ Dextrose 250 ml @ 6.375 mls/ hr TITRATE IV Last administered on 09/08/16 23:52; Admin Dose 6.375 MLS/HR; Start 09/08/16 at 23:30 Sodium Bicarbonate 100 meq/Dextrose 1,100 ml @ 100 mls/hr Q11H IV Last administered on 09/09/16 10:16; Admin Dose 100 MLS/HR; Start 09/08/16 at 23:45 Insulin Human Regular/Sodium Chloride (Novolin-R/NS) 100 ml @ 0 mls/hr Q0M IV Last administered on 09/09/16 10:19; Admin Dose 4 MLS/HR; Start 09/09/16 at 10:00 Diagnostic Test (Pha) (Accu-Chek) 1 ea Q1H XX Last administered on 09/09/16 12: 27; Admin Dose 1 EA; Start 09/09/16 at 10:00 Assessment/Plan Additional Assessment/Plan IMP: 1. Vent dependent respiratory failure: CT chest shows trach hitting the anterior wall of the trachea--> resolved with trach change to distal XLT 2. Refractory septic shock likely polymicrobial possible component of adrenal insufficiency hemodynamically improved since addition of hydrocortisone 3. Significant anemia likely of chronic disease 4. Dysphagia with G-tube 5. History of quadriplegia RECS: 1. Continue vasopressors to MAP > 90 mm Hg 2. Appreciate ENT evaluation by Dr. Forbes 3. Continue hydrocortisone 4. CPT suctioning 5. Repeat cultures/am labs 35 min cc time TRENT VEGA MD Sep 09, 2016 13:01
[2016-09-09] MEDS ORDERED: ACETAMINOPHEN 650MG/20.3ML CUP GTB PRN (13:30)
[2016-09-09] MEDS: CASPOFUNGIN 50 MG in SOD CHLORIDE 0.9% 250 ML IVPB SCH (15:58)
--- NOTE | 2016-09-09 19:10 | CONS ---
Date/Time of Note Date/Time of Note DATE: 09/09/16 TIME: 18:56 Assessment/Plan Assessment/Plan Chief Complaint/Hosp Course ID PROGRESS NOTE TOTAL ABX DAY =>Week #5 ABX 1. Cancidas. 2. Colistin. 3. Zyvox. 4. Tobramycin INH 5. Flagyl. 24H INTERVAL SUMMARY * Weaning pressors improved after Trach change -- now spiking temperatures again today > 102.2 ==> TNS to [place] on hold due to patient instability. * TRANSFER PENDING: The patient is to be transferred to his capitated facility, [facility], for continued management. * Family visiting -- patient somewhat anxious appearing w/ progressive debility , appears weak,frail, anxious, mouthing words * CXR TODAY : IMPRESSION: * 1. The endotracheal tube in the left subclavian central venous catheter appears satisfactorily positioned and unchanged. * 2. Persistent atelectasis and possibly infiltrate seen extensively in the left lower lobe of the right upper lobe with interstitial infiltrates seen to the right lower lobe and the left mid to upper lung zone, unchanged. * 3. A small left pleural fluid accumulation and I again not be excluded. * 4. Mild dextroscoliotic curve to the thoracic spine. There is no apparent widening of the left glenohumeral joint. PHYSICAL EXAMINATION: GENERAL: 46 yo M appears weak, progressive debility on the Vent HEENT/Neck: Trach C-Spine collar, temporal wasting * Large posterior occipital decub -- see photos NCHEST: Equal chest rise bilaterally, without dyspnea on observation HEART: Pulse RRR, tachy at times ABDOMEN: Soft, peg EXTREMITIES: Warm, muscle wasting SKIN: See hard chart skin assessment: multiple STG IV Decubs ID ASSESSMENT: 46 yo M w/C-spine injury w/paraplegia->s/p spinal surgery admit with: 1. SIRS w/on-on low grade fevers + rising WBC -> Multifactorial due to wounds, invasives, reactive * s/p Sepsis on admission w/ fever, hypotension and tachycardia => multifactorial * BCx (-) to date * Afebrile today w/(+)low grade temps on/off ~100.+ * CT C-spine 08/12/16: No evidence spinal abscess/Infx * WBC Scan 08/13/16: No evidence infection 2. HCAP broncho-PNA * s/p Bronch 08/23/16 =? BAL (+)PSAR * CT: Scattered bronchial wall thickening, centrilobular nodules, tree in bud nodularity, and bronchocentric consolidation consistent with multifocal bronchitis/bronchiolitis/bronchopneumonia. Areas of bronchocentric scarring is also seen throughout the lungs suggestive of chronic recurrent infections. 3. Neurogenic bladder w/indwelling FC 4. Recurrent UTI's = CRI w/justification to keep FC due to incontinence wounds, concern urinary retention * Several small nonobstructing bilateral renal calculi. * Diffuse bladder wall thickening 5. Multiple infx decubs: Buttock/Back x 4 = STG IV / bilateral heels WOUND CULTURE Final Organism 1 KLEB PNEUMONIAE CARBAPENEMASE QUANTITY 3+ . MULTI DRUG RESISTANT ORGANISM Organism 2 ACINETOBACTER BAUMANNII QUANTITY 2+ Organism 3 VANCO RESISTANT ENTEROCOCCUS QUANTITY ISOLATED FROM BROTH ONLY . MULTI DRUG RESISTANT ORGANISM Organism 4 PROTEUS MIRABILIS QUANTITY SCANT GROWTH 6. Diarrhea = TF + ABX associated 7. Poor wound healing / protein sawyer malnutrition * On MVI, VitC, Zinc supplements 8. DMT2 ?Peripheral neuropathy 9. Depression=> situational related to current illness * staff registered nurse alerted patient at times declines wound care, turning, ?if due to frequent presence of female visitors in the room? * Encourage patient importance of turning and wound care compliance w/nursing staff (-)MRSA Nares INVASIVES: Trach/Peg/FC/L-Chest Port/C-spine hardware ABX ALLERGY: KNDA CURRENT ABX: Week #5 ABX => Zyvox, Colistin IV, Cancidas, Flagyl, Tobra INH ID RECOMMENDATIONS: 1. Continue current ABX * WBC persistently elevated = partial IV steroids demargination 2. Blood cx have remained (-) -> Repeate BCx sent today for TEMP 102.+ 3. Diarrhea contaminating wound = Needs diverting colostomy 4. Per notes: Not a good candidate for wound dbride due to concern would lead to chronic non-healing wound 5. Brother requesting DETAILED update with WBC counts daily, fevers, CXR Results , "why is he still septic" -- lengthy explanation that his day by day status may go back and forth from slight improvement to worse status -- focus at this point is to get patient out of septic shock crisis and look longer term for infections to resolve -- likely weeks. 6. TRANSFER PENDING when stable PLAN => The patient is to be transferred to his [facility] districtted facility, [facility], for continued management. . . . Problems: Consultation Date/Type/Reason Admit Date/Time Jul 31, 2016 at 14:20 Initial Consult Date 08/02/16 Type of Consultation: ID Exam/Review of Systems Vital Signs Vitals Vital Signs Date Time Temp Pulse Resp B/P Pulse Ox O2 Delivery O2 Flow Rate FiO2 09/09/16 18:00 125 28 94/68 98 Mechanical Ventilator 09/09/16 17:15 100.9 09/09/16 17:00 60 Intake and Output 09/08/16 09/08/16 09/09/16 14:59 22:59 06:59 Intake Total 1362.60 ml 1507.31 ml 1309.00 ml Output Total 795 ml 380 ml 650 ml Balance 567.60 ml 1127.31 ml 659.00 ml Results Result Diagram: 09/09/16 0450 09/09/16 0951 Results 24 hrs Laboratory Tests Test 09/08/16 22:32 09/08/16 22:48 09/09/16 00:30 09/09/16 01:59 Blood Gas Specimen Source Blood arterial Arterial Blood Date Drawn 09/08/2016 11:24:24 PM Arterial Blood pH (Temp corrected) 7.119 *L Arterial Blood pCO2 (Temp correct) 57.9 H Arterial Blood pO2 (Temp corrected) 134.5 H Arterial Blood HCO3 18.4 L Arterial Blood Base Excess -11.1 L Arterial Blood Oxygen Saturation 97.7 [place] Test ACCEPTAB Arterial Blood Gas Puncture Site Right Radial Arterial Blood Carboxyhemoglobin 0.3 Arterial Blood Methemoglobin 0.2 Blood Gas A-a O2 Differential 520.6 H Oxyhemoglobin Percent 97.2 Total Hemoglobin 11.3 L Blood Gas Temperature 37.0 Blood Gas Respiration Rate 24.0 Blood Gas Actual Respiration Rate 24 Blood Gas Modality VENT - AC FiO2 100.0 Blood Gas Tidal Volume 500.0 Blood Gas Low PEEP Setting 8.0 Blood Gas Critical Value Read Back CHATNALE CAMACHO Blood Gas Notified Whom Blood Gas Notified Time 09/08/2016 11:29:34 PM Bedside Glucose 180 399 H White Blood Count 30.4 H Red Blood Count 3.71 L Hemoglobin 10.2 L Hematocrit 35.1 L Mean Corpuscular Volume 94.6 Mean Corpuscular Hemoglobin 27.5 L Mean Corpuscular Hemoglobin Concent 29.1 L Red Cell Distribution Width 18.4 H Platelet Count 361 # Mean Platelet Volume 10.5 H Neutrophils % 92.5 H Lymphocytes % 1.7 L Monocytes % 4.5 Eosinophils % 0.0 Basophils % 0.1 Nucleated Red Blood Cells % 0.4 H Neutrophils # 28.1 H Lymphocytes # 0.5 L Monocytes # 1.4 H Eosinophils # 0.0 Basophils # 0.0 Nucleated Red Blood Cells # 0.1 H Sodium Level 137 Potassium Level 5.4 H Chloride Level 105 Carbon Dioxide Level 23 Anion Gap 14 Blood Urea Nitrogen 24 H Creatinine 0.63 Glucose Level 380 #H Calcium Level 7.4 L Phosphorus Level 4.7 Magnesium Level 1.6 L Creatine Kinase < 20 L Creatine Kinase Index Creatinine Kinase MB (Mass) 1.10 Troponin I 0.050 Test 09/09/16 03:21 09/09/16 04:23 09/09/16 04:50 09/09/16 05:40 Bedside Glucose 344 H 336 H 309 H White Blood Count 28.6 H Red Blood Count 3.67 L Hemoglobin 10.0 L Hematocrit 34.4 L Mean Corpuscular Volume 93.7 Mean Corpuscular Hemoglobin 27.2 L Mean Corpuscular Hemoglobin Concent 29.1 L Red Cell Distribution Width 18.5 H Platelet Count 324 Mean Platelet Volume 11.1 H Neutrophils % 93.0 H Lymphocytes % 1.9 L Monocytes % 4.0 Eosinophils % 0.0 Basophils % 0.1 Nucleated Red Blood Cells % 0.3 H Neutrophils # 26.6 H Lymphocytes # 0.6 L Monocytes # 1.1 H Eosinophils # 0.0 Basophils # 0.0 Nucleated Red Blood Cells # 0.1 H Sodium Level 141 Potassium Level 5.2 H Chloride Level 103 Carbon Dioxide Level 24 Anion Gap 19 H Blood Urea Nitrogen 25 H Creatinine 0.55 L Glucose Level 333 H Calcium Level 7.6 L Magnesium Level 2.1 Test 09/09/16 06:44 09/09/16 08:00 09/09/16 08:38 09/09/16 09:51 Bedside Glucose 299 H 246 H Blood Gas Specimen Source Blood arterial Arterial Blood Date Drawn 09/09/2016 9:40:52 AM Arterial Blood pH (Temp corrected) 7.373 Arterial Blood pCO2 (Temp correct) 44.2 Arterial Blood pO2 (Temp corrected) 176.9 H Arterial Blood HCO3 25.2 Arterial Blood Base Excess -0.2 Arterial Blood Oxygen Saturation 99.0 H Colton Test ACCEPTAB Arterial Blood Gas Puncture Site Right Radial Arterial Blood Carboxyhemoglobin 0.3 Arterial Blood Methemoglobin 0.3 Blood Gas A-a O2 Differential 491.9 H Oxyhemoglobin Percent 98.4 Total Hemoglobin 10.9 L Blood Gas Temperature 37.0 Blood Gas Respiration Rate 28.0 Blood Gas Actual Respiration Rate 28 Blood Gas Modality VENT - AC FiO2 100.0 Blood Gas Tidal Volume 500.0 Blood Gas Low PEEP Setting 8.0 Blood Gas Notified Whom DT Blood Gas Notified Time 09/09/2016 10:02:32 AM Prothrombin Time 17.3 H Prothrombin Time Ratio 1.4 INR International Normalized Ratio 1.41 Activated Partial Thromboplast Time 36.9 H Sodium Level 140 Potassium Level 4.2 Chloride Level 101 Carbon Dioxide Level 25 Anion Gap 18 H Blood Urea Nitrogen 24 H Creatinine 0.45 L Glucose Level 263 H Calcium Level 7.7 L Test 09/09/16 10:16 09/09/16 10:52 09/09/16 12:11 09/09/16 13:11 Bedside Glucose 214 205 156 140 Test 09/09/16 14:02 09/09/16 15:59 09/09/16 17:22 09/09/16 18:01 Bedside Glucose 147 88 73 77 Medications Medications Current Medications Ondansetron HCl (Zofran Inj) 4 mg Q6H PRN IV NAUSEA AND/OR VOMITING Last administered on 08/15/16 05:11; Admin Dose 4 MG; Start 07/31/16 at 15:00 Morphine Sulfate (morphine) 2 mg Q4H PRN IV SEVERE PAIN LEVEL 7-10 Last administered on 09/06/16 13:24; Admin Dose 2 MG; Start 07/31/16 at 15:00 Magnesium Hydroxide (Milk Of Mag) 30 ml DAILY PRN PO CONSTIPATION Last administered on 09/03/16 15:46; Admin Dose 30 ML; Start 07/31/16 at 15:00 Sodium Biphosphate/ Sodium Phosphate (Fleet Enema) 133 ml DAILY PRN PA CONSTIPATION; Start 07/31/16 at 15:00 Hydralazine HCl (Apresoline) 10 mg Q6H PRN IV ELEVATED BLOOD PRESSURE; Start at 15:00 Nitroglycerin (Nitroglycerin (Sl Tab) 0.4 Mg) 1 tab Q5M PRN SL ANGINA; Start at 15:00 Miscellaneous Information 1 ea NOTE XX ; Start 07/31/16 at 16:30 Zinc Sulfate (Zinc Sulfate) 220 mg DAILY GTB Last administered on 09/09/16 08: 26; Admin Dose 220 MG; Start 08/03/16 at 11:30 Multivitamins Therapeutic (Theragran) 1 tab DAILY PO Last administered on 08:26; Admin Dose 1 TAB; Start 08/03/16 at 11:30 Ascorbic Acid (Vitamin C) 500 mg BID GTB Last administered on 09/09/16 08:26; Admin Dose 500 MG; Start 08/03/16 at 11:30 Levothyroxine Sodium (Synthroid) 25 mcg DAILY@06 PO Last administered on 05:35; Admin Dose 25 MCG; Start 08/11/16 at 06:00 Paroxetine HCl (Paxil) 10 mg DAILY PO Last administered on 09/09/16 08:26; Admin Dose 10 MG; Start 08/11/16 at 21:00 Lactobacillus Acidoph/Bulgaricus (Floranex) 1 tab TID GTB Last administered on 09/09/16 13:11; Admin Dose 1 TAB; Start 08/15/16 at 21:30 Metformin HCl (Glucophage) 500 mg Q12 GTB Last administered on 08/27/16 08:54 ; Admin Dose 500 MG; Start 08/15/16 at 21:30; Status Future Hold Acetaminophen (Tylenol Tab) 650 mg Q6H PRN GTB PAIN AND OR ELEVATED TEMP Last administered on 09/09/16 09:01; Admin Dose 650 MG; Start 08/15/16 at 21:30 Magnesium Oxide (Mag-Ox 400) 400 mg DAILY GTB Last administered on 09/09/16 08: 26; Admin Dose 400 MG; Start 08/20/16 at 09:00 Enoxaparin Sodium (Lovenox) 40 mg DAILY SC Last administered on 09/09/16 08:42 ; Admin Dose 40 MG; Start 08/22/16 at 09:00 Famotidine (Pepcid) 20 mg DAILY GTB Last administered on 09/09/16 08:26; Admin Dose 20 MG; Start 08/22/16 at 09:00 Potassium Chloride (Potassium Chloride Pwd/Soln) 40 meq BID GTB Last administered on 09/08/16 20:43; Admin Dose 40 MEQ; Start 08/23/16 at 21:00 Nystatin 5 ml 5 ml QID PO Last administered on 09/09/16 17:24; Admin Dose 5 ML ; Start 08/25/16 at 17:00 Norepinephrine/ Dextrose (Levophed/D5W) 500 ml @ 1.87 mls/hr TITRATE IV Last administered on 09/08/16 21:45; Admin Dose 1.87 MLS/HR; Start 08/28/16 at 09:00 Metronidazole 500 mg 500 mg Q8 PO Last administered on 09/09/16 13:11; Admin Dose 500 MG; Start 08/29/16 at 14:00 Colistimethate Sodium 75 mg/ Sodium Chloride 100 ml @ 200 mls/hr Q12 IVPB Last administered on 09/09/16 09:31; Admin Dose 200 MLS/HR; Start 08/31/16 at 21 :00 Linezolid (Zyvox 600mg/D5W (Pmx)) 300 ml @ 300 mls/hr Q12 IVPB Last administered on 09/09/16 08:27; Admin Dose 300 MLS/HR; Start 08/31/16 at 21:00 Alprazolam (Xanax) 0.25 mg Q6H PRN GTB ANXIETY Last administered on 09/09/16 10 :15; Admin Dose 0.25 MG; Start 09/02/16 at 16:00 Lorazepam (Ativan) 0.5 mg Q6H PRN IV ANXIETY Last administered on 09/09/16 05: 17; Admin Dose 0.5 MG; Start 09/05/16 at 10:30 Hydrocortisone 100 mg 100 mg Q8 IV Last administered on 09/09/16 13:11; Admin Dose 100 MG; Start 09/05/16 at 14:00 Caspofungin 50 mg/ Sodium Chloride 250 ml @ 250 mls/hr Q24H IVPB Last administered on 09/09/16 15:58; Admin Dose 250 MLS/HR; Start 09/06/16 at 15:30 Phenylephrine HCl/ Sodium Chloride (Jabari-Syneph/NS) 500 ml @ 18.75 mls/ hr TITRATE IV Last administered on 09/09/16 09:03; Admin Dose 39.99 MLS/HR; Start 09/06/16 at 11:00 Sodium Hypochlorite (Dakin'S (Dilute 1/40%)) 1 applic QHS IRR Last administered on 09/08/16 20:42; Admin Dose 1 APPLIC; Start 09/07/16 at 21:00 Sodium Hypochlorite 1 applic 1 applic QHS IRR Last administered on 09/08/16 20: 42; Admin Dose 1 APPLIC; Start 09/07/16 at 21:00 Dopamine HCl/ Dextrose 250 ml @ 6.375 mls/ hr TITRATE IV Last administered on 09/08/16 23:52; Admin Dose 6.375 MLS/HR; Start 09/08/16 at 23:30 Sodium Bicarbonate 100 meq/Dextrose 1,100 ml @ 100 mls/hr Q11H IV Last administered on 09/09/16 10:16; Admin Dose 100 MLS/HR; Start 09/08/16 at 23:45 Insulin Human Regular/Sodium Chloride (Novolin-R/NS) 100 ml @ 0 mls/hr Q0M IV Last administered on 09/09/16 10:19; Admin Dose 4 MLS/HR; Start 09/09/16 at 10:00 Diagnostic Test (Pha) (Accu-Chek) 1 ea Q1H XX Last administered on 09/09/16 18: 01; Admin Dose 1 EA; Start 09/09/16 at 10:00 Acetaminophen (Tylenol Liquid) 650 mg Q6H PRN GTB PAIN AND OR ELEVATED TEMP; Start 09/09/16 at 13:30 ELOY PELAEZ NP Sep 09, 2016 19:06
[2016-09-09] MEDS: SODIUM HYPOCHLORITE 0.125% 473 ML BTL IRR SCH (21:38)
[2016-09-09] MEDS: SODIUM HYPOCHLORITE 1/40% 1L IRRIG IRR SCH (21:39)
[2016-09-10] VITALS (101 sets, daily range): BP systolic 79–123; BP diastolic 47–95; PULSE 64–119; RESP 11–28
[2016-09-10] MEDS: ACCU-CHEK XX SCH ×19 (02:00→18:22)
[2016-09-10] MEDS: HYDROCORTISONE 100 MG INJ IV SCH ×2 (05:31→14:01)
[2016-09-10] MEDS: LEVOTHYROXINE 25 MCG TAB PO SCH (05:31)
[2016-09-10] MEDS: metroNIDAZOLE 500 MG TAB PO SCH ×2 (05:32→14:01)
[2016-09-10 06:42] LABS: ADD SCAN DIFF NO
[2016-09-10 06:44] LABS: BASOPHILS % 0.1 % (0.0-2.0); HEMATOCRIT 28.2 % (42.0-52.0); HEMOGLOBIN 8.7 g/dl (14.0-18.0); LYMPHOCYTES # 0.7 10^3/ul (0.8-2.9); LYMPHOCYTES % 3.4 % (15.0-51.0); MEAN CORPUSCULAR HEMOGLOBIN 27.3 pg (29.0-33.0); MEAN CORPUSCULAR HGB CONC 30.9 g/dl (32.0-37.0); MEAN CORPUSCULAR VOLUME 88.4 fl (82.0-101.0); MEAN PLATELET VOLUME 10.8 fl (7.4-10.4); MONOCYTE # 0.8 10^3/ul (0.3-0.9); MONOCYTES % 3.7 % (0.0-11.0); NEUTROPHIL # 18.6 10^3/ul (1.6-7.5); NEUTROPHILS % 91.8 % (39.0-77.0); NUCLEATED RED BLOOD CELLS% 0.2 /100WBC (0.0-0.0); PLATELET COUNT 243 10^3/UL (140-415); RED BLOOD COUNT 3.19 10^6/ul (4.70-6.10); RED CELL DISTRIBUTION WIDTH 18.6 % (11.5-14.5); WHITE BLOOD COUNT 20.3 10^3/ul (4.8-10.8)
[2016-09-10 07:02] LABS: INR 1.4; PROTIME 17.2 Sec (12.2-14.2); PT RATIO 1.3
[2016-09-10 07:03] LABS: PARTIAL THROMBOPLASTIN TIME 35.4 Sec (25.0-35.0); POTASSIUM 2.8 mmol/L (3.5-5.1)
[2016-09-10 07:04] LABS: CREATININE 0.32 mg/dl (0.61-1.24)
[2016-09-10 07:05] LABS: CALCIUM 7.6 mg/dl (8.4-10.2)
[2016-09-10] MEDS: ALBUTEROL HFA 8 GM INHALER INH SCH ×2 (07:26→16:24)
[2016-09-10] MEDS ORDERED: POTASSIUM CHLORIDE 250 ML IVPB ONE (07:30)
[2016-09-10] MEDS ORDERED: POTASSIUM CHLORIDE 20 MEQ POWDER FOR ORAL SOLN GTB ONE (07:30)
[2016-09-10] MEDS: FAMOTIDINE 20 MG TAB GTB SCH (08:05)
[2016-09-10] MEDS: MULTIVITAMINS THERAPEUTIC TAB PO SCH (08:05)
[2016-09-10] MEDS: ALPRAZOLAM 0.25 MG TAB GTB PRN (08:05)
[2016-09-10] MEDS: NYSTATIN SUSP 5 ML CUP PO SCH ×4 (08:05→21:45)
[2016-09-10] MEDS: LACTOBACILLUS CHEW TAB GTB SCH ×3 (08:05→21:43)
[2016-09-10] MEDS: ZINC SULFATE 220 MG CAP GTB SCH (08:05)
[2016-09-10] MEDS: PAROXETINE 10 MG TAB PO SCH (08:05)
[2016-09-10] MEDS: MAGNESIUM OXIDE 400 MG TAB GTB SCH (08:05)
[2016-09-10] MEDS: ASCORBIC ACID 500 MG TAB GTB SCH ×2 (08:05→21:44)
[2016-09-10] MEDS: ENOXAPARIN 40 MG/0.4 ML SYG SC SCH (08:07)
--- NOTE | 2016-09-10 08:18 | PN ---
DATE: 09/09/2016 CARDIOLOGY FOLLOWUP SUBJECTIVE: Discussed with the staff, discussed with Dr. Noel, discussed with the family at the bedside. The patient remains with trach on the vent in the ICU. He remains hypotensive and still requiring Jabari-Synephrine drip. Remains in sinus tachycardia. No evidence of atrial fibrillation ov ernight. No more episodes of junctional bradycardia noted since tracheostomy tube has been changed, and hypoxemia episodes have resolved now. MEDICATIONS: Reviewed as per medication reconciliation; personally reviewed. PHYSICAL EXAMINATION: VITAL SIGNS: Temperature of 102.2, heart rate 130, blood pressure 111/71, respiratory rate of 20, s aturating 100%. HEENT: Normocephalic, atraumatic. Eyes are closed. NECK: Supple. Trach on the vent. CARDIOVASCULAR: Tachycardic. PULMONARY: With diffuse rhonchi. Decreased breath sounds, right upper lobe. GASTROINTESTINAL: Soft, status PEG placement. EXTREMITIES: Diffuse upper and lower extremity edema. NEUROLOGIC: Lethargic. LABORATORY: WBC of 28.6, hemoglobin 10.0, platelets of 324. Sodium 140, potassium 4.2, BUN of 24, creatinine of 0.45, glucose of 263. ASSESSMENT AND PLAN: 1. Severe sepsis and shock. 2. Pneumonia with ____, status post tracheostomy. 3. Episodes of junctional bradycardia secondary to hypoxemic episodes. 4. History of quadriplegia, spinal injury. 5. Fluid overload and congestive heart failure secondary to above and diastolic dysfunction with no rmal ejection fraction ____. 6. Electrolyte abnormality ____. 7. Anemia. 8. Diabetes. RECOMMENDATIONS: We will continue with supportive care. Continue with the ICU care. Vent support and trach care will be continued, as per pulmonary recommendations. Antibiotic is managed as per ID recommendation. Pressors and Jabari-Synephrine as needed will be continued. Try to titrate off if po ssible; however, so far he has been too hypotensive to tolerate that. We will continue with the ICU care. More than 36 minutes of critical care time was spent on this patient excluding any procedures. Dictated By: JOSE MANUEL OCAMPO MD AV/NTS Conf#: [id number] DID#: [id number] CC: TRENT NOEL MD;*EndCC*
[2016-09-10] MEDS: SODIUM BICARBONATE (IV ADD) 100 MEQ in DEXTROSE 5% 1,000 ML IV SCH ×3 (08:45→21:53)
[2016-09-10 08:59] LABS: AADO2 Arterial 312.6 mmHg (7.0-24.0); Allen Test ACCEPTAB; Arterial Base Excess 2.4 mmol/L (-3.0-3); Arterial COHb 0.3 % (0.0-3.0); Arterial Fraction of Oxyhgb 94.4 % (93.0-99.0); Arterial HCO3 25.6 mmol/L (22.0-26.0); Arterial MetHb 0.2 % (0.0-1.5); Arterial Total Hemglobin 10.7 g/dl (12.0-18.0); MODE VENT - AC
[2016-09-10] MEDS: TOBRAMYCIN/0.25NS 300 MG/5 ML INHAL NEB SCH ×2 (09:04→20:03)
[2016-09-10] MEDS: LINEZOLID 600 MG/D5W (PMX) 300 ML IVPB SCH ×2 (09:10→21:48)
--- NOTE | 2016-09-10 09:18 | RADRPT ---
PROCEDURE: XR Chest AP portable CLINICAL INDICATION: Ventilator TECHNIQUE: An AP portable radiograph of the chest was submitted. COMPARISON: 09/06/2016 FINDINGS: Support Hardware: The tracheostomy tube and the left sided Port-A-Cath are stable in positioning. Cardiovascular: The cardiovascular silhouette appears unremarkable. Lung Singh: There is improvement with regards to the atelectasis/infiltrate involving the left lowe r lobe and slight improvement with regards to the MR extensive volume loss and consolidation involvi ng the right upper lobe with interstitial infiltrates again seen to the remaining lung singh. Pleural Spaces: Presently no pleural fluid accumulation or pneumothorax is identified. Osseous Structures: The osseous structures appear intact. Soft Tissues: The soft tissues appear unremarkable. IMPRESSION: 1. The endotracheal tube and left-sided Port-A-Cath are stable in positioning. 2. Improvement with regards to the consolidation and volume loss involving the left lower lobe and minimal improvement to the more extensive consolidation volume loss involving the right upper lobe. 3. Interstitial infiltrates are seen to the remaining lung singh. Physician Kerri Date Time Electronically viewed and signed by Physician Kerri on 09/10/2016 09:18 /
[2016-09-10] MEDS: COLISTIMETHATE 75 MG in SOD CHLORIDE 0.9% 100 ML IVPB SCH ×2 (10:05→21:48)
[2016-09-10] MEDS ORDERED: MAGNESIUM SULFATE 1 GM/D5W 100 ML IVPB ONE (10:30)
--- NOTE | 2016-09-10 10:30 | CONS ---
Date/Time of Note Date/Time of Note DATE: 09/10/16 TIME: 10:28 Assessment/Plan Assessment/Plan Additional Assessment/Plan Septic shock Acute decompensated systolic congestive heart failure Sinus tachycardia C2 fracture and quadriplegic Respiratory failure Cardiomyopathy with ejection fraction 50% via echo on previous admission Decubiti Hypotension -Titrate IV pressor to maintain SBP greater than 90 and her map above 60, continue to hold any antihypertensives. Sinus tachycardia is manifestation of patient's severe sepsis. Antibiotics as per infectious disease. Potassium supplementation has already been ordered. We will give dose of magnesium to help with absorption. Consultation Date/Type/Reason Admit Date/Time Jul 31, 2016 at 14:20 Type of Consultation: cv 24 HR Interval Summary Free Text/Dictation Patient seen and examined, IV pressor requirements decreasing, no new cardiac issues as per nursing staff Exam/Review of Systems Vital Signs Vitals Vital Signs Date Time Temp Pulse Resp B/P Pulse Ox O2 Delivery O2 Flow Rate FiO2 09/10/16 10:15 103 28 111/83 100 Mechanical Ventilator 09/10/16 08:00 50 09/10/16 08:00 99.1 Intake and Output 09/09/16 09/09/16 09/10/16 14:59 22:59 06:59 Intake Total 1779.50 ml 2089.46 ml 1475.26 ml Output Total 1300 ml 1075 ml 1613 ml Balance 479.50 ml 1014.46 ml -137.74 ml Exam No apparent distress Head: normocephalic Neck: other (Tracheostomy) Respiratory: other (Coarse breath sounds bilaterally, no wheezing) Cardiovascular: other (S1-S2 heard), regular rate and rhythm Gastrointestinal: bowel sounds, non-tender, other (No guarding or grimacing with palpation), soft Extremities: edema Results Result Diagram: 09/10/16 0500 09/10/16 0500 Results 24 hrs Laboratory Tests Test 09/09/16 10:52 09/09/16 12:11 09/09/16 13:11 09/09/16 14:02 Bedside Glucose 205 156 140 147 Test 09/09/16 15:59 09/09/16 17:22 09/09/16 18:01 09/09/16 18:55 Bedside Glucose 88 73 77 73 Test 09/09/16 20:07 09/09/16 21:00 09/09/16 22:08 09/09/16 22:10 Bedside Glucose 82 89 155 141 Test 09/09/16 23:01 09/10/16 00:01 09/10/16 01:00 09/10/16 01:59 Bedside Glucose 151 152 147 137 Test 09/10/16 03:14 09/10/16 04:02 09/10/16 05:00 09/10/16 05:02 Bedside Glucose 162 164 165 White Blood Count 20.3 #H Red Blood Count 3.19 L Hemoglobin 8.7 L Hematocrit 28.2 L Mean Corpuscular Volume 88.4 Mean Corpuscular Hemoglobin 27.3 L Mean Corpuscular Hemoglobin Concent 30.9 L Red Cell Distribution Width 18.6 H Platelet Count 243 # Mean Platelet Volume 10.8 H Neutrophils % 91.8 H Lymphocytes % 3.4 L Monocytes % 3.7 Eosinophils % 0.0 Basophils % 0.1 Nucleated Red Blood Cells % 0.2 H Neutrophils # 18.6 H Lymphocytes # 0.7 L Monocytes # 0.8 Eosinophils # 0.0 Basophils # 0.0 Nucleated Red Blood Cells # 0.0 Prothrombin Time 17.2 H Prothrombin Time Ratio 1.3 INR International Normalized Ratio 1.40 Activated Partial Thromboplast Time 35.4 H Blood Gas Specimen Source Blood arterial Arterial Blood Date Drawn 09/10/2016 5:00:02 AM Arterial Blood pH (Temp corrected) 7.488 H Arterial Blood pCO2 (Temp correct) 34.5 L Arterial Blood pO2 (Temp corrected) 77.3 L Arterial Blood HCO3 25.6 Arterial Blood Base Excess 2.4 Arterial Blood Oxygen Saturation 94.9 L Colton Test ACCEPTAB Arterial Blood Gas Puncture Site Right Radial Arterial Blood Carboxyhemoglobin 0.3 Arterial Blood Methemoglobin 0.2 Blood Gas A-a O2 Differential 312.6 H Oxyhemoglobin Percent 94.4 Total Hemoglobin 10.7 L Blood Gas Temperature 37.0 Blood Gas Respiration Rate 28.0 Blood Gas Actual Respiration Rate 28 Blood Gas Modality VENT - AC FiO2 60.0 Blood Gas Tidal Volume 500.0 Blood Gas Low PEEP Setting 8.0 Blood Gas Inspiratory Pressure 44.0 Blood Gas Notified Whom BR Blood Gas Notified Time 09/10/2016 5:05:48 AM Sodium Level 137 Potassium Level 2.8 *L Chloride Level 96 L Carbon Dioxide Level 29 Anion Gap 15 Blood Urea Nitrogen 19 Creatinine 0.32 L Glucose Level 163 # Lactic Acid Level 4.8 *H Calcium Level 7.6 L Test 09/10/16 06:00 09/10/16 06:57 09/10/16 08:11 09/10/16 09:07 Bedside Glucose 165 139 143 184 Test 09/10/16 10:02 Bedside Glucose 193 Medications Medications Current Medications Ondansetron HCl (Zofran Inj) 4 mg Q6H PRN IV NAUSEA AND/OR VOMITING Last administered on 08/15/16 05:11; Admin Dose 4 MG; Start 07/31/16 at 15:00 Morphine Sulfate (morphine) 2 mg Q4H PRN IV SEVERE PAIN LEVEL 7-10 Last administered on 09/06/16 13:24; Admin Dose 2 MG; Start 07/31/16 at 15:00 Magnesium Hydroxide (Milk Of Mag) 30 ml DAILY PRN PO CONSTIPATION Last administered on 09/03/16 15:46; Admin Dose 30 ML; Start 07/31/16 at 15:00 Sodium Biphosphate/ Sodium Phosphate (Fleet Enema) 133 ml DAILY PRN [place] CONSTIPATION; Start 07/31/16 at 15:00 Hydralazine HCl (Apresoline) 10 mg Q6H PRN IV ELEVATED BLOOD PRESSURE; Start at 15:00 Nitroglycerin (Nitroglycerin (Sl Tab) 0.4 Mg) 1 tab Q5M PRN SL ANGINA; Start at 15:00 Miscellaneous Information 1 ea NOTE XX ; Start 07/31/16 at 16:30 Zinc Sulfate (Zinc Sulfate) 220 mg DAILY GTB Last administered on 09/10/16 08: 05; Admin Dose 220 MG; Start 08/03/16 at 11:30 Multivitamins Therapeutic (Theragran) 1 tab DAILY PO Last administered on 08:05; Admin Dose 1 TAB; Start 08/03/16 at 11:30 Ascorbic Acid (Vitamin C) 500 mg BID GTB Last administered on 09/10/16 08:05; Admin Dose 500 MG; Start 08/03/16 at 11:30 Levothyroxine Sodium (Synthroid) 25 mcg DAILY@06 PO Last administered on 05:31; Admin Dose 25 MCG; Start 08/11/16 at 06:00 Paroxetine HCl (Paxil) 10 mg DAILY PO Last administered on 09/10/16 08:05; Admin Dose 10 MG; Start 08/11/16 at 21:00 Lactobacillus Acidoph/Bulgaricus (Floranex) 1 tab TID GTB Last administered on 09/10/16 08:05; Admin Dose 1 TAB; Start 08/15/16 at 21:30 Metformin HCl (Glucophage) 500 mg Q12 GTB Last administered on 08/27/16 08:54 ; Admin Dose 500 MG; Start 08/15/16 at 21:30; Status Future Hold Acetaminophen (Tylenol Tab) 650 mg Q6H PRN GTB PAIN AND OR ELEVATED TEMP Last administered on 09/09/16 09:01; Admin Dose 650 MG; Start 08/15/16 at 21:30 Magnesium Oxide (Mag-Ox 400) 400 mg DAILY GTB Last administered on 09/10/16 08 :05; Admin Dose 400 MG; Start 08/20/16 at 09:00 Enoxaparin Sodium (Lovenox) 40 mg DAILY SC Last administered on 09/10/16 08:07 ; Admin Dose 40 MG; Start 08/22/16 at 09:00 Famotidine (Pepcid) 20 mg DAILY GTB Last administered on 09/10/16 08:05; Admin Dose 20 MG; Start 08/22/16 at 09:00 Potassium Chloride (Potassium Chloride Pwd/Soln) 40 meq BID GTB Last administered on 09/09/16 20:31; Admin Dose 40 MEQ; Start 08/23/16 at 21:00; Status Future hold Nystatin 5 ml 5 ml QID PO Last administered on 09/10/16 08:05; Admin Dose 5 ML ; Start 08/25/16 at 17:00 Norepinephrine/ Dextrose (Levophed/D5W) 500 ml @ 1.87 mls/hr TITRATE IV Last administered on 09/08/16 21:45; Admin Dose 1.87 MLS/HR; Start 08/28/16 at 09:00 Metronidazole 500 mg 500 mg Q8 PO Last administered on 09/10/16 05:32; Admin Dose 500 MG; Start 08/29/16 at 14:00 Colistimethate Sodium 75 mg/ Sodium Chloride 100 ml @ 200 mls/hr Q12 IVPB Last administered on 09/10/16 10:05; Admin Dose 200 MLS/HR; Start 08/31/16 at 21:00 Linezolid (Zyvox 600mg/D5W (Pmx)) 300 ml @ 300 mls/hr Q12 IVPB Last administered on 09/10/16 09:10; Admin Dose 300 MLS/HR; Start 08/31/16 at 21:00 Alprazolam (Xanax) 0.25 mg Q6H PRN GTB ANXIETY Last administered on 09/10/16 08:05; Admin Dose 0.25 MG; Start 09/02/16 at 16:00 Lorazepam (Ativan) 0.5 mg Q6H PRN IV ANXIETY Last administered on 09/09/16 05: 17; Admin Dose 0.5 MG; Start 09/05/16 at 10:30 Hydrocortisone 100 mg 100 mg Q8 IV Last administered on 09/10/16 05:31; Admin Dose 100 MG; Start 09/05/16 at 14:00 Caspofungin 50 mg/ Sodium Chloride 250 ml @ 250 mls/hr Q24H IVPB Last administered on 09/09/16 15:58; Admin Dose 250 MLS/HR; Start 09/06/16 at 15:30 Phenylephrine HCl/ Sodium Chloride (Jabari-Syneph/NS) 500 ml @ 18.75 mls/ hr TITRATE IV Last administered on 09/09/16 09:03; Admin Dose 39.99 MLS/HR; Start 09/06/16 at 11:00 Sodium Hypochlorite (Dakin'S (Dilute 1/40%)) 1 applic QHS IRR Last administered on 09/09/16 21:39; Admin Dose 1 APPLIC; Start 09/07/16 at 21:00 Sodium Hypochlorite 1 applic 1 applic QHS IRR Last administered on 09/09/16 21: 38; Admin Dose 1 APPLIC; Start 09/07/16 at 21:00 Dopamine HCl/ Dextrose 250 ml @ 6.375 mls/ hr TITRATE IV Last administered on 09/08/16 23:52; Admin Dose 6.375 MLS/HR; Start 09/08/16 at 23:30 Sodium Bicarbonate 100 meq/Dextrose 1,100 ml @ 100 mls/hr Q11H IV Last administered on 09/09/16 22:11; Admin Dose 100 MLS/HR; Start 09/08/16 at 23:45 Insulin Human Regular/Sodium Chloride (Novolin-R/NS) 100 ml @ 0 mls/hr Q0M IV Last administered on 09/09/16 10:19; Admin Dose 4 MLS/HR; Start 09/09/16 at 10:00 Diagnostic Test (Pha) (Accu-Chek) 1 ea Q1H XX Last administered on 09/10/16 10 :04; Admin Dose 1 EA; Start 09/09/16 at 10:00 Acetaminophen 650 mg 650 mg Q6H PRN GTB PAIN AND OR ELEVATED TEMP; Start at 13:30 Potassium Chloride (KCl 40 MEQ/250 ML NS) 250 ml @ 62.5 mls/hr ONCE ONCE IVPB Last administered on 09/10/16 08:03; Admin Dose 62.5 MLS/HR; Start 09/10/16 at 07:30; Stop 09/10/16 at 11:29 Kb Barrett DO Sep 10, 2016 10:30
--- NOTE | 2016-09-10 11:33 | CONS ---
Date/Time of Note Date/Time of Note DATE: 09/10/16 TIME: 11:30 Assessment/Plan Assessment/Plan Additional Assessment/Plan Chest x-ray was reviewed from today which is showing bilateral infiltrative changes with slight interval improvement. Extensive right upper lobe consolidation is present. Ventilator settings; AC of 28, tidal volume 500, PEEP of 8, 50% FiO2. Assessment recommendations; 1. Patient admitted for severe bilateral pneumonia with sepsis. 2. Severe sacral and bilateral hip decubitus ulcers. 3. History of chronic respiratory failure, due to quadriplegia. Patient remains ventilator dependent. 4. Severe hypotension. 5. Hypothyroidism. 6. History of diabetes. 7. Systolic dysfunction. Continue current supportive care. Prognosis remains extremely poor. Patient is awaiting transfer to [facility]. Consultation Date/Type/Reason Admit Date/Time Jul 31, 2016 at 14:20 Initial Consult Date 08/02/16 Type of Consultation: Pulmonary/critical care 24 HR Interval Summary Free Text/Dictation Patient condition remains critical. Remains semi-responsive. Still requiring pressor support with phenylephrine drip. Exam; young male, on ventilator via tracheostomy currently in no distress. Exam/Review of Systems Vital Signs Vitals Vital Signs Date Time Temp Pulse Resp B/P Pulse Ox O2 Delivery O2 Flow Rate FiO2 09/10/16 11:15 101 28 104/74 100 Mechanical Ventilator 09/10/16 08:00 50 09/10/16 08:00 99.1 Intake and Output 09/09/16 09/09/16 09/10/16 15:00 23:00 07:00 Intake Total 1809.75 ml 2062.27 ml 1460.70 ml Output Total 1200 ml 1186 ml 1602 ml Balance 609.75 ml 876.27 ml -141.30 ml Exam HEENT exam is; supple neck, tracheostomy in place with clean insertion site. Patient has fair dentition. Pupils are midsize and reactive to light. No neck masses. No thyromegaly. No neck bruits. Chest exam is; diminished breath sounds bilaterally. No added sound. S1-S2 audible, no murmurs. Regular rhythm. Abdomen exam is; soft, G-tube in place. Nondistended. No organomegaly. Bowel sounds audible. Extremity exam is; patient has 2+ anasarca. Pulses 1+ bilaterally. 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 Results Result Diagram: 09/10/16 0500 09/10/16 0500 Results 24 hrs Laboratory Tests Test 09/09/16 12:11 09/09/16 13:11 09/09/16 14:02 09/09/16 15:59 Bedside Glucose 156 140 147 88 Test 09/09/16 17:22 09/09/16 18:01 09/09/16 18:55 09/09/16 20:07 Bedside Glucose 73 77 73 82 Test 09/09/16 21:00 09/09/16 22:08 09/09/16 22:10 09/09/16 23:01 Bedside Glucose 89 155 141 151 Test 09/10/16 00:01 09/10/16 01:00 09/10/16 01:59 09/10/16 03:14 Bedside Glucose 152 147 137 162 Test 09/10/16 04:02 09/10/16 05:00 09/10/16 05:02 09/10/16 06:00 Bedside Glucose 164 165 165 White Blood Count 20.3 #H Red Blood Count 3.19 L Hemoglobin 8.7 L Hematocrit 28.2 L Mean Corpuscular Volume 88.4 Mean Corpuscular Hemoglobin 27.3 L Mean Corpuscular Hemoglobin Concent 30.9 L Red Cell Distribution Width 18.6 H Platelet Count 243 # Mean Platelet Volume 10.8 H Neutrophils % 91.8 H Lymphocytes % 3.4 L Monocytes % 3.7 Eosinophils % 0.0 Basophils % 0.1 Nucleated Red Blood Cells % 0.2 H Neutrophils # 18.6 H Lymphocytes # 0.7 L Monocytes # 0.8 Eosinophils # 0.0 Basophils # 0.0 Nucleated Red Blood Cells # 0.0 Prothrombin Time 17.2 H Prothrombin Time Ratio 1.3 INR International Normalized Ratio 1.40 Activated Partial Thromboplast Time 35.4 H Blood Gas Specimen Source Blood arterial Arterial Blood Date Drawn 09/10/2016 5:00:02 AM Arterial Blood pH (Temp corrected) 7.488 H Arterial Blood pCO2 (Temp correct) 34.5 L Arterial Blood pO2 (Temp corrected) 77.3 L Arterial Blood HCO3 25.6 Arterial Blood Base Excess 2.4 Arterial Blood Oxygen Saturation 94.9 L Colton Test ACCEPTAB Arterial Blood Gas Puncture Site Right Radial Arterial Blood Carboxyhemoglobin 0.3 Arterial Blood Methemoglobin 0.2 Blood Gas A-a O2 Differential 312.6 H Oxyhemoglobin Percent 94.4 Total Hemoglobin 10.7 L Blood Gas Temperature 37.0 Blood Gas Respiration Rate 28.0 Blood Gas Actual Respiration Rate 28 Blood Gas Modality VENT - AC FiO2 60.0 Blood Gas Tidal Volume 500.0 Blood Gas Low PEEP Setting 8.0 Blood Gas Inspiratory Pressure 44.0 Blood Gas Notified Whom BR Blood Gas Notified Time 09/10/2016 5:05:48 AM Sodium Level 137 Potassium Level 2.8 *L Chloride Level 96 L Carbon Dioxide Level 29 Anion Gap 15 Blood Urea Nitrogen 19 Creatinine 0.32 L Glucose Level 163 # Lactic Acid Level 4.8 *H Calcium Level 7.6 L Test 09/10/16 06:57 09/10/16 08:11 09/10/16 09:07 09/10/16 10:02 Bedside Glucose 139 143 184 193 Test 09/10/16 10:59 Bedside Glucose 156 Medications Medications Current Medications Ondansetron HCl (Zofran Inj) 4 mg Q6H PRN IV NAUSEA AND/OR VOMITING Last administered on 08/15/16 05:11; Admin Dose 4 MG; Start 07/31/16 at 15:00 Morphine Sulfate (morphine) 2 mg Q4H PRN IV SEVERE PAIN LEVEL 7-10 Last administered on 09/06/16 13:24; Admin Dose 2 MG; Start 07/31/16 at 15:00 Magnesium Hydroxide (Milk Of Mag) 30 ml DAILY PRN PO CONSTIPATION Last administered on 09/03/16 15:46; Admin Dose 30 ML; Start 07/31/16 at 15:00 Sodium Biphosphate/ Sodium Phosphate (Fleet Enema) 133 ml DAILY PRN [place] CONSTIPATION; Start 07/31/16 at 15:00 Hydralazine HCl (Apresoline) 10 mg Q6H PRN IV ELEVATED BLOOD PRESSURE; Start at 15:00 Nitroglycerin (Nitroglycerin (Sl Tab) 0.4 Mg) 1 tab Q5M PRN SL ANGINA; Start at 15:00 Miscellaneous Information 1 ea NOTE XX ; Start 07/31/16 at 16:30 Zinc Sulfate (Zinc Sulfate) 220 mg DAILY GTB Last administered on 09/10/16 08: 05; Admin Dose 220 MG; Start 08/03/16 at 11:30 Multivitamins Therapeutic (Theragran) 1 tab DAILY PO Last administered on 08:05; Admin Dose 1 TAB; Start 08/03/16 at 11:30 Ascorbic Acid (Vitamin C) 500 mg BID GTB Last administered on 09/10/16 08:05; Admin Dose 500 MG; Start 08/03/16 at 11:30 Levothyroxine Sodium (Synthroid) 25 mcg DAILY@06 PO Last administered on 05:31; Admin Dose 25 MCG; Start 08/11/16 at 06:00 Paroxetine HCl (Paxil) 10 mg DAILY PO Last administered on 09/10/16 08:05; Admin Dose 10 MG; Start 08/11/16 at 21:00 Lactobacillus Acidoph/Bulgaricus (Floranex) 1 tab TID GTB Last administered on 09/10/16 08:05; Admin Dose 1 TAB; Start 08/15/16 at 21:30 Metformin HCl (Glucophage) 500 mg Q12 GTB Last administered on 08/27/16 08:54 ; Admin Dose 500 MG; Start 08/15/16 at 21:30; Status Future Hold Acetaminophen (Tylenol Tab) 650 mg Q6H PRN GTB PAIN AND OR ELEVATED TEMP Last administered on 09/09/16 09:01; Admin Dose 650 MG; Start 08/15/16 at 21:30 Magnesium Oxide (Mag-Ox 400) 400 mg DAILY GTB Last administered on 09/10/16 08 :05; Admin Dose 400 MG; Start 08/20/16 at 09:00 Enoxaparin Sodium (Lovenox) 40 mg DAILY SC Last administered on 09/10/16 08:07 ; Admin Dose 40 MG; Start 08/22/16 at 09:00 Famotidine (Pepcid) 20 mg DAILY GTB Last administered on 09/10/16 08:05; Admin Dose 20 MG; Start 08/22/16 at 09:00 Potassium Chloride (Potassium Chloride Pwd/Soln) 40 meq BID GTB Last administered on 09/09/16 20:31; Admin Dose 40 MEQ; Start 08/23/16 at 21:00; Status Future hold Nystatin 5 ml 5 ml QID PO Last administered on 09/10/16 08:05; Admin Dose 5 ML ; Start 08/25/16 at 17:00 Norepinephrine/ Dextrose (Levophed/D5W) 500 ml @ 1.87 mls/hr TITRATE IV Last administered on 09/08/16 21:45; Admin Dose 1.87 MLS/HR; Start 08/28/16 at 09:00 Metronidazole 500 mg 500 mg Q8 PO Last administered on 09/10/16 05:32; Admin Dose 500 MG; Start 08/29/16 at 14:00 Colistimethate Sodium 75 mg/ Sodium Chloride 100 ml @ 200 mls/hr Q12 IVPB Last administered on 09/10/16 10:05; Admin Dose 200 MLS/HR; Start 08/31/16 at 21:00 Linezolid (Zyvox 600mg/D5W (Pmx)) 300 ml @ 300 mls/hr Q12 IVPB Last administered on 09/10/16 09:10; Admin Dose 300 MLS/HR; Start 08/31/16 at 21:00 Alprazolam (Xanax) 0.25 mg Q6H PRN GTB ANXIETY Last administered on 09/10/16 08:05; Admin Dose 0.25 MG; Start 09/02/16 at 16:00 Lorazepam (Ativan) 0.5 mg Q6H PRN IV ANXIETY Last administered on 09/09/16 05: 17; Admin Dose 0.5 MG; Start 09/05/16 at 10:30 Hydrocortisone 100 mg 100 mg Q8 IV Last administered on 09/10/16 05:31; Admin Dose 100 MG; Start 09/05/16 at 14:00 Caspofungin 50 mg/ Sodium Chloride 250 ml @ 250 mls/hr Q24H IVPB Last administered on 09/09/16 15:58; Admin Dose 250 MLS/HR; Start 09/06/16 at 15:30 Phenylephrine HCl/ Sodium Chloride (Jabari-Syneph/NS) 500 ml @ 18.75 mls/ hr TITRATE IV Last administered on 09/09/16 09:03; Admin Dose 39.99 MLS/HR; Start 09/06/16 at 11:00 Sodium Hypochlorite (Dakin'S (Dilute 1/40%)) 1 applic QHS IRR Last administered on 09/09/16 21:39; Admin Dose 1 APPLIC; Start 09/07/16 at 21:00 Sodium Hypochlorite 1 applic 1 applic QHS IRR Last administered on 09/09/16 21: 38; Admin Dose 1 APPLIC; Start 09/07/16 at 21:00 Dopamine HCl/ Dextrose 250 ml @ 6.375 mls/ hr TITRATE IV Last administered on 09/08/16 23:52; Admin Dose 6.375 MLS/HR; Start 09/08/16 at 23:30 Sodium Bicarbonate 100 meq/Dextrose 1,100 ml @ 100 mls/hr Q11H IV Last administered on 09/09/16 22:11; Admin Dose 100 MLS/HR; Start 09/08/16 at 23:45 Insulin Human Regular/Sodium Chloride (Novolin-R/NS) 100 ml @ 0 mls/hr Q0M IV Last administered on 09/09/16 10:19; Admin Dose 4 MLS/HR; Start 09/09/16 at 10:00 Diagnostic Test (Pha) (Accu-Chek) 1 ea Q1H XX Last administered on 09/10/16 11 :00; Admin Dose 1 EA; Start 09/09/16 at 10:00 Acetaminophen (Tylenol Liquid) 650 mg Q6H PRN GTB PAIN AND OR ELEVATED TEMP; Start 09/09/16 at 13:30 ALISSON ARRIOLA Sep 10, 2016 11:33
--- NOTE | 2016-09-10 12:40 | PN ---
DATE: 09/10/2016 SUBJECTIVE: No acute changes. The patient is lying comfortably in bed. He is on Jabari-Synephrine dr woodruff. VITAL SIGNS: Afebrile, T-max 102.2 yesterday, T-current 99.1, pulse 101, respirations 28, blood pre ssure 104/74, saturation 100 on vent. LABORATORY: WBC 20.3, H and H 8.7 and 28.2, platelets 242, neutrophils 91.8, no bands. BUN 19, cre atinine 0.32. MICROBIOLOGY: Blood cultures, urine cultures since 09/09/2016 remain negative. INDWELLINGS: Trach, PEG, Oliveira, left chest Port-A-Cath. ANTIMICROBIALS: 1. Cancidas. 2. Colistin. 3. Zyvox. 4. Tobramycin inhalation. 5. Oral Flagyl. PHYSICAL EXAMINATION: GENERAL: This is an unfortunate, chronically ill-appearing, middle-aged man who is lying comfortabl y in bed. HEENT: Head atraumatic, normocephalic. Sclerae anicteric. Buccal mucosa dry. NECK: Supple, tracheostomy present. CHEST: Rise symmetrical. Breath sounds diminished with bilateral rales. HEART: S1, S2. ABDOMEN: Soft. Bowel tones present. EXTREMITIES: Bilateral edema. SKIN: With multiple unstageable wounds. ASSESSMENT: 1. Severe sepsis with shock. 2. Multiple infected wounds. 3. Severe multifocal healthcare-associated pneumonia. 4. Quadriplegia. 5. History of C-spine injury. 6. Cardiomyopathy with acute decompensated congestive heart failure. PLAN: The patient is doing poorly. He is covered on multiple antibiotics. He is also on antifunga l coverage. He is being followed by multiple consultants. He is also on IV steroids. Pending alonzo sfer to [facility] when the patient is stable, overall prognosis poor. Dictated By: LESLIE FERRARO CLEANER FURNITURE for ROGE HERNANDEZ/SCOTTIE Conf#: [id number] DID#: [id number]
--- NOTE | 2016-09-10 13:57 | PN ---
Date/Time of Note Date/Time of Note DATE: 09/10/16 TIME: 13:50 Assessment/Plan VTE Prophylaxis VTE Prophylaxis Intervention: LMWH Lines/Catheters IV Catheter Type (from Nrs): PORT-A-CATH Urinary Cath still in place: Yes Reason Cath still needed: urinary retention Assessment/Plan Chief Complaint/Hosp Course Assessment/Plan: 46-year-old male sent in with fever and diaphoresis with findings of septic shock. 1) Overwhelming Sepsis/shock - sec to HCAP likely + decub ulcer infx's, now with shock - sp bronch/atb's - now on 3 pressors 2) Decubitus wound/ MDR organisms. Diverting colostomy & debridement may not be feasible while on vent. quality of life will not improve post therapy - abx as above 3) Quadriplegia 2/2 Ho C2 fracture; poor prognosis; palliative care eval appreciated - pt chemical code only 4) VDRF; cont vent, f/u pulm rec's - Continue vent support and mgt per pulm 5) Chr CHF/ systolic? - monitor 6) Ho c diff - monitor 7. Malnutrition; cont peg/feeds/free water. 8. Past tobacco - monitor 9. Hypernatremia - resolved now - monitor 10. Elevated Ca : resolved 11. Hypothyroidism: on Synthroid 12. Depression: Paxil 13. Chronic Pain 14. Anemia of chronic disease + likely chronic blood loss from severe decubiti : Transfusion PRN 15. Persistent tachycardia - sec to sepsis/shock - monitor 16. Diet controlled DM 2 with Hyperglycemia likely 2/2 dextrose in pressors + Steroids: 17. Tracheostomy problems with stoma erosion: Trach changed 09/08/16 by pulm: expanded stoma to heal by secondary intention per ENT * Continue ICU care and support * Patient is now a chemical code only Critical care time spent with pt care today = 40 min. Prophylaxis: Pepcid / Lovenox Problems: Subjective 24 Hr Interval Summary Free Text/Dictation Pt still on pressor support. Exam/Review of Systems Vital Signs Vitals Vital Signs Date Time Temp Pulse Resp B/P Pulse Ox O2 Delivery O2 Flow Rate FiO2 09/10/16 13:03 101 24 100 50 09/10/16 12:00 98.6 100/67 Mechanical Ventilator Intake and Output 09/09/16 09/09/16 09/10/16 15:00 23:00 07:00 Intake Total 1809.75 ml 2062.27 ml 1460.70 ml Output Total 1200 ml 1186 ml 1602 ml Balance 609.75 ml 876.27 ml -141.30 ml Exam Constitutional: somnolent, medicated for agitation Psych: unable to assess Head: normocephalic Eyes: PERRL ENMT: No mucosa pink and moist Neck: other (trach to vent) Respiratory: crackles/rales (coarse diffuse crackles), diminished breath sounds Cardiovascular: regular rate and rhythm Gastrointestinal: bowel sounds, distended (mildly), firm (mildly) Extremities: edema (in extremities only, slight sheen to both legs) Neurological: (C2 quadriplegic) Results Result Diagram: 09/10/16 0500 09/10/16 0500 Results 24 hrs Laboratory Tests Test 09/09/16 14:02 09/09/16 15:59 09/09/16 17:22 09/09/16 18:01 Bedside Glucose 147 88 73 77 Test 09/09/16 18:55 09/09/16 20:07 09/09/16 21:00 09/09/16 22:08 Bedside Glucose 73 82 89 155 Test 09/09/16 22:10 09/09/16 23:01 09/10/16 00:01 09/10/16 01:00 Bedside Glucose 141 151 152 147 Test 09/10/16 01:59 09/10/16 03:14 09/10/16 04:02 09/10/16 05:00 Bedside Glucose 137 162 164 White Blood Count 20.3 #H Red Blood Count 3.19 L Hemoglobin 8.7 L Hematocrit 28.2 L Mean Corpuscular Volume 88.4 Mean Corpuscular Hemoglobin 27.3 L Mean Corpuscular Hemoglobin Concent 30.9 L Red Cell Distribution Width 18.6 H Platelet Count 243 # Mean Platelet Volume 10.8 H Neutrophils % 91.8 H Lymphocytes % 3.4 L Monocytes % 3.7 Eosinophils % 0.0 Basophils % 0.1 Nucleated Red Blood Cells % 0.2 H Neutrophils # 18.6 H Lymphocytes # 0.7 L Monocytes # 0.8 Eosinophils # 0.0 Basophils # 0.0 Nucleated Red Blood Cells # 0.0 Prothrombin Time 17.2 H Prothrombin Time Ratio 1.3 INR International Normalized Ratio 1.40 Activated Partial Thromboplast Time 35.4 H Blood Gas Specimen Source Blood arterial Arterial Blood Date Drawn 09/10/2016 5:00:02 AM Arterial Blood pH (Temp corrected) 7.488 H Arterial Blood pCO2 (Temp correct) 34.5 L Arterial Blood pO2 (Temp corrected) 77.3 L Arterial Blood HCO3 25.6 Arterial Blood Base Excess 2.4 Arterial Blood Oxygen Saturation 94.9 L Colton Test ACCEPTAB Arterial Blood Gas Puncture Site Right Radial Arterial Blood Carboxyhemoglobin 0.3 Arterial Blood Methemoglobin 0.2 Blood Gas A-a O2 Differential 312.6 H Oxyhemoglobin Percent 94.4 Total Hemoglobin 10.7 L Blood Gas Temperature 37.0 Blood Gas Respiration Rate 28.0 Blood Gas Actual Respiration Rate 28 Blood Gas Modality VENT - AC FiO2 60.0 Blood Gas Tidal Volume 500.0 Blood Gas Low PEEP Setting 8.0 Blood Gas Inspiratory Pressure 44.0 Blood Gas Notified Whom BR Blood Gas Notified Time 09/10/2016 5:05:48 AM Sodium Level 137 Potassium Level 2.8 *L Chloride Level 96 L Carbon Dioxide Level 29 Anion Gap 15 Blood Urea Nitrogen 19 Creatinine 0.32 L Glucose Level 163 # Lactic Acid Level 4.8 *H Calcium Level 7.6 L Test 09/10/16 05:02 09/10/16 06:00 09/10/16 06:57 09/10/16 08:11 Bedside Glucose 165 165 139 143 Test 09/10/16 09:07 09/10/16 10:02 09/10/16 10:59 09/10/16 12:00 Bedside Glucose 184 193 156 163 Medications Medications Current Medications Ondansetron HCl (Zofran Inj) 4 mg Q6H PRN IV NAUSEA AND/OR VOMITING Last administered on 08/15/16 05:11; Admin Dose 4 MG; Start 07/31/16 at 15:00 Morphine Sulfate (morphine) 2 mg Q4H PRN IV SEVERE PAIN LEVEL 7-10 Last administered on 09/06/16 13:24; Admin Dose 2 MG; Start 07/31/16 at 15:00 Magnesium Hydroxide (Milk Of Mag) 30 ml DAILY PRN PO CONSTIPATION Last administered on 09/03/16 15:46; Admin Dose 30 ML; Start 07/31/16 at 15:00 Sodium Biphosphate/ Sodium Phosphate (Fleet Enema) 133 ml DAILY PRN HI CONSTIPATION; Start 07/31/16 at 15:00 Hydralazine HCl (Apresoline) 10 mg Q6H PRN IV ELEVATED BLOOD PRESSURE; Start at 15:00 Nitroglycerin (Nitroglycerin (Sl Tab) 0.4 Mg) 1 tab Q5M PRN SL ANGINA; Start at 15:00 Miscellaneous Information 1 ea NOTE XX ; Start 07/31/16 at 16:30 Zinc Sulfate (Zinc Sulfate) 220 mg DAILY GTB Last administered on 09/10/16 08: 05; Admin Dose 220 MG; Start 08/03/16 at 11:30 Multivitamins Therapeutic (Theragran) 1 tab DAILY PO Last administered on 08:05; Admin Dose 1 TAB; Start 08/03/16 at 11:30 Ascorbic Acid (Vitamin C) 500 mg BID GTB Last administered on 09/10/16 08:05; Admin Dose 500 MG; Start 08/03/16 at 11:30 Levothyroxine Sodium (Synthroid) 25 mcg DAILY@06 PO Last administered on 05:31; Admin Dose 25 MCG; Start 08/11/16 at 06:00 Paroxetine HCl (Paxil) 10 mg DAILY PO Last administered on 09/10/16 08:05; Admin Dose 10 MG; Start 08/11/16 at 21:00 Lactobacillus Acidoph/Bulgaricus (Floranex) 1 tab TID GTB Last administered on 09/10/16 12:03; Admin Dose 1 TAB; Start 08/15/16 at 21:30 Metformin HCl (Glucophage) 500 mg Q12 GTB Last administered on 08/27/16 08:54 ; Admin Dose 500 MG; Start 08/15/16 at 21:30; Status Future Hold Acetaminophen (Tylenol Tab) 650 mg Q6H PRN GTB PAIN AND OR ELEVATED TEMP Last administered on 09/09/16 09:01; Admin Dose 650 MG; Start 08/15/16 at 21:30 Magnesium Oxide (Mag-Ox 400) 400 mg DAILY GTB Last administered on 09/10/16 08 :05; Admin Dose 400 MG; Start 08/20/16 at 09:00 Enoxaparin Sodium (Lovenox) 40 mg DAILY SC Last administered on 09/10/16 08:07 ; Admin Dose 40 MG; Start 08/22/16 at 09:00 Famotidine (Pepcid) 20 mg DAILY GTB Last administered on 09/10/16 08:05; Admin Dose 20 MG; Start 08/22/16 at 09:00 Potassium Chloride (Potassium Chloride Pwd/Soln) 40 meq BID GTB Last administered on 09/09/16 20:31; Admin Dose 40 MEQ; Start 08/23/16 at 21:00; Status Future hold Nystatin 5 ml 5 ml QID PO Last administered on 09/10/16 12:03; Admin Dose 5 ML ; Start 08/25/16 at 17:00 Norepinephrine/ Dextrose (Levophed/D5W) 500 ml @ 1.87 mls/hr TITRATE IV Last administered on 09/08/16 21:45; Admin Dose 1.87 MLS/HR; Start 08/28/16 at 09:00 Metronidazole 500 mg 500 mg Q8 PO Last administered on 09/10/16 05:32; Admin Dose 500 MG; Start 08/29/16 at 14:00 Colistimethate Sodium 75 mg/ Sodium Chloride 100 ml @ 200 mls/hr Q12 IVPB Last administered on 09/10/16 10:05; Admin Dose 200 MLS/HR; Start 08/31/16 at 21:00 Linezolid (Zyvox 600mg/D5W (Pmx)) 300 ml @ 300 mls/hr Q12 IVPB Last administered on 09/10/16 09:10; Admin Dose 300 MLS/HR; Start 08/31/16 at 21:00 Alprazolam (Xanax) 0.25 mg Q6H PRN GTB ANXIETY Last administered on 09/10/16 08:05; Admin Dose 0.25 MG; Start 09/02/16 at 16:00 Lorazepam (Ativan) 0.5 mg Q6H PRN IV ANXIETY Last administered on 09/09/16 05: 17; Admin Dose 0.5 MG; Start 09/05/16 at 10:30 Hydrocortisone 100 mg 100 mg Q8 IV Last administered on 09/10/16 05:31; Admin Dose 100 MG; Start 09/05/16 at 14:00 Caspofungin 50 mg/ Sodium Chloride 250 ml @ 250 mls/hr Q24H IVPB Last administered on 09/09/16 15:58; Admin Dose 250 MLS/HR; Start 09/06/16 at 15:30 Phenylephrine HCl/ Sodium Chloride (Jabari-Syneph/NS) 500 ml @ 18.75 mls/ hr TITRATE IV Last administered on 09/09/16 09:03; Admin Dose 39.99 MLS/HR; Start 09/06/16 at 11:00 Sodium Hypochlorite (Dakin'S (Dilute 1/40%)) 1 applic QHS IRR Last administered on 09/09/16 21:39; Admin Dose 1 APPLIC; Start 09/07/16 at 21:00 Sodium Hypochlorite 1 applic 1 applic QHS IRR Last administered on 09/09/16 21: 38; Admin Dose 1 APPLIC; Start 09/07/16 at 21:00 Dopamine HCl/ Dextrose 250 ml @ 6.375 mls/ hr TITRATE IV Last administered on 09/08/16 23:52; Admin Dose 6.375 MLS/HR; Start 09/08/16 at 23:30 Sodium Bicarbonate 100 meq/Dextrose 1,100 ml @ 100 mls/hr Q11H IV Last administered on 09/10/16 12:00; Admin Dose 100 MLS/HR; Start 09/08/16 at 23:45 Insulin Human Regular/Sodium Chloride (Novolin-R/NS) 100 ml @ 0 mls/hr Q0M IV Last administered on 09/09/16 10:19; Admin Dose 4 MLS/HR; Start 09/09/16 at 10:00 Diagnostic Test (Pha) (Accu-Chek) 1 ea Q1H XX Last administered on 09/10/16 12 :00; Admin Dose 1 EA; Start 09/09/16 at 10:00 Acetaminophen (Tylenol Liquid) 650 mg Q6H PRN GTB PAIN AND OR ELEVATED TEMP; Start 09/09/16 at 13:30 DARON FARRELL Sep 10, 2016 13:56
[2016-09-10] MEDS: CASPOFUNGIN 50 MG in SOD CHLORIDE 0.9% 250 ML IVPB SCH (15:48)
--- NOTE | 2016-09-10 17:00 | PDOCDIS ---
Discharge Instructions CONDITION Patient Condition: Guarded HOME CARE INSTRUCTIONS: Special Diet: GT FEEDING DARON FARRELL Sep 10, 2016 17:00
--- NOTE | 2016-09-10 17:09 | DS ---
Date/Time of Note Date/Time of Note DATE: 09/10/16 TIME: 17:01 Discharge Summary Admission/Discharge Info Admit Date/Time Jul 31, 2016 at 14:20 Discharge Date/Time Final Diagnosis 1. Severe sepsis with shock secondary to multifocal pneumonia and decubitus ulcer infection, still on pressors, now on minimal pressor support. 2. Decubitus wound ulcer as colonizer and multidrug resistant organism. 3. Patient was stable for diverting colostomy and debridement and is not thought to improve quality of life post-procedure. 4. Quadriplegia secondary to history of C2 fracture. 5. Chronic ventilator dependent respiratory failure secondary to quadriplegia. 6. Chronic congestive heart failure. 7. History of Clostridium difficile infection. 8. Tobacco use. 9. Hypothyroidism. 10. Depression. 11. Anemia of chronic disease, likely superimposed on chronic blood loss from severe decubiti. 12. Diet controlled diabetes type 2 with acute tachycardia based on steroid therapy. 13. Persistent tachycardia, likely secondary to shock. Hx of Present Illness acute kidney Hospital Course DATE OF ADMISSION: 07/31/2016 DATE OF DISCHARGE: 09/10/2016 PRESENTING COMPLAINT: A 46-year-old male sent from the intermediate because of fever. ADMISSION DIAGNOSES: 1. Sepsis. 2, Chronic respiratory failure, tracheostomy dependence. 3. G-tube feeds. 4. History of C2 fracture, quadriplegia. CONSULTS ON THE CASE: * Dr. Tejas Azul, infectious disease, * Dr. Tito Perera, Dr. Reji Nicholson for pulmonary * Dr. Kb Syed for surgery * Dr. Kb Barrett for Cardiology. INTERVENTIONS: 1. Patient had multiple chest x-rays, the last of which was done 09/10/2016, it showed * The endotracheal tube and left-sided Port-A-Cath are stable in positioning. Improvement with regards to the consolidation and volume loss involving the left lower lobe and minimal improvement to the more extensive consolidation volume loss involving the right upper lobe. Interstitial infiltrates are seen to the remaining lung singh. 2. During the hospitalization as well, the patient underwent multiple lower extremity venous Dopplers, none of which came back positive for DVT. 3. The patient on 09/05/[address] angiogram that showed no CT evidence of pulmonary embolism, dense alveolar consolidation and infiltrate, most compatible with multifocal pneumonia. Fine nodular densities diffusely in both lungs, small bilateral effusion with cholelithiasis. 4. The patient had a CT of the abdomen and pelvis 08/14/2016 that showed atelectasis in the lung bases, several small nonobstructing bilateral renal stones, Oliveira catheter in the bladder. 5. He also had a WBC scan that was negative for infectious process in the spine and the pelvis. 6. He also had a CT scan of the cervical spine showed that patient is status post occiput to C5 posterior fusion with posterolateral osseous graft intact in appropriate position as well as trace anterolisthesis of C2 on C3, with displaced fracture of bilateral pars interarticularis of C2, moderate to severe neural foraminal stenosis at C5 to C6 and C6 to C7, primarily related to prominent left-sided uncovertebral spurring. HOSPITAL COURSE: Full details are available in the chart for review. In summary, this is a 46-year-old unfortunate male who has sustained a fall from a ladder a few months ago back in April of 2016 and at that time had sustained a C2 fracture. This left him quadriplegic and he ended up needing a tracheostomy and being chronically ventilator dependent. He also ended up with a concomitant dysphagia and required a PEG tube for feeding. He underwent cervical spine surgery to repair his fracture and he had occipital C5 posterior fusion with a posterolateral graft. Once stabilized, he was sent to the long-term facility for continued medical care. He had his cervical collar in place and was supposed to have this on for 4 months, per the patient. Unfortunately, at the long-term facility and since his procedure, the patient developed multiple decubiti ulcers and at the time he was sent to us, he had also developed bilateral pneumonia. He came to us with severe sepsis and ended up in septic shock and was managed aggressively, according to protocol. His wound and his urine as well as his respiratory cultures were growing out multidrug resistant organisms. Surgery was consulted for possible debridement of his very deep sacral ulcers; however, the patient also developed congestive heart failure at some point and he was considered unstable for surgery. Plastic surgery was consulted as well, and they determined that the patient would benefit from a diverting colostomy after which they might consider grafting his deep ulcers. However, in view of his quality of life as well as the fact that the patient has never fully recovered from his septic pneumonia and septic shock, he has remained unstable for any kind of elective major surgery at this time. Infectious disease has been following the patient throughout his hospitalization course and the patient has required extremely potent antibiotics with minimal effect. Right now he is on caspofungin for antifungal coverage, inhaled Colistin and tobramycin. He remains in intensive care unit on pressor support and his white count still remains elevated at 27,000. Clinically, however, the patient while lethargic, remains alert and oriented. He was seen by the palliative care team and has opted for CHEMICAL CODE ONLY. He was also seen by Neurosurgery, Dr. Kimani Jimenez, who reviewed the CT scan of his cervical spine and advised discontinuation of his cervical collar and felt that there was no further intervention required for his C spine fractures. The patient is quite unfortunate and his long-term prognosis is not very bright. However, he has been essentially in similar condition for most of his hospitalization. He remains in severe sepsis with waxing and waning shock despite aggressive antibiotic and clinical therapy. Currently, he is undergoing wound dressing changes twice a day. He was scheduled to be transferred on , but unfortunately he developed worsening lactic acidosis and septic shock, requiring IVF's with bicarb and multipressor support. Since that time, as of today, although his lactic acid is still elevated, he has been weaned down to one pressor, and his WBC is trending down (although still elevated overall). FINAL DIAGNOSES: As follows: 1. Severe sepsis with shock secondary to multifocal pneumonia and decubitus ulcer infection, still on pressors, now on minimal pressor support. 2. Decubitus wound ulcer as colonizer and multidrug resistant organism. 3. Patient was stable for diverting colostomy and debridement and is not thought to improve quality of life post-procedure. 4. Quadriplegia secondary to history of C2 fracture. 5. Chronic ventilator dependent respiratory failure secondary to quadriplegia. 6. Chronic congestive heart failure. 7. History of Clostridium difficile infection. 8. Tobacco use. 9. Hypothyroidism. 10. Depression. 11. Anemia of chronic disease, likely superimposed on chronic blood loss from severe decubiti. 12. Diet controlled diabetes type 2 with acute tachycardia based on steroid therapy. 13. Persistent tachycardia, likely secondary to shock. DISPOSITION: The patient is to be transferred to his capitated facility, [facility], for continued management. DIET: The patient is on tube feeds with Diabetisource at 35 mL per hour. Note that this is lower than the recommended dietitian rate; however, the patient is extremely high risk for aspiration and residue and has been tolerating this volume without difficulty. DISCHARGE MEDICATIONS: 1. Cancidas 50 mg q.24h. IV. 2. Coly-Mycin 75 mg IV q.12h. 3. Linezolid 600 mg q.12. 4. Flagyl 500 p.o. q. 8. 5. Nystatin 5 mL p.o. q.i.d. 6. Tobramycin nebulizers 100 mg b.i.d. 7. Albuterol. 8. Ipratropium q.6h. scheduled and q.2h. p.r.n. 9. Ferrous sulfate 325 via G-tube t.i.d. 10. Lipitor 20 mg via G-tube at bedtime. 11. ____ via G-tube daily. 12. Grinnell 326 q.6h. p.r.n. 13. Lorazepam 1 mg via G-tube q.4 p.r.n. 14. Ambien 10 mg via G-tube at bedtime p.r.n. 15. Calcium carbonate 500 mg G-tube b.i.d. 16. Jabari-Synephrine titrate to keep mean arterial pressure greater than 65. 17. Zinc sulfate 220 mg via G-tube daily. 18. Colace 250 mg via G-tube b.i.d. 19. Famotidine 250 mg via G-tube daily. 20. Floranex 1 tab via G-tube t.i.d. 21. Zofran 4 mg IV q.6h. p.r.n. 22. Lantus 15 units subq daily. 23. Levothyroxine 75 mcg p.o. daily. Overall, prognosis is poor. DISCHARGE CONDITION: Stable on ACLS. Time is 55 minutes. Home Meds Reported Medications Amino Acids/Protein Hydrolys (PRO-STAT LIQUID) 30 Ml Liquid.pkt, 30 ML GTB DAILY SUGAR FREE 07/31/16 Ondansetron Hcl* (Zofran*) 4 Mg Tab, 4 MG GTB Q4H Y for NAUSEA AND OR VOMITING, TAB 07/31/16 Zinc Sulfate* (Zinc Sulfate*) 220 Mg Cap, 220 MG GTB DAILY, CAP 07/31/16 Multivitamin (MULTI VITAMIN DAILY) 1 Each Tablet, 1 TAB GTB DAILY, TAB 07/31/16 Atorvastatin Calcium* (Atorvastatin Calcium*) 20 Mg Tablet, 20 MG GTB QHS, #30 TAB 07/31/16 Ascorbic Acid* (Vitamin C*) 500 Mg Capsule.sa, 500 MG GTB DAILY, CAP 07/31/16 Zolpidem Tartrate* (Ambien*) 10 Mg Tablet, 10 MG GTB QHS Y for INSOMNIA, TAB 07/31/16 Ipratropium-Albuterol (Ipratropium-Albuterol) 0.5-3 Mg/3 Ml Ampul.neb, 3 ML INHALATION Q2HWA Y for SHORTNESS OF BREATH, #30 VIAL 07/31/16 Clonidine Hcl* (Clonidine Hcl*) 0.1 Mg Tab, 0.1 MG GTB Q6 Y for ELEVATED BLOOD PRESSURE, TAB 07/31/16 Acetaminophen* (Acetaminophen*) 650 Mg Tablet, 650 MG GTB PRN Y for PAIN AND OR ELEVATED TEMP, #30 TAB 07/31/16 Escitalopram Oxalate* (Lexapro*) 10 Mg Tablet, 10 MG GTB DAILY, #30 TAB 07/31/16 Docusate Sodium* (Colace* Liq) 50 Mg/5 Ml Liquid, 250 MG GTB BID, EA 07/31/16 Magnesium Hydroxide* (Milk Of Magnesia*) 400 Mg/5 Ml Oral.susp, 30 ML DAILY Y for CONSTIPATION, ML 07/31/16 Lorazepam* (Lorazepam*) 1 Mg Tablet, 1 MG GTB Q4H WHILE AWAKE Y for ANXIETY, # 30 TAB 07/31/16 Insulin Regular, Human (Humulin R) 100 Unit/1 Ml Vial, 0 IJ, VIAL 0-120 = 0 UNITS 121-150= 0 UNITS 151-200 = 1 UNIT 201-250 = 2 UNITS 251-300 = 3 UNITS 301-350 = 4 UNITS 351-400 = 5 UNITS ABOVE 400 6 UNITS 07/31/16 Insulin Detemir (Levemir) 100 Unit/1 Ml Vial, 10 UNIT SC Q12, VIAL 07/31/16 Hydrocodone/Acetaminophen (Grinnell 10-325 Tablet) 1 Each Tablet, 1 EACH GTB Q6 Y for SEVERE PAIN LEVEL 7-10, TAB 07/31/16 Ferrous Sulfate (Ferrous Sulfate) 220 Mg/5 Ml Solution, 325 MG GTB TID 07/31/16 Calcium Carbonate ([id number]) 500 Mg Tablet, 500 MG GTB BID, TAB 07/31/16 Pending Labs Laboratory Tests Test 09/09/16 17:22 09/09/16 18:01 09/09/16 18:55 09/09/16 20:07 Bedside Glucose 73mg/dL (70-220) 77mg/dL (70-220) 73mg/dL (70-220) 82mg/dL (70-220) Test 09/09/16 21:00 09/09/16 22:08 09/09/16 22:10 09/09/16 23:01 Bedside Glucose 89mg/dL (70-220) 155mg/dL (70-220) 141mg/dL (70-220) 151mg/dL (70-220) Test 09/10/16 00:01 09/10/16 01:00 09/10/16 01:59 09/10/16 03:14 Bedside Glucose 152mg/dL (70-220) 147mg/dL (70-220) 137mg/dL (70-220) 162mg/dL (70-220) Test 09/10/16 04:02 09/10/16 05:00 09/10/16 05:02 09/10/16 06:00 Bedside Glucose 164mg/dL (70-220) 165mg/dL (70-220) 165mg/dL (70-220) White Blood Count 20.310^3/ul (4.8-10.8) Red Blood Count 3.1910^6/ul (4.70-6.10) Hemoglobin 8.7g/dl (14.0-18.0) Hematocrit 28.2% (42.0-52.0) Mean Corpuscular Volume 88.4fl (82.0-101.0) Mean Corpuscular Hemoglobin 27.3pg (29.0-33.0) Mean Corpuscular Hemoglobin Concent 30.9g/dl (32.0-37.0) Red Cell Distribution Width 18.6% (11.5-14.5) Platelet Count 29604^3/UL (140-415) Mean Platelet Volume 10.8fl (7.4-10.4) Neutrophils % 91.8% (39.0-77.0) Lymphocytes % 3.4% (15.0-51.0) Monocytes % 3.7% (0.0-11.0) Eosinophils % 0.0% (0.0-7.0) Basophils % 0.1% (0.0-2.0) Nucleated Red Blood Cells % 0.2/100WBC (0.0-0.0) Neutrophils # 18.610^3/ul (1.6-7.5) Lymphocytes # 0.710^3/ul (0.8-2.9) Monocytes # 0.810^3/ul (0.3-0.9) Eosinophils # 0.010^3/ul (0.0-0.5) Basophils # 0.010^3/ul (0.0-0.1) Nucleated Red Blood Cells # 0.010^3/ul (0.0-0.0) Prothrombin Time 17.2Sec (12.2-14.2) Prothrombin Time Ratio 1.3 INR International Normalized Ratio 1.40 Activated Partial Thromboplast Time 35.4Sec (25.0-35.0) Blood Gas Specimen Source Blood arterial Arterial Blood Date Drawn 09/10/2016 5:00:02 AM Arterial Blood pH (Temp corrected) 7.488 (7.350-7.450) Arterial Blood pCO2 (Temp correct) 34.5mmhg (35-45) Arterial Blood pO2 (Temp corrected) 77.3mmHG (80-100.0) Arterial Blood HCO3 25.6mmol/L (22.0-26.0) Arterial Blood Base Excess 2.4mmol/L (-3.0-3) Arterial Blood Oxygen Saturation 94.9mmHG (95.0-98.0) Colton Test ACCEPTAB Arterial Blood Gas Puncture Site Right Radial Arterial Blood Carboxyhemoglobin 0.3% (0.0-3.0) Arterial Blood Methemoglobin 0.2% (0.0-1.5) Blood Gas A-a O2 Differential 312.6mmHg (7.0-24.0) Oxyhemoglobin Percent 94.4% (93.0-99.0) Total Hemoglobin 10.7g/dl (12.0-18.0) Blood Gas Temperature 37.0C Blood Gas Respiration Rate 28.0 Blood Gas Actual Respiration Rate 28 Blood Gas Modality VENT - AC FiO2 60.0% Blood Gas Tidal Volume 500.0mL Blood Gas Low PEEP Setting 8.0cmH2O Blood Gas Inspiratory Pressure 44.0 Blood Gas Notified Whom BR Blood Gas Notified Time 09/10/2016 5:05:48 AM Sodium Level 137mmol/L (135-144) Potassium Level 2.8mmol/L (3.5-5.1) Chloride Level 96mmol/L (97-110) Carbon Dioxide Level 29mmol/L (21-31) Anion Gap 15 (8-16) Blood Urea Nitrogen 19mg/dl (7-20) Creatinine 0.32mg/dl (0.61-1.24) Glucose Level 163mg/dl (70-220) Lactic Acid Level 4.8mmol/L (0.5-2.2) Calcium Level 7.6mg/dl (8.4-10.2) Test 09/10/16 06:57 09/10/16 08:11 09/10/16 09:07 09/10/16 10:02 Bedside Glucose 139mg/dL (70-220) 143mg/dL (70-220) 184mg/dL (70-220) 193mg/dL (70-220) Test 09/10/16 10:59 09/10/16 12:00 09/10/16 14:01 09/10/16 16:12 Bedside Glucose 156mg/dL (70-220) 163mg/dL (70-220) 159mg/dL (70-220) 157mg/dL (70-220) DARON FARRELL Sep 10, 2016 17:09
[2016-09-10] MEDS: POTASSIUM CHLORIDE 20 MEQ POWDER FOR ORAL SOLN GTB SCH (21:44)
[2016-09-10] MEDS ORDERED: ATROPINE 1 MG/10 ML SYRINGE ONE (22:41)
== END 2016-09-11 00:35 | disposition short-term general hospital (02) | DRG 870 ==
LOC: EDUNIT# 14:01 → E/R 14:01 → TEL 14:20 → ICU 08-28 08:05 → TEL 09-07 16:33 → ICU 09-07 16:42
PROVIDERS: ADMIT Internal Medicine; ATTEND Internal Medicine
PROC: 5A1955Z Respiratory Ventilation, Greater than 96 Consecutive Hours (ICD-10-PCS; principal; 2016-07-31)
PROC: 30233N1 Transfusion of Nonautologous Red Blood Cells into Peripheral Vein, Percutaneous Approach (ICD-10-PCS; 2016-08-06)
PROC: 0BJ08ZZ Inspection of Tracheobronchial Tree, Via Natural or Artificial Opening Endoscopic (ICD-10-PCS; 2016-08-23)
PROC: 0CJS8ZZ Inspection of Larynx, Via Natural or Artificial Opening Endoscopic (ICD-10-PCS; 2016-09-08)
PROC: 0BJ18ZZ Inspection of Trachea, Via Natural or Artificial Opening Endoscopic (ICD-10-PCS; 2016-09-08)
PROC: 0B21XFZ Change Tracheostomy Device in Trachea, External Approach (ICD-10-PCS; 2016-09-08)
DX: A41.9 Sepsis, unspecified organism (principal); R65.21 Severe sepsis with septic shock; G82.50 Quadriplegia, unspecified; J18.9 Pneumonia, unspecified organism; I50.23 Acute on chronic systolic (congestive) heart failure; L89.154 Pressure ulcer of sacral region, stage 4; L89.324 Pressure ulcer of left buttock, stage 4; L89.224 Pressure ulcer of left hip, stage 4; L89.214 Pressure ulcer of right hip, stage 4; L89.314 Pressure ulcer of right buttock, stage 4; E87.0 Hyperosmolality and hypernatremia; N39.0 Urinary tract infection, site not specified; I42.9 Cardiomyopathy, unspecified; J96.11 Chronic respiratory failure with hypoxia; E46 Unspecified protein-calorie malnutrition; B37.49 Other urogenital candidiasis; K52.1 Toxic gastroenteritis and colitis; J95.09 Other tracheostomy complication; S12.100S Unspecified displaced fracture of second cervical vertebra, sequela; Y95 Nosocomial condition; N31.9 Neuromuscular dysfunction of bladder, unspecified; E03.9 Hypothyroidism, unspecified; D50.0 Iron deficiency anemia secondary to blood loss (chronic); F32.9 Major depressive disorder, single episode, unspecified; Z93.1 Gastrostomy status; W11.XXXS Fall on and from ladder, sequela; L89.810 Pressure ulcer of head, unstageable; B96.5 Pseudomonas (aeruginosa) (mallei) (pseudomallei) as the cause of diseases classified elsewhere; B96.1 Klebsiella pneumoniae [K. pneumoniae] as the cause of diseases classified elsewhere; B95.2 Enterococcus as the cause of diseases classified elsewhere; Z16.24 Resistance to multiple antibiotics; Y83.8 Other surgical procedures as the cause of abnormal reaction of the patient, or of later complication, without mention of misadventure at the time of the procedure; T36.8X5A Adverse effect of other systemic antibiotics, initial encounter; Y92.230 Patient room in hospital as the place of occurrence of the external cause; E11.65 Type 2 diabetes mellitus with hyperglycemia; B96.4 Proteus (mirabilis) (morganii) as the cause of diseases classified elsewhere; R13.10 Dysphagia, unspecified; Z68.26 Body mass index [BMI] 26.0-26.9, adult; Z87.891 Personal history of nicotine dependence
CPT/HCPCS: 36415; 36430; 36600; 71010; 71250; 71275; 72125; 74176; 78806; 80048; 80053; 80061; 80069; 80076; 80200; 80202; 81001; 81003; 82306; 82533; 82550; 82553; 82803; 82962; 83036; 83540; 83605; 83735; 84100; 84145; 84436; 84439; 84443; 84479; 84484; 85014; 85018; 85025; 85378; 85610; 85651; 85730; 86078; 86140; 86644; 86850; 86900; 86901; 86920; 87040; 87070; 87075; 87081; 87086; 87400; 89220; 90686; 92610; 93005; 93306; 93970; 93971; 94002; 94003; 94640; 96365; 96366; 96367; 96368; 96372; 96375; 96376; J1940; J2430; A9570; J0131; J0461; J0692; J1170; J1265; J1644; J1650; J1720; J1815; J2060; J2185; J2270; J2310; J2370; J2405; J2543; J2916; J2997; J3010; J3260; J3370; J3475; J3480; J7030; J7040; J7042; J7050; J7060; J7070; J7120; P9016; P9047; Q9967